=== PATIENT | female | born 1945 | race Caucasian/White ===

== ENCOUNTER → 2018-04-13 10:43 | Outpatient (CLI) | payer OTHER, SELFPAY ==
[2018-04-13 12:12] LABS: Alanine Aminotransferase 25 IU/L (9-52); Albumin Globulin Ratio 1.5 (1.0-2.8); Alkaline Phosphatase 51 U/L (38-126); Aspartate Aminotransferase 46 IU/L (14-36); BUN Creatinine Ratio 25.5 (6-22); Bilirubin Total 0.5 mg/dL (0.2-1.3); Blood Urea Nitrogen 28 mg/dL (7-17); Calcium 9.6 mg/dL (8.4-10.2); Carbon Dioxide 27 mmol/L (22-32); Chloride 100 mmol/L (98-107); Estimated Glomerular Filt Rate 49.1 mL/min (>60); Globulin 2.6 g/dL (1.7-4.1); Glucose 183 mg/dL (80-110); HEMOLYSIS < 15 (0-50); Potassium 4.7 mmol/L (3.4-5.1); Sodium 138 mmol/L (137-145); Total Protein 6.6 g/dL (6.3-8.2)
== END ==
PROVIDERS: PCP Family Medicine; Referring Provider Internal Medicine Rheumatology; Visit Provider Specialist/Technologist Athletic Trainer
DX: M06.09 Rheumatoid arthritis without rheumatoid factor, multiple sites (principal)
CPT/HCPCS: 36415; 80053

== ENCOUNTER → 2018-05-22 10:50 | Outpatient (CLI) | payer OTHER, MEDICARE, SELFPAY ==
[2018-05-22 12:32] LABS: Add Manual Diff / Slide Review NO; Basophils Percent Auto 0.4 % (0-2); Eosinophils Percent Auto 4.6 % (2-4); Hematocrit 35.6 % (36-46); Hemoglobin 11.7 g/dL (12.0-16.0); Lymphocytes Percent Auto 25.4 % (25-40); Mean Corpuscular Hemoglobin 32.3 PG (26-34); Mean Corpuscular Volume 97.7 fL (80-100); Monocytes Percent Auto 9.8 % (3-14); Neutrophils Absolute Auto 2900 /uL (3000-5900); Neutrophils Percent Auto 59.8 % (50-75); Platelet Count 190 X10^3/uL (150-400); Red Blood Cell Count 3.64 X10^6/uL (4.0-5.2); Red Cell Distribution Width 14.1 % (11.6-14.8); White Blood Cell Count 4.9 X10^3/uL (4.5-11.0)
[2018-05-22 12:44] LABS: Hemoglobin A1C% w Est Avg Glu 5.6 % (4.0-6.0)
[2018-05-22 13:01] LABS: Alanine Aminotransferase 30 IU/L (9-52); Albumin 4.1 g/dL (3.5-5.0); Albumin Globulin Ratio 1.6 (1.0-2.8); Alkaline Phosphatase 53 U/L (38-126); Aspartate Aminotransferase 52 IU/L (14-36); BUN Creatinine Ratio 24.2 (6-22); Bilirubin Total 0.4 mg/dL (0.2-1.3); Blood Urea Nitrogen 29 mg/dL (7-17); Calcium 9.5 mg/dL (8.4-10.2); Carbon Dioxide 27 mmol/L (22-32); Chloride 102 mmol/L (98-107); Cholesterol 145 mg/dL (140-199); Estimated Glomerular Filt Rate 44.4 mL/min (>60); Globulin 2.6 g/dL (1.7-4.1); Glucose 167 mg/dL (80-110); HDL Cholesterol 49 mg/dL (40-60); HEMOLYSIS < 15 (0-50); LDL Cholesterol Calculated 65 mg/dL (<100); Potassium 4.4 mmol/L (3.4-5.1); Sodium 137 mmol/L (137-145); Total Protein 6.7 g/dL (6.3-8.2); Triglycerides 154 mg/dL (35-150)
[2018-05-22 13:18] LABS: Free T3, Triiodothyronine Free 2.94 pg/mL (2.77-5.27); Free T4, Direct Thyroxine 1.84 ng/dL (0.78-2.19)
== END ==
PROVIDERS: PCP Family Medicine; Visit Provider Family Medicine
DX: I10 Essential (primary) hypertension (principal); L57.0 Actinic keratosis; E78.5 Hyperlipidemia, unspecified; R80.9 Proteinuria, unspecified; E03.9 Hypothyroidism, unspecified; E11.9 Type 2 diabetes mellitus without complications
CPT/HCPCS: 36415; 80053; 80061; 81001; 83036; 84439; 84481; 85025

== ENCOUNTER → 2018-07-26 10:21 | Outpatient (CLI) | payer OTHER, MEDICARE, SELFPAY ==
[2018-07-26 11:26] LABS: Appearance Urine UA CLEAR; Bilirubin Urine UA NEGATIVE (NEGATIVE); Color Urine UA YELLOW; Glucose Urine UA NEGATIVE (Normal); Ketones Urine UA NEGATIVE (NEGATIVE); Leukocyte Esterase Urine UA NEGATIVE (NEGATIVE); Nitrite Urine UA Negative (Negative); Occult Blood Urine UA NEGATIVE (Negative); Protein Urine UA TRACE (Negative); Specific Gravity Urine UA 1.025 (1.000-1.035); Urobilinogen Urine UA 0.2 E.U./dL (0.2)
[2018-07-26 11:29] LABS: Add Manual Diff / Slide Review NO; Basophils Percent Auto 0.2 % (0-2); Eosinophils Percent Auto 3.7 % (2-4); Hematocrit 37.3 % (36-46); Hemoglobin 12.3 g/dL (12.0-16.0); Lymphocytes Percent Auto 22.9 % (25-40); Mean Corpuscular Hemoglobin 31.7 PG (26-34); Mean Corpuscular Volume 96.1 fL (80-100); Monocytes Percent Auto 9.5 % (3-14); Neutrophils Absolute Auto 2600 /uL (3000-5900); Neutrophils Percent Auto 63.7 % (50-75); Platelet Count 197 X10^3/uL (150-400); Red Blood Cell Count 3.88 X10^6/uL (4.0-5.2); Red Cell Distribution Width 14.2 % (11.6-14.8); White Blood Cell Count 4.1 X10^3/uL (4.5-11.0)
[2018-07-26 11:41] LABS: Erythrocyte Sedimentation Rate 8 MM/HR (0-20)
[2018-07-26 11:47] LABS: Creatinine Urine Random 146.5 mg/dL
[2018-07-26 11:48] LABS: Alanine Aminotransferase 21 IU/L (9-52); Albumin 4.1 g/dL (3.5-5.0); Albumin Globulin Ratio 1.5 (1.0-2.8); Alkaline Phosphatase 42 U/L (38-126); Aspartate Aminotransferase 43 IU/L (14-36); Bilirubin Total 0.4 mg/dL (0.2-1.3); Blood Urea Nitrogen 24 mg/dL (7-17); C-Reactive Protein Quant < 0.5 mg/dL (<1.0); Calcium 9.6 mg/dL (8.4-10.2); Carbon Dioxide 26 mmol/L (22-32); Chloride 104 mmol/L (98-107); Estimated Glomerular Filt Rate 44.4 mL/min (>60); Globulin 2.8 g/dL (1.7-4.1); Glucose 162 mg/dL (80-110); HEMOLYSIS < 15 (0-50); Potassium 4.2 mmol/L (3.4-5.1); Sodium 141 mmol/L (137-145); Total Protein 6.9 g/dL (6.3-8.2)
[2018-07-26 13:49] LABS: Microalbumi Creatinin Ratio Ur 21.8 ug/mg CR (<30); Microalbumin Urine Random 3.2 mg/dL (0-1.6)
== END ==
PROVIDERS: PCP Family Medicine; Visit Provider Specialist/Technologist Athletic Trainer
DX: M06.09 Rheumatoid arthritis without rheumatoid factor, multiple sites (principal); E11.9 Type 2 diabetes mellitus without complications; E78.5 Hyperlipidemia, unspecified; I10 Essential (primary) hypertension
CPT/HCPCS: 36415; 80053; 81003; 82043; 82570; 85025; 85651; 86140

== ENCOUNTER → 2019-01-15 09:43 | Outpatient (CLI) | payer OTHER, MEDICARE, SELFPAY ==
[2019-01-15 10:33] LABS: Add Manual Diff / Slide Review NO; Basophils Absolute Auto 0 /uL (0-100); Basophils Percent Auto 0.3 % (0-2); Eosinophils Absolute Auto 300 /uL (0-450); Eosinophils Percent Auto 7.7 % (2-4); Hematocrit 36.9 % (36-46); Lymphocytes Absolute Auto 1100 /uL (1100-4500); Lymphocytes Percent Auto 27.8 % (25-40); Mean Corpuscular HGB Conc 32.5 % (30-36); Mean Corpuscular Hemoglobin 31.2 PG (26-34); Monocytes Absolute Auto 500 /uL (0-900); Monocytes Percent Auto 11.9 % (3-14); Neutrophils Absolute Auto 2000 /uL (1500-7000); Neutrophils Percent Auto 52.3 % (50-75); Platelet Count 220 X10^3/uL (150-400); Red Blood Cell Count 3.84 X10^6/uL (4.0-5.2); Red Cell Distribution Width 14.6 % (11.6-14.8); White Blood Cell Count 3.9 X10^3/uL (4.5-11.0)
[2019-01-15 10:35] LABS: Hemoglobin A1C% w Est Avg Glu 5.7 % (4.0-6.0)
[2019-01-15 10:50] LABS: Alanine Aminotransferase 28 IU/L (9-52); Albumin Globulin Ratio 1.5 (1.0-2.8); Alkaline Phosphatase 57 U/L (38-126); Aspartate Aminotransferase 41 IU/L (14-36); Bilirubin Total 0.4 mg/dL (0.2-1.3); Blood Urea Nitrogen 22 mg/dL (7-17); Calcium 9.8 mg/dL (8.4-10.2); Carbon Dioxide 25 mmol/L (22-32); Chloride 105 mmol/L (98-107); Cholesterol 140 mg/dL (140-199); Globulin 2.6 g/dL (1.7-4.1); Glucose 155 mg/dL (80-110); HDL Cholesterol 49 mg/dL (40-60); HEMOLYSIS < 15 (0-50); LDL Cholesterol Calculated 56 mg/dL (<100); Potassium 5.5 mmol/L (3.4-5.1); Sodium 140 mmol/L (137-145); Total Protein 6.6 g/dL (6.3-8.2); Triglycerides 175 mg/dL (35-150)
[2019-01-15 11:21] LABS: Thyroid Stimulating Hormone 2.17 uIU/mL (0.47-4.68)
== END ==
PROVIDERS: PCP Family Medicine; Visit Provider Family Medicine
DX: E03.9 Hypothyroidism, unspecified (principal); E11.9 Type 2 diabetes mellitus without complications; E78.5 Hyperlipidemia, unspecified; I10 Essential (primary) hypertension; Z51.81 Encounter for therapeutic drug level monitoring
CPT/HCPCS: 36415; 80053; 80061; 83036; 84443; 85025

== ENCOUNTER → 2019-04-16 09:34 | Outpatient (CLI) | payer OTHER, SELFPAY ==
[2019-04-16 11:12] LABS: Add Manual Diff / Slide Review NO; Basophils Absolute Auto 0 /uL (0-100); Basophils Percent Auto 0.2 % (0-2); Eosinophils Absolute Auto 200 /uL (0-450); Eosinophils Percent Auto 3.4 % (2-4); Hematocrit 36.1 % (36-46); Hemoglobin 11.8 g/dL (12.0-16.0); Lymphocytes Absolute Auto 1300 /uL (1100-4500); Lymphocytes Percent Auto 28.7 % (25-40); Mean Corpuscular HGB Conc 32.6 % (30-36); Mean Corpuscular Hemoglobin 31.9 PG (26-34); Mean Corpuscular Volume 97.8 fL (80-100); Monocytes Absolute Auto 600 /uL (0-900); Monocytes Percent Auto 13.4 % (3-14); Neutrophils Absolute Auto 2400 /uL (1500-7000); Neutrophils Percent Auto 54.3 % (50-75); Platelet Count 192 X10^3/uL (150-400); Red Blood Cell Count 3.69 X10^6/uL (4.0-5.2); White Blood Cell Count 4.4 X10^3/uL (4.5-11.0)
[2019-04-16 11:40] LABS: Hemoglobin A1C% w Est Avg Glu 5.1 % (4.0-6.0)
[2019-04-16 11:44] LABS: Erythrocyte Sedimentation Rate 8 MM/HR (0-20)
[2019-04-16 11:57] LABS: Alanine Aminotransferase 15 IU/L (9-52); Albumin 4.1 g/dL (3.5-5.0); Albumin Globulin Ratio 1.6 (1.0-2.8); Alkaline Phosphatase 53 U/L (38-126); Aspartate Aminotransferase 41 IU/L (14-36); Bilirubin Total 0.5 mg/dL (0.2-1.3); Blood Urea Nitrogen 26 mg/dL (7-17); Carbon Dioxide 24 mmol/L (22-32); Chloride 107 mmol/L (98-107); Estimated Glomerular Filt Rate 40.4 mL/min (>60); Globulin 2.6 g/dL (1.7-4.1); Glucose 145 mg/dL (80-110); HEMOLYSIS < 15 (0-50); Potassium 5.3 mmol/L (3.4-5.1); Sodium 141 mmol/L (137-145); Total Protein 6.7 g/dL (6.3-8.2)
[2019-04-16 11:58] LABS: C-Reactive Protein Quant < 0.5 mg/dL (<1.0)
== END ==
PROVIDERS: Family Provider Family Medicine; PCP Family Medicine; Visit Provider Internal Medicine Rheumatology
DX: M06.09 Rheumatoid arthritis without rheumatoid factor, multiple sites (principal); E11.9 Type 2 diabetes mellitus without complications; I10 Essential (primary) hypertension
CPT/HCPCS: 36415; 80053; 83036; 85025; 85651; 86140

== ENCOUNTER 2019-05-28 08:39 | Emergency (ER) | payer OTHER, SELFPAY ==
--- NOTE | 2019-05-28 08:52 | ED.BACK ---
HPI - Back Pain/Injury General Chief Complaint: Back Pain/Injury Stated Complaint: back pain Time Seen by Provider: 05/28/19 08:40 Source: patient and family Mode of arrival: ambulatory Limitations: no limitations History of Present Illness HPI Narrative: 73-year-old female nonsmoker with history of back trouble presents with about a week of gradually worsening right lower lumbar pain with radiation to her right hip. She denies any trauma but states she frequently injured herself when wrestling her special needs child. She denies any numbness, tingling or extremity weakness. She denies any fever or chills. She takes no blood thinner. She has had lumbar surgeries in the past up at [facility] Complaint: back pain Onset (ago): day(s) Duration: constant Similar Symptoms Previously: Yes Location: lumbar spine Severity: severe Quality: sharp and aching Radiation: right leg Related Data Home Medications Medication Instructions Recorded Confirmed cranberry 1 cap PO BID #0 10/04/11 05/08/19 multivitamin 1 tab PO DAILY #0 10/04/11 05/28/19 Probiotic 1 cap PO DAILY #0 01/15/13 05/08/19 aspirin 81 mg PO DAILY #0 03/19/13 05/08/19 Imodium A-D 1 dose PO PRN PRN #0 07/04/17 05/08/19 cholecalciferol (vitamin D3) 2,000 units PO DAILY #0 07/04/17 05/08/19 [Vitamin D3] leflunomide 20 mg PO QDAY #0 07/04/17 05/28/19 sulfasalazine 1,500 mg PO BID #0 07/04/17 05/28/19 acetaminophen 500 mg tablet 500 mg PO Q6H PRN 11/20/18 05/28/19 leflunomide 10 mg tablet 10 mg PO DAILY 02/05/19 05/28/19 *B-D 3ML SYRINGE 1 ea MISCELLANEOUS SEE INSTRUCTIONS 05/28/19 05/28/19 atorvastatin [Lipitor] 10 mg PO BEDTIME 05/28/19 05/28/19 ciprofloxacin HCl [Cipro] 500 mg PO BEDTIME 05/28/19 05/28/19 fenofibrate 160 mg PO DAILY 05/28/19 05/28/19 gabapentin 300 mg PO BEDTIME 05/28/19 05/28/19 levothyroxine [Synthroid] 75 mcg PO DAILY 05/28/19 05/28/19 losartan 100 mg PO DAILY 05/28/19 05/28/19 nystatin 1 raymond TOPICAL DAILY 05/28/19 05/28/19 tofacitinib [Xeljanz] 10 mg PO DAILY 05/28/19 Previous Rx's Medication Instructions Recorded glucose test strips #100 each 11/28/18 albuterol sulfate HFA 90 2 puff INHALATION QID #8.5 gram 02/19/19 mcg/actuation aerosol inhaler fluticasone propionate 44 1 inhalation INHALATION BID #10.6 02/19/19 mcg/actuation HFA aerosol inhaler gram oxybutynin chloride 5 mg tablet 5 mg PO BID #180 tab 02/19/19 trazodone 50 mg tablet 50 mg PO BEDTIME PRN #30 tab 05/08/19 glipizide 10 mg tablet 5 mg PO DAILY #30 tab 05/27/19 metformin ER 500 mg 500 mg PO BID #60 tab 05/27/19 tablet,extended release 24 hr diazepam [Valium] 5 mg PO BID-QID PRN #10 tab 05/28/19 hydrocodone-acetaminophen 1 tab PO Q4-6H PRN #20 tab 05/28/19 ondansetron 4 mg PO TID-QID PRN #10 tab 05/28/19 Allergies Allergy/AdvReac Type Severity Reaction Status Date / Time All ocean foods Allergy Severe Hives, Uncoded 05/28/19 08:56 throat swelling FISH PROTEIN Allergy Mild Uncoded 05/28/19 08:56 Shellfish Allergy Unknown HIVES,THROAT Uncoded 05/28/19 08:56 SWELLIN TRAMADOL Allergy Unknown VOMITING Uncoded 05/28/19 08:56 PENICILLIN AdvReac Mild family has Uncoded 05/28/19 08:56 had issues with penicillin Review of Systems Constitutional Denies chills, Denies fever(s), Denies lethargy and Denies weakness Eyes Denies change in vision, Denies eye discharge, Denies irritation and Denies loss of vision ENT Ears, Nose, Mouth, and Throat: Denies change in voice, Denies neck pain and Denies sore throat Cardiovascular Denies chest pain, Denies irregular heart rhythm, Denies lightheadedness, Denies palpitations, Denies dyspnea, Denies dyspnea on exertion and Denies orthopnea Respiratory Denies cough, Denies dyspnea, Denies dyspnea on exertion and Denies wheezing Gastrointestinal Gastrointestinal: Denies abdominal pain, Denies change in bowel habits, Denies diarrhea, Denies nausea and Denies vomiting Genitourinary Denies hematuria, Denies flank pain, Denies urinary incontinence and Denies urinary urgency Musculoskeletal Reports abnormal gait, Reports back pain and Denies neck pain Integumentary/Breasts Denies pruritus, Denies erythema, Denies rash and Denies wounds Neurologic Reports abnormal gait, Denies confusion, Denies loss of vision and Denies weakness Psychiatric Denies anxiety, Denies confusion, Denies depression, Denies homicidal ideation and Denies suicidal ideation Endocrine Denies palpitations Hematologic/Lymphatic Denies easy bruising Allergic/Immunologic Denies wheezing [facility] Medical History Chronic back pain (Chronic Unknown) Hyperlipemia (Chronic Unknown) Hypertension (Chronic Unknown) Hypothyroidism (Chronic Unknown) Kidney disease (Chronic Unknown) Migraines (Chronic Unknown) Neuropathy (Chronic Unknown) Rheumatoid arthritis (Chronic Unknown) Carpal tunnel syndrome (Resolved Unknown) Chickenpox (Resolved Unknown) Colon polyps (Resolved Unknown) Measles (Resolved Unknown) Mumps (Resolved Unknown) Skin cancer (Resolved Unknown) Surgical History History of arthroscopy of right shoulder (Resolved 07/2012) History of carpal tunnel surgery (Resolved 1981) History of lumbar surgery (Resolved Unknown) Hx of appendectomy (Resolved 03/2017) Hx of cholecystectomy (Resolved 1983) Hx of hernia repair (Resolved 04/2011) Hx of laparoscopy (Resolved 03/2017) Hx of lithotripsy (Resolved ~03/2017) Hx of tubal ligation (Resolved 1976) Family History (Updated 08/08/17 @ 00:00 by Conversion Provider) Father Diabetes mellitus Mother Mental health problem Sister Cancer Brother No problems noted. Social History Smoking Status: Never smoker alcohol intake: current (Occasional) Family History Father Diabetes mellitus Mother Mental health problem Sister Cancer Brother No problems noted. Social History (Reviewed 05/28/19 @ 11:06 by PATRIC Ovalle Smoking Status: Never smoker alcohol intake: current (Occasional) Exam Narrative Exam Narrative: GENERAL: 73-year-old female appears stated age, obviously uncomfortable with antalgic gait, using her cane HEAD: Atraumatic. Normocephalic. No temporal or scalp tenderness. EYES: Pupils equal round and reactive. Extraocular motions intact. No scleral icterus. No injection or drainage. ENT: Nose without bleeding, purulent drainage or septal hematoma. Throat without erythema, tonsillar hypertrophy or exudate. Uvula midline. Airway patent. NECK: Trachea midline. No JVD or lymphadenopathy. Supple, nontender, no meningeal signs. CARDIOVASCULAR: Regular rate and rhythm without murmurs, gallops, or rubs. RESPIRATORY: Clear to auscultation. Breath sounds equal bilaterally. No wheezes, rales, or rhonchi. GASTROINTESTINAL: Abdomen soft, non-tender, nondistended. No hepato-splenomegaly, or palpable masses. No guarding. EXTREMITIES: No clubbing, cyanosis, or edema. No joint tenderness, effusion, or edema noted. BACK: reproduceable tenderness to palpation, no erythema, crepitus, warmth or induration NEURO: AOx3. Normal sensation, strength 5/5, no saddle anesthesia, patellar reflex is 1+ bilaterally SKIN: No rash or erythema. Initial Vital Signs Initial Vital Signs: Vital Signs Temperature 97.3 F L 05/28/19 08:57 Pulse Rate 107 H 05/28/19 08:57 Respiratory Rate 18 05/28/19 08:57 Blood Pressure 203/83 H 05/28/19 08:57 Pulse Oximetry 95 05/28/19 08:57 Course Orders Ordered: ED Orders 05/28/19 09:17 MR lumbar spine wo con Stat Discontinued Medications Lorazepam (Ativan) 1 mg IM NOW ONE Stop: 05/28/19 09:18 Last Admin: 05/28/19 09:31 Dose: 1 mg Vital Signs - 8 hr 05/28/19 08:57 05/28/19 10:32 Temperature 97.3 F L Pulse Rate 107 H 95 H Respiratory Rate 18 18 Blood Pressure 203/83 H Blood Pressure [Right Arm] 145/50 H Pulse Oximetry 95 94 MDM - Back Pain/Injury Imaging Data MRI - lumbar: Radiologist's impression: [address] [address] Magnetic Resonance Report Signed Patient: Shirin Manzanares LMR#: [id number] : 7Acct:[id number] Age/Sex: 73 / FDate of Service: 05/28/19 Loc: ED Accession Number: [id number] Procedure: MR lumbar spine wo con Ordering Provider: Bennie Rodriguez D.O. PROCEDURE: MR LUMBAR SPINE WO CON INDICATIONS: severe pain, hx surgery, loss bowel TECHNIQUE: Noncontrast sagittal T1 spin echo and T2 fast echo, sagittal STIR, axial T1 and T2 fast spin echo through the lumbar spine. In cases with scoliosis, additional coronal T2 fast spin echo may be performed. COMPARISON: [facility], MR, L-SPINE WITHOUT CONTRAST, 02/05/2013, 14:05. [facility], CT, CT ABDOMEN PELVIS WITHOUT CONTRAST, 02/15/2018, 12:18. FINDINGS: Image quality: Excellent. Alignment and Curvature: There is straightening of normal lumbar lordosis. Bone Marrow: Patient is status post transpedicular fusion and laminectomy at L4-5 level with intervertebral spacer placement and partial bony union at this level. There is no gross marrow edema. No acute compression fracture. Spinal Cord: Conus medullaris terminates at the L1 level. Visualized cord demonstrates normal signal and size. Paraspinous Soft Tissues: No paravertebral masses. L1-L2: There is significant loss of intervertebral disc space. Central to right-sided disc herniation and extrusion is seen. Bilateral facet arthrosis is also noted. There is mild central canal stenosis and moderate to severe right-sided neuroforaminal narrowing. There is compression of the exiting right L1 nerve root. L2-L3: Near-complete loss of intervertebral disc space and degenerative end plate changes are seen. Broad-based disc bulge and bilateral facet arthrosis is seen. There is moderate central canal stenosis and moderate to severe bilateral neuroforaminal narrowing. There is compression of bilateral exiting L2 nerve roots. L3-L4: Significant loss of intervertebral disc height is seen with degenerative endplate changes. Broad-based disc bulge and bilateral facet arthrosis is seen. Superimposed left lateral disc herniation is noted causing mild central canal stenosis and severe left-sided neuroforaminal narrowing. There is compression of exiting left L3 nerve root. L4-L5: Partial bony union is noted. Bilateral facet arthrosis is seen. No significant central canal stenosis L5-S1: Mild diffuse disc bulge and bilateral facet arthrosis is seen. Left lateral disc herniation is also noted with mild to moderate left-sided neuroforaminal narrowing and likely compression of left exiting L5 nerve root. IMPRESSION: 1. Post-fusion changes at L4-5 level. No acute compression fracture or spondylolisthesis. No gross marrow edema. 2. Extensive degenerative disc bulge and bilateral facet arthrosis throughout lumbar spine causing [id number] central canal stenosis and moderate to severe bilateral neuroforaminal narrowing as described in detail above. Dictated by: Jacinto Rodriguez M.D. on 05/28/2019 at 10:19 Approved by: Jacinto Rodriguez M.D. on 05/28/2019 at 10:52 Discharge Plan Departure Patient Disposition: Home Clinical Impression: Strain of lumbar region, Central stenosis of spinal canal Instructions: DI for Low Back Pain Activity Restrictions/Additional Instructions: *You have been diagnosed with [ acute on chronic back pain. MRI shows multiple areas of discs causing trouble ] *What to do: *Take medications as directed *Follow up with your primary care provider in 2-3 days, call for an appointment. Let them know you were seen in the Emergency Department and that we ask that you be seen in follow up. Additionally, you have been given contact info for [facility] *Return to ER if you should have any new, worsening or concerning symptoms, such as [increasing pain, fever, weakness of the extremities, loss of control of bowel or bladder for, other bothersome symptoms] Prescriptions: New hydrocodone-acetaminophen 5-325 mg tablet 1 tab PO Q4-6H PRN (Reason: pain) Qty: 20 RF: 0 ondansetron 4 mg tablet,disintegrating 4 mg PO TID-QID PRN (Reason: nausea and vomiting) Qty: 10 RF: 0 diazepam [Valium] 5 mg tablet 5 mg PO BID-QID PRN (Reason: muscle spasm) Qty: 10 RF: 0 No Action acetaminophen [Tylenol Extra Strength] 500 mg tablet 500 mg PO Q6H PRN (Reason: pain) RF: 0 leflunomide 10 mg tablet 10 mg PO DAILY RF: 0 cranberry 1 cap PO BID Qty: 0 RF: 0 multivitamin Tablet 1 tab PO DAILY Qty: 0 RF: 0 Probiotic 1 cap PO DAILY Qty: 0 RF: 0 aspirin 81 MG tablet,delayed release (DR/EC) 81 mg PO DAILY Qty: 0 RF: 0 Imodium A-D 1 dose PO PRN PRN (Reason: Diarrhea) Qty: 0 RF: 0 cholecalciferol (vitamin D3) [Vitamin D3] 2,000 unit Capsule 2,000 units PO DAILY Qty: 0 RF: 0 sulfasalazine 500 MG tablet 1,500 mg PO BID Qty: 0 RF: 0 leflunomide 20 MG tablet 20 mg PO QDAY Qty: 0 RF: 0 glucose test strips Qty: 100 RF: 3 albuterol sulfate [ProAir HFA] 90 mcg/actuation HFA aerosol inhaler 2 puff INHALATION QID Qty: 8.5 RF: 3 Flovent HFA 44 mcg/actuation HFA aerosol inhaler 1 inhalation INHALATION BID Qty: 10.6 RF: 3 oxybutynin chloride 5 mg tablet 5 mg PO BID Qty: 180 RF: 1 glipizide 10 mg tablet 5 mg PO DAILY Qty: 30 RF: 5 metformin [Glucophage XR] 500 mg tablet extended release 24 hr 500 mg PO BID Qty: 60 RF: 5 trazodone 50 mg tablet 50 mg PO BEDTIME PRN (Reason: insomnia) Qty: 30 RF: 5 Xeljanz 10 mg Tablet 10 mg PO DAILY RF: 0 atorvastatin [Lipitor] 10 mg tablet 10 mg PO BEDTIME RF: 0 ciprofloxacin HCl [Cipro] 500 mg tablet 500 mg PO BEDTIME RF: 0 levothyroxine [Synthroid] 75 mcg tablet 75 mcg PO DAILY RF: 0 gabapentin 300 mg capsule 300 mg PO BEDTIME RF: 0 losartan 100 mg tablet 100 mg PO DAILY RF: 0 fenofibrate 160 mg tablet 160 mg PO DAILY RF: 0 *B-D 3ML SYRINGE 1 SYR 1 ea miscellaneous SEE INSTRUCTIONS RF: 0 nystatin 30 GM cream 1 raymond Topical DAILY RF: 0 Referrals: Aleena Robins DO [Primary Care Provider] - Iggy Mallory DO [Physician] - Osvaldo Gould MD [Physician] -
[2019-05-28 08:57] VITALS: BP 203/83; PULSE 107; RESP 18; TEMP 36.3; O2SAT 95; BMI 33.2
--- NOTE | 2019-05-28 09:17 | DI.MRI.S_ITS ---
PROCEDURE: MR LUMBAR SPINE WO CON INDICATIONS: severe pain, hx surgery, loss bowel TECHNIQUE: Noncontrast sagittal T1 spin echo and T2 fast echo, sagittal STIR, axial T1 and T2 fast spin echo through the lumbar spine. In cases with scoliosis, additional coronal T2 fast spin echo may be performed. COMPARISON: [facility], MR, L-SPINE WITHOUT CONTRAST, 02/05/2013, 14:05. [facility], CT, CT ABDOMEN PELVIS WITHOUT CONTRAST, 02/15/2018, 12:18. FINDINGS: Image quality: Excellent. Alignment and Curvature: There is straightening of normal lumbar lordosis. Bone Marrow: Patient is status post transpedicular fusion and laminectomy at L4-5 level with intervertebral spacer placement and partial bony union at this level. There is no gross marrow edema. No acute compression fracture. Spinal Cord: Conus medullaris terminates at the L1 level. Visualized cord demonstrates normal signal and size. Paraspinous Soft Tissues: No paravertebral masses. L1-L2: There is significant loss of intervertebral disc space. Central to right-sided disc herniation and extrusion is seen. Bilateral facet arthrosis is also noted. There is mild central canal stenosis and moderate to severe right-sided neuroforaminal narrowing. There is compression of the exiting right L1 nerve root. L2-L3: Near-complete loss of intervertebral disc space and degenerative end plate changes are seen. Broad-based disc bulge and bilateral facet arthrosis is seen. There is moderate central canal stenosis and moderate to severe bilateral neuroforaminal narrowing. There is compression of bilateral exiting L2 nerve roots. L3-L4: Significant loss of intervertebral disc height is seen with degenerative endplate changes. Broad-based disc bulge and bilateral facet arthrosis is seen. Superimposed left lateral disc herniation is noted causing mild central canal stenosis and severe left-sided neuroforaminal narrowing. There is compression of exiting left L3 nerve root. L4-L5: Partial bony union is noted. Bilateral facet arthrosis is seen. No significant central canal stenosis L5-S1: Mild diffuse disc bulge and bilateral facet arthrosis is seen. Left lateral disc herniation is also noted with mild to moderate left-sided neuroforaminal narrowing and likely compression of left exiting L5 nerve root. IMPRESSION: 1. Post-fusion changes at L4-5 level. No acute compression fracture or spondylolisthesis. No gross marrow edema. 2. Extensive degenerative disc bulge and bilateral facet arthrosis throughout lumbar spine causing [id number] central canal stenosis and moderate to severe bilateral neuroforaminal narrowing as described in detail above. Dictated by: Jacinto Rodriguez M.D. on 05/28/2019 at 10:19 Approved by: Jacinto Rodriguez M.D. on 05/28/2019 at 10:52
--- NOTE | 2019-05-28 09:21 | ED_ITS ---
HPI - Back Pain/Injury General Chief Complaint: Back Pain/Injury Stated Complaint: back pain Time Seen by Provider: 05/28/19 08:40 Source: patient and family Mode of arrival: ambulatory Limitations: no limitations History of Present Illness HPI Narrative: 73-year-old female nonsmoker with history of back trouble presents with about a week of gradually worsening right lower lumbar pain with radiation to her right hip. She denies any trauma but states she frequently injured herself when wrestling her special needs child. She denies any numbness, tingling or extremity weakness. She denies any fever or chills. She takes no blood thinner. She has had lumbar surgeries in the past up at [facility] Complaint: back pain Onset (ago): day(s) Duration: constant Similar Symptoms Previously: Yes Location: lumbar spine Severity: severe Quality: sharp and aching Radiation: right leg Related Data Home Medications Medication Instructions Recorded Confirmed cranberry 1 cap PO BID #0 10/04/11 05/08/19 multivitamin 1 tab PO DAILY #0 10/04/11 05/28/19 Probiotic 1 cap PO DAILY #0 01/15/13 05/08/19 aspirin 81 mg PO DAILY #0 03/19/13 05/08/19 Imodium A-D 1 dose PO PRN PRN #0 07/04/17 05/08/19 cholecalciferol (vitamin D3) 2,000 units PO DAILY #0 07/04/17 05/08/19 [Vitamin D3] leflunomide 20 mg PO QDAY #0 07/04/17 05/28/19 sulfasalazine 1,500 mg PO BID #0 07/04/17 05/28/19 acetaminophen 500 mg tablet 500 mg PO Q6H PRN 11/20/18 05/28/19 leflunomide 10 mg tablet 10 mg PO DAILY 02/05/19 05/28/19 *B-D 3ML SYRINGE 1 ea MISCELLANEOUS SEE INSTRUCTIONS 05/28/19 05/28/19 atorvastatin [Lipitor] 10 mg PO BEDTIME 05/28/19 05/28/19 ciprofloxacin HCl [Cipro] 500 mg PO BEDTIME 05/28/19 05/28/19 fenofibrate 160 mg PO DAILY 05/28/19 05/28/19 gabapentin 300 mg PO BEDTIME 05/28/19 05/28/19 levothyroxine [Synthroid] 75 mcg PO DAILY 05/28/19 05/28/19 losartan 100 mg PO DAILY 05/28/19 05/28/19 nystatin 1 raymond TOPICAL DAILY 05/28/19 05/28/19 tofacitinib [Xeljanz] 10 mg PO DAILY 05/28/19 Previous Rx's Medication Instructions Recorded glucose test strips #100 each 11/28/18 albuterol sulfate HFA 90 2 puff INHALATION QID #8.5 gram 02/19/19 mcg/actuation aerosol inhaler fluticasone propionate 44 1 inhalation INHALATION BID #10.6 02/19/19 mcg/actuation HFA aerosol inhaler gram oxybutynin chloride 5 mg tablet 5 mg PO BID #180 tab 02/19/19 trazodone 50 mg tablet 50 mg PO BEDTIME PRN #30 tab 05/08/19 glipizide 10 mg tablet 5 mg PO DAILY #30 tab 05/27/19 metformin ER 500 mg 500 mg PO BID #60 tab 05/27/19 tablet,extended release 24 hr diazepam [Valium] 5 mg PO BID-QID PRN #10 tab 05/28/19 hydrocodone-acetaminophen 1 tab PO Q4-6H PRN #20 tab 05/28/19 ondansetron 4 mg PO TID-QID PRN #10 tab 05/28/19 Allergies Allergy/AdvReac Type Severity Reaction Status Date / Time All ocean foods Allergy Severe Hives, Uncoded 05/28/19 08:56 throat swelling FISH PROTEIN Allergy Mild Uncoded 05/28/19 08:56 Shellfish Allergy Unknown HIVES,THROAT Uncoded 05/28/19 08:56 SWELLIN TRAMADOL Allergy Unknown VOMITING Uncoded 05/28/19 08:56 PENICILLIN AdvReac Mild family has Uncoded 05/28/19 08:56 had issues with penicillin Review of Systems Constitutional Denies chills, Denies fever(s), Denies lethargy and Denies weakness Eyes Denies change in vision, Denies eye discharge, Denies irritation and Denies loss of vision ENT Ears, Nose, Mouth, and Throat: Denies change in voice, Denies neck pain and De nies sore throat Cardiovascular Denies chest pain, Denies irregular heart rhythm, Denies lightheadedness, Denies palpitations, Denies dyspnea, Denies dyspnea on exertion and Denies orthopnea Respiratory Denies cough, Denies dyspnea, Denies dyspnea on exertion and Denies wheezing Gastrointestinal Gastrointestinal: Denies abdominal pain, Denies change in bowel habits, Denies diarrhea, Denies nausea and Denies vomiting Genitourinary Denies hematuria, Denies flank pain, Denies urinary incontinence and Denies urinary urgency Musculoskeletal Reports abnormal gait, Reports back pain and Denies neck pain Integumentary/Breasts Denies pruritus, Denies erythema, Denies rash and Denies wounds Neurologic Reports abnormal gait, Denies confusion, Denies loss of vision and Denies weakness Psychiatric Denies anxiety, Denies confusion, Denies depression, Denies homicidal ideation and Denies suicidal ideation Endocrine Denies palpitations Hematologic/Lymphatic Denies easy bruising Allergic/Immunologic Denies wheezing [facility] Medical History Chronic back pain (Chronic Unknown) Hyperlipemia (Chronic Unknown) Hypertension (Chronic Unknown) Hypothyroidism (Chronic Unknown) Kidney disease (Chronic Unknown) Migraines (Chronic Unknown) Neuropathy (Chronic Unknown) Rheumatoid arthritis (Chronic Unknown) Carpal tunnel syndrome (Resolved Unknown) Chickenpox (Resolved Unknown) Colon polyps (Resolved Unknown) Measles (Resolved Unknown) Mumps (Resolved Unknown) Skin cancer (Resolved Unknown) Surgical History History of arthroscopy of right shoulder (Resolved 07/2012) History of carpal tunnel surgery (Resolved 1981) History of lumbar surgery (Resolved Unknown) Hx of appendectomy (Resolved 03/2017) Hx of cholecystectomy (Resolved 1983) Hx of hernia repair (Resolved 04/2011) Hx of laparoscopy (Resolved 03/2017) Hx of lithotripsy (Resolved ~03/2017) Hx of tubal ligation (Resolved 1976) Family History (Updated 08/08/17 @ 00:00 by Conversion Provider) Father Diabetes mellitus Mother Mental health problem Sister Cancer Brother No problems noted. Social History Smoking Status: Never smoker alcohol intake: current (Occasional) Family History Father Diabetes mellitus Mother Mental health problem Sister Cancer Brother No problems noted. Social History (Reviewed 05/28/19 @ 11:06 by PATRIC Ovalle Smoking Status: Never smoker alcohol intake: current (Occasional) Exam Narrative Exam Narrative: GENERAL: 73-year-old female appears stated age, obviously uncomfortable with antalgic gait, using her cane HEAD: Atraumatic. Normocephalic. No temporal or scalp tenderness. EYES: Pupils equal round and reactive. Extraocular motions intact. No scleral icterus. No injection or drainage. ENT: Nose without bleeding, purulent drainage or septal hematoma. Throat without erythema, tonsillar hypertrophy or exudate. Uvula midline. Airway patent. NECK: Trachea midline. No JVD or lymphadenopathy. Supple, nontender, no meningeal signs. CARDIOVASCULAR: Regular rate and rhythm without murmurs, gallops, or rubs. RESPIRATORY: Clear to auscultation. Breath sounds equal bilaterally. No wheezes, rales, or rhonchi. GASTROINTESTINAL: Abdomen soft, non-tender, nondistended. No hepato- splenomegaly, or palpable masses. No guarding. EXTREMITIES: No clubbing, cyanosis, or edema. No joint tenderness, effusion, or edema noted. BACK: reproduceable tenderness to palpation, no erythema, crepitus, warmth or induration NEURO: AOx3. Normal sensation, strength 5/5, no saddle anesthesia, patellar reflex is 1+ bilaterally SKIN: No rash or erythema. Initial Vital Signs Initial Vital Signs: Vital Signs Temperature 97.3 F L 05/28/19 08:57 Pulse Rate 107 H 05/28/19 08:57 Respiratory Rate 18 05/28/19 08:57 Blood Pressure 203/83 H 05/28/19 08:57 Pulse Oximetry 95 05/28/19 08:57 Course Orders Ordered: ED Orders 05/28/19 09:17 MR lumbar spine wo con Stat Discontinued Medications Lorazepam (Ativan) 1 mg IM NOW ONE Stop: 05/28/19 09:18 Last Admin: 05/28/19 09:31 Dose: 1 mg Vital Signs - 8 hr 05/28/19 08:57 05/28/19 10:32 Temperature 97.3 F L Pulse Rate 107 H 95 H Respiratory Rate 18 18 Blood Pressure 203/83 H Blood Pressure [Right Arm] 145/50 H Pulse Oximetry 95 94 MDM - Back Pain/Injury Imaging Data MRI - lumbar: Radiologist's impression: [address] [place] [address] Magnetic Resonance Report Signed Patient: Shirin Manzanares LMR#: [id number] : 7Acct:[id number] Age/Sex: 73 / FDate of Service: 05/28/19 Loc: ED Accession Number: [id number] Procedure: MR lumbar spine wo con Ordering Provider: Bennie Rodriguez D.O. PROCEDURE: MR LUMBAR SPINE WO CON INDICATIONS: severe pain, hx surgery, loss bowel TECHNIQUE: Noncontrast sagittal T1 spin echo and T2 fast echo, sagittal STIR, axial T1 and T2 fast spin echo through the lumbar spine. In cases with scoliosis, additional coronal T2 fast spin echo may be performed. COMPARISON: [facility], MR, L-SPINE WITHOUT CONTRAST, 02/05/2013, 14:05. [facility], CT, CT ABDOMEN PELVIS WITHOUT CONTRAST, 02/15/2018, 12:18. FINDINGS: Image quality: Excellent. Alignment and Curvature: There is straightening of normal lumbar lordosis. Bone Marrow: Patient is status post transpedicular fusion and laminectomy at L4-5 level with intervertebral spacer placement and partial bony union at this level. There is no gross marrow edema. No acute compression fracture. Spinal Cord: Conus medullaris terminates at the L1 level. Visualized cord demonstrates normal signal and size. Paraspinous Soft Tissues: No paravertebral masses. L1-L2: There is significant loss of intervertebral disc space. Central to right- sided disc herniation and extrusion is seen. Bilateral facet arthrosis is also noted. There is mild central canal stenosis and moderate to severe right-sided neuroforaminal narrowing. There is compression of the exiting right L1 nerve root. L2-L3: Near-complete loss of intervertebral disc space and degenerative end plate changes are seen. Broad-based disc bulge and bilateral facet arthrosis is seen. There is moderate central canal stenosis and moderate to severe bilateral neuroforaminal narrowing. There is compression of bilateral exiting L2 nerve roots. L3-L4: Significant loss of intervertebral disc height is seen with degenerative endplate changes. Broad-based disc bulge and bilateral facet arthrosis is seen. Superimposed left lateral disc herniation is noted causing mild central canal stenosis and severe left-sided neuroforaminal narrowing. There is compression of exiting left L3 nerve root. L4-L5: Partial bony union is noted. Bilateral facet arthrosis is seen. No significant central canal stenosis L5-S1: Mild diffuse disc bulge and bilateral facet arthrosis is seen. Left lateral disc herniation is also noted with mild to moderate left-sided neuroforaminal narrowing and likely compression of left exiting L5 nerve root. IMPRESSION: 1. Post-fusion changes at L4-5 level. No acute compression fracture or spondylolisthesis. No gross marrow edema. 2. Extensive degenerative disc bulge and bilateral facet arthrosis throughout lumbar spine causing [id number] central canal stenosis and moderate to severe bilateral neuroforaminal narrowing as described in detail above. Dictated by: Jacinto Rodriguez M.D. on 05/28/2019 at 10:19 Approved by: Jacinto Rodriguez M.D. on 05/28/2019 at 10:52 Discharge Plan Departure Patient Disposition: Home Clinical Impression: Strain of lumbar region, Central stenosis of spinal canal Instructions: DI for Low Back Pain Activity Restrictions/Additional Instructions: *You have been diagnosed with [ acute on chronic back pain. MRI shows multiple areas of discs causing trouble ] *What to do: *Take medications as directed *Follow up with your primary care provider in 2-3 days, call for an appointment. Let them know you were seen in the Emergency Department and that we ask that you be seen in follow up. Additionally, you have been given contact info for [facility] *Return to ER if you should have any new, worsening or concerning symptoms, such as [increasing pain, fever, weakness of the extremities, loss of control of bowel or bladder for, other bothersome symptoms] Prescriptions: New hydrocodone-acetaminophen 5-325 mg tablet 1 tab PO Q4-6H PRN (Reason: pain) Qty: 20 RF: 0 ondansetron 4 mg tablet,disintegrating 4 mg PO TID-QID PRN (Reason: nausea and vomiting) Qty: 10 RF: 0 diazepam [Valium] 5 mg tablet 5 mg PO BID-QID PRN (Reason: muscle spasm) Qty: 10 RF: 0 No Action acetaminophen [Tylenol Extra Strength] 500 mg tablet 500 mg PO Q6H PRN (Reason: pain) RF: 0 leflunomide 10 mg tablet 10 mg PO DAILY RF: 0 cranberry 1 cap PO BID Qty: 0 RF: 0 multivitamin Tablet 1 tab PO DAILY Qty: 0 RF: 0 Probiotic 1 cap PO DAILY Qty: 0 RF: 0 aspirin 81 MG tablet,delayed release (DR/EC) 81 mg PO DAILY Qty: 0 RF: 0 Imodium A-D 1 dose PO PRN PRN (Reason: Diarrhea) Qty: 0 RF: 0 cholecalciferol (vitamin D3) [Vitamin D3] 2,000 unit Capsule 2,000 units PO DAILY Qty: 0 RF: 0 sulfasalazine 500 MG tablet 1,500 mg PO BID Qty: 0 RF: 0 leflunomide 20 MG tablet 20 mg PO QDAY Qty: 0 RF: 0 glucose test strips Qty: 100 RF: 3 albuterol sulfate [ProAir HFA] 90 mcg/actuation HFA aerosol inhaler 2 puff INHALATION QID Qty: 8.5 RF: 3 Flovent HFA 44 mcg/actuation HFA aerosol inhaler 1 inhalation INHALATION BID Qty: 10.6 RF: 3 oxybutynin chloride 5 mg tablet 5 mg PO BID Qty: 180 RF: 1 glipizide 10 mg tablet 5 mg PO DAILY Qty: 30 RF: 5 metformin [Glucophage XR] 500 mg tablet extended release 24 hr 500 mg PO BID Qty: 60 RF: 5 trazodone 50 mg tablet 50 mg PO BEDTIME PRN (Reason: insomnia) Qty: 30 RF: 5 Xeljanz 10 mg Tablet 10 mg PO DAILY RF: 0 atorvastatin [Lipitor] 10 mg tablet 10 mg PO BEDTIME RF: 0 ciprofloxacin HCl [Cipro] 500 mg tablet 500 mg PO BEDTIME RF: 0 levothyroxine [Synthroid] 75 mcg tablet 75 mcg PO DAILY RF: 0 gabapentin 300 mg capsule 300 mg PO BEDTIME RF: 0 losartan 100 mg tablet 100 mg PO DAILY RF: 0 fenofibrate 160 mg tablet 160 mg PO DAILY RF: 0 *B-D 3ML SYRINGE 1 SYR 1 ea miscellaneous SEE INSTRUCTIONS RF: 0 nystatin 30 GM cream 1 raymond Topical DAILY RF: 0 Referrals: Aleena Robins DO [Primary Care Provider] - Iggy Mallory DO [Physician] - Osvaldo Gould MD [Physician] -
[2019-05-28] MEDS: LORazepam 2 MG/ML INJ 1 MG IM (09:31)
--- NOTE | 2019-05-28 09:50 | PC.NURSE ---
Pt to MRI at 09
[2019-05-28 10:32] VITALS: BP 145/50; PULSE 95; RESP 18; O2SAT 94
[2019-05-28 11:30] VITALS: BP 151/65; PULSE 85; RESP 16; O2SAT 94
== END 2019-05-28 11:49 | disposition home or self-care (01) ==
PROVIDERS: Emergency Provider Emergency Medicine; Family Provider Family Medicine; PCP Family Medicine
DX: S39.012A Strain of muscle, fascia and tendon of lower back, initial encounter (principal); M48.00 Spinal stenosis, site unspecified
CPT/HCPCS: 72148; 96372; 99283; 99284; J2060

== ENCOUNTER → 2019-07-15 10:28 | Outpatient (CLI) | payer OTHER, SELFPAY ==
[2019-07-15 12:09] LABS: Add Manual Diff / Slide Review NO; Basophils Absolute Auto 0 /uL (0-100); Basophils Percent Auto 0.7 % (0-2); Eosinophils Absolute Auto 200 /uL (0-450); Eosinophils Percent Auto 5.3 % (2-4); Hematocrit 36.6 % (36-46); Hemoglobin 12.3 g/dL (12.0-16.0); Lymphocytes Absolute Auto 1000 /uL (1100-4500); Lymphocytes Percent Auto 21.8 % (25-40); Mean Corpuscular HGB Conc 33.7 % (30-36); Mean Corpuscular Hemoglobin 32.3 PG (26-34); Mean Corpuscular Volume 95.9 fL (80-100); Monocytes Absolute Auto 500 /uL (0-900); Neutrophils Absolute Auto 2900 /uL (1500-7000); Neutrophils Percent Auto 62.2 % (50-75); Platelet Count 215 X10^3/uL (150-400); Red Blood Cell Count 3.82 X10^6/uL (4.0-5.2); Red Cell Distribution Width 14.1 % (11.6-14.8); White Blood Cell Count 4.7 X10^3/uL (4.5-11.0)
[2019-07-15 12:14] LABS: Hemoglobin A1C% w Est Avg Glu 5.5 % (4.0-6.0)
[2019-07-15 12:24] LABS: Erythrocyte Sedimentation Rate 15 MM/HR (0-20)
[2019-07-15 12:27] LABS: Alanine Aminotransferase 11 IU/L (9-52); Albumin 4.2 g/dL (3.5-5.0); Albumin Globulin Ratio 1.4 (1.0-2.8); Alkaline Phosphatase 57 U/L (38-126); Aspartate Aminotransferase 46 IU/L (14-36); BUN Creatinine Ratio 20.8 (6-22); Bilirubin Total 0.4 mg/dL (0.2-1.3); Blood Urea Nitrogen 25 mg/dL (7-17); Calcium 9.4 mg/dL (8.4-10.2); Carbon Dioxide 22 mmol/L (22-32); Chloride 102 mmol/L (98-107); Cholesterol 154 mg/dL (140-199); Estimated Glomerular Filt Rate 44.3 mL/min (>60); Glucose 163 mg/dL (80-110); HDL Cholesterol 54 mg/dL (40-60); HEMOLYSIS < 15 (0-50); LDL Cholesterol Calculated 69 mg/dL (<100); Potassium 4.4 mmol/L (3.4-5.1); Sodium 136 mmol/L (137-145); Total Protein 7.2 g/dL (6.3-8.2); Triglycerides 155 mg/dL (35-150)
[2019-07-15 12:30] LABS: C-Reactive Protein Quant < 0.5 mg/dL (<1.0)
[2019-07-15 13:42] LABS: Free T4, Direct Thyroxine 2.06 ng/dL (0.78-2.19)
[2019-07-15 13:56] LABS: Thyroid Stimulating Hormone 2.76 uIU/mL (0.47-4.68)
== END ==
PROVIDERS: Family Provider Family Medicine; PCP Family Medicine; Visit Provider Physician Assistant Medical
DX: L40.50 Arthropathic psoriasis, unspecified (principal); E03.9 Hypothyroidism, unspecified; E11.9 Type 2 diabetes mellitus without complications; E78.5 Hyperlipidemia, unspecified; I10 Essential (primary) hypertension
CPT/HCPCS: 36415; 80053; 80061; 83036; 84439; 84443; 84481; 85025; 85651; 86140

== ENCOUNTER → 2019-08-22 12:02 | Outpatient (CLI) | payer OTHER, SELFPAY ==
[2019-08-22 12:42] LABS: Add Manual Diff / Slide Review NO; Basophils Absolute Auto 0 /uL (0-100); Basophils Percent Auto 0.3 % (0-2); Eosinophils Absolute Auto 200 /uL (0-450); Eosinophils Percent Auto 4.4 % (2-4); Hemoglobin 12.2 g/dL (12.0-16.0); Lymphocytes Absolute Auto 1200 /uL (1100-4500); Lymphocytes Percent Auto 24.3 % (25-40); Mean Corpuscular HGB Conc 32.9 % (30-36); Mean Corpuscular Hemoglobin 31.5 PG (26-34); Mean Corpuscular Volume 95.7 fL (80-100); Monocytes Absolute Auto 500 /uL (0-900); Monocytes Percent Auto 10.7 % (3-14); Neutrophils Absolute Auto 2900 /uL (1500-7000); Neutrophils Percent Auto 60.3 % (50-75); Platelet Count 209 X10^3/uL (150-400); Red Blood Cell Count 3.87 X10^6/uL (4.0-5.2); Red Cell Distribution Width 14.2 % (11.6-14.8); White Blood Cell Count 4.8 X10^3/uL (4.5-11.0)
[2019-08-22 13:07] LABS: Hemoglobin A1C% w Est Avg Glu 6.2 % (4.0-6.0)
[2019-08-22 13:43] LABS: BUN Creatinine Ratio 29.2 (6-22); Blood Urea Nitrogen 35 mg/dL (7-17); Calcium 10.3 mg/dL (8.4-10.2); Carbon Dioxide 24 mmol/L (22-32); Chloride 105 mmol/L (98-107); Estimated Glomerular Filt Rate 44.2 mL/min (>60); Glucose 179 mg/dL (80-110); HEMOLYSIS < 15 (0-50); Sodium 137 mmol/L (137-145)
[2019-08-22 13:47] LABS: Potassium 5.6 mmol/L (3.4-5.1)
== END ==
PROVIDERS: PCP Family Medicine; Visit Provider Orthopaedic Surgery Orthopaedic Surgery of the Spine
DX: Z01.812 Encounter for preprocedural laboratory examination (principal); Z01.818 Encounter for other preprocedural examination
CPT/HCPCS: 36415; 80048; 83036; 85025; 93005

== ENCOUNTER → 2019-08-28 13:21 | Outpatient (CLI) | payer OTHER, SELFPAY ==
[2019-08-28 14:06] LABS: Alanine Aminotransferase 18 IU/L (9-52); Albumin 4.3 g/dL (3.5-5.0); Albumin Globulin Ratio 1.7 (1.0-2.8); Alkaline Phosphatase 57 U/L (38-126); Aspartate Aminotransferase 40 IU/L (14-36); BUN Creatinine Ratio 25.5 (6-22); Bilirubin Total 0.3 mg/dL (0.2-1.3); Blood Urea Nitrogen 28 mg/dL (7-17); Calcium 9.2 mg/dL (8.4-10.2); Carbon Dioxide 28 mmol/L (22-32); Chloride 100 mmol/L (98-107); Estimated Glomerular Filt Rate 48.8 mL/min (>60); Globulin 2.6 g/dL (1.7-4.1); Glucose 235 mg/dL (80-110); HEMOLYSIS < 15 (0-50); Potassium 4.1 mmol/L (3.4-5.1); Sodium 138 mmol/L (137-145); Total Protein 6.9 g/dL (6.3-8.2)
== END ==
PROVIDERS: PCP Family Medicine; Visit Provider Hospitalist
DX: I10 Essential (primary) hypertension (principal)
CPT/HCPCS: 36415; 80053

== ENCOUNTER → 2019-10-08 09:56 | Outpatient (CLI) | payer OTHER, SELFPAY ==
[2019-10-08 10:58] LABS: Add Manual Diff / Slide Review NO; Basophils Absolute Auto 0 /uL (0-100); Basophils Percent Auto 0.7 % (0-2); Eosinophils Absolute Auto 200 /uL (0-450); Eosinophils Percent Auto 4.6 % (2-4); Hematocrit 37.4 % (36-46); Hemoglobin 12.4 g/dL (12.0-16.0); Lymphocytes Absolute Auto 1100 /uL (1100-4500); Lymphocytes Percent Auto 24.6 % (25-40); Mean Corpuscular HGB Conc 33.1 % (30-36); Mean Corpuscular Hemoglobin 31.5 PG (26-34); Monocytes Absolute Auto 500 /uL (0-900); Monocytes Percent Auto 11.4 % (3-14); Neutrophils Absolute Auto 2500 /uL (1500-7000); Neutrophils Percent Auto 58.7 % (50-75); Platelet Count 212 X10^3/uL (150-400); Red Blood Cell Count 3.93 X10^6/uL (4.0-5.2); Red Cell Distribution Width 14.7 % (11.6-14.8); White Blood Cell Count 4.3 X10^3/uL (4.5-11.0)
[2019-10-08 11:17] LABS: Erythrocyte Sedimentation Rate 7 MM/HR (0-20)
[2019-10-08 11:19] LABS: Hemoglobin A1C% w Est Avg Glu 5.6 % (4.0-6.0)
[2019-10-08 11:21] LABS: Alanine Aminotransferase 18 IU/L (<35); Albumin 4.4 g/dL (3.5-5.0); Albumin Globulin Ratio 1.5 (1.0-2.8); Alkaline Phosphatase 59 U/L (38-126); Aspartate Aminotransferase 44 IU/L (14-36); BUN Creatinine Ratio 17.7 (6-22); Bilirubin Total 0.5 mg/dL (0.2-1.3); Blood Urea Nitrogen 23 mg/dL (7-17); Calcium 9.6 mg/dL (8.4-10.2); Carbon Dioxide 27 mmol/L (22-32); Chloride 102 mmol/L (98-107); Estimated Glomerular Filt Rate 40.3 mL/min (>60); Globulin 2.9 g/dL (1.7-4.1); Glucose 135 mg/dL (80-110); HEMOLYSIS < 15 (0-50); Potassium 3.9 mmol/L (3.4-5.1); Sodium 139 mmol/L (137-145); Total Protein 7.3 g/dL (6.3-8.2)
[2019-10-08 11:22] LABS: C-Reactive Protein Quant < 0.5 mg/dL (<1.0)
== END ==
PROVIDERS: Hospitalist; PCP Family Medicine; Visit Provider Physician Assistant Medical
DX: E11.9 Type 2 diabetes mellitus without complications (principal); L40.50 Arthropathic psoriasis, unspecified
CPT/HCPCS: 36415; 80053; 83036; 85025; 85651; 86140

== ENCOUNTER 2019-10-18 06:07 | Inpatient (IN) | payer OTHER, MEDICARE, SELFPAY ==
[2019-10-10 14:02] VITALS: BMI 39.8
[2019-10-18] VITALS (20 sets, daily range): BP systolic 96–177; BP diastolic 52–98; PULSE 100–114; RESP 8–21; TEMP 36.1–36.7; O2SAT 90–97; BMI 39.8
--- NOTE | 2019-10-18 | DI.RAD.S_ITS ---
PROCEDURE: XR LUMBAR SPINE 2-3V INDICATIONS: TLIF L2-5 TECHNIQUE: 2 immediate postoperative views of the lumbar spine were acquired. COMPARISON: [facility], MR, MR LUMBAR SPINE WO CON, 05/28/2019, 9:39. FINDINGS: Bones: L2-L5 posterior fusion has been performed, with interbody cage disc prostheses devices at L2-3 and L3-4. Soft tissues: Overlying bowel gas pattern is normal. No suspicious soft tissue calcifications. IMPRESSION: Normal alignment established after posterior fusion procedure with interbody disc cage prosthesis device is placed as noted. Dictated by: Raymond Calderón M.D. on 10/18/2019 at 12:24 Approved by: Raymond Calderón M.D. on 10/18/2019 at 12:26
[2019-10-18] MEDS: LACTATED RINGERS 1,000 ML 42 ML IV ×3 (07:10→12:46)
--- NOTE | 2019-10-18 07:43 | PM.PREOP ---
Pre-operative Note Interval Note History & Physical reviewed/Exam performed by Physician: Yes Changes to H&P: No
[2019-10-18] MEDS: CEFAZOLIN 2 GM/100 ML FROZ.PIGGY IV ×2 (07:50→11:33)
--- NOTE | 2019-10-18 08:39 | SUR.OPER ---
Prone on spine table, head in foam head support, padded chest and pelvic supports, gel pad at knees, lower legs supported by pillows; nipples, genitalia and toes free of pressure, arms secured on foam padded arm boards at <90 degrees abduction. Tape over blanket at thigh secured to table.
[2019-10-18] MEDS: BUPIVACAINE LIPOSOME 266 MG/20 ML VIAL INJ (08:45)
[2019-10-18] MEDS: BUPIVACAINE 0.25% W/ EPI (PF) 10 ML VIAL 20 ML INJ (08:46)
--- NOTE | 2019-10-18 12:30 | PM.OP.1 ---
Operative Date/Time/Diagnoses Date of procedure: 10/18/19 Time of procedure: 08:09 Pre-op diagnosis: 1. 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 L2-3, L3-4 spinal stenosis 3. Lumbar scoliosis 4. 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 L2-3 L3-4 Postero-lateral and posterior interbody fusion 2. L2-3 L3-4 interbody cage placement. 3. L2-3 L3-4 decompressive laminectomy with bilateral facetecomies 4. L2-3 L3-4 L4-5 Posterior segmental instrumentation with pedicle screw placement 5. L4-5 posterior non-segmental hardware removal 6. L4-5 exploration of fusion with left hemilaminectomy 7. L4-5 posterolateral fusion 8. [place] of bone marrow from iliac crest 9. Utilization of microsurgical technique and operating microscope Same procedure as scheduled: Yes Indications: Patient has been having chronic back pain and worsening lumbar radiculopathy. Patient had previous lumbar fusion with worsening back pain and right-sided radiculopathy since surgery. Patient failed multiple conservative management with worsening pain weakness and numbness in her lower extremity. Patient has been having difficulty performing activity of daily living. After discussing risks benefits of treatment options, patient elected proceed with surgery. Surgeon: Ricky Hager Superintendent [employer]: Ghazal Molina Click Yes if Unassisted: No Anesthesia Type: General Operative Notes Closure Type: primary Specimen(s): none sent Prosthetic devices, grafts, tissues, transplants, or devices: Globus revolve screws, Rise cages Applied: catheter Estimated Blood Loss (mL): 100 Blood products transfused: none Procedure in detail: Patient was seen in the preoperative area. Risks and benefits of the surgery was discussed with the patient. Informed consent was obtained from the patient and placed in the chart. Surgical site was marked. Patient was taken to the operative room. General anesthesia was administered. Prophylactic antibiotic was given to the patient less than 30 min before the incision was made. Patient was placed into a prone position on the Aravind table. Patient's back was then prepped and draped in the sterile fashion. Time-out was performed at this time. Using patient's previous scar incision was made over the L2-3 L3-4 L4-5 interval on the right side. Fascia was incised in line with skin incision. Patient's previously placed hardware over the L4-5 level was identified by dissecting down to the level the hardware using a Bovie and a Victor. The locking caps which was removed using globus screwdriver. The locking diana was then removed from the tulips of the pedicle screws using a Yas. The pedicle screws were then removed using the screwdriver. The screws were found to have good purchase. The Globus and MARS retractors was then placed into the wound and docked onto the L2 and L3 lamina using C-arm guidance. Using microsurgical technique and operating microscope a laminectomy facetectomy was performed by removing the L2 and L3 lamina and the L2-3 L3-4 facet. Patient was found have severe central and neural foramen stenosis due to ligamentum flavum hypertrophy facet enlargement disc herniation at L2-3 L3-4 level. The epidural space and the neural foramen was fully decompressed after the laminectomy facetectomy was completed at both levels. The disc space at L2-3 L3-4 level was identified next. And a total diskectomy was performed at L2-3 L3-4 level. The endplates were decorticated using a rasp and shaver. The total diskectomy and decortication was performed at L2-3 L3-4 level in order to to accomplish a L2-3 L3-4 fusion. The local bone from the laminectomy and facetectomy was saved for local bone grafting. After the total diskectomy and decortication was completed, Bio4 bone graft material was combined with local bone that was harvested earlier. At this time, a separate skin is incision was made over the iliac crest. A Jamshidi needle was inserted into the iliac crest through a separate skin incision. 5 cc of bone marrow aspiration was obtained through the separate skin incision using a Jamshidi needle from the iliac crest. The bone marrow aspiration was combined with local bone and the via cell bone grafting material. The bone grafting material was placed into the L2-3 L3-4 interbody space along with a expandable cage. The cage was expanded to its maximum height using the torque limiting screwdriver. At this time a mirror image incision was made on the left side. The fascia was incised in line with the skin incision. Patient's previously placed hardware on the left side was then removed in the same fashion as it was on the right side. The hardware was also found to have good purchase. The fusion mass on the left side was exposed by performing a left-sided hemilaminectomy at L4-5 level. The hemilaminectomy was performed using the Kerrison rongeur to undercut the lamina as well removing additional epidural scar tissue for purpose of decompressing the epidural space. The fusion mass was explored and was found have visible motion indicating pseudoarthrosis. Globus MARS retractor was inserted and docked onto the L2-3 L3-4 L4-5 posterolateral gutter. Using the power drill, posterior-lateral decortication was performed at L2-3 L3-4 L4-5 level until bleeding cortical bone was identified. The remaining bone grafting material was placed into the L2-3 L3-4 L4-5 posterior lateral gutter he order to accomplish posterolateral fusion at the L2-3 L3-4 L4-5 level. Using the double C-arm technique, pedicle screws were placed into the L2, L3 L4 and L5 pedicles bilaterally. This was done by placing the Jamshidi needle into the pedicles, then placing the guidewires over the Jamshidi needle, and finally placing the cannulated screws over the guidewires bilaterally. After the pedicle screws were placed, 2 titanium rods was locked into the heads of the pedicle screws using locking caps and torque limiting screwdriver. After all the hardware was placed, and confirmed with AP and lateral C-arm imaging, the wound was then irrigated with sterile normal saline and packed with Ray-Los gauze for 3 min to accomplish hemostasis. After the gauze was removed the deep fascia was closed with #1 Vicryl suture. The subcutaneous layer was closed with 2-0 Vicryl. The skin was closed with skin alexandr. Patient tolerated the procedure well. There were no complications. Complications: none Post-operative Condition: stable Disposition: PACU Plan for aftercare: Admit to inpatient hospital
--- NOTE | 2019-10-18 12:31 | CM.DANOTE ---
Discharge Planning/Care Management DCP: assessment: Case received, EMR reviewed. Discussed in Team Rounds. Pt is a 74 year old female who admitted early this morning for a planned spinal surgery. Surgeon: Dr. Hager PCP: Jaspal Rico Payer: [employer] [place] Medicare A only Admission status: in review: per UR BLAINE Perez. At this time pt is expected to go from PACU to room 204 but she is currently still in surgery. Pre-op assessment: 10/10/19 with RN ANAID/see Template below shows that pt has identified her post hospital plan as home with family support. Of Note: her address is listed as [facility]. It is unclear at this point if she plans to return there at d/ or stay somewhere on the [facility]. P: DCP team to follow up tomorrow to meet with pt and continue the DCplanning assessment process. Anticipate PT/OT will be involved in her post surgical POC. CM Discharge Assessment Start: 10/18/19 12:28 Freq: Status: Active Protocol: Document 10/18/19 12:28 ITV (Rec: 10/18/19 12:30 ITV [id number]) Discharge Planning Assessment History Provided By Medical Record Has Patient been admitted in last 30 No days? Prior Living Arrangements House Household Members spouse,children Whiteboard Updated in Patient Room with Yes name and ext. # of Sanitor Review Status In Process Pre-Anesthesia Assessment Start: 10/10/19 14:02 Freq: Status: Active Protocol: Document 10/10/19 14:02 CAB (Rec: 10/10/19 14:57 CAB [id number]) Pre-Anesthesia Assessment Preferred Name Lou Patient Information Reviewed Via Phone Assessment Assessment Completed With Patient Diagnostic Results BMP/CMP,CBC,EKG Comment Labs/EKG @ Primary Care Provider Jaspal Rico Medical Clearance Received Yes Seen Specialist in Last 12 Months Yes Specialist Seen Sheet Metal Foreman,Orthopedist, Other Comment RA Primary Language Nicaraguan Height 148.59 cm Weight 87.997 kg Body Mass Index (BMI) 39.8 Hearing Ability Normal Visual Assist Glasses Dentition Type Teeth, Natural Present,Teeth, Missing Barriers to Learning None Other Aids No Hx Anesthesia Reactions Yes: Slow to come out of anesthesia, panic attack with nitrous oxide Hx Family Anesthesia Reaction No Hx Malignant Hyperthermia No Hx Blood Transfusions No Anesthesia Review Requested No alcohol intake current alcohol intake frequency a few times a month Smoking Status Never smoker Substance Use Type does not use Pain Present Pain Reported Musculoskeletal Symptoms Abnormal Gait,Back Pain, Difficulty Walking,Joint Pain, Neck Pain,Numbness History of Falling (Recent or History of Yes ) Patient is completely paralyzed or No completely immobile Prosthesis or Orthotic Device Cane Mental Status Oriented to own ability Is patient on oxygen? No Does patient have GLASS/SOB No Hx Sleep Apnea No Currently Taking a Beta Nitin No Can You Climb a Flight of Stairs Without Yes: Climbs stairs 5x/day at SOB home Hx Chest Pain No Hx SOB No Hx Syncope or Dizziness No Anti-Coagulant Therapy No Has a Instrument Maker And Repairer No Cardiac Testing No Hx Pacemaker/ICD No Pacemaker Rep Required? No Cardiac Clearance Received Not Applicable Diet Type At Home Regular dysphagia No Bladder Pattern Incontinent,Incontinent, Stress Urinary Catheter Present No Hx Urinary Self Catheterization No Diabetes Yes HgbA1C 5.6 Date 10/08/19 Patient No Lactating No Hx Drug Resistant Organism No Presence of External or Internal Medical Yes: Lumbar hardware Devices Have you traveled outside the [facility] in the last 30 days? Marital Status Lives With spouse,children Prior Living Arrangements House Number of Floors (Floors) Two Floors Support System Child/Children,Spouse Does the Patient Have Assistance After Yes Surgery Patient Discharge Plan Description Return Home Comment Pt advised 2-3 day length of stay per surgeon Feels Safe in Current Environment Yes Been Physically Hurt or Threatened By a No Person in Current Environment Do you have thoughts of harming yourself None or others? Are you currently considering suicide? No Do you have a plan to hurt yourself or No Plan others? Do You Have Any Spiritual Beliefs That No May Affect Your HC Choices? Do You Have Any Cultural Practices That No May Affect Your HC Choices? Comment Mu-Ism Who Can We Speak to About Patient's Care Family, friends Identifying Code for Release of Patient Declines to issue Information Health Care Proxy/Next of Kin Khari () Health Care Proxy or [phone] Emergency Contact Name Khari () Azam (son) Marce (daughter) Emergency Contact Phone Number Khari: [phone] or Azam: [phone] Marce:[phone] Advance Directives? Yes Advance Directives on File Yes Power of Volunteer Services Director Yes Power of Volunteer Services Director Name Khari () Power of Volunteer Services Director or [phone] PAC Instructions Durable medical equipment, Medications to take/avoid, Nasal antibiotic,No ETOH/ petroleum product on skin DOS, NPO,Post-op transportation,Pre -surgical wash,Sturdy shoes/ comfortable clothes,Do not bring valuables and remove jewelry
[2019-10-18] MEDS: LORazepam 2 MG/ML INJ 0.25 MG IV ×2 (12:45→13:33)
[2019-10-18] MEDS: hydrOXYzine 50 MG/ML INJ 25 MG IM (12:49)
[2019-10-18] MEDS: HYDROMORPHONE 2 MG INJ IV ×2 (12:54→13:10)
--- NOTE | 2019-10-18 13:05 | PC.NURSE ---
Day shift: Pt not on AC unit at this time.
--- NOTE | 2019-10-18 13:20 | SUR.PHASEI ---
Pt reported pain improving slightly. Able to lie relaxed in bed.
--- NOTE | 2019-10-18 13:43 | SUR.PHASEI ---
Mild tingling to feet
--- NOTE | 2019-10-18 14:05 | SUR.PHASEI ---
Report called to Aleisha.
[2019-10-18] MEDS: ONDANSETRON 4 MG/2 ML INJ IV (14:14)
[2019-10-18] MEDS: INSULIN ASPART 100 UNIT/ML 10ML VIAL SUBCUT (14:16)
--- NOTE | 2019-10-18 14:22 | SUR.PHASEI ---
Patient repositioned. Became nauseated after movement. Medicated with Zofran.
--- NOTE | 2019-10-18 14:52 | PC.NURSE ---
Day shift: Pt on unit at approx 1445. A&Ox3. BP elevated as well as nausea present. 2L NC 97%. CMS ok. SCD's in place. Bed alarm is on. Oriented to room and call light.
--- NOTE | 2019-10-18 14:57 | SUR.PHASEI ---
Patient transferred to the floor with O2 and O2 monitor. Pt became nauseated and dry heaved after arriving in room. BP and HR elevated. O2 sat 94-95% 2lnc. IV saline locked. Dressing checked with RN. Report to Aleisha. Belongings bag and cane in room.
[2019-10-18] MEDS: METOCLOPRAMIDE 10 MG/2 ML INJ IV (15:30)
[2019-10-18] MEDS: HYDROMORPHONE 0.5 MG INJ IV ×3 (15:31→19:22)
[2019-10-18] MEDS: SODIUM CHLORIDE 0.9% 1,000 ML 100 ML IV (15:31)
[2019-10-18] MEDS: CLINDAMYCIN 900 MG/50 ML PIGGYBACK 50 MG IV (17:21)
--- NOTE | 2019-10-18 17:43 | PT-IP ANOTE ---
Attempt to eval pt and pt;s Wilber and son at bedside. Pt was very groggy but able to answer simple questions with eyes closed. She stated I am not capable to do PT now since my pain is 8/10 Will reattempt PT eval tomorrow morning.
[2019-10-18] MEDS: ACETAMINOPHEN 325 MG TABLET 650 MG PO (19:21)
[2019-10-18] MEDS: diphenhydrAMINE 50 MG/ML VIAL 25 MG IV (19:22)
[2019-10-18] MEDS: glipiZIDE 5 MG TABLET PO (20:51)
[2019-10-18] MEDS: SENNOSIDES 8.6 MG TABLET 17.2 MG PO (20:51)
[2019-10-18] MEDS: TRAZODONE 50 MG TABLET PO (20:51)
[2019-10-18] MEDS: DOCUSATE 100 MG CAPSULE PO (20:51)
[2019-10-18] MEDS: GABAPENTIN 300 MG CAPSULE PO (20:51)
[2019-10-18] MEDS: ATORVASTATIN 10 MG TABLET PO (20:51)
[2019-10-18] MEDS: CIPROFLOXACIN 500 MG TABLET PO (20:53)
[2019-10-18] MEDS: OXYBUTYNIN 5 MG TABLET PO (20:53)
[2019-10-18] MEDS: sulfaSALAzine 500 MG TABLET 1500 MG PO (20:54)
[2019-10-18] MEDS: NYSTATIN CREAM 30 GM 1 APPLIC TOP (21:05)
[2019-10-18] MEDS: OXYCODONE IR 10 MG TABLET PO (21:07)
[2019-10-19] VITALS (10 sets, daily range): BP systolic 140–154; BP diastolic 69–91; PULSE 99–108; RESP 16–20; TEMP 36.2–36.9; O2SAT 94–98
[2019-10-19] MEDS: OXYCODONE IR 10 MG TABLET PO ×3 (00:13→06:31)
[2019-10-19] MEDS: SODIUM CHLORIDE 0.9% 1,000 ML 100 ML IV (01:06)
[2019-10-19] MEDS: CLINDAMYCIN 900 MG/50 ML PIGGYBACK 50 MG IV (01:06)
[2019-10-19] MEDS: HYDROMORPHONE 0.5 MG INJ IV ×4 (02:28→11:25)
--- NOTE | 2019-10-19 04:46 | PC.NURSE ---
NOC Note: Pt reporting pain to back at7-8/10, PRN oxycodone 10mg x2 and IVF dilaudid x1 so far this shift. Pt has been awake for most of the night.
[2019-10-19 05:36] LABS: Hematocrit 34.3 % (36-46); Hemoglobin 11.4 g/dL (12.0-16.0)
[2019-10-19 05:41] LABS: Estimated Glomerular Filt Rate 48.8 mL/min (>60)
[2019-10-19] MEDS: LEVOTHYROXINE 75 MCG TABLET PO (06:31)
[2019-10-19] MEDS: diphenhydrAMINE 50 MG/ML VIAL 25 MG IV ×3 (06:37→19:09)
[2019-10-19] MEDS: METOCLOPRAMIDE 10 MG/2 ML INJ IV (07:50)
--- NOTE | 2019-10-19 08:15 | PM.PN.1 ---
Subjective Subjective Date Patient Seen: 10/19/19 Time Patient Seen: 08:15 Interval history: Patient is POD# 1 s/p L2-[address] Hager. Moderate to severe pain overnight, requiring Oxycodone 10mg Q3h along with regular doses of IV Dilaudid for breakthrough. Some complaints of nausea. No chest pain or shortness of breath. Has not mobilized yet. Montes De Oca catheter in place. Exam Vital Signs (past 8 hours): - 10/19/19 06:00 10/19/19 07:48 Temperature 98.3 F Pulse Rate 104 H 105 H Respiratory Rate 16 Blood Pressure 152/78 H 154/89 H Pulse Oximetry 98 96 Oxygen Delivery Method Nasal Cannula Oxygen Flow Rate 1 Narrative Exam Narrative: 74 year old female resting in bed in moderate discomfort. Alert and oriented. Dressing in place over the lumbar spine approximately 50% saturated on the right. 5/5 motor in BLE. SILT. Calves soft, compressible. Palpable pedal pulses. Objective Labs Result Diagrams: 10/19/19 05:20 10/19/19 05:20 Labs: Laboratory Results - last 24 hr 10/19/19 10/19/19 05:20 05:20 Hgb 11.4 L Hct 34.3 L Creatinine 1.10 H Estimated GFR 48.8 L Assessment & Plan Assessment & Plan narrative: Patient will work with PT today. Dilaudid PO 2mg moderate and 4mg severe added today along with Vistaril 25mg for muscle spasm/nausea. Avoid IV Dilaudid and transition to PO control. Montes De Oca catheter to remain in place today as patient has not mobilized. Moderate sanguineous drainage, overnight, apply new dressing today. SCDs for DVT prophylaxis. Patient with history of urosepsis with subsequent kidney disease. Cr today of 1.10. Patient unsure of her baseline, however value today is consistent with previous results we have on file. Will continue maintenance fluids today. She required 3 nights inpatient after previous lumbar surgery, anticipate similar recovery for this hospitalization.
[2019-10-19] MEDS: LOSARTAN 50 MG TABLET 100 MG PO (08:18)
[2019-10-19] MEDS: ACETAMINOPHEN 325 MG TABLET 650 MG PO ×2 (08:18→19:07)
[2019-10-19] MEDS: HYDROMORPHONE 2 MG TABLET PO ×2 (08:18→09:20)
[2019-10-19] MEDS: hydrOXYzine pamoate 25 MG CAPSULE PO ×3 (08:19→21:50)
[2019-10-19] MEDS: MULTIVITAMIN 1 TABLET 1 TAB PO (08:19)
[2019-10-19] MEDS: glipiZIDE 5 MG TABLET PO ×2 (08:19→21:42)
[2019-10-19] MEDS: CHOLECALCIFEROL (VITAMIN D3) 1,000 UNIT TABLET 1000 UNIT PO (08:19)
[2019-10-19] MEDS: PANTOPRAZOLE 20 MG TABLET PO (08:19)
[2019-10-19] MEDS: DOCUSATE 100 MG CAPSULE PO ×2 (08:19→21:42)
[2019-10-19] MEDS: OXYBUTYNIN 5 MG TABLET PO ×2 (08:39→21:42)
--- NOTE | 2019-10-19 09:25 | PT.IIE ---
Current Diagnoses Other secondary scoliosis, lumbar region (10/18/19) Other spondylosis with radiculopathy, thoracic region (10/18/19) Spinal stenosis, lumbar region without neurogenic claudication (10/18/19) Arthrodesis status (10/18/19) Surgery Performed Operation Date: 10/18/19 07:45 Actual Procedures p L4-5 Hardware removal , L2-3, L3-4 Translaminar lumbar interbody fusion, L1-2 right hemilaminectomy, L2-5 PSF w/ instrumentation - Ricky Hager MD Surgical History (Last Updated 10/10/19 @ 14:30 by Che Al RN) H/O colectomy (Acute ~2016) History of arthroscopy of right shoulder (Resolved 07/2012) History of carpal tunnel surgery (Resolved 1981) History of lumbar surgery (Resolved Unknown) History of ovarian cystectomy (Acute ~1974) Hx of appendectomy (Resolved 03/2017) Hx of bilateral cataract extraction (Acute) Hx of cholecystectomy (Resolved 1983) Hx of eye surgery (Acute) Hx of hernia repair (Resolved 04/2011) Hx of laparoscopy (Resolved 03/2017) Hx of lithotripsy (Resolved ~03/2017) Hx of tubal ligation (Resolved 1976) Medical History (Last Updated 10/10/19 @ 14:40 by Che Al, RN) Anxiety (Acute) BCC (basal cell carcinoma) (Acute) Carpal tunnel syndrome (Resolved Unknown) Chickenpox (Resolved Unknown) Chronic back pain (Chronic Unknown) Chronic pain (Acute) Colon polyps (Resolved Unknown) Degenerative disc disease, lumbar (Acute) Depression (Acute) Easy bruisability (Acute) Glaucoma (Acute) Hyperlipemia (Chronic Unknown) Hypertension (Chronic Unknown) Hypothyroidism (Chronic Unknown) Kidney disease (Chronic Unknown) Measles (Resolved Unknown) Migraines (Chronic Unknown) Mumps (Resolved Unknown) Neuropathy (Chronic Unknown) Rheumatoid arthritis (Chronic Unknown) Skin cancer (Resolved Unknown) Physical Therapy Inpatient Evaluation/Re-Eval M1 PT/OT-IP Prior Functional Status Start: 10/19/19 10:18 Freq: NEEDED Status: Active Protocol: Document 10/19/19 09:25 AB (Rec: 10/19/19 10:29 AB [id number]) Medical Review Prior Functional Status Medical History Reviewed Yes Communication able to make needs known Mobility and Gait pt stated that she is modified independent with all mobilities and ambulation without AD indoors but uses a SPC for outdoor mobility Social History Household Members spouse,children Living Arrangements House Number of Floors (Floors) Two Floors Number of Stairs To Enter/Railing? has a ramp to enter the house has 8+7 steps with bilateral rails to get to bedroom level Home Environment Standard Height Toilet,Walk in Shower,Tub/Shower,Ramp Home Equipment Front Wheel Walker,Straight Cane,Manual Wheelchair,Shower Seat with Backrest,Hand Held Shower,Grab Bars Near Toilet, Grab Bars In Shower Additional Social History Comment pt takes care of her disabled son pt lives at [place] [id number] PT-IP Current Condition Start: 10/19/19 10:18 Freq: NEEDED Status: Active Protocol: Document 10/19/19 09:25 AB (Rec: 10/19/19 10:29 AB [id number]) Physical Therapy Current Condition Current Condition Evaluation Date 10/19/19 Treatment Diagnosis s/p L2-5 fusion; difficulty in walking Onset Date 10/18/19 Precautions Lumbar Precautions Log Roll,No Twisting,Limit Bending,Lifting Restriction of 10 lbs,Gait Belt above Incisional Area M3 PT-IP Subjective Start: 10/19/19 10:18 Freq: NEEDED Status: Active Protocol: Document 10/19/19 09:25 AB (Rec: 10/19/19 10:29 AB [id number]) Subjective Physical Therapy Visit Type Type Initial Evaluation Visit Start Time 09:25 Visit Stop Time 10:06 Total Visit Minutes 36 Number of COMPUTER SYSTEM TECHNICIAN Visits 0 Physical Therapy Visit Comments Patient Comments c/o nausea but agreeable to get out of the bed Therapy Pain Assessment Pain When Pain Assessed At Rest Pain Present Pain Present Pain Reported Location Back Intensity 8 Scale Used increases to 10/10 with mobility Pain Behaviors Guarding,Wincing Pain Management Techniques Apply Cold,Timing of Activity with Medications M4 PT-IP Mobility and Gait Start: 10/19/19 10:18 Freq: NEEDED Status: Active Protocol: Document 10/19/19 09:25 AB (Rec: 10/19/19 10:29 AB [id number]) PT-Bed Mobility Assessment Rolling Type of Rolling Log Rolling Level of Assist Minimal Assistance Supine to Sit Supine to Sit Minimal Assistance Sit to Supine Sit to Supine Minimal Assistance PT-Transfer Assessment Sit to and From Stand Sit to and from Stand Minimal Assistance,1 Person Assistance,Use of Upper Extremities Equipment Transfer Assistive Device Gait Belt,Front Wheeled Walker Orthotic/Prosthetic Devices or Brace: No Transfers Transfer Destination Chair Transfer Technique Stand Step Pivot Transfer Ability Level of Assist Minimal Assistance,Moderate Assistance Comments Mobility Comments completed bed mobility log roll supine to sit min A and cues. pt was able to sit on EOB SBA. c/o nausea: BP: 153 /77 pt completed sit to stand min to mod A and cues and was able to transfer to the chair using FWW min to mod A and cues. pt c/o increase pain and nausea and unable to ambulate. Left pt with OT. PT-Balance Assessment Sitting Balance and Reactions Static Sitting Balance Ability Good Dynamic Sitting Balance Ability Good Standing Balance and Reactions Static Standing Balance Ability Fair Dynamic Standing Balance Ability Fair Device Used FWW M5 PT-IP Objective Assessments Start: 10/19/19 10:18 Freq: NEEDED Status: Active Protocol: Document 10/19/19 09:25 AB (Rec: 10/19/19 10:29 [id number]) Orientation Orientation/Cognition Level of Alertness Alert Orientation Name,Age,Birthday,Month,Date, Year,Day of Week,Place, Situation Language Function Ability No Deficits Noted Safety Awareness Understands Safety Issues Memory Description No Deficits Noted Gross Range of Motion Lower Extremity ROM Assessment Within Functional Limits Strength Lower Extremity Strength Hip 4-/5 Knee 4-/5 Coordination Assessment Gross Coordination Gross Coordination WNL Sensation Assessment Sensation Gross Sensation WNL Muscle Tone Muscle Tone WNL Yes M6 PT-IP Treatment Start: 10/19/19 10:18 Freq: NEEDED Status: Active Protocol: Document 10/19/19 09:25 AB (Rec: 10/19/19 10:29 [id number]) Physical Therapy Treatment Education Education Provided Precautions,Weight Bearing Status,Post-Op Packet,Safety M7 PT-IP Assessment and Plan Start: 10/19/19 10:18 Freq: NEEDED Status: Active Protocol: Document 10/19/19 09:25 AB (Rec: 10/19/19 10:29 [id number]) PT Summary Assessment and Plan Potential Rehabilitation Potential Good Status of Condition at Evaluation Evolving Summary Impairments Pain,ROM,Strength,Balance, Coordination,Sensation,Bed Mobility,Transfers,Gait, Activity Tolerance Assessment Summary pt requires min to mod A with mobility and c/o nausea and increase pain with mobility limiting activity tolerance and unable to ambulate this morning. will continue to assess progress. pt plans to go home with spouse to assist her. pt needs to complete stair training prior to d/c. Goals Bed Mobility Goal Standby Assistance Transfer Goal Standby Assistance,Front Wheeled Walker Gait Goal Standby Assistance,Front Wheel Walker Gait Distance 150 Other Goals up/down 15 steps with bilateral rails SBA Days to Meet Goals 5 Frequency of Treatment Frequency Of Treatment Twice a Day Treatment Plan Physical Therapy Treatment Plan Bed Mobility Training,Transfer Training,Gait Training, Therapeutic Exercise,Balance Retraining,Post Op Education, Discharge Planning,Hot or Cold Pack,Neuromuscular Re-ed, Coordination Retraining,Manual Therapy Recommendations To Nursing Amount of Assist Needed 1 Person Assist Discharge Recommendations PT Discharge Recommendations Home with Assistance
--- NOTE | 2019-10-19 10:44 | OT.IP.EVAL ---
Current Diagnoses Other secondary scoliosis, lumbar region (10/18/19) Other spondylosis with radiculopathy, thoracic region (10/18/19) Spinal stenosis, lumbar region without neurogenic claudication (10/18/19) Arthrodesis status (10/18/19) Surgery Performed Operation Date: 10/18/19 07:45 Actual Procedures p L4-5 Hardware removal , L2-3, L3-4 Translaminar lumbar interbody fusion, L1-2 right hemilaminectomy, L2-5 PSF w/ instrumentation - Ricky Hager MD Past Medical History (Last Updated 10/10/19 @ 14:40 by Che Al RN) Anxiety (Acute) BCC (basal cell carcinoma) (Acute) Carpal tunnel syndrome (Resolved Unknown) Chickenpox (Resolved Unknown) Chronic back pain (Chronic Unknown) Chronic pain (Acute) Colon polyps (Resolved Unknown) Degenerative disc disease, lumbar (Acute) Depression (Acute) Easy bruisability (Acute) Glaucoma (Acute) Hyperlipemia (Chronic Unknown) Hypertension (Chronic Unknown) Hypothyroidism (Chronic Unknown) Kidney disease (Chronic Unknown) Measles (Resolved Unknown) Migraines (Chronic Unknown) Mumps (Resolved Unknown) Neuropathy (Chronic Unknown) Rheumatoid arthritis (Chronic Unknown) Skin cancer (Resolved Unknown) Surgical History (Last Updated 10/10/19 @ 14:30 by Che Al RN) H/O colectomy (Acute ~2016) History of arthroscopy of right shoulder (Resolved 07/2012) History of carpal tunnel surgery (Resolved 1981) History of lumbar surgery (Resolved Unknown) History of ovarian cystectomy (Acute ~1974) Hx of appendectomy (Resolved 03/2017) Hx of bilateral cataract extraction (Acute) Hx of cholecystectomy (Resolved 1983) Hx of eye surgery (Acute) Hx of hernia repair (Resolved 04/2011) Hx of laparoscopy (Resolved 03/2017) Hx of lithotripsy (Resolved ~03/2017) Hx of tubal ligation (Resolved 1976) Occupational Therapy Inpatient Evaluation/Re-Eval M1 PT/OT-IP Prior Functional Status Start: 10/19/19 10:18 Freq: NEEDED Status: Active Protocol: Document 10/19/19 12:35 CGR (Rec: 10/19/19 12:54 CGR [email or web address]) Medical Review Prior Functional Status Medical History Reviewed Yes Communication able to make needs known Mobility and Gait pt stated that she is modified independent with all mobilities and ambulation without AD indoors but uses a SPC for outdoor mobility Activities of Daily Living and IADL's Pt was IND in all ADLs and helps to care for her son with CP. Social History Household Members spouse,children Living Arrangements House Number of Floors (Floors) Two Floors Number of Stairs To Enter/Railing? has a ramp to enter the house has 8+7 steps with bilateral rails to get to bedroom level Home Environment Standard Height Toilet,Walk in Shower,Tub/Shower,Ramp Home Equipment Front Wheel Walker,Straight Cane,Manual Wheelchair,Shower Seat with Backrest,Hand Held Shower,Grab Bars Near Toilet, Grab Bars In Shower Additional Social History Comment pt takes care of her disabled son pt lives at [place] [id number] OT-IP Current Condition Start: 10/19/19 12:34 Freq: Status: Active Protocol: Document 10/19/19 12:35 CGR (Rec: 10/19/19 12:54 CGR [email or web address]) Occupational Therapy Current Condition Current Condition Evaluation Date 10/19/19 Treatment Diagnosis L2-5 TLIF Diagnosis Onset Date 10/18/19 Post Operative Precautions Lumbar Precautions Log Roll,No Twisting,Limit Bending,Lifting Restriction of 10 lbs,Gait Belt above Incisional Area M3 OT- IP Subjective and Pain Start: 10/19/19 12:34 Freq: Status: Active Protocol: Document 10/19/19 12:35 CGR (Rec: 10/19/19 12:54 CGR [email or web address]) OT- Subjective Occupational Therapy Visit Type Type Initial Evaluation Visit Start Time 09:50 Visit Stop Time 10:44 Total Visit Minutes 54 Notes Partial co-treat with P.T. OT Pain Assessment Pain When Pain Assessed At Rest Pain Present Pain Present Pain Reported Location Back Intensity 8 Scale Used Numeric (1 - 10) Management Techniques Modification of Treatment,Re- positioning,Timing of Activity with Medications M4 OT- IP ADL's Start: 10/19/19 12:34 Freq: Status: Active Protocol: Document 10/19/19 12:35 CGR (Rec: 10/19/19 12:54 CGR [email or web address]) OT [id number] Comments OT Self-Feeding Comments Not meal time. OT ADL-Grooming General Evaluation Grooming Ability Standby Assistance Comments OT Grooming Comments sitting in chair. OT ADL-Oral Care Comments Oral Care Comments Not performed in this session, pt declined. OT ADL-Dressing Comments OT Dressing Comments Pt declined to practice but was instructed on how to use the hip kit for LB dressing. Pt states her son has a sock aide that she can use. OT ADL-Toileting Comments OT Toileting Comments Not performed in this session. OT ADL-Bathing Comments OT Bathing Comments Not performed in this session. M5 OT- IP IADL's Start: 10/19/19 12:34 Freq: Status: Active Protocol: Document 10/19/19 12:35 CGR (Rec: 10/19/19 12:54 CGR [email or web address]) OT-Instrumental Activities of Daily Living Deficits IADL Deficits Identified No Deficits Home Safety Awareness Awareness of Need for Assistance at Home Good Awareness Ability to Problem Solve Emergency Able to Problem Solve Situations Medication Management Medication Management No Deficits Identified Money Management Money Management No Deficits Identified Meal Preparation Meal Preparation Caregiver Provides Assist Finance Vice President Finance Vice President Caregiver Provides Assist Driving Driving Caregiver Provides Assist M6 OT- IP Functional Cognition Start: 10/19/19 12:34 Freq: Status: Active Protocol: Document 10/19/19 12:35 CGR (Rec: 10/19/19 12:54 CGR [email or web address]) Cognitive Factors Limiting Selfcare Function Cognitive Ability Level of Alertness Alert Patient Orientation Name,Age,Birthday,Month,Date, Year,Day of Week,Place, Situation Attention Span Ability Capable of Focused Attention, Capable of Sustained Attention Ability to Follow Commands Able to Follow Multi-Step Commands Memory Description No Deficits Noted Safety Awareness No Deficits Noted Problem Solving Ability No deficits Noted Executive Function Ability No Deficits Noted Abstract Thinking Ability No Deficits Noted OT- Vision and Hearing OT- Hearing Assessment OT- Hearing Assessment WFL OT- Vision Assessment Visual Acuity WFL Visual Attentiveness WFL Occular Pursuits WFL Visual Convergence WFL Visual [place] WFL Vision Assessment Comments Pt has bifocals mostly for reading. M7 OT- IP Mobility and Balance Start: 10/19/19 12:34 Freq: Status: Active Protocol: Document 10/19/19 12:35 CGR (Rec: 10/19/19 12:54 CGR [email or web address]) OT- Bed Mobility Assessment Rolling Type of Rolling Log Rolling Level of Assistance Minimal Assistance Supine to Sit Supine to Sit Assist Minimal Assistance Scooting Scooting to Edge of Bed Minimal Assistance OT-Transfer Assessment Sit to and From Stand Sit to and from Stand Minimal Assistance Transfers Transfer Ability Minimal Assistance,Moderate Assistance,1 Person Assistance Technique Transfer Destination Bed,Chair Transfer Technique Stand Step Pivot Devices Transfer Assistive Devices Gait Belt,Front Wheeled Walker OT- Balance Assessment Sitting Balance and Reactions Static Sitting Balance Ability Good Dynamic Sitting Balance Ability Fair M8 OT- IP Objective Assessments Start: 10/19/19 12:34 Freq: Status: Active Protocol: Document 10/19/19 12:35 CGR (Rec: 10/19/19 12:54 CGR [email or web address]) OT Gross Range of Motion Upper Extremity Range of Motion Assessment Within Functional Limits OT Strength Upper Extremity Strength Assessment Within Functional Limits Hand Retort Furnace Operator Strength Hand Dominance Right OT- Coordination Assessment Upper Extremity Finger to Nose Test Within Functional Limits Finger Tapping Test Within Functional Limits OT-Muscle Tone Assessment Muscle Tone WNL Yes OT Sensation Assessment Edema Edema Present Edema Comments R hand swollen from IV. M9 OT- IP Assessment and Plan Start: 10/19/19 12:34 Freq: Status: Active Protocol: Document 10/19/19 12:35 CGR (Rec: 10/19/19 12:54 CGR [email or web address]) OT Summary Assessment and Plan Potential Rehabilitation Potential Excellent Analytic Complexity at Evaluation Low Summary OT Impairments Pain,Balance,Functional Mobility,Grooming,Dressing, Toileting,Bathing,Toilet Transfers,Shower Transfers Progress Towards Goals Progressing Toward Goals Assessment Summary Pt presents as a low complexity evaluation s/p L2-5 TLIF. Pt with good progress for mobility on this date. Pt will likely be ok for discharge home with help from her . Educated on LB dressing and home safety. Pt would benefit from 1-2 more sessions for addressing dressing with pt practice and shower. Goals Grooming Goal Independent Dressing Goal Independent Toileting Goal Independent Bathing Goal Independent Toilet Transfer Goal Independent Shower Transfer Goal Independent Days to Meet Goals 2 Frequency of Treatment Frequency Of Treatment Once a Day Treatment Plan OT Treatment Plan ADL Training,Functional Mobility,Patient/Family Education,Discharge Planning Other Treatment Recommendations and Next Shower and LB dressing. Treatment Focus Discharge Recommendations OT Discharge Recommendations Home with Assistance Home Equipment Needs Pt provided with hip kit minus sock aid as pt states her son has one that she can use.
--- NOTE | 2019-10-19 10:56 | PC.NURSE ---
Addendum entered by Willy Floyd R.N. 10/19/19 14:50: patient reports that the new pain med regimen has greatly improved her pain. reports 6/10 but states is tolerable. Original Note: PAIN ISSUES: LATE ENTRY. SEE EMAR FOR MED ADMINISTRATION AND PAIN ASSESSMENTS. PATIENT C/O 9/10 PAIN THIS AM. DISCUSSED SAME W/ PA LUZ. MEDS ORDERS WERE CHANGED. PATIENT GIVEN 2MG PO DILAUDID, TYLENOL AND VISTARIL W/ MINIMAL RELIEF AND DECREASE TO LEVEL 7/10. PATIENT REPORTS THIS IS STILL NOT TOLERABLE. ORDER IS FOR 2-4MG. ADDITIONAL 2MG ADMINISTERED AFTER 1HR PER ORTHO PA DISCUSSION W/ THIS HOT METAL CHARGER. PATIENT THEN UP TO RECLINER WITH PHYSICAL THERAPY, THEREFORE PAIN LEVEL REMAINED ELEVATED.
[2019-10-19] MEDS: HYDROMORPHONE 4 MG TABLET PO ×2 (12:28→16:13)
--- NOTE | 2019-10-19 14:55 | PT.IPTN ---
Current Diagnoses Other secondary scoliosis, lumbar region (10/18/19) Other spondylosis with radiculopathy, thoracic region (10/18/19) Spinal stenosis, lumbar region without neurogenic claudication (10/18/19) Arthrodesis status (10/18/19) Surgery Performed Operation Date: 10/18/19 07:45 Actual Procedures p L4-5 Hardware removal , L2-3, L3-4 Translaminar lumbar interbody fusion, L1-2 right hemilaminectomy, L2-5 PSF w/ instrumentation - Ricky Hager MD Physical Therapy Treatment Note M2 PT-IP Current Condition Start: 10/19/19 10:18 Freq: NEEDED Status: Active Protocol: Document 10/19/19 09:25 AB (Rec: 10/19/19 10:29 AB [id number]) Physical Therapy Current Condition Current Condition Evaluation Date 10/19/19 Treatment Diagnosis s/p L2-5 fusion; difficulty in walking Onset Date 10/18/19 Precautions Lumbar Precautions Log Roll,No Twisting,Limit Bending,Lifting Restriction of 10 lbs,Gait Belt above Incisional Area M3 PT-IP Subjective Start: 10/19/19 10:18 Freq: NEEDED Status: Active Protocol: Document 10/19/19 14:55 AB (Rec: 10/19/19 15:40 AB [id number]) Subjective Physical Therapy Visit Type Type Treatment Note Visit Start Time 14:55 Visit Stop Time 15:16 Total Visit Minutes 21 Number of JACKHAMMER SPLITTER OPERATOR Visits 0 Physical Therapy Visit Comments Patient Comments pt agreeable to do PT Therapy Pain Assessment Pain When Pain Assessed At Rest Pain Present Pain Present Pain Reported Location Back Intensity 7 Scale Used increases with mobility Pain Management Techniques Re-positioning,Timing of Activity with Medications M4 PT-IP Mobility and Gait Start: 10/19/19 10:18 Freq: NEEDED Status: Active Protocol: Document 10/19/19 14:55 AB (Rec: 10/19/19 15:40 AB [id number]) PT-Bed Mobility Assessment Supine to Sit Supine to Sit Standby Assistance,Bedrails Sit to Supine Sit to Supine Standby Assistance,Bedrails PT-Transfer Assessment Sit to and From Stand Sit to and from Stand Minimal Assistance,1 Person Assistance,Use of Upper Extremities Equipment Transfer Assistive Device Gait Belt,Front Wheeled Walker Orthotic/Prosthetic Devices or Brace: No Comments Mobility Comments pt found supine in bed and willing to do PT but requested to go back to bed afterwards. pt also stated that her spouse reminded her that they do have bedcanes at home that they can put on the bed to help her get up. pt completed supine to sit log roll using bed rail SBA. pt was able to sit on EOB SBA. completed sit to stand min A and cues and ambulated in room ~ 25 ft min A and cues. pt requested to go back to bed. completed sit to supine SBA with use of bed rail. positioned pt in bed. call light and table placed within reach. Gait Assessment Gait Gait Assistance Required: Minimum Assistance Distance (Feet) 25 Able to Maintain Weight Bearing Status Yes During Gait Assistive Devices Assistive Device Gait Belt,Front Wheeled Walker Orthotic/Prosthetic Devices or Brace: No Gait Deviations General Gait Pattern Antalgic,Decreased Stride Length,Decreased Feet Clearance,Step-to Gait Factors Limiting Gait Function Factors Limiting Gait Function Decreased Activity Tolerance, Decreased Strength,Limited Range of Motion,Pain,Poor Balance M5 PT-IP Objective Assessments Start: 10/19/19 10:18 Freq: NEEDED Status: Active Protocol: Document 10/19/19 09:25 AB (Rec: 10/19/19 10:29 AB [id number]) Orientation Orientation/Cognition Level of Alertness Alert Orientation Name,Age,Birthday,Month,Date, Year,Day of Week,Place, Situation Language Function Ability No Deficits Noted Safety Awareness Understands Safety Issues Memory Description No Deficits Noted Gross Range of Motion Lower Extremity ROM Assessment Within Functional Limits Strength Lower Extremity Strength Hip 4-/5 Knee 4-/5 Coordination Assessment Gross Coordination Gross Coordination WNL Sensation Assessment Sensation Gross Sensation WNL Muscle Tone Muscle Tone WNL Yes M6 PT-IP Treatment Start: 10/19/19 10:18 Freq: NEEDED Status: Active Protocol: Document 10/19/19 14:55 AB (Rec: 10/19/19 15:40 AB [id number]) Physical Therapy Treatment Education Education Provided Precautions,Safety M7 PT-IP Assessment and Plan Start: 10/19/19 10:18 Freq: NEEDED Status: Active Protocol: Document 10/19/19 14:55 AB (Rec: 10/19/19 15:40 AB [id number]) PT Summary Assessment and Plan Potential Rehabilitation Potential Good Summary Impairments Pain,ROM,Strength,Balance, Coordination,Sensation,Bed Mobility,Transfers,Gait, Activity Tolerance Progress Towards Goals Slow Progress due to Pain,Slow Progress due to Activity Tolerance Assessment Summary pt progressing slowly and was able to ambulate this afternoon using FWW min A but was not able to walk much due to c/o pain and has decrease activity tolerance. pt plans to go home and spouse to assist her. caregiver training will be conducted when appropriate and also has to complete stair training prior to d/c . Goals Bed Mobility Goal Standby Assistance Transfer Goal Standby Assistance,Front Wheeled Walker Gait Goal Standby Assistance,Front Wheel Walker Gait Distance 150 Other Goals up/down 15 steps with bilateral rails SBA Days to Meet Goals 5 Frequency of Treatment Frequency Of Treatment Twice a Day Treatment Plan Physical Therapy Treatment Plan Bed Mobility Training,Transfer Training,Gait Training, Therapeutic Exercise,Balance Retraining,Post Op Education, Discharge Planning,Hot or Cold Pack,Neuromuscular Re-ed, Coordination Retraining,Manual Therapy Recommendations To Nursing Amount of Assist Needed 1 Person Assist Discharge Recommendations PT Discharge Recommendations Home with Assistance
--- NOTE | 2019-10-19 15:40 | CM.DPC ---
DCP Cont: Met with patient in her room, was talking to pastor Jeffery. Introduced self and role. Patient alert and oriented, pleasant. She resides on [facility] with her . Stated that they also have a special needs son that lives with him, who is in a power chair. Patient is independent. Has been up ambulating. Just finished working with [employer]. 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 Stated that her and her enjoy living on [place], is more remote, and enjoy the surrounding wild life. P: Patient should be able to go home when she is medically stable, and should not have any needs. Will continue to follow. Sherita Lopez RN/Family Specialist
[2019-10-19] MEDS: SODIUM CHLORIDE 0.9% 1,000 ML 21 ML IV (16:15)
[2019-10-19] MEDS: HYDROMORPHONE 2 MG TABLET 4 MG PO ×2 (19:07→21:50)
[2019-10-19] MEDS: ATORVASTATIN 10 MG TABLET PO (21:41)
[2019-10-19] MEDS: CIPROFLOXACIN 500 MG TABLET PO (21:41)
[2019-10-19] MEDS: GABAPENTIN 300 MG CAPSULE PO (21:42)
[2019-10-19] MEDS: SENNOSIDES 8.6 MG TABLET 17.2 MG PO (21:43)
[2019-10-20] VITALS (14 sets, daily range): BP systolic 96–151; BP diastolic 58–84; PULSE 83–157; RESP 12–25; TEMP 36.8–38.3; O2SAT 91–97
[2019-10-20] MEDS: HYDROMORPHONE 2 MG TABLET 4 MG PO ×8 (01:01→23:18)
[2019-10-20] MEDS: diphenhydrAMINE 50 MG/ML VIAL 25 MG IV (01:09)
[2019-10-20] MEDS: TRAZODONE 50 MG TABLET PO (01:10)
[2019-10-20] MEDS: HYDROMORPHONE 0.5 MG INJ IV ×2 (03:19→05:51)
--- NOTE | 2019-10-20 04:11 | PC.NURSE ---
Pain has been an issue this shift. Had made a plan to medicate through the night waking for pain med when time. Patient unable to wait time allowed, before needing IV breakthrough pain management.
[2019-10-20] MEDS: hydrOXYzine pamoate 25 MG CAPSULE PO ×2 (04:24→10:58)
[2019-10-20] MEDS: LEVOTHYROXINE 75 MCG TABLET PO (05:50)
[2019-10-20] MEDS: ACETAMINOPHEN 325 MG TABLET 650 MG PO ×3 (05:51→23:18)
[2019-10-20] MEDS: DOCUSATE 100 MG CAPSULE PO ×2 (07:40→20:00)
[2019-10-20] MEDS: OXYBUTYNIN 5 MG TABLET PO ×2 (07:40→20:00)
[2019-10-20] MEDS: glipiZIDE 5 MG TABLET PO (07:41)
[2019-10-20] MEDS: MULTIVITAMIN 1 TABLET 1 TAB PO (07:41)
[2019-10-20] MEDS: CHOLECALCIFEROL (VITAMIN D3) 1,000 UNIT TABLET 1000 UNIT PO (07:41)
[2019-10-20] MEDS: PANTOPRAZOLE 20 MG TABLET PO (07:42)
[2019-10-20] MEDS: SODIUM CHLORIDE 0.9% 1,000 ML 21 ML IV (08:25)
[2019-10-20 08:32] LABS: Add Manual Diff / Slide Review NO; Basophils Absolute Auto 0 /uL (0-100); Basophils Percent Auto 0.1 % (0-2); Eosinophils Absolute Auto 100 /uL (0-450); Eosinophils Percent Auto 1.6 % (2-4); Hematocrit 32.6 % (36-46); Hemoglobin 10.7 g/dL (12.0-16.0); Lymphocytes Absolute Auto 800 /uL (1100-4500); Mean Corpuscular HGB Conc 32.8 % (30-36); Mean Corpuscular Hemoglobin 31.7 PG (26-34); Mean Corpuscular Volume 96.4 fL (80-100); Monocytes Absolute Auto 1000 /uL (0-900); Monocytes Percent Auto 11.9 % (3-14); Neutrophils Absolute Auto 6400 /uL (1500-7000); Neutrophils Percent Auto 76.4 % (50-75); Platelet Count 218 X10^3/uL (150-400); Red Blood Cell Count 3.38 X10^6/uL (4.0-5.2); Red Cell Distribution Width 14.4 % (11.6-14.8); White Blood Cell Count 8.3 X10^3/uL (4.5-11.0)
[2019-10-20 08:46] LABS: BUN Creatinine Ratio 14.5 (6-22); Blood Urea Nitrogen 16 mg/dL (7-17); Calcium 8.2 mg/dL (8.4-10.2); Carbon Dioxide 25 mmol/L (22-32); Chloride 100 mmol/L (98-107); Estimated Glomerular Filt Rate 48.8 mL/min (>60); Glucose 244 mg/dL (80-110); HEMOLYSIS < 15 (0-50); Potassium 4.1 mmol/L (3.4-5.1); Sodium 132 mmol/L (137-145)
--- NOTE | 2019-10-20 08:53 | PM.PNPO.1 ---
Subjective Subjective Date Patient Seen: 10/20/19 Time Patient Seen: 08:54 Interval history: Shirin is a 74-year-old female postop day 2 status post L2 through [address] Hager. Yesterday she had intractable back pain that has improved with changing the 10 mg of oxycodone to oral Dilaudid. Through the day yesterday blood pressures remained systolics in the 131 40s and mild tachycardia covering right around 100 beats per minute. This morning on morning vital signs she had tachycardia up to 160 beats per minute. Blood pressure was also lower a 96 systolic. Patient reported some very mild chest pulling with certain movements but otherwise no pain and no shortness of breath. She was satting in the 90s on room air and in no distress. Vital signs were called to the doctor international nurse. New labs were ordered as well as cardiac monitoring and EKG. Patient denies any dizziness headache nausea or vomiting, no current complaints Exam Vital Signs (past 8 hours): - 10/20/19 05:37 10/20/19 08:03 Temperature 98.4 F 98.4 F Pulse Rate 100 H 157 H Respiratory Rate 17 18 Blood Pressure 133/69 96/66 Pulse Oximetry 92 91 Oxygen Delivery Method Room Air Oxygen Flow Rate 0 Narrative Exam Narrative: General: Alert oriented female in no acute distress sitting in bed. Pain controlled HEENT exam: Normocephalic atraumatic Respiratory exam: Unlabored on room air. Lungs clear to auscultation bilaterally no wheezing Abdomen: Soft and nontender CV exam: Sinus tachycardia regular rate-tachycardic rhythm : [place] in place Musculoskeletal exam: Spine exam back dressing clean dry and intact. Moving bilateral lower extremities without difficulty. Sensation grossly intact to light touch bilateral. Demonstrates active dorsiflexion plantar flexion Objective Labs Result Diagrams: 10/20/19 08:25 10/20/19 08:25 Labs: Laboratory Results - last 24 hr 10/20/19 10/20/19 08:25 08:25 WBC 8.3 RBC 3.38 L Hgb 10.7 L Hct 32.6 L MCV 96.4 MCH 31.7 MCHC 32.8 RDW 14.4 Plt Count 218 Neut % (Auto) 76.4 H Lymph % (Auto) 10.0 L [place] % (Auto) 11.9 Eos % (Auto) 1.6 L Baso % (Auto) 0.1 Neut # (Auto) 6400 Lymph # (Auto) 800 L [place] # (Auto) 1000 H Eos # (Auto) 100 Baso # (Auto) 0 Sodium 132 L Potassium 4.1 Chloride 100 Carbon Dioxide 25 BUN 16 Creatinine 1.10 H Estimated GFR 48.8 L BUN/Creatinine Ratio 14.5 Glucose 244 H Calcium 8.2 L Assessment & Plan Post-op Assessment and plan (1) Supraventricular tachycardia by ECG: (2) Acute blood loss anemia: Postoperative Procedures: Procedures Operation Date: 10/18/19 07:45 Actual Procedures Side Surgeon p L4-5 Hardware removal , L2-3, L3-4 Translaminar lumbar interbody fusion, L1-2 right hemilaminectomy, L2-5 PSF w/ instrumentation Ricky Hager MD 1. posterior spinal fusion: Postop day 2 posterior spinal fusion. Dressing clean dry and intact. Standard postoperative care and precautions. 2. Supraventricular tachycardia: Minimal symptoms. Will give bolus for hypotension and tachycardia. Cardiac monitoring, will obtain troponins and hospitalist consult. Kindly appreciate hospitalist evaluation of this patient. 3. Postop blood loss anemia- Mild postop anemia a does not meet transfusion criteria this time. 4. [place] catheter: Will continue while stabilizing boluses. Once patient is able to be more ambulatory will be removed 5. DVT prophylaxis: SCDs bilaterally Quality VTE Deep Vein Thrombosis/Pulmonary Embolism Present on Admission: No
[2019-10-20] MEDS: ADENOSINE 6 MG/2 ML VIAL IV (09:13)
[2019-10-20] MEDS: ADENOSINE 6 MG/2 ML VIAL 12 MG IV (09:15)
[2019-10-20 09:26] LABS: Creatine Kinase 1596 U/L (30-135)
[2019-10-20] MEDS: DILTIAZEM 125 MG/125 ML PIGGYBACK IV (09:30)
[2019-10-20 09:39] LABS: Troponin I 0.082 ng/mL (0.01-0.034)
[2019-10-20 09:42] LABS: CKMB % Relative Index 0.3 % (1.5-5.0); Creatine Kinase MB 4.82 ng/mL (<2.37)
--- NOTE | 2019-10-20 10:03 | PT-IP ANOTE ---
Pt transferred to ICU due to increased HR, per Dr. Treviño hold pt today.
--- NOTE | 2019-10-20 10:33 | PC.NURSE ---
LATE ENTRY: TACHY 157 APICAL: ON AM ASSESSMENT PATIENT STATES HAD A GOOD NIGHT, PAIN BETTER CONTROLLED, DENIES N/V. HOWEVER HR NOTED TO BE 161 PER PULSE OX MONITOR WITH SAT 91% ON RA. APICAL HR 157. BP 96/66 WHICH IS A DROP FROM HER PREVIOUS READINGS. ASYMPTOMATIC OF ANY ABNORMAL HEART SENSATIONS AND DENIES SOB. LUNGS CLEAR BUT FEW COARSE CRACKLES LLL. PATIENT DB&C W/ SAT UP TO 94% AND DRIFT BACK DOWN TO 91% CALLED DR. BALES, OBTAINED ORDERS FOR LABS, BOLUS, EKG. ALL ORDERS ENTERED. DR. BALES ARRIVED SHORTLY THEREAFTER AND ORDERED HOSPITALIST CONSULT. DR. BOO ARRIVED SHORTLY AFTER. PATIENT RECIEVED APPROX 200CC'S OF HER NS BOLUS WHEN HER IV INFILTRATED. MULT ATTEMPTS BY 2 NURSES WITHOUT SUCCESS. ER NURSE CALLED UP AND OBTAINED 20G IN L AC. TELE PLACED. DR. BOO ORDERED ADENOSINE. HUMAN SERVICES INSTRUCTOR ANDREA AND CHARGE NURSE NEDA AT BEDSIDE. SAT 88% ON RA. 2L/NC APPLIED WITH SAT IMPROVED TO 95%. CODE CART AT BEDSIDE AND LEADS ATTACHED TO PATIENT FOR MONITORING OF HEART RHYTHM AT BEDSIDE. 0914: BP 133/64, SINUS TACH 151. 6 MG ADENOSINE PUSHED BY HUMAN SERVICES INSTRUCTOR. ONCE ADENOSINE TOOK EFFECT, HR 119. REPEAT BP CHECK 131/62. 12MG ADENIOSINE PUSHED BY HUMAN SERVICES INSTRUCTOR AT 0916 PER MD VERBAL ORDER AT BEDSIDE. ONCE TOOK EFFECT HR BRIEFLY DOWN TO 94 THEN BACK UP TO 120'S. MD ORDER TO TRANSF PATIENT TO ICU FOR DILT DRIP. PATIENT TRANSF ON MONITOR TO ICU AND REPORT GIVEN TO ROSA ELENA Desai
--- NOTE | 2019-10-20 10:46 | DI.ECHO.S_ITS ---
[facility] +---------+ : : [address] : [address] : : : : [id number] : : : : Phone: [phone]+ Echocardiogram Report + + :Name: SENG AGUILLON Study Date: 10/21/2019 Height: 59 in : :[facility] Weight: 194 lb : : Gender: Female BSA: 1.8 m2 : :: 1945 Age: 74 yrs BP: 133/61 mmHg: :Reason For Study: SVT : : Performed By: Betito Jang : :Referring: REGINE BOO : + + Interpretation Summary Left ventricular systolic function is normal without focal wall motion abnormalities with the ejection fraction visually estimated to be 60-65%. There is borderline concentric left ventricular hypertrophy but diastolic parameters suggest probable normal left ventricular diastolic function and normal filling pressures. The right ventricle is normal in size and function. Pulmonary artery pressures cannot be estimated because of the lack of a measurable TR jet velocity but the IVC suggests a CVP of around 8 mmHg. Both atria are normal in size. There is no significant valvular heart disease. Procedure: A two-dimensional transthoracic echocardiogram with color flow and Doppler was performed. The study quality was technically adequate. There is no prior echocardiogram noted for this patient. The patient was in normal sinus rhythm during the exam. Left Ventricle: The left ventricle is normal in size. There is borderline concentric left ventricular hypertrophy. Left ventricular systolic function is normal without focal wall motion abnormalities. The ejection fraction is estimated to be 60-65%. Diastolic parameters suggest probable normal left ventricular diastolic function and normal filling pressures. Right Ventricle: The right ventricle is normal in size and function. Atria: Both atria are normal in size. The interatrial septum is intact with no evidence for an atrial septal defect. Mitral Valve: There is slight calcification extending into the subvalvular apparatus. The mitral valve leaflets appear normal. There is no evidence of stenosis, fluttering, or prolapse. There is trace mitral regurgitation. Aortic Valve: The aortic valve is trileaflet. The aortic valve is slightly calcified. The aortic valve opens well. No aortic regurgitation is present. Tricuspid Valve: The tricuspid valve is normal in structure and function. There is trace tricuspid regurgitation. Pulmonary artery pressures cannot be estimated because of the lack of a measurable TR jet velocity but the IVC suggests a CVP of around 8 mmHg. Pulmonic Valve: The pulmonic valve is not well visualized. There is trace pulmonic regurgitation. There is no significant valvular heart disease. Great Vessels: The aortic root is normal size. The dimensions of the ascending aorta are normal. The pulmonary artery is normal size. The IVC is dilated (diameter is greater than 2.1 cm) yet it collapses greater than 50% with a sniff. This suggests a right atrial pressure of 8 mm Hg. Pericardium/ Pleura There is no pericardial effusion. There is no pleural effusion. MMode/2D Measurements & Calculations LVIDd: 3.2 cm LVOT diam: 2.0 cm LVIDs: 2.3 cm Ao root diam: 3.2 cm FS: 27.3 % Aortic Jxn: 2.6 cm EPSS: 0.91 cm asc Aorta Diam: 2.9 cm IVSd: 1.2 cm LVPWd: 1.1 cm LV bai. diameter/BSA (cm/m^2): 1.7 LV sys. diameter/BSA (cm/m^2): 1.3 LA A2 area: 19.1 cm2 RA long axis: 4.3 cm LA A4 area: 17.2 cm2 RA area: 11.4 cm2 LA length (vol): 5.1 cm RA vol: 25.9 ml LA vol: 54.3 ml RA : 14.2 ml/m2 LA vol index: 29.8 ml/m2 TAPSE: 2.0 cm Doppler Measurements & Calculations Ao V2 max: 122.5 cm/sec LVOT Max Daniel: 95.9 cm/sec Ao V2 mean: 84.0 cm/sec LV V1 max P.7 mmHg Ao max P.0 mmHg LV V1 VTI: 20.8 cm Ao mean P.1 mmHg IDLAN(I,D): 2.3 cm2 Ao V2 VTI: 28.0 cm DILAN(V,D): 2.4 cm2 sev ratio: 0.74 DILAN indexed to BSA (cm^2/m^2): 1.2 MV E max daniel: 99.1 cm/sec PA V2 max: 59.0 cm/sec MV A max daniel: 115.0 cm/sec PA V2 mean: 44.5 cm/sec MV E/A: 0.86 PA mean P.88 mmHg Med Peak E' Daniel: 7.9 cm/sec PA Accel Time: 0.12 sec E/E' med: 12.5 Lat Peak E' Daniel: 7.0 cm/sec E/E' lat: 14.1 E/e' average: 13.3 MV dec time: 0.27 sec SV(LVOT): 62.9 ml Reading Physician:RAINA
--- NOTE | 2019-10-20 10:56 | DI.US.S_ITS ---
PROCEDURE: US PERIPH VENOUS LOW EXTREM BI INDICATIONS: POST OP COMPLICATIONS TECHNIQUE: Real-time imaging, as well as color and pulse Doppler interrogation, were performed of the deep veins of both legs from the inguinal ligament to the popliteal fossa. COMPARISON: None. FINDINGS: Right: The common femoral, femoral and popliteal veins are normally compressible, and free of intraluminal thrombus. Color and pulse Doppler demonstrate normal phasic intravascular flow. There is normal augmentation response to distal compression maneuver. Left: The common femoral, femoral and popliteal veins are normally compressible, and free of intraluminal thrombus. Color and pulse Doppler demonstrate normal phasic intravascular flow. There is normal augmentation response to distal compression maneuver. IMPRESSION: No deep vein thrombosis of the bilateral lower extremities. Dictated by: Destiny Sanders M.D. on 10/20/2019 at 14:40 Approved by: Destiny Sanders M.D. on 10/20/2019 at 14:41
--- NOTE | 2019-10-20 10:59 | PM.CN ---
History of Present Illness Consult details Date Patient Seen: 10/20/19 Chief complaint: [id number] Reason for consult: Supraventricular tachycardia Requesting provider: Briseida Lazo Narrative: Patient is a 74-year-old female who is 2 days status post T-LIFF, with a history of chronic back pain, hypertension, hyperlipidemia, hypothyroidism, chronic kidney disease stage 2, neuropathy, rheumatoid arthritis, type 2 diabetes, morbid obesity, who was noted to have heart rate of 160. She denies any shortness of breath, however the patient was found to be hypoxic with O2 sat of 80% on room air. The patient describes some chest discomfort which she relates to lying on her chest during her procedure. She has no palpitations or chest pain per se. The patient had a 12 lead EKG obtained. This revealed supraventricular tachycardia with a heart rate of 160. She denies any history of cardiac disease, no history of palpitations, no history of atrial fibrillation. The patient was given 6 mg of adenosine and her heart rate slowed but then return to the 120s. She was given 12 mg of adenosine and again had a slowing of her heart rate but then increase to 120. The patient was transferred to the intensive care unit, she was started on Cardizem, with that she had improvement of her heart rate. Of note the patient has a severe allergy to iodine, she has known anaphylactic reaction to iodine. She has no swelling in her legs, she denies any orthopnea or PND, further review of systems is negative. Patient is noted to have a low-grade fever to 100.9. In the intensive care unit on 10 mg of Cardizem her heart rate is now 97. Patient is asymptomatic and without complaints. [facility] Medical History Anxiety (Acute) BCC (basal cell carcinoma) (Acute) Carpal tunnel syndrome (Resolved Unknown) Chickenpox (Resolved Unknown) Chronic back pain (Chronic Unknown) Chronic pain (Acute) Colon polyps (Resolved Unknown) Degenerative disc disease, lumbar (Acute) Depression (Acute) Easy bruisability (Acute) Glaucoma (Acute) Hyperlipemia (Chronic Unknown) Hypertension (Chronic Unknown) Hypothyroidism (Chronic Unknown) Kidney disease (Chronic Unknown) Measles (Resolved Unknown) Migraines (Chronic Unknown) Mumps (Resolved Unknown) Neuropathy (Chronic Unknown) Rheumatoid arthritis (Chronic Unknown) Skin cancer (Resolved Unknown) Surgical History H/O colectomy (Acute ~2016) History of arthroscopy of right shoulder (Resolved 07/2012) History of carpal tunnel surgery (Resolved 1981) History of lumbar surgery (Resolved Unknown) History of ovarian cystectomy (Acute ~1974) Hx of appendectomy (Resolved 03/2017) Hx of bilateral cataract extraction (Acute) Hx of cholecystectomy (Resolved 1983) Hx of eye surgery (Acute) Hx of hernia repair (Resolved 04/2011) Hx of laparoscopy (Resolved 03/2017) Hx of lithotripsy (Resolved ~03/2017) Hx of tubal ligation (Resolved 1976) Family History Father Diabetes mellitus Mother Mental health problem Sister Cancer Brother No problems noted. Social History household members: spouse and children Smoking Status: Never smoker alcohol intake: current Meds Home Medications and Allergies Home Medications Medication Instructions Recorded Confirmed Type cranberry 1 cap PO BID #0 10/04/11 10/18/19 History multivitamin 1 tab PO DAILY #0 10/04/11 10/18/19 History Probiotic 1 cap PO DAILY #0 01/15/13 10/18/19 History aspirin 81 mg PO DAILY #0 03/19/13 10/18/19 History Imodium A-D 2 dose PO BID PRN #0 07/04/17 10/18/19 History cholecalciferol (vitamin D3) 1,000 units PO DAILY #0 07/04/17 10/18/19 History [Vitamin D3] leflunomide 20 mg PO QDAY #0 07/04/17 10/18/19 History sulfasalazine 1,500 mg PO BID #0 07/04/17 10/18/19 History glucose test strips #100 each 11/28/18 10/18/19 Rx oxybutynin chloride 5 mg tablet 5 mg PO BID #180 tab 02/19/19 10/18/19 Rx trazodone 50 mg tablet 50 mg PO BEDTIME PRN #30 tab 05/08/19 10/18/19 Rx metformin 500 mg tablet,extended 500 mg PO BID #60 tab 05/27/19 10/18/19 Rx release 24 hr *B-D 3ML SYRINGE 1 ea MISCELLANEOUS SEE INSTRUCTIONS 05/28/19 10/18/19 History atorvastatin 10 mg tablet 10 mg PO BEDTIME #90 tab 05/28/19 10/18/19 Rx fenofibrate 160 mg tablet 160 mg PO DAILY #90 tab 05/28/19 10/18/19 Rx gabapentin 300 mg capsule 300 mg PO BEDTIME #90 cap 05/28/19 10/18/19 Rx levothyroxine 75 mcg tablet 75 mcg PO DAILY #90 tab 05/28/19 10/18/19 Rx nystatin 1 raymond TOPICAL DAILY 05/28/19 10/10/19 History losartan 100 mg tablet 100 mg PO DAILY #90 tab 07/15/19 10/18/19 Rx glipizide 10 mg tablet 5 mg PO BID #90 tab 08/06/19 10/18/19 Rx hydrocodone 5 mg-acetaminophen 325 1 tab PO Q4-6H PRN #60 tab 08/20/19 10/18/19 Rx mg tablet omeprazole 20 mg capsule,delayed 20 mg PO DAILY #30 cap 08/28/19 10/18/19 Rx release tofacitinib 11 mg tablet,extended 11 mg PO DAILY 08/28/19 10/18/19 History release 24 hr ciprofloxacin HCl 500 mg tablet 500 mg PO BEDTIME #90 tab 10/01/19 10/18/19 Rx acetaminophen [Tylenol Arthritis 1,300 mg PO Q12H PRN 10/10/19 10/18/19 History Pain] albuterol sulfate [ProAir HFA] 2 puff INHALATION QID PRN 10/10/19 10/10/19 History cyclobenzaprine 10 mg PO BID 10/10/19 10/18/19 History blood-glucose meter #1 each 10/11/19 10/18/19 Rx Allergies Allergy/AdvReac Type Severity Reaction Status Date / Time Iodine and Iodide Containing Allergy Severe Anaphylaxis Verified 10/10/19 14:10 Produc povidone-iodine Allergy Severe Anaphylaxis Verified 10/10/19 14:10 [From Betadine] shellfish derived Allergy Severe Anaphylaxis Verified 10/18/19 15:06 soap [From Betadine] Allergy Severe Anaphylaxis Verified 10/10/19 14:10 tramadol AdvReac Severe Vomiting Verified 10/18/19 15:06 Penicillins AdvReac Unknown Family has Verified 10/18/19 15:06 had issues with penicillin [employer] Allergy Severe Anaphylaxis Uncoded 10/10/19 14:10 FISH PROTEIN Allergy Severe Anaphylaxis Uncoded 10/10/19 14:10 Review of Systems Review of Systems ROS Unobtainable: All systems reviewed & are unremarkable except as noted in HPI and below Exam Vital Signs (past 8 hours): - 10/20/19 05:37 10/20/19 08:03 10/20/19 09:32 Temperature 98.4 F 98.4 F 100.9 F H Pulse Rate 100 H 157 H 115 H Respiratory Rate 17 18 19 Blood Pressure 133/69 96/66 128/70 Pulse Oximetry 92 91 95 10/20/19 09:42 10/20/19 10:08 Temperature Pulse Rate 157 H 105 H Respiratory Rate 19 Blood Pressure 96/66 112/84 Pulse Oximetry 95 Oxygen Delivery Method Nasal Cannula Oxygen Flow Rate 2 Narrative Exam Narrative: Pleasant elderly female resting comfortably in no obvious distress HEENT: Normocephalic atraumatic, extraocular muscles are intact, oropharynx is clear, neck is supple Lungs: Clear to auscultation, no crackles rhonchi or wheezes Cardiac exam: Tachycardic regular rate and rhythm normal S1-S2 Abdomen: Soft nontender nondistended, no appreciable hepatosplenomegaly Extremities: No edema Objective Labs Result Diagrams: 10/20/19 08:25 10/20/19 08:25 Labs: Laboratory Results - last 24 hr 10/20/19 10/20/19 10/20/19 08:25 08:25 08:30 WBC 8.3 RBC 3.38 L Hgb 10.7 L Hct 32.6 L MCV 96.4 MCH 31.7 MCHC 32.8 RDW 14.4 Plt Count 218 Neut % (Auto) 76.4 H Lymph % (Auto) 10.0 L Caroline % (Auto) 11.9 Eos % (Auto) 1.6 L Baso % (Auto) 0.1 Neut # (Auto) 6400 Lymph # (Auto) 800 L Caroline # (Auto) 1000 H Eos # (Auto) 100 Baso # (Auto) 0 Sodium 132 L Potassium 4.1 Chloride 100 Carbon Dioxide 25 BUN 16 Creatinine 1.10 H Estimated GFR 48.8 L BUN/Creatinine Ratio 14.5 Glucose 244 H Calcium 8.2 L Total Creatine Kinase 1596 H CK-MB (CK-2) 4.82 H CK-MB (CK-2) Rel Index 0.3 L Troponin I 0.082 H Assessment & Plan Assessment & Plan narrative: Impression 1. 74-year-old female status post T liff procedure for lumbar stenosis. Patient uneventful surgery 2 days ago. She has been asymptomatic except for minimal back pain. 2. Supraventricular tachycardia -patient developed a rapid heart rate to 160 -minimal response to adenosine 6 mg and 12 mg -on Cardizem drip at 10 mg with improved heart rate -patient noted to be initially hypoxic, concern raised for possible pulmonary embolus given recent surgery, obesity, other risk factors -patient with known anaphylactic reaction to iodine, will obtain D-dimer, bilateral lower extremity ultrasound to rule out DVT. -if the patient is found to have a DVT will anticoagulate, if no DVT present on Doppler consider V/Q scan tomorrow 3. Type 2 myocardial infarction -initial troponin at 0.082 -will continue serial troponins until they have peak suspect troponin leak related to tachycardia -will obtain 2D echo in the morning to evaluate LV function and any wall motion abnormalities -given recent surgery will defer anticoagulation at this time, will continue with aspirin 4. Hypoxia acute respiratory failure, improved -initial oxygen saturation during her episode was 88%, she currently is at 91% on room air -will will obtain chest x-ray, BNP, and review echo tomorrow -continue oxygen for saturation of less than 92% 5. Type 2 diabetes, present on admission -will discontinue oral hypoglycemic agents -continue with correctional insulin -will start low-dose basal insulin, Lantus at 10 units until the patient can resume oral medications at discharge 6. Hypertension -patient previously on an EMILY-inhibitor, now on IV Cardizem, may need beta-marisel depending on serial enzymes and echo result 7. Hyperlipidemia, chronic -continue statin 8. Frequent urinary tract infection -patient is on suppressive therapy with ciprofloxacin at 500 mg daily, will continue 9. Hypothyroidism -continue L-thyroxine 10. Diabetic polyneuropathy -continue gabapentin 11. GERD -continue PPI 12. Rheumatoid arthritis, chronic -sulfasalazine and leflunomide on hold at this time will resume when patient is able to take 13. Morbid obesity
--- NOTE | 2019-10-20 11:19 | DI.RAD.S_ITS ---
PROCEDURE: XR CHEST 1V INDICATIONS: SVT/Hypoxia TECHNIQUE: One view of the chest was acquired. COMPARISON: [facility], , CHEST 2 VIEW, 10/04/2011, 9:40. FINDINGS: Surgical changes and devices: None. Lungs and pleura: Lungs are clear. No pleural effusions or pneumothorax. Mediastinum: Mediastinal contours appear normal. Heart size is normal. Bones and chest wall: No suspicious bony lesions. Overlying soft tissues appear unremarkable. IMPRESSION: No acute cardiopulmonary findings. Dictated by: Destiny Sanders M.D. on 10/20/2019 at 10:39 Approved by: Destiny Sanders M.D. on 10/20/2019 at 10:40
[2019-10-20] MEDS: INSULIN ASPART 100 UNIT/ML INSULN PEN SUBCUT ×3 (12:26→20:15)
[2019-10-20] MEDS: SODIUM CHLORIDE 0.9% 1,000 ML 100 ML IV ×2 (13:47→23:14)
--- NOTE | 2019-10-20 14:29 | PC.NURSE ---
PT ADMITTED TO ICU FOLLOWING EPISODE OF SVT - RESPONDING TO DOSE X 2 OF ADENOSINE- SHE IS POD #2 FOR T-LIF. SHE ARRIVED TO ICU APPROX 0930 AND STARTED ON DILT GTT PER MD ORDERS WITH A GOAL OF HR <100 BPM SHE IS NOW AT 10MG/H OF DILTIAZEM WELL NS AT 1OOCC/H - REQUIRING 2L NC FOR SPO2 >92% - ROOM AIR SPO2 86-90% - PAIN TO BACK INCISION SITE RATES FROM 4-9/10 AND CURRENT PLAN OF PO DILAUDID Q 3 H WITH PRN VISTARIL HAS BEEN EFFECTIVE- JERZY PATENT
[2019-10-20 15:01] LABS: B Type Natriuretic Peptide 150 (<100); D Dimer 663 ng/mL (<230)
[2019-10-20 15:15] LABS: Troponin I 0.336 ng/mL (0.01-0.034)
--- NOTE | 2019-10-20 15:51 | PC.NURSE ---
Addendum entered by Dana Hernandez R.N. 10/20/19 23:25: Pt Vitals Stable, tolerating 2LNC while sleeping well. Urine output adequate. Using IS well, improvement on inspiration volume. Surgical dressing changed. Island dressing used, no s/s/ infection on two stapled incisions. Purple bruising noted throughout. Turned and repositioned to left lateral. Given 4mg PO Dilaudid for pain 7/10. Third troponin trending down at 0.321. HR remains in 80s SR. No ectopy Addendum entered by Dana Hernandez R.N. 10/20/19 21:39: Pt HR up to 120s for a brief moment, Tele strip in folder. Asleep, asymptomatic. Will cont to monitor. INOCENCIO Wren notified. Addendum entered by Dana Hernandez R.N. 10/20/19 19:35: Pt OOB to chair, assist x1. 96% on RA. Tolerated well. Took a few steps with walker, slow steady gait noted. Addendum entered by Dana Hernandez R.N. 10/20/19 16:41: Pt asymptomatic in bed, EKG complete, Dilt gtt off at 1620. 325mg ASA given. PO Lopressor started. Will continue Q6hrs. Next troponin to be at 2200. Original Note: Pt c HR 92 SR, no ectopy noted. Pt denies CP, SOB. Dilt gtt @10ml/hr. LAC 18 g with NS@100. SCDs in place bilaterally. Pt remains on tele. Second troponin returned at critical result, Dr Treviño notified- 0.336. Bilateral LE U/S completed- will await results. Denies nausea on regular diet being tolerated. Soft, nondistended, nontender. Passing gas per patient. Blood Sugars AC and HS with Lantus scheduled for this evening. [place] with mary colored urine. 250mL total for day shift. Will monitor with Q2HR vitals. Pain to lower back 7/10. Will continue on scheduled meds and add in prn to achieve goal of 5/10 pain. Pt would like to have a BM. Will cont on bowel regimen and increase as needed. Family at bedside. All concerns and questions addressed for patient and spouse.
[2019-10-20] MEDS: MAGNESIUM HYDROXIDE 30 ML UDC PO (16:18)
[2019-10-20] MEDS: METOPROLOL IR 50 MG TABLET PO ×2 (16:18→22:02)
[2019-10-20] MEDS: ASPIRIN 325 MG TABLET PO (16:18)
[2019-10-20] MEDS: INSULIN GLARGINE 100 UNIT/ML 3ML PEN 15 UNIT SUBCUT (16:35)
[2019-10-20] MEDS: ENOXAPARIN 100 MG/ML SYRINGE 90 MG SUBCUT (16:47)
--- NOTE | 2019-10-20 16:53 | PM.EVENT ---
Event Note Date Patient Seen: 10/20/19 Event Note: The patient is a 74-year-old female who developed SVT postoperatively. She has 2 days status post lumbar surgery. Her heart rate this morning was 160. The patient has had no chest pain. She had some minimal shortness of breath. She was initially treated with a Cardizem drip with improvement of her rate. Her initial troponin came back at 0.082 and subsequently 0.336. As the patient is without symptoms and her repeat EKG shows no ST T-wave abnormalities her Lovenox will be discontinued. The patient will be continued on an aspirin and a beta-marisel for rate control. I will obtain a cardiology consultation tomorrow for further discussion regarding management of her heart rate an SVT.
--- NOTE | 2019-10-20 18:30 | DI.NM.S_ITS ---
PROCEDURE: NM PUL VENT AND PERFUSION RADIOPHARMACEUTICAL: 36.5 mCi Tc-99m DTPA aerosol by inhalation and 8.2 mCi Tc-99m MAA intravenously. INDICATIONS: r/o PE TECHNIQUE: Ventilation images were obtained first with Tc-99m DTPA aerosol. Subsequently, perfusion images were acquired after intravenous injection of Tc-99m MAA. Anterior, posterior, MENDEZ, MALIAN, RPO, LPO, left and right lateral views were obtained. COMPARISON: None. FINDINGS: Single moderate matched defect involving the right upper lobe superior segment. No definite mismatched defects identified. IMPRESSION: Low probability examination Dictated by: Jorge Wren M.D. on 10/21/2019 at 13:52 Approved by: Jorge Wren M.D. on 10/21/2019 at 13:54
[2019-10-20] MEDS: GABAPENTIN 300 MG CAPSULE PO (19:59)
[2019-10-20] MEDS: CIPROFLOXACIN 500 MG TABLET PO (20:00)
[2019-10-20] MEDS: ATORVASTATIN 10 MG TABLET PO (20:00)
[2019-10-20] MEDS: SENNOSIDES 8.6 MG TABLET 17.2 MG PO (20:00)
[2019-10-20 22:39] LABS: Troponin I 0.321 ng/mL (0.01-0.034)
[2019-10-21] VITALS (14 sets, daily range): BP systolic 116–180; BP diastolic 49–105; PULSE 67–146; RESP 13–21; TEMP 36.2–36.9; O2SAT 94–99
--- NOTE | 2019-10-21 01:53 | PC.NURSE ---
Contract Loader Note: 0010: Awake, resting in bed on lt side. Vital signs stable. HR 83. IV in place in lt AC with NS infusing at 100cc/hr. SCDs on. Pt states she is comfortable and is not having pain at this time.
[2019-10-21] MEDS: HYDROMORPHONE 2 MG TABLET 4 MG PO ×7 (02:45→22:47)
[2019-10-21] MEDS: METOPROLOL IR 50 MG TABLET PO ×2 (04:38→11:09)
[2019-10-21 05:03] LABS: Add Manual Diff / Slide Review NO; Basophils Absolute Auto 0 /uL (0-100); Basophils Percent Auto 0.3 % (0-2); Eosinophils Absolute Auto 200 /uL (0-450); Eosinophils Percent Auto 4.8 % (2-4); Hematocrit 28.6 % (36-46); Hemoglobin 9.6 g/dL (12.0-16.0); Lymphocytes Absolute Auto 700 /uL (1100-4500); Lymphocytes Percent Auto 13.9 % (25-40); Mean Corpuscular HGB Conc 33.6 % (30-36); Mean Corpuscular Hemoglobin 32.3 PG (26-34); Monocytes Absolute Auto 600 /uL (0-900); Monocytes Percent Auto 11.3 % (3-14); Neutrophils Absolute Auto 3500 /uL (1500-7000); Neutrophils Percent Auto 69.7 % (50-75); Platelet Count 188 X10^3/uL (150-400); Red Blood Cell Count 2.98 X10^6/uL (4.0-5.2); Red Cell Distribution Width 14.2 % (11.6-14.8); White Blood Cell Count 4.9 X10^3/uL (4.5-11.0)
[2019-10-21 05:14] LABS: Troponin I 0.219 ng/mL (0.01-0.034)
[2019-10-21 08:01] LABS: BUN Creatinine Ratio 16.7 (6-22); Blood Urea Nitrogen 15 mg/dL (7-17); Carbon Dioxide 28 mmol/L (22-32); Chloride 106 mmol/L (98-107); Estimated Glomerular Filt Rate > 60.0 mL/min (>60); Glucose 149 mg/dL (80-110); HEMOLYSIS < 15 (0-50); Sodium 136 mmol/L (137-145)
[2019-10-21] MEDS: HYDROMORPHONE 0.5 MG INJ IV (08:27)
[2019-10-21] MEDS: hydrOXYzine pamoate 25 MG CAPSULE PO ×4 (08:28→22:07)
[2019-10-21] MEDS: ACETAMINOPHEN 325 MG TABLET 650 MG PO (08:29)
[2019-10-21] MEDS: ASPIRIN EC 325 MG TABLET PO (08:30)
[2019-10-21] MEDS: MULTIVITAMIN 1 TABLET 1 TAB PO (08:30)
[2019-10-21] MEDS: LEVOTHYROXINE 75 MCG TABLET PO (08:30)
[2019-10-21] MEDS: PANTOPRAZOLE 20 MG TABLET PO (08:30)
[2019-10-21] MEDS: LOSARTAN 50 MG TABLET 100 MG PO (08:31)
[2019-10-21] MEDS: OXYBUTYNIN 5 MG TABLET PO ×2 (08:32→20:06)
[2019-10-21] MEDS: CHOLECALCIFEROL (VITAMIN D3) 1,000 UNIT TABLET 1000 UNIT PO (08:32)
[2019-10-21] MEDS: DOCUSATE 100 MG CAPSULE PO ×2 (08:32→20:04)
[2019-10-21] MEDS: INSULIN ASPART 100 UNIT/ML INSULN PEN SUBCUT ×3 (08:34→21:01)
--- NOTE | 2019-10-21 10:10 | CM.DPC ---
Addendum entered by HUDSON Mac 10/21/19 11:51: ADD: Per PT/OT this morning, pt made good progress in her gait and bed mobility and able to ambulate with CGA and walker and continues to have some pain issues but recommending safe d/c home with family assist when stable. Pt had supportive spouse and son bedside and participated in some CG training. Plan: SW to follow for likely pt d/c home with supportive family assist when medically stable and pain controlled on p.o. HUDSON Mac Original Note: DCP Cont: Per RN, pt remains stable today with heart rate and previous cardiac concerns and appropriate for further PT assess today after pain medication given this morning for better pain management prior to PT. Pt plan is still hopeful for home at d/c. Plan: SW to follow after further PT this morning to determine if pt will remain safe for d/c home when stable. HUDSON Mac
--- NOTE | 2019-10-21 10:40 | OT.IP.TRT ---
Current Diagnoses Acute posthemorrhagic anemia (10/18/19) Supraventricular tachycardia (10/18/19) Other secondary scoliosis, lumbar region (10/18/19) Other spondylosis with radiculopathy, thoracic region (10/18/19) Spinal stenosis, lumbar region without neurogenic claudication (10/18/19) Arthrodesis status (10/18/19) Surgery Performed Operation Date: 10/18/19 07:45 Actual Procedures p L4-5 Hardware removal , L2-3, L3-4 Translaminar lumbar interbody fusion, L1-2 right hemilaminectomy, L2-5 PSF w/ instrumentation - Ricky Haegr MD Occupational Therapy Treatment Note M2 OT-IP Current Condition Start: 10/19/19 12:34 Freq: Status: Active Protocol: Document 10/19/19 12:35 CGR (Rec: 10/19/19 12:54 CGR [email or web address]) Occupational Therapy Current Condition Current Condition Evaluation Date 10/19/19 Treatment Diagnosis L2-5 TLIF Diagnosis Onset Date 10/18/19 Post Operative Precautions Lumbar Precautions Log Roll,No Twisting,Limit Bending,Lifting Restriction of 10 lbs,Gait Belt above Incisional Area M3 OT- IP Subjective and Pain Start: 10/19/19 12:34 Freq: Status: Active Protocol: Document 10/21/19 10:48 CCC (Rec: 10/21/19 11:02 CCC [email or web address]) OT- Subjective Occupational Therapy Visit Type Type Treatment Note Visit Start Time 10:22 Visit Stop Time 10:40 Total Visit Minutes 18 Occupational Therapy Visit Comments Patient Comments Pt's and son in the room and pt open to getting up . Nursing just completed bed bath with pt. Nursing states okay to get pt up and moving, troponin levels trending down. Pt to have cardiac consult today. Patient/Caregiver Goals To go home. OT Pain Assessment Pain When Pain Assessed At Rest Pain Present Pain Present Pain Reported Location Back Intensity 8 Scale Used Numeric (1 - 10) M4 OT- IP ADL's Start: 10/19/19 12:34 Freq: Status: Active Protocol: Document 10/21/19 10:48 CCC (Rec: 10/21/19 11:02 [facility] [email or web address]) OT VIE-Zyay-[place] Comments OT Self-Feeding Comments Not meal time. OT ADL-Grooming Comments OT Grooming Comments Pt states already completed. OT ADL-Dressing Comments OT Dressing Comments Declined to practice, suggested to attach metal cnc operator to FWW so able to use for all needs for ADl's. OT ADL-Toileting Comments OT Toileting Comments Pt not having to go, has howard in. M5 OT- IP IADL's Start: 10/19/19 12:34 Freq: Status: Active Protocol: Document 10/19/19 12:35 CGR (Rec: 10/19/19 12:54 CGR [email or web address]) OT-Instrumental Activities of Daily Living Deficits IADL Deficits Identified No Deficits Home Safety Awareness Awareness of Need for Assistance at Home Good Awareness Ability to Problem Solve Emergency Able to Problem Solve Situations Medication Management Medication Management No Deficits Identified Money Management Money Management No Deficits Identified Meal Preparation Meal Preparation Caregiver Provides Assist Agent Spa Desk Agent Spa Desk Caregiver Provides Assist Driving Driving Caregiver Provides Assist M6 OT- IP Functional Cognition Start: 10/19/19 12:34 Freq: Status: Active Protocol: Document 10/21/19 10:48 [facility] (Rec: 10/21/19 11:02 [facility] [email or web address]) Cognitive Factors Limiting Selfcare Function Cognitive Comments Cognitive Assessment Comments Pt able to state all back precautions and able to follow commands. M7 OT- IP Mobility and Balance Start: 10/19/19 12:34 Freq: Status: Active Protocol: Document 10/21/19 10:48 [facility] (Rec: 10/21/19 11:02 [facility] [email or web address]) OT- Bed Mobility Assessment Rolling Type of Rolling Roll to Left Level of Assistance Standby Assistance,Bedrails Supine to Sit Supine to Sit Assist Standby Assistance,Bedrails Sit to Supine Sit to Supine Assist Minimal Assistance Scooting Scooting to Edge of Bed Standby Assistance OT-Transfer Assessment Sit to and From Stand Sit to and from Stand Standby Assistance Transfers Transfer Ability Standby Assistance,Contact Guard Assistance,1 Person Assistance Technique Transfer Destination Bed,Chair Transfer Technique Stand Step Pivot Devices Transfer Assistive Devices Gait Belt,Front Wheeled Walker Comments Mobility Comments Pt insistent on having a bed rail, suggested able to have hold FWW next to the bed or buy a bed rail. Pt states would rather get a bed rail for the bed. Pt just needing AMRITA to help get her legs back into the bed. OT- Gait Assessment Gait Gait Assistance Required: Contact Guard Assist Assistive Devices Assistive Device Gait Belt,Front Wheeled Walker Comments Gait Ability Comments Pt a little unsteady on her feet and needing CGA for balance with FWW while walking to the recliner and back to the bed. Pt's looking into borrowing a wheelchair to help get pt from the dock as currently would be too far for pt to walk. OT- Balance Assessment Sitting Balance and Reactions Static Sitting Balance Ability Good Standing Balance and Reactions Static Standing Balance Ability Fair M8 OT- IP Objective Assessments Start: 10/19/19 12:34 Freq: Status: Active Protocol: Document 10/19/19 12:35 CGR (Rec: 10/19/19 12:54 CGR [email or web address]) OT Gross Range of Motion Upper Extremity Range of Motion Assessment Within Functional Limits OT Strength Upper Extremity Strength Assessment Within Functional Limits Hand Cotton Agent Strength Hand Dominance Right OT- Coordination Assessment Upper Extremity Finger to Nose Test Within Functional Limits Finger Tapping Test Within Functional Limits OT-Muscle Tone Assessment Muscle Tone WNL Yes OT Sensation Assessment Edema Edema Present Edema Comments R hand swollen from IV. M9 OT- IP Assessment and Plan Start: 10/19/19 12:34 Freq: Status: Active Protocol: Document 10/21/19 10:48 CCC (Rec: 10/21/19 11:02 CCC [email or web address]) OT Summary Assessment and Plan Potential Rehabilitation Potential Good Analytic Complexity at Evaluation Low Summary OT Impairments Pain,Balance,Functional Mobility,Grooming,Dressing, Toileting,Bathing,Toilet Transfers,Shower Transfers Progress Towards Goals Progressing Toward Goals Assessment Summary Pt having postoperative supraventricular tachycardia and moved to ICU and to have a cardiac consult. Per OT needs pt has good understanding of back precautions and pt's able to assist at home. Pending medical status when cleared suggest pt to go home with pt's to assist. Goals Grooming Goal Independent Dressing Goal Independent Toileting Goal Independent Bathing Goal Standby Assistance Toilet Transfer Goal Independent Shower Transfer Goal Independent Days to Meet Goals 2 Frequency of Treatment Frequency Of Treatment Once a Day Treatment Plan OT Treatment Plan ADL Training,Functional Mobility,Patient/Family Education,Discharge Planning Other Treatment Recommendations and Next Shower and LB dressing. Treatment Focus Discharge Recommendations OT Discharge Recommendations Home with Assistance Home Equipment Needs Pt provided with hip kit minus sock aid as pt states her son has one that she can use.
--- NOTE | 2019-10-21 11:23 | PC.NURSE ---
Addendum entered by Shirlene Munson R.N. 10/21/19 15:04: V-Q SCAN COMPLETED , ECHO COMPLETED. BERTRAND REMOVED AND BISACODYL SUPPOSITORY ADMINISTERED Original Note: PT ALERT/ORIENTED X 3 ABLE TO EXPRESS HER NEEDS AND RATES BACK INCISIONAL PAIN 07/09- TOO SOON TO MEDICATE WITH PO DILAUDID ( ORDERED Q 3H PRN)- MEDICATED WITH 0.5MG IV DILAUDID FOR GOOD EFFECTS ALLOWING HER TO RELAX AND EAT SOME BREAKFAST- ALSO MEDICATED WITH ACETAMINOPHEN AND VISTARIL TO ASSIST WITH PAIN CONTROL- SHE DID GET UP WITH BOTH OT/PT AND AMBULATED APPROX 60 FEET- PLACED ON PORTABLE TELE AND HAS MAINTAINED SR EXCEPT WITH ACTIVITY IN WHICH HEART RATE INCREASED TO 130- SPONTANEOUSLY RESOLVED QUICKLY WITH REST- DRESSING TO MID-LOWER BACK CDI
--- NOTE | 2019-10-21 11:36 | PT.IPTN ---
Current Diagnoses Acute posthemorrhagic anemia (10/18/19) Supraventricular tachycardia (10/18/19) Other secondary scoliosis, lumbar region (10/18/19) Other spondylosis with radiculopathy, thoracic region (10/18/19) Spinal stenosis, lumbar region without neurogenic claudication (10/18/19) Arthrodesis status (10/18/19) Surgery Performed Operation Date: 10/18/19 07:45 Actual Procedures p L4-5 Hardware removal , L2-3, L3-4 Translaminar lumbar interbody fusion, L1-2 right hemilaminectomy, L2-5 PSF w/ instrumentation - Ricky Hager MD Physical Therapy Treatment Note M2 PT-IP Current Condition Start: 10/19/19 10:18 Freq: NEEDED Status: Active Protocol: Document 10/19/19 09:25 AB (Rec: 10/19/19 10:29 AB [id number]) Physical Therapy Current Condition Current Condition Evaluation Date 10/19/19 Treatment Diagnosis s/p L2-5 fusion; difficulty in walking Onset Date 10/18/19 Precautions Lumbar Precautions Log Roll,No Twisting,Limit Bending,Lifting Restriction of 10 lbs,Gait Belt above Incisional Area M3 PT-IP Subjective Start: 10/19/19 10:18 Freq: NEEDED Status: Active Protocol: Document 10/21/19 11:18 AW (Rec: 10/21/19 11:36 AW [id number]) Subjective Physical Therapy Visit Type Type Treatment Note Visit Start Time 10:44 Visit Stop Time 11:03 Total Visit Minutes 19 Number of INHALATION THERAPIST Visits 0 Physical Therapy Visit Comments Patient Comments Pt just finished with OT and returned to bed but amenable to working with PT Therapy Pain Assessment Pain When Pain Assessed During Mobility Pain Present Pain Present Pain Reported Location Back Intensity 9 Scale Used 7/10 at rest; 9/10 with mobility Pain Behaviors Guarding,Wincing Pain Management Techniques Re-positioning,Timing of Activity with Medications M4 PT-IP Mobility and Gait Start: 10/19/19 10:18 Freq: NEEDED Status: Active Protocol: Document 10/21/19 11:18 AW (Rec: 10/21/19 11:36 AW [id number]) PT-Bed Mobility Assessment Rolling Type of Rolling Roll to Left Level of Assist Standby Assistance Supine to Sit Supine to Sit Standby Assistance,Bedrails PT-Transfer Assessment Sit to and From Stand Sit to and from Stand Contact Guard Assistance,1 Person Assistance,Use of Upper Extremities Equipment Transfer Assistive Device Gait Belt,Front Wheeled Walker Orthotic/Prosthetic Devices or Brace: No Transfers Transfer Destination Chair Transfer Technique pt ambulated with FWW Transfer Ability Level of Assist Contact Guard Assistance Comments Mobility Comments Pt was initially reclined in bed and requested return to bed after treatment. She completed supine to sit using log roll technique SBA with bed adjusted for pt comfort since she has an adjustable bed at home. Sit to stand completed with FWW CGA and pt complaining of increased pain. After gait training, pt transferred to bedside chair CGA and cues for use of BUE to avoid twisting. Gait Assessment Gait Gait Assistance Required: Contact Guard Assist Distance (Feet) 60 Able to Maintain Weight Bearing Status Yes During Gait Assistive Devices Assistive Device Gait Belt,Front Wheeled Walker Orthotic/Prosthetic Devices or Brace: No Gait Deviations General Gait Pattern Antalgic,Decreased Stride Length,Decreased Feet Clearance Factors Limiting Gait Function Factors Limiting Gait Function Decreased Activity Tolerance, Decreased Strength,Limited Range of Motion,Pain,Poor Balance Comments Gait Comments Pt ambulated using FWW CGA. She set a distance goal and achieved it, increasing her distance significantly. Upon return to her room, however, she was tearful due to increased pain. She was positioned in the chair in order to ease her next transition to wheelchair for further testing, call light within reach, spouse and son at bedside. M5 PT-IP Objective Assessments Start: 10/19/19 10:18 Freq: NEEDED Status: Active Protocol: Document 10/19/19 09:25 AB (Rec: 10/19/19 10:29 AB [id number]) Orientation Orientation/Cognition Level of Alertness Alert Orientation Name,Age,Birthday,Month,Date, Year,Day of Week,Place, Situation Language Function Ability No Deficits Noted Safety Awareness Understands Safety Issues Memory Description No Deficits Noted Gross Range of Motion Lower Extremity ROM Assessment Within Functional Limits Strength Lower Extremity Strength Hip 4-/5 Knee 4-/5 Coordination Assessment Gross Coordination Gross Coordination WNL Sensation Assessment Sensation Gross Sensation WNL Muscle Tone Muscle Tone WNL Yes M6 PT-IP Treatment Start: 10/19/19 10:18 Freq: NEEDED Status: Active Protocol: Document 10/21/19 11:18 AW (Rec: 10/21/19 11:36 AW [id number]) Physical Therapy Treatment Education Education Provided Precautions,Safety M7 PT-IP Assessment and Plan Start: 10/19/19 10:18 Freq: NEEDED Status: Active Protocol: Document 10/21/19 11:18 AW (Rec: 10/21/19 11:36 AW [id number]) PT Summary Assessment and Plan Potential Rehabilitation Potential Good Status of Condition at Evaluation Evolving Summary Impairments Pain,ROM,Strength,Balance, Coordination,Sensation,Bed Mobility,Transfers,Gait, Activity Tolerance Progress Towards Goals Slow Progress due to Pain,Slow Progress due to Activity Tolerance Assessment Summary Pt continues to progress slowly, but was able to double her gait distance at this session, demonstrating improved activity tolerance especially in the context of working with OT and PT back to back. Goals Bed Mobility Goal Standby Assistance Transfer Goal Standby Assistance,Front Wheeled Walker Gait Goal Standby Assistance,Front Wheel Walker Gait Distance 150 Other Goals up/down 15 steps with bilateral rails SBA Days to Meet Goals 5 Frequency of Treatment Frequency Of Treatment Twice a Day Treatment Plan Physical Therapy Treatment Plan Bed Mobility Training,Transfer Training,Gait Training, Therapeutic Exercise,Balance Retraining,Post Op Education, Discharge Planning,Hot or Cold Pack,Neuromuscular Re-ed, Coordination Retraining,Manual Therapy Other Recommendations and Next Treatment stairs Focus Recommendations To Nursing Amount of Assist Needed 1 Person Assist Discharge Recommendations PT Discharge Recommendations Home with Assistance
--- NOTE | 2019-10-21 13:14 | PM.PN.1 ---
Subjective Subjective Date Patient Seen: 10/21/19 Time Patient Seen: 13:15 Interval history: 74 year old [place] female with a hx of chronic back pain, 3 days status post T-LIFF, hypertension, hyperlipidemia, hypothyroidism, Type II diabetes mellitus, stage 2 chronic kidney disease, neuropathy, rheumatoid arthritis and morbid obesity. On post op day 2 during routine vital sign check, she was noted to be in SVT with a heart rate of 161 bpm in the setting of hypoxia. During the episode of SVT she denied any chest discomfort, dyspnea or palpitations. She denies any previous cardiac history of NE, rheumatic fever, heart murmur, CHF or palpitations. She reports being on EMILY inhibitors and statin therapy due to her cardiovascular risk factors. She was given a total of adenosine 12 mg IV which converted her to sinus rhythm. She was transferred to ICU and placed on a cardizem drip. Her cardizem drip was discontinued on yesterday and she was started on metoprolol tartarte 50 mg q6 hours. Exam Vital Signs (past 8 hours): - 10/21/19 06:00 10/21/19 07:41 10/21/19 08:31 Temperature Pulse Rate 67 73 77 Respiratory Rate 13 16 Blood Pressure 116/63 133/61 133/61 Pulse Oximetry 98 99 10/21/19 09:07 10/21/19 12:56 Temperature 97.8 F 97.8 F Pulse Rate 79 84 Respiratory Rate 15 19 Blood Pressure 156/77 H Pulse Oximetry 97 Oxygen Delivery Method Room Air Oxygen Flow Rate 0 Narrative Exam Narrative: 74 year old obese female Const General: cooperative and healthy appearing Nutritional Appearance: obese Orientation: alert, awake and oriented x3 [facility] Head: normocephalic and atraumatic Mouth: moist mucous membranes Eyes General: appearance normal, both eyes and all related structures Neck Neck: normal visual inspection Carotids: normal carotid upstroke Resp Effort & Inspection: normal respiratory effort Auscultation: clear to auscultation bilaterally Cardio Palpation: normal PMI Rate: regular rate Rhythm: regular rhythm Heart Sounds: S1 normal and S2 normal Pulses: normal peripheral pulses GI Palpation: no hepatosplenomegaly Auscultation: normal bowel sounds Skin General: no rashes or lesions noted Neuro General: alert, awake and oriented x3 Cognition: normal cognition Extrem General: no pedal edema Psych Attitude: cooperative Thought Process: normal Thought Content: normal Objective Labs Result Diagrams: 10/21/19 04:35 10/21/19 07:28 Labs: Laboratory Results - last 24 hr 10/20/19 10/20/19 10/20/19 14:31 14:31 14:31 WBC RBC Hgb Hct MCV MCH MCHC RDW Plt Count Neut % (Auto) Lymph % (Auto) [place] % (Auto) Eos % (Auto) Baso % (Auto) Neut # (Auto) Lymph # (Auto) [place] # (Auto) Eos # (Auto) Baso # (Auto) D-Dimer 663 H Sodium Potassium Chloride Carbon Dioxide BUN Creatinine Estimated GFR BUN/Creatinine Ratio Glucose Calcium Troponin I 0.336 H* B-Natriuretic Peptide 150 H Nasal Screen MRSA (PCR) 10/20/19 10/20/19 10/21/19 14:50 22:00 04:35 WBC 4.9 RBC 2.98 L Hgb 9.6 L Hct 28.6 L MCV 96.0 MCH 32.3 MCHC 33.6 RDW 14.2 Plt Count 188 Neut % (Auto) 69.7 Lymph % (Auto) 13.9 L [place] % (Auto) 11.3 Eos % (Auto) 4.8 H Baso % (Auto) 0.3 Neut # (Auto) 3500 Lymph # (Auto) 700 L [place] # (Auto) 600 Eos # (Auto) 200 Baso # (Auto) 0 D-Dimer Sodium Potassium Chloride Carbon Dioxide BUN Creatinine Estimated GFR BUN/Creatinine Ratio Glucose Calcium Troponin I 0.321 H* B-Natriuretic Peptide Nasal Screen MRSA (PCR) Negative for mrsa 10/21/19 10/21/19 04:35 07:28 WBC RBC Hgb Hct MCV MCH MCHC RDW Plt Count Neut % (Auto) Lymph % (Auto) [place] % (Auto) Eos % (Auto) Baso % (Auto) Neut # (Auto) Lymph # (Auto) [place] # (Auto) Eos # (Auto) Baso # (Auto) D-Dimer Sodium 136 L Potassium 4.0 Chloride 106 Carbon Dioxide 28 BUN 15 Creatinine 0.90 Estimated GFR > 60.0 BUN/Creatinine Ratio 16.7 Glucose 149 H Calcium 8.0 L Troponin I 0.219 H* B-Natriuretic Peptide Nasal Screen MRSA (PCR) Echocardiogram 10/21/2019: Left ventricular systolic function is normal without focal wall motion abnormalities with the ejection fraction visually estimated to be 60-65%. There is borderline concentric left ventricular hypertrophy but diastolic parameters suggest probable normal left ventricular diastolic function and normal filling pressures. The right ventricle is normal in size and function. Pulmonary artery pressures cannot be estimated because of the lack of a measurable TR jet velocity but the IVC suggests a CVP of around 8 mmHg. Both atria are normal in size. There is no significant valvular heart disease. Chest xray 10/20/2019: No acute cardiopulmonary findings. Vascular ultrasound 10/20/2019: No deep vein thrombosis of the bilateral lower extremities. VQ scan pending Assessment & Plan Assessment & Plan narrative: 1. Supraventricular tachycardia 2. Elevated troponin 3. Hypertension 4. Type II diabetes mellitus 5. Chronic back pain Status post T-LIFF On post op day 2 she developed a narrow complex regular tachycardia at 161 bpm in the setting of intense pain, hypoxiaand increased tempt.. The narrow complex tachycardia responded to IV adenosine and cardizem. She is now in sinus rhythm on beta blockers with no evidence of preexicatation and her QTC is not prolonged. No previous history of sig. arrhythmias or heart problems. Her D-dimer was 663. lower extremity doppler negative for DVT. VQ scan pending. BNP was 150. On admission, Hgb 12.4 and hemacrit 37.4. Her tropnoins were 0.082, 0.336, 0.321 and 0.219 likely due to demand ischemia. On echo, preserved lv function without any sig. wall motion abnormalities.Her CK was elevated but her CPK index was within normal limits which indicates a musculoskeletal cause of her elevated CK. We will check a magnesium level and TSH. We recommend changing her to metoprolol succinate 50 mg BID. Given her cardiovascular risk factors (HTN, DM, obesity, hyperlpidemia) we would recommend a Lexiscan nuclear stress test. Her stress test can be done in the outpatient setting after she has recovered from her back surgery. Cardiology will sign off. She may follow up with our office after her stress test has been completed. We would like to thank the Hospitalist service for the opportunity to particiapate in this patient's care. Pt. was seen and examined with our GLUE SIZE MACHINE OPERATOR Lizbeth Garcia. Jarod VTE Deep Vein Thrombosis/Pulmonary Embolism Present on Admission: No
[2019-10-21] MEDS: BISACODYL 10 MG SUPP PR (14:49)
[2019-10-21 15:11] LABS: Magnesium 1.9 mg/dL (1.6-2.3)
--- NOTE | 2019-10-21 16:48 | P.PN_ITS ---
Subjective Subjective Date Patient Seen: 10/21/19 Interval history: Patient has had no further episodes of SVT since evening 10/20/2019. Appreciate cardiology consult by Dr. Cortez. Exam Vital Signs (past 8 hours): - 10/21/19 09:07 10/21/19 12:56 10/21/19 14:17 Temperature 97.8 F 97.8 F 97.8 F Pulse Rate 79 84 Respiratory Rate 15 19 Blood Pressure 156/77 H Pulse Oximetry 97 10/21/19 15:57 Temperature 98.1 F Pulse Rate 81 Respiratory Rate 19 Blood Pressure 163/66 H Pulse Oximetry 94 Oxygen Delivery Method Room Air Oxygen Flow Rate 0 Narrative Exam Narrative: General: Alert, pleasant and in no acute distress Lungs: Clear to auscultation Heart: Regular rhythm Extremities: No edema Objective Labs Result Diagrams: 10/21/19 04:35 10/21/19 07:28 Labs: Laboratory Results - last 24 hr 10/20/19 10/21/19 10/21/19 22:00 04:35 04:35 WBC 4.9 RBC 2.98 L Hgb 9.6 L Hct 28.6 L MCV 96.0 MCH 32.3 MCHC 33.6 RDW 14.2 Plt Count 188 Neut % (Auto) 69.7 Lymph % (Auto) 13.9 L [place] % (Auto) 11.3 Eos % (Auto) 4.8 H Baso % (Auto) 0.3 Neut # (Auto) 3500 Lymph # (Auto) 700 L [place] # (Auto) 600 Eos # (Auto) 200 Baso # (Auto) 0 Sodium Potassium Chloride Carbon Dioxide BUN Creatinine Estimated GFR BUN/Creatinine Ratio Glucose Calcium Magnesium Troponin I 0.321 H* 0.219 H* 10/21/19 10/21/19 07:28 14:32 WBC RBC Hgb Hct MCV MCH MCHC RDW Plt Count Neut % (Auto) Lymph % (Auto) [place] % (Auto) Eos % (Auto) Baso % (Auto) Neut # (Auto) Lymph # (Auto) [place] # (Auto) Eos # (Auto) Baso # (Auto) Sodium 136 L Potassium 4.0 Chloride 106 Carbon Dioxide 28 BUN 15 Creatinine 0.90 Estimated GFR > 60.0 BUN/Creatinine Ratio 16.7 Glucose 149 H Calcium 8.0 L Magnesium 1.9 Troponin I Assessment & Plan Assessment & Plan narrative: 1. Paroxysmal SVT, occurring postop day 2 -patient without recurrence of SVT and has been asymptomatic when in SVT -echo with normal LVEF and no focal wall motion abnormality, no valvular disease -per cardiology recommendation, continue metoprolol succinate 50 mg twice daily -outpatient cardiology follow-up, consideration of outpatient pharmacological stress test once patient has recovered from her back surgery -magnesium and TSH assay levels pending 2. Type 2 myocardial infarction -demand related ischemia from SVT -outpatient stress test to rule out coronary occlusive disease 3. Type 2 diabetes -glucose controlled on oral medications 4. Chronic back pain, status post T-LIFF Patient is stable from medical standpoint to discharge home when cleared by surgery. I have entered order for metoprolol succinate 50 mg b.i.d. in discharge routine. Quality VTE Deep Vein Thrombosis/Pulmonary Embolism Present on Admission: No
--- NOTE | 2019-10-21 17:13 | PT-IP ANOTE ---
Attempted to see pt at 1600. She reported being too tired from imaging earlier and refused treatment in spite of continued PT education regarding benefits of mobility/risks of immobility. Will see pt morning of 10/22.
[2019-10-21 17:42] LABS: Magnesium 1.8 mg/dL (1.6-2.3)
[2019-10-21 19:03] LABS: TSH w/ Reflex to FT4 2.08 uIU/mL (0.47-4.68)
[2019-10-21] MEDS: METOPROLOL ER 50 MG TABLET PO (20:03)
[2019-10-21] MEDS: GABAPENTIN 300 MG CAPSULE PO (20:04)
[2019-10-21] MEDS: CIPROFLOXACIN 500 MG TABLET PO (20:05)
[2019-10-21] MEDS: ATORVASTATIN 10 MG TABLET PO (20:05)
[2019-10-21 20:08] LABS: Thyroid Stimulating Hormone 1.99 uIU/mL (0.47-4.68)
[2019-10-21] MEDS: INSULIN GLARGINE 100 UNIT/ML 3ML PEN 15 UNIT SUBCUT (21:00)
--- NOTE | 2019-10-21 21:16 | PC.NURSE ---
2100 - Following ambulation to the bathroom. Pt is resting in bed. Hr increased to the 140's, sustaining for approximately 6 minutes, BP 126/105 during tachycardia. Pt asymptomatic. HR returned to the 80's without intervention. Hospitalist notified. Reviewed vital signs and medications, including that Metoprolol XL 50mg given at 2014. See graphics.
[2019-10-22] MEDS: HYDROMORPHONE 2 MG TABLET 4 MG PO ×4 (01:55→10:57)
[2019-10-22 05:00] VITALS: BP 165/76; PULSE 82; RESP 20; TEMP 37.4; O2SAT 94
[2019-10-22] MEDS: hydrOXYzine pamoate 25 MG CAPSULE PO (05:02)
[2019-10-22] MEDS: LEVOTHYROXINE 75 MCG TABLET PO (05:47)
--- NOTE | 2019-10-22 07:49 | P.DS_ITS ---
History of Present Illness History of Present Illness Date Patient Seen: 10/22/19 Time Patient Seen: 07:49 Chief complaint: [id number] Narrative: Patient has been having chronic back pain and worsening lumbar radiculopathy. Patient had previous lumbar fusion with worsening back pain and right-sided radiculopathy since surgery. Patient failed multiple conservative management with worsening pain weakness and numbness in her lower extremity. Patient has been having difficulty performing activity of daily living. After discussing risks benefits of treatment options, patient elected proceed with surgery. Discharge Providers Provider Date of admission: 10/18/19 06:07 Discharge Date: 10/22/19 Primary care physician: Jaspal Rico DO Consults: 10/18/19 14:51 Consult to Occupational Therapy Evaluate & Treat Comment: Physician Instructions: Evaluate and treat Consult to Physical Therapy Evaluate & Treat Comment: Physician Instructions: Evaluate and Treat 10/18/19 15:20 Consult to Pastoral Services Routine Comment: per patient request 10/20/19 08:05 Consult to Respiratory Therapy Evaluate & Treat Comment: Physician Instructions: Evaluate and treat 10/20/19 08:53 Consult to Hospitalist Service Routine Comment: Consulting Provider: Dinorah Treviño Reason for consultation: tachycardia Has provider been notified: Yes 10/20/19 19:01 Consult to Cardiology Routine Comment: Consulting Provider: Martha Cortez Reason for consultation: SVT Has provider been notified: No Discharge provider: Ghazal Molina PA-C Summary Hospital Course Discharge Diagnosis: Type 2 myocardial infarction Type 2 diabetes Chronic back pain Paroxysmal SVT Rheumatoid arthritis Obesity Hypothyroidism Hypertension Colon cancer Hospital Course: Shirin was admitted for a lumbar fusion with Dr. Hager. Hospital course was remarkable for an episode of SVT with a heart rate of 161 bpm in the setting of hypoxia. On post op day 2 during routine vital sign check, she was noted to be in SVT and type 2 myocardial infarction. During the episode of SVT she denied any chest discomfort, dyspnea or palpitations. She was given a total of adenosine 12 mg IV which converted her to sinus rhythm. She was transferred to ICU and placed on a cardizem drip. Her cardizem drip was discontinued on yes terday and she was started on metoprolol tartarte 50 mg q6 hours. She has a hx of chronic back pain, hypertension, hyperlipidemia, hypothyroidism, Type II diabetes mellitus, stage 2 chronic kidney disease, neuropathy, rheumatoid arthritis and morbid obesity. She did have difficulty controlling pain requiring Dilaudid 4 mg every 3 hours, vistaril, and Tylenol. She worked with physical therapy throughout her stay. [place] catheter was removed and she is voiding without difficulty or assistance. Aspirin increased to 325 mg daily for DVT prophylaxis. Status at Discharge Functional status at discharge: uses cane/walker Exam Vital Signs (past 8 hours): - 10/21/19 23:55 10/22/19 05:00 Temperature 98.5 F 99.4 F Pulse Rate 84 82 Respiratory Rate 20 20 Blood Pressure 160/79 H 165/76 H Pulse Oximetry 94 94 Oxygen Delivery Method Room Air Oxygen Flow Rate 0 Narrative Exam Narrative: Patient lying in bed in no acute distress. She is alert orient x3. Calves are soft, compressible, nontender bilaterally. Bilateral pulses are symmetrical. She is able to actively dorsiflex and plantar flex. Pain well controlled with Dilaudid 4 mg every 3 hours. No complaints of shortness of breath or chest pain this morning. Cover site dressing applied prior to di scharge. Objective Labs Result Diagrams: 10/21/19 04:35 10/21/19 07:28 Labs: Laboratory Results - last 24 hr 10/21/19 10/21/19 10/21/19 07:28 14:32 17:18 Sodium 136 L Potassium 4.0 Chloride 106 Carbon Dioxide 28 BUN 15 Creatinine 0.90 Estimated GFR > 60.0 BUN/Creatinine Ratio 16.7 Glucose 149 H Calcium 8.0 L Magnesium 1.9 1.8 TSH 10/21/19 10/21/19 17:18 17:18 Sodium Potassium Chloride Carbon Dioxide BUN Creatinine Estimated GFR BUN/Creatinine Ratio Glucose Calcium Magnesium TSH 1.99 2.08 Discharge Plan Discharge Plan Patient Disposition: Home Discharge orders & Medications Prescriptions: New acetaminophen 325 mg Tablet 650 mg PO Q6HR PRN (Reason: Pain, Mild (1-3)) Qty: 30 RF: 0 hydromorphone 2 mg Tablet 2 mg PO Q3H PRN (Reason: Pain, Moderate (4-6)) Qty: 70 RF: 0 docusate sodium [DOK] 100 mg Capsule 100 mg PO BID Qty: 30 RF: 0 hydroxyzine pamoate 25 mg Capsule 25 mg PO Q4HR PRN (Reason: Nausea or Muscle spasms) Qty: 30 RF: 0 metoprolol succinate 50 mg tablet extended release 24 hr 50 mg PO BID Qty: 60 RF: 0 aspirin 325 mg Tablet,Delayed Release (Dr/Ec) 325 mg PO DAILY Qty: 30 RF: 0 Continued cranberry 1 cap PO BID Qty: 0 RF: 0 multivitamin Tablet 1 tab PO DAILY Qty: 0 RF: 0 Probiotic 1 cap PO DAILY Qty: 0 RF: 0 Imodium A-D 2 dose PO BID PRN (Reason: Diarrhea) Qty: 0 RF: 0 cholecalciferol (vitamin D3) [Vitamin D3] 2,000 unit Capsule 1,000 units PO DAILY Qty: 0 RF: 0 sulfasalazine 500 MG tablet 1,500 mg PO BID Qty: 0 RF: 0 leflunomide 20 MG tablet 20 mg PO QDAY Qty: 0 RF: 0 (DME) glucose test strips Qty: 100 RF: 3 oxybutynin chloride 5 mg tablet 5 mg PO BID Qty: 180 RF: 1 metformin [Glucophage XR] 500 mg tablet extended release 24 hr 500 mg PO BID Qty: 60 RF: 5 gabapentin 300 mg capsule 300 mg PO BEDTIME Qty: 90 RF: 1 levothyroxine [Synthroid] 75 mcg tablet 75 mcg PO DAILY Qty: 90 RF: 1 atorvastatin [Lipitor] 10 mg tablet 10 mg PO BEDTIME Qty: 90 RF: 1 fenofibrate 160 mg tablet 160 mg PO DAILY Qty: 90 RF: 1 losartan 100 mg tablet 100 mg PO DAILY Qty: 90 RF: 0 glipizide 10 mg tablet 5 mg PO BID Qty: 90 RF: 1 hydrocodone-acetaminophen 5-325 mg tablet 1 tab PO Q4-6H PRN (Reason: pain) Qty: 60 RF: 0 ciprofloxacin HCl [Cipro] 500 mg tablet 500 mg PO BEDTIME Qty: 90 RF: 0 (DME) blood-glucose meter Kit See Rx Instructions .ROUTE .MEDSUPPLY Qty: 1 RF: 0 trazodone 50 mg tablet 50 mg PO BEDTIME PRN (Reason: insomnia) Qty: 30 RF: 5 Xeljanz XR 11 mg tablet extended release 24 hr 11 mg PO DAILY RF: 0 omeprazole 20 mg capsule,delayed release(DR/EC) 20 mg PO DAILY Qty: 30 RF: 1 acetaminophen [Tylenol Arthritis Pain] 650 mg Tablet Extended Release 1,300 mg PO Q12H PRN (Reason: Pain) RF: 0 cyclobenzaprine 10 mg tablet 10 mg PO BID RF: 0 albuterol sulfate [ProAir HFA] 90 mcg/actuation HFA aerosol inhaler 2 puff INHALATION QID PRN (Reason: Shortness Of Breath) RF: 0 *B-D 3ML SYRINGE 1 SYR 1 ea miscellaneous SEE INSTRUCTIONS RF: 0 nystatin 30 GM cream 1 raymond Topical DAILY RF: 0 Discontinued aspirin 81 MG tablet,delayed release (DR/EC) 81 mg PO DAILY Qty: 0 RF: 0 Follow up/Referrals: Ricky Hager MD [Physician] - Martha Cortez MD [Physician] - Jaspal Rico DO [Primary Care Provider] - Skin/Wound/Dressing Care Report to your healthcare provider any signs of infection, such as:: chills, fever and increased pain Discharge Data Primary Care Provider: Jaspal Rico VTE Deep Vein Thrombosis/Pulmonary Embolism Present on Admission: No
[2019-10-22 08:00] VITALS: BP 157/72; PULSE 85; RESP 18; TEMP 36.8; O2SAT 95
[2019-10-22] MEDS: INSULIN ASPART 100 UNIT/ML INSULN PEN SUBCUT ×2 (08:14→11:43)
[2019-10-22] MEDS: ASPIRIN EC 325 MG TABLET PO (08:15)
[2019-10-22] MEDS: CHOLECALCIFEROL (VITAMIN D3) 1,000 UNIT TABLET 1000 UNIT PO (08:15)
[2019-10-22] MEDS: LOSARTAN 50 MG TABLET 100 MG PO (08:15)
--- NOTE | 2019-10-22 08:15 | PM.PN.1 ---
Subjective Subjective Date Patient Seen: 10/22/19 Interval history: Patient had another episode of SVT last night with ventricular rate around 150 beats per minute. She was asymptomatic with otherwise normal vitals. She remains stable to discharge home from cardiac standpoint. Exam Vital Signs (past 8 hours): - 10/22/19 05:00 10/22/19 08:00 Temperature 99.4 F 98.2 F Pulse Rate 82 85 Respiratory Rate 20 18 Blood Pressure 165/76 H 157/72 H Pulse Oximetry 94 95 Oxygen Delivery Method Room Air Oxygen Flow Rate 0 Objective Labs Result Diagrams: 10/21/19 04:35 10/21/19 07:28 Labs: Laboratory Results - last 24 hr 10/21/19 10/21/19 10/21/19 07:28 14:32 17:18 Sodium 136 L Potassium 4.0 Chloride 106 Carbon Dioxide 28 BUN 15 Creatinine 0.90 Estimated GFR > 60.0 BUN/Creatinine Ratio 16.7 Glucose 149 H Calcium 8.0 L Magnesium 1.9 1.8 TSH 10/21/19 10/21/19 17:18 17:18 Sodium Potassium Chloride Carbon Dioxide BUN Creatinine Estimated GFR BUN/Creatinine Ratio Glucose Calcium Magnesium TSH 1.99 2.08 Assessment & Plan Assessment & Plan narrative: 1. Paroxysmal SVT, recurrent -patient is asymptomatic when in SVT -echo with normal LVEF and no focal wall motion abnormality, no valvular disease -per cardiology recommendation, continue metoprolol succinate 50 mg twice daily -outpatient cardiology follow-up, consideration of outpatient pharmacological stress test once patient has recovered from her back surgery -magnesium and TSH assay levels were normal 2. Type 2 myocardial infarction -demand related ischemia from SVT -outpatient stress test to rule out coronary occlusive disease 3. Type 2 diabetes -glucose controlled on oral medications 4. Chronic back pain, status post T-LIFF Quality VTE Deep Vein Thrombosis/Pulmonary Embolism Present on Admission: No
[2019-10-22] MEDS: METOPROLOL ER 50 MG TABLET PO (08:16)
[2019-10-22] MEDS: MULTIVITAMIN 1 TABLET 1 TAB PO (08:16)
[2019-10-22] MEDS: NYSTATIN CREAM 30 GM 1 APPLIC TOP (08:16)
[2019-10-22] MEDS: OXYBUTYNIN 5 MG TABLET PO (08:17)
[2019-10-22] MEDS: PANTOPRAZOLE 20 MG TABLET PO (08:17)
--- NOTE | 2019-10-22 09:00 | OT.IP.TRT ---
Current Diagnoses Acute posthemorrhagic anemia (10/18/19) Supraventricular tachycardia (10/18/19) Other secondary scoliosis, lumbar region (10/18/19) Other spondylosis with radiculopathy, thoracic region (10/18/19) Spinal stenosis, lumbar region without neurogenic claudication (10/18/19) Arthrodesis status (10/18/19) Surgery Performed Operation Date: 10/18/19 07:45 Actual Procedures p L4-5 Hardware removal , L2-3, L3-4 Translaminar lumbar interbody fusion, L1-2 right hemilaminectomy, L2-5 PSF w/ instrumentation - Ricky Hager MD Occupational Therapy Treatment Note M2 OT-IP Current Condition Start: 10/19/19 12:34 Freq: Status: Active Protocol: Document 10/19/19 12:35 CGR (Rec: 10/19/19 12:54 CGR [email or web address]) Occupational Therapy Current Condition Current Condition Evaluation Date 10/19/19 Treatment Diagnosis L2-5 TLIF Diagnosis Onset Date 10/18/19 Post Operative Precautions Lumbar Precautions Log Roll,No Twisting,Limit Bending,Lifting Restriction of 10 lbs,Gait Belt above Incisional Area M3 OT- IP Subjective and Pain Start: 10/19/19 12:34 Freq: Status: Active Protocol: Document 10/22/19 09:47 CCC (Rec: 10/22/19 09:59 CCC [email or web address]) OT- Subjective Occupational Therapy Visit Type Type Treatment Note Visit Start Time 08:52 Visit Stop Time 09:38 Total Visit Minutes 46 Occupational Therapy Visit Comments Patient Comments Pt wanting to shower prior to going home today. Patient/Caregiver Goals To go home. OT Pain Assessment Pain When Pain Assessed At Rest Pain Present Pain Present Pain Reported Location Back Intensity 8 Scale Used Numeric (1 - 10) M4 OT- IP ADL's Start: 10/19/19 12:34 Freq: Status: Active Protocol: Document 10/22/19 09:47 CCC (Rec: 10/22/19 09:59 CCC [email or web address]) OT [id number] Comments OT Self-Feeding Comments Not meal time. OT ADL-Dressing General Eval Upper Body Dressing Ability Maximum Assistance Comments OT Dressing Comments Due to pt too tired from showering and feeling dizzy, pt MAX A for LB dressing needs . OT ADL-Toileting General Evaluation Toileting Ability Moderate Assistance Comments OT Toileting Comments Pt needing assist to wipe from the back and able to manage to wipe after urinating from the front and standing. Educated pt will need assist from or use of toilet aid. OT ADL-Bathing Bathing Type Bathing Type Shower General Evaluation Bathing Ability Maximal Assistance Areas Needing Assistance Wash/Dry Back,Wash/Dry Perineal Area,Wash/Dry Lower Extremities Comments OT Bathing Comments Pt getting tired and needing assist for LE, back, hair, and pericare needs. Pt's will be able to assist pt at home. Pt states feeling dizzy and use of wheelchair to get back to the room, BP 92/38, nursing present and then transferred back to the bed bp 156/85. M5 OT- IP IADL's Start: 10/19/19 12:34 Freq: Status: Active Protocol: Document 10/19/19 12:35 CGR (Rec: 10/19/19 12:54 CGR [email or web address]) OT-Instrumental Activities of Daily Living Deficits IADL Deficits Identified No Deficits Home Safety Awareness Awareness of Need for Assistance at Home Good Awareness Ability to Problem Solve Emergency Able to Problem Solve Situations Medication Management Medication Management No Deficits Identified Money Management Money Management No Deficits Identified Meal Preparation Meal Preparation Caregiver Provides Assist Machine Shop Repair Technician Machine Shop Repair Technician Caregiver Provides Assist Driving Driving Caregiver Provides Assist M6 OT- IP Functional Cognition Start: 10/19/19 12:34 Freq: Status: Active Protocol: Document 10/22/19 09:47 [facility] (Rec: 10/22/19 09:59 [facility] [email or web address]) Cognitive Factors Limiting Selfcare Function Cognitive Comments Cognitive Assessment Comments No deficits, pt able to call to make arrangements for boat ride home and able to have good insight to have their dog stay longer at boarding so able to be a home to adjust first. M7 OT- IP Mobility and Balance Start: 10/19/19 12:34 Freq: Status: Active Protocol: Document 10/22/19 09:47 [facility] (Rec: 10/22/19 09:59 [facility] [email or web address]) OT-Transfer Assessment Sit to and From Stand Sit to and from Stand Standby Assistance Transfers Transfer Ability Standby Assistance,Minimal Assistance,1 Person Assistance Technique Transfer Destination Bed,Chair,Shower Stall,Toilet Transfer Technique Stand Step Pivot Devices Transfer Assistive Devices Gait Belt,Front Wheeled Walker Comments Mobility Comments If pt has armrest to push from able to stand with SBA, however if not able to have use of arms, needs AMRITA to stand. OT- Gait Assessment Gait Gait Assistance Required: Standby Assistance Assistive Devices Assistive Device Gait Belt,Front Wheeled Walker Comments Gait Ability Comments Pt more steadier on her feet today and SBA to walk to the shower room from her room with FWW. OT- Balance Assessment Sitting Balance and Reactions Static Sitting Balance Ability Normal Dynamic Sitting Balance Ability Good Standing Balance and Reactions Static Standing Balance Ability Fair M8 OT- IP Objective Assessments Start: 10/19/19 12:34 Freq: Status: Active Protocol: Document 10/19/19 12:35 CGR (Rec: 10/19/19 12:54 CGR [email or web address]) OT Gross Range of Motion Upper Extremity Range of Motion Assessment Within Functional Limits OT Strength Upper Extremity Strength Assessment Within Functional Limits Hand Installer Inspector Final Strength Hand Dominance Right OT- Coordination Assessment Upper Extremity Finger to Nose Test Within Functional Limits Finger Tapping Test Within Functional Limits OT-Muscle Tone Assessment Muscle Tone WNL Yes OT Sensation Assessment Edema Edema Present Edema Comments R hand swollen from IV. M9 OT- IP Assessment and Plan Start: 10/19/19 12:34 Freq: Status: Active Protocol: Document 10/22/19 09:47 [facility] (Rec: 10/22/19 09:59 CCC [email or web address]) OT Summary Assessment and Plan Potential Rehabilitation Potential Excellent Analytic Complexity at Evaluation Low Summary OT Impairments Pain,Balance,Dressing, Toileting,Bathing,Shower Transfers Progress Towards Goals Progressing Toward Goals Assessment Summary Pt able to tolerate showering today but needing assist due to decreased activity tolerance. Pt's able to assist pt for all OT needs. To to do stair training with pt's prior to going home. Goals Patient/Caregiver Education Goal Caregiver Independent Assisting Patient Days to Meet Goals 1 Frequency of Treatment Frequency Of Treatment Once a Day Treatment Plan OT Treatment Plan ADL Training,Functional Mobility,Patient/Family Education,Discharge Planning Discharge Recommendations OT Discharge Recommendations Home with Assistance Home Equipment Needs Pt provided with hip kit minus sock aid as pt states her son has one that she can use.
--- NOTE | 2019-10-22 09:04 | CM.DPC ---
DCP: continued: Case received and d/c order noted: per Aurea Sepulveda early this morning. EMR documentation from CM/DCplanning team and therapy team indicates plan for d/c to the home settiing. Have placed call to the ICU setting and KEVIN Koehler states that therapist is currently working with pt and that all is set for the d/c home today. She agrees to alert this DCPlanner if anything is needed for the d/c. P: home...will follow up as need be after Team Rounds today.
--- NOTE | 2019-10-22 10:56 | PT.IPTN ---
Current Diagnoses Acute posthemorrhagic anemia (10/18/19) Supraventricular tachycardia (10/18/19) Other secondary scoliosis, lumbar region (10/18/19) Other spondylosis with radiculopathy, thoracic region (10/18/19) Spinal stenosis, lumbar region without neurogenic claudication (10/18/19) Arthrodesis status (10/18/19) Surgery Performed Operation Date: 10/18/19 07:45 Actual Procedures p L4-5 Hardware removal , L2-3, L3-4 Translaminar lumbar interbody fusion, L1-2 right hemilaminectomy, L2-5 PSF w/ instrumentation - Ricky Hager MD Physical Therapy Treatment Note M2 PT-IP Current Condition Start: 10/19/19 10:18 Freq: NEEDED Status: Active Protocol: Document 10/19/19 09:25 AB (Rec: 10/19/19 10:29 AB [id number]) Physical Therapy Current Condition Current Condition Evaluation Date 10/19/19 Treatment Diagnosis s/p L2-5 fusion; difficulty in walking Onset Date 10/18/19 Precautions Lumbar Precautions Log Roll,No Twisting,Limit Bending,Lifting Restriction of 10 lbs,Gait Belt above Incisional Area M3 PT-IP Subjective Start: 10/19/19 10:18 Freq: NEEDED Status: Active Protocol: Document 10/22/19 10:56 CLB (Rec: 10/22/19 11:51 CLB [id number]) Subjective Physical Therapy Visit Type Type Treatment Note Visit Start Time 10:56 Visit Stop Time 11:26 Total Visit Minutes 30 Number of AUTOMOTIVE TIRE TECHNICIAN Visits 1 Physical Therapy Visit Comments Patient Comments Pt eager to climb steps so she can go home. Therapy Pain Assessment Pain When Pain Assessed During Mobility Pain Present Pain Present Pain Reported Location Back Intensity 7 Scale Used Numeric (1 - 10) Pain Management Techniques Re-positioning,Timing of Activity with Medications M4 PT-IP Mobility and Gait Start: 10/19/19 10:18 Freq: NEEDED Status: Active Protocol: Document 10/22/19 10:56 CLB (Rec: 10/22/19 11:51 CLB [id number]) PT-Bed Mobility Assessment Rolling Type of Rolling Roll to Left Level of Assist Standby Assistance Supine to Sit Supine to Sit Standby Assistance,Bedrails Sit to Supine Sit to Supine Standby Assistance,Bedrails PT-Transfer Assessment Sit to and From Stand Sit to and from Stand Standby Assistance,1 Person Assistance,Use of Upper Extremities Equipment Transfer Assistive Device Gait Belt,Front Wheeled Walker Orthotic/Prosthetic Devices or Brace: No Transfers Transfer Destination Bed,Wheelchair Transfer Ability Level of Assist Standby Assistance Comments Mobility Comments Pt is SBA for log roll,sup-sit and gave pt Min A of LE's during sit-supine. Pt left in bed with all needs within reach and present in room. Gait Assessment Gait Gait Assistance Required: Contact Guard Assist Distance (Feet) 30 Able to Maintain Weight Bearing Status Yes During Gait Assistive Devices Assistive Device Gait Belt,Front Wheeled Walker Orthotic/Prosthetic Devices or Brace: No Gait Deviations General Gait Pattern Antalgic,Decreased Stride Length,Decreased Feet Clearance Factors Limiting Gait Function Factors Limiting Gait Function Decreased Activity Tolerance, Decreased Strength,Limited Range of Motion,Pain,Poor Balance Comments Gait Comments Pt ambulated ~30ft w/FWW/SBA. Stair Climbing Assessment Evaluation Level of Assist On Stairs Contact Guard Assistance,1 Person Assistance Devices Stair Climbing Assistive Devices Left Railing,Right Railing Technique/Endurance Stair Climbing Direction Ascend and Descend Stair Climbing Technique Step to Step Number of Steps Climbed 3 Stair Climbing Set # Repetitions (reps) 2 Comments Stair Climbing Comments Pt able to climb steps once with therapist providing CGA then was able to provide assistance on steps. M5 PT-IP Objective Assessments Start: 10/19/19 10:18 Freq: NEEDED Status: Active Protocol: Document 10/19/19 09:25 AB (Rec: 10/19/19 10:29 AB [id number]) Orientation Orientation/Cognition Level of Alertness Alert Orientation Name,Age,Birthday,Month,Date, Year,Day of Week,Place, Situation Language Function Ability No Deficits Noted Safety Awareness Understands Safety Issues Memory Description No Deficits Noted Gross Range of Motion Lower Extremity ROM Assessment Within Functional Limits Strength Lower Extremity Strength Hip 4-/5 Knee 4-/5 Coordination Assessment Gross Coordination Gross Coordination WNL Sensation Assessment Sensation Gross Sensation WNL Muscle Tone Muscle Tone WNL Yes M6 PT-IP Treatment Start: 10/19/19 10:18 Freq: NEEDED Status: Active Protocol: Document 10/21/19 11:18 AW (Rec: 10/21/19 11:36 AW [id number]) Physical Therapy Treatment Education Education Provided Precautions,Safety M7 PT-IP Assessment and Plan Start: 10/19/19 10:18 Freq: NEEDED Status: Active Protocol: Document 10/22/19 10:56 CLB (Rec: 10/22/19 11:51 CLB [id number]) PT Summary Assessment and Plan Potential Rehabilitation Potential Good Status of Condition at Evaluation Evolving Summary Impairments Pain,ROM,Strength,Balance, Coordination,Sensation,Bed Mobility,Transfers,Gait, Activity Tolerance Progress Towards Goals Slow Progress due to Pain,Slow Progress due to Activity Tolerance Assessment Summary Pt able to climb steps with CGA provided by . Pt is SBA-Min A for bed mobility as pt requires assist with LE's. Pt moves slowly but has good safety awareness and has steady gait but continues to have decreased activity tolerance. Goals Bed Mobility Goal Standby Assistance Transfer Goal Standby Assistance,Front Wheeled Walker Gait Goal Standby Assistance,Front Wheel Walker Gait Distance 150 Other Goals up/down 15 steps with bilateral rails SBA Days to Meet Goals 5 Frequency of Treatment Frequency Of Treatment Twice a Day Treatment Plan Physical Therapy Treatment Plan Bed Mobility Training,Transfer Training,Gait Training, Therapeutic Exercise,Balance Retraining,Post Op Education, Discharge Planning,Hot or Cold Pack,Neuromuscular Re-ed, Coordination Retraining,Manual Therapy Recommendations To Nursing Amount of Assist Needed 1 Person Assist Discharge Recommendations PT Discharge Recommendations Home with Assistance
== END 2019-10-22 12:15 | disposition home or self-care (01) | DRG 453 ==
LOC: AC 06:14 → ICU 06:36 → AC 11:43 → ICU 10-21 14:55 → AC 10-21 15:30 → ICU 10-21 15:30
PROVIDERS: Internal Medicine; Nurse Practitioner; Orthopaedic Surgery Foot and Ankle Surgery; Physician Assistant; Admitting Provider Orthopaedic Surgery Orthopaedic Surgery of the Spine; PCP Family Medicine; Visit Provider Orthopaedic Surgery Orthopaedic Surgery of the Spine
PROC: 0SG10AJ Fusion of 2 or more Lumbar Vertebral Joints with Interbody Fusion Device, Posterior Approach, Anterior Column, Open Approach (ICD-10-PCS; principal; 2019-10-18 07:45)
DX: M48.061 Spinal stenosis, lumbar region without neurogenic claudication (principal); J96.01 Acute respiratory failure with hypoxia; I21.A1 Myocardial infarction type 2; I47.1 Supraventricular tachycardia; M96.0 Pseudarthrosis after fusion or arthrodesis; E66.9 Obesity, unspecified; Z68.39 Body mass index [BMI] 39.0-39.9, adult; M41.56 Other secondary scoliosis, lumbar region; E11.42 Type 2 diabetes mellitus with diabetic polyneuropathy; E03.9 Hypothyroidism, unspecified; I10 Essential (primary) hypertension; M96.1 Postlaminectomy syndrome, not elsewhere classified; M43.16 Spondylolisthesis, lumbar region; G89.18 Other acute postprocedural pain; M06.9 Rheumatoid arthritis, unspecified; Z85.038 Personal history of other malignant neoplasm of large intestine; Z79.84 Long term (current) use of oral hypoglycemic drugs
CPT/HCPCS: 36415; 71045; 72100; 76000; 78582; 80048; 82550; 82553; 82565; 82962; 83735; 83880; 84443; 84484; 85014; 85018; 85025; 85379; 87797; 93005; 93306; 93970; 94760; 97116; 97162; 97165; 97530; 97535; A9539; A9540; C1776; C9290; J0153; J0330; J0690; J1170; J1200; J1650; J2060; J2250; J2405; J2704; J2765; J3010; J3410

== ENCOUNTER 2019-11-21 10:31 | Emergency (ER) | payer OTHER, SELFPAY ==
[2019-10-18 15:11] VITALS: BMI 39.8
[2019-11-21 11:11] VITALS: BP 172/79; PULSE 80; RESP 20; TEMP 36.3; O2SAT 100; BMI 35.5
--- NOTE | 2019-11-21 12:05 | ED.BACK ---
HPI - Back Pain/Injury <Theresa SofiaINOCENCIO - Last Filed: 11/21/19 22:03> General Chief Complaint: Back Pain/Injury Stated Complaint: SURGERY 4 WEEKS AGO,INCISIONS INFECTED Time Seen by Provider: 11/21/19 11:52 Source: patient and family Limitations: no limitations History of Present Illness HPI Narrative: 74-year-old female with a history of spinal surgery on 10/18/2019 (including a laminectomy, interbody cage placement, and hardware removal), presents emergency department for increased drainage noted to surgical scar over the past few days. She states the drainage is a yellow and has had a small amount of increased pain to the area of today, denies purulent drainage. She denies any fevers, chills, numbness, tingling, loss of bowel or bladder control, dizziness, vomiting, decreased appetite, abdominal pain, chest pain, or shortness of breath. She states she has been walking normally. She has had an increased appetite over the past few days. Patient called the Orthopedics office and was told to come here for re-evaluation. Related Data Home Medications Medication Instructions Recorded Confirmed cranberry 1 cap PO BID #0 10/04/11 10/18/19 multivitamin 1 tab PO DAILY #0 10/04/11 10/18/19 Probiotic 1 cap PO DAILY #0 01/15/13 10/18/19 Imodium A-D 2 dose PO BID PRN #0 07/04/17 10/18/19 cholecalciferol (vitamin D3) 1,000 units PO DAILY #0 07/04/17 10/18/19 [Vitamin D3] leflunomide 20 mg PO QDAY #0 07/04/17 10/18/19 sulfasalazine 1,500 mg PO BID #0 07/04/17 10/18/19 *B-D 3ML SYRINGE 1 ea MISCELLANEOUS SEE INSTRUCTIONS 05/28/19 10/18/19 nystatin 1 raymond TOPICAL DAILY 05/28/19 10/10/19 tofacitinib 11 mg tablet,extended 11 mg PO DAILY 08/28/19 10/18/19 release 24 hr acetaminophen [Tylenol Arthritis 1,300 mg PO Q12H PRN 10/10/19 10/18/19 Pain] albuterol sulfate [ProAir HFA] 2 puff INHALATION QID PRN 10/10/19 10/10/19 cyclobenzaprine 10 mg PO BID 10/10/19 10/18/19 gabapentin 300 mg PO TID 11/21/19 11/21/19 Previous Rx's Medication Instructions Recorded glucose test strips #100 each 11/28/18 oxybutynin chloride 5 mg tablet 5 mg PO BID #180 tab 02/19/19 trazodone 50 mg tablet 50 mg PO BEDTIME PRN #30 tab 05/08/19 metformin 500 mg tablet,extended 500 mg PO BID #60 tab 05/27/19 release 24 hr atorvastatin 10 mg tablet 10 mg PO BEDTIME #90 tab 05/28/19 fenofibrate 160 mg tablet 160 mg PO DAILY #90 tab 05/28/19 levothyroxine 75 mcg tablet 75 mcg PO DAILY #90 tab 05/28/19 losartan 100 mg tablet 100 mg PO DAILY #90 tab 07/15/19 glipizide 10 mg tablet 5 mg PO BID #90 tab 08/06/19 hydrocodone 5 mg-acetaminophen 325 1 tab PO Q4-6H PRN #60 tab 08/20/19 mg tablet omeprazole 20 mg capsule,delayed 20 mg PO DAILY #30 cap 08/28/19 release ciprofloxacin HCl 500 mg tablet 500 mg PO BEDTIME #90 tab 10/01/19 blood-glucose meter #1 each 10/11/19 acetaminophen 650 mg PO Q6HR PRN #30 tab 10/22/19 aspirin 325 mg PO DAILY #30 tab 10/22/19 docusate sodium [DOK] 100 mg PO BID #30 cap 10/22/19 hydromorphone 2 mg PO Q3H PRN #70 tab 10/22/19 hydroxyzine pamoate 25 mg PO Q4HR PRN #30 cap 10/22/19 metoprolol succinate 50 mg 50 mg PO BID #60 tab 11/20/19 tablet,extended release 24 hr cephalexin [Keflex] 500 mg PO QID 7 Days #28 cap 11/21/19 Allergies Allergy/AdvReac Type Severity Reaction Status Date / Time Iodine and Iodide Containing Allergy Severe Anaphylaxis Verified 10/10/19 14:10 Produc povidone-iodine Allergy Severe Anaphylaxis Verified 10/10/19 14:10 [From Betadine] shellfish derived Allergy Severe Anaphylaxis Verified 10/18/19 15:06 soap [From Betadine] Allergy Severe Anaphylaxis Verified 10/10/19 14:10 tramadol AdvReac Severe Vomiting Verified 10/18/19 15:06 Penicillins AdvReac Unknown Family has Verified 10/18/19 15:06 had issues with penicillin [employer] Allergy Severe Anaphylaxis Uncoded 10/10/19 14:10 FISH PROTEIN Allergy Severe Anaphylaxis Uncoded 10/10/19 14:10 Review of Systems <INOCENCIO Driscoll - Last Filed: 11/21/19 22:03> Review of Systems Narrative: REVIEW OF SYSTEMS: GENERAL: Denies fever or chills. HENT: No head trauma, hearing loss or sore throat. EYES: No loss of vision, double vision, eye pain, or irritation. CARDIOVASCULAR: No chest pain or syncope. RESPIRATORY: No shortness of breath or cough. GASTROINTESTINAL: No nausea, vomiting, diarrhea, or constipation. GENITOURINARY: No flank pain or dysuria. MUSCULOSKELETAL: No pain, weakness, or deformities. INTEGUMENTARY: Complains of increasing drainage to incision site on back, see HPI. NEURO: No numbness, tingling, memory loss, or confusion. PSYCH: No behavior or mood changes. Patient History <INOCENCIO Driscoll - Last Filed: 11/21/19 22:03> Medical History Anxiety (Acute) Anxiety disorder due to general medical condition (Acute) Back pain with history of spinal surgery (Acute) BCC (basal cell carcinoma) (Acute) Carpal tunnel syndrome (Resolved Unknown) Chickenpox (Resolved Unknown) Chronic back pain (Chronic Unknown) Chronic pain (Acute) Colon polyps (Resolved Unknown) Degenerative disc disease, lumbar (Acute) Depression (Acute) Easy bruisability (Acute) Glaucoma (Acute) Hyperlipemia (Chronic Unknown) Hypertension (Chronic Unknown) Hypothyroidism (Chronic Unknown) Kidney disease (Chronic Unknown) Measles (Resolved Unknown) Migraines (Chronic Unknown) Mumps (Resolved Unknown) Neuropathy (Chronic Unknown) Rheumatoid arthritis (Chronic Unknown) Segmental and somatic dysfunction of rib cage (Acute) Skin cancer (Resolved Unknown) Surgical History H/O colectomy (Acute ~2017) History of arthroscopy of right shoulder (Resolved 07/2012) History of carpal tunnel surgery (Resolved 1981) History of lumbar surgery (Resolved Unknown) History of ovarian cystectomy (Acute ~1974) Hx of appendectomy (Resolved 03/2017) Hx of bilateral cataract extraction (Acute) Hx of cholecystectomy (Resolved 1983) Hx of eye surgery (Acute) Hx of hernia repair (Resolved 04/2011) Hx of laparoscopy (Resolved 03/2017) Hx of lithotripsy (Resolved ~03/2017) Hx of tubal ligation (Resolved 1976) Family History Father Diabetes mellitus Mother Mental health problem Sister Cancer Brother No problems noted. Social History household members: spouse and children Smoking Status: Never smoker alcohol intake: current Smoking Status: Never smoker alcohol intake frequency: a few times a month Substance Use Type: does not use Exam <INOCENCIO Driscoll - Last Filed: 11/21/19 22:03> Initial Vital Signs Initial Vital Signs: Vital Signs Temperature 97.3 F L 11/21/19 11:11 Pulse Rate 80 11/21/19 11:11 Respiratory Rate 20 11/21/19 11:11 Blood Pressure 172/79 H 11/21/19 11:11 Pulse Oximetry 100 11/21/19 11:11 PHYSICAL EXAMINATION: GENERAL: Well groomed, alert, and cooperative. Answers questions promptly and appropriately. Vital signs noted. HENT: Normocephalic, atraumatic. EYES: Symmetrical, sclera white, no periorbital swelling. CARDIOVASCULAR: S1 and S2 sounds normal. Regular rate and rhythm, no murmurs, clicks, or bruits. No pedal edema. RESPIRATORY: Normal respiratory rate, trachea midline, airway patent. No stridor, nasal flaring or accessory muscle use. Lungs are clear in all jay. MUSCULOSKELETAL: To incisions noted to right and left side of spine, right incision with a 3-4 cm area of swelling, no fluctuation, no increased redness, no increased temp. There is a 1 cm area between the lower rate incision of granulated scar tissue, drainage is coming from this area. Drainage is a clear yellow, there is a moderate amount of drainage on the gauze and a small amount on the bed linen. Increased drainage with slight and gentle pressure to the swelling area. No purulent drainage, no increased tenderness with palpation. Patient uses a walker to walk, slow gait due to back pain (she reports this is improved since surgery) equal strength to lower and upper extremities bilaterally. Equal tone and mass bilaterally. No spinal tenderness. EXTREMITIES: CMS intact. No pedal edema. SKIN: Warm, dry, soft, appropriate color for ethnicity. No lesions, rashes, or wounds. NEURO: Alert and Oriented X 3. No sensory deficits. PSYCH: Appropriate affect and mood. <Richard Kent MD - Last Filed: 11/25/19 20:53> Initial Vital Signs Initial Vital Signs: Vital Signs Temperature 97.3 F L 11/21/19 11:11 Pulse Rate 80 11/21/19 11:11 Respiratory Rate 20 11/21/19 11:11 Blood Pressure 172/79 H 11/21/19 11:11 Pulse Oximetry 100 11/21/19 11:11 Course <INOCENCIO Driscoll - Last Filed: 11/21/19 22:03> Course Course Narrative: Patient was offered drainage of the area, we discussed risks and benefits such as increased risk for infection, pain, recurrence of the swelling versus relief of discomfort. After we assessing the area, drainage/ aspiration was declined by patient as most of the area was drained with gentle downward pressure. Orders Ordered: ED Orders 11/21/19 12:33 C-Reactive Protein Quant Stat Complete Blood Count AUTO DIFF Stat Erythrocyte Sedimentation Rate Stat Consultations Consultation #1: Patient staffed with Dr. Kent. Discussed elevated ESR and sed rates, Dr. Kent recommended starting antibiotic therapy at this time. Consultation #2: Dr. Hager from Orthopedic was consulted about patient, agrees that this most likely is a seroma. Recommended giving the patient an option of draining the area with an 18 gauge needle. Recommended follow-up as scheduled on the . Vital Signs Vital signs: Vital Signs - 8 hr 11/21/19 11:11 11/21/19 12:33 Temperature 97.3 F L Pulse Rate 80 77 Respiratory Rate 20 Blood Pressure 172/79 H Blood Pressure [Right Arm] 134/40 L Pulse Oximetry 100 100 <Richard Kent MD - Last Filed: 11/25/19 20:53> Orders Ordered: ED Orders 11/21/19 12:33 C-Reactive Protein Quant Stat Complete Blood Count AUTO DIFF Stat Erythrocyte Sedimentation Rate Stat Vital Signs Vital signs: Vital Signs - 8 hr 11/21/19 11:11 11/21/19 12:33 Temperature 97.3 F L Pulse Rate 80 77 Respiratory Rate 20 Blood Pressure 172/79 H Blood Pressure [Right Arm] 134/40 L Pulse Oximetry 100 100 MDM - Back Pain/Injury <Theresa SofiaINOCENCIO - Last Filed: 11/21/19 22:03> Medical Records Attestation: I reviewed the patient's medical records. Lab Data Attestation: I reviewed the patient's lab results. Result diagrams: 11/21/19 12:33 Labs: Lab Results 11/21/19 11/21/19 Range/Units 12:33 12:33 WBC 6.4 (4.5-11.0) X10^3/uL RBC 3.83 L (4.0-5.2) X10^6/uL Hgb 11.8 L (12.0-16.0) g/dL Hct 34.7 L (36-46) % MCV 90.5 (80-100) fL MCH 30.7 (26-34) PG MCHC 33.9 (30-36) % RDW 14.0 (11.6-14.8) % Plt Count 263 (150-400) X10^3/uL Neut % (Auto) 72.2 (50-75) % Lymph % (Auto) 16.0 L (25-40) % Pratt % (Auto) 8.3 (3-14) % Eos % (Auto) 3.4 (2-4) % Baso % (Auto) 0.1 (0-2) % Neut # (Auto) 4600 (5043-0277) /uL Lymph # (Auto) 1000 L (0857-5662) /uL Pratt # (Auto) 500 (0-900) /uL Eos # (Auto) 200 (0-450) /uL Baso # (Auto) 0 (0-100) /uL ESR 65 H (0-20) MM/HR C-Reactive Protein 2.4 H (<1.0) mg/dL [facility] Narrative Medical decision making narrative: 74-year-old female with a history of back surgery on 10/18/2019 and increasing drainage to wound over the past few days. I suspect this is most likely caused by a seroma due to clear/yellow drainage, small swollen area as described above, and lack of other significant finding of infection such as increased erythema, purulent drainage, and wound has since. Less likely spinal fluid due to lack of other systemic symptoms such as headaches and location of drainage. Patient has an elevated ESR and CRP, differential for this includes recent surgery versus impending infection, due increased risk for infection such as diabetes, past difficulty healing wounds from previous surgeries, and a current draining area, she was placed on antibiotic at this time and consultation with Dr. Hicks. Patient was counseled about decreased secretion of metformin with this medication, she was encouraged to check her blood pressures frequently. Patient was encouraged to follow up on the as scheduled. She was given very strict return precautions. Patient verbalized understanding and agreed with plan of care. <Richard Kent MD - Last Filed: 11/25/19 20:53> Lab Data Labs: Lab Results 11/21/19 11/21/19 Range/Units 12:33 12:33 WBC 6.4 (4.5-11.0) X10^3/uL RBC 3.83 L (4.0-5.2) X10^6/uL Hgb 11.8 L (12.0-16.0) g/dL Hct 34.7 L (36-46) % MCV 90.5 (80-100) fL MCH 30.7 (26-34) PG MCHC 33.9 (30-36) % RDW 14.0 (11.6-14.8) % Plt Count 263 (150-400) X10^3/uL Neut % (Auto) 72.2 (50-75) % Lymph % (Auto) 16.0 L (25-40) % Pratt % (Auto) 8.3 (3-14) % Eos % (Auto) 3.4 (2-4) % Baso % (Auto) 0.1 (0-2) % Neut # (Auto) 4600 (0794-0147) /uL Lymph # (Auto) 1000 L (6711-0605) /uL Pratt # (Auto) 500 (0-900) /uL Eos # (Auto) 200 (0-450) /uL Baso # (Auto) 0 (0-100) /uL ESR 65 H (0-20) MM/HR C-Reactive Protein 2.4 H (<1.0) mg/dL Discharge Plan Departure Patient Disposition: Home Clinical Impression: Seroma Discharge Date/Time: 11/21/19 13:36 Activity Restrictions/Additional Instructions: Thank you for entrusting me with your care today. As discussed, your symptoms are most likely caused by a seroma which is a collection of fluid. However, your ESR and sed rate are elevated so your placed on antibiotic. Please keep the area clean and dressed with gauze. Follow-up with your surgeon as scheduled on the . Return emergency department for any new or worsening symptoms such as increased pain, increased swelling, increased redness, fevers, chills, nausea, vomiting, diarrhea, other concerns. Prescriptions: New cephalexin [Keflex] 500 mg capsule 500 mg PO QID 7 Days Qty: 28 RF: 0 No Action cranberry 1 cap PO BID Qty: 0 RF: 0 multivitamin Tablet 1 tab PO DAILY Qty: 0 RF: 0 Probiotic 1 cap PO DAILY Qty: 0 RF: 0 Imodium A-D 2 dose PO BID PRN (Reason: Diarrhea) Qty: 0 RF: 0 cholecalciferol (vitamin D3) [Vitamin D3] 2,000 unit Capsule 1,000 units PO DAILY Qty: 0 RF: 0 sulfasalazine 500 MG tablet 1,500 mg PO BID Qty: 0 RF: 0 leflunomide 20 MG tablet 20 mg PO QDAY Qty: 0 RF: 0 (DME) glucose test strips Qty: 100 RF: 3 oxybutynin chloride 5 mg tablet 5 mg PO BID Qty: 180 RF: 1 metformin [Glucophage XR] 500 mg tablet extended release 24 hr 500 mg PO BID Qty: 60 RF: 5 levothyroxine [Synthroid] 75 mcg tablet 75 mcg PO DAILY Qty: 90 RF: 1 atorvastatin [Lipitor] 10 mg tablet 10 mg PO BEDTIME Qty: 90 RF: 1 fenofibrate 160 mg tablet 160 mg PO DAILY Qty: 90 RF: 1 losartan 100 mg tablet 100 mg PO DAILY Qty: 90 RF: 0 glipizide 10 mg tablet 5 mg PO BID Qty: 90 RF: 1 hydrocodone-acetaminophen 5-325 mg tablet 1 tab PO Q4-6H PRN (Reason: pain) Qty: 60 RF: 0 ciprofloxacin HCl [Cipro] 500 mg tablet 500 mg PO BEDTIME Qty: 90 RF: 0 (DME) blood-glucose meter Kit See Rx Instructions .ROUTE .MEDSUPPLY Qty: 1 RF: 0 metoprolol succinate 50 mg tablet extended release 24 hr 50 mg PO BID Qty: 60 RF: 0 trazodone 50 mg tablet 50 mg PO BEDTIME PRN (Reason: insomnia) Qty: 30 RF: 5 Xeljanz XR 11 mg tablet extended release 24 hr 11 mg PO DAILY RF: 0 omeprazole 20 mg capsule,delayed release(DR/EC) 20 mg PO DAILY Qty: 30 RF: 1 acetaminophen [Tylenol Arthritis Pain] 650 mg Tablet Extended Release 1,300 mg PO Q12H PRN (Reason: Pain) RF: 0 cyclobenzaprine 10 mg tablet 10 mg PO BID RF: 0 albuterol sulfate [ProAir HFA] 90 mcg/actuation HFA aerosol inhaler 2 puff INHALATION QID PRN (Reason: Shortness Of Breath) RF: 0 acetaminophen 325 mg Tablet 650 mg PO Q6HR PRN (Reason: Pain, Mild (1-3)) Qty: 30 RF: 0 hydromorphone 2 mg Tablet 2 mg PO Q3H PRN (Reason: Pain, Moderate (4-6)) Qty: 70 RF: 0 docusate sodium [DOK] 100 mg Capsule 100 mg PO BID Qty: 30 RF: 0 hydroxyzine pamoate 25 mg Capsule 25 mg PO Q4HR PRN (Reason: Nausea or Muscle spasms) Qty: 30 RF: 0 aspirin 325 mg Tablet,Delayed Release (Dr/Ec) 325 mg PO DAILY Qty: 30 RF: 0 *B-D 3ML SYRINGE 1 SYR 1 ea miscellaneous SEE INSTRUCTIONS RF: 0 nystatin 30 GM cream 1 raymond Topical DAILY RF: 0 gabapentin 300 mg capsule 300 mg PO TID RF: 0 Referrals: Jaspal Rico DO [Primary Care Provider] -
[2019-11-21 12:33] VITALS: BP 134/40; PULSE 77; O2SAT 100
[2019-11-21 12:41] LABS: Add Manual Diff / Slide Review NO; Basophils Absolute Auto 0 /uL (0-100); Basophils Percent Auto 0.1 % (0-2); Eosinophils Absolute Auto 200 /uL (0-450); Eosinophils Percent Auto 3.4 % (2-4); Hematocrit 34.7 % (36-46); Hemoglobin 11.8 g/dL (12.0-16.0); Lymphocytes Absolute Auto 1000 /uL (1100-4500); Mean Corpuscular HGB Conc 33.9 % (30-36); Mean Corpuscular Hemoglobin 30.7 PG (26-34); Mean Corpuscular Volume 90.5 fL (80-100); Monocytes Absolute Auto 500 /uL (0-900); Monocytes Percent Auto 8.3 % (3-14); Neutrophils Absolute Auto 4600 /uL (1500-7000); Neutrophils Percent Auto 72.2 % (50-75); Platelet Count 263 X10^3/uL (150-400); Red Blood Cell Count 3.83 X10^6/uL (4.0-5.2); White Blood Cell Count 6.4 X10^3/uL (4.5-11.0)
[2019-11-21 12:54] LABS: C-Reactive Protein Quant 2.4 mg/dL (<1.0)
[2019-11-21 12:55] LABS: Erythrocyte Sedimentation Rate 65 MM/HR (0-20)
[2019-11-21 13:34] VITALS: BP 156/86; PULSE 84; O2SAT 94
== END 2019-11-21 13:36 | disposition home or self-care (01) ==
PROVIDERS: Emergency Provider Nurse Practitioner; PCP Family Medicine
DX: L76.34 Postprocedural seroma of skin and subcutaneous tissue following other procedure (principal)
CPT/HCPCS: 36415; 85025; 85651; 86140; 99282; 99283

== ENCOUNTER 2019-12-05 13:41 | Day surgery (SDC) | payer OTHER, SELFPAY ==
[2019-10-18 15:11] VITALS: BMI 39.8
[2019-11-29 15:16] VITALS: BMI 39.8
[2019-12-05] VITALS (13 sets, daily range): BP systolic 122–144; BP diastolic 44–69; PULSE 79–91; RESP 12–83; TEMP 36–36.6; O2SAT 94–100; BMI 39.0
[2019-12-05] MEDS: LACTATED RINGERS 1,000 ML 42 ML IV (14:39)
[2019-12-05] MEDS: CLINDAMYCIN 900 MG/50 ML PIGGYBACK 50 MG IV (15:05)
--- NOTE | 2019-12-05 15:12 | PM.PREOP ---
Pre-operative Note Interval Note History & Physical reviewed/Exam performed by Physician: Yes Changes to H&P: No
[2019-12-05] MEDS: SODIUM CHLORIDE 0.9% 1,000 ML, GENTAMICIN 80 MG IRR (15:34)
[2019-12-05] MEDS: BUPIVACAINE 0.25% W/ EPI 30 ML VIAL INJ (15:58)
--- NOTE | 2019-12-05 16:08 | PM.OP.1 ---
Operative Date/Time/Diagnoses Date of procedure: 12/05/19 Time of procedure: 15:08 Pre-op diagnosis: 1. Lumbar wound dehiscience Post-op diagnosis: same Procedure & Clinicians Procedure: 1. Lumbar wound irrigation debridement of skin, subcuatanous tissue and muscle 2. LUmbar wound closure Same procedure as scheduled: Yes Indications: Ms. Manzanares is postop status post lumbar fusion surgery. The patient has been having serous drainage from her left-sided incision over the last 10 days. Wound care and oral antibiotics did not resolve the drainage. After discussing my findings with the patient, I recommended wound irrigation debridement and closure. Patient understands and would like to proceed as planned. Surgeon: Ricky Hager Click Yes if Unassisted: No Anesthesia Type: General Operative Notes Closure Type: primary Specimen(s): none sent Estimated Blood Loss (mL): 5 Blood products transfused: none Procedure in detail: Patient was seen in the preoperative area. Risks and benefits of the surgery was discussed with the patient. Informed consent was obtained from the patient and placed in the chart. Surgical site was marked. Patient was taken to the operative room. General anesthesia was administered. Prophylactic antibiotic was given to the patient less than 30 min before the incision was made. Patient was placed into a prone position on the Aravind table. Patient's back was then prepped and draped in the sterile fashion. Time-out was performed at this time. Patient's right-sided incision was inspected. There is a 1 in long wound on the caudal aspect of the incision. There is minimal drainage. There is exposed granulation tissue. There is no cellulitis. There is no induration or fluctuance on palpation. The wound was then extended cephalad by another inch heel order to expose the full extent of the involvement. The wound was inspected again. The dehiscence was found to be isolated to the subcutaneous layer. The deep fascial layer is intact with no exposed hardware. At this time using a 10 blade as well as a Victor, unhealthy appearing tissue was excised including skin subcutaneous tissue and muscle fascia. After excision all debridement was completed the wound was irrigated copiously with 3 L of sterile normal saline with gentamicin. After the irrigation and debridement was completed the wound was then re-examined. Healthy-appearing tissue was visible on all surfaces of the wound. #1 Nylon suture was used to close the wound in vertical mattress fashion in interrupted fashion. Abel then was placed between the nylon vertical mattress sutures. The wound was closed without any difficulty and without added stress the skin. At this time a sterile dressing was applied the patient's wound/incision. Patient was then woken up from anesthesia and transferred recovery room stable condition. There were no complications. Complications: none Post-operative Condition: stable Disposition: same day surgery Plan for aftercare: Discharge to home
[2019-12-05] MEDS: fentaNYL 100 MCG/2 ML INJ IV ×2 (16:21→16:37)
[2019-12-05] MEDS: FLUCONAZOLE 150 MG TABLET PO (16:58)
--- NOTE | 2019-12-05 17:12 | SUR.PHASEI ---
Patient noted to have yeast in her groin area that is pre-existing. Patient has been using nystatin at home.
== END 2019-12-05 19:22 | disposition home or self-care (01) ==
LOC: OR 13:43 → AC 17:35
PROVIDERS: PCP Family Medicine; Referring Provider Orthopaedic Surgery Orthopaedic Surgery of the Spine; Visit Provider Orthopaedic Surgery Orthopaedic Surgery of the Spine
PROC: (CPT 10180; principal; 2019-12-05 15:00)
DX: T81.32XA Disruption of internal operation (surgical) wound, not elsewhere classified, initial encounter (principal); Z98.1 Arthrodesis status
CPT/HCPCS: 11043; J0330; J1100; J2405; J2704; J3010

== ENCOUNTER → 2020-04-09 09:38 | Outpatient (CLI) | payer OTHER, SELFPAY ==
[2019-12-05 17:36] VITALS: BMI 39.0
[2020-04-09 10:18] LABS: Add Manual Diff / Slide Review NO; Basophils Absolute Auto 0 /uL (0-100); Basophils Percent Auto 0.2 % (0-2); Eosinophils Absolute Auto 100 /uL (0-450); Eosinophils Percent Auto 2.5 % (2-4); Hematocrit 33.9 % (36-46); Hemoglobin 11.5 g/dL (12.0-16.0); Lymphocytes Absolute Auto 800 /uL (1100-4500); Lymphocytes Percent Auto 17.4 % (25-40); Mean Corpuscular Hemoglobin 30.7 PG (26-34); Mean Corpuscular Volume 90.3 fL (80-100); Monocytes Absolute Auto 500 /uL (0-900); Monocytes Percent Auto 11.3 % (3-14); Neutrophils Absolute Auto 3200 /uL (1500-7000); Neutrophils Percent Auto 68.6 % (50-75); Platelet Count 237 X10^3/uL (150-400); Red Blood Cell Count 3.76 X10^6/uL (4.0-5.2); Red Cell Distribution Width 17.2 % (11.6-14.8); White Blood Cell Count 4.6 X10^3/uL (4.5-11.0)
[2020-04-09 10:43] LABS: Hemoglobin A1C% w Est Avg Glu 5.7 % (4.0-6.0)
[2020-04-09 10:45] LABS: Alanine Aminotransferase 20 IU/L (<35); Albumin 4.2 g/dL (3.5-5.0); Albumin Globulin Ratio 1.4 (1.0-2.8); Alkaline Phosphatase 63 U/L (38-126); Aspartate Aminotransferase 57 IU/L (14-36); BUN Creatinine Ratio 16.9 (6-22); Bilirubin Total 0.5 mg/dL (0.2-1.3); Blood Urea Nitrogen 28 mg/dL (7-17); Calcium 9.3 mg/dL (8.4-10.2); Carbon Dioxide 21 mmol/L (22-32); Chloride 104 mmol/L (98-107); Estimated Glomerular Filt Rate 30.4 mL/min (>60); Globulin 3.1 g/dL (1.7-4.1); Glucose 108 mg/dL (80-110); HEMOLYSIS < 15 (0-50); Potassium 4.4 mmol/L (3.4-5.1); Sodium 136 mmol/L (137-145); Total Protein 7.3 g/dL (6.3-8.2)
[2020-04-09 10:52] LABS: C-Reactive Protein Quant < 0.5 mg/dL (<1.0)
[2020-04-09 11:01] LABS: Erythrocyte Sedimentation Rate 5 MM/HR (0-20)
[2020-04-09 11:34] LABS: Vitamin D 25 Hydroxy (D3) 53.6 ng/mL (30.0-100.0)
[2020-04-09 11:47] LABS: Thyroid Stimulating Hormone 1.01 uIU/mL (0.47-4.68)
== END ==
PROVIDERS: PCP Family Medicine; Referring Provider Family Medicine; Visit Provider Family Medicine
DX: E03.9 Hypothyroidism, unspecified (principal); E11.9 Type 2 diabetes mellitus without complications; E78.5 Hyperlipidemia, unspecified; I10 Essential (primary) hypertension
CPT/HCPCS: 36415; 80053; 82306; 83036; 84443; 85025; 85651; 86140

== ENCOUNTER 2020-06-12 13:09 | Emergency (ER) | payer OTHER, SELFPAY ==
[2019-12-05 17:36] VITALS: BMI 39.0
[2020-06-12] VITALS (17 sets, daily range): BP systolic 151–175; BP diastolic 79–84; PULSE 84–144; RESP 13–44; TEMP 37.5; O2SAT 94–97; BMI 32.2
--- NOTE | 2020-06-12 14:04 | DI.RAD.S_ITS ---
PROCEDURE: XR ACUTE ABDOMEN SERIES INDICATIONS: chest pain, vomiting TECHNIQUE: One view chest and two views of the abdomen were acquired. COMPARISON: None. FINDINGS: Surgical changes and devices: Fusion hardware in lower lumbar spine is seen. Surgical clips are noted in gallbladder fossa. Chest: Lungs are clear. Heart size is normal. No pleural effusions. No pneumoperitoneum. Abdomen: Bowel gas pattern is normal. No suspicious calcifications. Visualized solid organ contours appear normal. Bones: No suspicious bony lesions. IMPRESSION: No evidence of bowel obstruction or gross free air. No acute cardiopulmonary pathology. Dictated by: Jacinto Rodriguez M.D. on 06/12/2020 at 13:43 Approved by: Jacinto Rodriguez M.D. on 06/12/2020 at 13:44
[2020-06-12] MEDS: ONDANSETRON 4 MG/2 ML INJ IV (14:16)
[2020-06-12] MEDS: SODIUM CHLORIDE 0.9% 1,000 ML 1000 ML IV (14:18)
[2020-06-12 14:19] LABS: Add Manual Diff / Slide Review NO; Basophils Absolute Auto 0 /uL (0-100); Basophils Percent Auto 0.3 % (0-2); Eosinophils Absolute Auto 0 /uL (0-450); Eosinophils Percent Auto 0.2 % (2-4); Hematocrit 32.5 % (36-46); Hemoglobin 10.8 g/dL (12.0-16.0); INR 1.6 (0.9-1.3); Lymphocytes Absolute Auto 500 /uL (1100-4500); Lymphocytes Percent Auto 8.5 % (25-40); Mean Corpuscular HGB Conc 33.2 % (30-36); Mean Corpuscular Hemoglobin 30.7 PG (26-34); Mean Corpuscular Volume 92.3 fL (80-100); Monocytes Absolute Auto 1000 /uL (0-900); Monocytes Percent Auto 17.5 % (3-14); Neutrophils Absolute Auto 4200 /uL (1500-7000); Neutrophils Percent Auto 73.5 % (50-75); Platelet Count 304 X10^3/uL (150-400); Prothrombin Time 18.6 SECONDS (10.1-12.7); Red Blood Cell Count 3.52 X10^6/uL (4.0-5.2); Red Cell Distribution Width 15.4 % (11.6-14.8); White Blood Cell Count 5.8 X10^3/uL (4.5-11.0)
[2020-06-12 14:21] LABS: PTT Partial Thromboplastin Tim 36 SECONDS (26.4-36.2)
--- NOTE | 2020-06-12 14:22 | PC.NURSE ---
pt medicated as per mdo for nausea. ivf infusing. pt taken for xray by tech
[2020-06-12 14:26] LABS: Lactate (Lactic Acid) 1.1 mmol/L (0.7-2.1)
[2020-06-12 14:27] LABS: Alanine Aminotransferase 20 IU/L (<35); Albumin 3.5 g/dL (3.5-5.0); Albumin Globulin Ratio 1.1 (1.0-2.8); Alkaline Phosphatase 51 U/L (38-126); Amylase 50 U/L (30-110); Aspartate Aminotransferase 56 IU/L (14-36); BUN Creatinine Ratio 18.2 (6-22); Bilirubin Total 0.6 mg/dL (0.2-1.3); Blood Urea Nitrogen 31 mg/dL (7-17); Calcium 8.7 mg/dL (8.4-10.2); Carbon Dioxide 21 mmol/L (22-32); Chloride 100 mmol/L (98-107); Creatine Kinase 230 U/L (30-135); Estimated Glomerular Filt Rate 29.5 mL/min (>60); Globulin 3.1 g/dL (1.7-4.1); Glucose 179 mg/dL (80-110); HEMOLYSIS 22 (0-50); Lipase 28 U/L (23-300); Magnesium 1.3 mg/dL (1.6-2.3); Potassium 3.9 mmol/L (3.4-5.1); Sodium 131 mmol/L (137-145); Total Protein 6.6 g/dL (6.3-8.2)
--- NOTE | 2020-06-12 14:36 | ED_ITS ---
HPI - Nausea/Vomiting/Diarrhea <Gemini Robles, ENVIRONMENTAL ENGINEERING INTERN-BC - Last Filed: 06/12/20 21:27> General Chief complaint: Nausea/Vomiting/Diarrhea Stated complaint: diarrhea, vomiting Time Seen by Provider: 06/12/20 13:33 Source: patient and family Mode of arrival: Ambulatory Limitations: no limitations History of Present Illness HPI Narrative: The patient is a 74-year-old female nonsmoker with history of chronic diarrhea, hypothyroidism, type 2 diabetes, colon resection, cholecystectomy, who presents with a chief complaint of nausea vomiting and diarrhea for the past 9 days. She states she has had approximately 7-10 episodes of watery diarrhea a day. She has also been vomiting 3 to 4 times a d ay. She has been speaking with primary care provider, Dr. Rico, who stated at that point she should come to the emergency department. She has had fevers up to 102. She does complain of vague chest pain, but states that has been going on for months. She states she has abdominal pain and cramping. She states that she uses Cipro regularly since her colon resection about 10 years ago. She is unclear as to exactly why she takes the Cipro, but states that she has been unable to take her medications for the past several days due to vomiting. She states that her stool is watery. She states that she can keep down cold water and popsicles, but is unable to keep down anything else. She has tried the BRAT diet. She denies any dysuria urgency or frequency. She took Tylenol at 0800 this morning or so. Related Data Home Medications Medication Instructions Recorded Confirmed cranberry 1 cap PO BID #0 10/04/11 06/16/20 multivitamin 1 tab PO DAILY #0 10/04/11 06/16/20 Probiotic 1 cap PO DAILY #0 01/15/13 06/16/20 cholecalciferol (vitamin D3) 5,000 units PO DAILY #0 07/04/17 06/16/20 [Vitamin D3] leflunomide 20 mg PO QDAY #0 07/04/17 06/16/20 loperamide [Imodium A-D] 2 - 16 mg PO BID #0 07/04/17 06/16/20 sulfasalazine 1,500 mg PO BID #0 07/04/17 06/16/20 *B-D 3ML SYRINGE 1 ea MISCELLANEOUS SEE INSTRUCTIONS 05/28/19 06/16/20 nystatin 1 raymond TOPICAL DAILY 05/28/19 06/16/20 tofacitinib 11 mg tablet,extended 11 mg PO DAILY 08/28/19 06/16/20 release 24 hr acetaminophen [Tylenol Arthritis 1,300 mg PO Q12H PRN 10/10/19 06/16/20 Pain] albuterol sulfate [ProAir HFA] 2 puff INHALATION QID PRN 10/10/19 06/16/20 cyclobenzaprine 10 mg PO BID 10/10/19 06/16/20 aspirin 81 mg PO DAILY 12/05/19 06/16/20 gabapentin 300 mg capsule 300 mg PO BEDTIME cap 02/05/20 06/16/20 Previous Rx's Medication Instructions Recorded losartan 100 mg tablet 100 mg PO DAILY #90 tab 07/15/19 blood-glucose meter #1 each 10/11/19 oxycodone 5 mg PO Q8H PRN #30 tab 12/05/19 metoprolol succinate 50 mg 50 mg PO BID #60 tab 12/10/19 tablet,extended release 24 hr metformin 500 mg tablet,extended 500 mg PO BID #60 tab 12/19/19 release 24 hr ciprofloxacin HCl 500 mg tablet 500 mg PO BEDTIME #90 tab 01/15/20 glipizide 10 mg tablet 5 mg PO BID #90 tab 02/05/20 trazodone 50 mg tablet 50 mg PO BEDTIME PRN #30 tab 02/05/20 levothyroxine 75 mcg tablet 75 mcg PO DAILY #90 tab 04/01/20 diazepam 5 mg tablet See Rx Instructions .ROUTE 04/13/20 .COMPLEX #60 tab glucose test strips #100 each 05/27/20 atorvastatin 10 mg tablet See Rx Instructions .ROUTE 06/02/20 .COMPLEX #90 tab fenofibrate 160 mg tablet See Rx Instructions .ROUTE 06/02/20 .COMPLEX #90 tab omeprazole 20 mg capsule,delayed See Rx Instructions .ROUTE 06/02/20 release .COMPLEX #90 cap oxybutynin chloride 5 mg tablet See Rx Instructions .ROUTE 06/02/20 .COMPLEX #180 tab ondansetron 4 mg PO Q6H PRN #20 tab 06/12/20 diphenoxylate-atropine 2.5 1 tab PO QID PRN #20 tab 06/16/20 mg-0.025 mg tablet sodium,potassium,mag sulfates 17.5 177 ml PO DAILY #354 ml 06/16/20 gram-3.13 gram-1.6 gram oral soln Allergies Allergy/AdvReac Type Severity Reaction Status Date / Time Iodine and Iodide Containing Allergy Severe Anaphylaxis Verified 06/16/20 14:26 Produc povidone-iodine Allergy Severe Anaphylaxis Verified 06/16/20 14:26 [From Betadine] shellfish derived Allergy Severe Anaphylaxis Verified 06/16/20 14:26 soap [From Betadine] Allergy Severe Anaphylaxis Verified 06/16/20 14:26 tramadol AdvReac Severe Vomiting Verified 06/16/20 14:26 Penicillins AdvReac Unknown Family has Verified 06/16/20 14:26 had issues with penicillin [employer] Allergy Severe Anaphylaxis Uncoded 06/12/20 13:30 FISH PROTEIN Allergy Severe Anaphylaxis Uncoded 06/12/20 13:30 Review of Systems <JERRI Nguyen - Last Filed: 06/12/20 21:27> Review of Systems Narrative: GENERAL: Denies chills, fatigue, malaise, fever, sweats. HEENT: Denies sinus pain, ear pain, sore throat, difficulty swallowing, dizziness. RESPIRATORY: Denies dyspnea, cough, wheezing, hemoptysis, sputum. CARDIOVASCULAR: Denies chest pain, palpitations, orthopnea, edema, GASTROINTESTINAL: See HPI : Denies dysuria, frequency, incontinence, hematuria, urinary retention. MUSCULOSKELETAL: denies weakness, joint pain, or bony pain SKIN: Denies rash, skin lesions, or other NEUROLOGIC: Denies weakness, headache, numbness, change in speech, confusion, seizures, incoordination. PSYCHIATRIC: No concerning psychosocial issues. 12 point review of systems is negative except for those stated above Patient History <JERRI Nguyen - Last Filed: 06/12/20 21:27> Medical History Anxiety (Acute) Anxiety disorder due to general medical condition (Acute) Back pain with history of spinal surgery (Acute) BCC (basal cell carcinoma) (Acute) Carpal tunnel syndrome (Resolved Unknown) Chickenpox (Resolved Unknown) Chronic back pain (Chronic Unknown) Chronic diarrhea (Acute) Chronic pain (Acute) Colon polyps (Resolved Unknown) Degenerative disc disease, lumbar (Acute) Delayed surgical wound healing (Acute 10/18/19) Depression (Acute) Easy bruisability (Acute) Excessive cerumen in right ear canal (Acute) Glaucoma (Acute) Hyperlipemia (Chronic Unknown) Hypertension (Chronic Unknown) Hypoglycemia associated with type 2 diabetes mellitus (Acute) Hypothyroidism (Chronic Unknown) Kidney disease (Chronic Unknown) Measles (Resolved Unknown) Migraines (Chronic Unknown) Mumps (Resolved Unknown) Neuropathy (Chronic Unknown) Rheumatoid arthritis (Chronic Unknown) Segmental and somatic dysfunction of rib cage (Acute) Skin cancer (Resolved Unknown) Skin lesion of left leg (Acute) Surgical History H/O colectomy (Acute ~2016) History of arthroscopy of right shoulder (Resolved 07/2012) History of carpal tunnel surgery (Resolved 1981) History of lumbar surgery (Resolved Unknown) History of ovarian cystectomy (Acute ~1974) Hx of appendectomy (Resolved 03/2017) Hx of bilateral cataract extraction (Acute) Hx of cholecystectomy (Resolved 1983) Hx of eye surgery (Acute) Hx of hernia repair (Resolved 04/2011) Hx of laparoscopy (Resolved 03/2017) Hx of lithotripsy (Resolved ~03/2017) Hx of tubal ligation (Resolved 1976) S/P lumbar fusion (Acute 10/18/19) Family History Father Diabetes mellitus Mother Mental health problem Sister Cancer Brother No problems noted. Social History household members: spouse and children Smoking Status: Never smoker alcohol intake: current Smoking Status: Never smoker alcohol intake frequency: holidays/special occasions only Substance Use Type: does not use Exam <JERRI Nguyen - Last Filed: 06/12/20 21:27> Narrative Exam Narrative: GENERAL: Elderly female no acute distress HEAD: Atraumatic. Normocephalic. No temporal or scalp tenderness. EYES: Pupils equal round and reactive. Extraocular motions intact. No scleral icterus. No injection or drainage. ENT: Nose without bleeding, purulent drainage or septal hematoma. Throat without erythema, tonsillar hypertrophy or exudate. Uvula midline. Airway patent. Slightly dry mucous membranes noted. NECK: Trachea midline. No JVD or lymphadenopathy. Supple, nontender, no meningeal signs. CARDIOVASCULAR: Regular rate and rhythm RESPIRATORY: Clear to auscultation. Breath sounds equal bilaterally. No wheezes, rales, or rhonchi. GASTROINTESTINAL: Abdomen soft, diffusely tender, active bowel sounds nondistended. No hepato-splenomegaly, or palpable masses. No guarding. EXTREMITIES: No clubbing, cyanosis, or edema. No joint tenderness, effusion, or edema noted. BACK: Nontender without deformity or crepitance. No flank tenderness. NEURO: AOx3. SKIN: No rash or erythema on visible skin Initial Vital Signs Initial Vital Signs: Vital Signs Temperature 99.5 F 06/12/20 13:23 Pulse Rate 95 H 06/12/20 13:23 Respiratory Rate 16 06/12/20 13:23 Blood Pressure 151/84 H 06/12/20 13:23 Pulse Oximetry 95 06/12/20 13:23 <Iggy Weems MD - Last Filed: 06/18/20 08:20> Initial Vital Signs Initial Vital Signs: Vital Signs Temperature 99.5 F 06/12/20 13:23 Pulse Rate 95 H 06/12/20 13:23 Respiratory Rate 16 06/12/20 13:23 Blood Pressure 151/84 H 06/12/20 13:23 Pulse Oximetry 95 06/12/20 13:23 Scores <JERRI Nguyen - Last Filed: 06/12/20 21:27> [facility] [place] coma scale eye opening: Spontaneous Ricky coma scale verbal response: Orientated Ricky coma scale motor response: Obey commands Ricky coma scale total score: 15 Course <JERRI Nguyen - Last Filed: 06/12/20 21:27> Orders Ordered: Discontinued Medications Diltiazem HCl (Cardizem Cd) 240 mg PO NOW ONE Stop: 06/12/20 20:20 Last Admin: 06/12/20 20:26 Dose: 240 mg Documented by: CARLOS Diphenhydramine HCl (Benadryl) 25 mg IV NOW ONE Stop: 06/12/20 15:39 Last Admin: 06/12/20 16:35 Dose: 25 mg Documented by: CARLOS Sodium Chloride (Normal Saline 0.9%) 1,000 mls @ 1,000 mls/hr IV BOLUS ONE Stop: 06/12/20 15:02 Last Infusion: 06/12/20 18:30 Dose: 0 mls/hr Documented by: Admin: 06/12/20 14:18 Dose: 1,000 mls/hr Documented by: CARLOS Sodium Chloride (Normal Saline 0.9%) 1,000 mls @ 250 mls/hr IV CONT SUELLEN Last Admin: 06/12/20 18:42 Dose: 250 mls/hr Documented by: CARLOS Magnesium Oxide (Mag Ox) 400 mg PO NOW ONE Stop: 06/12/20 18:56 Last Admin: 06/12/20 19:37 Dose: 400 mg Documented by: GABE Methylprednisolone (Solu-Medrol 125 Mg Vial) 125 mg IV NOW ONE Stop: 06/12/20 15:39 Last Admin: 06/12/20 16:41 Dose: 125 mg Documented by: CARLOS Ondansetron HCl (Zofran) 4 mg IV NOW ONE Stop: 06/12/20 14:04 Last Admin: 06/12/20 14:16 Dose: 4 mg Documented by: CARLOS Vital Signs Vital signs: Vital Signs - 8 hr 06/12/20 14:41 06/12/20 15:00 06/12/20 15:30 Pulse Rate 86 84 91 H Respiratory Rate 13 16 24 Blood Pressure Pulse Oximetry 97 96 95 06/12/20 16:00 06/12/20 16:30 06/12/20 17:00 Pulse Rate 85 90 87 Respiratory Rate 21 23 21 Blood Pressure Pulse Oximetry 95 97 97 06/12/20 17:39 06/12/20 18:00 06/12/20 18:30 Pulse Rate 91 H 86 92 H Respiratory Rate 22 15 20 Blood Pressure Pulse Oximetry 97 96 97 06/12/20 19:00 06/12/20 19:30 06/12/20 20:00 Pulse Rate 87 86 94 H Respiratory Rate 16 23 44 H Blood Pressure Pulse Oximetry 94 96 94 06/12/20 20:10 06/12/20 20:30 06/12/20 20:54 Pulse Rate 144 H 96 H 95 H Respiratory Rate 35 H 24 Blood Pressure 175/79 H Pulse Oximetry 96 95 08/14/20 21:00 Pulse Rate 91 H Respiratory Rate 22 Blood Pressure Pulse Oximetry 94 <Iggy Weems MD - Last Filed: 06/18/20 08:20> Orders Ordered: Discontinued Medications Diltiazem HCl (Cardizem Cd) 240 mg PO NOW ONE Stop: 06/12/20 20:20 Last Admin: 06/12/20 20:26 Dose: 240 mg Documented by: CARLOS Diphenhydramine HCl (Benadryl) 25 mg IV NOW ONE Stop: 06/12/20 15:39 Last Admin: 06/12/20 16:35 Dose: 25 mg Documented by: CARLOS Sodium Chloride (Normal Saline 0.9%) 1,000 mls @ 1,000 mls/hr IV BOLUS ONE Stop: 06/12/20 15:02 Last Infusion: 06/12/20 18:30 Dose: 0 mls/hr Documented by: Admin: 06/12/20 14:18 Dose: 1,000 mls/hr Documented by: CARLOS Sodium Chloride (Normal Saline 0.9%) 1,000 mls @ 250 mls/hr IV CONT SUELLEN Last Admin: 06/12/20 18:42 Dose: 250 mls/hr Documented by: CARLOS Magnesium Oxide (Mag Ox) 400 mg PO NOW ONE Stop: 06/12/20 18:56 Last Admin: 06/12/20 19:37 Dose: 400 mg Documented by: GABE Methylprednisolone (Solu-Medrol 125 Mg Vial) 125 mg IV NOW ONE Stop: 06/12/20 15:39 Last Admin: 06/12/20 16:41 Dose: 125 mg Documented by: CARLOS Ondansetron HCl (Zofran) 4 mg IV NOW ONE Stop: 06/12/20 14:04 Last Admin: 06/12/20 14:16 Dose: 4 mg Documented by: CARLOS Vital Signs Vital signs: Vital Signs - 8 hr 06/12/20 14:41 06/12/20 15:00 06/12/20 15:30 Pulse Rate 86 84 91 H Respiratory Rate 13 16 24 Blood Pressure Pulse Oximetry 97 96 95 06/12/20 16:00 06/12/20 16:30 06/12/20 17:00 Pulse Rate 85 90 87 Respiratory Rate 21 23 21 Blood Pressure Pulse Oximetry 95 97 97 06/12/20 17:39 06/12/20 18:00 06/12/20 18:30 Pulse Rate 91 H 86 92 H Respiratory Rate 22 15 20 Blood Pressure Pulse Oximetry 97 96 97 06/12/20 19:00 06/12/20 19:30 06/12/20 20:00 Pulse Rate 87 86 94 H Respiratory Rate 16 23 44 H Blood Pressure Pulse Oximetry 94 96 94 06/12/20 20:10 06/12/20 20:30 06/12/20 20:54 Pulse Rate 144 H 96 H 95 H Respiratory Rate 35 H 24 Blood Pressure 175/79 H Pulse Oximetry 96 95 06/12/20 21:00 Pulse Rate 91 H Respiratory Rate 22 Blood Pressure Pulse Oximetry 94 MDM - Nausea/Vomiting/Diarrhea <MARIA M Nguyen-BC - Last Filed: 06/12/20 21:27> Lab Data Result diagrams: 06/12/20 14:00 06/12/20 14:00 Labs: Lab Results 06/12/20 06/12/20 06/12/20 Range/Units 14:00 14:00 14:00 WBC 5.8 (4.5-11.0) X10^3/uL RBC 3.52 L (4.0-5.2) X10^6/uL Hgb 10.8 L (12.0-16.0) g/dL Hct 32.5 L (36-46) % MCV 92.3 (80-100) fL MCH 30.7 (26-34) PG MCHC 33.2 (30-36) % RDW 15.4 H (11.6-14.8) % Plt Count 304 (150-400) X10^3/uL Neut % (Auto) 73.5 (50-75) % Lymph % (Auto) 8.5 L (25-40) % [place] % (Auto) 17.5 H (3-14) % Eos % (Auto) 0.2 L (2-4) % Baso % (Auto) 0.3 (0-2) % Neut # (Auto) 4200 (5341-7260) /uL Lymph # (Auto) 500 L (2238-1601) /uL [place] # (Auto) 1000 H (0-900) /uL Eos # (Auto) 0 (0-450) /uL Baso # (Auto) 0 (0-100) /uL PT 18.6 H (10.1-12.7) SECONDS INR 1.6 H (0.9-1.3) APTT 36 (26.4-36.2) SECONDS Sodium 131 L (137-145) mmol/L Potassium 3.9 (3.4-5.1) mmol/L Chloride 100 (98-107) mmol/L Carbon Dioxide 21 L (22-32) mmol/L BUN 31 H (7-17) mg/dL Creatinine 1.70 H (0.52-1.04) mg/dL Estimated GFR 29.5 L (>60) mL/min BUN/Creatinine Ratio 18.2 (6-22) Glucose 179 H (80-110) mg/dL Lactate (0.7-2.1) mmol/L Calcium 8.7 (8.4-10.2) mg/dL Magnesium 1.3 L (1.6-2.3) mg/dL Total Bilirubin 0.6 (0.2-1.3) mg/dL AST 56 H (14-36) IU/L ALT 20 (<35) IU/L Alkaline Phosphatase 51 (38-126) U/L Total Creatine Kinase 230 H (30-135) U/L CK-MB (CK-2) 2.44 H (<2.37) ng/mL CK-MB (CK-2) Rel Index 1.1 L (1.5-5.0) % Troponin I < 0.012 (0.01-0.034) ng/mL Total Protein 6.6 (6.3-8.2) g/dL Albumin 3.5 (3.5-5.0) g/dL Globulin 3.1 (1.7-4.1) g/dL Albumin/Globulin Ratio 1.1 (1.0-2.8) Amylase 50 (30-110) U/L Lipase 28 (23-300) U/L Procalcitonin (<0.5) ng/mL Urine RBC (0-5/HPF) Urine WBC (0-5/HPF) Ur Squamous Epith Cells (0-5/HPF) Ur Transition Epith Cell (0-5/HPF) Ur Renal Epithelial Cell (0-1/HPF) Urine Bacteria (None) Hyaline Casts (None) Ur Culture Indicated? Stool Occult Blood (Negative) Stl C. cayetanensis PCR (Not Detect) Stool Rotavirus (PCR) (Not Detect) Stool Adenovirus (PCR) (Not Detect) Stool Astrovirus (PCR) (Not Detect) Stool Cryptosporidium PCR (Not Detect) Stl E.coli Shiga Tox PCR (Not Detect) St Sh/Enteroin Ecoli PCR (Not Detect) Stool E coli O157 PCR Stl Enterotoxigenic E PCR (Not Detect) Stool EPEC (PCR) (Not Detect) Stl E. histolytica PCR (Not Detect) Stool Giardia Lamblia PCR (Not Detect) Stool Sapovirus (PCR) (Not Detect) Stl P. shigelloides PCR (Not Detect) St Y.enterocolitica PCR (Not Detect) Stool Vibrio (PCR) (Not Detect) Stl Vibrio cholerae PCR (Not Detect) Stl Enteroaggr Ecoli PCR (Not Detect) Stl Norovirus GI/GII PCR (Not Detect) Campylobacter (PCR) (Not Detect) C. difficile Tox (PCR) (Not Detect) COVID-19 PCR (Negative) Salmonella (PCR) (Not Detect) 06/12/20 06/12/20 06/12/20 Range/Units 14:00 14:00 14:00 WBC (4.5-11.0) X10^3/uL RBC (4.0-5.2) X10^6/uL Hgb (12.0-16.0) g/dL Hct (36-46) % MCV (80-100) fL MCH (26-34) PG MCHC (30-36) % RDW (11.6-14.8) % Plt Count (150-400) X10^3/uL Neut % (Auto) (50-75) % Lymph % (Auto) (25-40) % [place] % (Auto) (3-14) % Eos % (Auto) (2-4) % Baso % (Auto) (0-2) % Neut # (Auto) (6518-8293) /uL Lymph # (Auto) (2266-9215) /uL [place] # (Auto) (0-900) /uL Eos # (Auto) (0-450) /uL Baso # (Auto) (0-100) /uL PT (10.1-12.7) SECONDS INR (0.9-1.3) APTT (26.4-36.2) SECONDS Sodium (137-145) mmol/L Potassium (3.4-5.1) mmol/L Chloride (98-107) mmol/L Carbon Dioxide (22-32) mmol/L BUN (7-17) mg/dL Creatinine (0.52-1.04) mg/dL Estimated GFR (>60) mL/min BUN/Creatinine Ratio (6-22) Glucose (80-110) mg/dL Lactate 1.1 (0.7-2.1) mmol/L Calcium (8.4-10.2) mg/dL Magnesium (1.6-2.3) mg/dL Total Bilirubin (0.2-1.3) mg/dL AST (14-36) IU/L ALT (<35) IU/L Alkaline Phosphatase (38-126) U/L Total Creatine Kinase (30-135) U/L CK-MB (CK-2) (<2.37) ng/mL CK-MB (CK-2) Rel Index (1.5-5.0) % Troponin I (0.01-0.034) ng/mL Total Protein (6.3-8.2) g/dL Albumin (3.5-5.0) g/dL Globulin (1.7-4.1) g/dL Albumin/Globulin Ratio (1.0-2.8) Amylase (30-110) U/L Lipase (23-300) U/L Procalcitonin 1.04 H (<0.5) ng/mL Urine RBC (0-5/HPF) Urine WBC (0-5/HPF) Ur Squamous Epith Cells (0-5/HPF) Ur Transition Epith Cell (0-5/HPF) Ur Renal Epithelial Cell (0-1/HPF) Urine Bacteria (None) Hyaline Casts (None) Ur Culture Indicated? Stool Occult Blood (Negative) Stl C. cayetanensis PCR (Not Detect) Stool Rotavirus (PCR) (Not Detect) Stool Adenovirus (PCR) (Not Detect) Stool Astrovirus (PCR) (Not Detect) Stool Cryptosporidium PCR (Not Detect) Stl E.coli Shiga Tox PCR (Not Detect) St Sh/Enteroin Ecoli PCR (Not Detect) Stool E coli O157 PCR Stl Enterotoxigenic E PCR (Not Detect) Stool EPEC (PCR) (Not Detect) Stl E. histolytica PCR (Not Detect) Stool Giardia Lamblia PCR (Not Detect) Stool Sapovirus (PCR) (Not Detect) Stl P. shigelloides PCR (Not Detect) St Y.enterocolitica PCR (Not Detect) Stool Vibrio (PCR) (Not Detect) Stl Vibrio cholerae PCR (Not Detect) Stl Enteroaggr Ecoli PCR (Not Detect) Stl Norovirus GI/GII PCR (Not Detect) Campylobacter (PCR) (Not Detect) C. difficile Tox (PCR) (Not Detect) COVID-19 PCR Negative (Negative) Salmonella (PCR) (Not Detect) 06/12/20 06/12/20 06/12/20 Range/Units 16:25 16:25 18:36 WBC (4.5-11.0) X10^3/uL RBC (4.0-5.2) X10^6/uL Hgb (12.0-16.0) g/dL Hct (36-46) % MCV (80-100) fL MCH (26-34) PG MCHC (30-36) % RDW (11.6-14.8) % Plt Count (150-400) X10^3/uL Neut % (Auto) (50-75) % Lymph % (Auto) (25-40) % [place] % (Auto) (3-14) % Eos % (Auto) (2-4) % Baso % (Auto) (0-2) % Neut # (Auto) (1406-9455) /uL Lymph # (Auto) (1442-8639) /uL [place] # (Auto) (0-900) /uL Eos # (Auto) (0-450) /uL Baso # (Auto) (0-100) /uL PT (10.1-12.7) SECONDS INR (0.9-1.3) APTT (26.4-36.2) SECONDS Sodium (137-145) mmol/L Potassium (3.4-5.1) mmol/L Chloride (98-107) mmol/L Carbon Dioxide (22-32) mmol/L BUN (7-17) mg/dL Creatinine (0.52-1.04) mg/dL Estimated GFR (>60) mL/min BUN/Creatinine Ratio (6-22) Glucose (80-110) mg/dL Lactate (0.7-2.1) mmol/L Calcium (8.4-10.2) mg/dL Magnesium (1.6-2.3) mg/dL Total Bilirubin (0.2-1.3) mg/dL AST (14-36) IU/L ALT (<35) IU/L Alkaline Phosphatase (38-126) U/L Total Creatine Kinase (30-135) U/L CK-MB (CK-2) (<2.37) ng/mL CK-MB (CK-2) Rel Index (1.5-5.0) % Troponin I (0.01-0.034) ng/mL Total Protein (6.3-8.2) g/dL Albumin (3.5-5.0) g/dL Globulin (1.7-4.1) g/dL Albumin/Globulin Ratio (1.0-2.8) Amylase (30-110) U/L Lipase (23-300) U/L Procalcitonin (<0.5) ng/mL Urine RBC 1-5/hpf (0-5/HPF) Urine WBC 0-1/hpf (0-5/HPF) Ur Squamous Epith Cells 1-5 /hpf (0-5/HPF) Ur Transition Epith Cell 0-1/hpf (0-5/HPF) Ur Renal Epithelial Cell 0-1/hpf (0-1/HPF) Urine Bacteria None seen (None) Hyaline Casts 1-5/lpf (None) Ur Culture Indicated? Cult not indicated Stool Occult Blood Positive H (Negative) Stl C. cayetanensis PCR Not detected (Not Detect) Stool Rotavirus (PCR) Not detected (Not Detect) Stool Adenovirus (PCR) Not detected (Not Detect) Stool Astrovirus (PCR) Not detected (Not Detect) Stool Cryptosporidium PCR Not detected (Not Detect) Stl E.coli Shiga Tox PCR Not detected (Not Detect) St Sh/Enteroin Ecoli PCR Not detected (Not Detect) Stool E coli O157 PCR Not Reportable Stl Enterotoxigenic E PCR Not detected (Not Detect) Stool EPEC (PCR) Not detected (Not Detect) Stl E. histolytica PCR Not detected (Not Detect) Stool Giardia Lamblia PCR Not detected (Not Detect) Stool Sapovirus (PCR) Not detected (Not Detect) Stl P. shigelloides PCR Not detected (Not Detect) St Y.enterocolitica PCR Not detected (Not Detect) Stool Vibrio (PCR) Not detected (Not Detect) Stl Vibrio cholerae PCR Not detected (Not Detect) Stl Enteroaggr Ecoli PCR Not detected (Not Detect) Stl Norovirus GI/GII PCR Not detected (Not Detect) Campylobacter (PCR) Not detected (Not Detect) C. difficile Tox (PCR) Not detected (Not Detect) COVID-19 PCR (Negative) Salmonella (PCR) Not detected (Not Detect) Urine Dip Bedside Urine Glucose Negative Bedside Urine Bilirubin - Negative Bedside Urine Ketone - Negative Urine Specific [place] 1.015 Bedside Urine Occult Blood + Bedside Urine pH 5.0 Bedside Urine Protein +/- 15 Bedside Urine Urobilinogen +/- 1mg Bedside Urine Nitrite - Negative Bedside Urine Leukocytes - Negative Esterase Imaging Data CT scan - abdomen/pelvis: Radiologist's Impression: [address] [place] [address] CT Scan Report Signed Patient: Shirin Manzanares LMR#: [id number] : 7Acct:[id number] Age/Sex: 74 / FDate of Service: 06/12/20 Loc: ED Accession Number: [id number] Procedure: CT abdomen pelvis w con Ordering Provider: Gemini Robles ENVIRONMENTAL ENGINEERING INTERN- PROCEDURE: CT ABDOMEN PELVIS W CON INDICATIONS: abd pain, fever TECHNIQUE: After the administration of intravenous contrast, 5 mm thick sections acquired from the diaphragm to the symphysis. 5 mm coronal and sagittal reformats were acquired. For radiation dose reduction, the following was used: automated exposure control, adjustment of mA and/or kV according to patient size. COMPARISON: [facility], CT, CT ABDOMEN PELVIS WITHOUT CONTRAST, 02/15/2018, 12:18. FINDINGS: Image quality: Excellent. ABDOMEN: Lung bases: Lung bases are clear. Heart size is normal. Solid organs: A coarse calcification is seen at the dome of the right hepatic lobe. Liver is normal in size and enhancement. Gallbladder appears normal. Biliary system is non dilated. There is diffuse fatty infiltration of the pancreas. Spleen is normal in size and enhancement. No adrenal nodules. Kidneys demonstrate normal size and enhancement, without hydronephrosis. A 3 millimeter nonobstructing calculus is seen in the interpolar region of the right kidney. An additional punctate 2 millimeter calculus is seen in the superior pole of the right kidney is also nonobstructing. Chronic perinephric stranding is seen that has not significantly changed when compared to the prior CT from 02/15/2018. Peritoneum and bowel: Postsurgical changes are seen from partial colectomy. There is marked bowel wall thickening within the distal portion of the ileum proximal to the anastomosis. There are no signs of small bowel obstruction. There is no asci matthew or pneumoperitoneum. Nodes and vessels: No retroperitoneal or mesenteric adenopathy by size c riteria. Aorta and inferior vena cava are normal in size. Nonobstructing Miscellaneous: No ventral hernias. PELVIS: Genitourinary: Bladder wall thickness is normal. A 2 centimeter hypodense ovoid lesion in the left perineal region is most likely a Bartholin's gland cyst. Nonspecific calcifications are seen in the right adnexa that do not appear significantly changed when compared to the prior CT from 2018. Miscellaneous: No inguinal hernias or adenopathy. Bones: Postsurgical changes are seen from posterior lumbar fusion extending from the level of L2 through L5, which has been extended when compared to the prior CT. Multilevel degenerative changes are seen. IMPRESSION: 1. Postsurgical changes from partial right colectomy. There is bowel wall thickening in the distal ileum proximal to the anastomosis compatible with a nonspecific ileitis. There are no signs of small bowel obstruction. 2. Non-obstructing 2-3 mm calculi in the right kidney. No hydronephrosis. Dictated by: Wilfred Tadeo M.D. on 06/12/2020 at 18:04 Approved by: Wilfred Tadeo M.D. on 06/12/2020 at 18:14 Abdominal x-ray: Radiologist's Impression: [address] [place] [id number] XRay Report Signed Patient: Shirin Manzanares LMR#: [id number] : 7Acct:[id number] Age/Sex: 74 / FDate of Service: 06/12/20 Loc: ED Accession Number: [id number] Procedure: XR acute abdomen series Ordering Provider: Gemini Robles PROCEDURE: XR ACUTE ABDOMEN SERIES INDICATIONS: chest pain, vomiting TECHNIQUE: One view chest and two views of the abdomen were acquired. COMPARISON: None. FINDINGS: Surgical changes and devices: Fusion hardware in lower lumbar spine is seen. Surgical clips are noted in gallbladder fossa. Chest: Lungs are clear. Heart size is normal. No pleural effusions. No pneumoperitoneum. Abdomen: Bowel gas pattern is normal. No suspicious calcifications. Visualized solid organ contours appear normal. Bones: No suspicious bony lesions. IMPRESSION: No evidence of bowel obstruction or gross free air. No acute cardiopulmonary pathology. Dictated by: Jacinto Rodriguez M.D. on 06/12/2020 at 13:43 Approved by: Jacinto Rodriguez M.D. on 06/12/2020 at 13:44 ECG Data Attestation: I personally reviewed and interpreted this ECG as follows: Interpretation: Sinus rhythm. Ventricular rate 79. P.r. interval 160. QRS 78. MDM Narrative Medical decision making narrative: The patient is a 74-year-old female who presents with a chief complaint of vomiting several times a day as well as watery diarrhea. She is on ciprofloxacin daily, which she later with states is prophylactic for urinary tract infections. Her x-ray has no acute findings, her EKG is within normal limits. She is noted to have slightly low magnesium and was replaced in the emergency department. I did speak with her PCP, Dr Rico he states that if she does not give a stool sample, we can prophylactically treat her for C diff and stop her ciprofloxacin. However she produces a stool sample which comes back negative for C diff and GI panel. She does have a slightly complicated surgical history of her abdomen including cholecystectomy, appendectomy, partial colectomy. Given that she was febrile with abdominal pain, I did obtain a CT which had no acute findings but was noted to have is s ome bowel wall thickening in the distal ileum. The patient was rehydrated throughout her stay in the emergency department, did feel slightly better after a dose of Zofran. Given the patient's complexity, I did speak with Dr. Weems given the patient's imaging, GI panel results, slightly elevated procalcitonin he states the patient to be hydrated in discharge as long as she can tolerate oral food and fluids. She should follow up with primary care provider for consideration of a colonoscopy. He does not recommend prophylactically treating for C diff at this point time. Thus I placed her on Zofran and encouraged a simple diet. The patient repeatedly asked about ice cream, chicken fingers, mashed potatoes with gravy and I encouraged her to avoid fatty foods, deep fried spicy foods etcetera. I discussed at length coming back to the emergency department for any acute concerns. Of no on discharge, the patient's heart rate did increase to the 140s for less than a minute. She states that she has not been taking her cardiac medications, was given diltiazem and had no recurrence despite monitoring. Thus I believe her episode of tachycardia was related to not taking her cardiac medications, which she agrees with. After monitoring after her episode of tachycardia and subsequent medications, she remained heart rate in the 80s to low 90s. The patient then requested to go home. I did discussed at length coming back to the emergency department for any acute concerns as well as the importance of follow-up with primary care provider in the next 48-72 hours. Patient has been of no questions or concerns upon discharge and state understanding return precautions as well as follow-up care. Of note the patient had no episodes of vomiting throughout her stay in the emergency department and was able to tolerate oral food and fluids prior to discharge. <Iggy Weems MD - Last Filed: 06/18/20 08:20> Lab Data Labs: Lab Results 06/12/20 06/12/20 06/12/20 Range/Units 14:00 14:00 14:00 WBC 5.8 (4.5-11.0) X10^3/uL RBC 3.52 L (4.0-5.2) X10^6/uL Hgb 10.8 L (12.0-16.0) g/dL Hct 32.5 L (36-46) % MCV 92.3 (80-100) fL MCH 30.7 (26-34) PG MCHC 33.2 (30-36) % RDW 15.4 H (11.6-14.8) % Plt Count 304 (150-400) X10^3/uL Neut % (Auto) 73.5 (50-75) % Lymph % (Auto) 8.5 L (25-40) % Briscoe % (Auto) 17.5 H (3-14) % Eos % (Auto) 0.2 L (2-4) % Baso % (Auto) 0.3 (0-2) % Neut # (Auto) 4200 (7616-3759) /uL Lymph # (Auto) 500 L (6033-3766) /uL Briscoe # (Auto) 1000 H (0-900) /uL Eos # (Auto) 0 (0-450) /uL Baso # (Auto) 0 (0-100) /uL PT 18.6 H (10.1-12.7) SECONDS INR 1.6 H (0.9-1.3) APTT 36 (26.4-36.2) SECONDS Sodium 131 L (137-145) mmol/L Potassium 3.9 (3.4-5.1) mmol/L Chloride 100 (98-107) mmol/L Carbon Dioxide 21 L (22-32) mmol/L BUN 31 H (7-17) mg/dL Creatinine 1.70 H (0.52-1.04) mg/dL Estimated GFR 29.5 L (>60) mL/min BUN/Creatinine Ratio 18.2 (6-22) Glucose 179 H (80-110) mg/dL Lactate (0.7-2.1) mmol/L Calcium 8.7 (8.4-10.2) mg/dL Magnesium 1.3 L (1.6-2.3) mg/dL Total Bilirubin 0.6 (0.2-1.3) mg/dL AST 56 H (14-36) IU/L ALT 20 (<35) IU/L Alkaline Phosphatase 51 (38-126) U/L Total Creatine Kinase 230 H (30-135) U/L CK-MB (CK-2) 2.44 H (<2.37) ng/mL CK-MB (CK-2) Rel Index 1.1 L (1.5-5.0) % Troponin I < 0.012 (0.01-0.034) ng/mL Total Protein 6.6 (6.3-8.2) g/dL Albumin 3.5 (3.5-5.0) g/dL Globulin 3.1 (1.7-4.1) g/dL Albumin/Globulin Ratio 1.1 (1.0-2.8) Amylase 50 (30-110) U/L Lipase 28 (23-300) U/L Procalcitonin (<0.5) ng/mL Urine RBC (0-5/HPF) Urine WBC (0-5/HPF) Ur Squamous Epith Cells (0-5/HPF) Ur Transition Epith Cell (0-5/HPF) Ur Renal Epithelial Cell (0-1/HPF) Urine Bacteria (None) Hyaline Casts (None) Ur Culture Indicated? Stool Occult Blood (Negative) Stl C. cayetanensis PCR (Not Detect) Stool Rotavirus (PCR) (Not Detect) Stool Adenovirus (PCR) (Not Detect) Stool Astrovirus (PCR) (Not Detect) Stool Cryptosporidium PCR (Not Detect) Stl E.coli Shiga Tox PCR (Not Detect) St Sh/Enteroin Ecoli PCR (Not Detect) Stool E coli O157 PCR Stl Enterotoxigenic E PCR (Not Detect) Stool EPEC (PCR) (Not Detect) Stl E. histolytica PCR (Not Detect) Stool Giardia Lamblia PCR (Not Detect) Stool Sapovirus (PCR) (Not Detect) Stl P. shigelloides PCR (Not Detect) St Y.enterocolitica PCR (Not Detect) Stool Vibrio (PCR) (Not Detect) Stl Vibrio cholerae PCR (Not Detect) Stl Enteroaggr Ecoli PCR (Not Detect) Stl Norovirus GI/GII PCR (Not Detect) Campylobacter (PCR) (Not Detect) C. difficile Tox (PCR) (Not Detect) COVID-19 PCR (Negative) Salmonella (PCR) (Not Detect) 06/12/20 06/12/20 06/12/20 Range/Units 14:00 14:00 14:00 WBC (4.5-11.0) X10^3/uL RBC (4.0-5.2) X10^6/uL Hgb (12.0-16.0) g/dL Hct (36-46) % MCV (80-100) fL MCH (26-34) PG MCHC (30-36) % RDW (11.6-14.8) % Plt Count (150-400) X10^3/uL Neut % (Auto) (50-75) % Lymph % (Auto) (25-40) % Briscoe % (Auto) (3-14) % Eos % (Auto) (2-4) % Baso % (Auto) (0-2) % Neut # (Auto) (4417-7597) /uL Lymph # (Auto) (5072-5233) /uL Briscoe # (Auto) (0-900) /uL Eos # (Auto) (0-450) /uL Baso # (Auto) (0-100) /uL PT (10.1-12.7) SECONDS INR (0.9-1.3) APTT (26.4-36.2) SECONDS Sodium (137-145) mmol/L Potassium (3.4-5.1) mmol/L Chloride (98-107) mmol/L Carbon Dioxide (22-32) mmol/L BUN (7-17) mg/dL Creatinine (0.52-1.04) mg/dL Estimated GFR (>60) mL/min BUN/Creatinine Ratio (6-22) Glucose (80-110) mg/dL Lactate 1.1 (0.7-2.1) mmol/L Calcium (8.4-10.2) mg/dL Magnesium (1.6-2.3) mg/dL Total Bilirubin (0.2-1.3) mg/dL AST (14-36) IU/L ALT (<35) IU/L Alkaline Phosphatase (38-126) U/L Total Creatine Kinase (30-135) U/L CK-MB (CK-2) (<2.37) ng/mL CK-MB (CK-2) Rel Index (1.5-5.0) % Troponin I (0.01-0.034) ng/mL Total Protein (6.3-8.2) g/dL Albumin (3.5-5.0) g/dL Globulin (1.7-4.1) g/dL Albumin/Globulin Ratio (1.0-2.8) Amylase (30-110) U/L Lipase (23-300) U/L Procalcitonin 1.04 H (<0.5) ng/mL Urine RBC (0-5/HPF) Urine WBC (0-5/HPF) Ur Squamous Epith Cells (0-5/HPF) Ur Transition Epith Cell (0-5/HPF) Ur Renal Epithelial Cell (0-1/HPF) Urine Bacteria (None) Hyaline Casts (None) Ur Culture Indicated? Stool Occult Blood (Negative) Stl C. cayetanensis PCR (Not Detect) Stool Rotavirus (PCR) (Not Detect) Stool Adenovirus (PCR) (Not Detect) Stool Astrovirus (PCR) (Not Detect) Stool Cryptosporidium PCR (Not Detect) Stl E.coli Shiga Tox PCR (Not Detect) St Sh/Enteroin Ecoli PCR (Not Detect) Stool E coli O157 PCR Stl Enterotoxigenic E PCR (Not Detect) Stool EPEC (PCR) (Not Detect) Stl E. histolytica PCR (Not Detect) Stool Giardia Lamblia PCR (Not Detect) Stool Sapovirus (PCR) (Not Detect) Stl P. shigelloides PCR (Not Detect) St Y.enterocolitica PCR (Not Detect) Stool Vibrio (PCR) (Not Detect) Stl Vibrio cholerae PCR (Not Detect) Stl Enteroaggr Ecoli PCR (Not Detect) Stl Norovirus GI/GII PCR (Not Detect) Campylobacter (PCR) (Not Detect) C. difficile Tox (PCR) (Not Detect) COVID-19 PCR Negative (Negative) Salmonella (PCR) (Not Detect) 06/12/20 06/12/20 06/12/20 Range/Units 16:25 16:25 18:36 WBC (4.5-11.0) X10^3/uL RBC (4.0-5.2) X10^6/uL Hgb (12.0-16.0) g/dL Hct (36-46) % MCV (80-100) fL MCH (26-34) PG MCHC (30-36) % RDW (11.6-14.8) % Plt Count (150-400) X10^3/uL Neut % (Auto) (50-75) % Lymph % (Auto) (25-40) % Briscoe % (Auto) (3-14) % Eos % (Auto) (2-4) % Baso % (Auto) (0-2) % Neut # (Auto) (1080-9963) /uL Lymph # (Auto) (0676-7360) /uL Briscoe # (Auto) (0-900) /uL Eos # (Auto) (0-450) /uL Baso # (Auto) (0-100) /uL PT (10.1-12.7) SECONDS INR (0.9-1.3) APTT (26.4-36.2) SECONDS Sodium (137-145) mmol/L Potassium (3.4-5.1) mmol/L Chloride (98-107) mmol/L Carbon Dioxide (22-32) mmol/L BUN (7-17) mg/dL Creatinine (0.52-1.04) mg/dL Estimated GFR (>60) mL/min BUN/Creatinine Ratio (6-22) Glucose (80-110) mg/dL Lactate (0.7-2.1) mmol/L Calcium (8.4-10.2) mg/dL Magnesium (1.6-2.3) mg/dL Total Bilirubin (0.2-1.3) mg/dL AST (14-36) IU/L ALT (<35) IU/L Alkaline Phosphatase (38-126) U/L Total Creatine Kinase (30-135) U/L CK-MB (CK-2) (<2.37) ng/mL CK-MB (CK-2) Rel Index (1.5-5.0) % Troponin I (0.01-0.034) ng/mL Total Protein (6.3-8.2) g/dL Albumin (3.5-5.0) g/dL Globulin (1.7-4.1) g/dL Albumin/Globulin Ratio (1.0-2.8) Amylase (30-110) U/L Lipase (23-300) U/L Procalcitonin (<0.5) ng/mL Urine RBC 1-5/hpf (0-5/HPF) Urine WBC 0-1/hpf (0-5/HPF) Ur Squamous Epith Cells 1-5 /hpf (0-5/HPF) Ur Transition Epith Cell 0-1/hpf (0-5/HPF) Ur Renal Epithelial Cell 0-1/hpf (0-1/HPF) Urine Bacteria None seen (None) Hyaline Casts 1-5/lpf (None) Ur Culture Indicated? Cult not indicated Stool Occult Blood Positive H (Negative) Stl C. cayetanensis PCR Not detected (Not Detect) Stool Rotavirus (PCR) Not detected (Not Detect) Stool Adenovirus (PCR) Not detected (Not Detect) Stool Astrovirus (PCR) Not detected (Not Detect) Stool Cryptosporidium PCR Not detected (Not Detect) Stl E.coli Shiga Tox PCR Not detected (Not Detect) St Sh/Enteroin Ecoli PCR Not detected (Not Detect) Stool E coli O157 PCR Not Reportable Stl Enterotoxigenic E PCR Not detected (Not Detect) Stool EPEC (PCR) Not detected (Not Detect) Stl E. histolytica PCR Not detected (Not Detect) Stool Giardia Lamblia PCR Not detected (Not Detect) Stool Sapovirus (PCR) Not detected (Not Detect) Stl P. shigelloides PCR Not detected (Not Detect) St Y.enterocolitica PCR Not detected (Not Detect) Stool Vibrio (PCR) Not detected (Not Detect) Stl Vibrio cholerae PCR Not detected (Not Detect) Stl Enteroaggr Ecoli PCR Not detected (Not Detect) Stl Norovirus GI/GII PCR Not detected (Not Detect) Campylobacter (PCR) Not detected (Not Detect) C. difficile Tox (PCR) Not detected (Not Detect) COVID-19 PCR (Negative) Salmonella (PCR) Not detected (Not Detect) Urine Dip Bedside Urine Glucose Negative Bedside Urine Bilirubin - Negative Bedside Urine Ketone - Negative Urine Specific [place] 1.015 Bedside Urine Occult Blood + Bedside Urine pH 5.0 Bedside Urine Protein +/- 15 Bedside Urine Urobilinogen +/- 1mg Bedside Urine Nitrite - Negative Bedside Urine Leukocytes - Negative Esterase Discharge Plan Departure Patient Disposition: Home Clinical Impression: Dehydration Diarrhea Qualifiers: Diarrhea type: unspecified type Qualified Code(s): R19.7 - Diarrhea, unspe cified Discharge Date/Time: 06/12/20 21:37 Instructions: Diarrhea (Alternative Therapy), DI for Dehydration -- Adult, DI for Diarrhea and Traveler's Diarrhea -- Adult Activity Restrictions/Additional Instructions: Thank you for trusting us with your care today As discussed, we did a plethora of testing and imaging on you today. Your coronavirus test came back negative. Please remember that we gave you your diltiazem this evening. Your GI panel came back negative, indicating no evidence of a C diff, E coli, etc Your CT scan came back with no acute findings some nonspecific bowel wall thickening. Please follow-up with Dr. Rico in the next 48-72 hours. You would likely benefit from a colonoscopy. [facility] In the meantime I suggest a very light diet. Do not eat spicy foods, deep fried fatty foods, fatty foods citrus etcetera. Please come back to the emergency department for any acute concerns. Prescriptions: New ondansetron 4 mg tablet,disintegrating 4 mg PO Q6H PRN (Reason: nausea and vomiting) Qty: 20 RF: 0 No Action cranberry 1 cap PO BID Qty: 0 RF: 0 multivitamin Tablet 1 tab PO DAILY Qty: 0 RF: 0 Probiotic 1 cap PO DAILY Qty: 0 RF: 0 loperamide [Imodium A-D] 2 mg Capsule 2 - 16 mg PO BID Qty: 0 RF: 0 cholecalciferol (vitamin D3) [Vitamin D3] 2,000 unit Capsule 5,000 units PO DAILY Qty: 0 RF: 0 sulfasalazine 500 MG tablet 1,500 mg PO BID Qty: 0 RF: 0 leflunomide 20 MG tablet 20 mg PO QDAY Qty: 0 RF: 0 losartan 100 mg tablet 100 mg PO DAILY Qty: 90 RF: 0 (DME) blood-glucose meter Kit See Rx Instructions .ROUTE .MEDSUPPLY Qty: 1 RF: 0 metoprolol succinate 50 mg tablet extended release 24 hr 50 mg PO BID Qty: 60 RF: 5 metformin [Glucophage XR] 500 mg tablet extended release 24 hr 500 mg PO BID Qty: 60 RF: 5 ciprofloxacin HCl [Cipro] 500 mg tablet 500 mg PO BEDTIME Qty: 90 RF: 1 gabapentin 300 mg capsule 300 mg PO BEDTIME RF: 0 trazodone 50 mg tablet 50 mg PO BEDTIME PRN (Reason: insomnia) Qty: 30 RF: 5 glipizide 10 mg tablet 5 mg PO BID Qty: 90 RF: 1 levothyroxine [Synthroid] 75 mcg tablet 75 mcg PO DAILY Qty: 90 RF: 0 diazepam 5 mg tablet See Rx Instructions .ROUTE .COMPLEX Qty: 60 RF: 0 (DME) glucose test strips Qty: 100 RF: 3 oxybutynin chloride 5 mg tablet See Rx Instructions .ROUTE .COMPLEX Qty: 180 RF: 1 omeprazole 20 mg capsule,delayed release(DR/EC) See Rx Instructions .ROUTE .COMPLEX Qty: 90 RF: 1 fenofibrate 160 mg tablet See Rx Instructions .ROUTE .COMPLEX Qty: 90 RF: 1 atorvastatin 10 mg tablet See Rx Instructions .ROUTE .COMPLEX Qty: 90 RF: 1 sodium,potassium,mag sulfates 17.5-3.13-1.6 gram recon soln 177 ml PO DAILY Qty: 354 RF: 0 Xeljanz XR 11 mg tablet extended release 24 hr 11 mg PO DAILY RF: 0 diphenoxylate-atropine [Lomotil] 2.5-0.025 mg tablet 1 tab PO QID PRN (Reason: diarrhea) Qty: 20 RF: 0 acetaminophen [Tylenol Arthritis Pain] 650 mg Tablet Extended Release 1,300 mg PO Q12H PRN (Reason: Pain) RF: 0 cyclobenzaprine 10 mg tablet 10 mg PO BID RF: 0 albuterol sulfate [ProAir HFA] 90 mcg/actuation HFA aerosol inhaler 2 puff INHALATION QID PRN (Reason: Shortness Of Breath) RF: 0 *B-D 3ML SYRINGE 1 SYR 1 ea miscellaneous SEE INSTRUCTIONS RF: 0 nystatin 30 GM cream 1 raymond Topical DAILY RF: 0 aspirin 325 mg tablet,delayed release (DR/EC) 81 mg PO DAILY RF: 0 oxycodone 5 mg tablet 5 mg PO Q8H PRN (Reason: pain) Qty: 30 RF: 0 Referrals: Jaspal Rico DO [Primary Care Provider] -
[2020-06-12 14:38] LABS: Troponin I < 0.012 ng/mL (0.01-0.034)
[2020-06-12 14:44] LABS: Procalcitonin 1.04 ng/mL (<0.5)
[2020-06-12 14:54] LABS: CKMB % Relative Index 1.1 % (1.5-5.0); Creatine Kinase MB 2.44 ng/mL (<2.37)
[2020-06-12 15:38] LABS: COVID19 -Nasal RAPID Negative (Negative)
[2020-06-12] MEDS: diphenhydrAMINE 50 MG/ML VIAL 25 MG IV (16:35)
[2020-06-12] MEDS: methylPREDNISolone 125 MG/2 ML VIAL IV (16:41)
--- NOTE | 2020-06-12 16:55 | DI.CT.S_ITS ---
PROCEDURE: CT ABDOMEN PELVIS W CON INDICATIONS: abd pain, fever TECHNIQUE: After the administration of intravenous contrast, 5 mm thick sections acquired from the diaphragm to the symphysis. 5 mm coronal and sagittal reformats were acquired. For radiation dose reduction, the following was used: automated exposure control, adjustment of mA and/or kV according to patient size. COMPARISON: [facility], CT, CT ABDOMEN PELVIS WITHOUT CONTRAST, 02/15/2018, 12:18. FINDINGS: Image quality: Excellent. ABDOMEN: Lung bases: Lung bases are clear. Heart size is normal. Solid organs: A coarse calcification is seen at the dome of the right hepatic lobe. Liver is normal in size and enhancement. Gallbladder appears normal. Biliary system is non dilated. There is diffuse fatty infiltration of the pancreas. Spleen is normal in size and enhancement. No adrenal nodules. Kidneys demonstrate normal size and enhancement, without hydronephrosis. A 3 millimeter nonobstructing calculus is seen in the interpolar region of the right kidney. An additional punctate 2 millimeter calculus is seen in the superior pole of the right kidney is also nonobstructing. Chronic perinephric stranding is seen that has not significantly changed when compared to the prior CT from 02/15/2018. Peritoneum and bowel: Postsurgical changes are seen from partial colectomy. There is marked bowel wall thickening within the distal portion of the ileum proximal to the anastomosis. There are no signs of small bowel obstruction. There is no ascites or pneumoperitoneum. Nodes and vessels: No retroperitoneal or mesenteric adenopathy by size criteria. Aorta and inferior vena cava are normal in size. Nonobstructing Miscellaneous: No ventral hernias. PELVIS: Genitourinary: Bladder wall thickness is normal. A 2 centimeter hypodense ovoid lesion in the left perineal region is most likely a Bartholin's gland cyst. Nonspecific calcifications are seen in the right adnexa that do not appear significantly changed when compared to the prior CT from 2018. Miscellaneous: No inguinal hernias or adenopathy. Bones: Postsurgical changes are seen from posterior lumbar fusion extending from the level of L2 through L5, which has been extended when compared to the prior CT. Multilevel degenerative changes are seen. IMPRESSION: 1. Postsurgical changes from partial right colectomy. There is bowel wall thickening in the distal ileum proximal to the anastomosis compatible with a nonspecific ileitis. There are no signs of small bowel obstruction. 2. Non-obstructing 2-3 mm calculi in the right kidney. No hydronephrosis. Dictated by: Wilfred Tadeo M.D. on 06/12/2020 at 18:04 Approved by: Wilfred Tadeo M.D. on 06/12/2020 at 18:14
[2020-06-12 18:14] LABS: Campylobacter Not Detected (Not Detect); Clostridium difficile toxin AB Not Detected (Not Detect); Enteroaggregative E.coli Not Detected (Not Detect); Enteropathogenic E.coli Not Detected (Not Detect); Enterotoxigenic E.coli It/st Not Detected (Not Detect); Plesiomonsa shigelloides Not Detected (Not Detect); Salmonella Not Detected (Not Detect); Shiga-like toxin-prod E.coli Not Detected (Not Detect); Vibrio Not Detected (Not Detect); Vibrio cholerae Not Detected (Not Detect); Yersinia enterocolitica Not Detected (Not Detect)
[2020-06-12 18:15] LABS: Adenovirus F 40/41 Not Detected (Not Detect); Astrovirus Not Detected (Not Detect); Cryptosporidium Not Detected (Not Detect); Cyclospora cayetanensis Not Detected (Not Detect); Entamoeba histolytica Not Detected (Not Detect); Giardia lamblia Not Detected (Not Detect); Norovirus GI/GII Not Detected (Not Detect); Rotavirus A Not Detected (Not Detect); Sample 1 Time 1625; Sapovirus Not Detected (Not Detect); Shigella/Enteroinvasive E.coli Not Detected (Not Detect)
[2020-06-12 18:16] LABS: Occult Blood 1 Positive (Negative)
[2020-06-12] MEDS: SODIUM CHLORIDE 0.9% 1,000 ML 250 ML IV (18:42)
[2020-06-12] MEDS: MAGNESIUM OXIDE 400 MG TABLET PO (19:37)
--- NOTE | 2020-06-12 20:14 | PC.NURSE ---
pt had hr that increased to 140s practioner at bedside for eval pt aa0x3 during even denied distress. pt states unable to tolorate po intake of cardiac meds for several days
[2020-06-12] MEDS: dilTIAZem CD 240 MG CAP PO (20:26)
--- NOTE | 2020-06-12 20:29 | PC.NURSE ---
pt medicated as per practioner order
--- NOTE | 2020-06-12 21:28 | PC.NURSE ---
iv site removed
[2020-06-12 21:36] LABS: Bacteria Urine None Seen
[2020-06-12 21:43] LABS: Culture Indicated Urine Cult Not Indicated; Hyaline Casts Urine 1-5/LPF; RBC Urine 1-5/HPF (0-5/HPF); Renal Epithelial Cells Urine 0-1/HPF (0-1/HPF); Squamous Epithelial Cell Urine 1-5 /HPF (0-5/HPF); Transitional Epi Cells Urine 0-1/HPF (0-5/HPF); WBC Urine 0-1/HPF (0-5/HPF)
== END 2020-06-12 21:37 | disposition home or self-care (01) ==
PROVIDERS: Emergency Provider Nurse Practitioner Family; PCP Family Medicine
DX: E86.0 Dehydration (principal); R19.7 Diarrhea, unspecified; R50.9 Fever, unspecified; R07.9 Chest pain, unspecified; R10.9 Unspecified abdominal pain; R00.0 Tachycardia, unspecified; R79.89 Other specified abnormal findings of blood chemistry
CPT/HCPCS: 36415; 74022; 74177; 80053; 81003; 81015; 82150; 82270; 82550; 82553; 83605; 83690; 83735; 84145; 84484; 85025; 85610; 85730; 87040; 87507; 87635; 93005; 96361; 96374; 96375; 99284; J1200; J2405; J2930; Q9967

== ENCOUNTER → 2020-06-22 15:06 | Outpatient (CLI) | payer OTHER, SELFPAY ==
[2019-12-05 17:36] VITALS: BMI 39.0
[2020-06-23 19:56] LABS: COVID19 Sendout Not Detected (Not Detect)
== END ==
PROVIDERS: PCP Family Medicine; Visit Provider Physician Assistant
DX: Z11.59 Encounter for screening for other viral diseases (principal)
CPT/HCPCS: 87635

== ENCOUNTER 2020-06-25 13:20 | Day surgery (SDC) | payer OTHER, MEDICARE, SELFPAY ==
[2019-12-05 17:36] VITALS: BMI 39.0
--- NOTE | 2020-06-25 14:44 | SUR.PREOP ---
was admitting pt and she stated that she was having chest pain, stated it felt like someone was sitting on her chest. auscultated pt and she had a regular heartbeat with ocassional skipped heartbeats. put pt on 3 lead electrodes, per Crystal VALLADARES, appears to be NSR with one PVC seen. spoke with Dr Tong, he states this is an elective procedure, pt needs to go to ER. Informed pt of trip to ER, she became tearful. Pt transferred to ER via stretcher. and son followed. Report called to jalen in ED, pt sent to room 2. Pt also stated that she has not taking most of her meds since 06/03/20. home med rec completed.
== END 2020-06-25 14:40 | disposition home or self-care (01) ==
PROVIDERS: PCP Family Medicine; Referring Provider Surgery; Visit Provider Surgery
PROC: 0DJD8ZZ Inspection of Lower Intestinal Tract, Via Natural or Artificial Opening Endoscopic (ICD-10-PCS; CPT 45378; principal; 2020-06-25 14:30)

== ENCOUNTER 2020-06-25 14:38 | Observation (INO) | payer OTHER, SELFPAY ==
[2019-12-05 17:36] VITALS: BMI 39.0
[2020-06-25] VITALS (26 sets, daily range): BP systolic 126–183; BP diastolic 59–105; PULSE 72–129; RESP 11–27; TEMP 36.8; O2SAT 97–99; BMI 34.7
--- NOTE | 2020-06-25 | DI.NM.S_ITS ---
PROCEDURE: NM BROOKE PERF SPECT R&S PHARM Rest and pharmacological stress myocardial perfusion SPECT with gated imaging and ejection fraction RADIOPHARMACEUTICAL: 11.1 mCi Tc-99m tetrafosmin IV at rest and 23.7 mCi Tc-99m tetrafosmin IV at peak effect of pharmacological stress. Zma-syc-pjnejiev was performed. INDICATIONS: Chest pain TECHNIQUE: Radiopharmaceutical was injected at peak stress test, and also at rest. SPECT images were obtained. SPECT myocardial perfusion images were displayed in short axis, horizontal long axis, and vertical long axis views. Gated images were reviewed using [employer] software. COMPARISON: None. CARDIAC STRESS: A pharmacologic stress test was performed under the supervision of an attending staff, using an infusion of Lexiscan . Hemodynamic data: There is normal blood pressure and heart rate response to pharmacologic stress. Symptoms: The patient had 2/10 chest pain before injection which increased to 4/10 after injection. Aminophylline: Not used. EKG: No diagnostic changes of ischemia; there was isolated T wave inversion I lead III; no ectopy. FINDINGS: Raw data: There is good myocardial uptake of radiotracer. No significant motion artifacts. Elat-ix-szias ratio is 0.30 (normal is less than 0.38 for tetrafosmin tracer). Left ventricle function: Gated images demonstrate normal left ventricular wall thickening. No segmental wall motion abnormalities. No transient ischemic dilation; TID is 1.05 (normal less than 1.3). Left ventricle resting end diastolic volume is 49 mL. Left ventricle stress ejection fraction is >75% ; normal range is above 45%. Myocardial perfusion: There is a small, mild anteroapical defect which is present at rest and stress, appearing more significant on post stress images. There is also a small, mild inferolateral defect which is similar on both rest and stress images. IMPRESSION: -Equivocal study with small scars versus artifact. -Both defects are fixed with no reversible ischemia. However, there is significant subdiaphragmatic attenuation and no prone images could be performed, given patient's physical imitation, to correct for this attenuation. There is no clear wall motion abnormality with these segments. -Discussed with Dr. Treviño. Dictated by: Davy Beatty M.D. on 06/26/2020 at 17:00 Approved by: Davy Beatty M.D. on 06/26/2020 at 17:09
--- NOTE | 2020-06-25 14:44 | DI.RAD.S_ITS ---
PROCEDURE: XR CHEST 1V INDICATIONS: chest pain TECHNIQUE: One view of the chest was acquired. COMPARISON: [facility], CR, XR CHEST 1V, 10/20/2019, 11:22. FINDINGS: Surgical changes and devices: None. Lungs and pleura: Lungs are clear. No pleural effusions or pneumothorax. Mediastinum: Mediastinal contours appear normal. Heart size is normal. Bones and chest wall: No suspicious bony lesions. Overlying soft tissues appear unremarkable. IMPRESSION: No acute cardiopulmonary disease process. Dictated by: Sindi Rahman MD, PhD on 06/25/2020 at 15:33 Approved by: Sindi Rahman MD, PhD on 06/25/2020 at 15:34
--- NOTE | 2020-06-25 14:51 | ED.CHESTPAIN ---
HPI - Chest Pain General Chief Complaint: Chest Pain Stated Complaint: Chest Pain Time Seen by Provider: 06/25/20 14:42 Source: patient, old records reviewed and other Limitations: no limitations History of Present Illness HPI narrative: Patient is a 74-year-old female who presents from PACU with chest pain. She was scheduled today to have a colonoscopy. She has been having 15 episodes of diarrhea daily since June 03 with no explanation. While in the PACU she started having some chest heaviness and was immediately transferred to the emergency department for further evaluation. She says her chest heaviness has resided some. Now she is quite upset and tearful that she is not getting or colonoscopy. She was expecting some answers today. She denies any shortness of breath. She does feel like her heart is skipping a beat some. MD complaint: chest pain Quality: heaviness Relieving factors: nothing Exacerbating factors: nothing Related Data Home Medications Medication Instructions Recorded Confirmed cranberry 1 cap PO BID #0 10/04/11 06/25/20 multivitamin 1 tab PO DAILY #0 10/04/11 06/25/20 Probiotic 1 cap PO DAILY #0 01/15/13 06/25/20 cholecalciferol (vitamin D3) 5,000 units PO DAILY #0 07/04/17 06/25/20 [Vitamin D3] leflunomide 20 mg PO QDAY #0 07/04/17 06/25/20 loperamide [Imodium A-D] 2 - 16 mg PO BID #0 07/04/17 06/25/20 sulfasalazine 1,500 mg PO BID #0 07/04/17 06/25/20 *B-D 3ML SYRINGE 1 ea MISCELLANEOUS SEE INSTRUCTIONS 05/28/19 06/16/20 tofacitinib 11 mg tablet,extended 11 mg PO DAILY 08/28/19 06/25/20 release 24 hr acetaminophen [Tylenol Arthritis 1,300 mg PO Q12H PRN 10/10/19 06/25/20 Pain] albuterol sulfate [ProAir HFA] 2 puff INHALATION QID PRN 10/10/19 06/25/20 cyclobenzaprine 10 mg PO BID 10/10/19 06/25/20 aspirin 81 mg PO DAILY 12/05/19 06/25/20 gabapentin 300 mg capsule 300 mg PO BEDTIME cap 02/05/20 06/25/20 diltiazem HCl [Cartia XT] 240 mg PO DAILY 06/25/20 06/25/20 Previous Rx's Medication Instructions Recorded losartan 100 mg tablet 100 mg PO DAILY #90 tab 07/15/19 blood-glucose meter #1 each 10/11/19 metformin 500 mg tablet,extended 500 mg PO BID #60 tab 12/19/19 release 24 hr ciprofloxacin HCl 500 mg tablet 500 mg PO BEDTIME #90 tab 01/15/20 glipizide 10 mg tablet 5 mg PO BID #90 tab 02/05/20 trazodone 50 mg tablet 50 mg PO BEDTIME PRN #30 tab 02/05/20 levothyroxine 75 mcg tablet 75 mcg PO DAILY #90 tab 04/01/20 diazepam 5 mg tablet See Rx Instructions .ROUTE 04/13/20 .COMPLEX #60 tab glucose test strips #100 each 05/27/20 atorvastatin 10 mg tablet See Rx Instructions .ROUTE 06/02/20 .COMPLEX #90 tab fenofibrate 160 mg tablet See Rx Instructions .ROUTE 06/02/20 .COMPLEX #90 tab omeprazole 20 mg capsule,delayed See Rx Instructions .ROUTE 06/02/20 release .COMPLEX #90 cap oxybutynin chloride 5 mg tablet See Rx Instructions .ROUTE 06/02/20 .COMPLEX #180 tab diphenoxylate-atropine 2.5 1 tab PO QID PRN #20 tab 06/22/20 mg-0.025 mg tablet ondansetron 4 mg disintegrating 4 mg PO Q6H PRN #20 tab 06/22/20 tablet nystatin 100,000 unit/gram topical 1 applictn TOP DAILY #15 gram 06/25/20 powder Allergies Allergy/AdvReac Type Severity Reaction Status Date / Time Iodine and Iodide Containing Allergy Severe Anaphylaxis Verified 06/25/20 14:44 Produc povidone-iodine Allergy Severe Anaphylaxis Verified 06/25/20 14:44 [From Betadine] shellfish derived Allergy Severe Anaphylaxis Verified 06/25/20 14:44 soap [From Betadine] Allergy Severe Anaphylaxis Verified 06/25/20 14:44 tramadol AdvReac Severe Vomiting Verified 06/25/20 14:44 Penicillins AdvReac Unknown Family has Verified 06/25/20 14:44 had issues with penicillin All [employer] Allergy Severe Anaphylaxis Uncoded 06/22/20 15:57 FISH PROTEIN Allergy Severe Anaphylaxis Uncoded 06/22/20 15:57 Review of Systems Review of Systems Narrative: GENERAL: Denies chills, fatigue, malaise, fever, sweats, travel HEENT: Denies sinus pain, ear pain, sore throat, difficulty swallowing, neck pain RESPIRATORY: Denies dyspnea, cough, wheezing, hemoptysis, sputum. CARDIOVASCULAR: See HPI GASTROINTESTINAL: D+ diarrhea see HPI : Denies dysuria, frequency, incontinence, hematuria, urinary retention, flank pain. MUSCULOSKELETAL: Denies weakness, joint pain, or bony pain SKIN: No rash, no erythema, no pruritus NEUROLOGIC: Denies weakness, dizziness, headache, numbness, change in speech, confusion PSYCHIATRIC: No concerning psychosocial issues. 12 point review of systems is negative except for those stated above and HPI Patient History Medical History (Updated 06/25/20 @ 19:33 by Evelyn Duran DO) Anxiety (Acute) Anxiety disorder due to general medical condition (Acute) Back pain with history of spinal surgery (Acute) BCC (basal cell carcinoma) (Acute) Carpal tunnel syndrome (Resolved Unknown) Chickenpox (Resolved Unknown) Chronic back pain (Chronic Unknown) Chronic diarrhea (Acute) Chronic pain (Acute) Colon polyps (Resolved Unknown) Degenerative disc disease, lumbar (Acute) Delayed surgical wound healing (Acute 10/18/19) Depression (Acute) Easy bruisability (Acute) Excessive cerumen in right ear canal (Acute) Glaucoma (Acute) Hyperlipemia (Chronic Unknown) Hypertension (Chronic Unknown) Hypoglycemia associated with type 2 diabetes mellitus (Acute) Hypothyroidism (Chronic Unknown) Kidney disease (Chronic Unknown) Measles (Resolved Unknown) Migraines (Chronic Unknown) Mumps (Resolved Unknown) Neuropathy (Chronic Unknown) Rheumatoid arthritis (Chronic Unknown) Segmental and somatic dysfunction of rib cage (Acute) Skin cancer (Resolved Unknown) Skin lesion of left leg (Acute) Surgical History H/O colectomy (Acute ~2016) History of arthroscopy of right shoulder (Resolved 07/2012) History of carpal tunnel surgery (Resolved 1981) History of lumbar surgery (Resolved Unknown) History of ovarian cystectomy (Acute ~1974) Hx of appendectomy (Resolved 03/2017) Hx of bilateral cataract extraction (Acute) Hx of cholecystectomy (Resolved 1983) Hx of eye surgery (Acute) Hx of hernia repair (Resolved 04/2011) Hx of laparoscopy (Resolved 03/2017) Hx of lithotripsy (Resolved ~03/2017) Hx of tubal ligation (Resolved 1976) S/P lumbar fusion (Acute 10/18/19) Family History Father Diabetes mellitus Mother Mental health problem Sister Cancer Brother No problems noted. Social History household members: spouse and children Smoking Status: Never smoker alcohol intake: current Smoking Status: Never smoker alcohol intake frequency: holidays/special occasions only Substance Use Type: does not use Exam Initial Vital Signs Initial Vital Signs: Vital Signs Temperature 98.2 F 06/25/20 14:40 Pulse Rate 75 06/25/20 14:40 Respiratory Rate 14 06/25/20 14:40 Blood Pressure 127/105 H 06/25/20 14:40 Pulse Oximetry 98 06/25/20 14:40 GENERAL: Tearful alert female and in no acute distress. HEENT: Head atraumatic,EOMI, pupils reactive, face symmetric, moist mucous membranes CARDIOVASCULAR: Regular rate and rhythm without murmurs, rubs or gallops. RESPIRATORY: Breath sounds equal bilaterally, no wheezes rales or rhonchi. ABDOMEN: Soft, nontender. Normoactive bowel sounds all 4 quadrants. No guarding or rebound. : No CVA tenderness EXTREMITIES: Normal range of motion, no clubbing or edema. Neurovascularly intact NEUROLOGICAL: Alert and oriented x4.Normal gait and speech. SKIN: Warm, dry, no laceration, no petechiae, no rashes or lesions. Course Orders Ordered: ED Orders 06/25/20 14:39 EKG-12 Lead Stat 06/25/20 14:44 XR chest 1V Stat 06/25/20 14:56 Complete Blood Count AUTO DIFF Stat Comprehensive Metabolic Panel Stat Lipase Stat Partial Thromboplastin Time Stat Prothrombin Time INR Stat Troponin & CK Cardiac Panel Stat 06/25/20 17:49 EKG-12 Lead Routine 06/25/20 17:57 Troponin I Stat Discontinued Medications Potassium Chloride 40 meq/ (Sodium Chloride) 520 mls @ 130 mls/hr IV NOW ONE Stop: 08/27/20 19:23 Last Admin: 06/25/20 15:30 Dose: 130 mls/hr Documented by: CHAYITO Cosigned by: ESTER Nitroglycerin (Nitrostat) 0.4 mg SL NOW ONE Stop: 06/25/20 14:59 Last Admin: 06/25/20 15:02 Dose: 0.4 mg Documented by: CHAYITO Nitroglycerin (Nitrostat) 0.4 mg SL NOW ONE Stop: 06/25/20 15:14 Last Admin: 06/25/20 15:14 Dose: 0.4 mg Documented by: CHAYITO Vital Signs Vital signs: Vital Signs - 8 hr 06/25/20 14:40 06/25/20 14:41 06/25/20 14:56 Temperature 98.2 F Pulse Rate 122 H 129 H 72 Respiratory Rate 16 24 Blood Pressure 127/105 H Pulse Oximetry 98 98 99 06/25/20 15:00 06/25/20 15:01 06/25/20 15:02 Temperature Pulse Rate 75 78 76 Respiratory Rate 12 15 Blood Pressure 180/77 H 180/77 H Pulse Oximetry 99 99 06/25/20 15:09 06/25/20 15:14 06/25/20 15:23 Temperature Pulse Rate 92 H 81 93 H Respiratory Rate 19 20 Blood Pressure 163/76 H 163/76 H 126/59 L Pulse Oximetry 97 97 06/25/20 15:30 06/25/20 15:31 06/25/20 16:00 Temperature Pulse Rate 79 79 82 Respiratory Rate 11 L 20 23 Blood Pressure 150/64 H Pulse Oximetry 97 98 98 06/25/20 16:01 06/25/20 16:30 06/25/20 17:00 Temperature Pulse Rate 81 91 H 96 H Respiratory Rate 27 H 22 23 Blood Pressure 146/66 H 167/88 H 183/90 H Pulse Oximetry 99 98 98 06/25/20 17:30 06/25/20 17:31 06/25/20 18:00 Temperature Pulse Rate 82 80 83 Respiratory Rate 16 16 18 Blood Pressure 154/67 H Pulse Oximetry 97 97 98 06/25/20 18:01 06/25/20 18:30 06/25/20 18:31 Temperature Pulse Rate 82 98 H 88 Respiratory Rate 17 19 21 Blood Pressure 152/79 H 171/80 H 182/81 H Pulse Oximetry 98 97 97 MDM - Chest Pain Lab Data Attestation: I reviewed the patient's lab results. Result diagrams: 06/25/20 14:56 06/25/20 14:56 Labs: Lab Results 06/25/20 06/25/20 06/25/20 Range/Units 14:56 14:56 14:56 WBC 6.2 (4.5-11.0) X10^3/uL RBC 3.81 L (4.0-5.2) X10^6/uL Hgb 11.8 L (12.0-16.0) g/dL Hct 35.3 L (36-46) % MCV 92.6 (80-100) fL MCH 31.0 (26-34) PG MCHC 33.5 (30-36) % RDW 16.2 H (11.6-14.8) % Plt Count 320 (150-400) X10^3/uL Neut % (Auto) 68.5 (50-75) % Lymph % (Auto) 17.1 L (25-40) % [place] % (Auto) 13.5 (3-14) % Eos % (Auto) 0.6 L (2-4) % Baso % (Auto) 0.3 (0-2) % Neut # (Auto) 4200 (3787-0257) /uL Lymph # (Auto) 1100 (6748-0001) /uL [place] # (Auto) 800 (0-900) /uL Eos # (Auto) 0 (0-450) /uL Baso # (Auto) 0 (0-100) /uL PT 19.5 H (10.1-12.7) SECONDS INR 1.7 H (0.9-1.3) APTT 36 (26.4-36.2) SECONDS Sodium 134 L (137-145) mmol/L Potassium 2.7 L* (3.4-5.1) mmol/L Chloride 99 (98-107) mmol/L Carbon Dioxide 25 (22-32) mmol/L BUN 20 H (7-17) mg/dL Creatinine 1.64 H (0.52-1.04) mg/dL Estimated GFR 30.8 L (>60) mL/min BUN/Creatinine Ratio 12.2 (6-22) Glucose 152 H (80-110) mg/dL Calcium 8.2 L (8.4-10.2) mg/dL Total Bilirubin 0.6 (0.2-1.3) mg/dL AST 108 H (14-36) IU/L ALT 55 H (<35) IU/L Alkaline Phosphatase 83 (38-126) U/L Total Creatine Kinase 161 H (30-135) U/L CK-MB (CK-2) 2.05 (<2.37) ng/mL CK-MB (CK-2) Rel Index 1.3 L (1.5-5.0) % Troponin I 0.026 (0.01-0.034) ng/mL Total Protein 6.0 L (6.3-8.2) g/dL Albumin 3.3 L (3.5-5.0) g/dL Globulin 2.7 (1.7-4.1) g/dL Albumin/Globulin Ratio 1.2 (1.0-2.8) Lipase 77 (23-300) U/L / Range/Units 17:57 WBC (4.5-11.0) X10^3/uL RBC (4.0-5.2) X10^6/uL Hgb (12.0-16.0) g/dL Hct (36-46) % MCV (80-100) fL MCH (26-34) PG MCHC (30-36) % RDW (11.6-14.8) % Plt Count (150-400) X10^3/uL Neut % (Auto) (50-75) % Lymph % (Auto) (25-40) % [place] % (Auto) (3-14) % Eos % (Auto) (2-4) % Baso % (Auto) (0-2) % Neut # (Auto) (9024-2483) /uL Lymph # (Auto) (6492-4348) /uL [place] # (Auto) (0-900) /uL Eos # (Auto) (0-450) /uL Baso # (Auto) (0-100) /uL PT (10.1-12.7) SECONDS INR (0.9-1.3) APTT (26.4-36.2) SECONDS Sodium (137-145) mmol/L Potassium (3.4-5.1) mmol/L Chloride (98-107) mmol/L Carbon Dioxide (22-32) mmol/L BUN (7-17) mg/dL Creatinine (0.52-1.04) mg/dL Estimated GFR (>60) mL/min BUN/Creatinine Ratio (6-22) Glucose (80-110) mg/dL Calcium (8.4-10.2) mg/dL Total Bilirubin (0.2-1.3) mg/dL AST (14-36) IU/L ALT (<35) IU/L Alkaline Phosphatase (38-126) U/L Total Creatine Kinase (30-135) U/L CK-MB (CK-2) (<2.37) ng/mL CK-MB (CK-2) Rel Index (1.5-5.0) % Troponin I 0.020 (0.01-0.034) ng/mL Total Protein (6.3-8.2) g/dL Albumin (3.5-5.0) g/dL Globulin (1.7-4.1) g/dL Albumin/Globulin Ratio (1.0-2.8) Lipase (23-300) U/L Imaging Data Chest x-ray: Radiologist's Impression: PROCEDURE: XR CHEST 1V INDICATIONS: chest pain TECHNIQUE: One view of the chest was acquired. COMPARISON: [facility], , XR CHEST 1V, 10/20/2019, 11:22. FINDINGS: Surgical changes and devices: None. Lungs and pleura: Lungs are clear. No pleural effusions or pneumothorax. Mediastinum: Mediastinal contours appear normal. Heart size is normal. Bones and chest wall: No suspicious bony lesions. Overlying soft tissues appear unremarkable. IMPRESSION: No acute cardiopulmonary disease process. Dictated by: Sindi Rahman MD, PhD on 06/25/2020 at 15:33 Approved by: Sindi Rahman MD, PhD on 06/25/2020 at 15:34 ECG Data Attestation: I personally reviewed and interpreted this ECG as follows: Prior ECG tracings: available for review Interpretation: Normal sinus rhythm rate 78 p.r. interval 157 QRS 90 QTC 430 for PVCs noted no ST changes T-wave inversion noted in lead 3 similar to previous EKG EKG 2. Sinus rhythm rate 82 no changes from prior no PVCs noted MDM Narrative Medical decision making narrative: Patient is found to be hypokalemic likely secondary to multiple episodes of diarrhea daily. She has lost 25 lb. She continues to have intermittent chest discomfort 2-troponins no changes on EKG. She occasionally has some artifact noted on the monitor. She is quite upset about missing her colonoscopy today. I called and spoke with Dr. Tong and he said he recommends rescheduling outpatient follow-up. Was patient continues to have intermittent chest pain and is found to be hypokalemic. At this time will admit for chest pain and hypokalemia [facility] accepts for observation Discharge Plan Departure Patient Disposition: Admitted as Observation Clinical Impression: Hypokalemia, Chest pain Referrals: Jaspal Rico DO [Primary Care Provider] -
[2020-06-25] MEDS: NITROGLYCERIN 0.4 MG SL TAB SL ×2 (15:02→15:14)
[2020-06-25 15:04] LABS: Add Manual Diff / Slide Review NO; Basophils Absolute Auto 0 /uL (0-100); Basophils Percent Auto 0.3 % (0-2); Eosinophils Absolute Auto 0 /uL (0-450); Eosinophils Percent Auto 0.6 % (2-4); Hematocrit 35.3 % (36-46); Hemoglobin 11.8 g/dL (12.0-16.0); Lymphocytes Absolute Auto 1100 /uL (1100-4500); Lymphocytes Percent Auto 17.1 % (25-40); Mean Corpuscular HGB Conc 33.5 % (30-36); Mean Corpuscular Volume 92.6 fL (80-100); Monocytes Absolute Auto 800 /uL (0-900); Monocytes Percent Auto 13.5 % (3-14); Neutrophils Absolute Auto 4200 /uL (1500-7000); Neutrophils Percent Auto 68.5 % (50-75); Platelet Count 320 X10^3/uL (150-400); Red Blood Cell Count 3.81 X10^6/uL (4.0-5.2); Red Cell Distribution Width 16.2 % (11.6-14.8); White Blood Cell Count 6.2 X10^3/uL (4.5-11.0)
--- NOTE | 2020-06-25 15:07 | PC.NURSE ---
patient was in the pacu waiting to have her colonoscopy and she began having heart palpitations and was told by the pacu nurse that she needed to go to the ER. upon triage her heart rate jumped from the 70s top the 150s. She is having chest pressure 4/10.
[2020-06-25 15:11] LABS: INR 1.7 (0.9-1.3); Prothrombin Time 19.5 SECONDS (10.1-12.7)
[2020-06-25 15:13] LABS: PTT Partial Thromboplastin Tim 36 SECONDS (26.4-36.2)
[2020-06-25 15:15] LABS: Alanine Aminotransferase 55 IU/L (<35); Albumin 3.3 g/dL (3.5-5.0); Albumin Globulin Ratio 1.2 (1.0-2.8); Alkaline Phosphatase 83 U/L (38-126); Aspartate Aminotransferase 108 IU/L (14-36); BUN Creatinine Ratio 12.2 (6-22); Bilirubin Total 0.6 mg/dL (0.2-1.3); Blood Urea Nitrogen 20 mg/dL (7-17); Calcium 8.2 mg/dL (8.4-10.2); Carbon Dioxide 25 mmol/L (22-32); Chloride 99 mmol/L (98-107); Creatine Kinase 161 U/L (30-135); Estimated Glomerular Filt Rate 30.8 mL/min (>60); Globulin 2.7 g/dL (1.7-4.1); Glucose 152 mg/dL (80-110); HEMOLYSIS < 15 (0-50); Lipase 77 U/L (23-300); Sodium 134 mmol/L (137-145)
[2020-06-25 15:22] LABS: Potassium 2.7 mmol/L (3.4-5.1)
--- NOTE | 2020-06-25 15:23 | PC.NURSE ---
potassium 2.7, dr brian and félix castelan notified.
[2020-06-25 15:26] LABS: Troponin I 0.026 ng/mL (0.01-0.034)
[2020-06-25 15:30] LABS: CKMB % Relative Index 1.3 % (1.5-5.0); Creatine Kinase MB 2.05 ng/mL (<2.37)
[2020-06-25] MEDS: POTASSIUM CHLORIDE 40 MEQ in SODIUM CHLORIDE 0.9% 500 ML 130 ML IV (15:30)
[2020-06-25 20:34] LABS: COVID19 -Nasal RAPID Negative (Negative)
--- NOTE | 2020-06-25 22:17 | PM.HP.1 ---
History of Present Illness History of Present Illness Date Patient Seen: 06/25/20 Time Patient Seen: 22:00 Chief complaint: Chest Pain Narrative: Shirin Manzanares a 74-year-old patient with a multitude of medical problems was referred to the ED by the OR PACU as she started to develop chest pains just prior to going in for a colonoscopy. She stated that she had experience what she felt was heavy pressure like an elephant was sitting on her chest for that her heart was 200 lb. She was having chest pain as we spoke. Apparently was not bad enough that she was unable to speak but she was definitely uncomfortable. She felt like she was having palpitations and stated that she had a rate of 175 and a systolic in the 200s. She has had nausea and vomiting and diarrhea for the past 4 weeks. She had a partial colectomy, removing 10 in of large and small bowel as well as the cecum in 2016 and has had chronic diarrhea nausea and vomiting since. She has lost 25 lb. On June 03 she was seen at Dr. Galvin office who put her on a brat diet. Because she is unable to keep anything down, she stopped all her medications with the exception of her heart medications. She denies fevers sweats or chills but does endorse the weight loss and poor appetite, she denies shortness of breath cough, she denies difficulty ambulating or upper extremity weakness, she denies any problems with her skin, she does endorse being anxious. States she has going out feet, meaning swelling after eating a meal at a restaurant and that the swelling in her feet make it hard to walk, she does not find it effective to elevate her feet as they just swell up again when she stands up. She underwent back surgery in September of 2019 were she developed narrow complex tachycardia that was converted with IV adenosine and IV diltiazem. They did an echocardiogram at that time which was normal. She sees Dr. Tan, student affairs dean. Patient states that she was referred to general surgery for a ?urgent/emergent colonoscopy? on June 12 and then it was canceled. She would like to have the colonoscopy done while she is here instead of having to go back home, suffer continued nausea and vomiting and diarrhea before having to return back to attempt to have a colonoscopy done again. Patient states is under a lot of stress due to all of her health problems as well as access to in from in [place] from [facility] and having to take care of an adult son with significant cerebral palsy. EKG done in the ED indicated normal sinus rhythm with occasional PVCs. She was given nitroglycerin x2 in the ED and she was also given potassium replacement as she was profoundly hypokalemic with a potassium level 2.7. Patient was afebrile, current blood pressure is 149/85, heart rate 75, respiratory rate of 20, oxygen saturation 98% on room air, she weighs 80 kg with a BMI of 34.7 WBC was 6.2, RBC 3.81, hemoglobin 11.8, hematocrit 35.3, platelet count 320, INR 1.7, sodium 134, potassium has partially corrected to 2.9., chloride 99, bicarb 25, BUN 20, creatinine 1.64 which is close to her baseline, GFR 30.8, blood glucose 152, calcium 8.2, AST 108, ALT 55, total CK 161, CK-MB 1.3, troponin is indeterminate at 0.036, her proBNP is 500, protein 6.0, albumin 3.3, lipase 77, and COVID-19 is negative. Patient History Medical History Anxiety (Acute) Anxiety disorder due to general medical condition (Acute) Back pain with history of spinal surgery (Acute) BCC (basal cell carcinoma) (Acute) Carpal tunnel syndrome (Resolved Unknown) Chickenpox (Resolved Unknown) Chronic back pain (Chronic Unknown) Chronic diarrhea (Acute) Chronic pain (Acute) Colon polyps (Resolved Unknown) Degenerative disc disease, lumbar (Acute) Delayed surgical wound healing (Acute 10/18/19) Depression (Acute) Easy bruisability (Acute) Excessive cerumen in right ear canal (Acute) Glaucoma (Acute) Hyperlipemia (Chronic Unknown) Hypertension (Chronic Unknown) Hypoglycemia associated with type 2 diabetes mellitus (Acute) Hypothyroidism (Chronic Unknown) Kidney disease (Chronic Unknown) Measles (Resolved Unknown) Migraines (Chronic Unknown) Mumps (Resolved Unknown) Neuropathy (Chronic Unknown) Rheumatoid arthritis (Chronic Unknown) Segmental and somatic dysfunction of rib cage (Acute) Skin cancer (Resolved Unknown) Skin lesion of left leg (Acute) Surgical History H/O colectomy (Acute ~2017) History of arthroscopy of right shoulder (Resolved 07/2012) History of carpal tunnel surgery (Resolved 1981) History of lumbar surgery (Resolved Unknown) History of ovarian cystectomy (Acute ~1974) Hx of appendectomy (Resolved 03/2017) Hx of bilateral cataract extraction (Acute) Hx of cholecystectomy (Resolved 1983) Hx of eye surgery (Acute) Hx of hernia repair (Resolved 04/2011) Hx of laparoscopy (Resolved 03/2017) Hx of lithotripsy (Resolved ~03/2017) Hx of tubal ligation (Resolved 1976) S/P lumbar fusion (Acute 10/18/19) Family & Social History Family History Father Diabetes mellitus Mother Mental health problem Sister Cancer Brother No problems noted. Social History: household members spouse,children Prior Living Arrangements House Safety & Behavioral: Feels Safe in Current Yes Environment Been Physically Hurt or No Threatened By a Person Tobacco & Substance use: Smoking Status Never smoker alcohol intake current alcohol intake frequency holiday/special occasion Substance Use Type does not use Meds Home Medications and Allergies Home Medications Medication Instructions Recorded Confirmed Type cranberry 1 cap PO BID #0 10/04/11 06/25/20 History multivitamin 1 tab PO DAILY #0 10/04/11 06/25/20 History Probiotic 1 cap PO DAILY #0 01/15/13 06/25/20 History cholecalciferol (vitamin D3) 5,000 units PO DAILY #0 07/04/17 06/25/20 History [Vitamin D3] leflunomide 20 mg PO QDAY #0 07/04/17 06/25/20 History loperamide [Imodium A-D] 2 - 16 mg PO BID #0 07/04/17 06/25/20 History sulfasalazine 1,500 mg PO BID #0 07/04/17 06/25/20 History losartan 100 mg tablet 100 mg PO DAILY #90 tab 07/15/19 06/25/20 Rx tofacitinib 11 mg tablet,extended 11 mg PO DAILY 08/28/19 06/25/20 History release 24 hr acetaminophen [Tylenol Arthritis 1,300 mg PO Q12H PRN 10/10/19 06/25/20 History Pain] albuterol sulfate [ProAir HFA] 2 puff INHALATION QID PRN 10/10/19 06/25/20 History cyclobenzaprine 10 mg PO BID 10/10/19 06/25/20 History blood-glucose meter #1 each 10/11/19 06/16/20 Rx metformin 500 mg tablet,extended 500 mg PO BID #60 tab 12/19/19 06/25/20 Rx release 24 hr ciprofloxacin HCl 500 mg tablet 500 mg PO BEDTIME #90 tab 01/15/20 06/25/20 Rx gabapentin 300 mg capsule 300 mg PO BEDTIME cap 02/05/20 06/25/20 History glipizide 10 mg tablet 5 mg PO BID #90 tab 02/05/20 06/25/20 Rx trazodone 50 mg tablet 50 mg PO BEDTIME PRN #30 tab 02/05/20 06/25/20 Rx levothyroxine 75 mcg tablet 75 mcg PO DAILY #90 tab 04/01/20 06/25/20 Rx diazepam 5 mg tablet See Rx Instructions .ROUTE 04/13/20 06/25/20 Rx .COMPLEX #60 tab glucose test strips #100 each 05/27/20 06/16/20 Rx atorvastatin 10 mg tablet See Rx Instructions .ROUTE 06/02/20 06/25/20 Rx .COMPLEX #90 tab fenofibrate 160 mg tablet See Rx Instructions .ROUTE 06/02/20 06/25/20 Rx .COMPLEX #90 tab omeprazole 20 mg capsule,delayed See Rx Instructions .ROUTE 06/02/20 06/25/20 Rx release .COMPLEX #90 cap oxybutynin chloride 5 mg tablet See Rx Instructions .ROUTE 06/02/20 06/25/20 Rx .COMPLEX #180 tab diphenoxylate-atropine 2.5 1 tab PO QID PRN #20 tab 06/22/20 06/25/20 Rx mg-0.025 mg tablet ondansetron 4 mg disintegrating 4 mg PO Q6H PRN #20 tab 06/22/20 06/25/20 Rx tablet aspirin [Adult Low Dose Aspirin] 81 mg PO DAILY 06/25/20 06/25/20 History diltiazem HCl [Cartia XT] 240 mg PO DAILY 06/25/20 06/25/20 History nystatin 100,000 unit/gram topical 1 applictn TOP DAILY #15 gram 06/25/20 06/25/20 Rx powder Allergies Allergy/AdvReac Type Severity Reaction Status Date / Time Iodine and Iodide Containing Allergy Severe Anaphylaxis Verified 06/25/20 14:44 Produc povidone-iodine Allergy Severe Anaphylaxis Verified 06/25/20 14:44 [From Betadine] shellfish derived Allergy Severe Anaphylaxis Verified 06/25/20 14:44 soap [From Betadine] Allergy Severe Anaphylaxis Verified 06/25/20 14:44 tramadol AdvReac Severe Vomiting Verified 06/25/20 14:44 Penicillins AdvReac Unknown Family has Verified 06/25/20 14:44 had issues with penicillin All ocean foods Allergy Severe Anaphylaxis Uncoded 06/22/20 15:57 FISH PROTEIN Allergy Severe Anaphylaxis Uncoded 06/22/20 15:57 Review of Systems Review of Systems ROS: Yes All systems reviewed with the patient and are negative except as otherwise documented Exam Vital Signs (past 8 hours): - 06/25/20 14:40 06/25/20 14:41 06/25/20 14:56 Temperature 98.2 F Pulse Rate 122 H 129 H 72 Respiratory Rate 16 24 Blood Pressure 127/105 H Pulse Oximetry 98 98 99 06/25/20 15:00 06/25/20 15:01 06/25/20 15:02 Temperature Pulse Rate 75 78 76 Respiratory Rate 12 15 Blood Pressure 180/77 H 180/77 H Pulse Oximetry 99 99 06/25/20 15:09 06/25/20 15:14 06/25/20 15:23 Temperature Pulse Rate 92 H 81 93 H Respiratory Rate 19 20 Blood Pressure 163/76 H 163/76 H 126/59 L Pulse Oximetry 97 97 06/25/20 15:30 06/25/20 15:31 06/25/20 16:00 Temperature Pulse Rate 79 79 82 Respiratory Rate 11 L 20 23 Blood Pressure 150/64 H Pulse Oximetry 97 98 98 06/25/20 16:01 06/25/20 16:30 06/25/20 17:00 Temperature Pulse Rate 81 91 H 96 H Respiratory Rate 27 H 22 23 Blood Pressure 146/66 H 167/88 H 183/90 H Pulse Oximetry 99 98 98 06/25/20 17:30 06/25/20 17:31 06/25/20 18:00 Temperature Pulse Rate 82 80 83 Respiratory Rate 16 16 18 Blood Pressure 154/67 H Pulse Oximetry 97 97 98 06/25/20 18:01 06/25/20 18:30 06/25/20 18:31 Temperature Pulse Rate 82 98 H 88 Respiratory Rate 17 19 21 Blood Pressure 152/79 H 171/80 H 182/81 H Pulse Oximetry 98 97 97 06/25/20 19:00 06/25/20 19:01 06/25/20 19:30 Temperature Pulse Rate 79 80 79 Respiratory Rate 15 22 20 Blood Pressure 162/70 H Pulse Oximetry 98 98 97 06/25/20 19:31 Temperature Pulse Rate 81 Respiratory Rate Blood Pressure 168/70 H Pulse Oximetry 98 Oxygen Delivery Method Room Air Narrative Exam Narrative: Alert, oriented, well-developed [] y.o. [] fe[]male, NAD HEENT: normocephalic, atraumatic, conjunctiva clear, sclera non-icteric, oral mucosa pink and moist Neck: supple, full ROM, no JVD, trachea is midline Resp: Lungs CTA, non-labored breathing CV: RRR, no murmur or rubs Abd: soft, non-tender, normoactive BTs Skin: no lesions or rashes, dry and intact Neuro: Alert and oriented X 4 w/no focal deficits. Speech clear and coherent. Extremities: trace edema of lower extremities and feet, moves all 4 extremities, is ambulatory, negative Belkis?s sign Psyche: normal mood and affect Objective Labs Result Diagrams: 06/25/20 14:56 06/25/20 23:05 Labs: Laboratory Results - last 24 hr 06/25/20 06/25/20 06/25/20 14:56 14:56 14:56 WBC 6.2 RBC 3.81 L Hgb 11.8 L Hct 35.3 L MCV 92.6 MCH 31.0 MCHC 33.5 RDW 16.2 H Plt Count 320 Neut % (Auto) 68.5 Lymph % (Auto) 17.1 L [place] % (Auto) 13.5 Eos % (Auto) 0.6 L Baso % (Auto) 0.3 Neut # (Auto) 4200 Lymph # (Auto) 1100 [place] # (Auto) 800 Eos # (Auto) 0 Baso # (Auto) 0 PT 19.5 H INR 1.7 H APTT 36 Sodium 134 L Potassium 2.7 L* Chloride 99 Carbon Dioxide 25 BUN 20 H Creatinine 1.64 H Estimated GFR 30.8 L BUN/Creatinine Ratio 12.2 Glucose 152 H Calcium 8.2 L Total Bilirubin 0.6 AST 108 H ALT 55 H Alkaline Phosphatase 83 Total Creatine Kinase 161 H CK-MB (CK-2) 2.05 CK-MB (CK-2) Rel Index 1.3 L Troponin I 0.026 Total Protein 6.0 L Albumin 3.3 L Globulin 2.7 Albumin/Globulin Ratio 1.2 Lipase 77 COVID-19 PCR 06/25/20 06/25/20 17:57 19:16 WBC RBC Hgb Hct MCV MCH MCHC RDW Plt Count Neut % (Auto) Lymph % (Auto) [place] % (Auto) Eos % (Auto) Baso % (Auto) Neut # (Auto) Lymph # (Auto) [place] # (Auto) Eos # (Auto) Baso # (Auto) PT INR APTT Sodium Potassium Chloride Carbon Dioxide BUN Creatinine Estimated GFR BUN/Creatinine Ratio Glucose Calcium Total Bilirubin AST ALT Alkaline Phosphatase Total Creatine Kinase CK-MB (CK-2) CK-MB (CK-2) Rel Index Troponin I 0.020 Total Protein Albumin Globulin Albumin/Globulin Ratio Lipase COVID-19 PCR Negative Assessment & Plan Assessment & Plan narrative: Shirin Manzanares will be observed overnight for a chest pain rule out. Chest pain, acute, present on admission -she received nitroglycerin and morphine for pain -she is written for a nuclear stress test and as well as a echocardiogram -patient's last echocardiogram was in September of last year -after the results, would recommend discussing her case with her student affairs dean, Dr. Tan -continue home doses of losartan 100 mg p.o. daily and diltiazem 240 mg extended release p.o. daily -continue home dose of aspirin 81 mg p.o. daily Acute hypokalemia, present on admission -she did receive a 40 mEq rider in the ED and repeat potassium was partially corrected from 2.7 to 2.9 -She is ordered for KCL 60 mEq IV and 40 mEq p.o. x1, recheck potassium as part of a BMP Elevated liver enzymes, worsening, present on admission -patient has rheumatoid arthritis and has been taking DMARDs including Leflunomide, tofacitinib, and sulfasalazine which may be contributing to both diarrhea and an elevation of her liver enzymes -she is continued on these, but needs to be reviewed again with her mission worker as they may be side effects of her current symptoms Hyperlipidemia, chronic -continue atorvastatin 80 mg p.o. daily -lipid panel is ordered Diabetes type 2 -Oral anti diabetics are being held -Insulin low dose correctional coverage with q.6 hour glucose checks since the patient is not eating History of a colectomy -patient has been taking Cipro 500 mg daily for this since the colectomy and this will be continued -once patient has been cleared cardiac lewis, she would like to have her colonoscopy done, though has been advised this is not the policy to do an outpatient colonoscopy while the patient is in the hospital -Due to ongoing nausea and vomiting, it may be worth discussing with Dr. Tong Hypothyroidism -continue home dose of levothyroxine 75 mcg daily LE swelling, present on admission -She is given a one time dose of IV lasix 20 mg Consults: none Patient is observation status as her stay is not likely to exceed 2 midnights. FEN: IV saline lock, NPO per patients request, BMP and magnesium in the am. VTE prophylaxis: Bilateral SCDs Dispo: Probable discharge to home Code Status: Full code as discussed with patient COVID-19 COVID-19 status: Negative Result date/Date tested (Pos, Neg/Pending): 06/25/20
[2020-06-25 23:18] LABS: HEMOLYSIS < 15 (0-50); Potassium 2.9 mmol/L (3.4-5.1)
[2020-06-25 23:31] LABS: NT-proBNP (BNP-Adult 18+) 500 pg/mL (<125)
[2020-06-26] VITALS (27 sets, daily range): BP systolic 74–150; BP diastolic 39–99; PULSE 68–148; RESP 17–30; TEMP 36.1–36.7; O2SAT 96–98
[2020-06-26 00:29] LABS: Troponin I 0.036 ng/mL (0.01-0.034)
[2020-06-26] MEDS: ATORVASTATIN 10 MG TABLET PO ×2 (00:47→20:56)
[2020-06-26] MEDS: TRAZODONE 50 MG TABLET PO ×2 (00:49→20:58)
[2020-06-26] MEDS: POTASSIUM CHLORIDE 20 MEQ TAB 40 MEQ PO (00:50)
[2020-06-26] MEDS: GABAPENTIN 300 MG CAPSULE PO ×2 (00:55→20:56)
[2020-06-26] MEDS: POTASSIUM CHLORIDE 30 MEQ in SODIUM CHLORIDE 0.9% 250 ML 88.333 ML IV ×2 (00:59→04:40)
[2020-06-26] MEDS: FUROSEMIDE 20 MG/2 ML VIAL IV (02:50)
[2020-06-26 05:59] LABS: Bacteria Urine None Seen
[2020-06-26 06:04] LABS: Appearance Urine UA CLEAR; Bilirubin Urine UA NEGATIVE (NEGATIVE); Color Urine UA YELLOW; Glucose Urine UA NEGATIVE (Negative); Ketones Urine UA NEGATIVE (NEGATIVE); Leukocyte Esterase Urine UA NEGATIVE (NEGATIVE); Nitrite Urine UA NEGATIVE (Negative); Occult Blood Urine UA 1+ (Negative); Protein Urine UA NEGATIVE (Negative); Urobilinogen Urine UA 0.2 E.U./dL (0.2)
[2020-06-26 06:09] LABS: Culture Indicated Urine Cult Not Indicated; RBC Urine 0-1/HPF (0-5/HPF); WBC Urine 0-1/HPF (0-5/HPF)
[2020-06-26] MEDS: LEVOTHYROXINE 75 MCG TABLET PO (06:22)
[2020-06-26 07:16] LABS: Add Manual Diff / Slide Review NO; Basophils Absolute Auto 0 /uL (0-100); Basophils Percent Auto 0.3 % (0-2); Eosinophils Absolute Auto 100 /uL (0-450); Eosinophils Percent Auto 2.3 % (2-4); Hematocrit 31.8 % (36-46); Hemoglobin 10.3 g/dL (12.0-16.0); Lymphocytes Absolute Auto 900 /uL (1100-4500); Lymphocytes Percent Auto 18.4 % (25-40); Mean Corpuscular HGB Conc 32.3 % (30-36); Mean Corpuscular Hemoglobin 30.2 PG (26-34); Mean Corpuscular Volume 93.5 fL (80-100); Monocytes Absolute Auto 800 /uL (0-900); Monocytes Percent Auto 15.8 % (3-14); Neutrophils Absolute Auto 3100 /uL (1500-7000); Neutrophils Percent Auto 63.2 % (50-75); Platelet Count 248 X10^3/uL (150-400); Red Cell Distribution Width 16.5 % (11.6-14.8); White Blood Cell Count 4.8 X10^3/uL (4.5-11.0)
[2020-06-26 07:30] LABS: BUN Creatinine Ratio 13.9 (6-22); Blood Urea Nitrogen 19 mg/dL (7-17); Calcium 7.6 mg/dL (8.4-10.2); Carbon Dioxide 22 mmol/L (22-32); Chloride 107 mmol/L (98-107); Cholesterol 131 mg/dL (140-199); Estimated Glomerular Filt Rate 37.9 mL/min (>60); Glucose 108 mg/dL (80-110); HDL Cholesterol 35 mg/dL (40-60); HEMOLYSIS < 15 (0-50); LDL Cholesterol Calculated 48 mg/dL (<100); Magnesium 1.3 mg/dL (1.6-2.3); Potassium 3.8 mmol/L (3.4-5.1); Sodium 136 mmol/L (137-145); Triglycerides 242 mg/dL (35-150)
[2020-06-26 07:35] LABS: Troponin I 0.029 ng/mL (0.01-0.034)
[2020-06-26] MEDS: NITROGLYCERIN 0.4 MG SL TAB SL ×2 (09:36→15:27)
[2020-06-26] MEDS: MORPHINE 2 MG/ML INJ IV ×2 (09:51→17:52)
--- NOTE | 2020-06-26 10:10 | PC.NURSE ---
Addendum entered by Willy Floyd R.N. 06/26/20 12:38: PATIENT OFF OF UNIT FOR 2CD PART OF STRESS TEST. Original Note: Chest pain- Patient was given injection by nuc med for stress test this morning. Upon assessment she reported continued chest pain described as a heaviness in her chest with a 2/[address] Treviño notified and ordered stat EKG, stat troponin, nitro. Dr assessed EKG result, nitro not effective. notified, given morphine. Pt states heaviness is still there and feels sensation of urge to burp but unable to. Upon further questioning pt. states she has had 2/10 heaviness since admit that has not gone away. Dr. Treviño notified of above. states okay for her to go to stress test. Pt. off unit at 10:12.
[2020-06-26 10:27] LABS: Troponin I 0.024 ng/mL (0.01-0.034)
[2020-06-26] MEDS: sulfaSALAzine 500 MG TABLET 1500 MG PO ×2 (11:36→21:46)
[2020-06-26] MEDS: LEFLUNOMIDE 20 MG TABLET PO (11:38)
[2020-06-26] MEDS: LOSARTAN 50 MG TABLET 100 MG PO (11:38)
[2020-06-26] MEDS: ASPIRIN EC 81 MG TABLET PO (11:38)
[2020-06-26] MEDS: NYSTATIN POWDER 15GM 1 APPLIC TOP (11:39)
[2020-06-26] MEDS: LOPERAMIDE 2 MG CAPSULE 4 MG PO ×2 (11:39→21:51)
[2020-06-26] MEDS: OXYBUTYNIN 5 MG TABLET PO ×2 (11:40→21:47)
[2020-06-26] MEDS: FENOFIBRATE 160 MG TABLET PO (11:48)
--- NOTE | 2020-06-26 13:22 | CM.IDA ---
Addendum entered by HUDSON Leroy 06/27/20 15:43: Patient pleased to be going home today 06.27.20, no needs identified from this HUDSON, patient will be going home w/supportive family and very close outpt f/u recommended. JOLENE Original Note: Initial DCP Assessment Note Patient is a 74 yo female, resident of [place], [place]. Patient presents to ER w/ chest pain as she was being prepped for the OR for scheduled colonoscopy. PCP: Jaspal Rico Payer: [facility] Rere Reviewed chart. Attempted visit this afternoon and patient was off the floor for stress test. According to notes, patient lives on [address] (near [place]) and cares for her adult son who has Cerebral Palsy. Patient admits to staff that she has been under a lot of stress w/trying [place] get [place] to address her multiple co-morbidities. DC is anticipated to be return home w/close outpt f/u but will need to follow closely and will assess needs once patient returns to her room. HUDSON Leroy Discharge Planning/Care Management CM Discharge Assessment Start: 06/26/20 13:18 Freq: Status: Active Protocol: Document 06/26/20 13:18 JOLENE (Rec: 06/26/20 13:22 JOLENE [id number]) Discharge Planning Assessment Assigned Waste/Materials Exchange Specialist HUDSON Rubio DPOA/Assigned Designee Name Khari Manzanares, spouse Contact Information cell [phone] home Advance Directives? Yes Advance Directives on File Yes History Provided By Patient,Family Member,Medical Record Prior Living Arrangements House Household Members spouse,children Type of transporation used prior to Drives own vehicle admit Independent with ADL's Yes Is patient alert and oriented? Yes Caregiver for Another Yes: son has Cerebral Palsy Discharge Plan Home Transportation Arrangement Spouse
[2020-06-26] MEDS: dilTIAZem CD 240 MG CAP PO (15:27)
[2020-06-26] MEDS: MAGNESIUM SULFATE 2 GM/50 ML PIGGYBACK IV (15:44)
--- NOTE | 2020-06-26 15:56 | PC.NURSE ---
Addendum entered by Therese Natarajan R.N. 06/26/20 18:19: Pt took diet without any GI event or worsening cardiac complaints. Continues to c/o chest pain 2-3/10 and was given 2 mg iv morphine to treat. Order for nitroglycerin drip per Dr. Treviño so pt transferred to ICU with supervisor frame assembly, Fior's knowledge and pt consent. Pt transferred to room 227 under the care of Paige VALLADARES. Pt awake, alert, conversant, and involved in care. Spouse and wheelchair bound son accompany pt. Addendum entered by Therese Natarajan R.N. 06/26/20 16:40: Call from MANAGER BILLING pt in rapid afib and this short story writer notes bus driver/monitor shows rate of 147. Dr. Treviño aware and currently in room with pt. Vital signs as per ORDNANCE TRUCK INSTALLATION MECHANIC in progress and stat EKG ordered and R.T. on way. Pt's rate now 99 and 85. BP 150/76. EKG in progress. Dr. Treviño remains with pt and pt's spouse directing care and addressing questions/concerns. Original Note: Pt awake and alert lying in bed with ipad in lap showing this short story writer photos of garden at home. Pt's spouse and son in wheelchair are present in pt's room as well. Pt c/o chest pain 4/10 and was given nitro as per emar. Kvng RNCari, present during this encounter and discusses with Dr. Treviño who does not order EKG. Pt does report improvement in chest pain to 2/10 following nitro SL. Mg rider infusing as ordered to right ac iv site without difficulty.
--- NOTE | 2020-06-26 17:06 | PM.PN.1 ---
Subjective Subjective Date Patient Seen: 06/26/20 Interval history: The patient is a 74-year-old female who was admitted to the hospital for recurrent chest pain. Since admission she has had dull substernal chest pain anywhere between to in 5/10 in intensity. The patient has had some minimal relief with nitroglycerin. She has had minimal relief with morphine. Repeat troponins showed a troponin I of 0.0259 followed by 0.024. Patient had EKG which showed sinus rhythm and no acute ST-T changes. She underwent her stress test. Following the stress test the patient developed rapid onset of atrial fibrillation. Prior to getting the 12 lead EKG she a converted to sinus rhythm. She is quite anxious. She is tearful. She and her would like her to have colonoscopy is there convinced that her colon issues are the cause of her chest pain. Discussed this with Dr. Thorpe and unfortunately they will not perform elective colonoscopy on the weekend. The patient will need to have this done as an outpatient after her chest pain workup has been completed. Exam Vital Signs (past 8 hours): - 06/26/20 09:36 06/26/20 09:50 06/26/20 11:25 Temperature Pulse Rate 74 79 78 Respiratory Rate Blood Pressure 141/64 H 121/68 139/99 H Pulse Oximetry 97 06/26/20 11:38 06/26/20 12:13 06/26/20 15:20 Temperature 97.4 F L 97.0 F L Pulse Rate 78 68 85 Respiratory Rate 19 18 Blood Pressure 139/99 H 131/57 L 131/76 Pulse Oximetry 98 06/26/20 15:27 06/26/20 16:45 Temperature Pulse Rate 85 148 H Respiratory Rate 20 Blood Pressure 131/76 150/76 H Pulse Oximetry 96 Oxygen Delivery Method Room Air Narrative Exam Narrative: Pleasant female in no acute distress Lungs: Clear to auscultation Cardiac exam: Regular rate and rhythm normal S1-S2 Abdomen: Soft nontender nondistended Extremities: 1+ edema Objective Labs Result Diagrams: 06/26/20 06:50 06/26/20 06:50 Labs: Laboratory Results - last 24 hr 06/25/20 06/25/20 06/25/20 17:57 19:16 23:05 WBC RBC Hgb Hct MCV MCH MCHC RDW Plt Count Neut % (Auto) Lymph % (Auto) [place] % (Auto) Eos % (Auto) Baso % (Auto) Neut # (Auto) Lymph # (Auto) [place] # (Auto) Eos # (Auto) Baso # (Auto) Sodium Potassium 2.9 L Chloride Carbon Dioxide BUN Creatinine Estimated GFR BUN/Creatinine Ratio Glucose Calcium Magnesium Troponin I 0.020 NT-Pro-B Natriuret Pep 500 H Triglycerides Cholesterol LDL Cholesterol, Calc HDL Cholesterol Urine Color Urine Appearance Urine pH Ur Specific [place] Urine Protein Urine Glucose (UA) Urine Ketones Urine Occult Blood Urine Nitrate Urine Bilirubin Urine Urobilinogen Ur Leukocyte Esterase Urine RBC Urine WBC Urine Bacteria Ur Culture Indicated? COVID-19 PCR Negative 06/25/20 06/26/20 06/26/20 23:11 05:45 06:50 WBC 4.8 RBC 3.40 L Hgb 10.3 L Hct 31.8 L MCV 93.5 MCH 30.2 MCHC 32.3 RDW 16.5 H Plt Count 248 Neut % (Auto) 63.2 Lymph % (Auto) 18.4 L [place] % (Auto) 15.8 H Eos % (Auto) 2.3 Baso % (Auto) 0.3 Neut # (Auto) 3100 Lymph # (Auto) 900 L [place] # (Auto) 800 Eos # (Auto) 100 Baso # (Auto) 0 Sodium Potassium Chloride Carbon Dioxide BUN Creatinine Estimated GFR BUN/Creatinine Ratio Glucose Calcium Magnesium Troponin I 0.036 H NT-Pro-B Natriuret Pep Triglycerides Cholesterol LDL Cholesterol, Calc HDL Cholesterol Urine Color Yellow Urine Appearance Clear Urine pH 5.0 Ur Specific Ramsay 1.010 Urine Protein Negative Urine Glucose (UA) Negative Urine Ketones Negative Urine Occult Blood 1+ H Urine Nitrate Negative Urine Bilirubin Negative Urine Urobilinogen 0.2 Ur Leukocyte Esterase Negative Urine RBC 0-1/hpf Urine WBC 0-1/hpf Urine Bacteria None seen Ur Culture Indicated? Cult not indicated COVID-19 PCR 06/26/20 06/26/20 06/26/20 06:50 06:50 09:35 WBC RBC Hgb Hct MCV MCH MCHC RDW Plt Count Neut % (Auto) Lymph % (Auto) [place] % (Auto) Eos % (Auto) Baso % (Auto) Neut # (Auto) Lymph # (Auto) [place] # (Auto) Eos # (Auto) Baso # (Auto) Sodium 136 L Potassium 3.8 Chloride 107 Carbon Dioxide 22 BUN 19 H Creatinine 1.37 H Estimated GFR 37.9 L BUN/Creatinine Ratio 13.9 Glucose 108 Calcium 7.6 L Magnesium 1.3 L Troponin I 0.029 0.024 NT-Pro-B Natriuret Pep Triglycerides 242 H Cholesterol 131 L LDL Cholesterol, Calc 48 HDL Cholesterol 35 L Urine Color Urine Appearance Urine pH Ur Specific Rams[place] Urine Protein Urine Glucose (UA) Urine Ketones Urine Occult Blood Urine Nitrate Urine Bilirubin Urine Urobilinogen Ur Leukocyte Esterase Urine RBC Urine WBC Urine Bacteria Ur Culture Indicated? COVID-19 PCR Assessment & Plan Assessment & Plan narrative: Shirin Manzanares will be observed overnight for a chest pain rule out. Chest pain, acute, present on admission -patient underwent a stress test today which showed an abnormal fixed small defect on the able wall, there was also a small area inferiorly which is likely an artifact -patient continues to have persistent chest pain despite medical management. -will start her on IV nitroglycerin, anticipate transfer to [facility] on for possible coronary angiogram -will continue intermittent morphine as needed for pain. Acute hypokalemia, present on admission -improved Elevated liver enzymes, worsening, present on admission -patient has rheumatoid arthritis and has been taking DMARDs including Leflunomide, tofacitinib, and sulfasalazine which may be contributing to both diarrhea and an elevation of her liver enzymes -she is continued on these, but needs to be reviewed again with her fermentation scientist as they may be side effects of her current symptoms Hyperlipidemia, chronic -continue atorvastatin 80 mg p.o. daily -lipid panel is ordered Diabetes type 2 -Oral anti diabetics are being held -Insulin low dose correctional coverage with q.6 hour glucose checks since the patient is not eating History of a colectomy -patient has been taking Cipro 500 mg daily for this since the colectomy and this will be discontinued -once patient has been cleared cardiac lewis, she would like to have her colonoscopy done, though has been advised this is not the policy to do an outpatient colonoscopy while the patient is in the hospital -Due to ongoing nausea and vomiting, it may be worth discussing with Dr. Tong -colonoscopy will defer be deferred until full cardia workup -dietary consultation -calorie clinic -consider PICC line for TPN if the patient is unable to eat Hypothyroidism -continue home dose of levothyroxine 75 mcg daily LE swelling, present on admission -no further Lasix given elevated creatinine Acute renal failure -likely secondary to dehydration -will follow-up labs in the more -no further diuresis
[2020-06-26 18:10] LABS: Troponin I 0.017 ng/mL (0.01-0.034)
[2020-06-26] MEDS: NITROGLYCERIN 50 MG/250 ML INFUS..BTL IV (18:20)
[2020-06-27] VITALS (12 sets, daily range): BP systolic 88–129; BP diastolic 45–63; PULSE 66–94; RESP 12–18; TEMP 35.9–36.7; O2SAT 94–99
--- NOTE | 2020-06-27 | PC.NURSE ---
Nitro was at 10mcg/min at beginning of shift, decrease to 5mcg/min due to low B/P. Pt. so far states that her CP is there rate 1/10, no c/o shortness of breath, 02 2L NC on. Pt. also is laying on her right side with B/P cuff on left arm since IV site is on RAC with Nitro gtt and NS at 21ml/hr. Tele shows SR.
[2020-06-27] MEDS: SODIUM CHLORIDE 0.9% 1,000 ML 75 ML IV (00:57)
[2020-06-27] MEDS: LEVOTHYROXINE 75 MCG TABLET PO (06:06)
[2020-06-27] MEDS: INSULIN ASPART 100 UNIT/ML INSULN PEN SUBCUT ×2 (09:09→12:21)
[2020-06-27] MEDS: LOPERAMIDE 2 MG CAPSULE 4 MG PO (09:10)
[2020-06-27] MEDS: dilTIAZem CD 240 MG CAP PO (09:10)
[2020-06-27] MEDS: ASPIRIN EC 81 MG TABLET PO (09:10)
[2020-06-27] MEDS: LEFLUNOMIDE 20 MG TABLET PO (09:10)
[2020-06-27] MEDS: OXYBUTYNIN 5 MG TABLET PO (09:10)
[2020-06-27] MEDS: sulfaSALAzine 500 MG TABLET 1500 MG PO (09:10)
[2020-06-27] MEDS: FENOFIBRATE 160 MG TABLET PO (09:10)
[2020-06-27] MEDS: NYSTATIN POWDER 15GM 1 APPLIC TOP (09:12)
[2020-06-27] MEDS: LOSARTAN 50 MG TABLET 100 MG PO (09:27)
[2020-06-27] MEDS: MAG HYDROX/ALUMINUM/SIMETH SUS 20 ML, LIDOCAINE VISCOUS 2% 15 ML PO (11:18)
--- NOTE | 2020-06-27 13:24 | P.DS_ITS ---
History of Present Illness History of Present Illness Date Patient Seen: 06/27/20 Chief complaint: Chest Pain Narrative: Shirin Manzanares a 74-year-old patient with a multitude of medical proble ms was referred to the ED by the OR PACU as she started to develop chest pains just prior to going in for a colonoscopy. She stated that she had experience what she felt was heavy pressure like an elephant was sitting on her chest for that her heart was 200 lb. She was having chest pain as we spoke. Apparently was not bad enough that she was unable to speak but she was definitely uncomfortable. She felt like she was having palpitations and stated that she had a rate of 175 and a systolic in the 200s. She has had nausea and vomiting and diarrhea for the past 4 weeks. She had a partial colectomy, removing 10 in of large and small bowel as well as the cecum in 2016 and has had chronic sandeep rrhea nausea and vomiting since. She has lost 25 lb. On June 03 she was seen at Dr. Galvin office who put her on a brat diet. Because she is unable to keep anything down, she stopped all her medications with the exception of her heart medications. She denies fevers sweats or chills but does endorse the weight loss and poor appetite, she denies shortness of breath cough, she denies difficulty ambulating or upper extremity weakness, she denies any problems with her skin, she does endorse being anxious. States she has going out feet, meaning swelling after eating a meal at a restaurant and that the swelling in her feet make it hard to walk, she does not find it effective to elevate her feet as they just swell up again when she stands up. She underwent back surgery in September of 2019 were she developed narrow complex tachycardia that was converted with IV adenosine and IV diltiazem. They did an echocardiogram at that time which was normal. She sees Dr. Tan, core blower. Patient states that she was referred to general surgery for a ?urgent/emergent colonoscopy? on June 12 and then it was canceled. She would like to have the colonoscopy done while she is here instead of having to go back home, suffer continued nausea and vomiting and diarrhea before having to return back to attempt to have a colonoscopy done again. Patient states is under a lot of stress due to all of her health problems as well as access to in from in [facility] and having to take care of an adult son with significant cerebral palsy. EKG done in the ED indicated normal sinus rhythm with occasional PVCs. She was given nitroglycerin x2 in the ED and she was also given potassium replacement as she was profoundly hypokalemic with a potassium level 2.7. Patient was af ebrile, current blood pressure is 149/85, heart rate 75, respiratory rate of 20, oxygen saturation 98% on room air, she weighs 80 kg with a BMI of 34.7 WBC was 6.2, RBC 3.81, hemoglobin 11.8, hematocrit 35.3, platelet count 320, INR 1.7, sodium 134, potassium has partially corrected to 2.9., chloride 99, bicarb 25, BUN 20, creatinine 1.64 which is close to her baseline, GFR 30.8, blood glucose 152, calcium 8.2, AST 108, ALT 55, total CK 161, CK-MB 1.3, troponin is indeterminate at 0.036, her proBNP is 500, protein 6.0, albumin 3.3, lipase 77, and COVID-19 is negative. Discharge Providers Provider Date of admission: 06/25/20 19:45 Discharge Date: 06/27/20 Primary care physician: Jaspal Rico DO Discharge provider: Dinorah Treviño MD Summary Hospital Course Discharge Diagnosis: 1. Chest pain-noncardiac 2. Chronic diarrhea 3. Severe protein calorie malnutrition 4. Rheumatoid arthritis 5. Hypothyroid 6. Type 2 diabetes 7.GERD 8. Hypertension 9. Acute renal failure secondary to dehydration improved Hospital Course: Patient was admitted to the hospital for recurrent chest pain that started as she was awaiting a colonoscopy. The pain continued throughout the hospital stay. Her pain was as low as 2 and as high as 5/10 in intensity. Twelve lead EKGs were obtained which were negative for acute ischemia. The patient had multiple serial cardiac enzymes which were negative as well. Case was discussed with cardiology. She underwent a cardiac echo which showed 2 small non reversible, fixed defects. These were felt to be low risk for cardiac disease. The patient was tried on an IV nitro drip without any resolution of her chest pain. She was given a GI cocktail which did not improve her pain as well. She continued to have multiple loose stools per stools were sent for C difficile which were negative. The patient was felt to be clear for discharge. She will follow-up with Dr. hillman office next week for rescheduling of her colonoscopy. I have asked her to follow-up with Dr. Silvestre de leon as well mimi cooling possible upper endoscopy and or re-evaluation of her diarrhea. What the patient continued to have chest pain it was felt that this was likely noncardiac. Patient did have abrupt onset of atrial fibrillation that spontaneously converted to sinus rhythm. She had no further episodes during her hospital stay She was deemed appropriate for discharge and arrangements were made for her to discharge home. Status at Discharge Cognitive/behavioral status at discharge: oriented Functional status at discharge: independent ambulation Overall status at discharge: patient is back to baseline Time Spent with Patient Time spent: Less than 30 minutes Exam Vital Signs (past 8 hours): - 06/27/20 06:00 06/27/20 07:00 06/27/20 08:00 Temperature 97.3 F L Pulse Rate 66 68 94 H Respiratory Rate 15 12 17 Blood Pressure 107/53 L 119/63 108/51 L Pulse Oximetry 95 99 95 06/27/20 08:54 06/27/20 09:29 06/27/20 12:00 Temperature 98.1 F Pulse Rate 88 73 68 Respiratory Rate 16 18 Blood Pressure 129/60 120/56 L Pulse Oximetry 96 98 Oxygen Delivery Method Nasal Cannula Oxygen Flow Rate 0 Narrative Exam Narrative: Pleasant female resting comfortably in no obvious distress Lungs: Clear to auscultate Cardiac exam regular rate and rhythm normal S1-S2 Abdomen: Soft nontender nondistended Extremities: No edema Objective Labs Result Diagrams: 06/26/20 06:50 06/26/20 06:50 Labs: Laboratory Results - last 24 hr 06/26/20 06/27/20 06/27/20 17:19 01:55 11:57 Hemoglobin A1c 6.0 Troponin I 0.017 Nasal Screen MRSA (PCR) Negative for mrsa Discharge Assessment & Plan Assessment and Plan Assessment: 1. Chest pain noncardiac 2. Chronic diarrhea Plan of Treatment: 1. Discharge home 2. Anti diarrhea 3. Follow-up with Dr. Rico, Dr. Tong, and Dr. Tan next week Discharge Plan Discharge Plan Discharge Problem: Hypokalemia, Chest pain Patient Disposition: Home Discharge orders & Medications Prescriptions: New opium tincture 10 mg/mL (morphine) tincture 1 ml PO TID PRN (Reason: diarrhea) Qty: 118 RF: 0 cholestyramine (with sugar) 4 gram powder 4 gram PO BID Qty: 378 RF: 0 Continued cranberry 1 cap PO BID Qty: 0 RF: 0 multivitamin Tablet 1 tab PO DAILY Qty: 0 RF: 0 Probiotic 1 cap PO DAILY Qty: 0 RF: 0 loperamide [Imodium A-D] 2 mg Capsule 2 - 16 mg PO BID Qty: 0 RF: 0 cholecalciferol (vitamin D3) [Vitamin D3] 2,000 unit Capsule 5,000 units PO DAILY Qty: 0 RF: 0 sulfasalazine 500 MG tablet 1,500 mg PO BID Qty: 0 RF: 0 leflunomide 20 MG tablet 20 mg PO QDAY Qty: 0 RF: 0 losartan 100 mg tablet 100 mg PO DAILY Qty: 90 RF: 0 metformin [Glucophage XR] 500 mg tablet extended release 24 hr 500 mg PO BID Qty: 60 RF: 5 gabapentin 300 mg capsule 300 mg PO BEDTIME RF: 0 trazodone 50 mg tablet 50 mg PO BEDTIME PRN (Reason: insomnia) Qty: 30 RF: 5 glipizide 10 mg tablet 5 mg PO BID Qty: 90 RF: 1 levothyroxine [Synthroid] 75 mcg tablet 75 mcg PO DAILY Qty: 90 RF: 0 diazepam 5 mg tablet See Rx Instructions .ROUTE .COMPLEX Qty: 60 RF: 0 oxybutynin chloride 5 mg tablet See Rx Instructions .ROUTE .COMPLEX Qty: 180 RF: 1 omeprazole 20 mg capsule,delayed release(DR/EC) See Rx Instructions .ROUTE .COMPLEX Qty: 90 RF: 1 fenofibrate 160 mg tablet See Rx Instructions .ROUTE .COMPLEX Qty: 90 RF: 1 atorvastatin 10 mg tablet See Rx Instructions .ROUTE .COMPLEX Qty: 90 RF: 1 diphenoxylate-atropine [Lomotil] 2.5-0.025 mg tablet 1 tab PO QID PRN (Reason: diarrhea) Qty: 20 RF: 0 ondansetron 4 mg tablet,disintegrating 4 mg PO Q6H PRN (Reason: nausea and vomiting) Qty: 20 RF: 0 nystatin 100,000 unit/gram powder 1 applictn TOP DAILY Qty: 15 RF: 0 Xeljanz XR 11 mg tablet extended release 24 hr 11 mg PO DAILY RF: 0 acetaminophen [Tylenol Arthritis Pain] 650 mg Tablet Extended Release 1,300 mg PO Q12H PRN (Reason: Pain) RF: 0 cyclobenzaprine 10 mg tablet 10 mg PO BID RF: 0 albuterol sulfate [ProAir HFA] 90 mcg/actuation HFA aerosol inhaler 2 puff INHALATION QID PRN (Reason: Shortness Of Breath) RF: 0 diltiazem HCl [Cartia XT] 240 mg capsule,extended release 24hr 240 mg PO DAILY RF: 0 aspirin [Adult Low Dose Aspirin] 81 mg Tablet,Delayed Release (Dr/Ec) 81 mg PO DAILY RF: 0 Discontinued ciprofloxacin HCl [Cipro] 500 mg tablet 500 mg PO BEDTIME Qty: 90 RF: 1 No Action (DME) blood-glucose meter Kit See Rx Instructions .ROUTE .MEDSUPPLY Qty: 1 RF: 0 (DME) glucose test strips Qty: 100 RF: 3 Follow up/Referrals: Jaspal Rico DO [Primary Care Provider] - Discharge Health Status Multidrug resistant organism: No MDRO Diet/Activity/Treatments Diet: Low-sodium and Low-cholesterol Discharge Data Primary Care Provider: Jaspal Rico Attending Provider: Patricia Wren Admit Date/Time: 06/25/20 19:45
[2020-06-27 13:41] LABS: BUN Creatinine Ratio 16.7 (6-22); Blood Urea Nitrogen 20 mg/dL (7-17); Calcium 7.9 mg/dL (8.4-10.2); Carbon Dioxide 24 mmol/L (22-32); Chloride 104 mmol/L (98-107); Estimated Glomerular Filt Rate 44.2 mL/min (>60); Glucose 222 mg/dL (80-110); HEMOLYSIS < 15 (0-50); Potassium 3.6 mmol/L (3.4-5.1); Sodium 132 mmol/L (137-145)
--- NOTE | 2020-06-27 16:38 | PC.NURSE ---
Pt discharge assisted to dress, removed IV with catheter intact, pt expressed her concerns that she was leaving the hospital before she was fixed. This nurse explained that while we replaced her potassium and magnesium the doctors felt that her case could be managed on an outpatient basis. Explained all of the discharge orders, provided education on her new medications and diagnosis. Pt belongings were bagged up and sent with . Pt assisted to wheelchair, and taken by TELEGRAPH INSPECTOR to private car. No further patient contact at this time.
== END 2020-06-27 16:30 | disposition home or self-care (01) ==
LOC: ED 19:33 → AC 19:45 → ICU 06-26 18:10
PROVIDERS: Internal Medicine; Admitting Provider Nurse Practitioner Family; Emergency Provider Emergency Medicine; PCP Family Medicine; Referring Provider Emergency Medicine; Visit Provider Nurse Practitioner Family
DX: R07.9 Chest pain, unspecified (principal); R19.7 Diarrhea, unspecified; N17.8 Other acute kidney failure; E86.0 Dehydration; E87.6 Hypokalemia; E43 Unspecified severe protein-calorie malnutrition; R74.8 Abnormal levels of other serum enzymes; K21.9 Gastro-esophageal reflux disease without esophagitis; M06.9 Rheumatoid arthritis, unspecified; E78.5 Hyperlipidemia, unspecified; E11.9 Type 2 diabetes mellitus without complications; Z79.4 Long term (current) use of insulin; Z90.49 Acquired absence of other specified parts of digestive tract; E03.9 Hypothyroidism, unspecified; R11.2 Nausea with vomiting, unspecified; R60.0 Localized edema; Z11.59 Encounter for screening for other viral diseases
CPT/HCPCS: 36415; 71045; 78452; 80048; 80053; 80061; 81001; 82550; 82553; 82962; 83036; 83690; 83735; 83880; 84132; 84484; 85025; 85610; 85730; 87635; 87797; 93005; 93017; 94762; 96365; 96366; 96368; 96372; 96375; 99284; G0378; A9502; J1940; J2270; J2785; J3480

== ENCOUNTER → 2020-06-30 14:34 | Outpatient (CLI) | payer OTHER, MEDICARE, SELFPAY ==
[2020-06-25 20:46] VITALS: BMI 34.7
[2020-06-30 15:58] LABS: HEMOLYSIS < 15 (0-50); Magnesium 1.5 mg/dL (1.6-2.3); Potassium 3.8 mmol/L (3.4-5.1)
== END ==
PROVIDERS: PCP Family Medicine; Referring Provider Family Medicine; Visit Provider Family Medicine
DX: E61.2 Magnesium deficiency (principal); E87.6 Hypokalemia
CPT/HCPCS: 36415; 83735; 84132

== ENCOUNTER → 2020-07-08 09:56 | Outpatient (CLI) | payer OTHER, SELFPAY ==
[2020-06-25 20:46] VITALS: BMI 34.7
[2020-07-08 11:18] LABS: HEMOLYSIS < 15 (0-50); Magnesium 1.1 mg/dL (1.6-2.3); Potassium 4.1 mmol/L (3.4-5.1)
== END ==
PROVIDERS: PCP Family Medicine; Referring Provider Family Medicine; Visit Provider Family Medicine
DX: E83.42 Hypomagnesemia (principal); E87.6 Hypokalemia
CPT/HCPCS: 36415; 83735; 84132

== ENCOUNTER → 2020-07-13 12:37 | Outpatient (CLI) | payer OTHER, SELFPAY ==
[2020-06-25 20:46] VITALS: BMI 34.7
[2020-07-13 14:31] LABS: Blood Urea Nitrogen 21 mg/dL (7-17); Calcium 9.1 mg/dL (8.4-10.2); Carbon Dioxide 26 mmol/L (22-32); Chloride 105 mmol/L (98-107); Glucose 261 mg/dL (80-110); HEMOLYSIS < 15 (0-50); Magnesium 1.5 mg/dL (1.6-2.3); Potassium 4.3 mmol/L (3.4-5.1); Sodium 138 mmol/L (137-145)
[2020-07-15 17:22] LABS: COVID19 Sendout Not Detected (Not Detect)
== END ==
PROVIDERS: Nurse Practitioner; PCP Family Medicine; Referring Provider Family Medicine; Visit Provider Family Medicine
DX: Z11.59 Encounter for screening for other viral diseases (principal); E83.42 Hypomagnesemia; K52.9 Noninfective gastroenteritis and colitis, unspecified
CPT/HCPCS: 36415; 80048; 83735; 87635

== ENCOUNTER 2020-07-16 13:38 | Day surgery (SDC) | payer OTHER, SELFPAY ==
[2020-06-25 20:46] VITALS: BMI 34.7
[2020-07-16] VITALS (7 sets, daily range): BP systolic 131–172; BP diastolic 70–92; PULSE 87–97; RESP 14–22; TEMP 36.4–37.1; O2SAT 94–98; BMI 33.9
--- NOTE | 2020-07-16 | PATH_ITS ---
[facility] Accession Number: [id number] . 01 Material submitted: . PART A: small bowel - SMALL BOWEL PART B: colon - RANDOM COLON . 02 Diagnosis: A. Small Bowel: Active enteritis with mucosal erosion. Negative for granulomas, regions of dysplasia, or malignancy. Please see comment. . B. Random Colon: Patchy regions of increased intraepithelial lymphocytes. Negative for dysplasia or malignancy. Please see comment. MRV 07/20/2020 1341 Local . 02 Comment: A. Sections demonstrate superficial portions of small bowel mucosa with blunted villi, increased lymphocytes, plasma cells and neutrophils within the lamina propria, and patchy regions of mucosal erosion. The differential diagnosis includes NSAID use, an acute self-limited bacterial enteritis, and idiopathic inflammatory bowel disease, in the appropriate clinical setting. There is no evidence of granulomas, regions of dysplasia or malignancy. . B. Histologic sections demonstrate superficial portions of colorectal mucosa with increased intraepithelial lymphocytes (up to approximately 12 lymphocytes per 100 enterocytes). These findings do not definitively meet the criteria for lymphocytic colitis; please correlate with clinical and imaging studies. . 02 Electronically signed: . Shiirn Malik MD, Pathologist NPI- [id number] . 01 Gross description: . A. Received in formalin, labeled small bowel biopsy, and consists of four sharp-pink fragments of soft tissue measuring 0.5 x 0.4 x 0.2 cm in aggregate. The specimen is entirely submitted in cassette A1. B. Received in formalin, labeled random colon biopsies, and consists of two sharp fragments of soft tissue measuring 0.5 x 0.4 x 0.2 cm in aggregate. The specimen is entirely submitted in cassette B1. ([id number]) /MRV 07/17/2020 1315 Local . 02 Pathologist provided ICD-10: R19.7 . 02 CPT . 150417, [id number] Performed at: 01 [facility] [address] [place] [address], [place], [place] [id number] MD Osvaldo Finn MD Phone: [phone] Performed at: 02 [facility] [id number] [place], [place] [id number] MD Mary Garcia MD Phone: [phone]
[2020-07-16] MEDS: LACTATED RINGERS 1,000 ML 200 ML IV (14:45)
--- NOTE | 2020-07-16 15:50 | PM.HP.1 ---
History of Present Illness History of Present Illness Date Patient Seen: 07/16/20 Time Patient Seen: 15:50 Chief complaint: SDC Narrative: This is a 74-year-old female who is referred for colonoscopy secondary to new onset uncontrolled diarrhea. [facility] colonoscopy was 2017 at [facility] details she can not recall . History significant for previous colectomy in 2017 benign disease she can recall no further detail. She has no personal or family history of colon cancer. She does have profuse diarrhea she has no blood per rectum hematochezia she has some associated nausea and vomiting Patient History Medical History Anxiety (Acute) Anxiety disorder due to general medical condition (Acute) Back pain with history of spinal surgery (Acute) BCC (basal cell carcinoma) (Acute) Carpal tunnel syndrome (Resolved Unknown) Chickenpox (Resolved Unknown) Chronic back pain (Chronic Unknown) Chronic diarrhea (Acute) Chronic pain (Acute) Colon polyps (Resolved Unknown) Degenerative disc disease, lumbar (Acute) Delayed surgical wound healing (Acute 10/18/19) Depression (Acute) Easy bruisability (Acute) Excessive cerumen in right ear canal (Acute) Glaucoma (Acute) Hyperlipemia (Chronic Unknown) Hypertension (Chronic Unknown) Hypoglycemia associated with type 2 diabetes mellitus (Acute) Hypomagnesemia (Acute) Hypothyroidism (Chronic Unknown) Kidney disease (Chronic Unknown) Measles (Resolved Unknown) Migraines (Chronic Unknown) Mumps (Resolved Unknown) Neuropathy (Chronic Unknown) Physical deconditioning (Acute) Rheumatoid arthritis (Chronic Unknown) Segmental and somatic dysfunction of rib cage (Acute) Skin cancer (Resolved Unknown) Skin lesion of left leg (Acute) Surgical History H/O colectomy (Acute ~2016) History of arthroscopy of right shoulder (Resolved 07/2012) History of carpal tunnel surgery (Resolved 1981) History of lumbar surgery (Resolved Unknown) History of ovarian cystectomy (Acute ~1974) Hx of appendectomy (Resolved 03/2017) Hx of bilateral cataract extraction (Acute) Hx of cholecystectomy (Resolved 1983) Hx of eye surgery (Acute) Hx of hernia repair (Resolved 04/2011) Hx of laparoscopy (Resolved 03/2017) Hx of lithotripsy (Resolved ~03/2017) Hx of tubal ligation (Resolved 1976) S/P lumbar fusion (Acute 10/18/19) Family & Social History Family History Father Diabetes mellitus Mother Mental health problem Sister Cancer Brother No problems noted. Social History: household members spouse,children Tobacco & Substance use: Smoking Status Never smoker alcohol intake never alcohol intake frequency holiday/special occasion Substance Use Type does not use Meds Home Medications and Allergies Home Medications Medication Instructions Recorded Confirmed Type multivitamin 1 tab PO DAILY #0 10/04/11 07/16/20 History Probiotic 1 cap PO DAILY #0 01/15/13 07/16/20 History cholecalciferol (vitamin D3) 5,000 units PO DAILY #0 07/04/17 07/16/20 History [Vitamin D3] leflunomide 20 mg PO QDAY #0 07/04/17 07/16/20 History losartan 100 mg tablet 100 mg PO DAILY #90 tab 07/15/19 07/16/20 Rx tofacitinib 11 mg tablet,extended 11 mg PO DAILY 08/28/19 07/16/20 History release 24 hr albuterol sulfate [ProAir HFA] 2 puff INHALATION QID PRN 10/10/19 07/16/20 History blood-glucose meter #1 each 10/11/19 07/15/20 Rx gabapentin 300 mg capsule 300 mg PO BEDTIME cap 02/05/20 07/16/20 History glipizide 10 mg tablet 5 mg PO BID #90 tab 02/05/20 07/16/20 Rx trazodone 50 mg tablet 50 mg PO BEDTIME PRN #30 tab 02/05/20 07/16/20 Rx glucose test strips #100 each 05/27/20 07/15/20 Rx atorvastatin 10 mg tablet See Rx Instructions .ROUTE 06/02/20 07/16/20 Rx .COMPLEX #90 tab omeprazole 20 mg capsule,delayed See Rx Instructions .ROUTE 06/02/20 07/16/20 Rx release .COMPLEX #90 cap oxybutynin chloride 5 mg tablet See Rx Instructions .ROUTE 06/02/20 07/16/20 Rx .COMPLEX #180 tab ondansetron 4 mg disintegrating 4 mg PO Q6H PRN #20 tab 06/22/20 07/16/20 Rx tablet aspirin [Adult Low Dose Aspirin] 81 mg PO DAILY 06/25/20 07/16/20 History diltiazem HCl [Cartia XT] 240 mg PO DAILY 06/25/20 07/16/20 History nystatin 100,000 unit/gram topical 1 applictn TOP DAILY #15 gram 06/25/20 07/16/20 Rx powder potassium chloride 20 mEq/15 mL 10 meq PO DAILY #473 ml 06/30/20 07/16/20 Rx oral liquid balsalazide 750 mg capsule 2,250 mg PO TID #180 cap 07/02/20 07/16/20 Rx levothyroxine 75 mcg tablet 75 mcg PO DAILY #90 tab 07/02/20 07/16/20 Rx opium tincture 10 mg/mL (morphine) 1 ml PO TID PRN #118 ml 07/15/20 07/16/20 Rx oral Allergies Allergy/AdvReac Type Severity Reaction Status Date / Time Iodine and Iodide Containing Allergy Severe Anaphylaxis Verified 07/15/20 11:29 Produc povidone-iodine Allergy Severe Anaphylaxis Verified 07/15/20 11:29 [From Betadine] shellfish derived Allergy Severe Anaphylaxis Verified 07/15/20 11:29 soap [From Betadine] Allergy Severe Anaphylaxis Verified 07/15/20 11:29 tramadol AdvReac Severe Vomiting Verified 07/15/20 11:29 Penicillins AdvReac Unknown Family has Verified 07/15/20 11:29 had issues with penicillin [employer] Allergy Severe Anaphylaxis Uncoded 07/15/20 11:29 FISH PROTEIN Allergy Severe Anaphylaxis Uncoded 07/15/20 11:29 Review of Systems Review of Systems Narrative: A 10 point review of systems is negative except as noted in the HPI Exam Vital Signs (past 8 hours): - 07/16/20 14:34 Temperature 97.7 F Pulse Rate 88 Respiratory Rate 15 Blood Pressure 172/92 H Pulse Oximetry 97 Oxygen Delivery Method Room Air Narrative Exam Narrative: General-no acute distress, well nourished HEENT-moist mucous membranes, no scleral icterus Neck-supple, no lymphadenopathy Chest- non labored respirations, clear to auscultation bilaterally Cardiac-regular rate no peripheral edema Abdomen-soft, nontender, non distended Extremities-warm, well perfused Neurological-alert and oriented, no focal deficits Assessment & Plan Assessment & Plan narrative: The patient requires colorectal screening and colonoscopy is recommended. Technical details were discussed. Risks, benefits, alternatives explained. Risks including but not limited to myocardial infarction, aspiration, bleeding, pain, missed lesion, incomplete examination, need for further radiographic studies, colonic perforation, and need for major abdominal surgery were discussed. All questions were answered to their satisfaction, and they are in agreement with this plan.
[2020-07-16] MEDS: fentaNYL 250 MCG/5 ML INJ IV (16:02)
[2020-07-16] MEDS: MIDAZOLAM 5 MG/5 ML VIAL IV (16:02)
--- NOTE | 2020-07-16 16:14 | PM.OP.ENDO ---
Operative Date/Time/Diagnoses Date of procedure: 07/16/20 Time of procedure: 16:14 Pre-op diagnosis: Chronic diarrhea Post-op diagnosis: same Procedure & Clinicians Study performed: Colonoscopy Same procedure as scheduled: Yes Indications: 74-year-old woman history of colectomy has chronic diarrhea and here for diagnostic colonoscopy Surgeon: Yaniv Tong Procedure Notes SCOAP/Timeout: Performed Procedure in detail: Patient placed in left lateral recumbent position. Time out was performed. Procedural sedation was administered with Versed and Fentanyl. Examination began with a thorough inspection of the perianal area there was no evidence of fissures, fistulae, external hemorrhoids or cutaneous malignancy. The colonoscopy scope was then placed into the rectum the the lumen was insufflated with air. The scope was carefully advanced forward. Ultimately the ascending colon was intubated and a colo enteric anastomosis was demonstrated. The anastomosis was normal in its appearance. I took several biopsies of the small bowel and it appeared excoriated and inflamed. The scope was then slowly withdrawn examining colon thoroughly in all directions. The colon was notable only for its flat surface appearance there were no masses or polyps. I took several random biopsies of the colonic mucosa. In the rectum the rectal columns were identified and retroflexion of the scope was performed for inspection of the distal rectum and anal canal. Scope withdrawal time: NA Sedation minutes: 20 Findings: other findings (Inflamed small bowel) Specimen(s): other (Biopsy of small bowel and colon) Complications: none Impression: Enteritis Post-procedure Recommendations: Other recommendation (Will notify with results of biopsy) Disposition: same day surgery
--- NOTE | 2020-07-16 17:19 | SUR.PHASEII ---
1314-Pt dcd in stable condition via wc with no c/o.
== END 2020-07-16 17:14 | disposition home or self-care (01) ==
PROVIDERS: PCP Family Medicine; Referring Provider Surgery; Visit Provider Surgery
PROC: 0DJD8ZZ Inspection of Lower Intestinal Tract, Via Natural or Artificial Opening Endoscopic (ICD-10-PCS; CPT 45378; principal; 2020-07-16 15:15)
DX: K52.9 Noninfective gastroenteritis and colitis, unspecified (principal); E11.9 Type 2 diabetes mellitus without complications; Z79.84 Long term (current) use of oral hypoglycemic drugs; E78.5 Hyperlipidemia, unspecified; I10 Essential (primary) hypertension; E03.9 Hypothyroidism, unspecified; F41.9 Anxiety disorder, unspecified; F32.9 Major depressive disorder, single episode, unspecified
CPT/HCPCS: 45380; 99152; J2250; J3010

== ENCOUNTER → 2021-01-14 11:48 | Outpatient (CLI) | payer OTHER, SELFPAY ==
[2020-06-25 20:46] VITALS: BMI 34.7
--- NOTE | 2021-01-14 | DI.RAD.S_ITS ---
PROCEDURE: XR CHEST 2V INDICATIONS: RIB PAIN TECHNIQUE: 2 views of the chest were acquired. COMPARISON: [facility], CR, XR CHEST 1V, 06/25/2020, 15:06. [facility], CR, XR CHEST 1V, 10/20/2019, 11:22. FINDINGS: Surgical changes and devices: None. Lungs and pleura: There is a nodular density in the left midlung zone, not seen on the comparison chest x-ray. No pleural effusions or pneumothorax. Mediastinum: Mediastinal contours are normal. Heart size is normal. Bones and chest wall: No suspicious bony abnormalities. Soft tissues appear unremarkable. IMPRESSION: A nodular density in the left midlung zone. Recommend chest CT for follow-up evaluation. Dictated by: Karin Be M.D. on 01/14/2021 at 13:00 Approved by: Karin Be M.D. on 01/14/2021 at 13:01
== END ==
PROVIDERS: PCP Internal Medicine; Referring Provider Physician Assistant; Visit Provider Physician Assistant
DX: R07.81 Pleurodynia (principal); R91.1 Solitary pulmonary nodule
CPT/HCPCS: 71046

== ENCOUNTER → 2021-03-16 13:44 | Outpatient (CLI) | payer OTHER, SELFPAY ==
[2020-06-25 20:46] VITALS: BMI 34.7
== END ==
PROVIDERS: PCP Internal Medicine; Referring Provider Internal Medicine; Visit Provider Family Medicine
DX: E11.622 Type 2 diabetes mellitus with other skin ulcer (principal); L97.822 Non-pressure chronic ulcer of other part of left lower leg with fat layer exposed; L97.821 Non-pressure chronic ulcer of other part of left lower leg limited to breakdown of skin; E11.40 Type 2 diabetes mellitus with diabetic neuropathy, unspecified; R60.0 Localized edema; Z79.4 Long term (current) use of insulin; M06.9 Rheumatoid arthritis, unspecified; K50.90 Crohn's disease, unspecified, without complications
CPT/HCPCS: 11104; 99204; 99214

== ENCOUNTER → 2021-03-30 13:09 | Outpatient (CLI) | payer OTHER, SELFPAY ==
[2020-06-25 20:46] VITALS: BMI 34.7
--- OUTSIDE RECORDS SUMMARY | 2021-05-28 10:20 | XMS_ITS ---
:1945 Author Organization [facility] [address] [place] [address] Care Team Providers Name Role Phone Jennie Braga MD Primary Care Provider Reason for Referral (Routine) Status Reason Specialty Diagnoses / Referred By Referred To Procedures Contact Contact Pending Cardiac Diagnoses Acute renal failure, unspecified acute renal failure type (CMS/HCC) Sudhakar Batista Cardiac Review Rehabilitation MD [facility] [address] [address] [facility] [address] Phone: Fax: Electronically signed by Trent Batista MD at Reason for Visit Reason Comments Altered Mental Status Shortness of Breath Auth/Cert Status Reason Specialty Diagnoses / Procedures Referred By C ontact Referred To Contact Diagnoses Hyperkalemia Occult blood in stools Acute cystitis without hematuria Acute renal failure, unspecified acute renal failure type (CMS/HCC) Sepsis due to skin infection (CMS/HCC) Acute anemia Procedures INPATIENT Encounter Details Date Type Department Care Team Description 04/15/2021 - Hospital Encounter [facility] Doe Rowe DO [address] [place] [address] Acute renal failure, unspecified acute r enal failure type (CMS/HCC) (Primary Dx); 05/27/2021 [facility] Ana Maria Narvaez MD [address] [place] [address] Hyperkalemia; [facility] Care Xavier Johnson MD [address] [place] [address] Sepsis due to skin infection ([facility]); Unit Jordan Ramsey MD [address] [place] [address] Acute anemia; [address] [place] Chris Julio MD [address] [place] [address] Occult blood in stools; [place] Ezekiel Garcia, [address] [place] [address] Acute cystitis without hematuria; [place], [place] Denise Miller, DO [address] [place] [address] Pressure injury of skin of right calf, u nspecified injury stage; [id number] [place], [address] [place] [address] Dysphagia, unspecified type [phone] Allergies Active Allergy Reactions Severity Noted Date Comments Sulfamethoxazole-Trimethoprim Swelling Medium 09/10/2020 Povidone-Iodine 07/28/2020 Fish Derived 09/06/2011 Iodine 09/06/2011 Other 07/28/2020 [place] products Shellfish Containing Products 09/06/2011 documented as of this encounter (statuses as of 05/27/2021) Medications Medication Sig Dispensed Refills Start End Status Date Date cranberry 400 mg 1 po bid 0 Act sami capsule fenofibrate 150 mg 1 capsule 0 A ctive capsule daily 160 mg gabapentin (NEURONTIN) 1 capsule 0 Active 300 mg capsule daily. glipiZIDE (GLUCOTROL) Take 5 mg by 0 Active 10 mg tablet mouth 2 (two) times a day before meals levothyroxine Take 75 mcg 0 Acti ve (SYNTHROID, LEVOTHROID) by mouth 25 mcg tablet daily metFORMIN (GLUCOPHAGE) every 12 0 Active 500 mg tablet hours. MULTIVIT WITH 1 po daily 0 Activ e MINERALS/LUTEIN (MULTIVITAMIN 50 PLUS ORAL) oxybutynin (DITROPAN) 5 every 12 0 Active mg tablet hours. Lactobacillus 1 po bid 0 Active acidophilus 10 billion cell capsule cholecalciferol, 1 po qd 0 Act sami vitamin D3, 400 unit capsule acetaminophen (TYLENOL) every 8 0 Active 500 mg tablet (eight) hours as needed. cyclobenzaprine Take 10 mg by 0 06/10/20 Active (FLEXERIL) 10 mg tablet mouth as 19 needed traZODone (DESYREL) 50 0 08/14/20 Active mg tablet 19 diazePAM (VALIUM) 5 mg Take 5 mg by 0 Active tablet mouth as needed for anxiety metroNIDAZOLE (FLAGYL) Take 0.5 90 tablet 2 07/31/20 Active 500 mg tablets (250 20 tabletIndications: mg total) by Enteritis mouth 3 (three) times a day clopidogreL (PLAVIX) 75 Take 1 tablet 30 tablet 0 05/28/20 Active mg tablet (75 mg total) 21 021 by mouth daily atorvastatin (LIPITOR) Take 1 tablet 30 tablet 11 05/27/20 Active 40 mg tablet (40 mg total) 21 022 by mouth nightly amiodarone (PACERONE) Take 1 tablet 30 tablet 0 05/28/2005/31/2 Active 200 mg tablet (200 mg 21 021 total) by mouth daily apixaban (ELIQUIS) 5 mg Take 1 tablet 60 tablet 0 05/27/20 Active tablet (5 mg total) 21 021 by mouth 2 (two) times a day hydroCHLOROthiazide Take 1 tablet 30 tablet 0 05/28/20 Active (HYDRODIURIL) 12.5 mg (12.5 mg 21 021 tablet total) by mouth daily metoprolol succinate XL Take 1 tablet 30 tablet 0 05/28/20 Active (TOPROL-XL) 25 mg 24 hr (25 mg total) 21 02 1 tablet by mouth daily ondansetron ODT Take 1 tablet 20 tablet 0 05/27/20 Active (ZOFRAN-ODT) 4 mg (4 mg total) disintegrating tablet by mouth every 8 (eight) hours as needed for nausea or vomiting for up to 7 days pantoprazole (PROTONIX) Take 1 tablet 30 tablet 0 05/28/20 Active 40 mg EC tablet (40 mg total) by mouth every morning before breakfast sertraline (ZOLOFT) 50 Take 1 tablet 30 tablet 0 05/27/2027/12 Active mg tablet (50 mg total) 021 by mouth nightly sulfaSALAzine Take 2 120 tablet 0 05/27/20 Activ e (AZULFIDINE) 500 mg tablets tablet (1,000 mg total) by mouth 2 (two) times a day predniSONE (DELTASONE) Take 1 tablet 30 tablet 0 05/28/20 Active 5 mg tablet (5 mg total) by mouth daily HYDROcodone-acetaminoph Take 1-2 30 tablet 0 05/27/20 Active en (NORCO) 5-325 tablets by mgIndications: Pressure mouth every 8 injury of skin of right (eight) hours calf, unspecified as needed injury stage (pain) for up to 7 days lactobacillus rhamnosus Take 1 30 capsule 11 05/28/2005/28 Active GG (CULTURELLE) 10 capsule by billion cell mouth daily magnesium chloride Take 1 tablet 30 tablet 0 05/28/20 Active (SLOW-MAG) 71.5 mg (71.5 mg tablet,delayed release total) by (DR/EC) tablet mouth daily with breakfast miconazole (MICOTIN) 2 Apply 70 g 0 05/27/20 Active % powder topically 2 (two) times a day for 10 days aspirin 81 mg EC tablet daily. 0 Discontinued 021 (Stop Taki ng at Discharge) atorvastatin (LIPITOR) Take 10 mg by 0 Discontinued 20 mg tablet mouth daily 021 (Stop Taking at Discharge) diltiazem CD (CARDIZEM Take 1 90 capsule 1 06/15/20 Discontinued CD) 240 mg 24 hr capsule (240 (Stop Taking at capsule mg total) by Dischcolt ge) mouth daily predniSONE (DELTASONE) Take as 200 tablet 6 09/23/20 Discontinued 10 mg directed by (Nel hutson at tabletIndications: MD Andrews mcfarland) Enteritis documented as of this encounter (statuses as of 05/27/2021) Active Problems Problem Noted Date Unstable angina 05/17/2021 Pressure injury of skin of right calf 04/15/2021 Overview: Added automatically from request for santos rosenbergy [id number] Dysphagia 04/15/2021 Overview: Added automatically from request for santos maría [id number] Abdominal pain 07/28/2020 Overview: Added automatically from request for santos rosenbergy [id number] Functional diarrhea 07/28/2020 Overview: Added automatically from request for santos maría [id number] Nausea and vomiting 07/28/2020 Overview: Added automatically from request for santos maría [id number] Excessive body weight loss 07/28/2020 Overview: Added automatically from request for santos maraí [id number] Psoriatic arthritis 05/31/2019 Grief 07/18/2018 Last Assessment & Plan: IMPRESSION: -- Patient is experiencing body grief ov er changes in her body and her expectations of herself, she can do taking care of her child with physical and mental disabilities as well as her who has Parkinson's. -- We discussed the normal aging process and how to start to create normal healthy boundaries with an ourselves as well as within her family structure in order to leave a healthy and happy lifestyle and not to burn out -- Patient has a very strong zoroastrianism f gildardo -- Most of this visit was spent counseli ng the patient. Seronegative rheumatoid arthritis of multiple sites Overview: BRIEF HISTORY OF CONDITION: seronegative rheumatoid arthritis with synovitis in her right MCP joints with symptoms there as well as her ankles / feet, diabetes mellitus type 2, chronic renal insufficien cy and issues at one time of chronic / r ecurrent bronchopneumonia. -- Prior to getting her yearly influenza vaccinations, she would have recurrent issues of bronchopneumonia. -- Significant issue of UTI that seeming ly resulted in urosepsis at one time - she is on chronic ciprofloxicin apparently because of this concern reoccurring. -- records from Dr. Garcia at [facility] eumatology: nothing past January 2015 and she was apparently started on Humira in February of 2015 although we have no record of that addition to the sulfasalazine that she has been on since 12/17/14. -- In Dr. Garcia's notes she is supposedly s eropositive rheumatoid arthritis, but lab records from her show that she is antiCCP negative and RF negative back in 2013 as only 14.7 < 20 is traditionally normal / negative LABS from Dr. Garcia: - HCV Ab negative - 11/21/14 - Quantiferon gold negative - 11/21/14 - HbsAg negative - 11/21/14 - antiCCP negative - 11/21/14 - RF of 14.7 - 10/24/14 - CRP of 0.9mg/dL and ESR of 5 - 4 LABS: - AntiCCP and RF 10.6 negative - 02/22/16 - CRP, ESR and CBC normal - 02/22/16 - vectra DA moderate - 04/12/16 - quantiFERON GOLD negative - 04/12/16 - HBV core AB and HCV Ab negative - 04/12 - CRP, ESR, and uric acid normal - - CBC normal - 04/12/16 - CMP normal aside from glucose of 172 a nd alk-phos of 38 - 04/12/16 RADIOLOGY: - Hand films - 02/22/16 - mild to moderat e OA changes in various IP joints and in her 1st CMC joint. Also with OA changes of the right 2nd MCP joint. No erosive changes or chondrocalcinosis noted B. Last Assessment & Plan: DISEASE ACTIVITY MEASURES: -- CDAI of 7 - 02/15/2018 ( on 20 mg of L EF, 3 g SSZ, and Xeljanz) IMPRESSION: -- seronegative rheumatoid arthritis wit h persistent synovitis in her bilateral 2-3rd MCP joints with some improvement on Xeljanz now. Improvement and morning stiffness and improvement in the synovitis of her left hand. Mild synovitis in the right hand without tenderness and without morning joint stiffness. -- She states that she had been doing we ll on the leflunomide and sulfasalazine. -- concern is obvious issues of recurre nt infections as stated above. During a time we had significant smoke the patient did have a course of pneumonia cleared up with one round of antibiotics. PLAN: -- Continue leflunomide and sulfasalazin e without change. --Continue Xeljanz -- Labs today -- Follow up in 3 months Osteoarthropathy 08/22/2017 Overview: BRIEF HISTORY OF CONDITION: known proble m of peripheral degenerative joint disease and degenerative spine disease. Last Assessment & Plan: IMPRESSION: -- patient is aware of the fact that she has OA with her RA. -- Overall, I don't think this causes an y significant limitations for the patient. PLAN: -- 500-1000mg of Tylenol as needed, up t o 2,000mg daily. Type II diabetes mellitus with complication 08/22/2017 Last Assessment & Plan: IMPRESSION: -- known problem of diabetic neuropathy - reason she takes the gabapentin. -- She states she has balance issues and I suspect it is due to her neuropathy and not do to her arthritis - she states if she looks up she will start to have balance issue also possible benign position al vertigo, but she doesn't complain of dizziness. Renal insufficiency 08/22/2017 Overview: LABS: -- SCr of 1.34 - 04/28/17 -- SCr 1.10 and BUN of 29 ? 06/05/17 Last Assessment & Plan: IMPRESSION: -- This has returned to her baseline SCr level. documented as of this encounter (statuses as of 05/27/2021) Immunizations Name Administration Dates Next Due FLU PF 6+Mos Quad (Fluzone, FluLaval, Fluarix) 08/17/2020 Moderna SARS-CoV-2 Vaccine 01/28/2021, 12/25/2020 Pneumococcal Conjugate PCV13 ([id number]) 11/22/2016 Pneumococcal Polysaccharide PPV23 ([id number]) 01/08/2018, 12/15/2009 Tdap (Boostrix,Adacel) 02/06/2015 VFC Pneumococcal Conjugate PCV13 ([id number]) 11/22/2016 VFC Pneumococcal Polysaccharide PPV23 ([id number]) 01/09/20 18, 12/15/2009 VFC Tdap (Boostrix,Adacel) 02/06/2015 documented as of this encounter Social History Tobacco Use Types Packs/Day Years Used Date Never Smoker 0 0 Smokeless Tobacco: Never Used Alcohol Use Standard Drinks/Week Comments No 0 (1 standard drink = 0.6 oz pure alcoho l) Sex Assigned at Date Recorded Female 11/05/2020 1:26 PM PST Job Start Date Occupation Industry Not on file Not on file Not on file COVID-19 Exposure Response Date Recorded In the last month, have you been in contact with No / Unsure 04/16/2021 5:16 AM PDT someone who was confirmed or suspected to have Coronavirus / COVID-19? documented as of this encounter Last Filed Vital Signs Vital Sign Reading Time Taken Comments Blood Pressure 159/81 05/27/2021 12:36 PM PDT Pulse 66 05/27/2021 12:36 PM PDT Temperature 36.6 ??C (97.9 ??F) 05/27/2021 12:36 PM PDT Respiratory Rate 18 05/27/2021 12:36 PM PDT Oxygen Saturation 96% 05/27/2021 12:36 PM PDT Inhaled Oxygen Concentration - - Weight 72.8 kg (160 lb 7.9 oz) 05/27/2021 3:39 AM PDT Height 152.4 cm (5') 04/16/2021 5:01 AM PDT Body Mass Index 31.34 04/16/2021 5:01 AM PDT documented in this encounter Discharge Summaries Not on filedocumented in this encounter Discharge Instructions Ana Maria William CNA - 05/26/2021 11:29 AM PDT [place] [facility] [place] [phone] Dr. Braga on May 31 Check In at 3:05pm for a 40 min. Appt No [facility] [phone] option # 5 June 01 Check In at 8:30am for 8:45am Appt. Twice a week appointments Monday/Monday Additional InstructionsRosio Pandya, DO - 05/27/2021 You were hospitalized and found to have multiple medical conditions that more treated. You received extensive wound care and medications to treat infections. You should follow-up with wound care at [facility] at least twice a week. You were started on multiple medications to treat your atrial fibrillation and had a stent placed due to coronary artery disease. You do have a follow-up appointment with cardiology scheduled. You also had your esophagus dilated/widened to help treat symptoms of difficulty swallowing. It is very important for you to consistently take all of your new medications and follow-up closely with your primary care doctor to make sure that you are still doing okay after your hospitalization. As we discussed, if you do not do well at home, you should strongly consider trying to stay with family or move to a place where you are closer to medical care. [place] it may be necessary for your overall health. AttachmentsThe following attachments cannot be sent through Care Everywhere. Amiodarone (By mouth) (Venezuelan)Apixaban (By mouth) (Venezuelan)Clopidogrel (By mouth) ([place]enezuelan)Hydrochlorothiazide (By mouth) ([place]enezuelan)Metoprolol (By mouth) ([place]enezuelan)Ondansetron (By mouth, Into the mouth) ([place]an)Pantoprazole (By mouth) ([place]an)Sertraline (By mouth) ([place]enezuelan)Sulfasalazine (By mouth) ([place]enezuelan) documented in this encounter Medications at Time of Discharge Medication Sig Dispensed Refills Start Date End Date acetaminophen (TYLENOL) 500 every 8 (eight) 0 mg tablet hours as needed. amiodarone (PACERONE) 200 Take 1 tablet 30 tablet 0 05/28/2 021 06/27/2021 mg tablet (200 mg total) by mouth daily apixaban (ELIQUIS) 5 mg Take 1 tablet (5 60 tablet 0 202006/26/2021 tablet mg total) by mouth 2 (two) times a day atorvastatin (LIPITOR) 40 Take 1 tablet (40 30 tablet 11 05/27/2022 mg tablet mg total) by mouth nightly cholecalciferol, vitamin 1 po qd 0 D3, 400 unit capsule clopidogreL (PLAVIX) 75 mg Take 1 tablet (75 30 tablet 0 06/27/2021 tablet mg total) by mouth daily cranberry 400 mg capsule 1 po bid 0 cyclobenzaprine (FLEXERIL) Take 10 mg by 0 2018 10 mg tablet mouth as needed diazePAM (VALIUM) 5 mg Take 5 mg by 0 tablet mouth as needed for anxiety fenofibrate 150 mg capsule 1 capsule daily 0 160 mg gabapentin (NEURONTIN) 300 1 capsule daily. 0 mg capsule glipiZIDE (GLUCOTROL) 10 mg Take 5 mg by 0 tablet mouth 2 (two) times a day before meals hydroCHLOROthiazide Take 1 tablet 30 tablet 0 05/28/2021 (HYDRODIURIL) 12.5 mg (12.5 mg total) tablet by mouth daily HYDROcodone-acetaminophen Take 1-2 tablets 30 tablet 0 04/3006/03/2021 (NORCO) 5-325 by mouth every 8 mgIndications: Pressure (eight) hours as injury of skin of right needed (pain) for calf, unspecified injury up to 7 days stage Lactobacillus acidophilus 1 po bid 0 10 billion cell capsule lactobacillus rhamnosus GG Take 1 capsule by 30 capsule 11 05/28/2022 (CULTURELLE) 10 billion mouth daily cell levothyroxine (SYNTHROID, Take 75 mcg by 0 LEVOTHROID) 25 mcg tablet mouth daily magnesium chloride Take 1 tablet 30 tablet 0 05/28/2021 (SLOW-MAG) 71.5 mg (71.5 mg total) tablet,delayed release by mouth daily (DR/EC) tablet with breakfast metFORMIN (GLUCOPHAGE) 500 every 12 hours. 0 mg tablet metoprolol succinate XL Take 1 tablet (25 30 tablet 0 05/2806/27/2021 (TOPROL-XL) 25 mg 24 hr mg total) by tablet mouth daily metroNIDAZOLE (FLAGYL) 500 Take 0.5 tablets 90 tablet 2 11/2019 mg tabletIndications: (250 mg total) by Enteritis mouth 3 (three) times a day miconazole (MICOTIN) 2 % Apply topically 2 70 g 0 04/3006/06/2021 powder (two) times a day for 10 days MULTIVIT WITH 1 po daily 0 MINERALS/LUTEIN (MULTIVITAMIN 50 PLUS ORAL) ondansetron ODT Take 1 tablet (4 20 tablet 0 05/27/202102/2021 (ZOFRAN-ODT) 4 mg mg total) by disintegrating tablet mouth every 8 (eight) hours as needed for nausea or vomiting for up to 7 days oxybutynin (DITROPAN) 5 mg every 12 hours. 0 tablet pantoprazole (PROTONIX) 40 Take 1 tablet (40 30 tablet 0 06/27/2021 mg EC tablet mg total) by mouth every morning before breakfast predniSONE (DELTASONE) 5 mg Take 1 tablet (5 30 tablet 0 06/27/2021 tablet mg total) by mouth daily sertraline (ZOLOFT) 50 mg Take 1 tablet (50 30 tablet 0 06/26/2021 tablet mg total) by mouth nightly sulfaSALAzine (AZULFIDINE) Take 2 tablets 120 tablet 0 05/2706/26/2021 500 mg tablet (1,000 mg total) by mouth 2 (two) times a day traZODone (DESYREL) 50 mg 0 08/14/2019 tablet documented as of this encounter Progress Notes Russell Cantu, CASSANDRA DEVELOPER - 05/27/2021 2:02 PM PDT SOCIAL WORK: DISCHARGE Data: EMR reviewed. Pt is on day 41 for Problem List Items Addressed This Visit Digestive Dysphagia Relevant Orders Case Request (Completed) Surgical Pathology (Completed) Musculoskeletal * (Principal) Pressure injury of skin of right calf Relevant Medications HYDROcodone-acetaminophen (NORCO) 5-325 mg miconazole (MICOTIN) 2 % powder Other Relevant Orders MISC. TEST - (Completed) Culture, Deep Abscess Aerobic&Anaerobic w/gram stain (Completed) Other Visit Diagnoses Acute renal failure, unspecified acute renal failure type (CMS/HCC) - Primary Relevant Medications hydroCHLOROthiazide (HYDRODIURIL) 12.5 mg tablet (Start on 05/28/2021) Other Relevant Orders Ambulatory Referral to Cardiac Rehabilitation Hyperkalemia Sepsis due to skin infection ([facility]) Relevant Medications predniSONE (DELTASONE) 5 mg tablet (Start on 05/28/2021) Acute anemia Occult blood in stools Acute cystitis without hematuria Pt is medically ready for discharge. Pt will be discharging home. Transportation will be provided byson. PRECIPITATOR OPERATOR met with patient at bedside to confirm discharge plan and assess for unidentified needs. They are agreeable to this discharge plan. They do not identify barriers or concerns to this plan. Assessment: alert and oriented x4. Per PRECIPITATOR OPERATOR interactions, Physician Documentation and Nursing Documentation, patient has capacity for self care and has decisional capacity at this time. Plan: Pt to discharge home. PRECIPITATOR OPERATOR discussed d/c with pt & attending. All updated and agreeable toplan. Russell Cantu LCSW KATETKaren orantes RN - 05/27/2021 1:59 PM PDT Images from the original note were not included. [facility] Inpatient Wound Care Pt Name/Age/: Shirin Aguillon 75 y.o. 1945 Med. Record #: [id number] Date of Admission: 04/15/2021 Reason for Admission: Pressure injury of skin of right calf Follow up visit for inpatient wound consult r/t dressing change to bilateral LE Shirin Aguillon is a 75 y.o. female patient resting in bed. Patient has a past medical history ofAbdominal pain, Arthritis, Arthritis, rheumatoid ([facility]), Chronic diarrhea, Delayed emergence fromgeneral anesthesia, Diabetes ([facility]), Disorder, Gallbladder disease, H/O recurrent pneumonia, Hyper lipidemia, Hypertension, Kidney disease, Low back pain (ongoing), Migraine headache, Neuropathy, PONV (postoperative nausea and vomiting), Skin cancer, Thyroid disease, Tubular adenoma, UTI (urinary tract infection), and Weight loss, non-intentional. Wound 1-- Location: Right calf Description: Chronic pressure wound Dimensions: 11.1cm x 2.8cm x 0.4cm Base: red, moist, granulation tissue, minor adherent slough Edges: pale, epithelialization Drainage: serosanguinous Odor: none Periwound Skin: pale, fragile Pain: 6/10 during dressing removal Capillary refill-- brisk Photo: Please note photo is from care on 05/24 Wound 2-- Location: Left calf Description: Chronic pressure wound Dimensions: 7.0cm x 6.8cm x 0.3cm Base: red, moist, granulation tissue, epithelial edging Edges: pale, epithelialization Drainage: serosanguinous Odor: none Periwound Skin: pale, fragile Pain: 6/10 during dressing removal Capillary refill-- brisk Photo: Please note photo is from care on 05/24 Wound Care: Cleansed with NS as tolerated by patient. Reapplied zinc cream to david wound, applied Hydrofera BlueReady dressing to wound bed, covered with ABD for comfort, secured with kerlix and tape. Education: Educated patient on changes and plan for home care, as discussed yesterday with present. Patient has no further questions at this time. Additional Note: This nurse spoke to Marcela at the [place] wound center where patient will be following up for ongoing wound care, likely only 1-2 times [place] [facility] [place]. Reviewed wound treatment plan and wound center will order wound supplies to be delivered to the homedirectly. Sent patient with wound supplies to get them through changes until they have follow up appointment at the clinic. Patient has made significant progress in wound healing and has a reduction in wound pain in the lasttwo weeks. Thank you for the opportunity to be a part of caring for this patient. Electronically signed by: Karen Pryor RN 05/27/2021 1:59 PM ari Darby LICSW - 05/26/2021 3:57 PM PDT SOCIAL WORK: PROGRESS NOTE Data: EMR reviewed. Pt is on day 40 for Problem List Items Addressed This Visit Digestive Dysphagia Relevant Orders Case Request (Completed) Surgical Pathology (Completed) Musculoskeletal * (Principal) Pressure injury of skin of right calf Relevant Orders MISC. TEST - (Completed) Culture, Deep Abscess Aerobic&Anaerobic w/gram stain (Completed) Other Visit Diagnoses Acute renal failure, unspecified acute renal failure type (CMS/HCC) - Primary Relevant Orders Ambulatory Referral to Cardiac Rehabilitation Hyperkalemia Sepsis due to skin infection ([facility]) Acute anemia Occult blood in stools Acute cystitis without hematuria Patient is not medically stable for discharge at this time. Per discussion with provider, discharge needs have not been identified. Social Work consults to coordinate these services have not been ordered by physician at this time. Pt wanting to go home and pt in agreement with that plan with outpt wound care through [facility] which they were doing prior to this admission. steam turbine assembler spoke with [facility] in regard to pt care plan and follow up appointments. Barriers to Discharge Include: Medical progression. Assessment: alert and oriented x4 Per PRECIPITATOR OPERATOR interactions, Physician Documentation and Nursing Documentation, patient has capacity for self care and has decisional capacity at this time. Plan: Anticipate patient to discharge to home via POV with outpt wound care follow up. PRECIPITATOR OPERATOR will continue to follow pt's clinical course. ERIN Winslow Rosio Pandya DO - 05/26/2021 3:44 PM PDT [facility] Progress Note Inpatient Primary [facility] Patient Name: Shirin Aguillon Date of : 1945 Age: 75 y.o. Code Status: Full Code Primary Care Physician: Rogelio Braga MD Admitting Provider: Ana Maria Narvaez MD Attending Provider: Denise Miller DO Admit Date: 04/15/2021 Date of Service: 05/26/2021 Hospital Day: 40 Assessment and Plan Shirin Aguillon is a 75 y.o. female anticoagulated with Eliquis??with a hx notable for type II diabetes mellitus, hypertension, hyperlipidemia, CKD, and rheumatoid arthritis??who presents to the ED??for evaluation of altered mental status and found to be in CAMILLE with hyperkalemia. Patient was treatedwith temporary hemodialysis and course of antibiotics for sepsis. Currently being treated for failure to thrive and deconditioning, autoimmune disease, bilateral lower extremity wounds, NSTEMI, esophageal stricture and Afib RVR. Nausea, not present on admission. Active. -Waxing and waning during this admission; previously responded to zofran and associated with GERD sx - Patient reported it typically occurs with breakfast then resolves, but it persistent the whole dayto the point that she was unable to take any pills. It was also refractory to zofran and promethazine - Try reglan, benadryl -Continue PPI Paroxysmal Atrial Fibrillation,??present on admission. Improving. -On diltiazem CD 240 mg daily at home, which was reduced to 120mg when amiodarone was started - Now on metoprolol XL 25 mg daily -Recurrence of RVR on 05/20 with brief CCU stay then resolved -RVR recurred on 05/22/21 with associated hypotension, transferred back to CCU, stabilized with [place] started on Amiodarone infusion - Amiodarone gtt to PO after ~24hrs/amio load - If pt becomes hypotensive again through amiodarone, plan to use Phenylephrine GTT & Cardiovertper Cardiology recommendations - Repeat limited Echo on 05/23 exhibited normal/stable EF, no acute changes - daily magnesium & replete prn Coronary Artery Disease s/p ANDREA to LAD, present on admission. Active. - EKG 05/15 showed diffuse T-wave inversions which were new, Trial of SL nitroglycerin significantly lowered patient's blood pressure. - Received Heparin infusion for about 36hrs until cardiac cath - Cardiology consulted; Cardiac Cath 05/17 resulted in ANDREA to LAD - Continue daily ASA, Plavix -Patient developed an episode of chest pain at 1am on 05/24; cardiology saw patient and offered to recath, which she declined, and recommended continuing current management Esophageal tear s/p balloon dilatation, present on admission. Active. Noted on EGD 05/20/2021, balloon dilatation performed, see GI note for full details -continue daily PPI, GI cocktail as needed -follow up surgical pathology -outpatient follow up with GI Hypotension, note present on admission. Improved and being monitored closely. - Associated with atrial fibrillation with RVR as above -stat 1 liter NS bolus with improvement -plan for phenylephrine gtt and cardioversion if recurs or becomes refractory Acute on chronic anemia,??present on admission. Stable. -iron profile is compatible with anemia of chronic disease. -acute drop in hemoglobin due to post-heart cath right groin hematoma -received 1 unit prbcs on 05/19 -recommend outpatient colonoscopy Right groin hematoma, not present on admission. resolved. -secondary to cardiac catheterization -pressure sandbag applied with stabilization of hematoma -eliquis has since been resumed Soft tissue ulcerated wounds of bilateral lower extremities, present on admission. Improved. 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 Patient reports she developed these wounds following an allergic reaction to TMP-SMX. She was followed by Rheumatology for this; previously on Xeljanz, Leflunomide and Sulfasalazine for Crohn's and seronegative RA. Followed by Dr Shepherd. Pt reports another [employer] sales consultant switched her to Prednisone daily however I am not able to view all of these records - s/p bilateral calf wound debridement per GS, Micro positive for light growth pseudomonas and zenaida albicans - continue wound care - continue daily prednisone - treatment of presumed autoimmune etiology and diabetes - [facility] Wound Biopsy pathology report exhibits nonspecific inflammation, can not rule out autoinflammatory disease. Will reach out to Dr Shepherd the pt's Sweet Potato Disintegrator to see if this changes plan of care at all for her Dysphagia, not present on admission. Improving. Reportedly has had dysphagia to solids for years, however it worsened acutely recently with significant nausea and indigestion -continue PPI and tums prn -s/p EGD as above with balloon dilatation. Found to have erosive gastritis. Inflammatory bowel disease and rheumatoid arthritis on prednisone therapy, present on admission. Active. -continue oral prednisone daily -previously on Xeljanz, Leflunomide and Sulfasalazine. Reportedly discontinued this recently for prednisone and also discontinued outpatient Cipro for recurrent UTis -discussed with Dr Shepherd Rheumatology 05/07, pt safe to resume & continue Sulfasalazine for Crohn's. Presumably the ulcers are from IBD however not safe to resume xeljanz and leflunomide due to infection -outpatient follow up with rheumatology Depression, not present on admission. Active. Unclear if this is acute on chronic, may be related to adjustment disorder due to prolonged hospitalization and difficulty with placement, separation from family, decreased functional status and need for increased care. - increased sertraline to 50mg 05/23 - continue PO levocarnitine supplement Weakness, Fatigue and Deconditioning, present on admission. Improving. -functional status prior to admission:??Ambulates with a walker, stair chair at home, few stairs on her own. -continue Physical therapy; recommending rehabilitation -up in chair for meals, ambulate TID when able Chronic kidney disease stage III, present on admission. Stable. Baseline Cr around 1.2-1.3 during this admission, previous baseline around 1.1 prior. Likely she is at a stable baseline -UA / urine protein creatinine ratio exhibited significant nephropathy-likely diabetic -Discontinued EMILY due to renal intolerance -Advised pt to drink >2.5L fluids daily Constipation, not present on admission. Resolved. Likely due to low mobility and depressed PO intake, opiates likely contributory pt has diarrhea from Crohns disease at baseline -continue daily bowel regimen (conservative), no fiber or laxatives due to crohn's disease Type 2 diabetes mellitus, present on admission. Chronic. - Hemoglobin A1c: 9.0 - Continue lantus 6 units nightly - Low dose insulin correction scale Decreased oral intake, not present on admission. Improved. Likely related to chronic disease (inflammatory), GERD and decreased appetite from acute illness -encourage food and fluid, no advance feeding interventions Hypothyroidism, present on admission. Chronic. -continue levothyroxine Respiratory distress, present on admission. Resolved. Metabolic acidosis with respiratory partial compensation, not present on admission. Resolved. CAMILLE, acute, present on admission. Resolved. Diarrhea, not present on admission, Resolved. Partly due to Crohn's Sepsis, acute, present on admission. Resolved. Body jerking,??present on admission. Resolved. Hyponatremia, present on admission. Resolved. Fluctuated as fluid status and renal function changed throughout hospital course. Hypokalemia with Hypomagnesemia, not present on admission. Resolved. Replete both electrolytes as needed. Likely secondary to diarrheal losses. Cystitis, present on admission. Resolved -completed antibiotics VTE Prophylaxis: Apixaban Code Status: Full code Disposition: Pending resolution of discharge planning issues as outlined below. Discharge planning issues: -patient lives with family on [facility] -there have been no accepting short term care facilities (SNF) -home health services are not available on [facility] -referral sent [place] [facility] [place] -patient and family are looking to relocate to [facility]; however, patient states this likely won't happen for a long time due to financial reasons -patient would like to go home with her , who says he can manage her wound care. He met with them today for training and plan to follow up at [facility] twice a week. Current Hospital Medications Allergies Allergies Allergen Reactions ??? Bactrim [Sulfamethoxazole-Trimethoprim] Swelling ??? Betadine [Povidone-Iodine] ??? Fish Derived ??? Iodine ??? Other [place] products ??? Shellfish Containing Products Medications Scheduled amiodarone, 400 mg, oral, BID apixaban, 5 mg, oral, BID atorvastatin, 40 mg, oral, Nightly clopidogreL, 75 mg, oral, Daily hydroCHLOROthiazide, 12.5 mg, oral, Daily insulin glargine, 6 Units, subcutaneous, Nightly insulin lispro, 0-5 Units, subcutaneous, Nightly insulin lispro, 0-6 Units, subcutaneous, TID with meals lactobacillus rhamnosus GG, 1 capsule, oral, Daily levOCARNitine, 500 mg, oral, Daily with dinner levothyroxine, 75 mcg, oral, q AM AC magnesium chloride, 1 tablet, oral, Daily with breakfast metoprolol succinate XL, 25 mg, oral, Daily miconazole, , Topical, BID pantoprazole, 40 mg, oral, q AM AC predniSONE, 5 mg, oral, Daily senna, 1 tablet, oral, BID sertraline, 50 mg, oral, Nightly sulfaSALAzine, 1,000 mg, oral, BID As needed ??? acetaminophen ??? calcium carbonate ??? dextrose 50% (D50W) ??? diazePAM ??? diphenhydrAMINE ??? diphenhydrAMINE ??? HYDROcodone-acetaminophen ??? HYDROmorphone ??? lidocaine ??? Insert peripheral IV AND lidocaine AND Maintain IV access AND Saline lock IV AND sodium chloride ??? Insert peripheral IV AND lidocaine AND Maintain IV access AND Saline lock IV AND sodium chloride ??? Insert peripheral IV AND lidocaine AND Maintain IV access AND Saline lock IV AND sodium chloride ??? metoclopramide ??? metoprolol ??? naloxone ??? nitroglycerin ??? ondansetron ??? ondansetron ??? ondansetron ODT ??? promethazine ??? [COMPLETED] Prepare/Crossmatch RBC: 1 Units AND [COMPLETED] Transfuse RBC: 1 Units AND [COMPLETED] Nursing communication: Ensure provider has obtained Informed Consent for Blood Transfusion AND Vital Signs AND sodium chloride AND [COMPLETED] Nursing Communication: Transfusion Reaction Management ??? [COMPLETED] Prepare/Crossmatch RBC: 1 Units AND [COMPLETED] Transfuse RBC: 1 Units AND [COMPLETED] Nursing communication: Ensure provider has obtained Informed Consent for Blood Transfusion AND Vital Signs AND sodium chloride AND [COMPLETED] Nursing Communication: Transfusion Reaction Management ??? sodium chloride Infusions Subjective Patient's Update Patient was complaining of nausea this morning, which has been intermittently present during this admission. She reports that usually is in the morning and responds to Zofran pretty quickly. However,it did not resolve and she was unable to keep down any of her medications today. We plan to discharge her today but this was unfortunately postponed given the severity of her nausea and inability to take medications. Interval Update No overnight events. Objective BP (!) 154/83 (BP Location: Right arm, Patient Position: Semi-Mims's) Pulse (!) 115 Temp 36.8 ??C (98.2 ??F) (Oral) Resp 20 Ht 1.524 m Wt 73 kg SpO2 98% BMI 31.43 kg/m?? Intake/Output Summary (Last 24 hours) at 05/26/2021 1544 Last data filed at 05/26/2021 1304 Gross per 24 hour Intake 220 ml Output 750 ml Net -530 ml Physical Exam Vitals and nursing note reviewed. Constitutional: General: She is not in acute distress. Appearance: She is obese. She is ill-appearing (chronically). HENT: Head: Normocephalic. Comments: Temporal wasting and alopecia Eyes: Extraocular Movements: Extraocular movements intact. Cardiovascular: Rate and Rhythm: Normal rate and regular rhythm. Pulses: Normal pulses. Heart sounds: No murmur heard. Pulmonary: Effort: Pulmonary effort is normal. No respiratory distress. Breath sounds: Normal breath sounds. No wheezing, rhonchi or rales. Abdominal: General: Abdomen is flat. There is no distension. Tenderness: There is no guarding. Musculoskeletal: General: Tenderness (to bilateral lower extremities) present. Normal range of motion. Skin: General: Skin is warm and dry. Coloration: Skin is pale. Skin is not jaundiced. Findings: Bruising present. Comments: Thin and fragile skin Neurological: Mental Status: She is alert. Mental status is at baseline. Motor: Weakness present. Psychiatric: Attention and Perception: Attention normal. Speech: Speech normal. Comments: Flat affect Labs and ECG Hematology Results from last 7 days Lab Units 05/26/21 0523 05/25/21 0420 05/24/21 0701 WBC AUTO x10e3/uL 7.3 7.8 7.0 HEMOGLOBIN g/dL 9.1* 9.3* 9.9* HEMATOCRIT % 29.7* 30.7* 32.3* MCV fL 84 85 85 PLATELETS AUTO x10e3/uL 247 255 260 Chemistries Results from last 7 days Lab Units 05/26/21 0523 05/25/21 0420 05/24/21 0701 05/23/21 0454 05/23/21 0454 05/22/21 0659 05/22/21 0659 SODIUM mmol/L 135 133* 133* < > 132* < > 134 POTASSIUM mmol/L 4.4 4.7 4.1 < > 4.2 < > 4.6 CHLORIDE mmol/L 104 102 100 < > 100 < > 101 CO2 mmol/L 22 24 25 < > 25 < > 25 BUN mg/dL 15.0 15.0 12.0 < > 13.0 < > 15.0 CREATININE mg/dL 1.33* 1.41* 1.43* < > 1.43* < > 1.49* GLUCOSE mg/dL 95 186* 175* < > 182* < > 110* CALCIUM, SERUM mg/dL 8.3* 8.3* 8.4* < > 8.3* < > 8.4* MAGNESIUM mg/dL 1.5* -- 2.0 -- 1.9 < > 1.9 AST U/L 14 -- -- -- 11 -- 17 ALT U/L 7 -- -- -- 6 -- 9 BILIRUBIN, DIRECT mg/dL -- -- -- -- -- -- <0.2 BILIRUBIN TOTAL mg/dL 0.2 -- -- -- 0.2 -- <0.2 ALBUMIN g/dL 2.6* -- -- -- 2.5* -- 2.8* TOTAL PROTEIN g/dL 4.6* -- -- -- 4.9* -- 5.1* < > = values in this interval not displayed. Estimated Creatinine Clearance: 33.6 mL/min (A) (by C-G formula based on SCr of 1.33 mg/dL (H)). Urinalysis Microbiology Urine culture Briesara Orozco 05/05 and 05/07 Diagnostic Imaging ECHOCARDIOGRAM LIMITED Interpretation Summary Limited Echo: 1) Normal left ventricular size and systolic f unction (EF 55-60%). 2) Subtle mid anterior and mid anterolateral wall hypokinesis present. Septal bounce present. 3) Compared to the Echo done 04/23/2021, no significant change when compared visually. Reading Physician:10:39 AM Results for orders placed during the hospital encounter of 04/15/21 SI STENT ANDREA - CORONARY Narrative PROCEDURE PERFORMED: 1. Percutaneous intervention on the left anterior descending. 2. Supervision for moderate sedation. Electronically signed by: Rosio Pandya DO 05/26/2021 at 3:44 PM Portions of today's documentation have been created with the assistance of voice recognition software. Therefore, it may contain anomalous punctuation, anomalous independent misrecognitions, word substitutions, insertions or omissions. Occasional wrong-word or phonetically similar substitutions may also occur, all due to the inherent limitations of voice recognition software. Attempts to correct the above have been made by Rosio Pandya DO but it is recommended that the chart be read carefullyto recognize, using context, where the substitutions may have occurred. Associated attestation - Denise Miller DO - 05/26/2021 4:13 PM PDT I saw and evaluated the patient, participating in the villarreal portions of the service. I reviewed the resident???s note. I agree with the resident???s findings and plan. Plan for discharge home with back to [facility] via water taxi; however, patient developed intractable nausea and was unable to orally take her medications. Continue antiemetics and monitorQT interval. Possible discharge tomorrow.Karen Pryor RN - 05/26/2021 3:32 PM PDT [facility] Inpatient Wound Care Pt Name/Age/: Shirin Aguillon 75 y.o. 1945 Med. Record #: [id number] Date of Admission: 04/15/2021 Reason for Admission: Pressure injury of skin of right calf Follow up visit for inpatient wound consult r/t family education Shirin Aguillon is a 75 y.o. female patient resting in bed. Patient has a past medical history ofAbdominal pain, Arthritis, Arthritis, rheumatoid (CMS/HCC), Chronic diarrhea, Delayed emergence fromgeneral anesthesia, Diabetes (CMS/HCC), Disorder, Gallbladder disease, H/O recurrent pneumonia, Hyper lipidemia, Hypertension, Kidney disease, Low back pain (ongoing), Migraine headache, Neuropathy, PONV (postoperative nausea and vomiting), Skin cancer, Thyroid disease, Tubular adenoma, UTI (urinary tract infection), and Weight loss, non-intentional. Education: Met with to discuss wound care. Provided hand out on wound care directions and discussed plan to follow up with outpatient wound center in [place]. states he is confident in his ability to provide good care, as he has done in the past. He is glad to follow with outpatient wound therapy. Additional Note: Will meet possibly tomorrow if patient discharges for additional questions and concerns. Electronically signed by: Karen Pryor RN 05/26/2021 3:32 PM Lucinda Zamarripa MD - 05/25/2021 7:01 PM PDT Subjective Patient ID: Shirin Aguillon is a 75 y.o. female that presents today for Chief Complaint Patient presents with ??? Altered Mental Status ??? Shortness of Breath HPI: Pt is a 75 yo woman with multiple CAD risk factors including DM (long standing insulin dependent)whohas been here since 04/15/2021. So this is hospital day 43 hospitalization. She was admitted for sepsis and associated AMS and CAMILLE (cr peaked at 4.8) ; in the course of hospitalization she was found to have multiple heart conditions including paroxysmal afib/rvr and NSTEMI with troponin elevation peaking at 0.1. Cath 05/17 showed 90% pLAD, otherwise no obstructive CAD; she underwent Xience ANDREA to pLAd. Anginal equivalent is chest pressure associated with palpitations. She has not had any more episodes of chest pain since most recent event 05/25/2021 at 1 am. ?? Her echo showed preserved EF with subtle anterior focal WMA's. Troponin T nadired at and was most recently 0.078 after chest pain episode. EKG remains abnormal with deep symmetric TWI In precordial leads. Past Medical History: Diagnosis Date ??? Abdominal pain ??? Arthritis ??? Arthritis, rheumatoid (CMS/HCC) ??? Chronic diarrhea ??? Delayed emergence from general anesthesia ??? Diabetes (CMS/HCC) ??? Disorder Nearly severed pinky finger ??? Gallbladder disease ??? H/O recurrent pneumonia ??? Hyperlipidemia ??? Hypertension ??? Kidney disease Kidney dysfunction ??? Low back pain ongoing ??? Migraine headache ??? Neuropathy ??? PONV (postoperative nausea and vomiting) ??? Skin cancer ??? Thyroid disease ??? Tubular adenoma Ileocecal valve tubular adenoma ??? UTI (urinary tract infection) ??? Weight loss, non-intentional Past Surgical History: Procedure Laterality Date ??? ABDOMINAL SURGERY ??? APPENDECTOMY 2016 along with colectomy ??? BACK SURGERY Major back surgery ??? CARPAL TUNNEL RELEASE ??? CHOLECYSTECTOMY ??? COLONOSCOPY 2 x ??? LAPAROSCOPIC ASSISSTED TOTAL COLECTOMY W/ J-POUCH Right 04/12/2017 ??? DC COLONOSCOPY W/BIOPSY SINGLE/MULTIPLE N/A 07/31/2020 Procedure: COLONOSCOPY; Surgeon: Mike Laguna MD; Location: [facility]; Service: Gastroenterology ??? DC DEBRIDEMENT, SKIN, SUB-Q TISSUE,=<20 SQ CM Bilateral 04/18/2021 Procedure: debridement of bilateral calf wound; Surgeon: Patria Cruz MD; Location: [facility] OR; Service: ENT ??? DC EDG BALLOON DILATION ESOPHAGUS <30 MM DIAM N/A 05/20/2021 Procedure: UPPER GASTROINTESTINAL ENDOSCOPY WITH BALLOON DILATION OF ESOPHAGUS; Surgeon: Mohsen Fair MD; Location: [facility] GI; Service: Gastroenterology ??? DC EDG TRANSORAL BIOPSY SINGLE/MULTIPLE N/A 07/31/2020 Procedure: EGD; Surgeon: Mike Laguna MD; Location: [facility] GI; Service: Gastroenterology ??? DC EDG TRANSORAL BIOPSY SINGLE/MULTIPLE N/A 05/20/2021 Procedure: EGD; Surgeon: Mohsen Fair MD; Location: [facility] GI; Service: Gastroenterology ??? SHOULDER SURGERY 2007 Shoulder repair ??? SPINAL FUSION Fusion, et al 4 procedures in one 2011 ??? TUBAL LIGATION 1976 Allergies Allergen Reactions ??? Bactrim [Sulfamethoxazole-Trimethoprim] Swelling ??? Betadine [Povidone-Iodine] ??? Fish Derived ??? Iodine ??? Other [place] products ??? Shellfish Containing Products Current Medication List Sig acetaminophen (TYLENOL) 500 mg tablet every 8 (eight) hours as needed. aspirin 81 mg EC tablet daily. atorvastatin (LIPITOR) 20 mg tablet Take 10 mg by mouth daily cholecalciferol, vitamin D3, 400 unit capsule 1 po qd cranberry 400 mg capsule 1 po bid cyclobenzaprine (FLEXERIL) 10 mg tablet Take 10 mg by mouth as needed diazePAM (VALIUM) 5 mg tablet Take 5 mg by mouth as needed for anxiety diltiazem CD (CARDIZEM CD) 240 mg 24 hr capsule Take 1 capsule (240 mg total) by mouth daily fenofibrate 150 mg capsule 1 capsule daily 160 mg gabapentin (NEURONTIN) 300 mg capsule 1 capsule daily. glipiZIDE (GLUCOTROL) 10 mg tablet Take 5 mg by mouth 2 (two) times a day before meals Lactobacillus acidophilus 10 billion cell capsule 1 po bid levothyroxine (SYNTHROID, LEVOTHROID) 25 mcg tablet Take 75 mcg by mouth daily metFORMIN (GLUCOPHAGE) 500 mg tablet every 12 hours. metroNIDAZOLE (FLAGYL) 500 mg tablet Take 0.5 tablets (250 mg total) by mouth 3 (three) times a day MULTIVIT WITH MINERALS/LUTEIN (MULTIVITAMIN 50 PLUS ORAL) 1 po daily oxybutynin (DITROPAN) 5 mg tablet every 12 hours. predniSONE (DELTASONE) 10 mg tablet Take as directed by traZODone (DESYREL) 50 mg tablet Facility-Administered Medications Sig acetaminophen (TYLENOL) suppository 120 mg 120 mg, rectal, Every 4 hours PRN, Administer if patientUNABLE to take oral product. Remove from package prior to use. amiodarone (PACERONE) tablet 400 mg 400 mg, oral, 2 times daily apixaban (ELIQUIS) tablet 5 mg 5 mg, oral, 2 times daily atorvastatin (LIPITOR) tablet 40 mg 40 mg, oral, Nightly calcium carbonate (TUMS) chewable tablet 500 mg 500 mg, oral, 3 times daily PRN, 500 mg tablet contains 200mg of elemental calcium clopidogreL (PLAVIX) tablet 75 mg 75 mg, oral, Daily dextrose 50 % in water (D50W) g injection 12.5-50 g 12.5-50 g, intravenous, As needed, For blood glucose less than 50 if the patient is NPO and/or non- responsive and an IV is in place.

Check BG every 15 minutes and repeat rescue therapy until BG greater than 100 ml/dL.
If BG less than 50 mg/dL OR hypoglycemia persists at 40 min, notify provider STAT to evaluate.

Once BG greater than 100 ml/dL, re-check BG in 1 hr to detect recurrent hypoglycemia.
Notify Provider of hypoglycemic incident and document hypoglycemia management. diazePAM (VALIUM) tablet 2 mg 2 mg, oral, Every 12 hours PRN diphenhydrAMINE (BENADRYL) capsule 50 mg 50 mg, oral, Every 6 hours PRN HYDROcodone-acetaminophen (NORCO) 5-325 mg 1-2 tablet 1-2 tablets, oral, Every 4 hours PRN HYDROmorphone (DILAUDID) injection 0.2-0.5 mg 0.2-0.5 mg, intravenous, Every 1 hour PRN, May give with wound dressing changes insulin glargine (LANTUS) injection 6 Units 6 Units, subcutaneous, Nightly, If patient is NPO, contact provider for adjustment. If type 2 diabetic and continuing home insulin regimen, consider decreasing basal insulin dosage on admission
Observe Hazardous Substance Precautions; Dispose of Product and Packaging in Black Waste Container insulin lispro injection 0-5 Units 0-5 Units, subcutaneous, Nightly, Observe Hazardous Substance Precautions; Dispose of Product and Packaging in Black Waste Container insulin lispro injection 0-6 Units 0-6 Units, subcutaneous, 3 times daily with meals, Low Dose Correctional Insulin
Observe Hazardous Substance Precautions; Dispose of Product and Packaging in Black Waste Container lactobacillus rhamnosus GG (CULTURELLE) 10 billion cell 1 capsule 1 capsule, oral, Daily levOCARNitine (L-CARNITINE) tablet 500 mg 500 mg, oral, Daily with dinner, To be taken with food. Don't give by itself (without food) levothyroxine (SYNTHROID) tablet 75 mcg 75 mcg, oral, Every morning before breakfast lidocaine (for HOWARD) jelly 1 application 1 application, Topical, As needed lidocaine (XYLOCAINE) 10 mg/mL (1 %) injection 1 mL 1 mL, infiltration, Once as needed Linked Group 1: And Linked Group Details lidocaine (XYLOCAINE) 10 mg/mL (1 %) injection 1 mL 1 mL, infiltration, Once as needed Linked Group 2: And Linked Group Details lidocaine (XYLOCAINE) 10 mg/mL (1 %) injection 1 mL 1 mL, infiltration, Once as needed Linked Group 3: And Linked Group Details magnesium chloride (SLOW-MAG) tablet 71.5 mg 71.5 mg, oral, Daily with breakfast magnesium sulfate 4 gram/100 mL (4 %) IVPB 4 g 4 g, intravenous, Once metoprolol (LOPRESSOR) injection 5 mg 5 mg, intravenous, Every 5 min PRN, For HR >120. Hold if SBP <100mmHg metoprolol succinate XL (TOPROL-XL) 24 hr tablet 25 mg 25 mg, oral, Daily miconazole (MICOTIN) 2 % powder Topical, 2 times daily, Apply to groin naloxone (NARCAN) injection 0.04 mg 0.04 mg, intravenous, As needed, Every 1 Minute PRN For Opiate Reversal
1. Draw up 0.4 mg (1 mL) in 10 mL syringe, and dilute with 9 mL of saline for an naloxone concentration of 0.04 mg/mL.
2. Give 0.04 mg (1 mL) IV push flushing solution into vein and repeat every min until resp rate greater than 10 per min and level of sedation improved.
3. Notify Provider STAT. nitroglycerin (NITROSTAT) SL tablet 0.4 mg 0.4 mg, sublingual, Every 5 min PRN, May administer up to 3 doses per episode.
Fall Risk Category 4 ondansetron (ZOFRAN) 4 mg/5 mL solution 4 mg 4 mg, oral, Every 8 hours PRN ondansetron (ZOFRAN) injection 4 mg 4 mg, intravenous, Every 8 hours PRN ondansetron ODT (ZOFRAN-ODT) disintegrating tablet 4 mg 4 mg, oral, Every 8 hours PRN pantoprazole (PROTONIX) EC tablet 40 mg 40 mg, oral, Every morning before breakfast, Do not crush or chew. predniSONE (DELTASONE) tablet 5 mg 5 mg, oral, Daily promethazine (PHENERGAN) 6.25 mg in sodium chloride (NS) 0.9 % 50 mL (0.125 mg/mL) IVPB 6.25 mg, intravenous, Every 6 hours PRN @ 100 mL/hr senna (SENOKOT) tablet 8.6 mg 8.6 mg, oral, 2 times daily, Hold if >1 bm daily sertraline (ZOLOFT) tablet 50 mg 50 mg, oral, Nightly sodium chloride (NS) 0.9 % infusion 250 mL 250 mL, intravenous, As needed Linked Group 4: And Linked Group Details sodium chloride (NS) 0.9 % infusion 250 mL 250 mL, intravenous, As needed Linked Group 5: And Linked Group Details sodium chloride 0.9 % flush 10 mL 10 mL, intravenous, As needed Linked Group 1: And Linked Group Details sodium chloride 0.9 % flush 10 mL 10 mL, intravenous, As needed Linked Group 2: And Linked Group Details sodium chloride 0.9 % flush 10 mL 10 mL, intravenous, As needed Linked Group 3: And Linked Group Details sodium chloride 0.9 % flush 20 mL 20 mL, intravenous, As needed sulfaSALAzine (AZULFIDINE) tablet 1,000 mg 1,000 mg, oral, 2 times daily bp 144/84 hr 68 bpm Physical Exam Constitutional WN WD in NAD Mouth/Throat No thrush Eyes No scleral icterus Neck Supple no lymphadenopathy and no carotid bruit Cardiovascular Normal s1 and s2, no m/r/g Pulmonary/Chest cta anteriorly Abdominal Soft + bs no HSM Musculoskeletal No obvious musculoskeletal abnormalities Vascular Intact radial pulses, carotid pulses Neurological No apparent focal neurologic findings Skin No rashes or lesions Patient Active Problem List Diagnosis ??? Seronegative rheumatoid arthritis of multiple sites (CMS/HCC) ??? Osteoarthropathy ??? Type II diabetes mellitus with complication (CMS/HCC) ??? Renal insufficiency ??? Grief ??? Psoriatic arthritis (CMS/HCC) ??? Abdominal pain ??? Functional diarrhea ??? Nausea and vomiting ??? Excessive body weight loss ??? Pressure injury of skin of right calf ??? Unstable angina (CMS/HCC) ??? Dysphagia LABORATORY AND RADIOLOGY REVIEW Results from last 7 days Lab Units 05/26/21 0523 05/25/21 0420 05/24/21 0701 WBC AUTO x10e3/uL 7.3 7.8 7.0 HEMOGLOBIN g/dL 9.1* 9.3* 9.9* HEMATOCRIT % 29.7* 30.7* 32.3* PLATELETS AUTO x10e3/uL 247 255 260 Results from last 7 days Lab Units 05/26/21 0523 05/25/21 0420 05/24/21 0701 05/23/21 0454 05/23/21 0454 SODIUM mmol/L 135 133* 133* < > 132* POTASSIUM mmol/L 4.4 4.7 4.1 < > 4.2 CHLORIDE mmol/L 104 102 100 < > 100 CO2 mmol/L 22 24 25 < > 25 BUN mg/dL 15.0 15.0 12.0 < > 13.0 CREATININE mg/dL 1.33* 1.41* 1.43* < > 1.43* GLUCOSE mg/dL 95 186* 175* < > 182* MAGNESIUM mg/dL 1.5* -- 2.0 -- 1.9 < > = values in this interval not displayed. Results from last 7 days Lab Units 05/26/21 0523 05/23/21 0454 05/22/21 0659 BILIRUBIN TOTAL mg/dL 0.2 0.2 <0.2 BILIRUBIN, DIRECT mg/dL -- -- <0.2 Results from last 7 days Lab Units 05/20/21 0544 INR 1.1 Results from last 7 days Lab Units 05/24/21 1445 05/24/21 0701 05/21/21 0116 TROPONINT ug/L 0.071* 0.078* 0.069* Assessment/Plan Assessment/Plan Comments: Pt reported brief episodes of chest pain >24 hours ago associated with palpitations without st changes. EKG is stable with deep symmetric TWI. There has not been any troponin bump or exertional component yesterday while walking around the page. She has multiple comorbid conditions including Crohn's, DM, leg wounds and anxiety. I recommend continuing current meds . It is unlikely that chest pain episode (brief, resolved with dilaudid) is due to another plaque rupture or acute instent thrombosis. ?? Stent management - continue plavix; off asa due to needing eliquis for paf ?? paf - no recurrence yesterday. I carefully reviewed tele. Continue amiodarone and Eliquis. recurrence of RVR on 05/20 with brief CCU stay then resolved, which is why she was started on amiodarone. Currently on day 3 ofPO amiodarone load 400 mg po bid. Last day of load is 05/26 at which point amiodarone can be switched to 200 mg daily discontinue dilt due to polypharmacy. Continue amiodarone. ?? HL - continue lipitor 40 mg daily HTN - uncontrolled; add low dose thiazide diuretic hydrochlorothiazide 12.5 mg daily Electronically signed by Lucinda Bahena MD 05/26/2021 9:01 AM [address] - 05/25/2021 10:30 AM PDT NUTRITION FOLLOW UP: ASSESS: 75 yo F admitted for sepsis and CAMILLE with hyperkalemia. Urine output improved, dialysis beingheld per notes. Pt s/p debridement of bilateral calf wound 04/18. Pt had a prolonged NPO status so Dobhoff was placed 04/22, TF was tolerated at goal. Pt pulled out NGT 04/25, tube feeds off. Diet advanced per ST 04/26. PO 25-75% x 2-3 days, noted improvement with family at bedside; MD notes indicate no advance feeding interventions with decreased oral intake (04/30). RD Spoke with pt 05/07 afternoon, states that she cannot have Ensure because she is allergic to it. She also reported that she does not like the Sami. Pt was transferred to CCU 05/21 due to hypotension. s/p EGD with esophageal dilation 05/20. She is now on a Cardiac diet, PO intake has improved to 75-100% PMHX: Arthritis, T2DM, PNA, HLD, HTN, kidney disease, UTI LABS: reviewed. Na 131, Bone Char Operator 1.41, Glu 186, Ca 8.3. MEDS: Insulin, colace, magnesium chloride, senna, lactobacillus, prednisone GI: BM 05/25 SKIN: ulcer on R& L calf, stg 2 PI on coccyx CURRENT WT: 73 kg ( 05/24); BMI 31.43 kg/m2, IBW: 45.5 kg, admit wt: 72.4kg DIET: Cardiac, PO 75-100% (SHELLFISH ALLERGY) ESTIMATED NEEDS: CAMILLE, BMI, wounds Calories: 2007-3543 kcal/day (20-25 kcal/kg BW) Protein: 55-70 g/day (1.0-1.2 g/kg IBW) Fluids: 2125-2550ml/day (25-30 ml/kg) NUTRITION DIAGNOSIS: 1) Inadequate oral intake related to decreased ability to consume sufficient energy as evidenced by current NPO status.--IMPROVING 2) Increased kcal/pro needs related to increased nutrient demand as evidence by pt with multiple pressure injuries. --PERSISTS 3) Chew/swallow difficulty due to AMS as evidenced by modified diet texture per AU PAIR.--IMPROVING NUTRITION INTERVENTION: 1) PO intake improving. Continue to encourage PO intake. 2) Pt reported that she does not like Sami at all and had two full cups of it on her bedside table.Will cancel Sami order. 3) Diabetes ed completed 05/10. MONITOR/EVALUATE: PO intake, diet tolerance, GI, wounds, labs, POC, nutrition status. Follow per moderate nutrition risk guidelines. Rosio Red DO - 05/25/2021 6:54 AM PDT [facility] Progress Note Inpatient Primary Care [facility] Patient Name: Shirin Aguillon Date of : 1945 Age: 75 y.o. Code Status: Full Code Primary Care Physician: Rogelio Braga MD Admitting Provider: Ana Maria Narvaez MD Attending Provider: Denise Miller DO Admit Date: 04/15/2021 Date of Service: 05/25/2021 Hospital Day: 39 Assessment and Plan Shirin Aguillon is a 75 y.o. female anticoagulated with Eliquis??with a hx notable for type II diabetes mellitus, hypertension, hyperlipidemia, CKD, and rheumatoid arthritis??who presents to the ED??for evaluation of altered mental status and found to be in CAMILLE with hyperkalemia. Patient was treatedwith temporary hemodialysis and course of antibiotics for sepsis. Currently being treated for failure to thrive and deconditioning, autoimmune disease, bilateral lower extremity wounds, NSTEMI, esophageal stricture and Afib RVR. Today's Plan: -Continue oral loading dose of amiodarone -Social work will reach out to regarding feasibility of him picking her up tomorrow. Assuming this is possible, we will plan for wound care to meet with him just prior to discharge to educate regarding wound care needs. -Continue to work with physical therapy Paroxysmal Atrial Fibrillation,??present on admission. Improving. -On diltiazem CD 240 mg daily at home, which was reduced to 120mg when amiodarone was started - Now on metoprolol XL 25 mg daily -Recurrence of RVR on 05/20 with brief CCU stay then resolved -RVR recurred on 05/22/21 with associated hypotension, transferred back to CCU, stabilized with [place] started on Amiodarone infusion - Amiodarone gtt to PO after ~24hrs/amio load - If pt becomes hypotensive again through amiodarone, plan to use Phenylephrine GTT & Cardiovertper Cardiology recommendations - Repeat limited Echo on 05/23 exhibited normal/stable EF, no acute changes - daily magnesium & replete prn Coronary Artery Disease s/p ANDREA to LAD, present on admission. Active. - EKG 05/15 showed diffuse T-wave inversions which were new, Trial of SL nitroglycerin significantly lowered patient's blood pressure. - Received Heparin infusion for about 36hrs until cardiac cath - Cardiology consulted; Cardiac Cath 05/17 resulted in ANDREA to LAD - Continue daily ASA, Plavix -Patient developed an episode of chest pain at 1am on 05/24; cardiology saw patient and offered to recath, which she declined, and recommended continuing current management Esophageal tear s/p balloon dilatation, present on admission. Active. Noted on EGD 05/20/2021, balloon dilatation performed, see GI note for full details -continue daily PPI, GI cocktail as needed -follow up surgical pathology -outpatient follow up with GI Hypotension, note present on admission. Improved and being monitored closely. - Associated with atrial fibrillation with RVR as above -stat 1 liter NS bolus with improvement -plan for phenylephrine gtt and cardioversion if recurs or becomes refractory Acute on chronic anemia,??present on admission. Stable. -iron profile is compatible with anemia of chronic disease. -acute drop in hemoglobin due to post-heart cath right groin hematoma -received 1 unit prbcs on 05/19 -recommend outpatient colonoscopy Right groin hematoma, not present on admission. resolved. -secondary to cardiac catheterization -pressure sandbag applied with stabilization of hematoma -eliquis has since been resumed Soft tissue ulcerated wounds of bilateral lower extremities, present on admission. Improved. 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 Patient reports she developed these wounds following an allergic reaction to TMP-SMX. She was followed by Rheumatology for this; previously on Xeljanz, Leflunomide and Sulfasalazine for Crohn's and seronegative RA. Followed by Dr Shepherd. Pt reports another [employer] sales consultant switched her to Prednisone daily however I am not able to view all of these records - s/p bilateral calf wound debridement per GS, Micro positive for light growth pseudomonas and zenaida albicans - continue wound care - continue daily prednisone - treatment of presumed autoimmune etiology and diabetes - [facility] Wound Biopsy pathology report exhibits nonspecific inflammation, can not rule out autoinflammatory disease. Will reach out to Dr Shepherd the pt's Sweet Potato Disintegrator to see if this changes plan of care at all for her Dysphagia, not present on admission. Improving. Reportedly has had dysphagia to solids for years, however it worsened acutely recently with significant nausea and indigestion -continue PPI and tums prn -s/p EGD as above with balloon dilatation. Found to have erosive gastritis. Nausea, not present on admission. Improved. Waxing and waning, amenable to zofran, associated with GERD sx -continue antiemetics, PPI Inflammatory bowel disease and rheumatoid arthritis on prednisone therapy, present on admission. Active. -continue oral prednisone daily -previously on Xeljanz, Leflunomide and Sulfasalazine. Reportedly discontinued this recently for prednisone and also discontinued outpatient Cipro for recurrent UTis -discussed with Dr Shepherd Rheumatology 05/07, pt safe to resume & continue Sulfasalazine for Crohn's. Presumably the ulcers are from IBD however not safe to resume xeljanz and leflunomide due to infection -outpatient follow up with rheumatology Depression, not present on admission. Active. Unclear if this is acute on chronic, may be related to adjustment disorder due to prolonged hospitalization and difficulty with placement, separation from family, decreased functional status and need for increased care. - increased sertraline to 50mg 05/23 - continue PO levocarnitine supplement Weakness, Fatigue and Deconditioning, present on admission. Improving. -functional status prior to admission:??Ambulates with a walker, stair chair at home, few stairs on her own. -continue Physical therapy; recommending rehabilitation -up in chair for meals, ambulate TID when able Chronic kidney disease stage III, present on admission. Stable. Baseline Cr around 1.2-1.3 during this admission, previous baseline around 1.1 prior. Likely she is at a stable baseline -UA / urine protein creatinine ratio exhibited significant nephropathy-likely diabetic -Discontinued EMILY due to renal intolerance -Advised pt to drink >2.5L fluids daily Constipation, not present on admission. Resolved. Likely due to low mobility and depressed PO intake, opiates likely contributory pt has diarrhea from Crohns disease at baseline -continue daily bowel regimen (conservative), no fiber or laxatives due to crohn's disease Type 2 diabetes mellitus, present on admission. Chronic. - Hemoglobin A1c: 9.0 - Continue lantus 6 units nightly - Low dose insulin correction scale Decreased oral intake, not present on admission. Improved. Likely related to chronic disease (inflammatory), GERD and decreased appetite from acute illness -encourage food and fluid, no advance feeding interventions Hypothyroidism, present on admission. Chronic. -continue levothyroxine Respiratory distress, present on admission. Resolved. Metabolic acidosis with respiratory partial compensation, not present on admission. Resolved. CAMILLE, acute, present on admission. Resolved. Diarrhea, not present on admission, Resolved. Partly due to Crohn's Sepsis, acute, present on admission. Resolved. Body jerking,??present on admission. Resolved. Hyponatremia, present on admission. Resolved. Fluctuated as fluid status and renal function changed throughout hospital course. Hypokalemia with Hypomagnesemia, not present on admission. Resolved. Replete both electrolytes as needed. Likely secondary to diarrheal losses. Cystitis, present on admission. Resolved -completed antibiotics VTE Prophylaxis: Apixaban Code Status: Full code Disposition: Pending resolution of discharge planning issues as outlined below. Discharge planning issues: -patient lives with family on [facility] -there have been no accepting short term care facilities (SNF) -home health services are not available on [facility] -ref[place] sent [place] [facility] -patient and family are looking to relocate to [facility]; however, patient states this likely won't happen for a long time due to financial reasons -patient would like to go home with her , who says he can manage her wound care Current Hospital Medications Allergies Allergies Allergen Reactions ??? Bactrim [Sulfamethoxazole-Trimethoprim] Swelling ??? Betadine [Povidone-Iodine] ??? Fish Derived ??? Iodine ??? Other [place] products ??? Shellfish Containing Products Medications Scheduled amiodarone, 400 mg, oral, BID apixaban, 5 mg, oral, BID atorvastatin, 40 mg, oral, Nightly clopidogreL, 75 mg, oral, Daily insulin glargine, 6 Units, subcutaneous, Nightly insulin lispro, 0-5 Units, subcutaneous, Nightly insulin lispro, 0-6 Units, subcutaneous, TID with meals lactobacillus rhamnosus GG, 1 capsule, oral, Daily levOCARNitine, 500 mg, oral, Daily with dinner levothyroxine, 75 mcg, oral, q AM AC magnesium chloride, 1 tablet, oral, Daily with breakfast metoprolol succinate XL, 25 mg, oral, Daily miconazole, , Topical, BID pantoprazole, 40 mg, oral, q AM AC predniSONE, 5 mg, oral, Daily senna, 1 tablet, oral, BID sertraline, 50 mg, oral, Nightly sulfaSALAzine, 1,000 mg, oral, BID As needed ??? acetaminophen ??? calcium carbonate ??? dextrose 50% (D50W) ??? diazePAM ??? diphenhydrAMINE ??? HYDROcodone-acetaminophen ??? HYDROmorphone ??? lidocaine ??? Insert peripheral IV AND lidocaine AND Maintain IV access AND Saline lock IV AND sodium chloride ??? Insert peripheral IV AND lidocaine AND Maintain IV access AND Saline lock IV AND sodium chloride ??? Insert peripheral IV AND lidocaine AND Maintain IV access AND Saline lock IV AND sodium chloride ??? metoprolol ??? naloxone ??? nitroglycerin ??? ondansetron ??? ondansetron ??? ondansetron ODT ??? promethazine ??? [COMPLETED] Prepare/Crossmatch RBC: 1 Units AND [COMPLETED] Transfuse RBC: 1 Units AND [COMPLETED] Nursing communication: Ensure provider has obtained Informed Consent for Blood Transfusion AND Vital Signs AND sodium chloride AND [COMPLETED] Nursing Communication: Transfusion Reaction Management ??? [COMPLETED] Prepare/Crossmatch RBC: 1 Units AND [COMPLETED] Transfuse RBC: 1 Units AND [COMPLETED] Nursing communication: Ensure provider has obtained Informed Consent for Blood Transfusion AND Vital Signs AND sodium chloride AND [COMPLETED] Nursing Communication: Transfusion Reaction Management ??? sodium chloride Infusions Subjective Patient's Update Patient says that she is doing okay today and denies any recurrence of chest pain or shortness of breathe. We discussed the plan to try and get her home tomorrow, which she wants to do but is apprehensive about. We ensured we will set up good follow up and encouraged [place]. Interval Update No overnight events. Objective BP 127/82 (BP Location: Right arm, Patient Position: Lying) Pulse 66 Temp 36.7 ??C (98.1 ??F) (Oral) Resp 18 Ht 1.524 m Wt 73 kg SpO2 94% BMI 31.43 kg/m?? Intake/Output Summary (Last 24 hours) at 05/25/2021 0654 Last data filed at 05/24/2021 1803 Gross per 24 hour Intake 920 ml Output 600 ml Net 320 ml Physical Exam Vitals and nursing note reviewed. Constitutional: General: She is not in acute distress. Appearance: She is obese. She is ill-appearing (chronically). HENT: Head: Normocephalic. Comments: Temporal wasting and alopecia Eyes: Extraocular Movements: Extraocular movements intact. Cardiovascular: Rate and Rhythm: Normal rate and regular rhythm. Pulses: Normal pulses. Heart sounds: No murmur heard. Pulmonary: Effort: Pulmonary effort is normal. No respiratory distress. Breath sounds: Normal breath sounds. No wheezing, rhonchi or rales. Abdominal: General: Abdomen is flat. There is no distension. Tenderness: There is no guarding. Musculoskeletal: General: Tenderness (to bilateral lower extremities) present. Normal range of motion. Skin: General: Skin is warm and dry. Coloration: Skin is pale. Skin is not jaundiced. Findings: Bruising present. Comments: Thin and fragile skin Neurological: Mental Status: She is alert. Mental status is at baseline. Motor: Weakness present. Psychiatric: Attention and Perception: Attention normal. Speech: Speech normal. Comments: Flat affect Labs and ECG Hematology Results from last 7 days Lab Units 05/25/21 0420 05/24/21 0701 05/23/21 0454 WBC AUTO x10e3/uL 7.8 7.0 7.1 HEMOGLOBIN g/dL 9.3* 9.9* 9.7* HEMATOCRIT % 30.7* 32.3* 31.9* MCV fL 85 85 84 PLATELETS AUTO x10e3/uL 255 260 276 Chemistries Results from last 7 days Lab Units 05/25/21 0420 05/24/21 0701 05/23/21 0454 05/22/21 0659 05/22/21 0659 SODIUM mmol/L 133* 133* 132* < > 134 POTASSIUM mmol/L 4.7 4.1 4.2 < > 4.6 CHLORIDE mmol/L 102 100 100 < > 101 CO2 mmol/L 24 25 25 < > 25 BUN mg/dL 15.0 12.0 13.0 < > 15.0 CREATININE mg/dL 1.41* 1.43* 1.43* < > 1.49* GLUCOSE mg/dL 186* 175* 182* < > 110* CALCIUM, SERUM mg/dL 8.3* 8.4* 8.3* < > 8.4* MAGNESIUM mg/dL -- 2.0 1.9 -- 1.9 AST U/L -- -- 11 -- 17 ALT U/L -- -- 6 -- 9 BILIRUBIN, DIRECT mg/dL -- -- -- -- <0.2 BILIRUBIN TOTAL mg/dL -- -- 0.2 -- <0.2 ALBUMIN g/dL -- -- 2.5* -- 2.8* TOTAL PROTEIN g/dL -- -- 4.9* -- 5.1* < > = values in this interval not displayed. Estimated Creatinine Clearance: 31.7 mL/min (A) (by C-G formula based on SCr of 1.41 mg/dL (H)). Urinalysis Microbiology Urine culture Hafnia Alvei 05/05 and 05/07 Diagnostic Imaging ECHOCARDIOGRAM LIMITED Interpretation Summary Limited Echo: 1) Normal left ventricular size and systolic f unction (EF 55-60%). 2) Subtle mid anterior and mid anterolateral wall hypokinesis present. Septal bounce present. 3) Compared to the Echo done 04/23/2021, no significant change when compared visually. Reading Physician:10:39 AM Results for orders placed during the hospital encounter of 04/15/21 SI STENT ANDREA - CORONARY Narrative PROCEDURE PERFORMED: 1. Percutaneous intervention on the left anterior descending. 2. Supervision for moderate sedation. Electronically signed by: Rosio Pandya DO 05/25/2021 at 6:54 AM Portions of today's documentation have been created with the assistance of voice recognition software. Therefore, it may contain anomalous punctuation, anomalous independent misrecognitions, word substitutions, insertions or omissions. Occasional wrong-word or phonetically similar substitutions may also occur, all due to the inherent limitations of voice recognition software. Attempts to correct the above have been made by Rosio Pandya DO but it is recommended that the chart be read carefullyto recognize, using context, where the substitutions may have occurred. Associated attestation - Denise Miller DO - 05/25/2021 1:45 PM PDT I saw and evaluated the patient, participating in the villarreal portions of the service. I reviewed the resident???s note. I agree with the resident???s findings and plan.Lucinda Bahena MD - 05/24/2021 4:33 PM PDT Subjective Patient ID: Shirin Aguillon is a 75 y.o. female that presents today for Chief Complaint Patient presents with ??? Altered Mental Status ??? Shortness of Breath HPI: Pt is a 75 yo woman with multiple CAD risk factors including DM (long standing insulin dependent)whohas been here since 04/15/2021. So this is hospital day 42 hospitalization. She was admitted for sepsis and associated AMS and CAMILLE (cr peaked at 4.8) ; in the course of hospitalization she was found to have multiple heart conditions including paroxysmal afib/rvr nd troponin elevation peaking at 0.1. Cath 05/17 showed 90% pLAD, otherwise no obstructive CAD; she underwent Xience ANDREA to pLAd. Anginal equivalent is chest pressure associated with palpitations. She had a similar episode last night. Her echo showed preserved EF with subtle anterior focal WMA's. Troponin T nadired at and was most recently 0.078 after chest pain episode. Past Medical History: Diagnosis Date ??? Abdominal pain ??? Arthritis ??? Arthritis, rheumatoid (CMS/HCC) ??? Chronic diarrhea ??? Delayed emergence from general anesthesia ??? Diabetes (CMS/HCC) ??? Disorder Nearly severed pinky finger ??? Gallbladder disease ??? H/O recurrent pneumonia ??? Hyperlipidemia ??? Hypertension ??? Kidney disease Kidney dysfunction ??? Low back pain ongoing ??? Migraine headache ??? Neuropathy ??? PONV (postoperative nausea and vomiting) ??? Skin cancer ??? Thyroid disease ??? Tubular adenoma Ileocecal valve tubular adenoma ??? UTI (urinary tract infection) ??? Weight loss, non-intentional Past Surgical History: Procedure Laterality Date ??? ABDOMINAL SURGERY ??? APPENDECTOMY 2016 along with colectomy ??? BACK SURGERY Major back surgery ??? CARPAL TUNNEL RELEASE ??? CHOLECYSTECTOMY ??? COLONOSCOPY 2 x ??? LAPAROSCOPIC ASSISSTED TOTAL COLECTOMY W/ J-POUCH Right 04/12/2017 ??? DC COLONOSCOPY W/BIOPSY SINGLE/MULTIPLE N/A 07/31/2020 Procedure: COLONOSCOPY; Surgeon: Mike Laguna MD; Location: [facility] GI; Service: Gastroenterology ??? DC DEBRIDEMENT, SKIN, SUB-Q TISSUE,=<20 SQ CM Bilateral 04/18/2021 Procedure: debridement of bilateral calf wound; Surgeon: Patria Cruz MD; Location: [facility] OR; Service: ENT ??? DC EDG BALLOON DILATION ESOPHAGUS <30 MM DIAM N/A 05/20/2021 Procedure: UPPER GASTROINTESTINAL ENDOSCOPY WITH BALLOON DILATION OF ESOPHAGUS; Surgeon: Mohsen Fair MD; Location: [facility] GI; Service: Gastroenterology ??? DC EDG TRANSORAL BIOPSY SINGLE/MULTIPLE N/A 07/31/2020 Procedure: EGD; Surgeon: Mike Laguna MD; Location: [facility] GI; Service: Gastroenterology ??? DC EDG TRANSORAL BIOPSY SINGLE/MULTIPLE N/A 05/20/2021 Procedure: EGD; Surgeon: Mohsen Fair MD; Location: [facility] GI; Service: Gastroenterology ??? SHOULDER SURGERY 2008 Shoulder repair ??? SPINAL FUSION Fusion, et al 4 procedures in one 2011 ??? TUBAL LIGATION 1977 Allergies Allergen Reactions ??? Bactrim [Sulfamethoxazole-Trimethoprim] Swelling ??? Betadine [Povidone-Iodine] ??? Fish Derived ??? Iodine ??? Other [place] products ??? Shellfish Containing Products Current Medication List Sig acetaminophen (TYLENOL) 500 mg tablet every 8 (eight) hours as needed. aspirin 81 mg EC tablet daily. atorvastatin (LIPITOR) 20 mg tablet Take 10 mg by mouth daily cholecalciferol, vitamin D3, 400 unit capsule 1 po qd cranberry 400 mg capsule 1 po bid cyclobenzaprine (FLEXERIL) 10 mg tablet Take 10 mg by mouth as needed diazePAM (VALIUM) 5 mg tablet Take 5 mg by mouth as needed for anxiety diltiazem CD (CARDIZEM CD) 240 mg 24 hr capsule Take 1 capsule (240 mg total) by mouth daily fenofibrate 150 mg capsule 1 capsule daily 160 mg gabapentin (NEURONTIN) 300 mg capsule 1 capsule daily. glipiZIDE (GLUCOTROL) 10 mg tablet Take 5 mg by mouth 2 (two) times a day before meals Lactobacillus acidophilus 10 billion cell capsule 1 po bid levothyroxine (SYNTHROID, LEVOTHROID) 25 mcg tablet Take 75 mcg by mouth daily metFORMIN (GLUCOPHAGE) 500 mg tablet every 12 hours. metroNIDAZOLE (FLAGYL) 500 mg tablet Take 0.5 tablets (250 mg total) by mouth 3 (three) times a day MULTIVIT WITH MINERALS/LUTEIN (MULTIVITAMIN 50 PLUS ORAL) 1 po daily oxybutynin (DITROPAN) 5 mg tablet every 12 hours. predniSONE (DELTASONE) 10 mg tablet Take as directed by traZODone (DESYREL) 50 mg tablet Facility-Administered Medications Sig acetaminophen (TYLENOL) suppository 120 mg 120 mg, rectal, Every 4 hours PRN, Administer if patientUNABLE to take oral product. Remove from package prior to use. amiodarone (PACERONE) tablet 400 mg 400 mg, oral, 2 times daily amiodarone 450 mg in dextrose (O7H-UZSHC) 250 mL (1.8 mg/mL) IV infusion 0.5-1 mg/min (0.5-1 mg/min), intravenous, Titrated @ 16.67-33.33 mL/hr, Loading Dose: 150-450 mg (see AHA guidelines)
Initial infusion rate: 1 mg/min (33.3mL/hr) x6 hr
Maintenance infusion rate: 0.5 mg/min (16.7 mL/hr)
Use non-DEHP tubing and a 0.2 mcg filter for infusion. Bolus by IV push with undiluted drug in unstable arrhythmias.
apixaban (ELIQUIS) tablet 5 mg 5 mg, oral, 2 times daily atorvastatin (LIPITOR) tablet 40 mg 40 mg, oral, Nightly calcium carbonate (TUMS) chewable tablet 500 mg 500 mg, oral, 3 times daily PRN, 500 mg tablet contains 200mg of elemental calcium clopidogreL (PLAVIX) tablet 75 mg 75 mg, oral, Daily dextrose 50 % in water (D50W) g injection 12.5-50 g 12.5-50 g, intravenous, As needed, For blood glucose less than 50 if the patient is NPO and/or non- responsive and an IV is in place.

Check BG every 15 minutes and repeat rescue therapy until BG greater than 100 ml/dL.
If BG less than 50 mg/dL OR hypoglycemia persists at 40 min, notify provider STAT to evaluate.

Once BG greater than 100 ml/dL, re-check BG in 1 hr to detect recurrent hypoglycemia.
Notify Provider of hypoglycemic incident and document hypoglycemia management. diazePAM (VALIUM) tablet 2 mg 2 mg, oral, Every 12 hours PRN diltiazem CD (CARDIZEM CD) 24 hr capsule 120 mg 120 mg, oral, Daily diphenhydrAMINE (BENADRYL) capsule 50 mg 50 mg, oral, Every 6 hours PRN HYDROcodone-acetaminophen (NORCO) 5-325 mg 1-2 tablet 1-2 tablets, oral, Every 4 hours PRN HYDROmorphone (DILAUDID) injection 0.2-0.5 mg 0.2-0.5 mg, intravenous, Every 1 hour PRN, May give with wound dressing changes insulin glargine (LANTUS) injection 6 Units 6 Units, subcutaneous, Nightly, If patient is NPO, contact provider for adjustment. If type 2 diabetic and continuing home insulin regimen, consider decreasing basal insulin dosage on admission
Observe Hazardous Substance Precautions; Dispose of Product and Packaging in Black Waste Container insulin lispro injection 0-5 Units 0-5 Units, subcutaneous, Nightly, Observe Hazardous Substance Precautions; Dispose of Product and Packaging in Black Waste Container insulin lispro injection 0-6 Units 0-6 Units, subcutaneous, 3 times daily with meals, Low Dose Correctional Insulin
Observe Hazardous Substance Precautions; Dispose of Product and Packaging in Black Waste Container lactobacillus rhamnosus GG (CULTURELLE) 10 billion cell 1 capsule 1 capsule, oral, Daily levOCARNitine (L-CARNITINE) tablet 500 mg 500 mg, oral, Daily with dinner, To be taken with food. Don't give by itself (without food) levothyroxine (SYNTHROID) tablet 75 mcg 75 mcg, oral, Every morning before breakfast lidocaine (for HOWARD) jelly 1 application 1 application, Topical, As needed lidocaine (XYLOCAINE) 10 mg/mL (1 %) injection 1 mL 1 mL, infiltration, Once as needed Linked Group 1: And Linked Group Details lidocaine (XYLOCAINE) 10 mg/mL (1 %) injection 1 mL 1 mL, infiltration, Once as needed Linked Group 2: And Linked Group Details lidocaine (XYLOCAINE) 10 mg/mL (1 %) injection 1 mL 1 mL, infiltration, Once as needed Linked Group 3: And Linked Group Details magnesium chloride (SLOW-MAG) tablet 71.5 mg 71.5 mg, oral, Daily with breakfast metoprolol (LOPRESSOR) injection 5 mg 5 mg, intravenous, Every 5 min PRN, For HR >120. Hold if SBP <100mmHg metoprolol succinate XL (TOPROL-XL) 24 hr tablet 25 mg 25 mg, oral, Daily miconazole (MICOTIN) 2 % powder Topical, 2 times daily, Apply to groin naloxone (NARCAN) injection 0.04 mg 0.04 mg, intravenous, As needed, Every 1 Minute PRN For Opiate Reversal
1. Draw up 0.4 mg (1 mL) in 10 mL syringe, and dilute with 9 mL of saline for an naloxone concentration of 0.04 mg/mL.
2. Give 0.04 mg (1 mL) IV push flushing solution into vein and repeat every min until resp rate greater than 10 per min and level of sedation improved.
3. Notify Provider STAT. nitroglycerin (NITROSTAT) SL tablet 0.4 mg 0.4 mg, sublingual, Every 5 min PRN, May administer up to 3 doses per episode.
Fall Risk Category 4 ondansetron (ZOFRAN) 4 mg/5 mL solution 4 mg 4 mg, oral, Every 8 hours PRN ondansetron (ZOFRAN) injection 4 mg 4 mg, intravenous, Every 8 hours PRN ondansetron ODT (ZOFRAN-ODT) disintegrating tablet 4 mg 4 mg, oral, Every 8 hours PRN pantoprazole (PROTONIX) EC tablet 40 mg 40 mg, oral, Every morning before breakfast, Do not crush or chew. phenylephrine in NS (SUZANNE-SYNEPHRINE) 20 mg/250 mL (80 mcg/mL) infusion 40-400 mcg/min (40-400 mcg/min), intravenous, Titrated @ 30-300 mL/hr, Initiate phenylephrine infusion at 0.5 mcg/kg/min IBW if MAP greater than or equal to 65 mmHg.
Titrate to keep MAP greater than or equal to 65 mmHg.&lt ;BR>Titrate by 0.5- 4 mcg/kg/min IBW every 2-10 minutes. predniSONE (DELTASONE) tablet 5 mg 5 mg, oral, Daily promethazine (PHENERGAN) 6.25 mg in sodium chloride (NS) 0.9 % 50 mL (0.125 mg/mL) IVPB 6.25 mg, intravenous, Every 6 hours PRN @ 100 mL/hr senna (SENOKOT) tablet 8.6 mg 8.6 mg, oral, 2 times daily, Hold if >1 bm daily sertraline (ZOLOFT) tablet 50 mg 50 mg, oral, Nightly sodium chloride (NS) 0.9 % infusion 250 mL 250 mL, intravenous, As needed Linked Group 4: And Linked Group Details sodium chloride (NS) 0.9 % infusion 250 mL 250 mL, intravenous, As needed Linked Group 5: And Linked Group Details sodium chloride 0.9 % flush 10 mL 10 mL, intravenous, As needed Linked Group 1: And Linked Group Details sodium chloride 0.9 % flush 10 mL 10 mL, intravenous, As needed Linked Group 2: And Linked Group Details sodium chloride 0.9 % flush 10 mL 10 mL, intravenous, As needed Linked Group 3: And Linked Group Details sodium chloride 0.9 % flush 20 mL 20 mL, intravenous, As needed sulfaSALAzine (AZULFIDINE) tablet 1,000 mg 1,000 mg, oral, 2 times daily amiodarone in dextrose,iso-osm (BOLUS PREMIX) 150 mg/100 mL (1.5 mg/mL) Bolus Premix 150 mg (Discontinued) 150 mg, intravenous, Once @ 600 mL/hr, Use non-DEHP tubing and 0.2 mcg filter for infusion. BP 127/81 (BP Location: Right arm, Patient Position: Semi-Mims's) Pulse 62 Temp 36.5 ??C (97.7 ??F) (Oral) Resp 20 Ht 1.524 m Wt 73 kg SpO2 96% BMI 31.43 kg/m?? Intake/Output Summary (Last 24 hours) at 05/24/2021 1633 Last data filed at 05/24/2021 1300 Gross per 24 hour Intake 530 ml Output 450 ml Net 80 ml Physical Exam Constitutional Chronically ill appearing, NAD Mouth/Throat No thrush Eyes No scleral icterus Neck Supple no lymphadenopathy and no carotid bruit Cardiovascular Normal s1 and s2, no m/r/g Pulmonary/Chest cta anteriorly Abdominal Soft + bs no HSM Musculoskeletal No obvious musculoskeletal abnormalities Vascular Intact radial pulses, carotid pulses Neurological No apparent focal neurologic findings Skin Posterior excoriated calf lesions b/l Patient Active Problem List Diagnosis ??? Seronegative rheumatoid arthritis of multiple sites (CMS/HCC) ??? Osteoarthropathy ??? Type II diabetes mellitus with complication (CMS/HCC) ??? Renal insufficiency ??? Grief ??? Psoriatic arthritis (CMS/HCC) ??? Abdominal pain ??? Functional diarrhea ??? Nausea and vomiting ??? Excessive body weight loss ??? Pressure injury of skin of right calf ??? Unstable angina (CMS/HCC) ??? Dysphagia LABORATORY AND RADIOLOGY REVIEW Results from last 7 days Lab Units 05/24/21 0701 05/23/21 0454 05/22/21 0659 WBC AUTO x10e3/uL 7.0 7.1 8.5 HEMOGLOBIN g/dL 9.9* 9.7* 10.4* HEMATOCRIT % 32.3* 31.9* 34.2* PLATELETS AUTO x10e3/uL 260 276 297 Results from last 7 days Lab Units 05/24/21 0701 05/23/21 0454 05/22/21 0659 SODIUM mmol/L 133* 132* 134 POTASSIUM mmol/L 4.1 4.2 4.6 CHLORIDE mmol/L 100 100 101 CO2 mmol/L 25 25 25 BUN mg/dL 12.0 13.0 15.0 CREATININE mg/dL 1.43* 1.43* 1.49* GLUCOSE mg/dL 175* 182* 110* MAGNESIUM mg/dL 2.0 1.9 1.9 Results from last 7 days Lab Units 05/23/21 0454 05/22/21 0659 BILIRUBIN TOTAL mg/dL 0.2 <0.2 BILIRUBIN, DIRECT mg/dL -- <0.2 Results from last 7 days Lab Units 05/20/21 0544 05/19/21 0420 INR 1.1 1.1 Results from last 7 days Lab Units 05/24/21 1445 05/24/21 0701 05/21/21 0116 TROPONINT ug/L 0.071* 0.078* 0.069* Assessment/Plan Assessment/Plan Comments: Pt reported brief episodes of chest pain at 1 am today associated with palpitations without st changes; ekg changes from baseline, troponin bump or exertional component later today while walking aroundthe page. She has multiple comorbid conditions including Crohn's, DM, leg wounds and anxiety. I recommend continuing current meds . It is unlikely that chest pain episode (brief, resolved with dilaudid) is due to another plaque rupture or acute instent thrombosis. Stent management - continue plavix; off asa due to needing eliquis for paf paf - no recurrence yesterday. I carefully reviewed tele. Continue amiodarone and Eliquis. recurrence of RVR on 05/20 with brief CCU stay then resolved, which is why she was started on amiodarone. Currently on day 2 ofPO amiodarone load 400 mg po bid. Last day of load is 05/26 at which point amiodarone can be switched to 200 mg daily discontinue dilt due to polypharmacy. Continue amiodarone. HL - continue lipitor 40 mg daily Electronically signed by Lucinda Bahena MD 05/24/2021 4:33 PM YvanAustin reynolds, HEAD CHAR FILTER TANK TENDER - 05/24/2021 9:32 AM PDT Inpatient Physical Therapy Treatment Note Patient Name: Shirin Aguillon MR#: [id number] Today's Date: 05/24/2021 PT Last Visit PT Received On: 05/24/21 HEAD CHAR FILTER TANK TENDER Visit Count: 5 Precautions General Precautions: fall risk, BLE wounds, AFIB, Anxious Subjective: Cognition Overall Cognitive Status: Within Functional Limits Arousal/Alertness: Appropriate responses to stimuli Memory: Appears intact Orientation Level: Oriented X4 Safety Judgment: Good awareness of safety precautions Objective/Interventions: Mobility Sit to Supine: Modified independent with railing Sit to Stand: Stand by assistance Sit-Stand Devices Used: Front wheeled walker Stand to Sit: Stand by assistance Stand-Sit Devices Used: Front wheeled walker Stand Pivot Transfers: Stand by assistance Stand Pivot: Devices Used: Front wheeled walker Ambulation: Contact guard assistance Ambulation: Devices Used: Front wheeled walker Ambulation Distance (Feet): 80 Feet (40'x2 w/1 seated rest break ) Sitting Balance: Supports self independently Standing Balance: Modified independent with device Goals and Progress: Plan Assessment: Lou was pleasant and motivated to participate in skilled PT today. Pt reports decreased pn today, however cont to not get much sleep at night. Instruction for cont trans training req no physical assist required. AMB pt to nurse station 40' CGA/FWW 1 seated rest d/t fatigue before AMB additional 40 ' back to room/bed. Pt has made sig progress w/strength and endurance and progressing towards goals. Pt cont to be anxious, but motivated to work w/PT and NSG on oob activity. PT rec DC to home w/assist and HHPT 2-3x/wk when med DC. Treatment/Interventions: ADL retraining, Functional transfer training, LE strengthening/ROM, Endurance training, Patient/family training, Equipment eval/education, Bed mobility, Gait training, Compensatory technique education, Continued evaluation Progress: Progressing toward goals Multidisciplinary Problems IP Therapy Problems (Active) Problem: Physical Therapy - Adult Goal Priority Disciplines By Discharge: Performs mobility at highest level of function for planned discharge setting. See evaluation for individualized goals. PT Description: 05/21/2021 *goals reviewed, updated to * pt to perform bed mobility with HOB flat, no rails and SBA *pt to transfer with FWW and SBA *pt to ambulate 50 feet with FWW and SBA *pt to ascend and descend 1 step with OVER HAULER HELPER and CGA for safe arrival at home with 's assist 04/24/21 *pt to perform bed mobility with HOB flat, no rails and with stand-by assistance *pt to transfer with front wheeled walker with stand-by assistance *pt to ambulate 150 feet with front wheeled walker and with stand-by assistance *pt to ascend and descend 7 stairs with hand rail and with stand-by assistance in order to safely negotiate home environment Plan: Recommendation IP PT Status: 2 PT Frequency (in-house): 3-5/wk Post-discharge recommendation: Home with assist, Home PT Discharge Transportation: [facility] PT Frequency upon discharge: 2-3x/wk Electronically signed by Austin Santoro PTA Shantal Rodriguez LCSW - 05/24/2021 8:22 AM PDT SOCIAL WORK: PROGRESS NOTE Data: EMR reviewed. Pt is on day 38 for Problem List Items Addressed This Visit Digestive Dysphagia Relevant Orders Case Request (Completed) Surgical Pathology (Completed) Musculoskeletal * (Principal) Pressure injury of skin of right calf Relevant Orders [facility] [place] TEST - (Completed) Culture, Deep Abscess Aerobic&Anaerobic w/gram stain (Completed) Other Visit Diagnoses Acute renal failure, unspecified acute renal failure type (CMS/HCC) - Primary Relevant Orders Ambulatory Referral to Cardiac Rehabilitation Hyperkalemia Sepsis due to skin infection (CMS/HCC) Acute anemia Occult blood in stools Acute cystitis without hematuria Patient is not medically stable for discharge at this time. Per discussion with provider, discharge needs include home health. Social Work consults to coordinate these services have been ordered by physician at this time. Pt declined at multiple SNFs to include [facility]. Pt declined by home healths [facility] because they do not go out to [facility]. Received message from Raymond at [facility]- pt has been declined too high functioning physically to qualify for IPR. PRECIPITATOR OPERATOR spoke with PT, reports pt is up in chair and making progress. PRECIPITATOR OPERATOR spoke with physician. Pt will need wound care post discharge. PRECIPITATOR OPERATOR called pt's spouse Khari #[phone] who reported he is not surprised that home healths and facilities have declined to accept pt. Pt's spouse reported this has been an issue in the past when referrals made, and in the past spouse tended to pt's wound care and would go to 2 in-person wound care clinic visits at [facility] a month and send photos back and forth in between visits; spouse reports he is comfortable doing something similar again. Spouse reports pt can return home in his careas soon as tomorrow albeit he needs 1 day notice of discharge to set up [employer] transportation. Spouse reported he will need access to initial wound care teaching, and supplies in advance. Spouse rep orted he does not have supports and finances in place [place]. Barriers to Discharge Include: medical progression, confirm with physician/wound care if spouse can receive teaching and tend to pt's wound care in home Assessment: alert and oriented x4 Per PRECIPITATOR OPERATOR interactions, Physician Documentation and Nursing Documentation, patient has capacity for self care and has decisional capacity at this time. Plan: Anticipate patient to discharge home with family support if it is agreed spouse can safely provide pt's wound care. PRECIPITATOR OPERATOR will continue to follow pt's clinical course. LYLE PerezW Rosio Red DO - 05/24/2021 6:49 AM PDT [facility] Progress Note Inpatient Primary Care [facility] Patient Name: Shirin Aguillon Date of : 1945 Age: 75 y.o. Code Status: Full Code Primary Care Physician: Rogelio Braga MD Admitting Provider: Ana Maria Narvaez MD Attending Provider: Denise Miller DO Admit Date: 04/15/2021 Date of Service: 05/24/2021 Hospital Day: 38 Assessment and Plan Shirin Aguillon is a 75 y.o. female anticoagulated with Eliquis??with a hx notable for type II diabetes mellitus, hypertension, hyperlipidemia, CKD, and rheumatoid arthritis??who presents to the ED??for evaluation of altered mental status and found to be in [place] with hyperkalemia. Patient was treatedwith temporary hemodialysis and course of antibiotics for sepsis. Currently being treated for failure to thrive and deconditioning, autoimmune disease, bilateral lower extremity wounds, NSTEMI, esophageal stricture and Afib RVR. Today's Plan: -Contact cardiology regarding recurrence of chest pain and elevation in troponin and CK-MB -Transition from IV amiodarone to oral loading dose -Continue to coordinate with social work regarding discharge planning[place]. In particular, we need to clarify wound care needs and degree of helpanticipated to perform ADL's. Paroxysmal Atrial Fibrillation,??present on admission. Improving. -On diltiazem CD 240 mg daily at home, which was reduced to 120mg when amiodarone was started - Now on metoprolol XL 25 mg daily -Recurrence of RVR on 05/20 with brief CCU stay then resolved -RVR recurred on 05/22/21 with associated hypotension, transferred back to CCU, stabilized with Bolusand started on Amiodarone infusion - Amiodarone gtt to PO after ~24hrs/amio load - If pt becomes hypotensive again through amiodarone, plan to use Phenylephrine GTT & Cardiovertper Cardiology recommendations - Repeat limited Echo on 05/23 exhibited normal/stable EF, no acute changes - daily magnesium & replete prn Coronary Artery Disease s/p ANDREA to LAD, present on admission. Active. - EKG 05/15 showed diffuse T-wave inversions which were new, Trial of SL nitroglycerin significantly lowered patient's blood pressure. - Received Heparin infusion for about 36hrs until cardiac cath - Cardiology consulted; Cardiac Cath 05/17 resulted in ANDREA to LAD - Continue daily ASA, Plavix -Patient developed an episode of chest pain last night; asking cardiology to review repeat ECG as well as mild increase in troponin and CK-MB compared to several days ago. Esophageal tear s/p balloon dilatation, present on admission. Active. Noted on EGD 05/20/2021, balloon dilatation performed, see GI note for full details -continue daily PPI, GI cocktail as needed -follow up surgical pathology -outpatient follow up with GI Hypotension, note present on admission. Improved and being monitored closely. - Associated with atrial fibrillation with RVR as above -stat 1 liter NS bolus with improvement -plan for phenylephrine gtt and cardioversion if recurs or becomes refractory Acute on chronic anemia,??present on admission. Stable. -iron profile is compatible with anemia of chronic disease. -acute drop in hemoglobin due to post-heart cath right groin hematoma -received 1 unit prbcs on 05/19 -recommend outpatient colonoscopy Right groin hematoma, not present on admission. resolved. -secondary to cardiac catheterization -pressure sandbag applied with stabilization of hematoma -eliquis has since been resumed Soft tissue ulcerated wounds of bilateral lower extremities, present on admission. Improved. 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 Patient reports she developed these wounds following an allergic reaction to TMP-SMX. She was followed by Rheumatology for this; previously on Xeljanz, Leflunomide and Sulfasalazine for Crohn's and seronegative RA. Followed by Dr Shepherd. Pt reports another bmw sales consultant switched her to Prednisone daily however I am not able to view all of these records - s/p bilateral calf wound debridement per GS, Micro positive for light growth pseudomonas and zenaida albicans - continue wound care - continue daily prednisone - treatment of presumed autoimmune etiology and diabetes - [facility] Wound Biopsy pathology report exhibits nonspecific inflammation, can not rule out autoinflammatory disease. Will reach out to Dr Shepherd the pt's Sweet Potato Disintegrator to see if this changes plan of care at all for her Dysphagia, not present on admission. Improving. Reportedly has had dysphagia to solids for years, however it worsened acutely recently with significant nausea and indigestion -continue PPI and tums prn -s/p EGD as above with balloon dilatation. Found to have erosive gastritis. Nausea, not present on admission. Improved. Waxing and waning, amenable to zofran, associated with GERD sx -continue antiemetics, PPI Inflammatory bowel disease and rheumatoid arthritis on prednisone therapy, present on admission. Active. -continue oral prednisone daily -previously on Xeljanz, Leflunomide and Sulfasalazine. Reportedly discontinued this recently for prednisone and also discontinued outpatient Cipro for recurrent UTis -discussed with Dr Shepherd Rheumatology 05/07, pt safe to resume & continue Sulfasalazine for Crohn's. Presumably the ulcers are from IBD however not safe to resume xeljanz and leflunomide due to infection -outpatient follow up with rheumatology Depression, not present on admission. Active. Unclear if this is acute on chronic, may be related to adjustment disorder due to prolonged hospitalization and difficulty with placement, separation from family, decreased functional status and need for increased care. - increased sertraline to 50mg 05/23 - continue PO levocarnitine supplement Weakness, Fatigue and Deconditioning, present on admission. Improving. -functional status prior to admission:??Ambulates with a walker, stair chair at home, few stairs on her own. -continue Physical therapy; recommending rehabilitation -up in chair for meals, ambulate TID when able Chronic kidney disease stage III, present on admission. Stable. Baseline Cr around 1.2-1.3 during this admission, previous baseline around 1.1 prior. Likely she is at a stable baseline -UA / urine protein creatinine ratio exhibited significant nephropathy-likely diabetic -Discontinued EMILY due to renal intolerance -Advised pt to drink >2.5L fluids daily Constipation, not present on admission. Resolved. Likely due to low mobility and depressed PO intake, opiates likely contributory pt has diarrhea from Crohns disease at baseline -continue daily bowel regimen (conservative), no fiber or laxatives due to crohn's disease Type 2 diabetes mellitus, present on admission. Chronic. - Hemoglobin A1c: 9.0 - Continue lantus 6 units nightly - Low dose insulin correction scale Decreased oral intake, not present on admission. Improved. Likely related to chronic disease (inflammatory), GERD and decreased appetite from acute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 she was tachycardic, anxious and in pn. Today her pn was 7/10 to begin tx. Sympathized w/pt and encouraged her to work w/PT to increase time oob for strength and endurance. Pt verbalized understanding and willingness to mobilize and trans to chair. Pt has made good progress req no physical assist for bed mobility and CGA/FWW for STS trans at EOB. Instructed AMB in room 45' CGA/FWW emerging step thru gait, before pt became anxious and req to sit in chair. PT cont to rec DC tohome w/ assist and HHPT 2-3x/wk when med DC. Treatment/Interventions: ADL retraining, Functional transfer training, LE strengthening/ROM, Endurance training, Patient/family training, Equipment eval/education, Bed mobility, Gait training, Continued evaluation, Compensatory technique education Progress: Progressing toward goals Multidisciplinary Problems IP Therapy Problems (Active) Problem: Physical Therapy - Adult Goal Priority Disciplines By Discharge: Performs mobility at highest level of function for planned discharge setting. See evaluation for individualized goals. PT Description: 05/21/2021 *goals reviewed, updated to * pt to perform bed mobility with HOB flat, no rails and SBA *pt to transfer with FWW and SBA *pt to ambulate 50 feet with FWW and SBA *pt to ascend and descend 1 step with OVER HAULER HELPER and CGA for safe arrival at home with 's assist 04/24/21 *pt to perform bed mobility with HOB flat, no rails and with stand-by assistance *pt to transfer with front wheeled walker with stand-by assistance *pt to ambulate 150 feet with front wheeled walker and with stand-by assistance *pt to ascend and descend 7 stairs with hand rail and with stand-by assistance in order to safely negotiate home environment Plan: Recommendation IP PT Status: (!) 1 PT Frequency (in-house): 5-7/wk Post-discharge recommendation: Home with assist, Home PT Discharge Transportation: Cabulance, Private vehicle PT Frequency upon discharge: 2-3x/wk Electronically signed by Austin Santoro PTA Sim Caicedo PTA - 05/22/2021 2:15 PM PDT Pt declined to work with skilled PT today despite encouragement. She reports being scared about her future and while she knows it is good to get out of bed and move around she just doesn't feel up to it today. PT will f/u as able Denise Miller DO - 05/22/2021 2:14 PM PDT [employer] Progress Note Inpatient Primary Care [facility] Patient Name: Shirin Aguillon Date of : 1945 Age: 75 y.o. Code Status: Full Code Primary Care Physician: Rogelio Braga MD Admitting Provider: Ana Maria Narvaez MD Attending Provider: Denise Miller DO Admit Date: 04/15/2021 Date of Service: 05/22/2021 Hospital Day: 36 Assessment and Plan Shirin Aguillon is a 75 y.o. female anticoagulated with Eliquis??with a hx notable for type II diabetes mellitus, hypertension, hyperlipidemia, CKD, and rheumatoid arthritis??who presents to the ED??for evaluation of altered mental status and found to be in CAMILLE with hyperkalemia. Patient was treatedwith temporary hemodialysis and course of antibiotics for sepsis. Currently being treated for failure to thrive and deconditioning, autoimmune disease, bilateral lower extremity wounds, and atrial fibrillation. Atrial fibrillation with rapid ventrilcular response,??present on admission. Active. -on both diltiazem CD 240 mg daily and metoprolol XL 25 mg daily -recurrence of RVR on 05/20 with brief CCU stay then resolved -RVR recurred on 05/22/21 with associated hypotension -stat 1 liter bolus, 2 gram magnesium infusion and transfer back to CCU -if blood pressure improved with bolus, will start amiodarone infusion (then decrease diltiazem doseafter 24 hours given interaction with amiodarone) -if remains hypotensive, will start phenylephrine gtt and cardiology notified with plans for cardioversion -repeat limited echo Hypotension, note present on admission. Active. -associated with atrial fibrillation with RVR as above -stat 1 liter NS bolus with improvement -plan for phenylephrine gtt and cardioversion if continues Esophageal tear s/p balloon dilatation, present on admission. Active. Noted on EGD 05/20/2021, balloon dilatation performed, see GI note for full details -continue daily PPI, GI cocktail as needed -follow up surgical pathology -outpatient follow up with GI Acute on chronic anemia,??present on admission. Stable. -iron profile is compatible with anemia of chronic disease. -acute drop in hemoglobin due to post-heart cath right groin hematoma -received 1 unit prbcs on 05/19 -recommend outpatient colonoscopy Right groin hematoma, not present on admission. Improved. -secondary to cardiac catheterization -pressure sandbag applied with stabilization of hematoma -eliquis has since been resumed Dysphagia, not present on admission. Active. Reportedly has had dysphagia to solids for years, however it worsened acutely recently with significant nausea and indigestion -continue PPI and tums prn -s/p EGD as above with balloon dilatation. Found to have erosive gastritis. Nausea, not present on admission. Improved. Waxing and waning, amenable to zofran, associated with burning epigastric pain -continue antiemetics, PPI Hyponatremia, present on admission. Resolved. Fluctuated as fluid status and renal function changed throughout hospital course. Currently likely secondary to decreased PO intake, fluid shifts, iv contrast -resolved Coronary Artery Disease s/p ANDREA to LAD, present on admission. Active. EKG 05/15 showed diffuse T-wave inversions which were new, Trial of SL nitroglycerin significantly lowered patient's blood pressure. -received Heparin infusion for about 36hrs until cardiac cath -cardiology consulted; Cardiac Cath 05/17 resulted in ANDREA to LAD -continue daily ASA, Plavix Soft tissue ulcerated wounds of bilateral lower extremities, present on admission. Improved. 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 Patient reports she developed these wounds following an allergic reaction to TMP-SMX. She was followed by Rheumatology for this; previously on Xeljanz, Leflunomide and Sulfasalazine for Crohn's and seronegative RA. Followed by Dr Shepherd. Pt reports another [employer] sales consultant switched her to Prednisone daily however I am not able to view these records -s/p bilateral calf wound debridement per GS, Micro positive for light growth pseudomonas and zenaida albicans -continue wound care, wound consult team following; appreciate their excellent care and recommendations. Examined 05/07, no evidence of subcutaneous infection. See media tab -treatment of presumed autoimmune etiology and diabetes -conservative pain control. OK for 10mg [place] ~30m prior to wound dressing changes -needs Outpatient Referral to Gen Surg for wound Biopsy -patient had biopsy in the past at [facility] per report and records. Will reach out to try to obtain the report or pathology findings Inflammatory bowel disease and rheumatoid arthritis on prednisone therapy, present on admission. Active. -continue oral prednisone daily -previously on Xeljanz, Leflunomide and Sulfasalazine. Reportedly discontinued this recently for prednisone and also discontinued outpatient Cipro for recurrent UTis -discussed with Dr Shepherd Rheumatology 05/07, pt safe to resume & continue Sulfasalazine for Crohn's. Presumably the ulcers are from IBD however not safe to resume xeljanz and leflunomide due to infection -outpatient follow up with rheumatology Depression, not present on admission. Active. Unclear if this is acute on chronic, may be related to adjustment disorder due to prolonged hospitalization and difficulty with placement, separation from family, decreased functional status and need for increased care. -continue sertraline Weakness, Fatigue and Deconditioning, present on admission. Improved. -functional status prior to admission:??Ambulates with a walker, stair chair at home, few stairs on her own. -continue Physical therapy; recommending rehabilitation -up in chair for meals, ambulate TID Chronic kidney disease stage III, present on admission. Stable. Baseline Cr around 1.2-1.3 during this admission, previous baseline around 1.1 prior. Likely she is at a stable baseline -UA / urine protein creatinine ratio exhibited significant nephropathy-likely diabetic -Discontinue EMILY due to renal intolerance, d/w Nephro curbside -BUN/Cr did not improve much with supplemental IVF -Advised pt to drink >2.5L fluids daily Constipation, not present on admission. Resolved. Likely due to low mobility and depressed PO intake, opiates likely contributory pt has diarrhea from Crohns disease at baseline -continue daily bowel regimen (conservative), no fiber or laxatives due to crohn's disease Cystitis, present on admission. Resolved -completed antibiotics Uncontrolled Type 2 diabetes mellitus, present on admission. Chronic. -hemoglobin A1c: 9.0 -continue lantus 6 units nightly -low dose insulin correction scale Decreased oral intake, not present on admission. Improved. Likely related to chronic disease (inflammatory), GERD and decreased appetite from acute illness -encourage food and fluid, no advance feeding interventions Hypokalemia with Hypomagnesemia, not present on admission. Resolved. -replete both electrolytes as needed. Likely secondary to diarrheal losses. Hypothyroidism, present on admission. Chronic. -continue levothyroxine Respiratory distress, present on admission. Resolved. Metabolic acidosis with respiratory partial compensation, not present on admission. Resolved. CAMILLE, acute, present on admission. Resolved. Diarrhea, not present on admission, Resolved. Partly due to Crohn's Sepsis, acute, present on admission. Resolved. Body jerking,??present on admission. Resolved. VTE Prophylaxis: Apixaban Code Status: Full code Disposition: Pending improvement in atrial fibrillation and resolution of discharge planning issues as outlined below. Discharge planning issues: -patient lives alone on [facility] without much support -there have been no accepting short term care facilities (SNF) -home health services are not available on [facility] -referral sent to [facility] [place] -patient is agreeable to looking at assisted living facilities on the [facility] if family is agreeable -patient and family are looking to relocate to [facility]; however, patient states this likely won't happen for a long time due to financial reasons Current Hospital Medications Allergies Allergies Allergen Reactions ??? Bactrim [Sulfamethoxazole-Trimethoprim] Swelling ??? Betadine [Povidone-Iodine] ??? Fish Derived ??? Iodine ??? Other [place] products ??? Shellfish Containing Products Medications Scheduled apixaban, 5 mg, oral, BID atorvastatin, 40 mg, oral, Nightly clopidogreL, 75 mg, oral, Daily diltiazem CD, 240 mg, oral, Daily insulin glargine, 6 Units, subcutaneous, Nightly insulin lispro, 0-5 Units, subcutaneous, Nightly insulin lispro, 0-6 Units, subcutaneous, TID with meals lactobacillus rhamnosus GG, 1 capsule, oral, Daily levOCARNitine, 500 mg, oral, Daily with dinner levothyroxine, 75 mcg, oral, q AM AC magnesium chloride, 1 tablet, oral, Daily with breakfast magnesium sulfate, 2 g, intravenous, Once metoprolol succinate XL, 25 mg, oral, Daily miconazole, , Topical, BID pantoprazole, 40 mg, oral, q AM AC predniSONE, 5 mg, oral, Daily senna, 1 tablet, oral, BID sertraline, 25 mg, oral, Nightly sulfaSALAzine, 1,000 mg, oral, BID As needed ??? acetaminophen ??? calcium carbonate ??? dextrose 50% (D50W) ??? diazePAM ??? diphenhydrAMINE ??? HYDROcodone-acetaminophen ??? HYDROmorphone ??? lidocaine ??? Insert peripheral IV AND lidocaine AND Maintain IV access AND Saline lock IV AND sodium chloride ??? Insert peripheral IV AND lidocaine AND Maintain IV access AND Saline lock IV AND sodium chloride ??? Insert peripheral IV AND lidocaine AND Maintain IV access AND Saline lock IV AND sodium chloride ??? metoprolol ??? naloxone ??? nitroglycerin ??? ondansetron ??? ondansetron ??? ondansetron ODT ??? promethazine ??? [COMPLETED] Prepare/Crossmatch RBC: 1 Units AND [COMPLETED] Transfuse RBC: 1 Units AND [COMPLETED] Nursing communication: Ensure provider has obtained Informed Consent for Blood Transfusion AND Vital Signs AND sodium chloride AND [COMPLETED] Nursing Communication: Transfusion Reaction Management ??? [COMPLETED] Prepare/Crossmatch RBC: 1 Units AND [COMPLETED] Transfuse RBC: 1 Units AND [COMPLETED] Nursing communication: Ensure provider has obtained Informed Consent for Blood Transfusion AND Vital Signs AND sodium chloride AND [COMPLETED] Nursing Communication: Transfusion Reaction Management ??? sodium chloride Infusions phenylephrine, 40-400 mcg/min, Last Rate: Stopped (05/21/21 0445) sodium chloride, 1,000 mL, Last Rate: Stopped (05/21/21 0813) Subjective Patient's Update Reports feeling well this morning but later in the afternoon she developed atrial fibrillation with RVR and hypotension. She felt fatigued and dizzy. Resolved with IV NS bolus and she converted back tosinus rhythm in the 60s. Blood pressure improved to 124/75. Transferred to CCU for amiodarone infusion. Interval Update Transferred to CCU for amiodarone infusion given atrial fibrillation with RVR. Objective BP 123/77 (BP Location: Right arm, Patient Position: Sitting) Pulse 77 Temp 36.6 ??C (97.9 ??F) (Oral) Resp 16 Ht 1.524 m Wt 74.6 kg SpO2 97% BMI 32.12 kg/m?? Intake/Output Summary (Last 24 hours) at 05/22/2021 1414 Last data filed at 05/22/2021 1140 Gross per 24 hour Intake 200 ml Output 150 ml Net 50 ml Physical Exam Vitals and nursing note reviewed. Constitutional: General: She is not in acute distress. Appearance: She is obese. She is ill-appearing (chronically). HENT: Head: Normocephalic. Comments: Temporal wasting and alopecia Eyes: Extraocular Movements: Extraocular movements intact. Cardiovascular: Rate and Rhythm: Normal rate and regular rhythm. Pulses: Normal pulses. Heart sounds: No murmur heard. Pulmonary: Effort: Pulmonary effort is normal. No respiratory distress. Breath sounds: Normal breath sounds. No wheezing, rhonchi or rales. Abdominal: General: Abdomen is flat. There is no distension. Tenderness: There is no guarding. Musculoskeletal: General: Tenderness (to bilateral lower exremities) present. Normal range of motion. Skin: General: Skin is warm and dry. Coloration: Skin is pale. Skin is not jaundiced. Findings: Bruising present. Comments: Thin and fragile skin Neurological: Mental Status: She is alert. Mental status is at baseline. Motor: Weakness present. Psychiatric: Attention and Perception: Attention normal. Speech: Speech normal. Comments: Flat affect Labs and ECG Hematology Results from last 7 days Lab Units 05/22/21 0659 05/21/21 0116 05/20/21 0544 WBC AUTO x10e3/uL 8.5 9.4 7.4 HEMOGLOBIN g/dL 10.4* 10.6* 9.2* HEMATOCRIT % 34.2* 34.0* 29.8* MCV fL 84 83 82 PLATELETS AUTO x10e3/uL 297 297 225 Chemistries Results from last 7 days Lab Units 05/22/21 0659 05/21/21 0116 05/20/21 0544 SODIUM mmol/L 134 131* 135 POTASSIUM mmol/L 4.6 4.7 4.6 CHLORIDE mmol/L 101 101 102 CO2 mmol/L 25 24 26 BUN mg/dL 15.0 16.0 18.0 CREATININE mg/dL 1.49* 1.41* 1.40* GLUCOSE mg/dL 110* 159* 118* CALCIUM, SERUM mg/dL 8.4* 8.2* 8.4* MAGNESIUM mg/dL 1.9 2.1 1.6 Estimated Creatinine Clearance: 30.3 mL/min (A) (by C-G formula based on SCr of 1.49 mg/dL (H)). Urinalysis Microbiology Urine culture Apollo Alvei 05/05 and 05/07 Diagnostic Imaging ECHOCARDIOGRAM LIMITED Interpretation Summary Limited Echo: 1) Normal left ventricular size and systolic f unction (EF 55-60%). 2) Subtle mid anterior and mid anterolateral wall hypokinesis present. Septal bounce present. 3) Compared to the Echo done 04/23/2021, no significant change when compared visually. Reading Physician:10:39 AM Results for orders placed during the hospital encounter of 04/15/21 SI STENT ANDREA - CORONARY Narrative PROCEDURE PERFORMED: 1. Percutaneous intervention on the left anterior descending. 2. Supervision for moderate sedation. Electronically signed by: Denise Miller DO 05/22/2021 at 2:14 PM Portions of today's documentation have been created with the assistance of voice recognition software. Therefore, it may contain anomalous punctuation, anomalous independent misrecognitions, word substitutions, insertions or omissions. Occasional wrong-word or phonetically similar substitutions may also occur, all due to the inherent limitations of voice recognition software. Attempts to correct the above have been made by Denise Miller DO but it is recommended that the chart be read carefully to recognize, using context, where the substitutions may have occurred. Ezekiel Tucker - 05/22/2021 10:09 AM PDT Social Work Discharge Planning Per call to [facility] [phone], spoke with Raymond who will look into if they have received the referral and call me back. Updated PRECIPITATOR OPERATOR that this task was completed Sim Caicedo PTA - 05/21/2021 2:58 PM PDT Inpatient Physical Therapy Treatment Note Patient Name: Shirin Aguillon MR#: [id number] Today's Date: 05/21/2021 PT Last Visit PT Received On: 05/21/21 HEAD CHAR FILTER TANK TENDER Visit Count: 3 Precautions General Precautions: falls risk, BL calf wounds Subjective: Cognition Overall Cognitive Status: Within Functional Limits Arousal/Alertness: Appropriate responses to stimuli Orientation Level: Oriented X4 Safety Judgment: Good awareness of safety precautions Vital Signs Heart Rate: 92 Heart Rate Source: Monitor Objective/Interventions: Mobility Supine to Sit: Independent (HOB 30d) Sit to Supine: Independent (HOB 30d) Sit to Stand: Stand by assistance (2x; VC hand placement) Sit-Stand Devices Used: Front wheeled walker Stand to Sit: Stand by assistance (good alignment & control) Stand-Sit Devices Used: Front wheeled walker Ambulation: Contact guard assistance (emerging step thru, good FWW proximity) Ambulation: Devices Used: Front wheeled walker Ambulation Distance (Feet): 20 Feet Sitting Balance: Supports self independently Standing Balance: Stand by assistance (w/FWW) Goals and Progress: Plan Assessment: Lou was agreeable to participate in skilled PT with some encouragement. She stated that she had a horrible day yesterday but is feeling a little better today, she remains pleasantly withdrawn. She was premedicated for pain d/t upcoming dressing changes. She demonstrated independent bed mobility and stood 2x SBA with instruction to push off the EOB vs pulling on the FWW. She ambulated to the hallway with instruction to maintain closer proximity to the FWW and offload with her UEs. She c/o steadily increasing calf pain and LE weakness during ambulationand was groaning in pain throughout. After ~20ft she stated she was unable to go much further and required WC to be brought in behind so she could be wheeled back to the room. She returned to martín, RN in room for dressing changes. Spoke with pt's spouse who reports that pt would have to step out of the boat but they have a ramp to get into the house and a stair chair to get upstairs to the BR. They have FWW, 4WW, and a BSC but the BR is ~8 ft from the bed so BSC may not be neccessary. Spouse reports that he has been providing 24/7 assist and performing david care and hygiene for pt for the past year and he feels comfortable resuming this role. Recommend d/c home with 24/7 assist and HHPT 2- 3x per week. Progress: Progressing toward goals Multidisciplinary Problems IP Therapy Problems (Active) Problem: Physical Therapy - Adult Goal Priority Disciplines By Discharge: Performs mobility at highest level of function for planned discharge setting. See evaluation for individualized goals. PT Description: 04/24/21 *pt to perform bed mobility with HOB flat, no rails and with stand-by assistance *pt to transfer with front wheeled walker with stand-by assistance *pt to ambulate 150 feet with front wheeled walker and with stand-by assistance *pt to ascend and descend 7 stairs with hand rail and with stand-by assistance in order to safely negotiate home environment Plan: Recommendation IP PT Status: (!) 1 PT Frequency (in-house): 5-7/wk Post-discharge recommendation: Home with assist, 24 hour supervision/assist, Home PT Discharge Transportation: Private vehicle, Cabulance PT Frequency upon discharge: 2-3x/wk Mohsen Patel MD - 05/21/2021 1:56 PM PDT GI Daily Progress Note Subjective No acute events overnight. Patient status post upper endoscopy with dilatation performed yesterday. Patient tolerating p.o. intake and ate fruit and oatmeal without difficulty Patient Active Problem List Diagnosis ??? Seronegative rheumatoid arthritis of multiple sites (CMS/HCC) ??? Osteoarthropathy ??? Type II diabetes mellitus with complication (CMS/HCC) ??? Renal insufficiency ??? Grief ??? Psoriatic arthritis (CMS/HCC) ??? Abdominal pain ??? Functional diarrhea ??? Nausea and vomiting ??? Excessive body weight loss ??? Pressure injury of skin of right calf ??? Unstable angina (CMS/HCC) ??? Dysphagia Past Medical History: Diagnosis Date ??? Abdominal pain ??? Arthritis ??? Arthritis, rheumatoid (CMS/HCC) ??? Chronic diarrhea ??? Delayed emergence from general anesthesia ??? Diabetes (CMS/HCC) ??? Disorder Nearly severed pinky finger ??? Gallbladder disease ??? H/O recurrent pneumonia ??? Hyperlipidemia ??? Hypertension ??? Kidney disease Kidney dysfunction ??? Low back pain ongoing ??? Migraine headache ??? Neuropathy ??? PONV (postoperative nausea and vomiting) ??? Skin cancer ??? Thyroid disease ??? Tubular adenoma Ileocecal valve tubular adenoma ??? UTI (urinary tract infection) ??? Weight loss, non-intentional Past Surgical History: Procedure Laterality Date ??? ABDOMINAL SURGERY ??? APPENDECTOMY 2017 along with colectomy ??? BACK SURGERY Major back surgery ??? CARPAL TUNNEL RELEASE ??? CHOLECYSTECTOMY ??? COLONOSCOPY 2 x ??? LAPAROSCOPIC ASSISSTED TOTAL COLECTOMY W/ J-POUCH Right 04/12/2017 ??? DC COLONOSCOPY W/BIOPSY SINGLE/MULTIPLE N/A 07/31/2020 Procedure: COLONOSCOPY; Surgeon: Mike Laguna MD; Location: [facility] GI; Service: Gastroenterology ??? DC DEBRIDEMENT, SKIN, SUB-Q TISSUE,=<20 SQ CM Bilateral 04/18/2021 Procedure: debridement of bilateral calf wound; Surgeon: Patria Cruz MD; Location: [facility] OR; Service: ENT ??? DC EDG TRANSORAL BIOPSY SINGLE/MULTIPLE N/A 07/31/2020 Procedure: EGD; Surgeon: Mike Laguna MD; Location: [facility] GI; Service: Gastroenterology ??? SHOULDER SURGERY 2008 Shoulder repair ??? SPINAL FUSION Fusion, et al 4 procedures in one 2011 ??? TUBAL LIGATION 1977 Family History Problem Relation Age of Onset ??? Dementia Mother ??? Other Father Respiratory problems ??? Heart disease Sister ??? Breast cancer Sister ??? Cancer Son Social History Socioeconomic History ??? Marital status: Spouse name: Not on file ??? Number of children: Not on file ??? Years of education: Not on file ??? Highest education level: Not on file Occupational History ??? Not on file Tobacco Use ??? Smoking status: Never Smoker ??? Smokeless tobacco: Never Used Substance and Sexual Activity ??? Alcohol use: No Alcohol/week: 0.0 standard drinks ??? Drug use: No ??? Sexual activity: Not Currently Partners: Male control/protection: Surgical Comment: many surgeries over the years....not listed Other Topics Concern ??? Not on file Social History Narrative ??? Not on file Social Determinants of Health Financial Resource Strain: ??? Difficulty of Paying Living Expenses: Food Insecurity: ??? Worried About Running Out of Food in the Last Year: ??? Ran Out of Food in the Last Year: Transportation Needs: ??? Lack of Transportation (Medical): ??? Lack of Transportation (Non-Medical): Physical Activity: ??? Days of Exercise per Week: ??? Minutes of Exercise per Session: Stress: ??? Feeling of Stress : Social Connections: ??? Frequency of Communication with Friends and Family: ??? Frequency of Social Gatherings with Friends and Family: ??? Attends [employer] Services: ??? Active Member of Clubs or Organizations: ??? Attends Club or Organization Meetings: ??? Marital Status: Intimate Partner Violence: ??? Fear of Current or Ex-Partner: ??? Emotionally Abused: ??? Physically Abused: ??? Sexually Abused: Current Facility-Administered Medications: ??? acetaminophen (TYLENOL) suppository 120 mg, 120 mg, rectal, q4h PRN, Mohsen Fair MD, 120 mgat 04/21/21 2300 ??? apixaban (ELIQUIS) tablet 5 mg, 5 mg, oral, BID, Ricardo Griffin DO, 5 mg at 05/21/21 0959 ??? atorvastatin (LIPITOR) tablet 40 mg, 40 mg, oral, Nightly, Mohsen Fair MD, 40 mg at 05/20/215 ??? calcium carbonate (TUMS) chewable tablet 500 mg, 500 mg, oral, TID PRN, Mohsen Fair MD, 500mg at 05/18/21 0007 ??? clopidogreL (PLAVIX) tablet 75 mg, 75 mg, oral, Daily, Ricardo Griffin DO, 75 mg at 05/21/21 1312 ??? dextrose 50 % in water (D50W) g injection 12.5-50 g, 12.5-50 g, intravenous, PRN, Mohsen Fair MD ??? diazePAM (VALIUM) tablet 2 mg, 2 mg, oral, q12h PRN, Mohsen Fair MD, 2 mg at 05/20/21 1019 ??? diltiazem CD (CARDIZEM CD) 24 hr capsule 240 mg, 240 mg, oral, Daily, Mohsen Fair MD, 240 mg at 05/21/21 0959 ??? diphenhydrAMINE (BENADRYL) capsule 50 mg, 50 mg, oral, q6h PRN, Mohsen Fair MD, 50 mg at 05/16/212024 ??? flumazeniL (ROMAZICON) injection 0.2 mg, 0.2 mg, intravenous, Once PRN, Mohsen Fair MD ??? HYDROcodone-acetaminophen (NORCO) 5-325 mg 1-2 tablet, 1-2 tablet, oral, q4h PRN, Mohsen Fair MD, 2 tablet at 05/21/21 1306 ??? HYDROmorphone (DILAUDID) injection 0.2 mg, 0.2 mg, intravenous, q1h PRN, Mohsen Fair MD, 0.2 mg at 05/20/21 1250 ??? insulin glargine (LANTUS) injection 6 Units, 6 Units, subcutaneous, Nightly, Mohsen Fair MD, 6 Units at 05/20/212115 ??? insulin lispro injection 0-5 Units, 0-5 Units, subcutaneous, Nightly, Mohsen Fair MD, 2 Units at 05/17/212104 ??? insulin lispro injection 0-6 Units, 0-6 Units, subcutaneous, TID with meals, Mohsen Fair MD, 2 Units at 05/19/21 1700 ??? lactobacillus rhamnosus GG (CULTURELLE) 10 billion cell 1 capsule, 1 capsule, oral, Daily, Mohsen Fair MD, 1 capsule at 05/21/21 0959 ??? levOCARNitine (L-CARNITINE) tablet 500 mg, 500 mg, oral, Daily with dinner, Mohsen Fair MD,500 mg at 05/19/21 1700 ??? levothyroxine (SYNTHROID) tablet 75 mcg, 75 mcg, oral, q AM AC, Mohsen Fair MD, 75 mcg at 05/21/21 0512 ??? lidocaine (for HOWARD) jelly 1 application, 1 application, Topical, PRN, Mohsen Fair MD ??? Insert peripheral IV, , , Once AND lidocaine (XYLOCAINE) 10 mg/mL (1 %) injection 1 mL, 1 mL, infiltration, Once PRN AND Maintain IV access, , , Until discontinued AND Saline lock IV, , , Once AND sodium chloride 0.9 % flush 10 mL, 10 mL, intravenous, PRN, Mohsen Fair MD ??? Insert peripheral IV, , , Once AND lidocaine (XYLOCAINE) 10 mg/mL (1 %) injection 1 mL, 1 mL, infiltration, Once PRN AND Maintain IV access, , , Until discontinued AND Saline lock IV, , , Once AND sodium chloride 0.9 % flush 10 mL, 10 mL, intravenous, PRN, Mohsen Fair MD ??? Insert peripheral IV, , , Once AND lidocaine (XYLOCAINE) 10 mg/mL (1 %) injection 1 mL, 1 mL, infiltration, Once PRN AND Maintain IV access, , , Until discontinued AND Saline lock IV, , , Once AND sodium chloride 0.9 % flush 10 mL, 10 mL, intravenous, PRN, Mohsen Fair MD ??? magnesium chloride (SLOW-MAG) tablet 71.5 mg, 1 tablet, oral, Daily with breakfast, Mohsen Fair MD, 71.5 mg at 05/21/21958 ??? metoprolol (LOPRESSOR) injection 5 mg, 5 mg, intravenous, q5 min PRN, Mohsen Fair MD, 5 mg at 05/21/21 0554 ??? metoprolol succinate XL (TOPROL-XL) 24 hr tablet 25 mg, 25 mg, oral, Daily, Ricardo Griffin DO, 25mg at 05/21/21958 ??? miconazole (MICOTIN) 2 % powder, , Topical, BID, Mohsen Fair MD, 1 application at 05/19/21 09 ??? naloxone (NARCAN) injection 0.04 mg, 0.04 mg, intravenous, PRN, Mohsen Fair MD ??? naloxone (NARCAN) injection 0.4 mg, 0.4 mg, intravenous, PRN, Mohsen Fair MD ??? nitroglycerin (NITROSTAT) SL tablet 0.4 mg, 0.4 mg, sublingual, q5 min PRN, Mohsen Fair MD,0.4 mg at 05/15/21 1340 ??? ondansetron (ZOFRAN) 4 mg/5 mL solution 4 mg, 4 mg, oral, q8h PRN, Mohsen Fair MD ??? ondansetron (ZOFRAN) injection 4 mg, 4 mg, intravenous, q8h PRN, Mohsen Fair MD, 4 mg at 05/21/21 1307 ??? ondansetron ODT (ZOFRAN-ODT) disintegrating tablet 4 mg, 4 mg, oral, q8h PRN, Mohsen Fair MD, 4 mg at 05/18/21 1230 ??? pantoprazole (PROTONIX) EC tablet 40 mg, 40 mg, oral, q AM AC, Mohsen Fair MD, 40 mg at 05/21/21 0512 ??? phenylephrine in NS (SUZANNE-SYNEPHRINE) 20 mg/250 mL (80 mcg/mL) infusion, 40- 400 mcg/min, intravenous, Titrated, Celestine Jameson DO, Held at 05/21/215 ??? predniSONE (DELTASONE) tablet 5 mg, 5 mg, oral, Daily, Mohsen Fair MD, 5 mg at 05/21/21958 ??? promethazine (PHENERGAN) 6.25 mg in sodium chloride (NS) 0.9 % 50 mL (0.125 mg/mL) IVPB, 6.25 mg, intravenous, q6h PRN, Mohsen Fair MD, Stopped at 05/14/212009 ??? senna (SENOKOT) tablet 8.6 mg, 1 tablet, oral, BID, Mohsen Fair MD, 8.6 mg at 05/21/21958 ??? sertraline (ZOLOFT) tablet 25 mg, 25 mg, oral, Nightly, Mohsen Fair MD, 25 mg at 05/20/212114 ??? sodium chloride (NS) 0.9 % infusion 1,000 mL, 1,000 mL, intravenous, Continuous, Mohsen Fair MD, Stopped at 05/21/21 0813 ??? [COMPLETED] Prepare/Crossmatch RBC: 1 Units, , , Once AND [COMPLETED] Transfuse RBC: 1 Units, , intravenous, Transfusion AND [COMPLETED] Nursing communication: Ensure provider has obtainedInformed Consent for Blood Transfusion, , , Once AND Vital Signs, , , PRN AND sodium chloride (NS) 0.9 % infusion 250 mL, 250 mL, intravenous, PRN, Stopped at 05/20/21 1820 AND [COMPLETED] Nursing Communication: Transfusion Reaction Management, , , Once, Ana Maria Narvaez MD ??? [COMPLETED] Prepare/Crossmatch RBC: 1 Units, , , Once AND [COMPLETED] Transfuse RBC: 1 Units, , intravenous, Transfusion AND [COMPLETED] Nursing communication: Ensure provider has obtainedInformed Consent for Blood Transfusion, , , Once AND Vital Signs, , , PRN AND sodium chloride (NS) 0.9 % infusion 250 mL, 250 mL, intravenous, PRN AND [COMPLETED] Nursing Communication: Transfusion Reaction Management, , , Once, Ricardo Griffin, DO ??? sodium chloride 0.9 % flush 20 mL, 20 mL, intravenous, PRN, Mohsen Fair MD ??? sulfaSALAzine (AZULFIDINE) tablet 1,000 mg, 1,000 mg, oral, BID, Mohsen Fair MD, 1,000 mg at 05/21/21 0959 Allergies Allergen Reactions ??? Bactrim [Sulfamethoxazole-Trimethoprim] Swelling ??? Betadine [Povidone-Iodine] ??? Fish Derived ??? Iodine ??? Other [place] products ??? Shellfish Containing Products Review of Systems The following portions of the patient's history were reviewed and updated as appropriate: allergies,current medications, past family history, past medical history, past social history, past surgical history and problem list. Review of Systems A comprehensive review of systems was negative.. Objective BP (!) 150/65 (BP Location: Left arm, Patient Position: Semi-Mims's) Pulse 66 Temp 36.8 ??C (98.2 ??F) (Oral) Resp 15 Ht 1.524 m Wt 73.9 kg SpO2 95% BMI 31.82 kg/m?? @[email or web address]@ Body mass index is 31.82 kg/m??. Physical Exam BP (!) 150/65 (BP Location: Left arm, Patient Position: Semi-Mims's) Pulse 66 Temp 36.8 ??C (98.2 ??F) (Oral) Resp 15 Ht 1.524 m Wt 73.9 kg SpO2 95% BMI 31.82 kg/m?? General Appearance: Alert, cooperative, no distress, appears stated age Head: Normocephalic, without obvious abnormality, atraumatic Eyes: PERRL, conjunctiva/corneas clear, EOM's intact, fundi benign, both eyes Ears: Normal TM's and external ear canals, both ears Nose: Nares normal, septum midline,mucosa normal, no drainage or sinus tenderness Throat: Lips, mucosa, and tongue normal; teeth and gums normal Neck: Supple, symmetrical, trachea midline, no adenopathy; thyroid: not enlarged, symmetric, no tenderness/mass/nodules; no carotid bruit or JVD Back: Symmetric, no curvature, ROM normal, no CVA tenderness Lungs: Clear to auscultation bilaterally, respirations unlabored Breasts: No masses or tenderness Heart: Regular rate and rhythm, S1 and S2 normal, no murmur, rub, or gallop Abdomen: Soft, non-tender, bowel sounds active all four quadrants, no masses, no organomegaly Pelvic: Deferred Extremities: Extremities normal, atraumatic, no cyanosis or edema Pulses: 2+ and symmetric Skin: Skin color, texture, turgor normal, no rashes or lesions Lymph nodes: Cervical, supraclavicular, and axillary nodes normal Neurologic: Normal Lab Review @RESULTRCNT@ No components found for: CBC] No components found for: CMP] No results displayed because visit has over 200 results. Lab on 09/10/2020 Component Date Value Ref Range Status ??? Sodium 09/10/2020 138 134 - 144 mmol/L Final ??? Potassium 09/10/2020 4.0 3.5 - 5.2 mmol/L Final ??? Chloride 09/10/2020 99 97 - 108 mmol/L Final ??? CO2 09/10/2020 29 18 - 29 mmol/L Final ??? Anion Gap 09/10/2020 10 3 - 11 mmol/L Final ??? BUN 09/10/2020 32.0* 8.0 - 27.0 mg/dL Final ??? Creatinine 09/10/2020 0.95 0.57 - 1.00 mg/dL Final ??? Glucose, Serum 09/10/2020 182* 65 - 99 mg/dL Final ??? Calcium 09/10/2020 8.7 8.5 - 10.1 mg/dL Final ??? AST 09/10/2020 18 0 - 50 U/L Final ??? ALT 09/10/2020 32 0 - 32 U/L Final ??? Alkaline Phosphatase 09/10/2020 117 25 - 165 U/L Final ??? Total Protein 09/10/2020 5.5* 6.4 - 8.4 g/dL Final ??? eGFR (CKD-EPI) 09/10/2020 60* >60 (CKD-EPI) mL/min/1.73 m2 Final ??? Albumin 09/10/2020 3.2* 3.4 - 5.0 g/dL Final ??? Bilirubin, Total 09/10/2020 0.4 <=1.2 mg/dL Final ??? BUN/Creatinine Ratio 09/10/2020 33.7* 7.0 - 24.0 Final ??? CRP (mg/dL) 09/10/2020 3.8* <=0.5 mg/dL Final ??? Sed Rate 09/10/2020 10 <=40 mm/hr Final ??? Brock 09/10/2020 35 0 - 50 units Final Negative <45 Equivocal 45 - 50 Positive >50 ??? ACCA 09/10/2020 7 0 - 90 units Final Negative <80 Equivocal 80 - 90 Positive >90 ??? ALCA 09/10/2020 7 0 - 60 units Final Negative <55 Equivocal 55 - 60 Positive >60 ??? Mannobioside Ab.IgG 09/10/2020 4 0 - 100 units Final Negative < 90 Equivocal 90 - 100 Positive >100 This test was developed and its performance characteristics determined by [facility]. It has not been cleared or approved by the Food and Drug Administration. The FDA has determined that such clearance or approval is not necessary. ??? Atypical P-ANCA 09/10/2020 Negative Negative Final ??? Comments 09/10/2020 Comment Final Pattern is not suggestive of Inflammatory Bowel Disease ??? Deaminated Gliadin Ab, IgA 09/10/2020 2 0 - 19 units Final Negative 0 - 19 Weak Positive 20 - 30 Moderate to Strong Positive >30 ??? Deaminated Gliadin Ab, IgG 09/10/2020 <1 0 - 19 units Final Negative 0 - 19 Weak Positive 20 - 30 Moderate to Strong Positive >30 ??? Tissue Transglutaminase Ab, IgA 09/10/2020 <2 0 - 3 U/mL Final Negative 0 - 3 Weak Positive 4 - 10 Positive >10 Tissue Transglutaminase (tTG) has been identified as the endomysial antigen. Studies have demonstr- ated that endomysial IgA antibodies have over 99% specificity for gluten sensitive enteropathy. ??? Endomysial Antibody, IgA 09/10/2020 Negative Negative Final ??? WBC Auto 09/10/2020 11.0* 3.8 - 10.1 x10e3/uL Final ??? RBC 09/10/2020 4.57 3.90 - 5.20 x10e6/uL Final ??? Hemoglobin 09/10/2020 13.6 12.0 - 15.6 g/dL Final ??? Hematocrit 09/10/2020 43.4 35.0 - 46.0 % Final ??? MCV 09/10/2020 95 81 - 100 fL Final ??? MCH 09/10/2020 29.8 27.0 - 35.0 pg Final ??? MCHC 09/10/2020 31.3* 32.0 - 37.0 g/dL Final ??? RDW 09/10/2020 17.7* 12.3 - 15.4 % Final ??? Platelets 09/10/2020 114* 150 - 400 x10e3/uL Final ??? MPV 09/10/2020 12.6* 7.4 - 10.4 fL Final ??? NRBC % 09/10/2020 0 0 /100 WBCs Final ??? Abs. NRBC 09/10/2020 0.0 x10e3/uL Final ??? % Neutrophils 09/10/2020 90 % Final ??? % Lymphocytes 09/10/2020 4 % Final ??? % Monocytes 09/10/2020 5 % Final ??? % Eosinophils 09/10/2020 0 % Final ??? % Basophils 09/10/2020 0 % Final ??? Abs. Neutrophils 09/10/2020 9.9* 1.6 - 6.9 x10e3/uL Final ??? Abs. Lymphocytes 09/10/2020 0.4* 1.1 - 4.8 x10e3/uL Final ??? Abs. Monocytes 09/10/2020 0.5 0.0 - 1.0 x10e3/uL Final ??? Abs. Eosinophils 09/10/2020 0.0 0.0 - 0.5 x10e3/uL Final ??? Abs. Basophils 09/10/2020 0.0 0.0 - 0.4 x10e3/uL Final ??? Abs. Neutrophils (Auto) 09/10/2020 9,900.0* 1,600.0-6,900.0 /uL Final Appointment on 08/03/2020 Component Date Value Ref Range Status ??? Sodium 08/03/2020 134 134 - 144 mmol/L Final ??? Potassium 08/03/2020 4.2 3.5 - 5.2 mmol/L Final ??? Chloride 08/03/2020 97 97 - 108 mmol/L Final ??? CO2 08/03/2020 22 18 - 29 mmol/L Final ??? Anion Gap 08/03/2020 15* 3 - 11 mmol/L Final ??? BUN 08/03/2020 33.0* 8.0 - 27.0 mg/dL Final ??? Creatinine 08/03/2020 1.23* 0.57 - 1.00 mg/dL Final ??? Glucose, Serum 08/03/2020 245* 65 - 99 mg/dL Final ??? Calcium 08/03/2020 9.5 8.5 - 10.1 mg/dL Final ??? AST 08/03/2020 20 0 - 50 U/L Final ??? ALT 08/03/2020 19 0 - 32 U/L Final ??? Alkaline Phosphatase 08/03/2020 98 25 - 165 U/L Final ??? Total Protein 08/03/2020 6.0* 6.4 - 8.4 g/dL Final ??? eGFR (CKD-EPI) 08/03/2020 44* >60 (CKD-EPI) mL/min/1.73 m2 Final ??? Albumin 08/03/2020 3.5 3.4 - 5.0 g/dL Final ??? Bilirubin, Total 08/03/2020 0.3 <=1.2 mg/dL Final ??? BUN/Creatinine Ratio 08/03/2020 26.8* 7.0 - 24.0 Final ??? WBC Auto 08/03/2020 12.7* 3.8 - 10.1 x10e3/uL Final ??? RBC 08/03/2020 4.50 3.90 - 5.20 x10e6/uL Final ??? Hemoglobin 08/03/2020 13.6 12.0 - 15.6 g/dL Final ??? Hematocrit 08/03/2020 41.5 35.0 - 46.0 % Final ??? MCV 08/03/2020 92 81 - 100 fL Final ??? MCH 08/03/2020 30.2 27.0 - 35.0 pg Final ??? MCHC 08/03/2020 32.8 32.0 - 37.0 g/dL Final ??? RDW 08/03/2020 14.7 12.3 - 15.4 % Final ??? Platelets 08/03/2020 468* 150 - 400 x10e3/uL Final ??? MPV 08/03/2020 11.5* 7.4 - 10.4 fL Final ??? NRBC % 08/03/2020 0 0 /100 WBCs Final ??? Abs. NRBC 08/03/2020 0.0 x10e3/uL Final ??? % Neutrophils 08/03/2020 88 % Final ??? % Lymphocytes 08/03/2020 5 % Final ??? % Monocytes 08/03/2020 7 % Final ??? % Eosinophils 08/03/2020 0 % Final ??? % Basophils 08/03/2020 0 % Final ??? Abs. Neutrophils 08/03/2020 11.2* 1.6 - 6.9 x10e3/uL Final ??? Abs. Lymphocytes 08/03/2020 0.6* 1.1 - 4.8 x10e3/uL Final ??? Abs. Monocytes 08/03/2020 0.8 0.0 - 1.0 x10e3/uL Final ??? Abs. Eosinophils 08/03/2020 0.0 0.0 - 0.5 x10e3/uL Final ??? Abs. Basophils 08/03/2020 0.0 0.0 - 0.4 x10e3/uL Final ??? Abs. Neutrophils (Auto) 08/03/2020 11,200.0* 1,600.0-6,900.0 /uL Final Admission on 07/31/2020, Discharged on 07/31/2020 Component Date Value Ref Range Status ??? POCT Glucose, Blood 07/31/2020 197* 65 - 99 mg/dL Final ??? POCT Glucose Test Comment 07/31/2020 Note: Reference Ranges revised September 24, 2019. Final ??? Pathology Final Diagnosis 07/31/2020 SEE DETAILS Final Comment: Patient: SHIRIN AGUILLON Case: [id number] Result ID: [id number] Ordering Provider: MIKE LAGUNA M.D. Collected Date: 07/31/20 Clinical History: Abdominal pain, functional diarrhea, nausea and vomiting, excessive body weight loss. FINAL DIAGNOSIS 1. DUODENUM, BIOPSY: A. Duodenal mucosa with no diagnostic alterations. B. Negative for celiac sprue. C. Negative for dysplasia or carcinoma. 2. ILEUM, SMALL BOWEL ENTERITIS, BIOPSIES: A. Acute inflammation with hemorrhage and reactive changes consistent with acute enteritis. B. Negative for granuloma formation, dysplasia or carcinoma. 3. PROXIMAL TRANSVERSE COLON ULCER, BIOPSY: A. Fragments of colonic mucosa showing acute inflammation, crypt abscess formation and reactive glandular changes. B. Negative for significant chronic inflammation, basal plasmacytosis or glandular branching. COMMENT: Part 2 and 3 showed acute inflammation with reactive changes without significant chronic inflammation. These finding can be see in acute self limiting colitis or drug induced colitis however early inflammatory bowel disease cannot be definitively ruled out. Recommend clinical and endoscopic correlation. Dane Herrera MD Pathologist 08/03/20 16:31 GROSS DESCRIPTION: 1. Three received in formalin labeled Shirin Aguillon. Designated duodenum are three apparent tissue fragments measuring 0.2-0.4 cm. Filtered into cassette 1. 2. Designated ileum are multiple tissue fragments ranging in size from 0.2-0.3 cm. Filtered into cassette 2. 3. Designated transverse colon are three apparent tissue fragments measuring 0.2-0.3 cm. Filtered into cassette 3. (BJR/kk) MICROSCOPIC DESCRIPTION 1. In compliance with [facility] regulations, the pathologist s signature on this report indicates thatthe case has been personally reviewed by the pathologist. Microscopic examination was used to arrive at the diagnosis unless indicated otherwise. 2. Small bowel/ileum biopsies show acute inflammation with cryptitis, edema, hemorrhage, and reactive changes. No significant chronic inflammation, basal plasmacytosis and crypt abscesses are identified. 3. Sections show fragments of colonic mucosa with acute inflammation of the lamina propria, crypt abscess formation and reactive glandular changes. No significant chronic inflammation with basal cellplasmacytosis is noted. (DG/chayito) [facility] - [facility] [address] [place] [address] D, [place] [address] - CLIA: [id number] End of Report ??? Campylobacter Sp, stool PCR 07/31/2020 Not Detected Not Detected Final ??? C. diff PCR Toxins A+B, stool 07/31/2020 Not Detected Not Detected Final Negative results for C. difficile PCR indicates no presence of C. difficile.?? Patient does NOT need to be in Enteric Precautions and NO treatment is necessary. Two distinct groups have been identified that can harbor C. difficile asymptomatically at very high rates. Colonization at rates up to 50% and higher have been reported in infants and rates up to 25% in cystic fibrosis patients. The association of C difficile with disease in infants under the age of 3 years is not well understood therefore results are not reported. PCR testing alone cannot distinquish C. difficile disease from a carrier state, and therefore correlation with clinical findings is required. ??? C. diff PCR Reflex to EIA 07/31/2020 No Final ??? Plesiomonas shigelloides, stool PCR 07/31/2020 Not Detected Not Detected Final ??? Salmonella species, stool PCR 07/31/2020 Not Detected Not Detected Final ??? Vibrio (parahaemolyticus,vulnificu* 07/31/2020 Not Detected Not Detected Final ??? Vibrio cholerae, stool PCR 07/31/2020 Not Detected Not Detected Final ??? Yersinia enterocolitica, stool PCR 07/31/2020 Not Detected Not Detected Final ??? E. coli (EAEC) Enteroaggregative p* 07/31/2020 Not Detected Not Detected Final ??? E. coli (EPEC) Enteropathogenic ea* 07/31/2020 Not Detected Not Detected Final ??? E. coli (ETEC)Enterotoxigenic ltA+* 07/31/2020 Not Detected Not Detected Final ??? E.coli (STEC) Shiga-like toxin stx* 07/31/2020 Not Detected Not Detected Final ??? Shigella/Ecoli (EIEC)Enteroinvasiv* 07/31/2020 Not Detected Not Detected Final ??? Cryptosporidium, stool PCR 07/31/2020 Not Detected Not Detected Final ??? Cyclospora cayetanensis, stool PCR 07/31/2020 Not Detected Not Detected Final ??? Entamoeba histolytica, stool PCR 07/31/2020 Not Detected Not Detected Final ??? Giardia lamblia, stool PCR 07/31/2020 Not Detected Not Detected Final ??? Adenovirus F 40/41, stool PCR 07/31/2020 Not Detected Not Detected Final ??? Astrovirus subtypes 1-8, stool PCR 07/31/2020 Not Detected Not Detected Final ??? Norovirus I + II, stool PCR 07/31/2020 Not Detected Not Detected Final ??? Rotavirus A, stool PCR 07/31/2020 Not Detected Not Detected Final ??? Sapovirus (I, II, IV, V), stool PCR 07/31/2020 Not Detected Not Detected Final Clinical Support on 07/28/2020 Component Date Value Ref Range Status ??? SARS-CoV-2 (COVID-19) Qual PCR 07/28/2020 Not Detected Not Detected Final Comment: Performed using high-throughput nucleic acid amplification platforms at [facility] using either TaqPath COVID-19 Combo Kit assay or Quidel Emily SARS-CoV-2 assay, both FDA-cleared Emergency Use Authorization (EUA) assays (details available upon request). TaqPath COVID-19 Combo Kit assay was validated by [employer] using nasopharyngeal swab, nasopharyngeal aspirate, and bronchoalveolar lavage samples, and Quidel Emily SARS-CoV-2 assay was validated by [employer] using nasopharyngeal and oropharyngeal swab samples. Other sample types have not been independently validated by [facility] but information on preferred and acceptable collection sites and collection procedures may be obtained at the CDC website (https://www.cdc.gov/co ronavirus/2019-ncov/lab/uyssjkoobn-obcvsfza-owguivwyf.html), which is updated frequently. Negative results do not preclude infection with SARS-CoV-2 virus and should not be the sole basis of a patient management decision. In some patients repeat testing at various time points or from various collection sites may be necessary for virus detection. False-negative results may arise from improper sample collection, degradation of viral RNA during shipping or storage, the presence of RT-PCR inhibitors, and/or mutation in the SARS-CoV-2 virus. Pooled testing may be used for some specimens. Pooled testing been has been validated at [facility] with oversight by [facility] Department of Health, using no greater than four specimens per pool. Negative results from pools are reported directly while positive results are reflexed to neat (unpooled) testing of individual specimens. [facility] validation studies demonstrated minimal effect on sensitivity with this level of pooling. The impact of vaccines, antiviral therapeutics, antibiotics, and chemotherapeutic or immunosuppressant drugs on assay performance has not been evaluated. Please see [facility] website for updated testing algorithms and other information. Performed at [facility] - CLIA #:[id number], [address] Abstract on 07/27/2020 Component Date Value Ref Range Status ??? External LDL Cholesterol 06/26/2020 48 mg/dL Final ] Assessment/Plan 75 year old female with??history of cholecystectomy in 1985, ventral hernia repair surgery, hypothyroidism, diabetes, rheumatoid arthritis on??Xeljanz, hypertension,??anticoagulated with Eliquis??and plavix??Who presents for consultation for dysphagia for the past 1 year. ??Patient was mated to the hospital on Apr 15, 2021 for weakness and altered mental status With acute kidney injury and hyperkalemia and sepsis in which she was treated with antibiotics. ?Patient complains of dysphagiato solids only. Patient can drink water okay. Patient also has odynophagia but no history of asthma.Patient's bowel movements currently is one time per day and well formed. Patient currently taking Xeljanz for her rheumatoid arthritis. Patient denies family history colon cancer, IBD or celiac disease. Patient denies rectal bleeding, nausea vomit, hematemesis, change in bowel habits. ?? 07/31/2020- egd/colon-??Normal upper endoscopy, status post right hemicolectomy, 2.5 cm solitary ulcer seen in the transverse colon status post biopsy which showed crypt abscesses concerning for possible Crohn's disease.Biopsies of the duodenum was normal. Biopsy of the small bowel showed acute inflammation with hemorrhage consistent with acute enteritis. Negative for granulomas dysplasia or carcinomawas during the small bowel of the ileum. ? At this time, I do recommend upper endoscopy with anesthesia for the patient's dysphagia and odynophagia. Differential diagnosis includes infection versus candidiasis which is very high due to the patient is on immunosuppression with Xeljanz versus stricture versus malignancy versus Schatzki's ring versus eosinophilic esophagitis. Given the fact that the patient is on both Plavix and Eliquis, I recommend holding both at this point in time. The patient's upper endoscopy will be tentatively scheduled for this coming due to the anticoagulation. N.p.o. at midnight??prior to day of egd. ?? 05/20/2021- egd- Impression: - Successful TTS Cre balloon dilation performed up to 20 mm with good mucosal tear of distal esophagus, Mild nonerosive gastritis status post biopsy ?? Recommendations: -Await pathology., -ok discharge home from gi standpoint Recs: 1) await bx results 2) ok discharge home today from gi standpoint Will sign off Mohsen Fair MD 05/21/2021 1:56 [address] - 05/21/2021 10:30 AM PDT NUTRITION FOLLOW UP: ASSESS: 75 yo F admitted for sepsis and CAMILLE with hyperkalemia. Urine output improved, dialysis beingheld per notes. Pt s/p debridement of bilateral calf wound 04/18. Pt had a prolonged NPO status so Dobhoff was placed 04/22, TF was tolerated at goal. Pt pulled out NGT 04/25, tube feeds off. Diet advanced per ST 04/26. PO 25-75% x 2-3 days, noted improvement with family at bedside; notes indicate no advance feeding interventions with decreased oral intake (04/30). RD Spoke with pt 05/07 afternoon, states that she cannot have Ensure because she is allergic to it. She also reported that she does not like the Sami. Pt was transferred to CCU 05/21 due to hypotension. She is currently on a FL diet, s/p EGD with esophageal dilation 05/20. PMHX: Arthritis, T2DM, PNA, HLD, HTN, kidney disease, UTI LABS: reviewed. Na 131, Bone Char Operator 1.41, Glu 159, Ca 8.2. MEDS: Insulin, colace, magnesium chloride, senna, lactobacillus, prednisone GI: BM 05/21 SKIN: ulcer on R& L calf, stg 2 PI on coccyx CURRENT WT: 73.1 kg ( 05/21); BMI 31.8 kg/m2, IBW: 45.5 kg, admit wt: 72.4kg DIET: Full Liquid diet, PO 25-50% (SHELLFISH ALLERGY) ESTIMATED NEEDS: CAMILLE, BMI, wounds Calories: 4964-5249 kcal/day (20-25 kcal/kg BW) Protein: 55-70 g/day (1.0-1.2 g/kg IBW) Fluids: 2125-2550ml/day (25-30 ml/kg) NUTRITION DIAGNOSIS: 1) Inadequate oral intake related to decreased ability to consume sufficient energy as evidenced by current NPO status.--IMPROVING 2) Increased kcal/pro needs related to increased nutrient demand as evidence by pt with multiple pressure injuries. --PERSISTS 3) Chew/swallow difficulty due to AMS as evidenced by modified diet texture per AU PAIR.--IMPROVING NUTRITION INTERVENTION: 1) Continue current diet per speech therapy. Pt is currently on a FL diet s/p esophageal dilation. Consider tube feeding if in line with pt goals of care d/t increased healing needs and variable to poor po intake. 2) Pt reported that she does not like Sami at all and had two full cups of it on her bedside table.Will cancel Sami order. 3) Diabetes ed completed 05/10. MONITOR/EVALUATE: PO intake, diet tolerance, GI, wounds, labs, POC, nutrition status. Follow per moderate nutrition risk guidelines. Ricardo Rosa DO - 05/21/2021 8:44 AM PDT [facility] Progress Note Inpatient Primary Care [facility] Patient Name: Shirin Aguillon Date of : 1945 Age: 75 y.o. Code Status: Full Code Primary Care Physician: Rogelio Braga MD Admitting Provider: Ana Maria Narvaez MD Attending Provider: Denise Miller DO Admit Date: 04/15/2021 Date of Service: 05/21/2021 Hospital Day: 35 Assessment and Plan Shirin Aguillon is a 75 y.o. female anticoagulated with Eliquis??with a hx notable for type II diabetes mellitus, hypertension, hyperlipidemia, CKD, and rheumatoid arthritis??who presents to the ED??for evaluation of altered mental status and found to be in CAMILLE with hyperkalemia. Patient was treatedwith temporary hemodialysis and course of antibiotics for sepsis. Currently being treated for failure to thrive and deconditioning, autoimmune disease, bilateral lower extremity wounds and unstable angina. Today's plan: - Adjust rate control: Diltiazem, Metoprolol XR, stop carvedilol, continue Apixaban & Plavix, noaspirin - pain, nausea, GERD control Discharge planning: - Working with SW for LTC placement options - multiple LTC/SNF denials thus far - Pt lives on [facility] with family support. Working with HH for possible HH services [facility]. This option is unideal however pt and family are agreeable - Pending below acute medical issues workup & treatment Atrial fibrillation with rapid ventrilcular response ,??present on admission, chronic. RVR resolved and Recurred overnight 05/20, resolved 05/21. [id number] score of at least 4. No Afib notable on most recent Peggy patch outpatient. HR 100-130, etiology likely secondary to pain and esophageal discomfort following EGD & dilatation - Continue her ambulatory diltiazem XR 240 mg and Apixaban - Transitioned rate control from Carvedilol to Metoprolol XR due to hypotension Esophageal tear s/p balloon dilatation and erosive gastritis, present on admission, active Noted on EGD 05/20/2021, balloon dilatation performed, see GI note for full details -Continue daily PPI, GI cocktail as needed, pain control ???Anemia stable, no blood loss notable. Resume anticoagulation antiplatelet for cardiac disease -Await surgical pathology. Follow-up with GI outpatient Hypotension, not poa, resolved Secondary to A. fib RVR overnight ???Resolved with IV fluid bolus and control of A. fib rate control Acute on Chronic anemia,??present on admission, stable.?? Iron profile is compatible with anemia ofchronic disease. - Acutely due to post-cath hematoma - was previously recommend Outpatient colonoscopy - Hgb goal >8.0, 1 unit PRBCs 05/19 R groin hematoma, not present on admission, active & improving Post op complication from cardiac catheterization, likely precipitated by the medical need for dual antiplatelet and anticoagulation therapies. Hematoma stable - Pressure sandbag applied with stabilization of hematoma, apply ice PRN for pain, defer decision toultrasound if needed to cardiology team - Stable, improving, continue holding anticoagulation for now Dysphagia, not present on admission, active Reportedly pt has had dysphagia to solids for 'years,' however it worsened acutely recently with significant nausea and indigestion. Per records pt has had EGD last year 08/18 - Continue PPI & tums - AU PAIR eval; recommended GI evaluation - Gastroenterology Dr Fair consulted; plan for EGD today 05/20 after ~48hrs off apixaban anticoagulation, d/w cardiology. Continuing dual antiplatelet Nausea on chronic GERD, not present on admission, improving Waxing and waning, amenable to zofran, associated with burning epigastric pain - nausea control prn, treatment of GERD - continue PPI, Tums with meals, upright for meals Hyponatremia, present on admission, waxing and waning Fluctuated as fluid status and renal function changed throughout hospital course. Currently likely secondary to decreased PO intake, fluid shifts, iv contrast - monitor for now, encourage po fluids, treat nausea & dysphagia as above Coronary Artery Disease s/p ANDREA to LAD, present on admission, active EKG 05/15 showed diffuse T-wave inversions which were new, Trial of SL nitroglycerin significantly lowered patient's blood pressure. - Pt received Heparin infusion for about 36hrs until cardiac cath - Cardiology consulted; Cardiac Cath 05/17 resulted in ANDREA to LAD - Continue daily ASA, Plavix Soft tissue ulcerated wounds of bilateral lower extremities, POA. Improving. 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 Patient reports she developed these wounds following an allergic reaction to TMP-SMX. She was followed by Rheumatology for this; previously on Xeljanz, Leflunomide and Sulfasalazine for Crohn's and seronegative RA. Followed by Dr Shepherd. Pt reports another [employer] sales consultant switched her to Prednisone daily however I am not able to view these records - S/p bilateral calf wound debridement per GS, Micro positive for light growth pseudomonas and zenaida albicans - Continue wound care, wound consult team following; appreciate their excellent care and recommendations. Examined 05/07, no evidence of subcutaneous infection. See media tab - treatment of presumed autoimmune etiology and diabetes - conservative pain control. OK for 10mg [place] ~30m prior to wound dressing changes - Needs Outpatient Referral to Gen Surg for wound Biopsy - Pt had biopsy in the past at [facility] per report and records. Will reach out to try to obtain the report or pathology findings Inflammatory bowel disease and rheumatoid arthritis on prednisone therapy, present on admission, active - continue oral Prednisone every day - Previously on Xeljanz, Leflunomide and Sulfasalazine. Reportedly discontinued this recently for prednisone and also discontinued outpatient Cipro for recurrent UTis - Discussed with Dr Shepherd Rheumatology 05/07, pt safe to resume & continue Sulfasalazine for Crohn's. Presumably the ulcers are from IBD however not safe to resume xeljanz and leflunomide due to infection - Recommend F/u with outpt rheumatology outpt for mgmt Depression, not present on admission, active Unclear if this is acute on chronic, may be related to adjustment disorder due to prolonged hospitalization and difficulty with placement, separation from family, decreased functional status and need for increased care. Differential includes bipolar depression, major depression - Continue sertraline, levocarnitine (give with food) - Recommend trial outpt N-acetylcysteine 500mg bid adjunct supplement for depression Weakness, Fatigue & Deconditioning, POA, improving - Functional status prior to admission:??Ambulates with a walker, stair chair at home, few stairs onher own. - Continue Physical therapy; recommending rehabilitation - SNF vs HH, disposition planning. Encourage pt to strengthen. Up in chair for meals, ambulate TID Chronic kidney disease III, present on admission, stable Baseline Cr around 1.2-1.3 during this admission, previous baseline around 1.1 prior. Likely she is at a stable baseline - UA / urine protein creatinine ratio exhibited significant nephropathy likely diabetic - Discontinue EMILY due to renal intolerance, d/w Nephro curbside - BUN/Cr did not improve much with supplemental IVF - Advised pt to drink >2.5L fluids daily Constipation, not present on admission, acute on chronic Likely due to low mobility and depressed PO intake, opiates likely contributory pt has diarrhea from Crohns disease at baseline - Begin daily bowel regimen (conservative), no fiber or laxatives due to crohn's disease Cystitis, acute on chronic, present on admission, resolved and now recurred & resolved Previously patient had evidence of Urogenital sepsis on admission, treated with broad spectrum antibiotics and a urine culture did not grow a pathogen. Pt has history of outpt Ciprofloxacin regimen, not currently taking per history and records. - 05/07 symptoms of encephalopathy, abdominal pain and polyuria, slowly improving - Urine culture grew Apollo levy susceptible to Cipro which she has tolerated well in the past - Completed 3 day course of Abx, cefepime & ciprofloxacin Type 2 diabetes mellitus uncontrolled, POA, chronic. - Glargine reduced on 04/27, discontinued on 04/28 - Sliding scale as needed plus lantus, currently well controlled -F/u outpt for monitoring and/or oral medicines with pcp Decreased oral intake, not POA. Likely related to chronic disease (inflammatory), GERD and decreased appetite from acute illness - Encourage food and fluid, no advance feeding interventions ?? Cardiac Focal wall motion abnormality, present on admission, resolved Echo 04/21 exhibited area of wall motion abnormality, EF 50% (WNL). Seen by cardiology, recommended optimal medical management with outpt f/u - Continue Betablocker, statin, EMILY, apixaban - Repeat Echo 05/15 exhibited subtle WMA & improvement in EF Hypokalemia with Hypomagnesemia, not present on admission. Resolved. - Replete both electrolytes as needed. Likely secondary to diarrheal losses. Hypothyroidism, poa, chronic. Resumed Levothyroxine po 05/13 Respiratory distress, present on admission. Resolved. Metabolic acidosis with respiratory partial compensation, not present on admission. Resolved. CAMILLE, acute, present on admission. Resolved. Diarrhea, not present on admission, Resolved. Partly due to Crohn's Sepsis, acute, present on admission. Resolved. Body jerking,??present on admission. Resolved. VTE Prophylaxis: Apixaban and clopidogrel Code Status: Full code Disposition: May be ready to discharge in 2 to 3 days pending resolution of medical issues Current Hospital Medications Allergies Allergies Allergen Reactions ??? Bactrim [Sulfamethoxazole-Trimethoprim] Swelling ??? Betadine [Povidone-Iodine] ??? Fish Derived ??? Iodine ??? Other [place] products ??? Shellfish Containing Products Medications Scheduled apixaban, 5 mg, oral, BID atorvastatin, 40 mg, oral, Nightly clopidogreL, 75 mg, oral, Daily diltiazem CD, 240 mg, oral, Daily insulin glargine, 6 Units, subcutaneous, Nightly insulin lispro, 0-5 Units, subcutaneous, Nightly insulin lispro, 0-6 Units, subcutaneous, TID with meals lactobacillus rhamnosus GG, 1 capsule, oral, Daily levOCARNitine, 500 mg, oral, Daily with dinner levothyroxine, 75 mcg, oral, q AM AC magnesium chloride, 1 tablet, oral, Daily with breakfast metoprolol succinate XL, 25 mg, oral, Daily miconazole, , Topical, BID pantoprazole, 40 mg, oral, q AM AC predniSONE, 5 mg, oral, Daily senna, 1 tablet, oral, BID sertraline, 25 mg, oral, Nightly sulfaSALAzine, 1,000 mg, oral, BID As needed ??? acetaminophen ??? calcium carbonate ??? dextrose 50% (D50W) ??? diazePAM ??? diphenhydrAMINE ??? flumazeniL ??? HYDROcodone-acetaminophen ??? HYDROmorphone ??? lidocaine ??? Insert peripheral IV AND lidocaine AND Maintain IV access AND Saline lock IV AND sodium chloride ??? Insert peripheral IV AND lidocaine AND Maintain IV access AND Saline lock IV AND sodium chloride ??? Insert peripheral IV AND lidocaine AND Maintain IV access AND Saline lock IV AND sodium chloride ??? metoprolol ??? naloxone ??? naloxone ??? nitroglycerin ??? ondansetron ??? ondansetron ??? ondansetron ODT ??? promethazine ??? [COMPLETED] Prepare/Crossmatch RBC: 1 Units AND [COMPLETED] Transfuse RBC: 1 Units AND [COMPLETED] Nursing communication: Ensure provider has obtained Informed Consent for Blood Transfusion AND Vital Signs AND sodium chloride AND [COMPLETED] Nursing Communication: Transfusion Reaction Management ??? [COMPLETED] Prepare/Crossmatch RBC: 1 Units AND [COMPLETED] Transfuse RBC: 1 Units AND [COMPLETED] Nursing communication: Ensure provider has obtained Informed Consent for Blood Transfusion AND Vital Signs AND sodium chloride AND [COMPLETED] Nursing Communication: Transfusion Reaction Management ??? sodium chloride Infusions phenylephrine, 40-400 mcg/min, Last Rate: Stopped (05/21/21444) sodium chloride, 1,000 mL, Last Rate: Stopped (05/21/21812) Subjective Patient's Update Patient feels weak and nauseous, no chest pain, no epigastric burning. Has no acute concerns at this time. Chest palpitations and lightheadedness resolved from previous Interval Update Overnight patient had A. fib RVR and hypotension, converted to sinus rhythm at 0830 per telemetry Objective BP 119/68 (BP Location: Left arm, Patient Position: Semi-Mims's) Pulse 74 Temp 36.7 ??C (98.1 ??F) (Oral) Resp 16 Ht 1.524 m Wt 73.9 kg SpO2 96% BMI 31.82 kg/m?? Intake/Output Summary (Last 24 hours) at 05/21/2021 1828 Last data filed at 05/21/2021 1400 Gross per 24 hour Intake 1900 ml Output 800 ml Net 1100 ml Physical Exam Vitals and nursing note reviewed. Constitutional: General: She is not in acute distress. Appearance: She is obese. She is ill-appearing (chronically). HENT: Head: Normocephalic. Comments: Temporal wasting notable Hair loss alopecia notable Eyes: Extraocular Movements: Extraocular movements intact. Cardiovascular: Rate and Rhythm: Normal rate and regular rhythm. Pulses: Normal pulses. Heart sounds: No murmur heard. Pulmonary: Effort: Pulmonary effort is normal. No respiratory distress. Breath sounds: Normal breath sounds. No wheezing, rhonchi or rales. Abdominal: General: Abdomen is flat. There is no distension. Tenderness: There is no guarding. Genitourinary: Comments: R groin cath site with tender ecchymotic area with clean dry intact dressing in place, mild TTP Musculoskeletal: General: Tenderness (to bilateral lower exremities) present. Normal range of motion. Skin: General: Skin is warm and dry. Coloration: Skin is pale. Skin is not jaundiced. Findings: Bruising present. Comments: Thin and fragile skin Neurological: Mental Status: She is alert. Mental status is at baseline. Motor: Weakness present. Psychiatric: Attention and Perception: Attention normal. Mood and Affect: Mood is anxious and depressed. Speech: Speech normal. Comments: Flat affect Labs and ECG Hematology Results from last 7 days Lab Units 05/21/21 0116 05/20/21 0544 05/19/21 2019 05/19/21 0420 05/19/21 0420 WBC AUTO x10e3/uL 9.4 7.4 -- -- 6.7 HEMOGLOBIN g/dL 10.6* 9.2* 9.3* < > 7.7* HEMATOCRIT % 34.0* 29.8* 29.6* < > 25.6* MCV fL 83 82 -- -- 83 PLATELETS AUTO x10e3/uL 297 225 -- -- 252 < > = values in this interval not displayed. Chemistries Results from last 7 days Lab Units 05/21/21 0116 05/20/21 0544 05/19/21 0420 SODIUM mmol/L 131* 135 133* POTASSIUM mmol/L 4.7 4.6 4.5 CHLORIDE mmol/L 101 102 101 CO2 mmol/L 24 26 25 BUN mg/dL 16.0 18.0 19.0 CREATININE mg/dL 1.41* 1.40* 1.57* GLUCOSE mg/dL 159* 118* 147* CALCIUM, SERUM mg/dL 8.2* 8.4* 8.5 MAGNESIUM mg/dL 2.1 1.6 2.0 Estimated Creatinine Clearance: 31.9 mL/min (A) (by C-G formula based on SCr of 1.41 mg/dL (H)). Urinalysis Microbiology Urine culture Apollo Alvesandy 05/05 and 05/07 Diagnostic Imaging Imaging results: XR CHEST 1 VIEW IMPRESSION: Dobbhoff tube tip is in the region of distal stomach lumen below the right hemidiaphragm. No free air under the diaphragm. Mild pulmonary vascular congestion. No gross pneumothorax. Reviewed by: Jacinto Rodriguez M.D. on 04/23/2021 at 16:54 ECHOCARDIOGRAM COMPLETE Version: 1 Study ID: [id number] ?? [facility] [address] [place]. [address] Phone: ADULT ECHOCARDIOGRAM ?? Name: SHIRIN AGUILLON Study Date: 04/23/2021, 7: 55 AM : 1945 BP: 147 / 80 mmHg Gender: Female Height: 60 in Age: 75 Years Weight: 187.393 lb Pt. Location: [facility]^2008^2008-10 BSA: 1.82 m? Ordering: JORDAN RAMSEY Referring: Leon Hospitalist Clinician: Carli Vasquez Reason For Study: Dyspnea History: Summary Statements This is a technically difficult study characterized by limited endocardial visualization. Next time recommend Definity echocontrast if possible. Normal sinus rhythm with occasional PAC's. Normal LV size and wall thickness. There is subtle mid-anterior hypokinesis, but normal wall motion otherwise. EF is 50-55%. Stage II diastolic dysfunction. Normal chamber sizes. Aortic sclerosis without stenosis. Otherwise no valvular abnormalities. Compared to prior study 09/2019, focal wall motion abnormality involving mid-anterior segment is newly described Electronically signed by: Lucinda Bahena M.D. 04/23/2021, 3: 19 PM Results for orders placed during the hospital encounter of 04/15/21 ECHOCARDIOGRAM LIMITED Narrative [facility] +---------+ : : [address] : : : : [place], : : : : [place] [id number] : : : : Phone: [phone] Echocardiogram Report + + :Name: SHIRIN AGUILLON Study Date: 05/16/2021 Height: 60 in : :[facility] #: [id number] ReadingLocation: Weight: 168 lb : : Gender: Female BSA: 1.7 m2 : :: 1945 Age: 75 yrs BP: 135/83 mmHg: :Reason For Study: Assess LV wall motion and EF : :Ordering Physician: MARY, : :NIKKO Performed By: Veronica Raphael : :Referring: RED TEAM : + + Interpretation Summary Limited Echo: 1) Normal left ventricular size and systolic f unction (EF 55-60%). 2) Subtle mid anterior and mid anterolateral wall hypokinesis present. Septal bounce present. 3) Compared to the Echo done 04/23/2021, no significant change when compared visually. Procedure: A two-dimensional transthoracic echocardiogram with color flow and Doppler was performed in limited views only to assess Assess LV wall motion, EF. The study quality was technically adequate. Comparison is made with the echocardiogram of 04/23/2021. The patient was in normal sinus rhythm during the exam. Left Ventricle: The left ventricle is normal in size and wall thickness. A false chord is noted (normal variant). The ejection fraction is estimated to be 55-60%. Subtle mid anterior and mid anterolateral wall hypokinesis present. Septal bounce present. Tricuspid Valve: The tricuspid valve is normal in structure and function. There is a trace or physiologic amount of tricuspid regurgitation. Pulmonary artery pressures cannot be estimated because of the lack of a measurable TR jet velocity but the IVC suggests a CVP of around 3 mmHg. Great Vessels: The IVC is of normal diameter and collapses greater than 50% with a sniff. This suggests a low right atrial pressure of 3 mm Hg. Pericardium/ Pleura There is no pericardial effusion. There is an anterior echo-free space consistent with a fat pad. MMode/2D Measurements & Calculations LVIDd: 4.1 cm IVC diam: 1.6 cm LVIDs: 2.6 cm IVSd: 0.77 cm LVPWd: 0.51 cm LV bai. diameter/BSA (cm/m^2): 2.4 LV sys. diameter/BSA (cm/m^2): 1.5 FS: 35.7 % Reading Physician:10:39 AM Results for orders placed during the hospital encounter of 04/15/21 SI STENT ANDREA - CORONARY Narrative PROCEDURE PERFORMED: 1. Percutaneous intervention on the left anterior descending. 2. Supervision for moderate sedation. PROCEDURAL DETAILS: Please refer to the procedure log for complete details. Briefly, Dr. Tan did the diagnostic angiogram. I was asked to do an intervention. The patient was given moderate sedation with IV versed and fentanyl by a dedicated nurse under my [id number] supervision using physiological monitoring for the duration of the procedure. INTERVENTIONAL DETAILS: Using a Voda 3.0 guide and a Runthrough wire, we were able to balloon dilate this proximal LAD lesion which was around 80-90%. It was then stented with a 3.5 x 15 mm Xience drug coated stent delivered at 14 atmospheres with excellent angiographic results. Dual antiplatelet therapy per guidelines. Total contrast used 15 cc. Electronically signed by: Ricardo Griffin DO 05/21/2021 at 6:28 PM Portions of today's documentation have been created with the assistance of voice recognition software. Therefore, it may contain anomalous punctuation, anomalous independent misrecognitions, word substitutions, insertions or omissions. Occasional wrong-word or phonetically similar substitutions may also occur, all due to the inherent limitations of voice recognition software. Attempts to correct the above have been made by Ricardo Grififn DO but it is recommended that the chart be read carefully to recognize, using context, where the substitutions may have occurred. Associated attestation - Denise Miller DO - 05/22/2021 8:29 AM PDT I saw and evaluated the patient 05/21/21, participating in the villarreal portions of the service. I reviewed the resident???s note. I agree with the resident???s findings and plan.Russell Cantu LCSW - 05/20/2021 11:10 AM PDT Social Work Note: PRECIPITATOR OPERATOR made a referral to [facility] to see if they would be able to accept pt. Russell Cantu LCSW icardo Griffin DO - 05/20/2021 8:10 AM PDT [facility] Progress Note Inpatient Primary Care [facility] Patient Name: Shirin Aguillon Date of : 1945 Age: 75 y.o. Code Status: Full Code Primary Care Physician: Rogelio Braga MD Admitting Provider: Ana Maria Narvaez MD Attending Provider: Denise Miller DO Admit Date: 04/15/2021 Date of Service: 05/20/2021 Hospital Day: 34 Assessment and Plan Shirin Aguillon is a 75 y.o. female anticoagulated with Eliquis??with a hx notable for type II diabetes mellitus, hypertension, hyperlipidemia, CKD, and rheumatoid arthritis??who presents to the ED??for evaluation of altered mental status and found to be in CAMILLE with hyperkalemia. Patient was treatedwith temporary hemodialysis and course of antibiotics for sepsis. Currently being treated for failure to thrive and deconditioning, autoimmune disease, bilateral lower extremity wounds and unstable angina. Today's plan: -NPO for EGD per GI -ivf gentle maintenance hydration prior to procedure -increase pain regimen parameters Discharge planning: - Working with SW for LTC placement options - multiple LTC/SNF denials thus far - Pt lives on [facility] with family support. Working with HH for possible HH services coordinated on [facility] periodically. This option is unideal however pt and family are agreeable - Pending below acute medical issues workup & treatment Acute on Chronic anemia,??present on admission, stable.?? Iron profile is compatible with anemia ofchronic disease. - Acutely due to post-cath hematoma - was previously recommend Outpatient colonoscopy - Hgb goal >8.0, 1 unit PRBCs 05/19 R groin hematoma, not present on admission, active & improving Post op complication from cardiac catheterization, likely precipitated by the medical need for dual antiplatelet and anticoagulation therapies. Hematoma stable - Pressure sandbag applied with stabilization of hematoma, apply ice PRN for pain, defer decision toultrasound if needed to cardiology team - Stable, improving, continue holding anticoagulation for now Dysphagia, not present on admission, active Reportedly pt has had dysphagia to solids for 'years,' however it worsened acutely recently with significant nausea and indigestion. Per records pt has had EGD last year 08/18 - Continue PPI & tums - AU PAIR eval; recommended GI evaluation - Gastroenterology Dr Fair consulted; plan for EGD today 05/20 after ~48hrs off apixaban anticoagulation, d/w cardiology. Continuing dual antiplatelet Nausea on chronic GERD, not present on admission, improving Waxing and waning, amenable to zofran, associated with burning epigastric pain - nausea control prn, treatment of GERD - continue PPI, Tums with meals, upright for meals Hyponatremia, present on admission, waxing and waning Fluctuated as fluid status and renal function changed throughout hospital course. Currently likely secondary to decreased PO intake, fluid shifts, iv contrast - monitor for now, encourage po fluids, treat nausea & dysphagia as above Coronary Artery Disease s/p ANDREA to LAD, present on admission, active EKG 05/15 showed diffuse T-wave inversions which were new, Trial of SL nitroglycerin significantly lowered patient's blood pressure. - Pt received Heparin infusion for about 36hrs until cardiac cath - Cardiology consulted; Cardiac Cath 05/17 resulted in ANDREA to LAD - Continue daily ASA, Plavix Soft tissue ulcerated wounds of bilateral lower extremities, POA. Improving. 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 Patient reports she developed these wounds following an allergic reaction to TMP-SMX. She was followed by Rheumatology for this; previously on Xeljanz, Leflunomide and Sulfasalazine for Crohn's and seronegative RA. Followed by Dr Shepherd. Pt reports another [employer] sales consultant switched her to Prednisone daily however I am not able to view these records - S/p bilateral calf wound debridement per GS, Micro positive for light growth pseudomonas and zenaida albicans - Continue wound care, wound consult team following; appreciate their excellent care and recommendations. Examined 05/07, no evidence of subcutaneous infection. See media tab - treatment of presumed autoimmune etiology and diabetes - conservative pain control. OK for 10mg [place] ~30m prior to wound dressing changes - Needs Outpatient Referral to Gen Surg for wound Biopsy - Pt had biopsy in the past at [facility] per report and records. Will reach out to try to obtain the report or pathology findings Inflammatory bowel disease and rheumatoid arthritis on prednisone therapy, present on admission, active - continue oral Prednisone every day - Previously on Xeljanz, Leflunomide and Sulfasalazine. Reportedly discontinued this recently for prednisone and also discontinued outpatient Cipro for recurrent UTis - Discussed with Dr Shepherd Rheumatology 05/07, pt safe to resume & continue Sulfasalazine for Crohn's. Presumably the ulcers are from IBD however not safe to resume xeljanz and leflunomide due to infection - Recommend F/u with outpt rheumatology outpt for mgmt Depression, not present on admission, active Unclear if this is acute on chronic, may be related to adjustment disorder due to prolonged hospitalization and difficulty with placement, separation from family, decreased functional status and need for increased care. Differential includes bipolar depression, major depression - Continue sertraline, levocarnitine (give with food) - Recommend trial outpt N-acetylcysteine 500mg bid adjunct supplement for depression Weakness, Fatigue & Deconditioning, POA, improving - Functional status prior to admission:??Ambulates with a walker, stair chair at home, few stairs onher own. - Continue Physical therapy; recommending rehabilitation - SNF vs , disposition planning. Encourage pt to strengthen. Up in chair for meals, ambulate TID Chronic kidney disease III, present on admission, stable Baseline Cr around 1.2-1.3 during this admission, previous baseline around 1.1 prior. Likely she is at a stable baseline - UA / urine protein creatinine ratio exhibited significant nephropathy likely diabetic - Discontinue EMILY due to renal intolerance, d/w Nephro curbside - BUN/Cr did not improve much with supplemental IVF - Advised pt to drink >2.5L fluids daily Constipation, not present on admission, acute on chronic Likely due to low mobility and depressed PO intake, opiates likely contributory pt has diarrhea from Crohns disease at baseline - Begin daily bowel regimen (conservative), no fiber or laxatives due to crohn's disease Cystitis, acute on chronic, present on admission, resolved and now recurred & resolved Previously patient had evidence of Urogenital sepsis on admission, treated with broad spectrum antibiotics and a urine culture did not grow a pathogen. Pt has history of outpt Ciprofloxacin regimen, not currently taking per history and records. 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 - Glargine reduced on 04/27, discontinued on 04/28 - Sliding scale as needed plus lantus, currently well controlled -F/u outpt for monitoring and/or oral medicines with pcp Decreased oral intake, not POA. Likely related to chronic disease (inflammatory), GERD and decreased appetite from acute illness - Encourage food and fluid, no advance feeding interventions ?? Cardiac Focal wall motion abnormality, present on admission, resolved Echo 04/21 exhibited area of wall motion abnormality, EF 50% (WNL). Seen by cardiology, recommended optimal medical management with outpt f/u - Continue Betablocker, statin, EMILY, apixaban - Repeat Echo 05/15 exhibited subtle WMA & improvement in EF ?? Atrial fibrillation with rapid ventrilcular response ,??present on admission, chronic. RVR has Resolved. [id number] score of at least 4. No Afib notable on most recent Peggy patch outpatient -Continue her ambulatory diltiazem XR 240 mg and Apixaban Hypokalemia with Hypomagnesemia, not present on admission. Resolved. - Replete both electrolytes as needed. Likely secondary to diarrheal losses. Hypothyroidism, poa, chronic. Resumed Levothyroxine po 05/13 Respiratory distress, present on admission. Resolved. Metabolic acidosis with respiratory partial compensation, not present on admission. Resolved. CAMILLE, acute, present on admission. Resolved. Diarrhea, not present on admission, Resolved. Partly due to Crohn's Sepsis, acute, present on admission. Resolved. Body jerking,??present on admission. Resolved. VTE Prophylaxis: Dual antiplatelet, holding anticoagulation for now Code Status: Full code Disposition: Pending workup of cardiac, GI and bleeding issues: Waiting for SNF vs approval for discharge disposition. Current Hospital Medications Allergies Allergies Allergen Reactions ??? Bactrim [Sulfamethoxazole-Trimethoprim] Swelling ??? Betadine [Povidone-Iodine] ??? Fish Derived ??? Iodine ??? Other [place] products ??? Shellfish Containing Products Medications Scheduled aspirin, 81 mg, oral, Daily atorvastatin, 40 mg, oral, Nightly carvediloL, 6.25 mg, oral, BID with meals clopidogreL, 600 mg, oral, Once And clopidogreL, 75 mg, oral, Daily diltiazem CD, 240 mg, oral, Daily insulin glargine, 6 Units, subcutaneous, Nightly insulin lispro, 0-5 Units, subcutaneous, Nightly insulin lispro, 0-6 Units, subcutaneous, TID with meals lactobacillus rhamnosus GG, 1 capsule, oral, Daily levOCARNitine, 500 mg, oral, Daily with dinner levothyroxine, 75 mcg, oral, q AM AC magnesium chloride, 1 tablet, oral, Daily with breakfast magnesium sulfate, 2 g, intravenous, Once miconazole, , Topical, BID pantoprazole, 40 mg, oral, q AM AC predniSONE, 5 mg, oral, Daily senna, 1 tablet, oral, BID sertraline, 25 mg, oral, Nightly sulfaSALAzine, 1,000 mg, oral, BID As needed ??? acetaminophen ??? atropine ??? calcium carbonate ??? dextrose 50% (D50W) ??? diazePAM ??? diphenhydrAMINE ??? flumazeniL ??? HYDROcodone-acetaminophen ??? HYDROmorphone ??? lidocaine ??? Insert peripheral IV AND lidocaine AND Maintain IV access AND Saline lock IV AND sodium chloride ??? Insert peripheral IV AND lidocaine AND Maintain IV access AND Saline lock IV AND sodium chloride ??? Insert peripheral IV AND lidocaine AND Maintain IV access AND Saline lock IV AND sodium chloride ??? Insert peripheral IV AND lidocaine AND Maintain IV access AND Saline lock IV AND sodium chloride ??? metoprolol ??? naloxone ??? naloxone ??? nitroglycerin ??? ondansetron ??? ondansetron ??? ondansetron ODT ??? promethazine ??? [COMPLETED] Prepare/Crossmatch RBC: 1 Units AND [COMPLETED] Transfuse RBC: 1 Units AND [COMPLETED] Nursing communication: Ensure provider has obtained Informed Consent for Blood Transfusion AND Vital Signs AND sodium chloride AND [COMPLETED] Nursing Communication: Transfusion Reaction Management ??? [COMPLETED] Prepare/Crossmatch RBC: 1 Units AND [COMPLETED] Transfuse RBC: 1 Units AND [COMPLETED] Nursing communication: Ensure provider has obtained Informed Consent for Blood Transfusion AND Vital Signs AND sodium chloride AND [COMPLETED] Nursing Communication: Transfusion Reaction Management ??? sodium chloride Infusions Subjective Patient's Update Patient 'feeling ok,' no acute nausea or chest pain. Groin feels better, denied overnight issues. Pt states her leg pain is very bothersome and she has averaged pain 7-8 out of 10. Pt family visited, updates given and questions answered. Pt anxious about EGD Interval Update No overnight events Objective BP (!) 150/80 (BP Location: Right arm, Patient Position: Lying) Pulse 71 Temp 36.6 ??C (97.8 ??F) (Oral) Resp 16 Ht 1.524 m Wt 74 kg SpO2 96% BMI 31.86 kg/m?? Intake/Output Summary (Last 24 hours) at 05/20/2021 0810 Last data filed at 05/20/2021 0500 Gross per 24 hour Intake 400 ml Output 250 ml Net 150 ml Physical Exam Vitals and nursing note reviewed. Constitutional: General: She is not in acute distress. Appearance: She is obese. She is ill-appearing (chronically). HENT: Head: Normocephalic. Comments: Temporal wasting notable Hair loss alopecia notable Eyes: Extraocular Movements: Extraocular movements intact. Cardiovascular: Rate and Rhythm: Normal rate and regular rhythm. Pulses: Normal pulses. Heart sounds: No murmur heard. Pulmonary: Effort: Pulmonary effort is normal. No respiratory distress. Breath sounds: Normal breath sounds. No wheezing, rhonchi or rales. Abdominal: General: Abdomen is flat. There is no distension. Tenderness: There is no guarding. Genitourinary: Comments: R groin cath site with tender ecchymotic area with clean dry intact dressing in place, mild TTP Musculoskeletal: General: Tenderness (to bilateral lower exremities) present. Normal range of motion. Skin: General: Skin is warm and dry. Coloration: Skin is pale. Skin is not jaundiced. Findings: Bruising present. Comments: Thin and fragile skin Neurological: Mental Status: She is alert. Mental status is at baseline. Motor: Weakness present. Psychiatric: Attention and Perception: Attention normal. Mood and Affect: Mood is anxious and depressed. Speech: Speech normal. Comments: Flat affect Labs and ECG Hematology Results from last 7 days Lab Units 05/20/21 0544 05/19/21 2019 05/19/21 0420 05/18/21 0620 05/18/21 0620 WBC AUTO x10e3/uL 7.4 -- 6.7 -- 7.9 HEMOGLOBIN g/dL 9.2* 9.3* 7.7* < > 8.4* HEMATOCRIT % 29.8* 29.6* 25.6* < > 28.4* MCV fL 82 -- 83 -- 85 PLATELETS AUTO x10e3/uL 225 -- 252 -- 287 < > = values in this interval not displayed. Chemistries Results from last 7 days Lab Units 05/20/21 0544 05/19/21 0420 05/18/21 0620 SODIUM mmol/L 135 133* 131* POTASSIUM mmol/L 4.6 4.5 4.7 CHLORIDE mmol/L 102 101 100 CO2 mmol/L 26 25 24 BUN mg/dL 18.0 19.0 17.0 CREATININE mg/dL 1.40* 1.57* 1.57* GLUCOSE mg/dL 118* 147* 308* CALCIUM, SERUM mg/dL 8.4* 8.5 8.6 MAGNESIUM mg/dL 1.6 2.0 1.6 Estimated Creatinine Clearance: 32.1 mL/min (A) (by C-G formula based on SCr of 1.4 mg/dL (H)). Urinalysis Microbiology Urine culture Hafnia Alvei 05/05 and 05/07 Diagnostic Imaging Imaging results: XR CHEST 1 VIEW IMPRESSION: Dobbhoff tube tip is in the region of distal stomach lumen below the right hemidiaphragm. No free air under the diaphragm. Mild pulmonary vascular congestion. No gross pneumothorax. Reviewed by: Jacinto Rodriguez M.D. on 04/23/2021 at 16:54 ECHOCARDIOGRAM COMPLETE Version: 1 Study ID: [id number] ?? [address] [address] Phone: ADULT ECHOCARDIOGRAM ?? Name: SHIRIN AGUILLON Study Date: 04/23/2021, 7: 55 AM : 1945 BP: 147 / 80 mmHg Gender: Female Height: 60 in Age: 75 Years Weight: 187.393 lb Pt. Location: [facility]^2008^2008-10 BSA: 1.82 m? Ordering: JORDAN RAMSEY Referring: Leon Hospitalist Clinician: Carli Vasquez Reason For Study: Dyspnea History: Summary Statements This is a technically difficult study characterized by limited endocardial visualization. Next time recommend Definity echocontrast if possible. Normal sinus rhythm with occasional PAC's. Normal LV size and wall thickness. There is subtle mid-anterior hypokinesis, but normal wall motion otherwise. EF is 50-55%. Stage II diastolic dysfunction. Normal chamber sizes. Aortic sclerosis without stenosis. Otherwise no valvular abnormalities. Compared to prior study 09/2019, focal wall motion abnormality involving mid-anterior segment is newly described Electronically signed by: Lucinda Bahena M.D. 04/23/2021, 3: 19 PM Results for orders placed during the hospital encounter of 04/15/21 ECHOCARDIOGRAM LIMITED Narrative [facility] + + Hospital +---------+ : : [address] : : : : [address]. : : : : [place], : : : : [place] [address] : : : : Phone: [phone] Echocardiogram Report + + :Name: SHIRIN AGUILLON Study Date: 05/16/2021 Height: 60 in : :[facility] ReadingLocation: Weight: 168 lb : : Gender: Female BSA: 1.7 m2 : :: 1945 Age: 75 yrs BP: 135/83 mmHg: :Reason For Study: Assess LV wall motion and EF : :Ordering Physician: MARY, : :NIKKO Performed By: Veronica Raphael : :Referring: RED TEAM : + + Interpretation Summary Limited Echo: 1) Normal left ventricular size and systolic f unction (EF 55-60%). 2) Subtle mid anterior and mid anterolateral wall hypokinesis present. Septal bounce present. 3) Compared to the Echo done 04/23/2021, no significant change when compared visually. Procedure: A two-dimensional transthoracic echocardiogram with color flow and Doppler was performed in limited views only to assess Assess LV wall motion, EF. The study quality was technically adequate. Comparison is made with the echocardiogram of 04/23/2021. The patient was in normal sinus rhythm during the exam. Left Ventricle: The left ventricle is normal in size and wall thickness. A false chord is noted (normal variant). The ejection fraction is estimated to be 55-60%. Subtle mid anterior and mid anterolateral wall hypokinesis present. Septal bounce present. Tricuspid Valve: The tricuspid valve is normal in structure and function. There is a trace or physiologic amount of tricuspid regurgitation. Pulmonary artery pressures cannot be estimated because of the lack of a measurable TR jet velocity but the IVC suggests a CVP of around 3 mmHg. Great Vessels: The IVC is of normal diameter and collapses greater than 50% with a sniff. This suggests a low right atrial pressure of 3 mm Hg. Pericardium/ Pleura There is no pericardial effusion. There is an anterior echo-free space consistent with a fat pad. MMode/2D Measurements & Calculations LVIDd: 4.1 cm IVC diam: 1.6 cm LVIDs: 2.6 cm IVSd: 0.77 cm LVPWd: 0.51 cm LV bai. diameter/BSA (cm/m^2): 2.4 LV sys. diameter/BSA (cm/m^2): 1.5 FS: 35.7 % Reading Physician:10:39 AM Results for orders placed during the hospital encounter of 04/15/21 SI STENT ANDREA - CORONARY Narrative PROCEDURE PERFORMED: 1. Percutaneous intervention on the left anterior descending. 2. Supervision for moderate sedation. PROCEDURAL DETAILS: Please refer to the procedure log for complete details. Briefly, Dr. Tan did the diagnostic angiogram. I was asked to do an intervention. The patient was given moderate sedation with IV versed and fentanyl by a dedicated nurse under my [id number] supervision using physiological monitoring for the duration of the procedure. INTERVENTIONAL DETAILS: Using a Voda 3.0 guide and a Runthrough wire, we were able to balloon dilate this proximal LAD lesion which was around 80-90%. It was then stented with a 3.5 x 15 mm Xience drug coated stent delivered at 14 atmospheres with excellent angiographic results. Dual antiplatelet therapy per guidelines. Total contrast used 15 cc. Electronically signed by: Ricardo Griffin DO 05/20/2021 at 8:10 AM Portions of today's documentation have been created with the assistance of voice recognition software. Therefore, it may contain anomalous punctuation, anomalous independent misrecognitions, word substitutions, insertions or omissions. Occasional wrong-word or phonetically similar substitutions may also occur, all due to the inherent limitations of voice recognition software. Attempts to correct the above have been made by Ricardo Griffin DO but it is recommended that the chart be read carefully to recognize, using context, where the substitutions may have occurred. Associated attestation - Denise Miller DO - 05/20/2021 8:08 PM PDT I saw and evaluated the patient, participating in the villarreal portions of the service. I reviewed the resident???s note. I agree with the resident???s findings and plan.Nikko Tan MD - 05/19/2021 5:00 PM PDT CARDIOLOGY follow Up Note Patient Name: Shirin Aguillon Date of : 1945 Date of Admission: 04/15/2021 Date of Service: 05/19/2021 INTERVAL HISTORY: Patient got up from bed yesterday and had bleeding in her groin. Pulse intact. She does have right groin tenderness Denies any chest pain at this time. She continues to feel tired. Patient Active Problem List Diagnosis ??? Seronegative rheumatoid arthritis of multiple sites (CMS/HCC) ??? Osteoarthropathy ??? Type II diabetes mellitus with complication (CMS/HCC) ??? Renal insufficiency ??? Grief ??? Psoriatic arthritis (CMS/HCC) ??? Abdominal pain ??? Functional diarrhea ??? Nausea and vomiting ??? Excessive body weight loss ??? Pressure injury of skin of right calf ??? Unstable angina (CMS/HCC) ??? Dysphagia Current Medications: Scheduled Meds:aspirin, 81 mg, oral, Daily atorvastatin, 40 mg, oral, Nightly carvediloL, 6.25 mg, oral, BID with meals clopidogreL, 600 mg, oral, Once And clopidogreL, 75 mg, oral, Daily diltiazem CD, 240 mg, oral, Daily insulin glargine, 6 Units, subcutaneous, Nightly insulin lispro, 0-5 Units, subcutaneous, Nightly insulin lispro, 0-6 Units, subcutaneous, TID with meals lactobacillus rhamnosus GG, 1 capsule, oral, Daily levOCARNitine, 500 mg, oral, Daily with dinner levothyroxine, 75 mcg, oral, q AM AC magnesium chloride, 1 tablet, oral, Daily with breakfast miconazole, , Topical, BID pantoprazole, 40 mg, oral, q AM AC predniSONE, 5 mg, oral, Daily senna, 1 tablet, oral, BID sertraline, 25 mg, oral, Nightly sulfaSALAzine, 1,000 mg, oral, BID Continuous Infusions: PRN Meds:??? acetaminophen ??? atropine ??? calcium carbonate ??? dextrose 50% (D50W) ??? diazePAM ??? diphenhydrAMINE ??? flumazeniL ??? HYDROcodone-acetaminophen ??? HYDROmorphone ??? lidocaine ??? Insert peripheral IV AND lidocaine AND Maintain IV access AND Saline lock IV AND sodium chloride ??? Insert peripheral IV AND lidocaine AND Maintain IV access AND Saline lock IV AND sodium chloride ??? Insert peripheral IV AND lidocaine AND Maintain IV access AND Saline lock IV AND sodium chloride ??? Insert peripheral IV AND lidocaine AND Maintain IV access AND Saline lock IV AND sodium chloride ??? metoprolol ??? naloxone ??? naloxone ??? nitroglycerin ??? ondansetron ??? ondansetron ??? ondansetron ODT ??? promethazine ??? [COMPLETED] Prepare/Crossmatch RBC: 1 Units AND [COMPLETED] Transfuse RBC: 1 Units AND [COMPLETED] Nursing communication: Ensure provider has obtained Informed Consent for Blood Transfusion AND Vital Signs AND sodium chloride AND [COMPLETED] Nursing Communication: Transfusion Reaction Management ??? [COMPLETED] Prepare/Crossmatch RBC: 1 Units AND [COMPLETED] Transfuse RBC: 1 Units AND [COMPLETED] Nursing communication: Ensure provider has obtained Informed Consent for Blood Transfusion AND Vital Signs AND sodium chloride AND [COMPLETED] Nursing Communication: Transfusion Reaction Management ??? sodium chloride Review of Systems: All other systems are reviewed and negative to the best of the patient's ability. PHYSICAL EXAMINATION: Vital Signs (as of 0600): Temp: [36.5 ??C (97.7 ??F)-37 ??C (98.6 ??F)] 36.9 ??C (98.4 ??F) Heart Rate: [74-131] 74 Resp: [16-19] 16 BP: (101-137)/(67-91) 120/76 Oxygen: SpO2: 94 % on liters via I/O this shift: In: 400 [Blood:400] Out: - I/O???s (24 hours): Intake/Output Summary (Last 24 hours) at 05/19/2021 1700 Last data filed at 05/19/2021 1215 Gross per 24 hour Intake 400 ml Output 200 ml Net 200 ml Admission Weight: Weight: 72.6 kg Current weight: Weight: 74 kg Physical Exam: General appearance: No apparent distress, well-nourished, pleasant, cooperative HEET: Normocephalic atraumatic, no scleral icterus, tongue midline, mucous membranes moist Neck: supple Cardiovascular: RRR, normal S1 and normal S2, no murmurs/ rubs/gallops, PMI nondisplaced, no JVD, noperipheral edema Respiratory: Good aeration, CTAB Abdomen: Soft, nontender, nondistended, + bowel sounds Neuro: Alert, no facial droop, tongue midline, no gross motor deficits Psych: appropriate affect Skin: no rashes on face, neck, and lower extremities STUDIES: Echo 2020 1) Normal left ventricular size and systolic f unction (EF 55-60%). Subtle mid anterior and mid anterolateral wall hypokinesis present. Septal bounce present. 3) Compared to the Echo done 04/23/2021, no significant change when compared visually. ?? Results from last 7 days Lab Units 05/19/21 0420 05/18/21 0620 05/17/21 0539 05/17/21 0538 05/16/21 1119 05/16/21 1119 05/16/21 0222 05/15/21 1723 05/15/21 1632 05/15/21 1229 05/15/21 0856 0000 WBC AUTO x10e3/uL 6.7 7.9 6.4 -- -- -- < > < > -- -- 6.5 -- HEMOGLOBIN g/dL 7.7* 8.4* 9.8* -- -- -- < > < > -- -- 9.9* -- HEMATOCRIT % 25.6* 28.4* 33.9* -- -- -- < > < > -- -- 32.9* -- PLATELETS AUTO x10e3/uL 252 287 252 -- -- -- < > < > -- -- 246 -- SODIUM mmol/L 133* 131* -- 135 < > 130* -- -- -- -- 135 < > POTASSIUM mmol/L 4.5 4.7 -- 4.5 < > 4.6 -- -- -- -- 4.1 < > CHLORIDE mmol/L 101 100 -- 101 < > 97 -- -- -- -- 100 < > CO2 mmol/L 25 24 -- 27 < > 22 -- -- -- -- 26 < > BUN mg/dL 19.0 17.0 -- 12.0 < > 13.0 -- -- -- -- 13.0 < > CREATININE mg/dL 1.57* 1.57* -- 1.58* < > 1.46* -- -- -- -- 1.46* < > GLUCOSE mg/dL 147* 308* -- 168* < > 147* -- -- -- -- 121* < > MAGNESIUM mg/dL 2.0 1.6 -- -- -- -- -- -- -- -- 2.0 -- INR 1.1 -- -- -- -- -- -- -- -- -- -- -- TROPONINT ug/L -- -- -- -- -- 0.077* -- -- 0.077* 0.077* -- -- CKTOTAL U/L -- -- -- -- -- 21 -- -- -- 18* -- -- CKMB ng/mL -- -- -- -- -- 1.7 -- -- -- 1.8 -- -- < > = values in this interval not displayed. Cath 05/17/2021: ANDREA to proximal LAD Limited Echo 05/16/2021: 1) Normal left ventricular size and systolic f unction (EF 55-60%). 2) Subtle mid anterior and mid anterolateral wall hypokinesis present. Septal bounce present. 3) Compared to the Echo done 04/23/2021, no significant change when compared visually. Tele: no events IMPRESSION AND RECOMMENDATIONS: 75 y.o. year old female who is now on Hospital Day: 35 after being admitted for altered mental status, sepsis and renal Failure. She has a history of HLD, HTN, PAF. # NSTEMI s/p ANDREA to proximal LAD 05/17/2021. No recurrent angina. Right groin site bled 05/18/2021 butit looks good today with intact pulses. Plan: - Continue aspirin 81 mg daily - Continue clopidogrel 75mg daily - Continue atorvastatin 40 mg nightly - Continue diltiazem CD 240 Daily - Ok to give PRBC transfusion # NSVT: noted on telemetry 05/16/2021. No symptoms. No recurence. - Diltiazem as above - Continue to monitor Thank you for the interesting consultation. Cardiology will sign off at this time. Patient should see cardiology in 2-4 weeks of getting discharged. Code Status:Full Code 05/19/2021 5:00 PM Mohsen Patel MD - 05/19/2021 3:38 PM PDT GI Daily Progress Note Subjective No acute events overnight. Patient at bedside eating fruit without difficulty. Patient Active Problem List Diagnosis ??? Seronegative rheumatoid arthritis of multiple sites (CMS/HCC) ??? Osteoarthropathy ??? Type II diabetes mellitus with complication (CMS/HCC) ??? Renal insufficiency ??? Grief ??? Psoriatic arthritis (CMS/HCC) ??? Abdominal pain ??? Functional diarrhea ??? Nausea and vomiting ??? Excessive body weight loss ??? Pressure injury of skin of right calf ??? Unstable angina (CMS/HCC) ??? Dysphagia Past Medical History: Diagnosis Date ??? Abdominal pain ??? Arthritis ??? Arthritis, rheumatoid (CMS/HCC) ??? Chronic diarrhea ??? Delayed emergence from general anesthesia ??? Diabetes (CMS/HCC) ??? Disorder Nearly severed pinky finger ??? Gallbladder disease ??? H/O recurrent pneumonia ??? Hyperlipidemia ??? Hypertension ??? Kidney disease Kidney dysfunction ??? Low back pain ongoing ??? Migraine headache ??? Neuropathy ??? PONV (postoperative nausea and vomiting) ??? Skin cancer ??? Thyroid disease ??? Tubular adenoma Ileocecal valve tubular adenoma ??? UTI (urinary tract infection) ??? Weight loss, non-intentional Past Surgical History: Procedure Laterality Date ??? ABDOMINAL SURGERY ??? APPENDECTOMY 2016 along with colectomy ??? BACK SURGERY Major back surgery ??? CARPAL TUNNEL RELEASE ??? CHOLECYSTECTOMY ??? COLONOSCOPY 2 x ??? LAPAROSCOPIC ASSISSTED TOTAL COLECTOMY W/ J-POUCH Right 04/12/2017 ??? DC COLONOSCOPY W/BIOPSY SINGLE/MULTIPLE N/A 07/31/2020 Procedure: COLONOSCOPY; Surgeon: Mike Laguna MD; Location: [facility] GI; Service: Gastroenterology ??? DC DEBRIDEMENT, SKIN, SUB-Q TISSUE,=<20 SQ CM Bilateral 04/18/2021 Procedure: debridement of bilateral calf wound; Surgeon: Patria Cruz MD; Location: [facility] OR; Service: ENT ??? DC EDG TRANSORAL BIOPSY SINGLE/MULTIPLE N/A 07/31/2020 Procedure: EGD; Surgeon: Mike Laguna MD; Location: [facility] GI; Service: Gastroenterology ??? SHOULDER SURGERY 2008 Shoulder repair ??? SPINAL FUSION Fusion, et al 4 procedures in one 2011 ??? TUBAL LIGATION 1976 Family History Problem Relation Age of Onset ??? Dementia Mother ??? Other Father Respiratory problems ??? Heart disease Sister ??? Breast cancer Sister ??? Cancer Son Social History Socioeconomic History ??? Marital status: Spouse name: Not on file ??? Number of children: Not on file ??? Years of education: Not on file ??? Highest education level: Not on file Occupational History ??? Not on file Tobacco Use ??? Smoking status: Never Smoker ??? Smokeless tobacco: Never Used Substance and Sexual Activity ??? Alcohol use: No Alcohol/week: 0.0 standard drinks ??? Drug use: No ??? Sexual activity: Not Currently Partners: Male control/protection: Surgical Comment: many surgeries over the years....not listed Other Topics Concern ??? Not on file Social History Narrative ??? Not on file Social Determinants of Health Financial Resource Strain: ??? Difficulty of Paying Living Expenses: Food Insecurity: ??? Worried About Running Out of Food in the Last Year: ??? Ran Out of Food in the Last Year: Transportation Needs: ??? Lack of Transportation (Medical): ??? Lack of Transportation (Non-Medical): Physical Activity: ??? Days of Exercise per Week: ??? Minutes of Exercise per Session: Stress: ??? Feeling of Stress : Social Connections: ??? Frequency of Communication with Friends and Family: ??? Frequency of Social Gatherings with Friends and Family: ??? Attends [employer] Services: ??? Active Member of Clubs or Organizations: ??? Attends Club or Organization Meetings: ??? Marital Status: Intimate Partner Violence: ??? Fear of Current or Ex-Partner: ??? Emotionally Abused: ??? Physically Abused: ??? Sexually Abused: Current Facility-Administered Medications: ??? acetaminophen (TYLENOL) suppository 120 mg, 120 mg, rectal, q4h PRN, Redd Trejo MD, 120 mg at 04/21/21 2300 ??? aspirin chewable tablet 81 mg, 81 mg, oral, Daily, Trent Batista MD, 81 mg at 05/19/21 0911 ??? atorvastatin (LIPITOR) tablet 40 mg, 40 mg, oral, Nightly, Ricardo Griffin DO, 40 mg at 05/18/210 ??? atropine injection (abboject) 0.5-1 mg, 0.5-1 mg, intravenous, q5 min PRN, Trent Batista MD ??? calcium carbonate (TUMS) chewable tablet 500 mg, 500 mg, oral, TID PRN, Iron Lowry DO, 500 mg at 05/18/21 0007 ??? carvediloL (COREG) tablet 6.25 mg, 6.25 mg, oral, BID with meals, Ricardo Griffin DO, 6.25 mg at 05/19/21 0915 ??? clopidogreL (PLAVIX) tablet 600 mg, 600 mg, oral, Once AND clopidogreL (PLAVIX) tablet 75 mg, 75 mg, oral, Daily, Trent Batista MD, 75 mg at 05/19/21 0911 ??? dextrose 50 % in water (D50W) g injection 12.5-50 g, 12.5-50 g, intravenous, PRN, Xavier Chen MD ??? diazePAM (VALIUM) tablet 2 mg, 2 mg, oral, q12h PRN, Ricardo Griffin DO, 2 mg at 05/19/21 1450 ??? diltiazem CD (CARDIZEM CD) 24 hr capsule 240 mg, 240 mg, oral, Daily, Xavier Johnson MD,240 mg at 05/19/21 0916 ??? diphenhydrAMINE (BENADRYL) capsule 50 mg, 50 mg, oral, q6h PRN, Ricardo Griffin DO, 50 mg at 05/16/212024 ??? flumazeniL (ROMAZICON) injection 0.2 mg, 0.2 mg, intravenous, PRN, Trent Batista MD ??? HYDROcodone-acetaminophen (NORCO) 5-325 mg 1 tablet, 1 tablet, oral, q4h PRN, Ricardo Griffin DO, 1 tablet at 05/19/21 1458 ??? HYDROmorphone (DILAUDID) injection 0.2 mg, 0.2 mg, intravenous, q2h PRN, Iron Lowry DO, 0.2mg at 05/18/21 1720 ??? insulin glargine (LANTUS) injection 6 Units, 6 Units, subcutaneous, Nightly, Ricardo Griffin DO, 6Units at 05/18/21 2139 ??? insulin lispro injection 0-5 Units, 0-5 Units, subcutaneous, Nightly, Xavier Johnson MD,2 Units at 05/17/21 2105 ??? insulin lispro injection 0-6 Units, 0-6 Units, subcutaneous, TID with meals, Xavier Johnson MD, 3 Units at 05/19/21 1147 ??? lactobacillus rhamnosus GG (CULTURELLE) 10 billion cell 1 capsule, 1 capsule, oral, Daily, Ricardo Griffin DO, 1 capsule at 05/19/21 0915 ??? levOCARNitine (L-CARNITINE) tablet 500 mg, 500 mg, oral, Daily with dinner, Ricardo Griffin DO, 500 mg at 05/18/21 1722 ??? levothyroxine (SYNTHROID) tablet 75 mcg, 75 mcg, oral, q AM AC, Ricardo Griffin DO, 75 mcg at 05/19/21 0556 ??? lidocaine (for HOWARD) jelly 1 application, 1 application, Topical, PRN, Ricardo Griffin DO ??? Insert peripheral IV, , , Once AND lidocaine (XYLOCAINE) 10 mg/mL (1 %) injection 1 mL, 1 mL, infiltration, Once PRN AND Maintain IV access, , , Until discontinued AND Saline lock IV, , , Once AND sodium chloride 0.9 % flush 10 mL, 10 mL, intravenous, PRN, Patria Cruz MD ??? Insert peripheral IV, , , Once AND lidocaine (XYLOCAINE) 10 mg/mL (1 %) injection 1 mL, 1 mL, infiltration, Once PRN AND Maintain IV access, , , Until discontinued AND Saline lock IV, , , Once AND sodium chloride 0.9 % flush 10 mL, 10 mL, intravenous, PRN, Patria Cruz MD ??? Insert peripheral IV, , , Once AND lidocaine (XYLOCAINE) 10 mg/mL (1 %) injection 1 mL, 1 mL, infiltration, Once PRN AND Maintain IV access, , , Until discontinued AND Saline lock IV, , , Once AND sodium chloride 0.9 % flush 10 mL, 10 mL, intravenous, PRN, Patria Cruz MD ??? Insert peripheral IV, , , Once AND lidocaine (XYLOCAINE) 10 mg/mL (1 %) injection 1 mL, 1 mL, infiltration, Once PRN AND Maintain IV access, , , Until discontinued AND Saline lock IV, , , Once AND sodium chloride 0.9 % flush 10 mL, 10 mL, intravenous, PRN, Nikko Tan MD ??? magnesium chloride (SLOW-MAG) tablet 71.5 mg, 1 tablet, oral, Daily with breakfast, Ricardo Griffin, DO, 71.5 mg at 05/19/21 0916 ??? metoprolol (LOPRESSOR) injection 5 mg, 5 mg, intravenous, q5 min PRN, Celestine Jameson DO ??? miconazole (MICOTIN) 2 % powder, , Topical, BID, Patria Cruz MD, 1 application at 05/19/21 0918 ??? naloxone (NARCAN) injection 0.04 mg, 0.04 mg, intravenous, PRN, Patria Cruz MD ??? naloxone (NARCAN) injection 0.4 mg, 0.4 mg, intravenous, PRN, Trent Batista MD ??? nitroglycerin (NITROSTAT) SL tablet 0.4 mg, 0.4 mg, sublingual, q5 min PRN, Iron Lowry, DO, 0.4 mg at 05/15/21 1340 ??? ondansetron (ZOFRAN) 4 mg/5 mL solution 4 mg, 4 mg, oral, q8h PRN, Ricardo Griffin DO ??? ondansetron (ZOFRAN) injection 4 mg, 4 mg, intravenous, q8h PRN, Ricardo Griffin DO, 4 mg at 05/19/21 0547 ??? ondansetron ODT (ZOFRAN-ODT) disintegrating tablet 4 mg, 4 mg, oral, q8h PRN, Ricardo Griffin DO, 4 mg at 05/18/21 1230 ??? pantoprazole (PROTONIX) EC tablet 40 mg, 40 mg, oral, q AM AC, Xavier Johnson MD, 40 mg at 05/19/21 0556 ??? predniSONE (DELTASONE) tablet 5 mg, 5 mg, oral, Daily, Xavier Johnson MD, 5 mg at 05/19/21 0911 ??? promethazine (PHENERGAN) 6.25 mg in sodium chloride (NS) 0.9 % 50 mL (0.125 mg/mL) IVPB, 6.25 mg, intravenous, q6h PRN, Ricardo Griffin DO, Stopped at 05/14/212009 ??? senna (SENOKOT) tablet 8.6 mg, 1 tablet, oral, BID, Ricardo Griffin DO, 8.6 mg at 05/19/21 0915 ??? sertraline (ZOLOFT) tablet 25 mg, 25 mg, oral, Nightly, Ricardo Griffin DO, 25 mg at 05/18/21 2139 ??? [COMPLETED] Prepare/Crossmatch RBC: 1 Units, , , Once AND [COMPLETED] Transfuse RBC: 1 Units, , intravenous, Transfusion AND [COMPLETED] Nursing communication: Ensure provider has obtainedInformed Consent for Blood Transfusion, , , Once AND Vital Signs, , , PRN AND sodium chloride (NS) 0.9 % infusion 250 mL, 250 mL, intravenous, PRN AND [COMPLETED] Nursing Communication: Transfusion Reaction Management, , , Once, Ana Maria Narvaez MD ??? [COMPLETED] Prepare/Crossmatch RBC: 1 Units, , , Once AND [COMPLETED] Transfuse RBC: 1 Units, , intravenous, Transfusion AND [COMPLETED] Nursing communication: Ensure provider has obtainedInformed Consent for Blood Transfusion, , , Once AND Vital Signs, , , PRN AND sodium chloride (NS) 0.9 % infusion 250 mL, 250 mL, intravenous, PRN AND [COMPLETED] Nursing Communication: Transfusion Reaction Management, , , Once, Ricardo Griffin DO ??? sodium chloride 0.9 % flush 20 mL, 20 mL, intravenous, PRN, Patria rCuz MD ??? sulfaSALAzine (AZULFIDINE) tablet 1,000 mg, 1,000 mg, oral, BID, Ricardo Griffin, DO, 1,000 mg at 05/19/21 0913 Allergies Allergen Reactions ??? Bactrim [Sulfamethoxazole-Trimethoprim] Swelling ??? Betadine [Povidone-Iodine] ??? Fish Derived ??? Iodine ??? Other [place] products ??? Shellfish Containing Products Review of Systems The following portions of the patient's history were reviewed and updated as appropriate: allergies,current medications, past family history, past medical history, past social history, past surgical history and problem list. Review of Systems A comprehensive review of systems was negative.. Objective BP 136/73 Pulse 74 Temp 36.6 ??C (97.9 ??F) Resp 16 Ht 1.524 m Wt 74 kg SpO2 96% BMI 31.86 kg/m?? @[email or web address]@ Body mass index is 31.86 kg/m??. Physical Exam BP 136/73 Pulse 74 Temp 36.6 ??C (97.9 ??F) Resp 16 Ht 1.524 m Wt 74 kg SpO2 96% BMI 31.86 kg/m?? General Appearance: Alert, cooperative, no distress, appears stated age Head: Normocephalic, without obvious abnormality, atraumatic Eyes: PERRL, conjunctiva/corneas clear, EOM's intact, fundi benign, both eyes Ears: Normal TM's and external ear canals, both ears Nose: Nares normal, septum midline,mucosa normal, no drainage or sinus tenderness Throat: Lips, mucosa, and tongue normal; teeth and gums normal Neck: Supple, symmetrical, trachea midline, no adenopathy; thyroid: not enlarged, symmetric, no tenderness/mass/nodules; no carotid bruit or JVD Back: Symmetric, no curvature, ROM normal, no CVA tenderness Lungs: Clear to auscultation bilaterally, respirations unlabored Breasts: No masses or tenderness Heart: Regular rate and rhythm, S1 and S2 normal, no murmur, rub, or gallop Abdomen: Soft, non-tender, bowel sounds active all four quadrants, no masses, no organomegaly Pelvic: Deferred Extremities: Extremities normal, atraumatic, no cyanosis or edema Pulses: 2+ and symmetric Skin: Skin color, texture, turgor normal, no rashes or lesions Lymph nodes: Cervical, supraclavicular, and axillary nodes normal Neurologic: Normal Lab Review @RESULTRCNT@ No components found for: CBC] No components found for: CMP] No results displayed because visit has over 200 results. Lab on 09/10/2020 Component Date Value Ref Range Status ??? Sodium 09/10/2020 138 134 - 144 mmol/L Final ??? Potassium 09/10/2020 4.0 3.5 - 5.2 mmol/L Final ??? Chloride 09/10/2020 99 97 - 108 mmol/L Final ??? CO2 09/10/2020 29 18 - 29 mmol/L Final ??? Anion Gap 09/10/2020 10 3 - 11 mmol/L Final ??? BUN 09/10/2020 32.0* 8.0 - 27.0 mg/dL Final ??? Creatinine 09/10/2020 0.95 0.57 - 1.00 mg/dL Final ??? Glucose, Serum 09/10/2020 182* 65 - 99 mg/dL Final ??? Calcium 09/10/2020 8.7 8.5 - 10.1 mg/dL Final ??? AST 09/10/2020 18 0 - 50 U/L Final ??? ALT 09/10/2020 32 0 - 32 U/L Final ??? Alkaline Phosphatase 09/10/2020 117 25 - 165 U/L Final ??? Total Protein 09/10/2020 5.5* 6.4 - 8.4 g/dL Final ??? eGFR (CKD-EPI) 09/10/2020 60* >60 (CKD-EPI) mL/min/1.73 m2 Final ??? Albumin 09/10/2020 3.2* 3.4 - 5.0 g/dL Final ??? Bilirubin, Total 09/10/2020 0.4 <=1.2 mg/dL Final ??? BUN/Creatinine Ratio 09/10/2020 33.7* 7.0 - 24.0 Final ??? CRP (mg/dL) 09/10/2020 3.8* <=0.5 mg/dL Final ??? Sed Rate 09/10/2020 10 <=40 mm/hr Final ??? Brock 09/10/2020 35 0 - 50 units Final Negative <45 Equivocal 45 - 50 Positive >50 ??? ACCA 09/10/2020 7 0 - 90 units Final Negative <80 Equivocal 80 - 90 Positive >90 ??? ALCA 09/10/2020 7 0 - 60 units Final Negative <55 Equivocal 55 - 60 Positive >60 ??? Mannobioside Ab.IgG 09/10/2020 4 0 - 100 units Final Negative < 90 Equivocal 90 - 100 Positive >100 This test was developed and its performance characteristics determined by [facility]. It has not been cleared or approved by the Food and Drug Administration. The FDA has determined that such clearance or approval is not necessary. ??? Atypical P-ANCA 09/10/2020 Negative Negative Final ??? Comments 09/10/2020 Comment Final Pattern is not suggestive of Inflammatory Bowel Disease ??? Deaminated Gliadin Ab, IgA 09/10/2020 2 0 - 19 units Final Negative 0 - 19 Weak Positive 20 - 30 Moderate to Strong Positive >30 ??? Deaminated Gliadin Ab, IgG 09/10/2020 <1 0 - 19 units Final Negative 0 - 19 Weak Positive 20 - 30 Moderate to Strong Positive >30 ??? Tissue Transglutaminase Ab, IgA 09/10/2020 <2 0 - 3 U/mL Final Negative 0 - 3 Weak Positive 4 - 10 Positive >10 Tissue Transglutaminase (tTG) has been identified as the endomysial antigen. Studies have demonstr- ated that endomysial IgA antibodies have over 99% specificity for gluten sensitive enteropathy. ??? Endomysial Antibody, IgA 09/10/2020 Negative Negative Final ??? WBC Auto 09/10/2020 11.0* 3.8 - 10.1 x10e3/uL Final ??? RBC 09/10/2020 4.57 3.90 - 5.20 x10e6/uL Final ??? Hemoglobin 09/10/2020 13.6 12.0 - 15.6 g/dL Final ??? Hematocrit 09/10/2020 43.4 35.0 - 46.0 % Final ??? MCV 09/10/2020 95 81 - 100 fL Final ??? MCH 09/10/2020 29.8 27.0 - 35.0 pg Final ??? MCHC 09/10/2020 31.3* 32.0 - 37.0 g/dL Final ??? RDW 09/10/2020 17.7* 12.3 - 15.4 % Final ??? Platelets 09/10/2020 114* 150 - 400 x10e3/uL Final ??? MPV 09/10/2020 12.6* 7.4 - 10.4 fL Final ??? NRBC % 09/10/2020 0 0 /100 WBCs Final ??? Abs. NRBC 09/10/2020 0.0 x10e3/uL Final ??? % Neutrophils 09/10/2020 90 % Final ??? % Lymphocytes 09/10/2020 4 % Final ??? % Monocytes 09/10/2020 5 % Final ??? % Eosinophils 09/10/2020 0 % Final ??? % Basophils 09/10/2020 0 % Final ??? Abs. Neutrophils 09/10/2020 9.9* 1.6 - 6.9 x10e3/uL Final ??? Abs. Lymphocytes 09/10/2020 0.4* 1.1 - 4.8 x10e3/uL Final ??? Abs. Monocytes 09/10/2020 0.5 0.0 - 1.0 x10e3/uL Final ??? Abs. Eosinophils 09/10/2020 0.0 0.0 - 0.5 x10e3/uL Final ??? Abs. Basophils 09/10/2020 0.0 0.0 - 0.4 x10e3/uL Final ??? Abs. Neutrophils (Auto) 09/10/2020 9,900.0* 1,600.0-6,900.0 /uL Final Appointment on 08/03/2020 Component Date Value Ref Range Status ??? Sodium 08/03/2020 134 134 - 144 mmol/L Final ??? Potassium 08/03/2020 4.2 3.5 - 5.2 mmol/L Final ??? Chloride 08/03/2020 97 97 - 108 mmol/L Final ??? CO2 08/03/2020 22 18 - 29 mmol/L Final ??? Anion Gap 08/03/2020 15* 3 - 11 mmol/L Final ??? BUN 08/03/2020 33.0* 8.0 - 27.0 mg/dL Final ??? Creatinine 08/03/2020 1.23* 0.57 - 1.00 mg/dL Final ??? Glucose, Serum 08/03/2020 245* 65 - 99 mg/dL Final ??? Calcium 08/03/2020 9.5 8.5 - 10.1 mg/dL Final ??? AST 08/03/2020 20 0 - 50 U/L Final ??? ALT 08/03/2020 19 0 - 32 U/L Final ??? Alkaline Phosphatase 08/03/2020 98 25 - 165 U/L Final ??? Total Protein 08/03/2020 6.0* 6.4 - 8.4 g/dL Final ??? eGFR (CKD-EPI) 08/03/2020 44* >60 (CKD-EPI) mL/min/1.73 m2 Final ??? Albumin 08/03/2020 3.5 3.4 - 5.0 g/dL Final ??? Bilirubin, Total 08/03/2020 0.3 <=1.2 mg/dL Final ??? BUN/Creatinine Ratio 08/03/2020 26.8* 7.0 - 24.0 Final ??? WBC Auto 08/03/2020 12.7* 3.8 - 10.1 x10e3/uL Final ??? RBC 08/03/2020 4.50 3.90 - 5.20 x10e6/uL Final ??? Hemoglobin 08/03/2020 13.6 12.0 - 15.6 g/dL Final ??? Hematocrit 08/03/2020 41.5 35.0 - 46.0 % Final ??? MCV 08/03/2020 92 81 - 100 fL Final ??? MCH 08/03/2020 30.2 27.0 - 35.0 pg Final ??? MCHC 08/03/2020 32.8 32.0 - 37.0 g/dL Final ??? RDW 08/03/2020 14.7 12.3 - 15.4 % Final ??? Platelets 08/03/2020 468* 150 - 400 x10e3/uL Final ??? MPV 08/03/2020 11.5* 7.4 - 10.4 fL Final ??? NRBC % 08/03/2020 0 0 /100 WBCs Final ??? Abs. NRBC 08/03/2020 0.0 x10e3/uL Final ??? % Neutrophils 08/03/2020 88 % Final ??? % Lymphocytes 08/03/2020 5 % Final ??? % Monocytes 08/03/2020 7 % Final ??? % Eosinophils 08/03/2020 0 % Final ??? % Basophils 08/03/2020 0 % Final ??? Abs. Neutrophils 08/03/2020 11.2* 1.6 - 6.9 x10e3/uL Final ??? Abs. Lymphocytes 08/03/2020 0.6* 1.1 - 4.8 x10e3/uL Final ??? Abs. Monocytes 08/03/2020 0.8 0.0 - 1.0 x10e3/uL Final ??? Abs. Eosinophils 08/03/2020 0.0 0.0 - 0.5 x10e3/uL Final ??? Abs. Basophils 08/03/2020 0.0 0.0 - 0.4 x10e3/uL Final ??? Abs. Neutrophils (Auto) 08/03/2020 11,200.0* 1,600.0-6,900.0 /uL Final Admission on 07/31/2020, Discharged on 07/31/2020 Component Date Value Ref Range Status ??? POCT Glucose, Blood 07/31/2020 197* 65 - 99 mg/dL Final ??? POCT Glucose Test Comment 07/31/2020 Note: Reference Ranges revised September 24, 2019. Final ??? Pathology Final Diagnosis 07/31/2020 SEE DETAILS Final Comment: Patient: SHIRIN AGUILLON Case: [id number] Result ID: [id number] Ordering Provider: MIKE LAGUNA M.D. Collected Date: 07/31/20 Clinical History: Abdominal pain, functional diarrhea, nausea and vomiting, excessive body weight loss. FINAL DIAGNOSIS 1. DUODENUM, BIOPSY: A. Duodenal mucosa with no diagnostic alterations. B. Negative for celiac sprue. C. Negative for dysplasia or carcinoma. 2. ILEUM, SMALL BOWEL ENTERITIS, BIOPSIES: A. Acute inflammation with hemorrhage and reactive changes consistent with acute enteritis. B. Negative for granuloma formation, dysplasia or carcinoma. 3. PROXIMAL TRANSVERSE COLON ULCER, BIOPSY: A. Fragments of colonic mucosa showing acute inflammation, crypt abscess formation and reactive glandular changes. B. Negative for significant chronic inflammation, basal plasmacytosis or glandular branching. COMMENT: Part 2 and 3 showed acute inflammation with reactive changes without significant chronic inflammation. These finding can be see in acute self limiting colitis or drug induced colitis however early inflammatory bowel disease cannot be definitively ruled out. Recommend clinical and endoscopic correlation. Dane Herrera MD Pathologist 08/03/20 16:31 GROSS DESCRIPTION: 1. Three received in formalin labeled Caroline Aguillonra. Designated duodenum are three apparent tissue fragments measuring 0.2-0.4 cm. Filtered into cassette 1. 2. Designated ileum are multiple tissue fragments ranging in size from 0.2-0.3 cm. Filtered into cassette 2. 3. Designated transverse colon are three apparent tissue fragments measuring 0.2-0.3 cm. Filtered into cassette 3. (BJR/kk) MICROSCOPIC DESCRIPTION 1. In compliance with [facility] regulations, the pathologist s signature on this report indicates thatthe case has been personally reviewed by the pathologist. Microscopic examination was used to arrive at the diagnosis unless indicated otherwise. 2. Small bowel/ileum biopsies show acute inflammation with cryptitis, edema, hemorrhage, and reactive changes. No significant chronic inflammation, basal plasmacytosis and crypt abscesses are identified. 3. Sections show fragments of colonic mucosa with acute inflammation of the lamina propria, crypt abscess formation and reactive glandular changes. No significant chronic inflammation with basal cellplasmacytosis is noted. (DG/chayito) [facility] - [address], [place] [address] - CLIA: [id number] End of Report ??? Campylobacter Sp, stool PCR 07/31/2020 Not Detected Not Detected Final ??? C. diff PCR Toxins A+B, stool 07/31/2020 Not Detected Not Detected Final Negative results for C. difficile PCR indicates no presence of C. difficile.?? Patient does NOT need to be in Enteric Precautions and NO treatment is necessary. Two distinct groups have been identified that can harbor C. difficile asymptomatically at very high rates. Colonization at rates up to 50% and higher have been reported in infants and rates up to 25% in cystic fibrosis patients. The association of C difficile with disease in infants under the age of 3 years is not well understood therefore results are not reported. PCR testing alone cannot distinquish C. difficile disease from a carrier state, and therefore correlation with clinical findings is required. ??? C. diff PCR Reflex to EIA 07/31/2020 No Final ??? Plesiomonas shigelloides, stool PCR 07/31/2020 Not Detected Not Detected Final ??? Salmonella species, stool PCR 07/31/2020 Not Detected Not Detected Final ??? Vibrio (parahaemolyticus,vulnificu* 07/31/2020 Not Detected Not Detected Final ??? Vibrio cholerae, stool PCR 07/31/2020 Not Detected Not Detected Final ??? Yersinia enterocolitica, stool PCR 07/31/2020 Not Detected Not Detected Final ??? E. coli (EAEC) Enteroaggregative p* 07/31/2020 Not Detected Not Detected Final ??? E. coli (EPEC) Enteropathogenic ea* 07/31/2020 Not Detected Not Detected Final ??? E. coli (ETEC)Enterotoxigenic ltA+* 07/31/2020 Not Detected Not Detected Final ??? E.coli (STEC) Shiga-like toxin stx* 07/31/2020 Not Detected Not Detected Final ??? Shigella/Ecoli (EIEC)Enteroinvasiv* 07/31/2020 Not Detected Not Detected Final ??? Cryptosporidium, stool PCR 07/31/2020 Not Detected Not Detected Final ??? Cyclospora cayetanensis, stool PCR 07/31/2020 Not Detected Not Detected Final ??? Entamoeba histolytica, stool PCR 07/31/2020 Not Detected Not Detected Final ??? Giardia lamblia, stool PCR 07/31/2020 Not Detected Not Detected Final ??? Adenovirus F 40/41, stool PCR 07/31/2020 Not Detected Not Detected Final ??? Astrovirus subtypes 1-8, stool PCR 07/31/2020 Not Detected Not Detected Final ??? Norovirus I + II, stool PCR 07/31/2020 Not Detected Not Detected Final ??? Rotavirus A, stool PCR 07/31/2020 Not Detected Not Detected Final ??? Sapovirus (I, II, IV, V), stool PCR 07/31/2020 Not Detected Not Detected Final Clinical Support on 07/28/2020 Component Date Value Ref Range Status ??? SARS-CoV-2 (COVID-19) Qual PCR 07/28/2020 Not Detected Not Detected Final Comment: Performed using high-throughput nucleic acid amplification platforms at [facility] using either TaqPath COVID-19 Combo Kit assay or Quidel Emily SARS-CoV-2 assay, both FDA-cleared Emergency Use Authorization (EUA) assays (details available upon request). TaqPath COVID-19 Combo Kit assay was validated by [employer] using nasopharyngeal swab, nasopharyngeal aspirate, and bronchoalveolar lavage samples, and Quidel Emily SARS-CoV-2 assay was validated by [employer] using nasopharyngeal and oropharyngeal swab samples. Other sample types have not been independently validated by [facility] but information on preferred and acceptable collection sites and collection procedures may be obtained at the CDC website (https://www.cdc.gov/co ronavirus/2019-ncov/lab/kexgplhyln-ikoyicmf-stleqgdxf.html), which is updated frequently. Negative results do not preclude infection with SARS-CoV-2 virus and should not be the sole basis of a patient management decision. In some patients repeat testing at various time points or from various collection sites may be necessary for virus detection. False-negative results may arise from improper sample collection, degradation of viral RNA during shipping or storage, the presence of RT-PCR inhibitors, and/or mutation in the SARS-CoV-2 virus. Pooled testing may be used for some specimens. Pooled testing been has been validated at [facility] with oversight by [facility] Department of Health, using no greater than four specimens per pool. Negative results from pools are reported directly while positive results are reflexed to neat (unpooled) testing of individual specimens. [facility] validation studies demonstrated minimal effect on sensitivity with this level of pooling. The impact of vaccines, antiviral therapeutics, antibiotics, and chemotherapeutic or immunosuppressant drugs on assay performance has not been evaluated. Please see [facility] website for updated testing algorithms and other information. Performed at [facility] - CLIA #:[id number], [id number] Abstract on 07/27/2020 Component Date Value Ref Range Status ??? External LDL Cholesterol 06/26/2020 48 mg/dL Final ] Assessment/Plan 75 year old female with history of cholecystectomy in 1985, ventral hernia repair surgery,hypothyroidism, diabetes, rheumatoid arthritis on Xeljanz, hypertension, anticoagulated with Eliquisand plavix Who presents for consultation for dysphagia for the past 1 year. Patient was mated to the hospital on Apr 15, 2021 for weakness and altered mental status With acute kidney injury and hyperkalemia and sepsis in which she was treated with antibiotics. Patient complains of dysphagia to solids only. Patient can drink water okay. Patient also has odynophagia but no history of asthma. Patient's bowel movements currently is one time per day and well formed. Patient currently taking Xeljanz for her rheumatoid arthritis. Patient denies family history colon cancer, IBD or celiac disease. Patient denies rectal bleeding, nausea vomit, hematemesis, change in bowel habits. ?? 07/31/2020- egd/colon- Normal upper endoscopy, status post right hemicolectomy, 2.5 cm solitary ulcerseen in the transverse colon status post biopsy which showed crypt abscesses concerning for possibleCrohn's disease.Biopsies of the duodenum was normal. Biopsy of the small bowel showed acute inflammation with hemorrhage consistent with acute enteritis. Negative for granulomas dysplasia or carcinoma was during the small bowel of the ileum. ? At this time, I do recommend upper endoscopy with anesthesia for the patient's dysphagia and odynophagia. Differential diagnosis includes infection versus candidiasis which is very high due to the patient is on immunosuppression with Xeljanz versus stricture versus malignancy versus Schatzki's ring versus eosinophilic esophagitis. Given the fact that the patient is on both Plavix and Eliquis, I recommend holding both at this point in time. The patient's upper endoscopy will be tentatively scheduled for this coming due to the anticoagulation. N.p.o. at midnight prior to day of egd. ?? Recs: 1) egd mac 2) hold all anticoagulation if possible 3) goal inr <1.5 prior to egd ?? Will follow Mohsen Fair MD 05/19/2021 3:38 PM KATERussell Cantu, CASSANDRA DEVELOPER - 05/19/2021 1:47 PM PDT SOCIAL WORK: PROGRESS NOTE Data: EMR reviewed. Pt is on day 33 for Problem List Items Addressed This Visit Digestive Dysphagia Relevant Orders Case Request (Completed) Musculoskeletal * (Principal) Pressure injury of skin of right calf Relevant Orders MISC. TEST - (Completed) Culture, Deep Abscess Aerobic&Anaerobic w/gram stain (Completed) Other Visit Diagnoses Acute renal failure, unspecified acute renal failure type (CMS/HCC) - Primary Relevant Orders Ambulatory Referral to Cardiac Rehabilitation Hyperkalemia Sepsis due to skin infection ([facility]) Acute anemia Occult blood in stools Acute cystitis without hematuria Per discussion with provider, discharge needs include HH. Social Work consults to coordinate these services have been ordered by physician at this time. PRECIPITATOR OPERATOR spoke to Sisi at [facility] who reports that because pt lives in [facility] they do not have certificate of need to tower observer that [facility] even if they were to meet the pt on the main land. [facility] dose not serve [facility] as well. The [place] agency that [place] is [facility] but they can not go to [facility] they can only serve pt if pt is willing to meet them in a hotel, PRECIPITATOR OPERATOR met with pt & spouse at bedside they reports they pay $250 round trip to get [place] that they would have to pay for a hotel. Spouse reports it would be cheaper & convenient if they paid for [facility] to get to [facility], PRECIPITATOR OPERATOR spoke to Sheyla at [facility] who reports she needs to ask her log sorting supervisor about that & will get back to PRECIPITATOR OPERATOR. ADDENDUM: PRECIPITATOR OPERATOR received TC from Sheyla who reports she staffed it with her log sorting supervisor who reports they are not able to accept pt/family to pay for boat transportation to [facility]. PRECIPITATOR OPERATOR made referral to [facility] Transitions Coordinator who reports she is not taking any new referrals at this time but will pass it along to the new Care Transitions Coordinator Crystal. Barriers to Discharge Include: Medical stability & HH agency that can serve pt. Assessment: alert and oriented x4 Per PRECIPITATOR OPERATOR interactions, Physician Documentation and Nursing Documentation, patient has capacity for self care and has decisional capacity at this time. Plan: Anticipate patient to discharge to home with [facility]. PRECIPITATOR OPERATOR will continue to follow pt's clinical course. LYLE GoldsteinW KATEEricAustin longoria, HEAD CHAR FILTER TANK TENDER - 05/19/2021 10:32 AM PDT Inpatient Physical Therapy Treatment Note Patient Name: Shirin Aguillon MR#: [id number] Today's Date: 05/19/2021 PT Last Visit PT Received On: 05/19/21 HEAD CHAR FILTER TANK TENDER Visit Count: 2 Precautions General Precautions: High Fall Risk, multi wounds BLE, anxious Subjective: Cognition Overall Cognitive Status: Within Functional Limits Arousal/Alertness: Appropriate responses to stimuli Memory: Appears intact Orientation Level: Oriented X4 Safety Judgment: Good awareness of safety precautions Pain Assessment Pain Assessment: 0-10 Pain Score: 5 - Moderate pain Pain Type: Acute pain Pain Location: Leg Pain Orientation: Distal Objective/Interventions: Mobility Rolling: Modified independent with railing Supine to Sit: Modified independent with railing Sit to Supine: Modified independent with railing Sit to Stand: Contact guard assistance Sit-Stand Devices Used: Front wheeled walker Stand to Sit: Stand by assistance Stand-Sit Devices Used: Front wheeled walker Stand Pivot Transfers: Contact guard assistance Stand Pivot: Devices Used: Front wheeled walker Ambulation: Contact guard assistance Ambulation: Devices Used: Front wheeled walker Ambulation Distance (Feet): 60 Feet (15'x2 w/seated rest 2mins, 30' ) Sitting Balance: Supports self independently Standing Balance: Contact guard assistance Goals and Progress: Plan Assessment: Lou was hesitant but agreeable to skilled PT today. Pt present anxious and concerned about transfusion and procedure tomorrow. Copious amounts of time spent encouraging pt to cont to workw/PT as well as getting up to chair at least 3x/daily to increase amount of time spent oob. Pt eventually agrees to work on trans training and AMB. Pt performed bed mobility and transfers w/Mod Ind using FWW. Instructed AMB slow antalgic gait CGA/FWW 60' total(see above). Pt returned to bed post AMB To discuss DC planning. Pt reports she has 14 stairs inside to living space, however she stated that she has a chair lift system to accommodate this. PT will cont to progress pt as appropriate. Treatment/Interventions: ADL retraining, Functional transfer training, LE strengthening/ROM, Endurance training, Patient/family training, Equipment eval/education, Bed mobility, Gait training, Compensatory technique education, Continued evaluation Progress: Slow progress, decreased activity tolerance Multidisciplinary Problems IP Therapy Problems (Active) Problem: Physical Therapy - Adult Goal Priority Disciplines By Discharge: Performs mobility at highest level of function for planned discharge setting. See evaluation for individualized goals. PT Description: 04/24/21 *pt to perform bed mobility with HOB flat, no rails and with stand-by assistance *pt to transfer with front wheeled walker with stand-by assistance *pt to ambulate 150 feet with front wheeled walker and with stand-by assistance *pt to ascend and descend 7 stairs with hand rail and with stand-by assistance in order to safely negotiate home environment Plan: Recommendation IP PT Status: 2 PT Frequency (in-house): 5-7/wk Post-discharge recommendation: Home with assist, Home PT Discharge Transportation: Cabulance, Private vehicle PT Frequency upon discharge: 2-3x/wk Electronically signed by Austin Santoro PTA Ricardo Rosa DO - 05/19/2021 8:39 AM PDT [facility] Progress Note Inpatient Primary Care [facility] Patient Name: Shirin Aguillon Date of : 1945 Age: 75 y.o. Code Status: Full Code Primary Care Physician: Rogelio Braga MD Admitting Provider: Ana Maria Narvaez MD Attending Provider: Iron Lowry DO Admit Date: 04/15/2021 Date of Service: 05/19/2021 Hospital Day: 33 Assessment and Plan Shirin Aguillon is a 75 y.o. female anticoagulated with Eliquis??with a hx notable for type II diabetes mellitus, hypertension, hyperlipidemia, CKD, and rheumatoid arthritis??who presents to the ED??for evaluation of altered mental status and found to be in CAMILLE with hyperkalemia. Patient was treatedwith temporary hemodialysis and course of antibiotics for sepsis. Currently being treated for failure to thrive and deconditioning, autoimmune disease, bilateral lower extremity wounds and unstable angina. Discharge planning: - Working with SW for LTC placement options - multiple LTC/SNF denials thus far - Pt lives on [facility] with family support. Working with HH for possible HH services coordinated on [facility] periodically. This option is unideal however pt and family are agreeable - Pending below acute medical issues workup & treatment Acute on Chronic anemia,??present on admission, stable.?? Iron profile is compatible with anemia ofchronic disease. - Acutely due to post-cath hematoma - was previously recommend Outpatient colonoscopy - Hgb goal >8.0 - Transfuse 1 unit PRBCs 05/19 for Hgb <8 R groin hematoma, not present on admission, active & improving Post op complication from cardiac catheterization, likely precipitated by the medical need for dual antiplatelet and anticoagulation therapies. Hematoma stable - Pressure sandbag applied with stabilization of hematoma, apply ice PRN for pain, defer decision toultrasound if needed to cardiology team Dysphagia, not present on admission, active Reportedly pt has had dysphagia to solids for 'years,' however it worsened acutely recently with significant nausea and indigestion. Per records pt has had EGD last year 08/18 - Continue PPI & tums - AU PAIR eval; recommended GI evaluation - Gastroenterology Dr Fair consulted; plan for EGD on 05/20 after ~48hrs off apixaban anticoagulation, d/w cardiology. Continuing dual antiplatelet Nausea on chronic GERD, not present on admission, improving Waxing and waning, amenable to zofran, associated with burning epigastric pain - nausea control prn, treatment of GERD - continue PPI, Tums with meals, upright for meals Hyponatremia, present on admission, waxing and waning Fluctuated as fluid status and renal function changed throughout hospital course. Currently likely secondary to decreased PO intake, fluid shifts, iv contrast - monitor for now, encourage po fluids, treat nausea & dysphagia as above Coronary Artery Disease s/p ANDREA to LAD, present on admission, active EKG 05/15 showed diffuse T-wave inversions which were new, Trial of SL nitroglycerin significantly lowered patient's blood pressure. - Pt received Heparin infusion for about 36hrs until cardiac cath - Cardiology consulted; Cardiac Cath 05/17 resulted in ANDREA to LAD - Continue daily ASA, Plavix Soft tissue ulcerated wounds of bilateral lower extremities, POA. Improving. 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 Patient reports she developed these wounds following an allergic reaction to TMP-SMX. She was followed by Rheumatology for this; previously on Xeljanz, Leflunomide and Sulfasalazine for Crohn's and seronegative RA. Followed by Dr Shepherd. Pt reports another [employer] sales consultant switched her to Prednisone daily however I am not able to view these records - S/p bilateral calf wound debridement per GS, Micro positive for light growth pseudomonas and zenaida albicans - Continue wound care, wound consult team following; appreciate their excellent care and recommendations. Examined 05/07, no evidence of subcutaneous infection. See media tab - treatment of presumed autoimmune etiology and diabetes - conservative pain control. OK for 10mg [place] ~30m prior to wound dressing changes - Needs Outpatient Referral to Gen Surg for wound Biopsy - Pt had biopsy in the past at [facility] per report and records. Will reach out to try to obtain the report or pathology findings Inflammatory bowel disease and rheumatoid arthritis on prednisone therapy, present on admission, active - continue oral Prednisone every day - Previously on Xeljanz, Leflunomide and Sulfasalazine. Reportedly discontinued this recently for prednisone and also discontinued outpatient Cipro for recurrent UTis - Discussed with Dr Shepherd Rheumatology 05/07, pt safe to resume & continue Sulfasalazine for Crohn's. Presumably the ulcers are from IBD however not safe to resume xeljanz and leflunomide due to infection - Recommend F/u with outpt rheumatology outpt for mgmt Depression, not present on admission, active Unclear if this is acute on chronic, may be related to adjustment disorder due to prolonged hospitalization and difficulty with placement, separation from family, decreased functional status and need for increased care. Differential includes bipolar depression, major depression - Continue sertraline, levocarnitine (give with food) - Recommend trial outpt N-acetylcysteine 500mg bid adjunct supplement for depression Weakness, Fatigue & Deconditioning, POA, improving - Functional status prior to admission:??Ambulates with a walker, stair chair at home, few stairs onher own. - Continue Physical therapy; recommending rehabilitation - SNF vs , disposition planning. Encourage pt to strengthen. Up in chair for meals, ambulate TID Chronic kidney disease III, present on admission, stable Baseline Cr around 1.2-1.3 during this admission, previous baseline around 1.1 prior. Likely she is at a stable baseline - UA / urine protein creatinine ratio exhibited significant nephropathy likely diabetic - Discontinue EMILY due to renal intolerance, d/w Nephro curbside - BUN/Cr did not improve much with supplemental IVF - Advised pt to drink >2.5L fluids daily Constipation, not present on admission, acute on chronic Likely due to low mobility and depressed PO intake, opiates likely contributory pt has diarrhea from Crohns disease at baseline - Begin daily bowel regimen (conservative), no fiber or laxatives due to crohn's disease Cystitis, acute on chronic, present on admission, resolved and now recurred & resolved Previously patient had evidence of Urogenital sepsis on admission, treated with broad spectrum antibiotics and a urine culture did not grow a pathogen. Pt has history of outpt Ciprofloxacin regimen, not currently taking per history and records. 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 - Glargine reduced on 04/27, discontinued on 04/28 - Sliding scale as needed plus lantus, currently well controlled -F/u outpt for monitoring and/or oral medicines with pcp Decreased oral intake, not POA. Likely related to chronic disease (inflammatory), GERD and decreased appetite from acute illness - Encourage food and fluid, no advance feeding interventions ?? Cardiac Focal wall motion abnormality, present on admission, resolved Echo 04/21 exhibited area of wall motion abnormality, EF 50% (WNL). Seen by cardiology, recommended optimal medical management with outpt f/u - Continue Betablocker, statin, EMILY, apixaban - Repeat Echo 05/15 exhibited subtle WMA & improvement in EF ?? Atrial fibrillation with rapid ventrilcular response ,??present on admission, chronic. RVR has Resolved. [id number] score of at least 4. No Afib notable on most recent Peggy patch outpatient -Continue her ambulatory diltiazem XR 240 mg and Apixaban Hypokalemia with Hypomagnesemia, not present on admission. Resolved. - Replete both electrolytes as needed. Likely secondary to diarrheal losses. Hypothyroidism, poa, chronic. Resumed Levothyroxine po 05/13 Respiratory distress, present on admission. Resolved. Metabolic acidosis with respiratory partial compensation, not present on admission. Resolved. CAMILLE, acute, present on admission. Resolved. Diarrhea, not present on admission, Resolved. Partly due to Crohn's Sepsis, acute, present on admission. Resolved. Body jerking,??present on admission. Resolved. VTE Prophylaxis: Dual antiplatelet, holding anticoagulation for now Code Status: Full code Disposition: Pending workup of cardiac, GI and bleeding issues: Waiting for [facility] vs approval for discharge disposition. Current Hospital Medications Allergies Allergies Allergen Reactions ??? Bactrim [Sulfamethoxazole-Trimethoprim] Swelling ??? Betadine [Povidone-Iodine] ??? Fish Derived ??? Iodine ??? Other [place] products ??? Shellfish Containing Products Medications Scheduled aspirin, 81 mg, oral, Daily atorvastatin, 40 mg, oral, Nightly carvediloL, 6.25 mg, oral, BID with meals clopidogreL, 600 mg, oral, Once And clopidogreL, 75 mg, oral, Daily diltiazem CD, 240 mg, oral, Daily insulin glargine, 6 Units, subcutaneous, Nightly insulin lispro, 0-5 Units, subcutaneous, Nightly insulin lispro, 0-6 Units, subcutaneous, TID with meals lactobacillus rhamnosus GG, 1 capsule, oral, Daily levOCARNitine, 500 mg, oral, Daily with dinner levothyroxine, 75 mcg, oral, q AM AC magnesium chloride, 1 tablet, oral, Daily with breakfast miconazole, , Topical, BID ondansetron ODT, 4 mg, oral, Once pantoprazole, 40 mg, oral, q AM AC predniSONE, 5 mg, oral, Daily senna, 1 tablet, oral, BID sertraline, 25 mg, oral, Nightly sulfaSALAzine, 1,000 mg, oral, BID As needed ??? acetaminophen ??? atropine ??? calcium carbonate ??? dextrose 50% (D50W) ??? diazePAM ??? diphenhydrAMINE ??? flumazeniL ??? HYDROcodone-acetaminophen ??? HYDROmorphone ??? lidocaine ??? Insert peripheral IV AND lidocaine AND Maintain IV access AND Saline lock IV AND sodium chloride ??? Insert peripheral IV AND lidocaine AND Maintain IV access AND Saline lock IV AND sodium chloride ??? Insert peripheral IV AND lidocaine AND Maintain IV access AND Saline lock IV AND sodium chloride ??? Insert peripheral IV AND lidocaine AND Maintain IV access AND Saline lock IV AND sodium chloride ??? metoprolol ??? naloxone ??? naloxone ??? nitroglycerin ??? ondansetron ??? ondansetron ??? ondansetron ODT ??? promethazine ??? [COMPLETED] Prepare/Crossmatch RBC: 1 Units AND [COMPLETED] Transfuse RBC: 1 Units AND [COMPLETED] Nursing communication: Ensure provider has obtained Informed Consent for Blood Transfusion AND Vital Signs AND sodium chloride AND [COMPLETED] Nursing Communication: Transfusion Reaction Management ??? sodium chloride Infusions Subjective Patient's Update Patient 'feeling ok,' no acute nausea or chest pain. Groin feels better, denied overnight nightly symptoms from cardiac arrhythmia. Pt family visited, updates given and questions answered. Pt agreeable to blood transfusion Interval Update 15 minutes of atrial tachycardia per telemetry, pt asymptomatic Objective BP 101/69 (BP Location: Left arm, Patient Position: Lying) Pulse 89 Temp 36.7 ??C (98.1 ??F) (Oral) Resp 18 Ht 1.524 m Wt 74 kg SpO2 96% BMI 31.86 kg/m?? Intake/Output Summary (Last 24 hours) at 05/19/2021 0839 Last data filed at 05/18/2021 1825 Gross per 24 hour Intake 200 ml Output 450 ml Net -250 ml Physical Exam Vitals and nursing note reviewed. Constitutional: General: She is not in acute distress. Appearance: She is obese. She is ill-appearing (chronically). HENT: Head: Normocephalic. Comments: Temporal wasting notable Hair loss alopecia notable Eyes: Extraocular Movements: Extraocular movements intact. Cardiovascular: Rate and Rhythm: Normal rate and regular rhythm. Pulses: Normal pulses. Heart sounds: No murmur heard. Pulmonary: Effort: Pulmonary effort is normal. No respiratory distress. Breath sounds: Normal breath sounds. No wheezing, rhonchi or rales. Abdominal: General: Abdomen is flat. There is no distension. Tenderness: There is no guarding. Genitourinary: Comments: R groin cath site with tender edematous area with clean dry intact dressing in place, TTP Musculoskeletal: General: Tenderness (to bilateral lower exremities) present. Normal range of motion. Skin: General: Skin is warm and dry. Coloration: Skin is pale. Skin is not jaundiced. Findings: Bruising present. Comments: Thin and fragile skin Neurological: Mental Status: She is alert. Mental status is at baseline. Motor: Weakness present. Psychiatric: Attention and Perception: Attention normal. Mood and Affect: Mood is anxious and depressed. Speech: Speech normal. Comments: Flat affect Labs and ECG Hematology Results from last 7 days Lab Units 05/19/21 0420 05/18/21 0620 05/17/21 0539 WBC AUTO x10e3/uL 6.7 7.9 6.4 HEMOGLOBIN g/dL 7.7* 8.4* 9.8* HEMATOCRIT % 25.6* 28.4* 33.9* MCV fL 83 85 84 PLATELETS AUTO x10e3/uL 252 287 252 Chemistries Results from last 7 days Lab Units 05/19/21 0420 05/18/21 0620 05/17/21 0538 05/16/21 1119 05/15/21 0856 SODIUM mmol/L 133* 131* 135 < > 135 POTASSIUM mmol/L 4.5 4.7 4.5 < > 4.1 CHLORIDE mmol/L 101 100 101 < > 100 CO2 mmol/L 25 24 27 < > 26 BUN mg/dL 19.0 17.0 12.0 < > 13.0 CREATININE mg/dL 1.57* 1.57* 1.58* < > 1.46* GLUCOSE mg/dL 147* 308* 168* < > 121* CALCIUM, SERUM mg/dL 8.5 8.6 8.8 < > 8.9 MAGNESIUM mg/dL 2.0 1.6 -- -- 2.0 < > = values in this interval not displayed. Estimated Creatinine Clearance: 28.7 mL/min (A) (by C-G formula based on SCr of 1.57 mg/dL (H)). Urinalysis Microbiology Urine culture Hafnia Alvei 05/05 and 05/07 Diagnostic Imaging Imaging results: XR CHEST 1 VIEW IMPRESSION: Dobbhoff tube tip is in the region of distal stomach lumen below the right hemidiaphragm. No free air under the diaphragm. Mild pulmonary vascular congestion. No gross pneumothorax. Reviewed by: Jacinto Rodriguez M.D. on 04/23/2021 at 16:54 ECHOCARDIOGRAM COMPLETE Version: 1 Study ID: [id number] ?? [address] [address] Phone: ADULT ECHOCARDIOGRAM ?? Name: SHIRIN AGUILLON Study Date: 04/23/2021, 7: 55 AM : 1945 BP: 147 / 80 mmHg Gender: Female Height: 60 in Age: 75 Years Weight: 187.393 lb Pt. Location: [facility]^2008^2008-10 BSA: 1.82 m? Ordering: JORDAN RAMSEY Referring: Leon Hospitalist Clinician: Carli Vasquez Reason For Study: Dyspnea History: Summary Statements This is a technically difficult study characterized by limited endocardial visualization. Next time recommend Definity echocontrast if possible. Normal sinus rhythm with occasional PAC's. Normal LV size and wall thickness. There is subtle mid-anterior hypokinesis, but normal wall motion otherwise. EF is 50-55%. Stage II diastolic dysfunction. Normal chamber sizes. Aortic sclerosis without stenosis. Otherwise no valvular abnormalities. Compared to prior study 09/2019, focal wall motion abnormality involving mid-anterior segment is newly described Electronically signed by: Lucinda Bahena M.D. 04/23/2021, 3: 19 PM Results for orders placed during the hospital encounter of 04/15/21 ECHOCARDIOGRAM LIMITED Narrative [facility] + [facility] +---------+ : : [address] : : : : [address]. : : : : [place], : : : : [place] [address] : : : : Phone: [phone] Echocardiogram Report + + :Name: SHIRIN AGUILLON Study Date: 05/16/2021 Height: 60 in : :[facility] ReadingLocation: Weight: 168 lb : : Gender: Female BSA: 1.7 m2 : :: 1945 Age: 75 yrs BP: 135/83 mmHg: :Reason For Study: Assess LV wall motion and EF : :Ordering Physician: MARY, : :NIKKO Performed By: Veronica Raphael : :Referring: RED TEAM : + + Interpretation Summary Limited Echo: 1) Normal left ventricular size and systolic f unction (EF 55-60%). 2) Subtle mid anterior and mid anterolateral wall hypokinesis present. Septal bounce present. 3) Compared to the Echo done 04/23/2021, no significant change when compared visually. Procedure: A two-dimensional transthoracic echocardiogram with color flow and Doppler was performed in limited views only to assess Assess LV wall motion, EF. The study quality was technically adequate. Comparison is made with the echocardiogram of 04/23/2021. The patient was in normal sinus rhythm during the exam. Left Ventricle: The left ventricle is normal in size and wall thickness. A false chord is noted (normal variant). The ejection fraction is estimated to be 55-60%. Subtle mid anterior and mid anterolateral wall hypokinesis present. Septal bounce present. Tricuspid Valve: The tricuspid valve is normal in structure and function. There is a trace or physiologic amount of tricuspid regurgitation. Pulmonary artery pressures cannot be estimated because of the lack of a measurable TR jet velocity but the IVC suggests a CVP of around 3 mmHg. Great Vessels: The IVC is of normal diameter and collapses greater than 50% with a sniff. This suggests a low right atrial pressure of 3 mm Hg. Pericardium/ Pleura There is no pericardial effusion. There is an anterior echo-free space consistent with a fat pad. MMode/2D Measurements & Calculations LVIDd: 4.1 cm IVC diam: 1.6 cm LVIDs: 2.6 cm IVSd: 0.77 cm LVPWd: 0.51 cm LV bai. diameter/BSA (cm/m^2): 2.4 LV sys. diameter/BSA (cm/m^2): 1.5 FS: 35.7 % Reading Physician:10:39 AM Results for orders placed during the hospital encounter of 04/15/21 SI STENT ANDREA - CORONARY Narrative PROCEDURE PERFORMED: 1. Percutaneous intervention on the left anterior descending. 2. Supervision for moderate sedation. PROCEDURAL DETAILS: Please refer to the procedure log for complete details. Briefly, Dr. Tan did the diagnostic angiogram. I was asked to do an intervention. The patient was given moderate sedation with IV versed and fentanyl by a dedicated nurse under my [id number] supervision using physiological monitoring for the duration of the procedure. INTERVENTIONAL DETAILS: Using a Voda 3.0 guide and a Runthrough wire, we were able to balloon dilate this proximal LAD lesion which was around 80-90%. It was then stented with a 3.5 x 15 mm Xience drug coated stent delivered at 14 atmospheres with excellent angiographic results. Dual antiplatelet therapy per guidelines. Total contrast used 15 cc. Electronically signed by: Ricardo Griffin DO 05/19/2021 at 8:39 AM Portions of today's documentation have been created with the assistance of voice recognition software. Therefore, it may contain anomalous punctuation, anomalous independent misrecognitions, word substitutions, insertions or omissions. Occasional wrong-word or phonetically similar substitutions may also occur, all due to the inherent limitations of voice recognition software. Attempts to correct the above have been made by Ricardo Griffin DO but it is recommended that the chart be read carefully to recognize, using context, where the substitutions may have occurred. Associated attestation - Iron Lowry DO - 05/19/2021 7:23 PM PDT I saw and evaluated the patient, participating in the villarreal portions of the service. I reviewed the resident???s note. I agree with the resident???s findings and plan. Patient with ANDREA to LAD on 05/17 develop groin hematoma. On 05/19 required 1uPRBCs. Ongoing issues with difficulty swallowing, nausea, and stomach pain. Plan for GI with EGD on 05/20. Off apixaban in anticipation of scopes. Continue antiplatelet agents due to recent stent. Ongoing difficulty with safe discharge plan and access to needed services due to patient living on [facility] with only private boat access.Austin Santoro, HEAD CHAR FILTER TANK TENDER - 05/18/2021 3:31 PM PDT Inpatient Physical Therapy Treatment Note Patient Name: Shirin Aguillon MR#: [id number] Today's Date: 05/18/2021 PT Last Visit PT Received On: 05/18/21 HEAD CHAR FILTER TANK TENDER Visit Count: 7 Precautions General Precautions: fall risk, multiple bilat LE wounds Subjective: Cognition Overall Cognitive Status: Within Functional Limits Arousal/Alertness: Appropriate responses to stimuli Orientation Level: Oriented X4 Safety Judgment: Good awareness of safety precautions Vital Signs Heart Rate: 100 Heart Rate Source: Monitor BP: 122/77 MAP: 92 mmHg BP Location: Right arm BP Method: Automatic Patient Position: Sitting Objective/Interventions: Mobility Rolling: Modified independent with railing Supine to Sit: Modified independent with railing Sit to Supine: Minimal assistance (d/t dizziness and nausea) Sit to Stand: Contact guard assistance Sit-Stand Devices Used: Front wheeled walker Stand to Sit: Stand by assistance Stand-Sit Devices Used: Front wheeled walker Stand Pivot Transfers: Contact guard assistance Stand Pivot: Devices Used: Front wheeled walker Ambulation: (pt became dizzy/nauseous after trans to BS, AMB held today ) Stairs: (pt has 7 steps in [facility]) Sitting Balance: Supports self independently Standing Balance: Contact guard assistance Goals and Progress: Plan Assessment: Lou was agreeable to skilled PT today. Pt cont to report and c/o bilat LE wounds/pn atbeginning of tx and presents anxious with mobilization. PT educated the importance of cont and frequent attempts w/upright mobility while admitted. Pt instructed bed mobility and trans training to [facility] requiring little to no physical assist. Pt bcame sig. Dizzy while on BSC, vitals taken(see flowsheet)unremarkable results. Pt then reports high level of anxiety and wishes to return to bed. PT will f/uagain tomorrow 05/19 to progress AMB and trial steps for DC home w/assist and HHPT. Treatment/Interventions: ADL retraining, Functional transfer training, LE strengthening/ROM, Endurance training, Patient/family training, Equipment eval/education, Bed mobility, Gait training, Compensatory technique education, Continued evaluation Progress: Slow progress, decreased activity tolerance Multidisciplinary Problems IP Therapy Problems (Active) Problem: Physical Therapy - Adult Goal Priority Disciplines By Discharge: Performs mobility at highest level of function for planned discharge setting. See evaluation for individualized goals. PT Description: 04/24/21 *pt to perform bed mobility with HOB flat, no rails and with stand-by assistance *pt to transfer with front wheeled walker with stand-by assistance *pt to ambulate 150 feet with front wheeled walker and with stand-by assistance *pt to ascend and descend 7 stairs with hand rail and with stand-by assistance in order to safely negotiate home environment Plan: Recommendation IP PT Status: 2 PT Frequency (in-house): 5-7/wk Post-discharge recommendation: Home with assist, Home PT Discharge Transportation: Private vehicle, Cabulance PT Frequency upon discharge: 2-3x/wk Electronically signed by Austin Santoro PTA ouise Jaramillo, [facility] - 05/18/2021 2:51 PM PDT Images from the original note were not included. Inpatient Speech Language Pathology Clinical Swallow Evaluation Name: Shirin Aguillon Date of : 1945 Date of Assessment: 05/18/2021 Impressions Chronic difficulty tolerating solid food intake in setting of multiple comorbidities (Crohns, enteritis, esophageal spasm). No difficulty with liquids, however. Symptoms are consistent with esophageal/gastric disease and for further evaluation should be worked up by gastroenterology team if deemed appr opriate by MD Recommendations Continue diet as tolerated, per patient she typically avoids chunky meats and rice. AU PAIR Plan of Care Defer to MD and GI, no indication for AU PAIR intervention at this time. Thank you for this consult and the opportunity to participate in this patient's care. History & reason for referral Shirin Aguillon, a 75 y.o. female, seen today due to MD order. Pt presented to hospital for sepsis and CAMILLE, this is day 32 of admission. Seen by AU PAIR earlier in stay, with recommendations for 1:1 assist and no report/observation of difficulty with diet. Pt accompanied by and son. She reports chronic difficulty with getting chunky meats and ricestuck. No difficulty with liquids. This has been going on for years. Weight loss related to ongoing struggle with Crohns, enteritis. Knows that she should avoid things like delgado, turkey, in hospital but is tired of eating cream of chicken soup. attests to the veracity of her history. History dysphagia: yes History head/neck cancer or surgery: No History GERD or esophageal disease: yes, takes medications for reflux Recent unintentional weight loss or dehydration: ongoing weight loss History recurrent PNA: No Imaging/Labs Head CT results: No acute findings. CXR results: No acute findings. MR Brain: Not performed this admission. Other relevant imaging: None. Clinical signs of infection or compromised immune system: None. Cognition/Language AOx4. Language normal in conversation. Dentition/Hearing/Respiration Full dentition. Hearing WFL. On room air breathing comfortably. Cranial nerve examination CN V (Trigeminal) Hyolaryngeal elevation and mylohyoid tension palpated during cued swallow: Intact Masseter bulge palpated during cued jaw clench: Intact Jaw opening: Symmetrical CN VII (Facial) Facial symmetry upper quadrant: Intact Facial symmetry lower quadrant: Intact Lip pucker: Intact Cheek puff: Intact Sensation to face, lips, cheeks: Intact CN IX (Glossopharyngeal, no direct clinical assessment available.) Pt report of sensation changes in soft palate, posterior 1/3 tongue: No CN X (Vagus) Palatal elevation: Intact and symmetrical Vocal quality: WNL CN XII (Hypoglossal) Tongue protrusion: Symmetrical Bilateral tongue push against cheek: Symmetrical Fasciculations: None Cued cough: Perceptual observation of strong and effective cough with glottic closure PO trials Hustle Swallow Protocol: Not attempted, said it would make her throw up. Position: upright Assist needed: non Test of Mastication and Swallowing of Solids: Zoey ML, Miranda T, Juan Luis L, Hal M, Mike P, Fabiana M, Trista E, Sabi I, Campos D, Rad U, van franck Charles L, Arben O. The Test of Masticating and Swallowing Solids (TOMASS): reliability, validity and international normative data. Int J Lang Commun Disord. 2018 Oct;53(1):144-156. doi: 10.1111/4959-7340.97678. Epub 2016May 03. PMID: [id number]. Sex: F Age: 75 Discrete bites of Saltine: 3 Total time to consume: 41s Comparison with age/sex normed data: within mean bites than mean for age/sex (2-3 discrete bites per cracker). Faster time to consume relative to mean for age/sex (31-43 seconds). Consistency Signs of Aspiration Additional Observations Thins via straw none No s/sx difficulty or distress. Electronically Signed: Louise Jaramillo CCC-[facility]IR 05/18/2021 Russell Cross LCSW - 05/18/2021 12:16 PM PDT SOCIAL WORK: PROGRESS NOTE Data: EMR reviewed. Pt is on day 32 for Problem List Items Addressed This Visit Musculoskeletal * (Principal) Pressure injury of skin of right calf Relevant Orders MISC. TEST - (Completed) Culture, Deep Abscess Aerobic&Anaerobic w/gram stain (Completed) Other Visit Diagnoses Acute renal failure, unspecified acute renal failure type (CMS/HCC) - Primary Relevant Orders Ambulatory Referral to Cardiac Rehabilitation Hyperkalemia Sepsis due to skin infection (CMS/HCC) Acute anemia Occult blood in stools Acute cystitis without hematuria Per discussion with provider, discharge needs include HH. Social Work consults to coordinate these services have been ordered by physician at this time. Pt has been declined from all SNFs, plan is now to go home with . PRECIPITATOR OPERATOR placed a call to Sheyla at [facility] to see if they are able to service pt in [facility], PRECIPITATOR OPERATOR left a v/m requesting a call back. ADDENDUM: PRECIPITATOR OPERATOR was informed [facility] is not able to go to [facility] for service. Barriers to Discharge Include: agency that services [facility] Assessment: Not able to assess at this time. Plan: Anticipate patient to discharge to home with . PRECIPITATOR OPERATOR will continue to follow pt's clinical course. LYLE GoldsteinW Nikko Hankins MD - 05/18/2021 11:04 AM PDT CARDIOLOGY follow Up Note Patient Name: Shirin Aguillon Date of : 1945 Date of Admission: 04/15/2021 Date of Service: 05/18/2021 INTERVAL HISTORY: Patient underwent catheter yesterday and had ANDREA placed to her proximal LAD. Denies any chest pain at this time. She continues to feel tired. Patient Active Problem List Diagnosis ??? Seronegative rheumatoid arthritis of multiple sites (CMS/HCC) ??? Osteoarthropathy ??? Type II diabetes mellitus with complication (CMS/HCC) ??? Renal insufficiency ??? Grief ??? Psoriatic arthritis (CMS/HCC) ??? Abdominal pain ??? Functional diarrhea ??? Nausea and vomiting ??? Excessive body weight loss ??? Pressure injury of skin of right calf ??? Unstable angina (CMS/HCC) Current Medications: Scheduled Meds:[Held by provider] apixaban, 5 mg, oral, BID (RT) aspirin, 81 mg, oral, Daily atorvastatin, 40 mg, oral, Nightly carvediloL, 6.25 mg, oral, BID with meals clopidogreL, 600 mg, oral, Once And clopidogreL, 75 mg, oral, Daily diltiazem CD, 240 mg, oral, Daily insulin glargine, 6 Units, subcutaneous, Nightly insulin lispro, 0-5 Units, subcutaneous, Nightly insulin lispro, 0-6 Units, subcutaneous, TID with meals lactobacillus rhamnosus GG, 1 capsule, oral, Daily levOCARNitine, 500 mg, oral, Daily with dinner levothyroxine, 75 mcg, oral, q AM AC magnesium chloride, 1 tablet, oral, Daily with breakfast miconazole, , Topical, BID pantoprazole, 40 mg, oral, q AM AC predniSONE, 5 mg, oral, Daily senna, 1 tablet, oral, BID sertraline, 25 mg, oral, Nightly sulfaSALAzine, 1,000 mg, oral, BID Continuous Infusions: PRN Meds:??? acetaminophen ??? atropine ??? calcium carbonate ??? dextrose 50% (D50W) ??? diazePAM ??? diphenhydrAMINE ??? flumazeniL ??? HYDROcodone-acetaminophen ??? HYDROmorphone ??? lidocaine ??? Insert peripheral IV AND lidocaine AND Maintain IV access AND Saline lock IV AND sodium chloride ??? Insert peripheral IV AND lidocaine AND Maintain IV access AND Saline lock IV AND sodium chloride ??? Insert peripheral IV AND lidocaine AND Maintain IV access AND Saline lock IV AND sodium chloride ??? Insert peripheral IV AND lidocaine AND Maintain IV access AND Saline lock IV AND sodium chloride ??? naloxone ??? naloxone ??? nitroglycerin ??? ondansetron ??? ondansetron ??? ondansetron ODT ??? promethazine ??? [COMPLETED] Prepare/Crossmatch RBC: 1 Units AND [COMPLETED] Transfuse RBC: 1 Units AND [COMPLETED] Nursing communication: Ensure provider has obtained Informed Consent for Blood Transfusion AND Vital Signs AND sodium chloride AND [COMPLETED] Nursing Communication: Transfusion Reaction Management ??? sodium chloride Review of Systems: All other systems are reviewed and negative to the best of the patient's ability. PHYSICAL EXAMINATION: Vital Signs (as of 0600): Temp: [36.4 ??C (97.5 ??F)-36.8 ??C (98.2 ??F)] 36.5 ??C (97.7 ??F) Heart Rate: [82-100] 91 Resp: [9-20] 18 BP: (125-179)/(63-97) 144/83 Oxygen: SpO2: 97 % on liters via No intake/output data recorded. I/O???s (24 hours): No intake or output data in the 24 hours ending 05/18/21 1105 Admission Weight: Weight: 72.6 kg Current weight: Weight: 73.3 kg Physical Exam: General appearance: No apparent distress, well-nourished, pleasant, cooperative HEET: Normocephalic atraumatic, no scleral icterus, tongue midline, mucous membranes moist Neck: supple Cardiovascular: RRR, normal S1 and normal S2, no murmurs/ rubs/gallops, PMI nondisplaced, no JVD, noperipheral edema Respiratory: Good aeration, CTAB Abdomen: Soft, nontender, nondistended, + bowel sounds Neuro: Alert, no facial droop, tongue midline, no gross motor deficits Psych: appropriate affect Skin: no rashes on face, neck, and lower extremities STUDIES: Echo 2020 1) Normal left ventricular size and systolic f unction (EF 55-60%). Subtle mid anterior and mid anterolateral wall hypokinesis present. Septal bounce present. 3) Compared to the Echo done 04/23/2021, no significant change when compared visually. ?? Results from last 7 days Lab Units 05/18/21 0620 05/17/21 0539 05/17/21 0538 05/16/21 1119 05/16/21 0222 05/15/21 1723 05/15/21 1632 05/15/21 1229 05/15/21 0856 05/15/21 0856 05/13/21 0809 05/13/21 0809 WBC AUTO x10e3/uL 7.9 6.4 -- -- 6.9 < > -- -- -- 6.5 < > 6.4 HEMOGLOBIN g/dL 8.4* 9.8* -- -- 9.2* < > -- -- -- 9.9* < > 9.3* HEMATOCRIT % 28.4* 33.9* -- -- 30.5* < > -- -- -- 32.9* < > 30.9* PLATELETS AUTO x10e3/uL 287 252 -- -- 236 < > -- -- -- 246 < > 222 SODIUM mmol/L 131* -- 135 130* -- -- -- -- < > 135 < > 134 POTASSIUM mmol/L 4.7 -- 4.5 4.6 -- -- -- -- < > 4.1 < > 4.3 CHLORIDE mmol/L 100 -- 101 97 -- -- -- -- < > 100 < > 99 CO2 mmol/L 24 -- 27 22 -- -- -- -- < > 26 < > 26 BUN mg/dL 17.0 -- 12.0 13.0 -- -- -- -- < > 13.0 < > 12.0 CREATININE mg/dL 1.57* -- 1.58* 1.46* -- -- -- -- < > 1.46* < > 1.34* GLUCOSE mg/dL 308* -- 168* 147* -- -- -- -- < > 121* < > 117* MAGNESIUM mg/dL 1.6 -- -- -- -- -- -- -- -- 2.0 -- 1.8 TROPONINT ug/L -- -- -- 0.077* -- -- 0.077* 0.077* -- -- -- -- CKTOTAL U/L -- -- -- 21 -- -- -- 18* -- -- -- -- CKMB ng/mL -- -- -- 1.7 -- -- -- 1.8 -- -- -- -- < > = values in this interval not displayed. Cath 05/17/2021: ANDREA to proximal LAD Limited Echo 05/16/2021: 1) Normal left ventricular size and systolic f unction (EF 55-60%). 2) Subtle mid anterior and mid anterolateral wall hypokinesis present. Septal bounce present. 3) Compared to the Echo done 04/23/2021, no significant change when compared visually. Tele: no events IMPRESSION AND RECOMMENDATIONS: 75 y.o. year old female who is now on Hospital Day: 34 after being admitted for altered mental status, sepsis and renal Failure. She has a history of HLD, HTN, PAF. # NSTEMI s/p ANDREA to proximal LAD 05/17/2021. No recurrent angina. Plan: - Continue aspirin 81 mg daily - Continue clopidogrel 75mg daily - Continue atorvastatin 40 mg nightly - Continue diltiazem CD 240 daily # NSVT: noted on telemetry 05/16/2021. No symptoms. No recurence. - Diltiazem as above - Continue to monitor Thank you for the interesting consultation. Cardiology will sign off at this time. Patient should see cardiology in 2-4 weeks of getting discharged. Code Status:Full Code 05/18/2021 11:05 AM Ricardo Rosa DO - 05/18/2021 8:30 AM PDT [facility] Progress Note Inpatient Primary Care [facility] Patient Name: Shirin Aguillon Date of : 1945 Age: 75 y.o. Code Status: Full Code Primary Care Physician: Rogelio Braga MD Admitting Provider: Ana Maria Narvaez MD Attending Provider: Iron Lowry DO Admit Date: 04/15/2021 Date of Service: 05/18/2021 Hospital Day: 32 Assessment and Plan Shirin Aguillon is a 75 y.o. female anticoagulated with Eliquis??with a hx notable for type II diabetes mellitus, hypertension, hyperlipidemia, CKD, and rheumatoid arthritis??who presents to the ED??for evaluation of altered mental status and found to be in CAMILLE with hyperkalemia. Patient was treatedwith temporary hemodialysis and course of antibiotics for sepsis. Currently being treated for failure to thrive and deconditioning, autoimmune disease, bilateral lower extremity wounds and unstable angina. Discharge planning: - Working with for LTC placement options - multiple SNF denials thus far - Pt lives on [facility] with family support. Working with for possible home with HH option that can service the pt's home. This option is unideal however pt and family are agreeable - Pending below acute medical issues workup & treatment Dysphagia, not present on admission, active Reportedly pt has had dysphagia to solids for 'years,' however it worsened acutely recently with significant nausea and indigestion. Per records pt has had EGD last year 08/18 - Continue PPI & tums - AU PAIR eval - Gastroenterology Dr Fair consulted; plan for EGD on after ~48hrs off apixaban anticoagulation, d/w cardiology Nausea on chronic GERD, not present on admission, active Waxing and waning, amenable to zofran, associated with burning epigastric pain - nausea control prn, treatment of GERD - continue PPI, Tums with meals, upright for meals Hyponatremia, present on admission, waxing and waning Fluctuated as fluid status and renal function changed throughout hospital course. Currently likely secondary to decreased PO intake, fluid shifts, iv contrast - monitor for now, encourage po fluids, treat nausea & dysphagia as above Coronary Artery Disease s/p ANDREA to LAD, present on admission, active EKG 05/15 showed diffuse T-wave inversions which were new, Trial of SL nitroglycerin significantly lowered patient's blood pressure. - Pt received Heparin infusion for about 36hrs until cardiac cath - Cardiology consulted; Cardiac Cath 05/17 resulted in ANDREA to LAD - Continue daily ASA, Plavix Soft tissue ulcerated wounds of bilateral lower extremities, POA. Improving. 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 Patient reports she developed these wounds following an allergic reaction to TMP-SMX. She was followed by Rheumatology for this; previously on Xeljanz, Leflunomide and Sulfasalazine for Crohn's and seronegative RA. Followed by Dr Shepherd. Pt reports another [employer] sales consultant switched her to Prednisone daily however I am not able to view these records - S/p bilateral calf wound debridement per GS, Micro positive for light growth pseudomonas and zenaida albicans - Continue wound care, wound consult team following; appreciate their excellent care and recommendations. Examined 05/07, no evidence of subcutaneous infection. See media tab - treatment of presumed autoimmune etiology and diabetes - conservative pain control. OK for 10mg [place] ~30m prior to wound dressing changes - Needs Outpatient Referral to Gen Surg for wound Biopsy - Pt had biopsy in the past at [facility] per report and records. Will reach out to try to obtain the report or pathology findings Inflammatory bowel disease and rheumatoid arthritis on prednisone therapy, present on admission, active - continue oral Prednisone every day - Previously on Xeljanz, Leflunomide and Sulfasalazine. Reportedly discontinued this recently for prednisone and also discontinued outpatient Cipro for recurrent UTis - Discussed with Dr Shepherd Rheumatology 05/07, pt safe to resume & continue Sulfasalazine for Crohn's. Presumably the ulcers are from IBD however not safe to resume xeljanz and leflunomide due to infection - Recommend F/u with outpt rheumatology outpt for mgmt Depression, not present on admission, active Unclear if this is acute on chronic, may be related to adjustment disorder due to prolonged hospitalization and difficulty with placement, separation from family, decreased functional status and need for increased care. Differential includes bipolar depression, major depression - Continue sertraline, levocarnitine (give with food) - Recommend trial outpt N-acetylcysteine 500mg bid adjunct supplement for depression Weakness, Fatigue & Deconditioning, POA, improving - Functional status prior to admission:??Ambulates with a walker, stair chair at home, few stairs onher own. - Continue Physical therapy; recommending rehabilitation - SNF vs , disposition planning. Encourage pt to strengthen. Up in chair for meals, ambulate TID Chronic kidney disease III, present on admission, stable Baseline Cr around 1.2-1.3 during this admission, previous baseline around 1.1 prior. Likely she is at a stable baseline - UA / urine protein creatinine ratio exhibited significant nephropathy likely diabetic - Discontinue EMILY due to renal intolerance, d/w Nephro curbside - BUN/Cr did not improve much with supplemental IVF - Advised pt to drink >2.5L fluids daily Constipation, not present on admission, acute on chronic Likely due to low mobility and depressed PO intake, opiates likely contributory pt has diarrhea from Crohns disease at baseline - Begin daily bowel regimen (conservative), no fiber or laxatives due to crohn's disease Cystitis, acute on chronic, present on admission, resolved and now recurred & resolved Previously patient had evidence of Urogenital sepsis on admission, treated with broad spectrum antibiotics and a urine culture did not grow a pathogen. Pt has history of outpt Ciprofloxacin regimen, not currently taking per history and records. 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 - Glargine reduced on 04/27, discontinued on 04/28 - Sliding scale as needed plus lantus, currently well controlled -F/u outpt for monitoring and/or oral medicines with pcp Decreased oral intake, not POA. Likely related to chronic disease (inflammatory), GERD and decreased appetite from acute illness - Encourage food and fluid, no advance feeding interventions ?? Cardiac Focal wall motion abnormality, present on admission, resolved Echo 04/21 exhibited area of wall motion abnormality, EF 50% (WNL). Seen by cardiology, recommended optimal medical management with outpt f/u - Continue Betablocker, statin, EMILY, apixaban - Repeat Echo 05/15 exhibited subtle WMA & improvement in EF ?? Atrial fibrillation with rapid ventrilcular response ,??present on admission, chronic. RVR has Resolved. [id number] score of at least 4. No Afib notable on most recent Peggy patch outpatient -Continue her ambulatory diltiazem XR 240 mg and Apixaban Hypokalemia with Hypomagnesemia, not present on admission. Resolved. - Replete both electrolytes as needed. Likely secondary to diarrheal losses. Chronic anemia,??present on admission, stable.?? Iron profile is compatible with anemia of chronic disease. Recommend Outpatient colonoscopy Hypothyroidism, poa, chronic. Resumed Levothyroxine po 05/13 Respiratory distress, present on admission. Resolved. Metabolic acidosis with respiratory partial compensation, not present on admission. Resolved. CAMILLE, acute, present on admission. Resolved. Diarrhea, not present on admission, Resolved. Partly due to Crohn's Sepsis, acute, present on admission. Resolved. Body jerking,??present on admission. Resolved. VTE Prophylaxis: Apixaban Code Status: Full code Disposition: Waiting for SNF vs approval. Current Hospital Medications Allergies Allergies Allergen Reactions ??? Bactrim [Sulfamethoxazole-Trimethoprim] Swelling ??? Betadine [Povidone-Iodine] ??? Fish Derived ??? Iodine ??? Other [place] products ??? Shellfish Containing Products Medications Scheduled [START ON 05/19/2021] apixaban, 5 mg, oral, BID aspirin, 81 mg, oral, Daily atorvastatin, 40 mg, oral, Nightly carvediloL, 6.25 mg, oral, BID with meals clopidogreL, 600 mg, oral, Once And clopidogreL, 75 mg, oral, Daily diltiazem CD, 240 mg, oral, Daily insulin glargine, 6 Units, subcutaneous, Nightly insulin lispro, 0-5 Units, subcutaneous, Nightly insulin lispro, 0-6 Units, subcutaneous, TID with meals lactobacillus rhamnosus GG, 1 capsule, oral, Daily levOCARNitine, 500 mg, oral, Daily with dinner levothyroxine, 75 mcg, oral, q AM AC magnesium chloride, 1 tablet, oral, Daily with breakfast miconazole, , Topical, BID pantoprazole, 40 mg, oral, q AM AC predniSONE, 5 mg, oral, Daily senna, 1 tablet, oral, BID sertraline, 25 mg, oral, Nightly sulfaSALAzine, 1,000 mg, oral, BID As needed ??? acetaminophen ??? atropine ??? calcium carbonate ??? dextrose 50% (D50W) ??? diazePAM ??? diphenhydrAMINE ??? flumazeniL ??? HYDROcodone-acetaminophen ??? HYDROmorphone ??? lidocaine ??? Insert peripheral IV AND lidocaine AND Maintain IV access AND Saline lock IV AND sodium chloride ??? Insert peripheral IV AND lidocaine AND Maintain IV access AND Saline lock IV AND sodium chloride ??? Insert peripheral IV AND lidocaine AND Maintain IV access AND Saline lock IV AND sodium chloride ??? Insert peripheral IV AND lidocaine AND Maintain IV access AND Saline lock IV AND sodium chloride ??? naloxone ??? naloxone ??? nitroglycerin ??? ondansetron ??? ondansetron ??? ondansetron ODT ??? promethazine ??? [COMPLETED] Prepare/Crossmatch RBC: 1 Units AND [COMPLETED] Transfuse RBC: 1 Units AND [COMPLETED] Nursing communication: Ensure provider has obtained Informed Consent for Blood Transfusion AND Vital Signs AND sodium chloride AND [COMPLETED] Nursing Communication: Transfusion Reaction Management ??? sodium chloride Infusions Subjective Patient's Update Patient feeling unwell, nauseous. Describes dysphagia to solids which was chronic but acutely worsened No chest pain. Pt recounted she had biopsies done at [facility] for her leg wounds Family and son present today, updated them on recent medical issues and care plan Interval Update No overnight events Objective BP 130/63 (BP Location: Right arm, Patient Position: Semi-Mims's) Pulse 95 Temp 36.8 ??C (98.2 ??F) (Oral) Resp 20 Ht 1.524 m Wt 73.3 kg SpO2 98% BMI 31.56 kg/m?? No intake or output data in the 24 hours ending 05/18/21 0830 Physical Exam Vitals and nursing note reviewed. Constitutional: General: She is not in acute distress. Appearance: She is obese. She is ill-appearing (chronically). HENT: Head: Normocephalic. Comments: Temporal wasting notable Hair loss alopecia notable Eyes: Extraocular Movements: Extraocular movements intact. Cardiovascular: Rate and Rhythm: Normal rate and regular rhythm. Pulses: Normal pulses. Heart sounds: No murmur heard. Pulmonary: Effort: Pulmonary effort is normal. No respiratory distress. Breath sounds: Normal breath sounds. No wheezing, rhonchi or rales. Abdominal: General: Abdomen is flat. There is no distension. Tenderness: There is no guarding. Musculoskeletal: General: Tenderness (to bilateral lower exremities) present. Normal range of motion. Skin: General: Skin is warm and dry. Coloration: Skin is pale. Skin is not jaundiced. Findings: Bruising present. Comments: Thin and fragile skin Neurological: Mental Status: She is alert. Mental status is at baseline. Motor: Weakness present. Psychiatric: Attention and Perception: Attention normal. Mood and Affect: Mood is anxious and depressed. Speech: Speech normal. Comments: Flat affect Labs and ECG Hematology Results from last 7 days Lab Units 05/18/21 0620 05/17/21 0539 05/16/21 0222 WBC AUTO x10e3/uL 7.9 6.4 6.9 HEMOGLOBIN g/dL 8.4* 9.8* 9.2* HEMATOCRIT % 28.4* 33.9* 30.5* MCV fL 85 84 84 PLATELETS AUTO x10e3/uL 287 252 236 Chemistries Results from last 7 days Lab Units 05/18/21 0620 05/17/21 0538 05/16/21 1119 05/15/21 0856 05/15/21 0856 05/13/21 0809 05/13/21 0809 SODIUM mmol/L 131* 135 130* < > 135 < > 134 POTASSIUM mmol/L 4.7 4.5 4.6 < > 4.1 < > 4.3 CHLORIDE mmol/L 100 101 97 < > 100 < > 99 CO2 mmol/L 24 27 22 < > 26 < > 26 BUN mg/dL 17.0 12.0 13.0 < > 13.0 < > 12.0 CREATININE mg/dL 1.57* 1.58* 1.46* < > 1.46* < > 1.34* GLUCOSE mg/dL 308* 168* 147* < > 121* < > 117* CALCIUM, SERUM mg/dL 8.6 8.8 8.4* < > 8.9 < > 8.5 MAGNESIUM mg/dL 1.6 -- -- -- 2.0 -- 1.8 < > = values in this interval not displayed. Estimated Creatinine Clearance: 28.5 mL/min (A) (by C-G formula based on SCr of 1.57 mg/dL (H)). Urinalysis Microbiology Urine culture Apollo Alvei 05/05 and 05/07 Diagnostic Imaging Imaging results: XR CHEST 1 VIEW IMPRESSION: Dobbhoff tube tip is in the region of distal stomach lumen below the right hemidiaphragm. No free air under the diaphragm. Mild pulmonary vascular congestion. No gross pneumothorax. Reviewed by: Jacinto Rodriguez M.D. on 04/23/2021 at 16:54 ECHOCARDIOGRAM COMPLETE Version: 1 Study ID: [id number] ?? [address] [address] Phone: ADULT ECHOCARDIOGRAM ?? Name: SHIRIN AGUILLON Study Date: 04/23/2021, 7: 55 AM : 1945 BP: 147 / 80 mmHg Gender: Female Height: 60 in Age: 75 Years Weight: 187.393 lb Pt. Location: [facility]^2008^2008-10 BSA: 1.82 m? Ordering: JORDAN RAMSEY Referring: Leon Hospitalist Clinician: Carli Vasquez Reason For Study: Dyspnea History: Summary Statements This is a technically difficult study characterized by limited endocardial visualization. Next time recommend Definity echocontrast if possible. Normal sinus rhythm with occasional PAC's. Normal LV size and wall thickness. There is subtle mid-anterior hypokinesis, but normal wall motion otherwise. EF is 50-55%. Stage II diastolic dysfunction. Normal chamber sizes. Aortic sclerosis without stenosis. Otherwise no valvular abnormalities. Compared to prior study 09/2019, focal wall motion abnormality involving mid-anterior segment is newly described Electronically signed by: Lucinda Bahena M.D. 04/23/2021, 3: 19 PM Results for orders placed during the hospital encounter of 04/15/21 ECHOCARDIOGRAM LIMITED Narrative [facility] +---------+ : : [address] : : : : [place], : : : : [place] [address] : : : : Phone: [phone] Echocardiogram Report + + :Name: SHIRIN AGUILLON Study Date: 05/16/2021 Height: 60 in : :[facility] ReadingLocation: Weight: 168 lb : : Gender: Female BSA: 1.7 m2 : :: 1945 Age: 75 yrs BP: 135/83 mmHg: :Reason For Study: Assess LV wall motion and EF : :Ordering Physician: MARY, : :NIKKO Performed By: Veronica Raphael : :Referring: ETIENNE TEAM : + + Interpretation Summary Limited Echo: 1) Normal left ventricular size and systolic f unction (EF 55-60%). 2) Subtle mid anterior and mid anterolateral wall hypokinesis present. Septal bounce present. 3) Compared to the Echo done 04/23/2021, no significant change when compared visually. Procedure: A two-dimensional transthoracic echocardiogram with color flow and Doppler was performed in limited views only to assess Assess LV wall motion, EF. The study quality was technically adequate. Comparison is made with the echocardiogram of 04/23/2021. The patient was in normal sinus rhythm during the exam. Left Ventricle: The left ventricle is normal in size and wall thickness. A false chord is noted (normal variant). The ejection fraction is estimated to be 55-60%. Subtle mid anterior and mid anterolateral wall hypokinesis present. Septal bounce present. Tricuspid Valve: The tricuspid valve is normal in structure and function. There is a trace or physiologic amount of tricuspid regurgitation. Pulmonary artery pressures cannot be estimated because of the lack of a measurable TR jet velocity but the IVC suggests a CVP of around 3 mmHg. Great Vessels: The IVC is of normal diameter and collapses greater than 50% with a sniff. This suggests a low right atrial pressure of 3 mm Hg. Pericardium/ Pleura There is no pericardial effusion. There is an anterior echo-free space consistent with a fat pad. MMode/2D Measurements & Calculations LVIDd: 4.1 cm IVC diam: 1.6 cm LVIDs: 2.6 cm IVSd: 0.77 cm LVPWd: 0.51 cm LV bai. diameter/BSA (cm/m^2): 2.4 LV sys. diameter/BSA (cm/m^2): 1.5 FS: 35.7 % Reading Physician:10:39 AM Results for orders placed during the hospital encounter of 04/15/21 SI STENT ANDREA - CORONARY Narrative PROCEDURE PERFORMED: 1. Percutaneous intervention on the left anterior descending. 2. Supervision for moderate sedation. PROCEDURAL DETAILS: Please refer to the procedure log for complete details. Briefly, Dr. Tan did the diagnostic angiogram. I was asked to do an intervention. The patient was given moderate sedation with IV versed and fentanyl by a dedicated nurse under my [id number] supervision using physiological monitoring for the duration of the procedure. INTERVENTIONAL DETAILS: Using a Voda 3.0 guide and a Runthrough wire, we were able to balloon dilate this proximal LAD lesion which was around 80-90%. It was then stented with a 3.5 x 15 mm Xience drug coated stent delivered at 14 atmospheres with excellent angiographic results. Dual antiplatelet therapy per guidelines. Total contrast used 15 cc. Electronically signed by: Ricardo Griffin DO 05/18/2021 at 8:30 AM Portions of today's documentation have been created with the assistance of voice recognition software. Therefore, it may contain anomalous punctuation, anomalous independent misrecognitions, word substitutions, insertions or omissions. Occasional wrong-word or phonetically similar substitutions may also occur, all due to the inherent limitations of voice recognition software. Attempts to correct the above have been made by Ricardo Griffin DO but it is recommended that the chart be read carefully to recognize, using context, where the substitutions may have occurred. Associated attestation - Iron Lowry DO - 05/18/2021 7:19 PM PDT I saw and evaluated the patient, participating in the villarreal portions of the service. I reviewed the resident???s note. I agree with the resident???s findings and plan. S/p ANDREA to LAD 05/17/2021. Hold apixaban due to hematoma and in preparation for EGD on 05/19/2021.Summer Sanchez DPT - 05/17/2021 4:07 PM PDT On PT attempt this pm, pt off floor for procedure and on bedrest post procedure. Will follow up as appropriate. RAMILA FarleyT Nishi Santos RD - 05/17/2021 2:08 PM PDT NUTRITION FOLLOW UP: ASSESS: 75 yo F admitted for sepsis and CAMILLE with hyperkalemia. Urine output improved, dialysis beingheld per notes. Pt s/p debridement of bilateral calf wound 04/18. Pt had a prolonged NPO status so Dobhoff was placed 04/22, TF was tolerated at goal. Pt pulled out NGT 04/25, tube feeds off. Diet advanced per ST 04/26. PO 25-75% x 2-3 days, noted improvement with family at bedside; diet remains mechanical soft thin liquids. Per RN pt remains A&Ox1-2 with delayed responses, mild improvement in po intake. MD notes indicate no advance feeding interventions with decreased oral intake (04/30). Per SW notes pt likely to discharge to SNF soon, wound care consulted and has been seen before by wound (see previous notes). New onset chest pain, plan for cardiac cath. RD Spoke with pt 05/07 afternoon, states that she cannot have Ensure because she is allergic to it. She also reported that she does not like the Sami-D/C'D. Awaiting SNF acceptance. Per care staff notes, pt eats well when family present, ~25-66%. PMHX: Arthritis, T2DM, PNA, HLD, HTN, kidney disease, UTI LABS: reviewed. Cr 1.58, Glu 168. MEDS: Insulin, colace, magnesium chloride, senna, lactobacillus, others reviewed. GI: BM 05/17 SKIN: ulcer on R& L calf, stg 2 PI on coccyx CURRENT WT: 76.1 kg ( bed scale); BMI 33.37 kg/m2, IBW: 45.5 kg, admit wt: 72.4kg DIET: NPO. Prev: General thin liq 1:1 assist; PO 25-75% SHELLFISH ALLERGY ESTIMATED NEEDS: CAMILLE, BMI, wounds Calories: 5117-5517 kcal/day (20-25 kcal/kg BW) Protein: 55-70 g/day (1.0-1.2 g/kg IBW) Fluids: 2125-2550ml/day (25-30 ml/kg) NUTRITION DIAGNOSIS: 1) Inadequate oral intake related to decreased ability to consume sufficient energy as evidenced by current NPO status.--IMPROVING 2) Increased kcal/pro needs related to increased nutrient demand as evidence by pt with multiple pressure injuries. --PERSISTS 3) Chew/swallow difficulty due to AMS as evidenced by modified diet texture per AU PAIR.--IMPROVING NUTRITION INTERVENTION: 1) Continue current diet per speech therapy. Consider tube feeding if in line with pt goals of care d/t increased healing needs and variable to poor po intake. 2) Pt reported that she does not like Sami at all and had two full cups of it on her bedside table.Will cancel Sami order. 3) Diabetes ed completed 05/10. MONITOR/EVALUATE: PO intake, diet tolerance, GI, wounds, labs, POC, nutrition status. Follow per moderate nutrition risk guidelines. Lily Lua PharmD - 05/17/2021 12:56 PM PDT Heparin Infusion per Pharmacy Management: Indication: ACS Dosing Wt: 75 kg Patient is on therapeutic hypothermia: No Date 05/15 05/15 05/16 05/16 05/16 05/17 05/17 05/17 Lab Time 1700 0008 0222 1036 1807 0111 0840 1231 aPTT ---- >150 91.9 112.5 117.6 83.6 62.8 Bolus (units) ---- 2000 Infusion Rate (units/kg/hr) 12 Hold 1 hour 9 8 6.5 6.5 8.5 Checked into mobile lab technician CBC review 9.9/32.9/246 9.2/30.5 Plt 236 9.8/ 33.9 252 Other anticoagulation: Apixaban last given @ 1014 today (05/15/21) Date Note 05/15 No heparin bolus consider last dose of apixaban given < 12 hours ago 05/16 Held for approx 1 hour restarting heparin at 9u/kg/hr while waiting for aptt result 05/16 Reducing rate to 8 units/kg/hr check aPTT in 6 hrs, called RN at 1150 with rate change, check next aPTT 6 hours. 05/17 Patient finishing IV contrast prophylaxis (last dose of prednisone due at 1230 today) prior to going to mobile lab technician (timing currently not scheduled). 7/19 Now checked into mobile lab technician. Will ask RN to notify pharmacy if heparin drip is restarted after procedure. Lily Lua PharmD - 05/17/2021 10:01 AM PDT Heparin Infusion per Pharmacy Management: Indication: ACS Dosing Wt: 75 kg Patient is on therapeutic hypothermia: No Date 05/15 05/15 05/16 05/16 05/16 05/17 05/17 05/17 Lab Time 1700 0008 0222 1036 1807 0111 0840 1600 aPTT ---- >150 91.9 112.5 117.6 83.6 62.8 Bolus (units) ---- 2000 Infusion Rate (units/kg/hr) 12 Hold 1 hour 9 8 6.5 6.5 8.5 CBC review 9.9/32.9/246 9.2/30.5 Plt 236 Other anticoagulation: Apixaban last given @ 1014 today (05/15/21) Date Note 05/15 No heparin bolus consider last dose of apixaban given < 12 hours ago 05/16 Held for approx 1 hour restarting heparin at 9u/kg/hr while waiting for aptt result 05/16 Reducing rate to 8 units/kg/hr check aPTT in 6 hrs, called RN at 1150 with rate change, check next aPTT 6 hours. Ricardo Rosa DO - 05/17/2021 8:28 AM PDT [facility] Progress Note Inpatient Primary Care [facility] Patient Name: Shirin Agiullon Date of : 1945 Age: 75 y.o. Code Status: Full Code Primary Care Physician: Rogelio Braga MD Admitting Provider: Ana Maria Narvaez MD Attending Provider: Iron Lowry DO Admit Date: 04/15/2021 Date of Service: 05/17/2021 Hospital Day: 31 Assessment and Plan Shirin Aguillon is a 75 y.o. female anticoagulated with Eliquis??with a hx notable for type II diabetes mellitus, hypertension, hyperlipidemia, CKD, and rheumatoid arthritis??who presents to the ED??for evaluation of altered mental status and found to be in CAMILLE with hyperkalemia. Patient was treatedwith temporary hemodialysis and course of antibiotics for sepsis. Currently being treated for failure to thrive and deconditioning, autoimmune disease, bilateral lower extremity wounds and unstable angina. Unstable angina, not present on admission, active - EKG showed diffuse T-wave inversions which are new - Trial of SL nitroglycerin significantly lowered patient's blood pressure. - Troponin 0.077 x2, CK/CKMB reassuring - Heparin infusion 48 hrs - Cardiology consulted; Cardiac Cath 05/17. ANDREA to LAD, continue daily plavix, resume apixaban post cath Discharge planning: - Working with SW for LTC placement options - multiple SNF denials thus far - Pt lives on [facility] with family support. Working with HH for possible home with HH option that can service the pt's home. This option is unideal however pt is agreeable Soft tissue ulcerated wounds of bilateral lower extremities, POA. Improving. 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 Patient reports she developed these wounds following an allergic reaction to TMP-SMX. She was followed by Rheumatology for this; previously on Xeljanz, Leflunomide and Sulfasalazine for Crohn's and seronegative RA. Followed by Dr Shepherd. Pt reports another [employer] sales consultant switched her to Prednisone daily however I am not able to view these records - S/p bilateral calf wound debridement per GS, Micro positive for light growth pseudomonas and zenaida albicans - Continue wound care, wound consult team following; appreciate their excellent care and recommendations. Examined 05/07, no evidence of subcutaneous infection. See media tab - treatment of presumed autoimmune etiology and diabetes - conservative pain control. OK for 10mg [place] ~30m prior to wound dressing changes - Needs Outpatient Referral to Gen Surg for wound Biopsy Inflammatory bowel disease and rheumatoid arthritis on prednisone therapy, present on admission, active - continue oral Prednisone every day - Previously on Xeljanz, Leflunomide and Sulfasalazine. Reportedly discontinued this recently for prednisone and also discontinued outpatient Cipro for recurrent UTis - Discussed with Dr Shepherd Rheumatology 05/07, pt safe to resume & continue Sulfasalazine for Crohn's. Presumably the ulcers are from IBD however not safe to resume xeljanz and leflunomide due to infection - Recommend F/u with outpt rheumatology outpt for mgmt Depression, not present on admission, active Unclear if this is acute on chronic, may be related to adjustment disorder due to prolonged hospitalization and difficulty with placement, separation from family, decreased functional status and need for increased care. Differential includes bipolar depression, major depression - Continue sertraline, levocarnitine (give with food) - Recommend trial outpt N-acetylcysteine 500mg bid adjunct supplement for depression Weakness, Fatigue & Deconditioning, POA, improving - Functional status prior to admission:??Ambulates with a walker, stair chair at home, few stairs onher own. - Continue Physical therapy; recommending rehabilitation - SNF vs , disposition planning. Encourage pt to strengthen. Up in chair for meals, ambulate TID Chronic kidney disease III, present on admission, stable Baseline Cr around 1.2-1.3 during this admission, previous baseline around 1.1 prior. Likely she is at a stable baseline - UA / urine protein creatinine ratio exhibited significant nephropathy likely diabetic - Discontinue EMILY due to renal intolerance, d/w Nephro curbside - BUN/Cr did not improve much with supplemental IVF - Advised pt to drink >2.5L fluids daily Constipation, not present on admission, acute on chronic Likely due to low mobility and depressed PO intake, opiates likely contributory pt has diarrhea from Crohns disease at baseline - Begin daily bowel regimen (conservative), no fiber or laxatives due to crohn's disease Cystitis, acute on chronic, present on admission, resolved and now recurred & resolved Previously patient had evidence of Urogenital sepsis on admission, treated with broad spectrum antibiotics and a urine culture did not grow a pathogen. Pt has history of outpt Ciprofloxacin regimen, not currently taking per history and records. 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 -Glargine reduced on 04/27, discontinued on 04/28 -Sliding scale as needed plus lantus -F/u outpt for monitoring and/or oral medicines with pcp Decreased oral intake, not POA. Likely related to chronic disease (inflammatory) and decreased appetite from acute illness - Encourage food and fluid - No advance feeding interventions ?? Cardiac Focal wall motion abnormality, present on admission, resolved Echo 04/21 exhibited area of wall motion abnormality, EF 50% (WNL). Seen by cardiology, recommended optimal medical management with outpt f/u - Continue Betablocker, statin, EMILY, apixaban - Repeat Echo 05/15 exhibited subtle WMA & improvement in EF ?? Atrial fibrillation with rapid ventrilcular response ,??present on admission, chronic. RVR has Resolved. [id number] score of at least 4. No Afib notable on most recent Peggy patch outpatient -Continue her ambulatory diltiazem XR 240 mg and Apixaban Hypokalemia with Hypomagnesemia, not present on admission. Resolved. - Replete both electrolytes as needed. Likely secondary to diarrheal losses. Chronic anemia,??present on admission, stable.?? Iron profile is compatible with anemia of chronic disease. Recommend Outpatient colonoscopy Hypothyroidism, poa, chronic. Resumed Levothyroxine po 05/13 Respiratory distress, present on admission. Resolved. Metabolic acidosis with respiratory partial compensation, not present on admission. Resolved. CAMILLE, acute, present on admission. Resolved. Diarrhea, not present on admission, Resolved. Partly due to Crohn's Sepsis, acute, present on admission. Resolved. Body jerking,??present on admission. Resolved. VTE Prophylaxis: Apixaban Code Status: Full code Disposition: Waiting for SNF vs approval. Current Hospital Medications Allergies Allergies Allergen Reactions ??? Bactrim [Sulfamethoxazole-Trimethoprim] Swelling ??? Betadine [Povidone-Iodine] ??? Fish Derived ??? Iodine ??? Other [place] products ??? Shellfish Containing Products Medications Scheduled aspirin, 81 mg, oral, Daily atorvastatin, 40 mg, oral, Nightly carvediloL, 6.25 mg, oral, BID with meals diltiazem CD, 240 mg, oral, Daily predniSONE, 50 mg, oral, Once Followed by diphenhydrAMINE, 50 mg, oral, Once insulin glargine, 6 Units, subcutaneous, Nightly insulin lispro, 0-5 Units, subcutaneous, Nightly insulin lispro, 0-6 Units, subcutaneous, TID with meals lactobacillus rhamnosus GG, 1 capsule, oral, Daily levOCARNitine, 500 mg, oral, Daily with dinner levothyroxine, 75 mcg, oral, q AM AC magnesium chloride, 1 tablet, oral, Daily with breakfast miconazole, , Topical, BID pantoprazole, 40 mg, oral, q AM AC predniSONE, 5 mg, oral, Daily senna, 1 tablet, oral, BID sertraline, 25 mg, oral, Nightly sulfaSALAzine, 1,000 mg, oral, BID As needed ??? acetaminophen ??? calcium carbonate ??? dextrose 50% (D50W) ??? diazePAM ??? diphenhydrAMINE ??? heparin ??? HYDROcodone-acetaminophen ??? HYDROmorphone ??? lidocaine ??? Insert peripheral IV AND lidocaine AND Maintain IV access AND Saline lock IV AND sodium chloride ??? Insert peripheral IV AND lidocaine AND Maintain IV access AND Saline lock IV AND sodium chloride ??? Insert peripheral IV AND lidocaine AND Maintain IV access AND Saline lock IV AND sodium chloride ??? naloxone ??? nitroglycerin ??? ondansetron ??? ondansetron ??? ondansetron ODT ??? promethazine ??? [COMPLETED] Prepare/Crossmatch RBC: 1 Units AND [COMPLETED] Transfuse RBC: 1 Units AND [COMPLETED] Nursing communication: Ensure provider has obtained Informed Consent for Blood Transfusion AND Vital Signs AND sodium chloride AND [COMPLETED] Nursing Communication: Transfusion Reaction Management ??? sodium chloride Infusions heparin, 6.5 Units/kg/hr (Order-Specific), Last Rate: 6.5 Units/kg/hr (05/16/21 5015) sodium chloride, 75 mL/hr Subjective Patient's Update Patient feels ok today, no chest pain overnight. Feels fatigued, no abd pain Ready for heart cath Interval Update No overnight events Objective BP (!) 147/81 (BP Location: Left arm, Patient Position: Semi-Mims's) Pulse 84 Temp 36.6 ??C (97.9 ??F) (Oral) Resp 16 Ht 1.524 m Wt 76.1 kg SpO2 96% BMI 32.77 kg/m?? No intake or output data in the 24 hours ending 05/17/21 0828 Physical Exam Vitals and nursing note reviewed. Constitutional: General: She is not in acute distress. Appearance: She is obese. She is ill-appearing (chronically). HENT: Head: Normocephalic. Comments: Temporal wasting notable Hair loss alopecia notable Eyes: Extraocular Movements: Extraocular movements intact. Cardiovascular: Rate and Rhythm: Normal rate and regular rhythm. Pulses: Normal pulses. Heart sounds: No murmur heard. Pulmonary: Effort: Pulmonary effort is normal. No respiratory distress. Breath sounds: Normal breath sounds. No wheezing, rhonchi or rales. Abdominal: General: Abdomen is flat. There is no distension. Tenderness: There is no guarding. Musculoskeletal: General: Tenderness (to bilateral lower exremities) present. Normal range of motion. Skin: General: Skin is warm and dry. Coloration: Skin is pale. Skin is not jaundiced. Findings: Bruising present. Comments: Thin and fragile skin Neurological: Mental Status: She is alert. Mental status is at baseline. Motor: Weakness present. Psychiatric: Attention and Perception: Attention normal. Mood and Affect: Mood is anxious and depressed. Speech: Speech normal. Comments: Flat affect Labs and ECG Hematology Results from last 7 days Lab Units 05/17/21 0539 05/16/21 0222 05/15/21 1723 WBC AUTO x10e3/uL 6.4 6.9 8.3 HEMOGLOBIN g/dL 9.8* 9.2* 9.2* HEMATOCRIT % 33.9* 30.5* 30.2* MCV fL 84 84 83 PLATELETS AUTO x10e3/uL 252 236 240 Chemistries Results from last 7 days Lab Units 05/17/21 0538 05/16/21 1119 05/15/21 0856 05/13/21 0809 05/13/21 0809 05/12/21 0522 05/12/21 0522 05/11/21 0550 05/11/21 0550 SODIUM mmol/L 135 130* 135 < > 134 < > 136 < > 138 POTASSIUM mmol/L 4.5 4.6 4.1 < > 4.3 < > 4.3 < > 4.0 CHLORIDE mmol/L 101 97 100 < > 99 < > 103 < > 103 CO2 mmol/L 27 22 26 < > 26 < > 26 < > 28 BUN mg/dL 12.0 13.0 13.0 < > 12.0 < > 11.0 < > 11.0 CREATININE mg/dL 1.58* 1.46* 1.46* < > 1.34* < > 1.40* < > 1.56* GLUCOSE mg/dL 168* 147* 121* < > 117* < > 129* < > 203* CALCIUM, SERUM mg/dL 8.8 8.4* 8.9 < > 8.5 < > 8.4* < > 8.2* MAGNESIUM mg/dL -- -- 2.0 -- 1.8 -- 1.5* < > 1.7 ALBUMIN g/dL -- -- -- -- -- -- -- -- 2.6* < > = values in this interval not displayed. Estimated Creatinine Clearance: 28.9 mL/min (A) (by C-G formula based on SCr of 1.58 mg/dL (H)). Urinalysis Microbiology Urine culture Hafnia Alvei 05/05 and 05/07 Diagnostic Imaging Imaging results: XR CHEST 1 VIEW [place], [place]. [id number] PATIENT NAME: SHIRIN AGUILLON : 1945 GENDER: F EXAM DATE: 04/23/2021 16:33 ORDERED FROM: [facility] ORDERING PHYSICIAN: JORDAN RAMSEY CC: -- - - - CONTRAST: READING STATION ID: [id number] mGy: PROCEDURE: XR CHEST 1 VIEW INDICATIONS: Dobhoff placement - in place TECHNIQUE: One view of the chest was acquired. COMPARISON: [facility], CR, XR CHEST 1 VIEW, 04/22/2021, 15:54. FINDINGS: Surgical changes and devices: Dobbhoff tube tip is in distal stomach lumen below the right hemidiaphragm. Fusion hardware in lumbar spine is seen. Lungs and pleura: Pulmonary vascular congestion is seen. No significant pleural effusion or gross pneumothorax. Mild pulmonary edema is seen. Mediastinum: Mediastinal contours appear normal. Heart size is enlarged. Bones and chest wall: No suspicious bony lesions. Overlying soft tissues appear unremarkable. IMPRESSION: Dobbhoff tube tip is in the region of distal stomach lumen below the right hemidiaphragm. No free air under the diaphragm. Mild pulmonary vascular congestion. No gross pneumothorax. Reviewed by: Jacinto Rodriguez M.D. on 04/23/2021 at 16:54 Approved by: Jacinto Rodriguez M.D. on 04/23/2021 at 16:57 ECHOCARDIOGRAM COMPLETE Version: 1 Study ID: [id number] ?? [address] [address] Phone: ADULT ECHOCARDIOGRAM ?? Name: SHIRIN AGUILLON Study Date: 04/23/2021, 7: 55 AM : 1945 BP: 147 / 80 mmHg Gender: Female Height: 60 in Age: 75 Years Weight: 187.393 lb Pt. Location: [facility]^2008^2008-10 BSA: 1.82 m? Ordering: JORDAN RAMSEY Referring: Leon Hospitalist Clinician: Carli Vasquez Reason For Study: Dyspnea History: Summary Statements This is a technically difficult study characterized by limited endocardial visualization. Next time recommend Definity echocontrast if possible. Normal sinus rhythm with occasional PAC's. Normal LV size and wall thickness. There is subtle mid-anterior hypokinesis, but normal wall motion otherwise. EF is 50-55%. Stage II diastolic dysfunction. Normal chamber sizes. Aortic sclerosis without stenosis. Otherwise no valvular abnormalities. Compared to prior study 09/2019, focal wall motion abnormality involving mid-anterior segment is newly described Electronically signed by: Lucinda Shruti Bahena M.D. 04/23/2021, 3: 19 PM Results for orders placed during the hospital encounter of 04/15/21 ECHOCARDIOGRAM LIMITED Narrative [facility] + + [facility] +---------+ : : [address] : : : : [place], : : : : [place] [address] : : : : Phone: [phone] Echocardiogram Report + + :Name: SHRIIN AGUILLON Study Date: 05/16/2021 Height: 60 in : :[facility] ReadingLocation: Weight: 168 lb : : Gender: Female BSA: 1.7 m2 : :: 1945 Age: 75 yrs BP: 135/83 mmHg: :Reason For Study: Assess LV wall motion and EF : :Ordering Physician: MARY, : :NIKKO Performed By: Veronica Raphael : :Referring: ETIENNE TEAM : + + Interpretation Summary Limited Echo: 1) Normal left ventricular size and systolic f unction (EF 55-60%). 2) Subtle mid anterior and mid anterolateral wall hypokinesis present. Septal bounce present. 3) Compared to the Echo done 04/23/2021, no significant change when compared visually. Procedure: A two-dimensional transthoracic echocardiogram with color flow and Doppler was performed in limited views only to assess Assess LV wall motion, EF. The study quality was technically adequate. Comparison is made with the echocardiogram of 04/23/2021. The patient was in normal sinus rhythm during the exam. Left Ventricle: The left ventricle is normal in size and wall thickness. A false chord is noted (normal variant). The ejection fraction is estimated to be 55-60%. Subtle mid anterior and mid anterolateral wall hypokinesis present. Septal bounce present. Tricuspid Valve: The tricuspid valve is normal in structure and function. There is a trace or physiologic amount of tricuspid regurgitation. Pulmonary artery pressures cannot be estimated because of the lack of a measurable TR jet velocity but the IVC suggests a CVP of around 3 mmHg. Great Vessels: The IVC is of normal diameter and collapses greater than 50% with a sniff. This suggests a low right atrial pressure of 3 mm Hg. Pericardium/ Pleura There is no pericardial effusion. There is an anterior echo-free space consistent with a fat pad. MMode/2D Measurements & Calculations LVIDd: 4.1 cm IVC diam: 1.6 cm LVIDs: 2.6 cm IVSd: 0.77 cm LVPWd: 0.51 cm LV bai. diameter/BSA (cm/m^2): 2.4 LV sys. diameter/BSA (cm/m^2): 1.5 FS: 35.7 % Reading Physician:10:39 AM Electronically signed by: Ricardo Griffin DO 05/17/2021 at 8:28 AM Portions of today's documentation have been created with the assistance of voice recognition software. Therefore, it may contain anomalous punctuation, anomalous independent misrecognitions, word substitutions, insertions or omissions. Occasional wrong-word or phonetically similar substitutions may also occur, all due to the inherent limitations of voice recognition software. Attempts to correct the above have been made by Ricardo Griffin DO but it is recommended that the chart be read carefully to recognize, using context, where the substitutions may have occurred. Associated attestation - Iron Lowry DO - 05/17/2021 6:31 PM PDT I saw and evaluated the patient, participating in the villarreal portions of the service. I reviewed the resident???s note. I agree with the resident???s findings and plan. Patient with unstable angina, negative troponin, continued on Heparin gtt this AM, taken to cath labtoday and had ANDREA to LAD on 05/17/2021. Off heparin gtt, resume apixaban, start daily plavix.Inés Thakur PharmD - 05/16/2021 6:53 PM PDT Heparin Infusion per Pharmacy Management: Indication: ACS Dosing Wt: 75 kg Patient is on therapeutic hypothermia: No Date 05/15 05/15 05/16 05/16 05/16 05/17 05/17 Lab Time 1700 0008 0222 1036 1807 0100 1659 aPTT ---- >150 91.9 112.5 117.6 Bolus (units) ---- Infusion Rate (units/kg/hr) 12 Hold 1 hour 9 8 6.5 stop CBC review 9.9/32.9/246 9.2/30.5 Plt 236 Other anticoagulation: Apixaban last given @ 1014 today (05/15/21) Date Note 05/15 No heparin bolus consider last dose of apixaban given < 12 hours ago 05/16 Held for approx 1 hour restarting heparin at 9u/kg/hr while waiting for aptt result 05/16 Reducing rate to 8 units/kg/hr check aPTT in 6 hrs, called RN at 1150 with rate change, check next aPTT 6 hours. Beth Kaminski PharmD - 05/16/2021 11:53 AM PDT Heparin Infusion per Pharmacy Management: Indication: ACS Dosing Wt: 75 kg Patient is on therapeutic hypothermia: No Date 05/15 05/15 05/16 05/16 05/16 Lab Time 1700 0008 0222 1036 1800 aPTT ---- >150 91.9 112.5 Bolus (units) ---- Infusion Rate (units/kg/hr) 12 Hold 1 hour 9 8 CBC review 9.9/32.9/246 9.2/30.5 Plt 236 Other anticoagulation: Apixaban last given @ 1014 today (05/15/21) Date Note 05/15 No heparin bolus consider last dose of apixaban given < 12 hours ago 05/16 Held for approx 1 hour restarting heparin at 9u/kg/hr while waiting for aptt result 05/16 Reducing rate to 8 units/kg/hr check aPTT in 6 hrs, called RN at 1150 with rate change, check next aPTT 6 hours. Shantal Maldonado LCSW - 05/16/2021 11:38 AM PDT SOCIAL WORK: PROGRESS NOTE Data: EMR reviewed. Pt is on day 30 for Problem List Items Addressed This Visit Musculoskeletal * (Principal) Pressure injury of skin of right calf Relevant Orders [facility]. TEST - (Completed) Culture, Deep Abscess Aerobic&Anaerobic w/gram stain (Completed) Other Visit Diagnoses Acute renal failure, unspecified acute renal failure type ([facility]/HCC) - Primary Hyperkalemia Sepsis due to skin infection ([facility]) Acute anemia Occult blood in stools Acute cystitis without hematuria Patient is not medically stable for discharge at this time. Per discussion with provider, discharge needs have not been identified. Social Work consults to coordinate these services have not been ordered by physician at this time. Physician anticipates 1-2 days LOS. Receives wound care. Pt still on O2. Cardiology continues to follow. Barriers to Discharge Include: medical clearance Assessment: alert and oriented x4 Per PRECIPITATOR OPERATOR interactions, Physician Documentation and Nursing Documentation, patient has capacity for self care and has decisional capacity at this time. Plan: Anticipate patient to discharge home with [facility] ([facility])- pending confirmation that [facility] follows on [facility]. PRECIPITATOR OPERATOR will continue to follow pt's clinical course. LYLE PerezW Nikko Hankins MD - 05/16/2021 10:38 AM PDT CARDIOLOGY follow Up Note Patient Name: Shirin Aguillon Date of : 1945 Date of Admission: 04/15/2021 Date of Service: 05/16/2021 INTERVAL HISTORY: Shirin is a pleasant 75 yo female admitted for Sepsis syndrome, PMHX Paroxysmal atrial fibrillation with rapid ventricular response. Echocardiogram showed subtle mid-anterior hypokinesis, but normal wall motion otherwise EF is 50-55% stage II diastolic dysfunction. Troponin elevated on admission and remains elevated at 0.077. She has not experienced chest pain today. Patient Active Problem List Diagnosis ??? Seronegative rheumatoid arthritis of multiple sites (CMS/HCC) ??? Osteoarthropathy ??? Type II diabetes mellitus with complication (CMS/HCC) ??? Renal insufficiency ??? Grief ??? Psoriatic arthritis (CMS/HCC) ??? Abdominal pain ??? Functional diarrhea ??? Nausea and vomiting ??? Excessive body weight loss ??? Pressure injury of skin of right calf Current Medications: Scheduled Meds:aspirin, 81 mg, oral, Daily atorvastatin, 40 mg, oral, Nightly carvediloL, 6.25 mg, oral, BID with meals diltiazem CD, 240 mg, oral, Daily GI Cocktail, 10 mL, oral, Once insulin glargine, 6 Units, subcutaneous, Nightly insulin lispro, 0-5 Units, subcutaneous, Nightly insulin lispro, 0-6 Units, subcutaneous, TID with meals lactobacillus rhamnosus GG, 1 capsule, oral, Daily levOCARNitine, 500 mg, oral, Daily with dinner levothyroxine, 75 mcg, oral, q AM AC magnesium chloride, 1 tablet, oral, Daily with breakfast miconazole, , Topical, BID pantoprazole, 40 mg, oral, q AM AC predniSONE, 5 mg, oral, Daily senna, 1 tablet, oral, BID sertraline, 25 mg, oral, Nightly sulfaSALAzine, 1,000 mg, oral, BID Continuous Infusions:heparin, 8 Units/kg/hr (Order-Specific), Last Rate: 8 Units/kg/hr (05/16/21 1152) PRN Meds:??? acetaminophen ??? calcium carbonate ??? dextrose 50% (D50W) ??? diazePAM ??? diphenhydrAMINE ??? heparin ??? HYDROcodone-acetaminophen ??? lidocaine ??? Insert peripheral IV AND lidocaine AND Maintain IV access AND Saline lock IV AND sodium chloride ??? Insert peripheral IV AND lidocaine AND Maintain IV access AND Saline lock IV AND sodium chloride ??? Insert peripheral IV AND lidocaine AND Maintain IV access AND Saline lock IV AND sodium chloride ??? naloxone ??? nitroglycerin ??? ondansetron ??? ondansetron ??? ondansetron ODT ??? promethazine ??? [COMPLETED] Prepare/Crossmatch RBC: 1 Units AND [COMPLETED] Transfuse RBC: 1 Units AND [COMPLETED] Nursing communication: Ensure provider has obtained Informed Consent for Blood Transfusion AND Vital Signs AND sodium chloride AND [COMPLETED] Nursing Communication: Transfusion Reaction Management ??? sodium chloride Review of Systems: All other systems are reviewed and negative to the best of the patient's ability. PHYSICAL EXAMINATION: Vital Signs (as of 0600): Temp: [36.4 ??C (97.5 ??F)-36.7 ??C (98.1 ??F)] 36.4 ??C (97.5 ??F) Heart Rate: [72-90] 77 Resp: [18] 18 BP: (114-142)/(70-83) 142/79 Oxygen: SpO2: 96 % on liters via No intake/output data recorded. I/O???s (24 hours): Intake/Output Summary (Last 24 hours) at 05/16/2021 1300 Last data filed at 05/15/2021 1530 Gross per 24 hour Intake 115 ml Output ??? Net 115 ml Admission Weight: Weight: 72.6 kg Current weight: Weight: 76.1 kg Physical Exam: General appearance: No apparent distress, well-nourished, pleasant, cooperative HEET: Normocephalic atraumatic, no scleral icterus, tongue midline, mucous membranes moist Neck: supple Cardiovascular: RRR, normal S1 and normal S2, no murmurs/ rubs/gallops, PMI nondisplaced, no JVD, noperipheral edema Respiratory: Good aeration, CTAB Abdomen: Soft, nontender, nondistended, + bowel sounds Neuro: Alert, no facial droop, tongue midline, no gross motor deficits Psych: appropriate affect Skin: no rashes on face, neck, and lower extremities STUDIES: Echo 2020 1) Normal left ventricular size and systolic f unction (EF 55-60%). Subtle mid anterior and mid anterolateral wall hypokinesis present. Septal bounce present. 3) Compared to the Echo done 04/23/2021, no significant change when compared visually. ?? Results from last 7 days Lab Units 05/16/21 1119 05/16/21 0222 05/15/21 1723 05/15/21 1632 05/15/21 1229 05/15/21 0856 05/13/21 0809 05/13/21 0809 05/12/21 0522 05/11/21 0550 WBC AUTO x10e3/uL -- 6.9 8.3 -- -- 6.5 < > 6.4 -- < > HEMOGLOBIN g/dL -- 9.2* 9.2* -- -- 9.9* < > 9.3* -- < > HEMATOCRIT % -- 30.5* 30.2* -- -- 32.9* < > 30.9* -- < > PLATELETS AUTO x10e3/uL -- 236 240 -- -- 246 < > 222 -- < > SODIUM mmol/L 130* -- -- -- -- 135 -- 134 136 < > POTASSIUM mmol/L 4.6 -- -- -- -- 4.1 -- 4.3 4.3 < > CHLORIDE mmol/L 97 -- -- -- -- 100 -- 99 103 < > CO2 mmol/L 22 -- -- -- -- 26 -- 26 26 < > BUN mg/dL 13.0 -- -- -- -- 13.0 -- 12.0 11.0 < > CREATININE mg/dL 1.46* -- -- -- -- 1.46* -- 1.34* 1.40* < > GLUCOSE mg/dL 147* -- -- -- -- 121* -- 117* 129* < > MAGNESIUM mg/dL -- -- -- -- -- 2.0 -- 1.8 1.5* -- TROPONINT ug/L 0.077* -- -- 0.077* 0.077* -- -- -- -- -- CKTOTAL U/L -- -- -- -- 18* -- -- -- -- -- CKMB ng/mL -- -- -- -- 1.8 -- -- -- -- -- < > = values in this interval not displayed. Telemetry: Normal Sinus rhythm with occasional PVCs, 7 beats of Non sustained Ventricular Tachycardia. ECG 05/15/2021 Sinus Rhythm with T inversion in the anterior leads IMPRESSION AND RECOMMENDATIONS: 75 y.o. year old female who is now on Hospital Day: 32 after being admitted for altered mental status, sepsis and renal Failure. She has a history of HLD, HTN, PAF. # Chest Pain (24 hours ago), with elevated troponins, and ECG changes are concerning. Echo shows subtle hypokinesis of the mid anterior and mid anterolateral wall. Plan: - Continue Aspirin 81 mg daily - Continue Heparin drip for NSTEMI protocol - Continue Atorvastatin 40 mg nightly - Continue Diltiazem CD 240 Daily - Continue trend troponins/ CK-MB - [facility] with possible PCI tomorrow. Informed consent obtained after discussing benefits vs risks vs alternatives. Depending on contrast use, we may stage for PCI. # NSVT: noted on telemetry 05/16/2021. No symptoms. - Diltiazem as above - Continue to monitor Thank you for the interesting consultation. Cardiology will continue to follow. ?? JANNIE, Tayler Wood, was present during parts of the visit with the patient and myself, to obtainpreliminary history and to familiarize with the Plan of Care (POC) and Medical Decision Making (MDM)for any possible future visits and care. I performed a full history, physical exam, and MDM and then developed POC with the note as above along with my edits. Code Status:Full Code 05/16/2021 1:00 PM Ricardo Rosa DO - 05/16/2021 7:57 AM PDT [employer] Progress Note Inpatient Primary Care [facility] Patient Name: Shirin Aguillon Date of : 1945 Age: 75 y.o. Code Status: Full Code Primary Care Physician: Rogelio Braga MD Admitting Provider: Ana Maria Narvaez MD Attending Provider: Iron Lowry DO Admit Date: 04/15/2021 Date of Service: 05/16/2021 Hospital Day: 30 Assessment and Plan Shirin Aguillon is a 75 y.o. female anticoagulated with Eliquis??with a hx notable for type II diabetes mellitus, hypertension, hyperlipidemia, CKD, and rheumatoid arthritis??who presents to the ED??for evaluation of altered mental status and found to be in CAMILLE with hyperkalemia. Patient was treatedwith temporary hemodialysis and course of antibiotics for sepsis. Currently being treated for failure to thrive and deconditioning, autoimmune disease with bilateral lower extremity wounds. New onset chest pain with EKG changes, not present on admission, active - EKG showed diffuse T-wave inversions which are new - Trial of SL nitroglycerin significantly lowred patient's blood pressure. - Troponin 0.077 x2, CK/CKMB reassuring - Heparin infusion 48 hrs - Cardiology consulted, plan for Cardiac Cath Discharge planning: - Working with SW for LTC placement options - multiple SNF denials thus far - Pt lives on [facility] with family support. Working with HH for possible home with HH option that can service the pt's home. This option is unideal however pt is agreeable Soft tissue ulcerated wounds of bilateral lower extremities, POA. Improving. 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 Patient reports she developed these wounds following an allergic reaction to TMP-SMX. She was followed by Rheumatology for this; previously on Xeljanz, Leflunomide and Sulfasalazine for Crohn's and seronegative RA. Followed by Dr Shepherd. Pt reports another [employer] sales consultant switched her to Prednisone daily however I am not able to view these records - S/p bilateral calf wound debridement per GS, Micro positive for light growth pseudomonas and zenaida albicans - Continue wound care, wound consult team following; appreciate their excellent care and recommendations. Examined 05/07, no evidence of subcutaneous infection. See media tab - treatment of presumed autoimmune etiology and diabetes - conservative pain control. OK for 10mg [place] ~30m prior to wound dressing changes - Needs Outpatient Referral to Gen Surg for wound Biopsy Inflammatory bowel disease and rheumatoid arthritis on prednisone therapy, present on admission, active - continue oral Prednisone every day - Previously on Xeljanz, Leflunomide and Sulfasalazine. Reportedly discontinued this recently for prednisone and also discontinued outpatient Cipro for recurrent UTis - Discussed with Dr Shepherd Rheumatology 05/07, pt safe to resume & continue Sulfasalazine for Crohn's. Presumably the ulcers are from IBD however not safe to resume xeljanz and leflunomide due to infection - Recommend F/u with outpt rheumatology outpt for mgmt Depression, not present on admission, active Unclear if this is acute on chronic, may be related to adjustment disorder due to prolonged hospitalization and difficulty with placement, separation from family, decreased functional status and need for increased care. Differential includes bipolar depression, major depression - Continue sertraline, levocarnitine (give with food) - Recommend trial outpt N-acetylcysteine 500mg bid adjunct supplement for depression Weakness, Fatigue & Deconditioning, POA, improving - Functional status prior to admission:??Ambulates with a walker, stair chair at home, few stairs onher own. - Continue Physical therapy; recommending rehabilitation - SNF vs HH, disposition planning. Encourage pt to strengthen. Up in chair for meals, ambulate TID Chronic kidney disease III, present on admission, stable Baseline Cr around 1.2-1.3 during this admission, previous baseline around 1.1 prior. Likely she is at a stable baseline - UA / urine protein creatinine ratio exhibited significant nephropathy likely diabetic - Discontinue EMILY due to renal intolerance, d/w Nephro curbside - BUN/Cr did not improve much with supplemental IVF - Advised pt to drink >2.5L fluids daily Constipation, not present on admission, acute on chronic Likely due to low mobility and depressed PO intake, opiates likely contributory pt has diarrhea from Crohns disease at baseline - Begin daily bowel regimen (conservative), no fiber or laxatives due to crohn's disease Cystitis, acute on chronic, present on admission, resolved and now recurred & resolved Previously patient had evidence of Urogenital sepsis on admission, treated with broad spectrum antibiotics and a urine culture did not grow a pathogen. Pt has history of outpt Ciprofloxacin regimen, not currently taking per history and records. 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 -Glargine reduced on 04/27, discontinued on 04/28 -Sliding scale as needed plus lantus -F/u outpt for monitoring and/or oral medicines with pcp Decreased oral intake, not POA. Likely related to chronic disease (inflammatory) and decreased appetite from acute illness - Encourage food and fluid - No advance feeding interventions ?? Cardiac Focal wall motion abnormality, present on admission, resolved Echo 04/21 exhibited area of wall motion abnormality, EF 50% (WNL). Seen by cardiology, recommended optimal medical management with outpt f/u - Continue Betablocker, statin, EMILY, apixaban - Repeat Echo 05/15 exhibited subtle WMA & improvement in EF ?? Atrial fibrillation with rapid ventrilcular response ,??present on admission, chronic. RVR has Resolved. [id number] score of at least 4. No Afib notable on most recent Peggy patch outpatient -Continue her ambulatory diltiazem XR 240 mg and Apixaban Hypokalemia with Hypomagnesemia, not present on admission. Resolved. - Replete both electrolytes as needed. Likely secondary to diarrheal losses. Chronic anemia,??present on admission, stable.?? Iron profile is compatible with anemia of chronic disease. Recommend Outpatient colonoscopy Hypothyroidism, poa, chronic. Resumed Levothyroxine po 05/13 Respiratory distress, present on admission. Resolved. Metabolic acidosis with respiratory partial compensation, not present on admission. Resolved. CAMILLE, acute, present on admission. Resolved. Diarrhea, not present on admission, Resolved. Partly due to Crohn's Sepsis, acute, present on admission. Resolved. Body jerking,??present on admission. Resolved. VTE Prophylaxis: Apixaban Code Status: Full code Disposition: Waiting for SNF vs approval. Current Hospital Medications Allergies Allergies Allergen Reactions ??? Bactrim [Sulfamethoxazole-Trimethoprim] Swelling ??? Betadine [Povidone-Iodine] ??? Fish Derived ??? Iodine ??? Other [place] products ??? Shellfish Containing Products Medications Scheduled aspirin, 81 mg, oral, Daily atorvastatin, 40 mg, oral, Nightly carvediloL, 6.25 mg, oral, BID with meals diltiazem CD, 240 mg, oral, Daily GI Cocktail, 10 mL, oral, Once insulin glargine, 6 Units, subcutaneous, Nightly insulin lispro, 0-5 Units, subcutaneous, Nightly insulin lispro, 0-6 Units, subcutaneous, TID with meals lactobacillus rhamnosus GG, 1 capsule, oral, Daily levOCARNitine, 500 mg, oral, Daily with dinner levothyroxine, 75 mcg, oral, q AM AC magnesium chloride, 1 tablet, oral, Daily with breakfast miconazole, , Topical, BID pantoprazole, 40 mg, oral, q AM AC predniSONE, 5 mg, oral, Daily senna, 1 tablet, oral, BID sertraline, 25 mg, oral, Nightly sulfaSALAzine, 1,000 mg, oral, BID As needed ??? acetaminophen ??? calcium carbonate ??? dextrose 50% (D50W) ??? diazePAM ??? diphenhydrAMINE ??? heparin ??? HYDROcodone-acetaminophen ??? lidocaine ??? Insert peripheral IV AND lidocaine AND Maintain IV access AND Saline lock IV AND sodium chloride ??? Insert peripheral IV AND lidocaine AND Maintain IV access AND Saline lock IV AND sodium chloride ??? Insert peripheral IV AND lidocaine AND Maintain IV access AND Saline lock IV AND sodium chloride ??? naloxone ??? nitroglycerin ??? ondansetron ??? ondansetron ??? ondansetron ODT ??? promethazine ??? [COMPLETED] Prepare/Crossmatch RBC: 1 Units AND [COMPLETED] Transfuse RBC: 1 Units AND [COMPLETED] Nursing communication: Ensure provider has obtained Informed Consent for Blood Transfusion AND Vital Signs AND sodium chloride AND [COMPLETED] Nursing Communication: Transfusion Reaction Management ??? sodium chloride Infusions heparin, 9 Units/kg/hr (Order-Specific), Last Rate: 9 Units/kg/hr (05/16/21 0233) Subjective Patient's Update Patient feels tired and fatigued today. She states that her nausea has improved this morning. She states that her legs continue to be sore. She desires to go home and is tearful and anxious today. She is wondering if any medication would help her sense of anxiety. Interval Update No overnight events Objective BP 135/83 (BP Location: Left arm, Patient Position: Lying) Pulse 72 Temp 36.5 ??C (97.7 ??F) (Oral) Resp 18 Ht 1.524 m Wt 76.1 kg SpO2 94% BMI 32.77 kg/m?? Intake/Output Summary (Last 24 hours) at 05/16/2021 0757 Last data filed at 05/15/2021 1530 Gross per 24 hour Intake 215 ml Output ??? Net 215 ml Physical Exam Vitals and nursing note reviewed. Constitutional: General: She is not in acute distress. Appearance: She is obese. She is ill-appearing (chronically). HENT: Head: Normocephalic. Comments: Temporal wasting notable Hair loss alopecia notable Eyes: Extraocular Movements: Extraocular movements intact. Cardiovascular: Rate and Rhythm: Normal rate and regular rhythm. Pulses: Normal pulses. Heart sounds: Normal heart sounds. No murmur heard. No friction rub. No gallop. Pulmonary: Effort: Pulmonary effort is normal. No respiratory distress. Breath sounds: Normal breath sounds. No wheezing, rhonchi or rales. Abdominal: General: Abdomen is flat. There is no distension. Tenderness: There is no guarding. Musculoskeletal: General: Tenderness (to bilateral lower exremities) present. Normal range of motion. Skin: General: Skin is warm and dry. Coloration: Skin is pale. Skin is not jaundiced. Findings: Bruising present. Comments: Thin and fragile skin Neurological: Mental Status: She is alert. Mental status is at baseline. Motor: Weakness present. Psychiatric: Attention and Perception: Attention normal. Mood and Affect: Mood is anxious and depressed. Speech: Speech normal. Comments: Flat affect Labs and ECG Hematology Results from last 7 days Lab Units 05/16/21 0222 05/15/21 1723 05/15/21 0856 WBC AUTO x10e3/uL 6.9 8.3 6.5 HEMOGLOBIN g/dL 9.2* 9.2* 9.9* HEMATOCRIT % 30.5* 30.2* 32.9* MCV fL 84 83 83 PLATELETS AUTO x10e3/uL 236 240 246 Chemistries Results from last 7 days Lab Units 05/15/21 0856 05/13/21 0809 05/12/21 0522 05/11/21 0550 05/11/21 0550 05/10/21 0640 05/10/21 0640 SODIUM mmol/L 135 134 136 < > 138 < > 141 POTASSIUM mmol/L 4.1 4.3 4.3 < > 4.0 < > 3.9 CHLORIDE mmol/L 100 99 103 < > 103 < > 103 CO2 mmol/L 26 26 26 < > 28 < > 26 BUN mg/dL 13.0 12.0 11.0 < > 11.0 < > 11.0 CREATININE mg/dL 1.46* 1.34* 1.40* < > 1.56* < > 1.45* GLUCOSE mg/dL 121* 117* 129* < > 203* < > 96 CALCIUM, SERUM mg/dL 8.9 8.5 8.4* < > 8.2* < > 8.3* MAGNESIUM mg/dL 2.0 1.8 1.5* < > 1.7 < > 1.9 ALBUMIN g/dL -- -- -- -- 2.6* -- 3.0* < > = values in this interval not displayed. Estimated Creatinine Clearance: 31.3 mL/min (A) (by C-G formula based on SCr of 1.46 mg/dL (H)). Urinalysis Microbiology Urine culture Apollo Alvei 05/05 and 05/07 Diagnostic Imaging Imaging results: XR CHEST [address] [place] [address] PATIENT NAME: SHIRIN AGUILLON : 1945 GENDER: F EXAM DATE: 04/23/2021 16:33 ORDERED FROM: [facility] ORDERING PHYSICIAN: JORDAN RAMSEY CC: -- - - - CONTRAST: READING STATION ID: [id number] mGy: PROCEDURE: XR CHEST 1 VIEW INDICATIONS: Dobhoff placement - in place TECHNIQUE: One view of the chest was acquired. COMPARISON: [facility], , XR CHEST 1 VIEW, 04/22/2021, 15:54. FINDINGS: Surgical changes and devices: Dobbhoff tube tip is in distal stomach lumen below the right hemidiaphragm. Fusion hardware in lumbar spine is seen. Lungs and pleura: Pulmonary vascular congestion is seen. No significant pleural effusion or gross pneumothorax. Mild pulmonary edema is seen. Mediastinum: Mediastinal contours appear normal. Heart size is enlarged. Bones and chest wall: No suspicious bony lesions. Overlying soft tissues appear unremarkable. IMPRESSION: Dobbhoff tube tip is in the region of distal stomach lumen below the right hemidiaphragm. No free air under the diaphragm. Mild pulmonary vascular congestion. No gross pneumothorax. Reviewed by: Jacinto Rodriguez M.D. on 04/23/2021 at 16:54 Approved by: Jacinto Rodriguez M.D. on 04/23/2021 at 16:57 ECHOCARDIOGRAM COMPLETE Version: 1 Study ID: [id number] ?? [address] [address] Phone: ADULT ECHOCARDIOGRAM ?? Name: SHIRIN AGUILLON Study Date: 04/23/2021, 7: 55 AM : 1945 BP: 147 / 80 mmHg Gender: Female Height: 60 in Age: 75 Years Weight: 187.393 lb Pt. Location: [facility]^2008^2008-10 BSA: 1.82 m? Ordering: JORDAN RAMSEY Referring: Leon Hospitalist Clinician: Carli Vasquez Reason For Study: Dyspnea History: Summary Statements This is a technically difficult study characterized by limited endocardial visualization. Next time recommend DefinXenapto echocontrast if possible. Normal sinus rhythm with occasional PAC's. Normal LV size and wall thickness. There is subtle mid-anterior hypokinesis, but normal wall motion otherwise. EF is 50-55%. Stage II diastolic dysfunction. Normal chamber sizes. Aortic sclerosis without stenosis. Otherwise no valvular abnormalities. Compared to prior study 09/2019, focal wall motion abnormality involving mid-anterior segment is newly described Electronically signed by: Lucinda Bahena M.D. 04/23/2021, 3: 19 PM Results for orders placed during the hospital encounter of 04/15/21 ECHOCARDIOGRAM LIMITED Narrative [facility] +---------+ : : [address] : : : : [place], : : : : [place] [id number] : : : : Phone: [phone] Echocardiogram Report + + :Name: SHIRIN AGUILLON Study Date: 05/16/2021 Height: 60 in : :[facility] ReadingLocation: Weight: 168 lb : : Gender: Female BSA: 1.7 m2 : :: 1945 Age: 75 yrs BP: 135/83 mmHg: :Reason For Study: Assess LV wall motion and EF : :Ordering Physician: MARY, : :NIKKO Performed By: Veronica Raphael : :Referring: RED TEAM : + + Interpretation Summary Limited Echo: 1) Normal left ventricular size and systolic f unction (EF 55-60%). 2) Subtle mid anterior and mid anterolateral wall hypokinesis present. Septal bounce present. 3) Compared to the Echo done 04/23/2021, no significant change when compared visually. Procedure: A two-dimensional transthoracic echocardiogram with color flow and Doppler was performed in limited views only to assess Assess LV wall motion, EF. The study quality was technically adequate. Comparison is made with the echocardiogram of 04/23/2021. The patient was in normal sinus rhythm during the exam. Left Ventricle: The left ventricle is normal in size and wall thickness. A false chord is noted (normal variant). The ejection fraction is estimated to be 55-60%. Subtle mid anterior and mid anterolateral wall hypokinesis present. Septal bounce present. Tricuspid Valve: The tricuspid valve is normal in structure and function. There is a trace or physiologic amount of tricuspid regurgitation. Pulmonary artery pressures cannot be estimated because of the lack of a measurable TR jet velocity but the IVC suggests a CVP of around 3 mmHg. Great Vessels: The IVC is of normal diameter and collapses greater than 50% with a sniff. This suggests a low right atrial pressure of 3 mm Hg. Pericardium/ Pleura There is no pericardial effusion. There is an anterior echo-free space consistent with a fat pad. MMode/2D Measurements & Calculations LVIDd: 4.1 cm IVC diam: 1.6 cm LVIDs: 2.6 cm IVSd: 0.77 cm LVPWd: 0.51 cm LV bai. diameter/BSA (cm/m^2): 2.4 LV sys. diameter/BSA (cm/m^2): 1.5 FS: 35.7 % Reading Physician:10:39 AM Electronically signed by: Ricardo Griffin DO 05/16/2021 at 7:57 AM Portions of today's documentation have been created with the assistance of voice recognition software. Therefore, it may contain anomalous punctuation, anomalous independent misrecognitions, word substitutions, insertions or omissions. Occasional wrong-word or phonetically similar substitutions may also occur, all due to the inherent limitations of voice recognition software. Attempts to correct the above have been made by Ricardo Griffin DO but it is recommended that the chart be read carefully to recognize, using context, where the substitutions may have occurred. Associated attestation - Iron Lowry DO - 05/16/2021 5:10 PM PDT I saw and evaluated the patient, participating in the villarreal portions of the service. I reviewed the resident???s note. I agree with the resident???s findings and plan. Patient with recurrent chest pain, trop mildly elevated, was placed on heparin gtt yesterday by cardiology, plan for cardiac cath tomorrow. NPO at midnight. Continue heparin gtt.Inés Thakur, PharmAndrews - 05/15/2021 5:11 PM PDT Heparin Infusion per Pharmacy Management: Indication: ACS Dosing Wt: 75 kg Patient is on therapeutic hypothermia: No Date 05/15 05/15 Lab Time 1700 2300 aPTT ---- Bolus (units) ---- Infusion Rate (units/kg/hr) 12 CBC review 9.9/32.9/246 Other anticoagulation: Apixaban last given @ 1014 today (05/15/21) Date Note Iron Lowry DO - 05/15/2021 4:00 PM PDT [facility] Progress Note Inpatient Primary Care [facility] Patient Name: Shirin Aguillon Date of : 1945 Age: 75 y.o. Code Status: Full Code Primary Care Physician: Rogelio Braga MD Admitting Provider: Ana Maria Narvaez MD Attending Provider: Iron Lowry DO Admit Date: 04/15/2021 Date of Service: 05/15/2021 Hospital Day: 29 Assessment and Plan Shirin Aguillon is a 75 y.o. female anticoagulated with Eliquis??with a hx notable for type II diabetes mellitus, hypertension, hyperlipidemia, CKD, and rheumatoid arthritis??who presents to the ED??for evaluation of altered mental status and found to be in CAMILLE with hyperkalemia. Patient was treatedwith temporary hemodialysis and course of antibiotics for sepsis. Currently being treated for failure to thrive and deconditioning, autoimmune disease with bilateral lower extremity wounds. Discharge planning: - Working with for LTC placement options - multiple SNF denials thus far - Pt lives on [facility] with family support. Working with for possible home with HH option that can service the pt's home. This option is unideal however pt is agreeable New onset chest pain with EKG changes, not present on admission, active - Patient with rapid response today due to chest pain - EKG done with diffuse T-wave inversions which are new - Trial of SL nitroglycerin which significantly lowred patient's blood pressure. - Initial troponin 0.077; trend trops - CK and CK-MB ordered - Cardiology re-consulted - Heparin not started due to patient being on apixaban at this time Soft tissue ulcerated wounds of bilateral lower extremities, POA. Improving. 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 Patient reports she developed these wounds following an allergic reaction to TMP-SMX. She was followed by Rheumatology for this; previously on Xeljanz, Leflunomide and Sulfasalazine for Crohn's and seronegative RA. Followed by Dr Shepherd. Pt reports another [employer] sales consultant switched her to Prednisone daily however I am not able to view these records - S/p bilateral calf wound debridement per GS, Micro positive for light growth pseudomonas and zenaida albicans - Continue wound care, wound consult team following; appreciate their excellent care and recommendations. Examined 05/07, no evidence of subcutaneous infection. See media tab - treatment of presumed autoimmune etiology and diabetes - conservative pain control. OK for 10mg [place] ~30m prior to wound dressing changes - Recommend Referral to Gen Surg for outpatient Biopsy Prednisone therapy for inflammatory bowel disease and rheumatoid arthritis, present on admission, active - continue outpt Steroids oral Prednisone - Previously on Xeljanz, Leflunomide And Sulfasalazine. Reportedly discontinued this recently for prednisone and also discontinued outpatient Cipro for recurrent UTis - Discussed with Dr Shepherd Rheumatology 05/07, pt safe to resume Sulfasalazine for Crohn's. Presumably the ulcers are from IBD however not safe to resume xeljanz and leflunomide due to infection - Recommend F/u with outpt rheumatology outpt for mgmt Depression, not present on admission, active Unclear if this is acute on chronic, may be related to adjustment disorder due to prolonged hospitalization and difficulty with placement, separation from family, decreased functional status and need for increased care. Differential includes bipolar depression, major depression - Pt often tearful for multiple days, with elated mood when family visit - Continue sertraline low dose. Reviewed & Does not interact with pt's other medicines - Resume Levocarnitine, administer with food - Recommend trial outpt N-acetylcysteine 500mg bid for depression Weakness, Fatigue & Deconditioning, POA, improving - Functional status prior to admission:??Ambulates with a walker, stair chair at home, few stairs onher own. - Continue Physical therapy; recommending rehabilitation - Up in chair for meals, ambulate TID - SNF vs , disposition planning. Encourage pt to strengthen Relative CAMILLE on Chronic kidney disease III, present on admission, stable Baseline Cr around 1.2-1.3 during this admission, previous baseline around 1.1 prior. Likely she is at a stable baseline - UA / urine protein creatinine ratio exhibited significant nephropathy likely diabetic - Discontinue EMILY due to renal intolerance, d/w Nephro curbside - BUN/Cr did not improve much with supplemental IVF - Advised pt to drink >2.5L fluids daily Constipation, not present on admission, acute on chronic Likely due to low mobility and depressed PO intake, Crohns disease at baseline, opiates also contributory - Begin daily bowel regimen (conservative), no fiber or laxatives due to crohn's disease Cystitis, acute on chronic, present on admission, resolved and now recurred & resolved Previously patient had evidence of Urogenital sepsis on admission, treated with broad spectrum antibiotics and a urine culture did not grow a pathogen. Pt has history of outpt Ciprofloxacin regimen, not currently taking per history and records. - 05/07 symptoms of encephalopathy, abdominal pain and polyuria, slowly improving - Urine culture grew Apollo levy susceptible to Cipro which she has tolerated well in the past - Completed 3 day course of Abx, cefepime & ciprofloxacin, monitor for symptoms including encephalopathy Type 2 diabetes mellitus uncontrolled, POA, chronic. -Glargine reduced on 04/27, discontinued on 04/28 -Sliding scale as needed plus lantus -F/u outpt for monitoring and/or oral medicines with pcp Decreased oral intake, not POA. Likely related to chronic disease (inflammatory) and decreased appetite from acute illness - Encourage food and fluid - No advance feeding interventions ?? Cardiac Focal wall motion abnormality, present on admission, active Echo 04/21 exhibited area of wall motion abnormality, EF 50% (WNL). Seen by cardiology, recommended optimal medical management with outpt f/u - Continue Betablocker, statin, EMILY, apixaban - Recommend F/u outpt with cardiology in 2-3 weeks after discharge for f/u echo and evaluation ?? Atrial fibrillation with rapid ventrilcular response ,??present on admission, chronic. RVR has Resolved. [id number] score of at least 4. No Afib notable on most recent Peggy patch outpatient -Continue her ambulatory diltiazem XR 240 mg and Apixaban Hypokalemia with Hypomagnesemia, not present on admission. Resolved. - Replete both electrolytes as needed. Likely secondary to diarrheal losses. Chronic anemia,??present on admission, stable.?? Iron profile is compatible with anemia of chronic disease. Recommend Outpatient colonoscopy Hypothyroidism, poa, chronic. Resumed Levothyroxine po 05/13 Respiratory distress, present on admission. Resolved. Metabolic acidosis with respiratory partial compensation, not present on admission. Resolved. CAMILLE, acute, present on admission. Resolved. Diarrhea, not present on admission, Resolved. Partly due to Crohn's Sepsis, acute, present on admission. Resolved. Body jerking,??present on admission. Resolved. VTE Prophylaxis: Apixaban Code Status: Full code Disposition: Waiting for SNF vs approval. Current Hospital Medications Allergies Allergies Allergen Reactions ??? Bactrim [Sulfamethoxazole-Trimethoprim] Swelling ??? Betadine [Povidone-Iodine] ??? Fish Derived ??? Iodine ??? Other [place] products ??? Shellfish Containing Products Medications Scheduled apixaban, 5 mg, oral, BID atorvastatin, 40 mg, oral, Nightly carvediloL, 6.25 mg, oral, BID with meals diltiazem CD, 240 mg, oral, Daily GI Cocktail, 10 mL, oral, Once insulin glargine, 6 Units, subcutaneous, Nightly insulin lispro, 0-5 Units, subcutaneous, Nightly insulin lispro, 0-6 Units, subcutaneous, TID with meals lactobacillus rhamnosus GG, 1 capsule, oral, Daily levOCARNitine, 500 mg, oral, Daily with dinner levothyroxine, 75 mcg, oral, q AM AC magnesium chloride, 1 tablet, oral, Daily with breakfast miconazole, , Topical, BID pantoprazole, 40 mg, oral, q AM AC predniSONE, 5 mg, oral, Daily senna, 1 tablet, oral, BID sertraline, 25 mg, oral, Nightly sulfaSALAzine, 1,000 mg, oral, BID As needed ??? acetaminophen ??? calcium carbonate ??? dextrose 50% (D50W) ??? diazePAM ??? diphenhydrAMINE ??? HYDROcodone-acetaminophen ??? lidocaine ??? Insert peripheral IV AND lidocaine AND Maintain IV access AND Saline lock IV AND sodium chloride ??? Insert peripheral IV AND lidocaine AND Maintain IV access AND Saline lock IV AND sodium chloride ??? Insert peripheral IV AND lidocaine AND Maintain IV access AND Saline lock IV AND sodium chloride ??? naloxone ??? nitroglycerin ??? ondansetron ??? ondansetron ??? ondansetron ODT ??? promethazine ??? [COMPLETED] Prepare/Crossmatch RBC: 1 Units AND [COMPLETED] Transfuse RBC: 1 Units AND [COMPLETED] Nursing communication: Ensure provider has obtained Informed Consent for Blood Transfusion AND Vital Signs AND sodium chloride AND [COMPLETED] Nursing Communication: Transfusion Reaction Management ??? sodium chloride Infusions Subjective Patient's Update Patient feels tired and fatigued today. She states that her nausea has improved this morning. She states that her legs continue to be sore. She desires to go home and is tearful and anxious today. She is wondering if any medication would help her sense of anxiety. Interval Update No overnight events Objective BP (!) 147/81 (BP Location: Right arm, Patient Position: Semi-Mmis's) Comment: Rn aware Pulse 82 Temp 36.8 ??C (98.2 ??F) (Oral) Resp 18 Ht 1.524 m Wt 76.1 kg SpO2 96% BMI 32.77 kg/m?? Intake/Output Summary (Last 24 hours) at 05/15/2021 1601 Last data filed at 05/15/2021 1530 Gross per 24 hour Intake 215 ml Output ??? Net 215 ml Physical Exam Vitals and nursing note reviewed. Constitutional: General: She is not in acute distress. Appearance: She is obese. She is not ill-appearing. HENT: Head: Normocephalic and atraumatic. Nose: Nose normal. Mouth/Throat: Mouth: Mucous membranes are moist. Eyes: General: No scleral icterus. Conjunctiva/sclera: Conjunctivae normal. Cardiovascular: Rate and Rhythm: Normal rate and regular rhythm. Pulses: Normal pulses. Heart sounds: Normal heart sounds. No murmur heard. No friction rub. No gallop. Pulmonary: Effort: Pulmonary effort is normal. No respiratory distress. Breath sounds: Normal breath sounds. No wheezing, rhonchi or rales. Abdominal: General: Bowel sounds are normal. There is no distension. Palpations: Abdomen is soft. Tenderness: There is no abdominal tenderness. Musculoskeletal: General: Tenderness (to bilateral lower exremities) present. Normal range of motion. Cervical back: Normal range of motion. Skin: General: Skin is warm and dry. Coloration: Skin is not pale. Comments: Thin and fragile skin Neurological: General: No focal deficit present. Mental Status: She is alert and oriented to person, place, and time. Psychiatric: Attention and Perception: Attention normal. Mood and Affect: Mood is anxious and depressed. Speech: Speech normal. Behavior: Behavior normal. Labs and ECG Hematology Results from last 7 days Lab Units 05/15/21 0856 05/13/21 0809 05/11/21 0550 WBC AUTO x10e3/uL 6.5 6.4 6.3 HEMOGLOBIN g/dL 9.9* 9.3* 8.5* HEMATOCRIT % 32.9* 30.9* 29.5* MCV fL 83 84 88 PLATELETS AUTO x10e3/uL 246 222 217 Chemistries Results from last 7 days Lab Units 05/15/21 0856 05/13/21 0809 05/12/21 0522 05/11/21 0550 05/11/21 0550 05/10/21 0640 05/10/21 0640 SODIUM mmol/L 135 134 136 < > 138 < > 141 POTASSIUM mmol/L 4.1 4.3 4.3 < > 4.0 < > 3.9 CHLORIDE mmol/L 100 99 103 < > 103 < > 103 CO2 mmol/L 26 26 26 < > 28 < > 26 BUN mg/dL 13.0 12.0 11.0 < > 11.0 < > 11.0 CREATININE mg/dL 1.46* 1.34* 1.40* < > 1.56* < > 1.45* GLUCOSE mg/dL 121* 117* 129* < > 203* < > 96 CALCIUM, SERUM mg/dL 8.9 8.5 8.4* < > 8.2* < > 8.3* MAGNESIUM mg/dL 2.0 1.8 1.5* < > 1.7 < > 1.9 ALBUMIN g/dL -- -- -- -- 2.6* -- 3.0* < > = values in this interval not displayed. Estimated Creatinine Clearance: 31.3 mL/min (A) (by C-G formula based on SCr of 1.46 mg/dL (H)). Urinalysis Microbiology Urine culture Hafnia Alvei 05/05 and 05/07 Diagnostic Imaging Imaging results: XR CHEST [address] [place] [address] PATIENT NAME: SHIRIN AGUILLON : 1945 GENDER: F EXAM DATE: 04/23/2021 16:33 ORDERED FROM: [facility] ORDERING PHYSICIAN: JORDAN RAMSEY CC: -- - - - CONTRAST: READING STATION ID: [id number] mGy: PROCEDURE: XR CHEST 1 VIEW INDICATIONS: Dobhoff placement - in place TECHNIQUE: One view of the chest was acquired. COMPARISON: [facility], , XR CHEST 1 VIEW, 04/22/2021, 15:54. FINDINGS: Surgical changes and devices: Dobbhoff tube tip is in distal stomach lumen below the right hemidiaphragm. Fusion hardware in lumbar spine is seen. Lungs and pleura: Pulmonary vascular congestion is seen. No significant pleural effusion or gross pneumothorax. Mild pulmonary edema is seen. Mediastinum: Mediastinal contours appear normal. Heart size is enlarged. Bones and chest wall: No suspicious bony lesions. Overlying soft tissues appear unremarkable. IMPRESSION: Dobbhoff tube tip is in the region of distal stomach lumen below the right hemidiaphragm. No free air under the diaphragm. Mild pulmonary vascular congestion. No gross pneumothorax. Reviewed by: Jacinto Rodriguez M.D. on 04/23/2021 at 16:54 Approved by: Jacinto Rodriguez M.D. on 04/23/2021 at 16:57 ECHOCARDIOGRAM COMPLETE Version: 1 Study ID: [id number] ?? [address] [address] Phone: ADULT ECHOCARDIOGRAM ?? Name: SHIRIN AGUILLON Study Date: 04/23/2021, 7: 55 AM : 1945 BP: 147 / 80 mmHg Gender: Female Height: 60 in Age: 75 Years Weight: 187.393 lb Pt. Location: [facility]^2008^2008-10 BSA: 1.82 m? Ordering: JORDAN RAMSEY Referring: [facility] Hospitalist Clinician: Carli Vasquez Reason For Study: Dyspnea History: Summary Statements This is a technically difficult study characterized by limited endocardial visualization. Next time recommend Definity echocontrast if possible. Normal sinus rhythm with occasional PAC's. Normal LV size and wall thickness. There is subtle mid-anterior hypokinesis, but normal wall motion otherwise. EF is 50-55%. Stage II diastolic dysfunction. Normal chamber sizes. Aortic sclerosis without stenosis. Otherwise no valvular abnormalities. Compared to prior study 09/2019, focal wall motion abnormality involving mid-anterior segment is newly described Electronically signed by: Lucinda Bahena M.D. 04/23/2021, 3: 19 PM Electronically signed by: Iron Lowry DO 05/15/2021 at 4:01 PM Portions of today's documentation have been created with the assistance of voice recognition software. Therefore, it may contain anomalous punctuation, anomalous independent misrecognitions, word substitutions, insertions or omissions. Occasional wrong-word or phonetically similar substitutions may also occur, all due to the inherent limitations of voice recognition software. Attempts to correct the above have been made by Iron Lowry DO but it is recommended that the chart be read carefully to recognize, using context, where the substitutions may have occurred. ikko Tan MD - 05/15/2021 3:17 PM PDT CARDIOLOGY follow Up Note Patient Name: Shirin Aguillon Date of : 1945 Date of Admission: 04/15/2021 Date of Service: 05/15/2021 INTERVAL HISTORY: Shirin is a pleasant 75 Female, admitted for sepsis syndrome, h/o paroxysmal atrial fibrillation with rapid ventricular response. Echocardiogram showed here subtle mid-anterior hypokinesis, but normal wall motion otherwise. EF is 50-55%. Stage II diastolic dysfunction.Troponins elev ated on admission and still elevated today 0.077. She experienced chest pain today, she described at a chest tightness 8-07/09 that lasted about 15 minutes, it did not radiate, she was given one sublingual nitroglycerine with no relief. Her systolic blood pressure dropped from 130 to 90's to 70's, deep breaths and repositioning helped with the discomfort. Patient Active Problem List Diagnosis ??? Seronegative rheumatoid arthritis of multiple sites (CMS/HCC) ??? Osteoarthropathy ??? Type II diabetes mellitus with complication (CMS/HCC) ??? Renal insufficiency ??? Grief ??? Psoriatic arthritis (CMS/HCC) ??? Abdominal pain ??? Functional diarrhea ??? Nausea and vomiting ??? Excessive body weight loss ??? Pressure injury of skin of right calf Current Medications: Scheduled Meds:atorvastatin, 40 mg, oral, Nightly carvediloL, 6.25 mg, oral, BID with meals diltiazem CD, 240 mg, oral, Daily GI Cocktail, 10 mL, oral, Once heparin, 50 Units/kg, intravenous, Once insulin glargine, 6 Units, subcutaneous, Nightly insulin lispro, 0-5 Units, subcutaneous, Nightly insulin lispro, 0-6 Units, subcutaneous, TID with meals lactobacillus rhamnosus GG, 1 capsule, oral, Daily levOCARNitine, 500 mg, oral, Daily with dinner levothyroxine, 75 mcg, oral, q AM AC magnesium chloride, 1 tablet, oral, Daily with breakfast miconazole, , Topical, BID pantoprazole, 40 mg, oral, q AM AC predniSONE, 5 mg, oral, Daily senna, 1 tablet, oral, BID sertraline, 25 mg, oral, Nightly sulfaSALAzine, 1,000 mg, oral, BID Continuous Infusions:heparin, 12 Units/kg/hr (Order-Specific) PRN Meds:??? acetaminophen ??? calcium carbonate ??? dextrose 50% (D50W) ??? diazePAM ??? diphenhydrAMINE ??? heparin ??? HYDROcodone-acetaminophen ??? lidocaine ??? Insert peripheral IV AND lidocaine AND Maintain IV access AND Saline lock IV AND sodium chloride ??? Insert peripheral IV AND lidocaine AND Maintain IV access AND Saline lock IV AND sodium chloride ??? Insert peripheral IV AND lidocaine AND Maintain IV access AND Saline lock IV AND sodium chloride ??? naloxone ??? nitroglycerin ??? ondansetron ??? ondansetron ??? ondansetron ODT ??? promethazine ??? [COMPLETED] Prepare/Crossmatch RBC: 1 Units AND [COMPLETED] Transfuse RBC: 1 Units AND [COMPLETED] Nursing communication: Ensure provider has obtained Informed Consent for Blood Transfusion AND Vital Signs AND sodium chloride AND [COMPLETED] Nursing Communication: Transfusion Reaction Management ??? sodium chloride Review of Systems: All other systems are reviewed and negative to the best of the patient's ability. PHYSICAL EXAMINATION: Vital Signs (as of 0600): Temp: [36.4 ??C (97.5 ??F)-36.8 ??C (98.2 ??F)] 36.8 ??C (98.2 ??F) Heart Rate: [82-87] 82 Resp: [16-18] 18 BP: (139-147)/(77-84) 147/81 Oxygen: SpO2: 96 % on liters via I/O this shift: In: 215 [P.O.:215] Out: - I/O???s (24 hours): Intake/Output Summary (Last 24 hours) at 05/15/2021 1655 Last data filed at 05/15/2021 1530 Gross per 24 hour Intake 215 ml Output ??? Net 215 ml Admission Weight: Weight: 72.6 kg Current weight: Weight: 76.1 kg Physical Exam: General appearance: No apparent distress, well-nourished, pleasant, cooperative HEET: Normocephalic atraumatic, no scleral icterus, tongue midline, mucous membranes moist Neck: supple Cardiovascular: RRR, normal S1 and normal S2, no murmurs/ rubs/gallops, PMI nondisplaced, no JVD, noperipheral edema Respiratory: Good aeration, CTAB Abdomen: Soft, nontender, nondistended, + bowel sounds Neuro: Alert, no facial droop, tongue midline, no gross motor deficits Psych: appropriate affect Skin: no rashes on face, neck. Right inner arm with bandage, bilateral lower legs wrapped with Kurlex to protect skin. STUDIES: Results from last 7 days Lab Units 05/15/21 1229 05/15/21 0856 05/13/21 0809 05/12/21 0522 05/11/21 0550 05/11/21 0550 WBC AUTO x10e3/uL -- 6.5 6.4 -- -- 6.3 HEMOGLOBIN g/dL -- 9.9* 9.3* -- -- 8.5* HEMATOCRIT % -- 32.9* 30.9* -- -- 29.5* PLATELETS AUTO x10e3/uL -- 246 222 -- -- 217 SODIUM mmol/L -- 135 134 136 < > 138 POTASSIUM mmol/L -- 4.1 4.3 4.3 < > 4.0 CHLORIDE mmol/L -- 100 99 103 < > 103 CO2 mmol/L -- 26 26 26 < > 28 BUN mg/dL -- 13.0 12.0 11.0 < > 11.0 CREATININE mg/dL -- 1.46* 1.34* 1.40* < > 1.56* GLUCOSE mg/dL -- 121* 117* 129* < > 203* MAGNESIUM mg/dL -- 2.0 1.8 1.5* < > 1.7 TROPONINT ug/L 0.077* -- -- -- -- -- CKTOTAL U/L 18* -- -- -- -- -- CKMB ng/mL 1.8 -- -- -- -- -- < > = values in this interval not displayed. Telemetry: Normal Sinus Rhythm ECG: Sinus Rhythm with T inversions in the anterior leads (new finding) IMPRESSION AND RECOMMENDATIONS: 75 y.o. year old female who is now on Hospital Day: 31 after being admitted for altered mental status, sepsis and renal failure. She has a history of HLD, HTN, PAF . # Chest pain: Chest pain today with elevated troponins, and ECG changes are concerning. Patient educated about her condition. Plan: - Start aspirin 81mg daily (after 162mg PO load) - start Heparin drip for NSTEMI protocol. - Continue Atorvastatin 40 mg nightly - Continue Carvedilol 6.25 mg BID - Continue Diltiazem CD 240 diltiazem daily - Continue to trend serial trops/CK-MB - Limited Echo to assess LV flannery and function - Ischemia evaluation in the next few days Thank you for the interesting consultation. Cardiology will continue to follow. JANNIE, Tayler Wood, was present during parts of the visit with the patient and myself, to obtainpreliminary history and to familiarize with the Plan of Care (POC) and Medical Decision Making (MDM)for any possible future visits and care. I performed a full history, physical exam, and MDM and then developed POC with the note as above along with my edits. Code Status:Full Code 05/15/2021 4:55 PM Sim Caicedo PTA - 05/15/2021 11:51 AM PDT Pt politely declined skilled PT this morning despite encouragement. She was encouraged to get up to the chair for lunch. PT will cont to follow. Meri Skinner RD - 05/14/2021 1:41 PM PDT NUTRITION FOLLOW UP: ASSESS: 75 yo F admitted for sepsis and CAMILLE with hyperkalemia. Urine output improved, dialysis beingheld per notes. Pt s/p debridement of bilateral calf wound 04/18. Pt had a prolonged NPO status so Dobhoff was placed 04/22, TF was tolerated at goal. Pt pulled out NGT 04/25, tube feeds off. Diet advanced per ST 04/26. PO 0-75%; diet remains mechanical soft thin liquids. Per RN pt remains A&Ox1-2 with delayed responses, mild improvement in po intake. MD notes indicate no advance feeding interventions with decreased oral intake (04/30). Per SW notes pt likely to discharge to SNF soon, wound care consulted and has been seen before by wound (see previous notes). Spoke with pt 05/07 afternoon, states that she cannot have Ensure because she is allergic to it. She also reported that she does not like the Sami-D/C'D. Awaiting SNF acceptance. Per care staff notes, pt eats well when family present, ~25-66%. PMHX: Arthritis, T2DM, PNA, HLD, HTN, kidney disease, UTI LABS: reviewed. POC gluc 94-201. MEDS: Insulin, colace, magnesium chloride, senna, lactobacillus, others reviewed. GI: BM 05/04 SKIN: ulcer on R& L calf, stg 2 PI on coccyx CURRENT WT: 76.1 kg ( bed scale); BMI 33.37 kg/m2, IBW: 45.5 kg, admit wt: 72.4kg DIET: Mech soft, thin liq; 1:1 assist. PO 25-66% SHELLFISH ALLERGY ESTIMATED NEEDS: CAMILLE, BMI, wounds Calories: 3101-5529 kcal/day (20-25 kcal/kg BW) Protein: 55-70 g/day (1.0-1.2 g/kg IBW) Fluids: 2125-2550ml/day (25-30 ml/kg) NUTRITION DIAGNOSIS: 1) Inadequate oral intake related to decreased ability to consume sufficient energy as evidenced by current NPO status.--IMPROVING 2) Increased kcal/pro needs related to increased nutrient demand as evidence by pt with multiple pressure injuries. --PERSISTS 3) Chew/swallow difficulty due to AMS as evidenced by modified diet texture per AU PAIR.--IMPROVING NUTRITION INTERVENTION: 1) Continue current diet per speech therapy. Consider tube feeding if in line with pt goals of care d/t increased healing needs and variable to poor po intake. 2) Pt reported that she does not like Sami at all and had two full cups of it on her bedside table.Will cancel Sami order. 3) Diabetes ed completed 05/10. MONITOR/EVALUATE: PO intake, diet tolerance, GI, wounds, labs, POC, nutrition status. Follow per high nutrition risk guidelines. Shelley Ricardo, - 05/14/2021 8:18 AM PDT [facility] Progress Note Inpatient Primary Care [facility] Patient Name: Shirin Aguillon Date of : 1945 Age: 75 y.o. Code Status: Full Code Primary Care Physician: Rogelio Braga MD Admitting Provider: Ana Maria Narvaez MD Attending Provider: Iron Lowry DO Admit Date: 04/15/2021 Date of Service: 05/14/2021 Hospital Day: 28 Assessment and Plan Shirin Aguillon is a 75 y.o. female anticoagulated with Eliquis??with a hx notable for type II diabetes mellitus, hypertension, hyperlipidemia, CKD, and rheumatoid arthritis??who presents to the ED??for evaluation of altered mental status and found to be in CAMILLE with hyperkalemia. Patient was treatedwith temporary hemodialysis and course of antibiotics for sepsis. Currently being treated for failure to thrive and deconditioning, autoimmune disease with bilateral lower extremity wounds. Discharge planning: - Working with SW for LTC placement options - multiple SNF denials thus far - Pt lives on [facility] with family support. Working with HH for possible home with HH option that can service the pt's home. This option is unideal however pt is agreeable Soft tissue ulcerated wounds of bilateral lower extremities, POA. Improving. 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 Patient reports she developed these wounds following an allergic reaction to TMP-SMX. She was followed by Rheumatology for this; previously on Xeljanz, Leflunomide and Sulfasalazine for Crohn's and seronegative RA. Followed by Dr Shepherd. Pt reports another [employer] sales consultant switched her to Prednisone daily however I am not able to view these records - S/p bilateral calf wound debridement per GS, Micro positive for light growth pseudomonas and zenaida albicans - Continue wound care, wound consult team following; appreciate their excellent care and recommendations. Examined 05/07, no evidence of subcutaneous infection. See media tab - treatment of presumed autoimmune etiology and diabetes - conservative pain control. OK for 10mg [place] ~30m prior to wound dressing changes - Recommend Referral to Gen Surg for outpatient Biopsy Prednisone therapy for inflammatory bowel disease and rheumatoid arthritis, present on admission, active - continue outpt Steroids oral Prednisone - Previously on Xeljanz, Leflunomide And Sulfasalazine. Reportedly discontinued this recently for prednisone and also discontinued outpatient Cipro for recurrent UTis - Discussed with Dr Shepherd Rheumatology 05/07, pt safe to resume Sulfasalazine for Crohn's. Presumably the ulcers are from IBD however not safe to resume xeljanz and leflunomide due to infection - Recommend F/u with outpt rheumatology outpt for mgmt Depression, not present on admission, active Unclear if this is acute on chronic, may be related to adjustment disorder due to prolonged hospitalization and difficulty with placement, separation from family, decreased functional status and need for increased care. Differential includes bipolar depression, major depression - Pt often tearful for multiple days, with elated mood when family visit - Continue sertraline low dose. Reviewed & Does not interact with pt's other medicines - Resume Levocarnitine, administer with food - Recommend trial outpt N-acetylcysteine 500mg bid for depression Weakness, Fatigue & Deconditioning, POA, improving - Functional status prior to admission:??Ambulates with a walker, stair chair at home, few stairs onher own. - Continue Physical therapy; recommending rehabilitation - Up in chair for meals, ambulate TID - SNF vs , disposition planning. Encourage pt to strengthen Relative CAMILLE on Chronic kidney disease III, present on admission, stable Baseline Cr around 1.2-1.3 during this admission, previous baseline around 1.1 prior. Likely she is at a stable baseline - UA / urine protein creatinine ratio exhibited significant nephropathy likely diabetic - Discontinue EMILY due to renal intolerance, d/w Nephro curbside - BUN/Cr did not improve much with supplemental IVF - Advised pt to drink >2.5L fluids daily Constipation, not present on admission, acute on chronic Likely due to low mobility and depressed PO intake, Crohns disease at baseline, opiates also contributory - Begin daily bowel regimen (conservative), no fiber or laxatives due to crohn's disease Cystitis, acute on chronic, present on admission, resolved and now recurred & resolved Previously patient had evidence of Urogenital sepsis on admission, treated with broad spectrum antibiotics and a urine culture did not grow a pathogen. Pt has history of outpt Ciprofloxacin regimen, not currently taking per history and records. - 05/07 symptoms of encephalopathy, abdominal pain and polyuria, slowly improving - Urine culture grew Apollo levy susceptible to Cipro which she has tolerated well in the past - Completed 3 day course of Abx, cefepime & ciprofloxacin, monitor for symptoms including encephalopathy Type 2 diabetes mellitus uncontrolled, POA, chronic. -Glargine reduced on 04/27, discontinued on 04/28 -Sliding scale as needed plus lantus -F/u outpt for monitoring and/or oral medicines with pcp Decreased oral intake, not POA. Likely related to chronic disease (inflammatory) and decreased appetite from acute illness - Encourage food and fluid - No advance feeding interventions ?? Cardiac Focal wall motion abnormality, present on admission, active Echo 04/21 exhibited area of wall motion abnormality, EF 50% (WNL). Seen by cardiology, recommended optimal medical management with outpt f/u - Continue Betablocker, statin, EMILY, apixaban - Recommend F/u outpt with cardiology in 2-3 weeks after discharge for f/u echo and evaluation ?? Atrial fibrillation with rapid ventrilcular response ,??present on admission, chronic. RVR has Resolved. [id number] score of at least 4. No Afib notable on most recent Peggy patch outpatient -Continue her ambulatory diltiazem XR 240 mg and Apixaban Hypokalemia with Hypomagnesemia, not present on admission. Resolved. - Replete both electrolytes as needed. Likely secondary to diarrheal losses. Chronic anemia,??present on admission, stable.?? Iron profile is compatible with anemia of chronic disease. Recommend Outpatient colonoscopy Hypothyroidism, poa, chronic. Resumed Levothyroxine po 05/13 Respiratory distress, present on admission. Resolved. Metabolic acidosis with respiratory partial compensation, not present on admission. Resolved. CAMILLE, acute, present on admission. Resolved. Diarrhea, not present on admission, Resolved. Partly due to Crohn's Sepsis, acute, present on admission. Resolved. Body jerking,??present on admission. Resolved. VTE Prophylaxis: Apixaban Code Status: Full code Disposition: Waiting for SNF vs approval. Current Hospital Medications Allergies Allergies Allergen Reactions ??? Bactrim [Sulfamethoxazole-Trimethoprim] Swelling ??? Betadine [Povidone-Iodine] ??? Fish Derived ??? Iodine ??? Other [place] products ??? Shellfish Containing Products Medications Scheduled apixaban, 5 mg, oral, BID atorvastatin, 40 mg, oral, Nightly carvediloL, 6.25 mg, oral, BID with meals diltiazem CD, 240 mg, oral, Daily insulin glargine, 6 Units, subcutaneous, Nightly insulin lispro, 0-5 Units, subcutaneous, Nightly insulin lispro, 0-6 Units, subcutaneous, TID with meals lactobacillus rhamnosus GG, 1 capsule, oral, Daily levothyroxine, 75 mcg, oral, q AM AC magnesium chloride, 1 tablet, oral, Daily with breakfast magnesium sulfate, 2 g, intravenous, Once miconazole, , Topical, BID pantoprazole, 40 mg, oral, q AM AC predniSONE, 5 mg, oral, Daily senna, 1 tablet, oral, BID sertraline, 25 mg, oral, Nightly sulfaSALAzine, 1,000 mg, oral, BID As needed ??? acetaminophen ??? dextrose 50% (D50W) ??? diazePAM ??? diphenhydrAMINE ??? HYDROcodone-acetaminophen ??? lidocaine ??? Insert peripheral IV AND lidocaine AND Maintain IV access AND Saline lock IV AND sodium chloride ??? Insert peripheral IV AND lidocaine AND Maintain IV access AND Saline lock IV AND sodium chloride ??? Insert peripheral IV AND lidocaine AND Maintain IV access AND Saline lock IV AND sodium chloride ??? naloxone ??? ondansetron ??? ondansetron ??? ondansetron ODT ??? promethazine ??? [COMPLETED] Prepare/Crossmatch RBC: 1 Units AND [COMPLETED] Transfuse RBC: 1 Units AND [COMPLETED] Nursing communication: Ensure provider has obtained Informed Consent for Blood Transfusion AND Vital Signs AND sodium chloride AND [COMPLETED] Nursing Communication: Transfusion Reaction Management ??? sodium chloride Infusions Subjective Patient's Update Patient feels so-so. She describes her nausea seemed random and not triggered by food or medicines. She woke up with it but did not vomit. She is agreeable to a home health option on [facility], understands it may not be the safest option or provide the most help Interval Update No overnight events Objective BP 129/81 (BP Location: Right arm, Patient Position: Semi-Mims's) Pulse 77 Temp 36.4 ??C (97.6 ??F) (Oral) Resp 18 Ht 1.524 m Wt 76.1 kg SpO2 98% BMI 32.77 kg/m?? Intake/Output Summary (Last 24 hours) at 05/14/2021 0818 Last data filed at 05/13/2021 2342 Gross per 24 hour Intake ??? Output 50 ml Net -50 ml Physical Exam Vitals and nursing note reviewed. Constitutional: General: She is not in acute distress. Appearance: She is obese. She is ill-appearing (chronically). She is not diaphoretic. Eyes: Extraocular Movements: Extraocular movements intact. Cardiovascular: Rate and Rhythm: Normal rate. Pulses: Normal pulses. Pulmonary: Effort: Pulmonary effort is normal. No respiratory distress. Breath sounds: No stridor. Abdominal: General: Abdomen is flat. Tenderness: There is no guarding. Musculoskeletal: General: Tenderness and signs of injury (bilateral wounds, wrapped clean dry and intact) present.Normal range of motion. Cervical back: Neck supple. Right lower leg: No edema. Left lower leg: No edema. Skin: General: Skin is warm and dry. Capillary Refill: Capillary refill takes less than 2 seconds. Coloration: Skin is pale. Neurological: General: No focal deficit present. Mental Status: She is alert and oriented to person, place, and time. Motor: Weakness present. Psychiatric: Behavior: Behavior normal. Comments: Labile mood Flat affect Labs and ECG Hematology Results from last 7 days Lab Units 05/13/21 0809 05/11/21 0550 05/10/21 0640 WBC AUTO x10e3/uL 6.4 6.3 7.7 HEMOGLOBIN g/dL 9.3* 8.5* 8.9* HEMATOCRIT % 30.9* 29.5* 30.8* MCV fL 84 88 87 PLATELETS AUTO x10e3/uL 222 217 221 Chemistries Results from last 7 days Lab Units 05/13/21 0809 05/12/21 0522 05/11/21 0550 05/10/21 0640 05/10/21 0640 SODIUM mmol/L 134 136 138 < > 141 POTASSIUM mmol/L 4.3 4.3 4.0 < > 3.9 CHLORIDE mmol/L 99 103 103 < > 103 CO2 mmol/L 26 26 28 < > 26 BUN mg/dL 12.0 11.0 11.0 < > 11.0 CREATININE mg/dL 1.34* 1.40* 1.56* < > 1.45* GLUCOSE mg/dL 117* 129* 203* < > 96 CALCIUM, SERUM mg/dL 8.5 8.4* 8.2* < > 8.3* MAGNESIUM mg/dL 1.8 1.5* 1.7 < > 1.9 ALBUMIN g/dL -- -- 2.6* -- 3.0* < > = values in this interval not displayed. Estimated Creatinine Clearance: 34.1 mL/min (A) (by C-G formula based on SCr of 1.34 mg/dL (H)). Urinalysis Microbiology Urine culture Apollo Orozco 05/05 and 05/07 Diagnostic Imaging Imaging results: XR CHEST [address] [place]. [address] PATIENT NAME: SHIRIN AGUILLON : 1945 GENDER: F EXAM DATE: 04/23/2021 16:33 ORDERED FROM: [facility] ORDERING PHYSICIAN: JORDAN RAMSEY CC: -- - - - CONTRAST: READING STATION ID: [id number] mGy: PROCEDURE: XR CHEST 1 VIEW INDICATIONS: Dobhoff placement - in place TECHNIQUE: One view of the chest was acquired. COMPARISON: [facility], , XR CHEST 1 VIEW, 04/22/2021, 15:54. FINDINGS: Surgical changes and devices: Dobbhoff tube tip is in distal stomach lumen below the right hemidiaphragm. Fusion hardware in lumbar spine is seen. Lungs and pleura: Pulmonary vascular congestion is seen. No significant pleural effusion or gross pneumothorax. Mild pulmonary edema is seen. Mediastinum: Mediastinal contours appear normal. Heart size is enlarged. Bones and chest wall: No suspicious bony lesions. Overlying soft tissues appear unremarkable. IMPRESSION: Dobbhoff tube tip is in the region of distal stomach lumen below the right hemidiaphragm. No free air under the diaphragm. Mild pulmonary vascular congestion. No gross pneumothorax. Reviewed by: Jacinto Rodriguez M.D. on 04/23/2021 at 16:54 Approved by: Jacinto Rodriguez M.D. on 04/23/2021 at 16:57 ECHOCARDIOGRAM COMPLETE Version: 1 Study ID: [id number] ?? [address] [address] Phone: ADULT ECHOCARDIOGRAM ?? Name: SHIRIN AGUILLON Study Date: 04/23/2021, 7: 55 AM : 1945 BP: 147 / 80 mmHg Gender: Female Height: 60 in Age: 75 Years Weight: 187.393 lb Pt. Location: [facility]^2008^2008-10 BSA: 1.82 m? Ordering: JORDAN RAMSEY [facility]: Carli Vasquez Reason For Study: Dyspnea History: Summary Statements This is a technically difficult study characterized by limited endocardial visualization. Next time recommend Definity echocontrast if possible. Normal sinus rhythm with occasional PAC's. Normal LV size and wall thickness. There is subtle mid-anterior hypokinesis, but normal wall motion otherwise. EF is 50-55%. Stage II diastolic dysfunction. Normal chamber sizes. Aortic sclerosis without stenosis. Otherwise no valvular abnormalities. Compared to prior study 09/2019, focal wall motion abnormality involving mid-anterior segment is newly described Electronically signed by: Lucinda Bahena M.D. 04/23/2021, 3: 19 PM Electronically signed by: Ricardo Griffin DO 05/14/2021 at 8:18 AM Portions of today's documentation have been created with the assistance of voice recognition software. Therefore, it may contain anomalous punctuation, anomalous independent misrecognitions, word substitutions, insertions or omissions. Occasional wrong-word or phonetically similar substitutions may also occur, all due to the inherent limitations of voice recognition software. Attempts to correct the above have been made by Ricardo Griffin DO but it is recommended that the chart be read carefully to recognize, using context, where the substitutions may have occurred. Associated attestation - Iron Lowry DO - 05/14/2021 7:02 PM PDT I saw and evaluated the patient, participating in the villarreal portions of the service. I reviewed the resident???s note. I agree with the resident???s findings and plan. Dispo planning with plans to pursue services. Care continues.Ricardo Griffin DO - 05/13/2021 8:17 PM PDT [facility] Progress Note Inpatient Primary Care [facility] Patient Name: Shirin Aguillon Date of : 1945 Age: 75 y.o. Code Status: Full Code Primary Care Physician: Rogelio Braga MD Admitting Provider: Ana Maria Narvaez MD Attending Provider: Iron Lowry DO Admit Date: 04/15/2021 Date of Service: 05/13/2021 Hospital Day: 27 Assessment and Plan Shirin Aguillon is a 75 y.o. female anticoagulated with Eliquis??with a hx notable for type II diabetes mellitus, hypertension, hyperlipidemia, CKD, and rheumatoid arthritis??who presents to the ED??for evaluation of altered mental status and found to be in CAMILLE with hyperkalemia. Patient was treatedwith temporary hemodialysis and course of antibiotics for sepsis. Currently being treated for failure to thrive and deconditioning, autoimmune disease with bilateral lower extremity wounds. Discharge planning: - Working with SW for LTC placement options - Pt has active family support however some live on [facility] (water taxi but no ferry service). Family was planning to move, collectively, to [facility] within next few months - discontinued levocarnitine, concern for causing nausea - resumed levothyroxine Soft tissue ulcerated wounds of bilateral lower extremities, POA. Improving. 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 Patient reports she developed these wounds following an allergic reaction to TMP-SMX. She was followed by Rheumatology for this; previously on Xeljanz, Leflunomide and Sulfasalazine for Crohn's and seronegative RA. Followed by Dr Shepherd. Pt reports another [employer] sales consultant switched her to Prednisone daily however I am not able to view these records - S/p bilateral calf wound debridement per GS, Micro positive for light growth pseudomonas and zenaida albicans - Continue wound care, wound consult team following; appreciate their excellent care and recommendations. Examined 05/07, no evidence of subcutaneous infection. See media tab - treatment of presumed autoimmune etiology and diabetes - conservative pain control. OK for 2 [place] ~30m prior to wound dressing changes - Recommend Referral to Gen Surg for outpatient Biopsy Prednisone therapy for inflammatory bowel disease and rheumatoid arthritis, present on admission, active - continue outpt Steroids oral Prednisone - Previously on Xeljanz, Leflunomide And Sulfasalazine. Reportedly discontinued this recently for prednisone and also discontinued outpatient Cipro for recurrent UTis - Discussed with Dr Shepherd Rheumatology 05/07, pt safe to resume Sulfasalazine for Crohn's. Presumably the ulcers are from IBD however not safe to resume xeljanz and leflunomide due to infection - Recommend F/u with outpt rheumatology outpt for mgmt Depression, not present on admission, active Unclear if this is acute on chronic, may be related to adjustment disorder due to prolonged hospitalization and difficulty with placement, separation from family, decreased functional status and need for increased care. Differential includes bipolar depression, major depression - Pt often tearful for multiple days, with elated mood when family visit - Continue sertraline low dose. Reviewed & Does not interact with pt's other medicines - discontinue levocarnitine, may have been causing nausea Weakness, Fatigue & Deconditioning, POA, improving - Functional status prior to admission:??Ambulates with a walker, stair chair at home, few stairs onher own. - Continue Physical therapy; recommending rehabilitation - SNF planning - Previously at [facility], awaiting review by Patricia at [facility], appreciate her help Relative CAMILLE on Chronic kidney disease III, present on admission, stable Baseline Cr around 1.2-1.3 during this admission, previous baseline around 1.1 prior. Likely she is at a stable baseline - UA / urine protein creatinine ratio exhibited significant nephropathy likely diabetic - Discontinue EMILY due to renal intolerance, d/w Nephro curbside - BUN/Cr did not improve much with supplemental IVF - Advised pt to drink >2.5L fluids daily Constipation, not present on admission, acute on chronic Likely due to low mobility and depressed PO intake, Crohns disease at baseline, opiates also contributory - Begin daily bowel regimen (conservative), no fiber or laxatives due to crohn's disease Cystitis, acute on chronic, present on admission, resolved and now recurred & resolved Previously patient had evidence of Urogenital sepsis on admission, treated with broad spectrum antibiotics and a urine culture did not grow a pathogen. Pt has history of outpt Ciprofloxacin regimen, not currently taking per history and records. - 05/07 symptoms of encephalopathy, abdominal pain and polyuria, slowly improving - Urine culture grew Apollo levy susceptible to Cipro which she has tolerated well in the past - Completed 3 day course of Abx, cefepime & ciprofloxacin, monitor for symptoms including encephalopathy Type 2 diabetes mellitus uncontrolled, POA, chronic. -Glargine reduced on 04/27, discontinued on 04/28 -Sliding scale as needed plus lantus -F/u outpt for monitoring and/or oral medicines with pcp Decreased oral intake, not POA. Likely related to chronic disease (inflammatory) and decreased appetite from acute illness - Encourage food and fluid - No advance feeding interventions ?? Cardiac Focal wall motion abnormality, present on admission, active Echo 04/21 exhibited area of wall motion abnormality, EF 50% (WNL). Seen by cardiology, recommended optimal medical management with outpt f/u - Continue Betablocker, statin, EMILY, apixaban - Recommend F/u outpt with cardiology in 2-3 weeks after discharge for f/u echo and evaluation ?? Atrial fibrillation with rapid ventrilcular response ,??present on admission, chronic. RVR has Resolved. [id number] score of at least 4. No Afib notable on most recent Peggy patch outpatient -Continue her ambulatory diltiazem XR 240 mg and Apixaban Hypokalemia with Hypomagnesemia, not present on admission. Resolved. - Replete both electrolytes as needed. Likely secondary to diarrheal losses. Chronic anemia,??present on admission, stable.?? Iron profile is compatible with anemia of chronic disease. Recommend Outpatient colonoscopy Hypothyroidism, poa, chronic. Resumed Levothyroxine po 05/13 Respiratory distress, present on admission. Resolved. Metabolic acidosis with respiratory partial compensation, not present on admission. Resolved. CAMILLE, acute, present on admission. Resolved. Diarrhea, not present on admission, Resolved. Partly due to Crohn's Sepsis, acute, present on admission. Resolved. Body jerking,??present on admission. Resolved. VTE Prophylaxis: Apixaban Code Status: Full code Disposition: Waiting for [facility] bed approval. Current Hospital Medications Allergies Allergies Allergen Reactions ??? Bactrim [Sulfamethoxazole-Trimethoprim] Swelling ??? Betadine [Povidone-Iodine] ??? Fish Derived ??? Iodine ??? Other [place] products ??? Shellfish Containing Products Medications Scheduled apixaban, 5 mg, oral, BID atorvastatin, 40 mg, oral, Nightly carvediloL, 6.25 mg, oral, BID with meals diltiazem CD, 240 mg, oral, Daily insulin glargine, 6 Units, subcutaneous, Nightly insulin lispro, 0-5 Units, subcutaneous, Nightly insulin lispro, 0-6 Units, subcutaneous, TID with meals lactobacillus rhamnosus GG, 1 capsule, oral, Daily [START ON 05/14/2021] levothyroxine, 75 mcg, oral, q AM AC magnesium chloride, 1 tablet, oral, Daily with breakfast magnesium sulfate, 2 g, intravenous, Once miconazole, , Topical, BID pantoprazole, 40 mg, oral, q AM AC predniSONE, 5 mg, oral, Daily senna, 1 tablet, oral, BID sertraline, 25 mg, oral, Nightly sulfaSALAzine, 1,000 mg, oral, BID As needed ??? acetaminophen ??? dextrose 50% (D50W) ??? diazePAM ??? diphenhydrAMINE ??? HYDROcodone-acetaminophen ??? lidocaine ??? Insert peripheral IV AND lidocaine AND Maintain IV access AND Saline lock IV AND sodium chloride ??? Insert peripheral IV AND lidocaine AND Maintain IV access AND Saline lock IV AND sodium chloride ??? Insert peripheral IV AND lidocaine AND Maintain IV access AND Saline lock IV AND sodium chloride ??? naloxone ??? ondansetron ??? ondansetron ??? ondansetron ODT ??? promethazine ??? [COMPLETED] Prepare/Crossmatch RBC: 1 Units AND [COMPLETED] Transfuse RBC: 1 Units AND [COMPLETED] Nursing communication: Ensure provider has obtained Informed Consent for Blood Transfusion AND Vital Signs AND sodium chloride AND [COMPLETED] Nursing Communication: Transfusion Reaction Management ??? sodium chloride Infusions Subjective Patient's Update Patient feels better mood lewis today. She states her family is coming to visit. Denies any issues with eating, drinking, peeing or stool. Pt remarks she feels we are progressing. Interval Update No overnight events Objective BP 110/73 (BP Location: Right arm, Patient Position: Semi-Mims's) Pulse 88 Temp 36.4 ??C (97.6 ??F) (Oral) Resp 18 Ht 1.524 m Wt 75.4 kg SpO2 94% BMI 32.46 kg/m?? No intake or output data in the 24 hours ending 05/13/212017 Physical Exam Vitals and nursing note reviewed. Constitutional: General: She is not in acute distress. Appearance: She is obese. She is ill-appearing (chronically). She is not diaphoretic. Eyes: Extraocular Movements: Extraocular movements intact. Cardiovascular: Rate and Rhythm: Normal rate. Pulses: Normal pulses. Pulmonary: Effort: Pulmonary effort is normal. No respiratory distress. Breath sounds: No wheezing, rhonchi or rales. Abdominal: General: Abdomen is flat. Tenderness: There is abdominal tenderness. Musculoskeletal: General: Tenderness and signs of injury (bilateral wounds, wrapped clean dry and intact) present.Normal range of motion. Cervical back: Neck supple. Right lower leg: No edema. Left lower leg: No edema. Skin: General: Skin is warm and dry. Capillary Refill: Capillary refill takes less than 2 seconds. Coloration: Skin is pale. Neurological: General: No focal deficit present. Mental Status: She is alert and oriented to person, place, and time. Motor: Weakness present. Psychiatric: Behavior: Behavior normal. Comments: Labile mood Flat affect Labs and ECG Hematology Results from last 7 days Lab Units 05/13/21 0809 05/11/21 0550 05/10/21 0640 WBC AUTO x10e3/uL 6.4 6.3 7.7 HEMOGLOBIN g/dL 9.3* 8.5* 8.9* HEMATOCRIT % 30.9* 29.5* 30.8* MCV fL 84 88 87 PLATELETS AUTO x10e3/uL 222 217 221 Chemistries Results from last 7 days Lab Units 05/13/21 0809 05/12/21 0522 05/11/21 0550 05/10/21 0640 05/10/21 0640 SODIUM mmol/L 134 136 138 < > 141 POTASSIUM mmol/L 4.3 4.3 4.0 < > 3.9 CHLORIDE mmol/L 99 103 103 < > 103 CO2 mmol/L 26 26 28 < > 26 BUN mg/dL 12.0 11.0 11.0 < > 11.0 CREATININE mg/dL 1.34* 1.40* 1.56* < > 1.45* GLUCOSE mg/dL 117* 129* 203* < > 96 CALCIUM, SERUM mg/dL 8.5 8.4* 8.2* < > 8.3* MAGNESIUM mg/dL 1.8 1.5* 1.7 < > 1.9 ALBUMIN g/dL -- -- 2.6* -- 3.0* < > = values in this interval not displayed. Estimated Creatinine Clearance: 33.9 mL/min (A) (by C-G formula based on SCr of 1.34 mg/dL (H)). Urinalysis Results from last 7 days Lab Units 05/07/21 0352 COLOR, URINALYSIS Yellow CLARITY UA Turbid* SPECIFIC GRAVITY, URINALYSIS 1.025 PH, URINALYSIS pH 6.0 LEUKOCYTE ESTERASE, URINALYSIS Large* NITRITE, URINALYSIS Negative PROTEIN, URINALYSIS mg/dL 100 * GLUCOSE, URINALYSIS mg/dL Negative KETONES, URINALYSIS mg/dL Negative UROBILINOGEN, URINALYSIS EU/dL 0.2 (Normal) BILIRUBIN, URINALYSIS Negative BLOOD, URINALYSIS Moderate* RBC, URINALYSIS /HPF 3-10* WBC, URINALYSIS /HPF 11-50* BACTERIA, URINALYSIS /HPF Moderate* SQUAMOUS EPITHELIAL CELLS, URINE /HPF Occasional Microbiology Urine culture Hafnia Alvei 05/05 and 05/07 Diagnostic Imaging Imaging results: XR CHEST [address] [place]. [address] PATIENT NAME: SHIRIN AGUILLON : 1945 GENDER: F EXAM DATE: 04/23/2021 16:33 ORDERED FROM: [facility] ORDERING PHYSICIAN: JORDAN RAMSEY CC: -- - - - CONTRAST: READING STATION ID: [id number] mGy: PROCEDURE: XR CHEST 1 VIEW INDICATIONS: Dobhoff placement - in place TECHNIQUE: One view of the chest was acquired. COMPARISON: [facility], , XR CHEST 1 VIEW, 04/22/2021, 15:54. FINDINGS: Surgical changes and devices: Dobbhoff tube tip is in distal stomach lumen below the right hemidiaphragm. Fusion hardware in lumbar spine is seen. Lungs and pleura: Pulmonary vascular congestion is seen. No significant pleural effusion or gross pneumothorax. Mild pulmonary edema is seen. Mediastinum: Mediastinal contours appear normal. Heart size is enlarged. Bones and chest wall: No suspicious bony lesions. Overlying soft tissues appear unremarkable. IMPRESSION: Dobbhoff tube tip is in the region of distal stomach lumen below the right hemidiaphragm. No free air under the diaphragm. Mild pulmonary vascular congestion. No gross pneumothorax. Reviewed by: Jacinto Rodriguez M.D. on 04/23/2021 at 16:54 Approved by: Jacinto Rodriguez M.D. on 04/23/2021 at 16:57 ECHOCARDIOGRAM COMPLETE Version: 1 Study ID: [id number] ?? [address] [address] Phone: ADULT ECHOCARDIOGRAM ?? Name: SHIRIN AGUILLON Study Date: 04/23/2021, 7: 55 AM : 1945 BP: 147 / 80 mmHg Gender: Female Height: 60 in Age: 75 Years Weight: 187.393 lb Pt. Location: [facility]^2008^2008-10 BSA: 1.82 m? Ordering: JORDAN RAMSEY Referring: [facility] Clinician: Carli Vasquez Reason For Study: Dyspnea History: Summary Statements This is a technically difficult study characterized by limited endocardial visualization. Next time recommend Definity echocontrast if possible. Normal sinus rhythm with occasional PAC's. Normal LV size and wall thickness. There is subtle mid-anterior hypokinesis, but normal wall motion otherwise. EF is 50-55%. Stage II diastolic dysfunction. Normal chamber sizes. Aortic sclerosis without stenosis. Otherwise no valvular abnormalities. Compared to prior study 09/2019, focal wall motion abnormality involving mid-anterior segment is newly described Electronically signed by: Lucinda Bahena M.D. 04/23/2021, 3: 19 PM Electronically signed by: Ricardo Griffin DO 05/13/2021 at 8:18 PM Portions of today's documentation have been created with the assistance of voice recognition software. Therefore, it may contain anomalous punctuation, anomalous independent misrecognitions, word substitutions, insertions or omissions. Occasional wrong-word or phonetically similar substitutions may also occur, all due to the inherent limitations of voice recognition software. Attempts to correct the above have been made by Ricardo Griffin DO but it is recommended that the chart be read carefully to recognize, using context, where the substitutions may have occurred. Associated attestation - Iron Lowry DO - 05/13/2021 9:05 PM PDT I saw and evaluated the patient, participating in the villarreal portions of the service. I reviewed the resident???s note. I agree with the resident???s findings and plan.Karen Pryor RN - 05/13/2021 4:26 PM PDT [facility] Inpatient Wound Care Pt Name/Age/: Shirin Aguillon 75 y.o. 1945 Med. Record #: [id number] Date of Admission: 04/15/2021 Reason for Admission: Pressure injury of skin of right calf Follow up visit for inpatient wound consult r/t bilateral leg wounds Shirin Aguillon is a 75 y.o. female patient resting in bed. Patient has a past medical history ofAbdominal pain, Arthritis, Arthritis, rheumatoid (CMS/HCC), Chronic diarrhea, Delayed emergence fromgeneral anesthesia, Diabetes (CMS/HCC), Disorder, Gallbladder disease, H/O recurrent pneumonia, Hyper lipidemia, Hypertension, Kidney disease, Low back pain (ongoing), Migraine headache, Neuropathy, PONV (postoperative nausea and vomiting), Skin cancer, Thyroid disease, Tubular adenoma, UTI (urinary tract infection), and Weight loss, non-intentional. Per discussion with several Primary nurses, patient was not allowing wound care and asking for longer period of time between dressing changes due to her pain. Patient has very high anxiety about dressing changes and appears to do very well once moving through the wound care process. However, to help with the patient concerns, wound care orders have been changed to utilize a long-wearing foam that hopefully reduces dressing change frequency, and therefore patient anxiety/pain. Wound Care: Removed old dressings, cleansed wounds with NS, patted dry, applied skin prep to david wound tissue, applied Hydrofera Blue Ready foam, ABD pad, and kerlix gauze. Education: Educated patient on the new dressing, which she states she has used before. Reviewed the importance of regular wound care to prevent recurring infection. Updated wound orders: Pre-medicate patient. Pull back Hydrofera Blue Ready dressing and evaluate thecolor of the foam against patient's skin. If it is still blue, replace dressing and wait another 24 hrs before rechecking. If foam is white where it touches the wound, remove entire dressing. Cleanse with NS, wiping wound base gently with NS-moist gauze to remove fine layer of wound film. Apply skin prep to david wound, apply Hydrofera Blue Ready pad to cover wound and david skin. Cover with ABD and secure with kerlix gauzefrom base of toes to just below the knee. Secure with tape. Check dressing every three days for foamcolor changes. Replace at least every 5 days. Call Wound RN with questions on dressing use. Electronically signed by: Kaern Pryor RN 05/13/2021 4:26 PM Russell Brown LCSW - 05/13/2021 8:30 AM PDT SOCIAL WORK: PROGRESS NOTE Data: EMR reviewed. Pt is on day 27 for Problem List Items Addressed This Visit Musculoskeletal * (Principal) Pressure injury of skin of right calf Relevant Orders [facility] [place]. TEST - (Completed) Culture, Deep Abscess Aerobic&Anaerobic w/gram stain (Completed) Other Visit Diagnoses Acute renal failure, unspecified acute renal failure type (CMS/HCC) - Primary Hyperkalemia Sepsis due to skin infection ([facility]) Acute anemia Occult blood in stools Acute cystitis without hematuria Patient is medically stable for discharge at this time. Per discussion with provider, discharge needs include SNF. Social Work consults to coordinate theseservices have been ordered by physician at this time. -Per Isa at [facility] they have declined because pt used up their medicare days at [facility] and that their [employer] insurance thru her work is going away on MAY 30 2021 it's a little bit convoluted financially. -Per Marek at [facility] they have also declined because pt is needing termination clerk care. -[facility] has also declined. Barriers to Discharge Include: SNF acceptance Assessment: Not able to assess at this time. Plan: Anticipate patient to discharge home with in home support. PRECIPITATOR OPERATOR will continue to follow pt's clinical course. LYLE GoldsteinW Kristina Lewis PA - 05/12/2021 10:23 AM PDT General surgery came and examined wounds yesterday, please see note. No changes to wound care at this time, appropriate healing occurring. Due to patient's pain she will not tolerate minor bedside debridement and small amount of fibrinous exudate does not warrant operative debridement. Continue with Lauren with dressing changes to help with pain and local wound debridement/sloughing of fibrinous buildup. Please feel free to reach out to general surgery with any further wound concerns, we will sign off. Theresa Shrestha RD - 05/12/2021 9:40 AM PDT NUTRITION FOLLOW UP: ASSESS: 75 yo F admitted for sepsis and CAMILLE with hyperkalemia. Urine output improved, dialysis beingheld per notes. Pt s/p debridement of bilateral calf wound 04/18. Pt had a prolonged NPO status so Dobhoff was placed 04/22, TF was tolerated at goal. Pt pulled out NGT 04/25, tube feeds off. Diet advanced per ST 04/26. PO 0-75%; diet remains mechanical soft thin liquids. Per RN pt remains A&Ox1-2 with delayed responses, mild improvement in po intake. MD notes indicate no advance feeding interventions with decreased oral intake (04/30). Per SW notes pt likely to discharge to SNF soon, wound care consulted and has been seen before by wound (see previous notes). Spoke with pt 05/07 afternoon, states that she cannot have Ensure because she is allergic to it. She also reported that she does not like the Sami. Awaiting SNF acceptance. PMHX: Arthritis, T2DM, PNA, HLD, HTN, kidney disease, UTI LABS: reviewed. Bone Char Operator 1.40, Glu 129, ca 8.4, Mg 1.5 MEDS: Insulin, colace, magnesium chloride, senna GI: BM 05/09 SKIN: ulcer on R& L calf, stg 2 PI on coccyx CURRENT WT: 77.5 kg ( bed scale); BMI 33.37 kg/m2, IBW: 45.5 kg, admit wt: 72.4kg DIET: Mech soft, thin liq; 1:1 assist. PO 25-75% ESTIMATED NEEDS: CAMILLE, BMI, wounds Calories: 7049-1514 kcal/day (20-25 kcal/kg BW) Protein: 55-70 g/day (1.0-1.2 g/kg IBW) Fluids: 2125-2550ml/day (25-30 ml/kg) NUTRITION DIAGNOSIS: 1) Inadequate oral intake related to decreased ability to consume sufficient energy as evidenced by current NPO status.--IMPROVING 2) Increased kcal/pro needs related to increased nutrient demand as evidence by pt with multiple pressure injuries. --PERSISTS 3) Chew/swallow difficulty due to AMS as evidenced by modified diet texture per AU PAIR.--IMPROVING NUTRITION INTERVENTION: 1) Continue current diet per speech therapy. Consider tube feeding if in line with pt goals of care. 2) Pt reported that she does not like Sami at all and had two full cups of it on her bedside table.Will cancel Sami order. 3) Diabetes ed completed 05/10. MONITOR/EVALUATE: PO intake, diet tolerance, GI, wounds, labs, POC, nutrition status. Follow per high nutrition risk guidelines. Ricardo Rosa DO - 05/12/2021 7:52 AM PDT [facility] Progress Note Inpatient Primary Care [facility] Patient Name: Shirin Aguillon Date of : 1945 Age: 75 y.o. Code Status: Full Code Primary Care Physician: Rogelio Braga MD Admitting Provider: Ana Maria Narvaez MD Attending Provider: Denise Miller DO Admit Date: 04/15/2021 Date of Service: 05/12/2021 Hospital Day: 26 Assessment and Plan Shirin Aguillon is a 75 y.o. female anticoagulated with Eliquis??with a hx notable for type II diabetes mellitus, hypertension, hyperlipidemia, CKD, and rheumatoid arthritis??who presents to the ED??for evaluation of altered mental status and found to be in CAMILLE with hyperkalemia. Patient was treatedwith temporary hemodialysis and course of antibiotics for sepsis. Currently being treated for failure to thrive and deconditioning, autoimmune disease with bilateral lower extremity wounds. Discharge planning: - Working with SW for LTC placement options - Pt has good family support however they live on [facility] (water taxi but no ferry service). Family was planning to move, collectively, to [facility] within next few months Soft tissue ulcerated wounds of bilateral lower extremities, POA. Improving. 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 Patient reports she developed these wounds following an allergic reaction to TMP-SMX. She was followed by Rheumatology for this; previously on Xeljanz, Leflunomide and Sulfasalazine for Crohn's and seronegative RA. Followed by Dr Shepherd. Pt reports another [employer]mw sales consultant switched her to Prednisone daily however I am not able to view these records - S/p bilateral calf wound debridement per GS, Micro positive for light growth pseudomonas and zenaida albicans - Continue wound care, wound consult team following; appreciate their excellent care and recommendations. Examined 05/07, no evidence of subcutaneous infection. See media tab - treatment of presumed autoimmune etiology and diabetes - conservative pain control. OK for 2 [place] ~30m prior to wound dressing changes - Recommend Referral to Gen Surg for outpatient Biopsy Prednisone therapy for inflammatory bowel disease and rheumatoid arthritis, present on admission, active - continue outpt Steroids oral Prednisone - Previously on Xeljanz, Leflunomide And Sulfasalazine. Reportedly discontinued this recently for prednisone and also discontinued outpatient Cipro for recurrent UTis - Discussed with Dr Shepherd Rheumatology 05/07, pt safe to resume Sulfasalazine for Crohn's. Presumably the ulcers are from IBD however not safe to resume xeljanz and leflunomide due to infection - Recommend F/u with outpt rheumatology outpt for mgmt Depression, not present on admission, active Unclear if this is acute on chronic, may be related to adjustment disorder due to prolonged hospitalization and difficulty with placement, separation from family, decreased functional status and need for increased care. Differential includes bipolar depression, major depression - Pt often tearful for multiple days, with elated mood when family visit - Continue sertraline low dose. Reviewed & Does not interact with pt's other medicines - Continue levocarnitine supplements low dose. Monitor for side effects due to CKD Weakness, Fatigue & Deconditioning, POA, improving - Functional status prior to admission:??Ambulates with a walker, stair chair at home, few stairs onher own. - Continue Physical therapy; recommending rehabilitation - SNF planning - Previously at [facility], awaiting review by Patricia at [facility], appreciate her help Relative CAMILLE on Chronic kidney disease III, present on admission, stable Baseline Cr around 1.2-1.3 during this admission, previous baseline around 1.1 prior. Likely she is at a stable baseline - UA / urine protein creatinine ratio exhibited significant nephropathy likely diabetic - Discontinue EMILY due to renal intolerance, d/w Nephro curbside - BUN/Cr did not improve much with supplemental IVF - Advised pt to drink >2.5L fluids daily Constipation, not present on admission, acute on chronic Likely due to low mobility and depressed PO intake, Crohns disease at baseline, opiates also contributory - Begin daily bowel regimen (conservative), no fiber or laxatives due to crohn's disease Cystitis, acute on chronic, present on admission, resolved and now recurred & resolved Previously patient had evidence of Urogenital sepsis on admission, treated with broad spectrum antibiotics and a urine culture did not grow a pathogen. Pt has history of outpt Ciprofloxacin regimen, not currently taking per history and records. - 05/07 symptoms of encephalopathy, abdominal pain and polyuria, slowly improving - Urine culture grew Apollo levy susceptible to Cipro which she has tolerated well in the past - Completed 3 day course of Abx, cefepime & ciprofloxacin, monitor for symptoms including encephalopathy Type 2 diabetes mellitus uncontrolled, POA, chronic. -Glargine reduced on 04/27, discontinued on 04/28 -Sliding scale as needed plus lantus -F/u outpt for monitoring and/or oral medicines with pcp Decreased oral intake, not POA. Likely related to chronic disease (inflammatory) and decreased appetite from acute illness - Encourage food and fluid - No advance feeding interventions ?? Cardiac Focal wall motion abnormality, present on admission, active Echo 04/21 exhibited area of wall motion abnormality, EF 50% (WNL). Seen by cardiology, recommended optimal medical management with outpt f/u - Continue Betablocker, statin, EMILY, apixaban - Recommend F/u outpt with cardiology in 2-3 weeks after discharge for f/u echo and evaluation ?? Atrial fibrillation with rapid ventrilcular response ,??present on admission, chronic. RVR has Resolved. [id number] score of at least 4. No Afib notable on most recent Peggy patch outpatient -Continue her ambulatory diltiazem XR 240 mg and Apixaban Hypokalemia with Hypomagnesemia, not present on admission. Resolved. - Replete both electrolytes as needed. Secondary to diarrheal losses. Chronic anemia,??present on admission, stable.?? Iron profile is compatible with anemia of chronic disease. Recommend Outpatient colonoscopy Respiratory distress, present on admission. Resolved. Metabolic acidosis with respiratory partial compensation, not present on admission. Resolved. CAMILLE, acute, present on admission. Resolved. Diarrhea, not present on admission, Resolved. Partly due to Crohn's Sepsis, acute, present on admission. Resolved. Body jerking,??present on admission. Resolved. VTE Prophylaxis: Apixaban Code Status: Full code Disposition: Waiting for SNF bed approval. Current Hospital Medications Allergies Allergies Allergen Reactions ??? Bactrim [Sulfamethoxazole-Trimethoprim] Swelling ??? Betadine [Povidone-Iodine] ??? Fish Derived ??? Iodine ??? Other [place] products ??? Shellfish Containing Products Medications Scheduled apixaban, 5 mg, oral, BID atorvastatin, 40 mg, oral, Nightly carvediloL, 6.25 mg, oral, BID with meals diltiazem CD, 240 mg, oral, Daily insulin glargine, 6 Units, subcutaneous, Nightly insulin lispro, 0-5 Units, subcutaneous, Nightly insulin lispro, 0-6 Units, subcutaneous, TID with meals lactobacillus rhamnosus GG, 1 capsule, oral, Daily levOCARNitine, 500 mg, oral, Daily magnesium chloride, 1 tablet, oral, Daily with breakfast magnesium sulfate, 2 g, intravenous, Once miconazole, , Topical, BID pantoprazole, 40 mg, oral, q AM AC [Held by provider] polyethylene glycol, 17 g, oral, Daily predniSONE, 5 mg, oral, Daily [Held by provider] psyllium, 1 packet, oral, Daily senna, 1 tablet, oral, BID sertraline, 25 mg, oral, Nightly sulfaSALAzine, 1,000 mg, oral, BID As needed ??? acetaminophen ??? dextrose 50% (D50W) ??? diazePAM ??? diphenhydrAMINE ??? HYDROcodone-acetaminophen ??? lidocaine ??? Insert peripheral IV AND lidocaine AND Maintain IV access AND Saline lock IV AND sodium chloride ??? Insert peripheral IV AND lidocaine AND Maintain IV access AND Saline lock IV AND sodium chloride ??? Insert peripheral IV AND lidocaine AND Maintain IV access AND Saline lock IV AND sodium chloride ??? naloxone ??? ondansetron ??? ondansetron ??? ondansetron ODT ??? [COMPLETED] Prepare/Crossmatch RBC: 1 Units AND [COMPLETED] Transfuse RBC: 1 Units AND [COMPLETED] Nursing communication: Ensure provider has obtained Informed Consent for Blood Transfusion AND Vital Signs AND sodium chloride AND [COMPLETED] Nursing Communication: Transfusion Reaction Management ??? sodium chloride Infusions Subjective Patient's Update Patient feels better mood lewis today. She states her family is coming to visit. Denies any issues with eating, drinking, peeing or stool. Pt remarks she feels we are progressing. Interval Update No overnight events Objective BP 123/64 (BP Location: Right arm, Patient Position: Lying) Pulse 71 Temp 36.7 ??C (98 ??F) (Oral) Resp 18 Ht 1.524 m Wt 77.5 kg SpO2 94% BMI 33.37 kg/m?? Intake/Output Summary (Last 24 hours) at 05/12/2021 0752 Last data filed at 05/11/2021 1900 Gross per 24 hour Intake ??? Output 275 ml Net -275 ml Physical Exam Vitals and nursing note reviewed. Constitutional: General: She is not in acute distress. Appearance: She is obese. She is ill-appearing (chronically). She is not diaphoretic. Eyes: Extraocular Movements: Extraocular movements intact. Cardiovascular: Rate and Rhythm: Normal rate. Pulses: Normal pulses. Pulmonary: Effort: Pulmonary effort is normal. No respiratory distress. Breath sounds: No wheezing, rhonchi or rales. Abdominal: General: Abdomen is flat. Tenderness: There is abdominal tenderness. Musculoskeletal: General: Tenderness and signs of injury (bilateral wounds, wrapped clean dry and intact) present.Normal range of motion. Cervical back: Neck supple. Right lower leg: No edema. Left lower leg: No edema. Skin: General: Skin is warm and dry. Capillary Refill: Capillary refill takes less than 2 seconds. Coloration: Skin is pale. Neurological: General: No focal deficit present. Mental Status: She is alert and oriented to person, place, and time. Motor: Weakness present. Psychiatric: Behavior: Behavior normal. Comments: Labile mood Flat affect Labs and ECG Hematology Results from last 7 days Lab Units 05/11/21 0550 05/10/21 0640 05/09/21 0657 WBC AUTO x10e3/uL 6.3 7.7 6.1 HEMOGLOBIN g/dL 8.5* 8.9* 8.3* HEMATOCRIT % 29.5* 30.8* 28.6* MCV fL 88 87 85 PLATELETS AUTO x10e3/uL 217 221 214 Chemistries Results from last 7 days Lab Units 05/12/21 0522 05/11/21 0550 05/10/21 0640 05/09/21 0657 05/09/21 0657 SODIUM mmol/L -- 138 141 -- 143 POTASSIUM mmol/L -- 4.0 3.9 -- 4.1 CHLORIDE mmol/L -- 103 103 -- 105 CO2 mmol/L -- 28 26 -- 30* BUN mg/dL -- 11.0 11.0 -- 12.0 CREATININE mg/dL -- 1.56* 1.45* -- 1.51* GLUCOSE mg/dL -- 203* 96 -- 96 CALCIUM, SERUM mg/dL -- 8.2* 8.3* -- 8.4* MAGNESIUM mg/dL 1.5* 1.7 1.9 < > 1.7 ALBUMIN g/dL -- 2.6* 3.0* -- -- < > = values in this interval not displayed. Estimated Creatinine Clearance: 29.6 mL/min (A) (by C-G formula based on SCr of 1.56 mg/dL (H)). Urinalysis Results from last 7 days Lab Units 05/07/21 0352 COLOR, URINALYSIS Yellow CLARITY UA Turbid* SPECIFIC GRAVITY, URINALYSIS 1.025 PH, URINALYSIS pH 6.0 LEUKOCYTE ESTERASE, URINALYSIS Large* NITRITE, URINALYSIS Negative PROTEIN, URINALYSIS mg/dL 100 * GLUCOSE, URINALYSIS mg/dL Negative KETONES, URINALYSIS mg/dL Negative UROBILINOGEN, URINALYSIS EU/dL 0.2 (Normal) BILIRUBIN, URINALYSIS Negative BLOOD, URINALYSIS Moderate* RBC, URINALYSIS /HPF 3-10* WBC, URINALYSIS /HPF 11-50* BACTERIA, URINALYSIS /HPF Moderate* SQUAMOUS EPITHELIAL CELLS, URINE /HPF Occasional Microbiology Urine culture Hafnia Alvei 05/05 and 05/07 Diagnostic Imaging Imaging results: XR CHEST 1 VIEW [place], [place]. [id number] PATIENT NAME: SHIRIN AGUILLON : 1945 GENDER: F EXAM DATE: 04/23/2021 16:33 ORDERED FROM: [facility] ORDERING PHYSICIAN: JORDAN RAMSEY CC: -- - - - CONTRAST: READING STATION ID: [id number] mGy: PROCEDURE: XR CHEST 1 VIEW INDICATIONS: Dobhoff placement - in place TECHNIQUE: One view of the chest was acquired. COMPARISON: [facility], CR, XR CHEST 1 VIEW, 04/22/2021, 15:54. FINDINGS: Surgical changes and devices: Dobbhoff tube tip is in distal stomach lumen below the right hemidiaphragm. Fusion hardware in lumbar spine is seen. Lungs and pleura: Pulmonary vascular congestion is seen. No significant pleural effusion or gross pneumothorax. Mild pulmonary edema is seen. Mediastinum: Mediastinal contours appear normal. Heart size is enlarged. Bones and chest wall: No suspicious bony lesions. Overlying soft tissues appear unremarkable. IMPRESSION: Dobbhoff tube tip is in the region of distal stomach lumen below the right hemidiaphragm. No free air under the diaphragm. Mild pulmonary vascular congestion. No gross pneumothorax. Reviewed by: Jacinto Rodriguez M.D. on 04/23/2021 at 16:54 Approved by: Jacinto Rodriguez M.D. on 04/23/2021 at 16:57 ECHOCARDIOGRAM COMPLETE Version: 1 Study ID: [id number] ?? [address] [address] Phone: ADULT ECHOCARDIOGRAM ?? Name: SHIRIN AGUILLON Study Date: 04/23/2021, 7: 55 AM : 1945 BP: 147 / 80 mmHg Gender: Female Height: 60 in Age: 75 Years Weight: 187.393 lb Pt. Location: [facility]^2008^2008-10 BSA: 1.82 m? Ordering: JORDAN RAMSEY Referring: Leon Hospitalist Clinician: Carli Vasquez Reason For Study: Dyspnea History: Summary Statements This is a technically difficult study characterized by limited endocardial visualization. Next time recommend Definity echocontrast if possible. Normal sinus rhythm with occasional PAC's. Normal LV size and wall thickness. There is subtle mid-anterior hypokinesis, but normal wall motion otherwise. EF is 50-55%. Stage II diastolic dysfunction. Normal chamber sizes. Aortic sclerosis without stenosis. Otherwise no valvular abnormalities. Compared to prior study 09/2019, focal wall motion abnormality involving mid-anterior segment is newly described Electronically signed by: Lucinda Bahena M.D. 04/23/2021, 3: 19 PM Electronically signed by: Ricardo Griffin DO 05/12/2021 at 7:52 AM Portions of today's documentation have been created with the assistance of voice recognition software. Therefore, it may contain anomalous punctuation, anomalous independent misrecognitions, word substitutions, insertions or omissions. Occasional wrong-word or phonetically similar substitutions may also occur, all due to the inherent limitations of voice recognition software. Attempts to correct the above have been made by Ricardo Griffin DO but it is recommended that the chart be read carefully to recognize, using context, where the substitutions may have occurred. Associated attestation - Denise Miller DO - 05/12/2021 11:05 PM PDT I saw and evaluated the patient, participating in the villarreal portions of the service. I reviewed the resident???s note. I agree with the resident???s findings and plan.Ángela Talley, HEAD CHAR FILTER TANK TENDER - 05/11/2021 6:54 PM PDT Inpatient Physical Therapy Treatment Note Patient Name: Shirin Aguillon MR#: [id number] Today's Date: 05/11/2021 PT Last Visit PT Received On: 05/11/21 HEAD CHAR FILTER TANK TENDER Visit Count: 6 Precautions General Precautions: (B) calf wounds; sacral wound; low motivation Subjective: Cognition Orientation Level: Oriented X4 Safety Judgment: Good awareness of safety precautions Cognition Comments: tearful, concerned about changes to living arrangements Pain Assessment Pain Assessment: 0-10 Pain Score: (did not rate, requested meds) Objective/Interventions: Mobility Rolling: Modified independent with railing Supine to Sit: Minimal assistance (OVER HAULER HELPER to trunk) Sit to Supine: Stand by assistance, Modified independent with railing Sit to Stand: Stand by assistance Sit-Stand Devices Used: Front wheeled walker Stand to Sit: Stand by assistance Stand-Sit Devices Used: Front wheeled walker Stand Pivot Transfers: Stand by assistance Stand Pivot: Devices Used: Front wheeled walker Ambulation: Stand by assistance (despite confines of tight space, obstacles) Ambulation: Devices Used: Front wheeled walker Ambulation Distance (Feet): 10 Feet Sitting Balance: Stand by assistance Standing Balance: Stand by assistance (w/FWW) Goals and Progress: Plan Assessment: Pt agreeable to activity, although she c/o (B) LE and 'rear end' pain. Pt also reportedmissing her , and became tearful at several points, reporting fear of changes to living arrangements, wanting only to be home with . Pt demonstrated Jorge OOB, OVER HAULER HELPER to complete upright to trunk and aid rolling scoot to EOB. STS and SPT SBA w/FWW; gait w/FWW SBA 10 ft around room. Pt demo'd bridge to enable scooting over and up in bed, w/partial success. Tearful episodes and situational distress as well as pain to (B) calves and sacrum limiting activity tolerance, however pt demonstrated improved mobility and participation. Continue to recommend 24/7 care w/assist for all mobility and daily PT/OT to progress to previous modified (I) LOF. Treatment/Interventions: Bed mobility, Equipment eval/education, Functional transfer training, Gait training, Endurance training Progress: Progressing toward goals Multidisciplinary Problems IP Therapy Problems (Active) Problem: Physical Therapy - Adult Goal Priority Disciplines By Discharge: Performs mobility at highest level of function for planned discharge setting. See evaluation for individualized goals. PT Description: 04/24/21 *pt to perform bed mobility with HOB flat, no rails and with stand-by assistance *pt to transfer with front wheeled walker with stand-by assistance *pt to ambulate 150 feet with front wheeled walker and with stand-by assistance *pt to ascend and descend 7 stairs with hand rail and with stand-by assistance in order to safely negotiate home environment Plan: Recommendation IP PT Status: 2 PT Frequency (in-house): 5-7/wk Post-discharge recommendation: 24 hour supervision/assist (daily PT) Discharge Transportation: [facility] PT Frequency upon discharge: Daily Kristina Lewis PA - 05/11/2021 5:33 PM PDT Daily Progress Note Name: Shirin Aguillon CSN/ Problem List: Principal Problem: Pressure injury of skin of right calf Admission Date: 04/15/2021 Length Of Stay: 25 Surgery Date/Procedure: 04/18/2021 23 Days Post-Op Procedure(s): debridement of bilateral calf wound Subjective Patient was seen at the request of the wound care nurse and nursing staff due to slow progression ofposterior calf wounds. Patient reports less pain than usual in wounds and that she is tolerating dressing changes better than she was before. No active oozing through dressings. Discussed case with Karen Pryor, wound care nurse who reports that dressings were changed yesterday, some fibrin was noted and a small scar in the right upper lateral wound. No acute changes and she is awaiting placement in a SNF once that becomes available. Review of Systems Constitutional: Negative for fever. Skin: Positive for wound. Negative for color change and rash. Psychiatric/Behavioral: Negative for agitation. Very anxious Objective Vital signs in last 24 hours: Temp: [36.8 ??C (98.2 ??F)-37 ??C (98.6 ??F)] 36.9 ??C (98.4 ??F) Heart Rate: [78-85] 85 Resp: [18] 18 BP: (99-126)/(63-79) 126/74 Intake/Output this shift: I/O this shift: In: - Out: 150 [Urine:150] Physical Exam: Physical Exam Vitals reviewed. Constitutional: Appearance: Normal appearance. She is obese. Cardiovascular: Rate and Rhythm: Normal rate. Pulmonary: Effort: Pulmonary effort is normal. Skin: General: Skin is warm. Coloration: Skin is not jaundiced. Findings: No bruising or erythema. Comments: Bilateral posterior calf wounds are examined, please refer to wound care nurse and photos taken yesterday, right calf wound with thin layer of fibrin noted over base of the wound with goodgranulation tissue just under this. Light gauze debridement was not well tolerated, there is a small approximately 1 cm by half centimeter eschar in the right upper lateral edge that patient did not tolerate light manipulation of. There is good wound contraction in reviewing of photos with epithelialization of the edges around the wound. Left anterior calf wound examined, similar fibrinous layer with slightly more drainage, no surrounding erythema, good control wound contracture and epithelialization, no eschars noted, intact periwound. Please refer to photos as mentioned above. Neurological: General: No focal deficit present. Mental Status: She is alert. Psychiatric: Mood and Affect: Mood normal. Behavior: Behavior normal. Thought Content: Thought content normal. Judgment: Judgment normal. Comments: Anxious, slightly weepy with removing dressing but tolerated dressing removal well Labs: Results from last 7 days Lab Units 05/11/21 0550 WBC AUTO x10e3/uL 6.3 HEMATOCRIT % 29.5* PLATELETS AUTO x10e3/uL 217 Results from last 7 days Lab Units 05/11/21 0550 SODIUM mmol/L 138 POTASSIUM mmol/L 4.0 CHLORIDE mmol/L 103 CO2 mmol/L 28 BUN mg/dL 11.0 GLUCOSE mg/dL 203* MAGNESIUM mg/dL 1.7 ANION GAP mmol/L 7 Diagnostics: Assessment/Plan Bilateral posterior calf wounds, approximately 3 weeks status post extensive OR debridement and withevaluation today in no acute debridement required. Would continue with local wound care and Medihoney to help debride fibrinous layer. Small eschar in the right calf should slough off. -Continue wound care with daily dressing changes and application of Medihoney and nonstick dressing,occlusive Vaseline gauze, wrapped with Kerlix -Agree with trying Silvadene if patch test for allergy is assessed, this could help with patient's level of discomfort and wound debridement if tolerated. Electronically signed by NEGRITA Chakraborty 05/11/2021 5:33 PM Time Spent: Russell Cantu LCSW - 05/11/2021 10:42 AM PDT SOCIAL WORK: PROGRESS NOTE Data: EMR reviewed. Pt is on day 25 for Problem List Items Addressed This Visit Musculoskeletal * (Principal) Pressure injury of skin of right calf Relevant Orders [facility] [place]. TEST - (Completed) Culture, Deep Abscess Aerobic&Anaerobic w/gram stain (Completed) Other Visit Diagnoses Acute renal failure, unspecified acute renal failure type (CMS/HCC) - Primary Hyperkalemia Sepsis due to skin infection (CMS/[facility]) Acute anemia Occult blood in stools Acute cystitis without hematuria Patient is medically stable for discharge at this time. Per discussion with provider, discharge needs include SNF. Social Work consults to coordinate theseservices have been ordered by physician at this time. PRECIPITATOR OPERATOR received message form March at [facility] that at this point they have to decline based on pt potential to be termination clerk care with her level of care needs. ADDENDUM: PRECIPITATOR OPERATOR spoke to spouse and would like PRECIPITATOR OPERATOR to make additional referral to [facility]. Barriers to Discharge Include: SNF acceptance Assessment: Not able to assess at this time. Plan: Anticipate patient to discharge to SNF if accepted. PRECIPITATOR OPERATOR will continue to follow pt's clinicalcourse. LYLE GoldsteinW Ricardo Rosa DO - 05/11/2021 8:27 AM PDT [facility] Progress Note Inpatient Primary Care [facility] Patient Name: Shirin Aguillon Date of : 1945 Age: 75 y.o. Code Status: Full Code Primary Care Physician: Rogelio Braga MD Admitting Provider: Ana Maria Narvaez MD Attending Provider: Denise Miller DO Admit Date: 04/15/2021 Date of Service: 05/11/2021 Hospital Day: 25 Assessment and Plan Shirin Aguillon is a 75 y.o. female anticoagulated with Eliquis??with a hx notable for type II diabetes mellitus, hypertension, hyperlipidemia, CKD, and rheumatoid arthritis??who presents to the ED??for evaluation of altered mental status and found to be in CAMILLE with hyperkalemia. Patient was treatedwith temporary hemodialysis and course of antibiotics for sepsis. Currently being treated for failure to thrive and deconditioning, autoimmune disease with bilateral lower extremity wounds. Discharge planning: - Pt preference is [facility] [place]. Declined due to extent of patient's needs - Working with SW for other LT care placement options - Pt has good family support however they live on [facility] (water taxi but no ferry service). Family was planning to move, collectively, to [facility] within next few months Soft tissue ulcerated wounds of bilateral lower extremities, POA. Improving. 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 Patient reports she developed these wounds following an allergic reaction to TMP-SMX. She was followed by Rheumatology for this; previously on Xeljanz, Leflunomide and Sulfasalazine for Crohn's and seronegative RA. Followed by Dr Shepherd. Pt reports another [employer] sales consultant switched her to Prednisone daily however I am not able to view these records - S/p bilateral calf wound debridement per GS, Micro positive for light growth pseudomonas and zenaida albicans - Continue wound care, wound consult team following; appreciate their excellent care and recommendations. Examined 05/07, no evidence of subcutaneous infection. See media tab - treatment of presumed autoimmune etiology and diabetes - conservative pain control - Recommend Referral to Gen Surg for outpatient Biopsy Prednisone therapy for inflammatory bowel disease and rheumatoid arthritis, present on admission, active - continue outpt Steroids oral Prednisone - Previously on Xeljanz, Leflunomide And Sulfasalazine. Reportedly discontinued this recently for prednisone and also discontinued outpatient Cipro for recurrent UTis - Discussed with Dr Shepherd Rheumatology 05/07, pt safe to resume Sulfasalazine for Crohn's. Presumably the ulcers are from IBD however not safe to resume xeljanz and leflunomide due to infection - Recommend F/u with outpt rheumatology outpt for mgmt Depression, not present on admission, active Unclear if this is acute on chronic, may be related to adjustment disorder due to prolonged hospitalization and difficulty with placement, separation from family, decreased functional status and need for increased care. Differential includes bipolar depression, major depression - Pt often tearful for multiple days, with elated mood when family visit - Begin sertraline low dose. Reviewed & Does not interact with pt's other medicines - Begin levocarnitine supplements low dose. Caution for side effects due to CKD Weakness, Fatigue & Deconditioning, POA, improving - Functional status prior to admission:??Ambulates with a walker, stair chair at home, few stairs onher own. - Continue Physical therapy; recommending rehabilitation - SNF planning - Previously at [facility], awaiting review by Patricia at [facility], appreciate her help Relative CAMILLE on Chronic kidney disease III, present on admission, stable Baseline Cr around 1.2-1.3 during this admission, previous baseline around 1.1 prior. Likely she is at a stable baseline - UA / urine protein creatinine ratio exhibited significant nephropathy likely diabetic - Discontinue EMILY due to renal intolerance, d/w Nephro curbside - BUN/Cr did not improve much with supplemental IVF - Advised pt to drink >2.5L fluids daily Constipation, not present on admission, acute on chronic Likely due to low mobility and depressed PO intake - Begin daily bowel regimen + laxatives until >1bm per day?? Cystitis, acute on chronic, present on admission, resolved and now recurred & resolved Previously patient had evidence of Urogenital sepsis on admission, treated with broad spectrum antibiotics and a urine culture did not grow a pathogen. Pt has history of outpt Ciprofloxacin regimen, not currently taking per history and records. 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 -Glargine reduced on 04/27, discontinued on 04/28 -Sliding scale as needed plus lantus -F/u outpt for monitoring and/or oral medicines with pcp Decreased oral intake, not POA. Likely related to chronic disease (inflammatory) and decreased appetite from acute illness - Encourage food and fluid - No advance feeding interventions ?? Cardiac Focal wall motion abnormality, present on admission, active Echo 04/21 exhibited area of wall motion abnormality, EF 50% (WNL). Seen by cardiology, recommended optimal medical management with outpt f/u - Continue Betablocker, statin, EMILY, apixaban - Recommend F/u outpt with cardiology in 2-3 weeks after discharge for f/u echo and evaluation ?? Atrial fibrillation with rapid ventrilcular response ,??present on admission, chronic. RVR has Resolved. [id number] score of at least 4. No Afib notable on most recent Peggy patch outpatient -Continue her ambulatory diltiazem XR 240 mg and Apixaban Hypokalemia with Hypomagnesemia, not present on admission. Resolved. - Replete both electrolytes as needed. Secondary to diarrheal losses. Chronic anemia,??present on admission, stable.?? Iron profile is compatible with anemia of chronic disease. Recommend Outpatient colonoscopy Respiratory distress, present on admission. Resolved. Metabolic acidosis with respiratory partial compensation, not present on admission. Resolved. CAMILLE, acute, present on admission. Resolved. Diarrhea, not present on admission, Resolved. Partly due to Crohn's Sepsis, acute, present on admission. Resolved. Body jerking,??present on admission. Resolved. VTE Prophylaxis: Apixaban Code Status: Full code Disposition: Waiting for SNF bed approval. Current Hospital Medications Allergies Allergies Allergen Reactions ??? Bactrim [Sulfamethoxazole-Trimethoprim] Swelling ??? Betadine [Povidone-Iodine] ??? Fish Derived ??? Iodine ??? Other [place] products ??? Shellfish Containing Products Medications Scheduled apixaban, 5 mg, oral, BID atorvastatin, 40 mg, oral, Nightly carvediloL, 6.25 mg, oral, BID with meals diltiazem CD, 240 mg, oral, Daily docusate sodium, 100 mg, oral, Daily insulin glargine, 6 Units, subcutaneous, Nightly insulin lispro, 0-5 Units, subcutaneous, Nightly insulin lispro, 0-6 Units, subcutaneous, TID with meals lactobacillus rhamnosus GG, 1 capsule, oral, Daily magnesium chloride, 1 tablet, oral, Daily with breakfast miconazole, , Topical, BID pantoprazole, 40 mg, oral, q AM AC [Held by provider] polyethylene glycol, 17 g, oral, Daily predniSONE, 5 mg, oral, Daily [Held by provider] psyllium, 1 packet, oral, Daily senna, 1 tablet, oral, BID sulfaSALAzine, 1,000 mg, oral, BID As needed ??? acetaminophen ??? dextrose 50% (D50W) ??? diazePAM ??? diphenhydrAMINE ??? HYDROcodone-acetaminophen ??? lidocaine ??? Insert peripheral IV AND lidocaine AND Maintain IV access AND Saline lock IV AND sodium chloride ??? Insert peripheral IV AND lidocaine AND Maintain IV access AND Saline lock IV AND sodium chloride ??? Insert peripheral IV AND lidocaine AND Maintain IV access AND Saline lock IV AND sodium chloride ??? naloxone ??? ondansetron ??? ondansetron ??? ondansetron ODT ??? [COMPLETED] Prepare/Crossmatch RBC: 1 Units AND [COMPLETED] Transfuse RBC: 1 Units AND [COMPLETED] Nursing communication: Ensure provider has obtained Informed Consent for Blood Transfusion AND Vital Signs AND sodium chloride AND [COMPLETED] Nursing Communication: Transfusion Reaction Management ??? sodium chloride Infusions dextrose 5 %-0.45 % sodium chloride, 75 mL/hr, Last Rate: 75 mL/hr (05/10/212049) Subjective Patient's Update Patient feels ok today, diarrhea improved/resolved. No pains at rest identified. Pt appetite remainslousy, adjusted to general diet Interval Update No overnight events Objective BP 125/79 (BP Location: Right arm, Patient Position: Semi-Mims's) Pulse 78 Temp 36.9 ??C (98.4 ??F) (Oral) Resp 18 Ht 1.524 m Wt 82.8 kg SpO2 95% BMI 35.65 kg/m?? Intake/Output Summary (Last 24 hours) at 05/11/2021 0827 Last data filed at 05/10/20212027 Gross per 24 hour Intake 1200 ml Output 450 ml Net 750 ml Physical Exam Vitals and nursing note reviewed. Constitutional: General: She is not in acute distress. Appearance: She is obese. She is ill-appearing (chronically). She is not diaphoretic. Eyes: Extraocular Movements: Extraocular movements intact. Cardiovascular: Rate and Rhythm: Normal rate. Pulses: Normal pulses. Pulmonary: Effort: Pulmonary effort is normal. No respiratory distress. Breath sounds: No wheezing, rhonchi or rales. Abdominal: General: Abdomen is flat. Tenderness: There is abdominal tenderness. Musculoskeletal: General: Tenderness and signs of injury (bilateral wounds, wrapped clean dry and intact) present.Normal range of motion. Cervical back: Neck supple. Right lower leg: No edema. Left lower leg: No edema. Skin: General: Skin is warm and dry. Capillary Refill: Capillary refill takes less than 2 seconds. Coloration: Skin is pale. Neurological: General: No focal deficit present. Mental Status: She is alert and oriented to person, place, and time. Motor: Weakness present. Psychiatric: Behavior: Behavior normal. Comments: Labile mood Flat affect Labs and ECG Hematology Results from last 7 days Lab Units 05/11/21 0550 05/10/21 0640 05/09/21 0657 WBC AUTO x10e3/uL 6.3 7.7 6.1 HEMOGLOBIN g/dL 8.5* 8.9* 8.3* HEMATOCRIT % 29.5* 30.8* 28.6* MCV fL 88 87 85 PLATELETS AUTO x10e3/uL 217 221 214 Chemistries Results from last 7 days Lab Units 05/11/21 0550 05/10/21 0640 05/09/21 0657 SODIUM mmol/L 138 141 143 POTASSIUM mmol/L 4.0 3.9 4.1 CHLORIDE mmol/L 103 103 105 CO2 mmol/L 28 26 30* BUN mg/dL 11.0 11.0 12.0 CREATININE mg/dL 1.56* 1.45* 1.51* GLUCOSE mg/dL 203* 96 96 CALCIUM, SERUM mg/dL 8.2* 8.3* 8.4* MAGNESIUM mg/dL 1.7 1.9 1.7 ALBUMIN g/dL 2.6* 3.0* -- Estimated Creatinine Clearance: 30.6 mL/min (A) (by C-G formula based on SCr of 1.56 mg/dL (H)). Urinalysis Results from last 7 days Lab Units 05/07/21 0352 COLOR, URINALYSIS Yellow CLARITY UA Turbid* SPECIFIC GRAVITY, URINALYSIS 1.025 PH, URINALYSIS pH 6.0 LEUKOCYTE ESTERASE, URINALYSIS Large* NITRITE, URINALYSIS Negative PROTEIN, URINALYSIS mg/dL 100 * GLUCOSE, URINALYSIS mg/dL Negative KETONES, URINALYSIS mg/dL Negative UROBILINOGEN, URINALYSIS EU/dL 0.2 (Normal) BILIRUBIN, URINALYSIS Negative BLOOD, URINALYSIS Moderate* RBC, URINALYSIS /HPF 3-10* WBC, URINALYSIS /HPF 11-50* BACTERIA, URINALYSIS /HPF Moderate* SQUAMOUS EPITHELIAL CELLS, URINE /HPF Occasional Microbiology Urine culture Hafnia Alvei 05/05 and 05/07 Diagnostic Imaging Imaging results: XR [address]ST [address] [place] [address] PATIENT NAME: SHIRIN AGUILLON : 1945 GENDER: F EXAM DATE: 04/23/2021 16:33 ORDERED FROM: [facility] ORDERING PHYSICIAN: JORDAN RAMSEY CC: -- - - - CONTRAST: READING STATION ID: [id number] mGy: PROCEDURE: XR CHEST 1 VIEW INDICATIONS: Dobhoff placement - in place TECHNIQUE: One view of the chest was acquired. COMPARISON: [facility], , XR CHEST 1 VIEW, 04/22/2021, 15:54. FINDINGS: Surgical changes and devices: Dobbhoff tube tip is in distal stomach lumen below the right hemidiaphragm. Fusion hardware in lumbar spine is seen. Lungs and pleura: Pulmonary vascular congestion is seen. No significant pleural effusion or gross pneumothorax. Mild pulmonary edema is seen. Mediastinum: Mediastinal contours appear normal. Heart size is enlarged. Bones and chest wall: No suspicious bony lesions. Overlying soft tissues appear unremarkable. IMPRESSION: Dobbhoff tube tip is in the region of distal stomach lumen below the right hemidiaphragm. No free air under the diaphragm. Mild pulmonary vascular congestion. No gross pneumothorax. Reviewed by: Jacinto Rodriguez M.D. on 04/23/2021 at 16:54 Approved by: Jacinto Rodriguez M.D. on 04/23/2021 at 16:57 ECHOCARDIOGRAM COMPLETE Version: 1 Study ID: [id number] ?? [address] [address] Phone: ADULT ECHOCARDIOGRAM ?? Name: SHIRIN AGUILLON Study Date: 04/23/2021, 7: 55 AM : 1945 BP: 147 / 80 mmHg Gender: Female Height: 60 in Age: 75 Years Weight: 187.393 lb Pt. Location: [facility]^2008^2008-10 BSA: 1.82 m? Ordering: JORDAN RAMSEY Referring: [facility] Hospitalist Clinician: Carli Vasquez Reason For Study: Dyspnea History: Summary Statements This is a technically difficult study characterized by limited endocardial visualization. Next time recommend Definity echocontrast if possible. Normal sinus rhythm with occasional PAC's. Normal LV size and wall thickness. There is subtle mid-anterior hypokinesis, but normal wall motion otherwise. EF is 50-55%. Stage II diastolic dysfunction. Normal chamber sizes. Aortic sclerosis without stenosis. Otherwise no valvular abnormalities. Compared to prior study 09/2019, focal wall motion abnormality involving mid-anterior segment is newly described Electronically signed by: Lucinda Bahena M.D. 04/23/2021, 3: 19 PM Electronically signed by: Ricardo Griffin DO 05/11/2021 at 8:27 AM Portions of today's documentation have been created with the assistance of voice recognition software. Therefore, it may contain anomalous punctuation, anomalous independent misrecognitions, word substitutions, insertions or omissions. Occasional wrong-word or phonetically similar substitutions may also occur, all due to the inherent limitations of voice recognition software. Attempts to correct the above have been made by Ricardo Griffin DO but it is recommended that the chart be read carefully to recognize, using context, where the substitutions may have occurred. Associated attestation - Denise Miller DO - 05/12/2021 7:35 AM PDT I saw and evaluated the patient 05/11/21, participating in the villarreal portions of the service. I reviewed the resident???s note. I agree with the resident???s findings and plan.Tatyana Hernandez RD - 05/10/2021 4:19 PM PDT NUTRITION FOLLOW UP: ASSESS: 75 yo F admitted for sepsis and CAMILLE with hyperkalemia. Urine output improved, dialysis beingheld per notes. Pt s/p debridement of bilateral calf wound 04/18. Pt had a prolonged NPO status so Dobhoff was placed 04/22, TF was tolerated at goal. Pt pulled out NGT 04/25, tube feeds off. Diet advanced per ST 04/26. PO 0-75%; diet remains mechanical soft thin liquids. Per RN pt remains A&Ox1-2 with delayed responses, mild improvement in po intake. MD notes indicate no advance feeding interventions with decreased oral intake (04/30). Per SW notes pt likely to discharge to SNF soon, wound care consulted and has been seen before by wound (see previous notes). Spoke with pt 05/07 afternoon, states that she cannot have Ensure because she is allergic to it, willing to try SAMI BID for wound healing now that renal labs appear to be stable (creat still elevated but <2.0). Today, pt reported that she does not like the Sami at all. PMHX: Arthritis, T2DM, PNA, HLD, HTN, kidney disease, UTI LABS: K+4.4, Bone Char Operator 1.51, Glu 134, Ca 8.2 MEDS: Insulin, colace, magnesium chloride, senna GI: BM 05/09 SKIN: ulcer on R& L calf, stg 2 PI on coccyx CURRENT WT: 76.1 kg (05/10, bed scale); BMI 32.8 kg/m2, IBW: 45.5 kg, admit wt: 72.4kg DIET: Mech soft, thin liq; PO 25-50% x7 meals ESTIMATED NEEDS: CAMILLE, BMI, wounds Calories: 0688-7100 kcal/day (20-25 kcal/kg BW) Protein: 55-70 g/day (1.0-1.2 g/kg IBW) Fluids: 2125-2550ml/day (25-30 ml/kg) NUTRITION DIAGNOSIS: 1) Inadequate oral intake related to decreased ability to consume sufficient energy as evidenced by current NPO status.--IMPROVING 2) Increased kcal/pro needs related to increased nutrient demand as evidence by pt with multiple pressure injuries. --PERSISTS 3) Chew/swallow difficulty due to AMS as evidenced by modified diet texture per AU PAIR.--IMPROVING NUTRITION INTERVENTION: 1) Continue current diet per speech therapy. Consider tube feeding if in line with pt goals of care. 2) Today, pt reported that she does not like Sami at all and had two full cups of it on her bedsidetable. Will cancel Sami order. 3) Visited pt today to provide and review DM nutrition ed handouts. She skimmed them while we discussed and had no additional questions or concerns at time of visit. MONITOR/EVALUATE: PO intake, diet tolerance vs TF? GI, wounds, labs, POC, nutrition status. Follow per high nutrition risk guidelines. rystal Cordoba MSW - 05/10/2021 3:19 PM PDT SOCIAL WORK: PROGRESS NOTE Data: EMR reviewed. Pt is on day 24 for Problem List Items Addressed This Visit Musculoskeletal * (Principal) Pressure injury of skin of right calf Relevant Orders [facility]. TEST - (Completed) Culture, Deep Abscess Aerobic&Anaerobic w/gram stain (Completed) Other Visit Diagnoses Acute renal failure, unspecified acute renal failure type (CMS/HCC) - Primary Hyperkalemia Sepsis due to skin infection ([facility]) Acute anemia Occult blood in stools Acute cystitis without hematuria Patient is medically stable for discharge at this time. Per discussion with provider, discharge needs include snf for rehab. Social Work consults to coordinate these services have been ordered by physician at this time. PRECIPITATOR OPERATOR spoke to Patricia at [facility]. They have reviewed patient's chart and are concerned about dc plan once patient is ready to leave [facility]. PRECIPITATOR OPERATOR spoke to patient (and left a message for spouse). Patient reports to PRECIPITATOR OPERATOR that the plan would be go to back to [place] once dc'd from [facility]. PRECIPITATOR OPERATOR phoned Patricia back and advised same. Patricia remains concerned about patient returning to [facility] with no medical support. Patricia will review patient's situation with her team tomorrow and adviseMSW of their decision. Barriers to Discharge Include: Assessment: alert and oriented x4 Per PRECIPITATOR OPERATOR interactions, Physician Documentation and Nursing Documentation, patient has capacity for self care and has decisional capacity at this time. Plan: Anticipate patient to discharge to snf . PRECIPITATOR OPERATOR will continue to follow pt's clinical course. AJIT Ruedalectronically signed by HUDSON Rueda at 05/10/2021 3:22 PM PDTJaneth Bedoya - 05/10/2021 1:49 PM PDT Social Work Discharge Planning Faxed most recent clinicals to [facility] F: [phone]. Also, called [facility] at P: [phone] left vm asking if they have had a chance to review referral in [facility] and if so, please get back todc inventory planner. Updated PRECIPITATOR OPERATOR that this task was completed Louise Dunn CCC-AU PAIR - 05/10/2021 11:24 AM PDT Per RN pt requesting to be able to order for herself, mentation has greatly improved. Per chart review no indication of difficulty with PO intake and concern for limited PO intake thus agree with recommendation to allow pt to order preferred foods as able. Updated diet order to general select, per RN request. Please reconsult [facility] if any concerns re:PO intake are noted. Ricardo Rosa DO - 05/10/2021 8:18 AM PDT [facility] Progress Note Inpatient Primary Care [facility] Patient Name: Shirin Aguillon Date of : 1945 Age: 75 y.o. Code Status: Full Code Primary Care Physician: Rogelio Braga MD Admitting Provider: Ana Maria Narvaez MD Attending Provider: Ezekiel Garcia DO Admit Date: 04/15/2021 Date of Service: 05/10/2021 Hospital Day: 24 Assessment and Plan Soft tissue ulcerated wounds of bilateral lower extremities, POA. Improving. 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 Patient reports she developed these wounds following an allergic reaction to TMP-SMX. She was followed by Rheumatology for this; previously on Xeljanz, Leflunomide and Sulfasalazine for Crohn's and seronegative RA. Followed by Dr Shepherd. Pt reports another [employer] sales consultant switched her to Prednisone daily however I am not able to view these records - S/p bilateral calf wound debridement per GS, Micro positive for light growth pseudomonas and zenaida albicans - Continue wound care, wound consult team following; appreciate their excellent care and recommendations. Examined 05/07, no evidence of subcutaneous infection - treatment of presumed autoimmune etiology and diabetes - conservative pain control. Rotate to a different low dose opioid today slightly safer in CKD - Recommend Referral to Gen Surg for outpatient Biopsy Prednisone therapy for inflammatory bowel disease and rheumatoid arthritis, present on admission, active - continue outpt Steroids oral Prednisone - Previously on Xeljanz, Leflunomide And Sulfasalazine. Reportedly discontinued this recently for prednisone and also discontinued outpatient Cipro for recurrent UTis - Discussed with Dr Shepherd Rheumatology 05/07, pt safe to resume Sulfasalazine for Crohn's. Presumably the ulcers are from IBD however not safe to resume xeljanz and leflunomide due to infection - Recommend F/u with outpt rheumatology outpt for mgmt Weakness, Fatigue & Deconditioning, POA, improving - Functional status prior to admission:??Ambulates with a walker, stair chair at home, few stairs onher own. - Continue Physical therapy; recommending rehabilitation - SNF planning - Previously at [facility], awaiting review by Patricia at [facility], appreciate her help Relative CAMILLE on Chronic kidney disease III, present on admission, stable Baseline Cr around 1.2-1.3 during this admission, previous baseline around 1.1 prior. Likely she is at a stable baseline - UA / urine protein creatinine ratio exhibited significant nephropathy likely diabetic - Discontinue EMILY due to renal intolerance, d/w Nephro curbside - BUN/Cr did not improve much with supplemental IVF - Advised pt to drink >2.5L fluids daily Constipation, not present on admission, acute on chronic Likely due to low mobility and depressed PO intake - Begin daily bowel regimen + laxatives until >1bm per day?? Cystitis, acute on chronic, present on admission, resolved and now recurred & resolved Previously patient had evidence of Urogenital sepsis on admission, treated with broad spectrum antibiotics and a urine culture did not grow a pathogen. Pt has history of outpt Ciprofloxacin regimen, not currently taking per history and records. 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 -Glargine reduced on 04/27, discontinued on 04/28 -Sliding scale as needed plus lantus -F/u outpt for monitoring and/or oral medicines with pcp Decreased oral intake, not POA. Likely related to chronic disease (inflammatory) and decreased appetite from acute illness - Encourage food and fluid - No advance feeding interventions ?? Cardiac Focal wall motion abnormality, present on admission, active Echo 04/21 exhibited area of wall motion abnormality, EF 50% (WNL). Seen by cardiology, recommended optimal medical management with outpt f/u - Continue Betablocker, statin, EMILY, apixaban - Recommend F/u outpt with cardiology in 2-3 weeks after discharge for f/u echo and evaluation ?? Atrial fibrillation with rapid ventrilcular response ,??present on admission, chronic. RVR has Resolved. [id number] score of at least 4. No Afib notable on most recent Peggy patch outpatient -Continue her ambulatory diltiazem XR 240 mg and Apixaban Hypokalemia with Hypomagnesemia, not present on admission. Resolved. - Replete both electrolytes as needed. Secondary to diarrheal losses. Chronic anemia,??present on admission, stable.?? Iron profile is compatible with anemia of chronic disease. Recommend Outpatient colonoscopy Respiratory distress, present on admission. Resolved. Metabolic acidosis with respiratory partial compensation, not present on admission. Resolved. CAMILLE, acute, present on admission. Resolved. Diarrhea, not present on admission, Resolved. Partly due to Crohn's Sepsis, acute, present on admission. Resolved. Body jerking,??present on admission. Resolved. VTE Prophylaxis: Apixaban Code Status: Full code Disposition: Waiting for SNF bed approval. Current Hospital Medications Allergies Allergies Allergen Reactions ??? Bactrim [Sulfamethoxazole-Trimethoprim] Swelling ??? Betadine [Povidone-Iodine] ??? Fish Derived ??? Iodine ??? Other [place] products ??? Shellfish Containing Products Medications Scheduled apixaban, 5 mg, oral, BID atorvastatin, 40 mg, oral, Nightly carvediloL, 6.25 mg, oral, BID with meals diltiazem CD, 240 mg, oral, Daily docusate sodium, 100 mg, oral, Daily insulin glargine, 6 Units, subcutaneous, Nightly insulin lispro, 0-5 Units, subcutaneous, Nightly insulin lispro, 0-6 Units, subcutaneous, TID with meals lactobacillus rhamnosus GG, 1 capsule, oral, Daily magnesium chloride, 1 tablet, oral, Daily with breakfast miconazole, , Topical, BID pantoprazole, 40 mg, oral, q AM AC polyethylene glycol, 17 g, oral, Daily predniSONE, 5 mg, oral, Daily psyllium, 1 packet, oral, Daily senna, 1 tablet, oral, BID sulfaSALAzine, 1,000 mg, oral, BID As needed ??? acetaminophen ??? dextrose 50% (D50W) ??? diphenhydrAMINE ??? labetalol ??? Insert peripheral IV AND lidocaine AND Maintain IV access AND Saline lock IV AND sodium chloride ??? Insert peripheral IV AND lidocaine AND Maintain IV access AND Saline lock IV AND sodium chloride ??? Insert peripheral IV AND lidocaine AND Maintain IV access AND Saline lock IV AND sodium chloride ??? metoprolol ??? naloxone ??? oxyCODONE ??? [COMPLETED] Prepare/Crossmatch RBC: 1 Units AND [COMPLETED] Transfuse RBC: 1 Units AND [COMPLETED] Nursing communication: Ensure provider has obtained Informed Consent for Blood Transfusion AND Vital Signs AND sodium chloride AND [COMPLETED] Nursing Communication: Transfusion Reaction Management ??? sodium chloride Infusions sodium chloride, 75 mL/hr, Last Rate: Stopped (05/10/21 0704) Subjective Patient's Update Patient wounds are painful today. Appetite is ok. No acute concerns. Misses her family. Had a bowel movement and felt lightheaded with transfers. Agreeable to try to drink more fluid Interval Update No overnight events Objective BP (!) 155/80 (BP Location: Left arm, Patient Position: Lying) Comment: RN notified Pulse 71 Temp 36.6 ??C (97.8 ??F) (Oral) Resp 18 Ht 1.524 m Wt 76.1 kg SpO2 99% BMI 32.77 kg/m?? Intake/Output Summary (Last 24 hours) at 05/10/2021 0818 Last data filed at 05/10/2021 0744 Gross per 24 hour Intake 1640 ml Output 1500 ml Net 140 ml Physical Exam Vitals and nursing note reviewed. Constitutional: General: She is not in acute distress. Appearance: She is obese. She is ill-appearing (chronically). She is not diaphoretic. Eyes: Extraocular Movements: Extraocular movements intact. Cardiovascular: Rate and Rhythm: Normal rate. Pulses: Normal pulses. Pulmonary: Effort: Pulmonary effort is normal. No respiratory distress. Breath sounds: No wheezing, rhonchi or rales. Abdominal: General: Abdomen is flat. Tenderness: There is abdominal tenderness. Musculoskeletal: General: Tenderness and signs of injury (bilateral wounds, wrapped clean dry and intact) present.Normal range of motion. Cervical back: Neck supple. Right lower leg: No edema. Left lower leg: No edema. Skin: General: Skin is warm and dry. Capillary Refill: Capillary refill takes less than 2 seconds. Coloration: Skin is pale. Neurological: General: No focal deficit present. Mental Status: She is alert and oriented to person, place, and time. Psychiatric: Behavior: Behavior normal. Comments: Labile mood Flat affect Labs and ECG Hematology Results from last 7 days Lab Units 05/10/21 0640 05/09/21 0657 05/08/21 0656 WBC AUTO x10e3/uL 7.7 6.1 7.9 HEMOGLOBIN g/dL 8.9* 8.3* 8.0* HEMATOCRIT % 30.8* 28.6* 27.3* MCV fL 87 85 86 PLATELETS AUTO x10e3/uL 221 214 224 Chemistries Results from last 7 days Lab Units 05/10/21 0640 05/09/21 0657 05/08/21 0656 SODIUM mmol/L 141 143 142 POTASSIUM mmol/L 3.9 4.1 4.0 CHLORIDE mmol/L 103 105 106 CO2 mmol/L 26 30* 28 BUN mg/dL 11.0 12.0 12.0 CREATININE mg/dL 1.45* 1.51* 1.45* GLUCOSE mg/dL 96 96 141* CALCIUM, SERUM mg/dL 8.3* 8.4* 8.3* MAGNESIUM mg/dL 1.9 1.7 1.7 Estimated Creatinine Clearance: 31.5 mL/min (A) (by C-G formula based on SCr of 1.45 mg/dL (H)). Urinalysis Results from last 7 days Lab Units 05/07/21 0352 COLOR, URINALYSIS Yellow CLARITY UA Turbid* SPECIFIC GRAVITY, URINALYSIS 1.025 PH, URINALYSIS pH 6.0 LEUKOCYTE ESTERASE, URINALYSIS Large* NITRITE, URINALYSIS Negative PROTEIN, URINALYSIS mg/dL 100 * GLUCOSE, URINALYSIS mg/dL Negative KETONES, URINALYSIS mg/dL Negative UROBILINOGEN, URINALYSIS EU/dL 0.2 (Normal) BILIRUBIN, URINALYSIS Negative BLOOD, URINALYSIS Moderate* RBC, URINALYSIS /HPF 3-10* WBC, URINALYSIS /HPF 11-50* BACTERIA, URINALYSIS /HPF Moderate* SQUAMOUS EPITHELIAL CELLS, URINE /HPF Occasional Microbiology Urine culture Hafnia Alvei 05/05 and 05/07 Diagnostic Imaging Imaging results: XR CHEST [address] [place]. [address] PATIENT NAME: SHIRIN AGUILLON : 1945 GENDER: F EXAM DATE: 04/23/2021 16:33 ORDERED FROM: [facility] ORDERING PHYSICIAN: JORDAN RAMSEY CC: -- - - - CONTRAST: READING STATION ID: [id number] mGy: PROCEDURE: XR CHEST 1 VIEW INDICATIONS: Dobhoff placement - in place TECHNIQUE: One view of the chest was acquired. COMPARISON: [facility], , XR CHEST 1 VIEW, 04/22/2021, 15:54. FINDINGS: Surgical changes and devices: Dobbhoff tube tip is in distal stomach lumen below the right hemidiaphragm. Fusion hardware in lumbar spine is seen. Lungs and pleura: Pulmonary vascular congestion is seen. No significant pleural effusion or gross pneumothorax. Mild pulmonary edema is seen. Mediastinum: Mediastinal contours appear normal. Heart size is enlarged. Bones and chest wall: No suspicious bony lesions. Overlying soft tissues appear unremarkable. IMPRESSION: Dobbhoff tube tip is in the region of distal stomach lumen below the right hemidiaphragm. No free air under the diaphragm. Mild pulmonary vascular congestion. No gross pneumothorax. Reviewed by: Jacinto Rodriguez M.D. on 04/23/2021 at 16:54 Approved by: Jacinto Rodriguez M.D. on 04/23/2021 at 16:57 ECHOCARDIOGRAM COMPLETE Version: 1 Study ID: [id number] ?? [facility] [address] [place]. [address] Phone: ADULT ECHOCARDIOGRAM ?? Name: SHIRIN AGUILLON Study Date: 04/23/2021, 7: 55 AM : 1945 BP: 147 / 80 mmHg Gender: Female Height: 60 in Age: 75 Years Weight: 187.393 lb Pt. Location: [facility]^2008^2008-10 BSA: 1.82 m? Ordering: JORDAN RAMSEY Referring: [facility] Hospitalist Clinician: Carli Vasquez Reason For Study: Dyspnea History: Summary Statements This is a technically difficult study characterized by limited endocardial visualization. Next time recommend Definity echocontrast if possible. Normal sinus rhythm with occasional PAC's. Normal LV size and wall thickness. There is subtle mid-anterior hypokinesis, but normal wall motion otherwise. EF is 50-55%. Stage II diastolic dysfunction. Normal chamber sizes. Aortic sclerosis without stenosis. Otherwise no valvular abnormalities. Compared to prior study 09/2019, focal wall motion abnormality involving mid-anterior segment is newly described Electronically signed by: Lucinda Bahena M.D. 04/23/2021, 3: 19 PM Electronically signed by: Ricardo Griffin DO 05/10/2021 at 8:18 AM Portions of today's documentation have been created with the assistance of voice recognition software. Therefore, it may contain anomalous punctuation, anomalous independent misrecognitions, word substitutions, insertions or omissions. Occasional wrong-word or phonetically similar substitutions may also occur, all due to the inherent limitations of voice recognition software. Attempts to correct the above have been made by Ricardo Griffin DO but it is recommended that the chart be read carefully to recognize, using context, where the substitutions may have occurred. Associated attestation - Denise Miller DO - 05/11/2021 7:43 AM PDT I saw and evaluated the patient 05/10/21, participating in the villarreal portions of the service. I reviewed the resident???s note. I agree with the resident???s findings and plan. Patient is awaiting SNF.Valorie Troy MSW - 05/09/2021 8:44 AM PDT SOCIAL WORK: PROGRESS NOTE Data: EMR reviewed. Pt is on day 23 for Problem List Items Addressed This Visit Musculoskeletal * (Principal) Pressure injury of skin of right calf Relevant Orders MISC. TEST - (Completed) Culture, Deep Abscess Aerobic&Anaerobic w/gram stain (Completed) Other Visit Diagnoses Acute renal failure, unspecified acute renal failure type (CMS/HCC) - Primary Hyperkalemia Sepsis due to skin infection (CMS/HCC) Acute anemia Occult blood in stools Acute cystitis without hematuria Patient is not medically stable for discharge at this time. Per discussion with provider, discharge needs include SNF. Social Work consults to coordinate theseservices have been ordered by physician at this time. PRECIPITATOR OPERATOR spoke with [facility] and they are not able to take pt today( 05/09) if DC ready they are requesting it be pushed to tomorrow ( 05/10) so they can reasses and determine if they are able to take patient. They have also requested to know what the plan will be from family if pt is not unable to DCback home after stay at SNF. Barriers to Discharge Include: Medical Stability and SNF acceptance Assessment: Not able to assess at this time. Plan: Anticipate patient to discharge to SNF PRECIPITATOR OPERATOR will continue to follow pt's clinical course. HUDSON Qiu LICASW Ricardo Rosa DO - 05/09/2021 7:55 AM PDT [facility] Progress Note Inpatient Primary Care [facility] Patient Name: Shirin Aguillon Date of : 1945 Age: 75 y.o. Code Status: Full Code Primary Care Physician: Rogelio Braga MD Admitting Provider: Ana Maria Narvaez MD Attending Provider: Ezekiel Garcia DO Admit Date: 04/15/2021 Date of Service: 05/09/2021 Hospital Day: 23 Assessment and Plan Cystitis, acute on chronic, present on admission, resolved and now recurred & active Previously patient had evidence of Urogenital sepsis on admission, treated with broad spectrum antibiotics and a urine culture did not grow a pathogen. Pt has history of outpt Ciprofloxacin regimen, not currently taking per history and records. - 05/07 symptoms of encephalopathy, abdominal pain and polyuria, slowly improving - Urine culture grew Apollo levy susceptible to Cipro which she has tolerated well in the past - Continue oral Cipro for likely 7 day course. Added probiotics today ?? Relative CAMILLE on Chronic kidney disease III, present on admission, stable Baseline Cr around 1.2-1.3 during this admission, previous baseline around 1.1 prior. Likely she is at a stable baseline - UA / urine protein creatinine ratio exhibited significant nephropathy likely diabetic - Hold EMILY due to renal intolerance, d/w Nephro curbside - supplemental IVF hydration as pt not taking much PO - Consideration to consult nephrology if pt does not improve although I fear this maybe her new baseline Constipation, not present on admission, active Likely due to low mobility and depressed PO intake - Begin daily bowel regimen + laxatives until >1bm per day Weakness, Fatigue & Deconditioning, POA, improving - Functional status prior to admission:??Ambulates with a walker, stair chair at home, few stairs onher own. - Continue Physical therapy; recommending rehabilitation - SNF planning - Previously at [facility] exhibited ?? Type 2 diabetes mellitus uncontrolled, POA, chronic. -Glargine reduced on 04/27, discontinued on 04/28 -Sliding scale as needed plus lantus -F/u outpt for monitoring and/or oral medicines with pcp Decreased oral intake, not POA. Likely related to chronic disease (inflammatory) and decreased appetite from acute illness - Encourage food and fluid - No advance feeding interventions ?? Cardiac Focal wall motion abnormality, present on admission, active Echo 04/21 exhibited area of wall motion abnormality, EF 50% (WNL). Seen by cardiology, recommended optimal medical management with outpt f/u - Continue Betablocker, statin, EMILY, apixaban - Recommend F/u outpt with cardiology in 2-3 weeks after discharge for f/u echo and evaluation Prednisone therapy for inflammatory bowel disease and rheumatoid arthritis, present on admission - continue outpt Steroids oral Prednisone - Previously on Xeljanz, Leflunomide And Sulfasalazine. Reportedly discontinued this recently for prednisone and also discontinued outpatient Cipro for recurrent UTis - Discussed with Dr Shepherd Rheumatology 05/07, pt safe to resume Sulfasalazine for Crohn's. Presumably the ulcers are from IBD however not safe to resume xeljanz and leflunomide due to infection - Recommend F/u with outpt rheumatology outpt for mgmt Soft tissue ulcerated wounds of bilateral lower extremities, POA. Improving. 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 Patient reports she developed these wounds following an allergic reaction to TMP-SMX. She was followed by Rheumatology for this; previously on Xeljanz, Leflunomide and Sulfasalazine for Crohn's and seronegative RA. Followed by Dr Shepherd. Pt reports another [employer] sales consultant switched her to Prednisone daily however I am not able to view these records - S/p bilateral calf wound debridement per GS, Micro positive for light growth pseudomonas and zenaida albicans - Continue wound care. Examined 05/07, no evidence of subcutaneous infection - treatment of presumed autoimmune etiology and diabetes - Recommend Referral to Gen Surg for outpatient Biopsy ?? Atrial fibrillation with rapid ventrilcular response ,??present on admission, chronic. RVR has Resolved. [id number] score of at least 4. No Afib notable on most recent Peggy patch outpatient -Continue her ambulatory diltiazem XR 240 mg and Apixaban ?? Chronic anemia,??present on admission, stable.?? Iron profile is compatible with anemia of chronic disease. -Continue to monitor hemoglobin transfusion threshold of 7 -Outpatient colonoscopy recommended ?? Hypokalemia with Hypomagnesemia, not present on admission. Resolved. - Replete both electrolytes as needed. Secondary to diarrheal losses. ?? Respiratory distress, present on admission. Resolved. -Underlying JACLYN, with metabolic stress from uremia, skin infection and diarrhea - Oxygen as needed ?? UTI, acute, present on admission. Resolved. - Broad-spectrum coverage with IV cefepime completed ?? Metabolic acidosis with respiratory partial compensation, not present on admission. Resolved. - ABG: pH 7.224, pCO2 19, HCO3 9, Lactic acid normal , CT abdomen negative - Bicarb drip initially and then discontinued once bicarb stabilized ?? CAMILLE, acute, present on admission. Resolved. - Likely due to ATN from sepsis on CKD Stage 3 - Completed temporary dialysis, catheter removed Diarrhea, not present on admission, Resolved. Previously Bloody and gelatinous stool. C. Difficile toxin PCR negative 04/22. Pt received antibiotics previously - stool bulking, electrolyte replacement as needed ?? Sepsis, acute, present on admission. Resolved. Body jerking,??present on admission. Resolved. VTE Prophylaxis Apixaban Code Status: Full code Disposition Waiting for SNF bed approval. Current Hospital Medications Allergies Allergies Allergen Reactions ??? Bactrim [Sulfamethoxazole-Trimethoprim] Swelling ??? Betadine [Povidone-Iodine] ??? Fish Derived ??? Iodine ??? Other [place] products ??? Shellfish Containing Products Medications Scheduled apixaban, 5 mg, oral, BID atorvastatin, 40 mg, oral, Nightly carvediloL, 6.25 mg, oral, BID with meals ciprofloxacin, 500 mg, oral, BID diltiazem CD, 240 mg, oral, Daily insulin glargine, 6 Units, subcutaneous, Nightly insulin lispro, 0-5 Units, subcutaneous, Nightly insulin lispro, 0-6 Units, subcutaneous, TID with meals miconazole, , Topical, BID pantoprazole, 40 mg, oral, q AM AC predniSONE, 5 mg, oral, Daily psyllium, 1 packet, oral, Daily sulfaSALAzine, 1,000 mg, oral, BID As needed ??? acetaminophen ??? dextrose 50% (D50W) ??? diphenhydrAMINE ??? labetalol ??? Insert peripheral IV AND lidocaine AND Maintain IV access AND Saline lock IV AND sodium chloride ??? Insert peripheral IV AND lidocaine AND Maintain IV access AND Saline lock IV AND sodium chloride ??? Insert peripheral IV AND lidocaine AND Maintain IV access AND Saline lock IV AND sodium chloride ??? metoprolol ??? naloxone ??? oxyCODONE ??? [COMPLETED] Prepare/Crossmatch RBC: 1 Units AND [COMPLETED] Transfuse RBC: 1 Units AND [COMPLETED] Nursing communication: Ensure provider has obtained Informed Consent for Blood Transfusion AND Vital Signs AND sodium chloride AND [COMPLETED] Nursing Communication: Transfusion Reaction Management ??? sodium chloride Infusions Subjective Patient's Update Patient feeling sad as she would like to go home. Medical concern of constipation, >3 days without a bowel movement. Pt became tearful when describing her family and how she misses them Interval Update Creatine down trending but GFR still in mid 30s. Hafnia alvei UTI switched from Cefipime IV to PO Cipro Objective BP (!) 148/83 (BP Location: Left arm, Patient Position: Lying) Pulse 68 Temp 36.7 ??C (98.1 ??F) (Oral) Resp 16 Ht 1.524 m Wt 72.9 kg SpO2 96% BMI 31.39 kg/m?? Intake/Output Summary (Last 24 hours) at 05/09/2021 0755 Last data filed at 05/09/2021 0530 Gross per 24 hour Intake 340 ml Output 670 ml Net -330 ml Physical Exam Vitals and nursing note reviewed. Constitutional: General: She is not in acute distress. Appearance: She is obese. She is ill-appearing. She is not toxic-appearing or diaphoretic. HENT: Mouth/Throat: Mouth: Mucous membranes are moist. Pharynx: Oropharynx is clear. Eyes: General: No scleral icterus. Extraocular Movements: Extraocular movements intact. Conjunctiva/sclera: Conjunctivae normal. Pupils: Pupils are equal, round, and reactive to light. Cardiovascular: Rate and Rhythm: Normal rate. Pulses: Normal pulses. Pulmonary: Effort: Pulmonary effort is normal. No respiratory distress. Abdominal: General: Abdomen is flat. Tenderness: There is abdominal tenderness. Musculoskeletal: General: Normal range of motion. Cervical back: Normal range of motion and neck supple. Skin: General: Skin is warm and dry. Capillary Refill: Capillary refill takes less than 2 seconds. Coloration: Skin is pale. Neurological: General: No focal deficit present. Mental Status: She is alert and oriented to person, place, and time. Psychiatric: Mood and Affect: Mood normal. Behavior: Behavior normal. Thought Content: Thought content normal. Judgment: Judgment normal. Labs and ECG Hematology Results from last 7 days Lab Units 05/09/21 0657 05/08/21 0656 05/07/21 0952 WBC AUTO x10e3/uL 6.1 7.9 7.4 HEMOGLOBIN g/dL 8.3* 8.0* 8.5* HEMATOCRIT % 28.6* 27.3* 29.2* MCV fL 85 86 88 PLATELETS AUTO x10e3/uL 214 224 252 Chemistries Results from last 7 days Lab Units 05/09/21 0657 05/08/21 0656 05/07/21 0607 SODIUM mmol/L 143 142 142 POTASSIUM mmol/L 4.1 4.0 4.4 CHLORIDE mmol/L 105 106 105 CO2 mmol/L 30* 28 29 BUN mg/dL 12.0 12.0 13.0 CREATININE mg/dL 1.51* 1.45* 1.51* GLUCOSE mg/dL 96 141* 134* CALCIUM, SERUM mg/dL 8.4* 8.3* 8.4* MAGNESIUM mg/dL 1.7 1.7 2.2 Estimated Creatinine Clearance: 29.6 mL/min (A) (by C-G formula based on SCr of 1.51 mg/dL (H)). Urinalysis Results from last 7 days Lab Units 05/07/21 0352 COLOR, URINALYSIS Yellow CLARITY UA Turbid* SPECIFIC GRAVITY, URINALYSIS 1.025 PH, URINALYSIS pH 6.0 LEUKOCYTE ESTERASE, URINALYSIS Large* NITRITE, URINALYSIS Negative PROTEIN, URINALYSIS mg/dL 100 * GLUCOSE, URINALYSIS mg/dL Negative KETONES, URINALYSIS mg/dL Negative UROBILINOGEN, URINALYSIS EU/dL 0.2 (Normal) BILIRUBIN, URINALYSIS Negative BLOOD, URINALYSIS Moderate* RBC, URINALYSIS /HPF 3-10* WBC, URINALYSIS /HPF 11-50* BACTERIA, URINALYSIS /HPF Moderate* SQUAMOUS EPITHELIAL CELLS, URINE /HPF Occasional Microbiology Urine culture Ulisesfnia Alvei 05/05 and 05/07 Diagnostic Imaging Imaging results: XR CHEST 1 [place]. [address] PATIENT NAME: SHIRIN AGUILLON : 1945 GENDER: F EXAM DATE: 04/23/2021 16:33 ORDERED FROM: [facility] ORDERING PHYSICIAN: JORDAN RAMSEY CC: -- - - - CONTRAST: READING STATION ID: [id number] mGy: PROCEDURE: XR CHEST 1 VIEW INDICATIONS: Dobhoff placement - in place TECHNIQUE: One view of the chest was acquired. COMPARISON: [facility], , XR CHEST 1 VIEW, 04/22/2021, 15:54. FINDINGS: Surgical changes and devices: Dobbhoff tube tip is in distal stomach lumen below the right hemidiaphragm. Fusion hardware in lumbar spine is seen. Lungs and pleura: Pulmonary vascular congestion is seen. No significant pleural effusion or gross pneumothorax. Mild pulmonary edema is seen. Mediastinum: Mediastinal contours appear normal. Heart size is enlarged. Bones and chest wall: No suspicious bony lesions. Overlying soft tissues appear unremarkable. IMPRESSION: Dobbhoff tube tip is in the region of distal stomach lumen below the right hemidiaphragm. No free air under the diaphragm. Mild pulmonary vascular congestion. No gross pneumothorax. Reviewed by: Jacinto Rodriguez M.D. on 04/23/2021 at 16:54 Approved by: Jacinto Rodriguez M.D. on 04/23/2021 at 16:57 ECHOCARDIOGRAM COMPLETE Version: 1 Study ID: [id number] ?? [address] [address] Phone: ADULT ECHOCARDIOGRAM ?? Name: SHIRIN AGUILLON Study Date: 04/23/2021, 7: 55 AM : 1945 BP: 147 / 80 mmHg Gender: Female Height: 60 in Age: 75 Years Weight: 187.393 lb Pt. Location: [facility]^2008^2008-10 BSA: 1.82 m? Ordering: JORDAN RAMSEY Referring: Leon Hospitalist Clinician: Carli Vasquez Reason For Study: Dyspnea History: Summary Statements This is a technically difficult study characterized by limited endocardial visualization. Next time recommend Definity echocontrast if possible. Normal sinus rhythm with occasional PAC's. Normal LV size and wall thickness. There is subtle mid-anterior hypokinesis, but normal wall motion otherwise. EF is 50-55%. Stage II diastolic dysfunction. Normal chamber sizes. Aortic sclerosis without stenosis. Otherwise no valvular abnormalities. Compared to prior study 09/2019, focal wall motion abnormality involving mid-anterior segment is newly described Electronically signed by: Lucinda Bahena M.D. 04/23/2021, 3: 19 PM Electronically signed by: Ricardo Griffin DO 05/09/2021 at 7:55 AM Portions of today's documentation have been created with the assistance of voice recognition software. Therefore, it may contain anomalous punctuation, anomalous independent misrecognitions, word substitutions, insertions or omissions. Occasional wrong-word or phonetically similar substitutions may also occur, all due to the inherent limitations of voice recognition software. Attempts to correct the above have been made by Ricardo Griffin DO but it is recommended that the chart be read carefully to recognize, using context, where the substitutions may have occurred. Associated attestation - Denise Miller DO - 05/10/2021 7:47 AM PDT I saw and evaluated the patient 05/09/21, participating in the villarreal portions of the service. I reviewed the resident???s note. I agree with the resident???s findings and plan.Russell Cantu LCSW - 05/08/2021 1:55 PM PDT SOCIAL WORK: PROGRESS NOTE Data: EMR reviewed. Pt is on day 22 for Problem List Items Addressed This Visit Musculoskeletal * (Principal) Pressure injury of skin of right calf Relevant Orders MISC. TEST - (Completed) Culture, Deep Abscess Aerobic&Anaerobic w/gram stain (Completed) Other Visit Diagnoses Acute renal failure, unspecified acute renal failure type (CMS/HCC) - Primary Hyperkalemia Sepsis due to skin infection (CMS/HCC) Acute anemia Occult blood in stools Acute cystitis without hematuria Patient is medically stable for discharge at this time. Per discussion with provider, discharge needs include SNF. Social Work consults to coordinate theseservices have been ordered by physician at this time. PRECIPITATOR OPERATOR spoke to Marianne at [facility] who reports she never received faxed clinicals from [facility] yesterday. [facility] today has faxed clinicals, PRECIPITATOR OPERATOR waiting of [facility] to see if they are able to admit pt. Barriers to Discharge Include: SNF acceptance Assessment: Not able to assess at this time. Plan: Anticipate patient to discharge to SNF. PRECIPITATOR OPERATOR will continue to follow pt's clinical course. LYLE GoldsteinW Ezekiel Tucker - 05/08/2021 12:53 PM PDT Social Work Discharge Planning Faxed updated patient clinical records to Elysia at [facility] at fax [phone]. Updated PRECIPITATOR OPERATOR that this task was completed Ezekiel Garcia DO - 05/08/2021 7:45 AM PDT [facility] Progress Note Inpatient Primary Care [facility] Patient Name: Shirin Aguillon Date of : 1945 Age: 75 y.o. Code Status: Full Code Primary Care Physician: Rogelio Braga MD Admitting Provider: Ana Maria Narvaez MD Attending Provider: Ezekiel Garcia DO Admit Date: 04/15/2021 Date of Service: 05/08/2021 Hospital Day: 22 Assessment and Plan Cystitis, acute on chronic, present on admission, resolved and now recurred & active Previously patient had evidence of Urogenital sepsis on admission, treated with broad spectrum antibiotics and a urine culture did not grow a pathogen. Pt has history of outpt Ciprofloxacin regimen, not currently taking per history and records. - 05/07 symptoms of encephalopathy, abdominal pain and polyuria - Urine culture grew Ulisesfnia alvea susceptible to Cipro which she has tolerated well in the past - Switch IV Cephipime to oral cipro ? Relative CAMILLE on Chronic kidney disease III, present on admission, stable Baseline Cr around 1.2-1.3 during this admission, previous baseline around 1.1 prior. Likely she is at a stable baseline - UA / urine protein creatinine ratio exhibited significant diabetic nephropathy - Hold EMILY due to renal intolerance, d/w Nephro curbside - continue IVF. -Consideration to consult nephrology if pt does not improve although I fear this maybe her new baseline ?? Weakness, Fatigue & Deconditioning, POA, improving - Functional status prior to admission:??Ambulates with a walker, stair chair at home, few stairs onher own. - Continue Physical therapy; recommending rehabilitation - SNF planning - Previously at [facility] exhibited ?? Type 2 diabetes mellitus uncontrolled, POA, chronic. -Glargine reduced on 04/27, discontinued on 04/28 -Sliding scale as needed plus lantus -F/u outpt for monitoring and/or oral medicines with pcp ?? Decreased oral intake, not POA. Likely related to chronic disease (inflammatory) and decreased appetite from acute illness - Encourage food and fluid - No advance feeding interventions ?? Cardiac Focal wall motion abnormality, present on admission, active Echo 04/21 exhibited area of wall motion abnormality, EF 50% (WNL). Seen by cardiology, recommended optimal medical management with outpt f/u - Continue Betablocker, statin, EMILY, apixaban - Recommend F/u outpt with cardiology in 2-3 weeks after discharge for f/u echo and evaluation Prednisone therapy for inflammatory bowel disease and rheumatoid arthritis, present on admission - continue outpt Steroids oral Prednisone - Previously on Xeljanz, Leflunomide And Sulfasalazine. Reportedly discontinued this recently for prednisone and also discontinued outpatient Cipro for recurrent UTis - Discussed with Dr Shepherd Rheumatology 05/07, pt safe to resume Sulfasalazine for Crohn's. Presumably the ulcers are from IBD however not safe to resume xeljanz and leflunomide due to infection - Recommend F/u with outpt rheumatology outpt for mgmt Soft tissue ulcerated wounds of bilateral lower extremities, POA. Improving. 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 Patient reports she developed these wounds following an allergic reaction to TMP-SMX. She was followed by Rheumatology for this; previously on Xeljanz, Leflunomide and Sulfasalazine for Crohn's and seronegative RA. Followed by Dr Shepherd. Pt reports another [employer] sales consultant switched her to Prednisone daily however I am not able to view these records - S/p bilateral calf wound debridement per GS, Micro positive for light growth pseudomonas and zenaida albicans - Continue wound care. Examined 05/07, no evidence of subcutaneous infection - treatment of presumed autoimmune etiology and diabetes - Recommend Referral to Gen Surg for outpatient Biopsy ?? Atrial fibrillation with rapid ventrilcular response ,??present on admission, chronic. RVR has Resolved. [id number] score of at least 4. No Afib notable on most recent Peggy patch outpatient -Continue her ambulatory diltiazem XR 240 mg and Apixaban ?? Chronic anemia,??present on admission, stable.?? Iron profile is compatible with anemia of chronic disease. -Continue to monitor hemoglobin transfusion threshold of 7 -Outpatient colonoscopy recommended ?? Hypokalemia, not present on admission. Resolved. - Replete as needed. Secondary to diarrheal losses. Check & replete Magnesium as needed too ?? Respiratory distress, present on admission. Resolved. -Underlying JACLYN, with metabolic stress from uremia, skin infection and diarrhea - Oxygen as needed ?? UTI, acute, present on admission. Resolved. - Broad-spectrum coverage with IV cefepime completed ?? Metabolic acidosis with respiratory partial compensation, not present on admission. Resolved. - ABG: pH 7.224, pCO2 19, HCO3 9, Lactic acid normal , CT abdomen negative - Bicarb drip initially and then discontinued once bicarb stabilized ?? CAMILLE, acute, present on admission. Resolved. - Likely due to ATN from sepsis on CKD Stage 3 - Completed temporary dialysis, catheter removed Diarrhea, not present on admission, Resolved. Previously Bloody and gelatinous stool. C. Difficile toxin PCR negative 04/22. Pt received antibiotics previously - stool bulking, electrolyte replacement as needed ?? Sepsis, acute, present on admission. Resolved. Body jerking,??present on admission. Resolved. VTE Prophylaxis Apixaban Code Status: Full code Disposition Waiting for SNF bed approval. Current Hospital Medications Allergies Allergies Allergen Reactions ??? Bactrim [Sulfamethoxazole-Trimethoprim] Swelling ??? Betadine [Povidone-Iodine] ??? Fish Derived ??? Iodine ??? Other [place] products ??? Shellfish Containing Products Medications Scheduled apixaban, 5 mg, oral, BID atorvastatin, 40 mg, oral, Nightly carvediloL, 6.25 mg, oral, BID with meals cefepime, 2 g, intravenous, q12h SUELLEN diltiazem CD, 240 mg, oral, Daily insulin glargine, 6 Units, subcutaneous, Nightly insulin lispro, 0-5 Units, subcutaneous, Nightly insulin lispro, 0-6 Units, subcutaneous, TID with meals magnesium chloride, 1 tablet, oral, Daily with breakfast miconazole, , Topical, BID pantoprazole, 40 mg, oral, q AM AC predniSONE, 5 mg, oral, Daily psyllium, 1 packet, oral, Daily sulfaSALAzine, 1,000 mg, oral, BID As needed ??? acetaminophen ??? dextrose 50% (D50W) ??? diphenhydrAMINE ??? labetalol ??? Insert peripheral IV AND lidocaine AND Maintain IV access AND Saline lock IV AND sodium chloride ??? Insert peripheral IV AND lidocaine AND Maintain IV access AND Saline lock IV AND sodium chloride ??? Insert peripheral IV AND lidocaine AND Maintain IV access AND Saline lock IV AND sodium chloride ??? metoprolol ??? naloxone ??? oxyCODONE ??? [COMPLETED] Prepare/Crossmatch RBC: 1 Units AND [COMPLETED] Transfuse RBC: 1 Units AND [COMPLETED] Nursing communication: Ensure provider has obtained Informed Consent for Blood Transfusion AND Vital Signs AND sodium chloride AND [COMPLETED] Nursing Communication: Transfusion Reaction Management ??? sodium chloride Infusions sodium chloride, 60 mL/hr, Last Rate: 60 mL/hr (05/07/21 1356) Subjective Patient's Update Patient not as interactive as yesterday but was complaining of feeling chills today. Patient denied increased confusion on Cefipime but Nurse who had her both days in a row disagreed. Interval Update Creatine down trending but GFR still in mid 30s. Hafnia alvei UTI switched from Cefipime IV to PO Cipro Objective BP 138/83 (BP Location: Right arm, Patient Position: Semi-Mims's) Pulse 71 Temp 36.4 ??C (97.5 ??F) (Oral) Resp 16 Ht 1.524 m Wt 75.3 kg SpO2 97% BMI 32.42 kg/m?? Intake/Output Summary (Last 24 hours) at 05/08/2021 0745 Last data filed at 05/08/2021 0421 Gross per 24 hour Intake 1130 ml Output 1125 ml Net 5 ml Physical Exam Vitals and nursing note reviewed. Constitutional: General: She is not in acute distress. Appearance: She is obese. She is ill-appearing. She is not toxic-appearing or diaphoretic. HENT: Mouth/Throat: Mouth: Mucous membranes are moist. Pharynx: Oropharynx is clear. Eyes: General: No scleral icterus. Extraocular Movements: Extraocular movements intact. Conjunctiva/sclera: Conjunctivae normal. Pupils: Pupils are equal, round, and reactive to light. Cardiovascular: Rate and Rhythm: Normal rate. Pulses: Normal pulses. Pulmonary: Effort: Pulmonary effort is normal. No respiratory distress. Abdominal: General: Abdomen is flat. Tenderness: There is abdominal tenderness. Musculoskeletal: General: Normal range of motion. Cervical back: Normal range of motion and neck supple. Skin: General: Skin is warm and dry. Capillary Refill: Capillary refill takes less than 2 seconds. Coloration: Skin is pale. Neurological: General: No focal deficit present. Mental Status: She is alert and oriented to person, place, and time. Psychiatric: Mood and Affect: Mood normal. Behavior: Behavior normal. Thought Content: Thought content normal. Judgment: Judgment normal. Labs and ECG Hematology Results from last 7 days Lab Units 05/08/21 0656 05/07/21 0952 05/07/21 0607 05/04/21 0643 05/03/21 0711 WBC AUTO x10e3/uL 7.9 7.4 -- -- 7.4 HEMOGLOBIN g/dL 8.0* 8.5* 7.9* < > 7.9* HEMATOCRIT % 27.3* 29.2* 26.8* < > 27.2* MCV fL 86 88 -- -- 86 PLATELETS AUTO x10e3/uL 224 252 -- -- 308 < > = values in this interval not displayed. Chemistries Results from last 7 days Lab Units 05/08/21 0656 05/07/21 0607 05/06/21 0615 SODIUM mmol/L 142 142 143 POTASSIUM mmol/L 4.0 4.4 3.1* CHLORIDE mmol/L 106 105 104 CO2 mmol/L 28 29 30* BUN mg/dL 12.0 13.0 12.0 CREATININE mg/dL 1.45* 1.51* 1.43* GLUCOSE mg/dL 141* 134* 70 CALCIUM, SERUM mg/dL 8.3* 8.4* 8.7 MAGNESIUM mg/dL 1.7 2.2 1.8 Estimated Creatinine Clearance: 31.3 mL/min (A) (by C-G formula based on SCr of 1.45 mg/dL (H)). Coagulation Studies No lab exists for component: PROTIME, PTT Urinalysis Results from last 7 days Lab Units 05/07/21 0352 COLOR, URINALYSIS Yellow CLARITY UA Turbid* SPECIFIC GRAVITY, URINALYSIS 1.025 PH, URINALYSIS pH 6.0 LEUKOCYTE ESTERASE, URINALYSIS Large* NITRITE, URINALYSIS Negative PROTEIN, URINALYSIS mg/dL 100 * GLUCOSE, URINALYSIS mg/dL Negative KETONES, URINALYSIS mg/dL Negative UROBILINOGEN, URINALYSIS EU/dL 0.2 (Normal) BILIRUBIN, URINALYSIS Negative BLOOD, URINALYSIS Moderate* RBC, URINALYSIS /HPF 3-10* WBC, URINALYSIS /HPF 11-50* BACTERIA, URINALYSIS /HPF Moderate* SQUAMOUS EPITHELIAL CELLS, URINE /HPF Occasional Microbiology Urine culture Hafnia Alvei Diagnostic Imaging Imaging results: XR CHEST [address] [place]. [address] PATIENT NAME: SHIRIN AGUILLON : 1945 GENDER: F EXAM DATE: 04/23/2021 16:33 ORDERED FROM: [facility] ORDERING PHYSICIAN: JORDAN RAMSEY CC: -- - - - CONTRAST: READING STATION ID: [id number] mGy: PROCEDURE: XR CHEST 1 VIEW INDICATIONS: Dobhoff placement - in place TECHNIQUE: One view of the chest was acquired. COMPARISON: [facility], XR CHEST 1 VIEW, 04/22/2021, 15:54. FINDINGS: Surgical changes and devices: Dobbhoff tube tip is in distal stomach lumen below the right hemidiaphragm. Fusion hardware in lumbar spine is seen. Lungs and pleura: Pulmonary vascular congestion is seen. No significant pleural effusion or gross pneumothorax. Mild pulmonary edema is seen. Mediastinum: Mediastinal contours appear normal. Heart size is enlarged. Bones and chest wall: No suspicious bony lesions. Overlying soft tissues appear unremarkable. IMPRESSION: Dobbhoff tube tip is in the region of distal stomach lumen below the right hemidiaphragm. No free air under the diaphragm. Mild pulmonary vascular congestion. No gross pneumothorax. Reviewed by: Jacinto Rodriguez M.D. on 04/23/2021 at 16:54 Approved by: Jacinto Rodriguez M.D. on 04/23/2021 at 16:57 ECHOCARDIOGRAM COMPLETE Version: 1 Study ID: [id number] ?? [address] [address] Phone: ADULT ECHOCARDIOGRAM ?? Name: SHIRIN AGUILLON Study Date: 04/23/2021, 7: 55 AM : 1945 BP: 147 / 80 mmHg Gender: Female Height: 60 in Age: 75 Years Weight: 187.393 lb Pt. Location: [facility]^2008^2008-10 BSA: 1.82 m? Ordering: JORDAN RAMSEY [facility] Carli Vasquez Reason For Study: Dyspnea History: Summary Statements This is a technically difficult study characterized by limited endocardial visualization. Next time recommend Definity echocontrast if possible. Normal sinus rhythm with occasional PAC's. Normal LV size and wall thickness. There is subtle mid-anterior hypokinesis, but normal wall motion otherwise. EF is 50-55%. Stage II diastolic dysfunction. Normal chamber sizes. Aortic sclerosis without stenosis. Otherwise no valvular abnormalities. Compared to prior study 09/2019, focal wall motion abnormality involving mid-anterior segment is newly described Electronically signed by: Lucinda Bahena M.D. 04/23/2021, 3: 19 PM Electronically signed by: Ezekiel Garcia DO 05/08/2021 at 7:45 AM Portions of today's documentation have been created with the assistance of voice recognition software. Therefore, it may contain anomalous punctuation, anomalous independent misrecognitions, word substitutions, insertions or omissions. Occasional wrong-word or phonetically similar substitutions may also occur, all due to the inherent limitations of voice recognition software. Attempts to correct the above have been made by Ezekiel Garcia DO but it is recommended that the chart be read carefully to recognize, using context, where the substitutions may have occurred. Janeth Malone - 05/07/2021 2:21 PM PDT Social Work Discharge Planning Faxed notes to [facility] F: starting with date 05/01/21 as well as facesheet. Updated PRECIPITATOR OPERATOR that this task was completed Russell Brown LCSW - 05/07/2021 1:22 PM PDT SOCIAL WORK: PROGRESS NOTE Data: EMR reviewed. Pt is on day 21 for Problem List Items Addressed This Visit Musculoskeletal * (Principal) Pressure injury of skin of right calf Relevant Orders [place]. TEST - (Completed) Culture, Deep Abscess Aerobic&Anaerobic w/gram stain (Completed) Other Visit Diagnoses Acute renal failure, unspecified acute renal failure type (CMS/HCC) - Primary Hyperkalemia Sepsis due to skin infection ([facility]/HCC) Acute anemia Occult blood in stools Acute cystitis without hematuria Patient is medically stable for discharge at this time. Per discussion with provider, discharge needs include SNF. Social Work consults to coordinate theseservices have been ordered by physician at this time. PRECIPITATOR OPERATOR placed a call to [facility] and spoke to Lupis who reports she is not familiar with pt and will have someone call PRECIPITATOR OPERATOR back marielos. Barriers to Discharge Include: [facility] acceptance Assessment: Not able to assess at this time. Plan: Anticipate patient to discharge to SNF. PRECIPITATOR OPERATOR will continue to follow pt's clinical course. LYLE GoldsteinW Sim Caicedo, HEAD CHAR FILTER TANK TENDER - 05/07/2021 12:10 PM PDT Inpatient Physical Therapy Treatment Note Patient Name: Shirin Aguillon MR#: [id number] Today's Date: 05/07/2021 PT Last Visit PT Received On: 05/07/21 HEAD CHAR FILTER TANK TENDER Visit Count: 5 Precautions General Precautions: BL calf wounds, lacks motivation Subjective: Cognition Arousal/Alertness: Appropriate responses to stimuli Pain Assessment Pain Assessment: 0-10 Pain Score: (unrated) Pain Type: Chronic pain Pain Location: Leg Pain Orientation: Right, Left, Posterior Pain Descriptors: Burning Pain Frequency: With activity Objective/Interventions: Mobility Supine to Sit: Moderate assistance (HOB 30d, BUE OVER HAULER HELPER for trunk) Sit to Supine: Minimal assistance (HOB flat, Jorge LEs) Sit to Stand: Minimal assistance (VC hand placement, bed elevated, Jorge sec to unsteady UE transition from EOB to FWW) Sit-Stand Devices Used: Front wheeled walker (BUEs EOB) Stand to Sit: Contact guard assistance Stand-Sit Devices Used: Front wheeled walker Ambulation: Contact guard assistance Ambulation: Devices Used: Front wheeled walker Ambulation Distance (Feet): 2 Feet Sitting Balance: Supports self independently Goals and Progress: Plan Assessment: Lou was found resting in bed with her son at bedside, agreeable to participate in skilled PT. Lou continues to show low motivation/tolerance for mobility despite education. She did not respond well to encouragement to push herself a bit more than she has been, you don't understand! She required instruction for proper hand placement during sit to stands and had an unsteady UE transition from the EOB to the FWW handles requiring Jorge for balance. She ambulated a few feet at bedsidebefore reporting her legs were burning and requesting return to bed, MAX encouragement to have hersit up in the chair for lunch but she adamantly refused. She remains in bed with her son at bedside,nsg notified. Recommend trial of 24/7 assist and daily PT to maximize functional mobility with the hopes of returning to PLOF but pt may be more appropriate for LTC given her low motivation and limited activity tolerance. Progress: Slow progress, decreased activity tolerance Multidisciplinary Problems IP Therapy Problems (Active) Problem: Physical Therapy - Adult Goal Priority Disciplines By Discharge: Performs mobility at highest level of function for planned discharge setting. See evaluation for individualized goals. PT Description: 04/24/21 *pt to perform bed mobility with HOB flat, no rails and with stand-by assistance *pt to transfer with front wheeled walker with stand-by assistance *pt to ambulate 150 feet with front wheeled walker and with stand-by assistance *pt to ascend and descend 7 stairs with hand rail and with stand-by assistance in order to safely negotiate home environment Plan: Recommendation IP PT Status: 2 PT Frequency (in-house): 2-3x/wk Post-discharge recommendation: 24 hour supervision/assist Discharge Transportation: [facility] PT Frequency upon discharge: Daily Ricardo Rosa DO - 05/07/2021 7:[address] [facility]: INPATIENT PROGRESS NOTE Patient Name: Shirin Aguillon Date of : 1945 Age: 75 y.o. Code Status: Full Code Primary Care Physician: Rogelio Braga MD Admitting Provider: Ana Maria Narvaez MD Attending Provider: Ezekiel Garcia DO Admit Date: 04/15/2021 Date of Service: 05/07/2021 Hospital Day: 21 ASSESSMENT & PLAN Shirin Aguillon is a 75 y.o. female anticoagulated with Eliquis??with a hx notable for type II diabetes mellitus, hypertension, hyperlipidemia, CKD, and rheumatoid arthritis??who presents to the ED??for evaluation of altered mental status and found to be in CAMILLE with hyperkalemia. Patient was treatedwith temporary hemodialysis and course of antibiotics for sepsis. Currently being treated for failure to thrive and deconditioning, autoimmune disease and urinary tract infection. TODAY'S PLAN: - Antibiotics for recurrent UTI, probiotic - Restart part of home regimen for autoimmune disease - Hold EMILY, IVF - Appreciate repeat evaluation by wound care for interval evaluation and any further recs ACTIVELY MANAGED PROBLEMS (problems are generally active day to day and carried forward): Cystitis, acute on chronic, present on admission, resolved and now recurred & active Previously patient had evidence of Urogenital sepsis on admission, treated with broad spectrum antibiotics and a urine culture did not grow a pathogen. Pt has history of outpt Ciprofloxacin regimen, not currently taking per history and records. - 05/07 symptoms of encephalopathy, abdominal pain and polyuria - IV Abx coverage & probiotic, await culture & sensitivity - Consideration for ID recommendation on UTI prophylaxis? ie Fosfomycin etc Soft tissue ulcerated wounds of bilateral lower extremities, POA. Improving. 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 Patient reports she developed these wounds following an allergic reaction to TMP-SMX. She was followed by Rheumatology for this; previously on Xeljanz, Leflunomide and Sulfasalazine for Crohn's and seronegative RA. Followed by Dr Shepherd. Pt reports another [employer] sales consultant switched her to Prednisone daily however I am not able to view these records - S/p bilateral calf wound debridement per GS, Micro positive for light growth pseudomonas and zenaida albicans - Continue wound care. Examined 05/07, no evidence of subcutaneous infection - treatment of presumed autoimmune etiology and diabetes - Recommend Referral to Gen Surg for outpatient Biopsy Relative CAMILLE on Chronic kidney disease III, present on admission Baseline Cr around 1.2-1.3 during this admission, previous baseline around 1.1 prior. Likely she is at a stable baseline - UA / urine protein creatinine ratio exhibited significant diabetic nephropathy - Hold EMILY due to renal intolerance, d/w Nephro curbside - IVF. Consideration to consult nephrology if pt does not improve Cardiac Focal wall motion abnormality, present on admission, active Echo 04/21 exhibited area of wall motion abnormality, EF 50% (WNL). Seen by cardiology, recommended optimal medical management with outpt f/u - Continue Betablocker, statin, EMILY, apixaban - Recommend F/u outpt with cardiology in 2-3 weeks after discharge for f/u echo and evaluation Weakness, Fatigue & Deconditioning, POA, improving - Functional status prior to admission: Ambulates with a walker, stair chair at home, few stairs on her own. - Continue Physical therapy; recommending rehabilitation - SNF planning - Previously at [facility] - UA for renal disease exhibited squamous cells and bacteria, likely less reliable. May however explain pts vague symptoms - Repeat UA exhibited Type 2 diabetes mellitus uncontrolled, POA, chronic. Pt has had diabetes for many years but it was always well controlled until recent infections. Likely prednisone worsened her sugars and led to the infection. Hemoglobin A1c of 9 on admission -Glargine reduced on 04/27, discontinued on 04/28 -Sliding scale as needed plus lantus -F/u outpt for monitoring and/or oral medicines with pcp Diarrhea, not present on admission, improving. Previously Bloody and gelatinous stool. C. Difficile toxin PCR negative 04/22. Pt received antibiotics previously - stool bulking, electrolyte replacement as needed Decreased oral intake, not POA. Likely related to chronic disease (inflammatory) and decreased appetite from acute illness - Encourage food and fluid - No advance feeding interventions CHRONIC STABLE or RESOLVING PROBLEMS Prednisone therapy for inflammatory bowel disease and rheumatoid arthritis, present on admission - continue outpt Steroids oral Prednisone - Previously on Xeljanz, Leflunomide And Sulfasalazine. Reportedly discontinued this recently for prednisone and also discontinued outpatient Cipro for recurrent UTis - Discussed with Dr Shepherd Rheumatology 05/07, pt safe to resume Sulfasalazine for Crohn's. Presumably the ulcers are from IBD however not safe to resume xeljanz and leflunomide due to infection - Recommend F/u with outpt rheumatology outpt for mgmt Atrial fibrillation with rapid ventrilcular response , present on admission, chronic. RVR has Resolved. [id number] score of at least 4. No Afib notable on most recent Peggy patch outpatient -Continue her ambulatory diltiazem XR 240 mg and Apixaban Chronic anemia,??present on admission, stable and improving. Iron profile is compatible with anemia of chronic disease. -Continue to monitor hemoglobin transfusion threshold of 7 -Outpatient colonoscopy recommended Hypokalemia, not present on admission. Resolved. - Replete as needed. Secondary to diarrheal losses. Check & replete Magnesium as needed too Respiratory distress, present on admission. Resolved. -Underlying JACLYN, with metabolic stress from uremia, skin infection and diarrhea - Oxygen as needed UTI, acute, present on admission. Resolved. - Broad-spectrum coverage with IV cefepime completed Metabolic acidosis with respiratory partial compensation, not present on admission. Resolved. - ABG: pH 7.224, pCO2 19, HCO3 9, Lactic acid normal , CT abdomen negative - Bicarb drip initially and then discontinued once bicarb stabilized CAMILLE, acute, present on admission. Resolved. - Likely due to ATN from sepsis on CKD Stage 3 - Completed temporary dialysis, catheter removed Sepsis, acute, present on admission. Resolved. Body jerking, present on admission. Resolved. VTE Prophylaxis: apixaban Code Status: Full code Disposition: Anticipate discharge to: SNF in 1-2 days pending acceptance. SUBJECTIVE Chief Complaint Patient presents with ??? Altered Mental Status ??? Shortness of Breath Patient's Update Pt is smiling and in a great mood. Pt's son is present in the room. Pt is not fully engaged in the conversation but does not endorse any discomfort or pain until examination of the Left lower extremitywound Pt remarks she had discontinued her rheumatology regimen and also her cipro. Pt is a challenging historian Interval Update No new overnight events. OBJECTIVE First recorded vitals: Temp: 36.3 ??C (97.3 ??F) - BP: 90/49 - Heart Rate: (!) 106 - Resp: 20 - SpO2: 100 % O2 Flow Rate (L/min): 4 L/min Most recent vital signs: Most recent vitals: Temp: 36.4 ??C (97.5 ??F) - BP: 134/61 - Heart Rate: 71 - Resp: 18 - SpO2: 94 % O2 Flow Rate (L/min): 1 L/min Physical Exam Vitals reviewed. Constitutional: General: She is not in acute distress. Appearance: She is well-developed. She is obese. She is not ill-appearing. HENT: Head: Normocephalic. Eyes: General: No scleral icterus. Extraocular Movements: Extraocular movements intact. Neck: Trachea: No tracheal deviation. Cardiovascular: Rate and Rhythm: Normal rate and regular rhythm. Pulses: Normal pulses. Pulmonary: Effort: Pulmonary effort is normal. No respiratory distress. Breath sounds: No wheezing, rhonchi or rales. Abdominal: General: Abdomen is flat. Bowel sounds are normal. There is no distension. Palpations: Abdomen is soft. Tenderness: There is no abdominal tenderness. There is no guarding. Musculoskeletal: Right lower leg: No edema. Left lower leg: No edema. Comments: Moves all 4 limbs volitionally Left wound with yellow purulent drainage, no erythema surrounding, TTP in the medial aspect with mild induration Skin: Coloration: Skin is pale. Findings: Bruising present. No erythema. Neurological: Mental Status: She is alert. She is confused. Comments: Word finding difficulty, slowed speech Psychiatric: Speech: Speech is delayed. Behavior: Behavior is cooperative. Thought Content: Thought content normal. Cognition and Memory: Cognition is impaired. Comments: Elated mood, smiling, Large interval improvement Scheduled Hospital Meds apixaban, 5 mg, oral, BID atorvastatin, 40 mg, oral, Nightly carvediloL, 6.25 mg, oral, BID with meals diltiazem CD, 240 mg, oral, Daily insulin glargine, 6 Units, subcutaneous, Nightly insulin lispro, 0-5 Units, subcutaneous, Nightly insulin lispro, 0-6 Units, subcutaneous, TID with meals lisinopriL, 2.5 mg, oral, Daily magnesium chloride, 1 tablet, oral, Daily with breakfast miconazole, , Topical, BID pantoprazole, 40 mg, oral, q AM AC predniSONE, 5 mg, oral, Daily psyllium, 1 packet, oral, Daily sodium chloride, 1,000 mL, intravenous, Once LABS & DIAGNOSTICS Hematology Results from last 7 days Lab Units 05/07/21 0607 05/06/21 0615 05/05/21 0636 05/04/21 0643 05/03/21 0711 05/02/21 0709 05/02/21 0709 05/01/21 0921 05/01/21 0921 WBC AUTO x10e3/uL -- -- -- -- 7.4 -- 6.9 -- 7.9 HEMOGLOBIN g/dL 7.9* 9.4* 8.2* < > 7.9* < > 8.2* < > 8.8* HEMATOCRIT % 26.8* 31.3* 27.1* < > 27.2* < > 27.7* < > 29.8* MCV fL -- -- -- -- 86 -- 85 -- 84 PLATELETS AUTO x10e3/uL -- -- -- -- 308 -- 309 -- 363 < > = values in this interval not displayed. Chemistries Results from last 7 days Lab Units 05/06/21 0605/05/21 0636 05/04/21 0643 05/03/21 0711 05/02/21 0709 SODIUM mmol/L 143 140 142 < > 139 POTASSIUM mmol/L 3.1* 3.5 3.2* < > 3.2* CHLORIDE mmol/L 104 102 106 < > 102 CO2 mmol/L 30* 27 29 < > 27 BUN mg/dL 12.0 14.0 14.0 < > 14.0 CREATININE mg/dL 1.43* 1.46* 1.40* < > 1.28* GLUCOSE mg/dL 70 173* 126* < > 221* CALCIUM, SERUM mg/dL 8.7 8.0* 8.2* < > 8.2* MAGNESIUM mg/dL 1.8 1.5* -- -- 1.6 < > = values in this interval not displayed. Estimated Creatinine Clearance: 32 mL/min (A) (by C-G formula based on SCr of 1.43 mg/dL (H)). IMAGING Imaging results: XR CHEST [address] [place] [address] PATIENT NAME: SHIRIN AGUILLON : 1945 GENDER: F EXAM DATE: 04/23/2021 16:33 ORDERED FROM: [facility] ORDERING PHYSICIAN: JORDAN RAMSEY CC: -- - - - CONTRAST: READING STATION ID: [id number] mGy: PROCEDURE: XR CHEST 1 VIEW INDICATIONS: Dobhoff placement - in place TECHNIQUE: One view of the chest was acquired. COMPARISON: [facility], , XR CHEST 1 VIEW, 04/22/2021, 15:54. FINDINGS: Surgical changes and devices: Dobbhoff tube tip is in distal stomach lumen below the right hemidiaphragm. Fusion hardware in lumbar spine is seen. Lungs and pleura: Pulmonary vascular congestion is seen. No significant pleural effusion or gross pneumothorax. Mild pulmonary edema is seen. Mediastinum: Mediastinal contours appear normal. Heart size is enlarged. Bones and chest wall: No suspicious bony lesions. Overlying soft tissues appear unremarkable. IMPRESSION: Dobbhoff tube tip is in the region of distal stomach lumen below the right hemidiaphragm. No free air under the diaphragm. Mild pulmonary vascular congestion. No gross pneumothorax. Reviewed by: Jacinto Rodriguez M.D. on 04/23/2021 at 16:54 Approved by: Jacinto Rodriguez M.D. on 04/23/2021 at 16:57 ECHOCARDIOGRAM COMPLETE Version: 1 Study ID: [id number] [address] [address] Phone: ADULT ECHOCARDIOGRAM Name: SHIRIN AGUILLON Study Date: 04/23/2021, 7: 55 AM : 1945 BP: 147 / 80 mmHg Gender: Female Height: 60 in Age: 75 Years Weight: 187.393 lb Pt. Location: [facility]^2008^2008-10 BSA: 1.82 m? Ordering: JORDAN RAMSEY Referring: [facility] Clinician: Carli Vasquez Reason For Study: Dyspnea History: Summary Statements This is a technically difficult study characterized by limited endocardial visualization. Next time recommend Definity echocontrast if possible. Normal sinus rhythm with occasional PAC's. Normal LV size and wall thickness. There is subtle mid-anterior hypokinesis, but normal wall motion otherwise. EF is 50-55%. Stage II diastolic dysfunction. Normal chamber sizes. Aortic sclerosis without stenosis. Otherwise no valvular abnormalities. Compared to prior study 09/2019, focal wall motion abnormality involving mid-anterior segment is newly described Procedure: A two-dimensional transthoracic echocardiogram with color flow and Doppler was performed. The patient was supine and unable to follow breathing commands. Comparison is made with the echocardiogram of 10/21/2019. The patient was in normal sinus rhythm during the exam. Left Ventricle: The left ventricle is normal in size. Left ventricular wall thickness is at the upper limits of normal. There is no ventricular septal defect visualized. The ejection fraction is estimated to be 50-55%. There is subtle mid-anterior hypokinesis. Data is somewhat conflicting, in that patient has E/A reversal and PV systolic flow predominance. Yet e/e' ratio is >15. Right Ventricle: The right ventricle is normal in size and function. Atria: Both atria are normal in size. There is no Doppler evidence for an interatrial shunt. Mitral Valve: The mitral valve leaflets are slightly calcified. The mitral valve chordae are thickened and/or calcified. There is mild mitral regurgitation. Aortic Valve: The aortic valve is not well visualized. The aortic valve is slightly calcified. The aortic valve opens well. No aortic regurgitation is present. Tricuspid Valve: The tricuspid valve is not well visualized, but is grossly normal. There is a trace or physiologic amount of tricuspid regurgitation. The right ventricular systolic pressure is estimated to be at least 37 mmHg based on an estimated right atrial pressure of 8 mm Hg. Pulmonic Valve: The pulmonic valve is not well visualized. Great Vessels: The aortic root is normal size. The ascending aorta is normal in size. The IVC is of normal diameter and collapses less than 50% with a sniff. This suggests a right atrial pressure of 8 mm Hg. Pericardium/ Pleura: There is no pericardial effusion. There is an anterior echo-free space consistent with a fat pad. There is a small right-sided pleural effusion. 2D and M-Mode Measurements and Calculations LVIDd: 4.1 cm AoV Openin.78 cm LVIDs: 2.5 cm LVOT diam: 1.73 cm IVSd: 1.00 cm Ao root diam: 3.4 cm LVPWd: 1.03 cm asc Aorta Diam: 3.2 cm LV bai. diameter/BSA (cm/m^2): 2.27 LV sys. diameter/BSA (cm/m^2): 1.38 FS: 39.3 % EPSS: 0.92 cm RVD1 (basal): 2.9 cm IVC diam: 2.02 cm TAPSE: 2.21 cm LA A4 area: 18.1 cm? RA area: 12.3 cm? LA A2 area: 17.3 cm? RA long axis: 4.6 cm LA length (vol): 5.6 cm RA vol: 28.4 ml LA vol: 47.2 ml RA : 15.6 ml/m? LA vol index: 26.0 ml/m? Doppler Measurements and Calculations Ao V2 max: 142.6 cm/sec LVOT Max Ron: 93.9 cm/sec Ao V2 mean: 93.7 cm/sec LV V1 max P.5 mmHg Ao V2 VTI: 26.7 cm LV V1 VTI: 18.5 cm Ao max P.1 mmHg Ao mean P.9 mmHg DILAN(I,D): 1.64 cm? DILAN(V,D): 1.55 cm? DILAN indexed to BSA (cm^2/m^2): 0.90 sev ratio: 0.69 MV E max ron: 98.1 cm/sec MV dec time: 0.28 sec MV A max ron: 121.0 cm/sec MV E/A: 0.81 Med Peak E' Ron: 5.3 cm/sec E/E' med: 18.4 Lat Peak E' Ron: 7.2 cm/sec E/E' lat: 13.6 E/e' average: 16.0 TR max ron: 267.7 cm/sec PA V2 max: 81.1 cm/sec TR max P.7 mmHg PA mean P.59 mmHg MR PISA: 0.62 cm? Electronically signed by: Lucinda Bahena M.D. 04/23/2021, 3: 19 PM Electronically signed by: Ricardo Griffin DO 05/07/2021 7:08 AM Portions of today's documentation have been created with the assistance of voice recognition software. Therefore, it may contain anomalous punctuation, anomalous independent misrecognitions, word substitutions, insertions or omissions. Occasional wrong-word or phonetically similar substitutions may also occur, all due to the inherent limitations of voice recognition software. Attempts to correct the above have been made by Ricardo Griffin DO but it is recommended that the chart be read carefully to recognize, using context, where the substitutions may have occurred. Associated attestation - Ezekiel Garcia DO - 05/07/2021 6:48 PM PDT The patient was seen and examined together with Dr Griffin on 05/07/2021 and I agree with the history, exam and plan as outlined in the note above. Urine culture grew gram negative rods, cefepime started will monitor for encephalopathy. Stopped ACEi and provided IVF, if creatine continues to worsen will consult Nephrology.Russell Cantu LCSW - 05/06/2021 3:46 PM PDT SOCIAL WORK: PROGRESS NOTE Data: EMR reviewed. Pt is on day 20 for Problem List Items Addressed This Visit Musculoskeletal * (Principal) Pressure injury of skin of right calf Relevant Orders [facility]. TEST - (Completed) Culture, Deep Abscess Aerobic&Anaerobic w/gram stain (Completed) Other Visit Diagnoses Acute renal failure, unspecified acute renal failure type (CMS/HCC) - Primary Hyperkalemia Sepsis due to skin infection (CMS/HCC) Acute anemia Occult blood in stools Acute cystitis without hematuria Patient is medically stable for discharge at this time. Per discussion with provider, discharge needs include SNF. Social Work consults to coordinate theseservices have been ordered by physician at this time. PRECIPITATOR OPERATOR placed a call to [facility] to ask about review status and bed availability, PRECIPITATOR OPERATOR left a v/m requesting a call back. Barriers to Discharge Include: SNF bed Assessment: Not able to assess at this time. Plan: Anticipate patient to discharge to SNF. PRECIPITATOR OPERATOR will continue to follow pt's clinical course. LYLE GoldsteinW Miriam Howard - 05/06/2021 12:32 PM PDT Social Work Discharge Planning Faxed clinicals to [facility] [phone]. Updated PRECIPITATOR OPERATOR that this task was completed. Sim Caicedo PTA - 05/06/2021 10:38 AM PDT Inpatient Physical Therapy Treatment Note Patient Name: Shirin Augillon MR#: [id number] Today's Date: 05/06/2021 PT Last Visit PT Received On: 05/06/21 HEAD CHAR FILTER TANK TENDER Visit Count: 4 Precautions General Precautions: falls risk, lacks motivation Subjective: Cognition Safety Judgment: Good awareness of safety precautions Vital Signs Heart Rate: 95 Heart Rate Source: Monitor BP: (!) 159/84 MAP: 109 mmHg BP Location: Right arm BP Method: Automatic Patient Position: Sitting Objective/Interventions: Mobility Supine to Sit: Moderate assistance (HOB 30d, OVER HAULER HELPER pull to sit) Sit to Supine: Minimal assistance (HOB flat, Jorge LEs) Sit to Stand: Minimal assistance (Jorge w/HEAD CHAR FILTER TANK TENDER stabilizing FWW) Sit-Stand Devices Used: Front wheeled walker (BUEs FWW) Stand to Sit: Stand by assistance (VC reach back with UEs) Stand-Sit Devices Used: Front wheeled walker (UEs reaching back) Ambulation: Contact guard assistance, Stand by assistance (decreased step height/length, slow pace) Ambulation: Devices Used: Front wheeled walker Ambulation Distance (Feet): 15 Feet Sitting Balance: Supports self independently Standing Balance: Stand by assistance (w/FWW) Goals and Progress: Plan Assessment: Lou was pleasantly withdrawn and agreeable to participate in skilled PT with some encouragement and the agreement she could return to bed afterward. She doesn't always answer questions but when she does her answers are appropriate. She reports being very cold today. She required OVER HAULER HELPER for bed mobility but didn't seem to be putting forth much effort. She pulled herself into standing via the FWW, Jorge only to stabilize the FWW. Once she was in standing she did not have any bouts of instability and slowly ambulated around the bed w/o issue which is an improvement fromprevious PT sessions. She reported feeling dizzy upon reaching sitting, BP 159/84, Spo2 98% on RA, HR 77. Her symptoms increased as the session progressed and her BP was found to be 133/84, Spo2 98%, HR 95 bpm after ambulation, RN notified. She returned to bed, quickly bringing blankets over her face, educated on the importance of continued mobility and pushing herself more to regain strength. Recommend 24/7 assist and daily PT to progress functional mobility and activity tolerance. Progress: Slow progress, decreased activity tolerance Multidisciplinary Problems IP Therapy Problems (Active) Problem: Physical Therapy - Adult Goal Priority Disciplines By Discharge: Performs mobility at highest level of function for planned discharge setting. See evaluation for individualized goals. PT Description: 04/24/21 *pt to perform bed mobility with HOB flat, no rails and with stand-by assistance *pt to transfer with front wheeled walker with stand-by assistance *pt to ambulate 150 feet with front wheeled walker and with stand-by assistance *pt to ascend and descend 7 stairs with hand rail and with stand-by assistance in order to safely negotiate home environment Plan: Recommendation IP PT Status: (!) 1 PT Frequency (in-house): 5-7/wk Post-discharge recommendation: 24 hour supervision/assist Discharge Transportation: Cabulance, Private vehicle PT Frequency upon discharge: Daily icardo Griffin DO - 05/06/2021 8:[address] [facility]: INPATIENT PROGRESS NOTE Patient Name: Shirin Aguillon Date of : 1945 Age: 75 y.o. Code Status: Full Code Primary Care Physician: Rogelio Braga MD Admitting Provider: Ana Maria Narvaez MD Attending Provider: Ezekiel Garcia DO Admit Date: 04/15/2021 Date of Service: 05/06/2021 Hospital Day: 20 ASSESSMENT & PLAN Shirin Aguillon is a 75 y.o. female anticoagulated with Eliquis??with a hx notable for type II diabetes mellitus, hypertension, hyperlipidemia, CKD, and rheumatoid arthritis??who presents to the ED??for evaluation of altered mental status and found to be in CAMILLE with hyperkalemia. Patient was treatedwith temporary hemodialysis and course of antibiotics for sepsis. Currently being treated for failure to thrive and deconditioning. TODAY'S PLAN: - Replete K+ & Mg2+ - Started low dose EMILY - repeat UA - Continue active PT, up in chair for meals - SNF referral, may be placed soon ACTIVELY MANAGED PROBLEMS (problems are generally active day to day and carried forward): Soft tissue ulcerated wounds of bilateral lower extremities, POA. Improving. 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 She was followed by Rheumatology for this and Rx prednisone. The effect of prednisone likely led to the infection and has worsened diabetes as well as delaying wound healing from prednisone itself. Pseudomonas colonization. Diabetes diagnosis is new on this hospital admission - S/p bilateral calf wound debridement - Micro positive for light growth pseudomonas and zenaida albicans - Continue wound care. Completed a course of antibiotics Cardiac Focal wall motion abnormality, present on admission, active Echo 04/21 exhibited area of wall motion abnormality, EF 50% (WNL). Seen by cardiology, recommended optimal medical management with outpt f/u - Continue Betablocker, statin, EMILY, apixaban - Recommend F/u outpt with cardiology in 2-3 weeks after discharge for f/u echo and evaluation Weakness, Fatigue & Deconditioning, not POA, improving - Functional status prior to admission: Ambulates with a walker, stair chair at home, few stairs on her own. - Continue Physical therapy; recommending rehabilitation - SNF planning - Previously at [facility] - UA for renal disease exhibited squamous cells and bacteria, likely less reliable. May however explain pts vague symptoms - Repeat UA today Type 2 diabetes mellitus uncontrolled, POA, chronic. Pt has had diabetes for many years but it was always well controlled until recent infections. Likely prednisone worsened her sugars and led to the infection. Hemoglobin A1c of 9 on admission -Glargine reduced on 04/27, discontinued on 04/28 -Sliding scale as needed - Added low dose Lantus for better glycemic control -F/u outpt for monitoring and/or oral medicines with pcp Diarrhea, not present on admission, improving. Previously Bloody and gelatinous stool. C. Difficile toxin PCR negative 04/22. Pt received antibiotics previously - stool bulking, electrolyte replacement as needed Decreased oral intake, not POA. Likely related to chronic disease (inflammatory) and decreased appetite from acute illness - Encourage food and fluid - No advance feeding interventions CHRONIC STABLE or RESOLVING PROBLEMS Chronic kidney disease III, present on admission Baseline Cr around 1.2-1.3 during this admission, previous baseline around 1.1 prior. Likely she is at a stable baseline - UA / urine protein creatinine ratio exhibited significant diabetic nephropathy - Begin EMILY and recommend up titration to maximum tolerated dose per guidelines Atrial fibrillation with rapid ventrilcular response , present on admission, chronic. RVR has Resolved. [id number] score of at least 4. No Afib notable on most recent Peggy patch outpatient -Continue her ambulatory diltiazem XR 240 mg and Apixaban Chronic anemia,??present on admission, stable and improving. Iron profile is compatible with anemia of chronic disease. -Continue to monitor hemoglobin transfusion threshold of 7 -Outpatient colonoscopy recommended Hypokalemia, not present on admission. Resolved. - Replete as needed. Secondary to diarrheal losses. Check & replete Magnesium as needed too Respiratory distress, present on admission. Resolved. -Underlying JACLYN, with metabolic stress from uremia, skin infection and diarrhea - Oxygen as needed Prednisone therapy for inflammatory bowel disease and rheumatoid arthritis, present on admission - Steroids oral Prednisone - Recommend F/u with outpt rheumatology outpt for mgmt UTI, acute, present on admission. Resolved. - Broad-spectrum coverage with IV cefepime completed Metabolic acidosis with respiratory partial compensation, not present on admission. Resolved. - ABG: pH 7.224, pCO2 19, HCO3 9, Lactic acid normal , CT abdomen negative - Bicarb drip initially and then discontinued once bicarb stabilized CAMILLE, acute, present on admission. Resolved. - Likely due to ATN from sepsis on CKD Stage 3 - Completed temporary dialysis, catheter removed Sepsis, acute, present on admission. Resolved. Body jerking, present on admission. Resolved. VTE Prophylaxis: apixaban Code Status: Full code Disposition: Anticipate discharge to: SNF in 1-2 days pending acceptance. SUBJECTIVE Chief Complaint Patient presents with ??? Altered Mental Status ??? Shortness of Breath Patient's Update Pt feels a little better after seeing family visitors yesterday. She is very excited to hear she mayleave to SNF as early as tomorrow. She demonstrates significant word finding difficulty and anxiety when trying to describe her medical history and associated medical details. Interval Update No new overnight events. OBJECTIVE First recorded vitals: Temp: 36.3 ??C (97.3 ??F) - BP: 90/49 - Heart Rate: (!) 106 - Resp: 20 - SpO2: 100 % O2 Flow Rate (L/min): 4 L/min Most recent vital signs: Most recent vitals: Temp: 36.9 ??C (98.4 ??F) - BP: 123/83 - Heart Rate: 64 - Resp: 18 - SpO2: 95 % O2 Flow Rate (L/min): 1 L/min Physical Exam Vitals reviewed. Constitutional: General: She is not in acute distress. Appearance: She is well-developed. She is obese. She is not ill-appearing. HENT: Head: Normocephalic. Eyes: General: No scleral icterus. Extraocular Movements: Extraocular movements intact. Neck: Trachea: No tracheal deviation. Cardiovascular: Rate and Rhythm: Normal rate and regular rhythm. Pulses: Normal pulses. Pulmonary: Effort: Pulmonary effort is normal. No respiratory distress. Breath sounds: No wheezing, rhonchi or rales. Abdominal: General: Abdomen is flat. Bowel sounds are normal. There is no distension. Palpations: Abdomen is soft. Tenderness: There is no abdominal tenderness. There is no guarding. Musculoskeletal: Right lower leg: No edema. Left lower leg: No edema. Comments: Moves all 4 limbs volitionally Wounds wrapped, mild TTP Skin: Coloration: Skin is pale. Findings: Bruising present. No erythema. Neurological: Mental Status: She is alert. She is confused. Comments: Word finding difficulty Psychiatric: Speech: Speech is delayed. Behavior: Behavior is cooperative. Thought Content: Thought content normal. Cognition and Memory: Cognition is impaired. Comments: Mildly withdrawn Labile mood Scheduled Hospital Meds apixaban, 5 mg, oral, BID atorvastatin, 40 mg, oral, Nightly carvediloL, 6.25 mg, oral, BID with meals diltiazem CD, 240 mg, oral, Daily insulin glargine, 6 Units, subcutaneous, Nightly insulin lispro, 0-5 Units, subcutaneous, Nightly insulin lispro, 0-6 Units, subcutaneous, TID with meals lisinopriL, 2.5 mg, oral, Daily magnesium chloride, 1 tablet, oral, Daily with breakfast miconazole, , Topical, BID pantoprazole, 40 mg, oral, q AM AC potassium chloride, 40 mEq, oral, BID predniSONE, 5 mg, oral, Daily psyllium, 1 packet, oral, Daily sodium chloride, 1,000 mL, intravenous, Once LABS & DIAGNOSTICS Hematology Results from last 7 days Lab Units 05/06/21 0615 05/05/21 0636 05/04/21 0643 05/03/21 0711 05/03/21 0711 05/02/21 0709 05/02/21 0709 05/01/21 0921 05/01/2121 WBC AUTO x10e3/uL -- -- -- -- 7.4 -- 6.9 -- 7.9 HEMOGLOBIN g/dL 9.4* 8.2* 8.2* < > 7.9* < > 8.2* < > 8.8* HEMATOCRIT % 31.3* 27.1* 28.1* < > 27.2* < > 27.7* < > 29.8* MCV fL -- -- -- -- 86 -- 85 -- 84 PLATELETS AUTO x10e3/uL -- -- -- -- 308 -- 309 -- 363 < > = values in this interval not displayed. Chemistries Results from last 7 days Lab Units 05/06/21 0615 05/05/21 0636 05/04/21 0643 05/03/21 0711 05/02/21 0709 SODIUM mmol/L 143 140 142 < > 139 POTASSIUM mmol/L 3.1* 3.5 3.2* < > 3.2* CHLORIDE mmol/L 104 102 106 < > 102 CO2 mmol/L 30* 27 29 < > 27 BUN mg/dL 12.0 14.0 14.0 < > 14.0 CREATININE mg/dL 1.43* 1.46* 1.40* < > 1.28* GLUCOSE mg/dL 70 173* 126* < > 221* CALCIUM, SERUM mg/dL 8.7 8.0* 8.2* < > 8.2* MAGNESIUM mg/dL 1.8 1.5* -- -- 1.6 < > = values in this interval not displayed. Estimated Creatinine Clearance: 32 mL/min (A) (by C-G formula based on SCr of 1.43 mg/dL (H)). IMAGING Imaging results: XR CHEST [address] [place]. [address] PATIENT NAME: SHIRIN AGUILLON : 1945 GENDER: F EXAM DATE: 04/23/2021 16:33 ORDERED FROM: [facility] ORDERING PHYSICIAN: JORDAN RAMSEY CC: -- - - - CONTRAST: READING STATION ID: [id number] mGy: PROCEDURE: XR CHEST 1 VIEW INDICATIONS: Dobhoff placement - in place TECHNIQUE: One view of the chest was acquired. COMPARISON: [facility], CR, XR CHEST 1 VIEW, 04/22/2021, 15:54. FINDINGS: Surgical changes and devices: Dobbhoff tube tip is in distal stomach lumen below the right hemidiaphragm. Fusion hardware in lumbar spine is seen. Lungs and pleura: Pulmonary vascular congestion is seen. No significant pleural effusion or gross pneumothorax. Mild pulmonary edema is seen. Mediastinum: Mediastinal contours appear normal. Heart size is enlarged. Bones and chest wall: No suspicious bony lesions. Overlying soft tissues appear unremarkable. IMPRESSION: Dobbhoff tube tip is in the region of distal stomach lumen below the right hemidiaphragm. No free air under the diaphragm. Mild pulmonary vascular congestion. No gross pneumothorax. Reviewed by: Jacinto Rodriguez M.D. on 04/23/2021 at 16:54 Approved by: Jacinto Rodriguez M.D. on 04/23/2021 at 16:57 ECHOCARDIOGRAM COMPLETE Version: 1 Study ID: [id number] [address] [id number] Phone: ADULT ECHOCARDIOGRAM Name: SHIRIN AGUILLON Study Date: 04/23/2021, 7: 55 AM : 1945 BP: 147 / 80 mmHg Gender: Female Height: 60 in Age: 75 Years Weight: 187.393 lb Pt. Location: [facility]^2008^2008-10 BSA: 1.82 m? Ordering: JORDAN RAMSEY Referring: [facility] Hospitalist Clinician: Carli Vasquez Reason For Study: Dyspnea History: Summary Statements This is a technically difficult study characterized by limited endocardial visualization. Next time recommend Definity echocontrast if possible. Normal sinus rhythm with occasional PAC's. Normal LV size and wall thickness. There is subtle mid-anterior hypokinesis, but normal wall motion otherwise. EF is 50-55%. Stage II diastolic dysfunction. Normal chamber sizes. Aortic sclerosis without stenosis. Otherwise no valvular abnormalities. Compared to prior study 09/2019, focal wall motion abnormality involving mid-anterior segment is newly described Procedure: A two-dimensional transthoracic echocardiogram with color flow and Doppler was performed. The patient was supine and unable to follow breathing commands. Comparison is made with the echocardiogram of 10/21/2019. The patient was in normal sinus rhythm during the exam. Left Ventricle: The left ventricle is normal in size. Left ventricular wall thickness is at the upper limits of normal. There is no ventricular septal defect visualized. The ejection fraction is estimated to be 50-55%. There is subtle mid-anterior hypokinesis. Data is somewhat conflicting, in that patient has E/A reversal and PV systolic flow predominance. Yet e/e' ratio is >15. Right Ventricle: The right ventricle is normal in size and function. Atria: Both atria are normal in size. There is no Doppler evidence for an interatrial shunt. Mitral Valve: The mitral valve leaflets are slightly calcified. The mitral valve chordae are thickened and/or calcified. There is mild mitral regurgitation. Aortic Valve: The aortic valve is not well visualized. The aortic valve is slightly calcified. The aortic valve opens well. No aortic regurgitation is present. Tricuspid Valve: The tricuspid valve is not well visualized, but is grossly normal. There is a trace or physiologic amount of tricuspid regurgitation. The right ventricular systolic pressure is estimated to be at least 37 mmHg based on an estimated right atrial pressure of 8 mm Hg. Pulmonic Valve: The pulmonic valve is not well visualized. Great Vessels: The aortic root is normal size. The ascending aorta is normal in size. The IVC is of normal diameter and collapses less than 50% with a sniff. This suggests a right atrial pressure of 8 mm Hg. Pericardium/ Pleura: There is no pericardial effusion. There is an anterior echo-free space consistent with a fat pad. There is a small right-sided pleural effusion. 2D and M-Mode Measurements and Calculations LVIDd: 4.1 cm AoV Openin.78 cm LVIDs: 2.5 cm LVOT diam: 1.73 cm IVSd: 1.00 cm Ao root diam: 3.4 cm LVPWd: 1.03 cm asc Aorta Diam: 3.2 cm LV bai. diameter/BSA (cm/m^2): 2.27 LV sys. diameter/BSA (cm/m^2): 1.38 FS: 39.3 % EPSS: 0.92 cm RVD1 (basal): 2.9 cm IVC diam: 2.02 cm TAPSE: 2.21 cm LA A4 area: 18.1 cm? RA area: 12.3 cm? LA A2 area: 17.3 cm? RA long axis: 4.6 cm LA length (vol): 5.6 cm RA vol: 28.4 ml LA vol: 47.2 ml RA : 15.6 ml/m? LA vol index: 26.0 ml/m? Doppler Measurements and Calculations Ao V2 max: 142.6 cm/sec LVOT Max Ron: 93.9 cm/sec Ao V2 mean: 93.7 cm/sec LV V1 max P.5 mmHg Ao V2 VTI: 26.7 cm LV V1 VTI: 18.5 cm Ao max P.1 mmHg Ao mean P.9 mmHg DILAN(I,D): 1.64 cm? IDLAN(V,D): 1.55 cm? DILAN indexed to BSA (cm^2/m^2): 0.90 sev ratio: 0.69 MV E max ron: 98.1 cm/sec MV dec time: 0.28 sec MV A max ron: 121.0 cm/sec MV E/A: 0.81 Med Peak E' Ron: 5.3 cm/sec E/E' med: 18.4 Lat Peak E' Ron: 7.2 cm/sec E/E' lat: 13.6 E/e' average: 16.0 TR max ron: 267.7 cm/sec PA V2 max: 81.1 cm/sec TR max P.7 mmHg PA mean P.59 mmHg MR PISA: 0.62 cm? Electronically signed by: Lucinda Bahena M.D. 04/23/2021, 3: 19 PM Electronically signed by: Ricardo Griffin DO 05/06/2021 7:20 PM Portions of today's documentation have been created with the assistance of voice recognition software. Therefore, it may contain anomalous punctuation, anomalous independent misrecognitions, word substitutions, insertions or omissions. Occasional wrong-word or phonetically similar substitutions may also occur, all due to the inherent limitations of voice recognition software. Attempts to correct the above have been made by Ricardo Griffin DO but it is recommended that the chart be read carefully to recognize, using context, where the substitutions may have occurred. Associated attestation - Ezekiel Garcia DO - 05/07/2021 4:40 PM PDT The patient was seen and examined together with Dr Griffin on 05/07/2021 and I agree with the history, exam and plan as outlined in the note above.Theresa Puga, CHIQUIS - 05/06/2021 7:56 AM PDT NUTRITION FOLLOW UP: ASSESS: 75 yo F admitted for sepsis and CAMILLE with hyperkalemia. Urine output improved, dialysis beingheld per notes. Pt s/p debridement of bilateral calf wound 04/18. Pt had a prolonged NPO status so Dobhoff was placed 04/22, TF was tolerated at goal. Pt pulled out NGT 04/25, tube feeds off. Diet advanced per ST 04/26. PO 0-100%. ST re-eval pt on 04/28, diet remains mechanical soft thin liquids. Per RN ptremains A&Ox1-2 with delayed responses, mild improvement in po intake. MD notes indicate no advance feeding interventions with decreased oral intake (04/30). PMHX: Arthritis, T2DM, PNA, HLD, HTN, kidney disease, UTI LABS: K+3.1, Bone Char Operator 1.43 MEDS: Reviewed. Insulin, prednisone GI: BM 05/03 SKIN: ulcer on R& L calf, stg 2 PI on coccyx CURRENT WT: 76.2 kg, BMI 32.81 kg/m2, IBW: 45.5 kg, admit wt: 72.4kg DIET: Mech soft, thin liq. 1:1 assist PO 0-75%; mild improvement NUTRITION SUPPORT: (OFF) Glucerna 1.5 @ goal 50 ml/hr, flush 135 ml q 2 hr. ESTIMATED NEEDS: BMI, wounds Calories: 9231-7382 kcal/day (20-25 kcal/kg BW) Protein: 55-70 g/day (1.2-1.5 g/kg IBW) Fluids: 2125-2550ml/day (25-30 ml/kg) NUTRITION DIAGNOSIS: 1.) Inadequate oral intake related to decreased ability to consume sufficient energy as evidenced bycurrent NPO status.---IMPROVING 2.) Increased kcal/pro needs related to increased nutrient demand as evidence by pt with multiple pressure injuries. --PERSISTS 3.) Chew/swallow difficulty due to AMS as evidenced by modified diet texture per AU PAIR -- PERSISTS. NUTRITION INTERVENTION: 1.) Continue current diet per speech therapy. Consider tube feeding if inline with pt goals of care. 2.) Banatrol ordered per RN to help w/ diarrhea. MONITOR/EVALUATE: PO intake, diet tolerance vs TF? GI, wounds, labs, POC, nutrition status. Follow per high nutrition risk guidelines Sim Caicedo PTA - 05/05/2021 4:55 PM PDT Attempted 3x today but pt was not appropriate/unwilling to participate; during 1st attempt pt had just returned to bed and did not want to get back up, during 2nd attempt she had just gotten to the chair for a bed bath, on 3rd attempt she was eating lunch in bed and declined to get up to the chair. PTwill cont to follow. Ricardo Lynn DO - 05/05/2021 9:[address] [facility]: INPATIENT PROGRESS NOTE Patient Name: Shirin Aguillon Date of : 1945 Age: 75 y.o. Code Status: Full Code Primary Care Physician: Rogelio Braga MD Admitting Provider: Ana Maria Narvaez MD Attending Provider: Ezekiel Garcia DO Admit Date: 04/15/2021 Date of Service: 05/05/2021 Hospital Day: 19 ASSESSMENT & PLAN Shirin Aguillon is a 75 y.o. female anticoagulated with Eliquis??with a hx notable for type II diabetes mellitus, hypertension, hyperlipidemia, CKD, and rheumatoid arthritis??who presents to the ED??for evaluation of altered mental status and found to be in CAMILLE with hyperkalemia. TODAY'S PLAN: - Replete K+ & Mg2+, assess urine renal disease markers for medical optimization, IV hydration for malaise and possible dehydration - Continue active PT, up in chair for meals - SNF referral, awaiting placement ACTIVELY MANAGED PROBLEMS (problems are generally active day to day and carried forward): Diabetic soft tissue infection, POA. Stable. Pseudomonas colonization. Diabetes diagnosis is new on this hospital admission - S/p bilateral calf wound debridement - Micro positive for light growth pseudomonas and zenaida albicans - Continue wound care. Completed antibiotics Cardiac Focal wall motion abnormality, present on admission, active Echo 04/21 exhibited area of wall motion abnormality, EF 50% (WNL). Seen by cardiology, recommended optimal medical management with outpt f/u - Continue Betablocker, statin. Will hold off on EMILY for now due to recent renal failure, recommend consider EMILY as outpt. Blood pressures acceptable - Recommend F/u outpt with cardiology in 2-3 weeks Deconditioning, not POA, improving - Functional status prior to admission: Ambulates with a walker, stair chair at home, few stairs on her own. - Continue Physical therapy; recommending rehabilitation - SNF planning - Previously at [facility] Type 2 diabetes mellitus uncontrolled, POA, new diagnosis for the pt. Hemoglobin A1c of 9 on admission -Glargine reduced on 04/27, discontinued on 04/28 -Sliding scale as needed - Added low dose Lantus for better glycemic control -F/u outpt for monitoring and/or oral medicines with pcp Diarrhea, not present on admission, improved. Previously Bloody and gelatinous stool. C. Difficile toxin PCR negative 04/22. - Patient has received antibiotics since admission - Metamucil, Banana flakes if needed Decreased oral intake, not POA. -Encourage food and fluid -No advance feeding interventions CHRONIC STABLE or RESOLVING PROBLEMS Chronic kidney disease III, present on admission Baseline Cr around 1.2-1.3 during this admission, previous baseline around 1.1 prior. Likely she is at a stable baseline - Avoid nephrotoxins & optimize renoprotection - Will reassess urine with UA & Protein creatinine/ratio for whether EMILY/ARB will be needed Atrial fibrillation with rapid ventrilcular response , present on admission, chronic. RVR has Resolved. [id number] score of at least 4. No Afib notable on most recent Peggy patch outpatient -Continue her ambulatory diltiazem XR 240 mg, and Apixaban Chronic anemia, possible GI bleed,??present on admission, stable and improving. Iron profile is compatible with anemia of chronic disease. -Continue to monitor hemoglobin transfusion threshold of 7 -Outpatient colonoscopy recommended Hypokalemia, not present on admission. Resolved. - Replete as needed. Secondary to diarrheal losses. Check & replete Magnesium as needed too Respiratory distress, present on admission. Resolved. -Underlying JACLYN, with metabolic stress from uremia, skin infection and diarrhea - Oxygen as needed Prednisone therapy for inflammatory bowel disease and rheumatoid arthritis, present on admission - Steroids oral Prednisone - Recommend F/u with outpt rheumatology outpt for mgmt UTI, acute, present on admission. Resolved. - Broad-spectrum coverage with IV cefepime complete Metabolic acidosis with respiratory partial compensation, not present on admission. Resolved. - ABG: pH 7.224, pCO2 19, HCO3 9, Lactic acid normal , CT abdomen negative - Bicarb drip initially and then discontinued once bicarb stabilized CAMILLE, acute, present on admission. Resolved. - Likely due to ATN from sepsis on CKD Stage 3 - Completed temporary dialysis, catheter removed Sepsis, acute, present on admission. Resolved. Body jerking, present on admission. Resolved. VTE Prophylaxis: apixaban Code Status: Full code Disposition: Anticipate discharge to: SNF in 1-2 days pending acceptance. SUBJECTIVE Chief Complaint Patient presents with ??? Altered Mental Status ??? Shortness of Breath Patient's Update Pt states she wishes to see her family. She is withdrawn and does not participate fully in the morning interview. She endorses back pain, endorses she feels depressed. She has lived on [facility] for 17 years Interval Update No new overnight events. OBJECTIVE First recorded vitals: Temp: 36.3 ??C (97.3 ??F) - BP: 90/49 - Heart Rate: (!) 106 - Resp: 20 - SpO2: 100 % O2 Flow Rate (L/min): 4 L/min Most recent vital signs: Most recent vitals: Temp: 36.7 ??C (98.1 ??F) - BP: (!) 146/62 - Heart Rate: 76 - Resp: 18 - SpO2: 94 % O2 Flow Rate (L/min): 1 L/min Physical Exam Vitals reviewed. Constitutional: General: She is not in acute distress. Appearance: She is well-developed. She is obese. She is not ill-appearing. HENT: Head: Normocephalic. Eyes: General: No scleral icterus. Neck: Trachea: No tracheal deviation. Cardiovascular: Rate and Rhythm: Normal rate and regular rhythm. Pulses: Normal pulses. Pulmonary: Effort: Pulmonary effort is normal. No respiratory distress. Breath sounds: No wheezing, rhonchi or rales. Abdominal: General: There is no distension. Tenderness: There is no abdominal tenderness. There is no guarding. Musculoskeletal: Right lower leg: No edema. Left lower leg: No edema. Comments: Moves all 4 limbs volitionally Wounds wrapped, mild TTP Skin: Coloration: Skin is pale. Findings: Bruising present. No erythema. Neurological: Mental Status: She is alert. She is confused. Psychiatric: Speech: Speech is delayed. Behavior: Behavior is cooperative. Thought Content: Thought content normal. Cognition and Memory: Cognition is impaired. Comments: Patient with exasperated withdrawn affect Labile mood Scheduled Hospital Meds apixaban, 5 mg, oral, BID atorvastatin, 40 mg, oral, Nightly carvediloL, 6.25 mg, oral, BID with meals diltiazem CD, 240 mg, oral, Daily insulin glargine, 6 Units, subcutaneous, Nightly insulin lispro, 0-5 Units, subcutaneous, Nightly insulin lispro, 0-6 Units, subcutaneous, TID with meals magnesium chloride, 1 tablet, oral, Daily with breakfast magnesium sulfate, 2 g, intravenous, Once miconazole, , Topical, BID pantoprazole, 40 mg, oral, q AM AC predniSONE, 5 mg, oral, Daily psyllium, 1 packet, oral, Daily LABS & DIAGNOSTICS Hematology Results from last 7 days Lab Units 05/05/21 0636 05/04/21 0643 05/03/21 0711 05/02/21 0709 05/02/21 0705/01/21 0905/01/21 0921 WBC AUTO x10e3/uL -- -- 7.4 -- 6.9 -- 7.9 HEMOGLOBIN g/dL 8.2* 8.2* 7.9* < > 8.2* < > 8.8* HEMATOCRIT % 27.1* 28.1* 27.2* < > 27.7* < > 29.8* MCV fL -- -- 86 -- 85 -- 84 PLATELETS AUTO x10e3/uL -- -- 308 -- 309 -- 363 < > = values in this interval not displayed. Chemistries Results from last 7 days Lab Units 05/05/21 0636 05/04/21 0643 05/03/21 0711 05/02/21 0709 05/02/21 0705/01/2192005/01/21 0921 SODIUM mmol/L 140 142 143 < > 139 < > 143 POTASSIUM mmol/L 3.5 3.2* 3.6 < > 3.2* < > 3.4* CHLORIDE mmol/L 102 106 107 < > 102 < > 103 CO2 mmol/L 27 29 29 < > 27 < > 26 BUN mg/dL 14.0 14.0 14.0 < > 14.0 < > 14.0 CREATININE mg/dL 1.46* 1.40* 1.37* < > 1.28* < > 1.23* GLUCOSE mg/dL 173* 126* 102* < > 221* < > 194* CALCIUM, SERUM mg/dL 8.0* 8.2* 8.3* < > 8.2* < > 8.5 MAGNESIUM mg/dL 1.5* -- -- -- 1.6 -- 1.3* < > = values in this interval not displayed. Estimated Creatinine Clearance: 31 mL/min (A) (by C-G formula based on SCr of 1.46 mg/dL (H)). IMAGING Imaging results: XR CHEST [address] [place]. [address] PATIENT NAME: SHIRIN AGUILLON : 1945 GENDER: F EXAM DATE: 04/23/2021 16:33 ORDERED FROM: [facility] ORDERING PHYSICIAN: JORDAN RAMSEY CC: -- - - - CONTRAST: READING STATION ID: [id number] mGy: PROCEDURE: XR CHEST 1 VIEW INDICATIONS: Dobhoff placement - in place TECHNIQUE: One view of the chest was acquired. COMPARISON: [facility], , XR CHEST 1 VIEW, 04/22/2021, 15:54. FINDINGS: Surgical changes and devices: Dobbhoff tube tip is in distal stomach lumen below the right hemidiaphragm. Fusion hardware in lumbar spine is seen. Lungs and pleura: Pulmonary vascular congestion is seen. No significant pleural effusion or gross pneumothorax. Mild pulmonary edema is seen. Mediastinum: Mediastinal contours appear normal. Heart size is enlarged. Bones and chest wall: No suspicious bony lesions. Overlying soft tissues appear unremarkable. IMPRESSION: Dobbhoff tube tip is in the region of distal stomach lumen below the right hemidiaphragm. No free air under the diaphragm. Mild pulmonary vascular congestion. No gross pneumothorax. Reviewed by: Jacinto Rodriguez M.D. on 04/23/2021 at 16:54 Approved by: Jacinto Rodriguez M.D. on 04/23/2021 at 16:57 ECHOCARDIOGRAM COMPLETE Version: 1 Study ID: [id number] [address] [address] Phone: ADULT ECHOCARDIOGRAM Name: SHIRIN AGUILLON Study Date: 04/23/2021, 7: 55 AM : 1945 BP: 147 / 80 mmHg Gender: Female Height: 60 in Age: 75 Years Weight: 187.393 lb Pt. Location: [facility]^2008^2008-10 BSA: 1.82 m? Ordering: JORDAN RAMSEY Referring: [facility] Hospitalist Clinician: Carli Vasquez Reason For Study: Dyspnea History: Summary Statements This is a technically difficult study characterized by limited endocardial visualization. Next time recommend Definity echocontrast if possible. Normal sinus rhythm with occasional PAC's. Normal LV size and wall thickness. There is subtle mid-anterior hypokinesis, but normal wall motion otherwise. EF is 50-55%. Stage II diastolic dysfunction. Normal chamber sizes. Aortic sclerosis without stenosis. Otherwise no valvular abnormalities. Compared to prior study 09/2019, focal wall motion abnormality involving mid-anterior segment is newly described Procedure: A two-dimensional transthoracic echocardiogram with color flow and Doppler was performed. The patient was supine and unable to follow breathing commands. Comparison is made with the echocardiogram of 10/21/2019. The patient was in normal sinus rhythm during the exam. Left Ventricle: The left ventricle is normal in size. Left ventricular wall thickness is at the upper limits of normal. There is no ventricular septal defect visualized. The ejection fraction is estimated to be 50-55%. There is subtle mid-anterior hypokinesis. Data is somewhat conflicting, in that patient has E/A reversal and PV systolic flow predominance. Yet e/e' ratio is >15. Right Ventricle: The right ventricle is normal in size and function. Atria: Both atria are normal in size. There is no Doppler evidence for an interatrial shunt. Mitral Valve: The mitral valve leaflets are slightly calcified. The mitral valve chordae are thickened and/or calcified. There is mild mitral regurgitation. Aortic Valve: The aortic valve is not well visualized. The aortic valve is slightly calcified. The aortic valve opens well. No aortic regurgitation is present. Tricuspid Valve: The tricuspid valve is not well visualized, but is grossly normal. There is a trace or physiologic amount of tricuspid regurgitation. The right ventricular systolic pressure is estimated to be at least 37 mmHg based on an estimated right atrial pressure of 8 mm Hg. Pulmonic Valve: The pulmonic valve is not well visualized. Great Vessels: The aortic root is normal size. The ascending aorta is normal in size. The IVC is of normal diameter and collapses less than 50% with a sniff. This suggests a right atrial pressure of 8 mm Hg. Pericardium/ Pleura: There is no pericardial effusion. There is an anterior echo-free space consistent with a fat pad. There is a small right-sided pleural effusion. 2D and M-Mode Measurements and Calculations LVIDd: 4.1 cm AoV Openin.78 cm LVIDs: 2.5 cm LVOT diam: 1.73 cm IVSd: 1.00 cm Ao root diam: 3.4 cm LVPWd: 1.03 cm asc Aorta Diam: 3.2 cm LV bai. diameter/BSA (cm/m^2): 2.27 LV sys. diameter/BSA (cm/m^2): 1.38 FS: 39.3 % EPSS: 0.92 cm RVD1 (basal): 2.9 cm IVC diam: 2.02 cm TAPSE: 2.21 cm LA A4 area: 18.1 cm? RA area: 12.3 cm? LA A2 area: 17.3 cm? RA long axis: 4.6 cm LA length (vol): 5.6 cm RA vol: 28.4 ml LA vol: 47.2 ml RA : 15.6 ml/m? LA vol index: 26.0 ml/m? Doppler Measurements and Calculations Ao V2 max: 142.6 cm/sec LVOT Max Ron: 93.9 cm/sec Ao V2 mean: 93.7 cm/sec LV V1 max P.5 mmHg Ao V2 VTI: 26.7 cm LV V1 VTI: 18.5 cm Ao max P.1 mmHg Ao mean P.9 mmHg DILAN(I,D): 1.64 cm? DILAN(V,D): 1.55 cm? DILAN indexed to BSA (cm^2/m^2): 0.90 sev ratio: 0.69 MV E max ron: 98.1 cm/sec MV dec time: 0.28 sec MV A max ron: 121.0 cm/sec MV E/A: 0.81 Med Peak E' Ron: 5.3 cm/sec E/E' med: 18.4 Lat Peak E' Ron: 7.2 cm/sec E/E' lat: 13.6 E/e' average: 16.0 TR max ron: 267.7 cm/sec PA V2 max: 81.1 cm/sec TR max P.7 mmHg PA mean P.59 mmHg MR RIVERAA: 0.62 cm? Electronically signed by: Lucinda Bahena M.D. 04/23/2021, 3: 19 PM Electronically signed by: Ricardo Griffin DO 05/05/2021 9:34 AM Portions of today's documentation have been created with the assistance of voice recognition software. Therefore, it may contain anomalous punctuation, anomalous independent misrecognitions, word substitutions, insertions or omissions. Occasional wrong-word or phonetically similar substitutions may also occur, all due to the inherent limitations of voice recognition software. Attempts to correct the above have been made by Ricardo Griffin DO but it is recommended that the chart be read carefully to recognize, using context, where the substitutions may have occurred. Associated attestation - Ezekiel Garcia DO - 05/05/2021 2:55 PM PDT The patient was seen and examined together with Dr Griffin on 05/05/2021 and I agree with the history, exam and plan as outlined in the note above. Creatinine rising, unclear why at this point but will trend labs after increase PO fluids and possible OVF. Patient is severely depressed. Awaiting SNF placement.Ricardo Griffin DO - 05/04/2021 8:[address] [facility]: INPATIENT PROGRESS NOTE Patient Name: Shirin BROWNINGN: [id number] Date of : 1945 Age: 75 y.o. Code Status: Full Code Primary Care Physician: Rogelio Braga MD Admitting Provider: Ana Maria Narvaez MD Attending Provider: Chris Julio MD Admit Date: 04/15/2021 Date of Service: 05/04/2021 Hospital Day: 18 ASSESSMENT & PLAN Shirin Aguillon is a 75 y.o. female anticoagulated with Eliquis??with a hx notable for type II diabetes mellitus, hypertension, hyperlipidemia, CKD, and rheumatoid arthritis??who presents to the ED??for evaluation of altered mental status and found to be in [place] with hyperkalemia. TODAY'S PLAN: - Replete K+ - Continue active PT, up in chair for meals - SNF referral, awaiting placement ACTIVELY MANAGED PROBLEMS (problems are generally active day to day and carried forward): Diabetic soft tissue infection, POA. Stable. Pseudomonas colonization. - S/p bilateral calf wound debridement - Micro positive for light growth pseudomonas and zenaida albicans - Continue wound care. Completed antibiotics Cardiac Focal wall motion abnormality, present on admission, active Echo 04/21 exhibited area of wall motion abnormality, EF 50% (WNL). Seen by cardiology, recommended optimal medical management with outpt f/u - Continue Betablocker, statin. Will hold off on EMILY for now due to recent renal failure, recommend consider EMILY as outpt. Blood pressures acceptable - Recommend F/u outpt with cardiology in 2-3 weeks Deconditioning, not POA. - Functional status prior to admission: Ambulates with a walker, stair chair at home, few stairs on her own. - Continue Physical therapy; recommending rehabilitation - SNF planning - Previously at [facility] Type 2 diabetes mellitus uncontrolled, POA. Hemoglobin A1c of 9. Now developing hypoglycemia due topoor oral intake -Glargine reduced on 04/27, discontinued on 04/28 -Sliding scale as needed - Added low dose Lantus for better glycemic control -F/u outpt for monitoring and/or oral medicines with pcp Diarrhea, not present on admission, improved. Previously Bloody and gelatinous stool. C. Difficile toxin PCR negative 04/22. - Patient has received antibiotics since admission - Metamucil, Banana flakes if needed Decreased oral intake, not POA. -Encourage food and fluid -No advance feeding interventions ACTIVE STABLE or RESOLVING PROBLEMS Atrial fibrillation with rapid ventrilcular response , present on admission. Resolved. [id number] score of at least 4. No Afib notable on most recent Peggy patch outpatient -Continue her ambulatory diltiazem XR 240 mg, and Apixaban Chronic anemia, possible GI bleed,??present on admission, stable and improving. Iron profile is compatible with anemia of chronic disease. -Continue to monitor hemoglobin transfusion threshold of 7 -Outpatient colonoscopy recommended Hypokalemia, not present on admission. Resolved. - Replete as needed. Secondary to diarrheal losses Respiratory distress, present on admission. Resolved. -Underlying JACLYN, with metabolic stress from uremia, skin infection and diarrhea - Oxygen as needed Prednisone therapy for inflammatory bowel disease and rheumatoid arthritis, present on admission - Steroids oral Prednisone - Recommend F/u with outpt rheumatology outpt for mgmt UTI, acute, present on admission. Resolved. - Broad-spectrum coverage with IV cefepime complete Metabolic acidosis with respiratory partial compensation, not present on admission. Resolved. - ABG: pH 7.224, pCO2 19, HCO3 9 - Lactic acid normal - CT abdomen negative - Bicarb drip initially and then discontinued once bicarb stabilized CAM[place]LE, acute, present on admission. Resolved. - Likely due to ATN from sepsis on CKD Stage 3 - Completed temporary dialysis, removed dialysis catheter Sepsis, acute, present on admission. Resolved. Body jerking, present on admission. Resolved. VTE Prophylaxis: apixaban Code Status: Full code Disposition: Anticipate discharge to: SNF in 1-2 days. SUBJECTIVE Chief Complaint Patient presents with ??? Altered Mental Status ??? Shortness of Breath Patient's Update Pt states she feels ok, appetite is improving daily. She states she feels polyuric & it is bothersome. Weight & urine output reviewed, appears stable in chart Interval Update Vital signs remained stable. No new overnight events. OBJECTIVE First recorded vitals: Temp: 36.3 ??C (97.3 ??F) - BP: 90/49 - Heart Rate: (!) 106 - Resp: 20 - SpO2: 100 % O2 Flow Rate (L/min): 4 L/min Most recent vital signs: Most recent vitals: Temp: 36.6 ??C (97.8 ??F) - BP: 138/83 - Heart Rate: 65 - Resp: 18 - SpO2: 97 % O2 Flow Rate (L/min): 1 L/min Physical Exam Vitals reviewed. Constitutional: General: She is not in acute distress. Appearance: She is well-developed. She is obese. She is not ill-appearing. HENT: Head: Normocephalic. Eyes: General: No scleral icterus. Neck: Trachea: No tracheal deviation. Cardiovascular: Rate and Rhythm: Normal rate and regular rhythm. Pulses: Normal pulses. Pulmonary: Effort: Pulmonary effort is normal. No respiratory distress. Breath sounds: No wheezing, rhonchi or rales. Abdominal: General: There is no distension. Tenderness: There is no abdominal tenderness. There is no guarding. Musculoskeletal: Right lower leg: No edema. Left lower leg: No edema. Comments: Moves all 4 limbs volitionally Wounds wrapped, mild TTP Skin: Coloration: Skin is pale. Findings: Bruising present. No erythema. Neurological: Mental Status: She is alert. She is confused. Psychiatric: Speech: Speech is delayed. Behavior: Behavior normal. Behavior is cooperative. Cognition and Memory: Cognition is impaired. Comments: Alert and appropriate today Flat affect Scheduled Hospital Meds apixaban, 5 mg, oral, BID atorvastatin, 40 mg, oral, Nightly carvediloL, 6.25 mg, oral, BID with meals diltiazem CD, 240 mg, oral, Daily insulin glargine, 5 Units, subcutaneous, Nightly insulin lispro, 0-5 Units, subcutaneous, Nightly insulin lispro, 0-6 Units, subcutaneous, TID with meals magnesium chloride, 1 tablet, oral, Daily with breakfast miconazole, , Topical, BID pantoprazole, 40 mg, oral, q AM AC predniSONE, 5 mg, oral, Daily psyllium, 1 packet, oral, Daily LABS & DIAGNOSTICS Hematology Results from last 7 days Lab Units 05/04/21 0643 05/03/21 0711 05/02/21 0709 05/01/21 0921 05/01/21 0921 WBC AUTO x10e3/uL -- 7.4 6.9 -- 7.9 HEMOGLOBIN g/dL 8.2* 7.9* 8.2* < > 8.8* HEMATOCRIT % 28.1* 27.2* 27.7* < > 29.8* MCV fL -- 86 85 -- 84 PLATELETS AUTO x10e3/uL -- 308 309 -- 363 < > = values in this interval not displayed. Chemistries Results from last 7 days Lab Units 05/04/21 0643 05/03/21 0711 05/02/21 0709 05/01/21 0921 05/01/21 0921 04/30/21 0624 04/28/21 0735 SODIUM mmol/L 142 143 139 < > 143 < > 141 POTASSIUM mmol/L 3.2* 3.6 3.2* < > 3.4* < > 3.5 CHLORIDE mmol/L 106 107 102 < > 103 < > 104 CO2 mmol/L 29 29 27 < > 26 < > 29 BUN mg/dL 14.0 14.0 14.0 < > 14.0 < > 24.0 CREATININE mg/dL 1.40* 1.37* 1.28* < > 1.23* < > 1.36* GLUCOSE mg/dL 126* 102* 221* < > 194* < > 110* CALCIUM, SERUM mg/dL 8.2* 8.3* 8.2* < > 8.5 < > 8.4* MAGNESIUM mg/dL -- -- 1.6 -- 1.3* -- -- AST U/L -- -- -- -- -- -- 24 ALT U/L -- -- -- -- -- -- 13 BILIRUBIN TOTAL mg/dL -- -- -- -- -- -- 0.4 ALBUMIN g/dL -- -- -- -- -- -- 2.4* TOTAL PROTEIN g/dL -- -- -- -- -- -- 4.8* < > = values in this interval not displayed. Estimated Creatinine Clearance: 33.5 mL/min (A) (by C-G formula based on SCr of 1.4 mg/dL (H)). IMAGING Imaging results: XR CHEST [address] [place]. [address] PATIENT NAME: SHIRIN AGUILLON : 1945 GENDER: F EXAM DATE: 04/23/2021 16:33 ORDERED FROM: [facility] ORDERING PHYSICIAN: JORDAN RAMSEY CC: -- - - - CONTRAST: READING STATION ID: [id number] mGy: PROCEDURE: XR CHEST 1 VIEW INDICATIONS: Dobhoff placement - in place TECHNIQUE: One view of the chest was acquired. COMPARISON: [facility], , XR CHEST 1 VIEW, 04/22/2021, 15:54. FINDINGS: Surgical changes and devices: Dobbhoff tube tip is in distal stomach lumen below the right hemidiaphragm. Fusion hardware in lumbar spine is seen. Lungs and pleura: Pulmonary vascular congestion is seen. No significant pleural effusion or gross pneumothorax. Mild pulmonary edema is seen. Mediastinum: Mediastinal contours appear normal. Heart size is enlarged. Bones and chest wall: No suspicious bony lesions. Overlying soft tissues appear unremarkable. IMPRESSION: Dobbhoff tube tip is in the region of distal stomach lumen below the right hemidiaphragm. No free air under the diaphragm. Mild pulmonary vascular congestion. No gross pneumothorax. Reviewed by: Jacinto Rodriguez M.D. on 04/23/2021 at 16:54 Approved by: Jacinto Rodriguez M.D. on 04/23/2021 at 16:57 ECHOCARDIOGRAM COMPLETE Version: 1 Study ID: [id number] [address] [address] Phone: ADULT ECHOCARDIOGRAM Name: SHIRIN AGUILLON Study Date: 04/23/2021, 7: 55 AM : 1945 BP: 147 / 80 mmHg Gender: Female Height: 60 in Age: 75 Years Weight: 187.393 lb Pt. Location: [facility]^2008^2008-10 BSA: 1.82 m? Ordering: JORDAN RAMSEY Referring: Leon Hospitalist Clinician: Carli Vasquez Reason For Study: Dyspnea History: Summary Statements This is a technically difficult study characterized by limited endocardial visualization. Next time recommend Definity echocontrast if possible. Normal sinus rhythm with occasional PAC's. Normal LV size and wall thickness. There is subtle mid-anterior hypokinesis, but normal wall motion otherwise. EF is 50-55%. Stage II diastolic dysfunction. Normal chamber sizes. Aortic sclerosis without stenosis. Otherwise no valvular abnormalities. Compared to prior study 09/2019, focal wall motion abnormality involving mid-anterior segment is newly described Procedure: A two-dimensional transthoracic echocardiogram with color flow and Doppler was performed. The patient was supine and unable to follow breathing commands. Comparison is made with the echocardiogram of 10/21/2019. The patient was in normal sinus rhythm during the exam. Left Ventricle: The left ventricle is normal in size. Left ventricular wall thickness is at the upper limits of normal. There is no ventricular septal defect visualized. The ejection fraction is estimated to be 50-55%. There is subtle mid-anterior hypokinesis. Data is somewhat conflicting, in that patient has E/A reversal and PV systolic flow predominance. Yet e/e' ratio is >15. Right Ventricle: The right ventricle is normal in size and function. Atria: Both atria are normal in size. There is no Doppler evidence for an interatrial shunt. Mitral Valve: The mitral valve leaflets are slightly calcified. The mitral valve chordae are thickened and/or calcified. There is mild mitral regurgitation. Aortic Valve: The aortic valve is not well visualized. The aortic valve is slightly calcified. The aortic valve opens well. No aortic regurgitation is present. Tricuspid Valve: The tricuspid valve is not well visualized, but is grossly normal. There is a trace or physiologic amount of tricuspid regurgitation. The right ventricular systolic pressure is estimated to be at least 37 mmHg based on an estimated right atrial pressure of 8 mm Hg. Pulmonic Valve: The pulmonic valve is not well visualized. Great Vessels: The aortic root is normal size. The ascending aorta is normal in size. The IVC is of normal diameter and collapses less than 50% with a sniff. This suggests a right atrial pressure of 8 mm Hg. Pericardium/ Pleura: There is no pericardial effusion. There is an anterior echo-free space consistent with a fat pad. There is a small right-sided pleural effusion. 2D and M-Mode Measurements and Calculations LVIDd: 4.1 cm AoV Openin.78 cm LVIDs: 2.5 cm LVOT diam: 1.73 cm IVSd: 1.00 cm Ao root diam: 3.4 cm LVPWd: 1.03 cm asc Aorta Diam: 3.2 cm LV bai. diameter/BSA (cm/m^2): 2.27 LV sys. diameter/BSA (cm/m^2): 1.38 FS: 39.3 % EPSS: 0.92 cm RVD1 (basal): 2.9 cm IVC diam: 2.02 cm TAPSE: 2.21 cm LA A4 area: 18.1 cm? RA area: 12.3 cm? LA A2 area: 17.3 cm? RA long axis: 4.6 cm LA length (vol): 5.6 cm RA vol: 28.4 ml LA vol: 47.2 ml RA : 15.6 ml/m? LA vol index: 26.0 ml/m? Doppler Measurements and Calculations Ao V2 max: 142.6 cm/sec LVOT Max Ron: 93.9 cm/sec Ao V2 mean: 93.7 cm/sec LV V1 max P.5 mmHg Ao V2 VTI: 26.7 cm LV V1 VTI: 18.5 cm Ao max P.1 mmHg Ao mean P.9 mmHg DILAN(I,D): 1.64 cm? DILAN(V,D): 1.55 cm? DILAN indexed to BSA (cm^2/m^2): 0.90 sev ratio: 0.69 MV E max ron: 98.1 cm/sec MV dec time: 0.28 sec MV A max ron: 121.0 cm/sec MV E/A: 0.81 Med Peak E' Ron: 5.3 cm/sec E/E' med: 18.4 Lat Peak E' Ron: 7.2 cm/sec E/E' lat: 13.6 E/e' average: 16.0 TR max ron: 267.7 cm/sec PA V2 max: 81.1 cm/sec TR max P.7 mmHg PA mean P.59 mmHg MR PISA: 0.62 cm? Electronically signed by: Lucinda Bahena M.D. 04/23/2021, 3: 19 PM Electronically signed by: Ricardo Griffin DO 05/04/2021 8:16 AM Portions of today's documentation have been created with the assistance of voice recognition software. Therefore, it may contain anomalous punctuation, anomalous independent misrecognitions, word substitutions, insertions or omissions. Occasional wrong-word or phonetically similar substitutions may also occur, all due to the inherent limitations of voice recognition software. Attempts to correct the above have been made by Ricardo Griffin DO but it is recommended that the chart be read carefully to recognize, using context, where the substitutions may have occurred. Associated attestation - Chris Julio MD - 05/11/2021 7:34 AM PDT I saw and evaluated the patient, participating in the villarreal portions of the service. I reviewed the resident???s note. I agree with the resident???s findings and plan.Tal Henriquez, HEAD CHAR FILTER TANK TENDER - 05/03/2021 2:50 PM PDT Inpatient Physical Therapy Treatment Note Patient Name: Shirin Aguillon MR#: [id number] Today's Date: 05/03/2021 PT Last Visit PT Received On: 05/03/21 HEAD CHAR FILTER TANK TENDER Visit Count: 3 Precautions General Precautions: AMS, Falls Risk, BL posterior calf wounds Subjective: Cognition Overall Cognitive Status: Impaired Safety Judgment: Good awareness of safety precautions Cognition Comments: Inconsistent interactivity, withdrawn at times Objective/Interventions: Mobility Rolling: Stand by assistance Supine to Sit: Minimal assistance (OVER HAULER HELPER to upright trunk) Sit to Supine: (up to chair) Sit to Stand: Minimal assistance (x4) Sit-Stand Devices Used: Front wheeled walker Stand to Sit: Minimal assistance (To both bed and chair) Stand-Sit Devices Used: Front wheeled walker Ambulation: Contact guard assistance Ambulation: Devices Used: Front wheeled walker Ambulation Distance (Feet): 10 Feet Sitting Balance: Stand by assistance Standing Balance: Contact guard assistance (w/fww) Goals and Progress: Plan Assessment: Pt found resting in bed, a bit agitated and emotional but agreeable to skilled PT. Pt required light OVER HAULER HELPER to upright trunk. In seated pt became tearful requiring a break and expressed frustration at her ongoing health problems. Attempts at progressing ambulation distance were limited x2 by i ncontinent of stool which required cleanup both times. In standing she had no LOBs demonstrated steady gait within her limited range. Was left resting comfortably in bedside chair with heated blankets swathed and call light in reach. Recommending 24/7 assistance and daily PT at this time to safely progress functional nobility. Progress: Progressing toward goals Multidisciplinary Problems IP Therapy Problems (Active) Problem: Physical Therapy - Adult Goal Priority Disciplines By Discharge: Performs mobility at highest level of function for planned discharge setting. See evaluation for individualized goals. PT Description: 04/24/21 *pt to perform bed mobility with HOB flat, no rails and with stand-by assistance *pt to transfer with front wheeled walker with stand-by assistance *pt to ambulate 150 feet with front wheeled walker and with stand-by assistance *pt to ascend and descend 7 stairs with hand rail and with stand-by assistance in order to safely negotiate home environment Plan: Recommendation IP PT Status: (!) 1 PT Frequency (in-house): 5-7/wk Post-discharge recommendation: 24 hour supervision/assist Discharge Transportation: [facility] PT Frequency upon discharge: Daily Janeth Malone - 05/03/2021 9:53 AM PDT Social Work Discharge Planning Boat Wrapper faxed clinicals to [facility] P: [phone] F: [phone]). Sent H&P, last 3 days doc notes, therapy notes (PT/OT/AU PAIR, dietary), last few days of RN notes and med list. Updated PRECIPITATOR OPERATOR that this task was completed Krystal Noriega MSW - 05/03/2021 9:25 AM PDT SOCIAL WORK: PROGRESS NOTE Data: EMR reviewed. Pt is on day 17 for Problem List Items Addressed This Visit Musculoskeletal * (Principal) Pressure injury of skin of right calf Relevant Orders MISC. TEST - (Completed) Culture, Deep Abscess Aerobic&Anaerobic w/gram stain (Completed) Other Visit Diagnoses Acute renal failure, unspecified acute renal failure type (CMS/HCC) - Primary Hyperkalemia Sepsis due to skin infection (CMS/HCC) Acute anemia Occult blood in stools Acute cystitis without hematuria Patient is not medically stable for discharge at this time. Per discussion with provider, discharge needs include snf. Social Work consults to coordinate theseservices have been ordered by physician at this time. PRECIPITATOR OPERATOR faxed 5 days nursing notes to Razia at [facility] per request. They might have a bed available toward the end of the week. Barriers to Discharge Include: snf placement Assessment: alert and oriented x4 Per PRECIPITATOR OPERATOR interactions, Physician Documentation and Nursing Documentation, patient does not have capacity for self care and has decisional capacity at this time. Plan: Anticipate patient to discharge to snf for rehab . PRECIPITATOR OPERATOR will continue to follow pt's clinicalcourse. Krystal Cordoba MSW Ricardo Rosa DO - 05/03/2021 8:[address] [facility]: INPATIENT PROGRESS NOTE Patient Name: Shirin Aguillon Date of : 1945 Age: 75 y.o. Code Status: Full Code Primary Care Physician: Rogelio Braga MD Admitting Provider: Ana Maria Narvaez MD Attending Provider: Chris Julio MD Admit Date: 04/15/2021 Date of Service: 05/03/2021 Hospital Day: 17 ASSESSMENT & PLAN Shirin Aguillon is a 75 y.o. female anticoagulated with Eliquis??with a hx notable for type II diabetes mellitus, hypertension, hyperlipidemia, CKD, and rheumatoid arthritis??who presents to the ED??for evaluation of altered mental status and found to be in CAM[place] with hyperkalemia. TODAY'S PLAN: - Continue active PT, up in chair for meals - SNF referral, awaiting placement ACTIVELY MANAGED PROBLEMS (problems are generally active day to day and carried forward): Diabetic soft tissue infection, POA. Stable. Pseudomonas colonization. - S/p bilateral calf wound debridement - Micro positive for light growth pseudomonas and zenaida albicans - Continue wound care. Completed antibiotics Cardiac Focal wall motion abnormality, present on admission, active Echo 04/21 exhibited area of wall motion abnormality, EF 50% (WNL). Seen by cardiology, recommended optimal medical management with outpt f/u - Continue Betablocker, statin. Will hold off on EMILY for now due to recent renal failure, recommend consider EMILY as outpt. Blood pressures acceptable - Recommend F/u outpt with cardiology Deconditioning, not POA. - Functional status prior to admission: Ambulates with a walker, stair chair at home, few stairs on her own. - Continue Physical therapy; recommending rehabilitation - SNF planning - Previously at [facility] Type 2 diabetes mellitus uncontrolled, POA. Hemoglobin A1c of 9. Now developing hypoglycemia due topoor oral intake -Glargine reduced on 04/27, discontinued on 04/28 -Sliding scale as needed - Added low dose Lantus for better glycemic control -F/u outpt for monitoring and/or oral medicines with pcp Diarrhea, not present on admission, improved. Previously Bloody and gelatinous stool. C. Difficile toxin PCR negative 04/22. - Patient has received antibiotics since admission - Metamucil, Banana flakes if needed Decreased oral intake, not POA. -Encourage food and fluid -No advance feeding interventions ACTIVE STABLE or RESOLVING PROBLEMS Atrial fibrillation with rapid ventrilcular response , present on admission. Resolved. [id number] score of at least 4. No Afib notable on most recent Peggy patch outpatient -Continue her ambulatory diltiazem XR 240 mg, and Apixaban Chronic anemia, possible GI bleed,??present on admission, stable and improving. Iron profile is compatible with anemia of chronic disease. -Continue to monitor hemoglobin transfusion threshold of 7 -Outpatient colonoscopy recommended Hypokalemia, not present on admission. Resolved. - Replete as needed. Secondary to diarrheal losses Respiratory distress, present on admission. Resolved. -Underlying JACLYN, with metabolic stress from uremia, skin infection and diarrhea - Oxygen as needed Prednisone therapy for inflammatory bowel disease and rheumatoid arthritis, present on admission - Steroids oral Prednisone - Recommend F/u with outpt rheumatology outpt for mgmt UTI, acute, present on admission. Resolved. - Negative UC - Broad-spectrum coverage with IV cefepime complete Metabolic acidosis with respiratory partial compensation, not present on admission. Resolved. - ABG: pH 7.224, pCO2 19, HCO3 9 - Lactic acid normal - CT abdomen negative - Bicarb drip initially and then discontinued once bicarb stabilized CAMILLE, acute, present on admission. Resolved. - Nephrology consulted, appreciate their recommendations - Likely due to infection and a ATN on CKD Stage 3 - Completed temporary dialysis, removed dialysis catheter Sepsis, acute, present on admission. Resolved. Body jerking, present on admission. Resolved. VTE Prophylaxis: apixaban Code Status: Full code Disposition: Anticipate discharge to: SNF in 1-2 days. SUBJECTIVE Chief Complaint Patient presents with ??? Altered Mental Status ??? Shortness of Breath Patient's Update Pt states she feels ok, appetite is improving daily. Strength is coming back. No concerns Interval Update Vital signs remained stable. No new overnight events. OBJECTIVE First recorded vitals: Temp: 36.3 ??C (97.3 ??F) - BP: 90/49 - Heart Rate: (!) 106 - Resp: 20 - SpO2: 100 % O2 Flow Rate (L/min): 4 L/min Most recent vital signs: Most recent vitals: Temp: 36.6 ??C (97.9 ??F) - BP: 133/75 - Heart Rate: 63 - Resp: 20 - SpO2: 96 % O2 Flow Rate (L/min): 1 L/min Physical Exam Vitals reviewed. Constitutional: General: She is not in acute distress. Appearance: She is well-developed. She is obese. She is not ill-appearing. HENT: Head: Normocephalic. Eyes: General: No scleral icterus. Neck: Trachea: No tracheal deviation. Cardiovascular: Rate and Rhythm: Normal rate and regular rhythm. Pulses: Normal pulses. Pulmonary: Effort: Pulmonary effort is normal. No respiratory distress. Breath sounds: No wheezing, rhonchi or rales. Abdominal: General: There is no distension. Tenderness: There is no abdominal tenderness. There is no guarding. Musculoskeletal: Right lower leg: No edema. Left lower leg: No edema. Comments: Moves all 4 limbs volitionally Wounds wrapped, mild TTP Skin: Coloration: Skin is pale. Findings: Bruising present. No erythema. Neurological: Mental Status: She is alert. She is confused. Psychiatric: Speech: Speech is delayed. Behavior: Behavior normal. Behavior is cooperative. Cognition and Memory: Cognition is impaired. Comments: Alert and appropriate today Flat affect Scheduled Hospital Meds apixaban, 5 mg, oral, BID atorvastatin, 40 mg, oral, Nightly carvediloL, 6.25 mg, oral, BID with meals diltiazem CD, 240 mg, oral, Daily insulin glargine, 5 Units, subcutaneous, Nightly insulin lispro, 0-5 Units, subcutaneous, Nightly insulin lispro, 0-6 Units, subcutaneous, TID with meals magnesium chloride, 1 tablet, oral, Daily with breakfast miconazole, , Topical, BID pantoprazole, 40 mg, oral, q AM AC predniSONE, 5 mg, oral, Daily psyllium, 1 packet, oral, Daily LABS & DIAGNOSTICS Hematology Results from last 7 days Lab Units 05/03/21 0711 05/02/21 0709 05/01/21 0921 WBC AUTO x10e3/uL 7.4 6.9 7.9 HEMOGLOBIN g/dL 7.9* 8.2* 8.8* HEMATOCRIT % 27.2* 27.7* 29.8* MCV fL 86 85 84 PLATELETS AUTO x10e3/uL 308 309 363 Chemistries Results from last 7 days Lab Units 05/02/21 0709 05/01/21 0921 04/30/21 0624 04/28/21 0735 04/28/21 0735 04/27/21 0548 04/27/21 0548 SODIUM mmol/L 139 143 140 < > 141 < > 141 POTASSIUM mmol/L 3.2* 3.4* 3.4* < > 3.5 < > 4.1 CHLORIDE mmol/L 102 103 102 < > 104 < > 103 CO2 mmol/L 27 26 26 < > 29 < > 32* BUN mg/dL 14.0 14.0 18.0 < > 24.0 < > 28.0* CREATININE mg/dL 1.28* 1.23* 1.16* < > 1.36* < > 1.30* GLUCOSE mg/dL 221* 194* 222* < > 110* < > 113* CALCIUM, SERUM mg/dL 8.2* 8.5 8.5 < > 8.4* < > 8.4* MAGNESIUM mg/dL 1.6 1.3* -- -- -- -- -- AST U/L -- -- -- -- 24 -- 23 ALT U/L -- -- -- -- 13 -- 14 BILIRUBIN TOTAL mg/dL -- -- -- -- 0.4 -- 0.4 ALBUMIN g/dL -- -- -- -- 2.4* -- 2.5* TOTAL PROTEIN g/dL -- -- -- -- 4.8* -- 4.8* < > = values in this interval not displayed. Estimated Creatinine Clearance: 36.6 mL/min (A) (by C-G formula based on SCr of 1.28 mg/dL (H)). IMAGING Imaging results: XR CHEST [address] [place]. [address] PATIENT NAME: SHIRIN AGUILLON : 1945 GENDER: F EXAM DATE: 04/23/2021 16:33 ORDERED FROM: [facility] ORDERING PHYSICIAN: JORDAN RAMSEY CC: -- - - - CONTRAST: READING STATION ID: [id number] mGy: PROCEDURE: XR CHEST 1 VIEW INDICATIONS: Dobhoff placement - in place TECHNIQUE: One view of the chest was acquired. COMPARISON: [facility], , XR CHEST 1 VIEW, 04/22/2021, 15:54. FINDINGS: Surgical changes and devices: Dobbhoff tube tip is in distal stomach lumen below the right hemidiaphragm. Fusion hardware in lumbar spine is seen. Lungs and pleura: Pulmonary vascular congestion is seen. No significant pleural effusion or gross pneumothorax. Mild pulmonary edema is seen. Mediastinum: Mediastinal contours appear normal. Heart size is enlarged. Bones and chest wall: No suspicious bony lesions. Overlying soft tissues appear unremarkable. IMPRESSION: Dobbhoff tube tip is in the region of distal stomach lumen below the right hemidiaphragm. No free air under the diaphragm. Mild pulmonary vascular congestion. No gross pneumothorax. Reviewed by: Jacinto Rodriguez M.D. on 04/23/2021 at 16:54 Approved by: Jacinto Rodriguez M.D. on 04/23/2021 at 16:57 ECHOCARDIOGRAM COMPLETE Version: 1 Study ID: [id number] [address] [address] Phone: ADULT ECHOCARDIOGRAM Name: SHIRIN AGUILLON Study Date: 04/23/2021, 7: 55 AM : 1945 BP: 147 / 80 mmHg Gender: Female Height: 60 in Age: 75 Years Weight: 187.393 lb Pt. Location: [facility]^2008^2008-10 BSA: 1.82 m? Ordering: JORDAN RAMSEY [facility] Carli Vasquez Reason For Study: Dyspnea History: Summary Statements This is a technically difficult study characterized by limited endocardial visualization. Next time recommend Definity echocontrast if possible. Normal sinus rhythm with occasional PAC's. Normal LV size and wall thickness. There is subtle mid-anterior hypokinesis, but normal wall motion otherwise. EF is 50-55%. Stage II diastolic dysfunction. Normal chamber sizes. Aortic sclerosis without stenosis. Otherwise no valvular abnormalities. Compared to prior study 09/2019, focal wall motion abnormality involving mid-anterior segment is newly described Procedure: A two-dimensional transthoracic echocardiogram with color flow and Doppler was performed. The patient was supine and unable to follow breathing commands. Comparison is made with the echocardiogram of 10/21/2019. The patient was in normal sinus rhythm during the exam. Left Ventricle: The left ventricle is normal in size. Left ventricular wall thickness is at the upper limits of normal. There is no ventricular septal defect visualized. The ejection fraction is estimated to be 50-55%. There is subtle mid-anterior hypokinesis. Data is somewhat conflicting, in that patient has E/A reversal and PV systolic flow predominance. Yet e/e' ratio is >15. Right Ventricle: The right ventricle is normal in size and function. Atria: Both atria are normal in size. There is no Doppler evidence for an interatrial shunt. Mitral Valve: The mitral valve leaflets are slightly calcified. The mitral valve chordae are thickened and/or calcified. There is mild mitral regurgitation. Aortic Valve: The aortic valve is not well visualized. The aortic valve is slightly calcified. The aortic valve opens well. No aortic regurgitation is present. Tricuspid Valve: The tricuspid valve is not well visualized, but is grossly normal. There is a trace or physiologic amount of tricuspid regurgitation. The right ventricular systolic pressure is estimated to be at least 37 mmHg based on an estimated right atrial pressure of 8 mm Hg. Pulmonic Valve: The pulmonic valve is not well visualized. Great Vessels: The aortic root is normal size. The ascending aorta is normal in size. The IVC is of normal diameter and collapses less than 50% with a sniff. This suggests a right atrial pressure of 8 mm Hg. Pericardium/ Pleura: There is no pericardial effusion. There is an anterior echo-free space consistent with a fat pad. There is a small right-sided pleural effusion. 2D and M-Mode Measurements and Calculations LVIDd: 4.1 cm AoV Openin.78 cm LVIDs: 2.5 cm LVOT diam: 1.73 cm IVSd: 1.00 cm Ao root diam: 3.4 cm LVPWd: 1.03 cm asc Aorta Diam: 3.2 cm LV bai. diameter/BSA (cm/m^2): 2.27 LV sys. diameter/BSA (cm/m^2): 1.38 FS: 39.3 % EPSS: 0.92 cm RVD1 (basal): 2.9 cm IVC diam: 2.02 cm TAPSE: 2.21 cm LA A4 area: 18.1 cm? RA area: 12.3 cm? LA A2 area: 17.3 cm? RA long axis: 4.6 cm LA length (vol): 5.6 cm RA vol: 28.4 ml LA vol: 47.2 ml RA : 15.6 ml/m? LA vol index: 26.0 ml/m? Doppler Measurements and Calculations Ao V2 max: 142.6 cm/sec LVOT Max Ron: 93.9 cm/sec Ao V2 mean: 93.7 cm/sec LV V1 max P.5 mmHg Ao V2 VTI: 26.7 cm LV V1 VTI: 18.5 cm Ao max P.1 mmHg Ao mean P.9 mmHg DILAN(I,D): 1.64 cm? DILAN(V,D): 1.55 cm? DILAN indexed to BSA (cm^2/m^2): 0.90 sev ratio: 0.69 MV E max ron: 98.1 cm/sec MV dec time: 0.28 sec MV A max ron: 121.0 cm/sec MV E/A: 0.81 Med Peak E' Ron: 5.3 cm/sec E/E' med: 18.4 Lat Peak E' Ron: 7.2 cm/sec E/E' lat: 13.6 E/e' average: 16.0 TR max ron: 267.7 cm/sec PA V2 max: 81.1 cm/sec TR max P.7 mmHg PA mean P.59 mmHg MR PISA: 0.62 cm? Electronically signed by: Lucinda Bahena M.D. 04/23/2021, 3: 19 PM Electronically signed by: Ricardo Griffin DO 05/03/2021 8:24 AM Portions of today's documentation have been created with the assistance of voice recognition software. Therefore, it may contain anomalous punctuation, anomalous independent misrecognitions, word substitutions, insertions or omissions. Occasional wrong-word or phonetically similar substitutions may also occur, all due to the inherent limitations of voice recognition software. Attempts to correct the above have been made by Ricardo Griffin DO but it is recommended that the chart be read carefully to recognize, using context, where the substitutions may have occurred. Associated attestation - Chris Julio MD - 05/04/2021 7:33 AM PDT I saw and evaluated the patient, participating in the villarreal portions of the service. I reviewed the resident???s note. I agree with the resident???s findings and plan.Theresa Puga, CHIQUIS - 05/03/2021 7:06 AM PDT NUTRITION FOLLOW UP: ASSESS: 75 yo F admitted for sepsis and CAMILLE with hyperkalemia. Urine output improved, dialysis beingheld per notes. Pt s/p debridement of bilateral calf wound 04/18. Pt had a prolonged NPO status so Dobhoff was placed 04/22, TF was tolerated at goal. Pt pulled out NGT 04/25, tube feeds off. Diet advanced per ST 04/26. PO 0-100%. ST re-eval pt on 04/28, diet remains mechanical soft thin liquids. Per RN ptremains A&Ox1-2 with delayed responses, mild improvement in po intake. notes indicate no advance feeding interventions with decreased oral intake (04/30). PMHX: Arthritis, T2DM, PNA, HLD, HTN, kidney disease, UTI LABS: K+3.2, Bone Char Operator 1.28, Glu 221, Ca 8.2 MEDS: Reviewed. Insulin, prednisone GI: BM 05/02 SKIN: ulcer on R& L calf, stg 2 PI on coccyx CURRENT WT: 79.9 kg (bed scale), BMI 34.40 kg/m2, IBW: 45.5 kg, admit wt: 72.4kg DIET: Mech soft, thin liq. PO 0-100%; mild improvement NUTRITION SUPPORT: (OFF) Glucerna 1.5 @ goal 50 ml/hr, flush 135 ml q 2 hr. ESTIMATED NEEDS: CAMILLE, BMI, wounds Calories: 5568-6756 kcal/day (20-25 kcal/kg BW) Protein: 55-70 g/day (1.0-1.2 g/kg IBW) Fluids: 2125-2550ml/day (25-30 ml/kg) NUTRITION DIAGNOSIS: 1.) Inadequate oral intake related to decreased ability to consume sufficient energy as evidenced bycurrent NPO status.---IMPROVING 2.) Increased kcal/pro needs related to increased nutrient demand as evidence by pt with multiple pressure injuries. --PERSISTS 3.) Chew/swallow difficulty due to AMS as evidenced by modified diet texture per AU PAIR -- PERSISTS. NUTRITION INTERVENTION: 1.) Continue current diet per speech therapy. Consider tube feeding if inline with pt goals of care. MONITOR/EVALUATE: PO intake, diet tolerance vs TF? GI, wounds, labs, POC, nutrition status. Follow per high nutrition risk guidelines orp, Celestine Headley, HEAD CHAR FILTER TANK TENDER - 05/02/2021 2:57 PM PDT Inpatient Physical Therapy Treatment Note Patient Name: Shirin Aguillon MR#: [id number] Today's Date: 05/02/2021 PT Last Visit PT Received On: 05/02/21 HEAD [employer]TER TANK TENDER Visit Count: 2 Precautions General Precautions: AMS, falls risk, BL posterior calf wounds Subjective: Cognition Overall Cognitive Status: Impaired Orientation Level: Oriented X4 Cognition Comments: Not impulsive, but appears impaired with nonsense conversation and statements Pain Assessment Pain Assessment: 0-10 Pain Score: (unrated back pain) Objective/Interventions: Mobility Rolling: Minimal assistance Supine to Sit: Moderate assistance Sit to Supine: Moderate assistance (performed by son) Sit to Stand: Moderate assistance Sit-Stand Devices Used: Front wheeled walker Stand to Sit: Minimal assistance Stand-Sit Devices Used: Front wheeled walker Ambulation: Minimal assistance Ambulation: Devices Used: Front wheeled walker Ambulation Distance (Feet): 9 Feet (3x3 feet (side steps, x2 step pivot EOB<>chair)) Sitting Balance: Stand by assistance Standing Balance: Contact guard assistance (Requires FWW) Goals and Progress: Plan Assessment: Patient was asleep, but agreeable to mobilize. Hot pack K-pad was on thoracic spine. BUEto pull up to sitting EOB. Requires vc and increased assistance with STS w/ FWW as initial kyphotic with cues to stand upright. x4 STS w/ FWW throught mobility of side steps and FWD steps and pivot to chair. Unable to tolerate chair due to back. Once EOB son assisted supine BTB. K-pad donned on mid-upper spine. REC 24/ assist/sup and daily PT at this time. Treatment/Interventions: Functional transfer training, Bed mobility, Gait training Progress: Progressing toward goals Multidisciplinary Problems IP Therapy Problems (Active) Problem: Physical Therapy - Adult Goal Priority Disciplines By Discharge: Performs mobility at highest level of function for planned discharge setting. See evaluation for individualized goals. PT Description: 04/24/21 *pt to perform bed mobility with HOB flat, no rails and with stand-by assistance *pt to transfer with front wheeled walker with stand-by assistance *pt to ambulate 150 feet with front wheeled walker and with stand-by assistance *pt to ascend and descend 7 stairs with hand rail and with stand-by assistance in order to safely negotiate home environment Plan: Recommendation IP PT Status: (!) 1 PT Frequency (in-house): 5-7/wk Post-discharge recommendation: 24 hour supervision/assist Discharge Transportation: [facility] PT Frequency upon discharge: Daily Electronically signed by [employer] PTA Ricardo Rosa DO - 05/02/2021 7:[address] [facility]: INPATIENT PROGRESS NOTE Patient Name: Shirin Aguillon Date of : 1945 Age: 75 y.o. Code Status: Full Code Primary Care Physician: Rogelio Braga MD Admitting Provider: Ana Maria Narvaez MD Attending Provider: Chris Julio MD Admit Date: 04/15/2021 Date of Service: 05/02/2021 Hospital Day: 16 ASSESSMENT & PLAN Shirin Aguillon is a 75 y.o. female anticoagulated with Eliquis??with a hx notable for type II diabetes mellitus, hypertension, hyperlipidemia, CKD, and rheumatoid arthritis??who presents to the ED??for evaluation of altered mental status and found to be in CAMILLE with hyperkalemia. TODAY'S PLAN: - Continue active PT, up in chair for meals - SNF referral, awaiting placement - Supplement electrolytes - Low dose Lantus for glycemic control ACTIVELY MANAGED PROBLEMS (problems are generally active day to day and carried forward): Diabetic soft tissue infection, POA. Stable. Pseudomonas colonization. - S/p bilateral calf wound debridement - Micro positive for light growth pseudomonas and zenaida albicans - Continue wound care. Completed antibiotics Diarrhea, not present on admission, improving. Previously Bloody and gelatinous stool. C. Difficile toxin PCR negative 04/22. - Patient has received antibiotics since admission - Metamucil, Banana flakes if needed Focal wall motion abnormality, present on admission, active Echo 04/21 exhibited area of wall motion abnormality, EF 50% (WNL). Seen by cardiology, recommended optimal medical management with outpt f/u - Continue Betablocker, statin. Will hold off on EMILY for now due to recent renal failure, recommend consider EMILY as outpt. Blood pressures acceptable - Recommend F/u outpt with cardiology Deconditioning, not POA. - Functional status prior to admission: Ambulates with a walker, stair chair at home, few stairs on her own. - Continue Physical therapy; recommending rehabilitation - SNF planning - Previously at [facility] Type 2 diabetes mellitus uncontrolled, POA. Hemoglobin A1c of 9. Now developing hypoglycemia due topoor oral intake -Glargine reduced on 04/27, discontinued on 04/28 -Sliding scale as needed - Added low dose Lantus for better glycemic control -F/u outpt for monitoring and/or oral medicines with pcp Decreased oral intake, not POA. -Encourage food and fluid -No advance feeding interventions ACTIVE STABLE or RESOLVING PROBLEMS Atrial fibrillation with rapid ventrilcular response , present on admission. Resolved. [id number] score of at least 4. No Afib notable on most recent Peggy patch outpatient -Continue her ambulatory diltiazem XR 240 mg, and Apixaban Chronic anemia, possible GI bleed,??present on admission, stable and improving. Iron profile is compatible with anemia of chronic disease. -Continue to monitor hemoglobin transfusion threshold of 7 -Outpatient colonoscopy recommended Hypokalemia, not present on admission. Resolved. - Replete as needed. Secondary to diarrheal losses Respiratory distress, present on admission. Resolved. -Underlying JACLYN, with metabolic stress from uremia, skin infection and diarrhea - Oxygen as needed Prednisone therapy for inflammatory bowel disease and rheumatoid arthritis, present on admission - Steroids oral Prednisone - Recommend F/u with outpt rheumatology outpt for mgmt UTI, acute, present on admission. Resolved. - Negative UC - Broad-spectrum coverage with IV cefepime complete Metabolic acidosis with respiratory partial compensation, not present on admission. Resolved. - ABG: pH 7.224, pCO2 19, HCO3 9 - Lactic acid normal - CT abdomen negative - Bicarb drip initially and then discontinued once bicarb stabilized CAMILLE, acute, present on admission. Resolved. - Nephrology consulted, appreciate their recommendations - Likely due to infection and a ATN on CKD Stage 3 - Completed temporary dialysis, removed dialysis catheter Sepsis, acute, present on admission. Resolved. Body jerking, present on admission. Resolved. VTE Prophylaxis: apixaban Code Status: Full code Disposition: Anticipate discharge to: SNF in 1-2 days. SUBJECTIVE Chief Complaint Patient presents with ??? Altered Mental Status ??? Shortness of Breath Patient's Update Patient states she feels a little better, appetite improving. No concerns this morning Interval Update Vital signs remained stable. No new overnight events. OBJECTIVE First recorded vitals: Temp: 36.3 ??C (97.3 ??F) - BP: 90/49 - Heart Rate: (!) 106 - Resp: 20 - SpO2: 100 % O2 Flow Rate (L/min): 4 L/min Most recent vital signs: Most recent vitals: Temp: 36.8 ??C (98.2 ??F) - BP: (!) 152/88 - Heart Rate: 76 - Resp: 18 - SpO2: 93 % O2 Flow Rate (L/min): 1 L/min Physical Exam Vitals reviewed. Constitutional: General: She is not in acute distress. Appearance: She is well-developed. She is obese. She is not ill-appearing. HENT: Head: Normocephalic. Eyes: General: No scleral icterus. Neck: Trachea: No tracheal deviation. Cardiovascular: Rate and Rhythm: Normal rate and regular rhythm. Pulses: Normal pulses. Pulmonary: Effort: Pulmonary effort is normal. No respiratory distress. Breath sounds: No wheezing, rhonchi or rales. Abdominal: General: There is no distension. Tenderness: There is no abdominal tenderness. There is no guarding. Musculoskeletal: Right lower leg: No edema. Left lower leg: No edema. Comments: Moves all 4 limbs volitionally Wounds wrapped, mild TTP Skin: Coloration: Skin is pale. Findings: Bruising present. No erythema. Neurological: Mental Status: She is alert. She is confused. Psychiatric: Speech: Speech is delayed. Behavior: Behavior normal. Behavior is cooperative. Cognition and Memory: Cognition is impaired. Comments: Alert and appropriate today Flat affect Scheduled Hospital Meds apixaban, 5 mg, oral, BID atorvastatin, 40 mg, oral, Nightly carvediloL, 6.25 mg, oral, BID with meals diltiazem CD, 240 mg, oral, Daily insulin glargine, 5 Units, subcutaneous, Nightly insulin lispro, 0-5 Units, subcutaneous, Nightly insulin lispro, 0-6 Units, subcutaneous, TID with meals miconazole, , Topical, BID pantoprazole, 40 mg, oral, q AM AC potassium chloride, 20 mEq, oral, Once predniSONE, 5 mg, oral, Daily psyllium, 1 packet, oral, Daily LABS & DIAGNOSTICS Hematology Results from last 7 days Lab Units 05/01/21 0921 04/30/21 0624 04/29/21 0527 WBC AUTO x10e3/uL 7.9 9.7 13.6* HEMOGLOBIN g/dL 8.8* 8.2* 8.2* HEMATOCRIT % 29.8* 27.6* 28.0* MCV fL 84 85 86 PLATELETS AUTO x10e3/uL 363 298 255 Chemistries Results from last 7 days Lab Units 05/01/21 0921 04/30/21 0624 04/28/21 0735 04/27/21 0548 04/27/21 0548 04/26/21 0329 04/26/21 0329 SODIUM mmol/L 143 140 141 < > 141 < > 141 POTASSIUM mmol/L 3.4* 3.4* 3.5 < > 4.1 < > 3.8 CHLORIDE mmol/L 103 102 104 < > 103 < > 101 CO2 mmol/L 26 26 29 < > 32* < > 36* BUN mg/dL 14.0 18.0 24.0 < > 28.0* < > 37.0* CREATININE mg/dL 1.23* 1.16* 1.36* < > 1.30* < > 1.33* GLUCOSE mg/dL 194* 222* 110* < > 113* < > 184* CALCIUM, SERUM mg/dL 8.5 8.5 8.4* < > 8.4* < > 8.2* MAGNESIUM mg/dL 1.3* -- -- -- -- -- 1.9 AST U/L -- -- 24 -- 23 -- 20 ALT U/L -- -- 13 -- 14 -- 13 BILIRUBIN TOTAL mg/dL -- -- 0.4 -- 0.4 -- 0.4 ALBUMIN g/dL -- -- 2.4* -- 2.5* -- 2.4* TOTAL PROTEIN g/dL -- -- 4.8* -- 4.8* -- 4.7* < > = values in this interval not displayed. Estimated Creatinine Clearance: 38.1 mL/min (A) (by C-G formula based on SCr of 1.23 mg/dL (H)). IMAGING Imaging results: XR CHEST [address] [place]. [address] PATIENT NAME: SHIRIN AGUILLON : 1945 GENDER: F EXAM DATE: 04/23/2021 16:33 ORDERED FROM: [facility] ORDERING PHYSICIAN: JORDAN RAMSEY CC: -- - - - CONTRAST: READING STATION ID: [id number] mGy: PROCEDURE: XR CHEST 1 VIEW INDICATIONS: Dobhoff placement - in place TECHNIQUE: One view of the chest was acquired. [facility] [facility], , XR CHEST 1 VIEW, 04/22/2021, 15:54. FINDINGS: Surgical changes and devices: Dobbhoff tube tip is in distal stomach lumen below the right hemidiaphragm. Fusion hardware in lumbar spine is seen. Lungs and pleura: Pulmonary vascular congestion is seen. No significant pleural effusion or gross pneumothorax. Mild pulmonary edema is seen. Mediastinum: Mediastinal contours appear normal. Heart size is enlarged. Bones and chest wall: No suspicious bony lesions. Overlying soft tissues appear unremarkable. IMPRESSION: Dobbhoff tube tip is in the region of distal stomach lumen below the right hemidiaphragm. No free air under the diaphragm. Mild pulmonary vascular congestion. No gross pneumothorax. Reviewed by: Jacinto Rodriguez M.D. on 04/23/2021 at 16:54 Approved by: Jacinto Rodriguez M.D. on 04/23/2021 at 16:57 ECHOCARDIOGRAM COMPLETE Version: 1 Study ID: [id number] [address] [address] Phone: ADULT ECHOCARDIOGRAM Name: SHIRIN AGUILLON Study Date: 04/23/2021, 7: 55 AM : 1945 BP: 147 / 80 mmHg Gender: Female Height: 60 in Age: 75 Years Weight: 187.393 lb Pt. Location: [facility]^2008^2008-10 BSA: 1.82 m? Ordering: JORDAN RAMSEY Referring: [facility] Clinician: Carli Vasquez Reason For Study: Dyspnea History: Summary Statements This is a technically difficult study characterized by limited endocardial visualization. Next time recommend Definity echocontrast if possible. Normal sinus rhythm with occasional PAC's. Normal LV size and wall thickness. There is subtle mid-anterior hypokinesis, but normal wall motion otherwise. EF is 50-55%. Stage II diastolic dysfunction. Normal chamber sizes. Aortic sclerosis without stenosis. Otherwise no valvular abnormalities. Compared to prior study 09/2019, focal wall motion abnormality involving mid-anterior segment is newly described Procedure: A two-dimensional transthoracic echocardiogram with color flow and Doppler was performed. The patient was supine and unable to follow breathing commands. Comparison is made with the echocardiogram of 10/21/2019. The patient was in normal sinus rhythm during the exam. Left Ventricle: The left ventricle is normal in size. Left ventricular wall thickness is at the upper limits of normal. There is no ventricular septal defect visualized. The ejection fraction is estimated to be 50-55%. There is subtle mid-anterior hypokinesis. Data is somewhat conflicting, in that patient has E/A reversal and PV systolic flow predominance. Yet e/e' ratio is >15. Right Ventricle: The right ventricle is normal in size and function. Atria: Both atria are normal in size. There is no Doppler evidence for an interatrial shunt. Mitral Valve: The mitral valve leaflets are slightly calcified. The mitral valve chordae are thickened and/or calcified. There is mild mitral regurgitation. Aortic Valve: The aortic valve is not well visualized. The aortic valve is slightly calcified. The aortic valve opens well. No aortic regurgitation is present. Tricuspid Valve: The tricuspid valve is not well visualized, but is grossly normal. There is a trace or physiologic amount of tricuspid regurgitation. The right ventricular systolic pressure is estimated to be at least 37 mmHg based on an estimated right atrial pressure of 8 mm Hg. Pulmonic Valve: The pulmonic valve is not well visualized. Great Vessels: The aortic root is normal size. The ascending aorta is normal in size. The IVC is of normal diameter and collapses less than 50% with a sniff. This suggests a right atrial pressure of 8 mm Hg. Pericardium/ Pleura: There is no pericardial effusion. There is an anterior echo-free space consistent with a fat pad. There is a small right-sided pleural effusion. 2D and M-Mode Measurements and Calculations LVIDd: 4.1 cm AoV Openin.78 cm LVIDs: 2.5 cm LVOT diam: 1.73 cm IVSd: 1.00 cm Ao root diam: 3.4 cm LVPWd: 1.03 cm asc Aorta Diam: 3.2 cm LV bai. diameter/BSA (cm/m^2): 2.27 LV sys. diameter/BSA (cm/m^2): 1.38 FS: 39.3 % EPSS: 0.92 cm RVD1 (basal): 2.9 cm IVC diam: 2.02 cm TAPSE: 2.21 cm LA A4 area: 18.1 cm? RA area: 12.3 cm? LA A2 area: 17.3 cm? RA long axis: 4.6 cm LA length (vol): 5.6 cm RA vol: 28.4 ml LA vol: 47.2 ml RA : 15.6 ml/m? LA vol index: 26.0 ml/m? Doppler Measurements and Calculations Ao V2 max: 142.6 cm/sec LVOT Max Ron: 93.9 cm/sec Ao V2 mean: 93.7 cm/sec LV V1 max P.5 mmHg Ao V2 VTI: 26.7 cm LV V1 VTI: 18.5 cm Ao max P.1 mmHg Ao mean P.9 mmHg DILAN(I,D): 1.64 cm? DILAN(V,D): 1.55 cm? DILAN indexed to BSA (cm^2/m^2): 0.90 sev ratio: 0.69 MV E max ron: 98.1 cm/sec MV dec time: 0.28 sec MV A max ron: 121.0 cm/sec MV E/A: 0.81 Med Peak E' Ron: 5.3 cm/sec E/E' med: 18.4 Lat Peak E' Ron: 7.2 cm/sec E/E' lat: 13.6 E/e' average: 16.0 TR max ron: 267.7 cm/sec PA V2 max: 81.1 cm/sec TR max P.7 mmHg PA mean P.59 mmHg MR PISA: 0.62 cm? Electronically signed by: Lucinda Bahena M.D. 04/23/2021, 3: 19 PM Electronically signed by: Ricardo Griffin DO 05/02/2021 7:28 AM Portions of today's documentation have been created with the assistance of voice recognition software. Therefore, it may contain anomalous punctuation, anomalous independent misrecognitions, word substitutions, insertions or omissions. Occasional wrong-word or phonetically similar substitutions may also occur, all due to the inherent limitations of voice recognition software. Attempts to correct the above have been made by Ricardo Griffin DO but it is recommended that the chart be read carefully to recognize, using context, where the substitutions may have occurred. Associated attestation - Chris Julio MD - 05/02/2021 3:39 PM PDT I saw and evaluated the patient, participating in the villarreal portions of the service. I reviewed the resident???s note. I agree with the resident???s findings and plan.Chris Julio MD - 05/01/2021 4:[address] [facility]: INPATIENT PROGRESS NOTE Patient Name: Shirin Aguillon Date of : 1945 Age: 75 y.o. Code Status: Full Code Primary Care Physician: Rogelio Braga MD Admitting Provider: Ana Maria Narvaez MD Attending Provider: Chris Julio MD Admit Date: 04/15/2021 Date of Service: 05/01/2021 Hospital Day: 15 ASSESSMENT & PLAN Shirin Aguillon is a 75 y.o. female anticoagulated with Eliquis??with a hx notable for type II diabetes mellitus, hypertension, hyperlipidemia, CKD, and rheumatoid arthritis??who presents to the ED??for evaluation of altered mental status and found to be in CAMILLE with hyperkalemia. TODAY'S PLAN: -Continue active PT, up in chair for meals - SNF referral, awaiting placement - Continue to Optimize cardiac medicines - Supplement electrolytes ACTIVELY MANAGED PROBLEMS (problems are generally active day to day and carried forward): Diabetic soft tissue infection, POA. Stable. Pseudomonas colonization. - S/p bilateral calf wound debridement - Micro positive for light growth pseudomonas and zenaida albicans - Continue wound care. Completed antibiotics Hospital delirium, not present at admission. Improving. - Avoid any sedative medications - Ensure day/night cycle settings (blinds drawn during the day, lights off at night) - Avoid restraints Diarrhea, not present on admission, improving. Bloody and gelatinous stool. C. Difficile toxin PCR negative 04/22. - Patient has received antibiotics since admission -Metamucil, Banana flakes if needed Focal wall motion abnormality, present on admission, active Echo 04/21 exhibited area of wall motion abnormality, EF 50% (WNL). Seen by cardiology, recommended optimal medical management with outpt f/u - Betablocker, statin. Will hold off on EMILY for now due to recent renal failure - Recommend F/u outpt with cardiology Deconditioning, not POA. - Functional status prior to admission: Ambulates with a walker, stair chair at home, few stairs on her own. - Continue Physical therapy; recommending rehabilitation - SNF planning - Previously at [facility] Type 2 diabetes mellitus uncontrolled, POA. Hemoglobin A1c of 9. Now developing hypoglycemia due topoor oral intake -Glargine reduced on 04/27, discontinued on 04/28 -Sliding scale as needed -F/u outpt for monitoring and/or oral medicines with pcp Decreased oral intake, not POA. -Encourage food and fluid -No advance feeding interventions ACTIVE STABLE or RESOLVING PROBLEMS Atrial fibrillation with rapid ventrilcular response , present on admission. Resolved. [id number] score of at least 4. No Afib notable on most recent Peggy patch outpatient -Continue her ambulatory diltiazem XR 240 mg, and Apixaban Chronic anemia, possible GI bleed,??present on admission, stable and improving. Iron profile is compatible with anemia of chronic disease. -Continue to monitor hemoglobin transfusion threshold of 7 -Outpatient colonoscopy recommended Hypokalemia, not present on admission. Resolved. - Replete as needed. Secondary to diarrheal losses Respiratory distress, present on admission. Resolved. -Underlying JACLYN, with metabolic stress from uremia, skin infection and diarrhea - Oxygen as needed Prednisone therapy for inflammatory bowel disease and rheumatoid arthritis, present on admission - Steroids oral Prednisone - Recommend F/u with outpt rheumatology outpt for mgmt UTI, acute, present on admission. Resolved. - Negative UC - Broad-spectrum coverage with IV cefepime complete Metabolic acidosis with respiratory partial compensation, not present on admission. Resolved. - ABG: pH 7.224, pCO2 19, HCO3 9 - Lactic acid normal - CT abdomen negative - Bicarb drip initially and then discontinued once bicarb stabilized CAMILLE, acute, present on admission. Resolved. - Nephrology consulted, appreciate their recommendations - Likely due to infection and a ATN on CKD Stage 3 - Completed temporary dialysis, removed dialysis catheter Sepsis, acute, present on admission. Resolved. Body jerking, present on admission. Resolved. VTE Prophylaxis: apixaban Code Status: Full code Disposition: Anticipate discharge to: SNF in 1-2 days. SUBJECTIVE Chief Complaint Patient presents with ??? Altered Mental Status ??? Shortness of Breath Patient's Update Patient states she feels fine, no pain or sob. Interval Update Vital signs remained stable. No new overnight events. OBJECTIVE First recorded vitals: Temp: 36.3 ??C (97.3 ??F) - BP: 90/49 - Heart Rate: (!) 106 - Resp: 20 - SpO2: 100 % O2 Flow Rate (L/min): 4 L/min Most recent vital signs: Most recent vitals: Temp: 36.8 ??C (98.2 ??F) - BP: (!) 156/81 (Rn aware) - Heart Rate: 80 - Resp: 18 - SpO2: 93 % O2 Flow Rate (L/min): 1 L/min Physical Exam Vitals reviewed. Constitutional: General: She is not in acute distress. Appearance: She is well-developed. She is obese. She is not ill-appearing. HENT: Head: Normocephalic. Eyes: General: No scleral icterus. Neck: Trachea: No tracheal deviation. Cardiovascular: Rate and Rhythm: Normal rate and regular rhythm. Pulses: Normal pulses. Pulmonary: Effort: Pulmonary effort is normal. No respiratory distress. Breath sounds: No wheezing, rhonchi or rales. Abdominal: General: There is no distension. Tenderness: There is no abdominal tenderness. There is no guarding. Musculoskeletal: Right lower leg: No edema. Left lower leg: No edema. Comments: Moves all 4 limbs volitionally Wounds wrapped, mild TTP Skin: Coloration: Skin is pale. Findings: Bruising present. No erythema. Neurological: Mental Status: She is alert. She is confused. Comments: Moves 4 extremities. Facies symmetric. Psychiatric: Speech: Speech is delayed. Behavior: Behavior normal. Behavior is cooperative. Cognition and Memory: Cognition is impaired. Comments: Alert and appropriate today Flat affect Scheduled Hospital Meds apixaban, 5 mg, oral, BID atorvastatin, 40 mg, oral, Nightly carvediloL, 6.25 mg, oral, BID with meals diltiazem CD, 240 mg, oral, Daily insulin lispro, 0-5 Units, subcutaneous, Nightly insulin lispro, 0-6 Units, subcutaneous, TID with meals magnesium sulfate, 2 g, intravenous, Once miconazole, , Topical, BID pantoprazole, 40 mg, oral, q AM AC potassium chloride, 20 mEq, oral, Once predniSONE, 5 mg, oral, Daily psyllium, 1 packet, oral, Daily LABS & DIAGNOSTICS Hematology Results from last 7 days Lab Units 05/01/21 0904/30/21 0624 04/29/21 0527 WBC AUTO x10e3/uL 7.9 9.7 13.6* HEMOGLOBIN g/dL 8.8* 8.2* 8.2* HEMATOCRIT % 29.8* 27.6* 28.0* MCV fL 84 85 86 PLATELETS AUTO x10e3/uL 363 298 255 Chemistries Results from last 7 days Lab Units 05/01/21 0921 04/30/21 0624 04/28/21 0735 04/27/21 0548 04/27/21 0548 04/26/21 0329 04/26/21 0329 SODIUM mmol/L 143 140 141 < > 141 < > 141 POTASSIUM mmol/L 3.4* 3.4* 3.5 < > 4.1 < > 3.8 CHLORIDE mmol/L 103 102 104 < > 103 < > 101 CO2 mmol/L 26 26 29 < > 32* < > 36* BUN mg/dL 14.0 18.0 24.0 < > 28.0* < > 37.0* CREATININE mg/dL 1.23* 1.16* 1.36* < > 1.30* < > 1.33* GLUCOSE mg/dL 194* 222* 110* < > 113* < > 184* CALCIUM, SERUM mg/dL 8.5 8.5 8.4* < > 8.4* < > 8.2* MAGNESIUM mg/dL 1.3* -- -- -- -- -- 1.9 AST U/L -- -- 24 -- 23 -- 20 ALT U/L -- -- 13 -- 14 -- 13 BILIRUBIN TOTAL mg/dL -- -- 0.4 -- 0.4 -- 0.4 ALBUMIN g/dL -- -- 2.4* -- 2.5* -- 2.4* TOTAL PROTEIN g/dL -- -- 4.8* -- 4.8* -- 4.7* < > = values in this interval not displayed. Estimated Creatinine Clearance: 38.7 mL/min (A) (by C-G formula based on SCr of 1.23 mg/dL (H)). IMAGING Imaging results: XR [address] [place]. [address] PATIENT NAME: SHIRIN AGUILLON : 1945 GENDER: F EXAM DATE: 04/23/2021 16:33 ORDERED FROM: [facility] ORDERING PHYSICIAN: JORDAN RAMSEY CC: -- - - - CONTRAST: READING STATION ID: [id number] mGy: PROCEDURE: XR CHEST 1 VIEW INDICATIONS: Dobhoff placement - in place TECHNIQUE: One view of the chest was acquired. COMPARISON: [facility], , XR CHEST 1 VIEW, 04/22/2021, 15:54. FINDINGS: Surgical changes and devices: Dobbhoff tube tip is in distal stomach lumen below the right hemidiaphragm. Fusion hardware in lumbar spine is seen. Lungs and pleura: Pulmonary vascular congestion is seen. No significant pleural effusion or gross pneumothorax. Mild pulmonary edema is seen. Mediastinum: Mediastinal contours appear normal. Heart size is enlarged. Bones and chest wall: No suspicious bony lesions. Overlying soft tissues appear unremarkable. IMPRESSION: Dobbhoff tube tip is in the region of distal stomach lumen below the right hemidiaphragm. No free air under the diaphragm. Mild pulmonary vascular congestion. No gross pneumothorax. Reviewed by: Jacinto Rodriguez M.D. on 04/23/2021 at 16:54 Approved by: Jacinto Rodriguez M.D. on 04/23/2021 at 16:57 ECHOCARDIOGRAM COMPLETE Version: 1 Study ID: [id number] [address] [address] Phone: ADULT ECHOCARDIOGRAM Name: SHIRIN AGUILLON Study Date: 04/23/2021, 7: 55 AM : 1945 BP: 147 / 80 mmHg Gender: Female Height: 60 in Age: 75 Years Weight: 187.393 lb Pt. Location: [facility]^2008^2008-10 BSA: 1.82 m? Ordering: JORDAN RAMSEY Referring: [facility] Clinician: Carli Vasquez Reason For Study: Dyspnea History: Summary Statements This is a technically difficult study characterized by limited endocardial visualization. Next time recommend Definity echocontrast if possible. Normal sinus rhythm with occasional PAC's. Normal LV size and wall thickness. There is subtle mid-anterior hypokinesis, but normal wall motion otherwise. EF is 50-55%. Stage II diastolic dysfunction. Normal chamber sizes. Aortic sclerosis without stenosis. Otherwise no valvular abnormalities. Compared to prior study 09/2019, focal wall motion abnormality involving mid-anterior segment is newly described Procedure: A two-dimensional transthoracic echocardiogram with color flow and Doppler was performed. The patient was supine and unable to follow breathing commands. Comparison is made with the echocardiogram of 10/21/2019. The patient was in normal sinus rhythm during the exam. Left Ventricle: The left ventricle is normal in size. Left ventricular wall thickness is at the upper limits of normal. There is no ventricular septal defect visualized. The ejection fraction is estimated to be 50-55%. There is subtle mid-anterior hypokinesis. Data is somewhat conflicting, in that patient has E/A reversal and PV systolic flow predominance. Yet e/e' ratio is >15. Right Ventricle: The right ventricle is normal in size and function. Atria: Both atria are normal in size. There is no Doppler evidence for an interatrial shunt. Mitral Valve: The mitral valve leaflets are slightly calcified. The mitral valve chordae are thickened and/or calcified. There is mild mitral regurgitation. Aortic Valve: The aortic valve is not well visualized. The aortic valve is slightly calcified. The aortic valve opens well. No aortic regurgitation is present. Tricuspid Valve: The tricuspid valve is not well visualized, but is grossly normal. There is a trace or physiologic amount of tricuspid regurgitation. The right ventricular systolic pressure is estimated to be at least 37 mmHg based on an estimated right atrial pressure of 8 mm Hg. Pulmonic Valve: The pulmonic valve is not well visualized. Great Vessels: The aortic root is normal size. The ascending aorta is normal in size. The IVC is of normal diameter and collapses less than 50% with a sniff. This suggests a right atrial pressure of 8 mm Hg. Pericardium/ Pleura: There is no pericardial effusion. There is an anterior echo-free space consistent with a fat pad. There is a small right-sided pleural effusion. 2D and M-Mode Measurements and Calculations LVIDd: 4.1 cm AoV Openin.78 cm LVIDs: 2.5 cm LVOT diam: 1.73 cm IVSd: 1.00 cm Ao root diam: 3.4 cm LVPWd: 1.03 cm asc Aorta Diam: 3.2 cm LV bai. diameter/BSA (cm/m^2): 2.27 LV sys. diameter/BSA (cm/m^2): 1.38 FS: 39.3 % EPSS: 0.92 cm RVD1 (basal): 2.9 cm IVC diam: 2.02 cm TAPSE: 2.21 cm LA A4 area: 18.1 cm? RA area: 12.3 cm? LA A2 area: 17.3 cm? RA long axis: 4.6 cm LA length (vol): 5.6 cm RA vol: 28.4 ml LA vol: 47.2 ml RA : 15.6 ml/m? LA vol index: 26.0 ml/m? Doppler Measurements and Calculations Ao V2 max: 142.6 cm/sec LVOT Max Ron: 93.9 cm/sec Ao V2 mean: 93.7 cm/sec LV V1 max P.5 mmHg Ao V2 VTI: 26.7 cm LV V1 VTI: 18.5 cm Ao max P.1 mmHg Ao mean P.9 mmHg DILAN(I,D): 1.64 cm? DILAN(V,D): 1.55 cm? DILAN indexed to BSA (cm^2/m^2): 0.90 sev ratio: 0.69 MV E max ron: 98.1 cm/sec MV dec time: 0.28 sec MV A max ron: 121.0 cm/sec MV E/A: 0.81 Med Peak E' Ron: 5.3 cm/sec E/E' med: 18.4 Lat Peak E' Ron: 7.2 cm/sec E/E' lat: 13.6 E/e' average: 16.0 TR max ron: 267.7 cm/sec PA V2 max: 81.1 cm/sec TR max P.7 mmHg PA mean P.59 mmHg MR NAVARRO: 0.62 cm? Electronically signed by: Lucinda Bahena M.D. 04/23/2021, 3: 19 PM Electronically signed by: Chris Julio MD 05/01/2021 4:20 PM Portions of today's documentation have been created with the assistance of voice recognition software. Therefore, it may contain anomalous punctuation, anomalous independent misrecognitions, word substitutions, insertions or omissions. Occasional wrong-word or phonetically similar substitutions may also occur, all due to the inherent limitations of voice recognition software. Attempts to correct the above have been made by Crhis Julio MD but it is recommended that the chart be read carefully to recognize, using context, where the substitutions may have occurred. Sim Caicedo, HEAD [employer]TER T[employer] TENDER - 05/01/2021 9:15 AM PDT Inpatient Physical Therapy Treatment Note Patient Name: Shirin Aguillon MR#: [id number] Today's Date: 05/01/2021 PT Last Visit PT Received On: 05/01/21 [employer] Visit Count: 1 Precautions General Precautions: AMS, falls risk, BL posterior calf wounds Subjective: Cognition Overall Cognitive Status: Impaired Cognition Comments: no impulsivity or unsafe behaviour Vital Signs Heart Rate: 80 Heart Rate Source: Monitor Pain Assessment Pain Assessment: 0-10 Pain Score: (Unrated) Pain Location: Leg Pain Orientation: Right, Left, Posterior Pain Descriptors: Aching Objective/Interventions: Mobility Supine to Sit: Stand by assistance (HOB 35d, rail, slightly labored) Sit to Supine: Minimal assistance (HOB flat, Jorge LEs) Sit to Stand: Minimal assistance (2x; very light Jorge) Sit-Stand Devices Used: Front wheeled walker (BUEs FWW vs BUEs EOB) Stand to Sit: Contact guard assistance Stand-Sit Devices Used: Front wheeled walker Ambulation: Contact guard assistance Ambulation: Devices Used: Front wheeled walker Ambulation Distance (Feet): 3 Feet Sitting Balance: Supports self independently Standing Balance: Contact guard assistance (w/FWW) Goals and Progress: Plan Assessment: Lou was agreeable to participate in skilled PT. She reports being very cold, hungry, and tired of all this. She required encouragement to avoid returning to supine almost immediately after reaching sitting. 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 She reported feeling dizzy with positional changes and SOB with exertion (Spo2 95% on RA). She required instruction for proper hand placement during sit to stands and stood with very light Jorge, unsteady transition of UEs from EOB to FWW handles, stood >1 min while linens were changed. She requireddecreased assist for all mobility compared to previous PT sessions but her activity tolerance is limited and she was unable to ambulate around the bed sec to fatigue. She declined to sit up in a chair after PT session and returned to bed, bed alarm on, nsg notified. Recommend 24/7 assist and daily PT to progress functional mobility back to PLOF. Progress: Progressing toward goals Multidisciplinary Problems IP Therapy Problems (Active) Problem: Physical Therapy - Adult Goal Priority Disciplines By Discharge: Performs mobility at highest level of function for planned discharge setting. See evaluation for individualized goals. PT Description: 04/24/21 *pt to perform bed mobility with HOB flat, no rails and with stand-by assistance *pt to transfer with front wheeled walker with stand-by assistance *pt to ambulate 150 feet with front wheeled walker and with stand-by assistance *pt to ascend and descend 7 stairs with hand rail and with stand-by assistance in order to safely negotiate home environment Plan: Recommendation IP PT Status: (!) 1 PT Frequency (in-house): 5-7/wk Post-discharge recommendation: 24 hour supervision/assist Discharge Transportation: [place] PT Frequency upon discharge: Daily Zakia Byrnes CCC-SLP - 04/30/2021 2:46 PM PDT Inpatient Speech Language Pathology Note Patient Name: Shirin Aguillon : 1945 MR#: [id number] Today's Date: 04/30/2021 AU PAIR spoke with both RN and DIRECTOR REGULATORY AFFAIRS in regards to this patient's swallowing and diet toleration. DIRECTOR REGULATORY AFFAIRS reported that patient continues to require verbal encouragement and 1:1 feeding during meal times to promote adequate oral intake. DIRECTOR REGULATORY AFFAIRS reported that if not given 1:1 feeding, patient does not seek out eating / drinking independently. DIRECTOR REGULATORY AFFAIRS reported no overt s/sx of aspiration / penetration with meals. DIRECTOR REGULATORY AFFAIRS reported occasional facial grimacing with PO which may be due to taste aversions / disliking of foods, and difficulty self-feeding / tolerating sandwiches. AU PAIR to update diet to exclude breads per DIRECTOR REGULATORY AFFAIRS report. Continue to recommend mechanical soft solids, thin liquids, and medications as tolerated with 1:1 feeding and oral care after meals. Speech therapy plans to sign off at this time. Please re-refer to speech language pathologist with any new or worsening condition(s). Nishi Santos RD - 04/30/2021 2:25 PM PDT NUTRITION FOLLOW UP: ASSESS: 75 yo F admitted for sepsis and CAMILLE with hyperkalemia. Urine output improved, dialysis beingheld per notes. Pt s/p debridement of bilateral calf wound 04/18. Pt had a prolonged NPO status so Dobhoff was placed 04/22, TF was tolerated at goal. Pt pulled out NGT 04/25, tube feeds off. Diet advanced per ST 04/26. No PO intake recorded since diet advanced. ST re-eval pt on 04/28, diet remains mechanical soft thin liquids. Per RN pt remains A&Ox1-2 with delayed responses, mild improvement in po intake. MD notes indicate no advance feeding interventions with decreased oral intake (04/30). PMHX: Arthritis, T2DM, PNA, HLD, HTN, kidney disease, UTI LABS: K+3.4, Glu 222, Cr 1.16 MEDS: Reviewed. Insulin, prednisone, D5NS @ 100ml/hr GI: BM 04/30 SKIN: ulcer on R& L calf, stg 2 PI on coccyx CURRENT WT: 84.9 kg, BMI 36.55 kg/m2, IBW: 45.5 kg, admit wt: 72.4kg DIET: Mech soft, thin liq. PO 0-100%; mild improvement x 24 hrs NUTRITION SUPPORT: (OFF) Glucerna 1.5 @ goal 50 ml/hr, flush 135 ml q 2 hr. ESTIMATED NEEDS: CAMILLE, BMI, wounds Calories: 9312-3127 kcal/day (20-25 kcal/kg BW) Protein: 55-70 g/day (1.0-1.2 g/kg IBW) Fluids: 2125-2550ml/day (25-30 ml/kg) NUTRITION DIAGNOSIS: 1.) Inadequate oral intake related to decreased ability to consume sufficient energy as evidenced bycurrent NPO status.---IMPROVING 2.) Increased kcal/pro needs related to increased nutrient demand as evidence by pt with multiple pressure injuries. --PERSISTS 3.) Chew/swallow difficulty due to AMS as evidenced by modified diet texture per AU PAIR -- PERSISTS. NUTRITION INTERVENTION: 1.) Continue current diet per speech therapy. Consider tube feeding if inline with pt goals of care. MONITOR/EVALUATE: PO intake, diet tolerance vs TF? GI, wounds, labs, POC, nutrition status. Follow per high nutrition risk guidelines Ricardo Rosa DO - 04/30/2021 8:[address] [facility]: INPATIENT PROGRESS NOTE Patient Name: Shirin Aguillon Date of : 1945 Age: 75 y.o. Code Status: Full Code Primary Care Physician: Rogelio Braga MD Admitting Provider: Ana Maria Narvaez MD Attending Provider: Chris Julio MD Admit Date: 04/15/2021 Date of Service: 04/30/2021 Hospital Day: 14 ASSESSMENT & PLAN Shiirn Aguillon is a 75 y.o. female anticoagulated with Eliquis??with a hx notable for type II diabetes mellitus, hypertension, hyperlipidemia, CKD, and rheumatoid arthritis??who presents to the ED??for evaluation of altered mental status and found to be in CAMILLE with hyperkalemia. TODAY'S PLAN: -Continue active PT, up in chair for meals - SNF referral, awaiting placement - Optimize cardiac medicines, begin statin & bb today ACTIVELY MANAGED PROBLEMS (problems are generally active day to day and carried forward): Diabetic soft tissue infection, POA. Stable. Pseudomonas colonization. - S/p bilateral calf wound debridement - Micro positive for light growth pseudomonas and zenaida albicans - Continue wound care. Completed antibiotics Hospital delirium, not present at admission. Improving. - Avoid any sedative medications - Ensure day/night cycle settings (blinds drawn during the day, lights off at night) - Avoid restraints Diarrhea, not present on admission, improving. Bloody and gelatinous stool. C. Difficile toxin PCR negative 04/22. - Patient has received antibiotics since admission -Metamucil, Banana flakes if needed Focal wall motion abnormality, present on admission, active Echo 04/21 exhibited area of wall motion abnormality, EF 50% (WNL). Seen by cardiology, recommended optimal medical management with outpt f/u - Betablocker, statin. Will hold off on EMILY for now due to recent renal failure - Recommend F/u outpt with cardiology Deconditioning, not POA. - Functional status prior to admission: Ambulates with a walker, stair chair at home, few stairs on her own. - Continue Physical therapy; recommending rehabilitation - SNF planning - Previously at [facility] Type 2 diabetes mellitus uncontrolled, POA. Hemoglobin A1c of 9. Now developing hypoglycemia due topoor oral intake -Glargine reduced on 04/27, discontinued on 04/28 -Sliding scale as needed -F/u outpt for monitoring and/or oral medicines with pcp Decreased oral intake, not POA. -Encourage food and fluid -No advance feeding interventions ACTIVE STABLE or RESOLVING PROBLEMS Atrial fibrillation with rapid ventrilcular response , present on admission. Resolved. [id number] score of at least 4. No Afib notable on most recent Peggy patch outpatient -Continue her ambulatory diltiazem XR 240 mg, and Apixaban Chronic anemia, possible GI bleed,??present on admission, stable and improving. Iron profile is compatible with anemia of chronic disease. -Continue to monitor hemoglobin transfusion threshold of 7 -Outpatient colonoscopy recommended Hypokalemia, not present on admission. Resolved. - Replete as needed. Secondary to diarrheal losses Respiratory distress, present on admission. Resolved. -Underlying JACLYN, with metabolic stress from uremia, skin infection and diarrhea - Oxygen as needed Prednisone therapy for inflammatory bowel disease and rheumatoid arthritis, present on admission - Steroids oral Prednisone - Recommend F/u with outpt rheumatology outpt for mgmt UTI, acute, present on admission. Resolved. - Negative UC - Broad-spectrum coverage with IV cefepime complete Metabolic acidosis with respiratory partial compensation, not present on admission. Resolved. - ABG: pH 7.224, pCO2 19, HCO3 9 - Lactic acid normal - CT abdomen negative - Bicarb drip initially and then discontinued once bicarb stabilized CAMILLE, acute, present on admission. Resolved. - Nephrology consulted, appreciate their recommendations - Likely due to infection and a ATN on CKD Stage 3 - Completed temporary dialysis, removed dialysis catheter Sepsis, acute, present on admission. Resolved. Body jerking, present on admission. Resolved. VTE Prophylaxis: apixaban Code Status: Full code Disposition: Anticipate discharge to: SNF in 1-2 days. SUBJECTIVE Chief Complaint Patient presents with ??? Altered Mental Status ??? Shortness of Breath Patient's Update Pt awake, states she feels like she is progressing. Low appetite, did not touch breakfast. Denies chest pain, sob, legs feel ok. Interval Update Vital signs remained stable. Persistent abnormal stool. OBJECTIVE First recorded vitals: Temp: 36.3 ??C (97.3 ??F) - BP: 90/49 - Heart Rate: (!) 106 - Resp: 20 - SpO2: 100 % O2 Flow Rate (L/min): 4 L/min Most recent vital signs: Most recent vitals: Temp: 36.4 ??C (97.5 ??F) - BP: (!) 158/81 - Heart Rate: 90 - Resp: 20 - SpO2: 98 % O2 Flow Rate (L/min): 1 L/min Physical Exam Vitals reviewed. Constitutional: General: She is not in acute distress. Appearance: She is well-developed. She is obese. She is not ill-appearing. HENT: Head: Normocephalic. Eyes: General: No scleral icterus. Neck: Trachea: No tracheal deviation. Cardiovascular: Rate and Rhythm: Normal rate and regular rhythm. Pulses: Normal pulses. Pulmonary: Effort: Pulmonary effort is normal. No respiratory distress. Breath sounds: No wheezing, rhonchi or rales. Abdominal: General: There is no distension. Tenderness: There is no abdominal tenderness. There is no guarding. Musculoskeletal: Right lower leg: No edema. Left lower leg: No edema. Comments: Moves all 4 limbs volitionally Wounds wrapped, mild TTP Skin: Coloration: Skin is pale. Findings: Bruising present. No erythema. Neurological: Mental Status: She is alert. She is confused. Comments: Moves 4 extremities. Facies symmetric. Psychiatric: Speech: Speech is delayed. Behavior: Behavior normal. Behavior is cooperative. Cognition and Memory: Cognition is impaired. Comments: Alert and appropriate today Flat affect Scheduled Hospital Meds apixaban, 5 mg, oral, BID diltiazem CD, 240 mg, oral, Daily insulin lispro, 0-5 Units, subcutaneous, Nightly insulin lispro, 0-6 Units, subcutaneous, TID with meals miconazole, , Topical, BID pantoprazole, 40 mg, oral, q AM AC predniSONE, 5 mg, oral, Daily psyllium, 1 packet, oral, Daily LABS & DIAGNOSTICS Hematology Results from last 7 days Lab Units 04/30/21 0624 04/29/21 0527 04/28/21 0736 WBC AUTO x10e3/uL 9.7 13.6* 15.6* HEMOGLOBIN g/dL 8.2* 8.2* 8.4* HEMATOCRIT % 27.6* 28.0* 28.7* MCV fL 85 86 84 PLATELETS AUTO x10e3/uL 298 255 234 Chemistries Results from last 7 days Lab Units 04/30/21 0624 04/28/21 0735 04/27/21 0548 04/26/21 0329 04/26/21 0329 04/25/21 0508 04/24/21 1157 SODIUM mmol/L 140 141 141 < > 141 < > 143 POTASSIUM mmol/L 3.4* 3.5 4.1 < > 3.8 < > 3.3* CHLORIDE mmol/L 102 104 103 < > 101 < > 100 CO2 mmol/L 26 29 32* < > 36* < > 32* BUN mg/dL 18.0 24.0 28.0* < > 37.0* < > 42.0* CREATININE mg/dL 1.16* 1.36* 1.30* < > 1.33* < > 1.58* GLUCOSE mg/dL 222* 110* 113* < > 184* < > 353* CALCIUM, SERUM mg/dL 8.5 8.4* 8.4* < > 8.2* < > 8.1* MAGNESIUM mg/dL -- -- -- -- 1.9 -- 1.4* AST U/L -- 24 23 -- 20 < > -- ALT U/L -- 13 14 -- 13 < > -- BILIRUBIN TOTAL mg/dL -- 0.4 0.4 -- 0.4 < > -- ALBUMIN g/dL -- 2.4* 2.5* -- 2.4* < > -- TOTAL PROTEIN g/dL -- 4.8* 4.8* -- 4.7* < > -- < > = values in this interval not displayed. Estimated Creatinine Clearance: 41 mL/min (A) (by C-G formula based on SCr of 1.16 mg/dL (H)). IMAGING Imaging results: XR CHEST [address] [place]. [address] PATIENT NAME: SHIRIN AGUILLON : 1945 GENDER: F EXAM DATE: 04/23/2021 16:33 ORDERED FROM: [facility] ORDERING PHYSICIAN: JORDAN RAMSEY CC: -- - - - CONTRAST: READING STATION ID: [id number] mGy: PROCEDURE: XR CHEST 1 VIEW INDICATIONS: Dobhoff placement - in place TECHNIQUE: One view of the chest was acquired. COMPARISON: [facility], CR, XR CHEST 1 VIEW, 04/22/2021, 15:54. FINDINGS: Surgical changes and devices: Dobbhoff tube tip is in distal stomach lumen below the right hemidiaphragm. Fusion hardware in lumbar spine is seen. Lungs and pleura: Pulmonary vascular congestion is seen. No significant pleural effusion or gross pneumothorax. Mild pulmonary edema is seen. Mediastinum: Mediastinal contours appear normal. Heart size is enlarged. Bones and chest wall: No suspicious bony lesions. Overlying soft tissues appear unremarkable. IMPRESSION: Dobbhoff tube tip is in the region of distal stomach lumen below the right hemidiaphragm. No free air under the diaphragm. Mild pulmonary vascular congestion. No gross pneumothorax. Reviewed by: Jacinto Rodriguez M.D. on 04/23/2021 at 16:54 Approved by: Jacinto Rodriguez M.D. on 04/23/2021 at 16:57 ECHOCARDIOGRAM COMPLETE Version: 1 Study ID: [id number] [address] [address] Phone: ADULT ECHOCARDIOGRAM Name: SHIRIN AGUILLON Study Date: 04/23/2021, 7: 55 AM : 1945 BP: 147 / 80 mmHg Gender: Female Height: 60 in Age: 75 Years Weight: 187.393 lb Pt. Location: [facility]^2008^2008-10 BSA: 1.82 m? Ordering: JORDAN RAMSEY Referring: Leon Anderson Clinician: Carli Vasquez Reason For Study: Dyspnea History: Summary Statements This is a technically difficult study characterized by limited endocardial visualization. Next time recommend Definity echocontrast if possible. Normal sinus rhythm with occasional PAC's. Normal LV size and wall thickness. There is subtle mid-anterior hypokinesis, but normal wall motion otherwise. EF is 50-55%. Stage II diastolic dysfunction. Normal chamber sizes. Aortic sclerosis without stenosis. Otherwise no valvular abnormalities. Compared to prior study 09/2019, focal wall motion abnormality involving mid-anterior segment is newly described Procedure: A two-dimensional transthoracic echocardiogram with color flow and Doppler was performed. The patient was supine and unable to follow breathing commands. Comparison is made with the echocardiogram of 10/21/2019. The patient was in normal sinus rhythm during the exam. Left Ventricle: The left ventricle is normal in size. Left ventricular wall thickness is at the upper limits of normal. There is no ventricular septal defect visualized. The ejection fraction is estimated to be 50-55%. There is subtle mid-anterior hypokinesis. Data is somewhat conflicting, in that patient has E/A reversal and PV systolic flow predominance. Yet e/e' ratio is >15. Right Ventricle: The right ventricle is normal in size and function. Atria: Both atria are normal in size. There is no Doppler evidence for an interatrial shunt. Mitral Valve: The mitral valve leaflets are slightly calcified. The mitral valve chordae are thickened and/or calcified. There is mild mitral regurgitation. Aortic Valve: The aortic valve is not well visualized. The aortic valve is slightly calcified. The aortic valve opens well. No aortic regurgitation is present. Tricuspid Valve: The tricuspid valve is not well visualized, but is grossly normal. There is a trace or physiologic amount of tricuspid regurgitation. The right ventricular systolic pressure is estimated to be at least 37 mmHg based on an estimated right atrial pressure of 8 mm Hg. Pulmonic Valve: The pulmonic valve is not well visualized. Great Vessels: The aortic root is normal size. The ascending aorta is normal in size. The IVC is of normal diameter and collapses less than 50% with a sniff. This suggests a right atrial pressure of 8 mm Hg. Pericardium/ Pleura: There is no pericardial effusion. There is an anterior echo-free space consistent with a fat pad. There is a small right-sided pleural effusion. 2D and M-Mode Measurements and Calculations LVIDd: 4.1 cm AoV Openin.78 cm LVIDs: 2.5 cm LVOT diam: 1.73 cm IVSd: 1.00 cm Ao root diam: 3.4 cm LVPWd: 1.03 cm asc Aorta Diam: 3.2 cm LV bai. diameter/BSA (cm/m^2): 2.27 LV sys. diameter/BSA (cm/m^2): 1.38 FS: 39.3 % EPSS: 0.92 cm RVD1 (basal): 2.9 cm IVC diam: 2.02 cm TAPSE: 2.21 cm LA A4 area: 18.1 cm? RA area: 12.3 cm? LA A2 area: 17.3 cm? RA long axis: 4.6 cm LA length (vol): 5.6 cm RA vol: 28.4 ml LA vol: 47.2 ml RA : 15.6 ml/m? LA vol index: 26.0 ml/m? Doppler Measurements and Calculations Ao V2 max: 142.6 cm/sec LVOT Max Ron: 93.9 cm/sec Ao V2 mean: 93.7 cm/sec LV V1 max P.5 mmHg Ao V2 VTI: 26.7 cm LV V1 VTI: 18.5 cm Ao max P.1 mmHg Ao mean P.9 mmHg DILAN(I,D): 1.64 cm? DILAN(V,D): 1.55 cm? DILAN indexed to BSA (cm^2/m^2): 0.90 sev ratio: 0.69 MV E max ron: 98.1 cm/sec MV dec time: 0.28 sec MV A max ron: 121.0 cm/sec MV E/A: 0.81 Med Peak E' Ron: 5.3 cm/sec E/E' med: 18.4 Lat Peak E' Ron: 7.2 cm/sec E/E' lat: 13.6 E/e' average: 16.0 TR max ron: 267.7 cm/sec PA V2 max: 81.1 cm/sec TR max P.7 mmHg PA mean P.59 mmHg MR PISA: 0.62 cm? Electronically signed by: Lucinda Bahena M.D. 04/23/2021, 3: 19 PM Electronically signed by: Ricardo Griffin DO 04/30/2021 8:10 AM Portions of today's documentation have been created with the assistance of voice recognition software. Therefore, it may contain anomalous punctuation, anomalous independent misrecognitions, word substitutions, insertions or omissions. Occasional wrong-word or phonetically similar substitutions may also occur, all due to the inherent limitations of voice recognition software. Attempts to correct the above have been made by Ricardo Griffin DO but it is recommended that the chart be read carefully to recognize, using context, where the substitutions may have occurred. Associated attestation - Chris Julio MD - 04/30/2021 1:45 PM PDT I saw and evaluated the patient, participating in the villarreal portions of the service. I reviewed the resident???s note. I agree with the resident???s findings and plan.Xavier Johnson MD - 04/29/2021 3:[address] [facility]: INPATIENT PROGRESS NOTE Patient Name: Shirin Aguillon Date of : 1945 Age: 75 y.o. Code Status: Full Code Primary Care Physician: Rogelio Braga MD Admitting Provider: Ana Maria Narvaez MD Attending Provider: Xavier Johnson MD Admit Date: 04/15/2021 Date of Service: 04/29/2021 Hospital Day: 13 ASSESSMENT & PLAN Shirin Aguillon is a 75 y.o. female anticoagulated with Eliquis??with a hx notable for type II diabetes mellitus, hypertension, hyperlipidemia, kidney dysfunction, and rheumatoid arthritis??who presents to the ED??for evaluation of altered mental status and found to be in CAMILLE with hyperkalemia. TODAY'S PLAN: -Advance diet as per speech and swallow -Continue active PT -discontinue restraints; we will not replace Dobbhoff tube and restrain her for this purpose - mobilize patient to the extent possible - SNF referral, medically ready in 1 day, discussed with director social 04/29 ACTIVELY MANAGED PROBLEMS (problems are generally active day to day and carried forward): Hospital delirium, not present at admission. Improving. - Avoid any sedative medications - Ensure day/night cycle settings (blinds drawn during the day, lights off at night) - Avoid restraints - Discontinue Howard catheter. External catheter versus diaper pads as needed. Diabetic soft tissue infection, POA. Stable. Pseudomonas colonization. - S/p bilateral calf wound debridement - Micro positive for light growth pseudomonas and zenaida albicans -Continue wound care Diarrhea, not present on admission, improving. Bloody and gelatinous stool. C. Difficile toxin PCR negative 04/22. - Patient has received antibiotics since admission -Metamucil -Banana flakes if needed Deconditioning, not POA. - Functional status prior to admission: Ambulates with a walker, stair chair at home, few stairs on her own. -Physical therapy - SNF planning - Previously at [facility] Type 2 diabetes mellitus uncontrolled, POA. Hemoglobin A1c of 9. Now developing hypoglycemia due topoor oral intake -Glargine reduced on 04/27, discontinued on 04/28 -Sliding scale Decreased oral intake, not POA. -Encourage food and fluid -No advance feeding interventions ACTIVE STABLE or RESOLVING PROBLEMS Atrial fibrillation with rapid ventrilcular response , present on admission. Resolved. -Continue her ambulatory diltiazem XR 240 mg Hypokalemia, not present on admission. Resolved. - Replete as needed Respiratory distress, present on admission. Resolved. -Underlying JALCYN, with metabolic stress from uremia, skin infection and diarrhea - Oxygen as needed Prednisone therapy for inflammatory bowel disease and rheumatoid arthritis, present on admission - Steroids oral Prednisone ?? Chronic anemia, possible GI bleed,??present on admission and improving. Iron profile is compatiblewith anemia of chronic disease. -Continue to monitor hemoglobin transfusion threshold of 7 -Outpatient colonoscopy recommended UTI, acute, present on admission. Resolved. - Negative UC - Broad-spectrum coverage with IV cefepime complete Metabolic acidosis with respiratory partial compensation, not present on admission. Resolved. - ABG: pH 7.224, pCO2 19, HCO3 9 - Lactic acid normal - CT abdomen negative - Bicarb drip initially and then discontinued once bicarb stabilized CAMILLE, acute, present on admission. Resolved. - Nephrology consulted, appreciate their recommendations - Likely due to infection and a ATN on CKD Stage 3 - Completed temporary dialysis, removed dialysis catheter Sepsis, acute, present on admission. Resolved. Body jerking, present on admission. Resolved. VTE Prophylaxis: apixaban Code Status: Full code Disposition: Anticipate discharge to: SNF by 04/30-. I spoke with her on 04/29 SUBJECTIVE Chief Complaint Patient presents with ??? Altered Mental Status ??? Shortness of Breath Patient's Update She is awake and much more alert today engaged in conversation. Interval Update Vital signs remained stable. Persistent abnormal stool. OBJECTIVE First recorded vitals: Temp: 36.3 ??C (97.3 ??F) - BP: 90/49 - Heart Rate: (!) 106 - Resp: 20 - SpO2: 100 % O2 Flow Rate (L/min): 4 L/min Most recent vital signs: Most recent vitals: Temp: 36.7 ??C (98.1 ??F) - BP: (!) 143/65 - Heart Rate: 76 - Resp: 18 - SpO2: 96 % O2 Flow Rate (L/min): 1 L/min Physical Exam Constitutional: Appearance: She is well-developed. HENT: Head: Normocephalic. Eyes: General: No scleral icterus. Neck: Trachea: No tracheal deviation. Pulmonary: Effort: No respiratory distress. Abdominal: Tenderness: There is no guarding. Musculoskeletal: Comments: Moves all 4 limbs volitionally Skin: Findings: Bruising present. No erythema. Neurological: Mental Status: She is lethargic and confused. Comments: Moves 4 extremities. Facies symmetric. Psychiatric: Speech: Speech is delayed. Behavior: Behavior is cooperative. Cognition and Memory: Cognition is impaired. Comments: Alert and appropriate today Scheduled Hospital Meds apixaban, 5 mg, oral, BID diltiazem, 60 mg, oral, q6h [facility] [START ON 04/30/2021] diltiazem CD, 240 mg, oral, Daily insulin lispro, 0-5 Units, subcutaneous, Nightly insulin lispro, 0-6 Units, subcutaneous, TID with meals miconazole, , Topical, BID pantoprazole, 40 mg, oral, q AM AC predniSONE, 5 mg, oral, Daily LABS & DIAGNOSTICS Hematology Results from last 7 days Lab Units 04/29/21 0527 04/28/21 0736 04/27/21 0548 WBC AUTO x10e3/uL 13.6* 15.6* 17.2* HEMOGLOBIN g/dL 8.2* 8.4* 8.8* HEMATOCRIT % 28.0* 28.7* 30.0* MCV fL 86 84 85 PLATELETS AUTO x10e3/uL 255 234 227 Chemistries Results from last 7 days Lab Units 04/28/21 0735 04/27/21 0548 04/26/21 0329 04/25/21 0508 04/24/21 1157 SODIUM mmol/L 141 141 141 < > 143 POTASSIUM mmol/L 3.5 4.1 3.8 < > 3.3* CHLORIDE mmol/L 104 103 101 < > 100 CO2 mmol/L 29 32* 36* < > 32* BUN mg/dL 24.0 28.0* 37.0* < > 42.0* CREATININE mg/dL 1.36* 1.30* 1.33* < > 1.58* GLUCOSE mg/dL 110* 113* 184* < > 353* CALCIUM, SERUM mg/dL 8.4* 8.4* 8.2* < > 8.1* MAGNESIUM mg/dL -- -- 1.9 -- 1.4* AST U/L 24 23 20 < > -- ALT U/L 13 14 13 < > -- BILIRUBIN TOTAL mg/dL 0.4 0.4 0.4 < > -- ALBUMIN g/dL 2.4* 2.5* 2.4* < > -- TOTAL PROTEIN g/dL 4.8* 4.8* 4.7* < > -- < > = values in this interval not displayed. Estimated Creatinine Clearance: 35 mL/min (A) (by C-G formula based on SCr of 1.36 mg/dL (H)). IMAGING Imaging results: XR CHEST [address] [place]. [address] PATIENT NAME: SHIRIN AGUILLON : 1945 GENDER: F EXAM DATE: 04/23/2021 16:33 ORDERED FROM: [facility] ORDERING PHYSICIAN: JORDAN RAMSEY CC: -- - - - CONTRAST: READING STATION ID: [id number] mGy: PROCEDURE: XR CHEST 1 VIEW INDICATIONS: Dobhoff placement - in place TECHNIQUE: One view of the chest was acquired. COMPARISON: [facility], CR, XR CHEST 1 VIEW, 04/22/2021, 15:54. FINDINGS: Surgical changes and devices: Dobbhoff tube tip is in distal stomach lumen below the right hemidiaphragm. Fusion hardware in lumbar spine is seen. Lungs and pleura: Pulmonary vascular congestion is seen. No significant pleural effusion or gross pneumothorax. Mild pulmonary edema is seen. Mediastinum: Mediastinal contours appear normal. Heart size is enlarged. Bones and chest wall: No suspicious bony lesions. Overlying soft tissues appear unremarkable. IMPRESSION: Dobbhoff tube tip is in the region of distal stomach lumen below the right hemidiaphragm. No free air under the diaphragm. Mild pulmonary vascular congestion. No gross pneumothorax. Reviewed by: Jacinto Rodriguez M.D. on 04/23/2021 at 16:54 Approved by: Jacinto Rodriguez M.D. on 04/23/2021 at 16:57 ECHOCARDIOGRAM COMPLETE Version: 1 Study ID: [id number] [address] [address] Phone: ADULT ECHOCARDIOGRAM Name: SHIRIN AGUILLON Study Date: 04/23/2021, 7: 55 AM : 1945 BP: 147 / 80 mmHg Gender: Female Height: 60 in Age: 75 Years Weight: 187.393 lb Pt. Location: [facility]^2008^2008-10 BSA: 1.82 m? Ordering: JORDAN RAMSEY Referring: Leon Hospitalist Clinician: Carli Vasquez Reason For Study: Dyspnea History: Summary Statements This is a technically difficult study characterized by limited endocardial visualization. Next time recommend Definity echocontrast if possible. Normal sinus rhythm with occasional PAC's. Normal LV size and wall thickness. There is subtle mid-anterior hypokinesis, but normal wall motion otherwise. EF is 50-55%. Stage II diastolic dysfunction. Normal chamber sizes. Aortic sclerosis without stenosis. Otherwise no valvular abnormalities. Compared to prior study 09/2019, focal wall motion abnormality involving mid-anterior segment is newly described Procedure: A two-dimensional transthoracic echocardiogram with color flow and Doppler was performed. The patient was supine and unable to follow breathing commands. Comparison is made with the echocardiogram of 10/21/2019. The patient was in normal sinus rhythm during the exam. Left Ventricle: The left ventricle is normal in size. Left ventricular wall thickness is at the upper limits of normal. There is no ventricular septal defect visualized. The ejection fraction is estimated to be 50-55%. There is subtle mid-anterior hypokinesis. Data is somewhat conflicting, in that patient has E/A reversal and PV systolic flow predominance. Yet e/e' ratio is >15. Right Ventricle: The right ventricle is normal in size and function. Atria: Both atria are normal in size. There is no Doppler evidence for an interatrial shunt. Mitral Valve: The mitral valve leaflets are slightly calcified. The mitral valve chordae are thickened and/or calcified. There is mild mitral regurgitation. Aortic Valve: The aortic valve is not well visualized. The aortic valve is slightly calcified. The aortic valve opens well. No aortic regurgitation is present. Tricuspid Valve: The tricuspid valve is not well visualized, but is grossly normal. There is a trace or physiologic amount of tricuspid regurgitation. The right ventricular systolic pressure is estimated to be at least 37 mmHg based on an estimated right atrial pressure of 8 mm Hg. Pulmonic Valve: The pulmonic valve is not well visualized. Great Vessels: The aortic root is normal size. The ascending aorta is normal in size. The IVC is of normal diameter and collapses less than 50% with a sniff. This suggests a right atrial pressure of 8 mm Hg. Pericardium/ Pleura: There is no pericardial effusion. There is an anterior echo-free space consistent with a fat pad. There is a small right-sided pleural effusion. 2D and M-Mode Measurements and Calculations LVIDd: 4.1 cm AoV Openin.78 cm LVIDs: 2.5 cm LVOT diam: 1.73 cm IVSd: 1.00 cm Ao root diam: 3.4 cm LVPWd: 1.03 cm asc Aorta Diam: 3.2 cm LV bai. diameter/BSA (cm/m^2): 2.27 LV sys. diameter/BSA (cm/m^2): 1.38 FS: 39.3 % EPSS: 0.92 cm RVD1 (basal): 2.9 cm IVC diam: 2.02 cm TAPSE: 2.21 cm LA A4 area: 18.1 cm? RA area: 12.3 cm? LA A2 area: 17.3 cm? RA long axis: 4.6 cm LA length (vol): 5.6 cm RA vol: 28.4 ml LA vol: 47.2 ml RA : 15.6 ml/m? LA vol index: 26.0 ml/m? Doppler Measurements and Calculations Ao V2 max: 142.6 cm/sec LVOT Max Ron: 93.9 cm/sec Ao V2 mean: 93.7 cm/sec LV V1 max P.5 mmHg Ao V2 VTI: 26.7 cm LV V1 VTI: 18.5 cm Ao max P.1 mmHg Ao mean P.9 mmHg DILAN(I,D): 1.64 cm? DILAN(V,D): 1.55 cm? DILAN indexed to BSA (cm^2/m^2): 0.90 sev ratio: 0.69 MV E max ron: 98.1 cm/sec MV dec time: 0.28 sec MV A max ron: 121.0 cm/sec MV E/A: 0.81 Med Peak E' Ron: 5.3 cm/sec E/E' med: 18.4 Lat Peak E' Ron: 7.2 cm/sec E/E' lat: 13.6 E/e' average: 16.0 TR max ron: 267.7 cm/sec PA V2 max: 81.1 cm/sec TR max P.7 mmHg PA mean P.59 mmHg MR PISA: 0.62 cm? Electronically signed by: Lucinda Bahena M.D. 04/23/2021, 3: 19 PM Electronically signed by: Xavier Johnson MD 04/29/2021 3:40 PM Portions of today's documentation have been created with the assistance of voice recognition software. Therefore, it may contain anomalous punctuation, anomalous independent misrecognitions, word substitutions, insertions or omissions. Occasional wrong-word or phonetically similar substitutions may also occur, all due to the inherent limitations of voice recognition software. Attempts to correct the above have been made by Xavier Johnson MD but it is recommended that the chart be read carefully to recognize, using context, where the substitutions may have occurred. 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 However, she was easily re-directed and calmed quickly. Sit to Supine: Maximum assistance Sit to Stand: Unable at this time Ambulation: Unable at this time Sitting Balance: Minimal assistance Standing Balance: Unable at this time Exercises Other Exercise: Attempted sitting ther ex, pt was unable to actively complete there ex with manual assistance and max verbal cues Goals and Progress: Plan Assessment: Pt was alert and able to follow 30% of 1 step simple commands. During supine>sit patient called out, but was easily calmed down and able to complete movement pattern. Patient requires min to max A for all mobility with majority of assistance for trunk and B LE's. During sitting patient demonstrated impulsive behavior throwing her trunk side to side and demonstrating significant risk for falls. She was able to tolerate 5-6 min of sitting while attempting to perform there ex. Again, she was redirectable but required both tactile and verbal cues. Pt was not appropriate to attempt sit<>stand due to inability to coordinate extremities for task. Will continue to assess. In addition, pt had bout of bowel incontinence and [facility]. Treatment/Interventions: Functional transfer training, LE strengthening/ROM, Patient/family training, Bed mobility Progress: Slow progress, cognitive deficits Multidisciplinary Problems IP Therapy Problems (Active) Problem: Physical Therapy - Adult Goal Priority Disciplines By Discharge: Performs mobility at highest level of function for planned discharge setting. See evaluation for individualized goals. PT Description: 04/24/21 *pt to perform bed mobility with HOB flat, no rails and with stand-by assistance *pt to transfer with front wheeled walker with stand-by assistance *pt to ambulate 150 feet with front wheeled walker and with stand-by assistance *pt to ascend and descend 7 stairs with hand rail and with stand-by assistance in order to safely negotiate home environment Plan: Recommendation IP PT Status: 2 PT Frequency (in-house): 3-5/wk Post-discharge recommendation: 24 hour supervision/assist Discharge Transportation: S PT Frequency upon discharge: Daily na Maria Luz RD - 04/28/2021 10:10 AM PDT NUTRITION FOLLOW UP: ASSESS: 75 yo F admitted for sepsis and CAMILLE with hyperkalemia. Urine output improved, dialysis beingheld per notes. Pt s/p debridement of bilateral calf wound 04/18. Pt had a prolonged NPO status so Dobhoff was placed 04/22, TF was tolerated at goal. Pt pulled out NGT 04/25, tube feeds off. Diet advanced per ST 04/26. No PO intake recorded since diet advanced. ST to re-evaluate pt today as RN noted pt to be pocketing food and coughing. PMHX: Arthritis, T2DM, PNA, HLD, HTN, kidney disease, UTI LABS: car cleaner 1.36, glu 110, Ca 8.4, alb 2.4 MEDS: Reviewed. Insulin, prednisone, D5NS @ 100ml/hr GI: BM 04/26, diarrhea. SKIN: ulcer on R& L calf, stg 2 PI on coccyx CURRENT WT: 84.9 kg, BMI 36.55 kg/m2, IBW: 45.5 kg, admit wt: 72.4kg DIET: Mech soft, thing liq. Poor PO x 2 days. NUTRITION SUPPORT: (OFF) Glucerna 1.5 @ goal 50 ml/hr, flush 135 ml q 2 hr. ESTIMATED NEEDS: CAMILLE, BMI, wounds Calories: 3139-6589 kcal/day (20-25 kcal/kg BW) Protein: 55-70 g/day (1.0-1.2 g/kg IBW) Fluids: 2125-2550ml/day (25-30 ml/kg) NUTRITION DIAGNOSIS: 1.) Inadequate oral intake related to decreased ability to consume sufficient energy as evidenced bycurrent NPO status.---PERSISTS. 2.) Increased kcal/pro needs related to increased nutrient demand as evidence by pt with multiple pressure injuries. --PERSISTS 3.) Chew/swallow difficulty due to AMS as evidence by minimal PO intake during hospital stay/ need for TF. NUTRITION INTERVENTION: 1.) Continue current diet per speech therapy. If pt continues to not tolerate oral intake, strongly recommend replacing dobhoff and re-starting TF. MONITOR/EVALUATE: PO intake, diet tolerance vs TF? GI, wounds, labs, POC, nutrition status. Follow per high nutrition risk guidelines Xavier Shelley MD - 04/28/2021 6:[address] [facility]: INPATIENT PROGRESS NOTE Patient Name: Shirin Aguillon Date of : 1945 Age: 75 y.o. Code Status: Full Code Primary Care Physician: Rogelio Braga MD Admitting Provider: Ana Maria Narvaez MD Attending Provider: Xavier Johnson MD Admit Date: 04/15/2021 Date of Service: 04/28/2021 Hospital Day: 12 ASSESSMENT & PLAN Shirin Aguillon is a 75 y.o. female anticoagulated with Eliquis??with a hx notable for type II diabetes mellitus, hypertension, hyperlipidemia, kidney dysfunction, and rheumatoid arthritis??who presents to the ED??for evaluation of altered mental status and found to be in CAMILLE with hyperkalemia. TODAY'S PLAN: - DC glargine - Continue nonpharmacologic measures for encephalopathy -Advance diet as per speech and swallow -PT -discontinue restraints - mobilize patient to the extent possible - SNF referral ACTIVELY MANAGED PROBLEMS (problems are generally active day to day and carried forward): Hospital delirium, not present at admission. Improving. - Avoid any sedative medications - Ensure day/night cycle settings (blinds drawn during the day, lights off at night) - Avoid restraints Diarrhea, not present on admission, improving. Bloody and gelatinous stool. - Patient has received antibiotics since admission - C. Difficile toxin PCR negative 04/22 Deconditioning, not POA. -Physical therapy Diabetic soft tissue infection, POA. Stable. Pseudomonas colonization. - S/p bilateral calf wound debridement - Micro positive for light growth pseudomonas and zenaida albicans Type 2 diabetes mellitus uncontrolled, POA. Hemoglobin A1c of 9. Now developing hypoglycemia due topoor oral intake -Glargine reduced on 04/27, discontinued on 04/28 -Sliding scale STABLE or RESOLVING PROBLEMS Hypokalemia, not present on admission. Resolved. - Replete as needed Respiratory distress, present on admission. Resolved. -Underlying JACLYN, with metabolic stress from uremia, skin infection and diarrhea - Oxygen as needed Prednisone therapy for inflammatory bowel disease and rheumatoid arthritis, present on admission - Steroids oral Prednisone ?? Chronic anemia, possible GI bleed,??present on admission and improving. Iron profile is compatiblewith anemia of chronic disease. -Continue to monitor hemoglobin transfusion threshold of 7 -Outpatient colonoscopy recommended UTI, acute, present on admission. Resolved. - Negative UC - Broad-spectrum coverage with IV cefepime complete Metabolic acidosis with respiratory partial compensation, not present on admission. Resolved. - ABG: pH 7.224, pCO2 19, HCO3 9 - Lactic acid normal - CT abdomen negative - Bicarb drip initially and then discontinued once bicarb stabilized CAMILLE, acute, present on admission. Resolved. - Nephrology consulted, appreciate their recommendations - Likely due to infection and a ATN on CKD Stage 3 - Completed temporary dialysis, removed dialysis catheter Sepsis, acute, present on admission. Resolved. Atrial fibrillation with rapid ventrilcular response , present on admission. Resolved. Body jerking, present on admission. Resolved. VTE Prophylaxis: apixaban Code Status: Full code Disposition: Anticipate discharge to: SNF by 04/29 SUBJECTIVE Chief Complaint Patient presents with ??? Altered Mental Status ??? Shortness of Breath Patient's Update She is awake but minimally verbal this morning. Interval Update Vital signs remained stable. Persistent abnormal stool. OBJECTIVE First recorded vitals: Temp: 36.3 ??C (97.3 ??F) - BP: 90/49 - Heart Rate: (!) 106 - Resp: 20 - SpO2: 100 % O2 Flow Rate (L/min): 4 L/min Most recent vital signs: Most recent vitals: Temp: 36.6 ??C (97.9 ??F) - BP: (!) 155/72 - Heart Rate: 90 - Resp: 18 - SpO2: 93 % O2 Flow Rate (L/min): 1 L/min Physical Exam Constitutional: Appearance: She is well-developed. HENT: Head: Normocephalic. Eyes: General: No scleral icterus. Neck: Trachea: No tracheal deviation. Pulmonary: Effort: No respiratory distress. Abdominal: Tenderness: There is no guarding. Musculoskeletal: Comments: Moves all 4 limbs volitionally Skin: Findings: Bruising present. No erythema. Neurological: Mental Status: She is lethargic and confused. Comments: Moves 4 extremities. Facies symmetric. Psychiatric: Speech: Speech is delayed. Behavior: Behavior is cooperative. Cognition and Memory: Cognition is impaired. Comments: Minimal verbal responses. Seems calm. Scheduled Hospital Meds apixaban, 5 mg, oral, BID diltiazem, 60 mg, oral, q6h SUELLEN miconazole, , Topical, BID pantoprazole, 40 mg, oral, q AM AC predniSONE, 5 mg, oral, Daily REGULAR INSULIN, 0-6 Units, subcutaneous, q6h LABS & DIAGNOSTICS Hematology Results from last 7 days Lab Units 04/27/21 0548 04/26/21 0329 04/25/21 0508 04/23/21 0527 04/22/21 0850 WBC AUTO x10e3/uL 17.2* 12.9* 13.6* < > 25.7* BANDS %, BLOOD MANUAL % -- -- -- -- 2 HEMOGLOBIN g/dL 8.8* 7.9* 7.6* < > 9.1* HEMATOCRIT % 30.0* 26.7* 24.8* < > 31.0* MCV fL 85 83 82 < > 85 PLATELETS AUTO x10e3/uL 227 180 198 < > 311 < > = values in this interval not displayed. Chemistries Results from last 7 days Lab Units 04/27/21 0548 04/26/21 0329 04/25/21 0508 04/24/21 1157 04/24/21 0717 SODIUM mmol/L 141 141 138 143 < > POTASSIUM mmol/L 4.1 3.8 3.4* 3.3* < > CHLORIDE mmol/L 103 101 97 100 < > CO2 mmol/L 32* 36* 33* 32* < > BUN mg/dL 28.0* 37.0* 39.0* 42.0* < > CREATININE mg/dL 1.30* 1.33* 1.46* 1.58* < > GLUCOSE mg/dL 113* 184* 373* 353* < > CALCIUM, SERUM mg/dL 8.4* 8.2* 7.9* 8.1* < > MAGNESIUM mg/dL -- 1.9 -- 1.4* -- AST U/L 23 20 18 -- < > ALT U/L 14 13 14 -- < > BILIRUBIN TOTAL mg/dL 0.4 0.4 0.3 -- < > ALBUMIN g/dL 2.5* 2.4* 2.6* -- < > TOTAL PROTEIN g/dL 4.8* 4.7* 4.5* -- < > < > = values in this interval not displayed. Estimated Creatinine Clearance: 37.3 mL/min (A) (by C-G formula based on SCr of 1.3 mg/dL (H)). IMAGING Imaging results: XR CHEST [address] [place]. [address] PATIENT NAME: SHIRIN AGUILLON : 1945 GENDER: F EXAM DATE: 04/23/2021 16:33 ORDERED FROM: [facility] ORDERING PHYSICIAN: JORDAN RAMSEY CC: -- - - - CONTRAST: READING STATION ID: [id number] mGy: PROCEDURE: XR CHEST 1 VIEW INDICATIONS: Dobhoff placement - in place TECHNIQUE: One view of the chest was acquired. COMPARISON: [facility], CR, XR CHEST 1 VIEW, 04/22/2021, 15:54. FINDINGS: Surgical changes and devices: Dobbhoff tube tip is in distal stomach lumen below the right hemidiaphragm. Fusion hardware in lumbar spine is seen. Lungs and pleura: Pulmonary vascular congestion is seen. No significant pleural effusion or gross pneumothorax. Mild pulmonary edema is seen. Mediastinum: Mediastinal contours appear normal. Heart size is enlarged. Bones and chest wall: No suspicious bony lesions. Overlying soft tissues appear unremarkable. IMPRESSION: Dobbhoff tube tip is in the region of distal stomach lumen below the right hemidiaphragm. No free air under the diaphragm. Mild pulmonary vascular congestion. No gross pneumothorax. Reviewed by: Jacinto Rodriguez M.D. on 04/23/2021 at 16:54 Approved by: Jacinto Rodriguez M.D. on 04/23/2021 at 16:57 ECHOCARDIOGRAM COMPLETE Version: 1 Study ID: [id number] [address] [address] Phone: ADULT ECHOCARDIOGRAM Name: SHIRIN AGUILLON Study Date: 04/23/2021, 7: 55 AM : 1945 BP: 147 / 80 mmHg Gender: Female Height: 60 in Age: 75 Years Weight: 187.393 lb Pt. Location: [facility]^2008^2008-10 BSA: 1.82 m? Ordering: JORDAN RAMSEY Referring: [facility] Hospitalist Clinician: Carli Vasquez Reason For Study: Dyspnea History: Summary Statements This is a technically difficult study characterized by limited endocardial visualization. Next time recommend Definity echocontrast if possible. Normal sinus rhythm with occasional PAC's. Normal LV size and wall thickness. There is subtle mid-anterior hypokinesis, but normal wall motion otherwise. EF is 50-55%. Stage II diastolic dysfunction. Normal chamber sizes. Aortic sclerosis without stenosis. Otherwise no valvular abnormalities. Compared to prior study 09/2019, focal wall motion abnormality involving mid-anterior segment is newly described Procedure: A two-dimensional transthoracic echocardiogram with color flow and Doppler was performed. The patient was supine and unable to follow breathing commands. Comparison is made with the echocardiogram of 10/21/2019. The patient was in normal sinus rhythm during the exam. Left Ventricle: The left ventricle is normal in size. Left ventricular wall thickness is at the upper limits of normal. There is no ventricular septal defect visualized. The ejection fraction is estimated to be 50-55%. There is subtle mid-anterior hypokinesis. Data is somewhat conflicting, in that patient has E/A reversal and PV systolic flow predominance. Yet e/e' ratio is >15. Right Ventricle: The right ventricle is normal in size and function. Atria: Both atria are normal in size. There is no Doppler evidence for an interatrial shunt. Mitral Valve: The mitral valve leaflets are slightly calcified. The mitral valve chordae are thickened and/or calcified. There is mild mitral regurgitation. Aortic Valve: The aortic valve is not well visualized. The aortic valve is slightly calcified. The aortic valve opens well. No aortic regurgitation is present. Tricuspid Valve: The tricuspid valve is not well visualized, but is grossly normal. There is a trace or physiologic amount of tricuspid regurgitation. The right ventricular systolic pressure is estimated to be at least 37 mmHg based on an estimated right atrial pressure of 8 mm Hg. Pulmonic Valve: The pulmonic valve is not well visualized. Great Vessels: The aortic root is normal size. The ascending aorta is normal in size. The IVC is of normal diameter and collapses less than 50% with a sniff. This suggests a right atrial pressure of 8 mm Hg. Pericardium/ Pleura: There is no pericardial effusion. There is an anterior echo-free space consistent with a fat pad. There is a small right-sided pleural effusion. 2D and M-Mode Measurements and Calculations LVIDd: 4.1 cm AoV Openin.78 cm LVIDs: 2.5 cm LVOT diam: 1.73 cm IVSd: 1.00 cm Ao root diam: 3.4 cm LVPWd: 1.03 cm asc Aorta Diam: 3.2 cm LV bai. diameter/BSA (cm/m^2): 2.27 LV sys. diameter/BSA (cm/m^2): 1.38 FS: 39.3 % EPSS: 0.92 cm RVD1 (basal): 2.9 cm IVC diam: 2.02 cm TAPSE: 2.21 cm LA A4 area: 18.1 cm? RA area: 12.3 cm? LA A2 area: 17.3 cm? RA long axis: 4.6 cm LA length (vol): 5.6 cm RA vol: 28.4 ml LA vol: 47.2 ml RA : 15.6 ml/m? LA vol index: 26.0 ml/m? Doppler Measurements and Calculations Ao V2 max: 142.6 cm/sec LVOT Max Ron: 93.9 cm/sec Ao V2 mean: 93.7 cm/sec LV V1 max P.5 mmHg Ao V2 VTI: 26.7 cm LV V1 VTI: 18.5 cm Ao max P.1 mmHg Ao mean P.9 mmHg DILAN(I,D): 1.64 cm? DILAN(V,D): 1.55 cm? DILAN indexed to BSA (cm^2/m^2): 0.90 sev ratio: 0.69 MV E max ron: 98.1 cm/sec MV dec time: 0.28 sec MV A max ron: 121.0 cm/sec MV E/A: 0.81 Med Peak E' Ron: 5.3 cm/sec E/E' med: 18.4 Lat Peak E' Ron: 7.2 cm/sec E/E' lat: 13.6 E/e' average: 16.0 TR max ron: 267.7 cm/sec PA V2 max: 81.1 cm/sec TR max P.7 mmHg PA mean P.59 mmHg MR PISA: 0.62 cm? Electronically signed by: Lucinda Bahena M.D. 04/23/2021, 3: 19 PM Electronically signed by: Xavier Johnson MD 04/28/2021 6:57 AM Portions of today's documentation have been created with the assistance of voice recognition software. Therefore, it may contain anomalous punctuation, anomalous independent misrecognitions, word substitutions, insertions or omissions. Occasional wrong-word or phonetically similar substitutions may also occur, all due to the inherent limitations of voice recognition software. Attempts to correct the above have been made by Xavier Johnson MD but it is recommended that the chart be read carefully to recognize, using context, where the substitutions may have occurred. Theresa Sharma PTA - 04/27/2021 2:52 PM PDT Attempted to see pt for PT assessment, pt minimally responsive, needing frequent cues to open eyes and acknowledge presence of HEAD CHAR FILTER TANK TENDER in room. Although never agreeing, Lou did not resist when I removed the covers and began moving BLE to EOB. Within a few seconds, Lou began to scream help me, help me, help me, Max help me. I was able to calm pt down with soft voice and touch, reassured her I was there to help her. Positioned pt back to supine. Recommend attempting to contact her spouse Max to coordinate next PT session with him present. Xavier Shelley MD - 04/27/2021 7:[address] [facility]: INPATIENT PROGRESS NOTE Patient Name: Shirin Aguillon Date of : 1945 Age: 75 y.o. Code Status: Full Code Primary Care Physician: Rogelio Braga MD Admitting Provider: Ana Mraia Narvaez MD Attending Provider: Xavier Johnson MD Admit Date: 04/15/2021 Date of Service: 04/27/2021 Hospital Day: 11 ASSESSMENT & PLAN Shirin Aguillon is a 75 y.o. female anticoagulated with Eliquis??with a hx notable for type II diabetes mellitus, hypertension, hyperlipidemia, kidney dysfunction, and rheumatoid arthritis??who presents to the ED??for evaluation of altered mental status and found to be in CAMILLE with hyperkalemia. TODAY'S PLAN: -Continue nonpharmacologic measures for encephalopathy -Advance diet as per speech and swallow -PT -discontinue restraints - mobilize patient to the extent possible - SNF referral ACTIVELY MANAGED PROBLEMS (problems are generally active day to day and carried forward): Hospital delirium, not present at admission. Improving. - Avoid any sedative medications - Ensure day/night cycle settings (blinds drawn during the day, lights off at night) - Avoid restraints Diarrhea, not present on admission, improving. Bloody and gelatinous stool. - Patient has received antibiotics since admission - C. Difficile toxin PCR negative 04/22 Deconditioning, not POA. -Physical therapy Diabetic soft tissue infection, POA. Stable. Pseudomonas colonization. - S/p bilateral calf wound debridement - Micro positive for light growth pseudomonas and zenaida albicans Type 2 diabetes mellitus uncontrolled, POA. Hemoglobin A1c of 9 -Glargine reduced on 04/27 -Sliding scale STABLE or RESOLVING PROBLEMS Hypokalemia, not present on admission. Resolved. - Replete as needed Respiratory distress, present on admission. Resolved. -Underlying JACLYN, with metabolic stress from uremia, skin infection and diarrhea - Oxygen as needed Prednisone therapy for inflammatory bowel disease and rheumatoid arthritis, present on admission - Steroids oral Prednisone ?? Chronic anemia, possible GI bleed,??present on admission and improving. Iron profile is compatiblewith anemia of chronic disease. -Continue to monitor hemoglobin transfusion threshold of 7 -Outpatient colonoscopy recommended UTI, acute, present on admission. Resolved. - Negative UC - Broad-spectrum coverage with IV cefepime complete Metabolic acidosis with respiratory partial compensation, not present on admission. Resolved. - ABG: pH 7.224, pCO2 19, HCO3 9 - Lactic acid normal - CT abdomen negative - Bicarb drip initially and then discontinued once bicarb stabilized CAMILLE, acute, present on admission. Resolved. - Nephrology consulted, appreciate their recommendations - Likely due to infection and a ATN on CKD Stage 3 - Completed temporary dialysis, removed dialysis catheter Sepsis, acute, present on admission. Resolved. Atrial fibrillation with rapid ventrilcular response , present on admission. Resolved. Body jerking, present on admission. Resolved. VTE Prophylaxis: apixaban Code Status: Full code Disposition: Anticipate discharge to: SNF by 04/29 SUBJECTIVE Chief Complaint Patient presents with ??? Altered Mental Status ??? Shortness of Breath Patient's Update She is awake but minimally verbal this morning. Occasionally crying for help but will not explain why. Interval Update Vital signs remained stable. Persistent abnormal stool.. OBJECTIVE First recorded vitals: Temp: 36.3 ??C (97.3 ??F) - BP: 90/49 - Heart Rate: (!) 106 - Resp: 20 - SpO2: 100 % O2 Flow Rate (L/min): 4 L/min Most recent vital signs: Most recent vitals: Temp: 37.3 ??C (99.1 ??F) - BP: 129/74 - Heart Rate: 84 - Resp: 20 - SpO2: 93 % O2 Flow Rate (L/min): 1.5 L/min Physical Exam Constitutional: Appearance: She is well-developed. HENT: Head: Normocephalic. Eyes: General: No scleral icterus. Neck: Trachea: No tracheal deviation. Pulmonary: Effort: No respiratory distress. Abdominal: Tenderness: There is no guarding. Musculoskeletal: Comments: Moves all 4 limbs volitionally Skin: Findings: Bruising present. No erythema. Neurological: Mental Status: She is lethargic and confused. Comments: Moves 4 extremities. Facies symmetric. Psychiatric: Speech: Speech is delayed. Behavior: Behavior is cooperative. Cognition and Memory: Cognition is impaired. Comments: Minimal verbal responses. Seems calm. Scheduled Hospital Meds apixaban, 5 mg, oral, BID diltiazem, 60 mg, oral, q6h SUELLEN insulin glargine, 17 Units, subcutaneous, q AM miconazole, , Topical, BID pantoprazole, 40 mg, oral, q AM AC predniSONE, 5 mg, oral, Daily REGULAR INSULIN, 0-6 Units, subcutaneous, q6h LABS & DIAGNOSTICS Hematology Results from last 7 days Lab Units 04/27/21 0548 04/26/21 0329 04/25/21 0508 04/23/21 0527 04/22/21 0850 WBC AUTO x10e3/uL 17.2* 12.9* 13.6* < > 25.7* BANDS %, BLOOD MANUAL % -- -- -- -- 2 HEMOGLOBIN g/dL 8.8* 7.9* 7.6* < > 9.1* HEMATOCRIT % 30.0* 26.7* 24.8* < > 31.0* MCV fL 85 83 82 < > 85 PLATELETS AUTO x10e3/uL 227 180 198 < > 311 < > = values in this interval not displayed. Chemistries Results from last 7 days Lab Units 04/27/21 0548 04/26/21 0329 04/25/21 0508 04/24/21 1157 04/24/21 0717 SODIUM mmol/L 141 141 138 143 < > POTASSIUM mmol/L 4.1 3.8 3.4* 3.3* < > CHLORIDE mmol/L 103 101 97 100 < > CO2 mmol/L 32* 36* 33* 32* < > BUN mg/dL 28.0* 37.0* 39.0* 42.0* < > CREATININE mg/dL 1.30* 1.33* 1.46* 1.58* < > GLUCOSE mg/dL 113* 184* 373* 353* < > CALCIUM, SERUM mg/dL 8.4* 8.2* 7.9* 8.1* < > MAGNESIUM mg/dL -- 1.9 -- 1.4* -- AST U/L 23 20 18 -- < > ALT U/L 14 13 14 -- < > BILIRUBIN TOTAL mg/dL 0.4 0.4 0.3 -- < > ALBUMIN g/dL 2.5* 2.4* 2.6* -- < > TOTAL PROTEIN g/dL 4.8* 4.7* 4.5* -- < > < > = values in this interval not displayed. Estimated Creatinine Clearance: 37 mL/min (A) (by C-G formula based on SCr of 1.3 mg/dL (H)). IMAGING Imaging results: XR CHEST 1 VIEW [facility] [place] [address] PATIENT NAME: SHIRIN AGUILLON : 1945 GENDER: F EXAM DATE: 04/23/2021 16:33 ORDERED FROM: [facility] ORDERING PHYSICIAN: JRODAN RAMSEY CC: -- - - - CONTRAST: READING STATION ID: [id number] mGy: PROCEDURE: XR CHEST 1 VIEW INDICATIONS: Dobhoff placement - in place TECHNIQUE: One view of the chest was acquired. COMPARISON: [facility], , XR CHEST 1 VIEW, 04/22/2021, 15:54. FINDINGS: Surgical changes and devices: Dobbhoff tube tip is in distal stomach lumen below the right hemidiaphragm. Fusion hardware in lumbar spine is seen. Lungs and pleura: Pulmonary vascular congestion is seen. No significant pleural effusion or gross pneumothorax. Mild pulmonary edema is seen. Mediastinum: Mediastinal contours appear normal. Heart size is enlarged. Bones and chest wall: No suspicious bony lesions. Overlying soft tissues appear unremarkable. IMPRESSION: Dobbhoff tube tip is in the region of distal stomach lumen below the right hemidiaphragm. No free air under the diaphragm. Mild pulmonary vascular congestion. No gross pneumothorax. Reviewed by: Jacinto Rodriguez M.D. on 04/23/2021 at 16:54 Approved by: Jacinto Rodriguez M.D. on 04/23/2021 at 16:57 ECHOCARDIOGRAM COMPLETE Version: 1 Study ID: [id number] [address] [address] Phone: ADULT ECHOCARDIOGRAM Name: SHIRIN AGUILLON Study Date: 04/23/2021, 7: 55 AM : 1945 BP: 147 / 80 mmHg Gender: Female Height: 60 in Age: 75 Years Weight: 187.393 lb Pt. Location: [facility]^2008^2008-10 BSA: 1.82 m? Ordering: JORDAN RAMSEY Referring: Leon Hospitalist Clinician: Carli Vasquez Reason For Study: Dyspnea History: Summary Statements This is a technically difficult study characterized by limited endocardial visualization. Next time recommend [place] echocontrast if possible. Normal sinus rhythm with occasional PAC's. Normal LV size and wall thickness. There is subtle mid-anterior hypokinesis, but normal wall motion otherwise. EF is 50-55%. Stage II diastolic dysfunction. Normal chamber sizes. Aortic sclerosis without stenosis. Otherwise no valvular abnormalities. Compared to prior study 09/2019, focal wall motion abnormality involving mid-anterior segment is newly described Procedure: A two-dimensional transthoracic echocardiogram with color flow and Doppler was performed. The patient was supine and unable to follow breathing commands. Comparison is made with the echocardiogram of 10/21/2019. The patient was in normal sinus rhythm during the exam. Left Ventricle: The left ventricle is normal in size. Left ventricular wall thickness is at the upper limits of normal. There is no ventricular septal defect visualized. The ejection fraction is estimated to be 50-55%. There is subtle mid-anterior hypokinesis. Data is somewhat conflicting, in that patient has E/A reversal and PV systolic flow predominance. Yet e/e' ratio is >15. Right Ventricle: The right ventricle is normal in size and function. Atria: Both atria are normal in size. There is no Doppler evidence for an interatrial shunt. Mitral Valve: The mitral valve leaflets are slightly calcified. The mitral valve chordae are thickened and/or calcified. There is mild mitral regurgitation. Aortic Valve: The aortic valve is not well visualized. The aortic valve is slightly calcified. The aortic valve opens well. No aortic regurgitation is present. Tricuspid Valve: The tricuspid valve is not well visualized, but is grossly normal. There is a trace or physiologic amount of tricuspid regurgitation. The right ventricular systolic pressure is estimated to be at least 37 mmHg based on an estimated right atrial pressure of 8 mm Hg. Pulmonic Valve: The pulmonic valve is not well visualized. Great Vessels: The aortic root is normal size. The ascending aorta is normal in size. The IVC is of normal diameter and collapses less than 50% with a sniff. This suggests a right atrial pressure of 8 mm Hg. Pericardium/ Pleura: There is no pericardial effusion. There is an anterior echo-free space consistent with a fat pad. There is a small right-sided pleural effusion. 2D and M-Mode Measurements and Calculations LVIDd: 4.1 cm AoV Openin.78 cm LVIDs: 2.5 cm LVOT diam: 1.73 cm IVSd: 1.00 cm Ao root diam: 3.4 cm LVPWd: 1.03 cm asc Aorta Diam: 3.2 cm LV bai. diameter/BSA (cm/m^2): 2.27 LV sys. diameter/BSA (cm/m^2): 1.38 FS: 39.3 % EPSS: 0.92 cm RVD1 (basal): 2.9 cm IVC diam: 2.02 cm TAPSE: 2.21 cm LA A4 area: 18.1 cm? RA area: 12.3 cm? LA A2 area: 17.3 cm? RA long axis: 4.6 cm LA length (vol): 5.6 cm RA vol: 28.4 ml LA vol: 47.2 ml RA : 15.6 ml/m? LA vol index: 26.0 ml/m? Doppler Measurements and Calculations Ao V2 max: 142.6 cm/sec LVOT Max Ron: 93.9 cm/sec Ao V2 mean: 93.7 cm/sec LV V1 max P.5 mmHg Ao V2 VTI: 26.7 cm LV V1 VTI: 18.5 cm Ao max P.1 mmHg Ao mean P.9 mmHg DILAN(I,D): 1.64 cm? DILAN(V,D): 1.55 cm? DILAN indexed to BSA (cm^2/m^2): 0.90 sev ratio: 0.69 MV E max ron: 98.1 cm/sec MV dec time: 0.28 sec MV A max ron: 121.0 cm/sec MV E/A: 0.81 Med Peak E' Ron: 5.3 cm/sec E/E' med: 18.4 Lat Peak E' Ron: 7.2 cm/sec E/E' lat: 13.6 E/e' average: 16.0 TR max ron: 267.7 cm/sec PA V2 max: 81.1 cm/sec TR max P.7 mmHg PA mean P.59 mmHg MR PISA: 0.62 cm? Electronically signed by: Lucinda Bahena M.D. 04/23/2021, 3: 19 PM Electronically signed by: Xavier Johnson MD 04/27/2021 7:50 AM Portions of today's documentation have been created with the assistance of voice recognition software. Therefore, it may contain anomalous punctuation, anomalous independent misrecognitions, word substitutions, insertions or omissions. Occasional wrong-word or phonetically similar substitutions may also occur, all due to the inherent limitations of voice recognition software. Attempts to correct the above have been made by Xavier Johnson MD but it is recommended that the chart be read carefully to recognize, using context, where the substitutions may have occurred. Ezekiel Chi - 04/26/2021 3:57 PM PDT Social Work Discharge Planning Faxed clinical records to [facility]PS at fax [phone]. Updated PRECIPITATOR OPERATOR that this task was completed Renee Zimmerman RD - 04/26/2021 1:04 PM PDT NUTRITION FOLLOW UP: ASSESS: 75 yo F admitted for sepsis and CAMILLE with hyperkalemia. Urine output improved, dialysis beingheld per notes. Pt s/p debridement of bilateral calf wound 04/18. Pt had a prolonged NPO status so Dobhoff was placed 04/22, TF was tolerated at goal. Pt pulled on NGT last night per notes, tube feeds off. Diet advanced per ST. PMHX: Arthritis, T2DM, PNA, HLD, HTN, kidney disease, UTI LABS: BUN 37.0, Cr 1.33, Glu 184, Ca 8.2, Alb 2.4 MEDS: Reviewed. Insulin, KCl. GI: BM 04/26, diarrhea. SKIN: ulcer on R& L calf, stg 2 PI on coccyx CURRENT WT: 86 kg, BMI 37.03 kg/m2, IBW: 45.5 kg DIET: Mech soft, thing liq. No PO yet. NUTRITION SUPPORT: (OFF) Glucerna 1.5 @ goal 50 ml/hr, flush 135 ml q 2 hr. ESTIMATED NEEDS: CAMILLE, BMI, wounds Calories: 8128-1323 kcal/day (20-25 kcal/kg BW) Protein: 55-70 g/day (1.0-1.2 g/kg IBW) Fluids: 2125-2550ml/day (25-30 ml/kg) NUTRITION DIAGNOSIS: 1.) Inadequate oral intake related to decreased ability to consume sufficient energy as evidenced bycurrent NPO status.---PERSISTS. 2.) Increased kcal/pro needs related to increased nutrient demand as evidence by pt with multiple pressure injuries. --PERSISTS NUTRITION INTERVENTION: 1.) Continue current diet per speech therapy. Will monitor need for nutrition supplements. MONITOR/EVALUATE: PO intake, diet tolerance, GI, wounds, labs, POC, nutrition status. Follow per high nutrition risk guidelines Louise Dunn CCC-AU PAIR - 04/26/2021 9:06 AM PDT Inpatient Speech Language Pathology Clinical Swallow Evaluation Name: Shirin Aguillon Date of : 1945 Date of Assessment: 04/26/2021 Impressions No indication of difficulty with PO intake; most significant barrier to intake is her weakness and poor UE strength and fine motor control for self-feeding. Due to the length of her hospitalization anddegree of deconditioning, Recommendations Restart soft/thins diet with supervision and assistance for all PO intake, medications as tolerated.Staff aware to not provide PO if pt not maintaining adequate alertness and participation in feeding. AU PAIR Plan of Care F/u with staff next care date; if concerns regarding PO intake are noted, consider completing MBSS to assess swallow function. Thank you for this consult and the opportunity to participate in this patient's care. History & reason for referral Shirin Aguillon, a 75 y.o. female, seen today due to MD order. Pt presented to hospital for altered mental status and found to be in CAMILLE with hyperkalemia. She is being treated for CAMILLE, anemia, DM2, deconditioning. Pt is very lethargic, says she feels confused about recent events. Bilateral wrist restraints taken off with RN approval. No history able from patient, however no reported or documented history dysphagia, head/neck cancer or surgery, GERD, unintentional weight loss, recurrent PNA. Imaging/Labs Head CT results: No acute findings. CXR results: No acute findings. MR Brain: Not performed this admission. Other relevant imaging: None. Clinical signs of infection or compromised immune system: None. Cognition/Language Alert to self, location, and year. Was able to reorient self when cued to look to whiteboard for day/date. She is minimally conversational/verbal but her language is appropriate in converstaion, no slurring detected. Dentition/Hearing/Respiration Full dentition. Hearing WFL. On 2L O2 via NC. Review of oral cavity shows healthy, moist, clean mucosa however there are trace of blood on lips, RN reports this is from dehydration and lips cracking. Oral-Motor Function Cranial nerve examination CN V (Trigeminal) Hyolaryngeal elevation and mylohyoid tension palpated during cued swallow: Intact Masseter bulge palpated during cued jaw clench: Intact Jaw opening: Symmetrical CN VII (Facial) Facial symmetry upper quadrant: Intact Facial symmetry lower quadrant: Intact Lip pucker: Intact Cheek puff: Intact CN IX (Glossopharyngeal) No clinical assessment available. Pt report of sensation changes in soft palate, posterior 1/3 tongue: No CN X (Vagus) Palatal elevation: Intact Vocal quality: WNL CN XII (Hypoglossal) Tongue protrusion: Symmetrical Bilateral tongue push against cheek: Symmetrical Fasciculations: None Vocal quality: WFL Cued cough: Perceptual observation of strong and effective cough with glottic closure Bedside PO trials Position: Upright Assist needed: Total assist, then hand over hand, then supervision long Rocha not administered as unable to follow complex commands. Consistency Signs of Aspiration Additional Observations Thins via straw Single cough noted on first, sip, then no further difficulty noted Pt drinking in slow, single sip/swallow groups. puree None Good oral clearance without residue noted. She did appear to be masticating the puree. saltine none Chewing motions appear lateralized. No oral residue appreciated after completion of cracker. Slow rate of intake overall. Electronically Signed: Louise Jaramillo CCC-AU PAIR 04/26/2021 Redd Trejo MD - 04/26/2021 6:[address] [facility]: INPATIENT PROGRESS NOTE Patient Name: Shirin Aguillon Date of : 1945 Age: 75 y.o. Code Status: Full Code Primary Care Physician: Rogelio Braga MD Admitting Provider: Ana Maria Narvaez MD Attending Provider: Xavier Johnson MD Admit Date: 04/15/2021 Date of Service: 04/26/2021 Hospital Day: 10 ASSESSMENT & PLAN Shirin Aguillon is a 75 y.o. female anticoagulated with Eliquis??with a hx notable for type II diabetes mellitus, hypertension, hyperlipidemia, kidney dysfunction, and rheumatoid arthritis??who presents to the ED??for evaluation of altered mental status and found to be in CAMILLE with hyperkalemia. TODAY'S PLAN: -Continue nonpharmacologic measures for encephalopathy -Advance diet as per speech and swallow -PT -Midline placement instead ACTIVELY MANAGED PROBLEMS (problems are generally active day to day and carried forward): Agitation and hospital delirium, not present at admission. Improving. - Avoid any sedative medications - Ensure day/night cycle settings (blinds drawn during the day, lights off at night) - Avoid restraints Type 2 diabetes mellitus uncontrolled, POA. -Glargine increased on 04/25 -Sliding scale Diarrhea, not present on admission, improving. - Patient has received antibiotics since admission - C. Difficile toxin PCR negative Deconditioning, not POA. -Physical therapy Ulceration/skin breakdown, POA. Active. - S/p bilateral calf wound debridement - Micro positive for light growth pseudomonas and zenaida albicans Hypokalemia, not present on admission. Active. - Replete as needed ?? STABLE or RESOLVING PROBLEMS Respiratory distress, present on admission. Active. -Underlying JACLYN, with metabolic stress from uremia, skin infection and diarrhea - Oxygen as needed Prednisone therapy for inflammatory bowel disease and rheumatoid arthritis, present on admission - Steroids oral ?? Type 2 diabetes, chronic, present on admission and active - Placed on subcu insulin protocol - Hemoglobin A1c of 9, will need to start medication on discharge - Good control Chronic anemia, possible GI bleed,??present on admission and improving. Iron profile is compatiblewith anemia of chronic disease. -Continue to monitor hemoglobin transfusion threshold of 7 -Outpatient colonoscopy recommended UTI, acute, present on admission. Resolving. - Negative UC - Broad-spectrum coverage with IV cefepime complete Metabolic acidosis with respiratory partial compensation, not present on admission. Resolved. - ABG: pH 7.224, pCO2 19, HCO3 9 - Lactic acid normal - CT abdomen negative - Bicarb drip initially and then discontinued once bicarb stabilized CAMILLE, acute, present on admission. Largely resolved. - Nephrology consulted, appreciate their recommendations - Likely due to infection and a ATN on CKD Stage 3 - Completed temporary dialysis, removed dialysis catheter Sepsis, acute, present on admission. Resolved. Atrial fibrillation with rapid ventrilcular response , present on admission. Resolved. Body jerking, present on admission. Resolved. VTE Prophylaxis: apixaban Code Status: Full code Disposition: Anticipate discharge to: To be determined (patient is too ill to forcast) within remains unknown (to ill to say) SUBJECTIVE Chief Complaint Patient presents with ??? Altered Mental Status ??? Shortness of Breath Patient's Update She is awake and answers questions about self and date appropriately. Interval Update Oxymask on and off, desats at night Agitated and pulled out NG tube. OBJECTIVE First recorded vitals: Temp: 36.3 ??C (97.3 ??F) - BP: 90/49 - Heart Rate: (!) 106 - Resp: 20 - SpO2: 100 % O2 Flow Rate (L/min): 4 L/min Most recent vital signs: Most recent vitals: Temp: (couldn't get a reading) - BP: (!) 158/76 - Heart Rate: 86 - Resp: 18 - SpO2: 96 % O2 Flow Rate (L/min): 2 L/min Physical Exam Constitutional: Appearance: She is well-developed. HENT: Head: Normocephalic. Eyes: General: No scleral icterus. Neck: Trachea: No tracheal deviation. Pulmonary: Effort: No respiratory distress. Abdominal: Tenderness: There is no guarding. Musculoskeletal: Comments: Moves all 4 limbs volitionally Skin: Findings: Bruising present. No erythema. Neurological: Mental Status: She is lethargic and confused. Comments: Moves 4 extremities. Facies symmetric. Psychiatric: Speech: Speech is delayed. Behavior: Behavior is cooperative. Cognition and Memory: Cognition is impaired. Comments: Minimal verbal responses. Seems calm. Scheduled Hospital Meds apixaban, 5 mg, oral, BID dextrose 50% (D50W), 25 g, intravenous, Once diltiazem, 60 mg, oral, q6h SUELLEN hydrocortisone, 25 mg, oral, Daily insulin glargine, 20 Units, subcutaneous, q AM miconazole, , Topical, BID pantoprazole, 40 mg, oral, q AM AC potassium chloride, 20 mEq, oral, BID REGULAR INSULIN, 0-6 Units, subcutaneous, q6h LABS & DIAGNOSTICS Hematology Results from last 7 days Lab Units 04/26/21 0329 04/25/21 0508 04/24/21 0430 04/23/21 0527 04/22/21 0850 WBC AUTO x10e3/uL 12.9* 13.6* 18.1* < > 25.7* BANDS %, BLOOD MANUAL % -- -- -- -- 2 HEMOGLOBIN g/dL 7.9* 7.6* 7.9* < > 9.1* HEMATOCRIT % 26.7* 24.8* 25.4* < > 31.0* MCV fL 83 82 80* < > 85 PLATELETS AUTO x10e3/uL 180 198 218 < > 311 < > = values in this interval not displayed. Chemistries Results from last 7 days Lab Units 04/26/21 0329 04/25/21 0508 04/24/21 1157 04/24/21 0717 04/24/21 0717 SODIUM mmol/L 141 138 143 < > 142 POTASSIUM mmol/L 3.8 3.4* 3.3* < > 2.7* CHLORIDE mmol/L 101 97 100 < > 100 CO2 mmol/L 36* 33* 32* < > 33* BUN mg/dL 37.0* 39.0* 42.0* < > 41.0* CREATININE mg/dL 1.33* 1.46* 1.58* < > 1.77* GLUCOSE mg/dL 184* 373* 353* < > 281* CALCIUM, SERUM mg/dL 8.2* 7.9* 8.1* < > 8.2* MAGNESIUM mg/dL 1.9 -- 1.4* -- -- AST U/L 20 18 -- -- 22 ALT U/L 13 14 -- -- 16 BILIRUBIN TOTAL mg/dL 0.4 0.3 -- -- 0.4 ALBUMIN g/dL 2.4* 2.6* -- -- 2.7* TOTAL PROTEIN g/dL 4.7* 4.5* -- -- 4.9* < > = values in this interval not displayed. Estimated Creatinine Clearance: 36.7 mL/min (A) (by C-G formula based on SCr of 1.33 mg/dL (H)). IMAGING Imaging results: XR CHEST [address] [place]. [address] PATIENT NAME: SHIRIN AGUILLON : 1945 GENDER: F EXAM DATE: 04/23/2021 16:33 ORDERED FROM: [facility] ORDERING PHYSICIAN: JORDAN RAMSEY CC: -- - - - CONTRAST: READING STATION ID: [id number] mGy: PROCEDURE: XR CHEST 1 VIEW INDICATIONS: Dobhoff placement - in place TECHNIQUE: One view of the chest was acquired. COMPARISON: [facility], , XR CHEST 1 VIEW, 04/22/2021, 15:54. FINDINGS: Surgical changes and devices: Dobbhoff tube tip is in distal stomach lumen below the right hemidiaphragm. Fusion hardware in lumbar spine is seen. Lungs and pleura: Pulmonary vascular congestion is seen. No significant pleural effusion or gross pneumothorax. Mild pulmonary edema is seen. Mediastinum: Mediastinal contours appear normal. Heart size is enlarged. Bones and chest wall: No suspicious bony lesions. Overlying soft tissues appear unremarkable. IMPRESSION: Dobbhoff tube tip is in the region of distal stomach lumen below the right hemidiaphragm. No free air under the diaphragm. Mild pulmonary vascular congestion. No gross pneumothorax. Reviewed by: Jacinto Rodriguez M.D. on 04/23/2021 at 16:54 Approved by: Jacinto Rodriguez M.D. on 04/23/2021 at 16:57 ECHOCARDIOGRAM COMPLETE Version: 1 Study ID: [id number] [address] [address] Phone: ADULT ECHOCARDIOGRAM Name: SHIRIN AGUILLON Study Date: 04/23/2021, 7: 55 AM : 1945 BP: 147 / 80 mmHg Gender: Female Height: 60 in Age: 75 Years Weight: 187.393 lb Pt. Location: [facility]^2008^2008-10 BSA: 1.82 m? Ordering: JORDAN RAMSEY [facility] Clin[facility]: Carli Vasquez Reason For Study: Dyspnea History: Summary Statements This is a technically difficult study characterized by limited endocardial visualization. Next time recommend [place] echocontrast if possible. Normal sinus rhythm with occasional PAC's. Normal LV size and wall thickness. There is subtle mid-anterior hypokinesis, but normal wall motion otherwise. EF is 50-55%. Stage II diastolic dysfunction. Normal chamber sizes. Aortic sclerosis without stenosis. Otherwise no valvular abnormalities. Compared to prior study 09/2019, focal wall motion abnormality involving mid-anterior segment is newly described Procedure: A two-dimensional transthoracic echocardiogram with color flow and Doppler was performed. The patient was supine and unable to follow breathing commands. Comparison is made with the echocardiogram of 10/21/2019. The patient was in normal sinus rhythm during the exam. Left Ventricle: The left ventricle is normal in size. Left ventricular wall thickness is at the upper limits of normal. There is no ventricular septal defect visualized. The ejection fraction is estimated to be 50-55%. There is subtle mid-anterior hypokinesis. Data is somewhat conflicting, in that patient has E/A reversal and PV systolic flow predominance. Yet e/e' ratio is >15. Right Ventricle: The right ventricle is normal in size and function. Atria: Both atria are normal in size. There is no Doppler evidence for an interatrial shunt. Mitral Valve: The mitral valve leaflets are slightly calcified. The mitral valve chordae are thickened and/or calcified. There is mild mitral regurgitation. Aortic Valve: The aortic valve is not well visualized. The aortic valve is slightly calcified. The aortic valve opens well. No aortic regurgitation is present. Tricuspid Valve: The tricuspid valve is not well visualized, but is grossly normal. There is a trace or physiologic amount of tricuspid regurgitation. The right ventricular systolic pressure is estimated to be at least 37 mmHg based on an estimated right atrial pressure of 8 mm Hg. Pulmonic Valve: The pulmonic valve is not well visualized. Great Vessels: The aortic root is normal size. The ascending aorta is normal in size. The IVC is of normal diameter and collapses less than 50% with a sniff. This suggests a right atrial pressure of 8 mm Hg. Pericardium/ Pleura: There is no pericardial effusion. There is an anterior echo-free space consistent with a fat pad. There is a small right-sided pleural effusion. 2D and M-Mode Measurements and Calculations LVIDd: 4.1 cm AoV Openin.78 cm LVIDs: 2.5 cm LVOT diam: 1.73 cm IVSd: 1.00 cm Ao root diam: 3.4 cm LVPWd: 1.03 cm asc Aorta Diam: 3.2 cm LV bai. diameter/BSA (cm/m^2): 2.27 LV sys. diameter/BSA (cm/m^2): 1.38 FS: 39.3 % EPSS: 0.92 cm RVD1 (basal): 2.9 cm IVC diam: 2.02 cm TAPSE: 2.21 cm LA A4 area: 18.1 cm? RA area: 12.3 cm? LA A2 area: 17.3 cm? RA long axis: 4.6 cm LA length (vol): 5.6 cm RA vol: 28.4 ml LA vol: 47.2 ml RA : 15.6 ml/m? LA vol index: 26.0 ml/m? Doppler Measurements and Calculations Ao V2 max: 142.6 cm/sec LVOT Max Ron: 93.9 cm/sec Ao V2 mean: 93.7 cm/sec LV V1 max P.5 mmHg Ao V2 VTI: 26.7 cm LV V1 VTI: 18.5 cm Ao max P.1 mmHg Ao mean P.9 mmHg DILAN(I,D): 1.64 cm? DILAN(V,D): 1.55 cm? DILAN indexed to BSA (cm^2/m^2): 0.90 sev ratio: 0.69 MV E max ron: 98.1 cm/sec MV dec time: 0.28 sec MV A max ron: 121.0 cm/sec MV E/A: 0.81 Med Peak E' Ron: 5.3 cm/sec E/E' med: 18.4 Lat Peak E' Ron: 7.2 cm/sec E/E' lat: 13.6 E/e' average: 16.0 TR max ron: 267.7 cm/sec PA V2 max: 81.1 cm/sec TR max P.7 mmHg PA mean P.59 mmHg MR PISA: 0.62 cm? Electronically signed by: Lucinda Bahena M.D. 04/23/2021, 3: 19 PM Electronically signed by: Redd Trejo MD 04/26/2021 11:08 AM Portions of today's documentation have been created with the assistance of voice recognition software. Therefore, it may contain anomalous punctuation, anomalous independent misrecognitions, word substitutions, insertions or omissions. Occasional wrong-word or phonetically similar substitutions may also occur, all due to the inherent limitations of voice recognition software. Attempts to correct the above have been made by Redd Trejo MD but it is recommended that the chart be read carefully to recognize, using context, where the substitutions may have occurred. Associated attestation - Xavier Johnson MD - 04/29/2021 7:01 PM PDT I examined the patient and reviewed relevant laboratory and radiologic data on the day of service. Marce reviewed the findings as detailed by the resident physician. I agree with the assessment and plan as stated below.Valorie Troy MSW - 04/25/2021 12:47 PM PDT SOCIAL WORK: PROGRESS NOTE Data: EMR reviewed. Pt is on day 9 for Problem List Items Addressed This Visit Musculoskeletal * (Principal) Pressure injury of skin of right calf Relevant Orders [facility] [place]. TEST - (Completed) Culture, Deep Abscess Aerobic&Anaerobic w/gram stain (Completed) Other Visit Diagnoses Acute renal failure, unspecified acute renal failure type (CMS/HCC) - Primary Hyperkalemia Sepsis due to skin infection (CMS/[facility]) Acute anemia Occult blood in stools Acute cystitis without hematuria Patient is not medically stable for discharge at this time. Per discussion with provider, discharge needs have not been identified. Social Work consults to coordinate these services have not been ordered by physician at this time. Pt not medically stable for DC. APS report made for possibile self neglect due to condition of wounds Barriers to Discharge Include: medical stability Assessment: alert and oriented x4 Per PRECIPITATOR OPERATOR interactions, Physician Documentation and Nursing Documentation, patient has capacity for self care and has decisional capacity at this time. Plan: Anticipate patient to discharge to Home PRECIPITATOR OPERATOR will continue to follow pt's clinical course. HUDSON Qiu LICASW de Sandro Mayfield MD - 04/25/2021 12:02 PM PDT NEPRHOLOGY PROGRESS NOTE [facility] PATIENT NAME: Shirin Aguillon DATE OF : 1945 PRIMARY CARE PROVIDER: Rogelio Braga MD DATE OF SERVICE: 04/25/2021 SUBJECTIVE No acute issues. Urine output was up to 2 L. Creatinine is down to 1.46 from 1.77 yesterday morning. She continues to be on tube feeds. Khari, her spouse was at bedside. MEDICATIONS Scheduled Medications: apixaban, 5 mg, oral, BID dextrose 50% (D50W), 25 g, intravenous, Once diltiazem, 60 mg, oral, q6h SUELLEN [START ON 04/26/2021] hydrocortisone, 25 mg, oral, Daily insulin glargine, 20 Units, subcutaneous, q AM miconazole, , Topical, BID [START ON 04/26/2021] pantoprazole, 40 mg, oral, q AM AC potassium chloride, 20 mEq, oral, BID REGULAR INSULIN, 0-6 Units, subcutaneous, q6h Continuous Infusions: PRN Medications: ??? acetaminophen ??? labetalol ??? Insert peripheral IV AND lidocaine AND Maintain IV access AND Saline lock IV AND sodium chloride ??? Insert peripheral IV AND lidocaine AND Maintain IV access AND Saline lock IV AND sodium chloride ??? Insert peripheral IV AND lidocaine AND Maintain IV access AND Saline lock IV AND sodium chloride ??? metoprolol ??? naloxone ??? [COMPLETED] Prepare/Crossmatch RBC: 1 Units AND [COMPLETED] Transfuse RBC: 1 Units AND [COMPLETED] Nursing communication: Ensure provider has obtained Informed Consent for Blood Transfusion AND Vital Signs AND sodium chloride AND [COMPLETED] Nursing Communication: Transfusion Reaction Management ??? sodium chloride EXAMINATION Vital Signs: Temp: [36.2 ??C (97.1 ??F)-36.9 ??C (98.4 ??F)] 36.5 ??C (97.7 ??F) Heart Rate: [81-105] 84 Resp: [20-68] 26 BP: (144-177)/(73-89) 168/84 Admission: Weight: 72.6 kg Patient Weight 04/24/21 86 kg 07/31/20 72.1 kg Intake and Output: Intake/Output Summary (Last 24 hours) at 04/25/2021 1202 Last data filed at 04/25/2021 0640 Gross per 24 hour Intake 2704 ml Output 1350 ml Net 1354 ml General Appearance: No acute distress, awake Head: Normocephalic, no obvious abnormality, atraumatic. Eyes: Normal conjunctiva, EOM's intact. ENT: NG tube in place Neck: No JVD Lungs: Clear to auscultation on anterior lung jay Heart: Regular rhythm, normal rate Abdomen: Soft & non-tender, active bowel sounds Genitourinary: Howard in place Extremities: Trace to 1+ edema on both arms Skin: Normal skin color, no rashes or lesions. LABORATORY AND IMAGING Pertinent Labs: reviewed Hematology Results from last 7 days Lab Units 04/25/21 0508 04/24/21 0430 04/23/21 0527 04/22/21 0850 04/22/21 0850 WBC AUTO x10e3/uL 13.6* 18.1* 20.8* < > 25.7* BANDS %, BLOOD MANUAL % -- -- -- -- 2 HEMOGLOBIN g/dL 7.6* 7.9* 8.0* < > 9.1* HEMATOCRIT % 24.8* 25.4* 25.7* < > 31.0* MCV fL 82 80* 81 < > 85 PLATELETS AUTO x10e3/uL 198 218 241 < > 311 < > = values in this interval not displayed. Coagulation Studies No lab exists for component: PROTIME, PTT Chemistries Results from last 7 days Lab Units 04/25/21 0508 04/24/21 1157 04/24/21 0717 04/22/21 1616 04/22/21 0722 04/20/21 0522 04/19/21 0511 SODIUM mmol/L 138 143 142 < > 148* < > 140 POTASSIUM mmol/L 3.4* 3.3* 2.7* < > 4.2 < > 4.1 CHLORIDE mmol/L 97 100 100 < > 107 < > 103 CO2 mmol/L 33* 32* 33* < > 9* < > 23 BUN mg/dL 39.0* 42.0* 41.0* < > 42.0* < > 28.0* CREATININE mg/dL 1.46* 1.58* 1.77* < > 1.85* < > 1.62* CALCIUM, SERUM mg/dL 7.9* 8.1* 8.2* < > 9.1 < > 8.1* MAGNESIUM mg/dL -- 1.4* -- -- -- -- -- PHOSPHORUS mg/dL -- -- -- -- -- -- 3.9 AST U/L 18 -- 22 -- 29 < > -- ALT U/L 14 -- 16 -- 22 < > -- BILIRUBIN TOTAL mg/dL 0.3 -- 0.4 -- 0.3 < > -- ALBUMIN g/dL 2.6* -- 2.7* -- 3.2* < > 2.6* TOTAL PROTEIN g/dL 4.5* -- 4.9* -- 5.8* < > -- < > = values in this interval not displayed. Estimated Creatinine Clearance: 33.4 mL/min (A) (by C-G formula based on SCr of 1.46 mg/dL (H)). Urinalysis No lab exists for component: CLARITYU, COLORU, SPECGRAV, KETONESU, PROTEINU, BILIRUBINUR, PHUR, BLOODU, NITRITE, LEUKOCYTESUR, BACTERIA, SQEPITHELUA;3 Cardiac Enzymes Results from last 7 days Lab Units 04/22/21 0850 PROBNP pg/mL 43,003* Lipid Profile Imaging: With mild pulmonary vascular congestion on x-ray from April 23 ASSESSMENT AND PLAN Patient Active Problem List Diagnosis ??? Seronegative rheumatoid arthritis of multiple sites (CMS/HCC) ??? Osteoarthropathy ??? Type II diabetes mellitus with complication (CMS/HCC) ??? Renal insufficiency ??? Grief ??? Psoriatic arthritis (CMS/HCC) ??? Abdominal pain ??? Functional diarrhea ??? Nausea and vomiting ??? Excessive body weight loss ??? Pressure injury of skin of right calf Assessment: 1. CAMILLE secondary to septic ATN Creatinine down to 1.46 from 1.77 yesterday. She remains nonoliguric. 2. CKD stage G2-3A/A2; baseline creatinine 0.95 from August 2020 3. History of nephrolithiasis 4. Coronary artery disease 5. Hypertension; elevated BP; restarted on PO Cardizem 6. DM2 7. Hypokalemia Likely from correction of metabolic acidosis; improving but remains low at 3.4--continue replacement 8. Metabolic acidosis; now overcorrected Patient has been on bicarbonate infusion since April 22--discontinued April 24 9. UTI; s/p empiric cefepime Plan: Ms. Aguillon's renal function continues to improve. Urine output is excellent. Potassium remains low but improving. Continue replacement. Repeat potassium level and magnesium tomorrow. Blood pressures are elevated. Cardizem is back to PO. Consider adding Coreg if blood pressures remain elevated. Nephrology will sign off at this point. Please call again if with questions. Thank you for allowing us to participate in the care of your patient. We will follow along with you. Signed, Sandro Emerson MD 04/25/2021 12:02 PM Pager:[phone] Total time spent 25 minutes in reviewing chart, evaluating patient and coordinating care Xavier Johnson MD - 04/25/2021 7:[address] [facility]: INPATIENT PROGRESS NOTE Patient Name: Shirin Aguillon Date of : 1945 Age: 75 y.o. Code Status: Full Code Primary Care Physician: Rogelio Braga MD Admitting Provider: Ana Maria Narvaez MD Attending Provider: Xavier Johnson MD Admit Date: 04/15/2021 Date of Service: 04/25/2021 Hospital Day: 9 ASSESSMENT & PLAN Shirin Aguillon is a 75 y.o. female anticoagulated with Eliquis??with a hx notable for type II diabetes mellitus, hypertension, hyperlipidemia, kidney dysfunction, and rheumatoid arthritis??who presents to the ED??for evaluation of altered mental status and found to be in CAMILLE with hyperkalemia. TODAY'S PLAN: -Continue nonpharmacologic measures for encephalopathy -Increase physical therapy and mobilization efforts ACTIVELY MANAGED PROBLEMS (problems are generally active day to day and carried forward): Agitation and hospital delirium, not present at admission. Improving. - Avoid any sedative medications - Ensure day/night cycle settings (blinds drawn during the day, lights off at night) - Restraints as needed CAMILLE, acute, present on admission. Improving. - Nephrology consulted, appreciate their recommendations - Likely due to infection and a ATN on CKD Stage 3 -Completed temporary dialysis, removed dialysis catheter Acute and chronic anemia, possible GI bleed,??present on admission and improving. Iron profile is compatible with anemia of chronic disease. - HgB stable for now therefore hold off on consulting GI?? -Continue to monitor hemoglobin transfusion threshold of 7 -Outpatient colonoscopy recommended Type 2 diabetes mellitus uncontrolled, POA. -Glargine increased on 04/25 -Continue with every 6 hours correctional insulin regular for tube feeds Diarrhea, not present on admission, improving. - Patient has received antibiotics since admission - C. Difficile toxin PCR negative Deconditioning, not POA. -Physical therapy Ulceration/skin breakdown, POA. Active. - S/p bilateral calf wound debridement - Micro positive for light growth pseudomonas and zenaida albicans Hypokalemia, not present on admission. Active. - Replete as needed ?? STABLE or RESOLVING PROBLEMS Respiratory distress, present on admission. Active. -Underlying JACLYN, with metabolic stress from uremia, skin infection and diarrhea - Oxygen as needed Prednisone therapy for inflammatory bowel disease and rheumatoid arthritis, present on admission - Steroids oral ?? Type 2 diabetes, chronic, present on admission and active - Placed on subcu insulin protocol - Hemoglobin A1c of 9, will need to start medication on discharge - Good control UTI, acute, present on admission. Resolving. - Negative UC - Broad-spectrum coverage with IV cefepime. Metabolic acidosis with respiratory partial compensation, not present on admission. Resolved. - ABG: pH 7.224, pCO2 19, HCO3 9 - Lactic acid normal - CT abdomen negative - Bicarb drip initially and then discontinued once bicarb stabilized Sepsis, acute, present on admission. Resolved. Atrial fibrillation with rapid ventrilcular response , present on admission. Resolved. Body jerking, present on admission. Resolved. VTE Prophylaxis: Anticoagulation contraindicated at this time due to DVTCONTRAINDICATIONS: Current GI bleed Code Status: Full code Disposition: Anticipate discharge to: To be determined (patient is too ill to forcast) within remains unknown (to ill to say) SUBJECTIVE Chief Complaint Patient presents with ??? Altered Mental Status ??? Shortness of Breath Patient's Update She is awake and minimally verbally interactive today seems appropriate. Interval Update Oxymask no BPAP. Resp rate remains increased. WBC declining. No fever. OBJECTIVE First recorded vitals: Temp: 36.3 ??C (97.3 ??F) - BP: 90/49 - Heart Rate: (!) 106 - Resp: 20 - SpO2: 100 % O2 Flow Rate (L/min): 4 L/min Most recent vital signs: Most recent vitals: Temp: 36.4 ??C (97.6 ??F) - BP: (!) 162/89 - Heart Rate: 100 - Resp: (!) 27 - SpO2: 95 % O2 Flow Rate (L/min): 1 L/min Physical Exam Constitutional: Appearance: She is well-developed. HENT: Head: Normocephalic. Eyes: General: No scleral icterus. Neck: Trachea: No tracheal deviation. Pulmonary: Effort: No respiratory distress. Abdominal: Tenderness: There is no guarding. Musculoskeletal: Comments: Moves all 4 limbs volitionally Skin: Findings: Bruising present. No erythema. Neurological: Mental Status: She is lethargic and confused. Comments: Moves 4 extremities. Facies symmetric. Psychiatric: Speech: She is noncommunicative. Comments: Minimal verbal responses. Seems calm. Scheduled Hospital Meds apixaban, 5 mg, oral, BID dextrose 50% (D50W), 25 g, intravenous, Once hydrocortisone, 25 mg, oral, q8h insulin glargine, 5 Units, subcutaneous, BID miconazole, , Topical, BID pantoprazole, 40 mg, intravenous, q12h QUEtiapine, 25 mg, oral, Nightly REGULAR INSULIN, 0-6 Units, subcutaneous, q6h LABS & DIAGNOSTICS Hematology Results from last 7 days Lab Units 04/25/21 0508 04/24/21 0430 04/23/21 0527 04/22/21 0850 04/22/21 0850 WBC AUTO x10e3/uL 13.6* 18.1* 20.8* < > 25.7* BANDS %, BLOOD MANUAL % -- -- -- -- 2 HEMOGLOBIN g/dL 7.6* 7.9* 8.0* < > 9.1* HEMATOCRIT % 24.8* 25.4* 25.7* < > 31.0* MCV fL 82 80* 81 < > 85 PLATELETS AUTO x10e3/uL 198 218 241 < > 311 < > = values in this interval not displayed. Chemistries Results from last 7 days Lab Units 04/25/21 0508 04/24/21 1157 04/24/21 0717 04/22/21 1616 04/22/21 0722 04/20/21 0522 04/19/21 0511 SODIUM mmol/L 138 143 142 < > 148* < > 140 POTASSIUM mmol/L 3.4* 3.3* 2.7* < > 4.2 < > 4.1 CHLORIDE mmol/L 97 100 100 < > 107 < > 103 CO2 mmol/L 33* 32* 33* < > 9* < > 23 BUN mg/dL 39.0* 42.0* 41.0* < > 42.0* < > 28.0* CREATININE mg/dL 1.46* 1.58* 1.77* < > 1.85* < > 1.62* GLUCOSE mg/dL 373* 353* 281* < > 211* < > 204* CALCIUM, SERUM mg/dL 7.9* 8.1* 8.2* < > 9.1 < > 8.1* MAGNESIUM mg/dL -- 1.4* -- -- -- -- -- PHOSPHORUS mg/dL -- -- -- -- -- -- 3.9 AST U/L 18 -- 22 -- 29 < > -- ALT U/L 14 -- 16 -- 22 < > -- BILIRUBIN TOTAL mg/dL 0.3 -- 0.4 -- 0.3 < > -- ALBUMIN g/dL 2.6* -- 2.7* -- 3.2* < > 2.6* TOTAL PROTEIN g/dL 4.5* -- 4.9* -- 5.8* < > -- < > = values in this interval not displayed. Estimated Creatinine Clearance: 33.4 mL/min (A) (by C-G formula based on SCr of 1.46 mg/dL (H)). IMAGING Imaging results: XR CHEST [address] [place] [address] PATIENT NAME: SHIRIN AGUILLON : 1945 GENDER: F EXAM DATE: 04/23/2021 16:33 ORDERED FROM: [facility] ORDERING PHYSICIAN: JORDAN RAMSEY CC: -- - - - CONTRAST: READING STATION ID: [id number] mGy: PROCEDURE: XR CHEST 1 VIEW INDICATIONS: Dobhoff placement - in place TECHNIQUE: One view of the chest was acquired. COMPARISON: [facility], , XR CHEST 1 VIEW, 04/22/2021, 15:54. FINDINGS: Surgical changes and devices: Dobbhoff tube tip is in distal stomach lumen below the right hemidiaphragm. Fusion hardware in lumbar spine is seen. Lungs and pleura: Pulmonary vascular congestion is seen. No significant pleural effusion or gross pneumothorax. Mild pulmonary edema is seen. Mediastinum: Mediastinal contours appear normal. Heart size is enlarged. Bones and chest wall: No suspicious bony lesions. Overlying soft tissues appear unremarkable. IMPRESSION: Dobbhoff tube tip is in the region of distal stomach lumen below the right hemidiaphragm. No free air under the diaphragm. Mild pulmonary vascular congestion. No gross pneumothorax. Reviewed by: Jacinto Rodriguez M.D. on 04/23/2021 at 16:54 Approved by: Jacinto Rodriguez M.D. on 04/23/2021 at 16:57 ECHOCARDIOGRAM COMPLETE Version: 1 Study ID: [id number] [address] [address] Phone: ADULT ECHOCARDIOGRAM Name: SHIRIN AGUILLON Study Date: 04/23/2021, 7: 55 AM : 1945 BP: 147 / 80 mmHg Gender: Female Height: 60 in Age: 75 Years Weight: 187.393 lb Pt. Location: [facility]^2008^2008-10 BSA: 1.82 m? Ordering: JORDAN RAMSEY Referring: Leon Hospitalist Clinician: Carli Vasquez Reason For Study: Dyspnea History: Summary Statements This is a technically difficult study characterized by limited endocardial visualization. Next time recommend Definity echocontrast if possible. Normal sinus rhythm with occasional PAC's. Normal LV size and wall thickness. There is subtle mid-anterior hypokinesis, but normal wall motion otherwise. EF is 50-55%. Stage II diastolic dysfunction. Normal chamber sizes. Aortic sclerosis without stenosis. Otherwise no valvular abnormalities. Compared to prior study 09/2019, focal wall motion abnormality involving mid-anterior segment is newly described Procedure: A two-dimensional transthoracic echocardiogram with color flow and Doppler was performed. The patient was supine and unable to follow breathing commands. Comparison is made with the echocardiogram of 10/21/2019. The patient was in normal sinus rhythm during the exam. Left Ventricle: The left ventricle is normal in size. Left ventricular wall thickness is at the upper limits of normal. There is no ventricular septal defect visualized. The ejection fraction is estimated to be 50-55%. There is subtle mid-anterior hypokinesis. Data is somewhat conflicting, in that patient has E/A reversal and PV systolic flow predominance. Yet e/e' ratio is >15. Right Ventricle: The right ventricle is normal in size and function. Atria: Both atria are normal in size. There is no Doppler evidence for an interatrial shunt. Mitral Valve: The mitral valve leaflets are slightly calcified. The mitral valve chordae are thickened and/or calcified. There is mild mitral regurgitation. Aortic Valve: The aortic valve is not well visualized. The aortic valve is slightly calcified. The aortic valve opens well. No aortic regurgitation is present. Tricuspid Valve: The tricuspid valve is not well visualized, but is grossly normal. There is a trace or physiologic amount of tricuspid regurgitation. The right ventricular systolic pressure is estimated to be at least 37 mmHg based on an estimated right atrial pressure of 8 mm Hg. Pulmonic Valve: The pulmonic valve is not well visualized. Great Vessels: The aortic root is normal size. The ascending aorta is normal in size. The IVC is of normal diameter and collapses less than 50% with a sniff. This suggests a right atrial pressure of 8 mm Hg. Pericardium/ Pleura: There is no pericardial effusion. There is an anterior echo-free space consistent with a fat pad. There is a small right-sided pleural effusion. 2D and M-Mode Measurements and Calculations LVIDd: 4.1 cm AoV Openin.78 cm LVIDs: 2.5 cm LVOT diam: 1.73 cm IVSd: 1.00 cm Ao root diam: 3.4 cm LVPWd: 1.03 cm asc Aorta Diam: 3.2 cm LV bai. diameter/BSA (cm/m^2): 2.27 LV sys. diameter/BSA (cm/m^2): 1.38 FS: 39.3 % EPSS: 0.92 cm RVD1 (basal): 2.9 cm IVC diam: 2.02 cm TAPSE: 2.21 cm LA A4 area: 18.1 cm? RA area: 12.3 cm? LA A2 area: 17.3 cm? RA long axis: 4.6 cm LA length (vol): 5.6 cm RA vol: 28.4 ml LA vol: 47.2 ml RA : 15.6 ml/m? LA vol index: 26.0 ml/m? Doppler Measurements and Calculations Ao V2 max: 142.6 cm/sec LVOT Max Ron: 93.9 cm/sec Ao V2 mean: 93.7 cm/sec LV V1 max P.5 mmHg Ao V2 VTI: 26.7 cm LV V1 VTI: 18.5 cm Ao max P.1 mmHg Ao mean P.9 mmHg DILAN(I,D): 1.64 cm? DILAN(V,D): 1.55 cm? DILAN indexed to BSA (cm^2/m^2): 0.90 sev ratio: 0.69 MV E max ron: 98.1 cm/sec MV dec time: 0.28 sec MV A max ron: 121.0 cm/sec MV E/A: 0.81 Med Peak E' Ron: 5.3 cm/sec E/E' med: 18.4 Lat Peak E' Ron: 7.2 cm/sec E/E' lat: 13.6 E/e' average: 16.0 TR max ron: 267.7 cm/sec PA V2 max: 81.1 cm/sec TR max P.7 mmHg PA mean P.59 mmHg MR PISA: 0.62 cm? Electronically signed by: Lucinda Bahena M.D. 04/23/2021, 3: 19 PM Electronically signed by: Xavier Johnson MD 04/25/2021 7:13 AM Portions of today's documentation have been created with the assistance of voice recognition software. Therefore, it may contain anomalous punctuation, anomalous independent misrecognitions, word substitutions, insertions or omissions. Occasional wrong-word or phonetically similar substitutions may also occur, all due to the inherent limitations of voice recognition software. Attempts to correct the above have been made by Xavier Johnson MD but it is recommended that the chart be read carefully to recognize, using context, where the substitutions may have occurred. Wilfred Cardoza MD - 04/24/2021 2:40 PM PDT Cardiology: Echocardiogram performed yesterday demonstrated very mild mid anterior wall hypokinesis. Would consider standard cardioprotective medications including beta-marisel, statin and aspirin. I would suggest that the patient follow-up with cardiology as an outpatient. Further work-up is likely indicated with stress myocardial perfusion scan. This is not urgent and does not need to be performed during this hospitalization. Wilfred Peters MD Summer Navarro DPT - 04/24/2021 10:10 AM PDT Inpatient Physical Therapy Initial Evaluation Patient Name: Shirin Aguillon MR#: [id number] Today's Date: 04/24/2021 Patient Active Problem List Diagnosis ??? Seronegative rheumatoid arthritis of multiple sites (CMS/HCC) ??? Osteoarthropathy ??? Type II diabetes mellitus with complication (CMS/HCC) ??? Renal insufficiency ??? Grief ??? Psoriatic arthritis (CMS/HCC) ??? Abdominal pain ??? Functional diarrhea ??? Nausea and vomiting ??? Excessive body weight loss ??? Pressure injury of skin of right calf Past Medical History: Diagnosis Date ??? Abdominal pain ??? Arthritis ??? Arthritis, rheumatoid (CMS/HCC) ??? Chronic diarrhea ??? Delayed emergence from general anesthesia ??? Diabetes (CMS/HCC) ??? Disorder Nearly severed pinky finger ??? Gallbladder disease ??? H/O recurrent pneumonia ??? Hyperlipidemia ??? Hypertension ??? Kidney disease Kidney dysfunction ??? Low back pain ongoing ??? Migraine headache ??? Neuropathy ??? PONV (postoperative nausea and vomiting) ??? Skin cancer ??? Thyroid disease ??? Tubular adenoma Ileocecal valve tubular adenoma ??? UTI (urinary tract infection) ??? Weight loss, non-intentional Past Surgical History: Procedure Laterality Date ??? ABDOMINAL SURGERY ??? APPENDECTOMY 2017 along with colectomy ??? BACK SURGERY Major back surgery ??? CARPAL TUNNEL RELEASE ??? CHOLECYSTECTOMY ??? COLONOSCOPY 2 x ??? LAPAROSCOPIC ASSISSTED TOTAL COLECTOMY W/ J-POUCH Right 04/12/2017 ??? DC COLONOSCOPY W/BIOPSY SINGLE/MULTIPLE N/A 07/31/2020 Procedure: COLONOSCOPY; Surgeon: Mike Laguna MD; Location: [facility] GI; Service: Gastroenterology ??? DC DEBRIDEMENT, SKIN, SUB-Q TISSUE,=<20 SQ CM Bilateral 04/18/2021 Procedure: debridement of bilateral calf wound; Surgeon: Patria Cruz MD; Location: [facility] OR; Service: ENT ??? DC EDG TRANSORAL BIOPSY SINGLE/MULTIPLE N/A 07/31/2020 Procedure: EGD; Surgeon: Mike Laguna MD; Location: [facility] GI; Service: Gastroenterology ??? SHOULDER SURGERY 2008 Shoulder repair ??? SPINAL FUSION Fusion, et al 4 procedures in one 2011 ??? TUBAL LIGATION 1976 Precautions: Precautions General Precautions: AMS, fall risk, impulsive Home Environment: Home Living Type of Home: House Home Layout: Two level Home Access: (14 stairs to second level, unclear if pt needs to access thi) Mobility Equipment: Front wheeled walker, Manual wheelchair Prior Function Level of [place]: Independent with ADLs and functional transfers (unclear baseline mobility level) Lives With: Spouse Receives Help From: Family Cognitive/Neuro: Cognition Overall Cognitive Status: Impaired Arousal/Alertness: (responds to voice by looking at speaker) Memory: Unable to assess Orientation Level: Disoriented X4 Safety Judgment: Decreased awareness of need for safety (impulsive, pulling on restraints in bed) Mobility: Mobility Supine to Sit: Moderate assistance (assist for LE's and trunk to EOB, pt assisting with scooting) Sit to Supine: Maximum assistance Sit to Stand: Unable at this time Ambulation: Unable at this time Sitting Balance: Minimal assistance Standing Balance: Unable at this time Assessment: Assessment/Prognosis Assessment: Pt is a 75 y.o female presenting with sepsis, hyperkalemia, UTI, GI bleed and is s/p debridement of bilateral LE pressure wounds. Pt has a PMH of DVT, diabetes, HTN, HLD< RA and irritable bowel disease. Pt was recently discharged from SNF back to [place] with . [place] Per notes, pt has a FWW and w/c, unclear of level of function prior to admit. Pt is awake, responds to verbal stimuli by looking at the speaker but does not respond to any questions or follow directions. Pt moaning/crying out at times. She was noted to be restless in bed, pulling at her restraints. Pt removed from restraints, RN present to assist as needed.Pt did follow one command to move her LE's toward the edge of the bed and started the process, but needed assist to complete. Pt needed moderate assist to upright trunk. When partially sitting at EOB, pt was able to scoot herself spontaneously to improve sitting position. Pt sat at EOB with up to min A. Discussed orientation information, but pt continues to not respond to questions or follow directions. After a few minutes edge of bed, pt began to fall posteriorly bringing her trunk toward the HOB, unable to answer questions about symptoms. She was assisted back to supine with dillon Hagan RN and DIRECTOR REGULATORY AFFAIRS in providing care, to re-apply restraints, floating heel boots and reposition pt. At this time, recommend 24/7 assist and current BLS transport due to pt's inability to safely support herself in an uprightsitting position. PT to continue to progress fucntional mobility as pt tolerates while admitted. Prognosis: Fair Recommendation and Plan: Treatment/Interventions: Functional transfer training, LE strengthening/ROM, Endurance training, Cognitive reorientation, Patient/family training, Equipment eval/education, Bedmobility, Gait training Recommendation IP PT Status: (!) 1 PT Frequency (in-house): 5-7/wk Post-discharge recommendation: 24 hour supervision/assist Discharge Transportation: BLS (due to inability to maintain an upright position) PT Frequency upon discharge: Daily Goals: Multidisciplinary Problems IP Therapy Problems (Active) Problem: Physical Therapy - Adult Goal Priority Disciplines By Discharge: Performs mobility at highest level of function for planned discharge setting. See evaluation for individualized goals. PT Description: 04/24/21 *pt to perform bed mobility with HOB flat, no rails and with stand-by assistance *pt to transfer with front wheeled walker with stand-by assistance *pt to ambulate 150 feet with front wheeled walker and with stand-by assistance *pt to ascend and descend 7 stairs with hand rail and with stand-by assistance in order to safely negotiate home environment Electronically signed by Summer Sanchez DPT Sandor Slaughter MD - 04/24/2021 9:47 AM PDT NEPRHOLOGY PROGRESS NOTE [facility] PATIENT NAME: Shirin Aguillon DATE OF : 1945 PRIMARY CARE PROVIDER: Rogelio Braga MD DATE OF SERVICE: 04/24/2021 SUBJECTIVE Ms. Aguillon's Howard catheter was apparently leaking and replaced overnight. Urine output was at least1 liter over last 24 hours, 650 mL since this morning. She received furosemide 40 mg IV yesterday evening. She was sleeping and briefly arousable. She was calm but nonverbal. Potassium level was down to 2.7 this morning, bicarbonate up to 33--bicarb infusion has been discontinued Creatinine down to 1.77 from 1.98 She remains on Cardizem drip at 5 mg/h MEDICATIONS Scheduled Medications: apixaban, 5 mg, oral, BID cefepime, 1 g, intravenous, q24h dextrose 50% (D50W), 25 g, intravenous, Once hydrocortisone, 25 mg, oral, q8h insulin glargine, 5 Units, subcutaneous, BID miconazole, , Topical, BID pantoprazole, 40 mg, intravenous, q12h potassium chloride, 40 mEq, oral, q6h QUEtiapine, 25 mg, oral, Nightly REGULAR INSULIN, 0-6 Units, subcutaneous, q6h Continuous Infusions: dilTIAZem, 5 mg/hr, Last Rate: 5 mg/hr (04/24/21 0518) [Held by provider] sodium chloride, 100 mL/hr, Last Rate: Stopped (04/21/21 2300) PRN Medications: ??? acetaminophen ??? haloperidol lactate ??? labetalol ??? Insert peripheral IV AND lidocaine AND Maintain IV access AND Saline lock IV AND sodium chloride ??? Insert peripheral IV AND lidocaine AND Maintain IV access AND Saline lock IV AND sodium chloride ??? Insert peripheral IV AND lidocaine AND Maintain IV access AND Saline lock IV AND sodium chloride ??? metoprolol ??? naloxone ??? [COMPLETED] Prepare/Crossmatch RBC: 1 Units AND [COMPLETED] Transfuse RBC: 1 Units AND [COMPLETED] Nursing communication: Ensure provider has obtained Informed Consent for Blood Transfusion AND Vital Signs AND sodium chloride AND [COMPLETED] Nursing Communication: Transfusion Reaction Management ??? sodium chloride EXAMINATION Vital Signs: Temp: [36.5 ??C (97.7 ??F)-36.8 ??C (98.3 ??F)] 36.5 ??C (97.7 ??F) Heart Rate: [84-108] 88 Resp: [19-52] 24 BP: (133-171)/(58-95) 160/75 Admission: Weight: 72.6 kg Patient Weight 04/24/21 86 kg 07/31/20 72.1 kg Intake and Output: Intake/Output Summary (Last 24 hours) at 04/24/2021 0947 Last data filed at 04/24/2021 0732 Gross per 24 hour Intake 2410.6 ml Output 1650 ml Net 760.6 ml General Appearance: No acute distress, sleeping Head: Normocephalic, no obvious abnormality, atraumatic. Eyes: Normal conjunctiva, EOM's intact. ENT: NG tube in place Neck: No JVD Lungs: Clear to auscultation on anterior lung jay Heart: Regular rhythm, normal rate Abdomen: Soft & non-tender, active bowel sounds Genitourinary: Howard in place Extremities: Trace to 1+ edema on both arms Skin: Normal skin color, no rashes or lesions. LABORATORY AND IMAGING Pertinent Labs: reviewed Hematology Results from last 7 days Lab Units 04/24/21 0430 04/23/21 0527 04/22/21 0850 WBC AUTO x10e3/uL 18.1* 20.8* 25.7* BANDS %, BLOOD MANUAL % -- -- 2 HEMOGLOBIN g/dL 7.9* 8.0* 9.1* HEMATOCRIT % 25.4* 25.7* 31.0* MCV fL 80* 81 85 PLATELETS AUTO x10e3/uL 218 241 311 Coagulation Studies No lab exists for component: PROTIME, PTT Chemistries Results from last 7 days Lab Units 04/24/21 0717 04/23/21 0527 04/22/21 1616 04/22/21 0722 04/22/21 0722 04/21/21 1043 04/21/21 1043 04/20/21 0522 04/19/21 0511 SODIUM mmol/L 142 144 146* < > 148* < > 147* < > 140 POTASSIUM mmol/L 2.7* 3.5 4.0 < > 4.2 < > 3.7 < > 4.1 CHLORIDE mmol/L 100 101 104 < > 107 < > 111* < > 103 CO2 mmol/L 33* 18 11* < > 9* < > 17* < > 23 BUN mg/dL 41.0* 44.0* 45.0* < > 42.0* < > 33.0* < > 28.0* CREATININE mg/dL 1.77* 1.98* 2.09* < > 1.85* < > 1.54* < > 1.62* CALCIUM, SERUM mg/dL 8.2* 8.1* 8.6 < > 9.1 < > 8.3* < > 8.1* PHOSPHORUS mg/dL -- -- -- -- -- -- -- -- 3.9 AST U/L 22 -- -- -- 29 -- 21 < > -- ALT U/L 16 -- -- -- 22 -- 17 < > -- BILIRUBIN TOTAL mg/dL 0.4 -- -- -- 0.3 -- 0.3 < > -- ALBUMIN g/dL 2.7* -- -- -- 3.2* -- 2.6* < > 2.6* TOTAL PROTEIN g/dL 4.9* -- -- -- 5.8* -- 5.0* < > -- < > = values in this interval not displayed. Estimated Creatinine Clearance: 27.6 mL/min (A) (by C-G formula based on SCr of 1.77 mg/dL (H)). Urinalysis Results from last 7 days Lab Units 04/17/21 1251 UROBILINOGEN, URINALYSIS EU/dL 0.2 (Normal) RBC, URINALYSIS /HPF 0-2 WBC, URINALYSIS /HPF >50 Packed (TNTC)* Cardiac Enzymes Results from last 7 days Lab Units 04/22/21 0850 PROBNP pg/mL 43,003* Lipid Profile Imaging: With mild pulmonary vascular congestion on x-ray from April 23 ASSESSMENT AND PLAN Patient Active Problem List Diagnosis ??? Seronegative rheumatoid arthritis of multiple sites (CMS/HCC) ??? Osteoarthropathy ??? Type II diabetes mellitus with complication (CMS/HCC) ??? Renal insufficiency ??? Grief ??? Psoriatic arthritis (CMS/HCC) ??? Abdominal pain ??? Functional diarrhea ??? Nausea and vomiting ??? Excessive body weight loss ??? Pressure injury of skin of right calf Assessment: 1. CAMILLE secondary to septic ATN Creatinine down to 1.77 from 1.98; she is currently nonoliguric 2. CKD stage G2-3A/A2; baseline creatinine 0.95 from August 2020 3. History of nephrolithiasis 4. Coronary artery disease 5. Hypertension; elevated BP; on Cardizem drip at 5 mg/h 6. DM2 7. Hypokalemia Likely from correction of metabolic acidosis 8. Metabolic acidosis; now overcorrected Patient has been on bicarbonate infusion since April 22--discontinued April 24 9. UTI; on empiric cefepime Plan: Ms. Aguillon's renal function is improving. She is nonoliguric. Urine collection yesterday was likelyinaccurate because her Howard catheter was leaking. This has been changed overnight. Continue supportive therapy. If with increased work of breathing, may give another 40 mg IV Lasix. Will order potassium chloride 40 mEq elixir Q6 x 2. Repeat BMP at noon. Check Mg. Avoid NSAIDs and IV contrast. Renally dose medications. Thank you for allowing us to participate in the care of your patient. We will follow along with you. Signed, Sandro Emerson MD 04/24/2021 9:47 AM Pager:[phone] Total time spent 35 minutes in reviewing chart, evaluating patient and coordinating care Redd Trejo MD - 04/24/2021 6:[address] [facility]: INPATIENT PROGRESS NOTE Patient Name: Shirin Aguillon Date of : 1945 Age: 75 y.o. Code Status: Full Code Primary Care Physician: Rogelio Braga MD Admitting Provider: Ana Maria Narvaez MD Attending Provider: Xavier Johnson MD Admit Date: 04/15/2021 Date of Service: 04/24/2021 Hospital Day: 8 ASSESSMENT & PLAN Shirin Aguillon is a 75 y.o. female anticoagulated with Eliquis??with a hx notable for type II diabetes mellitus, hypertension, hyperlipidemia, kidney dysfunction, and rheumatoid arthritis??who presents to the ED??for evaluation of altered mental status and found to be in CAMILLE with hyperkalemia. TODAY'S PLAN: - BiPAP if needed - Discontinue abx - Cardiology to see patient ACTIVELY MANAGED PROBLEMS (problems are generally active day to day and carried forward): Respiratory distress, present on admission. Active. - Possibly due to prev metabolic acidosis (possibly starvation ketoacidosis) - Possibly worsened by subtle mid-anterior hypokinesis seen on echo, cardiology consulted, appreciate their recs - Oxygen as needed Agitation and hospital delirium, not present at admission. Improving. - Avoid any sedative medications - Redirect as much as possible - Ensure day/night cycle settings (blinds drawn during the day, lights off at night) - Restraints as needed - Seroquel nightly ?? Ulceration/skin breakdown, POA. Active. - S/p bilateral calf wound debridement - Continue to monitor WBCs, fevers - Micro positive for light growth pseudomonas and zenaida albicans Hypokalemia, not present on admission. Active. - Replete as needed GI bleed,??present on admission and improving. - HgB stable for now therefore hold off on consulting GI Diarrhea, not present on admission, improving. - Patient has received antibiotics since admission - C. Difficile toxin PCR negative ?? CHRONIC or RESOLVING PROBELMS ?? Prednisone therapy for inflammatory bowel disease and rheumatoid arthritis, present on admission - Steroids oral ?? Type 2 diabetes, chronic, present on admission and active - Placed on subcu insulin protocol - Hemoglobin A1c of 9, will need to start medication on discharge - Good control CAMILLE, acute, present on admission. Improving. - Nephrology consulted, appreciate their recommendations - Likely due to infection and a ATN on CKD Stage 3 - Remove dialysis catheter UTI, acute, present on admission. Resolving. - Negative UC - Broad-spectrum coverage with IV cefepime. Metabolic acidosis with respiratory partial compensation, not present on admission. Resolved. - ABG: pH 7.224, pCO2 19, HCO3 9 - Lactic acid normal - CT abdomen negative - Bicarb drip initially and then discontinued once bicarb stabilized Sepsis, acute, present on admission. Resolved. Atrial fibrillation with rapid ventrilcular response , present on admission. Resolved. Body jerking, present on admission. Resolved. VTE Prophylaxis: Anticoagulation contraindicated at this time due to DVTCONTRAINDICATIONS: Current GI bleed Code Status: Full code Disposition: Anticipate discharge to: To be determined (patient is too ill to forcast) within remains unknown (to ill to say) SUBJECTIVE Chief Complaint Patient presents with ??? Altered Mental Status ??? Shortness of Breath Patient's Update Patient is more calm today. She still not able to engage in meaningful conversation is not agitated. Interval Update No overnight events PT - 24 hr/assist OBJECTIVE First recorded vitals: Temp: 36.3 ??C (97.3 ??F) - BP: 90/49 - Heart Rate: (!) 106 - Resp: 20 - SpO2: 100 % O2 Flow Rate (L/min): 4 L/min Most recent vital signs: Most recent vitals: Temp: 37.1 ??C (98.7 ??F) - BP: (!) 161/69 - Heart Rate: 94 - Resp: (!) 24 - SpO2: 92 % O2 Flow Rate(L/min): 1 L/min Physical Exam Constitutional: Appearance: She is well-developed. HENT: Head: Normocephalic. Eyes: General: No scleral icterus. Neck: Trachea: No tracheal deviation. Pulmonary: Effort: No respiratory distress. Abdominal: Tenderness: There is no guarding. Musculoskeletal: Comments: Moves all 4 limbs volitionally Skin: Findings: No erythema. Neurological: Mental Status: She is lethargic, disoriented and confused. Psychiatric: Speech: She is noncommunicative. Scheduled Hospital Meds apixaban, 5 mg, oral, BID dextrose 50% (D50W), 25 g, intravenous, Once hydrocortisone, 25 mg, oral, q8h insulin glargine, 5 Units, subcutaneous, BID magnesium sulfate, 2 g, intravenous, q4h miconazole, , Topical, BID pantoprazole, 40 mg, intravenous, q12h potassium chloride, 40 mEq, oral, q6h potassium chloride, 40 mEq, intravenous, Once QUEtiapine, 25 mg, oral, Nightly REGULAR INSULIN, 0-6 Units, subcutaneous, q6h LABS & DIAGNOSTICS Hematology Results from last 7 days Lab Units 04/24/21 0430 04/23/21 0527 04/22/21 0850 WBC AUTO x10e3/uL 18.1* 20.8* 25.7* BANDS %, BLOOD MANUAL % -- -- 2 HEMOGLOBIN g/dL 7.9* 8.0* 9.1* HEMATOCRIT % 25.4* 25.7* 31.0* MCV fL 80* 81 85 PLATELETS AUTO x10e3/uL 218 241 311 Chemistries Results from last 7 days Lab Units 04/24/21 1157 04/24/21 0717 04/23/21 0527 04/22/21 1616 04/22/21 0722 04/21/21 1043 04/21/21 1043 04/20/21 0522 04/19/21 0511 SODIUM mmol/L 143 142 144 < > 148* < > 147* < > 140 POTASSIUM mmol/L 3.3* 2.7* 3.5 < > 4.2 < > 3.7 < > 4.1 CHLORIDE mmol/L 100 100 101 < > 107 < > 111* < > 103 CO2 mmol/L 32* 33* 18 < > 9* < > 17* < > 23 BUN mg/dL 42.0* 41.0* 44.0* < > 42.0* < > 33.0* < > 28.0* CREATININE mg/dL 1.58* 1.77* 1.98* < > 1.85* < > 1.54* < > 1.62* GLUCOSE mg/dL 353* 281* 414* < > 211* < > 172* < > 204* CALCIUM, SERUM mg/dL 8.1* 8.2* 8.1* < > 9.1 < > 8.3* < > 8.1* MAGNESIUM mg/dL 1.4* -- -- -- -- -- -- -- -- PHOSPHORUS mg/dL -- -- -- -- -- -- -- -- 3.9 AST U/L -- 22 -- -- 29 -- 21 < > -- ALT U/L -- 16 -- -- 22 -- 17 < > -- BILIRUBIN TOTAL mg/dL -- 0.4 -- -- 0.3 -- 0.3 < > -- ALBUMIN g/dL -- 2.7* -- -- 3.2* -- 2.6* < > 2.6* TOTAL PROTEIN g/dL -- 4.9* -- -- 5.8* -- 5.0* < > -- < > = values in this interval not displayed. Estimated Creatinine Clearance: 30.9 mL/min (A) (by C-G formula based on SCr of 1.58 mg/dL (H)). IMAGING Imaging results: XR CHEST [address] [place] [address] PATIENT NAME: SHIRIN AGUILLON : 1945 GENDER: F EXAM DATE: 04/23/2021 16:33 ORDERED FROM: [facility] ORDERING PHYSICIAN: JORDAN RAMSEY CC: -- - - - CONTRAST: READING STATION ID: [id number] mGy: PROCEDURE: XR CHEST 1 VIEW INDICATIONS: Dobhoff placement - in place TECHNIQUE: One view of the chest was acquired. COMPARISON: [facility], , XR CHEST 1 VIEW, 04/22/2021, 15:54. FINDINGS: Surgical changes and devices: Dobbhoff tube tip is in distal stomach lumen below the right hemidiaphragm. Fusion hardware in lumbar spine is seen. Lungs and pleura: Pulmonary vascular congestion is seen. No significant pleural effusion or gross pneumothorax. Mild pulmonary edema is seen. Mediastinum: Mediastinal contours appear normal. Heart size is enlarged. Bones and chest wall: No suspicious bony lesions. Overlying soft tissues appear unremarkable. IMPRESSION: Dobbhoff tube tip is in the region of distal stomach lumen below the right hemidiaphragm. No free air under the diaphragm. Mild pulmonary vascular congestion. No gross pneumothorax. Reviewed by: Jacinto Rodriguez M.D. on 04/23/2021 at 16:54 Approved by: Jacinto Rodriguez M.D. on 04/23/2021 at 16:57 ECHOCARDIOGRAM COMPLETE Version: 1 Study ID: [id number] [address] [address] Phone: ADULT ECHOCARDIOGRAM Name: SHIRIN AGUILLON Study Date: 04/23/2021, 7: 55 AM : 1945 BP: 147 / 80 mmHg Gender: Female Height: 60 in Age: 75 Years Weight: 187.393 lb Pt. Location: [facility]^2008^2008-10 BSA: 1.82 m? Ordering: JORDAN RAMSEY [facility] Clinician: Carli Vasquez Reason For Study: Dyspnea History: Summary Statements This is a technically difficult study characterized by limited endocardial visualization. Next time recommend DefinXenapto echocontrast if possible. Normal sinus rhythm with occasional PAC's. Normal LV size and wall thickness. There is subtle mid-anterior hypokinesis, but normal wall motion otherwise. EF is 50-55%. Stage II diastolic dysfunction. Normal chamber sizes. Aortic sclerosis without stenosis. Otherwise no valvular abnormalities. Compared to prior study 09/2019, focal wall motion abnormality involving mid-anterior segment is newly described Procedure: A two-dimensional transthoracic echocardiogram with color flow and Doppler was performed. The patient was supine and unable to follow breathing commands. Comparison is made with the echocardiogram of 10/21/2019. The patient was in normal sinus rhythm during the exam. Left Ventricle: The left ventricle is normal in size. Left ventricular wall thickness is at the upper limits of normal. There is no ventricular septal defect visualized. The ejection fraction is estimated to be 50-55%. There is subtle mid-anterior hypokinesis. Data is somewhat conflicting, in that patient has E/A reversal and PV systolic flow predominance. Yet e/e' ratio is >15. Right Ventricle: The right ventricle is normal in size and function. Atria: Both atria are normal in size. There is no Doppler evidence for an interatrial shunt. Mitral Valve: The mitral valve leaflets are slightly calcified. The mitral valve chordae are thickened and/or calcified. There is mild mitral regurgitation. Aortic Valve: The aortic valve is not well visualized. The aortic valve is slightly calcified. The aortic valve opens well. No aortic regurgitation is present. Tricuspid Valve: The tricuspid valve is not well visualized, but is grossly normal. There is a trace or physiologic amount of tricuspid regurgitation. The right ventricular systolic pressure is estimated to be at least 37 mmHg based on an estimated right atrial pressure of 8 mm Hg. Pulmonic Valve: The pulmonic valve is not well visualized. Great Vessels: The aortic root is normal size. The ascending aorta is normal in size. The IVC is of normal diameter and collapses less than 50% with a sniff. This suggests a right atrial pressure of 8 mm Hg. Pericardium/ Pleura: There is no pericardial effusion. There is an anterior echo-free space consistent with a fat pad. There is a small right-sided pleural effusion. 2D and M-Mode Measurements and Calculations LVIDd: 4.1 cm AoV Openin.78 cm LVIDs: 2.5 cm LVOT diam: 1.73 cm IVSd: 1.00 cm Ao root diam: 3.4 cm LVPWd: 1.03 cm asc Aorta Diam: 3.2 cm LV bai. diameter/BSA (cm/m^2): 2.27 LV sys. diameter/BSA (cm/m^2): 1.38 FS: 39.3 % EPSS: 0.92 cm RVD1 (basal): 2.9 cm IVC diam: 2.02 cm TAPSE: 2.21 cm LA A4 area: 18.1 cm? RA area: 12.3 cm? LA A2 area: 17.3 cm? RA long axis: 4.6 cm LA length (vol): 5.6 cm RA vol: 28.4 ml LA vol: 47.2 ml RA : 15.6 ml/m? LA vol index: 26.0 ml/m? Doppler Measurements and Calculations Ao V2 max: 142.6 cm/sec LVOT Max Ron: 93.9 cm/sec Ao V2 mean: 93.7 cm/sec LV V1 max P.5 mmHg Ao V2 VTI: 26.7 cm LV V1 VTI: 18.5 cm Ao max P.1 mmHg Ao mean P.9 mmHg DILAN(I,D): 1.64 cm? DILAN(V,D): 1.55 cm? DILAN indexed to BSA (cm^2/m^2): 0.90 sev ratio: 0.69 MV E max ron: 98.1 cm/sec MV dec time: 0.28 sec MV A max ron: 121.0 cm/sec MV E/A: 0.81 Med Peak E' Ron: 5.3 cm/sec E/E' med: 18.4 Lat Peak E' Ron: 7.2 cm/sec E/E' lat: 13.6 E/e' average: 16.0 TR max ron: 267.7 cm/sec PA V2 max: 81.1 cm/sec TR max P.7 mmHg PA mean P.59 mmHg MR PISA: 0.62 cm? Electronically signed by: Lucinda Bahena M.D. 04/23/2021, 3: 19 PM Electronically signed by: Redd Trejo MD 04/24/2021 1:05 PM Portions of today's documentation have been created with the assistance of voice recognition software. Therefore, it may contain anomalous punctuation, anomalous independent misrecognitions, word substitutions, insertions or omissions. Occasional wrong-word or phonetically similar substitutions may also occur, all due to the inherent limitations of voice recognition software. Attempts to correct the above have been made by Redd Trejo MD but it is recommended that the chart be read carefully to recognize, using context, where the substitutions may have occurred. Associated attestation - Xavier Johnson MD - 04/24/2021 5:55 PM PDT I examined the patient and reviewed relevant laboratory and radiologic data on the day of service. Marce reviewed the findings as detailed by the resident physician. I agree with the assessment and plan as stated below.Cari Darby LICSW - 04/23/2021 3:09 PM PDT SOCIAL WORK: PROGRESS NOTE Data: EMR reviewed. Pt is on day 7 for Problem List Items Addressed This Visit Musculoskeletal * (Principal) Pressure injury of skin of right calf Relevant Orders MISC. TEST - (Completed) Culture, Deep Abscess Aerobic&Anaerobic w/gram stain (Completed) Other Visit Diagnoses Acute renal failure, unspecified acute renal failure type (CMS/HCC) - Primary Hyperkalemia Sepsis due to skin infection (CMS/HCC) Acute anemia Occult blood in stools Acute cystitis without hematuria Patient is not medically stable for discharge at this time. Per discussion with provider, discharge needs have not been identified. Social Work consults to coordinate these services have not been ordered by physician at this time. Pt likely to be here through next week. PRECIPITATOR OPERATOR to follow for wound care recommendations, PT recommendations and physician orders. No immediate needs identified at this time. Barriers to Discharge Include: Medical progression. Assessment: Not able to assess at this time. Plan: Prognosis and disposition are uncertain at this time. PRECIPITATOR OPERATOR will continue to follow pt's clinical course. ERIN Winslow [place] DPT - 04/23/2021 1:35 PM PDT Spoke with RN this pm regarding PT. Pt still not responding, opening eyes or following commands. PT to follow 1 more time for appropriateness in PT evaluation and treatment. RAMILA FarleyT Ricardo Tucker MD - 04/23/2021 12:17 PM PDT NEPHROLOGY PROGRESS NOTE [facility] PATIENT NAME: Shirin Aguillon DATE OF : 1945 PRIMARY CARE PROVIDER: Rogelio Braga MD DATE OF ADMISSION: 04/15/2021 DATE OF SERVICE: 04/23/2021 SUBJECTIVE I saw and evaluated Lou on rounds. She remains with altered mentation and is lethargic now after needing haldol overnight. Urine output has been low overnight. BP seems better with diltiazem drip. Labs show improved creatinine and acidemia. MEDICATIONS Scheduled Medications: apixaban, 5 mg, oral, BID cefepime, 1 g, intravenous, q24h dextrose 50% (D50W), 25 g, intravenous, Once hydrocortisone, 25 mg, oral, q8h insulin glargine, 5 Units, subcutaneous, BID miconazole, , Topical, BID pantoprazole, 40 mg, intravenous, q12h QUEtiapine, 25 mg, oral, Nightly REGULAR INSULIN, 0-6 Units, subcutaneous, q6h Continuous Infusions: dilTIAZem, 5 mg/hr, Last Rate: 5 mg/hr (04/23/21 0646) [Held by provider] sodium bicarbonate infusion, 100 mL/hr, Last Rate: Stopped (04/23/21 0920) [Held by provider] sodium chloride, 100 mL/hr, Last Rate: Stopped (04/21/21 2300) PRN Medications: ??? acetaminophen ??? haloperidol lactate ??? labetalol ??? Insert peripheral IV AND lidocaine AND Maintain IV access AND Saline lock IV AND sodium chloride ??? Insert peripheral IV AND lidocaine AND Maintain IV access AND Saline lock IV AND sodium chloride ??? Insert peripheral IV AND lidocaine AND Maintain IV access AND Saline lock IV AND sodium chloride ??? metoprolol ??? naloxone ??? [COMPLETED] Prepare/Crossmatch RBC: 1 Units AND [COMPLETED] Transfuse RBC: 1 Units AND [COMPLETED] Nursing communication: Ensure provider has obtained Informed Consent for Blood Transfusion AND Vital Signs AND sodium chloride AND [COMPLETED] Nursing Communication: Transfusion Reaction Management ??? sodium chloride EXAMINATION Vital Signs: Temp: [36.4 ??C (97.6 ??F)-36.8 ??C (98.2 ??F)] 36.8 ??C (98.2 ??F) Heart Rate: [64-108] 103 Resp: [22-66] 34 BP: (98-165)/(42-88) 165/80 Admission: Weight: 72.6 kg Intake and Output: Intake/Output Summary (Last 24 hours) at 04/23/2021 1217 Last data filed at 04/23/2021 1100 Gross per 24 hour Intake 4286.77 ml Output 520 ml Net 3766.77 ml General Appearance: Lethargic, minimally responsive to voice Head: Normocephalic, no obvious abnormality Lungs: Diminished breath sounds with rhonchi Heart: Regular rate and rhythm, S1, S2 normal, no murmur, no rub or gallop. Extremities: No edema. LABORATORY AND IMAGING Hematology Results from last 7 days Lab Units 04/23/21 0527 04/22/21 0850 04/21/21 0502 WBC AUTO x10e3/uL 20.8* 25.7* 15.9* BANDS %, BLOOD MANUAL % -- 2 -- HEMOGLOBIN g/dL 8.0* 9.1* 8.2* HEMATOCRIT % 25.7* 31.0* 27.0* MCV fL 81 85 83 PLATELETS AUTO x10e3/uL 241 311 240 Coagulation Studies No lab exists for component: PROTIME, PTT Chemistries Results from last 7 days Lab Units 04/23/21 0527 04/22/21 1616 04/22/21 0722 04/21/21 1043 04/21/21 1043 04/20/21 0522 04/20/21 0522 04/19/21 0511 04/19/21 0511 SODIUM mmol/L 144 146* 148* < > 147* < > 141 < > 140 POTASSIUM mmol/L 3.5 4.0 4.2 < > 3.7 < > 4.0 < > 4.1 CHLORIDE mmol/L 101 104 107 < > 111* < > 104 < > 103 CO2 mmol/L 18 11* 9* < > 17* < > 23 < > 23 BUN mg/dL 44.0* 45.0* 42.0* < > 33.0* < > 30.0* < > 28.0* CREATININE mg/dL 1.98* 2.09* 1.85* < > 1.54* < > 1.73* < > 1.62* CALCIUM, SERUM mg/dL 8.1* 8.6 9.1 < > 8.3* < > 8.7 < > 8.1* PHOSPHORUS mg/dL -- -- -- -- -- -- -- -- 3.9 AST U/L -- -- 29 -- 21 -- 22 -- -- ALT U/L -- -- 22 -- 17 -- 18 -- -- BILIRUBIN TOTAL mg/dL -- -- 0.3 -- 0.3 -- 0.3 -- -- ALBUMIN g/dL -- -- 3.2* -- 2.6* -- 2.7* < > 2.6* TOTAL PROTEIN g/dL -- -- 5.8* -- 5.0* -- 5.1* -- -- < > = values in this interval not displayed. Estimated Creatinine Clearance: 24.5 mL/min (A) (by C-G formula based on SCr of 1.98 mg/dL (H)). Urinalysis Results from last 7 days Lab Units 04/17/21 1251 UROBILINOGEN, URINALYSIS EU/dL 0.2 (Normal) RBC, URINALYSIS /HPF 0-2 WBC, URINALYSIS /HPF >50 Packed (TNTC)* Cardiac Enzymes Results from last 7 days Lab Units 04/22/21 0850 PROBNP pg/mL 43,003* Lipid Profile ASSESSMENT AND PLAN Patient Active Problem List Diagnosis ??? Seronegative rheumatoid arthritis of multiple sites ([facility]) ??? Osteoarthropathy ??? Type II diabetes mellitus with complication (CMS/HCC) ??? Renal insufficiency ??? Grief ??? Psoriatic arthritis (CMS/HCC) ??? Abdominal pain ??? Functional diarrhea ??? Nausea and vomiting ??? Excessive body weight loss ??? Pressure injury of skin of right calf 1. CAMILLE due to infection and ATN on CKD stage 3:??Creatinine relatively stable today at 1.98. Urine output is down a bit. Although she does not look overly overloaded on exam, her CT does have bilateraleffusions. May need some gentle IV diuresis if remains oliguric. No need for dialysis. Check labs daily. 2. Anion gap metabolic acidosis: ABG now actually with respiratory alkalosis as primary process. Ketones qualitative is positive. B-hydroxybutyrate is pending. I suspect this could be a starvation ketoacidosis. It is improved today with IV HCO3 overnight and tube feedings. Will add some oral NaHCO3 down NGT till CO2 normal. 3. HTN: Much improved on diltiazem drip. 4. Volume:??As above, may need gentle diuresis. 5. Anemia: Hgb??back down at 8.0.??Ferritin low at 99 and iron sat low at 11%.??no IV iron though while infected. 6. Electrolytes: Hyperkalemia resolved.??Hypernatremia improved with the IVF. ?? Signed, Ricardo Austin MD 04/23/2021 12:17 PM Pager: [phone] Summer Woods DPT - 04/23/2021 10:17 AM PDT PT evaluation received. Spoke with RN this am, pt not currently appropriate for PT. Will follow up later today to determine appropriateness of PT. RAMILA FarleyT Ana Maria Nunes RD - 04/23/2021 9:45 AM PDT NUTRITION FOLLOW UP: ASSESS: 75 yo F admitted to CCU for sepsis and CAMILLE with hyperkalemia. Urine output improved, dialysis being held per notes. Pt s/p debridement of bilateral calf wound 04/18. Pt remains NPO due to AMS. Pt has now been NPO x7 days. Per notes, pt agitated/confused. Dobhoff was placed 04/22 and TF started.So far tolerating well, Currently running @ 30ml/hr. PMHX: Arthritis, T2DM, PNA, HLD, HTN, kidney disease, UTI LABS: Bun 44, car cleaner 1.98, Glu 414, Ca 8.1 MEDS: Reviewed. Insulin GI: BM 04/22 SKIN: ulcer on R& L calf, stg 2 PI on coccyx CURRENT WT: 85 kg, BMI 36.6 kg/m2, IBW: 45.5 kg DIET: NPO x 7 days NUTRITION SUPPORT: Glucerna 1.5 @ 30ml/hr ESTIMATED NEEDS: CAMILLE, BMI, wounds Calories: 7565-5776 kcal/day (20-25 kcal/kg BW) Protein: 55-70 g/day (1.0-1.2 g/kg IBW) Fluids: 2125-2550ml/day (25-30ml/kg) NUTRITION DIAGNOSIS: 1.) Inadequate oral intake related to decreased ability to consume sufficient energy as evidenced bycurrent NPO status.---PERSISTS. 2.) Increased kcal/pro needs related to increased nutrient demand as evidence by pt with multiple pressure injuries. --PERSISTS NUTRITION INTERVENTION: 1.) Continue to advance TF of Glucerna 1.5 by 10ml q 6 hrs to goal rate of 50ml/hr to provide 1725kcal and 95g pro (100% kcal and pro needs). IVF has been stopped. Will increase free water flush to 135ml q 2 hrs. TF at goal rate + flush would provide 2492ml H20/day. 2.) TF at goal rate will be able pt's protein needs. Will monitor renal labs and adjust TF if needed. MONITOR/EVALUATE: NPO status, TF na, flush, GI, wounds, labs, POC, nutrition status. Follow per high nutrition risk guidelines Redd Campbell MD - 04/23/2021 6:[address] [facility]: INPATIENT PROGRESS NOTE Patient Name: Shirin Aguillon Date of : 1945 Age: 75 y.o. Code Status: Full Code Primary Care Physician: Rogelio Braga MD Admitting Provider: Ana Maria Narvaez MD Attending Provider: Jordan Ramsey MD Admit Date: 04/15/2021 Date of Service: 04/23/2021 Hospital Day: 7 ASSESSMENT & PLAN Shirin Aguillon is a 75 y.o. female anticoagulated with Eliquis??with a hx notable for type II diabetes mellitus, hypertension, hyperlipidemia, kidney dysfunction, and rheumatoid arthritis??who presents to the ED??for evaluation of altered mental status and found to be in CAMILLE with hyperkalemia. TODAY'S PLAN: - Swtiched to dilt drip, stop clonidine patch - Oral steriods - ABG - BiPAP if needed - Echo ACTIVELY MANAGED PROBLEMS (problems are generally active day to day and carried forward): Respiratory distress, present on admission. Active. - Possibly due to prev metabolic acidosis - Possibly worsened by subtle mid-anterior hypokinesis seen on echo, cardiology consulted, appreciate their recs - Oxygen as needed Diarrhea, not present on admission. Active. - Patient has received antibiotics since admission - C. Difficile toxin PCR negative Agitation and hospital delirium, not present at admission. Active. - Avoid any sedative medications - Redirect as much as possible - Ensure day/night cycle settings (blinds drawn during the day, lights off at night) - Restraints as needed - Haldol and Seroquel ?? Ulceration/skin breakdown, POA. Active. - S/p bilateral calf wound debridement - Skin culture pending therefore continue abx for now - Continue to monitor WBCs, fevers GI bleed,??present on admission and improving. - HgB stable for now therefore hold off on consulting GI ?? CHRONIC or RESOLVING PROBELMS ?? Prednisone therapy for inflammatory bowel disease and rheumatoid arthritis, present on admission - IV hydrocortisone stress dose of 25 mg every 8 hours ?? Type 2 diabetes, chronic, present on admission and active - Placed on subcu insulin protocol - Hemoglobin A1c of 9, will need to start medication on discharge - Good control CAMILLE with hyperkalemia, acute, present on admission. Resolving. -Nephrology consulted, appreciate their recommendations - Likely due to infection and a ATN on CKD Stage 3 - Remove dialysis catheter UTI, acute, present on admission. Resolving. - Negative UC - Broad-spectrum coverage with IV cefepime. Metabolic acidosis with respiratory partial compensation, not present on admission. Resolved. - ABG: pH 7.224, pCO2 19, HCO3 9 - Lactic acid normal - CT abdomen negative - Bicarb drip initially and then discontinued once bicarb stabilized Sepsis, acute, present on admission. Resolved. Atrial fibrillation with rapid ventrilcular response , present on admission. Resolved. Body jerking, present on admission. Resolved. VTE Prophylaxis: Anticoagulation contraindicated at this time due to DVTCONTRAINDICATIONS: Current GI bleed Code Status: Full code Disposition: Anticipate discharge to: To be determined (patient is too ill to forcast) within remains unknown (to ill to say) SUBJECTIVE Chief Complaint Patient presents with ??? Altered Mental Status ??? Shortness of Breath Patient's Update Patient is delirious and again is unable to engage in a meaningful way, however she appears more calmer and more well rested. Interval Update SVT in 120s occassionally Bicarb normalized, drip stopped Started feeds OBJECTIVE First recorded vitals: Temp: 36.3 ??C (97.3 ??F) - BP: 90/49 - Heart Rate: (!) 106 - Resp: 20 - SpO2: 100 % O2 Flow Rate (L/min): 4 L/min Most recent vital signs: Most recent vitals: Temp: 36.8 ??C (98.2 ??F) - BP: (!) 141/95 - Heart Rate: (!) 105 - Resp: (!) 22 - SpO2: 91 % O2 FlowRate (L/min): 2 L/min Physical Exam Constitutional: Appearance: She is well-developed. HENT: Head: Normocephalic and atraumatic. Eyes: General: No scleral icterus. Cardiovascular: Rate and Rhythm: Normal rate and regular rhythm. Heart sounds: No murmur heard. Pulmonary: Effort: Pulmonary effort is normal. No respiratory distress. Breath sounds: Normal breath sounds. No wheezing or rales. Abdominal: General: Bowel sounds are normal. Palpations: Abdomen is soft. Tenderness: There is no abdominal tenderness. There is no guarding. Musculoskeletal: Right lower le+ Pitting Edema present. Left lower le+ Pitting Edema present. Comments: Bilateral calf wound dressings present Skin: General: Skin is warm and dry. Findings: No rash. Neurological: Mental Status: She is alert. She is disoriented and confused. Psychiatric: Attention and Perception: She is inattentive. Speech: She is noncommunicative. Speech is slurred. Behavior: Behavior is uncooperative and slowed. Thought Content: Thought content normal. Judgment: Judgment is impulsive. Scheduled Hospital Meds apixaban, 5 mg, oral, BID cefepime, 1 g, intravenous, q24h dextrose 50% (D50W), 25 g, intravenous, Once hydrocortisone, 25 mg, oral, q8h insulin glargine, 5 Units, subcutaneous, BID miconazole, , Topical, BID pantoprazole, 40 mg, intravenous, q12h QUEtiapine, 25 mg, oral, Nightly REGULAR INSULIN, 0-6 Units, subcutaneous, q6h LABS & DIAGNOSTICS Hematology Results from last 7 days Lab Units 04/23/21 0527 04/22/21 0850 04/21/21 0502 WBC AUTO x10e3/uL 20.8* 25.7* 15.9* BANDS %, BLOOD MANUAL % -- 2 -- HEMOGLOBIN g/dL 8.0* 9.1* 8.2* HEMATOCRIT % 25.7* 31.0* 27.0* MCV fL 81 85 83 PLATELETS AUTO x10e3/uL 241 311 240 Chemistries Results from last 7 days Lab Units 04/23/21 0527 04/22/21 1616 04/22/21 0722 04/21/21 1043 04/21/21 1043 04/20/21 0522 04/20/21 0522 04/19/21 0511 04/19/21 0511 SODIUM mmol/L 144 146* 148* < > 147* < > 141 < > 140 POTASSIUM mmol/L 3.5 4.0 4.2 < > 3.7 < > 4.0 < > 4.1 CHLORIDE mmol/L 101 104 107 < > 111* < > 104 < > 103 CO2 mmol/L 18 11* 9* < > 17* < > 23 < > 23 BUN mg/dL 44.0* 45.0* 42.0* < > 33.0* < > 30.0* < > 28.0* CREATININE mg/dL 1.98* 2.09* 1.85* < > 1.54* < > 1.73* < > 1.62* GLUCOSE mg/dL 414* 303* 211* < > 172* < > 171* < > 204* CALCIUM, SERUM mg/dL 8.1* 8.6 9.1 < > 8.3* < > 8.7 < > 8.1* PHOSPHORUS mg/dL -- -- -- -- -- -- -- -- 3.9 AST U/L -- -- 29 -- 21 -- 22 -- -- ALT U/L -- -- 22 -- 17 -- 18 -- -- BILIRUBIN TOTAL mg/dL -- -- 0.3 -- 0.3 -- 0.3 -- -- ALBUMIN g/dL -- -- 3.2* -- 2.6* -- 2.7* < > 2.6* TOTAL PROTEIN g/dL -- -- 5.8* -- 5.0* -- 5.1* -- -- < > = values in this interval not displayed. Estimated Creatinine Clearance: 25 mL/min (A) (by C-G formula based on SCr of 1.98 mg/dL (H)). IMAGING Imaging results: ECHOCARDIOGRAM COMPLETE Version: 1 Study ID: [id number] [address] [address] Phone: ADULT ECHOCARDIOGRAM Name: SHIRIN AGUILLON Study Date: 04/23/2021, 7: 55 AM : 1945 BP: 147 / 80 mmHg Gender: Female Height: 60 in Age: 75 Years Weight: 187.393 lb Pt. Location: [facility]^2008^2008-10 BSA: 1.82 m? Ordering: JORDAN RAMSEY Referring: Leon Hospitalist Clinician: Carli Vasquez Reason For Study: Dyspnea History: Summary Statements This is a technically difficult study characterized by limited endocardial visualization. Next time recommend Definity echocontrast if possible. Normal sinus rhythm with occasional PAC's. Normal LV size and wall thickness. There is subtle mid-anterior hypokinesis, but normal wall motion otherwise. EF is 50-55%. Stage II diastolic dysfunction. Normal chamber sizes. Aortic sclerosis without stenosis. Otherwise no valvular abnormalities. Compared to prior study 09/2019, focal wall motion abnormality involving mid-anterior segment is newly described Procedure: A two-dimensional transthoracic echocardiogram with color flow and Doppler was performed. The patient was supine and unable to follow breathing commands. Comparison is made with the echocardiogram of 10/21/2019. The patient was in normal sinus rhythm during the exam. Left Ventricle: The left ventricle is normal in size. Left ventricular wall thickness is at the upper limits of normal. There is no ventricular septal defect visualized. The ejection fraction is estimated to be 50-55%. There is subtle mid-anterior hypokinesis. Data is somewhat conflicting, in that patient has E/A reversal and PV systolic flow predominance. Yet e/e' ratio is >15. Right Ventricle: The right ventricle is normal in size and function. Atria: Both atria are normal in size. There is no Doppler evidence for an interatrial shunt. Mitral Valve: The mitral valve leaflets are slightly calcified. The mitral valve chordae are thickened and/or calcified. There is mild mitral regurgitation. Aortic Valve: The aortic valve is not well visualized. The aortic valve is slightly calcified. The aortic valve opens well. No aortic regurgitation is present. Tricuspid Valve: The tricuspid valve is not well visualized, but is grossly normal. There is a trace or physiologic amount of tricuspid regurgitation. The right ventricular systolic pressure is estimated to be at least 37 mmHg based on an estimated right atrial pressure of 8 mm Hg. Pulmonic Valve: The pulmonic valve is not well visualized. Great Vessels: The aortic root is normal size. The ascending aorta is normal in size. The IVC is of normal diameter and collapses less than 50% with a sniff. This suggests a right atrial pressure of 8 mm Hg. Pericardium/ Pleura: There is no pericardial effusion. There is an anterior echo-free space consistent with a fat pad. There is a small right-sided pleural effusion. 2D and M-Mode Measurements and Calculations LVIDd: 4.1 cm AoV Openin.78 cm LVIDs: 2.5 cm LVOT diam: 1.73 cm IVSd: 1.00 cm Ao root diam: 3.4 cm LVPWd: 1.03 cm asc Aorta Diam: 3.2 cm LV bai. diameter/BSA (cm/m^2): 2.27 LV sys. diameter/BSA (cm/m^2): 1.38 FS: 39.3 % EPSS: 0.92 cm RVD1 (basal): 2.9 cm IVC diam: 2.02 cm TAPSE: 2.21 cm LA A4 area: 18.1 cm? RA area: 12.3 cm? LA A2 area: 17.3 cm? RA long axis: 4.6 cm LA length (vol): 5.6 cm RA vol: 28.4 ml LA vol: 47.2 ml RA : 15.6 ml/m? LA vol index: 26.0 ml/m? Doppler Measurements and Calculations Ao V2 max: 142.6 cm/sec LVOT Max Ron: 93.9 cm/sec Ao V2 mean: 93.7 cm/sec LV V1 max P.5 mmHg Ao V2 VTI: 26.7 cm LV V1 VTI: 18.5 cm Ao max P.1 mmHg Ao mean P.9 mmHg DILAN(I,D): 1.64 cm? DILAN(V,D): 1.55 cm? DILAN indexed to BSA (cm^2/m^2): 0.90 sev ratio: 0.69 MV E max ron: 98.1 cm/sec MV dec time: 0.28 sec MV A max ron: 121.0 cm/sec MV E/A: 0.81 Med Peak E' Ron: 5.3 cm/sec E/E' med: 18.4 Lat Peak E' Ron: 7.2 cm/sec E/E' lat: 13.6 E/e' average: 16.0 TR max ron: 267.7 cm/sec PA V2 max: 81.1 cm/sec TR max P.7 mmHg PA mean P.59 mmHg MR NVAARRO: 0.62 cm? Electronically signed by: Lucinda Bahena M.D. 04/23/2021, 3: 19 PM Electronically signed by: Redd Trejo MD 04/23/2021 3:38 PM Portions of today's documentation have been created with the assistance of voice recognition software. Therefore, it may contain anomalous punctuation, anomalous independent misrecognitions, word substitutions, insertions or omissions. Occasional wrong-word or phonetically similar substitutions may also occur, all due to the inherent limitations of voice recognition software. Attempts to correct the above have been made by Redd Trejo MD but it is recommended that the chart be read carefully to recognize, using context, where the substitutions may have occurred. Associated attestation - Jordan Ramsey MD - 04/23/2021 5:07 PM PDT Patient was seen and examined with Dr. Trejo on 04/23/21 . I participated in all aspects of clinical care including physical exam, and review of laboratory and imaging data. I agree with all documentation provided by the resident physician. Recap of plan: Continue current medical management, Discharge planning, Discuss with consultants, Follow clinically, and Follow labs Ricardo Johnson MD, MD - 04/22/2021 12:41 PM PDT NEPHROLOGY PROGRESS NOTE [facility] PATIENT NAME: Shirin Aguillon DATE OF : 1945 PRIMARY CARE PROVIDER: Rogelio Braga MD DATE OF ADMISSION: 04/15/2021 DATE OF SERVICE: 04/22/2021 SUBJECTIVE I saw and evaluated Lou on rounds. She has deteriorated overnight with worsened respiratory status. CXR suggested volume overload so she was diuresed with IV Lasix 60 mg. She made 1320 ml of urine overnight. She remain with altered mentation and is unable to provide history. This AM, she was noted to have severe acidosis with CO2 of 9. Subsequent ABG showed pH 7.224, pCO2 19 and pO2 126. She was started on HCO3 drip after her lactate returned as normal. Her heart rate has varied from around 100 torapid SVT around 170. MEDICATIONS Scheduled Medications: apixaban, 5 mg, oral, BID cefepime, 1 g, intravenous, q12h cloNIDine, 1 patch, transdermal, Weekly dextrose 50% (D50W), 25 g, intravenous, Once diltiazem CD, 240 mg, oral, Daily hydrocortisone sodium succinate, 25 mg, intravenous, q8h SUELLEN miconazole, , Topical, BID pantoprazole, 40 mg, intravenous, q12h QUEtiapine, 25 mg, oral, Nightly REGULAR INSULIN, 0-6 Units, subcutaneous, q6h Continuous Infusions: sodium bicarbonate infusion, 150 mL/hr, Last Rate: 150 mL/hr (04/22/21 1132) [Held by provider] sodium chloride, 100 mL/hr, Last Rate: Stopped (04/21/21 2300) PRN Medications: ??? acetaminophen ??? haloperidol lactate ??? labetalol ??? Insert peripheral IV AND lidocaine AND Maintain IV access AND Saline lock IV AND sodium chloride ??? Insert peripheral IV AND lidocaine AND Maintain IV access AND Saline lock IV AND sodium chloride ??? Insert peripheral IV AND lidocaine AND Maintain IV access AND Saline lock IV AND sodium chloride ??? metoprolol ??? naloxone ??? [COMPLETED] Prepare/Crossmatch RBC: 1 Units AND [COMPLETED] Transfuse RBC: 1 Units AND [COMPLETED] Nursing communication: Ensure provider has obtained Informed Consent for Blood Transfusion AND Vital Signs AND sodium chloride AND [COMPLETED] Nursing Communication: Transfusion Reaction Management ??? sodium chloride EXAMINATION Vital Signs: Temp: [36.1 ??C (97 ??F)-36.8 ??C (98.3 ??F)] 36.5 ??C (97.7 ??F) Heart Rate: [66-182] 99 Respirations: [18-36] 26 BP: (128-190)/(63-116) 128/63 Admission: Weight: 72.6 kg Intake and Output: Intake/Output Summary (Last 24 hours) at 04/22/2021 1241 Last data filed at 04/22/2021 0615 Gross per 24 hour Intake 2519 ml Output 1920 ml Net 599 ml General Appearance: Altered mentation Head: Normocephalic, appears visibly ill with labored breathing Lungs: Bilateral rhonchi noted anteriorly Heart: Regular rate and rhythm, S1, S2 normal, no murmur, no rub or gallop. Abdomen: Soft & non-tender, diminished BS Extremities: No edema LABORATORY AND IMAGING Hematology Results from last 7 days Lab Units 04/22/21 0850 04/21/21 0502 04/20/21 0522 WBC AUTO x10e3/uL 25.7* 15.9* 18.4* BANDS %, BLOOD MANUAL % 2 -- -- HEMOGLOBIN g/dL 9.1* 8.2* 7.9* HEMATOCRIT % 31.0* 27.0* 26.5* MCV fL 85 83 82 PLATELETS AUTO x10e3/uL 311 240 248 Coagulation Studies Results from last 7 days Lab Units 04/16/21 0330 INR 1.4* Chemistries Results from last 7 days Lab Units 04/22/21 0722 04/21/21 1043 04/20/21 0522 04/19/21 0511 04/19/21 0511 04/16/21 0842 04/16/21 0635 04/16/21 0330 04/15/21 2324 SODIUM mmol/L 148* 147* 141 < > 140 < > -- -- 130* POTASSIUM mmol/L 4.2 3.7 4.0 < > 4.1 < > 6.0* < > 6.8* CHLORIDE mmol/L 107 111* 104 < > 103 < > -- -- 98 CO2 mmol/L 9* 17* 23 < > 23 < > -- -- 14* BUN mg/dL 42.0* 33.0* 30.0* < > 28.0* < > -- -- 131.0* CREATININE mg/dL 1.85* 1.54* 1.73* < > 1.62* < > -- -- 4.84* CALCIUM, SERUM mg/dL 9.1 8.3* 8.7 < > 8.1* < > -- -- 8.2* MAGNESIUM mg/dL -- -- -- -- -- -- -- -- 2.2 PHOSPHORUS mg/dL -- -- -- -- 3.9 -- 9.9* -- -- AST U/L 29 21 22 -- -- < > -- -- 22 ALT U/L 22 17 18 -- -- < > -- -- 26 BILIRUBIN TOTAL mg/dL 0.3 0.3 0.3 -- -- < > -- -- 0.3 ALBUMIN g/dL 3.2* 2.6* 2.7* < > 2.6* < > -- -- 3.2* TOTAL PROTEIN g/dL 5.8* 5.0* 5.1* -- -- < > -- -- 5.6* < > = values in this interval not displayed. Estimated Creatinine Clearance: 26.2 mL/min (A) (by C-G formula based on SCr of 1.85 mg/dL (H)). Urinalysis Results from last 7 days Lab Units 04/17/21 1251 04/16/21 0038 UROBILINOGEN, URINALYSIS EU/dL 0.2 (Normal) 0.2 (Normal) RBC, URINALYSIS /HPF 0-2 0-2 WBC, URINALYSIS /HPF >50 Packed (TNTC)* >50 Packed (TNTC)* Cardiac Enzymes Results from last 7 days Lab Units 04/22/21 0850 PROBNP pg/mL 43,003* Lipid Profile ASSESSMENT AND PLAN Patient Active Problem List Diagnosis ??? Seronegative rheumatoid arthritis of multiple sites (CMS/HCC) ??? Osteoarthropathy ??? Type II diabetes mellitus with complication (CMS/HCC) ??? Renal insufficiency ??? Grief ??? Psoriatic arthritis (CMS/HCC) ??? Abdominal pain ??? Functional diarrhea ??? Nausea and vomiting ??? Excessive body weight loss ??? Pressure injury of skin of right calf 1. CAMILLE due to infection and ATN on CKD stage 3:??Azotemia worse today likely related to her worsening illness and diuresis. No need for dialysis at this time unless her acidemia becomes resistant. Check labs later today. Monitor urine output via [place]. 2. Anion gap metabolic acidosis: Interestingly lactate is normal which would be most likely cause. [place] not think this is from her CAMILLE as the level if acidosis is disproportionate. No obvious drugs arepresent to cause this. Check serum osmolality and qualitative ketones. Start IVF with HCO3 and monitor labs later today. 3. HTN: Maintain IV hydralazine until clonidine patch kicks in. Could use diltiazem drip once IV access improved. 4. Volume:??Continue IVF. 5. Anemia: Hgb??up at 9.1.??Ferritin low at 99 and iron sat low at 11%.?? 6. Electrolytes: Hyperkalemia resolved. Has mild hypernatremia. Will give hypotonic IV HCO3. 7. Access: Left??internal jugular??temp line removed yesterday. OK for PICC for IV access. ?? Signed, iRcardo Austin MD 04/22/2021 12:41 PM Pager: [phone] Redd Campbell MD - 04/22/2021 6:[address] [facility]: INPATIENT PROGRESS NOTE Patient Name: Shirin Aguillon Date of : 1945 Age: 75 y.o. Code Status: Full Code Primary Care Physician: Rogelio Braga MD Admitting Provider: Ana Maria Narvaez MD Attending Provider: Jordan Ramsey MD Admit Date: 04/15/2021 Date of Service: 04/22/2021 Hospital Day: 6 ASSESSMENT & PLAN Shirin Aguillon is a 75 y.o. female anticoagulated with Eliquis??with a hx notable for type II diabetes mellitus, hypertension, hyperlipidemia, kidney dysfunction, and rheumatoid arthritis??who presents to the ED??for evaluation of altered mental status and found to be in CAMILLE with hyperkalemia. TODAY'S PLAN: - NG tube placement -> oral steroids, cardiac meds - CT abdomen - Possible LP - ABG - BiPAP if needed ACTIVELY MANAGED PROBLEMS (problems are generally active day to day and carried forward): Metabolic acidosis with respiratory partial compensation, not present on admission. Active. - ABG: pH 7.224, pCO2 19, HCO3 9 - Bicarb drip started - Lactic acid normal - CT abdomen pending Diarrhea, not present on admission. Active. -Patient has received antibiotics since admission -C. Difficile toxin PCR ordered Agitation and hospital delirium, not present at admission. Active. - Avoid any sedative medications other than Haldol - Redirect as much as possible - Ensure day/night cycle settings (blinds drawn during the day, lights off at night) - Restraints as needed ?? Ulceration/skin breakdown, POA. Active. - S/p bilateral calf wound debridement - Skin culture pending therefore continue abx for now - Continue to monitor WBCs, fevers GI bleed,??present on admission and improving. - HgB stable for now therefore hold off on consulting GI ?? CHRONIC or RESOLVING PROBELMS ?? Prednisone therapy for inflammatory bowel disease and rheumatoid arthritis, present on admission - IV hydrocortisone stress dose of 25 mg every 8 hours ?? Type 2 diabetes, chronic, present on admission and active - Placed on subcu insulin protocol - Hemoglobin A1c of 9, will need to start medication on discharge - Good control CAMILLE with hyperkalemia, acute, present on admission. Resolving. -Nephrology consulted, appreciate their recommendations - Likely due to infection and a ATN on CKD Stage 3 - Remove dialysis catheter UTI, acute, present on admission. Resolving. - Negative UC - Broad-spectrum coverage with IV cefepime. Sepsis, acute, present on admission. Resolved. Atrial fibrillation with rapid ventrilcular response , present on admission. Resolved. Body jerking, present on admission. Resolved. VTE Prophylaxis: Anticoagulation contraindicated at this time due to DVTCONTRAINDICATIONS: Current GI bleed Code Status: Full code Disposition: Anticipate discharge to: To be determined (patient is too ill to forcast) within remains unknown (to ill to say) SUBJECTIVE Chief Complaint Patient presents with ??? Altered Mental Status ??? Shortness of Breath Patient's Update Patient is delirious and again is unable to engage in a meaningful way. Interval Update SVT HR 170s-180s, responsive to metoprolol pushes Lasix 60mg overnight for resp distress OBJECTIVE First recorded vitals: Temp: 36.3 ??C (97.3 ??F) - BP: 90/49 - Heart Rate: (!) 106 - Respirations: 20 - SpO2: 100 % O2 FlowRate (L/min): 4 L/min Most recent vital signs: Most recent vitals: Temp: 36.4 ??C (97.6 ??F) - BP: 110/54 - Heart Rate: 100 - Respirations: 24 - SpO2: 95 % O2 Flow Rate (L/min): 6 L/min Physical Exam Constitutional: Appearance: She is well-developed. HENT: Head: Normocephalic and atraumatic. Eyes: General: No scleral icterus. Cardiovascular: Rate and Rhythm: Normal rate and regular rhythm. Heart sounds: No murmur heard. Pulmonary: Effort: Pulmonary effort is normal. No respiratory distress. Breath sounds: Normal breath sounds. No wheezing or rales. Abdominal: General: Bowel sounds are normal. Palpations: Abdomen is soft. Tenderness: There is no abdominal tenderness. There is no guarding. Musculoskeletal: Right lower le+ Pitting Edema present. Left lower le+ Pitting Edema present. Comments: Bilateral calf wound dressings present Skin: General: Skin is warm and dry. Findings: No rash. Neurological: Mental Status: She is alert. She is disoriented and confused. Psychiatric: Attention and Perception: She is inattentive. Speech: She is noncommunicative. Speech is slurred. Behavior: Behavior is uncooperative and slowed. Thought Content: Thought content normal. Judgment: Judgment is impulsive. Scheduled Hospital Meds apixaban, 5 mg, oral, BID [START ON 04/23/2021] cefepime, 1 g, intravenous, q24h cloNIDine, 1 patch, transdermal, Weekly dextrose 50% (D50W), 25 g, intravenous, Once diltiazem CD, 240 mg, oral, Daily hydrocortisone sodium succinate, 25 mg, intravenous, q8h SUELLEN miconazole, , Topical, BID pantoprazole, 40 mg, intravenous, q12h QUEtiapine, 25 mg, oral, Nightly REGULAR INSULIN, 0-6 Units, subcutaneous, q6h LABS & DIAGNOSTICS Hematology Results from last 7 days Lab Units 04/22/21 0850 04/21/21 0502 04/20/21 0522 WBC AUTO x10e3/uL 25.7* 15.9* 18.4* BANDS %, BLOOD MANUAL % 2 -- -- HEMOGLOBIN g/dL 9.1* 8.2* 7.9* HEMATOCRIT % 31.0* 27.0* 26.5* MCV fL 85 83 82 PLATELETS AUTO x10e3/uL 311 240 248 Chemistries Results from last 7 days Lab Units 04/22/21 0722 04/21/21 1043 04/20/21 0522 04/19/21 0511 04/19/21 0511 04/16/21 0842 04/16/21 0635 04/16/21 0330 04/15/21 2324 SODIUM mmol/L 148* 147* 141 < > 140 < > -- -- 130* POTASSIUM mmol/L 4.2 3.7 4.0 < > 4.1 < > 6.0* < > 6.8* CHLORIDE mmol/L 107 111* 104 < > 103 < > -- -- 98 CO2 mmol/L 9* 17* 23 < > 23 < > -- -- 14* BUN mg/dL 42.0* 33.0* 30.0* < > 28.0* < > -- -- 131.0* CREATININE mg/dL 1.85* 1.54* 1.73* < > 1.62* < > -- -- 4.84* GLUCOSE mg/dL 211* 172* 171* < > 204* < > -- -- 107* CALCIUM, SERUM mg/dL 9.1 8.3* 8.7 < > 8.1* < > -- -- 8.2* MAGNESIUM mg/dL -- -- -- -- -- -- -- -- 2.2 PHOSPHORUS mg/dL -- -- -- -- 3.9 -- 9.9* -- -- AST U/L 29 21 22 -- -- < > -- -- 22 ALT U/L 22 17 18 -- -- < > -- -- 26 BILIRUBIN TOTAL mg/dL 0.3 0.3 0.3 -- -- < > -- -- 0.3 ALBUMIN g/dL 3.2* 2.6* 2.7* < > 2.6* < > -- -- 3.2* TOTAL PROTEIN g/dL 5.8* 5.0* 5.1* -- -- < > -- -- 5.6* < > = values in this interval not displayed. Estimated Creatinine Clearance: 26.2 mL/min (A) (by C-G formula based on SCr of 1.85 mg/dL (H)). IMAGING Imaging results: XR CHEST [address] [place]. [address] PATIENT NAME: SHIRIN AGUILLON : 1945 GENDER: F EXAM DATE: 04/22/2021 15:54 ORDERED FROM: [facility] ORDERING PHYSICIAN: JORDAN RAMSEY CC: -- - - - CONTRAST: READING STATION ID: [id number] mGy: PROCEDURE: XR CHEST 1 VIEW INDICATIONS: central line placement TECHNIQUE: One view of the chest was acquired. COMPARISON: [facility], , XR CHEST 1 VIEW, 04/22/2021, 10:34. FINDINGS: Surgical changes and devices: Central venous catheter projects over the distal SVC via a left IJ approach. Feeding tube projects across the GE junction with nonvisualization of the distal tip. Cholecystectomy clips. Lungs and pleura: Bilateral perihilar opacities are stable compared to April 22, 2021 at 10:34 a.m.No pleural effusions or pneumothorax. Mediastinum: Mediastinal contours appear normal. Heart size is normal. Bones and chest wall: No suspicious bony lesions. Overlying soft tissues appear unremarkable. IMPRESSION: Tip of central venous catheter projects over the SVC. Reviewed by: Sindi Rahman MD, PhD on 04/22/2021 at 16:30 Approved by: Sindi Rahman MD, PhD on 04/22/2021 at 16:32 CT ABDOMEN [place]. [address] PATIENT NAME: SHIRIN AGUILLON : 1945 GENDER: F EXAM DATE: 04/22/2021 13:19 ORDERED FROM: [facility] ORDERING PHYSICIAN: JORDAN RAMSEY CC: REDD TREJO -- - - - CONTRAST: READING STATION ID: [id number] mGy: PROCEDURE: CT ABDOMEN PELVIS WITHOUT CONTRAST INDICATIONS: Abdominal abscess/infection suspected TECHNIQUE: After the administration of oral contrast, 5 mm thick sections acquired from the diaphragms to the symphysis. 5 mm coronal and sagittal reformats were performed. For radiation dose reduction, the following was used: automated exposure control, adjustment of mA and/or kV according to patient size. COMPARISON: [facility], CT, CT ABDOMEN PELVIS WITHOUT CONTRAST, 02/15/2018, 12:18. FINDINGS: Image quality: Reduced by persistent patient motion during image acquisition.. ABDOMEN: Lung bases: Lung bases are abnormal with basilar atelectasis and moderate bilateral pleural effusions.. Heart size is normal. An esophagogastric tube crosses into the gastric lumen. Oral contrast was administered. Solid organs: Liver is normal in size. Gallbladder appears to have been resected. Pancreas is normal in size. Spleen is normal in size. No adrenal nodules. Both kidneys are normal in size, without hydronephrosis or nephrolithiasis. Peritoneum and bowel: Bowel loops demonstrate normal wall thickness and caliber. There is a small amount of perihepatic free fluid and no free air. Nodes and vessels: No retroperitoneal or mesenteric adenopathy by size criteria. Aorta and inferior vena cava are normal in size. Miscellaneous: No ventral hernias. Mild body wall anasarca. PELVIS: Genitourinary: Bladder wall thickness is normal but quality of visualization is quite limited by Howard catheter draining the bladder lumen. Miscellaneous: No inguinal hernias or adenopathy. Mild body wall anasarca. Bones: No suspicious bony lesions. No vertebral body compression fractures. Prior lumbosacral spine fusion surgery. This produces metal artifact reducing quality of visualization in that region of the lumbosacral spine. IMPRESSION: Bilateral moderate pleural effusions with associated atelectasis at each lung base posteriorly. No definite pneumonia found. Within the abdomen and pelvis quality of visualization is somewhat limited by patient motion during image acquisition but no definite infection or evidence of neoplasm is found. Oral contrast was utilized and transits at a normal pace through the small bowel andinto the colon lumen. Postsurgical changes of spine fusion produces metal artifact mildly degradingquality of visualization in that localized area, but no inflammation is suspected. Mild body wall anasarca. Reviewed by: Raymond Calderón M.D. on 04/22/2021 at 15:15 Approved by: Raymond Calderón M.D. on 04/22/2021 at 15:18 [place]. [address] PATIENT NAME: SHIRIN AGUILLON : 1945 GENDER: F EXAM DATE: 04/22/2021 13:19 ORDERED FROM: [facility] ORDERING PHYSICIAN: JORDAN RAMSEY CC: -- - - - CONTRAST: READING STATION ID: [id number] mGy: PROCEDURE: CT HEAD WITHOUT CONTRAST INDICATIONS: Mental status change, unknown cause TECHNIQUE: Noncontrast 4.5 mm thick angled axial sections acquired from the foramen magnum to the vertex, with coronal and sagittal reformats. For radiation dose reduction, the following was used: automated exposure control, adjustment of mA and/or kV according to patient size. COMPARISON: None. FINDINGS: Image quality: Fair, motion artifact. CSF spaces: Basal cisterns are patent. No extra-axial fluid collections. Ventricles are normal insize and shape. Brain: No midline shift. No intracranial masses or hemorrhage. No area of hypodensity in a large vascular distribution to suggest acute infarction. Periventricular hypodensity consistent with chronic microvascular ischemic change. Age-related parenchymal loss. Skull and face: Calvarium and visualized facial bones are intact, without suspicious lesions. Sinuses: Visualized sinuses and mastoids are clear. IMPRESSION: No acute intracranial abnormality. Reviewed by: Daniel Rubio M.D. on 04/22/2021 at 14:26 Approved by: Daniel Rubio M.D. on 04/22/2021 at 14:28 XR [address]ST [address] [place]. [address] PATIENT NAME: SHIRIN AGUILLON : 1945 GENDER: F EXAM DATE: 04/22/2021 10:34 ORDERED FROM: [facility] ORDERING PHYSICIAN: JORDAN RAMSEY CC: -- - - - CONTRAST: READING STATION ID: [id number] mGy: PROCEDURE: XR CHEST 1 VIEW INDICATIONS: dubhoff placement TECHNIQUE: One view of the chest was acquired. COMPARISON: [facility], , XR CHEST 1 VIEW, 04/21/2021, 23:26. FINDINGS: Surgical changes and devices: Dobbhoff feeding tube is seen with the tip projecting in the body of the stomach. Partially visualized spinal fixation hardware. Lungs and pleura: Low lung volumes. Cannot exclude small bilateral pleural effusions with adjacentatelectasis. There are bilateral perihilar opacities which are unchanged. Mediastinum: Cardiac silhouette and mediastinal contours are stable. Bones and chest wall: No suspicious bony lesions. Overlying soft tissues appear unremarkable. IMPRESSION: Dobbhoff tube with the tip projecting in the body of the stomach. Reviewed by: Jorge Wren M.D. on 04/22/2021 at 11:06 Approved by: Jorge Wren M.D. on 04/22/2021 at 11:21 XR [address]ST [address] [place]. [address] PATIENT NAME: SHIRIN AGUILLON : 1945 GENDER: F EXAM DATE: 04/21/2021 23:26 ORDERED FROM: [facility] ORDERING PHYSICIAN: ANA MARIA NARVAEZ CC: JORDAN RAMSEY -- - - - CONTRAST: READING STATION ID: [id number] mGy: PROCEDURE: XR CHEST 1 VIEW INDICATIONS: chest pain TECHNIQUE: One view of the chest was acquired. COMPARISON: [facility], , XR CHEST 1 VIEW, 04/20/2021, 18:31. FINDINGS: Surgical changes and devices: None. Lungs and pleura: There is cephalization of pulmonary vasculature and bilateral perihilar opacification concerning for pulmonary edema/CHF. Mediastinum: Mediastinal contours appear normal. Heart size is normal. Bones and chest wall: No suspicious bony lesions. Overlying soft tissues appear unremarkable. IMPRESSION: Radiographic findings concerning for pulmonary edema/CHF. Reviewed by: Sindi Rahman MD, PhD on 04/22/2021 at 9:13 Approved by: Sindi Rahman MD, PhD on 04/22/2021 at 9:14 Electronically signed by: Redd Trejo MD 04/22/2021 5:04 PM Portions of today's documentation have been created with the assistance of voice recognition software. Therefore, it may contain anomalous punctuation, anomalous independent misrecognitions, word substitutions, insertions or omissions. Occasional wrong-word or phonetically similar substitutions may also occur, all due to the inherent limitations of voice recognition software. Attempts to correct the above have been made by Redd Trejo MD but it is recommended that the chart be read carefully to recognize, using context, where the substitutions may have occurred. Associated attestation - Jordan Ramsey MD - 04/23/2021 7:21 AM PDT Patient was seen and examined with Dr. Trejo on 04/22/2021 . I participated in all aspects of clinical care including physical exam, and review of laboratory and imaging data. I agree with all documentation provided by the resident physician. Recap of plan: Continue current medical management, Discharge planning, Discuss with consultants, Follow clinically, and Follow labs Gap metabolic acidosis with ketones. Discuss with nephrology and will treat with bibarb drip as wellas place NGT and begin enteral feeds. Diarrhea. Rule out CDT. 3. Metabolic encephalopathy Jordan Pryor, Karen Chapman RN - 04/21/2021 3:47 PM PDT Images from the original note were not included. [facility] Inpatient Wound Care Pt Name/Age/: Shirin Aguillon 75 y.o. 1945 Med. Record #: [id number] Date of Admission: 04/15/2021 Reason for Admission: Pressure injury of skin of right calf Follow up visit for inpatient wound consult r/t bilateral calf wounds dressing change Shirin Aguillon is a 75 y.o. female patient resting in bed. Patient has a past medical history ofAbdominal pain, Arthritis, Arthritis, rheumatoid (CMS/HCC), Chronic diarrhea, Delayed emergence fromgeneral anesthesia, Diabetes (CMS/HCC), Disorder, Gallbladder disease, H/O recurrent pneumonia, Hyper lipidemia, Hypertension, Kidney disease, Low back pain (ongoing), Migraine headache, Neuropathy, PONV (postoperative nausea and vomiting), Skin cancer, Thyroid disease, Tubular adenoma, UTI (urinary tract infection), and Weight loss, non-intentional. Wound 1-- Location: Right calf, dorsal Description: Pressure ulceration Dimensions: 11.0cm x 5.5cm x 0.5cm Base: increasing adherent yellow slough, red tissue Edges: irregular Drainage: scant serosanguinous Odor: none Periwound Skin: pale, fragile, blanchable erythema Pain: unknown Capillary refill-- slow Photo: Wound 2-- Location: Left calf, dorsal Description: Pressure ulceration Dimensions: 7.8cm x 5.8cm x 0.6cm Base: increased adherent yellow slough, red tissue, moist Edges: irregular Drainage: scant serosanguinous Odor: none Periwound Skin: pale, fragile, blanchable erythema Pain: unknown Capillary refill-- slow Photo: None able to be taken this visit Wound 4-- Location: Left chest Description: Ulceration of unknown etiology Dimensions: 1.8cm x 1.0cm x unknown Base: reduced adherent yellow/brown eschar, soft slough to base Edges: irregular Drainage: none Odor: none Periwound Skin: pale, fragile, reduced bruising Pain: unknown Capillary refill-- slow Photo: Wound Care: R and L calf: Cleansed with NS, patted dry, applied zinc paste to david edges of wounds. Applied medihoney to wound bases, covered with double layer of Vaseline gauze, covered with gauze bolsters, kerlix, tape. All other wounds: Cleansed with NS, patted dry, applied skin prep to david edges of wounds. Apply double layer of xeroform gauze to wound base, cover with adhesive foam or island dressing. Arm xeroform secured with kerlix and light coban. Additional Note: Reduced crusted, dried brown eschar and increase in adherent white slough. The wounds are moist now,which will help significantly to move towards healthy wound healing. Electronically signed by: Karen Pryor RN 04/21/2021 3:47 PM Ricardo Tucker MD - 04/21/2021 12:34 PM PDT NEPHROLOGY PROGRESS NOTE [facility] PATIENT NAME: Shirin Aguillon DATE OF : 1945 PRIMARY CARE PROVIDER: Rogelio Braga MD DATE OF ADMISSION: 04/15/2021 DATE OF SERVICE: 04/21/2021 SUBJECTIVE I saw and evaluated Lou on rounds. She remained confused and was somnolent when I saw her. Urine output is stable on NS at 100 ml/hr. Creatinine is down to 1.54 but Na up to 147. Lytes ok with mild acidosis. MEDICATIONS Scheduled Medications: apixaban, 5 mg, oral, BID cefepime, 1 g, intravenous, q12h cloNIDine, 1 patch, transdermal, Weekly dextrose 50% (D50W), 25 g, intravenous, Once diltiazem CD, 240 mg, oral, Daily hydrocortisone sodium succinate, 25 mg, intravenous, q8h SUELLEN miconazole, , Topical, BID pantoprazole, 40 mg, intravenous, q12h QUEtiapine, 25 mg, oral, Nightly REGULAR INSULIN, 0-6 Units, subcutaneous, q6h Continuous Infusions: sodium chloride, 100 mL/hr, Last Rate: 100 mL/hr (04/21/21 0957) PRN Medications: ??? acetaminophen ??? haloperidol lactate ??? hydrALAZINE ??? HYDROcodone-acetaminophen ??? Insert peripheral IV AND lidocaine AND Maintain IV access AND Saline lock IV AND sodium chloride ??? Insert peripheral IV AND lidocaine AND Maintain IV access AND Saline lock IV AND sodium chloride ??? Insert peripheral IV AND lidocaine AND Maintain IV access AND Saline lock IV AND sodium chloride ??? naloxone ??? [COMPLETED] Prepare/Crossmatch RBC: 1 Units AND [COMPLETED] Transfuse RBC: 1 Units AND [COMPLETED] Nursing communication: Ensure provider has obtained Informed Consent for Blood Transfusion AND Vital Signs AND sodium chloride AND [COMPLETED] Nursing Communication: Transfusion Reaction Management ??? sodium chloride EXAMINATION Vital Signs: Temp: [36.1 ??C (97 ??F)-36.9 ??C (98.4 ??F)] 36.4 ??C (97.5 ??F) Heart Rate: [60-106] 106 Resp: [17-35] 17 BP: (174-201)/(78-99) 174/85 Admission: Weight: 72.6 kg Intake and Output: Intake/Output Summary (Last 24 hours) at 04/21/2021 1234 Last data filed at 04/21/2021 0415 Gross per 24 hour Intake ??? Output 850 ml Net -850 ml General Appearance: Somnolent but comfortable Head: Normocephalic, no obvious abnormality, atraumatic. LABORATORY AND IMAGING Hematology Results from last 7 days Lab Units 04/21/21 0502 04/20/21 0522 04/19/21 0511 WBC AUTO x10e3/uL 15.9* 18.4* 15.2* HEMOGLOBIN g/dL 8.2* 7.9* 7.1* HEMATOCRIT % 27.0* 26.5* 23.2* MCV fL 83 82 80* PLATELETS AUTO x10e3/uL 240 248 227 Coagulation Studies Results from last 7 days Lab Units 04/16/21 0330 INR 1.4* Chemistries Results from last 7 days Lab Units 04/21/21 1043 04/20/21 0522 04/19/21 0511 04/17/21 0443 04/17/21 0443 04/16/21 0842 04/16/21 0635 04/16/21 0330 04/15/21 2324 SODIUM mmol/L 147* 141 140 < > 139 -- -- < > 130* POTASSIUM mmol/L 3.7 4.0 4.1 < > 4.6 < > 6.0* < > 6.8* CHLORIDE mmol/L 111* 104 103 < > 103 -- -- < > 98 CO2 mmol/L 17* 23 23 < > 26 -- -- < > 14* BUN mg/dL 33.0* 30.0* 28.0* < > 62.0* -- -- < > 131.0* CREATININE mg/dL 1.54* 1.73* 1.62* < > 2.58* -- -- < > 4.84* CALCIUM, SERUM mg/dL 8.3* 8.7 8.1* < > 7.2* -- -- < > 8.2* MAGNESIUM mg/dL -- -- -- -- -- -- -- -- 2.2 PHOSPHORUS mg/dL -- -- 3.9 -- -- -- 9.9* -- -- AST U/L -- -- 24 -- -- < > 22 ALT U/L -- -- 19 -- -- < > 26 BILIRUBIN TOTAL mg/dL 0.3 0.3 -- -- 0.2 -- -- < > 0.3 ALBUMIN g/dL 2.6* 2.7* 2.6* < > 2.8* -- -- < > 3.2* TOTAL PROTEIN g/dL 5.0* 5.1* -- -- 4.2* -- -- < > 5.6* < > = values in this interval not displayed. Estimated Creatinine Clearance: 31.3 mL/min (A) (by C-G formula based on SCr of 1.54 mg/dL (H)). Urinalysis Results from last 7 days Lab Units 04/17/21 1251 04/16/21 0038 UROBILINOGEN, URINALYSIS EU/dL 0.2 (Normal) 0.2 (Normal) RBC, URINALYSIS /HPF 0-2 0-2 WBC, URINALYSIS /HPF >50 Packed (TNTC)* >50 Packed (TNTC)* Cardiac Enzymes No lab exists for component: TROPONINI Lipid Profile ASSESSMENT AND PLAN Patient Active Problem List Diagnosis ??? Seronegative rheumatoid arthritis of multiple sites (CMS/HCC) ??? Osteoarthropathy ??? Type II diabetes mellitus with complication (CMS/HCC) ??? Renal insufficiency ??? Grief ??? Psoriatic arthritis (CMS/HCC) ??? Abdominal pain ??? Functional diarrhea ??? Nausea and vomiting ??? Excessive body weight loss ??? Pressure injury of skin of right calf 1. CAMILLE due to infection and ATN on CKD stage 3:??Azotemia is better today. Given lack of oral intake, would continue IVF. May consider switching to LR. May remove dialysis line. 2. HTN:??Remains high. Clonidine patch placed but this will take time for efficacy. 3. Volume:??Continue IVF. 4. Anemia: Hgb??up at 8.2.??Ferritin low at 99 and iron sat low at 11%.?? 5. Electrolytes: Hyperkalemia resolved. Has mild hypernatremia. Could consider giving LR or 1/2 NS. 6. Access: Left??internal jugular??temp line.?May remove now. ?? Signed, Ricardo Austin MD 04/21/2021 12:34 PM Pager: [phone] Redd Su M - 04/21/2021 10:13 AM PDT Patient A and O x 0, occasionally opens eyes but not responding to verbal or tactile cueing. Unable to assess for PT at this time. Will try again when patient is more alert and able to participate. Louise Dunn CCC-AU PAIR - 04/21/2021 8:26 AM PDT Pt status unchanged, not following commands or participative per DIRECTOR REGULATORY AFFAIRS. Will sign off at this time. Thank you for the opportunity to participate in this patient's care. Please reconsult when pt able to maintain alertness, follow commands, and participate in skilled evaluation. Redd Trejo MD - 04/21/2021 6:[address] [facility]: INPATIENT PROGRESS NOTE Patient Name: Shirin Aguillon Date of : 1945 Age: 75 y.o. Code Status: Full Code Primary Care Physician: Rogelio Braga MD Admitting Provider: Ana Maria Narvaez MD Attending Provider: Jordan Ramsey MD Admit Date: 04/15/2021 Date of Service: 04/21/2021 Hospital Day: 5 ASSESSMENT & PLAN Shirin Aguillon is a 75 y.o. female anticoagulated with Eliquis??with a hx notable for type II diabetes mellitus, hypertension, hyperlipidemia, kidney dysfunction, and rheumatoid arthritis??who presents to the ED??for evaluation of altered mental status and found to be in CAMILLE with hyperkalemia. TODAY'S PLAN: - Remove dialysis line - Start clonidine patch for HTN - Haldol at nighttime - PT ACTIVELY MANAGED PROBLEMS (problems are generally active day to day and carried forward): Agitation and hospital delirium, not present at admission. Active. - Avoid any sedative medications other than Haldol - Redirect as much as possible - Ensure day/night cycle settings (blinds drawn during the day, lights off at night) - Restraints as needed ?? Ulceration/skin breakdown, POA. Active. - S/p bilateral calf wound debridement - Skin culture pending therefore continue abx for now - Continue to monitor WBCs, fevers GI bleed,??present on admission and improving. - HgB stable for now therefore hold off on consulting GI ?? CHRONIC or RESOLVING PROBELMS ?? Prednisone therapy for inflammatory bowel disease and rheumatoid arthritis, present on admission - IV hydrocortisone stress dose of 25 mg every 8 hours ?? Type 2 diabetes, chronic, present on admission and active - Placed on subcu insulin protocol - Hemoglobin A1c of 9, will need to start medication on discharge - Good control CAMILLE with hyperkalemia, acute, present on admission. Resolving. -Nephrology consulted, appreciate their recommendations - Likely due to infection and a ATN on CKD Stage 3 - Remove dialysis catheter UTI, acute, present on admission. Resolving. - Negative UC - Broad-spectrum coverage with IV cefepime. Sepsis, acute, present on admission. Resolved. Atrial fibrillation with rapid ventrilcular response , present on admission. Resolved. Body jerking, present on admission. Resolved. VTE Prophylaxis: Anticoagulation contraindicated at this time due to DVTCONTRAINDICATIONS: Current GI bleed Code Status: Full code Disposition: Anticipate discharge to: To be determined (patient is too ill to forcast) within remains unknown (to ill to say) SUBJECTIVE Chief Complaint Patient presents with ??? Altered Mental Status ??? Shortness of Breath Patient's Update Patient is delirious and again is unable to engage in a meaningful way. Interval Update HTN continues No NG tube placed due to agitation OBJECTIVE First recorded vitals: Temp: 36.3 ??C (97.3 ??F) - BP: 90/49 - Heart Rate: (!) 106 - Resp: 20 - SpO2: 100 % O2 Flow Rate (L/min): 4 L/min Most recent vital signs: Most recent vitals: Temp: 36.4 ??C (97.5 ??F) - BP: (!) 174/85 - Heart Rate: (!) 106 - Resp: 17 - SpO2: 100 % O2 Flow Rate (L/min): 6 L/min Physical Exam Constitutional: Appearance: She is well-developed. HENT: Head: Normocephalic and atraumatic. Eyes: General: No scleral icterus. Cardiovascular: Rate and Rhythm: Normal rate and regular rhythm. Heart sounds: No murmur heard. Pulmonary: Effort: Pulmonary effort is normal. No respiratory distress. Breath sounds: Normal breath sounds. No wheezing or rales. Abdominal: General: Bowel sounds are normal. Palpations: Abdomen is soft. Tenderness: There is no abdominal tenderness. There is no guarding. Musculoskeletal: Right lower le+ Pitting Edema present. Left lower le+ Pitting Edema present. Comments: Bilateral calf wound dressings present Skin: General: Skin is warm and dry. Findings: No rash. Neurological: Mental Status: She is alert. She is disoriented and confused. Psychiatric: Attention and Perception: She is inattentive. Speech: She is noncommunicative. Speech is slurred. Behavior: Behavior is uncooperative and slowed. Thought Content: Thought content normal. Judgment: Judgment is impulsive. Scheduled Hospital Meds apixaban, 5 mg, oral, BID cefepime, 1 g, intravenous, q12h cloNIDine, 1 patch, transdermal, Weekly dextrose 50% (D50W), 25 g, intravenous, Once diltiazem CD, 240 mg, oral, Daily hydrocortisone sodium succinate, 25 mg, intravenous, q8h SUELLEN miconazole, , Topical, BID pantoprazole, 40 mg, intravenous, q12h QUEtiapine, 25 mg, oral, Nightly REGULAR INSULIN, 0-6 Units, subcutaneous, q6h LABS & DIAGNOSTICS Hematology Results from last 7 days Lab Units 04/21/21 0502 04/20/21 0522 04/19/21 0511 WBC AUTO x10e3/uL 15.9* 18.4* 15.2* HEMOGLOBIN g/dL 8.2* 7.9* 7.1* HEMATOCRIT % 27.0* 26.5* 23.2* MCV fL 83 82 80* PLATELETS AUTO x10e3/uL 240 248 227 Chemistries Results from last 7 days Lab Units 04/21/21 1043 04/20/21 0522 04/19/21 0511 04/17/21 0443 04/17/21 0443 04/16/21 0842 04/16/21 0635 04/16/21 0330 04/15/21 2324 SODIUM mmol/L 147* 141 140 < > 139 -- -- < > 130* POTASSIUM mmol/L 3.7 4.0 4.1 < > 4.6 < > 6.0* < > 6.8* CHLORIDE mmol/L 111* 104 103 < > 103 -- -- < > 98 CO2 mmol/L 17* 23 23 < > 26 -- -- < > 14* BUN mg/dL 33.0* 30.0* 28.0* < > 62.0* -- -- < > 131.0* CREATININE mg/dL 1.54* 1.73* 1.62* < > 2.58* -- -- < > 4.84* GLUCOSE mg/dL 172* 171* 204* < > 63* -- -- < > 107* CALCIUM, SERUM mg/dL 8.3* 8.7 8.1* < > 7.2* -- -- < > 8.2* MAGNESIUM mg/dL -- -- -- -- -- -- -- -- 2.2 PHOSPHORUS mg/dL -- -- 3.9 -- -- -- 9.9* -- -- AST U/L 21 22 -- -- 24 -- -- < > 22 ALT U/L 17 18 -- -- 19 -- -- < > 26 BILIRUBIN TOTAL mg/dL 0.3 0.3 -- -- 0.2 -- -- < > 0.3 ALBUMIN g/dL 2.6* 2.7* 2.6* < > 2.8* -- -- < > 3.2* TOTAL PROTEIN g/dL 5.0* 5.1* -- -- 4.2* -- -- < > 5.6* < > = values in this interval not displayed. Estimated Creatinine Clearance: 31.3 mL/min (A) (by C-G formula based on SCr of 1.54 mg/dL (H)). IMAGING Imaging results: XR CHEST [address] [place] [address] PATIENT NAME: SHIRIN AGUILLON : 1945 GENDER: F EXAM DATE: 04/20/2021 18:31 ORDERED FROM: [facility] ORDERING PHYSICIAN: JORDAN RAMSEY CC: -- - - - CONTRAST: READING STATION ID: [id number] mGy: PROCEDURE: XR CHEST 1 VIEW INDICATIONS: doboff placement TECHNIQUE: One view of the chest was acquired. COMPARISON: [facility], CT, CT KUB, 04/17/2021, 8:09. [facility], CR, XR CHEST 1 VIEW, 04/16/2021, 12:17. FINDINGS: Surgical changes and devices: Feeding tube is coiled overlying the mid esophagus with the distal tip projecting cephalad, overlying the proximal-most esophagus. Unchanged left sided Lungs and pleura: Patchy appearance of bilateral basilar opacities are noted. Mediastinum: Mediastinal contours appear normal. Heart size is normal. Bones and chest wall: No suspicious bony lesions. Overlying soft tissues appear unremarkable. IMPRESSION: 1. Dobbhoff catheter is noted to be coiled overlying the mid esophagus with distal tip extending cephalad overlying the proximal most portion of the esophagus. It is noted that after this image was taken, tube had been removed. 2. Bibasilar opacities which could represent edema, atelectasis or developing pneumonia. Reviewed by: Mily Chavez M.D. on 04/20/2021 at 18:58 Approved by: Mily Chavez M.D. on 04/20/2021 at 19:02 Electronically signed by: Redd Trejo MD 04/21/2021 2:00 PM Portions of today's documentation have been created with the assistance of voice recognition software. Therefore, it may contain anomalous punctuation, anomalous independent misrecognitions, word substitutions, insertions or omissions. Occasional wrong-word or phonetically similar substitutions may also occur, all due to the inherent limitations of voice recognition software. Attempts to correct the above have been made by Redd Trejo MD but it is recommended that the chart be read carefully to recognize, using context, where the substitutions may have occurred. Associated attestation - Jordan Ramsey MD - 04/22/2021 7:13 AM PDT Patient was seen and examined with Dr. Trejo on 04/21/2021 . I participated in all aspects of clinical care including physical exam, and review of laboratory and imaging data. I agree with all documentation provided by the resident physician. Recap of plan: Continue current medical management, Discharge planning, Follow clinically, and Follow labs Louise Frances MD, CCC-AU PAIR - 04/20/2021 3:[address] received order for bedside swallow evaluation, appreciated, pt chart reviewed. Pt admitted for AMS. Report from chart indicates she has been NPO x5 days. Attempted to see for eval, RN and DIRECTOR REGULATORY AFFAIRS present. She is restless, in bilateral restraints, not opening eyes but straining and attempting to get outof bed. Not following commands or responding to cues by AU PAIR. Not appropriate for evaluation at this time. Will reattempt as able. Cari Darby LICSW - 04/20/2021 2:19 PM PDT SOCIAL WORK: PROGRESS NOTE Data: EMR reviewed. Pt is on day 4 for Problem List Items Addressed This Visit Musculoskeletal * (Principal) Pressure injury of skin of right calf Relevant Orders MISC. TEST - Culture, Deep Abscess Aerobic&Anaerobic w/gram stain (Completed) Other Visit Diagnoses Acute renal failure, unspecified acute renal failure type (CMS/HCC) - Primary Hyperkalemia Sepsis due to skin infection (CMS/HCC) Acute anemia Occult blood in stools Acute cystitis without hematuria Patient is not medically stable for discharge at this time. Per discussion with provider, discharge needs have not been identified. Social Work consults to coordinate these services have not been ordered by physician at this time. Bedside RN brought up concerns about pt wounds and pt wound care treatment on an outpt basis before and after this hospitalization. Limitations with Home Health due to home being on [facility], so she has been getting all of herwound care at [facility] with wound wrappings every three days per . They take a water taxi to get to and from the [place] as there is not ferry access. Discussed with steam turbine assembler and attending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 of Systems Constitutional: Negative for fever. Skin: Positive for wound. Objective Vital signs in last 24 hours: Temp: [36.3 ??C (97.3 ??F)-37.1 ??C (98.8 ??F)] 36.9 ??C (98.5 ??F) Heart Rate: [76-115] 94 Resp: [10-22] 12 BP: (159-218)/(70-120) 218/112 Intake/Output this shift: No intake/output data recorded. Physical Exam: Physical Exam Vitals reviewed. Constitutional: General: She is not in acute distress. Appearance: She is not ill-appearing or toxic-appearing. Skin: Neurological: Mental Status: She is alert. Labs: Results from last 7 days Lab Units 04/19/21 0511 WBC AUTO x10e3/uL 15.2* HEMATOCRIT % 23.2* PLATELETS AUTO x10e3/uL 227 Results from last 7 days Lab Units 04/19/21 0511 04/17/21 0443 04/17/21 0443 04/16/21 0330 04/15/21 2324 SODIUM mmol/L 140 < > 139 < > 130* POTASSIUM mmol/L 4.1 < > 4.6 < > 6.8* CHLORIDE mmol/L 103 < > 103 < > 98 CO2 mmol/L 23 < > 26 < > 14* BUN mg/dL 28.0* < > 62.0* < > 131.0* GLUCOSE mg/dL 204* < > 63* < > 107* MAGNESIUM mg/dL -- -- -- -- 2.2 ANION GAP mmol/L -- -- 10 < > 18* < > = values in this interval not displayed. Results from last 7 days Lab Units 04/16/21 0330 INR 1.4* Diagnostics: Assessment/Plan Primary diagnoses: 1. 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 POD #1 with drop in H&H although up 12 kg since last weighed 3 days ago. 2. GI bleeding at admission, no longer bleeding. 3. Sepsis presumed to be secondary to UTI 4. CAMILLE 5. UTI 6. Atrial fibrillation with RVR 7. Type 2 diabetes mellitus Other chronic conditions: 1. Chronic prednisone therapy for inflammatory bowel disease and rheumatoid arthritis ??? Abdominal pain ? Arthritis ? Arthritis, rheumatoid (CMS/HCC) ? Chronic diarrhea ? Delayed emergence from general anesthesia ? Diabetes (CMS/HCC) ? Disorder ? Nearly severed pinky finger ??? Gallbladder disease ? H/O recurrent pneumonia ? Hyperlipidemia ? Hypertension ? Kidney disease ? Kidney dysfunction ??? Low back pain ongoing ??? Migraine headache ? Neuropathy ? PONV (postoperative nausea and vomiting) ? Skin cancer ? Thyroid disease ? Tubular adenoma ? Ileocecal valve tubular adenoma ??? UTI (urinary tract infection) ? Weight loss, non-intentional Plan: 1. Okay to restart Eliquis. 2. General surgery will sign off. Wound care as per the wound care team. Electronically signed by NEGRITA Ovalles 04/19/2021 8:48 AM Time Spent: 30 minutes Valorie Marr MSW - 04/19/2021 8:27 AM PDT SOCIAL WORK: PROGRESS NOTE Data: EMR reviewed. Pt is on day 3 for Problem List Items Addressed This Visit Musculoskeletal * (Principal) Pressure injury of skin of right calf Relevant Orders MISC. TEST - Culture, Deep Abscess Aerobic&Anaerobic w/gram stain Other Visit Diagnoses Acute renal failure, unspecified acute renal failure type (CMS/HCC) - Primary Hyperkalemia Sepsis due to skin infection (CMS/[facility]) Acute anemia Occult blood in stools Acute cystitis without hematuria Patient is not medically stable for discharge at this time. Per discussion with provider, discharge needs have not been identified. Social Work consults to coordinate these services have not been ordered by physician at this time. MD anticipates 1-2 more days inpatient. No needs have been identified or are anticipated at this time Pt is not medically stable for DC. 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 HUDSON Qiu LICASW Redd Campbell MD - 04/19/2021 6:[address] [facility]: INPATIENT PROGRESS NOTE Patient Name: Shirin Aguillon Date of : 1945 Age: 75 y.o. Code Status: Full Code Primary Care Physician: Rogelio Braga MD Admitting Provider: Ana Maria Narvaez MD Attending Provider: Jordan Ramsey MD Admit Date: 04/15/2021 Date of Service: 04/19/2021 Hospital Day: 3 ASSESSMENT & PLAN Shirin Aguillon is a 75 y.o. female anticoagulated with Eliquis??with a hx notable for type II diabetes mellitus, hypertension, hyperlipidemia, kidney dysfunction, and rheumatoid arthritis??who presents to the ED??for evaluation of altered mental status and found to be in CAMILLE with hyperkalemia. TODAY'S PLAN: - Restart eliquis as per surgery - Follow renal function - no dialysis today - Trend H&H, transfuse if <7, GI consult - Continue stress dose steroids at half the dose (25mg q8h) - Restart home diltiazpam for HTN ACTIVELY MANAGED PROBLEMS (problems are generally active day to day and carried forward): CAMILLE with hyperkalemia, acute, present on admission. Resolving. -Nephrology consulted, appreciate their recommendations -S/P hyperkalemia protocol + chriskelma. -Improved BUN and Cr, no dialysis today. If CAMILLE improves again tomorrow, pull trialysis catheter. ?? Ulceration/skin breakdown, POA. Active. - S/p bilateral calf wound debridement - Continue to monitor WBCs, fevers ?? UTI, acute, present on admission and improving -Await urine culture and sensitivities.??Broad-spectrum coverage with IV cefepime. GI bleed,??present on admission and improving. -Consider GI consult??once stable. S/P 1 unit transfusion. Anticoagulation for hx DVT held. ?? Body jerking, present on admission and improving. - Occurs consistently. Likely secondary to renal failure induced electrolyte derangements. Monitor. CHRONIC or RESOLVING PROBELMS ?? Prednisone therapy for inflammatory bowel disease and rheumatoid arthritis, present on admission - IV hydrocortisone stress dose of 25 mg every 8 hours ?? Type 2 diabetes, chronic, present on admission and active -Placed on subcu insulin protocol -Hemoglobin A1c of 9, will need to start medication on discharge -Good control Sepsis, acute, present on admission. Resolved. -Source likely UTI. Procal of 1.35.?? BC negative at 48 hours still, no growth on UC, and afebrile.??Chest x-ray shows no infiltrates -Continue with IV cefepime. Consider adding vanc if she spikes a fever/white count worsens to cover skin Atrial fibrillation with rapid ventrilcular response , present on admission. Resolved. VTE Prophylaxis: Anticoagulation contraindicated at this time due to DVTCONTRAINDICATIONS: Current GI bleed Code Status: Full code Disposition: Anticipate discharge to: To be determined (patient is too ill to forcast) within remains unknown (to ill to say) SUBJECTIVE Chief Complaint Patient presents with ??? Altered Mental Status ??? Shortness of Breath Patient's Update Patient is delirious and is unable to engage in a meaningful way. Interval Update CAMILLE: Improved BUN (28 from 62) and Cr 1.62 (2.58), GFR increased to 31 from 18, output: 140ml, [id number] ID: [id number] day 4; BC negative at 48 hours still, no growth on UC, no fevers overnight therefore hold off on vanc Heme: Hgb 7.1 (down from 8), WBC elevated at 15.2 from 13.1, trop down trending to 0.071 from 0.094 OBJECTIVE First recorded vitals: Temp: 36.3 ??C (97.3 ??F) - BP: 90/49 - Heart Rate: (!) 106 - Resp: 20 - SpO2: 100 % O2 Flow Rate (L/min): 4 L/min Most recent vital signs: Most recent vitals: Temp: 36.9 ??C (98.5 ??F) - BP: (!) 218/112 (RN aware) - Heart Rate: 94 - Resp: (!) 12 (RN aware) - SpO2: 98 % O2 Flow Rate (L/min): 6 L/min Physical Exam Constitutional: Appearance: She is well-developed. HENT: Head: Normocephalic and atraumatic. Eyes: General: No scleral icterus. Cardiovascular: Rate and Rhythm: Normal rate and regular rhythm. Heart sounds: No murmur heard. Pulmonary: Effort: Pulmonary effort is normal. No respiratory distress. Breath sounds: Normal breath sounds. No wheezing or rales. Abdominal: General: Bowel sounds are normal. Palpations: Abdomen is soft. Tenderness: There is no abdominal tenderness. There is no guarding. Musculoskeletal: Right lower le+ Pitting Edema present. Left lower le+ Pitting Edema present. Comments: Bilateral calf wound dressings present Skin: General: Skin is warm and dry. Findings: No rash. Neurological: Mental Status: She is alert. She is disoriented and confused. Psychiatric: Attention and Perception: She is inattentive. Behavior: Behavior is uncooperative. Thought Content: Thought content normal. Judgment: Judgment is impulsive. Scheduled Hospital Meds apixaban, 5 mg, oral, BID cefepime, 1 g, intravenous, q12h dextrose 50% (D50W), 25 g, intravenous, Once diltiazem CD, 240 mg, oral, Daily hydrocortisone sodium succinate, 25 mg, intravenous, q8h SUELLEN miconazole, , Topical, BID pantoprazole, 40 mg, intravenous, q12h REGULAR INSULIN, 0-6 Units, subcutaneous, q6h LABS & DIAGNOSTICS Hematology Results from last 7 days Lab Units 04/19/21 0511 04/17/21 0443 04/16/21 1429 04/16/21 0850 04/16/21 0850 WBC AUTO x10e3/uL 15.2* 13.1* -- -- 14.7* HEMOGLOBIN g/dL 7.1* 8.0* 8.8* < > 8.8* HEMATOCRIT % 23.2* 25.3* 27.3* < > 28.7* MCV fL 80* 77* -- -- 81 PLATELETS AUTO x10e3/uL 227 277 -- -- 316 < > = values in this interval not displayed. Chemistries Results from last 7 days Lab Units 04/19/21 0511 04/17/21 0443 04/16/21 1429 04/16/21 0842 04/16/21 0635 04/16/21 0330 04/15/21 2324 SODIUM mmol/L 140 139 -- -- -- -- 130* POTASSIUM mmol/L 4.1 4.6 3.8 < > 6.0* < > 6.8* CHLORIDE mmol/L 103 103 -- -- -- -- 98 CO2 mmol/L 23 26 -- -- -- -- 14* BUN mg/dL 28.0* 62.0* -- -- -- -- 131.0* CREATININE mg/dL 1.62* 2.58* -- -- -- -- 4.84* GLUCOSE mg/dL 204* 63* -- -- -- -- 107* CALCIUM, SERUM mg/dL 8.1* 7.2* -- -- -- -- 8.2* MAGNESIUM mg/dL -- -- -- -- -- -- 2.2 PHOSPHORUS mg/dL 3.9 -- -- -- 9.9* -- -- AST U/L -- 24 -- -- -- -- 22 ALT U/L -- 19 -- -- -- -- 26 BILIRUBIN TOTAL mg/dL -- 0.2 -- -- -- -- 0.3 ALBUMIN g/dL 2.6* 2.8* -- -- -- -- 3.2* TOTAL PROTEIN g/dL -- 4.2* -- -- -- -- 5.6* < > = values in this interval not displayed. Estimated Creatinine Clearance: 29.8 mL/min (A) (by C-G formula based on SCr of 1.62 mg/dL (H)). IMAGING Imaging results: [place] [address] PATIENT NAME: SHIRIN AGUILLON : 1945 GENDER: F EXAM DATE: 04/17/2021 8:09 ORDERED FROM: [facility] ORDERING PHYSICIAN: ANA MARIA NARVAEZ CC: JORDAN RAMSEY -- - - - CONTRAST: READING STATION ID: [id number] mGy: PROCEDURE: CT KUB INDICATIONS: camille TECHNIQUE: Axial sections were acquired from the lung bases to the pubic symphysis. Coronal and sagittal reformats were performed. For radiation dose reduction, the following was used: automated exposure control, adjustment of mA and/or kV according to patient size. COMPARISON:[facility], CR, XR CHEST 1 VIEW, 04/16/2021, 12:17. [facility], CT, CT ABDOMEN PELVIS W CON, 06/12/2020, 17:23. FINDINGS: Image quality: Excellent. Lung bases: Patchy opacities are noted scattered in posterior aspect of bilateral lung bases and anterolateral aspect of right lung base. No pleural effusion or pneumothorax. Heart: Heart size is mildly enlarged, no pericardial effusion. Moderate atherosclerotic disease isseen. URINARY: Right Kidney: Subcentimeter nonobstructing right renal calculi versus vascular calcifications are seen measures 3-4 mm in size. No hydronephrosis or perinephric fat stranding. Right Ureter: No hydroureter. Left Kidney: Left kidney is smaller in size compared to the right side. Tiny 1-2 mm nonobstructingleft renal calculi are seen. No hydronephrosis or perinephric fat stranding. Left Ureter: No hydroureter. Bladder: Howard catheter is seen in a decompressed urinary bladder. No obvious bladder wall abnormality is seen. ABDOMEN: Liver: Liver is normal in size. Calcified granuloma in right hepatic dome is seen. Gallbladder: Gallbladder is surgically absent. Biliary ducts: Unremarkable. Pancreas: Pancreas is atrophic. No peripancreatic inflammatory changes or discrete pancreatic mass. Spleen: Unremarkable. Adrenal Glands: Unremarkable. Stomach and Bowel: Again noted is prior partial colectomy. No abnormal bowel wall thickening or mesenteric fat stranding. No abscess collection. Peritoneum: No abnormal intraperitoneal fluid. No free air. Ventral Wall: No hernia. Abdominal Nodes: No enlarged retroperitoneal or mesenteric lymph nodes. Vessels: Aorta and inferior vena cava are normal in size. Extensive atherosclerotic calcificationsthroughout abdominal aorta and bilateral iliac vessels are seen. PELVIS: Pelvic Organs: Uterus and bilateral ovaries show no gross abnormality. 2 cm hypodense oval lesion in left peroneal region is again seen likely represent Bartholin gland cyst unchanged from prior study. Pelvic Nodes: Unremarkable. Miscellaneous: No inguinal hernias are seen. Mild generalized anasarca is seen. Bones: Postfusion changes at L2 through L5 levels are again seen. No gross hardware loosening or failure. No acute compression fracture or spondylolisthesis. No suspicious bony lesion is seen. Osteoarthritic changes are noted throughout bony pelvis. IMPRESSION: 1. Tiny nonobstructing bilateral renal calculi versus vascular calcifications. No hydronephrosis orhydroureter. Howard catheter in a decompressed urinary bladder. 2. Scattered small infiltrate/atelectasis in bilateral lung bases more prominent on the right side as above. 3. No bowel obstruction or abnormal bowel wall thickening. No free fluid or free air. 4. Other findings as above, not significantly changed from prior study. Reviewed by: Jacinto Rodriguez M.D. on 04/17/2021 at 8:33 Approved by: Jacinto Rodriguez M.D. on 04/17/2021 at 8:41 Electronically signed by: Redd Trejo MD 04/19/2021 11:33 AM Portions of today's documentation have been created with the assistance of voice recognition software. Therefore, it may contain anomalous punctuation, anomalous independent misrecognitions, word substitutions, insertions or omissions. Occasional wrong-word or phonetically similar substitutions may also occur, all due to the inherent limitations of voice recognition software. Attempts to correct the above have been made by Redd Trejo MD but it is recommended that the chart be read carefully to recognize, using context, where the substitutions may have occurred. Associated attestation - Jordan Ramsey MD - 04/20/2021 7:34 AM PDT Patient was seen and examined with Dr. Trejo on 04/19/2021 . I participated in all aspects of clinical care including physical exam, and review of laboratory and imaging data. I agree with all documentation provided by the resident physician. Recap of plan: Continue current medical management, Discharge planning, Follow clinically, and Follow labs Renal function improving. She is having agitation issues and some encephalopathy. Jordan Moncada MD, MD - 04/18/2021 11:[address] [facility]: INPATIENT PROGRESS NOTE Patient Name: Shirin Aguillon Date of : 1945 Age: 75 y.o. Code Status: Full Code Primary Care Physician: Rogelio Braga MD Admitting Provider: Ana Maria Narvaez MD Attending Provider: Jordan Ramsey MD Admit Date: 04/15/2021 Date of Service: 04/18/2021 Hospital Day: 2 ASSESSMENT & PLAN Shirin Aguillon is a 75 y.o. female anticoagulated with Eliquis??with a hx notable for type II diabetes mellitus, hypertension, hyperlipidemia, kidney dysfunction, and rheumatoid arthritis??who presents to the ED??for evaluation of altered mental status and found to be in CAMILLE with hyperkalemia. Fromprevious notes TODAY'S PLAN: -status post bilateral calf wound debridements today -follow potassium and renal function -no dialysis -stress dose steroids ACTIVELY MANAGED PROBLEMS (problems are generally active day to day and carried forward): Sepsis, acute, present on admission and improved -Source likely UTI. Procal of 1.35.??Blood cultures x2.??Chest x-ray shows no infiltrates -Continue with IV cefepime. Consider adding vanc if she spikes a fever/white count worsens to cover skin. ?? CAMILLE with hyperkalemia, acute, present on admission and improved -S/P hyperkalemia protocol + lokelma. Nephrology was dialyzing. No following renal function and urine output ?? Ulceration/skin breakdown, POA:Active. - GS consulted. NPO midnight, hold eliquis. - GS will evaluate tomorrow. Appreciate recs and mgmt. ?? UTI, acute, present on admission and improving -Await urine culture and sensitivities.??Broad-spectrum coverage with IV cefepime. ?? Atrial fibrillation with rapid ventrilcular response , present on admission and improving. - Cardizem infusion when hemodynamically stable. Fluctuating rate. ?? GI bleed,??present on admission and improving. -Consider GI consult??once stable. S/P 1 unit transfusion. Anticoagulation for hx dvt held. ?? Body jerking, present on admission and improving. - Occurs consistently. Likely secondary to renal failure induced electrolyte derangements. Monitor ?? Prednisone therapy for inflammatory bowel disease and rheumatoid arthritis, present on admission - will cover with IV hydrocortisone stress dose of 50 mg every 8 hours ?? Type 2 diabetes, chronic, present on admission and active -Placed on subcu insulin protocol -Check hemoglobin A1c -good control ?? VTE Prophylaxis: Anticoagulation contraindicated at this time due to DVTCONTRAINDICATIONS: Current GI bleed Code Status: Full code Disposition: Anticipate discharge to : To be determined (patient is too ill to forcast) within remains unknown (to ill to say) SUBJECTIVE Chief Complaint Patient presents with ??? Altered Mental Status ??? Shortness of Breath Patient's Update Patient was seen and evaluated bedside. Patientupdate: Legs hurt from debridement Denies: chest pain dyspnea . Interval Update There were no critical overnight events. All nursing notes, labs and pertinent imaging reviewed. No other issues upon chart review. OBJECTIVE First recorded vitals: Temp: 36.3 ??C (97.3 ??F) - BP: 90/49 - Heart Rate: (!) 106 - Resp: 20 - SpO2: 100 % O2 Flow Rate (L/min): 4 L/min Most recent vital signs: Most recent vitals: Temp: 36.9 ??C (98.4 ??F) - BP: (!) 170/72 - Heart Rate: 84 - Resp: 15 - SpO2: 96 % O2 Flow Rate (L/min): 4 L/min Physical Exam Patient is alert and oriented. Symmetric pupils Lungs are clear, with normal rate and effort Heart is regular without murmur gallop or rub Abdomen is soft, nondistended or tender. Extremities are with 1+ edema Good pedal and radial pulses Skin appears normal. Both lower legs wrapped Scheduled Hospital Meds [Held by provider] atorvastatin, 10 mg, oral, Nightly [DEC Hold] cefepime, 1 g, intravenous, q24h [DEC Hold] dextrose 50% (D50W), 25 g, intravenous, Once [DEC Hold] hydrocortisone sodium succinate, 50 mg, intravenous, q8h SUELLEN [Held by provider] levothyroxine, 75 mcg, oral, Daily [DEC Hold] miconazole, , Topical, BID [DEC Hold] pantoprazole, 40 mg, intravenous, q12h [DEC Hold] REGULAR INSULIN, 0-6 Units, subcutaneous, q6h LABS & DIAGNOSTICS Hematology Results from last 7 days Lab Units 04/17/21 0443 04/16/21 1429 04/16/21 0850 04/16/21 0330 04/15/21 2324 WBC AUTO x10e3/uL 13.1* -- 14.7* -- 14.4* HEMOGLOBIN g/dL 8.0* 8.8* 8.8* < > 8.0* HEMATOCRIT % 25.3* 27.3* 28.7* < > 26.6* MCV fL 77* -- 81 -- 78* PLATELETS AUTO x10e3/uL 277 -- 316 -- 383 < > = values in this interval not displayed. Chemistries Results from last 7 days Lab Units 04/17/21 0443 04/16/21 1429 04/16/21 0842 04/16/21 0635 04/16/21 0635 04/16/21 0330 04/15/21 2324 SODIUM mmol/L 139 -- -- -- -- -- 130* POTASSIUM mmol/L 4.6 3.8 5.5* < > 6.0* < > 6.8* CHLORIDE mmol/L 103 -- -- -- -- -- 98 CO2 mmol/L 26 -- -- -- -- -- 14* BUN mg/dL 62.0* -- -- -- -- -- 131.0* CREATININE mg/dL 2.58* -- -- -- -- -- 4.84* GLUCOSE mg/dL 63* -- -- -- -- -- 107* CALCIUM, SERUM mg/dL 7.2* -- -- -- -- -- 8.2* MAGNESIUM mg/dL -- -- -- -- -- -- 2.2 PHOSPHORUS mg/dL -- -- -- -- 9.9* -- -- AST U/L 24 -- -- -- -- -- 22 ALT U/L 19 -- -- -- -- -- 26 BILIRUBIN TOTAL mg/dL 0.2 -- -- -- -- -- 0.3 ALBUMIN g/dL 2.8* -- -- -- -- -- 3.2* TOTAL PROTEIN g/dL 4.2* -- -- -- -- -- 5.6* < > = values in this interval not displayed. Estimated Creatinine Clearance: 17.3 mL/min (A) (by C-G formula based on SCr of 2.58 mg/dL (H)). IMAGING Imaging results: [place], [place]. [id number] PATIENT NAME: SHIRIN AGUILLON : 1945 GENDER: F EXAM DATE: 04/17/2021 8:09 ORDERED FROM: [facility] ORDERING PHYSICIAN: ANA MARIA NARVAEZ CC: JORDAN RAMSEY -- - - - CONTRAST: READING STATION ID: [id number] mGy: PROCEDURE: CT KUB INDICATIONS: camille TECHNIQUE: Axial sections were acquired from the lung bases to the pubic symphysis. Coronal and sagittal reformats were performed. For radiation dose reduction, the following was used: automated exposure control, adjustment of mA and/or kV according to patient size. COMPARISON:[facility], CR, XR CHEST 1 VIEW, 04/16/2021, 12:17. [facility], CT, CT ABDOMEN PELVIS W CON, 06/12/2020, 17:23. FINDINGS: Image quality: Excellent. Lung bases: Patchy opacities are noted scattered in posterior aspect of bilateral lung bases and anterolateral aspect of right lung base. No pleural effusion or pneumothorax. Heart: Heart size is mildly enlarged, no pericardial effusion. Moderate atherosclerotic disease isseen. URINARY: Right Kidney: Subcentimeter nonobstructing right renal calculi versus vascular calcifications are seen measures 3-4 mm in size. No hydronephrosis or perinephric fat stranding. Right Ureter: No hydroureter. Left Kidney: Left kidney is smaller in size compared to the right side. Tiny 1-2 mm nonobstructingleft renal calculi are seen. No hydronephrosis or perinephric fat stranding. Left Ureter: No hydroureter. Bladder: Howard catheter is seen in a decompressed urinary bladder. No obvious bladder wall abnormality is seen. ABDOMEN: Liver: Liver is normal in size. Calcified granuloma in right hepatic dome is seen. Gallbladder: Gallbladder is surgically absent. Biliary ducts: Unremarkable. Pancreas: Pancreas is atrophic. No peripancreatic inflammatory changes or discrete pancreatic mass. Spleen: Unremarkable. Adrenal Glands: Unremarkable. Stomach and Bowel: Again noted is prior partial colectomy. No abnormal bowel wall thickening or mesenteric fat stranding. No abscess collection. Peritoneum: No abnormal intraperitoneal fluid. No free air. Ventral Wall: No hernia. Abdominal Nodes: No enlarged retroperitoneal or mesenteric lymph nodes. Vessels: Aorta and inferior vena cava are normal in size. Extensive atherosclerotic calcificationsthroughout abdominal aorta and bilateral iliac vessels are seen. PELVIS: Pelvic Organs: Uterus and bilateral ovaries show no gross abnormality. 2 cm hypodense oval lesion in left peroneal region is again seen likely represent Bartholin gland cyst unchanged from prior study. Pelvic Nodes: Unremarkable. Miscellaneous: No inguinal hernias are seen. Mild generalized anasarca is seen. Bones: Postfusion changes at L2 through L5 levels are again seen. No gross hardware loosening or failure. No acute compression fracture or spondylolisthesis. No suspicious bony lesion is seen. Osteoarthritic changes are noted throughout bony pelvis. IMPRESSION: 1. Tiny nonobstructing bilateral renal calculi versus vascular calcifications. No hydronephrosis orhydroureter. Howard catheter in a decompressed urinary bladder. 2. Scattered small infiltrate/atelectasis in bilateral lung bases more prominent on the right side as above. 3. No bowel obstruction or abnormal bowel wall thickening. No free fluid or free air. 4. Other findings as above, not significantly changed from prior study. Reviewed by: Jacinto Rodriguez M.D. on 04/17/2021 at 8:33 Approved by: Jacinto Rodriguez M.D. on 04/17/2021 at 8:41 Electronically signed by: Jordan Ramsey MD 04/18/2021 11:43 AM Portions of today's documentation have been created with the assistance of voice recognition software. Therefore, it may contain anomalous punctuation, anomalous independent misrecognitions, word substitutions, insertions or omissions. Occasional wrong-word or phonetically similar substitutions may also occur, all due to the inherent limitations of voice recognition software. Attempts to correct the above have been made by Jordan Ramsey MD but it is recommended that the chart be read carefully to recognize, using context, where the substitutions may have occurred. Ricardo Tucker MD - 04/18/2021 11:41 AM PDT NEPHROLOGY PROGRESS NOTE [facility] PATIENT NAME: Shirin Aguillon DATE OF : 1945 PRIMARY CARE PROVIDER: Rogelio Braga MD DATE OF ADMISSION: 04/15/2021 DATE OF SERVICE: 04/18/2021 SUBJECTIVE Lou is stable overnight. Urine output was 850 ml yesterday. Urinalysis remains with WBC but urine culture so far with no growth. BP stable and is now running higher. Plan for OR today for debridement of wounds. MEDICATIONS Scheduled Medications: [Held by provider] atorvastatin, 10 mg, oral, Nightly [DEC Hold] cefepime, 1 g, intravenous, q24h [DEC Hold] dextrose 50% (D50W), 25 g, intravenous, Once [DEC Hold] hydrocortisone sodium succinate, 50 mg, intravenous, q8h SUELLEN [Held by provider] levothyroxine, 75 mcg, oral, Daily [DEC Hold] miconazole, , Topical, BID [DEC Hold] pantoprazole, 40 mg, intravenous, q12h [DEC Hold] REGULAR INSULIN, 0-6 Units, subcutaneous, q6h Continuous Infusions: [Dec] D5 % and 0.9 % sodium chloride, 75 mL/hr, Last Rate: Stopped (04/18/21 1004) [DEC Hold] norepinephrine, 0.5-20 mcg/min, Last Rate: Stopped (04/16/21 9777) PRN Medications: Insert peripheral IV AND [Dec] lidocaine AND Maintain IV access AND Saline lock IV AND [Dec] sodium chloride ??? Insert peripheral IV AND [Dec] lidocaine AND Maintain IV access AND Saline lock IV AND [Dec] sodium chloride ??? Insert peripheral IV AND [Dec] lidocaine AND Maintain IV access AND Saline lock IV AND [Dec] sodium chloride ??? [Dec] LORazepam ??? [Dec] morphine ??? [Dec] naloxone ??? [COMPLETED] Prepare/Crossmatch RBC: 1 Units AND [COMPLETED] Transfuse RBC: 1 Units AND [COMPLETED] Nursing communication: Ensure provider has obtained Informed Consent for Blood Transfusion AND Vital Signs AND [Dec] sodium chloride AND [COMPLETED] Nursing Communication: Transfusion Reaction Management ??? [Dec] sodium chloride ??? [DEC Hold] sodium chloride EXAMINATION Vital Signs: Temp: [36.8 ??C (98.3 ??F)-37.3 ??C (99.1 ??F)] 36.9 ??C (98.4 ??F) Heart Rate: [79-154] 84 Resp: [12-45] 15 BP: (121-188)/(52-112) 170/72 Admission: Weight: 72.6 kg Intake and Output: Intake/Output Summary (Last 24 hours) at 04/18/2021 1142 Last data filed at 04/18/2021 1118 Gross per 24 hour Intake 1459 ml Output 1902 ml Net -443 ml General Appearance: Alert, awake, not in acute distress Head: Normocephalic, no obvious abnormality, atraumatic. LABORATORY AND IMAGING Hematology Results from last 7 days Lab Units 04/17/21 0443 04/16/21 1429 04/16/21 0850 04/16/21 0330 04/15/21 2324 WBC AUTO x10e3/uL 13.1* -- 14.7* -- 14.4* HEMOGLOBIN g/dL 8.0* 8.8* 8.8* < > 8.0* HEMATOCRIT % 25.3* 27.3* 28.7* < > 26.6* MCV fL 77* -- 81 -- 78* PLATELETS AUTO x10e3/uL 277 -- 316 -- 383 < > = values in this interval not displayed. Coagulation Studies Results from last 7 days Lab Units 04/16/21 0330 INR 1.4* Chemistries Results from last 7 days Lab Units 04/17/213 04/16/21 1429 04/16/21 0842 04/16/21 0635 04/16/21 0635 04/16/21 0330 04/15/21 2324 SODIUM mmol/L 139 -- -- -- -- -- 130* POTASSIUM mmol/L 4.6 3.8 5.5* < > 6.0* < > 6.8* CHLORIDE mmol/L 103 -- -- -- -- -- 98 CO2 mmol/L 26 -- -- -- -- -- 14* BUN mg/dL 62.0* -- -- -- -- -- 131.0* CREATININE mg/dL 2.58* -- -- -- -- -- 4.84* CALCIUM, SERUM mg/dL 7.2* -- -- -- -- -- 8.2* MAGNESIUM mg/dL -- -- -- -- -- -- 2.2 PHOSPHORUS mg/dL -- -- -- -- 9.9* -- -- AST U/L 24 -- -- -- -- -- 22 ALT U/L 19 -- -- -- -- -- 26 BILIRUBIN TOTAL mg/dL 0.2 -- -- -- -- -- 0.3 ALBUMIN g/dL 2.8* -- -- -- -- -- 3.2* TOTAL PROTEIN g/dL 4.2* -- -- -- -- -- 5.6* < > = values in this interval not displayed. Estimated Creatinine Clearance: 17.3 mL/min (A) (by C-G formula based on SCr of 2.58 mg/dL (H)). Urinalysis Results from last 7 days Lab Units 04/17/21 1251 04/16/21 0038 UROBILINOGEN, URINALYSIS EU/dL 0.2 (Normal) 0.2 (Normal) RBC, URINALYSIS /HPF 0-2 0-2 WBC, URINALYSIS /HPF >50 Packed (TNTC)* >50 Packed (TNTC)* Cardiac Enzymes No lab exists for component: TROPONINI Lipid Profile ASSESSMENT AND PLAN Patient Active Problem List Diagnosis ??? Seronegative rheumatoid arthritis of multiple sites (CMS/HCC) ??? Osteoarthropathy ??? Type II diabetes mellitus with complication (CMS/HCC) ??? Renal insufficiency ??? Grief ??? Psoriatic arthritis (CMS/HCC) ??? Abdominal pain ??? Functional diarrhea ??? Nausea and vomiting ??? Excessive body weight loss ??? Pressure injury of skin of right calf 1. CAMILLE due to infection and ATN on CKD stage 3: Urine output stable. No need for HD today. Reassesstomorrow and will get labs to check for any potential recovery. Urinalysis with pyuria but cultures negative so AIN is possible. Will review urine sediment in AM. 2. HTN: A bit high. Watch post op levels. 3. Volume: No UF. 4. Anemia: Hgb stable at 8.0. Check ferritin. Iron sat low at 11%. 5. Electrolytes: Hyperkalemia resolved. 6. Access: Left internal jugular temp line. Signed, Ricardo Austin MD 04/18/2021 11:42 AM Pager: [phone] Caitlin, Ricardo Lowery MD - 04/17/2021 12:06 PM PDT NEPHROLOGY PROGRESS NOTE [facility] PATIENT NAME: Shirin Aguillon DATE OF : 1945 PRIMARY CARE PROVIDER: Rogelio Braga MD DATE OF ADMISSION: 04/15/2021 DATE OF SERVICE: 04/17/2021 SUBJECTIVE I saw and evaluated Lou on dialysis. She is tolerating it well. She remains confused. BP labile attimes but off pressors. Urine output improving with 960 ml yesterday. MEDICATIONS Scheduled Medications: [Held by provider] atorvastatin, 10 mg, oral, Nightly cefepime, 1 g, intravenous, q24h dextrose 50% (D50W), 25 g, intravenous, Once hydrocortisone sodium succinate, 50 mg, intravenous, q8h SUELLEN [Held by provider] levothyroxine, 75 mcg, oral, Daily pantoprazole, 40 mg, intravenous, q12h REGULAR INSULIN, 0-6 Units, subcutaneous, q6h Continuous Infusions: D5 % and 0.9 % sodium chloride, 75 mL/hr, Last Rate: 75 mL/hr (04/17/21 0823) norepinephrine, 0.5-20 mcg/min, Last Rate: Stopped (04/16/21 1757) PRN Medications: Insert peripheral IV AND lidocaine AND Maintain IV access AND Saline lock IV AND sodium chloride ??? Insert peripheral IV AND lidocaine AND Maintain IV access AND Saline lock IV AND sodium chloride ??? Insert peripheral IV AND lidocaine AND Maintain IV access AND Saline lock IV AND sodium chloride ??? LORazepam ??? morphine ??? naloxone ??? [COMPLETED] Prepare/Crossmatch RBC: 1 Units AND [COMPLETED] Transfuse RBC: 1 Units AND [COMPLETED] Nursing communication: Ensure provider has obtained Informed Consent for Blood Transfusion AND Vital Signs AND sodium chloride AND [COMPLETED] Nursing Communication: Transfusion Reaction Management ??? sodium chloride ??? sodium chloride EXAMINATION Vital Signs: Temp: [36.8 ??C (98.2 ??F)-37 ??C (98.6 ??F)] 37 ??C (98.6 ??F) Heart Rate: [89-159] 89 Respirations: [15-48] 22 BP: (61-214)/(14-110) 161/60 Admission: Weight: 72.6 kg Intake and Output: Intake/Output Summary (Last 24 hours) at 04/17/2021 1206 Last data filed at 04/16/2021 2300 Gross per 24 hour Intake 518.5 ml Output 1262 ml Net -743.5 ml General Appearance: Alert, awake, not in acute distress Head: Normocephalic, no obvious abnormality, atraumatic. Lungs: Normal respiratory effort, clear to auscultation bilaterally, no crackles, wheezing or rhonchi noted. Heart: Regular rate and rhythm, S1, S2 normal, no murmur, no rub or gallop. Extremities: Trace edema, no cyanosis, no clubbing. Skin: Normal skin color, no rashes or lesions. LABORATORY AND IMAGING Hematology Results from last 7 days Lab Units 04/17/21 0443 04/16/21 1429 04/16/21 0850 04/16/21 0330 04/15/21 2324 WBC AUTO x10e3/uL 13.1* -- 14.7* -- 14.4* HEMOGLOBIN g/dL 8.0* 8.8* 8.8* < > 8.0* HEMATOCRIT % 25.3* 27.3* 28.7* < > 26.6* MCV fL 77* -- 81 -- 78* PLATELETS AUTO x10e3/uL 277 -- 316 -- 383 < > = values in this interval not displayed. Coagulation Studies Results from last 7 days Lab Units 04/16/21 0330 INR 1.4* Chemistries Results from last 7 days Lab Units 04/17/21 0443 04/16/21 1429 04/16/21 0842 04/16/21 0635 04/16/21 0635 04/16/21 0330 04/15/21 2324 SODIUM mmol/L 139 -- -- -- -- -- 130* POTASSIUM mmol/L 4.6 3.8 5.5* < > 6.0* < > 6.8* CHLORIDE mmol/L 103 -- -- -- -- -- 98 CO2 mmol/L 26 -- -- -- -- -- 14* BUN mg/dL 62.0* -- -- -- -- -- 131.0* CREATININE mg/dL 2.58* -- -- -- -- -- 4.84* CALCIUM, SERUM mg/dL 7.2* -- -- -- -- -- 8.2* MAGNESIUM mg/dL -- -- -- -- -- -- 2.2 PHOSPHORUS mg/dL -- -- -- -- 9.9* -- -- AST U/L 24 -- -- -- -- -- 22 ALT U/L 19 -- -- -- -- -- 26 BILIRUBIN TOTAL mg/dL 0.2 -- -- -- -- -- 0.3 ALBUMIN g/dL 2.8* -- -- -- -- -- 3.2* TOTAL PROTEIN g/dL 4.2* -- -- -- -- -- 5.6* < > = values in this interval not displayed. Estimated Creatinine Clearance: 17.3 mL/min (A) (by C-G formula based on SCr of 2.58 mg/dL (H)). Urinalysis Results from last 7 days Lab Units 04/16/21 0038 UROBILINOGEN, URINALYSIS EU/dL 0.2 (Normal) RBC, URINALYSIS /HPF 0-2 WBC, URINALYSIS /HPF >50 Packed (TNTC)* Cardiac Enzymes No lab exists for component: TROPONINI Lipid Profile ASSESSMENT AND PLAN Patient Active Problem List Diagnosis ??? Seronegative rheumatoid arthritis of multiple sites ([facility]) ??? Osteoarthropathy ??? Type II diabetes mellitus with complication ([facility]) ??? Renal insufficiency ??? Grief ??? Psoriatic arthritis (CMS/HCC) ??? Abdominal pain ??? Functional diarrhea ??? Nausea and vomiting ??? Excessive body weight loss ??? Pressure injury of skin of right calf 1. CAMILLE due to infection and ATN on CKD stage 3: HD today. Plan again Monday most likely unless she shows some recovery. CT KUB shows no obstruction. Monitor urine output. Urine culture negative interestingly. Will recheck urinalysis to assess if pyuria persists. Duration of treatment: 3 Hours (UF)Goal, fluid removal(L), or Dry weight(kg): 0 Dialyzer: Revaclear Dialysate: Flow Rate (QD) 500 mL/min BFR-As tolerated to a maximum of: 300 mL/min Dialysate Temperature (C) 35 K+ 2 meq Ca++ 2.5 meq Bicarb 33 meq Citrate Dialysate YES Na+ 137 meq Na+ Modeling No 2. HTN: Stable now so observe. 3. Volume: No UF today. 4. Anemia: Hgb stable at 8.0. Check ferritin. Iron sat low at 11%. 5. Electrolytes: Hyperkalemia resolved. 6. Access: Left internal jugular temp line. Signed, Ricardo Austin MD 04/17/2021 12:06 PM Pager: [phone] KATEJoJordan ng MD - 04/17/2021 10:[address] [facility]: INPATIENT PROGRESS NOTE Patient Name: Shirin Aguillon Date of : 1945 Age: 75 y.o. Code Status: Full Code Primary Care Physician: Rogelio Braga MD Admitting Provider: Ana Maria Narvaez MD Attending Provider: Jordan Ramsey MD Admit Date: 04/15/2021 Date of Service: 04/17/2021 Hospital Day: 1 ASSESSMENT & PLAN Shirin Aguillon is a 75 y.o. female anticoagulated with Eliquis??with a hx notable for type II diabetes mellitus, hypertension, hyperlipidemia, kidney dysfunction, and rheumatoid arthritis??who presents to the ED??for evaluation of altered mental status and found to be in CAMILLE with hyperkalemia. TODAY'S PLAN: -NPO midnight for surgery (ulcer debridement) -follow potassium and renal function -hold Eliquis -no dialysis -continue stress dose steroids ACTIVELY MANAGED PROBLEMS (problems are generally active day to day and carried forward): Sepsis, acute, present on admission and improved -Source likely UTI. Procal of 1.35. Blood cultures x2. Chest x-ray shows no infiltrates -Continue with IV cefepime. Consider adding vanc if she spikes a fever/white count worsens to cover skin. ?? CAMILLE with hyperkalemia, acute, present on admission and improved -S/P hyperkalemia protocol + lokelma. Nephrology was dialyzing. ?? Ulceration/skin breakdown, POA:Active. - GS consulted. NPO midnight, hold eliquis. - GS will evaluate tomorrow. Appreciate recs and mgmt. ?? UTI, acute, present on admission and active -Await urine culture and sensitivities. Broad-spectrum coverage with IV cefepime. ?? Afib, present on admission and improving. - Cardizem infusion when hemodynamically stable. Fluctuating rate. ?? GI bleed, present on admission and improving. -Consider GI consult once stable. S/P 1 unit transfusion. Anticoagulation for hx dvt held. ?? Body jerking, present on admission and active. - Occurs consistently. Likely secondary to renal failure induced electrolyte derangements. Monitor ?? Prednisone therapy for inflammatory bowel disease and rheumatoid arthritis, present on admission - will cover with IV hydrocortisone stress dose of 50 mg every 8 hours ?? Type 2 diabetes, chronic, present on admission -Placed on subcu insulin protocol -Check hemoglobin A1c -good control ?? VTE Prophylaxis: Anticoagulation contraindicated at this time due to DVTCONTRAINDICATIONS: Current GI bleed Code Status: Full code Disposition: Anticipate discharge to : To be determined (patient is too ill to forcast) within remains unknown (to ill to say) SUBJECTIVE Chief Complaint Patient presents with ??? Altered Mental Status ??? Shortness of Breath Patient's Update Patient was seen and evaluated bedside. Patientupdate: talking very little, denies oain. Update statements: Plan of care was discussed with patient and questions were solicited and answeredin a satisfactory manner. Interval Update There were no critical overnight events. All nursing notes, labs and pertinent imaging reviewed. No other issues upon chart review. OBJECTIVE First recorded vitals: Temp: 36.3 ??C (97.3 ??F) - BP: 90/49 - Heart Rate: (!) 106 - Respirations: 20 - SpO2: 100 % O2 FlowRate (L/min): 4 L/min Most recent vital signs: Most recent vitals: Temp: 37 ??C (98.6 ??F) - BP: 98/58 - Heart Rate: (!) 101 - Respirations: (!) 27 - SpO2: 100 % O2 Flow Rate (L/min): 4 L/min Physical Exam Patient is alert and oriented. Symmetric pupils Lungs are clear, with normal rate and effort Heart is regular without murmur gallop or rub Abdomen is soft, nondistended or tender. Extremities are with no edema, right calf wrapped Good pedal and radial pulses Skin appears normal. Scheduled Hospital Meds [Held by provider] atorvastatin, 10 mg, oral, Nightly cefepime, 1 g, intravenous, q24h dextrose 50% (D50W), 25 g, intravenous, Once hydrocortisone sodium succinate, 50 mg, intravenous, q8h SUELLEN [Held by provider] levothyroxine, 75 mcg, oral, Daily pantoprazole, 40 mg, intravenous, q12h REGULAR INSULIN, 0-6 Units, subcutaneous, q6h LABS & DIAGNOSTICS Hematology Results from last 7 days Lab Units 04/17/21 0443 04/16/21 1429 04/16/21 0850 04/16/21 0330 04/15/21 2324 WBC AUTO x10e3/uL 13.1* -- 14.7* -- 14.4* HEMOGLOBIN g/dL 8.0* 8.8* 8.8* < > 8.0* HEMATOCRIT % 25.3* 27.3* 28.7* < > 26.6* MCV fL 77* -- 81 -- 78* PLATELETS AUTO x10e3/uL 277 -- 316 -- 383 < > = values in this interval not displayed. Chemistries Results from last 7 days Lab Units 04/17/21 0443 04/16/21 1429 04/16/21 0842 04/16/21 0635 04/16/21 0635 04/16/21 0330 04/15/21 2324 SODIUM mmol/L 139 -- -- -- -- -- 130* POTASSIUM mmol/L 4.6 3.8 5.5* < > 6.0* < > 6.8* CHLORIDE mmol/L 103 -- -- -- -- -- 98 CO2 mmol/L 26 -- -- -- -- -- 14* BUN mg/dL 62.0* -- -- -- -- -- 131.0* CREATININE mg/dL 2.58* -- -- -- -- -- 4.84* GLUCOSE mg/dL 63* -- -- -- -- -- 107* CALCIUM, SERUM mg/dL 7.2* -- -- -- -- -- 8.2* MAGNESIUM mg/dL -- -- -- -- -- -- 2.2 PHOSPHORUS mg/dL -- -- -- -- 9.9* -- -- AST U/L 24 -- -- -- -- -- 22 ALT U/L 19 -- -- -- -- -- 26 BILIRUBIN TOTAL mg/dL 0.2 -- -- -- -- -- 0.3 ALBUMIN g/dL 2.8* -- -- -- -- -- 3.2* TOTAL PROTEIN g/dL 4.2* -- -- -- -- -- 5.6* < > = values in this interval not displayed. Estimated Creatinine Clearance: 17.3 mL/min (A) (by C-G formula based on SCr of 2.58 mg/dL (H)). No new labs Microbiology results: No new data since previous note Covid test: Negative IMAGING Imaging results: CT B [place], [place]. [id number] PATIENT NAME: SHIRIN AGUILLON : 1945 GENDER: F EXAM DATE: 04/17/2021 8:09 ORDERED FROM: [facility] ORDERING PHYSICIAN: ANA MARIA NARVAEZ CC: JORDAN RAMSEY -- - - - CONTRAST: READING STATION ID: [id number] mGy: PROCEDURE: CT KUB INDICATIONS: camille TECHNIQUE: Axial sections were acquired from the lung bases to the pubic symphysis. Coronal and sagittal reformats were performed. For radiation dose reduction, the following was used: automated exposure control, adjustment of mA and/or kV according to patient size. COMPARISON:[facility], CR, XR CHEST 1 VIEW, 04/16/2021, 12:17. [facility], CT, CT ABDOMEN PELVIS W CON, 06/12/2020, 17:23. FINDINGS: Image quality: Excellent. Lung bases: Patchy opacities are noted scattered in posterior aspect of bilateral lung bases and anterolateral aspect of right lung base. No pleural effusion or pneumothorax. Heart: Heart size is mildly enlarged, no pericardial effusion. Moderate atherosclerotic disease isseen. URINARY: Right Kidney: Subcentimeter nonobstructing right renal calculi versus vascular calcifications are seen measures 3-4 mm in size. No hydronephrosis or perinephric fat stranding. Right Ureter: No hydroureter. Left Kidney: Left kidney is smaller in size compared to the right side. Tiny 1-2 mm nonobstructingleft renal calculi are seen. No hydronephrosis or perinephric fat stranding. Left Ureter: No hydroureter. Bladder: Howard catheter is seen in a decompressed urinary bladder. No obvious bladder wall abnormality is seen. ABDOMEN: Liver: Liver is normal in size. Calcified granuloma in right hepatic dome is seen. Gallbladder: Gallbladder is surgically absent. Biliary ducts: Unremarkable. Pancreas: Pancreas is atrophic. No peripancreatic inflammatory changes or discrete pancreatic mass. Spleen: Unremarkable. Adrenal Glands: Unremarkable. Stomach and Bowel: Again noted is prior partial colectomy. No abnormal bowel wall thickening or mesenteric fat stranding. No abscess collection. Peritoneum: No abnormal intraperitoneal fluid. No free air. Ventral Wall: No hernia. Abdominal Nodes: No enlarged retroperitoneal or mesenteric lymph nodes. Vessels: Aorta and inferior vena cava are normal in size. Extensive atherosclerotic calcificationsthroughout abdominal aorta and bilateral iliac vessels are seen. PELVIS: Pelvic Organs: Uterus and bilateral ovaries show no gross abnormality. 2 cm hypodense oval lesion in left peroneal region is again seen likely represent Bartholin gland cyst unchanged from prior study. Pelvic Nodes: Unremarkable. Miscellaneous: No inguinal hernias are seen. Mild generalized anasarca is seen. Bones: Postfusion changes at L2 through L5 levels are again seen. No gross hardware loosening or failure. No acute compression fracture or spondylolisthesis. No suspicious bony lesion is seen. Osteoarthritic changes are noted throughout bony pelvis. IMPRESSION: 1. Tiny nonobstructing bilateral renal calculi versus vascular calcifications. No hydronephrosis orhydroureter. Howard catheter in a decompressed urinary bladder. 2. Scattered small infiltrate/atelectasis in bilateral lung bases more prominent on the right side as above. 3. No bowel obstruction or abnormal bowel wall thickening. No free fluid or free air. 4. Other findings as above, not significantly changed from prior study. Reviewed by: Jacinto Rodriguez M.D. on 04/17/2021 at 8:33 Approved by: Jacinto Rodriguez M.D. on 04/17/2021 at 8:41 Electronically signed by: Jordan Ramsey MD 04/17/2021 10:39 AM Portions of today's documentation have been created with the assistance of voice recognition software. Therefore, it may contain anomalous punctuation, anomalous independent misrecognitions, word substitutions, insertions or omissions. Occasional wrong-word or phonetically similar substitutions may also occur, all due to the inherent limitations of voice recognition software. Attempts to correct the above have been made by Jordan Ramsey MD but it is recommended that the chart be read carefully to recognize, using context, where the substitutions may have occurred. Jordan Eller MD - 04/16/2021 8:[address] [facility]: INPATIENT PROGRESS NOTE Patient Name: Shirin Aguillon Date of : 1945 Age: 75 y.o. Code Status: Full Code Primary Care Physician: Rogelio Braga MD Admitting Provider: Ana Maria Narvaez MD Attending Provider: Xavier Johnson MD Admit Date: 04/15/2021 Date of Service: 04/16/2021 Hospital Day: 0 ASSESSMENT & PLAN Shirin Aguillon is a 75 y.o. female 75 y.o. female anticoagulated with Eliquis with a hx notable for type II diabetes mellitus, hypertension, hyperlipidemia, kidney dysfunction, and rheumatoid arthritis who presents to the ED for evaluation of altered mental status and found to be in CAMILLE with hyperkalemia. ACTIVELY MANAGED PROBLEMS : Sepsis, acute, present on admission -Source likely UTI. Procal of 1.35. Blood cultures x2. Chest x-ray shows no infiltrates -Continue with IV cefepime. Consider adding vanc if she spikes a fever/white count worsens to cover skin. ?? CAMILLE with hyperkalemia, acute, present on admission -S/P hyperkalemia protocol + lokelma. Nephrology dialyzing. CT KUB when able. Bilateral calf wounds with ulceration/skin breakdown, present on admission and active. . - GS consulted. NPO midnight, hold eliquis. - GS will evaluate tomorrow. Appreciate recs and mgmt. ?? UTI, acute, present on admission -Await urine culture and sensitivities. Broad-spectrum coverage with IV cefepime. Afib, POA. Active. - Cardizem infusion when hemodynamically stable. Fluctuating rate. GI bleed, POA. Active. -Consider GI consult once stable. S/P 1 unit transfusion. Anticoagulation for hx dvt held. Body jerking, POA. Active - Occurs consistently. Likely secondary to renal failure induced electrolyte derangements. Monitor ?? Prednisone therapy for inflammatory bowel disease and rheumatoid arthritis, present on admission - will cover with IV hydrocortisone stress dose of 50 mg every 8 hours ?? Type 2 diabetes, chronic, present on admission -Placed on subcu insulin protocol -Check hemoglobin A1c ?? VTE Prophylaxis Anticoagulation contraindicated due to Possible GI bleed. VTE Prophylaxis: Held due to GIB Disposition: Anticipate discharge to : SUBJECTIVE Patient's Update Follows commands in terms of eyes opening. Was not able to provide much information. To the extent possible, plan of care was discussed with patient and questions were solicited. Interval Update Continue dialysis. Hold off on There were no critical overnight events. All nursing notes, labs and pertinent imaging reviewed. No other issues upon chart review. OBJECTIVE First recorded vitals: Temp: 36.3 ??C (97.3 ??F) - BP: 90/49 - Heart Rate: (!) 106 - Respirations: 20 - SpO2: 100 % O2 FlowRate (L/min): 4 L/min Most recent vital signs: Most recent vitals: Temp: 36.8 ??C (98.2 ??F) - BP: 150/50 - Heart Rate: 88 - Respirations: (!) 36 - SpO2: 95 % O2 Flow Rate (L/min): 4 L/min Physical Exam Vitals reviewed. Constitutional: General: She is in acute distress. Appearance: She is well-developed. She is obese. She is ill-appearing. She is not toxic-appearingor diaphoretic. HENT: Head: Normocephalic and atraumatic. Nose: Nose normal. Mouth/Throat: Mouth: Mucous membranes are moist. Pharynx: Oropharynx is clear. Eyes: General: No scleral icterus. Right eye: No discharge. Left eye: No discharge. Cardiovascular: Rate and Rhythm: Normal rate. Rhythm irregular. Heart sounds: No murmur heard. No friction rub. No gallop. Pulmonary: Effort: No respiratory distress. Breath sounds: No stridor. No wheezing. Comments: Coarse breath sounds bilaterally. Chest: Chest wall: No tenderness. Musculoskeletal: Cervical back: Normal range of motion and neck supple. Comments: Recurrent regular body jerk/tremor that lasts brief moments. Likely secondary to electrolyte derangements. Skin: General: Skin is warm and dry. Coloration: Skin is pale. Skin is not jaundiced. Neurological: Mental Status: She is alert. Scheduled Hospital Meds [START ON 04/17/2021] cefepime, 1 g, intravenous, q24h hydrocortisone sodium succinate, 50 mg, intravenous, q8h SUELLEN pantoprazole, 40 mg, intravenous, q12h REGULAR INSULIN, 0-6 Units, subcutaneous, q6h sodium zirconium cyclosilicate, 1 packet, oral, TID (LOKELOR) norepinephrine, 0.5-20 mcg/min, Last Rate: 10 mcg/min (04/16/21 1349) LABS & DIAGNOSTICS Hematology Results from last 7 days Lab Units 04/16/21 0635 04/16/21 0330 04/15/21 2324 WBC AUTO x10e3/uL -- -- 14.4* HEMOGLOBIN g/dL 8.7* 6.6* 8.0* HEMATOCRIT % -- -- 26.6* MCV fL -- -- 78* PLATELETS AUTO x10e3/uL -- -- 383 Chemistries Results from last 7 days Lab Units 04/16/21 0635 04/16/21 0330 04/15/21 2324 SODIUM mmol/L -- -- 130* POTASSIUM mmol/L 6.0* 5.7* 6.8* CHLORIDE mmol/L -- -- 98 CO2 mmol/L -- -- 14* BUN mg/dL -- -- 131.0* CREATININE mg/dL -- -- 4.84* GLUCOSE mg/dL -- -- 107* CALCIUM, SERUM mg/dL -- -- 8.2* MAGNESIUM mg/dL -- -- 2.2 AST U/L -- -- 22 ALT U/L -- -- 26 BILIRUBIN TOTAL mg/dL -- -- 0.3 ALBUMIN g/dL -- -- 3.2* TOTAL PROTEIN g/dL -- -- 5.6* Estimated Creatinine Clearance: 9.2 mL/min (A) (by C-G formula based on SCr of 4.84 mg/dL (H)). Continuous Infusions: norepinephrine, 0.5-20 mcg/min, Last Rate: 10 mcg/min (04/16/21 1349) Coagulation Studies: Results from last 7 days Lab Units 04/16/21 0330 INR 1.4* APTT sec 31.6 Urinalysis: Results from last 7 days Lab Units 04/16/21 0038 COLOR, URINALYSIS Yellow CLARITY UA Clear SPECIFIC GRAVITY, URINALYSIS 1.025 PH, URINALYSIS pH 5.0 LEUKOCYTE ESTERASE, URINALYSIS Moderate* NITRITE, URINALYSIS Negative PROTEIN, URINALYSIS mg/dL 100 * GLUCOSE, URINALYSIS mg/dL Negative KETONES, URINALYSIS mg/dL Negative UROBILINOGEN, URINALYSIS EU/dL 0.2 (Normal) BILIRUBIN, URINALYSIS Negative BLOOD, URINALYSIS Trace-Intact* RBC, URINALYSIS /HPF 0-2 WBC, URINALYSIS /HPF >50 Packed (TNTC)* BACTERIA, URINALYSIS /HPF Moderate* SQUAMOUS EPITHELIAL CELLS, URINE /HPF Occasional Cardiac Enzymes: Results from last 7 days Lab Units 04/16/21 1429 04/16/21 0635 TROPONINT ug/L 0.094* 0.100* Lipid Panel: ABG: Results from last 7 days Lab Units 04/16/21 0700 FIO2 % 32 PH, VENOUS 7.212* PO2, VENOUS mmHg 34 PCO2, VENOUS mmHg 39* O2 SAT, VENOUS % 61 BASE EXCESS, VENOUS mmol/L -11.3* Miscellaneous: Results from last 7 days Lab Units 04/16/21 0635 04/16/21 0330 04/15/21 2324 LACTATE mmol/L 1.0 1.7 2.9* PROCALCITONIN ng/mL 1.18* 1.17* 1.35* TSH uIU/mL -- -- 3.650 HEMOGLOBIN A1C % -- -- 9.0* Microbiology results: No new data since previous note Covid test: Negative EKG:Afib IMAGING Imaging results: XR CHEST [address] [place]. [address] PATIENT NAME: SHIRIN AGUILLON : 1945 GENDER: F EXAM DATE: 04/16/2021 12:17 ORDERED FROM: [facility] ORDERING PHYSICIAN: RADHA WILSON CC: XAVIER JOHNSON -- - - - CONTRAST: READING STATION ID: [id number] mGy: PROCEDURE: XR CHEST 1 VIEW INDICATIONS: Dialysis cath placement TECHNIQUE: One view of the chest was acquired. COMPARISON: [facility], , XR CHEST 1 VIEW, 04/15/2021, 22:39. FINDINGS: Surgical changes and devices: A dialysis catheter extends from left internal jugular approach crossing the midline and then extending vertically into the right atrium area.. Lungs and pleura: Lungs are clear. No pleural effusions or pneumothorax. Mediastinum: Mediastinal contours appear normal. Heart size is normal. Bones and chest wall: No suspicious bony lesions. Overlying soft tissues appear unremarkable. IMPRESSION: Reduced inspiratory volume and when this is taken into account there is no definite acute airspace disease. There is crowding of the bronchovascular markings bilaterally slightly greater at the right lung base than at the left lung base. Dialysis catheter as discussed with tip in the right atrium area. Reviewed by: Raymond Calderón M.D. on 04/16/2021 at 12:48 Approved by: Raymond Calderón M.D. on 04/16/2021 at 12:50 XR [address]ST [address] [place]. [address] PATIENT NAME: SHIRIN AGUILLON : 1945 GENDER: F EXAM DATE: 04/15/2021 22:39 ORDERED FROM: [facility] ORDERING PHYSICIAN: DOE ROWE CC: -- - - - CONTRAST: READING STATION ID: [id number] mGy: PROCEDURE: XR CHEST 1 VIEW INDICATIONS: SHORTNESS OF BREATH TECHNIQUE: One view of the chest was acquired. COMPARISON: [facility], , XR CHEST 2V, 01/14/2021, 11:54. FINDINGS: Surgical changes and devices: None. Lungs and pleura: There is slight low lung volumes with a few linear opacities in the lung bases likely representing atelectasis. No definite consolidation. No pleural effusions or pneumothorax. Mediastinum: Mediastinal contours appear unchanged. Heart size is normal. Bones and chest wall: No suspicious bony lesions. Overlying soft tissues appear unremarkable. IMPRESSION: 1. No acute consolidation. Reviewed by: Osvaldo Bradshaw M.D. on 04/16/2021 at 9:29 Approved by: Osvaldo Bradshaw M.D. on 04/16/2021 at 9:30 Electronically signed by: Vitaly Wild DO 04/16/2021 8:07 AM Portions of today's documentation have been created with the assistance of voice recognition software. Therefore, it may contain anomalous punctuation, anomalous independent misrecognitions, word substitutions, insertions or omissions. Occasional wrong-word or phonetically similar substitutions may also occur, all due to the inherent limitations of voice recognition software. Attempts to correct the above have been made by Vitaly Wild DO but it is recommended that the chart be read carefully to recognize, using context, where the substitutions may have occurred. documented in this encounter H&P Notes Mohsen Fair MD - 05/20/2021 8:35 AM PDT H&P reviewed. The patient was examined and there are no changes to the H&P. ASA:: ASA 3 - Patient with moderate systemic disease with functional limitations Plan: Anesthesia Mallampati: I (soft palate, uvula, fauces, and tonsillar pillars visible) Plan and risks discussed with : patient, Mohsen Patel MD - 05/18/2021 4:22 PM PDT Gastroenterology Consultation Reason for consult: dysphagia Subjective HPI: 75 year old female with history of cholecystectomy in 1985, ventral hernia repair surgery,hypothyroidism, diabetes, rheumatoid arthritis on Xeljanz, hypertension, anticoagulated with Eliquisand plavix Who presents for consultation for dysphagia for the past 1 year. Patient was mated to the hospital on Apr 15, 2021 for weakness and altered mental status With acute kidney injury and hyperkalemia and sepsis in which she was treated with antibiotics. Patient complains of dysphagia to solids only. Patient can drink water okay. Patient also has odynophagia but no history of asthma. Patient's bowel movements currently is one time per day and well formed. Patient currently taking Xeljanz for her rheumatoid arthritis. Patient denies family history colon cancer, IBD or celiac disease. Patient denies rectal bleeding, nausea vomit, hematemesis, change in bowel habits. 07/31/2020- egd/colon- Normal upper endoscopy, status post right hemicolectomy, 2.5 cm solitary ulcerseen in the transverse colon status post biopsy which showed crypt abscesses concerning for possibleCrohn's disease.Biopsies of the duodenum was normal. Biopsy of the small bowel showed acute inflammation with hemorrhage consistent with acute enteritis. Negative for granulomas dysplasia or carcinoma was during the small bowel of the ileum. Patient Active Problem List Diagnosis ??? Seronegative rheumatoid arthritis of multiple sites (CMS/HCC) ??? Osteoarthropathy ??? Type II diabetes mellitus with complication (CMS/HCC) ??? Renal insufficiency ??? Grief ??? Psoriatic arthritis (CMS/HCC) ??? Abdominal pain ??? Functional diarrhea ??? Nausea and vomiting ??? Excessive body weight loss ??? Pressure injury of skin of right calf ??? Unstable angina (CMS/HCC) ??? Dysphagia Past Medical History: Diagnosis Date ??? Abdominal pain ??? Arthritis ??? Arthritis, rheumatoid (CMS/HCC) ??? Chronic diarrhea ??? Delayed emergence from general anesthesia ??? Diabetes (CMS/HCC) ??? Disorder Nearly severed pinky finger ??? Gallbladder disease ??? H/O recurrent pneumonia ??? Hyperlipidemia ??? Hypertension ??? Kidney disease Kidney dysfunction ??? Low back pain ongoing ??? Migraine headache ??? Neuropathy ??? PONV (postoperative nausea and vomiting) ??? Skin cancer ??? Thyroid disease ??? Tubular adenoma Ileocecal valve tubular adenoma ??? UTI (urinary tract infection) ??? Weight loss, non-intentional Past Surgical History: Procedure Laterality Date ??? ABDOMINAL SURGERY ??? APPENDECTOMY 2016 along with colectomy ??? BACK SURGERY Major back surgery ??? CARPAL TUNNEL RELEASE ??? CHOLECYSTECTOMY ??? COLONOSCOPY 2 x ??? LAPAROSCOPIC ASSISSTED TOTAL COLECTOMY W/ J-POUCH Right 04/12/2017 ??? DC COLONOSCOPY W/BIOPSY SINGLE/MULTIPLE N/A 07/31/2020 Procedure: COLONOSCOPY; Surgeon: Mike Laguna MD; Location: [facility] GI; Service: Gastroenterology ??? DC DEBRIDEMENT, SKIN, SUB-Q TISSUE,=<20 SQ CM Bilateral 04/18/2021 Procedure: debridement of bilateral calf wound; Surgeon: Patria Cruz MD; Location: [facility] OR; Service: ENT ??? DC EDG TRANSORAL BIOPSY SINGLE/MULTIPLE N/A 07/31/2020 Procedure: EGD; Surgeon: Mike Laguna MD; Location: [facility] GI; Service: Gastroenterology ??? SHOULDER SURGERY 2008 Shoulder repair ??? SPINAL FUSION Fusion, et al 4 procedures in one 2011 ??? TUBAL LIGATION 1976 Family History Problem Relation Age of Onset ??? Dementia Mother ??? Other Father Respiratory problems ??? Heart disease Sister ??? Breast cancer Sister ??? Cancer Son Social History Socioeconomic History ??? Marital status: Spouse name: Not on file ??? Number of children: Not on file ??? Years of education: Not on file ??? Highest education level: Not on file Occupational History ??? Not on file Tobacco Use ??? Smoking status: Never Smoker ??? Smokeless tobacco: Never Used Substance and Sexual Activity ??? Alcohol use: No Alcohol/week: 0.0 standard drinks ??? Drug use: No ??? Sexual activity: Not Currently Partners: Male control/protection: Surgical Comment: many surgeries over the years....not listed Other Topics Concern ??? Not on file Social History Narrative ??? Not on file Social Determinants of Health Financial Resource Strain: ??? Difficulty of Paying Living Expenses: Food Insecurity: ??? Worried About Running Out of Food in the Last Year: ??? Ran Out of Food in the Last Year: Transportation Needs: ??? Lack of Transportation (Medical): ??? Lack of Transportation (Non-Medical): Physical Activity: ??? Days of Exercise per Week: ??? Minutes of Exercise per Session: Stress: ??? Feeling of Stress : Social Connections: ??? Frequency of Communication with Friends and Family: ??? Frequency of Social Gatherings with Friends and Family: ??? Attends [employer] Services: ??? Active Member of Clubs or Organizations: ??? Attends Club or Organization Meetings: ??? Marital Status: Intimate Partner Violence: ??? Fear of Current or Ex-Partner: ??? Emotionally Abused: ??? Physically Abused: ??? Sexually Abused: Current Facility-Administered Medications: ??? acetaminophen (TYLENOL) suppository 120 mg, 120 mg, rectal, q4h PRN, Redd Trejo MD, 120 mg at 04/21/21 2300 ??? [START ON 05/19/2021] apixaban (ELIQUIS) tablet 5 mg, 5 mg, oral, BID (RT), Iron Lowry DO ??? aspirin chewable tablet 81 mg, 81 mg, oral, Daily, Trent Batista MD, 81 mg at 05/18/21 0853 ??? atorvastatin (LIPITOR) tablet 40 mg, 40 mg, oral, Nightly, Ricardo Griffin DO, 40 mg at 05/17/212058 ??? atropine injection (abboject) 0.5-1 mg, 0.5-1 mg, intravenous, q5 min PRN, Trent Batista MD ??? calcium carbonate (TUMS) chewable tablet 500 mg, 500 mg, oral, TID PRN, Iron Lowry DO, 500 mg at 05/18/21 0007 ??? carvediloL (COREG) tablet 6.25 mg, 6.25 mg, oral, BID with meals, Ricardo Griffin DO, 6.25 mg at 05/18/21 0852 ??? clopidogreL (PLAVIX) tablet 600 mg, 600 mg, oral, Once AND clopidogreL (PLAVIX) tablet 75 mg, 75 mg, oral, Daily, Trent Batista MD, 75 mg at 05/18/21 0853 ??? dextrose 50 % in water (D50W) g injection 12.5-50 g, 12.5-50 g, intravenous, PRN, Xavier Chen MD ??? diazePAM (VALIUM) tablet 2 mg, 2 mg, oral, q12h PRN, Ricardo Griffin DO, 2 mg at 05/18/21 0006 ??? diltiazem CD (CARDIZEM CD) 24 hr capsule 240 mg, 240 mg, oral, Daily, Xavier Johnson MD,240 mg at 05/18/21 0853 ??? diphenhydrAMINE (BENADRYL) capsule 50 mg, 50 mg, oral, q6h PRN, Ricardo Griffin DO, 50 mg at 05/16/212024 ??? flumazeniL (ROMAZICON) injection 0.2 mg, 0.2 mg, intravenous, PRN, Trent Batista MD ??? HYDROcodone-acetaminophen (NORCO) 5-325 mg 1 tablet, 1 tablet, oral, q4h PRN, Ricardo Griffin DO, 1 tablet at 05/18/21 0859 ??? HYDROmorphone (DILAUDID) injection 0.2 mg, 0.2 mg, intravenous, q2h PRN, Iron Lowry DO, 0.2mg at 05/18/21 0031 ??? insulin glargine (LANTUS) injection 6 Units, 6 Units, subcutaneous, Nightly, Ricardo Griffin DO, 6Units at 05/17/212104 ??? insulin lispro injection 0-5 Units, 0-5 Units, subcutaneous, Nightly, Xavier Johnson MD,2 Units at 05/17/212104 ??? insulin lispro injection 0-6 Units, 0-6 Units, subcutaneous, TID with meals, Xavier Johnson MD, 5 Units at 05/18/21 1321 ??? lactobacillus rhamnosus GG (CULTURELLE) 10 billion cell 1 capsule, 1 capsule, oral, Daily, Ricardo Griffin DO, 1 capsule at 05/18/21 0852 ??? levOCARNitine (L-CARNITINE) tablet 500 mg, 500 mg, oral, Daily with dinner, Ricardo Griffin DO, 500 mg at 05/17/212058 ??? levothyroxine (SYNTHROID) tablet 75 mcg, 75 mcg, oral, q AM AC, Ricardo Griffin DO, 75 mcg at 05/18/21 0613 ??? lidocaine (for HOWARD) jelly 1 application, 1 application, Topical, PRN, Ricardo Griffin DO ??? Insert peripheral IV, , , Once AND lidocaine (XYLOCAINE) 10 mg/mL (1 %) injection 1 mL, 1 mL, infiltration, Once PRN AND Maintain IV access, , , Until discontinued AND Saline lock IV, , , Once AND sodium chloride 0.9 % flush 10 mL, 10 mL, intravenous, PRN, Patria Cruz MD ??? Insert peripheral IV, , , Once AND lidocaine (XYLOCAINE) 10 mg/mL (1 %) injection 1 mL, 1 mL, infiltration, Once PRN AND Maintain IV access, , , Until discontinued AND Saline lock IV, , , Once AND sodium chloride 0.9 % flush 10 mL, 10 mL, intravenous, PRN, Patria Cruz MD ??? Insert peripheral IV, , , Once AND lidocaine (XYLOCAINE) 10 mg/mL (1 %) injection 1 mL, 1 mL, infiltration, Once PRN AND Maintain IV access, , , Until discontinued AND Saline lock IV, , , Once AND sodium chloride 0.9 % flush 10 mL, 10 mL, intravenous, PRN, Patria Cruz MD ??? Insert peripheral IV, , , Once AND lidocaine (XYLOCAINE) 10 mg/mL (1 %) injection 1 mL, 1 mL, infiltration, Once PRN AND Maintain IV access, , , Until discontinued AND Saline lock IV, , , Once AND sodium chloride 0.9 % flush 10 mL, 10 mL, intravenous, PRN, Nikko Tan MD ??? magnesium chloride (SLOW-MAG) tablet 71.5 mg, 1 tablet, oral, Daily with breakfast, Ricardo Griffin DO, 71.5 mg at 05/18/21 0852 ??? miconazole (MICOTIN) 2 % powder, , Topical, BID, Patria Cruz MD, 1 application at 05/18/21 0859 ??? naloxone (NARCAN) injection 0.04 mg, 0.04 mg, intravenous, PRN, Patria Cruz MD ??? naloxone (NARCAN) injection 0.4 mg, 0.4 mg, intravenous, PRN, Trent Batista MD ??? nitroglycerin (NITROSTAT) SL tablet 0.4 mg, 0.4 mg, sublingual, q5 min PRN, Iron Lowry DO, 0.4 mg at 05/15/21 1340 ??? ondansetron (ZOFRAN) 4 mg/5 mL solution 4 mg, 4 mg, oral, q8h PRN, Ricardo Griffin DO ??? ondansetron (ZOFRAN) injection 4 mg, 4 mg, intravenous, q8h PRN, Ricardo Griffin DO, 4 mg at 05/18/21 1336 ??? ondansetron ODT (ZOFRAN-ODT) disintegrating tablet 4 mg, 4 mg, oral, q8h PRN, Ricardo Griffin DO, 4 mg at 05/18/21 1230 ??? ondansetron ODT (ZOFRAN-ODT) disintegrating tablet 4 mg, 4 mg, oral, Once, Iron Lowry DO ??? pantoprazole (PROTONIX) EC tablet 40 mg, 40 mg, oral, q AM AC, Xavier Johnson MD, 40 mg at 05/18/21 0612 ??? predniSONE (DELTASONE) tablet 5 mg, 5 mg, oral, Daily, Xavier Johnson MD, 5 mg at 05/18/21 0852 ??? promethazine (PHENERGAN) 6.25 mg in sodium chloride (NS) 0.9 % 50 mL (0.125 mg/mL) IVPB, 6.25 mg, intravenous, q6h PRN, Ricardo Griffin DO, Stopped at 05/14/212009 ??? senna (SENOKOT) tablet 8.6 mg, 1 tablet, oral, BID, Ricardo Griffin DO, 8.6 mg at 05/17/212099 ??? sertraline (ZOLOFT) tablet 25 mg, 25 mg, oral, Nightly, Ricardo Griffin DO, 25 mg at 05/17/212099 ??? [COMPLETED] Prepare/Crossmatch RBC: 1 Units, , , Once AND [COMPLETED] Transfuse RBC: 1 Units, , intravenous, Transfusion AND [COMPLETED] Nursing communication: Ensure provider has obtainedInformed Consent for Blood Transfusion, , , Once AND Vital Signs, , , PRN AND sodium chloride (NS) 0.9 % infusion 250 mL, 250 mL, intravenous, PRN AND [COMPLETED] Nursing Communication: Transfusion Reaction Management, , , Once, Ana Maria Narvaez MD ??? sodium chloride 0.9 % flush 20 mL, 20 mL, intravenous, PRN, Patria Cruz MD ??? sulfaSALAzine (AZULFIDINE) tablet 1,000 mg, 1,000 mg, oral, BID, Ricardo Griffin DO, 1,000 mg at 05/18/21 0852 Allergies Allergen Reactions ??? Bactrim [Sulfamethoxazole-Trimethoprim] Swelling ??? Betadine [Povidone-Iodine] ??? Fish Derived ??? Iodine ??? Other [place] products ??? Shellfish Containing Products Review of Systems The following portions of the patient's history were reviewed and updated as appropriate: allergies,current medications, past family history, past medical history, past social history, past surgical history and problem list. Review of Systems A comprehensive review of systems was negative except for: Gastrointestinal: positive for dysphagia. Objective BP 122/77 (BP Location: Right arm, Patient Position: Sitting) Pulse 100 Temp 36.5 ??C (97.7 ??F) (Oral) Resp 18 Ht 1.524 m Wt 73.3 kg SpO2 97% BMI 31.56 kg/m?? @FSRXLABELPATIENTWEIGHT@ Body mass index is 31.56 kg/m??. Physical Exam BP 122/77 (BP Location: Right arm, Patient Position: Sitting) Pulse 100 Temp 36.5 ??C (97.7 ??F) (Oral) Resp 18 Ht 1.524 m Wt 73.3 kg SpO2 97% BMI 31.56 kg/m?? General Appearance: Alert, cooperative, no distress, appears stated age Head: Normocephalic, without obvious abnormality, atraumatic Eyes: PERRL, conjunctiva/corneas clear, EOM's intact, fundi benign, both eyes Ears: Normal TM's and external ear canals, both ears Nose: Nares normal, septum midline,mucosa normal, no drainage or sinus tenderness Throat: Lips, mucosa, and tongue normal; teeth and gums normal Neck: Supple, symmetrical, trachea midline, no adenopathy; thyroid: not enlarged, symmetric, no tenderness/mass/nodules; no carotid bruit or JVD Back: Symmetric, no curvature, ROM normal, no CVA tenderness Lungs: Clear to auscultation bilaterally, respirations unlabored Breasts: No masses or tenderness Heart: Regular rate and rhythm, S1 and S2 normal, no murmur, rub, or gallop Abdomen: Soft, non-tender, bowel sounds active all four quadrants, no masses, no organomegaly Pelvic: Deferred Extremities: Extremities normal, atraumatic, no cyanosis or edema Pulses: 2+ and symmetric Skin: Skin color, texture, turgor normal, no rashes or lesions Lymph nodes: Cervical, supraclavicular, and axillary nodes normal Neurologic: Normal No components found for: CBC] No components found for: CMP] No results displayed because visit has over 200 results. Lab on 09/10/2020 Component Date Value Ref Range Status ??? Sodium 09/10/2020 138 134 - 144 mmol/L Final ??? Potassium 09/10/2020 4.0 3.5 - 5.2 mmol/L Final ??? Chloride 09/10/2020 99 97 - 108 mmol/L Final ??? CO2 09/10/2020 29 18 - 29 mmol/L Final ??? Anion Gap 09/10/2020 10 3 - 11 mmol/L Final ??? BUN 09/10/2020 32.0* 8.0 - 27.0 mg/dL Final ??? Creatinine 09/10/2020 0.95 0.57 - 1.00 mg/dL Final ??? Glucose, Serum 09/10/2020 182* 65 - 99 mg/dL Final ??? Calcium 09/10/2020 8.7 8.5 - 10.1 mg/dL Final ??? AST 09/10/2020 18 0 - 50 U/L Final ??? ALT 09/10/2020 32 0 - 32 U/L Final ??? Alkaline Phosphatase 09/10/2020 117 25 - 165 U/L Final ??? Total Protein 09/10/2020 5.5* 6.4 - 8.4 g/dL Final ??? eGFR (CKD-EPI) 09/10/2020 60* >60 (CKD-EPI) mL/min/1.73 m2 Final ??? Albumin 09/10/2020 3.2* 3.4 - 5.0 g/dL Final ??? Bilirubin, Total 09/10/2020 0.4 <=1.2 mg/dL Final ??? BUN/Creatinine Ratio 09/10/2020 33.7* 7.0 - 24.0 Final ??? CRP (mg/dL) 09/10/2020 3.8* <=0.5 mg/dL Final ??? Sed Rate 09/10/2020 10 <=40 mm/hr Final ??? Brock 09/10/2020 35 0 - 50 units Final Negative <45 Equivocal 45 - 50 Positive >50 ??? ACCA 09/10/2020 7 0 - 90 units Final Negative <80 Equivocal 80 - 90 Positive >90 ??? ALCA 09/10/2020 7 0 - 60 units Final Negative <55 Equivocal 55 - 60 Positive >60 ??? Mannobioside Ab.IgG 09/10/2020 4 0 - 100 units Final Negative < 90 Equivocal 90 - 100 Positive >100 This test was developed and its performance characteristics determined by [facility]. It has not been cleared or approved by the Food and Drug Administration. The FDA has determined that such clearance or approval is not necessary. ??? Atypical P-ANCA 09/10/2020 Negative Negative Final ??? Comments 09/10/2020 Comment Final Pattern is not suggestive of Inflammatory Bowel Disease ??? Deaminated Gliadin Ab, IgA 09/10/2020 2 0 - 19 units Final Negative 0 - 19 Weak Positive 20 - 30 Moderate to Strong Positive >30 ??? Deaminated Gliadin Ab, IgG 09/10/2020 <1 0 - 19 units Final Negative 0 - 19 Weak Positive 20 - 30 Moderate to Strong Positive >30 ??? Tissue Transglutaminase Ab, IgA 09/10/2020 <2 0 - 3 U/mL Final Negative 0 - 3 Weak Positive 4 - 10 Positive >10 Tissue Transglutaminase (tTG) has been identified as the endomysial antigen. Studies have demonstr- ated that endomysial IgA antibodies have over 99% specificity for gluten sensitive enteropathy. ??? Endomysial Antibody, IgA 09/10/2020 Negative Negative Final ??? WBC Auto 09/10/2020 11.0* 3.8 - 10.1 x10e3/uL Final ??? RBC 09/10/2020 4.57 3.90 - 5.20 x10e6/uL Final ??? Hemoglobin 09/10/2020 13.6 12.0 - 15.6 g/dL Final ??? Hematocrit 09/10/2020 43.4 35.0 - 46.0 % Final ??? MCV 09/10/2020 95 81 - 100 fL Final ??? MCH 09/10/2020 29.8 27.0 - 35.0 pg Final ??? MCHC 09/10/2020 31.3* 32.0 - 37.0 g/dL Final ??? RDW 09/10/2020 17.7* 12.3 - 15.4 % Final ??? Platelets 09/10/2020 114* 150 - 400 x10e3/uL Final ??? MPV 09/10/2020 12.6* 7.4 - 10.4 fL Final ??? NRBC % 09/10/2020 0 0 /100 WBCs Final ??? Abs. NRBC 09/10/2020 0.0 x10e3/uL Final ??? % Neutrophils 09/10/2020 90 % Final ??? % Lymphocytes 09/10/2020 4 % Final ??? % Monocytes 09/10/2020 5 % Final ??? % Eosinophils 09/10/2020 0 % Final ??? % Basophils 09/10/2020 0 % Final ??? Abs. Neutrophils 09/10/2020 9.9* 1.6 - 6.9 x10e3/uL Final ??? Abs. Lymphocytes 09/10/2020 0.4* 1.1 - 4.8 x10e3/uL Final ??? Abs. Monocytes 09/10/2020 0.5 0.0 - 1.0 x10e3/uL Final ??? Abs. Eosinophils 09/10/2020 0.0 0.0 - 0.5 x10e3/uL Final ??? Abs. Basophils 09/10/2020 0.0 0.0 - 0.4 x10e3/uL Final ??? Abs. Neutrophils (Auto) 09/10/2020 9,900.0* 1,600.0-6,900.0 /uL Final Appointment on 08/03/2020 Component Date Value Ref Range Status ??? Sodium 08/03/2020 134 134 - 144 mmol/L Final ??? Potassium 08/03/2020 4.2 3.5 - 5.2 mmol/L Final ??? Chloride 08/03/2020 97 97 - 108 mmol/L Final ??? CO2 08/03/2020 22 18 - 29 mmol/L Final ??? Anion Gap 08/03/2020 15* 3 - 11 mmol/L Final ??? BUN 08/03/2020 33.0* 8.0 - 27.0 mg/dL Final ??? Creatinine 08/03/2020 1.23* 0.57 - 1.00 mg/dL Final ??? Glucose, Serum 08/03/2020 245* 65 - 99 mg/dL Final ??? Calcium 08/03/2020 9.5 8.5 - 10.1 mg/dL Final ??? AST 08/03/2020 20 0 - 50 U/L Final ??? ALT 08/03/2020 19 0 - 32 U/L Final ??? Alkaline Phosphatase 08/03/2020 98 25 - 165 U/L Final ??? Total Protein 08/03/2020 6.0* 6.4 - 8.4 g/dL Final ??? eGFR (CKD-EPI) 08/03/2020 44* >60 (CKD-EPI) mL/min/1.73 m2 Final ??? Albumin 08/03/2020 3.5 3.4 - 5.0 g/dL Final ??? Bilirubin, Total 08/03/2020 0.3 <=1.2 mg/dL Final ??? BUN/Creatinine Ratio 08/03/2020 26.8* 7.0 - 24.0 Final ??? WBC Auto 08/03/2020 12.7* 3.8 - 10.1 x10e3/uL Final ??? RBC 08/03/2020 4.50 3.90 - 5.20 x10e6/uL Final ??? Hemoglobin 08/03/2020 13.6 12.0 - 15.6 g/dL Final ??? Hematocrit 08/03/2020 41.5 35.0 - 46.0 % Final ??? MCV 08/03/2020 92 81 - 100 fL Final ??? MCH 08/03/2020 30.2 27.0 - 35.0 pg Final ??? MCHC 08/03/2020 32.8 32.0 - 37.0 g/dL Final ??? RDW 08/03/2020 14.7 12.3 - 15.4 % Final ??? Platelets 08/03/2020 468* 150 - 400 x10e3/uL Final ??? MPV 08/03/2020 11.5* 7.4 - 10.4 fL Final ??? NRBC % 08/03/2020 0 0 /100 WBCs Final ??? Abs. NRBC 08/03/2020 0.0 x10e3/uL Final ??? % Neutrophils 08/03/2020 88 % Final ??? % Lymphocytes 08/03/2020 5 % Final ??? % Monocytes 08/03/2020 7 % Final ??? % Eosinophils 08/03/2020 0 % Final ??? % Basophils 08/03/2020 0 % Final ??? Abs. Neutrophils 08/03/2020 11.2* 1.6 - 6.9 x10e3/uL Final ??? Abs. Lymphocytes 08/03/2020 0.6* 1.1 - 4.8 x10e3/uL Final ??? Abs. Monocytes 08/03/2020 0.8 0.0 - 1.0 x10e3/uL Final ??? Abs. Eosinophils 08/03/2020 0.0 0.0 - 0.5 x10e3/uL Final ??? Abs. Basophils 08/03/2020 0.0 0.0 - 0.4 x10e3/uL Final ??? Abs. Neutrophils (Auto) 08/03/2020 11,200.0* 1,600.0-6,900.0 /uL Final Admission on 07/31/2020, Discharged on 07/31/2020 Component Date Value Ref Range Status ??? POCT Glucose, Blood 07/31/2020 197* 65 - 99 mg/dL Final ??? POCT Glucose Test Comment 07/31/2020 Note: Reference Ranges revised September 24, 2019. Final ??? Pathology Final Diagnosis 07/31/2020 SEE DETAILS Final Comment: Patient: SHIRIN AGUILLON Case: [id number] Result ID: [id number] Ordering Provider: MIKE LAGUNA M.D. Collected Date: 07/31/20 Clinical History: Abdominal pain, functional diarrhea, nausea and vomiting, excessive body weight loss. FINAL DIAGNOSIS 1. DUODENUM, BIOPSY: A. Duodenal mucosa with no diagnostic alterations. B. Negative for celiac sprue. C. Negative for dysplasia or carcinoma. 2. ILEUM, SMALL BOWEL ENTERITIS, BIOPSIES: A. Acute inflammation with hemorrhage and reactive changes consistent with acute enteritis. B. Negative for granuloma formation, dysplasia or carcinoma. 3. PROXIMAL TRANSVERSE COLON ULCER, BIOPSY: A. Fragments of colonic mucosa showing acute inflammation, crypt abscess formation and reactive glandular changes. B. Negative for significant chronic inflammation, basal plasmacytosis or glandular branching. COMMENT: Part 2 and 3 showed acute inflammation with reactive changes without significant chronic inflammation. These finding can be see in acute self limiting colitis or drug induced colitis however early inflammatory bowel disease cannot be definitively ruled out. Recommend clinical and endoscopic correlation. Dane Herrera MD Pathologist 08/03/20 16:31 GROSS DESCRIPTION: 1. Three received in formalin labeled Shirin Aguillon. Designated duodenum are three apparent tissue fragments measuring 0.2-0.4 cm. Filtered into cassette 1. 2. Designated ileum are multiple tissue fragments ranging in size from 0.2-0.3 cm. Filtered into cassette 2. 3. Designated transverse colon are three apparent tissue fragments measuring 0.2-0.3 cm. Filtered into cassette 3. (BJR/kk) MICROSCOPIC DESCRIPTION 1. In compliance with [facility] regulations, the pathologist s signature on this report indicates thatthe case has been personally reviewed by the pathologist. Microscopic examination was used to arrive at the diagnosis unless indicated otherwise. 2. Small bowel/ileum biopsies show acute inflammation with cryptitis, edema, hemorrhage, and reactive changes. No significant chronic inflammation, basal plasmacytosis and crypt abscesses are identified. 3. Sections show fragments of colonic mucosa with acute inflammation of the lamina propria, crypt abscess formation and reactive glandular changes. No significant chronic inflammation with basal cellplasmacytosis is noted. (DG/chayito) [facility] [address], [place] [address] - [phone] CLIA: [id number] End of Report ??? Campylobacter Sp, stool PCR 07/31/2020 Not Detected Not Detected Final ??? C. diff PCR Toxins A+B, stool 07/31/2020 Not Detected Not Detected Final Negative results for C. difficile PCR indicates no presence of C. difficile.?? Patient does NOT need to be in Enteric Precautions and NO treatment is necessary. Two distinct groups have been identified that can harbor C. difficile asymptomatically at very high rates. Colonization at rates up to 50% and higher have been reported in infants and rates up to 25% in cystic fibrosis patients. The association of C difficile with disease in infants under the age of 3 years is not well understood therefore results are not reported. PCR testing alone cannot distinquish C. difficile disease from a carrier state, and therefore correlation with clinical findings is required. ??? C. diff PCR Reflex to EIA 07/31/2020 No Final ??? Plesiomonas shigelloides, stool PCR 07/31/2020 Not Detected Not Detected Final ??? Salmonella species, stool PCR 07/31/2020 Not Detected Not Detected Final ??? Vibrio (parahaemolyticus,vulnificu* 07/31/2020 Not Detected Not Detected Final ??? Vibrio cholerae, stool PCR 07/31/2020 Not Detected Not Detected Final ??? Yersinia enterocolitica, stool PCR 07/31/2020 Not Detected Not Detected Final ??? E. coli (EAEC) Enteroaggregative p* 07/31/2020 Not Detected Not Detected Final ??? E. coli (EPEC) Enteropathogenic ea* 07/31/2020 Not Detected Not Detected Final ??? E. coli (ETEC)Enterotoxigenic ltA+* 07/31/2020 Not Detected Not Detected Final ??? E.coli (STEC) Shiga-like toxin stx* 07/31/2020 Not Detected Not Detected Final ??? Shigella/Ecoli (EIEC)Enteroinvasiv* 07/31/2020 Not Detected Not Detected Final ??? Cryptosporidium, stool PCR 07/31/2020 Not Detected Not Detected Final ??? Cyclospora cayetanensis, stool PCR 07/31/2020 Not Detected Not Detected Final ??? Entamoeba histolytica, stool PCR 07/31/2020 Not Detected Not Detected Final ??? Giardia lamblia, stool PCR 07/31/2020 Not Detected Not Detected Final ??? Adenovirus F 40/41, stool PCR 07/31/2020 Not Detected Not Detected Final ??? Astrovirus subtypes 1-8, stool PCR 07/31/2020 Not Detected Not Detected Final ??? Norovirus I + II, stool PCR 07/31/2020 Not Detected Not Detected Final ??? Rotavirus A, stool PCR 07/31/2020 Not Detected Not Detected Final ??? Sapovirus (I, II, IV, V), stool PCR 07/31/2020 Not Detected Not Detected Final Clinical Support on 07/28/2020 Component Date Value Ref Range Status ??? SARS-CoV-2 (COVID-19) Qual PCR 07/28/2020 Not Detected Not Detected Final Comment: Performed using high-throughput nucleic acid amplification platforms at [facility] using either TaqPath COVID-19 Combo Kit assay or Quidel Emily SARS-CoV-2 assay, both FDA-cleared Emergency Use Authorization (EUA) assays (details available upon request). TaqPath COVID-19 Combo Kit assay was validated by [employer] using nasopharyngeal swab, nasopharyngeal aspirate, and bronchoalveolar lavage samples, and Quidel Emily SARS-CoV-2 assay was validated by [employer] using nasopharyngeal and oropharyngeal swab samples. Other sample types have not been independently validated by [facility] but information on preferred and acceptable collection sites and collection procedures may be obtained at the CDC website (https://www.cdc.gov/co ronavirus/2019-ncov/lab/cnwatgyhjn-cbqshvxm-cftwfwmai.html), which is updated frequently. Negative results do not preclude infection with SARS-CoV-2 virus and should not be the sole basis of a patient management decision. In some patients repeat testing at various time points or from various collection sites may be necessary for virus detection. False-negative results may arise from improper sample collection, degradation of viral RNA during shipping or storage, the presence of RT-PCR inhibitors, and/or mutation in the SARS-CoV-2 virus. Pooled testing may be used for some specimens. Pooled testing been has been validated at [facility] with oversight by [facility] Department of Health, using no greater than four specimens per pool. Negative results from pools are reported directly while positive results are reflexed to neat (unpooled) testing of individual specimens. [facility] validation studies demonstrated minimal effect on sensitivity with this level of pooling. The impact of vaccines, antiviral therapeutics, antibiotics, and chemotherapeutic or immunosuppressant drugs on assay performance has not been evaluated. Please see [facility] website for updated testing algorithms and other information. Performed at [facility] - CLIA #:[id number], [address] Abstract on 07/27/2020 Component Date Value Ref Range Status ??? External LDL Cholesterol 06/26/2020 48 mg/dL Final ] Assessment/Plan 75 year old female with history of cholecystectomy in 1985, ventral hernia repair surgery,hypothyroidism, diabetes, rheumatoid arthritis on Xeljanz, hypertension, anticoagulated with Eliquisand plavix Who presents for consultation for dysphagia for the past 1 year. Patient was mated to the hospital on Apr 15, 2021 for weakness and altered mental status With acute kidney injury and hyperkalemia and sepsis in which she was treated with antibiotics. Patient complains of dysphagia to solids only. Patient can drink water okay. Patient also has odynophagia but no history of asthma. Patient's bowel movements currently is one time per day and well formed. Patient currently taking Xeljanz for her rheumatoid arthritis. Patient denies family history colon cancer, IBD or celiac disease. Patient denies rectal bleeding, nausea vomit, hematemesis, change in bowel habits. 07/31/2020- egd/colon- Normal upper endoscopy, status post right hemicolectomy, 2.5 cm solitary ulcerseen in the transverse colon status post biopsy which showed crypt abscesses concerning for possibleCrohn's disease.Biopsies of the duodenum was normal. Biopsy of the small bowel showed acute inflammation with hemorrhage consistent with acute enteritis. Negative for granulomas dysplasia or carcinoma was during the small bowel of the ileum. At this time, I do recommend upper endoscopy with anesthesia for the patient's dysphagia and odynophagia. Differential diagnosis includes infection versus candidiasis which is very high due to the patient is on immunosuppression with Xeljanz versus stricture versus malignancy versus Schatzki's ring versus eosinophilic esophagitis. Given the fact that the patient is on both Plavix and Eliquis, I recommend holding both at this point in time. The patient's upper endoscopy will be tentatively scheduled for this coming due to the anticoagulation. N.p.o. at midnight prior to day of egd. Recs: 1) egd mac 2) hold all anticoagulation if possible 3) goal inr <1.5 prior to egd Will follow Mohsen Fair MD 05/18/2021 4:22 PM Patria Yan MD - 04/17/2021 1:55 PM PDT Images from the original note were not included. Surgery History and Physical Agree with evaluation. Discussed with . Plan debridement tomorrow after Eliquis dosing given Monday PRIMARY CARE PROVIDER: Rogelio Braga MD CHIEF COMPLAINT: Chief Complaint Patient presents with ??? Altered Mental Status ??? Shortness of Breath HISTORY OF PRESENT ILLNESS: Patient is a 75-year-old female who was admitted to [facility] on 04/15/2021 after she presented with altered mental status and was found to be in acute kidney injury with hyperkalemia. Shewas admitted for sepsis, and is currently receiving hemodialysis for acute kidney injury and acute tubular necrosis. General surgery was consulted for evaluation of chronic nonhealing wounds to bilateral lower extremities. The patient's is present today and provides most of history. He states that he believes wounds have been present for about a year. She has been followed by [facility] wound care clinic as an outpatient, and he states they have attempted to perform several bedside debridements, however wounds have not seemed to improve over the past few months. He denies she has ever had wounds to her bilateral lower extremities in the past. He does note that she has a follow-up appointment on the with dermatology, as they have been suspicious she may have pyoderma gangrenosum Past medical history significant for type 2 diabetes, inflammatory bowel disease on sulfasalazine, rheumatoid arthritis for which the patient is on prednisone therapy, atrial fibrillation, anticoagulated on Eliquis, hyperlipidemia, hypertension neuropathy, history of tubular adenoma Past surgical history significant for appendectomy, cholecystectomy, total colectomy with J-pouch, spinal fusion, tubal ligation PAST MEDICAL HISTORY: Past Medical History: Diagnosis Date ??? Abdominal pain ??? Arthritis ??? Arthritis, rheumatoid (CMS/HCC) ??? Chronic diarrhea ??? Delayed emergence from general anesthesia ??? Diabetes (CMS/HCC) ??? Disorder Nearly severed pinky finger ??? Gallbladder disease ??? H/O recurrent pneumonia ??? Hyperlipidemia ??? Hypertension ??? Kidney disease Kidney dysfunction ??? Low back pain ongoing ??? Migraine headache ??? Neuropathy ??? PONV (postoperative nausea and vomiting) ??? Skin cancer ??? Thyroid disease ??? Tubular adenoma Ileocecal valve tubular adenoma ??? UTI (urinary tract infection) ??? Weight loss, non-intentional PAST SURGICAL HISTORY: Past Surgical History: Procedure Laterality Date ??? ABDOMINAL SURGERY ??? APPENDECTOMY 2016 along with colectomy ??? BACK SURGERY Major back surgery ??? CARPAL TUNNEL RELEASE ??? CHOLECYSTECTOMY ??? COLONOSCOPY 2 x ??? LAPAROSCOPIC ASSISSTED TOTAL COLECTOMY W/ J-POUCH Right 04/12/2017 ??? DC COLONOSCOPY W/BIOPSY SINGLE/MULTIPLE N/A 07/31/2020 Procedure: COLONOSCOPY; Surgeon: Mike Laguna MD; Location: [facility]; Service: Gastroenterology ??? DC EDG TRANSORAL BIOPSY SINGLE/MULTIPLE N/A 07/31/2020 Procedure: EGD; Surgeon: Mike Laguna MD; Location: [facility]; Service: Gastroenterology ??? SHOULDER SURGERY 2008 Shoulder repair ??? SPINAL FUSION Fusion, et al 4 procedures in one 2011 ??? TUBAL LIGATION 1976 ALLERGIES: Bactrim [sulfamethoxazole-trimethoprim], Betadine [povidone-iodine], Fish derived, Iodine, Other, and Shellfish containing products MEDICATIONS: Scheduled Meds:[Held by provider] atorvastatin, 10 mg, oral, Nightly cefepime, 1 g, intravenous, q24h dextrose 50% (D50W), 25 g, intravenous, Once heparin (porcine), 1-4 mL, intra-catheter, Once heparin (porcine), 1-4 mL, intra-catheter, Once hydrocortisone sodium succinate, 50 mg, intravenous, q8h SUELLEN [Held by provider] levothyroxine, 75 mcg, oral, Daily pantoprazole, 40 mg, intravenous, q12h REGULAR INSULIN, 0-6 Units, subcutaneous, q6h Continuous Infusions:D5 % and 0.9 % sodium chloride, 75 mL/hr, Last Rate: 75 mL/hr (04/17/21 0823) norepinephrine, 0.5-20 mcg/min, Last Rate: Stopped (04/16/21 175) PRN Meds:.Insert peripheral IV AND lidocaine AND Maintain IV access AND Saline lock IV AND sodium chloride ??? Insert peripheral IV AND lidocaine AND Maintain IV access AND Saline lock IV AND sodium chloride ??? Insert peripheral IV AND lidocaine AND Maintain IV access AND Saline lock IV AND sodium chloride ??? LORazepam ??? morphine ??? naloxone ??? [COMPLETED] Prepare/Crossmatch RBC: 1 Units AND [COMPLETED] Transfuse RBC: 1 Units AND [COMPLETED] Nursing communication: Ensure provider has obtained Informed Consent for Blood Transfusion AND Vital Signs AND sodium chloride AND [COMPLETED] Nursing Communication: Transfusion Reaction Management ??? sodium chloride ??? sodium chloride SOCIAL HISTORY: reports that she has never smoked. She has never used smokeless tobacco. She reports that she doesnot drink alcohol and does not use drugs.. [facility] RE[facility] OF SYSTEMS: A comprehensive 14-point review of systems was negative except for: Review of Systems PHYSICAL EXAM: BP 159/62 (BP Location: Right arm, Patient Position: Lying) Pulse 92 Temp 37 ??C (98.6 ??F) (Axillary) Resp 21 Ht 1.524 m Wt 72.4 kg SpO2 100% BMI 31.17 kg/m?? @FLOWAMB(14)@ Physical Exam Constitutional: General: She is not in acute distress. HENT: Head: Normocephalic and atraumatic. Cardiovascular: Rate and Rhythm: Normal rate. Pulmonary: Effort: Pulmonary effort is normal. No respiratory distress. Abdominal: Palpations: Abdomen is soft. Skin: General: Skin is warm. Neurological: Mental Status: She is alert. Mental status is at baseline. Psychiatric: Attention and Perception: She is attentive. Mood and Affect: Affect is labile. Affect is not angry or inappropriate. LABORATORY DATA: Results from last 7 days Lab Units 04/17/21 0443 04/16/21 1429 04/16/21 0850 04/16/21 0635 04/16/21 0330 04/15/21 2324 WBC AUTO x10e3/uL 13.1* -- 14.7* -- -- 14.4* HEMOGLOBIN g/dL 8.0* 8.8* 8.8* 8.7* 6.6* 8.0* HEMATOCRIT % 25.3* 27.3* 28.7* -- -- 26.6* PLATELETS AUTO x10e3/uL 277 -- 316 -- -- 383 Results from last 7 days Lab Units 04/17/21 0443 04/16/21 0635 04/15/21 2324 CO2 mmol/L 26 -- 14* BUN mg/dL 62.0* -- 131.0* CREATININE mg/dL 2.58* -- 4.84* GLUCOSE mg/dL 63* -- 107* CALCIUM, SERUM mg/dL 7.2* -- 8.2* MAGNESIUM mg/dL -- -- 2.2 PHOSPHORUS mg/dL -- 9.9* -- ALBUMIN g/dL 2.8* -- 3.2* AST U/L 24 -- 22 IMAGIN02/12/2021 ultrasound arterial lower extremity Doppler bilateral: Focal interval elevation in velocity in the left distal SFA consistent with a greater than 50 percent stenosis at this location. 02/12/2021 ultrasound venous reflux Doppler bilateral:No evidence of reflux in the lower extremities bilaterally. ASSESSMENT: 1.The patient is a 75 y.o. female with chronic, nonhealing wounds to bilateral lower extremities,to Right posterior calf and Left Posterolateral calf 2. CAMILLE with hyperkalemia, patient is currently on dialysis today. nephrology is following 3. GI bleed, gastroenterology was consulted, patient has received a total of 1 units PRBCs during this hospitalization 4. Atrial fibrillation, anticoagulated on Eliquis, last dose of Eliquis 04/16/2021. Other chronic conditions: 1. Type 2 diabetes 2. On prednisone for inflammatory bowel disease and rheumatoid arthritis 3. Hypertension 4. Status post total colectomy with J-pouch 5. Status post spinal fusion 6. Status post appendectomy 7. Status post cholecystectomy PLAN/RECOMMENDATIONS: Eliquis was held starting today, last dose of Eliquis was 04/16/2021 N.p.o. midnight OR tomorrow for debridement of nonhealing wounds to bilateral lower extremities Remainder of care per primary team Electronically signed by NEGRITA Reynolds 04/17/2021 1:55 PM Ana Maria Narvaez MD - 04/16/2021 1:42 AM PDT [facility] History and Physical Inpatient Primary Care [facility] Patient Name: Shirin Aguillon Date of : 1945 Age: 75 y.o. Code Status: Prior Primary Care Physician: Rogelio Braga MD Admitting Provider: Ana Maria Narvaez MD Attending Provider: Ana Maria Narvaez MD Admit Date: 04/16/2021 Date of Service: 04/16/2021 Hospital Day: 0 Assessment and Plan Shirin Aguillon is a 75 y.o. female's past medical history is significant for history of DVT on Eliquis anticoagulation, type 2 diabetes, obesity, rheumatoid arthritis, inflammatory bowel disease whopresents with increased weakness and fatigue found to have CAMILLE and hyperkalemia. Sepsis, acute, present on admission -Meets criteria with leukocytosis and tachycardia of 106 -Urine analysis shows UTI so suspect as source -Patient has elevated procalcitonin of 1.35 and lactic acid of 2.9 -Blood cultures x2 -Chest x-ray shows no infiltrates -Continue with IV cefepime and IV vancomycin as initiated in ER CAMILLE with hyperkalemia, acute, present on admission -Hyperkalemia protocol ordered -Lokelma 3 times daily -Appreciate nephrology consult who recommended CT KUB routine -Check potassium levels every 2 hours x4 order -IV sodium bicarbonate drip -Check stat VBG UTI, acute, present on admission -Await urine culture and sensitivities -Broad-spectrum coverage with IV cefepime and IV vancomycin Lactic acidosis, acute, present on admission -Lactic acid every 2 hours until normal -IV fluid hydration Possible GI bleed, acute, present on admission -Consider GI consult in a.m. -N.p.o., IV fluids -Type and screen -Iron profile ordered -Hemoglobin hematocrit every 4 hours x3 -IV Protonix 40 mg every 12 hours -Hold anticoagulation Prednisone therapy for inflammatory bowel disease and rheumatoid arthritis, present on admission - will cover with IV hydrocortisone stress dose of 50 mg every 8 hours Type 2 diabetes, chronic, present on admission -Placed on subcu insulin protocol -Check hemoglobin A1c VTE Prophylaxis Anticoagulation contraindicated due toPossible GI bleed. Tobacco Dependence Never smoked. Code Status: Full code. -Acetaminophen as needed for mild pain/fever/headache -Antiemetic as needed -Bowel regimen as needed -Opioid analgesia as needed for moderate to severe pain uncontrolled by other means Patient Status Patient's expected length of stay: Greater than two midnights Patient is under Inpatient status due to severity of presenting symptoms, complexity of treatment plan, and risk of adverse event. Functional status prior to admission: Ambulates with a device. Functional expectation at discharge (including NSOC): Ambulates with a device. How will the patient get home from the hospital?: To be determined Are there any known barriers to discharge on admission?: None known Subjective/Other History Chief Complaint Patient presents with ??? Altered Mental Status ??? Shortness of Breath Source of History: spouse, chart review and the patient. History of Present Illness Shirin Aguillon is a 75 y.o. female whose past medical history is significant for history of DVT with Eliquis anticoagulation, type 2 diabetes, hypertension hyperlipidemia history of rheumatoid arthritis, inflammatory bowel disease who currently is on prednisone therapy who presents with increasing weakness confusion and found to have CAMILLE with BUN of 131 with creatinine of 4.84. Calculated GFR is 8. Previous in her chart from care everywhere showed GFR of 51 and BUN 33 creatinine 1.08 in November 2020. Patient also found to have lactic acid of 2.9 procalcitonin of 135 WBC of 14.4. Hemoglobin noted to be 8.0 with an MCV of 78 and heme positive brown stool from rectal vault per ER MD. Urine analysis is consistent with UTI. Patient was found to have a potassium of 6.8 with a bicarb of 14. Sodium was 130. Review of Systems A comprehensive review of systems was conducted and found to be negative, except as above in the History of Present Illness. Allergies Allergies Allergen Reactions ??? Bactrim [Sulfamethoxazole-Trimethoprim] Swelling ??? Betadine [Povidone-Iodine] ??? Fish Derived ??? Iodine ??? Other [place] products ??? Shellfish Containing Products Current Medications No current facility-administered medications on file prior to encounter. Current Outpatient Medications on File Prior to Encounter Medication Sig Dispense Refill ??? acetaminophen (TYLENOL) 500 mg tablet every 8 (eight) hours as needed. ??? aspirin 81 mg EC tablet daily. ??? atorvastatin (LIPITOR) 20 mg tablet Take 10 mg by mouth daily ??? cholecalciferol, vitamin D3, 400 unit capsule 1 po qd ??? cranberry 400 mg capsule 1 po bid ??? cyclobenzaprine (FLEXERIL) 10 mg tablet Take 10 mg by mouth as needed ??? diazePAM (VALIUM) 5 mg tablet Take 5 mg by mouth as needed for anxiety ??? diltiazem CD (CARDIZEM CD) 240 mg 24 hr capsule Take 1 capsule (240 mg total) by mouth daily 90 capsule 1 ??? fenofibrate 150 mg capsule 1 capsule daily 160 mg ??? gabapentin (NEURONTIN) 300 mg capsule 1 capsule daily. ??? glipiZIDE (GLUCOTROL) 10 mg tablet Take 5 mg by mouth 2 (two) times a day before meals ??? Lactobacillus acidophilus 10 billion cell capsule 1 po bid ??? levothyroxine (SYNTHROID, LEVOTHROID) 25 mcg tablet Take 75 mcg by mouth daily ??? metFORMIN (GLUCOPHAGE) 500 mg tablet every 12 hours. ??? metroNIDAZOLE (FLAGYL) 500 mg tablet Take 0.5 tablets (250 mg total) by mouth 3 (three) times a day 90 tablet 2 ??? MULTIVIT WITH MINERALS/LUTEIN (MULTIVITAMIN 50 PLUS ORAL) 1 po daily ??? oxybutynin (DITROPAN) 5 mg tablet every 12 hours. ??? predniSONE (DELTASONE) 10 mg tablet Take as directed by 200 tablet 6 ??? traZODone (DESYREL) 50 mg tablet Past Medical History Past Medical History: Diagnosis Date ??? Abdominal pain ??? Arthritis ??? Arthritis, rheumatoid (CMS/HCC) ??? Chronic diarrhea ??? Delayed emergence from general anesthesia ??? Diabetes (CMS/HCC) ??? Disorder Nearly severed pinky finger ??? Gallbladder disease ??? H/O recurrent pneumonia ??? Hyperlipidemia ??? Hypertension ??? Kidney disease Kidney dysfunction ??? Low back pain ongoing ??? Migraine headache ??? Neuropathy ??? PONV (postoperative nausea and vomiting) ??? Skin cancer ??? Thyroid disease ??? Tubular adenoma Ileocecal valve tubular adenoma ??? UTI (urinary tract infection) ??? Weight loss, non-intentional Past Surgical History Past Surgical History: Procedure Laterality Date ??? ABDOMINAL SURGERY ??? APPENDECTOMY 2016 along with colectomy ??? BACK SURGERY Major back surgery ??? CARPAL TUNNEL RELEASE ??? CHOLECYSTECTOMY ??? COLONOSCOPY 2 x ??? LAPAROSCOPIC ASSISSTED TOTAL COLECTOMY W/ J-POUCH Right 04/12/2017 ??? DC COLONOSCOPY W/BIOPSY SINGLE/MULTIPLE N/A 07/31/2020 Procedure: COLONOSCOPY; Surgeon: Mike Laguna MD; Location: [facility]; Service: Gastroenterology ??? DC EDG TRANSORAL BIOPSY SINGLE/MULTIPLE N/A 07/31/2020 Procedure: EGD; Surgeon: Mike Laguna MD; Location: [facility]; Service: Gastroenterology ??? SHOULDER SURGERY 2008 Shoulder repair ??? SPINAL FUSION Fusion, et al 4 procedures in one 2011 ??? TUBAL LIGATION 1976 Family History family history includes Breast cancer in her sister; Cancer in her son; Dementia in her mother; Heart disease in her sister; Other in her father. Social History The patient reports that she has never smoked. She has never used smokeless tobacco. She reports that she does not drink alcohol and does not use drugs. Social History Social History Narrative ??? Not on file Objective First recorded vital signs: Temp: 36.3 ??C (97.3 ??F) - BP: 90/49 - Heart Rate: (!) 106 - Resp: 20 - SpO2: 100 % Most recent vital signs: Temp: 36.3 ??C (97.3 ??F) - BP: 138/75 - Heart Rate: 78 - Resp: 18 - SpO2: 94 % Physical Exam Vitals and nursing note reviewed. Constitutional: Appearance: She is ill-appearing. Comments: Occasional tremors HENT: Head: Normocephalic and atraumatic. Mouth/Throat: Mouth: Mucous membranes are dry. Eyes: Extraocular Movements: Extraocular movements intact. Pupils: Pupils are equal, round, and reactive to light. Cardiovascular: Rate and Rhythm: Normal rate and regular rhythm. Heart sounds: Normal heart sounds. Pulmonary: Effort: Pulmonary effort is normal. Breath sounds: Normal breath sounds. Abdominal: General: Bowel sounds are normal. There is no distension. Palpations: Abdomen is soft. Tenderness: There is no abdominal tenderness. Musculoskeletal: General: Swelling present. Cervical back: Normal range of motion and neck supple. Skin: General: Skin is warm. Neurological: General: No focal deficit present. Mental Status: She is alert and oriented to person, place, and time. Psychiatric: Behavior: Behavior normal. Labs & ECG Hematology Results from last 7 days Lab Units 04/15/21 2324 WBC AUTO x10e3/uL 14.4* HEMOGLOBIN g/dL 8.0* HEMATOCRIT % 26.6* MCV fL 78* PLATELETS AUTO x10e3/uL 383 Chemistries Results from last 7 days Lab Units 04/15/21 2324 SODIUM mmol/L 130* POTASSIUM mmol/L 6.8* CHLORIDE mmol/L 98 CO2 mmol/L 14* BUN mg/dL 131.0* CREATININE mg/dL 4.84* GLUCOSE mg/dL 107* CALCIUM, SERUM mg/dL 8.2* MAGNESIUM mg/dL 2.2 AST U/L 22 ALT U/L 26 BILIRUBIN TOTAL mg/dL 0.3 ALBUMIN g/dL 3.2* TOTAL PROTEIN g/dL 5.6* Estimated Creatinine Clearance: 9.2 mL/min (A) (by C-G formula based on SCr of 4.84 mg/dL (H)). Coagulation Studies No lab exists for component: PROTIME, PTT Microbiology Blood cultures: Blood cultures pending. Urine cultures: Urine cultures pending. Recent Results (from the past 24 hour(s)) ECG 12 lead Collection Time: 04/15/21 10:24 PM Result Value Ref Range HR 88 bpm RR 680 ms DC QRSD 95 ms QT 354 ms QTc 429 ms QRS -32 deg T 42 deg Impression - ABNORMAL ECG - Impression Atrial fibrillation Impression Left axis deviation Impression Nonspecific T abnormalities, lateral leads Impression No previous ECG available for comparison CMP Collection Time: 04/15/21 11:24 PM Result Value Ref Range Sodium 130 (L) 134 - 144 mmol/L Potassium 6.8 (HC) 3.5 - 5.2 mmol/L Chloride 98 97 - 108 mmol/L CO2 14 (L) 18 - 29 mmol/L Anion Gap 18 (H) 3 - 11 mmol/L BUN 131.0 (HC) 8.0 - 27.0 mg/dL Creatinine 4.84 (H) 0.57 - 1.00 mg/dL Glucose, Serum 107 (H) 65 - 99 mg/dL Calcium 8.2 (L) 8.5 - 10.1 mg/dL AST 22 0 - 50 U/L ALT 26 0 - 32 U/L Alkaline Phosphatase 116 25 - 165 U/L Total Protein 5.6 (L) 6.4 - 8.4 g/dL eGFR (CKD-EPI) 8 (L) >60 (CKD-EPI) mL/min/1.73 m2 Albumin 3.2 (L) 3.4 - 5.0 g/dL Bilirubin, Total 0.3 <=1.2 mg/dL BUN/Creatinine Ratio 27.1 (H) 7.0 - 24.0 Lactic acid Collection Time: 04/15/21 11:24 PM Result Value Ref Range Lactic Acid 2.9 (H) 0.4 - 2.0 mmol/L Procalcitonin Collection Time: 04/15/21 11:24 PM Result Value Ref Range Procalcitonin 1.35 (H) 0.00 - 0.08 ng/mL Magnesium Collection Time: 04/15/21 11:24 PM Result Value Ref Range Magnesium 2.2 1.6 - 2.6 mg/dL TSH with reflex T4 Collection Time: 04/15/21 11:24 PM Result Value Ref Range TSH 3.650 0.450 - 4.500 uIU/mL Complete blood count with diff Collection Time: 04/15/21 11:24 PM Result Value Ref Range WBC Auto 14.4 (H) 3.8 - 10.1 x10e3/uL RBC 3.40 (L) 3.90 - 5.20 x10e6/uL Hemoglobin 8.0 (L) 12.0 - 15.6 g/dL Hematocrit 26.6 (L) 35.0 - 46.0 % MCV 78 (L) 81 - 100 fL MCH 23.5 (L) 27.0 - 35.0 pg MCHC 30.1 (L) 32.0 - 37.0 g/dL RDW 18.9 (H) 12.3 - 15.4 % Platelets 383 150 - 400 x10e3/uL MPV 10.8 (H) 7.4 - 10.4 fL NRBC % 1 0 /100 WBCs Abs. NRBC 0.2 x10e3/uL % Neutrophils 74 % % Lymphocytes 11 % % Monocytes 7 % % Eosinophils 5 % % Basophils 0 % Abs. Neutrophils 10.6 (H) 1.6 - 6.9 x10e3/uL Abs. Lymphocytes 1.6 1.1 - 4.8 x10e3/uL Abs. Monocytes 1.0 0.0 - 1.0 x10e3/uL Abs. Eosinophils 0.7 (H) 0.0 - 0.5 x10e3/uL Abs. Basophils 0.0 0.0 - 0.4 x10e3/uL Abs. Neutrophils (Auto) 10,600.0 (H) 1,600.0-6,900.0 /uL Respiratory PCR panel (includes SARS-COV-2 (COVID-19)) Collection Time: 04/15/21 11:36 PM Specimen: Nasopharynx; Aspirate Result Value Ref Range Adenovirus Detection by PCR Not Detected Not Detected Coronavirus 229E Detection by PCR Not Detected Not Detected Coronavirus HKU1 Detection by PCR Not Detected Not Detected Coronavirus NL63 Detection by PCR Not Detected Not Detected Coronavirus OC43 Detection by PCR Not Detected Not Detected SARS-CoV-2 (COVID-19) Qual PCR Not Detected Not Detected Metapneumovirus PCR Not Detected Not Detected Rhinovirus/Enterovirus PCR Not Detected Not Detected Influenza A PCR Not Detected Not Detected Influenza B PCR Not Detected Not Detected Parainfluenza 1 PCR Not Detected Not Detected Parainfluenza 2 PCR Not Detected Not Detected Parainfluenza 3 PCR Not Detected Not Detected Parainfluenza 4 PCR Not Detected Not Detected Respiratory Syncytial Virus PCR Not Detected Not Detected Bordetella parapertussis ([id number]) PCR Not Detected Not Detected Bordetella pertussis PCR Not Detected Not Detected Chlamydia pneumoniae PCR Not Detected Not Detected Mycoplasma pneumoniae PCR Not Detected Not Detected Urinalysis (dip only) Collection Time: 04/16/21 12:38 AM Result Value Ref Range Color, UA Yellow Yellow Clarity, UA Clear Clear Specific [place], UA 1.025 1.010 - 1.030 pH, UA 5.0 5.0 - 8.0 pH Leukocytes, UA Moderate (A) Negative Nitrite, UA Negative Negative Protein, UA 100 (A) Negative mg/dL Glucose, UA Negative Negative mg/dL Ketones, UA Negative Negative mg/dL Urobilinogen, UA 0.2 (Normal) 0.2 ??? 1.0 EU/dL Bilirubin, UA Negative Negative Blood/Hemoglobin, UA Trace-Intact (A) Negative Reflex to Urine Microscopic Yes Reflex to Urine Culture Yes Reflex to Ictotest, Urine No Urine microscopic Collection Time: 04/16/21 12:38 AM Result Value Ref Range WBC, UA >50 Packed (TNTC) (A) 0 - 5 /HPF RBC, UA 0-2 0 - 2 /HPF Bacteria, UA Moderate (A) None Seen /HPF Squamous Epithelial Cells, Urine Occasional None seen - Few /HPF Reflex to Urine Culture Yes POCT glucose Collection Time: 04/16/21 1:22 AM Result Value Ref Range POCT Glucose, Blood 163 (A) 65 - 99 mg/dL Diagnostic Imaging XR CHEST 1 VIEW Impression: No consolidation. ?? Electronically signed on Apr 15, 2021 11:32 PM PDT by Skip Fermin MD This note has been dictated using [employer] voice recognition software. It may be reviewed for major content but may contain mistakes due to the difficulties with the voice recognition software. Electronically signed by: Ana Maria Narvaez MD 04/16/2021 1:42 AM documented in this encounter Procedure Notes Redd Trejo MD - 04/22/2021 4:02 PM PDT Procedures Central Venous Catheter (CVC, Central Line) Placement Date: 04/22/2021 Time: 4:02 PM Indication: Venous access Resident: Redd Trejo MD Attending: Dr. Ramsey Consent: family. The risks, benefits and alternatives were explained. All questions were answered. A time-out was completed verifying correct patient, procedure, site, positioning, and special equipment if applicable. The patient was placed in a dependent position appropriate for central line placement based on the vein to be cannulated. The patient???s left neck was prepped and draped in sterile fa shion. 1% Lidocaine was used to anesthetize the surrounding skin area. A triple lumen 7-Occitan catheter was introduced into the the internal jugular using the Seldinger technique under ultrasound guidance. The catheter was threaded smoothly over the guide wire and appropriate blood return was obtained. Each lumen of the catheter was evacuated of air and flushed with sterile saline. The catheter was then secured in place to the skin and sutures placed. Dr. Ramsey was available for the entire procedure. Estimated Blood Loss: 2cc The patient tolerated the procedure well and there were no complications. Electronically signed by: Redd Trejo MD 04/22/2021 4:02 PM Associated attestation - Jordan Ramsey MD - 04/23/2021 5:07 PM PDT Patient was seen and examined with Dr. Trejo on 04/22/2021 . I participated in all aspects of clinical care including physical exam, and review of laboratory and imaging data. I agree with all documentation provided by the resident physician. Recap of plan: procedure supervised. No complications. Redd Davis MD, MD - 04/16/2021 11:33 AM PDT Procedures Procedure Note: Left IJ Dialysis (Trialyasis) Line placed under Ultrasound Guidance Performed by: Redd Trejo MD Indication: Dialysis Attending: Dr. Kan, who was present and immediately available for the procedure. Description: left IJ vein was identified under ultrasound. The left Neck was draped and prepped. Lidocaine was injected into the skin and subcutaneous tissue. A needle was used to enter the vein under US guidance with good flash of blood. The guidewire was placed easily. Ultrasound guidance was used to locate the guidewire within the IJ vein. Skin incision was made using a scalpel and dilator passed.Triple lumen catheter was placed and secured at 24 cm. CXR is pending at the time of this note. Complications: None Electronically signed by: Redd Trejo MD 04/16/2021 at 11:40 AM Associated attestation - Radha Wilson MD - 04/16/2021 2:12 PM PDT I was present for this procedure. No complications Bhavik Kanocumented in this encounter Consult Notes Russell Cantu LCSW - 05/27/2021 7:43 AM PDTAssociated Order(s): IP CONSULT TO SOCIAL WORK CONSULT: PRECIPITATOR OPERATOR acknowledges consult for SNF, social work has already explored SNFs and pt has been declined from [facility], [facility], [facility], [facility] because pt was recently at [facility] and has already used up her Medicare days and pt's secondary insurance [employer] will be going away on 05/2021. PRECIPITATOR OPERATOR made referrals to [facility] , [facility]. Russell Cantu LCSW Mohsen Patel MD - 05/18/2021 4:22 PM PDT Gastroenterology Consultation Reason for consult: dysphagia Subjective HPI: 75 year old female with history of cholecystectomy in 1985, ventral hernia repair surgery,hypothyroidism, diabetes, rheumatoid arthritis on Xeljanz, hypertension, anticoagulated with Eliquisand plavix Who presents for consultation for dysphagia for the past 1 year. Patient was mated to the hospital on Apr 15, 2021 for weakness and altered mental status With acute kidney injury and hyperkalemia and sepsis in which she was treated with antibiotics. Patient complains of dysphagia to solids only. Patient can drink water okay. Patient also has odynophagia but no history of asthma. Patient's bowel movements currently is one time per day and well formed. Patient currently taking Xeljanz for her rheumatoid arthritis. Patient denies family history colon cancer, IBD or celiac disease. Patient denies rectal bleeding, nausea vomit, hematemesis, change in bowel habits. 07/31/2020- egd/colon- Normal upper endoscopy, status post right hemicolectomy, 2.5 cm solitary ulcerseen in the transverse colon status post biopsy which showed crypt abscesses concerning for possibleCrohn's disease.Biopsies of the duodenum was normal. Biopsy of the small bowel showed acute inflammation with hemorrhage consistent with acute enteritis. Negative for granulomas dysplasia or carcinoma was during the small bowel of the ileum. Patient Active Problem List Diagnosis ??? Seronegative rheumatoid arthritis of multiple sites (CMS/HCC) ??? Osteoarthropathy ??? Type II diabetes mellitus with complication (CMS/HCC) ??? Renal insufficiency ??? Grief ??? Psoriatic arthritis (CMS/HCC) ??? Abdominal pain ??? Functional diarrhea ??? Nausea and vomiting ??? Excessive body weight loss ??? Pressure injury of skin of right calf ??? Unstable angina (CMS/HCC) ??? Dysphagia Past Medical History: Diagnosis Date ??? Abdominal pain ??? Arthritis ??? Arthritis, rheumatoid (CMS/HCC) ??? Chronic diarrhea ??? Delayed emergence from general anesthesia ??? Diabetes (CMS/HCC) ??? Disorder Nearly severed pinky finger ??? Gallbladder disease ??? H/O recurrent pneumonia ??? Hyperlipidemia ??? Hypertension ??? Kidney disease Kidney dysfunction ??? Low back pain ongoing ??? Migraine headache ??? Neuropathy ??? PONV (postoperative nausea and vomiting) ??? Skin cancer ??? Thyroid disease ??? Tubular adenoma Ileocecal valve tubular adenoma ??? UTI (urinary tract infection) ??? Weight loss, non-intentional Past Surgical History: Procedure Laterality Date ??? ABDOMINAL SURGERY ??? APPENDECTOMY 2016 along with colectomy ??? BACK SURGERY Major back surgery ??? CARPAL TUNNEL RELEASE ??? CHOLECYSTECTOMY ??? COLONOSCOPY 2 x ??? LAPAROSCOPIC ASSISSTED TOTAL COLECTOMY W/ J-POUCH Right 04/12/2017 ??? DC COLONOSCOPY W/BIOPSY SINGLE/MULTIPLE N/A 07/31/2020 Procedure: COLONOSCOPY; Surgeon: Mike Laguna MD; Location: [facility]; Service: Gastroenterology ??? DC DEBRIDEMENT, SKIN, SUB-Q TISSUE,=<20 SQ CM Bilateral 04/18/2021 Procedure: debridement of bilateral calf wound; Surgeon: Patria Cruz MD; Location: [facility]; Service: ENT ??? DC EDG TRANSORAL BIOPSY SINGLE/MULTIPLE N/A 07/31/2020 Procedure: EGD; Surgeon: Mike Laguna MD; Location: [facility]; Service: Gastroenterology ??? SHOULDER SURGERY 2008 Shoulder repair ??? SPINAL FUSION Fusion, et al 4 procedures in one 2011 ??? TUBAL LIGATION 1977 Family History Problem Relation Age of Onset ??? Dementia Mother ??? Other Father Respiratory problems ??? Heart disease Sister ??? Breast cancer Sister ??? Cancer Son Social History Socioeconomic History ??? Marital status: Spouse name: Not on file ??? Number of children: Not on file ??? Years of education: Not on file ??? Highest education level: Not on file Occupational History ??? Not on file Tobacco Use ??? Smoking status: Never Smoker ??? Smokeless tobacco: Never Used Substance and Sexual Activity ??? Alcohol use: No Alcohol/week: 0.0 standard drinks ??? Drug use: No ??? Sexual activity: Not Currently Partners: Male control/protection: Surgical Comment: many surgeries over the years....not listed Other Topics Concern ??? Not on file Social History Narrative ??? Not on file Social Determinants of Health Financial Resource Strain: ??? Difficulty of Paying Living Expenses: Food Insecurity: ??? Worried About Running Out of Food in the Last Year: ??? Ran Out of Food in the Last Year: Transportation Needs: ??? Lack of Transportation (Medical): ??? Lack of Transportation (Non-Medical): Physical Activity: ??? Days of Exercise per Week: ??? Minutes of Exercise per Session: Stress: ??? Feeling of Stress : Social Connections: ??? Frequency of Communication with Friends and Family: ??? Frequency of Social Gatherings with Friends and Family: ??? Attends [employer] Services: ??? Active Member of Clubs or Organizations: ??? Attends Club or Organization Meetings: ??? Marital Status: Intimate Partner Violence: ??? Fear of Current or Ex-Partner: ??? Emotionally Abused: ??? Physically Abused: ??? Sexually Abused: Current Facility-Administered Medications: ??? acetaminophen (TYLENOL) suppository 120 mg, 120 mg, rectal, q4h PRN, Redd Trejo MD, 120 mg at 04/21/21 2300 ??? [START ON 05/19/2021] apixaban (ELIQUIS) tablet 5 mg, 5 mg, oral, BID (RT), Iron Lowry DO ??? aspirin chewable tablet 81 mg, 81 mg, oral, Daily, Trent Batista MD, 81 mg at 05/18/21 0853 ??? atorvastatin (LIPITOR) tablet 40 mg, 40 mg, oral, Nightly, Ricardo Griffin DO, 40 mg at 05/17/212058 ??? atropine injection (abboject) 0.5-1 mg, 0.5-1 mg, intravenous, q5 min PRN, Trent Batista MD ??? calcium carbonate (TUMS) chewable tablet 500 mg, 500 mg, oral, TID PRN, Iron Lowry DO, 500 mg at 05/18/21 0007 ??? carvediloL (COREG) tablet 6.25 mg, 6.25 mg, oral, BID with meals, Ricardo Griffin DO, 6.25 mg at 05/18/21 0852 ??? clopidogreL (PLAVIX) tablet 600 mg, 600 mg, oral, Once AND clopidogreL (PLAVIX) tablet 75 mg, 75 mg, oral, Daily, Trent Batista MD, 75 mg at 05/18/21 0853 ??? dextrose 50 % in water (D50W) g injection 12.5-50 g, 12.5-50 g, intravenous, PRN, Xavier Chen MD ??? diazePAM (VALIUM) tablet 2 mg, 2 mg, oral, q12h PRN, Ricardo Griffin DO, 2 mg at 05/18/21 0006 ??? diltiazem CD (CARDIZEM CD) 24 hr capsule 240 mg, 240 mg, oral, Daily, Xavier Johnson MD,240 mg at 05/18/21 0853 ??? diphenhydrAMINE (BENADRYL) capsule 50 mg, 50 mg, oral, q6h PRN, Ricardo Griffin DO, 50 mg at 05/16/212024 ??? flumazeniL (ROMAZICON) injection 0.2 mg, 0.2 mg, intravenous, PRN, Trent Batista MD ??? HYDROcodone-acetaminophen (NORCO) 5-325 mg 1 tablet, 1 tablet, oral, q4h PRN, Ricardo Griffin DO, 1 tablet at 05/18/21 0859 ??? HYDROmorphone (DILAUDID) injection 0.2 mg, 0.2 mg, intravenous, q2h PRN, Iron Lowry DO, 0.2mg at 05/18/21 0031 ??? insulin glargine (LANTUS) injection 6 Units, 6 Units, subcutaneous, Nightly, Ricardo Griffin DO, 6Units at 05/17/212104 ??? insulin lispro injection 0-5 Units, 0-5 Units, subcutaneous, Nightly, Xavier Johnosn MD,2 Units at 05/17/212104 ??? insulin lispro injection 0-6 Units, 0-6 Units, subcutaneous, TID with meals, Xavier Johnson MD, 5 Units at 05/18/21 1321 ??? lactobacillus rhamnosus GG (CULTURELLE) 10 billion cell 1 capsule, 1 capsule, oral, Daily, Ricardo Griffin DO, 1 capsule at 05/18/21 0852 ??? levOCARNitine (L-CARNITINE) tablet 500 mg, 500 mg, oral, Daily with dinner, Ricardo Griffin DO, 500 mg at 05/17/212058 ??? levothyroxine (SYNTHROID) tablet 75 mcg, 75 mcg, oral, q AM AC, Ricardo Griffin DO, 75 mcg at 05/18/21 0613 ??? lidocaine (for HOWARD) jelly 1 application, 1 application, Topical, PRN, Ricardo Griffin DO ??? Insert peripheral IV, , , Once AND lidocaine (XYLOCAINE) 10 mg/mL (1 %) injection 1 mL, 1 mL, infiltration, Once PRN AND Maintain IV access, , , Until discontinued AND Saline lock IV, , , Once AND sodium chloride 0.9 % flush 10 mL, 10 mL, intravenous, PRN, Patria Cruz MD ??? Insert peripheral IV, , , Once AND lidocaine (XYLOCAINE) 10 mg/mL (1 %) injection 1 mL, 1 mL, infiltration, Once PRN AND Maintain IV access, , , Until discontinued AND Saline lock IV, , , Once AND sodium chloride 0.9 % flush 10 mL, 10 mL, intravenous, PRN, Patria Cruz MD ??? Insert peripheral IV, , , Once AND lidocaine (XYLOCAINE) 10 mg/mL (1 %) injection 1 mL, 1 mL, infiltration, Once PRN AND Maintain IV access, , , Until discontinued AND Saline lock IV, , , Once AND sodium chloride 0.9 % flush 10 mL, 10 mL, intravenous, PRN, Patria Cruz MD ??? Insert peripheral IV, , , Once AND lidocaine (XYLOCAINE) 10 mg/mL (1 %) injection 1 mL, 1 mL, infiltration, Once PRN AND Maintain IV access, , , Until discontinued AND Saline lock IV, , , Once AND sodium chloride 0.9 % flush 10 mL, 10 mL, intravenous, PRN, Nikko Tan MD ??? magnesium chloride (SLOW-MAG) tablet 71.5 mg, 1 tablet, oral, Daily with breakfast, Ricardo Griffin, DO, 71.5 mg at 05/18/21 0852 ??? miconazole (MICOTIN) 2 % powder, , Topical, BID, Patria Cruz MD, 1 application at 05/18/21 0859 ??? naloxone (NARCAN) injection 0.04 mg, 0.04 mg, intravenous, PRN, Patria Cruz MD ??? naloxone (NARCAN) injection 0.4 mg, 0.4 mg, intravenous, PRN, Trent Batista MD ??? nitroglycerin (NITROSTAT) SL tablet 0.4 mg, 0.4 mg, sublingual, q5 min PRN, Iron Lowry DO, 0.4 mg at 05/15/21 1340 ??? ondansetron (ZOFRAN) 4 mg/5 mL solution 4 mg, 4 mg, oral, q8h PRN, Ricardo Griffin DO ??? ondansetron (ZOFRAN) injection 4 mg, 4 mg, intravenous, q8h PRN, Ricardo Griffin DO, 4 mg at 05/18/21 1336 ??? ondansetron ODT (ZOFRAN-ODT) disintegrating tablet 4 mg, 4 mg, oral, q8h PRN, Ricardo Griffin DO, 4 mg at 05/18/21 1230 ??? ondansetron ODT (ZOFRAN-ODT) disintegrating tablet 4 mg, 4 mg, oral, Once, Iron Lowry DO ??? pantoprazole (PROTONIX) EC tablet 40 mg, 40 mg, oral, q AM AC, Xavier Johnson MD, 40 mg at 05/18/21 0612 ??? predniSONE (DELTASONE) tablet 5 mg, 5 mg, oral, Daily, Xavier Johnson MD, 5 mg at 05/18/21 0852 ??? promethazine (PHENERGAN) 6.25 mg in sodium chloride (NS) 0.9 % 50 mL (0.125 mg/mL) IVPB, 6.25 mg, intravenous, q6h PRN, Ricardo Griffin DO, Stopped at 05/14/212009 ??? senna (SENOKOT) tablet 8.6 mg, 1 tablet, oral, BID, Ricardo Griffin DO, 8.6 mg at 05/17/212099 ??? sertraline (ZOLOFT) tablet 25 mg, 25 mg, oral, Nightly, Ricardo Griffin DO, 25 mg at 05/17/212099 ??? [COMPLETED] Prepare/Crossmatch RBC: 1 Units, , , Once AND [COMPLETED] Transfuse RBC: 1 Units, , intravenous, Transfusion AND [COMPLETED] Nursing communication: Ensure provider has obtainedInformed Consent for Blood Transfusion, , , Once AND Vital Signs, , , PRN AND sodium chloride (NS) 0.9 % infusion 250 mL, 250 mL, intravenous, PRN AND [COMPLETED] Nursing Communication: Transfusion Reaction Management, , , Once, Ana Maria Narvaez MD ??? sodium chloride 0.9 % flush 20 mL, 20 mL, intravenous, PRN, Patria Cruz MD ??? sulfaSALAzine (AZULFIDINE) tablet 1,000 mg, 1,000 mg, oral, BID, Ricardo Griffin DO, 1,000 mg at 05/18/21 0852 Allergies Allergen Reactions ??? Bactrim [Sulfamethoxazole-Trimethoprim] Swelling ??? Betadine [Povidone-Iodine] ??? Fish Derived ??? Iodine ??? Other [place] products ??? Shellfish Containing Products Review of Systems The following portions of the patient's history were reviewed and updated as appropriate: allergies,current medications, past family history, past medical history, past social history, past surgical history and problem list. Review of Systems A comprehensive review of systems was negative except for: Gastrointestinal: positive for dysphagia. Objective BP 122/77 (BP Location: Right arm, Patient Position: Sitting) Pulse 100 Temp 36.5 ??C (97.7 ??F) (Oral) Resp 18 Ht 1.524 m Wt 73.3 kg SpO2 97% BMI 31.56 kg/m?? @FSRXLABELPATIENTWEIGHT@ Body mass index is 31.56 kg/m??. Physical Exam BP 122/77 (BP Location: Right arm, Patient Position: Sitting) Pulse 100 Temp 36.5 ??C (97.7 ??F) (Oral) Resp 18 Ht 1.524 m Wt 73.3 kg SpO2 97% BMI 31.56 kg/m?? General Appearance: Alert, cooperative, no distress, appears stated age Head: Normocephalic, without obvious abnormality, atraumatic Eyes: PERRL, conjunctiva/corneas clear, EOM's intact, fundi benign, both eyes Ears: Normal TM's and external ear canals, both ears Nose: Nares normal, septum midline,mucosa normal, no drainage or sinus tenderness Throat: Lips, mucosa, and tongue normal; teeth and gums normal Neck: Supple, symmetrical, trachea midline, no adenopathy; thyroid: not enlarged, symmetric, no tenderness/mass/nodules; no carotid bruit or JVD Back: Symmetric, no curvature, ROM normal, no CVA tenderness Lungs: Clear to auscultation bilaterally, respirations unlabored Breasts: No masses or tenderness Heart: Regular rate and rhythm, S1 and S2 normal, no murmur, rub, or gallop Abdomen: Soft, non-tender, bowel sounds active all four quadrants, no masses, no organomegaly Pelvic: Deferred Extremities: Extremities normal, atraumatic, no cyanosis or edema Pulses: 2+ and symmetric Skin: Skin color, texture, turgor normal, no rashes or lesions Lymph nodes: Cervical, supraclavicular, and axillary nodes normal Neurologic: Normal No components found for: CBC] No components found for: CMP] No results displayed because visit has over 200 results. Lab on 09/10/2020 Component Date Value Ref Range Status ??? Sodium 09/10/2020 138 134 - 144 mmol/L Final ??? Potassium 09/10/2020 4.0 3.5 - 5.2 mmol/L Final ??? Chloride 09/10/2020 99 97 - 108 mmol/L Final ??? CO2 09/10/2020 29 18 - 29 mmol/L Final ??? Anion Gap 09/10/2020 10 3 - 11 mmol/L Final ??? BUN 09/10/2020 32.0* 8.0 - 27.0 mg/dL Final ??? Creatinine 09/10/2020 0.95 0.57 - 1.00 mg/dL Final ??? Glucose, Serum 09/10/2020 182* 65 - 99 mg/dL Final ??? Calcium 09/10/2020 8.7 8.5 - 10.1 mg/dL Final ??? AST 09/10/2020 18 0 - 50 U/L Final ??? ALT 09/10/2020 32 0 - 32 U/L Final ??? Alkaline Phosphatase 09/10/2020 117 25 - 165 U/L Final ??? Total Protein 09/10/2020 5.5* 6.4 - 8.4 g/dL Final ??? eGFR (CKD-EPI) 09/10/2020 60* >60 (CKD-EPI) mL/min/1.73 m2 Final ??? Albumin 09/10/2020 3.2* 3.4 - 5.0 g/dL Final ??? Bilirubin, Total 09/10/2020 0.4 <=1.2 mg/dL Final ??? BUN/Creatinine Ratio 09/10/2020 33.7* 7.0 - 24.0 Final ??? CRP (mg/dL) 09/10/2020 3.8* <=0.5 mg/dL Final ??? Sed Rate 09/10/2020 10 <=40 mm/hr Final ??? Brock 09/10/2020 35 0 - 50 units Final Negative <45 Equivocal 45 - 50 Positive >50 ??? ACCA 09/10/2020 7 0 - 90 units Final Negative <80 Equivocal 80 - 90 Positive >90 ??? ALCA 09/10/2020 7 0 - 60 units Final Negative <55 Equivocal 55 - 60 Positive >60 ??? Mannobioside Ab.IgG 09/10/2020 4 0 - 100 units Final Negative < 90 Equivocal 90 - 100 Positive >100 This test was developed and its performance characteristics determined by [facility]. It has not been cleared or approved by the Food and Drug Administration. The FDA has determined that such clearance or approval is not necessary. ??? Atypical P-ANCA 09/10/2020 Negative Negative Final ??? Comments 09/10/2020 Comment Final Pattern is not suggestive of Inflammatory Bowel Disease ??? Deaminated Gliadin Ab, IgA 09/10/2020 2 0 - 19 units Final Negative 0 - 19 Weak Positive 20 - 30 Moderate to Strong Positive >30 ??? Deaminated Gliadin Ab, IgG 09/10/2020 <1 0 - 19 units Final Negative 0 - 19 Weak Positive 20 - 30 Moderate to Strong Positive >30 ??? Tissue Transglutaminase Ab, IgA 09/10/2020 <2 0 - 3 U/mL Final Negative 0 - 3 Weak Positive 4 - 10 Positive >10 Tissue Transglutaminase (tTG) has been identified as the endomysial antigen. Studies have demonstr- ated that endomysial IgA antibodies have over 99% specificity for gluten sensitive enteropathy. ??? Endomysial Antibody, IgA 09/10/2020 Negative Negative Final ??? WBC Auto 09/10/2020 11.0* 3.8 - 10.1 x10e3/uL Final ??? RBC 09/10/2020 4.57 3.90 - 5.20 x10e6/uL Final ??? Hemoglobin 09/10/2020 13.6 12.0 - 15.6 g/dL Final ??? Hematocrit 09/10/2020 43.4 35.0 - 46.0 % Final ??? MCV 09/10/2020 95 81 - 100 fL Final ??? MCH 09/10/2020 29.8 27.0 - 35.0 pg Final ??? MCHC 09/10/2020 31.3* 32.0 - 37.0 g/dL Final ??? RDW 09/10/2020 17.7* 12.3 - 15.4 % Final ??? Platelets 09/10/2020 114* 150 - 400 x10e3/uL Final ??? MPV 09/10/2020 12.6* 7.4 - 10.4 fL Final ??? NRBC % 09/10/2020 0 0 /100 WBCs Final ??? Abs. NRBC 09/10/2020 0.0 x10e3/uL Final ??? % Neutrophils 09/10/2020 90 % Final ??? % Lymphocytes 09/10/2020 4 % Final ??? % Monocytes 09/10/2020 5 % Final ??? % Eosinophils 09/10/2020 0 % Final ??? % Basophils 09/10/2020 0 % Final ??? Abs. Neutrophils 09/10/2020 9.9* 1.6 - 6.9 x10e3/uL Final ??? Abs. Lymphocytes 09/10/2020 0.4* 1.1 - 4.8 x10e3/uL Final ??? Abs. Monocytes 09/10/2020 0.5 0.0 - 1.0 x10e3/uL Final ??? Abs. Eosinophils 09/10/2020 0.0 0.0 - 0.5 x10e3/uL Final ??? Abs. Basophils 09/10/2020 0.0 0.0 - 0.4 x10e3/uL Final ??? Abs. Neutrophils (Auto) 09/10/2020 9,900.0* 1,600.0-6,900.0 /uL Final Appointment on 08/03/2020 Component Date Value Ref Range Status ??? Sodium 08/03/2020 134 134 - 144 mmol/L Final ??? Potassium 08/03/2020 4.2 3.5 - 5.2 mmol/L Final ??? Chloride 08/03/2020 97 97 - 108 mmol/L Final ??? CO2 08/03/2020 22 18 - 29 mmol/L Final ??? Anion Gap 08/03/2020 15* 3 - 11 mmol/L Final ??? BUN 08/03/2020 33.0* 8.0 - 27.0 mg/dL Final ??? Creatinine 08/03/2020 1.23* 0.57 - 1.00 mg/dL Final ??? Glucose, Serum 08/03/2020 245* 65 - 99 mg/dL Final ??? Calcium 08/03/2020 9.5 8.5 - 10.1 mg/dL Final ??? AST 08/03/2020 20 0 - 50 U/L Final ??? ALT 08/03/2020 19 0 - 32 U/L Final ??? Alkaline Phosphatase 08/03/2020 98 25 - 165 U/L Final ??? Total Protein 08/03/2020 6.0* 6.4 - 8.4 g/dL Final ??? eGFR (CKD-EPI) 08/03/2020 44* >60 (CKD-EPI) mL/min/1.73 m2 Final ??? Albumin 08/03/2020 3.5 3.4 - 5.0 g/dL Final ??? Bilirubin, Total 08/03/2020 0.3 <=1.2 mg/dL Final ??? BUN/Creatinine Ratio 08/03/2020 26.8* 7.0 - 24.0 Final ??? WBC Auto 08/03/2020 12.7* 3.8 - 10.1 x10e3/uL Final ??? RBC 08/03/2020 4.50 3.90 - 5.20 x10e6/uL Final ??? Hemoglobin 08/03/2020 13.6 12.0 - 15.6 g/dL Final ??? Hematocrit 08/03/2020 41.5 35.0 - 46.0 % Final ??? MCV 08/03/2020 92 81 - 100 fL Final ??? MCH 08/03/2020 30.2 27.0 - 35.0 pg Final ??? MCHC 08/03/2020 32.8 32.0 - 37.0 g/dL Final ??? RDW 08/03/2020 14.7 12.3 - 15.4 % Final ??? Platelets 08/03/2020 468* 150 - 400 x10e3/uL Final ??? MPV 08/03/2020 11.5* 7.4 - 10.4 fL Final ??? NRBC % 08/03/2020 0 0 /100 WBCs Final ??? Abs. NRBC 08/03/2020 0.0 x10e3/uL Final ??? % Neutrophils 08/03/2020 88 % Final ??? % Lymphocytes 08/03/2020 5 % Final ??? % Monocytes 08/03/2020 7 % Final ??? % Eosinophils 08/03/2020 0 % Final ??? % Basophils 08/03/2020 0 % Final ??? Abs. Neutrophils 08/03/2020 11.2* 1.6 - 6.9 x10e3/uL Final ??? Abs. Lymphocytes 08/03/2020 0.6* 1.1 - 4.8 x10e3/uL Final ??? Abs. Monocytes 08/03/2020 0.8 0.0 - 1.0 x10e3/uL Final ??? Abs. Eosinophils 08/03/2020 0.0 0.0 - 0.5 x10e3/uL Final ??? Abs. Basophils 08/03/2020 0.0 0.0 - 0.4 x10e3/uL Final ??? Abs. Neutrophils (Auto) 08/03/2020 11,200.0* 1,600.0-6,900.0 /uL Final Admission on 07/31/2020, Discharged on 07/31/2020 Component Date Value Ref Range Status ??? POCT Glucose, Blood 07/31/2020 197* 65 - 99 mg/dL Final ??? POCT Glucose Test Comment 07/31/2020 Note: Reference Ranges revised September 24, 2019. Final ??? Pathology Final Diagnosis 07/31/2020 SEE DETAILS Final Comment: Patient: SHIRIN AGUILLON Case: [id number] Result ID: [id number] Ordering Provider: MIKE LAGUNA M.D. Collected Date: 07/31/20 Clinical History: Abdominal pain, functional diarrhea, nausea and vomiting, excessive body weight loss. FINAL DIAGNOSIS 1. DUODENUM, BIOPSY: A. Duodenal mucosa with no diagnostic alterations. B. Negative for celiac sprue. C. Negative for dysplasia or carcinoma. 2. ILEUM, SMALL BOWEL ENTERITIS, BIOPSIES: A. Acute inflammation with hemorrhage and reactive changes consistent with acute enteritis. B. Negative for granuloma formation, dysplasia or carcinoma. 3. PROXIMAL TRANSVERSE COLON ULCER, BIOPSY: A. Fragments of colonic mucosa showing acute inflammation, crypt abscess formation and reactive glandular changes. B. Negative for significant chronic inflammation, basal plasmacytosis or glandular branching. COMMENT: Part 2 and 3 showed acute inflammation with reactive changes without significant chronic inflammation. These finding can be see in acute self limiting colitis or drug induced colitis however early inflammatory bowel disease cannot be definitively ruled out. Recommend clinical and endoscopic correlation. Dane Herrera MD Pathologist 08/03/20 16:31 GROSS DESCRIPTION: 1. Three received in formalin labeled Leighton Shirin. Designated duodenum are three apparent tissue fragments measuring 0.2-0.4 cm. Filtered into cassette 1. 2. Designated ileum are multiple tissue fragments ranging in size from 0.2-0.3 cm. Filtered into cassette 2. 3. Designated transverse colon are three apparent tissue fragments measuring 0.2-0.3 cm. Filtered into cassette 3. (BJR/kk) MICROSCOPIC DESCRIPTION 1. In compliance with [facility] regulations, the pathologist s signature on this report indicates thatthe case has been personally reviewed by the pathologist. Microscopic examination was used to arrive at the diagnosis unless indicated otherwise. 2. Small bowel/ileum biopsies show acute inflammation with cryptitis, edema, hemorrhage, and reactive changes. No significant chronic inflammation, basal plasmacytosis and crypt abscesses are identified. 3. Sections show fragments of colonic mucosa with acute inflammation of the lamina propria, crypt abscess formation and reactive glandular changes. No significant chronic inflammation with basal cellplasmacytosis is noted. (DG/chayito) [address] [place] [address] [address], [place] [address] - CLIA: [id number] End of Report ??? Campylobacter Sp, stool PCR 07/31/2020 Not Detected Not Detected Final ??? C. diff PCR Toxins A+B, stool 07/31/2020 Not Detected Not Detected Final Negative results for C. difficile PCR indicates no presence of C. difficile.?? Patient does NOT need to be in Enteric Precautions and NO treatment is necessary. Two distinct groups have been identified that can harbor C. difficile asymptomatically at very high rates. Colonization at rates up to 50% and higher have been reported in infants and rates up to 25% in cystic fibrosis patients. The association of C difficile with disease in infants under the age of 3 years is not well understood therefore results are not reported. PCR testing alone cannot distinquish C. difficile disease from a carrier state, and therefore correlation with clinical findings is required. ??? C. diff PCR Reflex to EIA 07/31/2020 No Final ??? Plesiomonas shigelloides, stool PCR 07/31/2020 Not Detected Not Detected Final ??? Salmonella species, stool PCR 07/31/2020 Not Detected Not Detected Final ??? Vibrio (parahaemolyticus,vulnificu* 07/31/2020 Not Detected Not Detected Final ??? Vibrio cholerae, stool PCR 07/31/2020 Not Detected Not Detected Final ??? Yersinia enterocolitica, stool PCR 07/31/2020 Not Detected Not Detected Final ??? E. coli (EAEC) Enteroaggregative p* 07/31/2020 Not Detected Not Detected Final ??? E. coli (EPEC) Enteropathogenic ea* 07/31/2020 Not Detected Not Detected Final ??? E. coli (ETEC)Enterotoxigenic ltA+* 07/31/2020 Not Detected Not Detected Final ??? E.coli (STEC) Shiga-like toxin stx* 07/31/2020 Not Detected Not Detected Final ??? Shigella/Ecoli (EIEC)Enteroinvasiv* 07/31/2020 Not Detected Not Detected Final ??? Cryptosporidium, stool PCR 07/31/2020 Not Detected Not Detected Final ??? Cyclospora cayetanensis, stool PCR 07/31/2020 Not Detected Not Detected Final ??? Entamoeba histolytica, stool PCR 07/31/2020 Not Detected Not Detected Final ??? Giardia lamblia, stool PCR 07/31/2020 Not Detected Not Detected Final ??? Adenovirus F 40/41, stool PCR 07/31/2020 Not Detected Not Detected Final ??? Astrovirus subtypes 1-8, stool PCR 07/31/2020 Not Detected Not Detected Final ??? Norovirus I + II, stool PCR 07/31/2020 Not Detected Not Detected Final ??? Rotavirus A, stool PCR 07/31/2020 Not Detected Not Detected Final ??? Sapovirus (I, II, IV, V), stool PCR 07/31/2020 Not Detected Not Detected Final Clinical Support on 07/28/2020 Component Date Value Ref Range Status ??? SARS-CoV-2 (COVID-19) Qual PCR 07/28/2020 Not Detected Not Detected Final Comment: Performed using high-throughput nucleic acid amplification platforms at [facility] using either TaqPath COVID-19 Combo Kit assay or Quidel Emily SARS-CoV-2 assay, both FDA-cleared Emergency Use Authorization (EUA) assays (details available upon request). TaqPath COVID-19 Combo Kit assay was validated by [employer] using nasopharyngeal swab, nasopharyngeal aspirate, and bronchoalveolar lavage samples, and Quidel Emily SARS-CoV-2 assay was validated by [employer] using nasopharyngeal and oropharyngeal swab samples. Other sample types have not been independently validated by [facility] but information on preferred and acceptable collection sites and collection procedures may be obtained at the CDC website (https://www.cdc.gov/co ronavirus/2019-ncov/lab/fsmhdggcbt-yktspzcl-vbfgoqeoa.html), which is updated frequently. Negative results do not preclude infection with SARS-CoV-2 virus and should not be the sole basis of a patient management decision. In some patients repeat testing at various time points or from various collection sites may be necessary for virus detection. False-negative results may arise from improper sample collection, degradation of viral RNA during shipping or storage, the presence of RT-PCR inhibitors, and/or mutation in the SARS-CoV-2 virus. Pooled testing may be used for some specimens. Pooled testing been has been validated at [facility] with oversight by [facility] Department of Health, using no greater than four specimens per pool. Negative results from pools are reported directly while positive results are reflexed to neat (unpooled) testing of individual specimens. [facility] validation studies demonstrated minimal effect on sensitivity with this level of pooling. The impact of vaccines, antiviral therapeutics, antibiotics, and chemotherapeutic or immunosuppressant drugs on assay performance has not been evaluated. Please see [facility] website for updated testing algorithms and other information. Performed at [facility] - CLIA #:[id number], [address] Abstract on 07/27/2020 Component Date Value Ref Range Status ??? External LDL Cholesterol 06/26/2020 48 mg/dL Final ] Assessment/Plan 75 year old female with history of cholecystectomy in 1985, ventral hernia repair surgery,hypothyroidism, diabetes, rheumatoid arthritis on Xeljanz, hypertension, anticoagulated with Eliquisand plavix Who presents for consultation for dysphagia for the past 1 year. Patient was mated to the hospital on Apr 15, 2021 for weakness and altered mental status With acute kidney injury and hyperkalemia and sepsis in which she was treated with antibiotics. Patient complains of dysphagia to solids only. Patient can drink water okay. Patient also has odynophagia but no history of asthma. Patient's bowel movements currently is one time per day and well formed. Patient currently taking Xeljanz for her rheumatoid arthritis. Patient denies family history colon cancer, IBD or celiac disease. Patient denies rectal bleeding, nausea vomit, hematemesis, change in bowel habits. 07/31/2020- egd/colon- Normal upper endoscopy, status post right hemicolectomy, 2.5 cm solitary ulcerseen in the transverse colon status post biopsy which showed crypt abscesses concerning for possibleCrohn's disease.Biopsies of the duodenum was normal. Biopsy of the small bowel showed acute inflammation with hemorrhage consistent with acute enteritis. Negative for granulomas dysplasia or carcinoma was during the small bowel of the ileum. At this time, I do recommend upper endoscopy with anesthesia for the patient's dysphagia and odynophagia. Differential diagnosis includes infection versus candidiasis which is very high due to the patient is on immunosuppression with Xeljanz versus stricture versus malignancy versus Schatzki's ring versus eosinophilic esophagitis. Given the fact that the patient is on both Plavix and Eliquis, I recommend holding both at this point in time. The patient's upper endoscopy will be tentatively scheduled for this coming due to the anticoagulation. N.p.o. at midnight prior to day of egd. Recs: 1) egd mac 2) hold all anticoagulation if possible 3) goal inr <1.5 prior to egd Will follow Mohsen Fair MD 05/18/2021 4:22 PM Russell Brown LCSW - 05/15/2021 10:34 AM PDTAssociated Order(s): IP CONSULT TO SOCIAL WORK CONSULT: PRECIPITATOR OPERATOR acknowledge consult for , referral was made to [facility] as they maybe the only HH agency that goes out to [facility]. Russell Cantu LCSW Karen Mott RN - 05/10/2021 5:07 PM PDTAssociated Order(s): IP CONSULT TO WOUND/OSTOMY CARE Images from the original note were not included. [facility] Inpatient Wound Care Pt Name/Age/: Shirin Aguillon 75 y.o. 1945 Med. Record #: [id number] Date of Admission: 04/15/2021 Reason for Admission: Pressure injury of skin of right calf Initial visit for new inpatient wound consult request r/t revisit calf wounds Shirin Aguillon is a 75 y.o. female patient resting in bed. Patient has a past medical history ofAbdominal pain, Arthritis, Arthritis, rheumatoid ([facility]), Chronic diarrhea, Delayed emergence fromgeneral anesthesia, Diabetes ([facility]), Disorder, Gallbladder disease, H/O recurrent pneumonia, Hyper lipidemia, Hypertension, Kidney disease, Low back pain (ongoing), Migraine headache, Neuropathy, PONV (postoperative nausea and vomiting), Skin cancer, Thyroid disease, Tubular adenoma, UTI (urinary tract infection), and Weight loss, non-intentional. Wound 1-- Location:??Right calf, dorsal Description:??Pressure ulceration Dimensions:??10.0cm x 5.5cm x 0.4cm Base: adherent yellow slough, red tissue Edges:??irregular Drainage:??sero purulent Odor:??none Periwound Skin:??pale, fragile, blanchable erythema Pain:??7/10 Capillary refill-- slow Photo: Wound Care: Pre-medicate patient. Cleanse wounds with NS or Prophase cleanser. Pat dry. Apply zinc cream to all david wound areas to protect skin. Apply Silvadene cream (Rx) to wound beds. Cover with double layer of Vaseline gauze or [employer] to prevent sticking and hold moisture. Cover with ABD pad, secure with kerlix and tape. Change daily or PRN for soiling or dislodgement. Education: Educated patient on status of wounds and discussed slow progress wounds are making. Discussed switchto Silvadene cream, which she has used in the past. Additional Note: Encourage patient to breathe and encouraged distraction during wound care to help with pain. Kristina Hernandez reviewed wounds this visit as well. Please see her notes if applicable. No sharp debridement at this time. Recommendations: -See Dressing change orders, Primary tax staff accountant to perform daily dressing changes: Pre-medicate patient. Cleanse wounds with NS or Prophase cleanser. Pat dry. Apply zinc cream to all david wound areas to protect skin. Apply Silvadene cream (Rx) to wound beds. Cover with double layer of Vaseline gauze or [employer] to prevent sticking and hold moisture. Cover with ABD pad, secure with kerlix and tape. Change daily or PRN for soiling or dislodgement. -Inpatient wound care to follow up Monday 05/14 -Contact inpatient wound care if wound worsens Thank you for the consult and opportunity to participate in the care of this patient. Note Addendum: Patient may have reaction to Silvadene due to sulfa allergy. Orders altered on 05/12 to return to the use of Therahoney on all wounds. Electronically signed by: Karen Pryor RN, 05/10/2021 5:[address] - 05/07/2021 2:33 PM PDTAssociated Order(s): IP CONSULT TO NUTRITION SERVICES NUTRITION FOLLOW UP: ASSESS: 75 yo F admitted for sepsis and CAMILLE with hyperkalemia. Urine output improved, dialysis beingheld per notes. Pt s/p debridement of bilateral calf wound 04/18. Pt had a prolonged NPO status so Dobhoff was placed 04/22, TF was tolerated at goal. Pt pulled out NGT 04/25, tube feeds off. Diet advanced per ST 04/26. PO 0-75%; diet remains mechanical soft thin liquids. Per RN pt remains A&Ox1-2 with delayed responses, mild improvement in po intake. MD notes indicate no advance feeding interventions with decreased oral intake (04/30). Per SW notes pt likely to discharge to SNF soon, wound care consulted and has been seen before by wound (see previous notes). Spoke with pt this afternoon, states that she cannot have ensure because she is allergic to it, willing to try SAMI bid for wound healing now that renal labs appear to be stable (creat still elevated but <2.0). Read ingredients off of SAMI label and pt ok to try it with diet lemon [place]. PMHX: Arthritis, T2DM, PNA, HLD, HTN, kidney disease, UTI LABS: K+4.4, Bone Char Operator 1.51, Glu 134, Ca 8.2 MEDS: Reviewed. Insulin, prednisone GI: BM 05/06 x 2 Type 3 and 6. SKIN: ulcer on R& L calf, stg 2 PI on coccyx CURRENT WT: 76.2 kg BMI 32.81 kg/m2, IBW: 45.5 kg, admit wt: 72.4kg DIET: Mech soft, thin liq. PO 0-75%; mild improvement. Banatrol BID ESTIMATED NEEDS: CAMILLE, BMI, wounds Calories: 9504-6202 kcal/day (20-25 kcal/kg BW) Protein: 55-70 g/day (1.0-1.2 g/kg IBW) Fluids: 2125-2550ml/day (25-30 ml/kg) NUTRITION DIAGNOSIS: 1.) Inadequate oral intake related to decreased ability to consume sufficient energy as evidenced bycurrent NPO status.---IMPROVING 2.) Increased kcal/pro needs related to increased nutrient demand as evidence by pt with multiple pressure injuries. --PERSISTS 3.) Chew/swallow difficulty due to AMS as evidenced by modified diet texture per AU PAIR -- PERSISTS. NUTRITION INTERVENTION: 1.) Continue current diet per speech therapy. Consider tube feeding if inline with pt goals of care. 2.) Add SAMI BID to meal trays to help promote wound healing and monitor renal labs. 3.) Pt does not appear to be having diarrhea, recommend discontinue banatrol. MONITOR/EVALUATE: PO intake, diet tolerance vs TF? GI, wounds, labs, POC, nutrition status. Follow per high nutrition risk guidelines Russell Brown LCSW - 04/30/2021 3:55 PM PDTAssociated Order(s): IP CONSULT TO SOCIAL WORK SOCIAL WORK: CONSULT Data: EMR reviewed. Pt is on day 14 for Problem List Items Addressed This Visit Musculoskeletal * (Principal) Pressure injury of skin of right calf Relevant Orders MISC. TEST - (Completed) Culture, Deep Abscess Aerobic&Anaerobic w/gram stain (Completed) Other Visit Diagnoses Acute renal failure, unspecified acute renal failure type (CMS/HCC) - Primary Hyperkalemia Sepsis due to skin infection (CMS/HCC) Acute anemia Occult blood in stools Acute cystitis without hematuria . Patient is not medically stable for discharge at this time. In communication with provider, discharge needs include SNF. Social Work consults to coordinate these services have been ordered by physician at this time. PRECIPITATOR OPERATOR acknowledges order and met with patient at bedside to review discharge plan and recommendations.They do agree with this recommendation and are agreeable to services. [employer] referral platform in [employer] reviewed with patient - PRECIPITATOR OPERATOR provided choicing to patient. [employer] for [employer]. Referral made to [email or web address] portal by PRECIPITATOR OPERATOR. Pt will require an authorization from theirinsurance prior to discharge. Barriers to Discharge Include: Medical clearance Assessment: alert and oriented x4. Per PRECIPITATOR OPERATOR interactions, Physician Documentation and Nursing Documentation, patient does not have capacity for self care and has decisional capacity at this time. Plan: SNF; PRECIPITATOR OPERATOR will continue to follow pt's clinical course. LYLE GoldsteinW Wilfred Sanders MD - 04/23/2021 4:48 PM PDTAssociated Order(s): IP CONSULT TO CARDIOLOGY General cardiology: Chart reviewed. Patient admitted with sepsis syndrome, acute kidney injury and paroxysmal atrial fibrillation with rapid ventricular response. Echocardiogram performed this afternoon suggestive of mild hypokinesis inthe mid anterior wall. Patient also had elevated troponins on admission. At this point time given the patient's acute kidney injury would not perform coronary angiography and less she develops refractory angina pectoris or an ST elevation myocardial infarction. I would recommend the followin. Cardioprotective strategy with aspirin, clopidogrel, beta-marisel and high intensity statin therapy 2. Patient should remain on telemetry 3. Full consultation in the morning. Please call me if any issues arise this evening. Wilfred Peters MD Natty Ana Maria A, RD - 04/22/2021 12:17 PM PDTAssociated Order(s): IP CONSULT TO NUTRITION SERVICES NUTRITION FOLLOW UP: ASSESS: 75 yo F admitted to CCU for sepsis and CAMILLE with hyperkalemia. Urine output improved, dialysis being held per notes. Pt s/p debridement of bilateral calf wound 04/18. Pt remains NPO due to AMS. Pt has now been NPO x7 days. Per notes, pt agitated/confused. Plan was to place NGT and start TF but pt has so far pulled 4 NGT, even when in restraints. Pt continues to be unable to follow commands for ST eval. Dobhoff attempted again 04/22 and was placed so TF to start today. PMHX: Arthritis, T2DM, PNA, HLD, HTN, kidney disease, UTI LABS: Na 148, Bun 42, car cleaner 1.85, Glu 211 MEDS: Reviewed. Insulin, D5W GI: BM 04/22 SKIN: ulcer on R& L calf, stg 2 PI on coccyx CURRENT WT: 85 kg, BMI 36.6 kg/m2, IBW: 45.5 kg DIET: NPO x 7 days ESTIMATED NEEDS: CAMILLE, BMI, wounds Calories: 9305-3385 kcal/day (20-25 kcal/kg BW) Protein: 55-70 g/day (1.0-1.2 g/kg IBW) Fluids: 2125-2550ml/day (25-30ml/kg) NUTRITION DIAGNOSIS: 1.) Inadequate oral intake related to decreased ability to consume sufficient energy as evidenced bycurrent NPO status.---PERSISTS. 2.) Increased kcal/pro needs related to increased nutrient demand as evidence by pt with multiple pressure injuries. --PERSISTS NUTRITION INTERVENTION: 1.) Dobhoff has been placed. Recommend start TF of Glucerna 1.5 @ 10ml/hr. Keep at 10ml x 6hrs. If tolerated, advance TF by 10ml q 6 hrs to goal rate of 50ml/hr to provide 1725kcal and 95g pro (100% kcal and pro needs). Flush 85ml q 2 hrs while on IVF. Once IVF stopped, increase free water flush to 135ml q 2 hrs. TF at goal rate + flush would provide 2492ml H20/day. 2.) TF at goal rate will be able pt's protein needs. Will monitor renal labs and adjust TF if needed. MONITOR/EVALUATE: NPO status, TF start/na, GI, wounds, labs, POC, nutrition status. Follow per highnutrition risk guidelines Ana Maria Nunes RD - 04/21/2021 8:59 AM PDTAssociated Order(s): IP CONSULT TO NUTRITION SERVICES NUTRITION FOLLOW UP: ASSESS: 75 yo F admitted to CCU for sepsis and CAMILLE with hyperkalemia. Urine output improved, dialysis being held per notes. Pt s/p debridement of bilateral calf wound 04/18. Pt remains NPO due to AMS. Pt has now been NPO x6 days. Per notes, pt agitated/confused. Plan was to place NGT and start TF but pt has so far pulled 4 NGT, even when in restraints. Pt continues to be unable to follow commands for ST eval. PMHX: Arthritis, T2DM, PNA, HLD, HTN, kidney disease, UTI LABS: BUN 30.0, Cr 1.73, Glu 171 MEDS: Reviewed. Insulin, NS GI: BM 04/19 SKIN: ulcer on R& L calf, stg 2 PI on coccyx CURRENT WT: 84.1 kg, BMI 36.21 kg/m2, IBW: 45.5 kg DIET: NPO x 6 days ESTIMATED NEEDS: CAMILLE, BMI Calories: 4773-6738 kcal/day (20-25 kcal/kg BW) Protein: 45-55 g/day (1.0-1.2 g/kg IBW) NUTRITION DIAGNOSIS: 1.) Inadequate oral intake related to decreased ability to consume sufficient energy as evidenced bycurrent NPO status.---PERSISTS. 2.) Increased kcal/pro needs related to increased nutrient demand as evidence by pt with multiple pressure injuries. --PERSISTS NUTRITION INTERVENTION: 1.) Will monitor NPO status. MD is aware of prolonged NPO status. NGT placement has been unsuccessful so far. Due to multiple wounds, prolonged NPO status and unsafe for PO intake at this time, STRONGLY recommend dobhoff placement and TF start. 2.) Will monitor dialysis status. If pt is going to require chronic dialysis, will adjust estimated needs. Once diet advances, consider addition of Suplena vs Nepro. 3.) Pt is not a good Sami candidate at this time due to CAMILLE 4.) Once appropriate, will offer diabetes education, pt with A1c 9.0. MONITOR/EVALUATE: NPO status, diet advance vs nutrition support, GI, wounds, labs, POC, nutrition status. Follow per high nutrition risk guidelines Karen Mott RN - 04/19/2021 4:42 PM PDTAssociated Order(s): IP CONSULT TO WOUND/OSTOMY CARE Images from the original note were not included. [facility] Inpatient Wound Care Pt Name/Age/: Shirin Aguillon 75 y.o. 1945 Med. Record #: [id number] Date of Admission: 04/15/2021 Reason for Admission: Pressure injury of skin of right calf Initial visit for new inpatient wound consult request r/t multiple wounds Shirin Aguillon is a 75 y.o. female patient resting in bed. Patient has a past medical history ofAbdominal pain, Arthritis, Arthritis, rheumatoid (CMS/HCC), Chronic diarrhea, Delayed emergence fromgeneral anesthesia, Diabetes (CMS/HCC), Disorder, Gallbladder disease, H/O recurrent pneumonia, Hyper lipidemia, Hypertension, Kidney disease, Low back pain (ongoing), Migraine headache, Neuropathy, PONV (postoperative nausea and vomiting), Skin cancer, Thyroid disease, Tubular adenoma, UTI (urinary tract infection), and Weight loss, non-intentional. Wound 1-- Location: Right calf, dorsal Description: Pressure ulceration Dimensions: 11.0cm x 5.5cm x 0.5cm Base: adherent yellow slough, red tissue Edges: irregular Drainage: scant serosanguinous Odor: none Periwound Skin: pale, fragile, blanchable erythema Pain: unknown Capillary refill-- slow Photo: Wound 2-- Location: Left calf, dorsal Description: Pressure ulceration Dimensions: 7.8cm x 5.8cm x 0.6cm Base: adherent yellow slough, red tissue Edges: irregular Drainage: scant serosanguinous Odor: none Periwound Skin: pale, fragile, blanchable erythema Pain: unknown Capillary refill-- slow Photo: Wound 3-- Location: Coccyx Description: Stage 2 pressure injuries Dimensions: multiple small openings Base: pink tissue Edges: irregular Drainage: scant serosanguinous Odor: none Periwound Skin: pale, fragile, blanchable erythema Pain: unknown Capillary refill-- slow Photo: Wound 4-- Location: Left chest Description: Ulceration of unknown etiology Dimensions: 1.8cm x 1.0cm x unknown Base: adherent yellow/brown eschar Edges: irregular Drainage: none Odor: none Periwound Skin: pale, fragile, bruising Pain: unknown Capillary refill-- slow Photo: Wound 5-- Location: Right chest Description: Ulceration of unknown etiology Dimensions: 0.3cm x 2.3cm x unknown Base: red/brown eschar Edges: irregular Drainage: none Odor: none Periwound Skin: Bruising, blanchable erythema Pain: unknown Capillary refill-- slow Photo: Wound Care: R and L calf: Cleansed with NS, patted dry, applied skin prep to david edges of wounds. Applied medihoney to wound bases, covered with double layer of Vaseline gauze, covered with gauze bolsters, kerlix, tape. Coccyx: Cleansed with NS, patted dry, applied skin prep to david edges of wounds. Applied Hydrogel towound, covered with adherent foam dressing. All other wounds: Cleansed with NS, patted dry, applied skin prep to david edges of wounds. Apply double layer of xeroform gauze to wound base, cover with adhesive foam or island dressing. Recommendations: -See Dressing change orders, Primary tax staff accountant to perform dressing changes to all wounds: R and L calf: Cleanse with NS, pat dry, apply skin prep to david edges of wounds. Apply medihoney to wound bases, cover with double layer of Vaseline gauze, cover with gauze bolsters, kerlix, tape. Coccyx: Cleanse with NS, pat dry, apply skin prep to david edges of wounds. Apply Hydrogel to wound, cover with adherent foam dressing. All other wounds: Cleanse with NS, pat dry, apply skin prep to david edges of wounds. Apply double layer of xeroform gauze to wound base, cover with adhesive foam or island dressing. -Inpatient wound care to follow up Wed 04/21 -Contact inpatient wound care if wound worsens Thank you for the consult and opportunity to participate in the care of this patient. Electronically signed by: Karen Pryor RN, 04/19/2021 4:42 [address] - 04/16/2021 10:11 AM PDTAssociated Order(s): IP CONSULT TO NUTRITION SERVICES NUTRITION ASSESSMENT: ASSESS: Pt is a 75yo F admitted to CCU for sepsis and CAMILLE with hyperkalemia. Requiring dialysis thisam. NPO x 1, concern for possible GI bleed. PMHX: Arthritis, T2DM, PNA, HLD, HTN, kidney disease, UTI LABS: Reviewed. Na 130, K 5.5, Bun 131, Bone Char Operator 4.84, glu 107, alb 3.2 MEDS: Reviewed. Lokelma, levophed GI: BM 04/15, GI bleed? SKIN: unblanchable redness on coccyx, WC eval pending CURRENT WTS: 72.4kg, BMI 31.17kg/m2, IBW: 45.5kg DIET: NPO x1 EST. NEEDS: CAMILLE, BMI Kcals: 1450-1810kcal/day (20-25kcal/kg) Pro: 45-55g/day (1.0-1.2g/kg IBW) NUTRITION DIAGNOSIS: 1.) Inadequate oral intake related to decreased ability to consume sufficient energy as evidenced bycurrent NPO status. NUTRITION INTERVENTION: 1.) Will monitor NPO status. Advance diet when medically appropriate. 2.) If pt is going to require chronic dialysis, will adjust estimated needs. 3.) Will monitor for WC eval. Pt is not a good Sami candidate at this time due to CAMILLE MONITOR / EVAL: NPO, GI, wounds, labs, POC, nutrition status. Will continue to monitor per high nutrition risk guidelines Ricardo Rosa DO - 04/16/2021 7:58 AM PDT Associated Order(s): IP CONSULT TO NEPHROLOGY NEPHROLOGY CONSULTATION NOTE [facility] PATIENT NAME: Shirin Aguillon DATE OF : 1945 PRIMARY CARE PROVIDER: Rogelio Braga MD DATE OF SERVICE: 04/16/2021 HISTORY Reason for Consult: CAMILLE, Hyperkalemia, Metabolic acidosis History of Present Illness: Ms. Aguillon is a 75 y.o. female with a past medical history significant for T2DM, inflammatory bowel disease on sulfasalazine, seropositive rheumatoid arthritis on leflunomide& xeljanz, reportedly also on prednisone, CKD IIIa, Baseline Cr/GFR of 1.18/50-60, who was admitted for sepsis presumably due to pyelonephritis. Pt is lethargic, altered and weak but able to provide some history. She describes that she lives on [facility], lives with and son, and was not feeling well for the past 1-2 weeks. She had dysuria, weakness, chills and fatigue, but denied abdominal pain, chest pain, shortness of breath, headache, nausea, vomiting or peripheral edema. Per chart, she was seen in clinic at baseline 03/30/21. Presumably she became ill after this. She reports some intermittent use of NSAIDs due to her arthritis. She describes being on Lisinopril in the past for diabetic nephropathy, however mental status prevents full detailed history from patient interview. Per our records, pt recently discharged from [facility] on 03/08. Per chart 12/23 pt was started on Apixaban for provoked LLE DVT for 3 month course anticoagulation. On exam pt has howard in place, producing urine but decreased amount. Clear yellow in color. Appears volume up on exam. Bilateral lower extremities exhibit significant posterior ulcerated lesions with eschar and areas of necrosis and exquisite tenderness to palpation. Reportedly & per chart this has been a chronic progressing issue. Review of Systems: A comprehensive review of systems was conducted, and all were negative except for the pertinent positives listed in the HPI. Past Medical History: Past Medical History: Diagnosis Date ??? Abdominal pain ??? Arthritis ??? Arthritis, rheumatoid (CMS/HCC) ??? Chronic diarrhea ??? Delayed emergence from general anesthesia ??? Diabetes (CMS/HCC) ??? Disorder Nearly severed pinky finger ??? Gallbladder disease ??? H/O recurrent pneumonia ??? Hyperlipidemia ??? Hypertension ??? Kidney disease Kidney dysfunction ??? Low back pain ongoing ??? Migraine headache ??? Neuropathy ??? PONV (postoperative nausea and vomiting) ??? Skin cancer ??? Thyroid disease ??? Tubular adenoma Ileocecal valve tubular adenoma ??? UTI (urinary tract infection) ??? Weight loss, non-intentional Past Surgical History: Past Surgical History: Procedure Laterality Date ??? ABDOMINAL SURGERY ??? APPENDECTOMY 2016 along with colectomy ??? BACK SURGERY Major back surgery ??? CARPAL TUNNEL RELEASE ??? CHOLECYSTECTOMY ??? COLONOSCOPY 2 x ??? LAPAROSCOPIC ASSISSTED TOTAL COLECTOMY W/ J-POUCH Right 04/12/2017 ??? DC COLONOSCOPY W/BIOPSY SINGLE/MULTIPLE N/A 07/31/2020 Procedure: COLONOSCOPY; Surgeon: Mike Laguna MD; Location: [facility] GI; Service: Gastroenterology ??? DC EDG TRANSORAL BIOPSY SINGLE/MULTIPLE N/A 07/31/2020 Procedure: EGD; Surgeon: Mike Laguna MD; Location: [facility] GI; Service: Gastroenterology ??? SHOULDER SURGERY 2008 Shoulder repair ??? SPINAL FUSION Fusion, et al 4 procedures in one 2011 ??? TUBAL LIGATION 1976 Allergies: Allergies Allergen Reactions ??? Bactrim [Sulfamethoxazole-Trimethoprim] Swelling ??? Betadine [Povidone-Iodine] ??? Fish Derived ??? Iodine ??? Other [place] products ??? Shellfish Containing Products Social History: Social History Socioeconomic History ??? Marital status: Spouse name: Not on file ??? Number of children: Not on file ??? Years of education: Not on file ??? Highest education level: Not on file Occupational History ??? Not on file Tobacco Use ??? Smoking status: Never Smoker ??? Smokeless tobacco: Never Used Substance and Sexual Activity ??? Alcohol use: No Alcohol/week: 0.0 standard drinks ??? Drug use: No ??? Sexual activity: Not Currently Partners: Male control/protection: Surgical Comment: many surgeries over the years....not listed Other Topics Concern ??? Not on file Social History Narrative ??? Not on file Social Determinants of Health Financial Resource Strain: ??? Difficulty of Paying Living Expenses: Food Insecurity: ??? Worried About Running Out of Food in the Last Year: ??? Ran Out of Food in the Last Year: Transportation Needs: ??? Lack of Transportation (Medical): ??? Lack of Transportation (Non-Medical): Physical Activity: ??? Days of Exercise per Week: ??? Minutes of Exercise per Session: Stress: ??? Feeling of Stress : Social Connections: ??? Frequency of Communication with Friends and Family: ??? Frequency of Social Gatherings with Friends and Family: ??? Attends [employer] Services: ??? Active Member of Clubs or Organizations: ??? Attends Club or Organization Meetings: ??? Marital Status: Intimate Partner Violence: ??? Fear of Current or Ex-Partner: ??? Emotionally Abused: ??? Physically Abused: ??? Sexually Abused: Family History: Family History Problem Relation Age of Onset ??? Dementia Mother ??? Other Father Respiratory problems ??? Heart disease Sister ??? Breast cancer Sister ??? Cancer Son Scheduled Medications: [Held by provider] atorvastatin, 10 mg, oral, Nightly [START ON 04/17/2021] cefepime, 1 g, intravenous, q24h dextrose 50% (D50W), 25 g, intravenous, Once hydrocortisone sodium succinate, 50 mg, intravenous, q8h SUELLEN [Held by provider] levothyroxine, 75 mcg, oral, Daily magnesium sulfate, 2 g, intravenous, Once pantoprazole, 40 mg, intravenous, q12h REGULAR INSULIN, 0-6 Units, subcutaneous, q6h sodium zirconium cyclosilicate, 1 packet, oral, TID (LOKELMA) Continuous Infusions: norepinephrine, 0.5-20 mcg/min, Last Rate: 9 mcg/min (04/16/21 1326) PRN Medications: Insert peripheral IV AND lidocaine AND Maintain IV access AND Saline lock IV AND sodium chloride ??? Insert peripheral IV AND lidocaine AND Maintain IV access AND Saline lock IV AND sodium chloride ??? Insert peripheral IV AND lidocaine AND Maintain IV access AND Saline lock IV AND sodium chloride ??? LORazepam ??? morphine ??? naloxone ??? [COMPLETED] Prepare/Crossmatch RBC: 1 Units AND [COMPLETED] Transfuse RBC: 1 Units AND [COMPLETED] Nursing communication: Ensure provider has obtained Informed Consent for Blood Transfusion AND Vital Signs AND sodium chloride AND [COMPLETED] Nursing Communication: Transfusion Reaction Management ??? sodium chloride ??? sodium chloride EXAMINATION Vital Signs: Temp: [36.3 ??C (97.3 ??F)-37 ??C (98.6 ??F)] 37 ??C (98.6 ??F) Heart Rate: [59-111] 106 Respirations: [16-42] 35 BP: (40-158)/(14-110) 74/46 Admission: Weight: 72.6 kg Intake and Output: Intake/Output Summary (Last 24 hours) at 04/16/2021 1341 Last data filed at 04/16/2021 1033 Gross per 24 hour Intake 1336.25 ml Output 250 ml Net 1086.25 ml Physical Exam Vitals reviewed. Constitutional: General: She is in acute distress. Appearance: She is obese. She is ill-appearing. HENT: Head: Normocephalic. Mouth/Throat: Mouth: Mucous membranes are dry. Eyes: Extraocular Movements: Extraocular movements intact. Cardiovascular: Rate and Rhythm: Normal rate and regular rhythm. Pulses: Normal pulses. Heart sounds: No murmur heard. Pulmonary: Effort: Pulmonary effort is normal. No respiratory distress. Breath sounds: Rales present. No wheezing or rhonchi. Abdominal: General: There is distension (mild). Palpations: Abdomen is soft. Tenderness: There is abdominal tenderness (moderate to significant). There is guarding. Musculoskeletal: General: Tenderness and signs of injury present. Cervical back: Neck supple. Right lower leg: No edema. Left lower leg: No edema. Skin: General: Skin is warm. Coloration: Skin is pale. Skin is not jaundiced. Findings: Bruising (diffuse multiple), lesion and rash present. Neurological: Mental Status: She is alert. Cranial Nerves: No cranial nerve deficit. Motor: Weakness present. Comments: Exhibiting rigors and myoclonic jerks intermittently Responds to voice and touch but somnolent Labs: Hematology Results from last 7 days Lab Units 04/16/21 0635 04/16/21 0330 04/15/21 2324 WBC AUTO x10e3/uL -- -- 14.4* HEMOGLOBIN g/dL 8.7* 6.6* 8.0* HEMATOCRIT % -- -- 26.6* MCV fL -- -- 78* PLATELETS AUTO x10e3/uL -- -- 383 Coagulation Studies Results from last 7 days Lab Units 04/16/21 0330 INR 1.4* Chemistries Results from last 7 days Lab Units 04/16/21 0842 04/16/21 0635 04/16/21 0330 04/15/21 2324 04/15/21 2324 SODIUM mmol/L -- -- -- -- 130* POTASSIUM mmol/L 5.5* 6.0* 5.7* < > 6.8* CHLORIDE mmol/L -- -- -- -- 98 CO2 mmol/L -- -- -- -- 14* BUN mg/dL -- -- -- -- 131.0* CREATININE mg/dL -- -- -- -- 4.84* CALCIUM, SERUM mg/dL -- -- -- -- 8.2* MAGNESIUM mg/dL -- -- -- -- 2.2 PHOSPHORUS mg/dL -- 9.9* -- -- -- AST U/L -- -- -- -- 22 ALT U/L -- -- -- -- 26 BILIRUBIN TOTAL mg/dL -- -- -- -- 0.3 ALBUMIN g/dL -- -- -- -- 3.2* TOTAL PROTEIN g/dL -- -- -- -- 5.6* < > = values in this interval not displayed. Estimated Creatinine Clearance: 9.2 mL/min (A) (by C-G formula based on SCr of 4.84 mg/dL (H)). Urinalysis Results from last 7 days Lab Units 04/16/21 0038 UROBILINOGEN, URINALYSIS EU/dL 0.2 (Normal) RBC, URINALYSIS /HPF 0-2 WBC, URINALYSIS /HPF >50 Packed (TNTC)* Cardiac Enzymes No lab exists for component: TROPONINI Lipid Profile Imaging: XR CHEST 1 VIEW Result Date: 04/16/2021 IMPRESSION: Reduced inspiratory volume and when this is taken into account there is no definite acute airspace disease. There is crowding of the bronchovascular markings bilaterally slightly greater at the right lung base than at the left lung base. Dialysis catheter as discussed with tip in the rig ht atrium area. Reviewed by: Raymond Calderón M.D. on 04/16/2021 at 12:48 XR CHEST 1 VIEW Result Date: 04/16/2021 IMPRESSION: 1. No acute consolidation. Reviewed by: Osvaldo Bradshaw M.D. on 04/16/2021 at 9:29 ASSESSMENT AND PLAN Patient Active Problem List Diagnosis ??? Seronegative rheumatoid arthritis of multiple sites (CMS/HCC) ??? Osteoarthropathy ??? Type II diabetes mellitus with complication (CMS/HCC) ??? Renal insufficiency ??? Grief ??? Psoriatic arthritis (CMS/HCC) ??? Abdominal pain ??? Functional diarrhea ??? Nausea and vomiting ??? Excessive body weight loss Assessment: Ill appearing Plan: Acute Renal Failure on CKD IIIa Etiology likely due to ischemia secondary to hypotension, which may have been prolonged. Unclear with given history. 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; treat with Wound care Hyperkalemia Etiology; due to CAMILLE, possibly pt was on EMILY at home as well - Received calcium gluconate, Bicarbonate, regular insulin infusions - Potassium check q6 hr - Plan for dialysis as above Metabolic acidosis Likely due to CAMILLE & inability to reabsorb bicarbonate, hypoperfusion & lactic acidosis - Received bicarbonate infusion - Plan for dialysis Hyponatremia Mild, Likely due to acute illness (sepsis) and/or depressed PO intake - Will correct with dialysis as above Anemia Baseline Hgb 13, etiology possibly related to GI bleed as there is positive FOBT Iron profile suggests iron deficiency with some element of chronic disease - Received 1 unit PRBCs - Transfuse <7, no history cardiac dz - H&H q8 hrs Thank you for allowing us to participate in the care of your patient. We will follow along with you. Electronically signed by Ricardo Griffin DO 04/16/21 1:41 PM Service: Nephrology Portions of today's documentation have been created with the assistance of voice recognition software. Therefore, it may contain anomalous punctuation, anomalous independent misrecognitions, word substitutions, insertions or omissions. Occasional wrong-word or phonetically similar substitutions may also occur, all due to the inherent limitations of voice recognition software. Attempts to correct the above have been made by Ricardo Griffin DO, but it is recommended that the chart be read carefully to recognize, using context, where the substitutions may have occurred. Attending: Dr. Feliciano Pager: [phone] signed by Hernando Whatley MD at 04/16/2021 3:30 PM PDT Associated attestation - Hernando Whatley MD - 04/16/2021 3:30 PM PDT Patient was seen and examined. Case discussed with resident. I reviewed the resident???s note. I agree with the resident???s findings and plan. # Septic shock # Complicated UTI # CAMILLE due to sepsis, ATN and acute pyelonephritis UA: TNTC WBCs and many RTEs. # H/o nephrolithiasis Plan: Given oliguria and uremic symptoms (confusion and myoclonus), the patient requires renal replacementtherapy today. Obtain CT KUB to rule out obstruction. Thank you for the consultation. MD Blaze Pineda Catherine, PharmD - 04/16/2021 3:16 AM PDTAssociated Order(s): PHARMACY TO DOSE VANCO Vancomycin Management Per Pharmacy Indication: Cellulitis/Sepsis TDM Goal: AUC ? 400 Age: 75 y.o. Weight: 72.6 kg Height: 1.524 m Relevant Micro: - 04/15 blood culture in process - 04/15 urine culture in process - 04/15 respiratory panel negative Assessment: Pt is a 75 y.o. female anticoagulated with apixaban with a PMH notable for T2DM, HTN, hyperlipidemia, CKD, and rheumatoid arthritis who presents to the ED for evaluation of altered mental status. She is currently being treated with levofloxacin and amoxicillin for bilateral wounds on both l egs by the Wound Care center, and endorses leg pain. - Concurrently receiving cefepime inpatient - Afebrile. Hypotensive and tachycardic upon presentation - Leukocytosis present. Lactic acid elevated - CAMILLE. Baseline Scr ~ 0.9-1.2 Plan: - Loading dose: 1500 mg x1 in the ED (20.7 mg/kg actual body weight) Vancomycin Level(s) Due: Please re-consult pharmacy if vancomycin is to be continued inpatient. Dosing Table: Date 04/16 WBC 14.4 SCr 4.84 Vanc Dose 1500 mg x1 @ 0228 Vanc Level(s) Nephrotoxic Risk Factors: CAMILLE, Dehydration (BUN:SCr > 20:1) at Vancomycin initiation, Goal trough> 15, Chronic baseline HTN , Diabetes, Acute hypotensive event, and Sepsis. documented in this encounter Nursing Notes Richa Carroll I, RN - 05/25/2021 6:15 PM PDT Assumed care of Lou from Romy RN. Bedside safety check and hand-off done. Allergies reviewed. Found patient awake in bed. Whiteboard updated with plan of care for today. Bed low and locked, call light in reach. Neuro: A+Ox4 Pain: 8/10 Chronic pain to BLE. Relieved with norco prn. HEENT: Wears glasses Cardiac: SR. Denies cardiac symptoms. Resp: WDL GI: WDL. Bowel sounds present x4. B : WDL Skin: Wounds to BLE, followed by flat grinder operator, skin tears to BUE, blanchable redness to coccyx. Musculoskeletal: Weakness to BLE. SBA with FWW. Access/gtts: PIV x2 SL Psychosocial: WDL Blood Sugars: 156, 246, 229 Report given to NOC RN. Bedside safety check and hand-off done. Richa HO, RN Razia Rand RN - 05/23/2021 6:23 AM PDT Patient has remained in SR with stable BP throughout NOC shift. Patient did c/o generalized pain butfelt that it was a panic attack and was given Valium that is ordered for her anxiety. After receiving the Valium patient was able to rest. Shira Hughes RN - 05/22/2021 6:53 PM PDT BP 112/72 (BP Location: Right arm, Patient Position: Semi-Mims's) Pulse 69 Temp 36.6 ??C (97.9 ??F) (Oral) Resp 16 Ht 1.524 m Wt 74.6 kg SpO2 97% BMI 32.12 kg/m?? The patient was transferred to PCC room 2002 at 1840. Amiodarone gtt to be started upon arrival to unit. Report given to Kristina Larsen RN. GEORGIA Hernadez, BLAINE 05/22/2021 6:53 PM Shira Hughes RN - 05/22/2021 2:59 PM PDT Report received from Smiley ROYAL. Bedside safety check completed. Care assumed at 1458. GEORGIA Hernadez, RN 05/22/2021 2:59 PM Smiley Reddy RN - 05/21/2021 6:23 PM PDT Patient transferred from [facility] ~1800. Oriented to room [facility] on [facility] [place]. Call light within reach. Bed locked and in lowest position. PRN [place] administered for 8/10 pain to BLE and back. Dressing to BLE clean, dry, intact. Alert and oriented x4. 1PA with FWW. Telemetry reads NSR. Lung sounds clear bilaterally. PIV saline-locked. Hourly rounding and care measures continue. Mojgan Castano RN - 05/21/2021 5:11 PM PDT Neuro: A&Ox4. 1PA to bedside commode and chair. Cardiac: Tele afib in 120's, which coverted around 0800 this AM; tele SR 70/80's with stable BP for rest of day. Respiratory: Tolerating RA. Clear lung sounds. GI: LBM 05/21. Tolerating small amounts of PO intake with periods of indigestion/nausea relieved withzofran. : Up to commode to urinate. Skin: BLE wounds redressed today, which Lou stated hurt a little less as compared to the last dressing change. Sites look much improved - new pictures entered into chart. Mepilex on coccyx remains clean/dry/intact. Pain: [place] administered for generalized and lower extremity pain. Dilaudid admin for LE wound care. Gtt: x1 PIV, SL. Report given to BLAINE Tate on [facility] [place] and patient transferred with all belongings to [facility] [place]. Dinorah Dsouza RN - 05/21/2021 7:35 AM PDT Pt transferred from [facility] to CCU #[id number] approx 0520 for hypotension. Tele Afib, 120s. A/O. SBP 90-130, DBP 50-60s. IVP lopressor brought HR down to 110, BP 91/45. Pt wanting bed schroeder after and HR back to120. RA sats mid to high 90s. RR low teens at rest, 20s w/ activity. C/o LLE sharp pain. Denies dyspnea, N/V. [place] given. Phenylephrine up and ready to start if needed. Cari Juarez RN - 05/20/2021 6:23 PM PDT 1623: Report given to Kai Curtis RN. Pt now being transferred back to room [facility]. Cari Juarez RN - 05/20/2021 6:05 PM PDT 1804: To recovery, asleep. VSS. IV fluids infusing, line patent. Tarah Alcazar RN - 05/20/2021 5:54 PM PDT Anesthesia in room for procedure. All fluids, vitals, medications, and airway by MAC. GEJ AT 39cm per MD Louise Tello RN - 05/20/2021 4:21 PM PDT Pt brought from [place] [id number] to [facility] by wheelchair, weepy in halls I've been through so much, I'm just so scared. Comforted pt as much as able. Currently waiting on provider for consent. Dani Conklin RN - 05/19/2021 7:26 PM PDT DAYS 7-7 Patient received one units RBC's for Hgb of 7.7 that has been trending down, NPO for EDG tomorrow. Patient had a heart cath yesterday with stent to LAD, right groin bruising and induration. Telemetry SR, RA, ADA diet with BG 131-222. BLE had w/c wraps,pedial pulses marked with doppler. [place] for painand Valium for anxiety given today. Samantha Garcia RN - 05/18/2021 6:08 PM PDT Pain Wound care was done this evening and pt complaining of a lot of pain. Ice applied by flat grinder operator while I pulled the Dilaudid. Dilaudid didn't help much so we tried oral pain medications along with being re positioned. PT requesting pain medications prior to wound care next time. Samantha Arriaza RN Lyly, Marianne Jernigan RN - 05/18/2021 3:41 AM PDT Rapid Response Rounding Note Assessed patient due to formation of right groin hematoma. Borders outlined. Manual pressure held and sandbag placed. Chart review performed. CBC already ordered for AM labs. No other assistance/Intervention needed at this time, no significant abnormal values during chart review. Susanna Agrawal RN - 05/17/2021 8:13 PM PDT Arrived to [facility] post procedure. [facility] Pt denies pain or discomfort. Site R TR band C/D/I and R groin dressing C/D/I. POC, use and safety precautions reviewed. See flowsheet notes for recovery flow and site management. Pt reports generalized pain, declines offer of pain med, just want to sleep. B/P elevated, IV fluids held. Pt resting quietly, no apparent signs of pain. Call light in reach. Family at bedside, pt requesting to eat. Food at bedside, pt reports is choking. RN at bedside. O2 sats and Air sounds clear. RT call for assistance, suctioned at bedside. Pt reports this is normal when I eat meat or rice. Pt able to breathe without any additional reports of choking. Food removed from bedside. Call light in reach. TR band release initiated. No signs of bleeding noted. Call light in reach. Groin bleed noted. Dressing removed, pressure held firmly by hand x 10 minutes by this RN. Hemostasis reached and groin redressed with Gauze and Tegaderm. Call light in reach. Rey Kirby RN - 05/17/2021 1:51 PM PDT See Liliana documentation for sedation vital signs. Denise Lee RN - 05/15/2021 2:43 PM PDT Called to patient room for evaluation of chest pain at 1340. On arrival Lou is without observed distress and is eating a meal. VS 134/81, 98% on RA, RR 16 easy and unlabored, saturations 98% on RA. C/O mid sternal chest pain 7/10 without radiation or respiratory variation. No n/v or diaphoresis. EKGprior to arrival with t wave inversions in multiple leads. Medicated with NTG SL x1 without relief or chane in CP but significant drop in blood pressure down to 91/60 and then 72/45 with c/o feeling faint. BP improved to 104/68 without intervention. No further NGT offered or attempted. Dr Lowry has assessed patient and is at bedside. Mild CP remains. Lou is tearful and anxious, encouraged to rest,room adjusted for comfort. Tele monitor applied, serial cardiac labs ordered. Primary RN will continue observation. len, Richa Burleson RN - 05/13/2021 6:24 PM PDT Assumed care of Lou from Javier ROYAL around 1000. Bedside safety check and hand- off done. Allergies reviewed. Found patient awake in bed. Whiteboard updated with plan of care for today. Bed low and locked, call light in reach. Neuro: A+Ox4 Pain: 5/10 chronic pain HEENT: Wears glasses Cardiac: Denies cardiac symptoms Resp: Lung sounds clear but diminished. GI: Nauseous throughout shift. Bowel sounds present x4. : WDL Skin: Scattered redness, bruises, wounds to BLE Musculoskeletal: SBA Access/gtts: PIV x1 SL Psychosocial: Anxious at times, easily flustered with cares Blood Sugars: 116, 98, 94 Shift Events: 1530 - plant controls specialist at bedside for dressing change. New dressing change orders in. Report given to NOC RN. Bedside safety check and hand-off done. Richa HO, RN Gemini Dwyer RN - 05/11/2021 11:26 AM PDT Multidisciplinary Care About [id number] - Received a [id number] report from BLAINE Rojas (NOC Shift). Performed a bedside safety check. 0852 - Dr. Griffin discussed her care with this nurse and then rounded on her. 939 - BLAINE Jones (Wound Therapy) and the Surgical PA rounded on her. 1800 - She was working with Sugar (Physical Therapy) who reported she broke down crying a couple of times during Therapy and appeared to be scared she wouldn't return to her life as it was before. Dr. Griffin had ordered some antidepressants for her. About [id number] - Gave a [id number] report to BLAINE Rojas ([facility] Shift). Performed a bedside safety check. Care continues. upis Alvarenga RN - 05/10/2021 6:36 PM PDT Activity/wound care Assumed care of patient at 1420 after receiving report from day rn. Seen by wound care nurse and bilateral dressing to lower extremities changed. New mepilex placed to coccyx per day RN. Patient turned and repositioned q 2 hours. Will give report to oncoming rn at 1900. Romy Leach RN - 05/10/2021 5:50 AM PDT Patient has developing eschar in R calf wound. Will need to have another wound consult and advise better treatment than medihoney gel. Will notify day team to contact wound care. Halle Flowers RN - 05/06/2021 7:29 PM PDT Assumed care of patient at 0700, patient up to BSC during bedside rounds. Patient given PRN oxycodone for back pain with AM medications. Encouraging fluids for patient. IV infiltrated/accidentally removed x2 during shift, IV therapy able to establish one PIV. Patient given IV Magnesium 2G. Unable to ad diamond sizer and grader 1L bolus d/t loss of IV access after magnesium. Call light in reach, bed low and locked, hourly rounding done. icha Carroll RN - 05/04/2021 10:57 AM PDT Lou Jernigan+Ox2-3 this AM. VSS. 1PA from bed to chair or commode. Complaints of 9/10 back and thigh pain, relieved with PO oxycodone. Report given to Brigette Blake updated on plan of care. Richa HO, RN Zakia Espinoza - 05/02/2021 5:38 AM PDT Pt A&Ox3. Delayed responses. Intermittent confusion. Scattered skin tears, bruising. Buttocks/coccyx foam dressing changed after incontinent episode as well as BLE dressings d/t stool covering dressings. Dressing changes performed per orders. Wound bed red/yellow with large amount of purulent drainage. Pt c/o pain at that time and oxycodone given per orders. Pt turned q 2 hours. Up to bedside commode earlier in night with small BM. Uses call light. Hourly rounding completed. Will continue to monitor. Brigette Hartley RN - 05/01/2021 6:09 PM PDT Report received and bedside safety checks made. A+Ox3. RA. Intermittent confusion and word retrievalissues. Denies pain. Moans with pain with position changes. Multiple skin tears to BUE. Bruising to L neck. M Drgs to BLE CDI. Drg to be changed tomorrow. Mepilex to coccyx changed. CGA to stand. Sat in chair for meals. Independent with feeding self. Awaiting placement at SNF. Hourly rounding completed with all needs being met. Ashley Dyson RN - 04/28/2021 2:37 PM PDT Pt arrived to [facility] [place] [place] at 1300. A/ox1, Q2T- drowsy, delayed responses. Dressings to calf wounds CDI, multiple skin tears on BUE dressings CDI, bruising to neck. 1612- D5NS stopped per Dr. Johnson BS 250, insulin given. Pt 1:1 feed for dinner. Denise Robert RN - 04/25/2021 8:02 PM PDT NEWS REVIEW NOTE Primary Care Nurse: Romy Walters MACHINE MAINTENANCE MECHANIC Nurse: Debbi Teague Background: Shirin Aguillon is a 75 y.o. female anticoagulated with Eliquis??with a hx notable fortype II diabetes mellitus, hypertension, hyperlipidemia, kidney dysfunction, and rheumatoid arthritis??who presents to the ED??for evaluation of altered mental status and found to be in CAMILLE with hyperkalemia. Relevant Vital signs: 04/25/211927 Vitals Temp 36.8 ??C (98.2 ??F) Temp Source Axillary Heart Rate Source Monitor BP (!) 179/85 MAP 116.33 mmHg BP Location Right arm BP Method Automatic Patient Position Semi-Mims's Oxygen Therapy Pulse Oximetry Type Continuous Patient Activity At rest Oxygen Therapy None (Room air) NEWS Score: 6 Plan: chart reviewed, message to RN, WCFUAD Samantha Garcia RN - 04/24/2021 4:53 PM PDT Wean O2/ Left IJ Pt able to come off O2 earlier this morning but requiring 1L while napping this afternoon. Left I J was bruised this am but this afternoon seemed more bruised and swollen. IV therapy assessed and its ok, possible hematoma. MD aware and will keep a close eye on it. Samantha Arriaza RN Analisa Tello RN - 04/24/2021 7:43 AM PDT Rapid Resopnse Rounding NEWS score of 8. Chart reviewed for labs, vitals, and notes. Pt has Sepsis, CAMILLE, A-fib, positive troponins. Unable to perform heart cath at this time due to CAMILLE. Cardiology and Nephrology consults are following pt. Secure chat sent to Samantha Arriaza offering support and assistance. Plan to continue to follow. Trinity Burns RN - 04/23/2021 4:10 AM PDT Pt does not open eyes or following commands. Grabs at lines, restraints in place for safety. Bicarbgoing at 150ml/hr. Small amount of urine output from howard. x2 Large loose yellow incontinent stool, FMS placed. Glucerna 1.5 started at trickle at 2000. Hypertensive, PRN Labetalol given at 2300, BP's stable. HR SR 80', runs of SVT 120's. 6L oxymask with Spo2 is 98% Pt Yelling out and moaning, gave PRN Haldol at 0300. Complete bed change and bed bath completed. IV ABX running. Angie Carreno RN - 04/22/2021 5:54 PM PDT 0700 report and safety checks, pt lung sounds course when entering room, tachypnic, hypertensive. Spoke to ressident about concerns with fluid status, breathing, and anticoaguation. Orders received, pttransferred to ccu. 1700 pt busy during the day with procedures, ct scan and line placement. Bicarb drip infsuing, confirmed with MD that this will run tonight and repeat labs tino be taken. Added heel lift boots for feet as they are turning a bit pink. Wound care done on bilateral leg wounds. Pt has periods of svt but pops back out without intervention, Cdiff sent for loose stool. Behzad Ching RN - 04/20/2021 7:32 PM PDT Alert to self, 2 point NV restraints , ordered and charted Limited IV access , Feeding tube was ordered , [address] , X-Ray showed not successful Provider aware , adjustments to medications and nutrition are being made . Family visited in the afternoon. [facility] breakdown [facility] and providers are aware . Social work has been notified that appropriate placement upon discharge will be difficult and complicated Tele: SR-S-Tach Behzad Jaquez RN - 04/19/2021 4:38 PM PDT Alert to self. 2 point NV restraints Wounds on chest on both arms Both legs Coccyx being followed by wound care . Dressings changed this shift. This patient will need consultation by social work. She seems at risk for severe complications . 4 L O2 per NC Blood pressure was elevated in morning, as was heart rate. Gave IV Morphine and IV ativan , PRN Labetalol . BP ad HR returned to acceptable levels. Tele, SR. Paola Roberts RN - 04/19/2021 12:07 AM PDT Pt. Agitated/restless, actively and frequently attempting to remove trialysis catheter. Frequently attempting jump out of bed, pt. Is weak and unsteady, on strict bedrest per report. Dr. Wild notifiedof pt. condition, orders received for non-violent bilateral wrist restraints. Attempted to re-directand calm pt. multiple times unsuccessfully, bilateral wrist restraints placed. Report given to Bobby Wells RN, care transferred. Chip Hook RN - 04/18/2021 12:52 AM PDT Transferred care to FRANCE Fagan RN. Pt VSS on 4L NC, A+Ox4 with transient confusion and forgetfulness.NPO for sx in AM arhad Cruz RN - 04/16/2021 5:32 AM PDT Patient handed off to Chip Ash after BP failing to respond to NS bolus documented in this encounter ED Notes Doe Rowe, - 04/15/2021 10:04 PM PDTAssociated Order(s): Critical Care Images from the original note were not included. EMERGENCY DEPARTMENT ENCOUNTER Patient Name: Shirin Aguillon : 1945 Room #: Visit Date: 04/15/2021 Mode of Arrival:Car Accompanied by: Self Primary Care Provider: Rogelio Braga MD CHIEF COMPLAINT Chief Complaint Patient presents with ??? Altered Mental Status ??? Shortness of Breath History of Present Illness: Shirin Aguillon is a 75 y.o. female anticoagulated with Eliquis with a hx notable for type II diabetes mellitus, hypertension, hyperlipidemia, kidney dysfunction, and rheumatoid arthritis who presents to the ED for evaluation of altered mental status. The patient arrives with family at bedside, because for the last four to five days, she has been experiencing increasing confusion, weakness, and fatigue. Additionally, her hands are tremulous at bedside, but family at bedside states that she has been more tremulous over the last several days. Three days ago, she states that she was swallowing one of her antibiotics currently taking for wound care, when she aspirated the pill momentarily. She reports that she has had an intermittent cough and mild shortness of breath since the event, though this improves with her Flovent nebulizer treatment. She is currently being treated with levofloxacin and amoxicillin for bilateral wounds on both legs by the [facility], and endorses leg pain. She denies fever or diaphoresis, and states that she is fully immunized against COVID-19. HPI Chief complaint: Altered mental status Duration: Four to five days Timing: Constant Location: Neurological Quality: Confusion Severity: Moderate Modifying Factors: None reported; Flovent nebulizer with improvement of SOB Associated Symptoms: Weakness, fatigue, tremors, cough, shortness of breath, leg pain Context: Anticoagulated with Eliquis with a hx notable for type II diabetes mellitus, hypertension, hyperlipidemia, kidney dysfunction, and rheumatoid arthritis Primary Care Provider: Rogelio Braga MD Past Medical History: Past Medical History: Diagnosis Date ??? Abdominal pain ??? Arthritis ??? Arthritis, rheumatoid (CMS/HCC) ??? Chronic diarrhea ??? Delayed emergence from general anesthesia ??? Diabetes (CMS/HCC) ??? Disorder Nearly severed pinky finger ??? Gallbladder disease ??? H/O recurrent pneumonia ??? Hyperlipidemia ??? Hypertension ??? Kidney disease Kidney dysfunction ??? Low back pain ongoing ??? Migraine headache ??? Neuropathy ??? PONV (postoperative nausea and vomiting) ??? Skin cancer ??? Thyroid disease ??? Tubular adenoma Ileocecal valve tubular adenoma ??? UTI (urinary tract infection) ??? Weight loss, non-intentional Past Surgical History: Procedure Laterality Date ??? ABDOMINAL SURGERY ??? APPENDECTOMY 2016 along with colectomy ??? BACK SURGERY Major back surgery ??? CARPAL TUNNEL RELEASE ??? CHOLECYSTECTOMY ??? COLONOSCOPY 2 x ??? LAPAROSCOPIC ASSISSTED TOTAL COLECTOMY W/ J-POUCH Right 04/12/2017 ??? DC COLONOSCOPY W/BIOPSY SINGLE/MULTIPLE N/A 07/31/2020 Procedure: COLONOSCOPY; Surgeon: Mike Laguna MD; Location: [facility]; Service: Gastroenterology ??? DC EDG TRANSORAL BIOPSY SINGLE/MULTIPLE N/A 07/31/2020 Procedure: EGD; Surgeon: Mike Laguna MD; Location: [facility]; Service: Gastroenterology ??? SHOULDER SURGERY 2008 Shoulder repair ??? SPINAL FUSION Fusion, et al 4 procedures in one 2011 ??? TUBAL LIGATION 1976 Family History Problem Relation Age of Onset ??? Dementia Mother ??? Other Father Respiratory problems ??? Heart disease Sister ??? Breast cancer Sister ??? Cancer Son Social History Tobacco Use ??? Smoking status: Never Smoker ??? Smokeless tobacco: Never Used Substance and Sexual Activity ??? Alcohol use: No Alcohol/week: 0.0 standard drinks ??? Drug use: No ??? Sexual activity: Not Currently Partners: Male control/protection: Surgical Comment: many surgeries over the years....not listed Allergies Allergen Reactions ??? Bactrim [Sulfamethoxazole-Trimethoprim] Swelling ??? Betadine [Povidone-Iodine] ??? Fish Derived ??? Iodine ??? Other [place] products ??? Shellfish Containing Products Current Medication List Sig acetaminophen (TYLENOL) 500 mg tablet every 8 (eight) hours as needed. Number of times this order has been changed since signin Order [place] [place] aspirin 81 mg EC tablet daily. atorvastatin (LIPITOR) 20 mg tablet Take 10 mg by mouth daily Number of times this order has been changed since signin Order [facility] [place] cholecalciferol, vitamin D3, 400 unit capsule 1 po qd cranberry 400 mg capsule 1 po bid cyclobenzaprine (FLEXERIL) 10 mg tablet Take 10 mg by mouth as needed Number of times this order has been changed since signin Order [facility] [place] diazePAM (VALIUM) 5 mg tablet Take 5 mg by mouth as needed for anxiety diltiazem CD (CARDIZEM CD) 240 mg 24 hr capsule Take 1 capsule (240 mg total) by mouth daily Number of times this order has been changed since signin Order [facility] [place] fenofibrate 150 mg capsule 1 capsule daily 160 mg Number of times this order has been changed since signin Order [facility] [place] gabapentin (NEURONTIN) 300 mg capsule 1 capsule daily. glipiZIDE (GLUCOTROL) 10 mg tablet Take 5 mg by mouth 2 (two) times a day before meals Number of times this order has been changed since signin Order [facility] [place] Lactobacillus acidophilus 10 billion cell capsule 1 po bid levothyroxine (SYNTHROID, LEVOTHROID) 25 mcg tablet Take 75 mcg by mouth daily Number of times this order has been changed since signin Order [facility] [place] metFORMIN (GLUCOPHAGE) 500 mg tablet every 12 hours. metroNIDAZOLE (FLAGYL) 500 mg tablet Take 0.5 tablets (250 mg total) by mouth 3 (three) times a day Number of times this order has been changed since signin Order [facility] [place] MULTIVIT WITH MINERALS/LUTEIN (MULTIVITAMIN 50 PLUS ORAL) 1 po daily oxybutynin (DITROPAN) 5 mg tablet every 12 hours. predniSONE (DELTASONE) 10 mg tablet Take as directed by MD Number of times this order has been changed since signin Order [facility] [place] traZODone (DESYREL) 50 mg tablet Review of Systems: Review of Systems Constitutional: Positive for fatigue. Negative for diaphoresis and fever. Respiratory: Positive for cough and shortness of breath. Musculoskeletal: Positive for leg pain Neurological: Positive for tremors and weakness. Psychiatric/Behavioral: Positive for confusion. All other systems reviewed and are negative. Physical Exam: ED Triage Vitals Temp Heart Rate Resp BP SpO2 04/15/21212604/15/21212604/15/21212604/15/21212604/15/212126 36.3 ??C (97.3 ??F) (!) 106 20 90/49 100 % Temp src Heart Rate Source Patient Position BP Location FiO2 (%) -- 04/15/21 2300 04/15/21 2300 04/15/21 230 -- Monitor Semi-Mims's Left arm Physical Exam Vitals and nursing note reviewed. Exam conducted with a dough braker present. Constitutional: Appearance: Normal appearance. HENT: Head: Normocephalic and atraumatic. Nose: Nose normal. Mouth/Throat: Mouth: Mucous membranes are moist. Pharynx: Oropharynx is clear. Eyes: Conjunctiva/sclera: Conjunctivae normal. Cardiovascular: Rate and Rhythm: Regular rhythm. Tachycardia present. Pulses: Normal pulses. Heart sounds: Normal heart sounds. Pulmonary: Effort: Pulmonary effort is normal. Breath sounds: Normal breath sounds. Comments: The patient's lungs are clear to auscultation. They are respiring unlabored. Abdominal: General: There is no distension. Palpations: Abdomen is soft. Tenderness: There is no abdominal tenderness. Comments: Abdomen is soft and rotund. Genitourinary: Rectum: Guaiac result positive. Comments: Upon digital rectal exam, stool is brown in color however is guaiac positive. Musculoskeletal: General: Normal range of motion. Cervical back: Normal range of motion and neck supple. Right lower leg: Edema present. Left lower leg: Edema present. Comments: There is 1+ edema bilaterally to the lower extremities. Skin: General: Skin is warm and dry. Comments: On her lateral calves, there are bilateral purulent-appearing skin ulcerations, withoutsurrounding cellulitic extension or palpable abscess. There is necrotic tissue within the wound itself but no extension beyond the wound. There is a skin tear of her right forearm. Her skin is without crepitus. Neurological: General: No focal deficit present. Mental Status: She is alert and oriented to person, place, and time. Comments: She has a resting tremor. She is alert, oriented, and conversing well. Tibial posterior (right) Lower arm posterior (right) Posterior elbow (Right) Leg lateral posterior (Left) Labs: Labs Reviewed COMPREHENSIVE METABOLIC PANEL - Abnormal Result Value Sodium 130 (*) Potassium 6.8 (*) Chloride 98 CO2 14 (*) Anion Gap 18 (*) BUN 131.0 (*) Creatinine 4.84 (*) Glucose, Serum 107 (*) Calcium 8.2 (*) AST 22 ALT 26 Alkaline Phosphatase 116 Total Protein 5.6 (*) eGFR (CKD-EPI) 8 (*) Albumin 3.2 (*) Bilirubin, Total 0.3 BUN/Creatinine Ratio 27.1 (*) LACTIC ACID - Abnormal Lactic Acid 2.9 (*) PROCALCITONIN - Abnormal Procalcitonin 1.35 (*) URINALYSIS (DIP ONLY) - Abnormal Color, UA Yellow Clarity, UA Clear Specific [place], UA 1.025 pH, UA 5.0 Leukocytes, UA Moderate (*) Nitrite, UA Negative Protein, UA 100 (*) Glucose, UA Negative Ketones, UA Negative Urobilinogen, UA 0.2 (Normal) Bilirubin, UA Negative Blood/Hemoglobin, UA Trace-Intact (*) Reflex to Urine Microscopic Yes Reflex to Urine Culture Yes Reflex to Ictotest, Urine No URINE MICROSCOPIC - Abnormal WBC, UA >50 Packed (TNTC) (*) RBC, UA 0-2 Bacteria, UA Moderate (*) Squamous Epithelial Cells, Urine Occasional Reflex to Urine Culture Yes IRON PROFILE - Abnormal Iron Binding Unsaturated 209 % Iron Saturation 11 (*) Total Iron Binding Capacity 234 (*) Iron 25 (*) IRON PROFILE - Abnormal Iron Binding Unsaturated 278 % Iron Saturation 10 (*) Total Iron Binding Capacity 309 Iron 31 (*) HEMOGLOBIN A1C - Abnormal Hemoglobin A1c 9.0 (*) Estimated Average Glucose (eAG) 212 Hemoglobin A1C Comment See Below PROCALCITONIN - Abnormal Procalcitonin 1.17 (*) POTASSIUM - Abnormal Potassium 5.7 (*) HEMOGLOBIN - Abnormal Hemoglobin 6.6 (*) PROTHROMBIN TIME INR - Abnormal Prothrombin Time 17.2 (*) INR 1.4 (*) POCT GLUCOSE - Abnormal POCT Glucose, Blood 163 (*) POCT GLUCOSE - Abnormal POCT Glucose, Blood 146 (*) COMPLETE BLOOD COUNT WITH DIFF RESULT - Abnormal WBC Auto 14.4 (*) RBC 3.40 (*) Hemoglobin 8.0 (*) Hematocrit 26.6 (*) MCV 78 (*) MCH 23.5 (*) MCHC 30.1 (*) RDW 18.9 (*) Platelets 383 MPV 10.8 (*) NRBC % 1 Abs. NRBC 0.2 % Neutrophils 74 % Lymphocytes 11 % Monocytes 7 % Eosinophils 5 % Basophils 0 Abs. Neutrophils 10.6 (*) Abs. Lymphocytes 1.6 Abs. Monocytes 1.0 Abs. Eosinophils 0.7 (*) Abs. Basophils 0.0 Abs. Neutrophils (Auto) 10,600.0 (*) RESPIRATORY PCR PANEL (INCLUDES SARS-COV-2 (COVID-19)) - Normal Adenovirus Detection by PCR Not Detected Coronavirus 229E Detection by PCR Not Detected Coronavirus HKU1 Detection by PCR Not Detected Coronavirus NL63 Detection by PCR Not Detected Coronavirus OC43 Detection by PCR Not Detected SARS-CoV-2 (COVID-19) Qual PCR Not Detected Metapneumovirus PCR Not Detected Rhinovirus/Enterovirus PCR Not Detected Influenza A PCR Not Detected Influenza B PCR Not Detected Parainfluenza 1 PCR Not Detected Parainfluenza 2 PCR Not Detected Parainfluenza 3 PCR Not Detected Parainfluenza 4 PCR Not Detected Respiratory Syncytial Virus PCR Not Detected Bordetella parapertussis (OL8627) PCR Not Detected Bordetella pertussis PCR Not Detected Chlamydia pneumoniae PCR Not Detected Mycoplasma pneumoniae PCR Not Detected Narrative: PSYCHIATRIC REGISTERED NURSE swab is the only specimen type cleared by the FDA. Nasal wash, tracheal aspirate, and bronchial lavage specimen types have not been cleared by the FDA. Therefore results on any specimen type other than nasopharyngeal are considered investigational testing only. MAGNESIUM - Normal Magnesium 2.2 THYROID STIMULATING HORMONE, REFLEX TO FREE T4 - Normal TSH 3.650 LACTIC ACID - Normal Lactic Acid 1.7 PARTIAL THROMBOPLASTIN TIME, ACTIVATED - Normal aPTT 31.6 CULTURE, BLOOD CULTURE, BLOOD CULTURE, URINE COMPLETE BLOOD COUNT WITH DIFF Narrative: The following orders were created for panel order CBC with diff. Procedure Abnormality Status --------- ------ Complete blood count with...[[id number]] Abnormal Final result Please view results for these tests on the individual orders. TYPE AND SCREEN ABORh O NEGATIVE Antibody Screen NEGATIVE Patient History Check NO RECORDS ON FILE Reflex to ABO/Rh Type Confirmation YES URINALYSIS WITH MICROSCOPIC, REFLEX CULTURE IF INDICATED Narrative: The following orders were created for panel order Urinalysis w/ microscopic, culture if indicated. Procedure Abnormality Status --------- ------ Urinalysis (dip only)[[id number]] Abnormal Final result Urine microscopic[[id number]] Abnormal Final result Please view results for these tests on the individual orders. ABO/RH TYPE CONFIRMATION ABORh O Negative OCCULT BLOOD, FECAL BLOOD GAS VENOUS LACTIC ACID PROCALCITONIN TROPONIN BLOOD GAS ARTERIAL HEMOGLOBIN POCT GLUCOSE POCT GLUCOSE POCT GLUCOSE POCT GLUCOSE POCT GLUCOSE POCT GLUCOSE POCT GLUCOSE PREPARE/CROSSMATCH RBC Diagnostic Imaging: XR CHEST 1 VIEW Impression: No consolidation. Electronically signed on Apr 15, 2021 11:32 PM PDT by Skip Fermin MD EKG Time: 10:24 PM Interpretation: Atrial fibrillation rate 88, left axis deviation, nonspecific T abnormalities (lateral leads) Interpreted by Doe Rowe DO Meds Given this Visit: ED Medication Administration from 04/15/2021 2124 to 04/16/2021 0242 Date/Time Order Dose Route Action Action by 04/15/2021 2352 morphine injection 4 mg 4 mg intravenous Given Marcelo, Rere 04/16/2021 0017 sodium chloride 0.9 % bolus 1,000 mL intravenous Canceled Entry Sebastián Rowe 04/16/2021134 calcium gluconate 100 mg/mL (10%) injection 1 g 1 g intravenous Given Marcelo, Rere 04/16/2021130 REGULAR INSULIN (HumuLIN R) injection 5 Units 5 Units intravenous Given Marcelo, A 04/16/2021129 dextrose 50 % in water (D50W) g injection 25 g 25 g intravenous Given Marcelo, A 04/16/2021129 sodium bicarbonate 8.4 % (1 mEq/mL) injection 50 mEq 50 mEq intravenous Given Marcelo, A 04/16/2021137 cefepime (MAXIPIME) 2 g in sodium chloride 0.9 % mini-bag plus (NS) 50 mL IVPB 2 gintravenous New Bag Marcelo, A 04/16/2021 020 cefepime (MAXIPIME) 2 g in sodium chloride 0.9 % mini-bag plus (NS) 50 mL IVPB 0 gintravenous Stopped Marcelo, Rere 04/16/2021130 pantoprazole (PROTONIX) injection 80 mg 80 mg intravenous Given Marcelo, A 04/16/2021227 vancomycin 1500mg IVPB in NS 500 mL premix 1,500 mg intravenous New Bag Marcelo, A 04/16/2021129 sodium chloride 0.9 % bolus 2,178 mL 2,178 mL intravenous New Bag Rere Robertson Procedure(s): Critical Care Performed by: Doe Rowe DO Authorized by: Doe Rowe DO Critical care provider statement: Critical Care Time (min): 30 Critical care time was exclusive of: Separately billable procedures and treating other patients Critical care was necessary to treat or prevent imminent or life-threatening deterioration of the following conditions: Sepsis and renal failure Critical care was time spent personally by me on the following activities: Blood draw for specimens, development of treatment plan with patient or surrogate, discussions with consultants, evaluationof patient's response to treatment, examination of patient, obtaining history from patient or surrogate, ordering and performing treatments and interventions, ordering and review of radiographic studies, ordering and review of laboratory studies, pulse oximetry, re-evaluation of patient's condition and review of old charts I assumed direction of critical care for this patient from another provider in my specialty: no Review of records obtained in care everywhere, chart review and where available Medical Decision Making: Patient seen and evaluated. She is ill-appearing, lower extremity skin wounds are foul-smelling, she is on oral antibiotics, namely amoxicillin and Levaquin. She presents tachycardic with somewhat soft pressures, afebrile. IV access established, laboratory evaluation as above notable for a leukocytosis of 14.4, lactic acidosis, procalcitonin elevation of 1.35 all consistent with sepsis, of which [place] is soft tissue related given her wounds. No crepitus or signs to suggest necrotizing fasciitis. We do obtain a urinalysis which is also concerning for infection. Stool is brown in color, nonmelanotic however patient does have a microcytic anemia with a hemoglobin of eight today, down from pr evious. Stool is occult positive, will need GI follow-up in hospital. I do order 80 mg of Protonix. As well as broad-spectrum antibiotics, namely cefepime and vancomycin. CMP significant for acute renal failure with a GFR of eight, BUN of one thirty-one as well as a creatinine of 4.84, with her most recent creatinine less than one. She does have some urine with Howard placement however less than 75 cc. Potassium markedly elevated at 6.8, EKG without peaked T waves or arrhythmia. Patient is given 1 g of calcium gluconate, as well as insulin, glucose, Lokelma, bicarb for her hyperkalemia. I docall and speak to Dr. Feliciano of nephrology who will follow patient closely. I do order repeat lactic acid as well as a 30 cc/kg fluid bolus for severe sepsis. Blood pressure is normalized without persistent hypotension or signs of septic shock. Hospitalist service accepts patient to the [facility] for ongoing care and management. This patient was seen in the setting of the COVID-19 pandemic. Numerous factors including resource limitations, psychosocial dilemmas, and complications such as nosocomial infection were taken into account and may have impacted traditional standards of care. Progress Notes and Consults: 12:27 AM: Patient rechecked. Discussed results and the plan for admission. The patient expressed understandingof this plan and was agreeable to it. All questions are addressed at this time. 12:30 AM: Consult with Dr. Feliciano, Nephrology, who recommends a urinalysis and abstaining from a CT KUB at this time. She agrees to consult on the patient's case. 12:54 AM: Spoke with Dr. Narvaez, hospitalist, regarding patient's case. She agrees with the evaluation and accepts the patient's admission. Last Vitals: BP: 120/86 Temp: 36.3 ??C (97.3 ??F) Heart Rate: 86 Resp: 20 SpO2: 94 % Impression: 1. Acute renal failure, unspecified acute renal failure type (CMS/HCC) 2. Hyperkalemia 3. Sepsis due to skin infection (CMS/HCC) 4. Acute anemia 5. Occult blood in stools 6. Acute cystitis without hematuria Disposition: Admit This note was dictated in part using [employer] voice dictation software. Please note this may be the source of any grammatical or spelling errors. Scribe attestation: IDinorah, am serving as scribe to document services personally performed by Doe Rowe DO based on my observation and the provider's statements to me. Scribe: Dinorah Almonte scribing for and in the presence of Doe Rowe DO Provider: Doe Burleson DO personally performed the services described in the documentation, reviewed and edited the documentation which was dictated to the scribe in my presence, and it accurately records my words and actions. Electronically signed by: Doe Rowe ED Provider 04/16/2021, 4:27 AM. Doe Rowe DO 04/16/21 0428 Estefani Chapin RN - 04/15/2021 9:25 PM PDT Loses her train of thought and feels sob, but says that's been happening for several years. Multiple skin issues also, skin tears on her left forearm and bilat leg swelling documented in this encounter Miscellaneous Notes Plan of Care - Razia Turner RN - 05/27/2021 4:05 AM PDT Identify possible barriers to meeting goals/advancing plan of care: placement, nausea End of Shift/ Care Plan Summary: Pt expressed concern about not receiving enough health care services once she returns home. Advertising Inserter consult ordered for possible placement options. Uneventful shift. Patient resting throughout. VSS. No overt complications noted. Blood pressure (!) 142/68, pulse 74, temperature 36.4 ??C (97.5 ??F), temperature source Oral, resp. rate 16, height 1.524 m, weight 72.8 kg, SpO2 97 %. [place] x2 tabs admin for c/o BLE pain-helpful. Denies nausea and took all medications without issues noted. NS @ 100 infusing. Denies shortness of breath, chest pain and vomiting. Bed locked in the lowest position with call light within reach. 1PA to [facility] for safety. Care ongoing. Problem: Pain - Adult Goal: Verbalizes/displays adequate comfort level or baseline comfort level Description: Goal Description: INTERVENTIONS: 1. Encourage pt to monitor pain and request assistance 2. Assess pain using appropriate pain scale 3. Administer analgesics based on type and severity of pain and evaluate response 4. Implement non-pharmacological measures as appropriate and evaluate response 5. Consider cultural and social influences on pain and pain management 6. Notify LIP if interventions unsuccessful or patient reports new pain Outcome: Progressing Problem: Safety Adult - Fall Goal: Free from fall injury Description: Goal Description: INTERVENTIONS: 1. Assess patient frequently for physical needs. 2. Identify cognitive and physical deficits and behaviors that affect risk of falls. 3. [place] fall precautions as indicated by assessment. 4. Educate patient/family on patient safety, including physical limitations. 5. Instruct patient to call for assistance with activity based on assessment. 6. Modify environment to reduce risk of injury. 7. Consider OT/PT consult to assist with strengthening/mobility. Outcome: Progressing Problem: Discharge Planning Goal: Discharge to home or other facility with appropriate resources Description: Goal Description: INTERVENTIONS: 1. Identify barriers to discharge with patient and caregiver. 2. Arrange for needed discharge resources and transportation as appropriate. 3. Identify discharge learning needs (meds, wound care, etc). 4. Arrange for interpreters to assist at discharge as needed. 5. Refer to Case Management Department for coordinating discharge planning if the patient needs post-hospital services based on physician order or complex needs related to functional status, cognitive ability or social support system. Outcome: Progressing lan of Care - Heather Albarran RN - 05/26/2021 6:08 PM PDT Problem: Pain - Adult Goal: Verbalizes/displays adequate comfort level or baseline comfort level Outcome: Progressing Problem: Safety Adult - Fall Goal: Free from fall injury Outcome: Progressing Problem: Altered Nutrient Intake - Adult Goal: Nutrient intake appropriate for improving, restoring or maintaining nutritional needs Outcome: Progressing Problem: Neurosensory - Adult Goal: Achieves maximal functionality and self care Outcome: Progressing Problem: Cardiovascular - Adult Goal: Maintains optimal cardiac output and hemodynamic stability Outcome: Progressing Goal: Absence of cardiac dysrhythmias or at baseline Outcome: Progressing Problem: Respiratory - Adult Goal: Achieves optimal ventilation and oxygenation Outcome: Progressing Problem: Metabolic/Fluid and Electrolytes - Adult Goal: Electrolytes maintained within normal limits Outcome: Progressing Problem: Skin/Tissue Integrity - Adult Goal: Skin integrity remains intact Outcome: Progressing Goal: Incisions, wounds, or drain sites healing without S/S of infection Outcome: Progressing Identify possible barriers to meeting goals/advancing plan of care: Nausea, unable to take PO meds due to nausea End of Shift/ Care Plan Summary: Patient A & O x4. Patient has had nausea today unrelieved by antiemetics (see MAR). Patient has not been able to take any of her PO meds due to nausea - [place] is aware. Patient denies vomiting, pain, or diarrhea. Plan of Care - Alvaro Delgadillo RN - 05/26/2021 6:08 AM PDT Identify possible barriers to meeting goals/advancing plan of care: None End of Shift/ Care Plan Summary: Aox4, complaints of pain in legs improved with PRN [place]. Q2 turnscompleted throughout shift. Call light appropriate. Patient anxious, restless, and ready to leave. Problem: Pain - Adult Goal: Verbalizes/displays adequate comfort level or baseline comfort level Outcome: Progressing Problem: Safety Adult - Fall Goal: Free from fall injury Outcome: Progressing Problem: Skin/Tissue Integrity - Adult Goal: Incisions, wounds, or drain sites healing without S/S of infection Outcome: Progressing lan of [place] - Richa Carroll RN - 05/25/2021 6:14 PM PDT Identify possible barriers to meeting goals/advancing plan of care: Wound care, discharge planning End of Shift/ Care Plan Summary: See nursing note Problem: Discharge Planning Goal: Discharge to home or other facility with appropriate resources Description: Goal Description: INTERVENTIONS: 1. Identify barriers to discharge with patient and caregiver. 2. Arrange for needed discharge resources and transportation as appropriate. 3. Identify discharge learning needs (meds, wound care, etc). 4. Arrange for interpreters to assist at discharge as needed. 5. Refer to Case Management Department for coordinating discharge planning if the patient needs post-hospital services based on physician order or complex needs related to functional status, cognitive ability or social support system. Outcome: Progressing Problem: Skin/Tissue Integrity - Adult Goal: Skin integrity remains intact Description: Goal description: INTERVENTIONS 1. ADMISSION & DAILY: Assess and document risk factors for pressure ulcer development 2. TWICE DAILY: Assess and document skin integrity 3. EVERY SHIFT: Monitor for areas of redness and/or skin breakdown 4. Initiate Pressure Ulcer prevention bundle as indicated, Skin Care: Pressure Ulcer Management Outcome: Progressing Richa HO, RN lan of [place] - Romy Walters RN - 05/25/2021 3:55 AM PDT Identify possible barriers to meeting goals/advancing plan of care: home vs snf End of Shift/ Care Plan Summary: Patient has been sleeping off and on throughout the night. C/o BLE pain; relieved by [place]. Denies any chest pain tonight. Remains on tele; SR in the 70's. Dressings to BLE remain clean dry and intact. 1PA/SBA with FWW to BSC, voiding well. Eating and drinking adequately. No other concerns at this time. Problem: Pain - Adult Goal: Verbalizes/displays adequate comfort level or baseline comfort level Outcome: Progressing Problem: Infection - Adult Goal: Isolation precautions followed Outcome: Progressing Goal: Absence of infection during hospitalization Outcome: Progressing Goal: Absence of fever/infection during anticipated neutropenic period Outcome: Progressing Problem: Safety Adult - Fall Goal: Free from fall injury Outcome: Progressing Problem: Discharge Planning Goal: Discharge to home or other facility with appropriate resources Outcome: Progressing Problem: Discharge Planning Goal: Discharge to home or other facility with appropriate resources Outcome: Progressing Problem: Cardiovascular - Adult Goal: Maintains optimal cardiac output and hemodynamic stability Outcome: Progressing Goal: Absence of cardiac dysrhythmias or at baseline Outcome: Progressing Problem: Metabolic/Fluid and Electrolytes - Adult Goal: Electrolytes maintained within normal limits Outcome: Progressing Goal: Hemodynamic stability and optimal renal function maintained Outcome: Progressing Problem: Skin/Tissue Integrity - Adult Goal: Skin integrity remains intact Outcome: Progressing Goal: Incisions, wounds, or drain sites healing without S/S of infection Outcome: Progressing lan of Margaret Hackett - 05/24/2021 5:16 PM PDT Identify possible barriers to meeting goals/advancing plan of care: wound care, ADLs, chest pain/elevated troponin End of Shift/ Care Plan Summary: A&Ox4. C/o chronic back and LE pain, prn [place] given x2. Denies N/V. Tele SR. VSS. Bgs 160s-220s, insulin given as ordered. Ambulated with PT in room and leavitt. Wound care in room for wound care today, premedicated with prn dilaudid x1. IV amiodarone discontinued, and PO amiodarone given. x1. Elevated troponin/CK-MB today after episode of chest pain on last shift, no c/o chest pain today. Son and daughter in law visited today. updated by phone lan of Leelee Flowers - 05/24/2021 7:44 AM PDT End of Shift/ Care Plan Summary: Assumed care of Lou from BLAINE Robles. Bedside safety check complete, whiteboard updated. Care continues. Neuro: alert and oriented x4 CVS: VSS Pulm: room air GI/: WDL; no bowel movement this shift Pain: report of chronic lower back and leg pain; PRN dilaudid given per orders Access/Gtt: x2 PIV, infusing amio @ 0.5 Psychosocial: WDL SHIFT EVENTS: 0000 - Lou complaining of chest pain; STAT EKG ordered, MD notified. 0030 - MD at patient bedside for assessment; no new orders, monitoring patient. Problem: Pain - Adult Goal: Verbalizes/displays adequate comfort level or baseline comfort level Outcome: Progressing Problem: Cardiovascular - Adult Goal: Maintains optimal cardiac output and hemodynamic stability Outcome: Progressing Significant Event - Liya Batres MD - 05/24/2021 1:49 AM PDT RN paged about patient c/o chest pain at around 00:25 , describing as pressure like 9/10 intensity. VSS. Examined the patient myself , chest pain was reproducible. EKG obtained had no significant changes compared to EKG from 3 days ago. Troponin ordered. Patient reported improvement in pain after dose of dilaudid. lan of Care - Margaret Sanches - 05/23/2021 8:05 PM PDT Identify possible barriers to meeting goals/advancing plan of care: Amiodarone drip End of Shift/ Care Plan Summary: A&Ox4. C/o chronic back and BLE pain prn dilaudid given x2, prn [place] given x2, Denies N/V. TeleSR. O2 LNC, sats. VSS. Bgs 150s-210s, insulin given as ordered. PA to commode. Mag rider given for Mg 1.9. Amiodarone running at 0.5 mg/min. Wound dressings clean, dry, and intact. lan of Care - Smiley Philip, RN - 05/22/2021 2:59 PM PDT Identify possible barriers to meeting goals/advancing plan of care: Placement;paroxysmal afib End of Shift/ Care Plan Summary: Alert and oriented x4. 1PA with FWW to BSC and chair. PIV saline locked. BLE dressings clean, dry, intact. Last BM 05/21. [place] administered PRN for BLE pain. Telemetry reads SR in 70's. Patient reports feeling very fatigued, dizzy, and off ~1400. Converted to afib ~1300. Hypotensive.Provider notified. 1L fluid bolus administered. IV Magnesium ordered. STAT EKG obtained and read sinus tachycardia. BP improved with fluids and reverse trendelenburg position. Rapid response team present and monitored and treated patient throughout. Converted back to SR in 70's ~1440. Provider notified. Transferred care to [facility] RN ~1500 due to [facility] status until able to transfer to [facility]. Problem: Pain - Adult Goal: Verbalizes/displays adequate comfort level or baseline comfort level Outcome: Progressing Flowsheets (Taken 05/18/2021351 by Nidia Wells) Addressed this shift: Verbalizes/displays adequate comfort level or baseline comfort level: ??? Encourage patient to monitor pain and request assistance ??? Assess pain using appropriate pain scale ??? Administer analgesics based on type and severity of pain and evaluate response ??? Implement non-pharmacological measures as appropriate and evaluate response ??? Consider cultural and social influences on pain and pain management ??? Notify Licensed Independent Practitioner if interventions unsuccessful or patient reports new pain Problem: Cardiovascular - Adult Goal: Maintains optimal cardiac output and hemodynamic stability Outcome: Progressing Flowsheets (Taken 05/18/2021351 by Nidia Wells) Addressed this shift: Maintain optimal cardiac output and hemodynamic stability: ??? Monitor vital signs, rhythm, and trends ??? Monitor for bleeding, hypotension and signs of decreased cardiac output ??? Administer and titrate ordered vasoactive medications to optimize hemodynamic stability ??? Monitor arterial and/or venous puncture sites for bleeding and/or hematoma ??? Assess quality of pulses, skin color and temperature ??? Assess for signs of decreased coronary artery perfusion - ex. angina Problem: Cardiovascular - Adult Goal: Absence of cardiac dysrhythmias or at baseline Outcome: Progressing Flowsheets (Taken 05/22/2021 5699) Addressed this shift: Absence of cardiac dysrhythmias or at baseline: ??? Continuous cardiac monitoring, monitor vital signs, obtain 12 lead EKG if indicated ??? Administer antiarrhythmic and heart rate control medications as ordered ??? Monitor electrolytes and administer replacement therapy as ordered Significant Event - Redd Cordoba RN - 05/22/2021 2:00 PM PDT Rapid Response RR called to pt's room. At arrival, pt A&O x4, placed in trendelenberg, fluid bolus infusing. Pt's BP orginally 80s/50s but improved to 90s/60s and eventually 124/70s after some fluid. Stat ECG done, afib with a rate of 112. MD aware, going to transfer pt to [facility] for amiodarone gtt. lan of Care - Penny Ferguson RN - 05/22/2021 12:49 AM PDT Problem: Discharge Planning Goal: Discharge to home or other facility with appropriate resources Outcome: Progressing Problem: Infection - Adult Goal: Isolation precautions followed Outcome: Progressing Problem: Safety Adult - Fall Goal: Free from fall injury Outcome: Progressing Identify possible barriers to meeting goals/advancing plan of care: Unstable cardiac rhythm Bilateral lower extremity wounds Placement End of Shift/ Care Plan Summary: Assumed care of pt at 1900, handoff report received and safety checks in place. Bed is low and locked and call light is within reach. BLE dressings remain clean, dry, and intact. Tele shows normal sinus rhythm at this time. Hourly rounding completed. esult QuickNote - Mohsen Fair MD - 05/21/2021 12:22 PM PDT Egd with biopsy stomach shows mild chronic gastritis. No H.pylori. Distal esophagus suggestive of reflux. Mid esophagus normal. Gerd diet. lan of Care - Alvaro Delgadillo RN - 05/21/2021 5:44 AM PDT Identify possible barriers to meeting goals/advancing plan of care: Blood pressure, placement End of Shift/ Care Plan Summary: Aox4, complaints of pain in leg. At start of shift, patient's BP low, contacted MD who ordered 500ml bolus x 2, which brought BP up. At 0000, patient complained of new onset chest pain that felt like her previous NSTEMI. Stat EKG obtained, MD contacted. Patient's HR found to be 140s, A-fib RVR, given 5mg IV metoprolol, which was effective. Patient's BP then low again, and was given another 500ml bolus. After bolus BP still low, so MD ordered patient transferredto CCU for pressor therapy. Report given to Carla Dsouza, patient transferred in bed to 2019 at 0515. Problem: Cardiovascular - Adult Goal: Maintains optimal cardiac output and hemodynamic stability Outcome: Not Progressing Goal: Absence of cardiac dysrhythmias or at baseline Outcome: Not Progressing Problem: Pain - Adult Goal: Verbalizes/displays adequate comfort level or baseline comfort level Outcome: Progressing lan of Care - Veronica Curtis RN - 05/20/2021 5:22 PM PDT Problem: Pain - Adult Goal: Verbalizes/displays adequate comfort level or baseline comfort level Outcome: Progressing Problem: Safety Adult - Fall Goal: Free from fall injury Outcome: Progressing Problem: Cardiovascular - Adult Goal: Maintains optimal cardiac output and hemodynamic stability Outcome: Progressing Goal: Absence of cardiac dysrhythmias or at baseline Outcome: Progressing Problem: Respiratory - Adult Goal: Achieves optimal ventilation and oxygenation Outcome: Progressing Identify possible barriers to meeting goals/advancing plan of care: pain/dysphagia End of Shift/ Care Plan Summary: Vitals stable today, leg pain 8-9/10, [place] increased by provider, dilaudid given for breakthrough pain, patient appeared to be resting comfortably with eyes closed with reassessments. BLE dressings C/D/I, sacrum mepilex C/D/I. Tele SR. Patient is A&O and call light appropriate with needs. Patient NPO this shift d/t endoscopy plan this afternoon. Verified meds okto give with endo nurse. p Note - Mohsen Fair MD - 05/20/2021 5:15 PM PDT Endoscopic Gastroduodenoscopy Procedure Note Procedure: Endoscopic Gastroduodenoscopy with biopsy, esophageal dilation Pre-operative Diagnosis: dysphagia Post-operative Diagnosis: Successful TTS Cre balloon dilation performed up to 20 mm with good mucosal tear of distal esophagus, Mild nonerosive gastritis status post biopsy Staff: GI Nurse: Tarah Martinez RN Anesthesia: Monitor Anesthesia Care Medication Name Total Dose acetaminophen (TYLENOL) suppository 120 mg 120 mg aspirin chewable tablet 81 mg 243 mg atorvastatin (LIPITOR) tablet 40 mg 800 mg atropine injection (abboject) 0.5-1 mg Cannot be calculated calcium carbonate (TUMS) chewable tablet 500 mg 1,500 mg carvediloL (COREG) tablet 6.25 mg 243.75 mg dextrose 5 %-0.45 % sodium chloride infusion 336.67 mL dextrose 50 % in water (D50W) g injection 12.5-50 g Cannot be calculated diazePAM (VALIUM) tablet 2 mg 26 mg diltiazem CD (CARDIZEM CD) 24 hr capsule 240 mg 4,800 mg diphenhydrAMINE (BENADRYL) capsule 50 mg 150 mg flumazeniL (ROMAZICON) injection 0.2 mg Cannot be calculated HYDROcodone-acetaminophen (NORCO) 5-325 mg 1-2 tablet Cannot be calculated HYDROmorphone (DILAUDID) injection 0.2 mg 0.2 mg insulin glargine (LANTUS) injection 6 Units 90 Units insulin lispro injection 0-5 Units 6 Units insulin lispro injection 0-6 Units 89 Units lactobacillus rhamnosus GG (CULTURELLE) 10 billion cell 1 capsule 10 capsule levOCARNitine (L-CARNITINE) tablet 500 mg 3,000 mg levothyroxine (SYNTHROID) tablet 75 mcg 525 mcg lidocaine (for HOWARD) jelly 1 application Cannot be calculated magnesium chloride (SLOW-MAG) tablet 71.5 mg 715 mg metoprolol (LOPRESSOR) injection 5 mg Cannot be calculated miconazole (MICOTIN) 2 % powder 17 application naloxone (NARCAN) injection 0.04 mg Cannot be calculated naloxone (NARCAN) injection 0.4 mg Cannot be calculated nitroglycerin (NITROSTAT) SL tablet 0.4 mg 0.4 mg ondansetron (ZOFRAN) 4 mg/5 mL solution 4 mg Cannot be calculated ondansetron (ZOFRAN) injection 4 mg 20 mg ondansetron ODT (ZOFRAN-ODT) disintegrating tablet 4 mg 20 mg pantoprazole (PROTONIX) EC tablet 40 mg 1,000 mg predniSONE (DELTASONE) tablet 5 mg 115 mg promethazine (PHENERGAN) 6.25 mg in sodium chloride (NS) 0.9 % 50 mL (0.125 mg/mL) IVPB 250 mL senna (SENOKOT) tablet 8.6 mg 172 mg sertraline (ZOLOFT) tablet 25 mg 225 mg sodium chloride 0.9 % flush 20 mL Cannot be calculated sulfaSALAzine (AZULFIDINE) tablet 1,000 mg 24,000 mg minutes Pre-Procedure Physical: The following portions of the patient's history were reviewed and updated as appropriate: allergies,current medications, past family history, past medical history, past social history, past surgical history and problem list. BP 113/64 Pulse 76 Temp 36 ??C (96.8 ??F) (Temporal) Resp 17 Ht 1.524 m Wt 74 kg SpO2 98% BMI 31.86 kg/m?? Airway: normal Heart: normal S1 and S2 Lungs: clear Abdomen: soft, nontender, normal bowel sounds Mental Status: awake and alert; oriented to person, place, and time ASA Class: 3 Procedure Details Informed consent was obtained for the procedure, including sedation. Risks of perforation, hemorrhage, adverse drug reaction and aspiration were discussed. The patient was placed in the left lateral decubitus position. Based on the pre-procedure assessment, including review of the patient's medical history, medications, allergies, and review of systems, she had been deemed to be an appropriate candidate for conscious sedation; she was therefore sedated with the medications listed below. The patient was monitored continuously with ECG tracing, pulse oximetry, blood pressure monitoring, and direct observations. The gastroscope was inserted into the mouth and advanced under direct vision to second portion of the duodenum. A careful inspection was made as the gastroscope was withdrawn, including a retroflexed view of the proximal stomach and advanced into duodenum 2nd portion. Mohsen Fair MD Medications: Preop and Intraop Administered Meds from 05/19/2021 1805 to 05/20/2021 1805 None Blood Product Administration: No Findings: Esophagus: normal. Zline 40cm from incisors. bx mid and distal. Successful TTS Cre balloon dilation performed up to 20 mm with good mucosal tear of distal esophagus, Stomach: mild nonerosive gastritis. Retroflexion normal. Biopsies taken antrum and body Duodenum: normal Specimens: ID Type Source Tests Collected by Time Destination 1 : Tissue Antrum SURGICAL PATHOLOGY Mohsen Fair MD 05/20/20211753 2 : Tissue Gastric Biopsy SURGICAL PATHOLOGY Mohsen Fiar MD 05/20/20211753 3 : Tissue Esophagus, distal SURGICAL PATHOLOGY Mohsen Fair MD 05/20/20211753 4 : Tissue Esophagus, Mid SURGICAL PATHOLOGY Mohsen Fair MD 05/20/20211753 Grafts/Implants: * No implants in log * Complications: None; patient tolerated the procedure well. Disposition: PACU - hemodynamically stable. Condition: stable Attending Attestation: I performed the procedure. Impression: - Successful TTS Cre balloon dilation performed up to 20 mm with good mucosal tear of distal esophagus, Mild nonerosive gastritis status post biopsy Recommendations: -Await pathology., -ok discharge home from gi standpoint Mohsen Fair MD, MD 05/20/2021 lan of Care - Alvaro Delgadillo RN - 05/20/2021 6:18 AM PDT Identify possible barriers to meeting goals/advancing plan of care: Placement End of Shift/ Care Plan Summary: Aox4, complaints of pain in legs, improved with analgesics. Dressings on BLE clean, dry and intact. Dressing on coccyx changed. Call light appropriate. Problem: Pain - Adult Goal: Verbalizes/displays adequate comfort level or baseline comfort level Outcome: Progressing Problem: Safety Adult - Fall Goal: Free from fall injury Outcome: Progressing Problem: Skin/Tissue Integrity - Adult Goal: Incisions, wounds, or drain sites healing without S/S of infection Outcome: Progressing lan of Care - Razia Turner RN - 05/19/2021 6:08 AM PDT Identify possible barriers to meeting goals/advancing plan of care: tachycardia hr 130s, upper GI scope on per MD note, BLE wounds End of Shift/ Care Plan Summary: HR increased from 80s to 130s for about 10 minutes, then converted back into NSR hr 80s. MD aware. PRN Metoprolol IVP available if needed. Pt denies shortness of breath, chest pain/pressure. Zofran IVP admin this early AM.with good effect. [place] admin x 2 for c/o BLE pain- effective. 1P SBA to BSC. Bed alarm on for safety, bed locked in the lowest position and call light within reach. Patient resting throughout. VSS. No overt complications noted. Blood pressure 101/69, pulse 89, temperature 36.7 ??C (98.1 ??F), temperature source Oral, resp. rate 18, height 1.524 m, weight 74 kg, SpO2 96 %. Care ongoing. Problem: Pain - Adult Goal: Verbalizes/displays adequate comfort level or baseline comfort level Description: Goal Description: INTERVENTIONS: 1. Encourage pt to monitor pain and request assistance 2. Assess pain using appropriate pain scale 3. Administer analgesics based on type and severity of pain and evaluate response 4. Implement non-pharmacological measures as appropriate and evaluate response 5. Consider cultural and social influences on pain and pain management 6. Notify LIP if interventions unsuccessful or patient reports new pain Outcome: Progressing Problem: Cardiovascular - Adult Goal: Maintains optimal cardiac output and hemodynamic stability Description: Goal description: Lou will maintain optimal cardiac output and hemodynamic stability. INTERVENTIONS: 1. Monitor vital signs, rhythm, and trends 2. Monitor for bleeding, hypotension and signs of decreased cardiac output 3. Administer and titrate ordered vasoactive medications to optimize hemodynamic stability 4. Monitor arterial and/or venous puncture sites for bleeding and/or hematoma 5. Assess quality of pulses, skin color and temperature 6. Assess for signs of decreased coronary artery perfusion - ex. angina Outcome: Progressing Problem: Hematologic - Adult Goal: Maintains hematologic stability Description: Goal description: INTERVENTIONS 1. Assess for signs and symptoms of bleeding or hemorrhage 2. Monitor labs 3. Administer supportive blood products/factors as ordered and appropriate Outcome: Progressing lan of Care - Nidia Wells - 05/18/2021 3:53 AM PDT Identify possible barriers to meeting goals/advancing plan of care: pain End of Shift/ Care Plan Summary: Pt a&o x 4, pleasant and cooperative with care. On tele, SR. [id number] 96-98% on RA. Pt has some c/o pain to legs, back, and head, PRN medications administered for pain relief. Right groin site soft, nontender with no bruising or hematoma at the start of shift.Bed in the low, locked position. Call light within reach. 0000 - Pt up to bedside commode, after returning to bed pt c/o pain to right groin site. Groin site tender with large hematoma and bruising. Rapid response nurse BLAINE Lopes called to assess pt. Pressureand sandbag applied to groin site. Hematoma outlined to monitor. Pedal pulse present. MD notified and pt started on bedrest. Problem: Pain - Adult Goal: Verbalizes/displays adequate comfort level or baseline comfort level Outcome: Progressing Flowsheets (Taken 05/18/2021 035) Addressed this shift: Verbalizes/displays adequate comfort level or baseline comfort level: ??? Encourage patient to monitor pain and request assistance ??? Assess pain using appropriate pain scale ??? Administer analgesics based on type and severity of pain and evaluate response ??? Implement non-pharmacological measures as appropriate and evaluate response ??? Consider cultural and social influences on pain and pain management ??? Notify Licensed Independent Practitioner if interventions unsuccessful or patient reports new pain Problem: Cardiovascular - Adult Goal: Maintains optimal cardiac output and hemodynamic stability Outcome: Progressing Flowsheets (Taken 05/18/2021351) Addressed this shift: Maintain optimal cardiac output and hemodynamic stability: ??? Monitor vital signs, rhythm, and trends ??? Monitor for bleeding, hypotension and signs of decreased cardiac output ??? Administer and titrate ordered vasoactive medications to optimize hemodynamic stability ??? Monitor arterial and/or venous puncture sites for bleeding and/or hematoma ??? Assess quality of pulses, skin color and temperature ??? Assess for signs of decreased coronary artery perfusion - ex. angina lan of Care - Vicky Perkins RN - 05/17/2021 6:10 PM PDT Identify possible barriers to meeting goals/advancing plan of care: Weakness End of Shift/ Care Plan Summary: Patient a/o x 4, up to bsc with SBA na fairly well. Npo since midnight for procedure. VSS, tele SR. Lungs clear, abd soft active bowel tones. BLE drsg c/d/I. 1300 Patient premedicated with third dose of Benadryl and Prednisone for Iodine allergy, mobile lab technician staff here and patient taken to mobile lab technician. 181 Patient in [facility]. ost- Procedure Note - Nikko Tan MD - 05/17/2021 4:07 PM PDT Special Imaging Postprocedure Note Shirin Aguillon Physician: Nikko Tan MD Base Cloth Inspector: None Diagnosis: The primary encounter diagnosis was Acute renal failure, unspecified acute renal failure type (CMS/HCC). Diagnoses of Hyperkalemia, Sepsis due to skin infection (CMS/HCC), Acute anemia, Occult blood in stools, Acute cystitis without hematuria, and Pressure injury of skin of right calf, unspecified injury stage were also pertinent to this visit. Procedure: Complications: None Stents/Grafts/Implant: yes; ANDREA to LAD Blood Product Administration: no If yes, see Blood Administration Record Estimated Blood Loss: minimal Anesthesia: no Specimens Removed: no 05/17/2021 4:07 PM ost- Procedure Note - Trent Batista MD - 05/17/2021 3:08 PM PDT Special Imaging Postprocedure Note Shirin Aguillon Physician: Trent Batista MD Base Cloth Inspector: None Diagnosis: The primary encounter diagnosis was Acute renal failure, unspecified acute renal failure type (CMS/HCC). Diagnoses of Hyperkalemia, Sepsis due to skin infection (CMS/HCC), Acute anemia, Occult blood in stools, Acute cystitis without hematuria, and Pressure injury of skin of right calf, unspecified injury stage were also pertinent to this visit. Procedure: Complications: None Stents/Grafts/Implant: yes; ANDREA to LAD Blood Product Administration: no If yes, see Blood Administration Record Estimated Blood Loss: minimal Anesthesia: no Specimens Removed: no 05/17/2021 3:08 PM lan of [facility] [place] - Yesica Monzon RN - 05/16/2021 11:18 PM PDT End of Shift/ Care Plan Summary: Patient alert with anxiety during late evening, RN supportive. Hypertensive 132/82 HR 79 R 18 T 98.4f. Chronic leg pain r/t wounds, positioning help to increase comfort. Completed pre medication prednisone, anticipating patient will go into the mobile lab technician today 05/17/2021. Hourly rounding and safety checks throughout shift, all needs met. Problem: Cardiovascular - Adult Goal: Maintains optimal cardiac output and hemodynamic stability Flowsheets (Taken 05/16/2021 3494) Addressed this shift: Maintain optimal cardiac output and hemodynamic stability: ??? Monitor vital signs, rhythm, and trends ??? Administer and titrate ordered vasoactive medications to optimize hemodynamic stability ??? Monitor arterial and/or venous puncture sites for bleeding and/or hematoma ??? Assess quality of pulses, skin color and temperature ??? Monitor for bleeding, hypotension and signs of decreased cardiac output Problem: Musculoskeletal - Adult Goal: Return mobility to safest level of function Flowsheets (Taken 05/16/2021 2315) Addressed this shift: Return mobility to safest level of function: ??? Assess patient stability and activity tolerance for standing, transferring and ambulating with or without assistive devices ??? Assist with transfers and ambulation using safe patient handling equipment as needed ??? Ensure adequate protection for wounds/incisions during mobilization ??? Apply Continuous Passive Motion per provider or PT orders to increase flexion toward goal ??? Instruct patient/family in ordered activity level ??? Obtain PT/OT consults as needed lan of Care - Randy Cuellar RN - 05/16/2021 5:52 PM PDT Identify possible barriers to meeting goals/advancing plan of care: Pending heart cath procedure tomorrow and results. End of Shift/ Care Plan Summary: Assumed care of patient at 7:00. Patient alert and oriented x 4, 1PA w/ fww. Heparin pump running @ 9 units/kg/hr at start of shift, then later turned down to 8 units/kg/hr per pharmacy. Patient complained of nausea this morning which was helped by Zofran, with no further complaints of chest pain. Patient given [place] this AM for chronic back pain and leg pain, and [place] again near dinner for 9-10/10 headache pain. Md notified, and prn pain medication for severe pain was ordered. Heart cath planned for 1330 tomorrow. Prednisone doses and benadryl dose have been ordered corresponding to the 1330 cath procedure to prepare patient to receive contrast dye, which she hasan allergy to. NPO at midnight. No other changes. Problem: Pain - Adult Goal: Verbalizes/displays adequate comfort level or baseline comfort level Outcome: Progressing Problem: Infection - Adult Goal: Absence of infection during hospitalization Outcome: Progressing Problem: Safety Adult - Fall Goal: Free from fall injury Outcome: Progressing Problem: Discharge Planning Goal: Discharge to home or other facility with appropriate resources Outcome: Progressing Problem: Altered Nutrient Intake - Adult Goal: Nutrient intake appropriate for improving, restoring or maintaining nutritional needs Outcome: Progressing Problem: Cardiovascular - Adult Goal: Absence of cardiac dysrhythmias or at baseline Outcome: Progressing Problem: Respiratory - Adult Goal: Achieves optimal ventilation and oxygenation Outcome: Progressing Problem: Skin/Tissue Integrity - Adult Goal: Skin integrity remains intact Outcome: Progressing Problem: Hematologic - Adult Goal: Maintains hematologic stability Outcome: Progressing Problem: Gastrointestinal - Adult Goal: Minimal or absence of nausea and vomiting Outcome: Progressing lan of Care - Ronald Seda A - 05/16/2021 6:13 AM PDT Identify possible barriers to meeting goals/advancing plan of care: End of Shift/ Care Plan Summary: Assumed care of pt at 1900, handoff report received and safety checks in place. Bed is low and locked and call light is within reach. Neuro: Alert & oriented x4 Pain: Denies chest pain, pain present in legs Pulmonary: Lung sounds clear GI/: Bowel sounds active Skin: Redness coccyx, mepilex applied Cardiovascular: 16 beats of vtach in evening, no chest pain Musculoskeletal: Weakness, 1PA to BSC IV: Heparin gtt 9 units/kg/hr Plan: Echo, cardio consult, SNF placement Care continues for pt. Problem: Safety Adult - Fall Goal: Free from fall injury Outcome: Progressing Problem: Neurosensory - Adult Goal: Achieves maximal functionality and self care Outcome: Progressing Problem: Cardiovascular - Adult Goal: Maintains optimal cardiac output and hemodynamic stability Outcome: Progressing lan of Care - Randy Cuellar RN - 05/15/2021 7:28 PM PDT Identify possible barriers to meeting goals/advancing plan of care: New cardiac End of Shift/ Care Plan Summary: Assumed care of patient at 7:00. Patient alert and oriented x 4, 1PA w/ fww to BSC. Patient continues to c/o 8/10 back and BLE pain. Patient c/o new onset throbbing chest pain w/ dizziness and nausea around noon. MD notified, troponin and ECG ordered. Both troponin andECG had abnormalities. MD and rapid response RN were both paged, and both came shortly after to bedside. Nitroglycerin was given, and patient's blood pressure dropped in 5 minutes to SBP in 130's to SBP in 70's., and patient reported no improvement in symptoms. Cardiac consult ordered, and decorator mannequin ordered heparin drip. New IV started by IV therapy. Family notified. Plan of care involves continued work up for new cardiac changes. Problem: Pain - Adult Goal: Verbalizes/displays adequate comfort level or baseline comfort level Outcome: Progressing Problem: Cardiovascular - Adult Goal: Absence of cardiac dysrhythmias or at baseline Outcome: Progressing Problem: Metabolic/Fluid and Electrolytes - Adult Goal: Hemodynamic stability and optimal renal function maintained Outcome: Progressing Problem: Hematologic - Adult Goal: Maintains hematologic stability Outcome: Progressing Problem: Musculoskeletal - Adult Goal: Return ADL status to a safe level of function Outcome: Progressing Problem: Gastrointestinal - Adult Goal: Minimal or absence of nausea and vomiting Outcome: Progressing Problem: Discharge Planning Goal: Discharge to home or other facility with appropriate resources Outcome: Progressing lan of [facility] - Yeny Schilling RN - 05/15/2021 5:29 AM PDT End of Shift/ Care Plan Summary: Patient is A&Ox4. [place] given for leg pain. Valium given for anxiety. 1PA with FWW. Bed in lowest position, call light within reach and bed alarm on. Problem: Pain - Adult Goal: Verbalizes/displays adequate comfort level or baseline comfort level Outcome: Progressing Problem: Safety Adult - Fall Goal: Free from fall injury Outcome: Progressing lan of [facility] - Latisha Barnes - 05/14/2021 12:48 PM PDT Identify possible barriers to meeting goals/advancing plan of care: End of Shift/ Care Plan Summary: A&Ox3. C/o back and BLE pain, some relief w/prn [place]. 1PA w/fww to bsc. Incontinent of b&b at times. Pt c/o nausea, some relief w/prn zofran and phenergan. No episodes of emesis. Mepilex changed. CDI. BLE wound drsgs CDI. Pt appears depressed, MD aware. Bed in lowest position, call light within reach. Hourly rounding and safety checks complete with allneeds met. Problem: Pain - Adult Goal: Verbalizes/displays adequate comfort level or baseline comfort level Description: Goal Description: Shirin Aguillon's pain will be managed and at a tolerable level throughout their admission. Outcome: Progressing Problem: Altered Nutrient Intake - Adult Goal: Nutrient intake appropriate for improving, restoring or maintaining nutritional needs Description: Goal description: Shirin Aguillon will maintain adequate nutritional intake while admitted. Outcome: Progressing Problem: Gastrointestinal - Adult Goal: Minimal or absence of nausea and vomiting Description: Goal description: Shirin Aguillon will not have persistent nausea while admitted. Outcome: Progressing lan of Care - Marco Rodriguez RN - 05/13/2021 11:39 PM PDT Identify possible barriers to meeting goals/advancing plan of care: placement End of Shift/ Care Plan Summary: Continues pain management with prn norco, nauseated, relieved by IVphenergan and zofran, no emesis, wound dressing remains cdi, resting comfortably most of the night, call light in reach. All needs attended. Problem: Pain - Adult Goal: Verbalizes/displays adequate comfort level or baseline comfort level Outcome: Progressing Problem: Gastrointestinal - Adult Goal: Minimal or absence of nausea and vomiting Outcome: Progressing lan of Care - Richa Carroll RN - 05/13/2021 4:39 PM PDT Identify possible barriers to meeting goals/advancing plan of care: Discharge planning and placement End of Shift/ Care Plan Summary: See nursing note Problem: Pain - Adult Goal: Verbalizes/displays adequate comfort level or baseline comfort level Description: Goal Description: INTERVENTIONS: 1. Encourage pt to monitor pain and request assistance 2. Assess pain using appropriate pain scale 3. Administer analgesics based on type and severity of pain and evaluate response 4. Implement non-pharmacological measures as appropriate and evaluate response 5. Consider cultural and social influences on pain and pain management 6. Notify LIP if interventions unsuccessful or patient reports new pain Outcome: Not Progressing Problem: Neurosensory - Adult Goal: Achieves maximal functionality and self care Description: Goal description: INTERVENTIONS 1. Monitor swallowing and airway patency with patient fatigue and changes in neurological status 2. Encourage and assist patient to increase activity and self care with guidance from PT/OT 3. Encourage visually impaired, hearing impaired and aphasic patients to use assistive/communicationdevices Outcome: Not Progressing Richa HO, RN lan of Marco Garner RN - 05/13/2021 4:13 AM PDT Identify possible barriers to meeting goals/advancing plan of care: awaits placement End of Shift/ Care Plan Summary: Back and legs pain managed with norco, attempted to do wound care per order but pt. refusing at this time, explained risk and benefit, wound drsg remains cdi, call light in reach. Problem: Pain - Adult Goal: Verbalizes/displays adequate comfort level or baseline comfort level Outcome: Progressing Problem: Safety Adult - Fall Goal: Free from fall injury Outcome: Progressing lan of Latisha Mathis - 05/12/2021 1:49 PM PDT Identify possible barriers to meeting goals/advancing plan of care: End of Shift/ Care Plan Summary: A&Ox3, forgetful at times. C/o pain back and legs, prn [place] administered. 1PA w/fww to bsc. Incontinent. Mepilex and barrier cream applied to coccyx. Pt refused drsg changes this morning and afternoon. MD aware and wound nurse aware. Pt requesting tohave drsgs changed q 3 days or q 2 days and requesting something stronger for pain. MD and wound nurse aware. Bed in lowest position, call light within reach. Hourly rounding and safety checks complete with allneeds met. Problem: Pain - Adult Goal: Verbalizes/displays adequate comfort level or baseline comfort level Description: Goal Description: Shirin Aguillon's pain will be managed and at a tolerable level throughout their admission. Outcome: Progressing Problem: Skin/Tissue Integrity - Adult Goal: Incisions, wounds, or drain sites healing without S/S of infection Description: Goal description: Lou's wounds will heal without signs of infection during hospitalization. Outcome: Progressing lan of Crystal Olmedo - 05/12/2021 3:26 AM PDT Identify possible barriers to meeting goals/advancing plan of care: Placement End of Shift/ Care Plan Summary: A/O x : 3-4, forgetful Mobility: 1PA, FWW, Turn q2. Bed alarm on. Pulm: RA GI: Appetite poor, no nausea : BSC, incontinent of urine once. Skin: New mepilix on coccyx. BLE calf dressing C/D/I. Pain: Relieved with PRN [place]. IV: PIV SL Right forearm Hourly rounding and cares done. Problem: Pain - Adult Goal: Verbalizes/displays adequate comfort level or baseline comfort level Outcome: Progressing Problem: Safety Adult - Fall Goal: Free from fall injury Outcome: Progressing lan of Gemini Schumacher RN - 05/11/2021 11:57 AM PDT Identify possible barriers to meeting goals/advancing plan of care: complaining of chronic pain. End of Shift/ Care Plan Summary: Giving pain medication as ordered. Assessing pain throughout the shift. Care continues. lan of Crystal Olmedo - 05/11/2021 4:40 AM PDT Identify possible barriers to meeting goals/advancing plan of care: SNF End of Shift/ Care Plan Summary: A/O x : 3, forgetful Mobility: 1PA, FWW, Turn q2. Bed alarm on. Pulm: RA Skin: BLE dressings C/D/I Pain: Pain in BLE and coccyx. PRN norco and repositioning IV: PIV SL Procedures: Hourly rounding and cares done. Problem: Pain - Adult Goal: Verbalizes/displays adequate comfort level or baseline comfort level Outcome: Progressing Problem: Safety Adult - Fall Goal: Free from fall injury Outcome: Progressing lan of Randy Osborne RN - 05/10/2021 2:10 PM PDT Identify possible barriers to meeting goals/advancing plan of care: Discharge planning. End of Shift/ Care Plan Summary: Assumed care of patient at 7:00. Patient alert and oriented x 3, 1PA w/ fww. Patient c/o nausea and dizziness after using BSC this morning. Mds were notified, and zofran was ordered and given. Patient c/o 8/10 BLE pain, and patient expressed high anxiety about the pending wound therapy consult. Mds were notified, and prn diazepam was added to medication list. Wound therapy was called, and consult was scheduled to be 1-1.5 hours after patient received prn oxycodone and prn diazepam in order to be at peak concentration of both drugs. WT assessed patient. Anticipate discharge as soon as tomorrow. No other changes in plan of care or patient condition. Patient handed off to new nurse this afternoon in mid shift reassignment. Problem: Pain - Adult Goal: Verbalizes/displays adequate comfort level or baseline comfort level Outcome: Progressing Problem: Infection - Adult Goal: Absence of infection during hospitalization Outcome: Progressing Problem: Safety Adult - Fall Goal: Free from fall injury Outcome: Progressing Problem: Altered Nutrient Intake - Adult Goal: Nutrient intake appropriate for improving, restoring or maintaining nutritional needs Outcome: Progressing Problem: Cardiovascular - Adult Goal: Maintains optimal cardiac output and hemodynamic stability Outcome: Progressing Problem: Cardiovascular - Adult Goal: Absence of cardiac dysrhythmias or at baseline Outcome: Progressing Problem: Respiratory - Adult Goal: Achieves optimal ventilation and oxygenation Outcome: Progressing Problem: Metabolic/Fluid and Electrolytes - Adult Goal: Electrolytes maintained within normal limits Outcome: Progressing Problem: Metabolic/Fluid and Electrolytes - Adult Goal: Hemodynamic stability and optimal renal function maintained Outcome: Progressing Problem: Skin/Tissue Integrity - Adult Goal: Skin integrity remains intact Outcome: Progressing Problem: Skin/Tissue Integrity - Adult Goal: Incisions, wounds, or drain sites healing without S/S of infection Outcome: Progressing Problem: Musculoskeletal - Adult Goal: Return ADL status to a safe level of function Outcome: Progressing Problem: Discharge Planning Goal: Discharge to home or other facility with appropriate resources Outcome: Progressing lan of [facility] [place] - Romy Walters RN - 05/10/2021 3:53 AM PDT Identify possible barriers to meeting goals/advancing plan of care: placement End of Shift/ Care Plan Summary: Patient has been sleeping off and on throughout the night. Calling frequently for random things like her glasses and call light. She is oriented x3, able to make needs known even with delayed responses. Up to BS for voids; patient does well with 1PA and FWW. Encouraged repositioning; does need assistance sometimes with turns. C/o BLE pain; oxycodone given, helpful. Dressing change due later this AM; will try to complete prior to shift change. Patient asked where herwedding ring; did not find in room; will have day shift follow up with son and . Patient is h opeful for discharge soon. No other concerns at this time. Problem: Pain - Adult Goal: Verbalizes/displays adequate comfort level or baseline comfort level Outcome: Progressing Problem: Infection - Adult Goal: Isolation precautions followed Outcome: Progressing Goal: Absence of infection during hospitalization Outcome: Progressing Goal: Absence of fever/infection during anticipated neutropenic period Outcome: Progressing Problem: Safety Adult - Fall Goal: Free from fall injury Outcome: Progressing Problem: Discharge Planning Goal: Discharge to home or other facility with appropriate resources Outcome: Progressing Problem: Altered Nutrient Intake - Adult Goal: Nutrient intake appropriate for improving, restoring or maintaining nutritional needs Outcome: Progressing Problem: Neurosensory - Adult Goal: Achieves maximal functionality and self care Outcome: Progressing Problem: Cardiovascular - Adult Goal: Maintains optimal cardiac output and hemodynamic stability Outcome: Progressing Goal: Absence of cardiac dysrhythmias or at baseline Outcome: Progressing Problem: Metabolic/Fluid and Electrolytes - Adult Goal: Electrolytes maintained within normal limits Outcome: Progressing Goal: Hemodynamic stability and optimal renal function maintained Outcome: Progressing Problem: Skin/Tissue Integrity - Adult Goal: Skin integrity remains intact Outcome: Progressing Goal: Incisions, wounds, or drain sites healing without S/S of infection Outcome: Progressing Problem: Musculoskeletal - Adult Goal: Return mobility to safest level of function Outcome: Progressing Goal: Return ADL status to a safe level of function Outcome: Progressing lan of Care - Jermaine Garcia RN - 05/09/2021 2:48 AM PDT Identify possible barriers to meeting goals/advancing plan of care: End of Shift/ Care Plan Summary: Assumed care of pt at 1900. A/Ox2-3, confused at times, using call light frequently without remembering why. BLE dressings c/d/i. Pt had anxiety prior to bedtime, Valium 5mg ordered by MD. Tylenol administered for pain. Plan of care involves placement. Call light within reach, bed low/alarm on, care continues. Problem: Pain - Adult Goal: Verbalizes/displays adequate comfort level or baseline comfort level Outcome: Progressing Problem: Safety Adult - Fall Goal: Free from fall injury Outcome: Progressing lan of Bree Ayala - 05/08/2021 6:59 PM PDT Identify possible barriers to meeting goals/advancing plan of care: IV abx, safe discharge plan. End of Shift/ Care Plan Summary: Lou alert and oriented x 2-3, slow to respond and forgetful, compliant with all cares. VSS. Oxycodone given for back pain effective. Second PIV placed for IV abx and IVF. Turned and repositioned every two hours, out of bed to use BSC with one staff assist, incontinent of urine at times. No bowel movement this shift. No fall or injury. Continue high risk fall precautions and hourly rounds. Problem: Safety Adult - Fall Goal: Free from fall injury Description: Goal Description: Lou will be free from fall injury during hospital stay. INTERVENTIONS: 1. Assess patient frequently for physical needs. 2. Identify cognitive and physical deficits and behaviors that affect risk of falls. 3. [place] fall precautions as indicated by assessment. 4. Educate patient/family on patient safety, including physical limitations. 5. Instruct patient to call for assistance with activity based on assessment. 6. Modify environment to reduce risk of injury. 7. Consider OT/PT consult to assist with strengthening/mobility. 05/08/2021 0746 by Bree Hong Outcome: Progressing 05/07/2021 1840 by Bree Hong Outcome: Progressing lan of Care - Yesica Monzon RN - 05/07/2021 11:03 PM PDT End of Shift/ Care Plan Summary: Patient alert to self, experiencing forgetfulness and confusion, Daytime nurse stated, confusion new for patient. BG 193, possible hospital delirium. VSS. Afebrile. Denies pain, RN noted pain in BLE with movement. Problem: Infection - Adult Goal: Absence of infection during hospitalization Outcome: Progressing Problem: Skin/Tissue Integrity - Adult Goal: Skin integrity remains intact Outcome: Progressing lan of Care - Bree Hong - 05/07/2021 6:40 PM PDTSummary: End of shift report Identify possible barriers to meeting goals/advancing plan of care: Safe discharge End of Shift/ Care Plan Summary: Lou alert and oriented x 3, slow to respond and forgetful, compliant with all cares. New PIV placed for IV abx and IVF, patent. Turned and repositioned every two hours, out of bed to use BSC with one staff assist. No bowel movement this shift. No fall or injury. Continue high risk fall precautions and hourly rounds. Problem: Safety Adult - Fall Goal: Free from fall injury Description: Goal Description: Leti will be free from fall injury during hospital stay. INTERVENTIONS: 1. Assess patient frequently for physical needs. 2. Identify cognitive and physical deficits and behaviors that affect risk of falls. 3. [place] fall precautions as indicated by assessment. 4. Educate patient/family on patient safety, including physical limitations. 5. Instruct patient to call for assistance with activity based on assessment. 6. Modify environment to reduce risk of injury. 7. Consider OT/PT consult to assist with strengthening/mobility. Outcome: Progressing lan of [facility] - Jermaine Garcia RN - 05/07/2021 5:53 AM PDT Identify possible barriers to meeting goals/advancing plan of care: End of Shift/ Care Plan Summary: Assumed care of pt at 1900. A/Ox2-3, confused at times. PRN oxycodone administered with adequate pain relief, pt asleep afterwards. BLE dressings c/d/i. UA sent in at approximately 0400. Urine very cloudy. Mepilex changed to buttocks. Call light within reach, bed low, care continues. Problem: Pain - Adult Goal: Verbalizes/displays adequate comfort level or baseline comfort level Outcome: Progressing Problem: Safety Adult - Fall Goal: Free from fall injury Outcome: Progressing lan of Jermaine Schreiber RN - 05/06/2021 5:35 AM PDT Identify possible barriers to meeting goals/advancing plan of care: End of Shift/ Care Plan Summary: Assumed care of pt at 1900. A/Ox2-3. PRN oxycodone administered forpain relief. BLE wound cleansed. Dressings changed, cdi. Pt is now SL. Getting up frequently overnight to void on BSC. Call light within reach, bed low, care continues. Problem: Pain - Adult Goal: Verbalizes/displays adequate comfort level or baseline comfort level Outcome: Progressing Problem: Safety Adult - Fall Goal: Free from fall injury Outcome: Progressing lan of Ashley Matthews RN - 05/05/2021 12:46 PM PDT Neuro: A/OX 2, confused to place and situation. Pt is irritable, refuses cares at times, appears sad, tearful, irritable. Stated multiple times just leave me alone. Attempted to call von Nascimento today for emotional support for pt, no answer, got a hold of for pt to talk with. Von Nascimento in to seept today. Multiple attempts to take am medications made, pt very reluctant to take them and when shedid she spit them back out after letting them dissolve in her mouth. Refused BS check this afternoon. Resp: RA, diminished GI: No n/v, last bm 05/03/21 : No issues noted today Skin: Fragile skin, bruising on neck and many bruises on extremities. Calve wound dressings intact -attempted to change them this am pt refused, will try in afternoon. Refused x3 to allow me to change dressings requested they be changed at night when sleeping. Ambulation: 1PA to BSC IV: R PIV Gtt: 1/2 NS at 75ml/hr Pain: Reported back pain this am, Oxycodone given however, pt spit out meds this am after multiple attempts to get her to take. Pills were dissolved and unidentifiable. Intake: [facility] soft Coordinated facetime with using iPad this afternoon which cheered her up momentarily. Plan: Placement Hourly rounding done. Problem: Altered Nutrient Intake - Adult Goal: Nutrient intake appropriate for improving, restoring or maintaining nutritional needs Outcome: Progressing Problem: Skin/Tissue Integrity - Adult Goal: Skin integrity remains intact Outcome: Progressing lan of Care - Penny Ferguson RN - 05/05/2021 1:31 AM PDT Problem: Safety Adult - Fall Goal: Free from fall injury Outcome: Progressing Problem: Skin/Tissue Integrity - Adult Goal: Incisions, wounds, or drain sites healing without S/S of infection Outcome: Progressing Problem: Pain - Adult Goal: Verbalizes/displays adequate comfort level or baseline comfort level Outcome: Progressing Identify possible barriers to meeting goals/advancing plan of care: Placement Mobility/PT Wound care End of Shift/ Care Plan Summary: Assumed care of pt at 1900, handoff report received and safety checks in place. Bed is low and locked and call light is within reach. Resident is A/Ox3 with delayed responses. Dressing to BLE is clean, dry, and intact and scheduled to be changed / by noc shift. Wounds appear to be healing well withno visible s/sx of infection present. Resident is 1PA to bed side commode. Hourly rounding completed. lan of Guerda - Brigette Martinez RN - 05/04/2021 6:41 PM PDT Identify possible barriers to meeting goals/advancing plan of care: End of Shift/ Care Plan Summary: Report received from Richa Carroll RN and bedside safety checks made.A+Ox3. RA. Drowsy. Sleeping on/off throughout day shift. Drgs to BLE CDI. Drg to be changed noc shift 05/05. plant controls specialist would like report re: how wounds are healing. Hourly rounding completed with allneeds being met. Problem: Pain - Adult Goal: Verbalizes/displays adequate comfort level or baseline comfort level Description: Goal Description: INTERVENTIONS: 1. Encourage pt to monitor pain and request assistance 2. Assess pain using appropriate pain scale 3. Administer analgesics based on type and severity of pain and evaluate response 4. Implement non-pharmacological measures as appropriate and evaluate response 5. Consider cultural and social influences on pain and pain management 6. Notify LIP if interventions unsuccessful or patient reports new pain Outcome: Progressing Problem: Infection - Adult Goal: Absence of infection during hospitalization Description: Goal Description: INTERVENTIONS: 1. Assess and monitor for signs and symptoms of infection 2. Monitor lab/diagnostic results 3. Monitor all insertion sites i.e., indwelling lines, tubes and drains 4. Monitor endotracheal (as able) and nasal secretions for changes in amount and color 5. [place] appropriate cooling/warming therapies per order 6. Administer medications as ordered 7. Instruct and encourage patient and family to use good hand hygiene technique 8. Identify and instruct in appropriate isolation precautions for identified infection/condition Outcome: Progressing Problem: Safety Adult - Fall Goal: Free from fall injury Description: Goal Description: INTERVENTIONS: 1. Assess patient frequently for physical needs. 2. Identify cognitive and physical deficits and behaviors that affect risk of falls. 3. [place] fall precautions as indicated by assessment. 4. Educate patient/family on patient safety, including physical limitations. 5. Instruct patient to call for assistance with activity based on assessment. 6. Modify environment to reduce risk of injury. 7. Consider OT/PT consult to assist with strengthening/mobility. Outcome: Progressing Problem: Discharge Planning Goal: Discharge to home or other facility with appropriate resources Description: Goal Description: INTERVENTIONS: 1. Identify barriers to discharge with patient and caregiver. 2. Arrange for needed discharge resources and transportation as appropriate. 3. Identify discharge learning needs (meds, wound care, etc). 4. Arrange for interpreters to assist at discharge as needed. 5. Refer to Case Management Department for coordinating discharge planning if the patient needs post-hospital services based on physician order or complex needs related to functional status, cognitive ability or social support system. Outcome: Progressing Problem: Neurosensory - Adult Goal: Achieves maximal functionality and self care Description: Goal description: INTERVENTIONS 1. Monitor swallowing and airway patency with patient fatigue and changes in neurological status 2. Encourage and assist patient to increase activity and self care with guidance from PT/OT 3. Encourage visually impaired, hearing impaired and aphasic patients to use assistive/communicationdevices Outcome: Progressing Problem: Cardiovascular - Adult Goal: Maintains optimal cardiac output and hemodynamic stability Description: Goal description: INTERVENTIONS: 1. Monitor vital signs, rhythm, and trends 2. Monitor for bleeding, hypotension and signs of decreased cardiac output 3. Administer and titrate ordered vasoactive medications to optimize hemodynamic stability 4. Monitor arterial and/or venous puncture sites for bleeding and/or hematoma 5. Assess quality of pulses, skin color and temperature 6. Assess for signs of decreased coronary artery perfusion - ex. angina Outcome: Progressing lan of Filemon Mccarthy PT - 05/04/2021 9:17 AM PDT PT attempts in AM with patient refusing secondary to reported exhaustion. PT will continue to follow as appropriate. lan of Ricardo Estes RN - 05/04/2021 6:18 AM PDT Identify possible barriers to meeting goals/advancing plan of care: End of Shift/ Care Plan Summary: report received and safety checks made. Pt A+Ox2 and reports pain in lower back. Pt given oxycodone. Pt has multiple skins tears on the arms. Hourly rounding with all needs being met. Problem: Infection - Adult Goal: Isolation precautions followed Outcome: Progressing Problem: Discharge Planning Goal: Discharge to home or other facility with appropriate resources Outcome: Progressing lan of Summer Christianson - 05/03/2021 4:40 PM PDT Problem: Pain - Adult Goal: Verbalizes/displays adequate comfort level or baseline comfort level Outcome: Progressing Problem: Safety Adult - Fall Goal: Free from fall injury Outcome: Progressing Problem: Skin/Tissue Integrity - Adult Goal: Incisions, wounds, or drain sites healing without S/S of infection Outcome: Progressing Pt a+ox3-4, delayed responses. Large BM today. Up to chair with PT. 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 Sacral changed during the day. Medicated for pain with prn oxycodone . Q2 hour turns. Willcontinue to monitor. lan of Anya Trevino - 05/03/2021 4:45 AM PDT End of Shift/ Care Plan Summary: Pt had a slight decrease in mentation and became forgetful throughout the night Pt had dressings changed around 0500. Pt had pain in legs and back that was relieved with oxycodone VS stable Problem: Skin/Tissue Integrity - Adult Goal: Skin integrity remains intact Outcome: Progressing Goal: Incisions, wounds, or drain sites healing without S/S of infection Outcome: Progressing Problem: Pain - Adult Goal: Verbalizes/displays adequate comfort level or baseline comfort level Outcome: Not Progressing Problem: Neurosensory - Adult Goal: Achieves maximal functionality and self care Outcome: Not Progressing Problem: Genitourinary - Adult Goal: Urinary catheter remains patent Outcome: Completed lan of Brigette Goodwin RN - 05/02/2021 7:27 AM PDT Identify possible barriers to meeting goals/advancing plan of care: End of Shift/ Care Plan Summary: Report received and bedside safety checks made. A+Ox3. RA. BLE drg CDI. C/o pain to BLE this am. PRN tylenol administered. PRN oxy administered x2 for BLE pain. PT today. Mg administered per orders. Replaced mepilex to coccyx. CGA with FWW. Incont of B+B. Hourly rounding completed with all needs being met. Problem: Pain - Adult Goal: Verbalizes/displays adequate comfort level or baseline comfort level Description: Goal Description: INTERVENTIONS: 1. Encourage pt to monitor pain and request assistance 2. Assess pain using appropriate pain scale 3. Administer analgesics based on type and severity of pain and evaluate response 4. Implement non-pharmacological measures as appropriate and evaluate response 5. Consider cultural and social influences on pain and pain management 6. Notify LIP if interventions unsuccessful or patient reports new pain Outcome: Progressing Problem: Infection - Adult Goal: Absence of infection during hospitalization Description: Goal Description: INTERVENTIONS: 1. Assess and monitor for signs and symptoms of infection 2. Monitor lab/diagnostic results 3. Monitor all insertion sites i.e., indwelling lines, tubes and drains 4. Monitor endotracheal (as able) and nasal secretions for changes in amount and color 5. [place] appropriate cooling/warming therapies per order 6. Administer medications as ordered 7. Instruct and encourage patient and family to use good hand hygiene technique 8. Identify and instruct in appropriate isolation precautions for identified infection/condition Outcome: Progressing Problem: Safety Adult - Fall Goal: Free from fall injury Description: Goal Description: INTERVENTIONS: 1. Assess patient frequently for physical needs. 2. Identify cognitive and physical deficits and behaviors that affect risk of falls. 3. [place] fall precautions as indicated by assessment. 4. Educate patient/family on patient safety, including physical limitations. 5. Instruct patient to call for assistance with activity based on assessment. 6. Modify environment to reduce risk of injury. 7. Consider OT/PT consult to assist with strengthening/mobility. Outcome: Progressing Problem: Discharge Planning Goal: Discharge to home or other facility with appropriate resources Description: Goal Description: INTERVENTIONS: 1. Identify barriers to discharge with patient and caregiver. 2. Arrange for needed discharge resources and transportation as appropriate. 3. Identify discharge learning needs (meds, wound care, etc). 4. Arrange for interpreters to assist at discharge as needed. 5. Refer to Case Management Department for coordinating discharge planning if the patient needs post-hospital services based on physician order or complex needs related to functional status, cognitive ability or social support system. Outcome: Progressing lan of Guerda - Jermaine Garcia RN - 05/01/2021 7:13 AM PDT Identify possible barriers to meeting goals/advancing plan of care: End of Shift/ Care Plan Summary: Assumed care of pt at 1900. A/Ox1-2, delayed responses and confusedat times. Q2 turns performed, Mepilex changed when soiled. Pt denies pain/discomfort overnight. Planfor PT today. Call light within reach, bed low, care continues. Problem: Pain - Adult Goal: Verbalizes/displays adequate comfort level or baseline comfort level Outcome: Progressing Problem: Safety Adult - Fall Goal: Free from fall injury Outcome: Progressing Problem: Neurosensory - Adult Goal: Achieves maximal functionality and self care Outcome: Progressing lan of Guerda - Yamil Tanner RN - 04/30/2021 5:50 PM PDT Identify possible barriers to meeting goals/advancing plan of care: Placement. Pt too weak to stand at bedside with 2PA for more than about two seconds. Pt also having diarrhea/inconct. And is frequently painful with any movement or positioning. Pt also confused and off and on demanding, but not able to make clear what her needs are. End of Shift/ Care Plan Summary: Hourly rounding, Rx management, encourage pt to take nourishment, offer PT/OT. Problem: Pain - Adult Goal: Verbalizes/displays adequate comfort level or baseline comfort level Outcome: Progressing Problem: Infection - Adult Goal: Absence of infection during hospitalization Outcome: Progressing Problem: Safety Adult - Fall Goal: Free from fall injury Outcome: Progressing Problem: Discharge Planning Goal: Discharge to home or other facility with appropriate resources Outcome: Progressing lan of Jermaine Schreiber RN - 04/30/2021 5:40 AM PDT Identify possible barriers to meeting goals/advancing plan of care: End of Shift/ Care Plan Summary: Assumed care of pt at 1900. A/Ox1-2, delayed responses. Pt will at times start sentence and then mid sentence, stop and stare at wall. Denies pain/discomfort. BUE dressings changed, c/d/I. BLE dressings intact, to be changed today. Mepilex changed between pt's BMs. Call light within reach, bed low, care continues. Problem: Pain - Adult Goal: Verbalizes/displays adequate comfort level or baseline comfort level Outcome: Progressing Problem: Safety Adult - Fall Goal: Free from fall injury Outcome: Progressing Problem: Discharge Planning Goal: Discharge to home or other facility with appropriate resources Outcome: Progressing lan of Care - Yamil Tanner RN - 04/29/2021 5:14 PM PDT End of Shift/ Care Plan Summary: Pt having frequent diarrhea (Hx of IBS), PCR negative 04/22, Pt mostly bedrest, but move to increase mobility is under way. Pt transitioned to Lo dose Insulin sliding scale, Howard dc'd, IV fluids stopped, and other recent changes to orders. Pt A&Ox2, delayed responses, confused and sometimes speaking incoherently. Skin tears all over the place, wither JOSHUA or covered with mepelex. Red/pink area on coccys covered with Mepelex - small area of possible breakdown visible to right of gluteat cleft - barrier cream applied. BLE covered with gauze over sizable pressure sores on BLE/calfs. Problem: Pain - Adult Goal: Verbalizes/displays adequate comfort level or baseline comfort level Outcome: Progressing Problem: Infection - Adult Goal: Absence of infection during hospitalization Outcome: Progressing Problem: Safety Adult - Fall Goal: Free from fall injury Outcome: Progressing Problem: Discharge Planning Goal: Discharge to home or other facility with appropriate resources Outcome: Progressing lan of Care - Ricardo Pereira RN - 04/29/2021 6:39 AM PDT Identify possible barriers to meeting goals/advancing plan of care: End of Shift/ Care Plan Summary: report received and safety checks made. Pt A+Ox0 and denies pain. Pt had a BM in her bed that was watery and was unaware that she has a BM. The BM was all over her sheets and howard had to be removed because it was soiled. MD is aware that howard was removed and agreed it was unnecessary to insert another one. Mepelex on sacrum was changed and david care performed. MD wants a recent stool PCR that has not yet been collected. Problem: Infection - Adult Goal: Isolation precautions followed Outcome: Progressing Problem: Discharge Planning Goal: Discharge to home or other facility with appropriate resources Outcome: Progressing lan of Care - Destinee Rahman RN - 04/28/2021 1:20 PM PDT SHIFT NOTE NEURO: Alert to self, calm and cooperative. Delayed verbal responses. CARDIAC: Non tele. VSS. PULMONARY: low to mid 90's on RA GI/: Poor oral intake, Hypoglycemia, D5 NS maintenance fluids. SAFETY: Frequent rounding. Bed in low and locked position, bed alarm on, call light within reach. Skin/Wounds: Dressing changes completed by NOC RN early this morning. Wound RN Karen was updated. [id number]. Worked with PT today. Family: Max was updated on patient condition and plan of care. All questions answered. 1300 Report given to Filemon Mcleod RN for transfer of care. Patient transferred to [place] [id number] via patient bed. Problem: Pain - Adult Goal: Verbalizes/displays adequate comfort level or baseline comfort level Outcome: Progressing Flowsheets (Taken 04/28/2021 1314) Addressed this shift: Verbalizes/displays adequate comfort level or baseline comfort level: Assess pain using appropriate pain scale Problem: Safety Adult - Fall Goal: Free from fall injury Outcome: Progressing Flowsheets (Taken 04/28/2021 1314) Addressed this shift: Free from fall injury: Assess patient frequently for physical needs Identify cognitive and physical deficits and behaviors that affect risk of falls [place] fall precautions as indicated by assessment Instruct patient to call for assistance with activity based on assessment Modify environment to reduce risk of injury Consider OT/PT consult to assist with strengthening/mobility Note: Worked with PT today and sat up on bed and completed bed exercises. Problem: Discharge Planning Goal: Discharge to home or other facility with appropriate resources Outcome: Progressing Flowsheets (Taken 04/28/2021 1314) Addressed this shift: Discharge to home or other facility with appropriate resources: Identify barriers to discharge with patient and caregiver Problem: Neurosensory - Adult Goal: Achieves maximal functionality and self care Outcome: Progressing Flowsheets (Taken 04/28/2021 1314) Addressed this shift: Achieves maximal functionality and self care: Monitor swallowing and airway patency with patient fatigue and changes in neurological status Encourage and assist patient to increase activity and self care with guidance from PT/OT Problem: Respiratory - Adult Goal: Achieves optimal ventilation and oxygenation Outcome: Progressing Problem: Musculoskeletal - Adult Goal: Return mobility to safest level of function Outcome: Progressing Flowsheets (Taken 04/28/2021 1314) Addressed this shift: Return mobility to safest level of function: Assess patient stability and activity tolerance for standing, transferring and ambulating with or without assistive devices Assist with transfers and ambulation using safe patient handling equipment as needed Ensure adequate protection for wounds/incisions during mobilization Obtain PT/OT consults as needed Identify possible barriers to meeting goals/advancing plan of care: Poor oral intake, inability to complete ADL, wound care. End of Shift/ Care Plan Summary: (see notes above) lan of Guerda - Nidia Wells - 04/28/2021 6:15 AM PDT Identify possible barriers to meeting goals/advancing plan of care: wounds, altered mental status. End of Shift/ Care Plan Summary: Pt a&o to self, very sleepy for most of shift. O2 saturation 91-93% on RA. Pt had poor PO intake yesterday, BG levels very low. POCT glucose 59 at 2135, 25 mLs D50 administered per hypoglycemia protocol and MD notified. Pt had no visible signs of pain while sleeping. PRN oxycodone administered for pain with pt wound care. Repositioned Q 2hrs. Bed in the low, locked position with bed alarm on for pt safety. Problem: Pain - Adult Goal: Verbalizes/displays adequate comfort level or baseline comfort level Outcome: Progressing Flowsheets (Taken 04/28/2021 0614) Addressed this shift: Verbalizes/displays adequate comfort level or baseline comfort level: ??? Encourage patient to monitor pain and request assistance ??? Assess pain using appropriate pain scale ??? Administer analgesics based on type and severity of pain and evaluate response ??? Implement non-pharmacological measures as appropriate and evaluate response ??? Consider cultural and social influences on pain and pain management ??? Notify Licensed Independent Practitioner if interventions unsuccessful or patient reports new pain lan of Nidia Brantley - 04/27/2021 6:43 AM PDT Identify possible barriers to meeting goals/advancing plan of care: wound care, altered mental status End of Shift/ Care Plan Summary: Pt a&o to self, unable to console or communicate with pt, calling out for Max or saying help me. Pt was pulling on lines and dressing, trying to remove telemetry leads and taking off O2 with sats dropping below 87%. notified with new order for soft restraints given. During wound care on pts right leg, pt vocalizing pain with an increase in HR sustaining inthe 150's, PRN metoprolol given to decrease HR and oxycodne given for pain. PO medications administered crushed in pudding. 2 hour safety checks and repositioning. Howard intact/patent, draining yellow urine. Bed in the low, locked position. Problem: Pain - Adult Goal: Verbalizes/displays adequate comfort level or baseline comfort level Outcome: Progressing Flowsheets (Taken 04/27/2021 0642) Addressed this shift: Verbalizes/displays adequate comfort level or baseline comfort level: ??? Encourage patient to monitor pain and request assistance ??? Assess pain using appropriate pain scale ??? Administer analgesics based on type and severity of pain and evaluate response ??? Implement non-pharmacological measures as appropriate and evaluate response Problem: Respiratory - Adult Goal: Achieves optimal ventilation and oxygenation Outcome: Progressing Flowsheets (Taken 04/27/2021 0642) Addressed this shift: Achieves optimal ventilation and oxygenation: ??? Assess for changes in respiratory status ??? Assess for changes in mentation and behavior ??? Position to facilitate oxygenation and minimize respiratory effort ??? Oxygen supplementation based on oxygen saturation or arterial blood gases ??? Encourage broncho-pulmonary hygiene including cough, deep breathe, Incentive Spirometry ??? Assess the need for suctioning and aspirate as needed ??? Assess and instruct to report shortness of breath or any respiratory difficulty ??? Respiratory Therapy support as indicated lan of Heather Brannon RN - 04/26/2021 7:27 PM PDT Problem: Pain - Adult Goal: Verbalizes/displays adequate comfort level or baseline comfort level Outcome: Progressing Problem: Safety Adult - Fall Goal: Free from fall injury Outcome: Progressing Problem: Altered Nutrient Intake - Adult Goal: Nutrient intake appropriate for improving, restoring or maintaining nutritional needs Outcome: Progressing Problem: Cardiovascular - Adult Goal: Maintains optimal cardiac output and hemodynamic stability Outcome: Progressing Goal: Absence of cardiac dysrhythmias or at baseline Outcome: Progressing Problem: Respiratory - Adult Goal: Achieves optimal ventilation and oxygenation Outcome: Progressing Identify possible barriers to meeting goals/advancing plan of care: Altered mentation status End of Shift/ Care Plan Summary: Patient's mentation status fluctuated throughout shift. Pain was treated (see MAR). Patient denied nausea and vomiting. Had 4 episodes of diarrhea. MD Johnson notified, no new orders. Patient's BG of 65 was treated with dextrose (see MAR). Reassed post dextrose and BG was at 89. Total urine output of 650 mL during shift. Urine was yellow, clear, unable to assess. odor.Howard care performed. Plan of Care - Romy Walters RN - 04/26/2021 2:47 AM PDT Identify possible barriers to meeting goals/advancing plan of care: Restraints, deconditioning End of Shift/ Care Plan Summary: Patient has been restless for the first half the shift. Somehow managed to pull NG tube out at beginning of shift. Patient is more alert, becoming a little more verbal than help me or Max, able to express some needs and follow direction. Trial of water sips, applesauce and pudding; patient swallowed safely with cuing. Secure chat to Taher regarding NG removal andswallowing trial; stated okay to leave NG tube out tonight, will order speech evaluation. All meds given crush in pudding; no difficulties with swallowing. However, patient attempted to pull TIJ out while out of restraints for drinking water and eating pudding; reminder to patient that she cannot touch it; for safety concerns remained in soft wrist restraints when staff is out of the room for safety.C/o back and leg pain; tylenol given, somewhat helpful. Repositioned every 2 hours for comfort. Obtained order for x1 dose of seroquel to help calm patient down; effective as patient got some sleep/rest tonight. Howard in place, draining yellow urine. Had 1 round of loose stool at beginning of shift. No other concerns at this time. lan of Care - Minor, Dana Talbot RN - 04/25/2021 6:46 PM PDT Problem: Skin/Tissue Integrity - Adult Goal: Incisions, wounds, or drain sites healing without S/S of infection Flowsheets (Taken 04/25/2021 4146) Addressed this shift: Incision(s), wound(s) or drain site(s) healing without S/S of infection: ADMISSION & DAILY: Assess and document risk factors for pressure ulcer development TWICE DAILY: Assess and document skin integrity TWICE DAILY: Assess and document dressing/incision, wound bed, drain sites and surrounding tissue Implement wound care per orders Identify possible barriers to meeting goals/advancing plan of care: Bilateral, posterior LE wounds requiring surgical debridement on 04/18. End of Shift/ Care Plan Summary: All wounds changed per WOCN orders. Q2 turns. Frequent david care. Foam dressing on coccyx removed r/t contraindicated with frequent pure liquid stools. Offloading and zinc cream applied. Shift Summary Lou wakens to soft touch/voice and responds to her name. Her verbalization consisted of help me and max. When asked what she needs help with, she does not verbalize further. Intermittently can follow commands to squeeze hands/wiggle toes. Localizes pain. Per her Max at the bedside, her mentation has improved from yesterday. Bilateral wrist restraints in place to keep from pulling at lines. Using FELDT scale, 3/10 pain during Q2 turns/david care. Will cease vocalizations once repositioned. She was afebrile during shift. Tele remained NSR, intermittently tachycardia with turns/wound care up to 130s but did not sustain. Required no PRN HR or BP medication. Able to intermittently come off of 1L oxymask. When asleep, she will briefly drop to 86% but will recover. SPO2 WNL on RA while awake. Glucerna tube feed infusing per orders -- 50mls/hour with 135ml H20 flush Q2. Multiple pure liquid stools. Per Dr. Johnson, do not need to send for stool PCR or guaiac at this time. Howard is patent draining yellow hazy urine to gravity -- 650mls out for shift. Triple lumen internal jugular. Dressing with old brown drainage. Area is edematous and extensive bruising at side and around to back of neck is noted. IV therapy aware. PIV x1 SL. Diltiazem gtt Dc'd today, receiving PO crushed through NG tube. hydroponics worker following, continue wound care, PT. lan of Care - Louise Nava RN - 04/25/2021 12:49 AM PDT Identify possible barriers to meeting goals/advancing plan of care: End of Shift/ Care Plan Summary: PT resting in bed. Soft wrist restraints in place d/t pulling at lines. Bed alarm on for safety, safety checks complete. Neuro: Alert, disoriented x4, unable to make needs known, incomprehensible speech. Cardiovascular: Sinus Rhythm Respiratory: Diminished lung sounds bilaterally, oxymask 1L 93-96%. Musculoskeletal: BR, Q2T Skin: Scattered bruising, skin tears, pressure injuries scattered Pain: Feldt score 2, repositioning effective GI: NG patent, Glucerna 1.5 continuous at 50ml/hr. Bowel tones present, Last BM 04/24. : Howard catheter patent Gtts: Diltiazem 5mg/hr Problem: Cardiovascular - Adult Goal: Maintains optimal cardiac output and hemodynamic stability Description: Goal description: INTERVENTIONS: 1. Monitor vital signs, rhythm, and trends 2. Monitor for bleeding, hypotension and signs of decreased cardiac output 3. Administer and titrate ordered vasoactive medications to optimize hemodynamic stability 4. Monitor arterial and/or venous puncture sites for bleeding and/or hematoma 5. Assess quality of pulses, skin color and temperature 6. Assess for signs of decreased coronary artery perfusion - ex. angina Outcome: Progressing Flowsheets (Taken 04/25/2021 0048) Addressed this shift: Maintain optimal cardiac output and hemodynamic stability: Monitor vital signs, rhythm, and trends Monitor for bleeding, hypotension and signs of decreased cardiac output Administer and titrate ordered vasoactive medications to optimize hemodynamic stability Monitor arterial and/or venous puncture sites for bleeding and/or hematoma Assess quality of pulses, skin color and temperature Assess for signs of decreased coronary artery perfusion - ex. angina Problem: Respiratory - Adult Goal: Achieves optimal ventilation and oxygenation Description: Goal description: INTERVENTIONS: 1. Assess for changes in respiratory status 2. Assess for changes in mentation and behavior 3. Position to facilitate oxygenation and minimize respiratory effort 4. Oxygen supplementation based on oxygen saturation or ABGs 5. Initiate Smoking cessation Protocol as indicated 6. Encourage broncho-pulmonary hygiene including cough, deep breathe, Incentive Spirometry 7. Assess the need for suctioning and aspirate as needed 8. Assess and instruct to report SOB or any respiratory difficulty 9. Respiratory Therapy support as indicated Outcome: Progressing Flowsheets (Taken 04/25/202147) Addressed this shift: Achieves optimal ventilation and oxygenation: Assess for changes in respiratory status Assess for changes in mentation and behavior Position to facilitate oxygenation and minimize respiratory effort Oxygen supplementation based on oxygen saturation or arterial blood gases Assess the need for suctioning and aspirate as needed Encourage broncho-pulmonary hygiene including cough, deep breathe, Incentive Spirometry Respiratory Therapy support as indicated Assess and instruct to report shortness of breath or any respiratory difficulty Problem: Genitourinary - Adult Goal: Urinary catheter remains patent Description: Goal description: INTERVENTIONS: 1. Assess patency of urinary catheter. 2. Irrigate catheter per LIP order if indicated and notify LIP if unable to irrigate. 3. Assess need for a larger catheter size or a 3-way catheter for continuous bladder irrigation. Outcome: Progressing Flowsheets (Taken 04/25/202147) Addressed this shift: Urinary catheter remains patent: Assess patency of urinary catheter Problem: Skin/Tissue Integrity - Adult Goal: Incisions, wounds, or drain sites healing without S/S of infection Description: Goal description: INTERVENTIONS 1. ADMISSION & DAILY: Assess and document risk factors for pressure ulcer development 2. TWICE DAILY: Assess and document skin integrity 3. TWICE DAILY: Assess and document dressing/incision, wound bed, drain sites and surrounding tissue 4. Implement wound care per orders 5. Initiate isolation precautions as appropriate 6. Initiate Pressure Ulcer prevention bundle as indicated Outcome: Progressing Flowsheets (Taken 04/25/202147) Addressed this shift: Incision(s), wound(s) or drain site(s) healing without S/S of infection: ADMISSION & DAILY: Assess and document risk factors for pressure ulcer development TWICE DAILY: Assess and document skin integrity TWICE DAILY: Assess and document dressing/incision, wound bed, drain sites and surrounding tissue Implement wound care per orders Problem: Safety - Medical Restraint Goal: Remains free of injury from restraints (Restraint for Interference with Sanitarian Inspector) Description: Goal description: INTERVENTIONS: 1. Determine that other, less restrictive measures have been tried or would not be effective before applying the restraint 2. Evaluate the patient's condition at the time of restraint application 3. Inform patient/family regarding the reason for restraint 4. Q2H: Monitor safety, psychosocial status, comfort, nutrition and hydration Outcome: Progressing Flowsheets (Taken 04/25/2021 0048) Addressed this shift: Remains free of injury from restraints (restraint for interference with biomedical analytical scientist): Determine that other, less restrictive measures have been tried or would not be effective before applying the restraint Evaluate the patient's condition at the time of restraint application Inform patient/family regarding the reason for restraint Every 2 hours: Monitor safety, psychosocial status, comfort, nutrition and hydration lan of Care - Cari Richardson - 04/24/2021 4:10 AM PDT End of Shift/ Care Plan Summary: Unable to assess orientation. Pt responsive to voice, but unable tofollow commands. Q2 turns performed. Boots on to protect heels. Pt SR 80-100's, with intermittent SVT. SpO2 WDL on 1L oxymask. Tube feeding at goal (50ml/hr) @ 2200. Dilt gtt @ 5, see mar. Pt had leakage around her howard catheter, switched out for 18 Fr howard. Pt had 950 u/o over 1.5 hours following new howard placement. Problem: Neurosensory - Adult Goal: Achieves maximal functionality and self care Outcome: Progressing Flowsheets (Taken 04/24/2021 0410) Addressed this shift: Achieves maximal functionality and self care: ??? Monitor swallowing and airway patency with patient fatigue and changes in neurological status ??? Encourage and assist patient to increase activity and self care with guidance from PT/OT ??? Encourage visually impaired, hearing impaired and aphasic patients to use assistive/communication devices lan of Care - Marnie Michel RN - 04/23/2021 11:22 AM PDT Problem: Pain - Adult Goal: Verbalizes/displays adequate comfort level or baseline comfort level Outcome: Progressing Problem: Infection - Adult Goal: Isolation precautions followed Outcome: Progressing Goal: Absence of infection during hospitalization Outcome: Progressing Goal: Absence of fever/infection during anticipated neutropenic period Outcome: Progressing Problem: Safety Adult - Fall Goal: Free from fall injury Outcome: Progressing Problem: Discharge Planning Goal: Discharge to home or other facility with appropriate resources Outcome: Progressing Problem: Altered Nutrient Intake - Adult Goal: Nutrient intake appropriate for improving, restoring or maintaining nutritional needs Outcome: Progressing Problem: Neurosensory - Adult Goal: Achieves maximal functionality and self care Outcome: Progressing Problem: Cardiovascular - Adult Goal: Maintains optimal cardiac output and hemodynamic stability Outcome: Progressing Goal: Absence of cardiac dysrhythmias or at baseline Outcome: Progressing Problem: Respiratory - Adult Goal: Achieves optimal ventilation and oxygenation Outcome: Progressing Problem: Genitourinary - Adult Goal: Urinary catheter remains patent Outcome: Progressing Problem: Metabolic/Fluid and Electrolytes - Adult Goal: Electrolytes maintained within normal limits Outcome: Progressing Goal: Hemodynamic stability and optimal renal function maintained Outcome: Progressing Problem: Skin/Tissue Integrity - Adult Goal: Skin integrity remains intact Outcome: Progressing Goal: Incisions, wounds, or drain sites healing without S/S of infection Outcome: Progressing Problem: Hematologic - Adult Goal: Maintains hematologic stability Outcome: Progressing Problem: Musculoskeletal - Adult Goal: Return mobility to safest level of function Outcome: Progressing Goal: Return ADL status to a safe level of function Outcome: Progressing Problem: Safety - Medical Restraint Goal: Remains free of injury from restraints (Restraint for Interference with Sanitarian Inspector) Outcome: Progressing Goal: Free from restraint(s) (Restraint for Interference with Sanitarian Inspector) Outcome: Progressing Identify possible barriers to meeting goals/advancing plan of care: Sepsis management continued End of Shift/ Care Plan Summary: Pt responsive to voice and stimuli without any purposeful movement or following of commands. There is slight eye opening but no tracking. Pt continues to moan, but is not communicating properly. Pt is on 6 L OM with a saturation in the upper 90's. Pt's HR intermittently 160's-170's SVT, nonsustained. Diltiazem started for chronic PO diltiazem at home for Afib control. BP stable. Wound care completed per order. Restraints continued to prevent puling of Dobbhoff and oxygen. lan of Care - Filemon Pérez PT - 04/22/2021 9:48 AM PDT Discussed POC with MD with instructions to hold PT services today and follow up 04/23/2021. Plan of Care - Denise Teague RN - 04/22/2021 2:53 AM PDT Identify possible barriers to meeting goals/advancing plan of care: current condition (see below) End of Shift/ Care Plan Summary: Assumed care of pt at 1900. Safety checks done. Team: yellow Iso: none LOC: drowsy Orientation: to self Tele: SR, ST with a few longer runs of SVT O2: oxymask 6L. LS rhonchi, wet congested cough, gurgly breathing. GI: NPO due to mentation. Several loose Bms this shift : howard, 60mg lasix given IV: PIV x2 GTT: abx Skin: friable skin, generalized bruising, wounds BLE and BUE Mobility: Q2H turns Pain: agitated, restless 2044: pt showing signs of fluid overload, rhonchi, wet breathing, moist cough, weeping edema. Dr Wild notified. I inquired about stopping IVF NS at 100. declined my request to turn fluids off, stated pt was -2500mL since admit. 2049: notified Dr of other concerns like patient unable to take PO meds since admission because of altered mentation. Pt has not taken PO cardizem or eliquis. said eliquis is on hold because of contraindication of low H&H. Requested that dr actually put an order in to hold medication as it is still scheduled and active. 2099: a review of I&Os shows that no intake has been charted in 4 days. I&O not accurate, Dr. Wild notified. 2144: pt clearly in respiratory distress. RR mid 30s, HR 120s, pt restless and clearly in distress. MACHINE MAINTENANCE MECHANIC RN agrees that pt in respiratory distress. Dr. Wild notified, said he would come to the patient's room to evaluate. 2249: secure chat to Dr Wild to see if he is coming to assess patient, pt still in respiratory distress. CXR ordered. 2299: Dr wild and resident to bedside. Dr Wild ordered lasix. 2330: pt in and out of SVT with HR 170-180, Dr Wild notified. Metoprolol pushes ordered. Effective HR <100 0320: pt tachy HR 150s, 5mg metoprolol given and effective. 0330: BP 190/75, prn 10mg hydralazine given. Dr boogie Plan: echo, AU PAIR eval, family goals of care. Problem: Respiratory - Adult Goal: Achieves optimal ventilation and oxygenation Outcome: Not Progressing Flowsheets (Taken 04/22/2021 0253) Addressed this shift: Achieves optimal ventilation and oxygenation: ??? Assess for changes in respiratory status ??? Assess for changes in mentation and behavior ??? Position to facilitate oxygenation and minimize respiratory effort ??? Oxygen supplementation based on oxygen saturation or arterial blood gases ??? Assess and instruct to report shortness of breath or any respiratory difficulty Problem: Cardiovascular - Adult Goal: Maintains optimal cardiac output and hemodynamic stability Flowsheets (Taken 04/22/2021 0253) Addressed this shift: Maintain optimal cardiac output and hemodynamic stability: ??? Monitor vital signs, rhythm, and trends ??? Monitor for bleeding, hypotension and signs of decreased cardiac output ??? Assess quality of pulses, skin color and temperature ??? Monitor arterial and/or venous puncture sites for bleeding and/or hematoma lan of Care - Ana Maria Cesar RN - 04/21/2021 6:16 PM PDT Identify possible barriers to meeting goals/advancing plan of care: POC continues End of Shift/ Care Plan Summary: pt drowsy throughout shift. Responding to touch. Continued confusion. Pt restless intermittently. Speech unable to assess due to LOC. Telemetry and vss. Bp monitoring continues. Wound care in to eval wound and dressing. Care continues. Problem: Pain - Adult Goal: Verbalizes/displays adequate comfort level or baseline comfort level Outcome: Progressing Problem: Safety Adult - Fall Goal: Free from fall injury Outcome: Progressing Problem: Altered Nutrient Intake - Adult Goal: Nutrient intake appropriate for improving, restoring or maintaining nutritional needs Outcome: Progressing Problem: Neurosensory - Adult Goal: Achieves maximal functionality and self care Outcome: Progressing Problem: Cardiovascular - Adult Goal: Maintains optimal cardiac output and hemodynamic stability Outcome: Progressing Goal: Absence of cardiac dysrhythmias or at baseline Outcome: Progressing Problem: Respiratory - Adult Goal: Achieves optimal ventilation and oxygenation Outcome: Progressing Problem: Genitourinary - Adult Goal: Urinary catheter remains patent Outcome: Progressing Problem: Metabolic/Fluid and Electrolytes - Adult Goal: Electrolytes maintained within normal limits Outcome: Progressing Goal: Hemodynamic stability and optimal renal function maintained Outcome: Progressing Problem: Skin/Tissue Integrity - Adult Goal: Incisions, wounds, or drain sites healing without S/S of infection Outcome: Progressing Problem: Hematologic - Adult Goal: Maintains hematologic stability Outcome: Progressing Problem: Safety - Medical Restraint Goal: Remains free of injury from restraints (Restraint for Interference with Sanitarian Inspector) Outcome: Progressing Goal: Free from restraint(s) (Restraint for Interference with Sanitarian Inspector) Outcome: Progressing lan of Care - RubiermelindaKaminiaaron - 04/21/2021 5:50 AM PDT Talked with provider throughout the night. Pt was moaning and restless, FLACC score of 5-7. BP and HR elevated. See MAR for interventions. Pt had periods of rest and agitation. Problem: Pain - Adult Goal: Verbalizes/displays adequate comfort level or baseline comfort level Outcome: Not Progressing Flowsheets (Taken 04/20/2021 0643 by Nidia Wells) Addressed this shift: Verbalizes/displays adequate comfort level or baseline comfort level: Encourage patient to monitor pain and request assistance Assess pain using appropriate pain scale Administer analgesics based on type and severity of pain and evaluate response Implement non-pharmacological measures as appropriate and evaluate response Consider cultural and social influences on pain and pain management Note: Lou reported pain and had a FLACC score Identify possible barriers to meeting goals/advancing plan of care: communication End of Shift/ Care Plan Summary: lan of Guerda - Nidia Wells - 04/20/2021 6:43 AM PDT Identify possible barriers to meeting goals/advancing plan of care: multiple wounds to body. End of Shift/ Care Plan Summary: Pt confused, agitated/restless, pulling on howard/lines, and trying to climb out of bed unassisted. Non-violent bilat wrist restraints in place with 2 hour monitoring. On tele, SR. O2 saturation 95% on 2L supplemental oxygen via NC. Howard intact/patent, draining mary/clear urine. Bed in the low, locked position with bed alarm on for pt safety. Call light within reach Problem: Pain - Adult Goal: Verbalizes/displays adequate comfort level or baseline comfort level Outcome: Progressing Flowsheets (Taken 04/20/2021 0643) Addressed this shift: Verbalizes/displays adequate comfort level or baseline comfort level: ??? Encourage patient to monitor pain and request assistance ??? Assess pain using appropriate pain scale ??? Administer analgesics based on type and severity of pain and evaluate response ??? Implement non-pharmacological measures as appropriate and evaluate response ??? Consider cultural and social influences on pain and pain management Problem: Safety - Medical Restraint Goal: Remains free of injury from restraints (Restraint for Interference with Sanitarian Inspector) Outcome: Progressing Flowsheets (Taken 04/20/2021 0643) Addressed this shift: Remains free of injury from restraints (restraint for interference with biomedical analytical scientist): ??? Determine that other, less restrictive measures have been tried or would not be effective beforeapplying the restraint ??? Evaluate the patient's condition at the time of restraint application ??? Inform patient/family regarding the reason for restraint ??? Every 2 hours: Monitor safety, psychosocial status, comfort, nutrition and hydration lan of Guerda - Behzad Jaquez RN - 04/19/2021 6:19 PM PDT Problem: Pain - Adult Goal: Verbalizes/displays adequate comfort level or baseline comfort level Outcome: Progressing Problem: Infection - Adult Goal: Isolation precautions followed Outcome: Progressing Goal: Absence of infection during hospitalization Outcome: Progressing Goal: Absence of fever/infection during anticipated neutropenic period Outcome: Progressing Problem: Safety Adult - Fall Goal: Free from fall injury Outcome: Progressing Problem: Discharge Planning Goal: Discharge to home or other facility with appropriate resources Outcome: Progressing Problem: Altered Nutrient Intake - Adult Goal: Nutrient intake appropriate for improving, restoring or maintaining nutritional needs Outcome: Progressing Problem: Neurosensory - Adult Goal: Achieves maximal functionality and self care Outcome: Progressing Problem: Cardiovascular - Adult Goal: Maintains optimal cardiac output and hemodynamic stability Outcome: Progressing Goal: Absence of cardiac dysrhythmias or at baseline Outcome: Progressing Problem: Respiratory - Adult Goal: Achieves optimal ventilation and oxygenation Outcome: Progressing Problem: Genitourinary - Adult Goal: Urinary catheter remains patent Outcome: Progressing Problem: Metabolic/Fluid and Electrolytes - Adult Goal: Electrolytes maintained within normal limits Outcome: Progressing Goal: Hemodynamic stability and optimal renal function maintained Outcome: Progressing Problem: Skin/Tissue Integrity - Adult Goal: Skin integrity remains intact Outcome: Progressing Goal: Incisions, wounds, or drain sites healing without S/S of infection Outcome: Progressing Problem: Hematologic - Adult Goal: Maintains hematologic stability Outcome: Progressing Problem: Musculoskeletal - Adult Goal: Return mobility to safest level of function Outcome: Progressing Goal: Return ADL status to a safe level of function Outcome: Progressing Problem: Safety - Medical Restraint Goal: Remains free of injury from restraints (Restraint for Interference with Sanitarian Inspector) Outcome: Progressing Goal: Free from restraint(s) (Restraint for Interference with Sanitarian Inspector) Outcome: Progressing Identify possible barriers to meeting goals/advancing plan of care: neglectr , End of Shift/ Care Plan Summary: see note lan of Care - Nidia Wells - 04/19/2021 6:39 AM PDT Identify possible barriers to meeting goals/advancing plan of care: multiple wounds to body. End of Shift/ Care Plan Summary: Pt confused, agitated/restless, pulling on howard/lines, and trying to climb out of bed unassisted. Non-violent bilat wrist restraints in place with 2 hour monitoring. On tele, SR. O2 saturation 95% on 2L supplemental oxygen via NC. Howard intact/patent, draining mary/clear urine. Bed in the low, locked position with bed alarm on for pt safety. Call light within reach. Problem: Pain - Adult Goal: Verbalizes/displays adequate comfort level or baseline comfort level Outcome: Progressing Flowsheets (Taken 04/19/2021 0639) Addressed this shift: Verbalizes/displays adequate comfort level or baseline comfort level: ??? Encourage patient to monitor pain and request assistance ??? Assess pain using appropriate pain scale ??? Administer analgesics based on type and severity of pain and evaluate response ??? Implement non-pharmacological measures as appropriate and evaluate response ??? Consider cultural and social influences on pain and pain management Problem: Safety - Medical Restraint Goal: Remains free of injury from restraints (Restraint for Interference with Sanitarian Inspector) Outcome: Progressing Flowsheets (Taken 04/19/2021 0639) Addressed this shift: Remains free of injury from restraints (restraint for interference with biomedical analytical scientist): ??? Determine that other, less restrictive measures have been tried or would not be effective beforeapplying the restraint ??? Evaluate the patient's condition at the time of restraint application ??? Every 2 hours: Monitor safety, psychosocial status, comfort, nutrition and hydration lan of Guerda - Smiley Willis - 04/18/2021 6:20 PM PDT Identify possible barriers to meeting goals/advancing plan of care: pt has extensive wounds to body End of Shift/ Care Plan Summary: Assumed care of pt at 0700 from Rylan Casper RN. Handoff report and safety check completed. Neuro: oriented to self, follows commands, delayed responses and occasional aphasia Pain: complaints of pain to lower legs post surgery, prn morphine given once, HEENT: impaired vision, glasses at bedside Cardio: SR on tele; BP elevated but stable, pulses palpable, BLE +1 edema Resp: SpO2 >92% on RA Infection: afebrile GI: smear BM on shift, remains NPO; BG high : howard patent ~600 UO for shift Skin: pale, skin extremely friable, multiple skin tears to BUE and torso, surgical debridement in ORtoday of wounds to lower legs; RUE tears redressed with tefla and gauze MSK: generalized weakness; q2 turns Access/Gtt: LIJ trialysis capped and locked; PIV SL Psychosocial: intermittently anxious and crying but consolable, otherwise calm and cooperative 1030-pt to OR 1400- pt return from OR Problem: Pain - Adult Goal: Verbalizes/displays adequate comfort level or baseline comfort level Outcome: Progressing Problem: Infection - Adult Goal: Isolation precautions followed Outcome: Progressing Goal: Absence of infection during hospitalization Outcome: Progressing Goal: Absence of fever/infection during anticipated neutropenic period Outcome: Progressing Problem: Safety Adult - Fall Goal: Free from fall injury Outcome: Progressing Problem: Discharge Planning Goal: Discharge to home or other facility with appropriate resources Outcome: Progressing Problem: Altered Nutrient Intake - Adult Goal: Nutrient intake appropriate for improving, restoring or maintaining nutritional needs Outcome: Progressing Problem: Neurosensory - Adult Goal: Achieves maximal functionality and self care Outcome: Progressing Problem: Cardiovascular - Adult Goal: Maintains optimal cardiac output and hemodynamic stability Outcome: Progressing Goal: Absence of cardiac dysrhythmias or at baseline Outcome: Progressing Problem: Respiratory - Adult Goal: Achieves optimal ventilation and oxygenation Outcome: Progressing Problem: Genitourinary - Adult Goal: Urinary catheter remains patent Outcome: Progressing Problem: Metabolic/Fluid and Electrolytes - Adult Goal: Electrolytes maintained within normal limits Outcome: Progressing Goal: Hemodynamic stability and optimal renal function maintained Outcome: Progressing Problem: Skin/Tissue Integrity - Adult Goal: Skin integrity remains intact Outcome: Progressing Goal: Incisions, wounds, or drain sites healing without S/S of infection Outcome: Progressing Problem: Hematologic - Adult Goal: Maintains hematologic stability Outcome: Progressing Problem: Musculoskeletal - Adult Goal: Return mobility to safest level of function Outcome: Progressing Goal: Return ADL status to a safe level of function Outcome: Progressing Perioperative Nursing Note - Michael Gómez - 04/18/2021 12:51 PM PDT Pt rcvd from OR, dressing c/d/i bilateral calves. Dsg on right arm. Sacral dsg reported changed in OR after bm. Howard draining clear yellow urine, attached at leg. Pt awakens, aware of surroundings, moans when in pain. High BP to acceptable level with meds. Report given, moved to floor. p Note - Patria Cruz MD - 04/18/2021 11:29 AM PDT DATE OF PROCEDURE: 04/18/2021 PREOPERATIVE DIAGNOSIS: Bilateral calf pressure ulcers with necrosis. POSTOPERATIVE DIAGNOSIS: Bilateral calf pressure ulcers with necrosis. OPERATION: Sharp debridement right calf 10 x 7, left calf 7 x 6, and a small biopsy of normal adjacent skin. SURGEON: Patria Cruz MD TRUCK PACKER: Inés Andersen PA-C ANESTHESIA: General anesthetic. COMPLICATIONS: None. INDICATIONS: The patient is a 75-year-old female, presented with ischemic ulcerations of the posterior calves. The patient has many comorbidities and wound care has been working for the past month with progression of disease and necrosis. Plans were made for sharp debridement. FINDINGS: 1. Pressure necrosis, bilateral calves. 2. Specimen sent for pyoderma gangrenosum. DESCRIPTION OF PROCEDURE: The patient was brought to the operating room, given general anesthetic, placed in the prone position. The calves were carefully prepped and draped keeping tape off the fragile skin. Surgical pause undertaken. Broad-spectrum antibiotics given prior to incision. Using a knife, sharp debridement of the right calf ulcer measuring 10 x 7 cm was undertaken, excising black necrotic eschar down to viable fat. There was no rad pus, so some of the tissue was sent for culture and the remainder for specimen. An adjacent piece of normal appearing skin was submitted to rule out pyoderma gangrenosum. The left calf ulcer was 7 x 6 cm and sharp debridement carried out in identical fashion. Once completed, the wounds were scrubbed with saline and prep solution, covered by nonadherent dressing, 4 x 4's, fluffs and Kerlix. A small sacral breakdown was cleansed and covered with foam dressing. The patient was then extubated, transported to PACU in stable condition. Final counts were correct. Immediate Post Op Note - Patria Cruz MD - 04/18/2021 11:29 AM PDT debridement of bilateral calf wound (Bilateral) Procedure Note Procedure: debridement of bilateral calf wound CPT(R) Code: 11109 - DC DEBRIDEMENT, SKIN, SUB-Q TISSUE,=<20 SQ CM Indications: nonhealing ulcers bilat calves Pre-op Diagnosis * Pressure injury of skin of right and left calf, unspecified injury stage [L89.899] Post-op Diagnosis * Pressure injury of skin of right and left calf, unspecified injury stage [L89.899] Surgeon(s): Patria Cruz MD Anesthesia: General Staff: Clinical Review Specialist: Adele Mackey; Redd Zamora RN Physician Base Cloth Inspector: NEGRITA Reynolds Circulation Man: Kym Kocresson Assistants: Inés REES Procedure Details Sharp excision and debridement bilat calf ulcers bx normal skin for pyoderma gangrenosum Estimated Blood Loss: No blood loss documented. Blood Product Administration: No Specimens: ID Type Source Tests Collected by Time Destination A : tissue culture bilateral calves Tissue Leg, Right CULTURE, DEEP ABSCESS AEROBIC & ANAEROBICW/GRAM STAIN Patria Cruz MD 04/18/2021 1131 B : bilateral calf tissue , please test for pioderma gangrenoso Tissue Leg, Right MISCELLANEOUS LABTEST Patria Cruz MD 04/18/2021 1132 Drains: Urethral Catheter Double-lumen 16 Fr. (Active) Site Assessment Clean;Skin intact 04/18/21 0700 Collection Container Standard drainage bag 04/18/21 0700 Securement Method Securement device 04/18/21 0700 Reason for Continuing Urinary Catheterization past POD 1 Need accurate urine output in critically ill patients 04/18/21 0700 Output (mL) 750 mL 04/18/21 0700 Grafts/Implants: * No implants in log * Complications: None; patient tolerated the procedure well. Disposition: PACU - hemodynamically stable. Condition: stable Attending Attestation: I performed the procedure. Patria Cruz MD Medications: Preop and Intraop Administered Meds from 04/17/2021 1202 to 04/18/2021 1202 None The assistant executive housekeeper listed in the operative report is medically necessary for the successful completion ofthe case. lan of Rylan Bowen 04/18/2021 1:02 AM PDT Identify possible barriers to meeting goals/advancing plan of care: Debridement of legs in AM End of Shift/ Care Plan Summary: Assumed pt's care at ~0100 from KELSEY Price RN. Bedside handoff and safety check completed, found patient sleeping in bed. Whiteboard updated, allergies reviewed. Bed low and locked, call light in reach. Care and hourly monitoring ongoing. Admit Date: 04/15/2021 Code: Full Code Isolation: No active isolations Neuro: A+O x 4 forget and has delayed responses Infection: Afebrile Pain: Denies HEENT: Impaired vision Resp: Tachypnic Cardio: NSR Skin: Pale, abrasion, redness and tear generalized MSK: Weakness all extremities. 2p Q2T Bedrest GI: WDL : Howard Access/Gtt: Interjugular 75mL D5NS; L. FA TKO Psychosocial: Delayed responses and need assistance expressing concerns. Hematologic: Labs monitored; no critical values reported Events: Titrated O2 to RA from 4L's Problem: Pain - Adult Goal: Verbalizes/displays adequate comfort level or baseline comfort level Outcome: Progressing Problem: Infection - Adult Goal: Absence of infection during hospitalization Outcome: Progressing Problem: Safety Adult - Fall Goal: Free from fall injury Outcome: Progressing Problem: Discharge Planning Goal: Discharge to home or other facility with appropriate resources Outcome: Progressing Problem: Altered Nutrient Intake - Adult Goal: Nutrient intake appropriate for improving, restoring or maintaining nutritional needs Outcome: Progressing Problem: Neurosensory - Adult Goal: Achieves maximal functionality and self care Outcome: Progressing Problem: Cardiovascular - Adult Goal: Maintains optimal cardiac output and hemodynamic stability Outcome: Progressing Goal: Absence of cardiac dysrhythmias or at baseline Outcome: Progressing Problem: Respiratory - Adult Goal: Achieves optimal ventilation and oxygenation Outcome: Progressing Problem: Genitourinary - Adult Goal: Urinary catheter remains patent Outcome: Progressing Problem: Metabolic/Fluid and Electrolytes - Adult Goal: Electrolytes maintained within normal limits Outcome: Progressing Goal: Hemodynamic stability and optimal renal function maintained Outcome: Progressing Problem: Skin/Tissue Integrity - Adult Goal: Skin integrity remains intact Outcome: Progressing Goal: Incisions, wounds, or drain sites healing without S/S of infection Outcome: Progressing Flowsheets (Taken 04/18/2021 0101) Addressed this shift: Incision(s), wound(s) or drain site(s) healing without S/S of infection: ??? TWICE DAILY: Assess and document skin integrity ??? TWICE DAILY: Assess and document dressing/incision, wound bed, drain sites and surrounding tissue ??? Implement wound care per orders ??? Initiate Pressure Ulcer prevention bundle as indicated Problem: Hematologic - Adult Goal: Maintains hematologic stability Outcome: Progressing Problem: Musculoskeletal - Adult Goal: Return mobility to safest level of function Outcome: Progressing Goal: Return ADL status to a safe level of function Outcome: Progressing nitial Assessments - Cari Darby LICSW - 04/17/2021 4:22 PM PDT CASE MANAGEMENT : INITIAL ASSESSMENT Data: Per EMR review, patient is a 75 y.o. female with Payor: MEDICARE / Plan: MEDICARE PART A / Product Type: *No Product type* / . PCP is Rogelio Braga MD. Advance directives are completed- Requested Copy for Chart. Pt admitted on 04/15/2021 for Hyperkalemia [E87.5] Occult blood in stools [R19.5] Acute cystitis without hematuria [N30.00] Acute renal failure, unspecified acute renal failure type (CMS/HCC) [N17.9] Sepsis due to skin infection (CMS/HCC) [L03.90, A41.9] Acute anemia [D64.9]. Extended Emergency Contact Information Primary Emergency Contact: Khari Aguillon [address]: [address] [place] [phone] [facility] [place] Relation: Spouse In communication with provider, discharge needs have not been identified. Social Work consults to coordinate discharge services have not been ordered by provider at this time. PRECIPITATOR OPERATOR met with significant other at bedside. Social work role explained, contact information and discharge planning checklist provided. Pt resides in [facility] with her spouse in a private home. Pt does have a history with home health and/or fdc services. Pt has a hx at [facility] and [facility] rehab in [place]. Preference is for [facility] if ptrequires SNF again. Pt explained they have been doing oupt wound care at [facility] anddoing wound wrapping changes themselves at home every three days as home health does not go out to [facility] (They have to take a water Taxi [place] get [place] ferry option). Pt was doing well after getting out of [facility] earlier this year but has recently lost a lot of her strength per pt . They do have a wheelchair if needed but have 14 stepps to the second floor. Assessment: Not able to assess at this time. Per PRECIPITATOR OPERATOR interactions, Physician Documentation, and Nursing Documentation, patient has capacity for self care and has decisional capacity at this time. Plan: Anticipated discharge home with spouse with resumed outpt wound therapy. PRECIPITATOR OPERATOR to follow for anychanges in recommendations from Surgical team and PT in case disposition needs evolve. 04/17/21 1622 Discharge Planning Chart Reviewed Yes EHR Review The patient has been identified as high risk of requiring posthospital services, Case Management will continue to follow. Source of Information Significant Other Initial DC Planning Assessment Yes Lives with Spouse/significant other Support Systems Spouse/significant other Level of [place] Independent with ADLs and functional transfers Assistance Needed Healthcare Living Arrangements Private residence Mobility Equipment Front wheeled walker;Manual wheelchair Home Care Services No Patient expects to be discharged to: HOME Has a discharge transport plan been identified? (Pt spouse) Barriers to Discharge No barriers Insurance Coverage Prescription Drug Coverage Patient has prescription drug coverage Are you currenty receiving any VA benefits? 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 No Anticipated Discharge Needs Anticipated Discharge Needs Undetermined Anticipated Discharge Destination Home with family Equipment (DME) Recommendations None needed Who can help/be your primary caregiver at discharge? None needed ERIN Winslow Significant Event - Williams Baldwin RN - 04/17/2021 2:34 PM PDT 04/17/21 1420 Vital Signs Temp 36.8 ??C (98.3 ??F) Temp Source Axillary Heart Rate 96 Heart Rate Source Monitor Respirations 16 BP (!) 173/73 MAP 106.33 mmHg BP Location Right arm BP Method Automatic Patient Position Lying Oxygen Therapy SpO2 100 % O2 Delivery Method Nasal cannula O2 Flow Rate (L/min) 4 L/min Post-Hemodialysis Assessment Total Volume Given (mL) 230 mL (this si the blood back) Total Liters Processed (L/min) 54.1 L/min Dialyzer Clearance Lightly streaked Duration of Treatment (Minutes) 180 minutes Total Volume (UF) Removed (ML) 302 mL Patient Response to Treatment Treatment completed, blood returned, pt stable, access functioning well. Post-Hemodialysis Comments Hd cath functioning well, limbs locked with Heparin dwell Treatment Status Completed Net UF 72 ml Pt tolerated HD tx rather well except she went in and out of SVT x 2 but immediately she flipped back to SR. No chest pain reported. SVT rate 140's- 150's. Blood pressure stable with no pressors lan of Guerda - Angie Curtis RN - 04/17/2021 12:28 PM PDT Problem: Safety Adult - Fall Goal: Free from fall injury 04/17/2021 1228 by Angie Curtis RN Outcome: Not Progressing Problem: Neurosensory - Adult Goal: Achieves maximal functionality and self care 04/17/2021 1228 by Angie Curtis RN Outcome: Not Progressing Problem: Cardiovascular - Adult Goal: Maintains optimal cardiac output and hemodynamic stability 04/17/2021 1228 by Angie Curtis RN Outcome: Progressing Problem: Respiratory - Adult Goal: Achieves optimal ventilation and oxygenation 04/17/2021 1228 by Angie Curtis RN Outcome: Not Progressing Problem: Metabolic/Fluid and Electrolytes - Adult Goal: Hemodynamic stability and optimal renal function maintained 04/17/2021 1228 by Angie Curtis RN Outcome: Not Progressing Problem: Metabolic/Fluid and Electrolytes - Adult Goal: Electrolytes maintained within normal limits 04/17/2021 1228 by Angie Curtis RN Outcome: Not Progressing Identify possible barriers to meeting goals/advancing plan of care: dialysis needs End of Shift/ Care Plan Summary: 0700 report and safety checks done, no drips, NC @4L, more alert and less confusion today however still some in conversation or forgetfulness at times. BG in the 60's and patient remains NPO- 1200 Dialysis in process, no issues at this time. 1700 2 events of SVT during dialysis in which the patient went back into SR without intervention. lan of Care - Chip Ash RN - 04/17/2021 5:02 AM PDT Problem: Pain - Adult Goal: Verbalizes/displays adequate comfort level or baseline comfort level Outcome: Progressing Problem: Infection - Adult Goal: Absence of infection during hospitalization Outcome: Progressing Problem: Safety Adult - Fall Goal: Free from fall injury Outcome: Progressing Problem: Discharge Planning Goal: Discharge to home or other facility with appropriate resources Outcome: Progressing Problem: Altered Nutrient Intake - Adult Goal: Nutrient intake appropriate for improving, restoring or maintaining nutritional needs Outcome: Progressing Problem: Neurosensory - Adult Goal: Achieves maximal functionality and self care Outcome: Progressing Problem: Cardiovascular - Adult Goal: Maintains optimal cardiac output and hemodynamic stability Outcome: Progressing Goal: Absence of cardiac dysrhythmias or at baseline Outcome: Progressing Problem: Respiratory - Adult Goal: Achieves optimal ventilation and oxygenation Outcome: Progressing Problem: Genitourinary - Adult Goal: Urinary catheter remains patent Outcome: Progressing Problem: Metabolic/Fluid and Electrolytes - Adult Goal: Electrolytes maintained within normal limits Outcome: Progressing Goal: Hemodynamic stability and optimal renal function maintained Outcome: Progressing Problem: Skin/Tissue Integrity - Adult Goal: Skin integrity remains intact Outcome: Progressing Goal: Incisions, wounds, or drain sites healing without S/S of infection Outcome: Progressing Problem: Hematologic - Adult Goal: Maintains hematologic stability Outcome: Progressing Problem: Musculoskeletal - Adult Goal: Return mobility to safest level of function Outcome: Progressing Goal: Return ADL status to a safe level of function Outcome: Progressing Mild tachycardia, on 4L NC. Blood pressure labile/hard to get accurate reading. Tele SR/ST. A+Ox4 but forgetful and confused at times. Howard patent with minimal output, no BM. ignificant Event - Williams Baldwin RN - 04/16/2021 3:49 PM PDT 04/16/21 1534 Vital Signs Temp 36.9 ??C (98.4 ??F) Temp Source Axillary Heart Rate 95 Respirations 15 BP 151/80 MAP 103.67 mmHg Oxygen Therapy SpO2 100 % Post-Hemodialysis Assessment Total Volume Given (mL) 270 mL Total Liters Processed (L/min) 37.6 L/min Dialyzer Clearance Lightly streaked Duration of Treatment (Minutes) 150 minutes Total Volume (UF) Removed (ML) 302 mL Patient Response to Treatment Treatment completed, blood returned, pt tenious as evidenced by the need for pressors and SVT and AFIB, access functioning well. Post-Hemodialysis Comments Hd cath functioning well, limbs locked with Heparin dwell Treatment Status Completed Patient Status Other (Comment) (stayed in the room as she is ccu status) UF NET 32 (removed 300 ml returned 270 ml). Pt remain somnolent thru the HD tx. She did open her eyes to voice commands and was able to answer simple question requiring yes/no answers. She is rather tremulous. Her cardiac rhythm showed SR, ST, SVT and Afib in and out of all of them max rate 150's, see HD flow sheet for exact times. Doctor Ananupdated regarding pt's condition. Pt was on levo at the beginning of tx and still is on levo. ADD: arterial limb and venous limb were locked with 1.8 ml of 1000 units/ml concentration heparin. Again the [employer] system did not allow us to document it. Pharmacist aware of situation. lan of Care - Angie Curtis RN - 04/16/2021 10:42 AM PDT Problem: Pain - Adult Goal: Verbalizes/displays adequate comfort level or baseline comfort level Outcome: Progressing Problem: Cardiovascular - Adult Goal: Maintains optimal cardiac output and hemodynamic stability Outcome: Progressing Problem: Respiratory - Adult Goal: Achieves optimal ventilation and oxygenation Outcome: Progressing Problem: Genitourinary - Adult Goal: Urinary catheter remains patent Outcome: Progressing Problem: Metabolic/Fluid and Electrolytes - Adult Goal: Electrolytes maintained within normal limits Outcome: Progressing Problem: Hematologic - Adult Goal: Maintains hematologic stability Outcome: Progressing Identify possible barriers to meeting goals/advancing plan of care: cardiac support, dialysis End of Shift/ Care Plan Summary: 0700 report and safety checks, Levo infusing @10, bicarb infusing at 125/hr. Vitals stable, titrating levo down. 1000 Levo was titrated down, however patient dropped to 60's/20's so restarted at 6 and titrated. Bolus started per MD Lux, Bicarb stopped. Dialysis on standby while puts tricath in. Wound therapy consulted for various wounds patient states she sees outpt wound therapy. 1500 Pt having runs of SVT, unable to get accurate bp, MD Wild at bedside, ok to put arterial line. Palpating sbp while waiting for the ICU team to place line. BLAINE Stewart dialysis also at bedside. EKG ordered due to arrythmias and It showed intermittant afib RVR-relayed this to MD Wild lan of Care - Chip Ash RN - 04/16/2021 6:14 AM PDT Problem: Pain - Adult Goal: Verbalizes/displays adequate comfort level or baseline comfort level 04/16/2021 06 by Chip Ash RN Outcome: Progressing 04/16/2021 0613 by Chip Ash RN Outcome: Progressing 04/16/2021 0546 by Chip Ash RN Outcome: Progressing Problem: Infection - Adult Goal: Absence of infection during hospitalization 04/16/2021 0614 by Chip Ash RN Outcome: Progressing 04/16/2021 0613 by Chip Ash RN Outcome: Progressing 04/16/2021 0546 by Chip Ash RN Outcome: Progressing Problem: Safety Adult - Fall Goal: Free from fall injury 04/16/2021 0614 by Chip Ash RN Outcome: Progressing 04/16/2021 0613 by Chip Ash RN Outcome: Progressing 04/16/2021 0546 by Chip Ash RN Outcome: Progressing Problem: Discharge Planning Goal: Discharge to home or other facility with appropriate resources 04/16/2021 0614 by Chip Ash RN Outcome: Progressing 04/16/2021 0613 by Chip Ash RN Outcome: Progressing 04/16/2021 0546 by Chip Ash RN Outcome: Progressing Problem: Altered Nutrient Intake - Adult Goal: Nutrient intake appropriate for improving, restoring or maintaining nutritional needs 04/16/2021 0614 by Chip Ash RN Outcome: Progressing 04/16/2021 0613 by Chip Ash RN Outcome: Progressing 04/16/2021 0546 by Chip Ash RN Outcome: Progressing Problem: Neurosensory - Adult Goal: Achieves maximal functionality and self care Outcome: Progressing Problem: Cardiovascular - Adult Goal: Maintains optimal cardiac output and hemodynamic stability Outcome: Progressing Goal: Absence of cardiac dysrhythmias or at baseline Outcome: Progressing Problem: Respiratory - Adult Goal: Achieves optimal ventilation and oxygenation Outcome: Progressing Problem: Genitourinary - Adult Goal: Urinary catheter remains patent Outcome: Progressing Problem: Metabolic/Fluid and Electrolytes - Adult Goal: Electrolytes maintained within normal limits Outcome: Progressing Goal: Hemodynamic stability and optimal renal function maintained Outcome: Progressing Problem: Skin/Tissue Integrity - Adult Goal: Skin integrity remains intact Outcome: Progressing Goal: Incisions, wounds, or drain sites healing without S/S of infection Outcome: Progressing Problem: Hematologic - Adult Goal: Maintains hematologic stability Outcome: Progressing Problem: Musculoskeletal - Adult Goal: Return mobility to safest level of function Outcome: Progressing Goal: Return ADL status to a safe level of function Outcome: Progressing Took over care of pt from Farhad Cruz RN. Hypotensive, Levo titrated to 12mcg/min. On 4L via NC. A+Ox3-4, easily woken up. Howard patent. Brief placed and changed. CP (Advance Care Planning) - Ana Maria Narvaez MD - 04/16/2021 1:41 AM PDT [facility] Advanced Care Planning Note Inpatient Primary Care [facility] Patient Name: Shirin Aguillon Date of : 1945 Age: 75 y.o. Code Status: Prior Primary Care Physician: Rogelio Braga MD Attending Provider: Ana Maria Narvaez MD Date of Service: 04/16/2021 Purpose of Encounter Goals of Care discussion Parties in Attendance Patient and Decisional Capacity The patient has decisional capacity. Subjective/Patient Story 75-year-old lady history of DVT type 2 diabetes obesity who presents with acute kidney injury and hyperkalemia. She also has sepsis with lactic acidosis most likely secondary to UTI. Objective/Medical Story/Diagnosis(es) Patient Active Problem List Diagnosis Date Noted ??? Psoriatic arthritis ([facility]) 05/31/2019 ??? Grief 07/18/2018 ??? Seronegative rheumatoid arthritis of multiple sites ([facility]) 08/22/2017 ??? Osteoarthropathy 08/22/2017 ??? Type II diabetes mellitus with complication ([facility]) 08/22/2017 ??? Renal insufficiency 08/22/2017 ??? Abdominal pain 07/28/2020 ??? Functional diarrhea 07/28/2020 ??? Nausea and vomiting 07/28/2020 ??? Excessive body weight loss 07/28/2020 Goals of Care Determinations Full code Plan The patient is aware of the current diagnosis and would like to continue to be full code. The patient understands that this means for chest compressions, intubation, pressors, and all measures involved with CPR. Code Status FULL CODE Time Spent on Advanced Planning Discussion and Documents Greater than 16 minutes Advanced Care Planning Documents Discussed Yes Electronically signed by: Ana Maria Narvaez MD 04/16/2021 1:41 AM documented in this encounter Plan of Treatment Upcoming Encounters Date Type Specialty Care Team Description 06/04/2021 Telemedicine Cardiology Nikko Tan MD [address] [place] [address] [phone] 07/07/2021 Office Visit Rheumatology Chet Shepherd MD [address] [place], [place] [id number] Scheduled Orders Name Type Priority Associated Diagnoses Order S chedule POCT glucose PRN Point of Care Routine As needed until Testing discontinued st arting 04/29/2021, 47 completed POCT glucose Point of Care Routine As needed unti l Testing discontinued st arting 04/29/2021, 41 completed ECG 12 lead- prn ECG STAT As needed u ntil chest pain discontinued st arting 05/17/2021 Scheduled Referrals Name Type Priority Associated Order Schedule Diagnoses Ambulatory Referral to Outpatient Routine Acute renal 1 Occ urrences Cardiac Rehabilitation Referral failure, start ing unspecified acute 05/17/2021 until renal failure type 2 ([facility]) documented as of this encounter Implants Implanted Type Area Abrasive Grader Helper Device Shelf Model / Identifier Expiration Serial / Date Lot Stent Dari Carmona 3.50*15 - [id number] Stent N/A: Coronary LUJAN [id number] / Implanted: Qty: 1 on 05/17/2021 at [facility] / [id number] documented as of this encounter Procedures Procedure Name Priority Date/Time Associated Comments Diagnosis DISCHARGE PATIENT Routine 05/27/2021 1:54 PM PDT POCT GLUCOSE Routine 05/27/2021 12:21 Results for this PM PDT procedure are i n the results section. COMPLETE BLOOD COUNT Routine 05/27/2021 8:07 Res ults for this AM PDT procedure are i n the results section. BASIC METABOLIC PANEL Routine 05/27/2021 8:07 Re sults for this AM PDT procedure are i n the results section. POCT GLUCOSE Routine 05/27/2021 7:47 Results for this AM PDT procedure are i n the results section. POCT GLUCOSE Routine 05/26/2021 8:53 Results for this PM PDT procedure are i n the results section. POCT GLUCOSE Routine 05/26/2021 8:52 Results for this PM PDT procedure are i n the results section. POCT GLUCOSE Routine 05/26/2021 4:45 Results for this PM PDT procedure are i n the results section. POCT GLUCOSE Routine 05/26/2021 12:00 Results for this PM PDT procedure are i n the results section. POCT GLUCOSE Routine 05/26/2021 8:30 Results for this AM PDT procedure are i n the results section. COMPLETE BLOOD COUNT Routine 05/26/2021 5:23 Res ults for this AM PDT procedure are i n the results section. MAGNESIUM Routine 05/26/2021 5:23 Results for this AM PDT procedure are i n the results section. COMPREHENSIVE METABOLIC Routine 05/26/2021 5:23 Results for this PANEL AM PDT procedure are i n the results section. POCT GLUCOSE Routine 05/25/2021 5:42 Results for this PM PDT procedure are i n the results section. POCT GLUCOSE Routine 05/25/2021 11:42 Results for this AM PDT procedure are i n the results section. POCT GLUCOSE Routine 05/25/2021 9:13 Results for this AM PDT procedure are i n the results section. COMPLETE BLOOD COUNT Routine 05/25/2021 4:20 Res ults for this AM PDT procedure are i n the results section. BASIC METABOLIC PANEL Routine 05/25/2021 4:20 Re sults for this AM PDT procedure are i n the results section. POCT GLUCOSE Routine 05/24/2021 8:41 Results for this PM PDT procedure are i n the results section. POCT GLUCOSE Routine 05/24/2021 5:01 Results for this PM PDT procedure are i n the results section. TROPONIN Routine 05/24/2021 2:45 Results for this PM PDT procedure are i n the results section. CK AND CK-MB Routine 05/24/2021 2:45 Results for this PM PDT procedure are i n the results section. POCT GLUCOSE Routine 05/24/2021 12:35 Results for this PM PDT procedure are i n the results section. POCT GLUCOSE Routine 05/24/2021 8:23 Results for this AM PDT procedure are i n the results section. COMPLETE BLOOD COUNT Routine 05/24/2021 7:01 Res ults for this WITH DIFF RESULT AM PDT procedure a re in the results section. COMPLETE BLOOD COUNT Routine 05/24/2021 7:01 Res ults for this WITH DIFF AM PDT procedure are i n the results section. TROPONIN Routine 05/24/2021 7:01 Results for this AM PDT procedure are i n the results section. MAGNESIUM Routine 05/24/2021 7:01 Results for this AM PDT procedure are i n the results section. CK AND CK-MB Add-On 05/24/2021 7:01 Results for this AM PDT procedure are i n the results section. BASIC METABOLIC PANEL Routine 05/24/2021 7:01 Re sults for this AM PDT procedure are i n the results section. ECG 12-LEAD STAT 05/24/2021 12:26 Results for this AM PDT procedure are i n the results section. POCT GLUCOSE Routine 05/23/2021 10:13 Results for this PM PDT procedure are i n the results section. POCT GLUCOSE Routine 05/23/2021 5:07 Results for this PM PDT procedure are i n the results section. POCT GLUCOSE Routine 05/23/2021 11:31 Results for this AM PDT procedure are i n the results section. ECHOCARDIOGRAM LIMITED Routine 05/23/2021 8:10 R esults for this AM PDT procedure are i n the results section. POCT GLUCOSE Routine 05/23/2021 8:08 Results for this AM PDT procedure are i n the results section. COMPLETE BLOOD COUNT Routine 05/23/2021 4:54 Res ults for this WITH DIFF RESULT AM PDT procedure a re in the results section. COMPLETE BLOOD COUNT Routine 05/23/2021 4:54 Res ults for this WITH DIFF AM PDT procedure are i n the results section. MAGNESIUM Routine 05/23/2021 4:54 Results for this AM PDT procedure are i n the results section. COMPREHENSIVE METABOLIC Routine 05/23/2021 4:54 Results for this PANEL AM PDT procedure are i n the results section. POCT GLUCOSE Routine 05/22/2021 7:57 Results for this PM PDT procedure are i n the results section. POCT GLUCOSE Routine 05/22/2021 4:48 Results for this PM PDT procedure are i n the results section. ECG 12-LEAD STAT 05/22/2021 2:28 Results for this PM PDT procedure are i n the results section. POCT GLUCOSE Routine 05/22/2021 11:59 Results for this AM PDT procedure are i n the results section. COMPLETE BLOOD COUNT Routine 05/22/2021 6:59 Res ults for this WITH DIFF RESULT AM PDT procedure a re in the results section. COMPLETE BLOOD COUNT Routine 05/22/2021 6:59 Res ults for this WITH DIFF AM PDT procedure are i n the results section. THYROID STIMULATING Routine 05/22/2021 6:59 Resu lts for this HORMONE AM PDT procedure are i n the results section. MAGNESIUM Timed 05/22/2021 6:59 Results for this AM PDT procedure are i n the results section. HEPATIC FUNCTION PANEL Routine 05/22/2021 6:59 R esults for this AM PDT procedure are i n the results section. BASIC METABOLIC PANEL Routine 05/22/2021 6:59 Re sults for this AM PDT procedure are i n the results section. ECG 12-LEAD Routine 05/21/2021 1:29 Results for this AM PDT procedure are i n the results section. COMPLETE BLOOD COUNT Routine 05/21/2021 1:16 Res ults for this WITH DIFF RESULT AM PDT procedure a re in the results section. COMPLETE BLOOD COUNT Routine 05/21/2021 1:16 Res ults for this WITH DIFF AM PDT procedure are i n the results section. TROPONIN STAT 05/21/2021 1:16 Results for this AM PDT procedure are i n the results section. MAGNESIUM STAT 05/21/2021 1:16 Results for this AM PDT procedure are i n the results section. CREATINE KINASE MB Routine 05/21/2021 1:16 Resul ts for this AM PDT procedure are i n the results section. BASIC METABOLIC PANEL STAT 05/21/2021 1:16 Re sults for this AM PDT procedure are i n the results section. ECG 12-LEAD Routine 05/21/2021 12:45 Results for this AM PDT procedure are i n the results section. POCT GLUCOSE Routine 05/20/2021 7:12 Results for this PM PDT procedure are i n the results section. SURGICAL PATHOLOGY Routine 05/20/2021 5:54 Dysphagia, Resul ts for this PM PDT unspecified type procedure a re in the results section. UPPER GASTROINTESTINAL 05/20/2021 5:47 Dysphagia, ENDOSCOPY WITH BALLOON PM PDT unspecified type DILATION OF ESOPHAGUS UPPER GASTROINTESTINAL 05/20/2021 5:47 Dysphagia, ENDOSCOPY WITH BIOPSY PM PDT unspecified type POCT GLUCOSE Routine 05/20/2021 10:07 Results for this AM PDT procedure are i n the results section. PREPARE/CROSSMATCH RBC STAT 05/20/2021 6:30 R esults for this AM PDT procedure are i n the results section. COMPLETE BLOOD COUNT Routine 05/20/2021 5:44 Res ults for this WITH DIFF RESULT AM PDT procedure a re in the results section. PROTHROMBIN TIME Routine 05/20/2021 5:44 Results for this AM PDT procedure are i n the results section. COMPLETE BLOOD COUNT Routine 05/20/2021 5:44 Res ults for this WITH DIFF AM PDT procedure are i n the results section. MAGNESIUM Timed 05/20/2021 5:44 Results for this AM PDT procedure are i n the results section. BASIC METABOLIC PANEL Routine 05/20/2021 5:44 Re sults for this AM PDT procedure are i n the results section. POCT GLUCOSE Routine 05/19/2021 8:58 Results for this PM PDT procedure are i n the results section. HEMOGLOBIN AND STAT 05/19/2021 8:19 Results f or this HEMATOCRIT PM PDT procedure are i n the results section. POCT GLUCOSE Routine 05/19/2021 4:59 Results for this PM PDT procedure are i n the results section. TRANSFUSE RED BLOOD STAT 05/19/2021 3:09 CELLS PM PDT POCT GLUCOSE Routine 05/19/2021 11:35 Results for this AM PDT procedure are i n the results section. POCT GLUCOSE Routine 05/19/2021 8:04 Results for this AM PDT procedure are i n the results section. EXTRA TUBES Routine 05/19/2021 4:31 Results for this AM PDT procedure are i n the results section. RED TOP Routine 05/19/2021 4:31 Results for this AM PDT procedure are i n the results section. COMPLETE BLOOD COUNT Routine 05/19/2021 4:20 Res ults for this WITH DIFF RESULT AM PDT procedure a re in the results section. PROTHROMBIN TIME Routine 05/19/2021 4:20 Results for this AM PDT procedure are i n the results section. COMPLETE BLOOD COUNT Routine 05/19/2021 4:20 Res ults for this WITH DIFF AM PDT procedure are i n the results section. TYPE AND SCREEN Routine 05/19/2021 4:20 Results for this AM PDT procedure are i n the results section. MAGNESIUM STAT 05/19/2021 4:20 Results for this AM PDT procedure are i n the results section. BASIC METABOLIC PANEL Routine 05/19/2021 4:20 Re sults for this AM PDT procedure are i n the results section. POCT GLUCOSE Routine 05/18/2021 9:16 Results for this PM PDT procedure are i n the results section. POCT GLUCOSE Routine 05/18/2021 5:33 Results for this PM PDT procedure are i n the results section. POCT GLUCOSE Routine 05/18/2021 1:17 Results for this PM PDT procedure are i n the results section. POCT GLUCOSE Routine 05/18/2021 7:39 Results for this AM PDT procedure are i n the results section. COMPLETE BLOOD COUNT Routine 05/18/2021 6:20 Res ults for this WITH DIFF RESULT AM PDT procedure a re in the results section. COMPLETE BLOOD COUNT Routine 05/18/2021 6:20 Res ults for this WITH DIFF AM PDT procedure are i n the results section. MAGNESIUM Timed 05/18/2021 6:20 Results for this AM PDT procedure are i n the results section. BASIC METABOLIC PANEL Routine 05/18/2021 6:20 Re sults for this AM PDT procedure are i n the results section. POCT GLUCOSE Routine 05/17/2021 8:01 Results for this PM PDT procedure are i n the results section. ECG 12-LEAD STAT 05/17/2021 4:13 Results for this PM PDT procedure are i n the results section. POCT GLUCOSE Routine 05/17/2021 4:00 Results for this PM PDT procedure are i n the results section. SI LEFT HEART CATH Routine 05/17/2021 3:31 Resul ts for this PM PDT procedure are i n the results section. SI STENT ANDREA - CORONARY Routine 05/17/2021 3:31 Results for this PM PDT procedure are i n the results section. POCT GLUCOSE Routine 05/17/2021 12:44 Results for this PM PDT procedure are i n the results section. EXTRA TUBES Routine 05/17/2021 8:48 Results for this AM PDT procedure are i n the results section. PST - LIHEPARIN Routine 05/17/2021 8:48 Results for this AM PDT procedure are i n the results section. PARTIAL THROMBOPLASTIN STAT 05/17/2021 8:40 R esults for this TIME, ACTIVATED AM PDT procedure ar e in the results section. COMPLETE BLOOD COUNT Routine 05/17/2021 5:39 Res ults for this WITH DIFF RESULT AM PDT procedure a re in the results section. COMPLETE BLOOD COUNT Routine 05/17/2021 5:39 Res ults for this WITH DIFF AM PDT procedure are i n the results section. BASIC METABOLIC PANEL Routine 05/17/2021 5:38 Re sults for this AM PDT procedure are i n the results section. PARTIAL THROMBOPLASTIN Timed 05/17/2021 1:11 R esults for this TIME, ACTIVATED AM PDT procedure ar e in the results section. POCT GLUCOSE Routine 05/16/2021 8:23 Results for this PM PDT procedure are i n the results section. PARTIAL THROMBOPLASTIN Timed 05/16/2021 6:07 R esults for this TIME, ACTIVATED PM PDT procedure ar e in the results section. POCT GLUCOSE Routine 05/16/2021 5:11 Results for this PM PDT procedure are i n the results section. POCT GLUCOSE Routine 05/16/2021 12:12 Results for this PM PDT procedure are i n the results section. EXTRA TUBES Routine 05/16/2021 11:19 Results for this AM PDT procedure are i n the results section. PST - LIHEPARIN Routine 05/16/2021 11:19 Results for this AM PDT procedure are i n the results section. TROPONIN Add-On 05/16/2021 11:19 Results for this AM PDT procedure are i n the results section. CK AND CK-MB Add-On 05/16/2021 11:19 Results for this AM PDT procedure are i n the results section. BASIC METABOLIC PANEL Add-On 05/16/2021 11:19 Re sults for this AM PDT procedure are i n the results section. EXTRA TUBES Routine 05/16/2021 11:18 Results for this AM PDT procedure are i n the results section. LAVENDER TOP Routine 05/16/2021 11:18 Results for this AM PDT procedure are i n the results section. PARTIAL THROMBOPLASTIN Routine 05/16/2021 10:36 R esults for this TIME, ACTIVATED AM PDT procedure ar e in the results section. ECHOCARDIOGRAM LIMITED Routine 05/16/2021 9:36 R esults for this AM PDT procedure are i n the results section. POCT GLUCOSE Routine 05/16/2021 9:25 Results for this AM PDT procedure are i n the results section. POCT GLUCOSE Routine 05/16/2021 7:48 Results for this AM PDT procedure are i n the results section. COMPLETE BLOOD COUNT Routine 05/16/2021 2:22 Res ults for this WITH DIFF RESULT AM PDT procedure a re in the results section. PARTIAL THROMBOPLASTIN STAT 05/16/2021 2:22 R esults for this TIME, ACTIVATED AM PDT procedure ar e in the results section. COMPLETE BLOOD COUNT Routine 05/16/2021 2:22 Res ults for this WITH DIFF AM PDT procedure are i n the results section. PARTIAL THROMBOPLASTIN Timed 05/16/2021 12:08 R esults for this TIME, ACTIVATED AM PDT procedure ar e in the results section. POCT GLUCOSE Routine 05/15/2021 9:34 Results for this PM PDT procedure are i n the results section. COMPLETE BLOOD COUNT Routine 05/15/2021 5:23 Res ults for this WITH DIFF RESULT PM PDT procedure a re in the results section. COMPLETE BLOOD COUNT Routine 05/15/2021 5:23 Res ults for this WITH DIFF PM PDT procedure are i n the results section. POCT GLUCOSE Routine 05/15/2021 4:48 Results for this PM PDT procedure are i n the results section. TROPONIN Routine 05/15/2021 4:32 Results for this PM PDT procedure are i n the results section. ECG 12-LEAD Routine 05/15/2021 12:33 Results for this PM PDT procedure are i n the results section. TROPONIN STAT 05/15/2021 12:29 Results for this PM PDT procedure are i n the results section. CK AND CK-MB Add-On 05/15/2021 12:29 Results for this PM PDT procedure are i n the results section. POCT GLUCOSE Routine 05/15/2021 12:27 Results for this PM PDT procedure are i n the results section. COMPLETE BLOOD COUNT Timed 05/15/2021 8:56 Res ults for this WITH DIFF RESULT AM PDT procedure a re in the results section. COMPLETE BLOOD COUNT Timed 05/15/2021 8:56 Res ults for this WITH DIFF AM PDT procedure are i n the results section. MAGNESIUM Timed 05/15/2021 8:56 Results for this AM PDT procedure are i n the results section. BASIC METABOLIC PANEL Timed 05/15/2021 8:56 Re sults for this AM PDT procedure are i n the results section. POCT GLUCOSE Routine 05/15/2021 8:48 Results for this AM PDT procedure are i n the results section. POCT GLUCOSE Routine 05/14/2021 9:31 Results for this PM PDT procedure are i n the results section. POCT GLUCOSE Routine 05/14/2021 4:56 Results for this PM PDT procedure are i n the results section. POCT GLUCOSE Routine 05/14/2021 12:20 Results for this PM PDT procedure are i n the results section. POCT GLUCOSE Routine 05/14/2021 8:33 Results for this AM PDT procedure are i n the results section. POCT GLUCOSE Routine 05/14/2021 6:06 Results for this AM PDT procedure are i n the results section. POCT GLUCOSE Routine 05/13/2021 8:01 Results for this PM PDT procedure are i n the results section. POCT GLUCOSE Routine 05/13/2021 4:59 Results for this PM PDT procedure are i n the results section. EXTRA TUBES Routine 05/13/2021 8:19 Results for this AM PDT procedure are i n the results section. PST - LIHEPARIN Routine 05/13/2021 8:19 Results for this AM PDT procedure are i n the results section. POCT GLUCOSE Routine 05/13/2021 8:10 Results for this AM PDT procedure are i n the results section. COMPLETE BLOOD COUNT Timed 05/13/2021 8:09 Res ults for this WITH DIFF RESULT AM PDT procedure a re in the results section. COMPLETE BLOOD COUNT Timed 05/13/2021 8:09 Res ults for this WITH DIFF AM PDT procedure are i n the results section. MAGNESIUM Timed 05/13/2021 8:09 Results for this AM PDT procedure are i n the results section. BASIC METABOLIC PANEL Timed 05/13/2021 8:09 Re sults for this AM PDT procedure are i n the results section. POCT GLUCOSE Routine 05/12/2021 9:05 Results for this PM PDT procedure are i n the results section. POCT GLUCOSE Routine 05/12/2021 4:57 Results for this PM PDT procedure are i n the results section. POCT GLUCOSE Routine 05/12/2021 12:12 Results for this PM PDT procedure are i n the results section. POCT GLUCOSE Routine 05/12/2021 8:08 Results for this AM PDT procedure are i n the results section. EXTRA TUBES Routine 05/12/2021 5:22 Results for this AM PDT procedure are i n the results section. LAVENDER TOP Routine 05/12/2021 5:22 Results for this AM PDT procedure are i n the results section. MAGNESIUM Routine 05/12/2021 5:22 Results for this AM PDT procedure are i n the results section. BASIC METABOLIC PANEL Add-On 05/12/2021 5:22 Re sults for this AM PDT procedure are i n the results section. POCT GLUCOSE Routine 05/11/2021 9:22 Results for this PM PDT procedure are i n the results section. POCT GLUCOSE Routine 05/11/2021 5:50 Results for this PM PDT procedure are i n the results section. POCT GLUCOSE Routine 05/11/2021 12:43 Results for this PM PDT procedure are i n the results section. POCT GLUCOSE Routine 05/11/2021 8:36 Results for this AM PDT procedure are i n the results section. COMPLETE BLOOD COUNT Routine 05/11/2021 5:50 Res ults for this WITH DIFF RESULT AM PDT procedure a re in the results section. COMPLETE BLOOD COUNT Routine 05/11/2021 5:50 Res ults for this WITH DIFF AM PDT procedure are i n the results section. MAGNESIUM Routine 05/11/2021 5:50 Results for this AM PDT procedure are i n the results section. ALBUMIN Routine 05/11/2021 5:50 Results for this AM PDT procedure are i n the results section. BASIC METABOLIC PANEL Routine 05/11/2021 5:50 Re sults for this AM PDT procedure are i n the results section. POCT GLUCOSE Routine 05/10/2021 8:34 Results for this PM PDT procedure are i n the results section. POCT GLUCOSE Routine 05/10/2021 5:45 Results for this PM PDT procedure are i n the results section. POCT GLUCOSE Routine 05/10/2021 11:44 Results for this AM PDT procedure are i n the results section. POCT GLUCOSE Routine 05/10/2021 8:25 Results for this AM PDT procedure are i n the results section. COMPLETE BLOOD COUNT Routine 05/10/2021 6:40 Res ults for this WITH DIFF RESULT AM PDT procedure a re in the results section. COMPLETE BLOOD COUNT Routine 05/10/2021 6:40 Res ults for this WITH DIFF AM PDT procedure are i n the results section. MAGNESIUM Routine 05/10/2021 6:40 Results for this AM PDT procedure are i n the results section. ALBUMIN Add-On 05/10/2021 6:40 Results for this AM PDT procedure are i n the results section. BASIC METABOLIC PANEL Routine 05/10/2021 6:40 Re sults for this AM PDT procedure are i n the results section. POCT GLUCOSE Routine 05/09/2021 8:40 Results for this PM PDT procedure are i n the results section. POCT GLUCOSE Routine 05/09/2021 6:06 Results for this PM PDT procedure are i n the results section. POCT GLUCOSE Routine 05/09/2021 12:24 Results for this PM PDT procedure are i n the results section. POCT GLUCOSE Routine 05/09/2021 8:24 Results for this AM PDT procedure are i n the results section. COMPLETE BLOOD COUNT Routine 05/09/2021 6:57 Res ults for this WITH DIFF RESULT AM PDT procedure a re in the results section. COMPLETE BLOOD COUNT Routine 05/09/2021 6:57 Res ults for this WITH DIFF AM PDT procedure are i n the results section. MAGNESIUM Routine 05/09/2021 6:57 Results for this AM PDT procedure are i n the results section. BASIC METABOLIC PANEL Routine 05/09/2021 6:57 Re sults for this AM PDT procedure are i n the results section. POCT GLUCOSE Routine 05/08/2021 8:01 Results for this PM PDT procedure are i n the results section. POCT GLUCOSE Routine 05/08/2021 5:29 Results for this PM PDT procedure are i n the results section. POCT GLUCOSE Routine 05/08/2021 12:00 Results for this PM PDT procedure are i n the results section. POCT GLUCOSE Routine 05/08/2021 7:30 Results for this AM PDT procedure are i n the results section. COMPLETE BLOOD COUNT Routine 05/08/2021 6:56 Res ults for this WITH DIFF RESULT AM PDT procedure a re in the results section. COMPLETE BLOOD COUNT Routine 05/08/2021 6:56 Res ults for this WITH DIFF AM PDT procedure are i n the results section. MAGNESIUM Routine 05/08/2021 6:56 Results for this AM PDT procedure are i n the results section. BASIC METABOLIC PANEL Routine 05/08/2021 6:56 Re sults for this AM PDT procedure are i n the results section. POCT GLUCOSE Routine 05/07/2021 5:09 Results for this PM PDT procedure are i n the results section. POCT GLUCOSE Routine 05/07/2021 12:00 Results for this PM PDT procedure are i n the results section. EXTRA TUBES Routine 05/07/2021 10:11 Results for this AM PDT procedure are i n the results section. PST - LIHEPARIN Routine 05/07/2021 10:11 Results for this AM PDT procedure are i n the results section. COMPLETE BLOOD COUNT Routine 05/07/2021 9:52 Res ults for this WITH DIFF RESULT AM PDT procedure a re in the results section. COMPLETE BLOOD COUNT Routine 05/07/2021 9:52 Res ults for this WITH DIFF AM PDT procedure are i n the results section. POCT GLUCOSE Routine 05/07/2021 9:13 Results for this AM PDT procedure are i n the results section. POCT GLUCOSE Routine 05/07/2021 8:00 Results for this AM PDT procedure are i n the results section. HEMOGLOBIN AND Routine 05/07/2021 6:07 Results f or this HEMATOCRIT AM PDT procedure are i n the results section. MAGNESIUM Routine 05/07/2021 6:07 Results for this AM PDT procedure are i n the results section. BASIC METABOLIC PANEL Routine 05/07/2021 6:07 Re sults for this AM PDT procedure are i n the results section. URINALYSIS (DIP ONLY) Routine 05/07/2021 3:52 Re sults for this AM PDT procedure are i n the results section. URINE MICROSCOPIC Routine 05/07/2021 3:52 Result s for this AM PDT procedure are i n the results section. URINALYSIS (DIP ONLY) Routine 05/07/2021 3:52 Re sults for this AM PDT procedure are i n the results section. CULTURE, URINE Routine 05/07/2021 3:52 Results f or this AM PDT procedure are i n the results section. POCT GLUCOSE Routine 05/06/2021 9:08 Results for this PM PDT procedure are i n the results section. POCT GLUCOSE Routine 05/06/2021 12:57 Results for this PM PDT procedure are i n the results section. POCT GLUCOSE Routine 05/06/2021 8:32 Results for this AM PDT procedure are i n the results section. HEMOGLOBIN AND Routine 05/06/2021 6:15 Results f or this HEMATOCRIT AM PDT procedure are i n the results section. MAGNESIUM Routine 05/06/2021 6:15 Results for this AM PDT procedure are i n the results section. BASIC METABOLIC PANEL Routine 05/06/2021 6:15 Re sults for this AM PDT procedure are i n the results section. POCT GLUCOSE Routine 05/05/2021 8:07 Results for this PM PDT procedure are i n the results section. URINALYSIS (DIP ONLY) Routine 05/05/2021 5:44 Re sults for this PM PDT procedure are i n the results section. URINE MICROSCOPIC Routine 05/05/2021 5:44 Result s for this PM PDT procedure are i n the results section. PROTEIN CREATININE Routine 05/05/2021 5:44 Resul ts for this RATIO, URINE PM PDT procedure are i n the results section. URINALYSIS (DIP ONLY) Routine 05/05/2021 5:44 Re sults for this PM PDT procedure are i n the results section. CULTURE, URINE Routine 05/05/2021 5:44 Results f or this PM PDT procedure are i n the results section. POCT GLUCOSE Routine 05/05/2021 5:40 Results for this PM PDT procedure are i n the results section. POCT GLUCOSE Routine 05/05/2021 8:20 Results for this AM PDT procedure are i n the results section. HEMOGLOBIN AND Routine 05/05/2021 6:36 Results f or this HEMATOCRIT AM PDT procedure are i n the results section. MAGNESIUM Routine 05/05/2021 6:36 Results for this AM PDT procedure are i n the results section. BASIC METABOLIC PANEL Routine 05/05/2021 6:36 Re sults for this AM PDT procedure are i n the results section. POCT GLUCOSE Routine 05/04/2021 7:43 Results for this PM PDT procedure are i n the results section. POCT GLUCOSE Routine 05/04/2021 11:44 Results for this AM PDT procedure are i n the results section. POCT GLUCOSE Routine 05/04/2021 9:08 Results for this AM PDT procedure are i n the results section. HEMOGLOBIN AND Routine 05/04/2021 6:43 Results f or this HEMATOCRIT AM PDT procedure are i n the results section. BASIC METABOLIC PANEL Routine 05/04/2021 6:43 Re sults for this AM PDT procedure are i n the results section. POCT GLUCOSE Routine 05/03/2021 9:02 Results for this PM PDT procedure are i n the results section. POCT GLUCOSE Routine 05/03/2021 5:27 Results for this PM PDT procedure are i n the results section. POCT GLUCOSE Routine 05/03/2021 12:28 Results for this PM PDT procedure are i n the results section. POCT GLUCOSE Routine 05/03/2021 8:22 Results for this AM PDT procedure are i n the results section. COMPLETE BLOOD COUNT Routine 05/03/2021 7:11 Res ults for this WITH DIFF RESULT AM PDT procedure a re in the results section. COMPLETE BLOOD COUNT Routine 05/03/2021 7:11 Res ults for this WITH DIFF AM PDT procedure are i n the results section. BASIC METABOLIC PANEL Routine 05/03/2021 7:11 Re sults for this AM PDT procedure are i n the results section. POCT GLUCOSE Routine 05/02/2021 8:35 Results for this PM PDT procedure are i n the results section. POCT GLUCOSE Routine 05/02/2021 4:55 Results for this PM PDT procedure are i n the results section. POCT GLUCOSE Routine 05/02/2021 11:41 Results for this AM PDT procedure are i n the results section. POCT GLUCOSE Routine 05/02/2021 8:13 Results for this AM PDT procedure are i n the results section. COMPLETE BLOOD COUNT Routine 05/02/2021 7:09 Res ults for this WITH DIFF RESULT AM PDT procedure a re in the results section. COMPLETE BLOOD COUNT Routine 05/02/2021 7:09 Res ults for this WITH DIFF AM PDT procedure are i n the results section. MAGNESIUM Add-On 05/02/2021 7:09 Results for this AM PDT procedure are i n the results section. BASIC METABOLIC PANEL Routine 05/02/2021 7:09 Re sults for this AM PDT procedure are i n the results section. POCT GLUCOSE Routine 05/01/2021 9:27 Results for this PM PDT procedure are i n the results section. POCT GLUCOSE Routine 05/01/2021 5:36 Results for this PM PDT procedure are i n the results section. POCT GLUCOSE Routine 05/01/2021 12:23 Results for this PM PDT procedure are i n the results section. POCT GLUCOSE Routine 05/01/2021 9:34 Results for this AM PDT procedure are i n the results section. COMPLETE BLOOD COUNT Routine 05/01/2021 9:21 Res ults for this WITH DIFF RESULT AM PDT procedure a re in the results section. COMPLETE BLOOD COUNT Routine 05/01/2021 9:21 Res ults for this WITH DIFF AM PDT procedure are i n the results section. MAGNESIUM Routine 05/01/2021 9:21 Results for this AM PDT procedure are i n the results section. BASIC METABOLIC PANEL Routine 05/01/2021 9:21 Re sults for this AM PDT procedure are i n the results section. POCT GLUCOSE Routine 04/30/2021 8:56 Results for this PM PDT procedure are i n the results section. POCT GLUCOSE Routine 04/30/2021 4:58 Results for this PM PDT procedure are i n the results section. COMPLETE BLOOD COUNT Routine 04/30/2021 6:24 Res ults for this WITH DIFF RESULT AM PDT procedure a re in the results section. COMPLETE BLOOD COUNT Routine 04/30/2021 6:24 Res ults for this WITH DIFF AM PDT procedure are i n the results section. BASIC METABOLIC PANEL Routine 04/30/2021 6:24 Re sults for this AM PDT procedure are i n the results section. POCT GLUCOSE Routine 04/29/2021 9:15 Results for this PM PDT procedure are i n the results section. POCT GLUCOSE Routine 04/29/2021 12:05 Results for this PM PDT procedure are i n the results section. POCT GLUCOSE Routine 04/29/2021 8:45 Results for this AM PDT procedure are i n the results section. EXTRA TUBES Routine 04/29/2021 6:39 Results for this AM PDT procedure are i n the results section. PST - LIHEPARIN Routine 04/29/2021 6:39 Results for this AM PDT procedure are i n the results section. COMPLETE BLOOD COUNT Routine 04/29/2021 5:27 Res ults for this WITH DIFF RESULT AM PDT procedure a re in the results section. COMPLETE BLOOD COUNT Routine 04/29/2021 5:27 Res ults for this WITH DIFF AM PDT procedure are i n the results section. POCT GLUCOSE Routine 04/29/2021 3:00 Results for this AM PDT procedure are i n the results section. POCT GLUCOSE Routine 04/28/2021 9:40 Results for this PM PDT procedure are i n the results section. POCT GLUCOSE Routine 04/28/2021 4:05 Results for this PM PDT procedure are i n the results section. POCT GLUCOSE Routine 04/28/2021 11:34 Results for this AM PDT procedure are i n the results section. OXYGEN THERAPY STAT 04/28/2021 8:00 AM PDT COMPLETE BLOOD COUNT Routine 04/28/2021 7:36 Res ults for this WITH DIFF RESULT AM PDT procedure a re in the results section. COMPLETE BLOOD COUNT Routine 04/28/2021 7:36 Res ults for this WITH DIFF AM PDT procedure are i n the results section. COMPREHENSIVE METABOLIC Routine 04/28/2021 7:35 Results for this PANEL AM PDT procedure are i n the results section. POCT GLUCOSE Routine 04/28/2021 7:34 Results for this AM PDT procedure are i n the results section. POCT GLUCOSE Routine 04/28/2021 4:08 Results for this AM PDT procedure are i n the results section. POCT GLUCOSE Routine 04/28/2021 1:32 Results for this AM PDT procedure are i n the results section. POCT GLUCOSE Routine 04/27/2021 11:15 Results for this PM PDT procedure are i n the results section. POCT GLUCOSE Routine 04/27/2021 10:02 Results for this PM PDT procedure are i n the results section. POCT GLUCOSE Routine 04/27/2021 9:35 Results for this PM PDT procedure are i n the results section. OXYGEN THERAPY STAT 04/27/2021 8:00 PM PDT POCT GLUCOSE Routine 04/27/2021 7:27 Results for this PM PDT procedure are i n the results section. POCT GLUCOSE Routine 04/27/2021 4:57 Results for this PM PDT procedure are i n the results section. POCT GLUCOSE Routine 04/27/2021 9:55 Results for this AM PDT procedure are i n the results section. OXYGEN THERAPY STAT 04/27/2021 8:00 AM PDT COMPLETE BLOOD COUNT Routine 04/27/2021 5:48 Res ults for this WITH DIFF RESULT AM PDT procedure a re in the results section. COMPLETE BLOOD COUNT Routine 04/27/2021 5:48 Res ults for this WITH DIFF AM PDT procedure are i n the results section. COMPREHENSIVE METABOLIC Routine 04/27/2021 5:48 Results for this PANEL AM PDT procedure are i n the results section. POCT GLUCOSE Routine 04/27/2021 3:45 Results for this AM PDT procedure are i n the results section. POCT GLUCOSE Routine 04/27/2021 12:30 Results for this AM PDT procedure are i n the results section. POCT GLUCOSE Routine 04/26/2021 8:55 Results for this PM PDT procedure are i n the results section. OXYGEN THERAPY STAT 04/26/2021 8:00 PM PDT POCT GLUCOSE Routine 04/26/2021 4:52 Results for this PM PDT procedure are i n the results section. POCT GLUCOSE Routine 04/26/2021 3:49 Results for this PM PDT procedure are i n the results section. POCT GLUCOSE Routine 04/26/2021 12:36 Results for this PM PDT procedure are i n the results section. POCT GLUCOSE Routine 04/26/2021 9:22 Results for this AM PDT procedure are i n the results section. OXYGEN THERAPY STAT 04/26/2021 8:00 AM PDT COMPLETE BLOOD COUNT Routine 04/26/2021 3:29 Res ults for this WITH DIFF RESULT AM PDT procedure a re in the results section. COMPLETE BLOOD COUNT Routine 04/26/2021 3:29 Res ults for this WITH DIFF AM PDT procedure are i n the results section. MAGNESIUM Routine 04/26/2021 3:29 Results for this AM PDT procedure are i n the results section. COMPREHENSIVE METABOLIC Routine 04/26/2021 3:29 Results for this PANEL AM PDT procedure are i n the results section. POCT GLUCOSE Routine 04/26/2021 3:19 Results for this AM PDT procedure are i n the results section. POCT GLUCOSE Routine 04/25/2021 8:40 Results for this PM PDT procedure are i n the results section. OXYGEN THERAPY STAT 04/25/2021 8:00 PM PDT POCT GLUCOSE Routine 04/25/2021 4:50 Results for this PM PDT procedure are i n the results section. POCT GLUCOSE Routine 04/25/2021 10:01 Results for this AM PDT procedure are i n the results section. OXYGEN THERAPY STAT 04/25/2021 8:00 AM PDT POCT GLUCOSE Routine 04/25/2021 6:52 Results for this AM PDT procedure are i n the results section. COMPLETE BLOOD COUNT Routine 04/25/2021 5:08 Res ults for this WITH DIFF RESULT AM PDT procedure a re in the results section. COMPLETE BLOOD COUNT Routine 04/25/2021 5:08 Res ults for this WITH DIFF AM PDT procedure are i n the results section. COMPREHENSIVE METABOLIC Routine 04/25/2021 5:08 Results for this PANEL AM PDT procedure are i n the results section. POCT GLUCOSE Routine 04/25/2021 3:57 Results for this AM PDT procedure are i n the results section. POCT GLUCOSE Routine 04/24/2021 9:36 Results for this PM PDT procedure are i n the results section. OXYGEN THERAPY STAT 04/24/2021 8:00 PM PDT MAGNESIUM Routine 04/24/2021 11:57 Results for this AM PDT procedure are i n the results section. BASIC METABOLIC PANEL Routine 04/24/2021 11:57 Re sults for this AM PDT procedure are i n the results section. OXYGEN THERAPY STAT 04/24/2021 8:00 AM PDT COMPREHENSIVE METABOLIC Routine 04/24/2021 7:17 Results for this PANEL AM PDT procedure are i n the results section. COMPLETE BLOOD COUNT Routine 04/24/2021 4:30 Res ults for this WITH DIFF RESULT AM PDT procedure a re in the results section. COMPLETE BLOOD COUNT Routine 04/24/2021 4:30 Res ults for this WITH DIFF AM PDT procedure are i n the results section. POCT GLUCOSE Routine 04/24/2021 2:11 Results for this AM PDT procedure are i n the results section. POCT GLUCOSE Routine 04/23/2021 8:15 Results for this PM PDT procedure are i n the results section. OXYGEN THERAPY STAT 04/23/2021 8:00 PM PDT XR CHEST 1 VIEW STAT 04/23/2021 4:52 Results for this PM PDT procedure are i n the results section. POCT GLUCOSE Routine 04/23/2021 2:05 Results for this PM PDT procedure are i n the results section. POCT GLUCOSE Routine 04/23/2021 10:09 Results for this AM PDT procedure are i n the results section. BLOOD GAS ARTERIAL Routine 04/23/2021 9:44 Resul ts for this AM PDT procedure are i n the results section. ECHOCARDIOGRAM COMPLETE Routine 04/23/2021 8:20 Results for this AM PDT procedure are i n the results section. OXYGEN THERAPY STAT 04/23/2021 8:00 AM PDT AMMONIA Routine 04/23/2021 7:06 Results for this AM PDT procedure are i n the results section. COMPLETE BLOOD COUNT Routine 04/23/2021 5:27 Res ults for this WITH DIFF RESULT AM PDT procedure a re in the results section. COMPLETE BLOOD COUNT Routine 04/23/2021 5:27 Res ults for this WITH DIFF AM PDT procedure are i n the results section. BASIC METABOLIC PANEL Routine 04/23/2021 5:27 Re sults for this AM PDT procedure are i n the results section. OXYGEN THERAPY STAT 04/22/2021 8:00 PM PDT POCT GLUCOSE Routine 04/22/2021 4:19 Results for this PM PDT procedure are i n the results section. BETA-HYDROXYBUTYRATE Routine 04/22/2021 4:16 Res ults for this PM PDT procedure are i n the results section. C. DIFFICILE TOXIN Routine 04/22/2021 4:16 Resul ts for this STOOL PCR W/REFLEX TO PM PDT proced ure are in AG-BASED EIA the results section. BASIC METABOLIC PANEL STAT 04/22/2021 4:16 Re sults for this PM PDT procedure are i n the results section. XR CHEST 1 VIEW Routine 04/22/2021 4:10 Results for this PM PDT procedure are i n the results section. CT HEAD WITHOUT Routine 04/22/2021 1:36 Results for this CONTRAST PM PDT procedure are i n the results section. CT ABDOMEN PELVIS Routine 04/22/2021 1:35 Result s for this WITHOUT CONTRAST PM PDT procedure a re in the results section. BLOOD GAS ARTERIAL Routine 04/22/2021 1:10 Resul ts for this PM PDT procedure are i n the results section. XR CHEST 1 VIEW Routine 04/22/2021 10:50 Results for this AM PDT procedure are i n the results section. POCT GLUCOSE Routine 04/22/2021 10:02 Results for this AM PDT procedure are i n the results section. BLOOD GAS ARTERIAL STAT 04/22/2021 9:45 Resul ts for this AM PDT procedure are i n the results section. LACTIC ACID Routine 04/22/2021 9:32 Results for this AM PDT procedure are i n the results section. COMPLETE BLOOD COUNT Routine 04/22/2021 8:50 Res ults for this WITH DIFF RESULT AM PDT procedure a re in the results section. MANUAL DIFFERENTIAL Routine 04/22/2021 8:50 Resu lts for this AM PDT procedure are i n the results section. COMPLETE BLOOD COUNT Routine 04/22/2021 8:50 Res ults for this WITH DIFF AM PDT procedure are i n the results section. B-TYPE NATRIURETIC Routine 04/22/2021 8:50 Resul ts for this PEPTIDE AM PDT procedure are i n the results section. OXYGEN THERAPY STAT 04/22/2021 8:00 AM PDT EXTRA TUBES Routine 04/22/2021 7:41 Results for this AM PDT procedure are i n the results section. LAVENDER TOP Routine 04/22/2021 7:41 Results for this AM PDT procedure are i n the results section. ACETONE (KETONES), Add-On 04/22/2021 7:22 Resul ts for this SERUM QUALITATIVE AM PDT procedure are in the results section. OSMOLALITY, SERUM Add-On 04/22/2021 7:22 Result s for this AM PDT procedure are i n the results section. COMPREHENSIVE METABOLIC Routine 04/22/2021 7:22 Results for this PANEL AM PDT procedure are i n the results section. POCT GLUCOSE Routine 04/22/2021 2:56 Results for this AM PDT procedure are i n the results section. XR CHEST 1 VIEW STAT 04/21/2021 11:38 Results for this PM PDT procedure are i n the results section. POCT GLUCOSE Routine 04/21/2021 8:40 Results for this PM PDT procedure are i n the results section. OXYGEN THERAPY STAT 04/21/2021 8:00 PM PDT POCT GLUCOSE Routine 04/21/2021 5:23 Results for this PM PDT procedure are i n the results section. POCT GLUCOSE Routine 04/21/2021 3:35 Results for this PM PDT procedure are i n the results section. POCT GLUCOSE Routine 04/21/2021 10:44 Results for this AM PDT procedure are i n the results section. COMPREHENSIVE METABOLIC Routine 04/21/2021 10:43 Results for this PANEL AM PDT procedure are i n the results section. OXYGEN THERAPY STAT 04/21/2021 8:00 AM PDT COMPLETE BLOOD COUNT Routine 04/21/2021 5:02 Res ults for this WITH DIFF RESULT AM PDT procedure a re in the results section. MANUAL DIFFERENTIAL Routine 04/21/2021 5:02 Resu lts for this AM PDT procedure are i n the results section. COMPLETE BLOOD COUNT Routine 04/21/2021 5:02 Res ults for this WITH DIFF AM PDT procedure are i n the results section. POCT GLUCOSE Routine 04/21/2021 3:39 Results for this AM PDT procedure are i n the results section. POCT GLUCOSE Routine 04/20/2021 10:09 Results for this PM PDT procedure are i n the results section. OXYGEN THERAPY STAT 04/20/2021 8:00 PM PDT XR CHEST 1 VIEW Routine 04/20/2021 6:57 Results for this PM PDT procedure are i n the results section. POCT GLUCOSE Routine 04/20/2021 4:00 Results for this PM PDT procedure are i n the results section. POCT GLUCOSE Routine 04/20/2021 8:12 Results for this AM PDT procedure are i n the results section. OXYGEN THERAPY STAT 04/20/2021 8:00 AM PDT COMPLETE BLOOD COUNT Routine 04/20/2021 5:22 Res ults for this WITH DIFF RESULT AM PDT procedure a re in the results section. COMPLETE BLOOD COUNT Routine 04/20/2021 5:22 Res ults for this WITH DIFF AM PDT procedure are i n the results section. COMPREHENSIVE METABOLIC Routine 04/20/2021 5:22 Results for this PANEL AM PDT procedure are i n the results section. POCT GLUCOSE Routine 04/20/2021 4:12 Results for this AM PDT procedure are i n the results section. POCT GLUCOSE Routine 04/19/2021 10:20 Results for this PM PDT procedure are i n the results section. OXYGEN THERAPY STAT 04/19/2021 8:00 PM PDT POCT GLUCOSE Routine 04/19/2021 3:37 Results for this PM PDT procedure are i n the results section. POCT GLUCOSE Routine 04/19/2021 11:58 Results for this AM PDT procedure are i n the results section. OXYGEN THERAPY STAT 04/19/2021 8:00 AM PDT POCT GLUCOSE Routine 04/19/2021 7:42 Results for this AM PDT procedure are i n the results section. POCT GLUCOSE Routine 04/19/2021 6:25 Results for this AM PDT procedure are i n the results section. COMPLETE BLOOD COUNT Routine 04/19/2021 5:11 Res ults for this AM PDT procedure are i n the results section. TROPONIN Timed 04/19/2021 5:11 Results for this AM PDT procedure are i n the results section. LACTIC ACID Timed 04/19/2021 5:11 Results for this AM PDT procedure are i n the results section. FERRITIN Routine 04/19/2021 5:11 Results for this AM PDT procedure are i n the results section. RENAL FUNCTION PANEL Routine 04/19/2021 5:11 Res ults for this AM PDT procedure are i n the results section. POCT GLUCOSE Routine 04/19/2021 3:14 Results for this AM PDT procedure are i n the results section. POCT GLUCOSE Routine 04/18/2021 8:44 Results for this PM PDT procedure are i n the results section. OXYGEN THERAPY STAT 04/18/2021 8:00 PM PDT POCT GLUCOSE Routine 04/18/2021 12:49 Results for this PM PDT procedure are i n the results section. MISCELLANEOUS LAB TEST Routine 04/18/2021 11:32 Pressure injur y of Results for this AM PDT skin of right procedure are in calf, unspecified the result s injury stage section. CULTURE, DEEP ABSCESS Routine 04/18/2021 11:31 Pressure injury of Results for this AEROBIC & ANAEROBIC AM PDT skin of right procedu re are in W/GRAM STAIN calf, unspecified the result s injury stage section. DEBRIDEMENT OF 04/18/2021 10:28 Pressure injury of SUBCUTANEOUS TISSUE, AM PDT skin of right INCLUDING EPIDERMIS AND calf, unspecified DERMIS, FIRST 20 SQUARE injury stage CMS OR LESS OXYGEN THERAPY STAT 04/18/2021 8:00 AM PDT POCT GLUCOSE Routine 04/18/2021 8:00 Results for this AM PDT procedure are i n the results section. POCT GLUCOSE Routine 04/18/2021 2:49 Results for this AM PDT procedure are i n the results section. POCT GLUCOSE Routine 04/17/2021 8:30 Results for this PM PDT procedure are i n the results section. OXYGEN THERAPY STAT 04/17/2021 8:00 PM PDT POCT GLUCOSE Routine 04/17/2021 6:07 Results for this PM PDT procedure are i n the results section. URINALYSIS (DIP ONLY) Routine 04/17/2021 12:51 Re sults for this PM PDT procedure are i n the results section. URINE MICROSCOPIC Routine 04/17/2021 12:51 Result s for this PM PDT procedure are i n the results section. URINALYSIS (DIP ONLY) Routine 04/17/2021 12:51 Re sults for this PM PDT procedure are i n the results section. CULTURE, URINE Routine 04/17/2021 12:51 Results f or this PM PDT procedure are i n the results section. POCT GLUCOSE Routine 04/17/2021 12:20 Results for this PM PDT procedure are i n the results section. CT KUB Routine 04/17/2021 8:14 Results for this AM PDT procedure are i n the results section. OXYGEN THERAPY STAT 04/17/2021 8:00 AM PDT OXYGEN THERAPY STAT 04/17/2021 8:00 AM PDT POCT GLUCOSE Routine 04/17/2021 7:26 Results for this AM PDT procedure are i n the results section. PREPARE/CROSSMATCH RBC STAT 04/17/2021 6:30 R esults for this AM PDT procedure are i n the results section. PROCALCITONIN Routine 04/17/2021 4:43 Results fo r this AM PDT procedure are i n the results section. COMPLETE BLOOD COUNT Routine 04/17/2021 4:43 Res ults for this WITH DIFF RESULT AM PDT procedure a re in the results section. COMPLETE BLOOD COUNT Routine 04/17/2021 4:43 Res ults for this WITH DIFF AM PDT procedure are i n the results section. COMPREHENSIVE METABOLIC Routine 04/17/2021 4:43 Results for this PANEL AM PDT procedure are i n the results section. HEMODIALYSIS INPATIENT Routine 04/17/2021 12:30 AM PDT POCT GLUCOSE Routine 04/16/2021 9:42 Results for this PM PDT procedure are i n the results section. OXYGEN THERAPY STAT 04/16/2021 8:00 PM PDT OXYGEN THERAPY STAT 04/16/2021 8:00 PM PDT SODIUM, URINE RANDOM Routine 04/16/2021 3:42 Res ults for this PM PDT procedure are i n the results section. CREATININE, URINE Routine 04/16/2021 3:42 Result s for this RANDOM PM PDT procedure are i n the results section. ECG 12-LEAD Routine 04/16/2021 3:32 Results for this PM PDT procedure are i n the results section. HEPATITIS B VIRUS Routine 04/16/2021 2:29 Result s for this SURFACE AB QUANT PM PDT procedure a re in the results section. HEMOGLOBIN AND Timed 04/16/2021 2:29 Results f or this HEMATOCRIT PM PDT procedure are i n the results section. HEPATITIS B VIRUS CORE Routine 04/16/2021 2:29 R esults for this AB PM PDT procedure are i n the results section. HEPATITIS B SURFACE Routine 04/16/2021 2:29 Resu lts for this ANTIGEN PM PDT procedure are i n the results section. TROPONIN Timed 04/16/2021 2:29 Results for this PM PDT procedure are i n the results section. POTASSIUM Timed 04/16/2021 2:29 Results for this PM PDT procedure are i n the results section. POCT GLUCOSE Routine 04/16/2021 1:29 Results for this PM PDT procedure are i n the results section. VITAMIN D 25-HYDROXY, Routine 04/16/2021 1:25 Re sults for this D2+D3 PM PDT procedure are i n the results section. PTH, INTACT Routine 04/16/2021 1:25 Results for this PM PDT procedure are i n the results section. XR CHEST 1 VIEW STAT 04/16/2021 12:20 Results for this PM PDT procedure are i n the results section. HEMODIALYSIS INPATIENT Routine 04/16/2021 9:58 AM PDT EXTRA TUBES Routine 04/16/2021 8:50 Results for this AM PDT procedure are i n the results section. COMPLETE BLOOD COUNT Add-On 04/16/2021 8:50 Res ults for this WITH DIFF RESULT AM PDT procedure a re in the results section. LAVENDER TOP Routine 04/16/2021 8:50 Results for this AM PDT procedure are i n the results section. COMPLETE BLOOD COUNT Add-On 04/16/2021 8:50 Res ults for this WITH DIFF AM PDT procedure are i n the results section. POCT GLUCOSE Routine 04/16/2021 8:47 Results for this AM PDT procedure are i n the results section. POTASSIUM Timed 04/16/2021 8:42 Results for this AM PDT procedure are i n the results section. BLOOD GAS VENOUS STAT 04/16/2021 7:00 Results for this AM PDT procedure are i n the results section. TRANSFUSE RED BLOOD STAT 04/16/2021 6:46 CELLS AM PDT PROCALCITONIN Routine 04/16/2021 6:35 Results fo r this AM PDT procedure are i n the results section. HEMOGLOBIN Routine 04/16/2021 6:35 Results for this AM PDT procedure are i n the results section. TROPONIN Timed 04/16/2021 6:35 Results for this AM PDT procedure are i n the results section. POTASSIUM Timed 04/16/2021 6:35 Results for this AM PDT procedure are i n the results section. PHOSPHORUS Add-On 04/16/2021 6:35 Results for this AM PDT procedure are i n the results section. LACTIC ACID Timed 04/16/2021 6:35 Results for this AM PDT procedure are i n the results section. IRON PROFILE STAT Add-on 04/16/2021 3:30 Results for this AM PDT procedure are i n the results section. PROCALCITONIN Routine 04/16/2021 3:30 Results fo r this AM PDT procedure are i n the results section. PARTIAL THROMBOPLASTIN Timed 04/16/2021 3:30 R esults for this TIME, ACTIVATED AM PDT procedure ar e in the results section. PROTHROMBIN TIME Routine 04/16/2021 3:30 Results for this AM PDT procedure are i n the results section. HEMOGLOBIN Routine 04/16/2021 3:30 Results for this AM PDT procedure are i n the results section. POTASSIUM Timed 04/16/2021 3:30 Results for this AM PDT procedure are i n the results section. LACTIC ACID STAT 04/16/2021 3:30 Results for this AM PDT procedure are i n the results section. OXYGEN THERAPY STAT 04/16/2021 2:50 AM PDT OXYGEN THERAPY STAT 04/16/2021 2:50 AM PDT POCT GLUCOSE Routine 04/16/2021 2:00 Results for this AM PDT procedure are i n the results section. OCCULT BLOOD, FECAL STAT 04/16/2021 1:40 Resu lts for this AM PDT procedure are i n the results section. TYPE AND SCREEN STAT 04/16/2021 1:29 Results for this AM PDT procedure are i n the results section. POCT GLUCOSE Routine 04/16/2021 1:22 Results for this AM PDT procedure are i n the results section. URINALYSIS (DIP ONLY) STAT 04/16/2021 12:38 Re sults for this AM PDT procedure are i n the results section. URINE MICROSCOPIC STAT 04/16/2021 12:38 Result s for this AM PDT procedure are i n the results section. URINALYSIS (DIP ONLY) STAT 04/16/2021 12:38 Re sults for this AM PDT procedure are i n the results section. CULTURE, URINE Routine 04/16/2021 12:38 Results f or this AM PDT procedure are i n the results section. OXYGEN THERAPY STAT 04/16/2021 12:26 AM PDT OXYGEN THERAPY STAT 04/16/2021 12:26 AM PDT OXYGEN THERAPY STAT 04/16/2021 12:26 AM PDT RESPIRATORY PCR PANEL STAT 04/15/2021 11:36 Re sults for this (INCLUDES SARS-COV-2 PM PDT procedu re are in (COVID-19)) the results section. THYROID STIMULATING STAT 04/15/2021 11:24 Resu lts for this HORMONE, REFLEX TO FREE PM PDT proc edure are in T4 the results section. IRON PROFILE Add-On 04/15/2021 11:24 Results for this PM PDT procedure are i n the results section. PROCALCITONIN STAT 04/15/2021 11:24 Results fo r this PM PDT procedure are i n the results section. COMPLETE BLOOD COUNT STAT 04/15/2021 11:24 Res ults for this WITH DIFF RESULT PM PDT procedure a re in the results section. COMPLETE BLOOD COUNT STAT 04/15/2021 11:24 Res ults for this WITH DIFF PM PDT procedure are i n the results section. MAGNESIUM STAT 04/15/2021 11:24 Results for this PM PDT procedure are i n the results section. LACTIC ACID STAT 04/15/2021 11:24 Results for this PM PDT procedure are i n the results section. HEMOGLOBIN A1C Add-On 04/15/2021 11:24 Results f or this PM PDT procedure are i n the results section. COMPREHENSIVE METABOLIC STAT 04/15/2021 11:24 Results for this PANEL PM PDT procedure are i n the results section. ABO/RH TYPE CHECK (LAB STAT 04/15/2021 11:23 R esults for this ONLY) PM PDT procedure are i n the results section. XR CHEST 1 VIEW STAT 04/15/2021 10:50 Results for this PM PDT procedure are i n the results section. CULTURE, BLOOD STAT 04/15/2021 10:45 Results f or this PM PDT procedure are i n the results section. CULTURE, BLOOD STAT 04/15/2021 10:45 Results f or this PM PDT procedure are i n the results section. ECG 12-LEAD STAT 04/15/2021 10:24 Results for this PM PDT procedure are i n the results section. ED CRITICAL CARE Routine 04/15/2021 10:04 Results for this PM PDT procedure are i n the results section. documented in this encounter Results POCT glucose (05/27/2021 12:21 PM PDT) POCT Glucose, 129 (A) 65 - 99 mg/dL [facility] POCT (CLIA [id number]) POCT Glucose Test Note: Reference [facility] Comment Ranges revised HOSPITAL POCT September 24, (CLIA [id number]) 2018. Specimen Blood - Capillary blood (substance) Performing Organization Address [facility] Phon e Number [facility] [address] [facility] A [id number] POCT (CLIA [id number]) Basic metabolic panel (05/27/2021 8:07 AM PDT) Pathologist Sig nature Sodium 134 134 - 144 [facility] mmol/L HOSPITAL LAB Potassium 4.5 3.5 - 5.2 [facility] mmol/L [facility] LAB Chloride 104 97 - 108 mmol/L [facility] CO2 18 18 - 29 mmol/L [facility] Anion Gap 12 (H) 3 - 11 mmol/L [facility] BUN 14.0 8.0 - 27.0 [facility] mg/dL [facility] LAB Creatinine 1.26 (H) 0.57 - 1.00 [facility] mg/dL [facility] LAB Glucose, Serum 71 65 - 99 mg/dL [facility] Calcium 8.1 (L) 8.5 - 10.1 [facility] mg/dL [facility] LAB eGFR (CKD-EPI) 42 (L) >60 (CKD-EPI) [facility] mL/min/1.73 m2 [facility] BUN/Creatinine Ratio 11.1 7.0 - 24.0 [facility] Specimen Blood - Venous blood (substance) Performing Organization Address [facility]/ZIP Code Phon e Number [facility] [address] A [phone] Complete blood count (05/27/2021 8:07 AM PDT) Pathologist Sig nature WBC Auto 8.5 3.8 - 10.1 x10e3/uL [facility] LAB RBC 4.05 3.90 - 5.20 x10e6/uL [facility] Hemoglobin 10.7 (L) 12.0 - 15.6 g/dL [facility] Hematocrit 34.6 (L) 35.0 - 46.0 % [facility] MCV 85 81 - 100 fL [facility] MCH 26.4 (L) 27.0 - 35.0 pg [facility] MCHC 30.9 (L) 32.0 - 37.0 g/dL [facility] RDW 19.7 (H) 12.3 - 15.4 % [facility] Platelets 223 150 - 400 x10e3/uL [facility] MPV 10.1 7.4 - 10.4 fL [facility] NRBC % 0 0 /100 WBCs [facility] Abs. NRBC 0.0 x10e3/uL [facility] Specimen Blood - Venous blood (substance) Performing Organization Address City/[facility] Phon e Number [facility] [address] A [phone] POCT glucose PRN (05/27/2021 7:47 AM PDT) POCT Glucose, 63 (A) 65 - 99 mg/dL [facility] POCT (CLIA [id number]) POCT Glucose Test Note: Reference [facility] Comment Ranges revised HOSPITAL POCT September 24 (CLIA [id number]) 2018. Specimen Blood - Capillary blood (substance) Performing Organization Address City/[facility] Phon e Number [facility] [address] A [phone] POCT (CLIA [id number]) POCT glucose PRN (05/26/2021 8:53 PM PDT) POCT Glucose, 97 65 - 99 mg/dL [facility] POCT (CLIA [id number]) POCT Glucose Test Note: Reference [facility] Comment Ranges revised HOSPITAL POCT September 24 (CLIA [id number]) 2018. Specimen Blood - Capillary blood (substance) Performing Organization Address City/[facility] Phon e Number [facility] [address] A [phone] POCT (CLIA [id number]) POCT glucose PRN (05/26/2021 8:52 PM PDT) POCT Glucose, 97 65 - 99 mg/dL [facility] POCT (CLIA [id number]) POCT Glucose Test Note: Reference [facility] Comment Ranges revised HOSPITAL POCT September 24 (CLIA [id number]) 2018. Specimen Blood - Capillary blood (substance) Performing Organization Address City/[facility] Phon e Number [facility] [address] A [address] POCT (CLIA [id number]) POCT glucose PRN (05/26/2021 4:45 PM PDT) POCT Glucose, 89 65 - 99 mg/dL [facility] POCT (CLIA [id number]) POCT Glucose Test Note: Reference [facility] Comment Ranges revised [facility] POCT September 24 (CLIA [id number]) 2018. Specimen Blood - Capillary blood (substance) Performing Organization Address [facility] Code Phon e Number [facility] [address] A [address] POCT (CLIA [id number]) POCT glucose PRN (05/26/2021 12:00 PM PDT) POCT Glucose, 89 65 - 99 mg/dL [facility] POCT (CLIA [id number]) POCT Glucose Test Note: Reference [facility] Comment Ranges revised HOSPITAL POCT September 24 (CLIA [id number]) 2018. Specimen Blood - Capillary blood (substance) Performing Organization Address City/[facility] Phon e Number [facility] [address] A [address] POCT (CLIA [id number]) POCT glucose PRN (05/26/2021 8:30 AM PDT) POCT Glucose, 89 65 - 99 mg/dL [facility] POCT (CLIA [id number]) POCT Glucose Test Note: Reference [facility] Comment Ranges revised HOSPITAL POCT September 24, (CLIA [id number]) 2018. Specimen Blood - Capillary blood (substance) Performing Organization Address City/[facility]/ZIP Code Phon e Number [facility] [address] [facility] [id number] POCT (CLIA [id number]) Magnesium (05/26/2021 5:23 AM PDT) Pathologist Sig nature Magnesium 1.5 (L) 1.6 - 2.6 mg/dL [facility] B Specimen Blood - Venous blood (substance) Performing Organization Address [facility] Code Phon e Number [facility] [address] [facility] [phone] Comprehensive Metabolic Panel (05/26/2021 5:23 AM PDT) Pathologist Sig nature Sodium 135 134 - 144 [facility] mmol/L [facility] Potassium 4.4 3.5 - 5.2 [facility] mmol/L [facility] Chloride 104 97 - 108 mmol/L [facility] CO2 22 18 - 29 mmol/L [facility] Anion Gap 9 3 - 11 mmol/L [facility] BUN 15.0 8.0 - 27.0 [facility] mg/dL [facility] Creatinine 1.33 (H) 0.57 - 1.00 [facility] mg/dL [facility] Glucose, Serum 95 65 - 99 mg/dL [facility] Calcium 8.3 (L) 8.5 - 10.1 [facility] mg/dL [facility] AST 14 0 - 50 U/L [facility] ALT 7 0 - 32 U/L [facility] Alkaline Phosphatase 78 25 - 165 U/L [facility] Total Protein 4.6 (L) 6.4 - 8.4 g/dL [facility] eGFR (CKD-EPI) 40 (L) >60 (CKD-EPI) [facility] mL/min/1.73 m2 [facility] Albumin 2.6 (L) 3.4 - 5.0 g/dL [facility] Bilirubin, Total 0.2 <=1.2 mg/dL [facility] BUN/Creatinine Ratio 11.3 7.0 - 24.0 [facility] Specimen Blood - Venous blood (substance) Performing Organization Address [facility] Phon e [facility] [address] [facility] A [phone] Complete blood count (05/26/2021 5:23 AM PDT) Pathologist Sig nature WBC Auto 7.3 3.8 - 10.1 x10e3/uL [facility]OS[facility] L LAB RBC 3.52 (L) 3.90 - 5.20 x10e6/uL [facility] Hemoglobin 9.1 (L) 12.0 - 15.6 g/dL [facility] Hematocrit 29.7 (L) 35.0 - 46.0 % [facility] MCV 84 81 - 100 fL [facility] MCH 25.9 (L) 27.0 - 35.0 pg [facility] MCHC 30.6 (L) 32.0 - 37.0 g/dL [facility] RDW 19.4 (H) 12.3 - 15.4 % [facility] Platelets 247 150 - 400 x10e3/uL [facility] MPV 10.4 7.4 - 10.4 fL [facility] NRBC % 0 0 /100 WBCs [facility] Abs. NRBC 0.0 x10e3/uL [facility] Specimen Blood - Venous blood (substance) Performing Organization Address [facility] Phon e [facility] [address] A [phone] POCT glucose PRN (05/25/2021 5:42 PM PDT) POCT Glucose, 229 (A) 65 - 99 mg/dL [facility] POCT (CLIA [id number]) POCT Glucose Test Note: Reference [facility] Comment Ranges revised HOSPITAL POCT September 24, (CLIA [id number]) 2018. Specimen Blood - Capillary blood (substance) Performing Organization Address [facility]/State/ZIP Code Phon e Number [facility] [address] A [address] POCT (CLIA [id number]) POCT glucose PRN (05/25/2021 11:42 AM PDT) POCT Glucose, 246 (A) 65 - 99 mg/dL [facility] POCT (CLIA [id number]) POCT Glucose Test Note: Reference [facility] Comment Ranges revised HOSPITAL POCT September 24, (CLIA [id number]) 2018. Specimen Blood - Capillary blood (substance) Performing Organization Address City/[facility]/ZIP Code Phon e Number [facility] [address] [facility] A [address] POCT (CLIA [id number]) POCT glucose PRN (05/25/2021 9:13 AM PDT) [facility] Signature POCT Glucose, 156 (A) 65 - 99 mg/dL [facility] POCT (CLIA [id number]) POCT Glucose Test Note: Reference [facility] Comment Ranges revised HOSPITAL POCT September 24 (CLIA [id number]) 2018. Specimen Blood - Capillary blood (substance) Performing Organization Address City/[facility]/ZIP Code Phon e Number [facility] [address] [facility] A [address] POCT (CLIA [id number]) Basic metabolic panel (05/25/2021 4:20 AM PDT) Pathologist Sig nature Sodium 133 (L) 134 - 144 [facility] mmol/L HOSPITAL LAB Potassium 4.7 3.5 - 5.2 [facility] mmol/L [facility]ITAL LAB Chloride 102 97 - 108 mmol/L [facility] CO2 24 18 - 29 mmol/L [facility] Anion Gap 7 3 - 11 mmol/L [facility] BUN 15.0 8.0 - 27.0 [facility] mg/dL [facility]ITAL LAB Creatinine 1.41 (H) 0.57 - 1.00 [facility] mg/dL [facility]ITAL LAB Glucose, Serum 186 (H) 65 - 99 mg/dL [facility] Calcium 8.3 (L) 8.5 - 10.1 [facility] mg/dL [facility]ITAL LAB eGFR (CKD-EPI) 37 (L) >60 (CKD-EPI) [facility] mL/min/1.73 m2 [facility]OS[facility]ITAL LAB BUN/Creatinine Ratio 10.6 7.0 - 24.0 [facility] Specimen Blood - Venous blood (substance) Performing Organization Address [facility] Phon [facility] [address] [facility] A [phone] Complete blood count (05/25/2021 4:20 AM PDT) Pathologist Sig nature WBC Auto 7.8 3.8 - 10.1 x10e3/uL [facility] L LAB RBC 3.60 (L) 3.90 - 5.20 x10e6/uL [facility] Hemoglobin 9.3 (L) 12.0 - 15.6 g/dL [facility] Hematocrit 30.7 (L) 35.0 - 46.0 % [facility] MCV 85 81 - 100 fL [facility] MCH 25.8 (L) 27.0 - 35.0 pg [facility] MCHC 30.3 (L) 32.0 - 37.0 g/dL [facility] RDW 19.3 (H) 12.3 - 15.4 % [facility] Platelets 255 150 - 400 x10e3/uL [facility] MPV 10.1 7.4 - 10.4 fL [facility] NRBC % 0 0 /100 WBCs [facility] Abs. NRBC 0.0 x10e3/uL [facility] Specimen Blood - Venous blood (substance) Performing Organization Address [facility] Phon [facility] [address] [place] [address] A [phone] POCT glucose PRN (05/24/2021 8:41 PM PDT) Pathologist [facility] POCT Glucose, 184 (A) 65 - 99 mg/dL [facility] POCT (CLIA [id number]) POCT Glucose Test Note: Reference [facility] Comment Ranges revised HOSPITAL POCT September 24 (CLIA [id number]) 2018. Specimen Blood - Capillary blood (substance) Performing Organization Address [facility] e [place] [id number] [facility] A [address] POCT (CLIA [id number]) POCT glucose (05/24/2021 5:01 PM PDT) POCT Glucose, 201 (A) 65 - 99 mg/dL [facility] POCT (CLIA [id number]) POCT Glucose Test Note: Reference [facility] Comment Ranges revised HOSPITAL POCT September 24 (CLIA [id number]) 2018. Specimen Blood - Capillary blood (substance) Performing Organization Address [facility]/[place] [address] A [address] POCT (CLIA [id number]) CK and CK-MB (05/24/2021 2:45 PM PDT) Pathologist Sig nature Total CK 26 21 - 215 U/L [facility] CK-MB Index 8.5 (H) 0.0 - 5.0 % [facility] CK-MB 2.2 <=5.3 ng/mL [facility] Specimen Blood - Venous blood (substance) Performing Organization Address [facility] [address] [facility] A [phone] Troponin (05/24/2021 2:45 PM PDT) Pathologist Sig nature Troponin T 0.071 (HC) <0.020 ug/L [facility] Comment: HOSPITAL LAB Note: Reference Ranges revised October 15, 2020 Note: Critical Value parameters revised October 15, 2020. Specimen Blood - Venous blood (substance) Performing Organization Address [facility] [address] [facility] A [address] POCT glucose (05/24/2021 12:35 PM PDT) POCT Glucose, 221 (A) 65 - 99 mg/dL [facility] POCT (CLIA [id number]) POCT Glucose Test Note: Reference [facility] Ranges revised HOSPITAL POCT September 24 (CLIA [id number]) 2018. Specimen Blood - Capillary blood (substance) Performing Organization Address [facility] Phon e [address] A [address] POCT (CLIA [id number]) POCT glucose (05/24/2021 8:23 AM PDT) Pathologist [facility] POCT Glucose, 160 (A) 65 - 99 mg/dL [facility] POCT (CLIA [id number]) POCT Glucose Test Note: Reference [facility] revised HOSPITAL POCT September 24 (CLIA [id number]) 2018. Specimen Blood - Capillary blood (substance) Performing Organization Address [facility] e [address] A [address] POCT (CLIA [id number]) CK and CK-MB (05/24/2021 7:01 AM PDT) Pathologist Sig nature Total CK 19 (L) 21 - 215 U/L [facility] CK-MB Index 11.6 (H) 0.0 - 5.0 % [facility] CK-MB 2.2 <=5.3 ng/mL [facility] Specimen Blood - Venous blood (substance) Performing Organization Address [facility] e [facility] LAB [address] [place] [address] A [address] Troponin (05/24/2021 7:01 AM PDT) Pathologist Sig nature Troponin T 0.078 (HC) <0.020 ug/L [facility] Comment: HOSPITAL LAB Note: Reference Ranges revised October 15, 2020 Note: Critical Value parameters revised October 15, 2020. Specimen Blood - Venous blood (substance) Performing Organization Address City/State/ZIP Code Phon e Number [facility] [address] [facility] [place] [address] Complete blood count with diff (05/24/2021 7:01 AM PDT) Pathologist Sig nature WBC Auto 7.0 3.8 - 10.1 [facility] x10e3/uL HOSPITAL LAB RBC 3.81 (L) 3.90 - 5.20 [facility] x10e6/uL [facility]OSPITAL LAB Hemoglobin 9.9 (L) 12.0 - 15.6 [facility] g/dL [facility] Hematocrit 32.3 (L) 35.0 - 46.0 % [facility] MCV 85 81 - 100 fL [facility] MCH 26.0 (L) 27.0 - 35.0 pg [facility] MCHC 30.7 (L) 32.0 - 37.0 [facility] g/dL [facility] RDW 19.1 (H) 12.3 - 15.4 % [facility] Platelets 260 150 - 400 [place] [id number]/[facility] LAB MPV 9.9 7.4 - 10.4 fL [facility] NRBC % 0 0 /100 WBCs [facility] Abs. NRBC 0.0 x10e3/uL [facility] % Neutrophils 56 % [facility] % Lymphocytes 30 % [facility] % Monocytes 9 % [facility] % Eosinophils 4 % [facility] % Basophils 0 % [facility] Abs. Neutrophils 3.9 1.6 - 6.9 [facility] x10e3/uL [facility] LAB Abs. Lymphocytes 2.1 1.1 - 4.8 [facility] x10e3/uL [facility] Abs. Monocytes 0.6 0.0 - 1.0 [facility] x10e3/uL HOSPITAL LAB Abs. Eosinophils 0.3 0.0 - 0.5 [facility] x10e3/uL [facility]OSPITAL LAB Abs. Basophils 0.0 0.0 - 0.4 [facility] x10e3/uL HOSPITAL LAB Abs. Neutrophils 3,900.0 1,600.0-6,900.0 [facility] (Auto) / HOSPITAL LAB Specimen Blood - Venous blood (substance) Performing Organization Address [facility] [address] [facility] A [phone] Basic metabolic panel (05/24/2021 7:01 AM PDT) Pathologist Sig nature Sodium 133 (L) 134 - 144 [facility] mmol/L [facility] LAB Potassium 4.1 3.5 - 5.2 [facility] mmol/L [facility] Chloride 100 97 - 108 mmol/L [facility] CO2 25 18 - 29 mmol/L [facility] Anion Gap 8 3 - 11 mmol/L [facility] BUN 12.0 8.0 - 27.0 [facility] mg/dL [facility] Creatinine 1.43 (H) 0.57 - 1.00 [facility] mg/dL [facility] Glucose, Serum 175 (H) 65 - 99 mg/dL [facility] Calcium 8.4 (L) 8.5 - 10.1 [facility] mg/dL [facility] eGFR (CKD-EPI) 36 (L) >60 (CKD-EPI) [facility] mL/min/1.73 m2 [facility] BUN/Creatinine Ratio 8.4 7.0 - 24.0 [facility] Specimen Blood - Venous blood (substance) Performing Organization Address [facility] [address] [facility] A [address] Magnesium (05/24/2021 7:01 AM PDT) Pathologist Sig nature Magnesium 2.0 1.6 - 2.6 mg/dL [facility] B Specimen Blood - Venous blood (substance) Performing Organization Address [facility] [address] [facility] A [phone] ECG 12 lead (05/24/2021 12:26 AM PDT) Pathologist Sig nature HR 61 bpm [facility] RR 984 ms [facility] DC 200 ms [facility] QRSD 98 ms [facility] QT 485 ms [facility] QTc 489 ms [facility] QRS -29 deg [facility] T 108 deg [facility] Impression - ABNORMAL ECG - [facility] Impression Sinus rhythm [facility] Impression Left anterior [facility] fascicular block Impression Abnrm T in lateral [facility] leads Specimen Narrative Performed At This result has an attachment that is no t available. Performing Organization Address City/State/ZIP Code Phon e Number [facility] [address] [place] [address] POCT glucose (05/23/2021 10:13 PM PDT) POCT Glucose, 273 (A) 65 - 99 mg/dL [facility] POCT (CLIA [id number]) POCT Glucose Test Note: Reference [facility] POCT September 24 (CLIA [id number]) 2018. Specimen Blood - Capillary blood (substance) Performing Organization Address City/[facility]/ZIP Code Phon e Number [facility] [address] [facility] A [address] POCT (CLIA [id number]) POCT glucose (05/23/2021 5:07 PM PDT) [facility] POCT Glucose, 211 (A) 65 - 99 mg/dL [facility] POCT (CLIA [id number]) POCT Glucose Test Note: Reference [facility] POCT September 24 (CLIA [id number]) 2018. Specimen Blood - Capillary blood (substance) Performing Organization Address City/[facility] Phon e Number [facility] [address] [facility] A [address] POCT (CLIA [id number]) POCT glucose (05/23/2021 11:31 AM PDT) POCT Glucose, 153 (A) 65 - 99 mg/dL [facility] POCT (CLIA [id number]) POCT Glucose Test Note: Reference [facility] Comment Ranges revised HOSPITAL POCT September 24, (CLIA [id number]) 2018. Specimen Blood - Capillary blood (substance) Performing Organization Address City/State/ZIP Code Phon e Number [facility] [address] [facility] [place] [address] POCT (CLIA [id number]) ECHOCARDIOGRAM LIMITED (05/23/2021 8:10 AM PDT) Specimen Narrative Performed At ? [facility] RADIOLOGY SYSTEM [place] + + ? Hospital ?+---------+ : ?: ?[address] ?: ? : : ?: ?[address] ?: ? : : ?: ?[place], ? : ? : : ?: ? [place] [id number] ?: ? : : ?: ?Phon e: 360- ?+-- -------+ + + ? [id number] ? Echocardiog epifanio Report + --- + :Name: SHIRIN AGUILLONN ?Study Date: 05/23/20 21 ?Height: 60 in ??: [id number] ? ReadingLocation: ?Weight: 164 lb : : ?Gender: Female ?BSA: 1. 7 m2 ?: :: 1945 ? Age: 75 yrs ? BP: 127/81 mmHg: :Reason For Study: Atrial fibrillation RVR, hypotensio n ? : :Ordering Physician: KILCREASE, ? : :DENISE ? Performed By : Carli Vasquez ? : :Referring: Red Hospitalist ? : + --- + Interpretation Summary The left ventricle is normal in size and wall thickness. The ejection fraction is estimated to be 50-55%. In some of the apical views, there is subtle mid anter ior wall hypokinesis without any significant change from the previous study. The IVC is of normal diameter and collapses greater th an 50% with a sniff. This suggests a low right atrial pressur e of 3 mm Hg. Procedure: ?? A two-dimensional transthoracic echocardiogram with color flow and Doppler was performed in limited views only to ass ess left ventricular wall motion and ejection fraction. The study quality w as technically adequate. Comparison is made with the echocardiogram of 1 (limited). The patient was in normal sinus rhythm during the ex am. Left Ventricle: ?? The left ventricle is normal in siz e and wall thickness. There is no thrombus. The ejection fraction is estimat ed to be 50-55%. In some of the apical views, there is subtle mid anterior wall hypokinesis without any significant change from the previous olena dy. MV E/A: 0.55 Med Peak E' Ron: 3.9 cm/sec E/E' med: 15.2. Atria: ?? The left atrium is mildly dila kenyon. Tricuspid Valve: ?? Pulmonary artery pressures cannot be estimated because of the lack of a measurable TR jet velocity but the IVC suggests a CVP of around 3 mmHg. Great Vessels: ?? The IVC is of normal diameter and collapses greater than 50% with a sniff. This suggests a low right atrial pressur e of 3 mm Hg. Pericardium/ Pleura ?? There is an anterior echo-free space consistent with a fat pad. MMode/2D Measurements & Calculations LVIDd: 4.0 cm ?LA A2 area: 24.3 cm2 LVIDs: 2.9 cm ?LA A4 area: 17.3 cm2 IVSd: 0.87 cm ?LA length (vol): 5.2 cm LVPWd: 0.85 cm ? LA vol: 68.0 ml LV bai. diameter/BSA (cm/m^2): 2.3 ?L A vol index: 39.6 ml/m2 LV sys. diameter/BSA (cm/m^2): 1.7 FS: 28.3 % ? ___ IVC diam: 1.6 cm Doppler Measurements & Calculations MV E max ron: 58.7 cm/sec ? M V dec time: 0.32 sec MV A max ron: 106.0 cm/sec MV E/A: 0.55 Med Peak E' Ron: 3.9 cm/sec E/E' med: 15.2 Lat Peak E' Ron: 4.9 cm/sec E/E' lat: 12.0 E/e' average: 13.6 ___ ? Reading Physician:09:41 AM Procedure Note Interface, Radiology Results In - 2020 9:41 AM PDT [place] + + Hospi jossue +---------+ : : [address] : : : : [address]. : : : : [place], : : : : [place] [address] : : : : Phone: [phone] Echocardiog epifanio Report + + :Name: SHIRIN AGUILLON Study Margarito e: 05/23/2021 Height: 60 in : :[facility] ReadingLo cation: Weight: 164 lb : : Gender: F emale BSA: 1.7 m2 : :: 1945 Age: 75 y rs BP: 127/81 mmHg: :Reason For Study: Atrial fibrillation R VR, hypotension : :Ordering Physician: ALEJO, : :DENISE Performed By: Carli Vasquez : :Referring: Red Hospitalist : + + Interpretation Summary The left ventricle is normal in size and wall thickness. The ejection fraction is estimated to be 50-55%. In some of the apical views, there is hinojosa btle mid anterior wall hypokinesis without any significant change from the previous study. The IVC is of normal diameter and collap ses greater than 50% with a sniff. This suggests a low right atrial pressur e of 3 mm Hg. Procedure: A two-dimensional transthor acic echocardiogram with color flow and Doppler was performed in [facility] to assess left ventricular wall motion and ejection fraction. The [facility] quality was technically adequate. Comparison is made with the echocardiogr am of 05/16/2021 ([facility]). The patient was in normal sinus rhythm during the ex am. Left Ventricle: The left ventricle is normal in size and wall thickness. There is no thrombus. The ejection fract ion is estimated to be 50-55%. In some of the apical views, there is subtle mid anterior wall hypokinesis without any significant change from the previous olena dy. MV E/A: 0.55 Med Peak E' Ron: 3.9 cm/sec E/E' med: 15.2. Atria: The left atrium is mildly dilat ed. Tricuspid Valve: Pulmonary artery pres sures cannot be estimated because of the lack of a measurable TR jet velocity but the IVC suggests a CVP of around 3 mmHg. Great Vessels: The IVC is of normal di ameter and collapses greater than 50% with a sniff. This suggests a low right atrial pressure of 3 mm Hg. Pericardium/ Pleura There is an anteri or echo-free space consistent with a fat pad. MMode/2D Measurements & Calculations LVIDd: 4.0 cm LA A2 area: 24.3 cm2 LVIDs: 2.9 cm LA A4 area: 17.3 cm2 IVSd: 0.87 cm LA length (vol): 5.2 cm LVPWd: 0.85 cm LA vol: 68.0 ml LV bai. diameter/BSA (cm/m^2): 2.3 LA vol index: 39.6 ml/m2 LV sys. diameter/BSA (cm/m^2): 1.7 FS: 28.3 % IVC diam: 1.6 cm Doppler Measurements & Calculations MV E max ron: 58.7 cm/sec MV dec time: 0.32 sec MV A max ron: 106.0 cm/sec MV E/A: 0.55 Med Peak E' Ron: 3.9 cm/sec E/E' med: 15.2 Lat Peak E' Ron: 4.9 cm/sec E/E' lat: 12.0 E/e' average: 13.6 Reading Physician:09:41 AM Performing Organization Address City/State/ZIP Code Phon e Number [facility] [address] [place] [address] POCT glucose (05/23/2021 8:08 AM PDT) POCT Glucose, 162 (A) 65 - 99 mg/dL [facility] POCT (CLIA [id number]) POCT Glucose Test Note: Reference [facility] Comment Ranges revised HOSPITAL POCT September 24, (CLIA [id number]) 2018. Specimen Blood - Capillary blood (substance) Performing Organization Address City/State/ZIP Code Phon e Number [facility] [address] [facility] [place] [address] POCT (CLIA [id number]) Complete blood count with diff (05/23/2021 4:54 AM PDT) [facility] nature WBC Auto 7.1 3.8 - 10.1 [facility] x10e3/uL HOSPITAL LAB RBC 3.78 (L) 3.90 - 5.20 [facility] x10e6/uL [facility]OSPITAL LAB Hemoglobin 9.7 (L) 12.0 - 15.6 [facility] g/dL HOSPITAL LAB Hematocrit 31.9 (L) 35.0 - 46.0 % [facility] MCV 84 81 - 100 fL [facility] MCH 25.7 (L) 27.0 - 35.0 pg [facility] MCHC 30.4 (L) 32.0 - 37.0 [facility] g/dL [facility] RDW 19.0 (H) 12.3 - 15.4 % [facility] Platelets 276 150 - 400 [facility] x10e3/uL [facility] MPV 10.1 7.4 - 10.4 fL [facility] NRBC % 0 0 /100 WBCs [facility] Abs. NRBC 0.0 x10e3/uL [facility] % Neutrophils 58 % [facility] % Lymphocytes 29 % [facility] % Monocytes 8 % [facility] % Eosinophils 4 % [facility] % Basophils 0 % [facility] Abs. Neutrophils 4.1 1.6 - 6.9 [facility] x10e3/uL HOSPITAL LAB Abs. Lymphocytes 2.1 1.1 - 4.8 [facility] x10e3/uL HOSPITAL LAB Abs. Monocytes 0.6 0.0 - 1.0 [facility] x10e3/uL HOSPITAL LAB Abs. Eosinophils 0.3 0.0 - 0.5 [facility] x10e3/uL [facility] Abs. Basophils 0.0 0.0 - 0.4 [facility] x10e3/uL HOSPITAL LAB Abs. Neutrophils 4,100.0 1,600.0-6,900.0 [facility] (Auto) /uL HOSPITAL LAB Specimen Blood - Venous blood (substance) Performing Organization Address [facility]/ZIP Code Phon e Number [facility] [address] [facility] [address] [address] Magnesium (05/23/2021 4:54 AM PDT) Pathologist Sig nature Magnesium 1.9 1.6 - 2.6 mg/dL [facility] LA B Specimen Blood - Venous blood (substance) Performing Organization Address [facility]/ZIP [facility] Phon e Number [facility] [address] [facility] [address] [address] Comprehensive Metabolic Panel (05/23/2021 4:54 AM PDT) Pathologist Sig nature Sodium 132 (L) 134 - 144 [facility] mmol/L [facility] Potassium 4.2 3.5 - 5.2 [facility] mmol/L [facility] Chloride 100 97 - 108 mmol/L [facility] CO2 25 18 - 29 mmol/L [facility] Anion Gap 7 3 - 11 mmol/L [facility] BUN 13.0 8.0 - 27.0 [facility] mg/dL [facility] Creatinine 1.43 (H) 0.57 - 1.00 [facility] mg/dL [facility] Glucose, Serum 182 (H) 65 - 99 mg/dL [facility] Calcium 8.3 (L) 8.5 - 10.1 [facility] mg/dL [facility] AST 11 0 - 50 U/L [facility] ALT 6 0 - 32 U/L [facility] Alkaline Phosphatase 86 25 - 165 U/L [facility] Total Protein 4.9 (L) 6.4 - 8.4 g/dL [facility] eGFR (CKD-EPI) 36 (L) >60 (CKD-EPI) [facility] mL/min/1.73 m2 [facility] Albumin 2.5 (L) 3.4 - 5.0 g/dL [facility] Bilirubin, Total 0.2 <=1.2 mg/dL [facility] BUN/Creatinine Ratio 9.1 7.0 - 24.0 [facility] Specimen Blood - Venous blood (substance) Performing Organization Address [facility] Phon e Number [facility] [address] [facility] A [id number] POCT glucose (05/22/2021 7:57 PM PDT) POCT Glucose, 191 (A) 65 - 99 mg/dL [facility] POCT (CLIA [id number]) POCT Glucose Test Note: Reference [facility] Comment Ranges revised HOSPITAL POCT September 24, (CLIA [id number]) 2018. Specimen Blood - Capillary blood (substance) Performing Organization Address [facility] e Number [facility] [address] [facility] A [address] POCT (CLIA [id number]) POCT glucose (05/22/2021 4:48 PM PDT) Pathologist [facility] POCT Glucose, 175 (A) 65 - 99 mg/dL [facility] POCT (CLIA [id number]) POCT Glucose Test Note: Reference [facility] Comment Ranges revised HOSPITAL POCT September 24 (CLIA [id number]) 2018. Specimen Blood - Capillary blood (substance) Performing Organization Address [facility] Phon e Number [facility] [address] [facility] A [address] POCT (CLIA [id number]) ECG 12 lead (05/22/2021 2:28 PM PDT) Pathologist Sig nature HR 105 bpm [facility] RR 572 ms [facility] DC 204 ms [facility] QRSD 83 ms [facility] QT 362 ms [facility] QTc 479 ms [facility] QRS -34 deg [facility] T 100 deg [facility] Impression - ABNORMAL ECG - [facility] Impression Sinus rhythm with runs [facility] of atrial tachycardia SYSTEM Impression T wave inversions in [facility] the anteroseptal leads SYSTEM Specimen Narrative Performed At This result has an attachment that is no t available. Performing Organization Address City/[facility]/ZIP Code Phon e Number [facility] [address] [place] [address] POCT glucose PRN (05/22/2021 11:59 AM PDT) POCT Glucose, 175 (A) 65 - 99 mg/dL [facility] POCT (CLIA [id number]) POCT Glucose Test Note: Reference [facility] Comment Ranges revised HOSPITAL POCT September 24, (CLIA [id number]) 2018. Specimen Blood - Capillary blood (substance) Performing Organization Address [facility] Phon e Number [facility] [address] [facility] [address] POCT (CLIA [id number]) Hepatic function panel (05/22/2021 6:59 AM PDT) Pathologist Sig nature Albumin 2.8 (L) 3.4 - 5.0 g/dL [facility] Bilirubin, Total <0.2 <=1.2 mg/dL [facility] Bilirubin, Direct <0.2 <=0.3 mg/dL [facility] Alkaline Phosphatase 82 25 - 165 U/L [facility] AST 17 0 - 50 U/L [facility] ALT 9 0 - 32 U/L [facility] Total Protein 5.1 (L) 6.4 - 8.4 g/dL [facility] Specimen Blood - Venous blood (substance) Performing Organization Address [facility] Phon e Number [facility] [address] [facility] A [phone] Thyroid stimulating hormone (05/22/2021 6:59 AM PDT) Pathologist Sig nature TSH 10.030 (H) 0.450 - 4.500 [facility] Comment: uIU/mL HOSPITAL LAB Thyroid function test result s of women differ from those of non- women. Reference Ranges for : First trimester ?0.100-2.500 uIU/mL Second trimester ? 0.200-3.000 uIU/mL Third trimester ?0.300-3.000 uIU/mL Non- adult ?? 0.450-4.500 uIU/mL Specimen Blood - Venous blood (substance) Performing Organization Address City/State/ZIP Code Phon e Number [facility] [address] [facility] [address] [address] Magnesium (05/22/2021 6:59 AM PDT) Pathologist Sig nature Magnesium 1.9 1.6 - 2.6 mg/dL [facility] LA B Specimen Blood - Venous blood (substance) Performing Organization Address City/[facility]/ZIP Code Phon e Number [facility] [address] [facility] A [address] Complete blood count with diff (05/22/2021 6:59 AM PDT) Pathologist Sig nature WBC Auto 8.5 3.8 - 10.1 [facility] x10e3/uL [facility] RBC 4.08 3.90 - 5.20 [facility] x10e6/uL [facility] Hemoglobin 10.4 (L) 12.0 - 15.6 [facility] g/dL [facility] Hematocrit 34.2 (L) 35.0 - 46.0 % [facility] MCV 84 81 - 100 fL [facility] MCH 25.5 (L) 27.0 - 35.0 pg [facility] MCHC 30.4 (L) 32.0 - 37.0 [facility] g/dL [facility] RDW 18.7 (H) 12.3 - 15.4 % [facility] Platelets 297 150 - 400 [facility] x10e3/uL [facility] MPV 10.3 7.4 - 10.4 [facility] LAB NRBC % 0 0 /100 WBCs [facility] Abs. NRBC 0.0 x10e3/uL [facility] % Neutrophils 59 % [facility] % Lymphocytes 29 % [facility] % Monocytes 7 % [facility] % Eosinophils 4 % [facility] % Basophils 0 % [facility] Abs. Neutrophils 5.0 1.6 - 6.9 [facility] x10e3/uL [facility] Abs. Lymphocytes 2.5 1.1 - 4.8 [facility] x10e3/uL [facility]OSPITAL LAB Abs. Monocytes 0.6 0.0 - 1.0 [facility] x10e3/uL [facility]OSPITAL LAB Abs. Eosinophils 0.3 0.0 - 0.5 [facility] x10e3/uL HOSPITAL LAB Abs. Basophils 0.0 0.0 - 0.4 [facility] x10e3/uL [facility]OSPITAL LAB Abs. Neutrophils 5,000.0 1,600.0-6,900.0 [facility] (Auto) / HOSPITAL LAB Specimen Blood - Venous blood (substance) Performing Organization Address [facility] Phon e [facility] [address] [facility] A [address] Basic metabolic panel (05/22/2021 6:59 AM PDT) Pathologist Sig nature Sodium 134 134 - 144 [facility] mmol/L [facility] Potassium 4.6 3.5 - 5.2 [facility] mmol/L [facility] Chloride 101 97 - 108 mmol/L [facility] CO2 25 18 - 29 mmol/L [facility] Anion Gap 8 3 - 11 mmol/L [facility] BUN 15.0 8.0 - 27.0 [facility] mg/dL [facility] Creatinine 1.49 (H) 0.57 - 1.00 [facility] mg/dL [facility] Glucose, Serum 110 (H) 65 - 99 mg/dL [facility] Calcium 8.4 (L) 8.5 - 10.1 [facility] mg/dL [facility] eGFR (CKD-EPI) 35 (L) >60 (CKD-EPI) [facility] mL/min/1.73 m2 [facility] BUN/Creatinine Ratio 10.1 7.0 - 24.0 [facility] Specimen Blood - Venous blood (substance) Performing Organization Address [facility] Phon e [facility] [address] [facility] A [address] ECG 12 lead (05/21/2021 1:29 AM PDT) HR 114 bpm [facility] RR 528 ms [facility] DC [facility] QRSD 97 ms [facility] QT 394 ms [facility] QTc 542 ms [facility] QRS -36 deg [facility] T 130 deg [facility] Impression - ABNORMAL ECG - [facility] Impression Poor quality data, [facility] interpretation may be SYSTEM affected Impression Probable sinus rhythm [facility] with nonconducted PACs. SYSTEM Suggest repeat EKG with better baseline. Impression Left axis deviation [facility] Impression Left anterior fascicular [facility] block SYSTEM Impression Abnrm T, probable [facility] ischemia, anterolateral SYSTEM lds Impression Prolonged QT interval [facility] Impression When compared with ECG [facility] of 21-May-2021 00:45:14, SYSTEM Specimen Narrative Performed At This result has an attachment that is no t available. Performing Organization Address City/State/ZIP Code Phon e Number [facility] [address] [place] [address] Creatine Kinase MB (05/21/2021 1:16 AM PDT) Pathologist Sig [facility] CK-MB 1.9 <=5.3 ng/mL [facility] Specimen Blood - Venous blood (substance) Performing Organization Address [facility] [address] [facility] [phone] Magnesium (05/21/2021 1:16 AM PDT) Pathologist Sig [facility] Magnesium 2.1 1.6 - 2.6 mg/dL [facility] LA B Specimen Blood - Venous blood (substance) Performing Organization Address [facility] [address] [facility] A [phone] Basic metabolic panel (05/21/2021 1:16 AM PDT) Pathologist Sig [facility] Sodium 131 (L) 134 - 144 [facility] mmol/L [facility] Potassium 4.7 3.5 - 5.2 [facility] mmol/L [facility] Chloride 101 97 - 108 mmol/L [facility] CO2 24 18 - 29 mmol/L [facility] Anion Gap 6 3 - 11 mmol/L [facility] BUN 16.0 8.0 - 27.0 [facility] mg/dL [facility]ITAL LAB Creatinine 1.41 (H) 0.57 - 1.00 [facility] mg/dL [facility] LAB Glucose, Serum 159 (H) 65 - 99 mg/dL [facility] Calcium 8.2 (L) 8.5 - 10.1 [facility] mg/dL [facility]ITAL LAB eGFR (CKD-EPI) 37 (L) >60 (CKD-EPI) [facility] mL/min/1.73 m2 [facility]OS[facility]ITAL LAB BUN/Creatinine Ratio 11.3 7.0 - 24.0 [facility] Specimen Blood - Venous blood (substance) Performing Organization Address [facility] [address] Troponin (05/21/2021 1:16 AM PDT) Pathologist Sig nature Troponin T 0.069 (HC) <0.020 ug/L [facility] Comment: HOSPITAL LAB Note: Reference Ranges revised October 15, 2020 Note: Critical Value parameters revised October 15, 2020. Specimen Blood - Venous blood (substance) Performing Organization Address [facility] A [address] Complete blood count with diff (05/21/2021 1:16 AM PDT) Pathologist Sig nature WBC Auto 9.4 3.8 - 10.1 [facility] x10e3/uL [facility] RBC 4.10 3.90 - 5.20 [facility] x10e6/uL [facility] Hemoglobin 10.6 (L) 12.0 - 15.6 [facility] g/dL [facility] Hematocrit 34.0 (L) 35.0 - 46.0 % [facility] MCV 83 81 - 100 fL [facility] MCH 25.9 (L) 27.0 - 35.0 pg [facility] MCHC 31.2 (L) 32.0 - 37.0 [facility] g/dL [facility] RDW 18.6 (H) 12.3 - 15.4 % [facility] Platelets 297 150 - 400 [facility] x10e3/uL [facility] MPV 10.1 7.4 - 10.4 fL [facility] NRBC % 0 0 /100 WBCs [facility] Abs. NRBC 0.0 x10e3/uL [facility] % Neutrophils 63 % [facility] % Lymphocytes 27 % [facility] % Monocytes 7 % [facility] % Eosinophils 2 % [facility] % Basophils 0 % [facility] Abs. Neutrophils 5.9 1.6 - 6.9 [facility] x10e3/uL HOSPITAL LAB Abs. Lymphocytes 2.5 1.1 - 4.8 [facility] x10e3/uL [facility]OSPITAL LAB Abs. Monocytes 0.7 0.0 - 1.0 [facility] x10e3/uL [facility]OSPITAL LAB Abs. Eosinophils 0.2 0.0 - 0.5 [facility] x10e3/uL [facility]OSPITAL LAB Abs. Basophils 0.0 0.0 - 0.4 [facility] x10e3/uL [facility] Abs. Neutrophils 5,900.0 1,600.0-6,900.0 [facility] (Auto) /[facility] LAB Specimen Blood - Venous blood (substance) Performing Organization Address City/State/ZIP Code Phon e Number [facility] [address] [place] [address] ECG 12 lead (05/21/2021 12:45 AM PDT) Pathologist Sig nature HR 143 bpm [facility] RR 420 ms [facility] DC [facility] QRSD 76 ms [facility] QT 314 ms [facility] QTc 485 ms [facility] QRS -45 deg [facility] T 95 deg [facility] Impression - ABNORMAL ECG - [facility] Impression Junctional tachycardia [facility] SYS TEM vs long RP SVT Impression Left axis deviation [facility] Impression Abnormal T, consider [facility] SYSTE M ischemia, anterior leads Impression When compared with ECG [facility] SYS TEM of 17-May-2021 16:13:47, Impression Significant change in [facility] SYST EM rhythm: previously sinus Specimen Narrative Performed At This result has an attachment that is no t available. Performing Organization Address City/State/ZIP Code Phon e Number [facility] [address] [place] [address] POCT glucose PRN (05/20/2021 7:12 PM PDT) POCT Glucose, 148 (A) 65 - 99 mg/dL [facility] POCT (CLIA [id number]) POCT Glucose Test Note: Reference [facility] Comment Ranges revised HOSPITAL POCT September 24, (CLIA [id number]) 2018. Specimen Blood - Capillary blood (substance) Performing Organization Address City/State/ZIP Code Phon e Number [facility] [address] [facility] [place] [address] POCT (CLIA [id number]) Surgical Pathology (05/20/2021 5:54 PM PDT) Pathology Final SEE DETAILS [facility] Diagnosis Comment: PATHOLOGY Patient: SHIRIN AGUILLON Case: [id number] Result ID: [id number] Ordering Provider: MOHSEN FAIR MD Collected Date: 05/20/21 Clinical History: ? Dysphagia. ? FINAL DIAGNOSIS ? 1. ?ANTRUM, BIOPSIES: ? A. Mild patchy chr onic gastritis. ? B. No neutrophilic inflammation and no Helicobacter (routine stain). ? C. No metaplasia, dysplasia, or carcinoma identified. ? 2. ?GASTRIC, BIOPSIES: ? A. Minimal chronic gastritis with erosion. ? B. No neutrophilic inflammation and no Helicobacter (routine stain). ? C. No metaplasia, dysplasia, or carcinoma identified. ? 3. ?DISTAL ESOPHAGUS, B IOPSIES: ? A. Squamous mucosa with mild inflammation and reactive changes suggestive of reflux. ? B. Negative for eo sinophilic esophagitis and goblet cell metaplasia. ? 4. ?MID ESOPHAGUS, BIOP SIES: ? A. Squamous mucosa with no diagnostic alterations. ? B. Negative for eo sinophilic inflammation and goblet cell metaplasia. ?Razia Hurtado MD ?Pathologist ?07/23/21 12:06 ? GROSS DESCRIPTION: ? 1. ?Received in formali n are four containers all labeled Shirin Aguillon . ? Designated antrum are two tissue fragments ranging from 0.1-0.4 cm. ? 2. ?Designated gastric biopsy are three tissue fragments ranging from 0.1-0.3 cm. ? 3. ?Designated esophag us, distal are two tissue fragments ranging from 0.1-0.5 cm. ? 4. ?Designated esophag us, mid are two tissue fragments ranging from 0.1- 0.3 cm. (WJR/hv) ? MICROSCOPIC DESCRIPTION ? 1.-4. In compliance with S regulations, the pathologist s signature on this report indicates that the case has been ? personally reviewe d by the pathologist. Microscopic examination was used to arrive at the diagnosis unless ? indicated otherwis e. (JOSE MANUEL/kk) ? [facility] PS ??[phone] [address] - ??CLIA: [id number] ? End of Report ? Specimen Tissue - Specimen from stomach (specimen ) Tissue specimen (specimen) - Stomach str ucture (body structure) Tissue specimen (specimen) - Specimen fr om esophagus (specimen) Tissue specimen (specimen) - Structure o f middle third of esophagus (body structure) Performing Organization Address City/State/ZIP Code Phon e Number [facility] [address] [place], [place] [address] 100 POCT glucose PRN (05/20/2021 10:07 AM PDT) POCT Glucose, 106 (A) 65 - 99 mg/dL [facility] POCT (CLIA [id number]) POCT Glucose Test Note: Reference [facility] Comment Ranges revised HOSPITAL POCT September 24, (CLIA [id number]) 2018. Specimen Blood - Capillary blood (substance) Performing Organization Address [facility] Phon e Number [facility] [address] [facility] A [phone] POCT (CLIA [id number]) Prepare/Crossmatch RBC: 1 Units (05/20/2021 6:30 AM PDT) Product Blood Type [address] [facility] BLOOD BANK Unit Number [id number] [facility] Dispense Status Transfused [facility] Product Identification Red Blood Cells [facility] Product Code [id number] [facility]OD [facility] Product Blood Type O Neg [facility] (Readable) [facility] BLOOD BANK Issue Date/Time [id number] [facility] BLOOD [facility]ANK Specimen Blood - Venous blood (substance) Performing Organization Address [facility]/[place] [address] [place], [place] [address] BLOOD BANK Magnesium (05/20/2021 5:44 AM PDT) Pathologist Sig nature Magnesium 1.6 1.6 - 2.6 mg/dL [facility] LA B Specimen Blood - Venous blood (substance) Performing Organization Address [facility] [address] [facility] A [id number] Complete blood count with diff (05/20/2021 5:44 AM PDT) Pathologist Sig nature WBC Auto 7.4 3.8 - 10.1 [facility] x10e3/uL HOSPITAL LAB RBC 3.62 (L) 3.90 - 5.20 [facility] x10e6/uL HOSPITAL LAB Hemoglobin 9.2 (L) 12.0 - 15.6 [facility] g/dL HOSPITAL LAB Hematocrit 29.8 (L) 35.0 - 46.0 % [facility] LAB MCV 82 81 - 100 fL [facility] LAB MCH 25.4 (L) 27.0 - 35.0 pg [facility] LAB MCHC 30.9 (L) 32.0 - 37.0 [facility] g/dL [facility] LAB RDW 18.4 (H) 12.3 - 15.4 % [facility] LAB Platelets 225 150 - 400 [facility] x10e3/uL [facility] LAB MPV 10.0 7.4 - 10.4 fL [facility] LAB NRBC % 0 0 /100 WBCs [facility] LAB Abs. NRBC 0.0 x10e3/uL [facility] LAB % Neutrophils 55 % [facility] LAB % Lymphocytes 33 % [facility] LAB % Monocytes 8 % [facility] LAB % Eosinophils 3 % [facility] LAB % Basophils 0 % [facility] LAB Abs. Neutrophils 4.1 1.6 - 6.9 [facility] x10e3/uL [facility] LAB Abs. Lymphocytes 2.4 1.1 - 4.8 [facility] x10e3/uL [facility] LAB Abs. Monocytes 0.6 0.0 - 1.0 [facility] x10e3/uL [facility] LAB Abs. Eosinophils 0.2 0.0 - 0.5 [place] [id number]/uL [facility] LAB Abs. Basophils 0.0 0.0 - 0.4 [place] [id number]/uL [facility] LAB Abs. Neutrophils 4,100.0 1,600.0-6,900.0 [facility] (Auto) /uL [facility] LAB Specimen Blood - Venous blood (substance) Performing Organization Address City/State/ZIP Code Phon e Number [facility] LAB [facility] [phone] Basic metabolic panel (05/20/2021 5:44 AM PDT) Pathologist Sig nature Sodium 135 134 - 144 [facility] mmol/L [facility] LAB Potassium 4.6 3.5 - 5.2 [facility] mmol/L [facility] LAB Chloride 102 97 - 108 mmol/L [facility] LAB CO2 26 18 - 29 mmol/L [facility] LAB Anion Gap 7 3 - 11 mmol/L [facility] LAB BUN 18.0 8.0 - 27.0 [facility] mg/dL [facility]OSPITAL LAB Creatinine 1.40 (H) 0.57 - 1.00 [facility] mg/dL [facility]OS[facility]ITAL LAB Glucose, Serum 118 (H) 65 - 99 mg/dL [facility] LAB Calcium 8.4 (L) 8.5 - 10.1 [facility] mg/dL [facility]OSPITAL LAB eGFR (CKD-EPI) 37 (L) >60 (CKD-EPI) [facility] mL/min/1.73 m2 [facility]OSPITAL LAB BUN/Creatinine Ratio 12.9 7.0 - 24.0 [facility] LAB Specimen Blood - Venous blood (substance) Performing Organization Address [facility] [address] [facility] A [address] Prothrombin time/INR (05/20/2021 5:44 AM PDT) Prothrombin Time 14.0 11.9 - 15.0 [facility] LAB INR 1.1 0.8 - 1.2 [facility] Comment: HOSPITAL LAB Therapeutic Ranges: Low intensity therapy ? INR 1.5- 2.0 ?? Mod. intensity therapy ? INR 2.0 - 3.0 High intensity therapy (1) INR 2.5 - 3.5 High intensity therapy (2) INR 3.0 - 4.0 Critical value INR ? INR >5.9 ?? Specimen Blood - Venous blood (substance) Performing Organization Address [facility] [address] [facility] A [address] POCT glucose (05/19/2021 8:58 PM PDT) POCT Glucose, 214 (A) 65 - 99 mg/dL [facility] POCT (CLIA [id number]) POCT Glucose Test Note: Reference [facility] Comment Ranges revised HOSPITAL POCT September 24, (CLIA [id number]) 2018. Specimen Blood - Capillary blood (substance) Performing Organization Address [facility] e [place] [address] [facility] A [address] POCT (CLIA [id number]) Hemoglobin and hematocrit (05/19/2021 8:19 PM PDT) Pathologist Sig nature Hemoglobin 9.3 (L) 12.0 - 15.6 g/dL [facility] L AB Hematocrit 29.6 (L) 35.0 - 46.0 % [facility] LAB Specimen Blood - Venous blood (substance) Performing Organization Address [facility] Phon e [facility] LAB [address] [facility] A [address] POCT glucose PRN (05/19/2021 4:59 PM PDT) POCT Glucose, 219 (A) 65 - 99 mg/dL [facility] POCT (CLIA [id number]) POCT Glucose Test Note: Reference [facility] HOSPITAL POCT September 24 (CLIA [id number]) 2018. Specimen Blood - Capillary blood (substance) Performing Organization Address [facility] Phon e Number [place] [address] [facility] A [address] POCT (CLIA [id number]) POCT glucose (05/19/2021 11:35 AM PDT) POCT Glucose, 222 (A) 65 - 99 mg/dL [facility] POCT (CLIA [id number]) POCT Glucose Test Note: Reference [facility] revised HOSPITAL POCT September 24 (CLIA [id number]) 2018. Specimen Blood - Capillary blood (substance) Performing Organization Address City/[facility] Phon e Number [facility] [address] [facility] A [address] POCT (CLIA [id number]) POCT glucose PRN (05/19/2021 8:04 AM PDT) POCT Glucose, 131 (A) 65 - 99 mg/dL [facility] POCT (CLIA [id number]) POCT Glucose Test Note: Reference [facility] Comment Ranges revised HOSPITAL POCT September 24, (CLIA [id number]) 2018. Specimen Blood - Capillary blood (substance) Performing Organization Address [facility] Phon e Number [place] [address] [facility] A [phone] POCT (CLIA [id number]) Hold Red Top (05/19/2021 4:31 AM PDT) Pathologist Sig nature Extra Tube Hold for [facility] add-ons.Comment: LAB Auto resulted. Specimen Blood - Venous blood (substance) Performing Organization Address [facility] A [address] Type and screen (05/19/2021 4:20 AM PDT) ABORh O NEGATIVE [facility] BLOOD BANK Antibody Screen NEGATIVE [facility]LOOD [facility] Patient History Check RECORDS VERIFIED [facility] BLOOD [facility] Reflex to ABO/Rh Type NO [facility] BLOOD BANK Specimen Blood - Venous blood (substance) Performing Organization Address [facility]/[place] [address] [place], [place] [address] BLOOD BANK Magnesium (05/19/2021 4:20 AM PDT) Pathologist Sig nature Magnesium 2.0 1.6 - 2.6 mg/dL [facility] LA B Specimen Blood - Venous blood (substance) Performing Organization Address [facility] [address] [facility] A [address] Complete blood count with diff (05/19/2021 4:20 AM PDT) Pathologist Sig nature WBC Auto 6.7 3.8 - 10.1 [facility] x10e3/uL [facility] LAB RBC 3.09 (L) 3.90 - 5.20 [facility] x10e6/uL HOSPITAL LAB Hemoglobin 7.7 (L) 12.0 - 15.6 [facility] g/dL HOSPITAL LAB Hematocrit 25.6 (L) 35.0 - 46.0 % [facility] LAB MCV 83 81 - 100 fL [facility] LAB MCH 24.9 (L) 27.0 - 35.0 pg [facility] LAB MCHC 30.1 (L) 32.0 - 37.0 [facility] g/dL [facility] LAB RDW 19.9 (H) 12.3 - 15.4 % [facility] LAB Platelets 252 150 - 400 [facility] x10e3/uL [facility] LAB MPV 10.0 7.4 - 10.4 fL [facility] LAB NRBC % 0 0 /100 WBCs [facility] LAB Abs. NRBC 0.0 x10e3/uL [facility] LAB % Neutrophils 59 % [facility] LAB % Lymphocytes 33 % [facility] LAB % Monocytes 7 % [facility] LAB % Eosinophils 1 % [facility] LAB % Basophils 0 % [facility] LAB Abs. Neutrophils 4.0 1.6 - 6.9 [place] [id number] LAB Abs. Lymphocytes 2.2 1.1 - 4.8 [place] [id number] LAB Abs. Monocytes 0.5 0.0 - 1.[address] LAB Abs. Eosinophils 0.0 0.0 - 0.[address] LAB Abs. Basophils 0.0 0.0 - 0.[address] LAB Abs. Neutrophils 4,000.0 1,600.0-6,900.0 [facility] (Auto) [facility] LAB Specimen Blood - Venous blood (substance) Performing Organization Address City/State/ZIP Code Phon e Number [facility] [address] [facility] [address] Basic metabolic panel (05/19/2021 4:20 AM PDT) Pathologist Sig nature Sodium 133 (L) 134 - 144 [facility] mmol/L [facility] LAB Potassium 4.5 3.5 - 5.2 [facility] mmol/L [facility] LAB Chloride 101 97 - 108 mmol/L [facility] LAB CO2 25 18 - 29 mmol/L [facility] LAB Anion Gap 7 3 - 11 mmol/L [facility] LAB BUN 19.0 8.0 - 27.0 [facility] mg/dL HOSPITAL LAB Creatinine 1.57 (H) 0.57 - 1.00 [facility] mg/dL [facility] LAB Glucose, Serum 147 (H) 65 - 99 mg/dL [facility] LAB Calcium 8.5 8.5 - 10.1 [facility] mg/dL HOSPITAL LAB eGFR (CKD-EPI) 32 (L) >60 (CKD-EPI) [facility] mL/min/1.73 m2 HOSPITAL LAB BUN/Creatinine Ratio 12.1 7.0 - 24.0 [facility] LAB Specimen Blood - Venous blood (substance) Performing Organization Address [facility] [address] [place] [address] A [phone] Prothrombin time/INR (05/19/2021 4:20 AM PDT) Prothrombin Time 14.9 11.9 - 15.0 [facility] LAB INR 1.1 0.8 - 1.2 [facility] Comment: HOSPITAL LAB Therapeutic Ranges: Low intensity therapy ? INR 1.5- 2.0 ?? Mod. intensity therapy ? INR 2.0 - 3.0 High intensity therapy (1) INR 2.5 - 3.5 High intensity therapy (2) INR 3.0 - 4.0 Critical value INR ? INR >5.9 ?? Specimen Blood - Venous blood (substance) Performing Organization Address [facility] e [facility] LAB [address] [facility] A [phone] POCT glucose PRN (05/18/2021 9:16 PM PDT) POCT Glucose, 225 (A) 65 - 99 mg/dL [facility] POCT (CLIA [id number]) POCT Glucose Test Note: Reference [facility] Comment Ranges revised HOSPITAL POCT September 24, (CLIA [id number]) 2018. Specimen Blood - Capillary blood (substance) Performing Organization Address [facility]/ZIP Code Phon e Number [facility] [address] [facility] A [address] POCT (CLIA [id number]) POCT glucose PRN (05/18/2021 5:33 PM PDT) POCT Glucose, 321 (A) 65 - 99 mg/dL [facility] POCT (CLIA [id number]) POCT Glucose Test Note: Reference [facility] Comment Ranges revised HOSPITAL POCT September 24 (CLIA [id number]) 2018. Specimen Blood - Capillary blood (substance) Performing Organization Address [facility] Phon e Number [facility] [address] [facility] A [address] POCT (CLIA [id number]) POCT glucose (05/18/2021 1:17 PM PDT) POCT Glucose, 328 (A) 65 - 99 mg/dL [facility] POCT (CLIA [id number]) POCT Glucose Test Note: Reference [facility] revised HOSPITAL POCT September 24 (CLIA [id number]) 2018. Specimen Blood - Capillary blood (substance) Performing Organization Address City/[facility]/ZIP Code Phon e Number [facility] [address] [facility] [address] A [address] POCT (CLIA [id number]) POCT glucose (05/18/2021 7:39 AM PDT) POCT Glucose, 262 (A) 65 - 99 mg/dL [facility] POCT (CLIA [id number]) POCT Glucose Test Note: Reference [facility] Ranges revised HOSPITAL POCT September 24 (CLIA [id number]) 2018. Specimen Blood - Capillary blood (substance) Performing Organization Address City/[facility]/ZIP Code Phon e Number [facility] [address] [facility] [address] A [address] POCT (CLIA [id number]) Magnesium (05/18/2021 6:20 AM PDT) Pathologist Sig nature Magnesium 1.6 1.6 - 2.6 mg/dL [facility] LA B Specimen Blood - Venous blood (substance) Performing Organization Address City/State/ZIP Code Phon e Number [facility] [address] [facility] [place] [phone] Complete blood count with diff (05/18/2021 6:20 AM PDT) Pathologist Sig nature WBC Auto 7.9 3.8 - 10.1 [facility] x10e3/uL [facility] LAB RBC 3.36 (L) 3.90 - 5.20 [facility] x10e6/uL [facility] LAB Hemoglobin 8.4 (L) 12.0 - 15.6 [facility] g/dL [facility] LAB Hematocrit 28.4 (L) 35.0 - 46.0 % [facility] LAB MCV 85 81 - 100 fL [facility] LAB MCH 25.0 (L) 27.0 - 35.0 pg [facility] LAB MCHC 29.6 (L) 32.0 - 37.0 [facility] g/dL [facility] LAB RDW 20.1 (H) 12.3 - 15.4 % [facility] LAB Platelets 287 150 - 400 [facility] x10e3/uL [facility] LAB MPV 10.2 7.4 - 10.4 fL [facility] LAB NRBC % 0 0 /100 WBCs [facility] LAB Abs. NRBC 0.0 x10e3/uL [facility] LAB % Neutrophils 80 % [facility] LAB % Lymphocytes 13 % [facility] % Monocytes 6 % [facility] LAB % Eosinophils 0 % [facility] LAB % Basophils 0 % [facility] LAB Abs. Neutrophils 6.3 1.6 - 6.9 [facility] x10e3/uL [facility] LAB Abs. Lymphocytes 1.0 (L) 1.1 - 4.8 [facility] x10e3/uL [facility] LAB Abs. Monocytes 0.5 0.0 - 1.0 [facility] x10e3/uL [facility] LAB Abs. Eosinophils 0.0 0.0 - 0.5 [facility] x10e3/uL HOSPITAL LAB Abs. Basophils 0.0 0.0 - 0.4 [facility] x10e3/uL HOSPITAL LAB Abs. Neutrophils 6,300.0 1,600.0-6,900.0 [facility] (Auto) /uL HOSPITAL LAB Specimen Blood - Venous blood (substance) Performing Organization Address [facility] Phon e Number [facility] LAB [address] [facility] A [phone] Basic metabolic panel (05/18/2021 6:20 AM PDT) Pathologist Sig nature Sodium 131 (L) 134 - 144 [facility] mmol/L [facility] LAB Potassium 4.7 3.5 - 5.2 [facility] mmol/L [facility] LAB Chloride 100 97 - 108 mmol/L [facility] LAB CO2 24 18 - 29 mmol/L [facility] LAB Anion Gap 7 3 - 11 mmol/L [facility] LAB BUN 17.0 8.0 - 27.0 [facility] mg/dL [facility] LAB Creatinine 1.57 (H) 0.57 - 1.00 [facility] mg/dL [facility] LAB Glucose, Serum 308 (H) 65 - 99 mg/dL [facility] LAB Calcium 8.6 8.5 - 10.1 [facility] mg/dL [facility] LAB eGFR (CKD-EPI) 32 (L) >60 (CKD-EPI) [facility] mL/min/1.73 m2 [facility] LAB BUN/Creatinine Ratio 10.8 7.0 - 24.0 [facility] LAB Specimen Blood - Venous blood (substance) Narrative Performed At Result approved by Trent Batista MD on 05/18/21 [facility] LAB Performing Organization Address City/[facility] Phon e Number [facility] [address] [facility] A [address] POCT glucose (05/17/2021 8:01 PM PDT) POCT Glucose, 283 (A) 65 - 99 mg/dL [facility] POCT (CLIA [id number]) POCT Glucose Test Note: Reference [facility] Comment Ranges revised HOSPITAL POCT September 24 (CLIA [id number]) 2018. Specimen Blood - Capillary blood (substance) Performing Organization Address City/[facility]/ZIP [facility] Phon e Number [facility] [address] [facility] A [address] POCT (CLIA [id number]) ECG 12 lead- now if intervention performed (05/17/2021 4:13 PM PDT) Pathologist Sig nature HR 84 bpm [facility] RR 716 ms [facility] DC 187 ms [facility] QRSD 85 ms [facility] QT 403 ms [facility] QTc 476 ms [facility] QRS -33 deg [facility] T 112 deg [facility] Impression - ABNORMAL ECG - [facility] Impression Sinus rhythm [facility] Impression Left axis deviation [facility] Impression Anteroseptal infarct, [facility] age indeterminate SYSTEM Impression Abnormal T, suspect [facility] prox. LAD occlu. or CVA SYSTEM Specimen Narrative Performed At This result has an attachment that is no t available. Result approved by Trent Batista MD on 05/18/21 [facility] Performing Organization Address City/[facility]/ZIP Code Phon e Number [facility] [address] [place] [address] POCT glucose (05/17/2021 4:00 PM PDT) POCT Glucose, 89 (A) 65 - 99 mg/dL [facility] POCT (CLIA [id number]) POCT Glucose Test Note: Reference [facility] Comment Ranges revised HOSPITAL POCT September 24 (CLIA [id number]) 2018. Specimen Blood - Capillary blood (substance) Performing Organization Address City/[facility]/ZIP Code Phon e Number [facility] [address] [facility] A [address] POCT (CLIA [id number]) SI STENT ANDREA - CORONARY (05/17/2021 3:31 PM PDT) Specimen Narrative Performed At This result has an attachment that is no t available. PROCEDURE PERFORMED: [facility] 1. ??Percutaneous intervention on the left anterior ?descending. 2. ??Supervision for moderate sedation. PROCEDURAL DETAILS: Please refer to the procedure log for complete details. ??Briefly, Dr. Tan did the diagno stic angiogram. ??I was asked to do an intervention. ??The patient was given moderate sedation with IV versed and fentany l by a dedicated nurse under my [id number] supervision us ing physiological monitoring for the duration of the proce dure. INTERVENTIONAL DETAILS: Using a Voda 3.0 guide and a Runthrough wire, we were able to balloon dilate this proximal LAD lesion which was around 80-90%. ??It was then stented with a 3.5 x 15 mm Xience drug coated stent delivered at 14 atmospheres with excellent angiographi c results. Dual antiplatelet therapy per guidelines. ??Total cont rast used 15 cc. Performing Organization Address City/State/ZIP Code [facility] e [facility] RADIOLOGY SYSTEM [address] [place] [id number] SI LEFT HEART CATH (05/17/2021 3:31 PM PDT) Specimen Narrative Performed At This result has an attachment that is no t available. Cardiac Cath Report Date of Service 05/17/21 Procedure: SI LEFT HEART CATHSI STENT ANDREA - CORONARY Indications: chest pain and TN Vascular Access Right Femoral Artery using 5 Fr sheath, closure with C losure Device by interventional cardiology. Right Radial Artery using 5 Fr slender sheath, closure with TR band. Diagnostic Catheters Left main: JL, 4.0, 5 Fr RCA: JR, 4.0, 5 Fr Procedure Details Left heart cath details: The patient was brought to the cardiac catheterization lab in a fasting state. Patient was laid supine on the cardiac catheter ization table and the vascular access site was prepped and draped in the usual sterile fashion. One percent Lidocaine was infiltrated over th e Right Radial Artery and vascular access was achieved but here was r esistance while advancing the sheath and the case was switched to righ t groin after closure of the radial access with TR band. ??One perce nt Lidocaine was infiltrated over the Right femoral Artery and vascular access was achieved. Guide wire was used to advance the catheter through the sheath and up into the aortic sinuses. After coronary angiogr aphy was completed, guide wire was advanced through the catheter ahead of the tip of the catheter and the guide wire along with the catheter we re pulled together out of the sheath. Medications/Fluoro Time Medications Administered: see cath tech report for com plete details Fluorscopy Time: see cath tech report for complete det ails Contrast (Isovue): see cath tech report for complete d etails Blood loss: see cath tech report for complete details Findings 1) Coronary angiography: right dominance A. Left main: normal caliber vessel with minimal yolanda nal irregularities. B. Left Anterior Descending (LAD) Artery: normal olga rinku vessel with 80-90% stenosis in the proximal LAD that involves the take off the first medium caliber diagonal branch. C. Left Circumflex (LCx): ??Normal caliber vessel wit h mild luminal irregularities. D. Right Coronary Artery: Normal caliber vessel with mild luminal irregularities. 2) Left Heart catheterization A. No gradient across the aortic valve on catheter pu ll back 3) Femoral Artery Angiogram: right common femoral amber riotomy, below the inferior hypogastric take off. Complications There were no periprocedural complications identified Summary: Obstructive stenosis involving the proximal L AD Recommendations: Refer to interventional cardiology fo r PCI. Nikko Tan MD POCT glucose PRN (05/17/2021 12:44 PM PDT) POCT Glucose, 214 (A) 65 - 99 mg/dL [facility] POCT (CLIA [id number]) POCT Glucose Test Note: Reference [facility] Comment Ranges revised HOSPITAL POCT September 24, (CLIA [id number]) 2018. Specimen Blood - Capillary blood (substance) Performing Organization Address [facility] e [facility] [address] [address] POCT (CLIA [id number]) Hold Green Top - PST LiHeparin (05/17/2021 8:48 AM PDT) Pathologist Sig formerly [facility] Extra Tube Hold for [facility] add-ons.Comment: LAB Auto resulted. Specimen Blood - Venous blood (substance) Performing Organization Address [facility] e [facility] LAB [address] A [id number] Partial thromboplastin time, activated (05/17/2021 8:40 AM PDT) Pathologist Sig nature aPTT 62.8 (H)Comment: 23.5 - 33.7 sec [facility] Consult with the HOSPITAL LAB Pharmacy for updated Heparin protocols. Specimen Blood - Venous blood (substance) Performing Organization Address City/State/ZIP Code Phon e Number [facility] LAB [address] [facility] [place] [address] Complete blood count with diff (05/17/2021 5:39 AM PDT) Pathologist Sig nature WBC Auto 6.4 3.8 - 10.1 [facility] x10e3/uL [facility] LAB RBC 4.03 3.90 - 5.20 [facility] x10e6/uL [facility] LAB Hemoglobin 9.8 (L) 12.0 - 15.6 [facility] g/dL [facility] LAB Hematocrit 33.9 (L) 35.0 - 46.0 % [facility] LAB MCV 84 81 - 100 fL [facility] LAB MCH 24.3 (L) 27.0 - 35.0 pg [facility] LAB MCHC 28.9 (L) 32.0 - 37.0 [facility] g/dL [facility] LAB RDW 20.1 (H) 12.3 - 15.4 % [facility] LAB Platelets 252 150 - 400 [place] [id number]/[facility] LAB MPV 10.1 7.4 - 10.4 fL [facility] LAB NRBC % 0 0 /100 WBCs [facility] LAB Abs. NRBC 0.0 x10e3/uL [facility] LAB % Neutrophils 82 % [facility] LAB % Lymphocytes 14 % [facility] LAB % Monocytes 2 % [facility] LAB % Eosinophils 1 % [facility] LAB % Basophils 0 % [facility] LAB Abs. Neutrophils 5.3 1.6 - 6.9 [facility] x10e3/uL [facility] LAB Abs. Lymphocytes 0.9 (L) 1.1 - 4.8 [facility] x10e3/uL [facility] LAB Abs. Monocytes 0.1 0.0 - 1.0 [facility] x10e3/uL [facility] LAB Abs. Eosinophils 0.0 0.0 - 0.5 [facility] x10e3/uL [facility] LAB Abs. Basophils 0.0 0.0 - 0.4 [facility] x10e3/uL HOSPITAL LAB Abs. Neutrophils 5,300.0 1,600.0-6,900.0 [facility] (Auto) /uL HOSPITAL LAB Specimen Blood - Venous blood (substance) Performing Organization Address [facility] Code Phon e [facility] LAB [address] A [address] Basic metabolic panel (05/17/2021 5:38 AM PDT) Pathologist Sig nature Sodium 135 134 - 144 [facility] mmol/L HOSPITAL LAB Potassium 4.5 3.5 - 5.2 [facility] mmol/L [facility] LAB Chloride 101 97 - 108 mmol/L [facility] LAB CO2 27 18 - 29 mmol/L [facility] LAB Anion Gap 7 3 - 11 mmol/L [facility] BUN 12.0 8.0 - 27.0 [facility] mg/dL HOSPITAL LAB Creatinine 1.58 (H) 0.57 - 1.00 [facility] mg/dL [facility] LAB Glucose, Serum 168 (H) 65 - 99 mg/dL [facility] LAB Calcium 8.8 8.5 - 10.1 [facility] mg/dL [facility] LAB eGFR (CKD-EPI) 32 (L) >60 (CKD-EPI) [facility] mL/min/1.73 m2 HOSPITAL LAB BUN/Creatinine Ratio 7.6 7.0 - 24.0 [facility] LAB Specimen Blood - Venous blood (substance) Performing Organization Address [facility] Phon e [facility] [address] [facility] A [address] Partial thromboplastin time, activated (05/17/2021 1:11 AM PDT) Pathologist Sig nature aPTT 83.6 (H)Comment: 23.5 - 33.7 sec [facility] Consult with the HOSPITAL LAB Pharmacy for updated Heparin protocols. Specimen Blood - Venous blood (substance) Performing Organization Address [facility]/ZIP [facility] Phon e Number [facility] [address] [facility] A [id number] POCT glucose PRN (05/16/2021 8:23 PM PDT) POCT Glucose, 236 (A) 65 - 99 mg/dL [facility] POCT (CLIA [id number]) POCT Glucose Test Note: Reference [facility] Comment Ranges revised HOSPITAL POCT September 24, (CLIA [id number]) 2018. Specimen Blood - Capillary blood (substance) Performing Organization Address [facility] Phon e Number [address] A [address] POCT (CLIA [id number]) Partial thromboplastin time, activated (05/16/2021 6:07 PM PDT) [facility] aPTT 117.6 (H)Comment: 23.5 - 33.7 sec [facility] Consult with the HOSPITAL LAB Pharmacy for updated Heparin protocols. Specimen Blood - Venous blood (substance) Performing Organization Address [facility] LAB [address] [place] [address] A [address] POCT glucose (05/16/2021 5:11 PM PDT) [facility] POCT Glucose, Blood 219 (A) 65 - 99 mg/dL POCT Glucose Test Note: Reference Comment Ranges revised September 24, 2019. Specimen Blood - Capillary blood (substance) POCT glucose (05/16/2021 12:12 PM PDT) Pathologist [facility] POCT Glucose, Blood 165 (A) 65 - 99 mg/dL POCT Glucose Test Note: Reference Comment Ranges revised September 24, 2019. Specimen Blood - Capillary blood (substance) CK and CK-MB (05/16/2021 11:19 AM PDT) [facility] Total CK 21 21 - 215 U/L [facility] LAB CK-MB Index 8.1 (H) 0.0 - 5.0 % [facility] LAB CK-MB 1.7 <=5.3 ng/mL [facility] LAB Specimen Blood - Venous blood (substance) Performing Organization Address [facility] Phon [facility] A [id number] Basic metabolic panel (05/16/2021 11:19 AM PDT) Pathologist Sig nature Sodium 130 (L) 134 - 144 [facility] mmol/L [facility] LAB Potassium 4.6 3.5 - 5.2 [facility] mmol/L [facility] LAB Chloride 97 97 - 108 mmol/L [facility] CO2 22 18 - 29 mmol/L [facility] Anion Gap 11 3 - 11 mmol/L [facility] BUN 13.0 8.0 - 27.0 [facility] mg/dL [facility] LAB Creatinine 1.46 (H) 0.57 - 1.00 [facility] mg/dL [facility] LAB Glucose, Serum 147 (H) 65 - 99 mg/dL [facility] LAB Calcium 8.4 (L) 8.5 - 10.1 [facility] mg/dL [facility] LAB eGFR (CKD-EPI) 35 (L) >60 (CKD-EPI) [facility] mL/min/1.73 m2 HOSPITAL LAB BUN/Creatinine Ratio 8.9 7.0 - 24.0 [facility] LAB Specimen Blood - Venous blood (substance) Performing Organization Address [facility]/ZIP Code Phon [facility] [address] A [address] Troponin (05/16/2021 11:19 AM PDT) Pathologist Sig [facility] Troponin T 0.077 (HC) <0.020 ug/L [facility] Comment: HOSPITAL LAB Note: Reference Ranges revised October 15, 2020 Note: Critical Value parameters revised October 15, 2020. Specimen Blood - Venous blood (substance) Performing Organization Address City/[facility]/ZIP Code Phon e [facility] LAB [address] A [address] Hold Green Top - PST LiHeparin (05/16/2021 11:19 AM PDT) Pathologist Sig nature Extra Tube Hold for [facility] add-ons.Comment: LAB Auto resulted. Specimen Blood - Venous blood (substance) Performing Organization Address [facility]/ZIP Code Phon [facility] [address] [facility] [place] [address] Hold Lav Top - EDTA (05/16/2021 11:18 AM PDT) Pathologist Sig nature Extra Tube Hold for [facility] add-ons.Comment: LAB Auto resulted. Specimen Blood - Venous blood (substance) Performing Organization Address [facility] Phon e [facility] LAB [address] [facility] [place] A [address] Partial thromboplastin time, activated (05/16/2021 10:36 AM PDT) Pathologist [facility] nature aPTT 112.5 (H)Comment: 23.5 - 33.7 sec [facility] Consult with the HOSPITAL LAB Pharmacy for updated Heparin protocols. Specimen Blood - Venous blood (substance) Performing Organization Address [facility] Phon [facility] [address] [facility] [place] A [address] ECHOCARDIOGRAM LIMITED (05/16/2021 9:36 AM PDT) Specimen Narrative Performed At ? [facility] RADIOLOGY SYSTEM [place] + + ? Hospital ?+---------+ : ?: ?[address] ?: ? : : ?: ?[address] ?: ? : : ?: ?[place], ? : ? : : ?: ? [place] [address] ?: ? : : ?: ?Phon e: 360- ?+-- -------+ + + ? [phone] ? Echocardiog epifanio Report + --- + :Name: SHIRIN AGUILLON ?Study Date: 05/16/2021 ?Height: 60 in ??: :Hospital ? ReadingLocation: ?Weight: 168 lb : : ?Gender: Fem amanda ?BSA: 1.7 m2 ?: :: 1945 ? Age: 75 yrs ? BP: 135/83 mmHg: :Reason For Study: Assess LV wall motion and EF ? : :Ordering Physician: MARY, ?: :NIKKO ?Performed By: Veronica Raphael ? : :Referring: RED TEAM ?: + --- + Interpretation Summary Limited Echo: 1) Normal left ventricular size and systolic f unction (EF 55-60%). 2) Subtle mid anterior and mid anterolateral wall hypokinesis present. Septal bounce present. 3) Compared to the Echo done 04/23/2021, no significant change when compared visually. Procedure: ?? A two-dimensional transthoracic echocardiogram with color flow and Doppler was performed in limited views only to ass ess Assess LV wall motion, EF. The study quality was technically adequate . Comparison is made with the echocardiogram of 04/23/2021. The patient was in normal sinus rhythm during the exam. Left Ventricle: ?? The left ventricle is normal in siz e and wall thickness. A false chord is noted (normal variant). The ejection fraction is estimated to be 55-60%. Subtle mid anterior and mid anterolateral w all hypokinesis present. Septal bounce present. Tricuspid Valve: ?? The tricuspid valve is normal in structure and function. There is a trace or physiologic amount of tricuspid regurgitation. Pulmonary artery pressures cannot be estimated because of the la ck of a measurable TR jet velocity but the IVC suggests a CVP of around 3 mmHg. Great Vessels: ?? The IVC is of normal diameter and collapses greater than 50% with a sniff. This suggests a low right atrial pressur e of 3 mm Hg. Pericardium/ Pleura ?? There is no pericardial effusio n. There is an anterior echo-free space consistent with a fat pa d. MMode/2D Measurements & Calculations LVIDd: 4.1 cm ? IVC diam: 1.6 cm LVIDs: 2.6 cm IVSd: 0.77 cm LVPWd: 0.51 cm LV bai. diameter/BSA (cm/m^2): 2.4 LV sys. diameter/BSA (cm/m^2): 1.5 FS: 35.7 % ___ ? Reading Physician:10:39 AM Procedure Note Interface, Radiology Results In - 2020 10:39 AM PDT Ari Leonard + + Jenniferi jossue +---------+ : : [address] : : : : [facility] : : : : [place], : : : : [place] [address] : : : : Phone: [phone] +[phone]+ + [phone] Echocardiog epifanio Report + + :Name: SHIRIN AGUILLON Study Date: 05/16/2021 Height: 60 in : :[facility] ReadingLoca tion: Weight: 168 lb : : Gender: Fem amanda BSA: 1.7 m2 : :: 1945 Age: 75 yrs BP: 135/83 mmHg: :Reason For Study: Assess LV wall motion and EF : :Ordering Physician: MARY, : :NIKKO Headley y: Veronica Raphael : :Referring: RED TEAM : + + Interpretation Summary Limited Echo: 1) Normal left ventricular size and syst olic f unction (EF 55-60%). 2) Subtle mid anterior and mid anterolat eral wall hypokinesis present. Septal bounce present. 3) Compared to the Echo done 04/23/2021, no significant change when compared visually. Procedure: A two-dimensional transthor acic echocardiogram with color flow and Doppler was performed in [facility] only to assess Assess LV wall motion, EF. The study quality was techni pradip adequate. Comparison is made with the echocardiogram of 04/23/2021. Th e patient was in normal sinus rhythm during the exam. Left Ventricle: The left ventricle is normal in size and wall thickness. A false chord is noted (normal variant). T he ejection fraction is estimated to be 55-60%. Subtle mid anterior and mid a nterolateral wall hypokinesis present. Septal bounce present. Tricuspid Valve: The tricuspid valve i s normal in structure and function. There is a trace or physiologic amount o f tricuspid regurgitation. Pulmonary artery pressures cannot be estimated bec ause of the lack of a measurable TR jet velocity but the IVC suggests a CVP of around 3 mmHg. Great Vessels: The IVC is of normal di ameter and collapses greater than 50% with a sniff. This suggests a low right atrial pressure of 3 mm Hg. Pericardium/ Pleura There is no perica rdial effusion. There is an anterior echo-free space consistent with a fat pa d. MMode/2D Measurements & Calculations LVIDd: 4.1 cm IVC diam: 1.6 cm LVIDs: 2.6 cm IVSd: 0.77 cm LVPWd: 0.51 cm LV bai. diameter/BSA (cm/m^2): 2.4 LV sys. diameter/BSA (cm/m^2): 1.5 FS: 35.7 % Reading Physician:10:39 AM Performing Organization Address City/[facility]/ZIP Code Phon e Number [facility] [address] [place] [address] POCT glucose (05/16/2021 9:25 AM PDT) POCT Glucose, 98 65 - 99 mg/dL [facility] POCT (CLIA [id number]) POCT Glucose Test Note: Reference [facility] Comment Ranges revised HOSPITAL POCT September 24, (CLIA [id number]) 2018. Specimen Blood - Capillary blood (substance) Performing Organization Address City/[facility]/ZIP Code Phon e Number [facility] [address] A [id number] POCT (CLIA [id number]) POCT glucose (05/16/2021 7:48 AM PDT) POCT Glucose, 98 65 - 99 mg/dL [facility] POCT (CLIA [id number]) POCT Glucose Test Note: Reference [facility] Comment Ranges revised HOSPITAL POCT September 24, (CLIA [id number]) 2018. Specimen Blood - Capillary blood (substance) Performing Organization Address [facility] Phon e Number [facility] [address] A [address] POCT (CLIA [id number]) Partial thromboplastin time, activated (05/16/2021 2:22 AM PDT) Pathologist Sig nature aPTT 91.9 (H)Comment: 23.5 - 33.7 sec [facility] Consult with the HOSPITAL LAB Pharmacy for updated Heparin protocols. Specimen Blood - Venous blood (substance) Performing Organization Address City/[facility] Phon e Number [facility] [address] A [id number] Complete blood count with diff (05/16/2021 2:22 AM PDT) Pathologist Sig nature WBC Auto 6.9 3.8 - 10.1 [facility] x10e3/uL HOSPITAL LAB RBC 3.65 (L) 3.90 - 5.20 [facility] x10e6/uL [facility]OS[facility]ITAL LAB Hemoglobin 9.2 (L) 12.0 - 15.6 [facility] g/dL HOSPITAL LAB Hematocrit 30.5 (L) 35.0 - 46.0 % [facility] MCV 84 81 - 100 fL [facility] MCH 25.2 (L) 27.0 - 35.0 pg [facility] MCHC 30.2 (L) 32.0 - 37.0 [facility] g/dL [facility] LAB RDW 20.4 (H) 12.3 - 15.4 % [facility] LAB Platelets 236 150 - 400 [place] [id number]/[facility] LAB MPV 10.9 (H) 7.4 - 10.4 fL [facility] LAB NRBC % 0 0 /100 WBCs [facility] LAB Abs. NRBC 0.0 x10e3/uL [facility] LAB % Neutrophils 54 % [facility] LAB % Lymphocytes 34 % [facility] LAB % Monocytes 10 % [facility] LAB % Eosinophils 2 % [facility] LAB % Basophils 0 % [facility] LAB Abs. Neutrophils 3.7 1.6 - 6.9 [facility] x10e3/uL [facility] LAB Abs. Lymphocytes 2.4 1.1 - 4.8 [place] [id number] LAB Abs. Monocytes 0.7 0.0 - 1.[address] LAB Abs. Eosinophils 0.1 0.0 - 0.[address] LAB Abs. Basophils 0.0 0.0 - 0.4 [place] [id number] LAB Abs. Neutrophils 3,700.0 1,600.0-6,900.0 [facility] (Auto) /[facility] LAB Specimen Blood - Venous blood (substance) Performing Organization Address City/[facility] Phon [facility] [address] [facility] A [address] Partial thromboplastin time, activated (05/16/2021 12:08 AM PDT) Pathologist Sig nature aPTT >150.0 (HC)Comment: 23.5 - 33.7 sec [facility] Consult with the HOSPITAL LAB Pharmacy for updated Heparin protocols. Specimen Blood - Venous blood (substance) Performing Organization Address [facility] Phon [facility] [address] [facility] A [address] POCT glucose (05/15/2021 9:34 PM PDT) POCT Glucose, 260 (A) 65 - 99 mg/dL [facility] POCT (CLIA [id number]) POCT Glucose Test Note: Reference [facility] Comment Ranges revised HOSPITAL POCT September 24, (CLIA [id number]) 2018. Specimen Blood - Capillary blood (substance) Performing Organization Address City/State/ZIP Code Phon e Number [facility] [address] [facility] [place] [address] POCT (CLIA [id number]) Complete blood count with diff (05/15/2021 5:23 PM PDT) Pathologist Sig nature WBC Auto 8.3 3.8 - 10.1 [facility] x10e3/uL [facility] LAB RBC 3.62 (L) 3.90 - 5.20 [facility] x10e6/uL [facility] LAB Hemoglobin 9.2 (L) 12.0 - 15.6 [facility] g/dL [facility] LAB Hematocrit 30.2 (L) 35.0 - 46.0 % [facility] MCV 83 81 - 100 fL [facility] MCH 25.4 (L) 27.0 - 35.0 pg [facility] MCHC 30.5 (L) 32.0 - 37.0 [facility] g/[facility] LAB RDW 20.4 (H) 12.3 - 15.4 % [facility] LAB Platelets 240 150 - 400 [place] [id number]/[facility] LAB MPV 11.2 (H) 7.4 - 10.4 fL [facility] NRBC % 0 0 /100 WBCs [facility] Abs. NRBC 0.0 x10e3/uL [facility] % Neutrophils 71 % [facility] % Lymphocytes 21 % [facility] % Monocytes 5 % [facility] % Eosinophils 0 % [facility] % Basophils 1 % [facility] Abs. Neutrophils 5.9 1.6 - 6.9 [facility] x10e3/uL [facility] LAB Abs. Lymphocytes 1.8 1.1 - 4.8 [facility] x10e3/uL [facility] LAB Abs. Monocytes 0.5 0.0 - 1.0 [facility] x10e3/uL [facility] LAB Abs. Eosinophils 0.0 0.0 - 0.5 [place] [id number]/uL HOSPITAL LAB Abs. Basophils 0.0 0.0 - 0.4 [facility] x10e3/uL HOSPITAL LAB Abs. Neutrophils 5,900.0 1,600.0-6,900.0 [facility] (Auto) /uL HOSPITAL LAB Specimen Blood - Venous blood (substance) Performing Organization Address [facility]/ZIP Code [facility] [address] A [address] POCT glucose (05/15/2021 4:48 PM PDT) POCT Glucose, Blood 277 (A) 65 - 99 mg/dL POCT Glucose Test Note: Reference Comment Ranges revised September 24, 2019. Specimen Blood - Capillary blood (substance) Troponin (05/15/2021 4:32 PM PDT) Pathologist [facility] nature Troponin T 0.077 (HC) <0.020 ug/L [facility] Comment: HOSPITAL LAB Note: Reference Ranges revised October 15, 2020 Note: Critical Value parameters revised October 15, 2020. Specimen Blood - Venous blood (substance) Performing Organization Address [facility] [address] [facility] A [id number] ECG 12 lead (05/15/2021 12:33 PM PDT) Pathologist [facility] nature HR 77 bpm [facility] RR 776 ms [facility] DC 179 ms [facility] QRSD 87 ms [facility] QT 439 ms [facility] QTc 498 ms [facility] QRS -34 deg [facility] T 122 deg [facility] Impression - ABNORMAL ECG - [facility] Impression Sinus rhythm [facility] Impression Left anterior [facility] fascicular block SYSTEM Impression Low voltage, precordial [facility] leads SYSTEM Impression Abnrm T in the anterior [facility] leads SYSTEM Impression When compared with ECG [facility] 16-Apr-2021 SYSTEM 15:32:34, Impression Significant change in [facility] rhythm: previously SYSTEM atrial fibrillation Impression New or worsened [facility] ischemia SYSTEM Specimen Narrative Performed At This result has an attachment that is no t available. Performing Organization Address City/[facility]/ZIP Code Phon e Number [facility] [address] [place] [address] CK and CK-MB (05/15/2021 12:29 PM PDT) Pathologist Sig nature Total CK 18 (L) 21 - 215 U/L [facility] CK-MB Index 10.0 (H) 0.0 - 5.0 % [facility] CK-MB 1.8 <=5.3 ng/mL [facility] LAB Specimen Blood - Venous blood (substance) Performing Organization Address [facility] [address] [facility] A [address] Troponin (05/15/2021 12:29 PM PDT) Pathologist [facility] Troponin T 0.077 (HC) <0.020 ug/L [facility] Comment: HOSPITAL LAB Note: Reference Ranges revised October 15, 2020 Note: Critical Value parameters revised October 15, 2020. Specimen Blood - Venous blood (substance) Performing Organization Address [facility] A [address] POCT glucose (05/15/2021 12:27 PM PDT) Pathologist [facility] POCT Glucose, Blood 146 (A) 65 - 99 mg/dL POCT Glucose Test Note: Reference Comment Ranges revised September 24, 2019. Specimen Blood - Capillary blood (substance) Complete blood count with diff (05/15/2021 8:56 AM PDT) Pathologist [facility] WBC Auto 6.5 3.8 - 10.1 [facility] x10e3/uL HOSPITAL LAB RBC 3.95 3.90 - 5.20 [facility] x10e6/uL [facility]OSPITAL LAB Hemoglobin 9.9 (L) 12.0 - 15.6 [facility] g/dL HOSPITAL LAB Hematocrit 32.9 (L) 35.0 - 46.0 % [facility] MCV 83 81 - 100 fL [facility] MCH 25.1 (L) 27.0 - 35.0 pg [facility] LAB MCHC 30.1 (L) 32.0 - 37.0 [facility] g/dL HOSPITAL LAB RDW 20.6 (H) 12.3 - 15.4 % [facility] LAB Platelets 246 150 - 400 [facility] x10e3/uL [facility] LAB MPV 10.6 (H) 7.4 - 10.4 fL [facility] LAB NRBC % 0 0 /100 WBCs [facility] LAB Abs. NRBC 0.0 x10e3/uL [facility] LAB % Neutrophils 59 % [facility] LAB % Lymphocytes 30 % [facility] LAB % Monocytes 9 % [facility] LAB % Eosinophils 2 % [facility] LAB % Basophils 0 % [facility] LAB Abs. Neutrophils 3.9 1.6 - 6.9 [facility] x10e3/uL [facility] LAB Abs. Lymphocytes 1.9 1.1 - 4.8 [place] [id number] LAB Abs. Monocytes 0.6 0.0 - 1.0 [place] [id number] LAB Abs. Eosinophils 0.1 0.0 - 0.[address] LAB Abs. Basophils 0.0 0.0 - 0.4 [place] [id number]/[facility] LAB Abs. Neutrophils 3,900.0 1,600.0-6,900.0 [facility] (Auto) /[facility] LAB Specimen Blood - Venous blood (substance) Performing Organization Address [facility] [address] [facility] [address] Magnesium (05/15/2021 8:56 AM PDT) Pathologist Sig [facility] Magnesium 2.0 1.6 - 2.6 mg/dL [facility] LA B Specimen Blood - Venous blood (substance) Performing Organization Address [facility] [address] [facility] A [id number] Basic metabolic panel (05/15/2021 8:56 AM PDT) Pathologist Sig [facility] Sodium 135 134 - 144 [facility] mmol/L [facility] LAB Potassium 4.1 3.5 - 5.2 [facility] mmol/L [facility] LAB Chloride 100 97 - 108 mmol/L [facility] LAB CO2 26 18 - 29 mmol/L [facility] LAB Anion Gap 9 3 - 11 mmol/L [facility] LAB BUN 13.0 8.0 - 27.0 [facility] mg/dL [facility] LAB Creatinine 1.46 (H) 0.57 - 1.00 [facility] mg/dL [facility] LAB Glucose, Serum 121 (H) 65 - 99 mg/dL [facility] LAB Calcium 8.9 8.5 - 10.1 [facility] mg/dL HOSPITAL LAB eGFR (CKD-EPI) 35 (L) >60 (CKD-EPI) [facility] mL/min/1.73 m2 HOSPITAL LAB BUN/Creatinine Ratio 8.9 7.0 - 24.0 [facility] LAB Specimen Blood - Venous blood (substance) Performing Organization Address [facility] e [facility] LAB [address] [facility] A [address] POCT glucose (05/15/2021 8:48 AM PDT) POCT Glucose, Blood 118 (A) 65 - 99 mg/dL POCT Glucose Test Note: Reference Comment Ranges revised September 24, 2019. Specimen Blood - Capillary blood (substance) POCT glucose (05/14/2021 9:31 PM PDT) POCT Glucose, 201 (A) 65 - 99 mg/dL [facility] POCT (CLIA [id number]) POCT Glucose Test Note: Reference [facility] Comment Ranges revised HOSPITAL POCT September 24 (CLIA [id number]) 2018. Specimen Blood - Capillary blood (substance) Performing Organization Address City/[facility] Phon e Number [facility] [address] [facility] A [id number] POCT (CLIA [id number]) POCT glucose PRN (05/14/2021 4:56 PM PDT) POCT Glucose, 202 (A) 65 - 99 mg/dL [facility] POCT (CLIA [id number]) POCT Glucose Test Note: Reference [facility] Comment Ranges revised HOSPITAL POCT September 24 (CLIA [id number]) 2018. Specimen Blood - Capillary blood (substance) Performing Organization Address City/[facility]/ZIP Code Phon e Number [place] [address] [facility] A [address] POCT (CLIA [id number]) POCT glucose PRN (05/14/2021 12:20 PM PDT) POCT Glucose, 118 (A) 65 - 99 mg/dL [facility] POCT (CLIA [id number]) POCT Glucose Test Note: Reference [facility] POCT September 24 (CLIA [id number]) 2018. Specimen Blood - Capillary blood (substance) Performing Organization Address [facility] Phon e Number [place] [address] [facility] A [address] POCT (CLIA [id number]) POCT glucose PRN (05/14/2021 8:33 AM PDT) POCT Glucose, 103 (A) 65 - 99 mg/dL [facility] POCT (CLIA [id number]) POCT Glucose Test Note: Reference [facility] revised HOSPITAL POCT September 24 (CLIA [id number]) 2018. Specimen Blood - Capillary blood (substance) Performing Organization Address [facility]/ZIP Code Phon e Number [place] [address] [facility] A [address] POCT (CLIA [id number]) POCT glucose PRN (05/14/2021 6:06 AM PDT) POCT Glucose, 89 65 - 99 mg/dL [facility] POCT (CLIA [id number]) POCT Glucose Test Note: Reference [facility] Comment Ranges revised HOSPITAL POCT September 24 (CLIA [id number]) 2018. Specimen Blood - Capillary blood (substance) Performing Organization Address City/[facility]/ZIP Code Phon e Number [facility] [address] [facility] A [address] POCT (CLIA [id number]) POCT glucose PRN (05/13/2021 8:01 PM PDT) POCT Glucose, 160 (A) 65 - 99 mg/dL [facility] POCT (CLIA [id number]) POCT Glucose Test Note: Reference [facility] Comment Ranges revised HOSPITAL POCT September 24, (CLIA [id number]) 2018. Specimen Blood - Capillary blood (substance) Performing Organization Address [facility] e Number [facility] [address] [facility] A [address] POCT (CLIA [id number]) POCT glucose PRN (05/13/2021 4:59 PM PDT) POCT Glucose, 94 65 - 99 mg/dL [facility] POCT (CLIA [id number]) POCT Glucose Test Note: Reference [facility] Comment Ranges revised HOSPITAL POCT September 24 (CLIA [id number]) 2018. Specimen Blood - Capillary blood (substance) Performing Organization Address City/[facility] Code Phon e [facility] [address] [facility] A [address] POCT (CLIA [id number]) Hold Green Top - PST LiHeparin (05/13/2021 8:19 AM PDT) Pathologist Sig nature Extra Tube Hold for [facility] add-ons.Comment: LAB Auto resulted. Specimen Blood - Venous blood (substance) Performing Organization Address [facility] e [facility] LAB [address] [facility] A [address] POCT glucose (05/13/2021 8:10 AM PDT) Pathologist Sig nature POCT Glucose, Blood 116 (A) 65 - 99 mg/dL [facility] POCT (CLIA [id number]) Specimen Blood - Capillary blood (substance) Performing Organization Address City/State/ZIP Code Phon e Number [facility] [address] [facility] [place] [address] POCT (CLIA [id number]) Complete blood count with diff (05/13/2021 8:09 AM PDT) Pathologist Sig nature WBC Auto 6.4 3.8 - 10.1 [facility] x10e3/uL HOSPITAL LAB RBC 3.70 (L) 3.90 - 5.20 [facility] x10e6/uL [facility]ITAL LAB Hemoglobin 9.3 (L) 12.0 - 15.6 [facility] g/dL HOSPITAL LAB Hematocrit 30.9 (L) 35.0 - 46.0 % [facility] LAB MCV 84 81 - 100 fL [facility] LAB MCH 25.1 (L) 27.0 - 35.0 pg [facility] LAB MCHC 30.1 (L) 32.0 - 37.0 [facility] g/dL [facility] LAB RDW 20.8 (H) 12.3 - 15.4 % [facility] LAB Platelets 222 150 - 400 [place] [id number]/uL [facility] LAB MPV 11.0 (H) 7.4 - 10.4 fL [facility] LAB NRBC % 0 0 /100 WBCs [facility] LAB Abs. NRBC 0.0 x10e3/uL [facility] LAB % Neutrophils 52 % [facility] LAB % Lymphocytes 35 % [facility] % Monocytes 9 % [facility] LAB % Eosinophils 2 % [facility] LAB % Basophils 1 % [facility] LAB Abs. Neutrophils 3.4 1.6 - 6.9 [facility] x10e3/uL HOSPITAL LAB Abs. Lymphocytes 2.3 1.1 - 4.8 [facility] x10e3/uL [facility] LAB Abs. Monocytes 0.6 0.0 - 1.0 [facility] x10e3/uL [facility]OSPITAL LAB Abs. Eosinophils 0.2 0.0 - 0.5 [facility] x10e3/uL [facility]OSPITAL LAB Abs. Basophils 0.0 0.0 - 0.4 [facility] x10e3/uL [facility]OSPITAL LAB Abs. Neutrophils 3,400.0 1,600.0-6,900.0 [facility] (Auto) /uL HOSPITAL LAB Specimen Blood - Venous blood (substance) Performing Organization Address [facility] Phon e [facility] LAB [address] [facility] A [id number] Magnesium (05/13/2021 8:09 AM PDT) Pathologist Sig nature Magnesium 1.8 1.6 - 2.6 mg/dL [facility] LA B Specimen Blood - Venous blood (substance) Performing Organization Address [facility] [address] [facility] A [address] Basic metabolic panel (05/13/2021 8:09 AM PDT) Pathologist Sig nature Sodium 134 134 - 144 [facility] mmol/L [facility] LAB Potassium 4.3 3.5 - 5.2 [facility] mmol/L [facility] LAB Chloride 99 97 - 108 mmol/L [facility] LAB CO2 26 18 - 29 mmol/L [facility] LAB Anion Gap 9 3 - 11 mmol/L [facility] LAB BUN 12.0 8.0 - 27.0 [facility] mg/dL [facility] LAB Creatinine 1.34 (H) 0.57 - 1.00 [facility] mg/dL [facility] LAB Glucose, Serum 117 (H) 65 - 99 mg/dL [facility] LAB Calcium 8.5 8.5 - 10.1 [facility] mg/dL [facility] LAB eGFR (CKD-EPI) 39 (L) >60 (CKD-EPI) [facility] mL/min/1.73 m2 HOSPITAL LAB BUN/Creatinine Ratio 9.0 7.0 - 24.0 [facility] LAB Specimen Blood - Venous blood (substance) Performing Organization Address [facility] [address] [facility] A [id number] POCT glucose PRN (05/12/2021 9:05 PM PDT) POCT Glucose, 250 (A) 65 - 99 mg/dL [facility] POCT (CLIA [id number]) POCT Glucose Test Note: Reference [facility] POCT September 24 (CLIA [id number]) 2018. Specimen Blood - Capillary blood (substance) Performing Organization Address City/[facility] Phon e Number [facility] [address] [facility] A [address] POCT (CLIA [id number]) POCT glucose PRN (05/12/2021 4:57 PM PDT) POCT Glucose, 173 (A) 65 - 99 mg/dL [facility] POCT (CLIA [id number]) POCT Glucose Test Note: Reference [facility] POCT September 24 (CLIA [id number]) 2018. Specimen Blood - Capillary blood (substance) Performing Organization Address [facility] Phon e Number [facility] [address] [facility] A [address] POCT (CLIA [id number]) POCT glucose PRN (05/12/2021 12:12 PM PDT) POCT Glucose, 201 (A) 65 - 99 mg/dL [facility] POCT (CLIA [id number]) POCT Glucose Test Note: Reference [facility] POCT September 24 (CLIA [id number]) 2018. Specimen Blood - Capillary blood (substance) Performing Organization Address City/[facility] Phon e Number [facility] [address] [facility] A [address] POCT (CLIA [id number]) POCT glucose PRN (05/12/2021 8:08 AM PDT) POCT Glucose, 138 (A) 65 - 99 mg/dL [facility] POCT (CLIA [id number]) POCT Glucose Test Note: Reference [facility] Comment Ranges revised HOSPITAL POCT September 24, (CLIA [id number]) 2018. Specimen Blood - Capillary blood (substance) Performing Organization Address [facility]/ZIP Code Phon e Richard [place] [address] [address] [facility] A [address] POCT (CLIA [id number]) Basic metabolic panel (05/12/2021 5:22 AM PDT) Pathologist Sig nature Sodium 136 134 - 144 [facility] mmol/L [facility] LAB Potassium 4.3 3.5 - 5.2 [facility] mmol/L [facility] LAB Chloride 103 97 - 108 mmol/L [facility] LAB CO2 26 18 - 29 mmol/L [facility] LAB Anion Gap 7 3 - 11 mmol/L [facility] LAB BUN 11.0 8.0 - 27.0 [facility] mg/dL [facility] LAB Creatinine 1.40 (H) 0.57 - 1.00 [facility] mg/dL [facility] LAB Glucose, Serum 129 (H) 65 - 99 mg/dL [facility] LAB Calcium 8.4 (L) 8.5 - 10.1 [facility] mg/dL [facility] LAB eGFR (CKD-EPI) 37 (L) >60 (CKD-EPI) [facility] mL/min/1.73 m2 [facility] LAB BUN/Creatinine Ratio 7.9 7.0 - 24.0 [facility] LAB Specimen Blood - Venous blood (substance) Performing Organization Address [facility] Phon e [facility] LAB [address] [facility] A [address] Hold Lav Top - EDTA (05/12/2021 5:22 AM PDT) Pathologist Sig nature Extra Tube Hold for [facility] add-ons.Comment: LAB Auto resulted. Specimen Blood - Venous blood (substance) Performing Organization Address [facility] Code Phon e Richard [facility] [address] [facility] A [address] Magnesium (05/12/2021 5:22 AM PDT) Pathologist Sig nature Magnesium 1.5 (L) 1.6 - 2.6 mg/dL [facility] LA B Specimen Blood - Venous blood (substance) Performing Organization Address [facility] Phon e [facility] LAB [address] [facility] A [address] POCT glucose PRN (05/11/2021 9:22 PM PDT) POCT Glucose, 218 (A) 65 - 99 mg/dL [facility] POCT (CLIA [id number]) POCT Glucose Test Note: Reference [facility] Comment Ranges revised HOSPITAL POCT September 24 (CLIA [id number]) 2018. Specimen Blood - Capillary blood (substance) Performing Organization Address [facility] e [facility] [address] [facility] A [address] POCT (CLIA [id number]) POCT glucose PRN (05/11/2021 5:50 PM PDT) POCT Glucose, 240 (A) 65 - 99 mg/dL [facility] POCT (CLIA [id number]) POCT Glucose Test Note: Reference [facility] Ranges revised HOSPITAL POCT September 24 (CLIA [id number]) 2018. Specimen Blood - Capillary blood (substance) Performing Organization Address [facility] Phon e Number [facility] [address] [facility] [address] A [address] POCT (CLIA [id number]) POCT glucose PRN (05/11/2021 12:43 PM PDT) POCT Glucose, 194 (A) 65 - 99 mg/dL [facility] POCT (CLIA [id number]) POCT Glucose Test Note: Reference [facility] Ranges revised HOSPITAL POCT September 24 (CLIA [id number]) 2018. Specimen Blood - Capillary blood (substance) Performing Organization Address [facility] Phon e Number [facility] [address] [facility] A [id number] POCT (CLIA [id number]) POCT glucose PRN (05/11/2021 8:36 AM PDT) POCT Glucose, 176 (A) 65 - 99 mg/dL [facility] POCT (CLIA [id number]) POCT Glucose Test Note: Reference [facility] Comment Ranges revised HOSPITAL POCT September 24, (CLIA [id number]) 2018. Specimen Blood - Capillary blood (substance) Performing Organization Address City/State/ZIP Code Phon e Number [facility] [address] [facility] A [id number] POCT (CLIA [id number]) Complete blood count with diff (05/11/2021 5:50 AM PDT) Pathologist Sig nature WBC Auto 6.3 3.8 - 10.1 [facility] x10e3/uL [facility] LAB RBC 3.37 (L) 3.90 - 5.20 [facility] x10e6/uL [facility] LAB Hemoglobin 8.5 (L) 12.0 - 15.6 [facility] g/dL [facility] LAB Hematocrit 29.5 (L) 35.0 - 46.0 % [facility] LAB MCV 88 81 - 100 fL [facility] LAB MCH 25.2 (L) 27.0 - 35.0 pg [facility] LAB MCHC 28.8 (L) 32.0 - 37.0 [facility] g/dL [facility] LAB RDW 21.6 (H) 12.3 - 15.4 % [facility] LAB Platelets 217 150 - 400 [facility] x10e3/uL [facility] LAB MPV 10.8 (H) 7.4 - 10.4 [facility] LAB NRBC % 0 0 /100 WBCs [facility] LAB Abs. NRBC 0.0 x10e3/uL [facility] LAB % Neutrophils 59 % [facility] LAB % Lymphocytes 29 % [facility] LAB % Monocytes 10 % [facility] LAB % Eosinophils 2 % [facility] LAB % Basophils 0 % [facility] LAB Abs. Neutrophils 3.7 1.6 - 6.9 [facility] x10e3/uL [facility] LAB Abs. Lymphocytes 1.8 1.1 - 4.8 [facility] x10e3/uL [facility]OSPITAL LAB Abs. Monocytes 0.6 0.0 - 1.0 [facility] x10e3/uL [facility] LAB Abs. Eosinophils 0.1 0.0 - 0.5 [facility] x10e3/uL [facility]OSPITAL LAB Abs. Basophils 0.0 0.0 - 0.4 [facility] x10e3/uL [facility] LAB Abs. Neutrophils 3,700.0 1,600.0-6,900.0 [facility] (Auto) /[facility] LAB Specimen Blood - Venous blood (substance) Performing Organization Address [facility] [address] [facility] [address] Magnesium (05/11/2021 5:50 AM PDT) Pathologist Sig nature Magnesium 1.7 1.6 - 2.6 mg/dL [facility] LA B Specimen Blood - Venous blood (substance) Performing Organization Address [facility] [address] [facility] [address] Basic metabolic panel (05/11/2021 5:50 AM PDT) Pathologist Sig nature Sodium 138 134 - 144 [facility] mmol/L [facility] LAB Potassium 4.0 3.5 - 5.2 [facility] mmol/L [facility] LAB Chloride 103 97 - 108 mmol/L [facility] LAB CO2 28 18 - 29 mmol/L [facility] LAB Anion Gap 7 3 - 11 mmol/L [facility] LAB BUN 11.0 8.0 - 27.0 [facility] mg/dL [facility] LAB Creatinine 1.56 (H) 0.57 - 1.00 [facility] mg/dL [facility] LAB Glucose, Serum 203 (H) 65 - 99 mg/dL [facility] LAB Calcium 8.2 (L) 8.5 - 10.1 [facility] mg/dL [facility] LAB eGFR (CKD-EPI) 33 (L) >60 (CKD-EPI) [facility] mL/min/1.73 m2 HOSPITAL LAB BUN/Creatinine Ratio 7.1 7.0 - 24.0 [facility] LAB Specimen Blood - Venous blood (substance) Performing Organization Address [facility]on [facility] [address] [facility] A [id number] Albumin (05/11/2021 5:50 AM PDT) Pathologist Sig nature Albumin 2.6 (L) 3.4 - 5.0 g/dL [facility] LAB Specimen Blood - Venous blood (substance) Performing Organization Address [facility]on [facility] [address] [facility] A [address] POCT glucose (05/10/2021 8:34 PM PDT) POCT Glucose, 205 (A) 65 - 99 mg/dL [facility] POCT (CLIA [id number]) POCT Glucose Test Note: Reference [facility] Comment Ranges revised HOSPITAL POCT September 24 (CLIA [id number]) 2018. Specimen Blood - Capillary blood (substance) Performing Organization Address [facility] Phon e Number [address] A [address] POCT (CLIA [id number]) POCT glucose PRN (05/10/2021 5:45 PM PDT) POCT Glucose, 256 (A) 65 - 99 mg/dL [facility] POCT (CLIA [id number]) POCT Glucose Test Note: Reference [facility] CENTER Comment Ranges revised HOSPITAL POCT September 24 (CLIA [id number]) 2018. Specimen Blood - Capillary blood (substance) Performing Organization Address [facility] Phon e [address] A [address] POCT (CLIA [id number]) POCT glucose (05/10/2021 11:44 AM PDT) POCT Glucose, Blood 151 (A) 65 - 99 mg/dL POCT Glucose Test Note: Reference Comment Ranges revised September 24, 2019. Specimen Blood - Capillary blood (substance) POCT glucose (05/10/2021 8:25 AM PDT) [facility] POCT Glucose, Blood 90 65 - 99 mg/dL POCT Glucose Test Note: Reference Comment Ranges revised September 24, 2019. Specimen Blood - Capillary blood (substance) Albumin (05/10/2021 6:40 AM PDT) [facility] Albumin 3.0 (L) 3.4 - 5.0 g/dL [facility] Specimen Blood - Venous blood (substance) Performing Organization Address City/State/ZIP Code Phon e Number [facility] [address] [facility] [address] [place] [address] Complete blood count with diff (05/10/2021 6:40 AM PDT) [facility] WBC Auto 7.7 3.8 - 10.1 [facility] x10e3/uL [facility] RBC 3.54 (L) 3.90 - 5.20 [facility] x10e6/uL HOSPITAL LAB Hemoglobin 8.9 (L) 12.0 - 15.6 [facility] g/dL [facility] Hematocrit 30.8 (L) 35.0 - 46.0 % [facility] MCV 87 81 - 100 fL [facility] MCH 25.1 (L) 27.0 - 35.0 pg [facility] MCHC 28.9 (L) 32.0 - 37.0 [facility] g/dL [facility] RDW 21.7 (H) 12.3 - 15.4 % [facility] Platelets 221 150 - 400 [facility] x10e3/uL HOSPITAL LAB MPV 11.4 (H) 7.4 - 10.4 fL [facility] NRBC % 0 0 /100 WBCs [facility] Abs. NRBC 0.0 x10e3/uL [facility] % Neutrophils 63 % [facility] % Lymphocytes 25 % [facility] % Monocytes 10 % [facility] % Eosinophils 2 % [facility] % Basophils 0 % [facility] Abs. Neutrophils 4.8 1.6 - 6.9 [facility] x10e3/uL [facility] Abs. Lymphocytes 1.9 1.1 - 4.8 [facility] x10e3/uL [facility] Abs. Monocytes 0.7 0.0 - 1.0 [facility] x10e3/uL [facility] Abs. Eosinophils 0.2 0.0 - 0.5 [facility] x10e3/uL [facility] Abs. Basophils 0.0 0.0 - 0.4 [place] [id number]/[facility] LAB Abs. Neutrophils 4,800.0 1,600.0-6,900.0 [facility] (Auto) /[facility] Specimen Blood - Venous blood (substance) Performing Organization Address [facility] [address] [facility] [phone] Magnesium (05/10/2021 6:40 AM PDT) Pathologist Sig nature Magnesium 1.9 1.6 - 2.6 mg/dL [facility] B Specimen Blood - Venous blood (substance) Performing Organization Address [facility] [address] [place] [address] [phone] Basic metabolic panel (05/10/2021 6:40 AM PDT) Pathologist Sig nature Sodium 141 134 - 144 [facility] mmol/L [facility] Potassium 3.9 3.5 - 5.2 [facility] mmol/L [facility] Chloride 103 97 - 108 mmol/L [facility] CO2 26 18 - 29 mmol/L [facility] Anion Gap 12 (H) 3 - 11 mmol/L [facility] BUN 11.0 8.0 - 27.0 [facility] mg/dL [facility] Creatinine 1.45 (H) 0.57 - 1.00 [facility] mg/dL [facility] Glucose, Serum 96 65 - 99 mg/dL [facility] Calcium 8.3 (L) 8.5 - 10.1 [facility] mg/dL [facility] eGFR (CKD-EPI) 36 (L) >60 (CKD-EPI) [facility] mL/min/1.73 m2 HOSPITAL LAB BUN/Creatinine Ratio 7.6 7.0 - 24.0 [facility] Specimen Blood - Venous blood (substance) Performing Organization Address [facility] [address] [facility] A [address] POCT glucose PRN (05/09/2021 8:40 PM PDT) [facility] POCT Glucose, 185 (A) 65 - 99 mg/dL [facility] POCT (CLIA [id number]) POCT Glucose Test Note: Reference [facility] Comment Ranges revised HOSPITAL POCT September 24 (CLIA [id number]) 2018. Specimen Blood - Capillary blood (substance) Performing Organization Address [facility] [address] [facility] A [address] POCT (CLIA [id number]) POCT glucose (05/09/2021 6:06 PM PDT) [facility] POCT Glucose, Blood 156 (A) 65 - 99 mg/dL POCT Glucose Test Note: Reference Comment Ranges revised September 24, 2019. Specimen Blood - Capillary blood (substance) POCT glucose (05/09/2021 12:24 PM PDT) [facility] POCT Glucose, Blood 175 (A) 65 - 99 mg/dL POCT Glucose Test Note: Reference Comment Ranges revised September 24, 2019. Specimen Blood - Capillary blood (substance) POCT glucose (05/09/2021 8:24 AM PDT) [facility] POCT Glucose, Blood 95 65 - 99 mg/dL POCT Glucose Test Note: Reference Comment Ranges revised September 24, 2019. Specimen Blood - Capillary blood (substance) Complete blood count with diff (05/09/2021 6:57 AM PDT) [facility] WBC Auto 6.1 3.8 - 10.1 [facility] x10e3/uL HOSPITAL LAB RBC 3.35 (L) 3.90 - 5.20 [facility] x10e6/uL HOSPITAL LAB Hemoglobin 8.3 (L) 12.0 - 15.6 [facility] g/dL HOSPITAL LAB Hematocrit 28.6 (L) 35.0 - 46.0 % [facility] MCV 85 81 - 100 fL [facility] MCH 24.8 (L) 27.0 - 35.0 pg [facility] MCHC 29.0 (L) 32.0 - 37.0 [facility] g/dL [facility] RDW 21.8 (H) 12.3 - 15.4 % [facility] Platelets 214 150 - 400 [facility] x10e3/[facility] MPV 10.3 7.4 - 10.4 fL [facility] NRBC % 0 0 /100 WBCs [facility] Abs. NRBC 0.0 x10e3/uL [facility] % Neutrophils 64 % [facility] % Lymphocytes 23 % [facility] % Monocytes 10 % [facility] % Eosinophils 3 % [facility] % Basophils 1 % [facility] Abs. Neutrophils 3.9 1.6 - 6.9 [facility] x10e3/[facility] Abs. Lymphocytes 1.4 1.1 - 4.8 [place] [id number] LAB Abs. Monocytes 0.6 0.0 - 1.0 [place] [id number] Abs. Eosinophils 0.2 0.0 - 0.5 [place] [id number] Abs. Basophils 0.0 0.0 - 0.4 [place] [id number]/[facility] Abs. Neutrophils 3,900.0 1,600.0-6,900.0 [facility] (Auto) [facility] Specimen Blood - Venous blood (substance) Performing Organization Address City/State/ZIP Code Phon e Number [facility] [address] [facility] [place] [address] Magnesium (05/09/2021 6:57 AM PDT) Pathologist Sig nature Magnesium 1.7 1.6 - 2.6 mg/dL [facility] [place] B Specimen Blood - Venous blood (substance) Performing Organization Address [facility] Phon e [facility] [address] [facility] A [address] Basic metabolic panel (05/09/2021 6:57 AM PDT) Pathologist Sig nature Sodium 143 134 - 144 [facility] mmol/L [facility] Potassium 4.1 3.5 - 5.2 [facility] mmol/L [facility] Chloride 105 97 - 108 mmol/L [facility] CO2 30 (H) 18 - 29 mmol/L [facility] Anion Gap 8 3 - 11 mmol/L [facility] BUN 12.0 8.0 - 27.0 [facility] mg/dL [facility] Creatinine 1.51 (H) 0.57 - 1.00 [facility] mg/dL [facility] Glucose, Serum 96 65 - 99 mg/dL [facility] Calcium 8.4 (L) 8.5 - 10.1 [facility] mg/dL [facility] eGFR (CKD-EPI) 34 (L) >60 (CKD-EPI) [facility] mL/min/1.73 m2 HOSPITAL LAB BUN/Creatinine Ratio 7.9 7.0 - 24.0 [facility] Specimen Blood - Venous blood (substance) Performing Organization Address [facility] Phon [facility] [address] [facility] A [address] POCT glucose PRN (05/08/2021 8:01 PM PDT) POCT Glucose, 192 (A) 65 - 99 mg/dL [facility] POCT (CLIA [id number]) POCT Glucose Test Note: Reference [facility] Comment [facility] revised HOSPITAL POCT September 24, (CLIA [id number]) 2018. Specimen Blood - Capillary blood (substance) Performing Organization Address [facility] Phon e Number [place] [address] [facility] A [address] POCT (CLIA [id number]) POCT glucose (05/08/2021 5:29 PM PDT) POCT Glucose, 130 (A) 65 - 99 mg/dL [facility] POCT (CLIA [id number]) POCT Glucose Test Note: Reference [facility] revised [facility] POCT September 24, (CLIA [id number]) 2018. Specimen Blood - Capillary blood (substance) Performing Organization Address City/[facility] Code Phon e Number [place] [id number] [address] [facility] A [address] POCT (CLIA [id number]) POCT glucose (05/08/2021 12:00 PM PDT) [facility] POCT Glucose, 130 (A) 65 - 99 mg/dL [facility] POCT (CLIA [id number]) POCT Glucose Test Note: Reference [facility] POCT September 24 (CLIA [id number]) 2018. Specimen Blood - Capillary blood (substance) Performing Organization Address [facility] Phon e Number [place] [address] [address] [facility] A [address] POCT (CLIA [id number]) POCT glucose (05/08/2021 7:30 AM PDT) [facility] POCT Glucose, 156 (A) 65 - 99 mg/dL [facility] POCT (CLIA [id number]) POCT Glucose Test Note: Reference [facility] POCT September 24 (CLIA [id number]) 2018. Specimen Blood - Capillary blood (substance) Performing Organization Address City/[facility] Phon e Number [place] [address] [facility] A [address] POCT (CLIA [id number]) Complete blood count with diff (05/08/2021 6:56 AM PDT) Pathologist [facility] nature WBC Auto 7.9 3.8 - 10.1 [facility] x10e3/uL HOSPITAL LAB RBC 3.19 (L) 3.90 - 5.20 [facility] x10e6/[facility] Hemoglobin 8.0 (L) 12.0 - 15.6 [facility] g/dL [facility] Hematocrit 27.3 (L) 35.0 - 46.0 % [facility] MCV 86 81 - 100 fL [facility] MCH 25.1 (L) 27.0 - 35.0 pg [facility] MCHC 29.3 (L) 32.0 - 37.0 [facility] g/dL [facility] RDW 22.0 (H) 12.3 - 15.4 % [facility] Platelets 224 150 - 400 [place] [id number] MPV 10.7 (H) 7.4 - 10.4 fL [facility] NRBC % 0 0 /100 WBCs [facility] Abs. NRBC 0.0 x10e3/uL [facility] % Neutrophils 67 % [facility] % Lymphocytes 23 % [facility] % Monocytes 7 % [facility] % Eosinophils 2 % [facility] % Basophils 0 % [facility] Abs. Neutrophils 5.3 1.6 - 6.9 [place] [id number] Abs. Lymphocytes 1.8 1.1 - 4.8 [place] [id number] Abs. Monocytes 0.6 0.0 - 1.0 [place] [id number] Abs. Eosinophils 0.2 0.0 - 0.5 [place] [id number] Abs. Basophils 0.0 0.0 - 0.4 [place] [id number] Abs. Neutrophils 5,300.0 1,600.0-6,900.0 [facility] (Auto) [facility] Specimen Blood - Venous blood (substance) Performing Organization Address City/State/ZIP Code Phon e Number [facility] [address] [facility] [place] [address] Magnesium (05/08/2021 6:56 AM PDT) Pathologist Sig nature Magnesium 1.7 1.6 - 2.6 mg/dL [facility] [place] B Specimen Blood - Venous blood (substance) Performing Organization Address [facility] Phon e [facility] [address] [facility] A [phone] Basic metabolic panel (05/08/2021 6:56 AM PDT) Pathologist Sig nature Sodium 142 134 - 144 [facility] mmol/L [facility] Potassium 4.0 3.5 - 5.2 [facility] mmol/L [facility] Chloride 106 97 - 108 mmol/L [facility] CO2 28 18 - 29 mmol/L [facility] Anion Gap 8 3 - 11 mmol/L [facility] BUN 12.0 8.0 - 27.0 [facility] mg/dL [facility] Creatinine 1.45 (H) 0.57 - 1.00 [facility] mg/dL [facility] Glucose, Serum 141 (H) 65 - 99 mg/dL [facility] Calcium 8.3 (L) 8.5 - 10.1 [facility] mg/dL [facility] eGFR (CKD-EPI) 36 (L) >60 (CKD-EPI) [facility] mL/min/1.73 m2 [facility] BUN/Creatinine Ratio 8.3 7.0 - 24.0 [facility] Specimen Blood - Venous blood (substance) Performing Organization Address [facility]/ZIP Code Phon [facility] [address] [facility] A [id number] POCT glucose (05/07/2021 5:09 PM PDT) POCT Glucose, 206 (A) 65 - 99 mg/dL [facility] POCT (CLIA [id number]) POCT Glucose Test Note: Reference [facility] revised HOSPITAL POCT September 24, (CLIA [id number]) 2018. Specimen Blood - Capillary blood (substance) Performing Organization Address [facility] Phon e Number [facility] [address] [facility] A [id number] POCT (CLIA [id number]) POCT glucose (05/07/2021 12:00 PM PDT) POCT Glucose, 269 (A) 65 - 99 mg/dL [facility] POCT (CLIA [id number]) POCT Glucose Test Note: Reference [facility] Comment Ranges revised HOSPITAL POCT September 24, (CLIA [id number]) 2019. Specimen Blood - Capillary blood (substance) Performing Organization Address [facility] Phon e Number [place] [phone] [address] [facility] A [address] POCT (CLIA [id number]) Hold Green Top - PST LiHeparin (05/07/2021 10:11 AM PDT) Pathologist Sig nature Extra Tube Hold for [facility] add-ons.Comment: LAB Auto resulted. Specimen Blood - Venous blood (substance) Performing Organization Address [facility] A [address] Complete blood count with diff (05/07/2021 9:52 AM PDT) [facility] WBC Auto 7.4 3.8 - 10.1 [facility] x10e3/uL HOSPITAL LAB RBC 3.33 (L) 3.90 - 5.20 [facility] x10e6/uL HOSPITAL LAB Hemoglobin 8.5 (L) 12.0 - 15.6 [facility] g/dL [facility] Hematocrit 29.2 (L) 35.0 - 46.0 % [facility] MCV 88 81 - 100 fL [facility] MCH 25.5 (L) 27.0 - 35.0 pg [facility] MCHC 29.1 (L) 32.0 - 37.0 [facility] g/dL [facility] RDW 22.5 (H) 12.3 - 15.4 % [facility] Platelets 252 150 - 400 [facility] x10e3/uL HOSPITAL LAB MPV 11.3 (H) 7.4 - 10.4 fL [facility] NRBC % 0 0 /100 WBCs [facility] Abs. NRBC 0.0 x10e3/uL [facility] % Neutrophils 70 % [facility] % Lymphocytes 19 % [facility] % Monocytes 8 % [facility] % Eosinophils 2 % [facility] % Basophils 0 % [facility] Abs. Neutrophils 5.2 1.6 - 6.9 [facility] x10e3/uL HOSPITAL LAB Abs. Lymphocytes 1.4 1.1 - 4.8 [facility] x10e3/uL HOSPITAL LAB Abs. Monocytes 0.6 0.0 - 1.0 [facility] x10e3/uL HOSPITAL LAB Abs. Eosinophils 0.1 0.0 - 0.5 [facility] x10e3/uL HOSPITAL LAB Abs. Basophils 0.0 0.0 - 0.4 [facility] x10e3/uL HOSPITAL LAB Abs. Neutrophils 5,200.0 1,600.0-6,900.0 [facility] (Auto) /[facility] LAB Specimen Blood - Venous blood (substance) Performing Organization Address [facility] e [facility] LAB [address] [facility] A [address] POCT glucose PRN (05/07/2021 9:13 AM PDT) POCT Glucose, 196 (A) 65 - 99 mg/dL [facility] POCT (CLIA [id number]) POCT Glucose Test Note: Reference [facility] POCT September 24 (CLIA [id number]) 2018. Specimen Blood - Capillary blood (substance) Performing Organization Address City/[facility] Phon e Number [facility] [address] [facility] A [phone] POCT (CLIA [id number]) POCT glucose PRN (05/07/2021 8:00 AM PDT) POCT Glucose, 137 (A) 65 - 99 mg/dL [facility] POCT (CLIA [id number]) POCT Glucose Test Note: Reference [facility] Comment Ranges [facility] HOSPITAL POCT September 24, (CLIA [id number]) 2018. Specimen Blood - Capillary blood (substance) Performing Organization Address [facility]/ZIP [facility] Phon e Number [facility] [address] [facility] A [address] POCT (CLIA [id number]) Magnesium (05/07/2021 6:07 AM PDT) Pathologist Sig nature Magnesium 2.2 1.6 - 2.6 mg/dL [facility] [place] B Specimen Blood - Venous blood (substance) Performing Organization Address [facility]/ZIP [facility] Phon e Number [facility] [address] [facility] A [id number] Hemoglobin and hematocrit (05/07/2021 6:07 AM PDT) Pathologist Sig nature Hemoglobin 7.9 (L) 12.0 - 15.6 g/dL [facility] L AB Hematocrit 26.8 (L) 35.0 - 46.0 % [facility] Specimen Blood - Venous blood (substance) Performing Organization Address [facility] Phon e Number [facility] [address] [facility] A [id number] Basic metabolic panel (05/07/2021 6:07 AM PDT) Pathologist Sig nature Sodium 142 134 - 144 [facility] mmol/L [facility] Potassium 4.4 3.5 - 5.2 [facility] mmol/L [facility] Chloride 105 97 - 108 mmol/L [facility] CO2 29 18 - 29 mmol/L [facility] Anion Gap 8 3 - 11 mmol/L [facility] BUN 13.0 8.0 - 27.0 [facility] mg/dL [facility] Creatinine 1.51 (H) 0.57 - 1.00 [facility] mg/dL [facility] Glucose, Serum 134 (H) 65 - 99 mg/dL [facility] Calcium 8.4 (L) 8.5 - 10.1 [facility] mg/dL HOSPITAL LAB eGFR (CKD-EPI) 34 (L) >60 (CKD-EPI) [facility] mL/min/1.73 m2 HOSPITAL LAB BUN/Creatinine Ratio 8.6 7.0 - 24.0 [facility] Specimen Blood - Venous blood (substance) Performing Organization Address [facility] Phon [facility] [address] [facility] A [address] Culture, urine (05/07/2021 3:52 AM PDT) Pathologist Sig nature Urine Culture >100,000 CFU/ml [facility] LAB Urine Culture 25,000-50,000 CFU/ml [facility] urogenital [facility] LAB ubd Specimen Urine - Urine specimen obtained by clean catch procedure (specimen) Organism Antibiotic Method Susceptibility [place] alvei Amikacin FERNANDO <=2 ug/ml: Susce ptible [place] [facility] Ampicillin FERNANDO >=32 ug/ml: Resi stant [place] [facility] Ampicillin + Sulbactam FERNANDO >=32 ug/m l: Resistant [place] Cefoxitin FERNANDO >=64 ug/ml: Resi stant [place] Ceftazidime FERNANDO 4 ug/ml: Suscept ible [place] Ceftriaxone FERNANDO Intermediate [place] Ciprofloxacin FERNANDO <=0.25 ug/ml: Hinojosa sceptible [place] [facility] Gentamicin FERNANDO <=1 ug/ml: Susce ptible [place] Meropenem FERNANDO <=0.25 ug/ml: Hinojosa sceptible [facility] [facility] Nitrofurantoin FERNANDO <=16 ug/ml: Susc eptible [place] [facility] Tobramycin FERNANDO <=1 ug/ml: Susce ptible [place] [facility] Trimethoprim + Sulfamethoxazole FERNANDO <=20 ug/ml: Susceptible Performing Organization Address [facility] Phon [facility] [address] [facility] A [address] Urine microscopic (05/07/2021 3:52 AM PDT) WBC, UA 11-50 (A) 0 - 5 /HPF [facility] RBC, UA 3-10 (A) 0 - 2 /HPF [facility] Bacteria, UA Moderate (A) None Seen /HPF [facility] Squamous Epithelial Occasional None seen - [facility] Cells, Urine Few /HPF HOSPITAL LAB Reflex to Urine Yes [facility] LAB Specimen Urine - Urine specimen obtained by clean catch procedure (specimen) Performing Organization Address [facility] Phon e Number [facility] [address] [facility] A [address] Urinalysis (dip only) (05/07/2021 3:52 AM PDT) Color, UA Yellow Yellow [facility] Clarity, UA Turbid (A) Clear [facility] Specific [place], UA 1.025 1.010 - 1.030 [facility] pH, UA 6.0 5.0 - 8.0 pH [facility] Leukocytes, UA Large (A) Negative [facility] Nitrite, UA Negative Negative [facility] Protein, UA 100 (A) Negative mg/dL [facility] Glucose, UA Negative Negative mg/dL [facility] Ketones, UA Negative Negative mg/dL [facility] Urobilinogen, UA 0.2 (Normal) 0.2 ? [facility] 1.0 EU/dL [facility] Bilirubin, UA Negative Negative [facility] Blood/Hemoglobin, UA Moderate (A) Negative [facility] Reflex to Urine Yes [facility] Microscopic [facility] Reflex to Urine Yes [facility] LAB Reflex to Ictotest, No [facility] Urine [facility] Specimen Urine - Urine specimen obtained by clean catch procedure (specimen) Performing Organization Address [facility] Phon e Number [facility] [address] A [address] POCT glucose PRN (05/06/2021 9:08 PM PDT) POCT Glucose, 262 (A) 65 - 99 mg/dL [facility] POCT (CLIA [id number]) POCT Glucose Test Note: Reference [facility] Comment Ranges revised HOSPITAL POCT September 24, (CLIA [id number]) 2018. Specimen Blood - Capillary blood (substance) Performing Organization Address [facility]/ZIP Code Phon e Number [facility] [address] A [address] POCT (CLIA [id number]) POCT glucose PRN (05/06/2021 12:57 PM PDT) POCT Glucose, 100 (A) 65 - 99 mg/dL [facility] POCT (CLIA [id number]) POCT Glucose Test Note: Reference [facility] Ranges revised HOSPITAL POCT September 24, (CLIA [id number]) 2018. Specimen Blood - Capillary blood (substance) Performing Organization Address [facility] Phon e Number [facility] [address] A [address] POCT (CLIA [id number]) POCT glucose PRN (05/06/2021 8:32 AM PDT) Pathologist [facility] POCT Glucose, 77 65 - 99 mg/dL [facility] POCT (CLIA [id number]) POCT Glucose Test Note: Reference [facility] revised HOSPITAL POCT September 24 (CLIA [id number]) 2018. Specimen Blood - Capillary blood (substance) Performing Organization Address City/[facility] Code Phon e [facility] [address] A [address] POCT (CLIA [id number]) Magnesium (05/06/2021 6:15 AM PDT) Pathologist [facility] nature Magnesium 1.8 1.6 - 2.6 mg/dL [facility] B Specimen Blood - Venous blood (substance) Performing Organization Address [facility] [address] A [id number] Hemoglobin and hematocrit (05/06/2021 6:15 AM PDT) Pathologist Sig nature Hemoglobin 9.4 (L) 12.0 - 15.6 g/dL [facility] AB Hematocrit 31.3 (L) 35.0 - 46.0 % [facility] Specimen Blood - Venous blood (substance) Performing Organization Address [facility] Phon e [facility] [address] A [id number] Basic metabolic panel (05/06/2021 6:15 AM PDT) Pathologist Sig nature Sodium 143 134 - 144 [facility] mmol/L [facility] Potassium 3.1 (L) 3.5 - 5.2 [facility] mmol/L [facility] Chloride 104 97 - 108 mmol/L [facility] CO2 30 (H) 18 - 29 mmol/L [facility] Anion Gap 9 3 - 11 mmol/L [facility] BUN 12.0 8.0 - 27.0 [facility] mg/dL [facility] Creatinine 1.43 (H) 0.57 - 1.00 [facility] mg/dL [facility] Glucose, Serum 70 65 - 99 mg/dL [facility] Calcium 8.7 8.5 - 10.1 [facility] mg/dL [facility] eGFR (CKD-EPI) 36 (L) >60 (CKD-EPI) [facility] mL/min/1.73 m2 [facility] BUN/Creatinine Ratio 8.4 7.0 - 24.0 [facility] Specimen Blood - Venous blood (substance) Performing Organization Address [facility] Phon e [facility] [address] A [id number] POCT glucose PRN (05/05/2021 8:07 PM PDT) POCT Glucose, 118 (A) 65 - 99 mg/dL [facility] POCT (CLIA [id number]) POCT Glucose Test Note: Reference [facility] Comment Ranges revised HOSPITAL POCT September 24 (CLIA [id number]) 2018. Specimen Blood - Capillary blood (substance) Performing Organization Address [facility] Phon e Number [facility] [address] A [phone] POCT (CLIA [id number]) Culture, urine (05/05/2021 5:44 PM PDT) Pathologist Sig nature Urine Culture >100,000 CFU/ml [facility] LAB Specimen Urine - Urine specimen obtained by clean catch procedure (specimen) Organism Antibiotic Method Susceptibility Habrien alvei Amikacin FERNANDO <=2 ug/ml: Susce ptible Hafnia alvei Ampicillin FERNANDO >=32 ug/ml: Resi stant Habrien alvei Ampicillin + Sulbactam FERNANDO >=32 ug/m l: Resistant Hafnia alvei Cefoxitin FERNANDO >=64 ug/ml: Resi stant Habrien alvei Ceftazidime EFRNANDO 4 ug/ml: Suscept ible Apollo alvei Ceftriaxone FERNANDO Intermediate Hania alvei Ciprofloxacin FERNANDO <=0.25 ug/ml: Hinojosa sceptible Ulisesnia alvei Gentamicin FERNANDO <=1 ug/ml: Susce ptible Brienia alvei Meropenem FERNANDO <=0.25 ug/ml: Hinojosa sceptible Brienia alvei Nitrofurantoin FERNANDO 32 ug/ml: Suscep tible Apollo alvei Tobramycin FERNANDO <=1 ug/ml: Susce ptible Brienia alvei Trimethoprim + Sulfamethoxazole FERNANDO <=20 ug/ml: Susceptible Performing Organization Address City/[facility] Code [facility] [address] [place] [address] A [address] Urine microscopic (05/05/2021 5:44 PM PDT) WBC, UA 11-50 (A) 0 - 5 /HPF [facility] RBC, UA None Seen 0 - 2 /HPF [facility] Bacteria, UA Many (A) None Seen /HPF [facility] Squamous Epithelial Occasional None seen - Few [facility] Cells, Urine /HPF HOSPITAL LAB Reflex to Urine Yes [facility] LAB Specimen Urine - Urine specimen obtained by clean catch procedure (specimen) Performing Organization Address City/[facility] [address] A [address] Urinalysis (dip only) (05/05/2021 5:44 PM PDT) Color, UA Yellow Yellow [facility] Clarity, UA Cloudy (A) Clear [facility] Specific [place], UA 1.015 1.010 - 1.030 [facility] pH, UA 6.0 5.0 - 8.0 pH [facility] Leukocytes, UA Moderate (A) Negative [facility] Nitrite, UA POSITIVE (A) Negative [facility] Protein, UA 100 (A) Negative mg/dL [facility] Glucose, UA Negative Negative mg/dL [facility] Ketones, UA Negative Negative mg/dL [facility] Urobilinogen, UA 0.2 (Normal) 0.2 ? [facility] 1.0 EU/dL [facility] Bilirubin, UA Negative Negative [facility] Blood/Hemoglobin, UA Small (A) Negative [facility] Reflex to Urine Yes [facility] Microscopic [facility] Reflex to Urine Yes [facility] Culture [facility] Reflex to Ictotest, No [facility] Specimen Urine - Urine specimen obtained by clean catch procedure (specimen) Performing Organization Address [facility] A [phone] Protein creatinine ratio, urine (05/05/2021 5:44 PM PDT) Urine Random Total 65.00 (H) 0.00 - 15.00 [facility] Protein mg/dL [facility] Urine Creatinine 54.0 15.0 - 278.0 [facility] mg/dL [facility] Protein/Creatinine 1,203.70 (H) <200.00 mg/g [facility] U[facility] Specimen Urine - Urine specimen obtained by clean catch procedure (specimen) Performing Organization Address [facility] [address] [facility] A [phone] POCT glucose (05/05/2021 5:40 PM PDT) POCT Glucose, 164 (A) 65 - 99 mg/dL [facility] POCT (CLIA [id number]) POCT Glucose Test Note: Reference [facility] Comment Ranges revised HOSPITAL POCT September 24 (CLIA [id number]) 2018. Specimen Blood - Capillary blood (substance) Performing Organization Address [facility] Phon e [place] [address] A [address] POCT (CLIA [id number]) POCT glucose (05/05/2021 8:20 AM PDT) POCT Glucose, 174 (A) 65 - 99 mg/dL [facility] POCT (CLIA [id number]) POCT Glucose Test Note: Reference [facility] Comment Ranges revised HOSPITAL POCT September 24 (CLIA [id number]) 2018. Specimen Blood - Capillary blood (substance) Performing Organization Address [facility] e [place] [address] [facility] A [address] POCT (CLIA [id number]) Magnesium (05/05/2021 6:36 AM PDT) Pathologist Sig nature Magnesium 1.5 (L) 1.6 - 2.6 mg/dL [facility] B Specimen Blood - Venous blood (substance) Performing Organization Address [facility] [address] A [phone] Hemoglobin and hematocrit (05/05/2021 6:36 AM PDT) Pathologist Sig nature Hemoglobin 8.2 (L) 12.0 - 15.6 g/dL [facility] AB Hematocrit 27.1 (L) 35.0 - 46.0 % [facility] Specimen Blood - Venous blood (substance) Performing Organization Address [facility] [address] [facility] A [id number] Basic metabolic panel (05/05/2021 6:36 AM PDT) Pathologist Sig nature Sodium 140 134 - 144 [facility] mmol/L HOSPITAL LAB Potassium 3.5 3.5 - 5.2 [facility] mmol/L [facility] Chloride 102 97 - 108 mmol/L [facility] CO2 27 18 - 29 mmol/L [facility] Anion Gap 11 3 - 11 mmol/L [facility] BUN 14.0 8.0 - 27.0 [facility] mg/dL HOSPITAL LAB Creatinine 1.46 (H) 0.57 - 1.00 [facility] mg/dL [facility]OSPITAL LAB Glucose, Serum 173 (H) 65 - 99 mg/dL [facility] Calcium 8.0 (L) 8.5 - 10.1 [facility] mg/dL [facility]OSPITAL LAB eGFR (CKD-EPI) 35 (L) >60 (CKD-EPI) [facility] mL/min/1.73 m2 [facility]OSPITAL LAB BUN/Creatinine Ratio 9.6 7.0 - 24.0 [facility] Specimen Blood - Venous blood (substance) Performing Organization Address [facility] A [address] POCT glucose PRN (05/04/2021 7:43 PM PDT) POCT Glucose, 247 (A) 65 - 99 mg/dL [facility] POCT (CLIA [id number]) POCT Glucose Test Note: Reference [facility] Comment Ranges revised [facility] POCT September 24 (CLIA [id number]) 2018. Specimen Blood - Capillary blood (substance) Performing Organization Address [facility]/[address] A [address] POCT (CLIA [id number]) POCT glucose (05/04/2021 11:44 AM PDT) POCT Glucose, 198 (A) 65 - 99 mg/dL [facility] POCT (CLIA [id number]) POCT Glucose Test Note: Reference [facility] Comment Ranges revised HOSPITAL POCT September 24 (CLIA [id number]) 2018. Specimen Blood - Capillary blood (substance) Performing Organization Address [facility] Phon e Number [facility] [address] A [address] POCT (CLIA [id number]) POCT glucose PRN (05/04/2021 9:08 AM PDT) POCT Glucose, 135 (A) 65 - 99 mg/dL [facility] POCT (CLIA [id number]) POCT Glucose Test Note: Reference [facility] Comment Ranges revised HOSPITAL POCT September 24, (CLIA [id number]) 2018. Specimen Blood - Capillary blood (substance) Performing Organization Address [facility] Phon e Number [facility] [address] A [address] POCT (CLIA [id number]) Hemoglobin and hematocrit (05/04/2021 6:43 AM PDT) Pathologist Sig nature Hemoglobin 8.2 (L) 12.0 - 15.6 g/dL [facility] AB Hematocrit 28.1 (L) 35.0 - 46.0 % [facility] Specimen Blood - Venous blood (substance) Performing Organization Address [facility] Phon e [facility] [address] [facility] A [phone] Basic metabolic panel (05/04/2021 6:43 AM PDT) Pathologist Sig nature Sodium 142 134 - 144 [facility] mmol/L HOSPITAL LAB Potassium 3.2 (L) 3.5 - 5.2 [facility] mmol/L HOSPITAL LAB Chloride 106 97 - 108 mmol/L [facility] CO2 29 18 - 29 mmol/L [facility] Anion Gap 7 3 - 11 mmol/L [facility] BUN 14.0 8.0 - 27.0 [facility] mg/dL HOSPITAL LAB Creatinine 1.40 (H) 0.57 - 1.00 [facility] mg/dL [facility]OSPITAL LAB Glucose, Serum 126 (H) 65 - 99 mg/dL [facility] Calcium 8.2 (L) 8.5 - 10.1 [facility] mg/dL [facility]OSPITAL LAB eGFR (CKD-EPI) 37 (L) >60 (CKD-EPI) [facility] mL/min/1.73 m2 HOSPITAL LAB BUN/Creatinine Ratio 10.0 7.0 - 24.0 [facility] Specimen Blood - Venous blood (substance) Performing Organization Address [facility] Phon e [facility] [address] A [address] POCT glucose PRN (05/03/2021 9:02 PM PDT) POCT Glucose, 179 (A) 65 - 99 mg/dL [facility] POCT (CLIA [id number]) POCT Glucose Test Note: Reference [facility] Comment [facility] POCT September 24 (CLIA [id number]) 2018. Specimen Blood - Capillary blood (substance) Performing Organization Address [facility] Phon e Number [facility] [address] A [address] POCT (CLIA [id number]) POCT glucose (05/03/2021 5:27 PM PDT) POCT Glucose, 216 (A) 65 - 99 mg/dL [facility] POCT (CLIA [id number]) POCT Glucose Test Note: Reference [facility] Comment Ranges revised HOSPITAL POCT September 24 (CLIA [id number]) 2018. Specimen Blood - Capillary blood (substance) Performing Organization Address City/[facility] Phon e Number [facility] [address] A [address] POCT (CLIA [id number]) POCT glucose (05/03/2021 12:28 PM PDT) POCT Glucose, 160 (A) 65 - 99 mg/dL [facility] POCT (CLIA [id number]) POCT Glucose Test Note: Reference [facility] Comment Ranges revised HOSPITAL POCT September 24, (CLIA [id number]) 2018. Specimen Blood - Capillary blood (substance) Performing Organization Address City/[facility]/ZIP Code Phon e Number [facility] [address] A [phone] POCT (CLIA [id number]) POCT glucose (05/03/2021 8:22 AM PDT) POCT Glucose, 110 (A) 65 - 99 mg/dL [facility] POCT (CLIA [id number]) POCT Glucose Test Note: Reference [facility] Comment Ranges revised [facility] POCT September 24 (CLIA [id number]) 2018. Specimen Blood - Capillary blood (substance) Performing Organization Address City/[facility]/ZIP Code Phon e Number [facility] [address] A [address] POCT (CLIA [id number]) Complete blood count with diff (05/03/2021 7:11 AM PDT) Pathologist Sig nature WBC Auto 7.4 3.8 - 10.1 [facility] x10e3/uL [facility] RBC 3.15 (L) 3.90 - 5.20 [facility] x10e6/uL HOSPITAL LAB Hemoglobin 7.9 (L) 12.0 - 15.6 [facility] g/dL [facility] Hematocrit 27.2 (L) 35.0 - 46.0 % [facility] MCV 86 81 - 100 fL [facility] MCH 25.1 (L) 27.0 - 35.0 pg [facility] MCHC 29.0 (L) 32.0 - 37.0 [facility] g/dL [facility] RDW 22.6 (H) 12.3 - 15.4 % [facility] Platelets 308 150 - 400 [facility] x10e3/uL HOSPITAL LAB MPV 11.5 (H) 7.4 - 10.4 fL [facility] NRBC % 0 0 /100 WBCs [facility] Abs. NRBC 0.0 x10e3/uL [facility] % Neutrophils 67 % [facility] % Lymphocytes 21 % [facility] % Monocytes 8 % [facility] % Eosinophils 2 % [facility] % Basophils 0 % [facility] Abs. Neutrophils 5.0 1.6 - 6.9 [facility] x10e3/uL HOSPITAL LAB Abs. Lymphocytes 1.6 1.1 - 4.8 [facility] x10e3/uL HOSPITAL LAB Abs. Monocytes 0.6 0.0 - 1.0 [facility] x10e3/uL HOSPITAL LAB Abs. Eosinophils 0.2 0.0 - 0.5 [facility] x10e3/uL HOSPITAL LAB Abs. Basophils 0.0 0.0 - 0.4 [facility] x10e3/uL [facility] Abs. Neutrophils 5,000.0 1,600.0-6,900.0 [facility] (Auto) [facility] LAB Specimen Blood - Venous blood (substance) Performing Organization Address City/State/ZIP Code Phon e Number [facility] [address] [facility] [address] Basic metabolic panel (05/03/2021 7:11 AM PDT) Pathologist Sig nature Sodium 143 134 - 144 [facility] mmol/L [facility] Potassium 3.6 3.5 - 5.2 [facility] mmol/L [facility] Chloride 107 97 - 108 mmol/L [facility] CO2 29 18 - 29 mmol/L [facility] Anion Gap 7 3 - 11 mmol/L [facility] BUN 14.0 8.0 - 27.0 [facility] mg/dL [facility] Creatinine 1.37 (H) 0.57 - 1.00 [facility] mg/dL [facility] Glucose, Serum 102 (H) 65 - 99 mg/dL [facility] Calcium 8.3 (L) 8.5 - 10.1 [facility] mg/dL [facility] eGFR (CKD-EPI) 38 (L) >60 (CKD-EPI) [facility] mL/min/1.73 m2 [facility] BUN/Creatinine Ratio 10.2 7.0 - 24.0 [facility] Specimen Blood - Venous blood (substance) Performing Organization Address [facility] Phon e [facility] [address] A [address] POCT glucose (05/02/2021 8:35 PM PDT) POCT Glucose, 236 (A) 65 - 99 mg/dL [facility] POCT (CLIA [id number]) POCT Glucose Test Note: Reference [facility] Comment Ranges revised HOSPITAL POCT September 24 (CLIA [id number]) 2018. Specimen Blood - Capillary blood (substance) Performing Organization Address [facility] e [place] [address] A [address] POCT (CLIA [id number]) POCT glucose (05/02/2021 4:55 PM PDT) POCT Glucose, 274 (A) 65 - 99 mg/dL [facility] POCT (CLIA [id number]) POCT Glucose Test Note: Reference [facility] Comment Ranges revised HOSPITAL POCT September 24 (CLIA [id number]) 2018. Specimen Blood - Capillary blood (substance) Performing Organization Address [facility] e Number [place] [address] [facility] A [address] POCT (CLIA [id number]) POCT glucose (05/02/2021 11:41 AM PDT) POCT Glucose, 235 (A) 65 - 99 mg/dL [facility] POCT (CLIA [id number]) POCT Glucose Test Note: Reference [facility] Comment Ranges revised HOSPITAL POCT September 24 (CLIA [id number]) 2018. Specimen Blood - Capillary blood (substance) Performing Organization Address [facility] Phon e Number [facility] [address] A [address] POCT (CLIA [id number]) POCT glucose (05/02/2021 8:13 AM PDT) POCT Glucose, 211 (A) 65 - 99 mg/dL [facility] POCT (CLIA [id number]) POCT Glucose Test Note: Reference [facility] Comment Ranges revised HOSPITAL POCT September 24, (CLIA [id number]) 2018. Specimen Blood - Capillary blood (substance) Performing Organization Address [facility] e Number [facility] [address] A [address] POCT (CLIA [id number]) Magnesium (05/02/2021 7:09 AM PDT) Pathologist Sig nature Magnesium 1.6 1.6 - 2.6 mg/dL [facility] B Specimen Blood - Venous blood (substance) Performing Organization Address [facility] [address] [facility] [phone] Complete blood count with diff (05/02/2021 7:09 AM PDT) Pathologist [facility] nature WBC Auto 6.9 3.8 - 10.1 [facility] x10e3/uL HOSPITAL LAB RBC 3.25 (L) 3.90 - 5.20 [facility] x10e6/uL [facility]OSPITAL LAB Hemoglobin 8.2 (L) 12.0 - 15.6 [facility] g/dL [facility] Hematocrit 27.7 (L) 35.0 - 46.0 % [facility] MCV 85 81 - 100 fL [facility] MCH 25.2 (L) 27.0 - 35.0 pg [facility] MCHC 29.6 (L) 32.0 - 37.0 [facility] g/dL [facility] RDW 22.6 (H) 12.3 - 15.4 % [facility] Platelets 309 150 - 400 [facility] x10e3/uL [facility] MPV 11.0 (H) 7.4 - 10.4 fL [facility] NRBC % 0 0 /100 WBCs [facility] Abs. NRBC 0.0 x10e3/uL [facility] % Neutrophils 68 % [facility] % Lymphocytes 19 % [facility] % Monocytes 10 % [facility] % Eosinophils 3 % [facility] % Basophils 0 % [facility] Abs. Neutrophils 4.6 1.6 - 6.9 [facility] x10e3/uL HOSPITAL LAB Abs. Lymphocytes 1.3 1.1 - 4.8 [facility] x10e3/uL [facility]OSPITAL LAB Abs. Monocytes 0.7 0.0 - 1.0 [facility] x10e3/uL [facility]OSPITAL LAB Abs. Eosinophils 0.2 0.0 - 0.5 [facility] x10e3/uL [facility]OSPITAL LAB Abs. Basophils 0.0 0.0 - 0.4 [facility] x10e3/uL HOSPITAL LAB Abs. Neutrophils 4,600.0 1,600.0-6,900.0 [facility] (Auto) /[facility] LAB Specimen Blood - Venous blood (substance) Performing Organization Address City/State/ZIP Code Phon e Number [facility] [address] [facility] [facility] [address] Basic metabolic panel (05/02/2021 7:09 AM PDT) [facility] Sodium 139 134 - 144 [facility] mmol/L [facility] Potassium 3.2 (L) 3.5 - 5.2 [facility] mmol/L [facility] Chloride 102 97 - 108 mmol/L [facility] CO2 27 18 - 29 mmol/L [facility] Anion Gap 10 3 - 11 mmol/L [facility] BUN 14.0 8.0 - 27.0 [facility] mg/dL [facility] Creatinine 1.28 (H) 0.57 - 1.00 [facility] mg/dL [facility] Glucose, Serum 221 (H) 65 - 99 mg/dL [facility] Calcium 8.2 (L) 8.5 - 10.1 [facility] mg/dL [facility] eGFR (CKD-EPI) 42 (L) >60 (CKD-EPI) [facility] mL/min/1.73 m2 [facility]OSPITAL LAB BUN/Creatinine Ratio 10.9 7.0 - 24.0 [facility] Specimen Blood - Venous blood (substance) Performing Organization Address [facility]/ZIP [facility] Phon e Number [facility] [address] [facility] A [address] POCT glucose PRN (05/01/2021 9:27 PM PDT) POCT Glucose, 229 (A) 65 - 99 mg/dL [facility] POCT (CLIA [id number]) POCT Glucose Test Note: Reference [facility] Comment Ranges revised HOSPITAL POCT September 24 (CLIA [id number]) 2018. Specimen Blood - Capillary blood (substance) Performing Organization Address [facility] Phon e Number [facility] [address] [facility] A [address] POCT (CLIA [id number]) POCT glucose (05/01/2021 5:36 PM PDT) POCT Glucose, 216 (A) 65 - 99 mg/dL [facility] POCT (CLIA [id number]) POCT Glucose Test Note: Reference [facility] Comment Ranges revised HOSPITAL POCT September 24 (CLIA [id number]) 2018. Specimen Blood - Capillary blood (substance) Performing Organization Address [facility]/ZIP Code Phon e Number [facility] [address] [facility] [place] A [address] POCT (CLIA [id number]) POCT glucose (05/01/2021 12:23 PM PDT) POCT Glucose, 197 (A) 65 - 99 mg/dL [facility] POCT (CLIA [id number]) POCT Glucose Test Note: Reference [facility] Comment Ranges revised HOSPITAL POCT September 24 (CLIA [id number]) 2018. Specimen Blood - Capillary blood (substance) Performing Organization Address [facility]/ZIP Code Phon e Number [facility] [address] [facility] A [id number] POCT (CLIA [id number]) POCT glucose (05/01/2021 9:34 AM PDT) POCT Glucose, 188 (A) 65 - 99 mg/dL [facility] POCT (CLIA [id number]) POCT Glucose Test Note: Reference [facility] Comment Ranges revised HOSPITAL POCT September 24, (CLIA [id number]) 2018. Specimen Blood - Capillary blood (substance) Performing Organization Address City/State/ZIP Code Phon e Number [facility] [address] [place] [address] POCT (CLIA [id number]) Complete blood count with diff (05/01/2021 9:21 AM PDT) Pathologist Sig nature WBC Auto 7.9 3.8 - 10.1 [facility] x10e3/uL [facility] RBC 3.54 (L) 3.90 - 5.20 [facility] x10e6/uL [facility] Hemoglobin 8.8 (L) 12.0 - 15.6 [facility] g/dL [facility] Hematocrit 29.8 (L) 35.0 - 46.0 % [facility] MCV 84 81 - 100 fL [facility] MCH 24.9 (L) 27.0 - 35.0 pg [facility] MCHC 29.5 (L) 32.0 - 37.0 [facility] g/dL [facility] RDW 23.1 (H) 12.3 - 15.4 % [facility] Platelets 363 150 - 400 [facility] x10e3/uL [facility] MPV 10.9 (H) 7.4 - 10.4 fL [facility] NRBC % 0 0 /100 WBCs [facility] Abs. NRBC 0.0 x10e3/uL [facility] % Neutrophils 69 % [facility] % Lymphocytes 18 % [facility] % Monocytes 9 % [facility] % Eosinophils 3 % [facility] % Basophils 0 % [facility] Abs. Neutrophils 5.4 1.6 - 6.9 [facility] x10e3/uL HOSPITAL LAB Abs. Lymphocytes 1.4 1.1 - 4.8 [facility] x10e3/uL HOSPITAL LAB Abs. Monocytes 0.7 0.0 - 1.0 [facility] x10e3/uL HOSPITAL LAB Abs. Eosinophils 0.3 0.0 - 0.5 [facility] x10e3/uL HOSPITAL LAB Abs. Basophils 0.0 0.0 - 0.4 [facility] x10e3/uL HOSPITAL LAB Abs. Neutrophils 5,400.0 1,600.0-6,900.0 [facility] (Auto) /[facility] Specimen Blood - Venous blood (substance) Performing Organization Address [facility] Phon [facility] [address] [facility] A [address] Basic metabolic panel (05/01/2021 9:21 AM PDT) Pathologist Sig nature Sodium 143 134 - 144 [facility] mmol/L [facility] Potassium 3.4 (L) 3.5 - 5.2 [facility] mmol/L [facility] Chloride 103 97 - 108 mmol/L [facility] CO2 26 18 - 29 mmol/L [facility] Anion Gap 14 (H) 3 - 11 mmol/L [facility] BUN 14.0 8.0 - 27.0 [facility] mg/dL [facility] Creatinine 1.23 (H) 0.57 - 1.00 [facility] mg/dL [facility] Glucose, Serum 194 (H) 65 - 99 mg/dL [facility] Calcium 8.5 8.5 - 10.1 [facility] mg/dL [facility] eGFR (CKD-EPI) 44 (L) >60 (CKD-EPI) [facility] mL/min/1.73 m2 HOSPITAL LAB BUN/Creatinine Ratio 11.4 7.0 - 24.0 [facility] Specimen Blood - Venous blood (substance) Performing Organization Address [facility] Phon e Richard [facility] [address] [facility] A [address] Magnesium (05/01/2021 9:21 AM PDT) Pathologist Sig nature Magnesium 1.3 (L) 1.6 - 2.6 mg/dL [facility] B Specimen Blood - Venous blood (substance) Performing Organization Address [facility] Phon e [facility] [address] [facility] A [id number] POCT glucose (04/30/2021 8:56 PM PDT) POCT Glucose, 156 (A) 65 - 99 mg/dL [facility] POCT (CLIA [id number]) POCT Glucose Test Note: Reference [facility] Comment Ranges revised HOSPITAL POCT September 24 (CLIA [id number]) 2018. Specimen Blood - Capillary blood (substance) Performing Organization Address [facility] e [place] [address] [facility] A [id number] POCT (CLIA [id number]) POCT glucose (04/30/2021 4:58 PM PDT) [facility] POCT Glucose, 262 (A) 65 - 99 mg/dL [facility] POCT (CLIA [id number]) POCT Glucose Test Note: Reference [facility] Comment Ranges revised HOSPITAL POCT September 24 (CLIA [id number]) 2018. Specimen Blood - Capillary blood (substance) Performing Organization Address [facility] Phon e Number [place] [address] [facility] A [address] POCT (CLIA [id number]) Complete blood count with diff (04/30/2021 6:24 AM PDT) [facility] WBC Auto 9.7 3.8 - 10.1 [facility] x10e3/uL HOSPITAL LAB RBC 3.24 (L) 3.90 - 5.20 [facility] x10e6/uL HOSPITAL LAB Hemoglobin 8.2 (L) 12.0 - 15.6 [facility] g/dL HOSPITAL LAB Hematocrit 27.6 (L) 35.0 - 46.0 % [facility] MCV 85 81 - 100 fL [facility] MCH 25.3 (L) 27.0 - 35.0 pg [facility] MCHC 29.7 (L) 32.0 - 37.0 [facility] g/dL [facility] RDW 23.1 (H) 12.3 - 15.4 % [facility] Platelets 298 150 - 400 [facility] x10e3/uL [facility] MPV 11.4 (H) 7.4 - 10.4 fL [facility] NRBC % 0 0 /100 WBCs [facility] Abs. NRBC 0.0 x10e3/uL [facility] % Neutrophils 77 % [facility] % Lymphocytes 11 % [facility] % Monocytes 9 % [facility] % Eosinophils 2 % [facility] % Basophils 0 % [facility] Abs. Neutrophils 7.4 (H) 1.6 - 6.9 [facility] x10e3/uL [facility] Abs. Lymphocytes 1.1 1.1 - 4.8 [facility] x10e3/uL [facility] Abs. Monocytes 0.9 0.0 - 1.0 [facility] x10e3/uL [facility] Abs. Eosinophils 0.2 0.0 - 0.5 [facility] x10e3/uL [facility] Abs. Basophils 0.0 0.0 - 0.4 [facility] x10e3/uL [facility] Abs. Neutrophils 7,400.0 (H) 1,600.0-6,900. [facility] (Auto) 0 /uL [facility] Specimen Blood - Venous blood (substance) Performing Organization Address City/State/ZIP Code Phon e Number [facility] [address] [facility] [phone] Basic metabolic panel (04/30/2021 6:24 AM PDT) Pathologist Sig nature Sodium 140 134 - 144 [facility] mmol/L [facility] Potassium 3.4 (L) 3.5 - 5.2 [facility] mmol/L [facility] Chloride 102 97 - 108 mmol/L [facility] CO2 26 18 - 29 mmol/L [facility] Anion Gap 12 (H) 3 - 11 mmol/L [facility] BUN 18.0 8.0 - 27.0 [facility] mg/dL [facility] Creatinine 1.16 (H) 0.57 - 1.00 [facility] mg/dL [facility] Glucose, Serum 222 (H) 65 - 99 mg/dL [facility] Calcium 8.5 8.5 - 10.1 [facility] mg/dL HOSPITAL LAB eGFR (CKD-EPI) 47 (L) >60 (CKD-EPI) [facility] mL/min/1.73 m2 HOSPITAL LAB BUN/Creatinine Ratio 15.5 7.0 - 24.0 [facility] Specimen Blood - Venous blood (substance) Performing Organization Address [facility] Phon e [facility] [address] [facility] A [id number] POCT glucose PRN (04/29/2021 9:15 PM PDT) POCT Glucose, 215 (A) 65 - 99 mg/dL [facility] POCT (CLIA [id number]) POCT Glucose Test Note: Reference [facility] Comment Ranges revised [facility] POCT September 24 (CLIA [id number]) 2018. Specimen Blood - Capillary blood (substance) Performing Organization Address [facility] Phon e Number [place] [address] [facility] A [id number] POCT (CLIA [id number]) POCT glucose for patients who are NPO, TPN infusion or continuous tube feedings (04/29/2021 12:05 PMPDT) POCT Glucose, 182 (A) 65 - 99 mg/dL [facility] POCT (CLIA [id number]) POCT Glucose Test Note: Reference [facility] Comment Ranges revised [facility] POCT September 24 (CLIA [id number]) 2018. Specimen Blood - Capillary blood (substance) Performing Organization Address [facility] Phon e Number [place] [address] [facility] A [id number] POCT (CLIA [id number]) POCT glucose for patients who are NPO, TPN infusion or continuous tube feedings (04/29/2021 8:45 AMPDT) [facility] POCT Glucose, 138 (A) 65 - 99 mg/dL [facility] POCT (CLIA [id number]) POCT Glucose Test Note: Reference [facility] Comment Ranges revised HOSPITAL POCT September 24, (CLIA [id number]) 2018. Specimen Blood - Capillary blood (substance) Performing Organization Address [facility] Phon e Number [facility] [address] [facility] A [address] POCT (CLIA [id number]) Hold Green Top - PST LiHeparin (04/29/2021 6:39 AM PDT) [facility] nature Extra Tube Hold for [facility] add-ons.Comment: LAB Auto resulted. Specimen Blood - Venous blood (substance) Performing Organization Address [facility] [address] [facility] A [phone] Complete blood count with diff (04/29/2021 5:27 AM PDT) [facility] WBC Auto 13.6 (H) 3.8 - 10.1 [facility] x10e3/uL [facility] RBC 3.27 (L) 3.90 - 5.20 [facility] x10e6/uL [facility] Hemoglobin 8.2 (L) 12.0 - 15.6 [facility] g/dL [facility] Hematocrit 28.0 (L) 35.0 - 46.0 % [facility] MCV 86 81 - 100 fL [facility] MCH 25.1 (L) 27.0 - 35.0 pg [facility] MCHC 29.3 (L) 32.0 - 37.0 [facility] g/dL [facility] RDW 23.4 (H) 12.3 - 15.4 % [facility] Platelets 255 150 - 400 [facility] x10e3/uL HOSPITAL LAB MPV 11.6 (H) 7.4 - 10.4 fL [facility] NRBC % 0 0 /100 WBCs [facility] Abs. NRBC 0.0 x10e3/uL [facility] % Neutrophils 83 % [facility] % Lymphocytes 7 % [facility] % Monocytes 7 % [facility] % Eosinophils 1 % [facility] % Basophils 0 % [facility] Abs. Neutrophils 11.3 (H) 1.6 - 6.9 [facility] x10e3/uL [facility] Abs. Lymphocytes 1.0 (L) 1.1 - 4.8 [facility] x10e3/uL [facility] Abs. Monocytes 1.0 0.0 - 1.0 [place] 840820e3/uL [facility] Abs. Eosinophils 0.2 0.0 - 0.5 [facility] x10e3/uL [facility] Abs. Basophils 0.0 0.0 - 0.4 [place] 840820e3/uL [facility] Abs. Neutrophils 11,300.0 (H) 1,600.0-6,900. [facility] (Auto) 0 /uL HOSPITAL LAB Specimen Blood - Venous blood (substance) Performing Organization Address [facility] Phon e Number [facility] [address] [facility] A [phone] POCT glucose for patients who are NPO, TPN infusion or continuous tube feedings (04/29/2021 3:00 AMPDT) POCT Glucose, 153 (A) 65 - 99 mg/dL [facility] POCT (CLIA [id number]) POCT Glucose Test Note: Reference [facility] Comment [facility] HOSPITAL POCT September 24 (CLIA [id number]) 2018. Specimen Blood - Capillary blood (substance) Performing Organization Address [facility] Phon e Number [facility] [address] [facility] A [address] POCT (CLIA [id number]) POCT glucose for patients who are NPO, TPN infusion or continuous tube feedings (04/28/2021 9:40 PMPDT) [facility] POCT Glucose, 281 (A) 65 - 99 mg/dL [facility] POCT (CLIA [id number]) POCT Glucose Test Note: Reference [facility] revised HOSPITAL POCT September 24, (CLIA [id number]) 2018. Specimen Blood - Capillary blood (substance) Performing Organization Address City/[facility]/ZIP Code Phon e Number [place] [address] [facility] A [address] POCT (CLIA [id number]) POCT glucose for patients who are NPO, TPN infusion or continuous tube feedings (04/28/2021 4:05 PMPDT) [facility] POCT Glucose, 250 (A) 65 - 99 mg/dL [facility] POCT (CLIA [id number]) POCT Glucose Test Note: Reference [facility] POCT September 24, (CLIA [id number]) 2018. Specimen Blood - Capillary blood (substance) Performing Organization Address [facility] Phon e Number [address] [place] [address] POCT (CLIA [id number]) POCT glucose PRN (04/28/2021 11:34 AM PDT) [facility] POCT Glucose, 182 (A) 65 - 99 mg/dL [facility] POCT (CLIA [id number]) POCT Glucose Test Note: Reference [facility] revised HOSPITAL POCT September 24 (CLIA [id number]) 2018. Specimen Blood - Capillary blood (substance) Performing Organization Address [facility] Phon e Number [place] [address] [facility] A [address] POCT (CLIA [id number]) Complete blood count with diff (04/28/2021 7:36 AM PDT) WBC Auto 15.6 (H) 3.8 - 10.1 [facility] x10e3/uL HOSPITAL LAB RBC 3.40 (L) 3.90 - 5.20 [facility] x10e6/uL [facility]OSPITAL LAB Hemoglobin 8.4 (L) 12.0 - 15.6 [facility] g/dL HOSPITAL LAB Hematocrit 28.7 (L) 35.0 - 46.0 % [facility] MCV 84 81 - 100 fL [facility] MCH 24.7 (L) 27.0 - 35.0 pg [facility] MCHC 29.3 (L) 32.0 - 37.0 [facility] g/dL [facility] RDW 23.4 (H) 12.3 - 15.4 % [facility] Platelets 234 150 - 400 [place] 840820e3/uL [facility] MPV 11.9 (H) 7.4 - 10.4 fL [facility] NRBC % 0 0 /100 WBCs [facility] Abs. NRBC 0.0 x10e3/uL [facility] % Neutrophils 82 % [facility] % Lymphocytes 9 % [facility] % Monocytes 7 % [facility] % Eosinophils 1 % [facility] % Basophils 0 % [facility] Abs. Neutrophils 12.9 (H) 1.6 - 6.9 [facility] x10e3/uL [facility] Abs. Lymphocytes 1.3 1.1 - 4.8 [facility] x10e3/uL [facility] Abs. Monocytes 1.1 (H) 0.0 - 1.0 [place] 840820e3/uL [facility] Abs. Eosinophils 0.2 0.0 - 0.5 [facility] x10e3/uL [facility] Abs. Basophils 0.0 0.0 - 0.4 [facility] x10e3/uL [facility] Abs. Neutrophils 12,900.0 (H) 1,600.0-6,900. [facility] (Auto) 0 /uL HOSPITAL LAB Specimen Blood - Venous blood (substance) Performing Organization Address City/State/ZIP Code Phon e Number [facility] [address] [facility] [address] Comprehensive Metabolic Panel (04/28/2021 7:35 AM PDT) Pathologist Sig nature Sodium 141 134 - 144 [facility] mmol/L [facility] Potassium 3.5 3.5 - 5.2 [facility] mmol/L [facility] Chloride 104 97 - 108 mmol/L [facility] CO2 29 18 - 29 mmol/L [facility] Anion Gap 8 3 - 11 mmol/L [facility] BUN 24.0 8.0 - 27.0 [facility] mg/dL [facility] Creatinine 1.36 (H) 0.57 - 1.00 [facility] mg/dL [facility] Glucose, Serum 110 (H) 65 - 99 mg/dL [facility] Calcium 8.4 (L) 8.5 - 10.1 [facility] mg/dL [facility] AST 24 0 - 50 U/L [facility] ALT 13 0 - 32 U/L [facility] Alkaline Phosphatase 81 25 - 165 U/L [facility] Total Protein 4.8 (L) 6.4 - 8.4 g/dL [facility] eGFR (CKD-EPI) 39 (L) >60 (CKD-EPI) [facility] mL/min/1.73 m2 [facility] Albumin 2.4 (L) 3.4 - 5.0 g/dL [facility] Bilirubin, Total 0.4 <=1.2 mg/dL [facility] BUN/Creatinine Ratio 17.6 7.0 - 24.0 [facility] Specimen Blood - Venous blood (substance) Performing Organization Address City/State/ZIP Code Phon e Number [facility] [address] [facility] [place] [address] POCT glucose PRN (04/28/2021 7:34 AM PDT) POCT Glucose, 112 (A)Comment: 65 - 99 mg/dL [facility] Blood Prior to starting HOSPITAL POCT D5 NS continuous (CLIA [id number]) fluids POCT Glucose Test Note: Reference [facility] Comment Ranges revised HOSPITAL POCT September 24 (CLIA [id number]) 2018. Specimen Blood - Capillary blood (substance) Performing Organization Address City/[facility] Phon e Number [facility] [address] [facility] A [address] POCT (CLIA [id number]) POCT glucose for patients who are NPO, TPN infusion or continuous tube feedings (04/28/2021 4:08 AMPDT) POCT Glucose, 110 (A) 65 - 99 mg/dL [facility] POCT (CLIA [id number]) POCT Glucose Test Note: Reference [facility] Comment Ranges revised HOSPITAL POCT September 24 (CLIA [id number]) 2018. Specimen Blood - Capillary blood (substance) Performing Organization Address [facility] Phon e Number [facility] [address] [facility] A [address] POCT (CLIA [id number]) POCT glucose for patients who are NPO, TPN infusion or continuous tube feedings (04/28/2021 1:32 AMPDT) POCT Glucose, 93 65 - 99 mg/dL [facility] POCT (CLIA [id number]) POCT Glucose Test Note: Reference [facility] Comment Ranges revised [facility] POCT September 24 (CLIA [id number]) 2018. Specimen Blood - Capillary blood (substance) Performing Organization Address City/[facility] Phon e Number [facility] [address] [facility] A [address] POCT (CLIA [id number]) POCT glucose for patients who are NPO, TPN infusion or continuous tube feedings (04/27/2021 11:15 PMPDT) POCT Glucose, 102 (A) 65 - 99 mg/dL [facility] POCT (CLIA [id number]) POCT Glucose Test Note: Reference [facility] Comment Ranges revised HOSPITAL POCT September 24 (CLIA [id number]) 2018. Specimen Blood - Capillary blood (substance) Performing Organization Address [facility] Phon e Number [place] [address] [facility] A [address] POCT (CLIA [id number]) POCT glucose for patients who are NPO, TPN infusion or continuous tube feedings (04/27/2021 10:02 PMPDT) POCT Glucose, 113 (A) 65 - 99 mg/dL [facility] POCT (CLIA [id number]) POCT Glucose Test Note: Reference [facility] POCT September 24 (CLIA [id number]) 2018. Specimen Blood - Capillary blood (substance) Performing Organization Address [facility] Phon e Number [place] [id number] [facility] A [address] POCT (CLIA [id number]) POCT glucose for patients who are NPO, TPN infusion or continuous tube feedings (04/27/2021 9:35 PMPDT) POCT Glucose, 59 (A) 65 - 99 mg/dL [facility] POCT (CLIA [id number]) POCT Glucose Test Note: Reference [facility] POCT September 24 (CLIA [id number]) 2018. Specimen Blood - Capillary blood (substance) Performing Organization Address [facility] Phon e Number [place] [id number] [facility] A [address] POCT (CLIA [id number]) POCT glucose PRN (04/27/2021 7:27 PM PDT) POCT Glucose, 71 65 - 99 mg/dL [facility] POCT (CLIA [id number]) POCT Glucose Test Note: Reference [facility] Ranges revised HOSPITAL POCT September 24 (CLIA [id number]) 2018. Specimen Blood - Capillary blood (substance) Performing Organization Address City/[facility] Phon e Number [facility] [address] [facility] A [address] POCT (CLIA [id number]) POCT glucose for patients who are NPO, TPN infusion or continuous tube feedings (04/27/2021 4:57 PMPDT) POCT Glucose, 79 65 - 99 mg/dL [facility] POCT (CLIA [id number]) POCT Glucose Test Note: Reference [facility] Comment Ranges revised HOSPITAL POCT September 24 (CLIA [id number]) 2018. Specimen Blood - Capillary blood (substance) Performing Organization Address [facility] Phon e Number [facility] [address] [facility] A [address] POCT (CLIA [id number]) POCT glucose for patients who are NPO, TPN infusion or continuous tube feedings (04/27/2021 9:55 AMPDT) POCT Glucose, 141 (A) 65 - 99 mg/dL [facility] POCT (CLIA [id number]) POCT Glucose Test Note: Reference [facility] Comment Ranges revised HOSPITAL POCT September 24 (CLIA [id number]) 2018. Specimen Blood - Capillary blood (substance) Performing Organization Address City/[facility]/ZIP [facility] Phon e Number [facility] [address] [facility] A [address] POCT (CLIA [id number]) Complete blood count with diff (04/27/2021 5:48 AM PDT) WBC Auto 17.2 (H) 3.8 - 10.1 [facility] x10e3/uL HOSPITAL LAB RBC 3.53 (L) 3.90 - 5.20 [facility] x10e6/uL [facility]OSPITAL LAB Hemoglobin 8.8 (L) 12.0 - 15.6 [facility] g/dL HOSPITAL LAB Hematocrit 30.0 (L) 35.0 - 46.0 % [facility] MCV 85 81 - 100 fL [facility] MCH 24.9 (L) 27.0 - 35.0 pg [facility] MCHC 29.3 (L) 32.0 - 37.0 [facility] g/dL HOSPITAL LAB RDW 23.2 (H) 12.3 - 15.4 % [facility] Platelets 227 150 - 400 [facility] x10e3/uL [facility] MPV 12.3 (H) 7.4 - 10.4 fL [facility] NRBC % 1 0 /100 WBCs [facility] Abs. NRBC 0.1 x10e3/uL [facility] % Neutrophils 75 % [facility] % Lymphocytes 13 % [facility] % Monocytes 8 % [facility] % Eosinophils 1 % [facility] % Basophils 0 % [facility] Abs. Neutrophils 13.0 (H) 1.6 - 6.9 [facility] x10e3/uL [facility] Abs. Lymphocytes 2.2 1.1 - 4.8 [facility] x10e3/uL [facility] Abs. Monocytes 1.3 (H) 0.0 - 1.0 [facility] x10e3/uL [facility] Abs. Eosinophils 0.2 0.0 - 0.5 [facility] x10e3/uL [facility] Abs. Basophils 0.0 0.0 - 0.4 [facility] x10e3/uL [facility] Abs. Neutrophils 13,000.0 (H) 1,600.0-6,900. [facility] (Auto) 0 /uL [facility] Specimen Blood - Venous blood (substance) Performing Organization Address City/State/ZIP Code Phon e Number [facility] [address] [facility] S[place]re [phone] Comprehensive Metabolic Panel (04/27/2021 5:48 AM PDT) Pathologist Sig nature Sodium 141 134 - 144 [facility] mmol/L HOSPITAL LAB Potassium 4.1 3.5 - 5.2 [facility] mmol/L [facility] Chloride 103 97 - 108 mmol/L [facility] CO2 32 (H) 18 - 29 mmol/L [facility] Anion Gap 6 3 - 11 mmol/L [facility] BUN 28.0 (H) 8.0 - 27.0 [facility] mg/dL [facility] Creatinine 1.30 (H) 0.57 - 1.00 [facility] mg/dL HOSPITAL LAB Glucose, Serum 113 (H) 65 - 99 mg/dL [facility] Calcium 8.4 (L) 8.5 - 10.1 [facility] mg/dL [facility] AST 23 0 - 50 U/L [facility] ALT 14 0 - 32 U/L [facility] Alkaline Phosphatase 81 25 - 165 U/L [facility] Total Protein 4.8 (L) 6.4 - 8.4 g/dL [facility] eGFR (CKD-EPI) 41 (L) >60 (CKD-EPI) [facility] mL/min/1.73 m2 [facility] Albumin 2.5 (L) 3.4 - 5.0 g/dL [facility] Bilirubin, Total 0.4 <=1.2 mg/dL [facility] BUN/Creatinine Ratio 21.5 7.0 - 24.0 [facility] Specimen Blood - Venous blood (substance) Performing Organization Address [facility] [address] POCT glucose PRN (04/27/2021 3:45 AM PDT) Pathologist [facility] POCT Glucose, 107 (A) 65 - 99 mg/dL [facility] POCT (CLIA [id number]) POCT Glucose Test Note: Reference [facility] Comment Ranges revised HOSPITAL POCT September 24, (CLIA [id number]) 2018. Specimen Blood - Capillary blood (substance) Performing Organization Address [facility] e [address] A [address] POCT (CLIA [id number]) POCT glucose PRN (04/27/2021 12:30 AM PDT) POCT Glucose, 88 65 - 99 mg/dL [facility] POCT (CLIA [id number]) POCT Glucose Test Note: Reference [facility] Comment Ranges revised HOSPITAL POCT September 24 (CLIA [id number]) 2018. Specimen Blood - Capillary blood (substance) Performing Organization Address [facility] Phon e Number [facility] [address] [facility] A [address] POCT (CLIA [id number]) POCT glucose (04/26/2021 8:55 PM PDT) [facility] POCT Glucose, 74 65 - 99 mg/dL [facility] POCT (CLIA [id number]) POCT Glucose Test Note: Reference [facility] revised [facility] POCT September 24 (CLIA [id number]) 2018. Specimen Blood - Capillary blood (substance) Performing Organization Address [facility] Phon e Number [place] [phone] [facility] A [address] POCT (CLIA [id number]) POCT glucose for patients who are NPO, TPN infusion or continuous tube feedings (04/26/2021 4:52 PMPDT) POCT Glucose, 66 65 - 99 mg/dL [facility] POCT (CLIA [id number]) POCT Glucose Test Note: Reference [facility] revised HOSPITAL POCT September 24 (CLIA [id number]) 2018. Specimen Blood - Capillary blood (substance) Performing Organization Address [facility] Phon e Number [place] [phone] [facility] A [address] POCT (CLIA [id number]) POCT glucose for patients who are NPO, TPN infusion or continuous tube feedings (04/26/2021 3:49 PMPDT) POCT Glucose, 65 65 - 99 mg/dL [facility] POCT (CLIA [id number]) POCT Glucose Test Note: Reference [facility] Comment Ranges revised HOSPITAL POCT September 24 (CLIA [id number]) 2018. Specimen Blood - Capillary blood (substance) Performing Organization Address City/[facility]/ZIP Code Phon e Number [facility] [address] [facility] A [phone] POCT (CLIA [id number]) POCT glucose for patients who are NPO, TPN infusion or continuous tube feedings (04/26/2021 12:36 PMPDT) POCT Glucose, 191 (A) 65 - 99 mg/dL [facility] POCT (CLIA [id number]) POCT Glucose Test Note: Reference [facility] Comment Ranges revised HOSPITAL POCT September 24 (CLIA [id number]) 2018. Specimen Blood - Capillary blood (substance) Performing Organization Address [facility] Code Phon e Number [place] [phone] [facility] A [address] POCT (CLIA [id number]) POCT glucose for patients who are NPO, TPN infusion or continuous tube feedings (04/26/2021 9:22 AMPDT) POCT Glucose, 228 (A) 65 - 99 mg/dL [facility] POCT (CLIA [id number]) POCT Glucose Test Note: Reference [facility] Ranges revised HOSPITAL POCT September 24 (CLIA [id number]) 2018. Specimen Blood - Capillary blood (substance) Performing Organization Address City/[facility]/ZIP [facility] Phon e Number [facility] [address] [facility] A [address] POCT (CLIA [id number]) Complete blood count with diff (04/26/2021 3:29 AM PDT) WBC Auto 12.9 (H) 3.8 - 10.1 [facility] x10e3/uL HOSPITAL LAB RBC 3.21 (L) 3.90 - 5.20 [facility] x10e6/uL [facility]ITAL LAB Hemoglobin 7.9 (L) 12.0 - 15.6 [facility] g/dL HOSPITAL LAB Hematocrit 26.7 (L) 35.0 - 46.0 % [facility] MCV 83 81 - 100 fL [facility] MCH 24.6 (L) 27.0 - 35.0 pg [facility] MCHC 29.6 (L) 32.0 - 37.0 [facility] g/dL [facility] RDW 22.6 (H) 12.3 - 15.4 % [facility] Platelets 180 150 - 400 [facility] x10e3/uL [facility] MPV 11.2 (H) 7.4 - 10.4 fL [facility] NRBC % 1 0 /100 WBCs [facility] Abs. NRBC 0.1 x10e3/uL [facility] % Neutrophils 77 % [facility] % Lymphocytes 13 % [facility] % Monocytes 6 % [facility] % Eosinophils 3 % [facility] % Basophils 0 % [facility] Abs. Neutrophils 9.9 (H) 1.6 - 6.9 [facility] x10e3/uL [facility] Abs. Lymphocytes 1.6 1.1 - 4.8 [facility] x10e3/uL [facility] Abs. Monocytes 0.8 0.0 - 1.0 [facility] x10e3/uL [facility] Abs. Eosinophils 0.4 0.0 - 0.5 [facility] x10e3/uL [facility] Abs. Basophils 0.0 0.0 - 0.4 [facility] x10e3/uL [facility] Abs. Neutrophils 9,900.0 (H) 1,600.0-6,900. [facility] (Auto) 0 /uL HOSPITAL LAB Specimen Blood - Blood (substance) Performing Organization Address City/State/ZIP Code Phon e Number [facility] [address] [facility] A [address] Comprehensive Metabolic Panel (04/26/2021 3:29 AM PDT) Pathologist Sig nature Sodium 141 134 - 144 [facility] mmol/L [facility] Potassium 3.8 3.5 - 5.2 [facility] mmol/L [facility] Chloride 101 97 - 108 mmol/L [facility] CO2 36 (H) 18 - 29 mmol/L [facility] Anion Gap 4 3 - 11 mmol/L [facility] BUN 37.0 (H) 8.0 - 27.0 [facility] mg/dL HOSPITAL LAB Creatinine 1.33 (H) 0.57 - 1.00 [facility] mg/dL [facility] Glucose, Serum 184 (H) 65 - 99 mg/dL [facility] Calcium 8.2 (L) 8.5 - 10.1 [facility] mg/dL [facility] AST 20 0 - 50 U/L [facility] ALT 13 0 - 32 U/L [facility] Alkaline Phosphatase 86 25 - 165 U/L [facility] Total Protein 4.7 (L) 6.4 - 8.4 g/dL [facility] eGFR (CKD-EPI) 40 (L) >60 (CKD-EPI) [facility] mL/min/1.73 m2 [facility] Albumin 2.4 (L) 3.4 - 5.0 g/dL [facility] Bilirubin, Total 0.4 <=1.2 mg/dL [facility] BUN/Creatinine Ratio 27.8 (H) 7.0 - 24.0 [facility] Specimen Blood - Blood (substance) Performing Organization Address [facility]/ZIP Code [facility] [address] [facility] A [address] Magnesium (04/26/2021 3:29 AM PDT) Pathologist Sig nature Magnesium 1.9 1.6 - 2.6 mg/dL [facility] B Specimen Blood - Blood (substance) Performing Organization Address [facility] [address] [facility] A [phone] POCT glucose (04/26/2021 3:19 AM PDT) POCT Glucose, 170 (A) 65 - 99 mg/dL [facility] POCT (CLIA [id number]) POCT Glucose Test Note: Reference [facility] Comment Ranges revised HOSPITAL POCT September 24 (CLIA [id number]) 2018. Specimen Blood - Capillary blood (substance) Performing Organization Address City/[facility]/ZIP Code Phon e Number [facility] [address] [facility] [address] A [address] POCT (CLIA [id number]) POCT glucose for patients who are NPO, TPN infusion or continuous tube feedings (04/25/2021 8:40 PMPDT) POCT Glucose, 162 (A) 65 - 99 mg/dL [facility] POCT (CLIA [id number]) POCT Glucose Test Note: Reference [facility] Comment Ranges revised [facility] POCT September 24 (CLIA [id number]) 2018. Specimen Blood - Capillary blood (substance) Performing Organization Address [facility] Phon e Number [place] [phone] [facility] A [address] POCT (CLIA [id number]) POCT glucose for patients who are NPO, TPN infusion or continuous tube feedings (04/25/2021 4:50 PMPDT) POCT Glucose, 232 (A) 65 - 99 mg/dL [facility] POCT (CLIA [id number]) POCT Glucose Test Note: Reference [facility] revised HOSPITAL POCT September 24 (CLIA [id number]) 2018. Specimen Blood - Capillary blood (substance) Performing Organization Address City/[facility] Phon e Number [facility] [address] [facility] A [address] POCT (CLIA [id number]) POCT glucose for patients who are NPO, TPN infusion or continuous tube feedings (04/25/2021 10:01 AMPDT) POCT Glucose, 338 (A) 65 - 99 mg/dL [facility] POCT (CLIA [id number]) POCT Glucose Test Note: Reference [facility] Comment Ranges revised HOSPITAL POCT September 24 (CLIA [id number]) 2018. Specimen Blood - Capillary blood (substance) Performing Organization Address City/[facility] Phon e Number [facility] [address] [facility] A [address] POCT (CLIA [id number]) POCT glucose for patients who are NPO, TPN infusion or continuous tube feedings (04/25/2021 6:52 AMPDT) [facility] POCT Glucose, 339 (A) 65 - 99 mg/dL [facility] POCT (CLIA [id number]) POCT Glucose Test Note: Reference [facility] Comment Ranges revised [facility] POCT September 24 (CLIA [id number]) 2018. Specimen Blood - Capillary blood (substance) Performing Organization Address City/[facility] Phon e Number [facility] [address] [facility] A [address] POCT (CLIA [id number]) Complete blood count with diff (04/25/2021 5:08 AM PDT) [facility] WBC Auto 13.6 (H) 3.8 - 10.1 [facility] x10e3/uL [facility] RBC 3.04 (L) 3.90 - 5.20 [facility] x10e6/uL [facility]OSPITAL LAB Hemoglobin 7.6 (L) 12.0 - 15.6 [facility] g/dL HOSPITAL LAB Hematocrit 24.8 (L) 35.0 - 46.0 % [facility] MCV 82 81 - 100 fL [facility] MCH 25.0 (L) 27.0 - 35.0 pg [facility] MCHC 30.6 (L) 32.0 - 37.0 [facility] g/dL [facility] RDW 22.6 (H) 12.3 - 15.4 % [facility] Platelets 198 150 - 400 [facility] x10e3/uL [facility] MPV 11.5 (H) 7.4 - 10.4 fL [facility] NRBC % 0 0 /100 WBCs [facility] Abs. NRBC 0.0 x10e3/uL [facility] % Neutrophils 90 % [facility] % Lymphocytes 4 % [facility] % Monocytes 4 % [facility] % Eosinophils 0 % [facility] % Basophils 0 % [facility] Abs. Neutrophils 12.2 (H) 1.6 - 6.9 [facility] x10e3/uL [facility] Abs. Lymphocytes 0.6 (L) 1.1 - 4.8 [facility] x10e3/uL [facility] Abs. Monocytes 0.5 0.0 - 1.0 [place] [id number]/uL [facility] Abs. Eosinophils 0.0 0.0 - 0.5 [place] 840820e3/uL [facility] Abs. Basophils 0.0 0.0 - 0.4 [place] 840820e3/uL [facility] Abs. Neutrophils 12,200.0 (H) 1,600.0-6,900. [facility] (Auto) 0 /uL [facility] Specimen Blood - Blood (substance) Performing Organization Address City/State/ZIP Code Phon e Number [facility] [address] [facility] [address] Comprehensive Metabolic Panel (04/25/2021 5:08 AM PDT) Pathologist Sig nature Sodium 138 134 - 144 [facility] mmol/L [facility] Potassium 3.4 (L) 3.5 - 5.2 [facility] mmol/L [facility] Chloride 97 97 - 108 mmol/L [facility] CO2 33 (H) 18 - 29 mmol/L [facility] Anion Gap 8 3 - 11 mmol/L [facility] BUN 39.0 (H) 8.0 - 27.0 [facility] mg/dL [facility] Creatinine 1.46 (H) 0.57 - 1.00 [facility] mg/dL [facility] Glucose, Serum 373 (H) 65 - 99 mg/dL [facility] Calcium 7.9 (L) 8.5 - 10.1 [facility] mg/dL [facility]OSPITAL LAB AST 18 0 - 50 U/L [facility] ALT 14 0 - 32 U/L [facility] Alkaline Phosphatase 118 25 - 165 U/L [facility] Total Protein 4.5 (L) 6.4 - 8.4 g/dL [facility] eGFR (CKD-EPI) 35 (L) >60 (CKD-EPI) [facility] mL/min/1.73 m2 HOSPITAL LAB Albumin 2.6 (L) 3.4 - 5.0 g/dL [facility] Bilirubin, Total 0.3 <=1.2 mg/dL [facility] BUN/Creatinine Ratio 26.7 (H) 7.0 - 24.0 [facility] Specimen Blood - Blood (substance) Performing Organization Address [facility] Phon e Number [facility] [address] [facility] A [address] POCT glucose for patients who are NPO, TPN infusion or continuous tube feedings (04/25/2021 3:57 AMPDT) POCT Glucose, 348 (A) 65 - 99 mg/dL [facility] POCT (CLIA [id number]) POCT Glucose Test Note: Reference [facility] Comment Ranges revised HOSPITAL POCT September 24 (CLIA [id number]) 2018. Specimen Blood - Capillary blood (substance) Performing Organization Address [facility] Phon e Number [facility] [address] [facility] A [address] POCT (CLIA [id number]) POCT glucose for patients who are NPO, TPN infusion or continuous tube feedings (04/24/2021 9:36 PMPDT) POCT Glucose, 345 (A) 65 - 99 mg/dL [facility] POCT (CLIA [id number]) POCT Glucose Test Note: Reference [facility] Comment Ranges revised HOSPITAL POCT September 24 (CLIA [id number]) 2019. Specimen Blood - Capillary blood (substance) Performing Organization Address [facility] Phon e Number [facility] [address] [facility] A [phone] POCT (CLIA [id number]) Magnesium (04/24/2021 11:57 AM PDT) Pathologist Sig nature Magnesium 1.4 (L) 1.6 - 2.6 mg/dL [facility] B Specimen Blood - Blood (substance) Performing Organization Address [facility] [address] [facility] A [id number] Basic metabolic panel (04/24/2021 11:57 AM PDT) Pathologist Sig nature Sodium 143 134 - 144 [facility] mmol/L [facility] Potassium 3.3 (L) 3.5 - 5.2 [facility] mmol/L [facility] Chloride 100 97 - 108 mmol/L [facility] CO2 32 (H) 18 - 29 mmol/L [facility] Anion Gap 11 3 - 11 mmol/L [facility] BUN 42.0 (H) 8.0 - 27.0 [facility] mg/dL [facility] Creatinine 1.58 (H) 0.57 - 1.00 [facility] mg/dL [facility] Glucose, Serum 353 (H) 65 - 99 mg/dL [facility] Calcium 8.1 (L) 8.5 - 10.1 [facility] mg/dL [facility] eGFR (CKD-EPI) 32 (L) >60 (CKD-EPI) [facility] mL/min/1.73 m2 [facility] BUN/Creatinine Ratio 26.6 (H) 7.0 - 24.0 [facility] Specimen Blood - Blood (substance) Performing Organization Address [facility] Phon e [facility] LAB [address] [facility] A [phone] Comprehensive Metabolic Panel (04/24/2021 7:17 AM PDT) Pathologist Sig nature Sodium 142 134 - 144 [facility] mmol/L HOSPITAL LAB Potassium 2.7 (L) 3.5 - 5.2 [facility] mmol/L [facility]ITAL LAB Chloride 100 97 - 108 mmol/L [facility] CO2 33 (H) 18 - 29 mmol/L [facility] Anion Gap 9 3 - 11 mmol/L [facility] BUN 41.0 (H) 8.0 - 27.0 [facility] mg/dL HOSPITAL LAB Creatinine 1.77 (H) 0.57 - 1.00 [facility] mg/dL [facility] Glucose, Serum 281 (H) 65 - 99 mg/dL [facility] Calcium 8.2 (L) 8.5 - 10.1 [facility] mg/dL [facility] AST 22 0 - 50 U/L [facility] ALT 16 0 - 32 U/L [facility] Alkaline Phosphatase 91 25 - 165 U/L [facility] Total Protein 4.9 (L) 6.4 - 8.4 g/dL [facility] eGFR (CKD-EPI) 28 (L) >60 (CKD-EPI) [facility] mL/min/1.73 m2 [facility] Albumin 2.7 (L) 3.4 - 5.0 g/dL [facility] Bilirubin, Total 0.4 <=1.2 mg/dL [facility] BUN/Creatinine Ratio 23.2 7.0 - 24.0 [facility] Specimen Blood - Venous blood (substance) Performing Organization Address City/State/ZIP Code Phon e Number [facility] [address] [place] [address] [phone] Complete blood count with diff (04/24/2021 4:30 AM PDT) WBC Auto 18.1 (H) 3.8 - 10.1 [facility] x10e3/uL [facility] RBC 3.19 (L) 3.90 - 5.20 [facility] x10e6/uL [facility] Hemoglobin 7.9 (L) 12.0 - 15.6 [facility] g/dL [facility] Hematocrit 25.4 (L) 35.0 - 46.0 % [facility] MCV 80 (L) 81 - 100 fL [facility] MCH 24.8 (L) 27.0 - 35.0 pg [facility] MCHC 31.1 (L) 32.0 - 37.0 [facility] g/dL HOSPITAL LAB RDW 22.3 (H) 12.3 - 15.4 % [facility] Platelets 218 150 - 400 [facility] x10e3/uL [facility] MPV 10.4 7.4 - 10.4 fL [facility] NRBC % 0 0 /100 WBCs [facility] Abs. NRBC 0.0 x10e3/uL [facility] % Neutrophils 89 % [facility] % Lymphocytes 6 % [facility] % Monocytes 4 % [facility] % Eosinophils 0 % [facility] % Basophils 0 % [facility] Abs. Neutrophils 16.1 (H) 1.6 - 6.9 [facility] x10e3/uL [facility] Abs. Lymphocytes 1.0 (L) 1.1 - 4.8 [place] [id number]/uL [facility] Abs. Monocytes 0.7 0.0 - 1.0 [place] [id number]/uL [facility] Abs. Eosinophils 0.0 0.0 - 0.5 [place] [id number]/uL [facility] Abs. Basophils 0.0 0.0 - 0.4 [place] [id number]/uL [facility] Abs. Neutrophils 16,100.0 (H) 1,600.0-6,900. [facility] (Auto) 0 /uL [facility] Specimen Blood - Venous blood (substance) Performing Organization Address City/State/ZIP Code Phon e Number [facility] [address] [place] [address] POCT glucose for patients who are NPO, TPN infusion or continuous tube feedings (04/24/2021 2:11 AMPDT) POCT Glucose, 366 (A) 65 - 99 mg/dL [facility] POCT (CLIA [id number]) POCT Glucose Test Note: Reference [facility] Comment [facility] HOSPITAL POCT September 24 (CLIA [id number]) 2018. Specimen Blood - Capillary blood (substance) Performing Organization Address City/[facility]/ZIP Code Phon e Number [facility] [address] [facility] A [address] POCT (CLIA [id number]) POCT glucose for patients who are NPO, TPN infusion or continuous tube feedings (04/23/2021 8:15 PMPDT) POCT Glucose, 243 (A) 65 - 99 mg/dL [facility] POCT (CLIA [id number]) POCT Glucose Test Note: Reference [facility] Comment Ranges revised HOSPITAL POCT September 24, (CLIA [id number]) 2018. Specimen Blood - Capillary blood (substance) Performing Organization Address City/[facility]/ZIP Code Phon e Number [facility] [address] [facility] A [address] POCT (CLIA [id number]) XR CHEST 1 VIEW (04/23/2021 4:52 PM PDT) Specimen Narrative Performed At [facility] [place]. [address] PATIENT NAME: SHIRIN AGUILLON : 1945 GENDER: F EXAM DATE: 04/23/2021 ?? 16:33 ORDERED FROM: [facility] ORDERING PHYSICIAN: JORDAN RAMSEY CC: ??-- ??- ??- ??- CONTRAST: ? READING STATION ID: [id number] mGy: PROCEDURE: ??XR CHEST 1 VIEW INDICATIONS: ??Dobhoff placement - in pl emily TECHNIQUE: ??One view of the chest was a cquired. ?? COMPARISON: ??[facility], , XR CHEST 1 VIEW, 04/22/2021, 15:54. FINDINGS: ?? Surgical changes and devices: ??Dobbhoff tube tip is i n distal stomach lumen below the right hemidiaphragm. ??Fusion hardware in lumbar spine is see n. Lungs and pleura: ??Pulmonary vascular congestion is seen. ??No significant pleural effusion or gross pneumothorax. ??Mild pulmonary edema is seen. Mediastinum: ??Mediastinal contours appear normal. ??Heart size is enlarged. ?? Bones and chest wall: ??No suspicious bony lesions. ??Overlying soft tissues appear unremark able. ?? IMPRESSION: ??Dobbhoff tube tip is in the region of distal stomach lumen below the right hemidiaphragm. ?? No free air under the diaphragm. ??Mild pulmonary vascula r congestion. ??No gross pneumothorax. Reviewed by: Jacinto Rodriguez M.D. on 04/23/2021 at 16:54 ? Approved by: Jacinto Rodriguez M.D. on 04/23/2021 at 16:57 ? Procedure Note Interface, Radiology Results In - 2020 4:59 [place]. [address] PATIENT NAME: SHIRIN AGUILLON : 1945 GENDER: F EXAM DATE: 04/23/2021 16:33 ORDERED FROM: [facility] ORDERING PHYSICIAN: JORDAN RAMSEY CC: -- - - - CONTRAST: READING STATION ID: [id number] mGy: PROCEDURE: XR CHEST 1 VIEW INDICATIONS: Dobhoff placement - in corina ce TECHNIQUE: One view of the chest was ac quired. COMPARISON: [facility], , XR CHEST 1 VIEW, 04/22/2021, 15:54. FINDINGS: Surgical changes and devices: Dobbhoff tube tip is in distal stomach lumen below the right hemidiaphragm. Fusion hardware in lumbar spine is seen. Lungs and pleura: Pulmonary vascular co ngestion is seen. No significant pleural effusion or gross pneumothorax. Mild pulmonary edema is seen. Mediastinum: Mediastinal contours appea r normal. Heart size is enlarged. Bones and chest wall: No suspicious bon y lesions. Overlying soft tissues appear unremarkable. IMPRESSION: Dobbhoff tube tip is in the region of distal stomach lumen below the right hemidiaphragm. No free air under the diaphragm. Mild pulmonary vascular congestion. No gross pneumothorax. Reviewed by: Jacinto Rodriguez M.D. on 04/23/2021 at 16:54 Approved by: Jacinto Rodriguez M.D. on 04/23/2021 at 16:57 Performing Organization Address [facility] Phon e Number [facility] [address] [place] [address] POCT glucose for patients who are NPO, TPN infusion or continuous tube feedings (04/23/2021 2:05 PMPDT) POCT Glucose, 301 (A) 65 - 99 mg/dL [facility] POCT (CLIA [id number]) POCT Glucose Test Note: Reference [facility] Comment Ranges revised HOSPITAL POCT September 24 (CLIA [id number]) 2018. Specimen Blood - Capillary blood (substance) Performing Organization Address [facility] e Number [facility] [address] [facility] A [address] POCT (CLIA [id number]) POCT glucose for patients who are NPO, TPN infusion or continuous tube feedings (04/23/2021 10:09 AMPDT) POCT Glucose, 404 (A) 65 - 99 mg/dL [facility] POCT (CLIA [id number]) POCT Glucose Test Note: Reference [facility] POCT September 24 (CLIA [id number]) 2018. Specimen Blood - Capillary blood (substance) Performing Organization Address [facility] e Number [place] [address] [facility] A [address] POCT (CLIA [id number]) Arterial blood gas (04/23/2021 9:44 AM PDT) pH, Arterial 7.494 (H) 7.350 - 7.450 [facility] pCO2, Arterial 27 (L) 35 - 45 mmHg [facility] pO2, Arterial 132 (H) 80 - 100 mmHg [facility] HCO3, Arterial 21.0 (L) 22.0 - 26.0 [facility] mmol/L DEPT Base Excess, -1.7 -2.0 - 2.0 [facility] Arterial mmol/L DEPT sO2, Arterial 99 (H) <95 % [facility] tHb, arterial 8.0 (L) 12.0 - 18.0 g/dL [facility] Oxyhemoglobin, 97.2 >=85.0 % [facility] arterial fraction DEPT Carboxyhemoglobin, 1.1 <1.5 % fraction [facility] arterial DEPT Methemoglobin, 0.7 0.4 - 1.5 % [facility] arterial fraction DEPT FIO2% 50 % [facility] Liters per Minute 6.00 L/min [facility] Mode of Delivery OXY Mask [facility] Tidal Volume 0 mL [facility] Total Respiratory 22 (H) 12 - 20 /min [facility] Rate DEPT PEEP / EPAP 0 cmH2O [facility] Patient Temperature 37.0 ??C [facility] ABG Draw Site Left Radial Site [facility] Modified Jordan's Positive [facility] Test DEPT Specimen Blood - Arterial blood (substance) Performing Organization Address City/State/ZIP Code Phon e Number [facility] [address] [place], [place] [address] ECHOCARDIOGRAM COMPLETE (04/23/2021 8:20 AM PDT) Specimen Narrative Performed At ? [facility] ? Version: 1 ? Study ID: [id number] ?[facility] ?[address] ?[place]. [address] ?Phone: ?ADULT ECHOCARDIOGRAM Name: SHIRIN AGUILLON ?Study Date: 04/23/2021, 7: 55 AM : 1945 ? BP: 147 / 80 mmHg Gender: Female ? Height: 60 in Age: 75 Years ?Weight: 187.393 lb Pt. Location: [facility]^2008^2008-10 ? BSA: 1.82 m? ? ? Ordering: JORDAN RAMSEY Referring: Yellow Hospitalist Clinician: Carli Vasquez Reason For Study: Dyspnea History: Summary Statements This is a technically difficult study characterized by limited endocardial visualization. Next time recommend Definity echocontras t if possible. Normal sinus rhythm with occasional PAC' s. Normal LV size and wall thickness. There is subtle mid-anterior hypokinesis, but normal wall motion otherwise. EF is 50-55%. Stage II diastolic dysfunction. Normal chamber sizes. Aortic sclerosis without stenosis. Otherwise no valvul ar abnormalities. Compared to prior study 09/2019, focal wall motion abnormality involving mid-anterior segment is newly described Procedure: A two-dimensional transthoracic echocardiog epifanio with color flow and Doppler was performed. The patient was supine and unab le to follow breathing commands. Comparison is made with the echocardiogram o f 10/21/2019. The patient was in normal sinus rhythm durin g the exam. Left Ventricle: The left ventricle is normal in size. Left ventricular wall thickness is at the upper limits of normal. There is n o ventricular septal defect visualized. The ejection fraction is estimated to be 50-55%. There is subtle mid-anterior hypokinesis. Data is somewhat conflicting, in that patient has E/A reversal and PV systolic flow predominance. Ye t e/e' ratio is >15. Right Ventricle: The right ventricle is normal in size and function. Atria: Both atria are normal in size. There is no Dopp ler evidence for an interatrial shunt. Mitral Valve: The mitral valve leaflets are slightly calcified. The mitral valve chordae are thickened and/or calcified. There is mild mitral regurgitation. Aortic Valve: The aortic valve is not well visualized. The aortic valve is slightly calcified. The aortic valve opens well. No aortic regurgitation is present. Tricuspid Valve: The tricuspid valve is not well visualized, but is grossly normal. There is a trace or physiologic amount of tricuspid regurgitation. The right ventricular systolic pressure is estimated to be at least 37 mmHg based on an estimated right atrial pressure of 8 mm Hg. Pulmonic Valve: The pulmonic valve is not well visualized. Great Vessels: The aortic root is normal size. The ascending aorta is normal in size. The IVC is of normal diameter and collapses l ess than 50% with a sniff. This suggests a right atrial pres sure of 8 mm Hg. Pericardium/ Pleura: There is no pericardial effusion. There is an anterior echo-free space consistent with a fat pad. There is a small right-sided pleural effusion. ? 2D and M-Mode Measureme nts and Calculations LVIDd: 4.1 cm ? AoV Openin.78 cm LVIDs: 2.5 cm ? LVOT diam: 1.73 cm IVSd: 1.00 cm ? Ao root diam: 3.4 cm LVPWd: 1.03 cm ? asc Aorta Diam: 3.2 cm LV bai. diameter/BSA (cm/m^2): 2.27 LV sys. diameter/BSA (cm/m^2): 1.38 FS: 39.3 % EPSS: 0.92 cm RVD1 (basal): 2.9 cm ? IVC diam: 2.02 cm TAPSE: 2.21 cm LA A4 area: 18.1 cm? RA area: 12.3 cm? ? ? LA A2 area: 17.3 cm? RA long axis: 4.6 cm LA length (vol): 5.6 cm ? RA vol: 28.4 ml LA vol: 47.2 ml ? RA : 15.6 ml/m? ? ? LA vol index: 26.0 ml/m? Doppler Measurements an d Calculations Ao V2 max: 142.6 cm/sec ? LVOT Max Ron: 93.9 cm/sec Ao V2 mean: 93.7 cm/sec ? LV V1 max P.5 mmHg Ao V2 VTI: 26.7 cm ? LV V1 VTI: 18.5 cm Ao max P.1 mmHg Ao mean P.9 mmHg DILAN(I,D): 1.64 cm? ? ? DILAN(V,D): 1.55 cm? ? ? DILAN indexed to BSA (cm^2/m^2): 0.90 sev ratio: 0.69 MV E max ron: 98.1 cm/sec ? MV dec time: 0.28 sec MV A max ron: 121.0 cm/sec MV E/A: 0.81 Med Peak E' Ron: 5.3 cm/sec E/E' med: 18.4 Lat Peak E' Ron: 7.2 cm/sec E/E' lat: 13.6 E/e' average: 16.0 TR max ron: 267.7 cm/sec ? PA V2 max: 81.1 cm/sec TR max P.7 mmHg ? PA mean P.59 mmHg MR PISA: 0.62 cm? ? ? ___ Electronically signed by: Lucinda odonnell M.D. ? Lucinda Bahena M.D. ?04/23/2021, 3: 19 PM Procedure Note Interface, Radiology Results In - 2020 3:20 PM PDT Version: 1 Study ID: [id number] [place] [id number] [facility]. [address] Phone: ADULT ECHOCARDIOGRAM Name: SHIRIN AGUILLON Study Date: 04/23/2021, 7: 55 AM : 1945 BP: 147 / 80 mmHg Gender: Female Height: 60 in Age: 75 Years Weight: 187.393 lb Pt. Location: [facility]^2008^2008-10 BSA: 1.82 m? ?? Ordering: JORDAN RAMSEY Referring: [place] Hospitalist Clinician: Carli Vasquez Reason For Study: Dyspnea History: Summary Statements This is a technically difficult study ch aracterized by limited endocardial visualization. Next time recommend Definity echocontras t if possible. Normal sinus rhythm with occasional PAC' s. Normal LV size and wall thickness. There is subtle mid-anterior hypokinesis, but normal wall motion otherwise. EF is 50-55%. Stage II diastolic dysfunction. Normal chamber sizes. Aortic sclerosis without stenosis. Other lewis no valvular abnormalities. Compared to prior study 09/2019, focal w all motion abnormality involving mid-anterior segment is newly described Procedure: A two-dimensional transthorac ic echocardiogram with color flow and Doppler was performed. The patient was s upine and unable to follow breathing commands. Comparison is made with the hocardiogram of 10/21/2019. The patient was in normal sinus rhythm aidain g the exam. Left Ventricle: The left ventricle is no rmal in size. Left ventricular wall thickness is at the upper limits of norm al. There is no ventricular septal defect visualized. The ejection fraction is estimated to be 50-55%. There is subtle mid-anterior hypokinesis. Data is somewhat conflicting, in that patient has E/A reversal and PV systolic flow pr edominance. Yet e/e' ratio is >15. Right Ventricle: The right ventricle is normal in size and function. Atria: Both atria are normal in size. Th ere is no Doppler evidence for an interatrial shunt. Mitral Valve: The mitral valve leaflets are slightly calcified. The mitral valve chordae are thickened and/or calci fied. There is mild mitral regurgitation. Aortic Valve: The aortic valve is not we ll visualized. The aortic valve is slightly calcified. The aortic valve ope ns well. No aortic regurgitation is present. Tricuspid Valve: The tricuspid valve is not well visualized, but is grossly normal. There is a trace or physiologic amount of tricuspid regurgitation. The right ventricular systolic pressure is e stimated to be at least 37 mmHg based on an estimated right atrial pressure of 8 mm Hg. Pulmonic Valve: The pulmonic valve is no t well visualized. Great Vessels: The aortic root is normal size. The ascending aorta is normal in size. The IVC is of normal diameter a nd collapses less than 50% with a sniff. This suggests a right atrial pres sure of 8 mm Hg. Pericardium/ Pleura: There is no pericar dial effusion. There is an anterior echo-free space consistent with a fat pa d. There is a small right-sided pleural effusion. 2D and M-Mode Measu rements and Calculations LVIDd: 4.1 cm AoV Openin.78 cm LVIDs: 2.5 cm LVOT diam: 1.73 cm IVSd: 1.00 cm Ao root diam: 3.4 cm LVPWd: 1.03 cm asc Aorta Diam: 3.2 cm LV bai. diameter/BSA (cm/m^2): 2.27 LV sys. diameter/BSA (cm/m^2): 1.38 FS: 39.3 % EPSS: 0.92 cm RVD1 (basal): 2.9 cm IVC diam: 2.02 cm TAPSE: 2.21 cm LA A4 area: 18.1 cm? ?? RA area: 12.3 cm? ?? LA A2 area: 17.3 cm? ?? RA long axis: 4.6 cm LA length (vol): 5.6 cm RA vol: 28.4 ml LA vol: 47.2 ml RA : 15.6 ml/m? ?? LA vol index: 26.0 ml/m? ?? Doppler Measurement s and Calculations Ao V2 max: 142.6 cm/sec LVOT Max Ron: 93.9 cm/sec Ao V2 mean: 93.7 cm/sec LV V1 max P.5 mmHg Ao V2 VTI: 26.7 cm LV V1 VTI: 18.5 cm Ao max P.1 mmHg Ao mean P.9 mmHg DILAN(I,D): 1.64 cm? ?? DILAN(V,D): 1.55 cm? ?? DILAN indexed to BSA (cm^2/m^2): 0.90 sev ratio: 0.69 MV E max ron: 98.1 cm/sec MV dec time: 0.28 sec MV A max ron: 121.0 cm/sec MV E/A: 0.81 Med Peak E' Ron: 5.3 cm/sec E/E' med: 18.4 Lat Peak E' Ron: 7.2 cm/sec E/E' lat: 13.6 E/e' average: 16.0 TR max ron: 267.7 cm/sec PA V2 max: 81.1 cm/sec TR max P.7 mmHg PA mean P.59 mmHg MR PISA: 0.62 cm? ?? Electronically signed by: Lucinda Bahena M.D. 04/23/2021, 3: 19 PM Performing Organization Address City/State/ZIP Code [facility] e [facility] RADIOLOGY SYSTEM [address] [place] [address] Ammonia (04/23/2021 7:06 AM PDT) Ammonia 15 11 - 51 umol/L [facility] Comment: HOSPITAL LAB Note: Reference Ranges revised June 10, 2020 Note: Units of measurement change June 10, 2020 Specimen Blood - Venous blood (substance) Performing Organization Address City/State/ZIP Code Phon e Number [facility] [address] [facility] [place] [address] Complete blood count with diff (04/23/2021 5:27 AM PDT) WBC Auto 20.8 (H) 3.8 - 10.1 [facility] x10e3/uL [facility] RBC 3.18 (L) 3.90 - 5.20 [facility] x10e6/uL [facility] Hemoglobin 8.0 (L) 12.0 - 15.6 [facility] g/dL [facility] Hematocrit 25.7 (L) 35.0 - 46.0 % [facility] MCV 81 81 - 100 fL [facility] MCH 25.2 (L) 27.0 - 35.0 pg [facility] MCHC 31.1 (L) 32.0 - 37.0 [facility] g/dL [facility] RDW 21.9 (H) 12.3 - 15.4 % [facility] Platelets 241 150 - 400 [place] 840820e3/[facility] LAB MPV 10.5 (H) 7.4 - 10.4 fL [facility] NRBC % 0 0 /100 WBCs [facility] Abs. NRBC 0.0 x10e3/uL [facility] % Neutrophils 90 % [facility] % Lymphocytes 5 % [facility] % Monocytes 4 % [facility] % Eosinophils 0 % [facility] % Basophils 0 % [facility] Abs. Neutrophils 18.7 (H) 1.6 - 6.9 [facility] x10e3/uL [facility] Abs. Lymphocytes 1.0 (L) 1.1 - 4.8 [facility] x10e3/uL [facility] Abs. Monocytes 0.8 0.0 - 1.0 [facility] x10e3/uL [facility] Abs. Eosinophils 0.0 0.0 - 0.5 [facility] x10e3/uL HOSPITAL LAB Abs. Basophils 0.0 0.0 - 0.4 [facility] x10e3/uL [facility] Abs. Neutrophils 18,700.0 (H) 1,600.0-6,900. [facility] (Auto) 0 /uL HOSPITAL LAB Specimen Blood - Venous blood (substance) Performing Organization Address [facility] Phon e Number [facility] [address] [facility] A [phone] Basic metabolic panel (04/23/2021 5:27 AM PDT) Pathologist Sig nature Sodium 144 134 - 144 [facility] mmol/L [facility] Potassium 3.5 3.5 - 5.2 [facility] mmol/L [facility] Chloride 101 97 - 108 mmol/L [facility] CO2 18 18 - 29 mmol/L [facility] Anion Gap 25 (H) 3 - 11 mmol/L [facility] BUN 44.0 (H) 8.0 - 27.0 [facility] mg/dL [facility] Creatinine 1.98 (H) 0.57 - 1.00 [facility] mg/dL [facility] Glucose, Serum 414 (H) 65 - 99 mg/dL [facility] Calcium 8.1 (L) 8.5 - 10.1 [facility] mg/dL [facility] eGFR (CKD-EPI) 25 (L) >60 (CKD-EPI) [facility] mL/min/1.73 m2 [facility] BUN/Creatinine Ratio 22.2 7.0 - 24.0 [facility] Specimen Blood - Venous blood (substance) Performing Organization Address City/[facility] Phon e Number [facility] [address] [facility] A [id number] POCT glucose PRN (04/22/2021 4:19 PM PDT) POCT Glucose, 279 (A) 65 - 99 mg/dL [facility] POCT (CLIA [id number]) POCT Glucose Test Note: Reference [facility] Comment Ranges revised HOSPITAL POCT September 24 (CLIA [id number]) 2019. Specimen Blood - Capillary blood (substance) Performing Organization Address [facility]/ZIP Code Phon e Number [facility] [address] [facility] A [phone] POCT (CLIA [id number]) Basic metabolic panel (04/22/2021 4:16 PM PDT) Pathologist Sig nature Sodium 146 (H) 134 - 144 [facility] mmol/L [facility]OSPITAL LAB Potassium 4.0 3.5 - 5.2 [facility] mmol/L [facility] LAB Chloride 104 97 - 108 mmol/L [facility] CO2 11 (L) 18 - 29 mmol/L [facility] Anion Gap 31 (H) 3 - 11 mmol/L [facility] BUN 45.0 (H) 8.0 - 27.0 [facility] mg/dL [facility]OSPITAL LAB Creatinine 2.09 (H) 0.57 - 1.00 [facility] mg/dL [facility]ITAL LAB Glucose, Serum 303 (H) 65 - 99 mg/dL [facility] Calcium 8.6 8.5 - 10.1 [facility] mg/dL [facility]OSPITAL LAB eGFR (CKD-EPI) 23 (L) >60 (CKD-EPI) [facility] mL/min/1.73 m2 [facility]OS[facility]ITAL LAB BUN/Creatinine Ratio 21.5 7.0 - 24.0 [facility] Specimen Blood - Blood (substance) Performing Organization Address City/[facility]/ZIP Code Phon e Number [facility] [address] [facility] A [phone] C. difficile toxin PCR w/reflex to Ag-based EIA (04/22/2021 4:16 PM PDT) C. diff PCR NegativeComment: Negative [facility] Toxigenic Negative results for HOSPITAL LAB C. difficile PCR indicates no presence of C. difficile.?? Patient does NOT need to be in Enteric Precautions and NO treatment is necessary. C. diff PCR Reflex No [facility] to EIA [facility]OS[facility] LAB Specimen Stool - Rectal contents (substance) Narrative Performed At Results for PCR testing for Stool pathogens must be ta buddy [facility] in clinical context when making treatment decisions. ??Si nce PCR testing is more sensitive than tradition al techniques, it allows for detection of low levels of pa thogens and may be detecting carrier states rather than infections. Performing Organization Address City/State/ZIP Code Phon e Number [facility] [address] [facility] [address] Beta-Hydroxybutyrate (04/22/2021 4:16 PM PDT) Pathologist Sig nature Beta-Hydroxybutyrat 137 (H) mg/dL [facility] Comment: Confirmed by dilution. Reference Range: All Ages (fasting): 0.2 - 2.8 Specimen Blood - Blood (substance) Narrative Performed At Performed at: ?? - [employer] [facility] [address] A ??[id number] Search Manager: Dawit Erazo MD, Phone: ??[phone] Performing Organization Address City/State/ZIP Code Jenn e Number [facility] [address] [address] [phone] XR CHEST 1 VIEW (04/22/2021 4:10 PM PDT) Specimen Narrative Performed At [facility] [place]. [address] PATIENT NAME: SHIRIN AGUILLON : 1945 GENDER: F EXAM DATE: 04/22/2021 ?? 15:54 ORDERED FROM: [facility] ORDERING PHYSICIAN: JORDAN RAMSEY CC: ??-- ??- ??- ??- CONTRAST: ? READING STATION ID: [id number] mGy: PROCEDURE: ??XR CHEST 1 VIEW INDICATIONS: ??central line placement TECHNIQUE: ??One view of the chest was a cquired. ?? COMPARISON: ??[facility], , XR CHEST 1 VIEW, 04/22/2021, 10:34. FINDINGS: ?? Surgical changes and devices: ??Central venous cathete r projects over the distal SVC via a left IJ approach. ??Feeding tube projects across the GE junction with nonvisualization of the distal tip. ??Cholecystectomy clips. Lungs and pleura: ??Bilateral perihilar opacities are stable compared to April 22, 2021 at 10:34 a.m. ??No pleural effusions or pneumothorax. ?? Mediastinum: ??Mediastinal contours appear normal. ??Heart size is normal. ?? Bones and chest wall: ??No suspicious bony lesions. ??Overlying soft tissues appear unremark able. ?? IMPRESSION: ??Tip of central venous catheter projects over the SVC. ?? Reviewed by: Sindi Rahman MD, PhD on 04/22/2021 at 16:30 ? Approved by: Sindi Rahman MD, PhD on 04/22/2021 at 16:32 ? Procedure Note Interface, Radiology Results In - 2020 4:29 [place]. [address] PATIENT NAME: SHIRIN AGUILLON : 1945 GENDER: F EXAM DATE: 04/22/2021 15:54 ORDERED FROM: [facility] ORDERING PHYSICIAN: JORDAN RAMSEY CC: -- - - - CONTRAST: READING STATION ID: [id number] mGy: PROCEDURE: XR CHEST 1 VIEW INDICATIONS: central line placement TECHNIQUE: One view of the chest was ac quired. COMPARISON: [facility], , XR CHEST 1 VIEW, 04/22/2021, 10:34. FINDINGS: Surgical changes and devices: Central v enous catheter projects over the distal SVC via a left IJ approach. Feeding tube projects across the GE junction with nonvisualization of the distal tip. Cholecystectomy clips. Lungs and pleura: Bilateral perihilar o pacities are stable compared to April 22, 2021 at 10:34 a.m. No pleural effusions or pneumothorax. Mediastinum: Mediastinal contours appea r normal. Heart size is normal. Bones and chest wall: No suspicious bon y lesions. Overlying soft tissues appear unremarkable. IMPRESSION: Tip of central venous isaak ter projects over the SVC. Reviewed by: Sindi Rahman MD, Ph D on 04/22/2021 at 16:30 Approved by: Sindi Rahman MD, Ph D on 04/22/2021 at 16:32 Performing Organization Address City/State/ZIP Code [facility] RADIOLOGY SYSTEM [address] [place] [id number] HEAD WITHOUT CONTRAST (04/22/2021 1:36 PM PDT) Specimen Narrative Performed At [facility] [place]. [address] PATIENT NAME: SHIRIN AGUILLON : 1945 GENDER: F EXAM DATE: 04/22/2021 ?? 13:19 ORDERED FROM: [facility] ORDERING PHYSICIAN: JORDAN RAMSEY CC: ??-- ??- ??- ??- CONTRAST: ? READING STATION ID: [id number] mGy: PROCEDURE: ??CT HEAD WITHOUT CONTRAST INDICATIONS: ??Mental status change, unk nown cause TECHNIQUE: ?? Noncontrast 4.5 mm thick angled axial sections acquire d from the foramen magnum to the vertex, with coronal an d sagittal reformats. ??For radiation dose reduction, th e following was used: ??automated exposure control, adjustment of mA and/or kV according to patient size. ?? COMPARISON: ??None. FINDINGS: ?? Image quality: ??Fair, motion artifact. ?? CSF spaces: ??Basal cisterns are patent. ??No extra-ax ial fluid collections. ??Ventricles are normal in size and shape. ?? Brain: ??No midline shift. ??No intracranial masses or hemorrhage. ??No area of hypodensity in a large vascul ar distribution to suggest acute infarction. Periventricu lar hypodensity consistent with chronic microvascular ischemic change. Age-related parenchymal loss. Skull and face: ??Calvarium and visualized facial bone s are intact, without suspicious lesions. ?? Sinuses: ??Visualized sinuses and mastoi ds are clear. ?? IMPRESSION: ?? No acute intracranial abnormality. Reviewed by: Daniel Rubio M.D. on 04/22/2021 at 14:26 ? Approved by: Daniel Rubio M.D. on 04/22/20 at 14:28 ? Procedure Note Interface, Radiology Results In - 2020 2:29 [place]. [address] PATIENT NAME: SHIRIN AGUILLON : 1945 GENDER: F EXAM DATE: 04/22/2021 13:19 ORDERED FROM: [facility] ORDERING PHYSICIAN: JORDAN RAMSEY CC: -- - - - CONTRAST: READING STATION ID: [id number] mGy: PROCEDURE: CT HEAD WITHOUT CONTRAST INDICATIONS: Mental status change, unkn own cause TECHNIQUE: Noncontrast 4.5 mm thick angled axial se ctions acquired from the foramen magnum to the vertex, with coronal and sagittal reformats. For radiation dose reduction, the following was used: automated exposure control, adjustment of mA and/or kV according to patient size. COMPARISON: None. FINDINGS: Image quality: Fair, motion artifact. CSF spaces: Basal cisterns are patent. No extra-axial fluid collections. Ventricles are normal in size and shape. Brain: No midline shift. No intracrani al masses or hemorrhage. No area of hypodensity in a large vascular distribution to suggest acute infarction. Periventricular hypodensity consistent with chronic microvascular ischemic change. Age-relat ed parenchymal loss. Skull and face: Calvarium and visualize d facial bones are intact, without suspicious lesions. Sinuses: Visualized sinuses and mastoid s are clear. IMPRESSION: No acute intracranial abnormality. Reviewed by: Daniel Rubio M.D. on 04/22/20 21 at 14:26 Approved by: Daniel Rubio M.D. on 04/22/20 21 at 14:28 Performing Organization Address City/State/ZIP Code [facility] SYSTEM [address] [place] [address] ABDOMEN PELVIS WITHOUT CONTRAST (04/22/2021 1:35 PM PDT) Specimen Narrative Performed At [facility] [place]. [address] PATIENT NAME: SHIRIN AGUILLON : 1945 GENDER: F EXAM DATE: 04/22/2021 ?? 13:19 ORDERED FROM: [facility] ORDERING PHYSICIAN: JORDAN RAMSEY CC: REDD TREJO -- ??- ??- ??- CONTRAST: ? READING STATION ID: [id number] mGy: PROCEDURE: ??CT ABDOMEN PELVIS WITHOUT C ONTRAST INDICATIONS: ??Abdominal abscess/infecti on suspected TECHNIQUE: ?? After the administration of oral contrast, 5 mm thick sections acquired from the diaphragms to the symphysis . ??5 mm coronal and sagittal reformats were performed. ??For radiation dose reduction, the following was used : ??automated exposure control, adjustment of mA and/or kV according to patient size. ?? COMPARISON: ??[facility], CT, CT ABDOMEN PELVIS WITHOUT CONTRAST, 02/15/2018, 12:1 8. FINDINGS: ?? Image quality: ??Reduced by persistent patient motion during image acquisition.. ?? ABDOMEN: ?? Lung bases: ??Lung bases are abnormal with basilar atelectasis and moderate bilateral pleural effusions.. ??Heart size is normal. ??An esophagogastric tube cros ses into the gastric lumen. ??Oral contrast was administered. Solid organs: ??Liver is normal in size. ??Gallbladder appears to have been resected. ??Pancreas is normal in size. ??Spleen is normal in size. ??No adrenal nodules . ??Both kidneys are normal in size, without hydronephro sis or nephrolithiasis. ?? Peritoneum and bowel: ??Bowel loops demonstrate normal wall thickness and caliber. ??There is a small amount of perihepatic free fluid and no free air. ?? Nodes and vessels: ??No retroperitoneal or mesenteric adenopathy by size criteria. ??Aorta and inferior vena cava are normal in size. ?? Miscellaneous: ??No ventral hernias. ??Mild body wall anasarca. PELVIS: ?? Genitourinary: ??Bladder wall thickness is normal but quality of visualization is quite limited by Howard catheter draining the bladder lumen. ?? Miscellaneous: ??No inguinal hernias or adenopathy. ??Mild body wall anasarca. Bones: ??No suspicious bony lesions. ??No vertebral sidney dy compression fractures. ??Prior lumbosacral spine fusio n surgery. ??This produces metal artifact reducing quali ty of visualization in that region of the l umbosacral spine. IMPRESSION: ??Bilateral moderate pleural effusions wit h associated atelectasis at each lung base posteriorly. ??No definite pneumonia found. ??Within the abdomen an d pelvis quality of visualization is somewhat limited by patient motion during image acquisition but no definit e infection or evidence of neoplasm is found. ??Oral contrast was utilized and transits at a normal pace through the small bowel and into the colon lumen. ??Postsurgical changes of spine fusion produces metal artifact mildly degrading quality of visualization in that localized area, but no inflammation is suspected. ??Mild body wall anasarca. Reviewed by: Raymond Calderón M.D. on 04/22/2021 at 15:1 5 ? Approved by: Raymond Calderón M.D. on 04/22/2021 at 15:1 8 ? Procedure Note Interface, Radiology Results In - 2020 3:20 [place]. [address] PATIENT NAME: SHIRIN AGUILLON : 1945 GENDER: F EXAM DATE: 04/22/2021 13:19 ORDERED FROM: [facility] ORDERING PHYSICIAN: JORDAN RAMSEY CC: REDD TREJO -- - - - CONTRAST: READING STATION ID: [id number] mGy: PROCEDURE: CT ABDOMEN PELVIS WITHOUT CO NTRAST INDICATIONS: Abdominal abscess/infectio n suspected TECHNIQUE: After the administration of oral contras t, 5 mm thick sections acquired from the diaphragms to the symphysis. 5 mm coronal and sagittal reformats were performed. For radiation dose reduction, the following was used: automated exposure control, adjustment o f mA and/or kV according to patient size. COMPARISON: [facility], CT, CT ABDOMEN PELVIS WITHOUT CONTRAST, 02/15/2018, 12:18. FINDINGS: Image quality: Reduced by persistent pa tient motion during image acquisition.. ABDOMEN: Lung bases: Lung bases are abnormal wit h basilar atelectasis and moderate bilateral pleural effusions.. Heart size is normal. An esophagogastric tube crosses into the gastric lumen. Oral contrast was administered. Solid organs: Liver is normal in size. Gallbladder appears to have been resected. Pancreas is normal in size. Spleen is normal in size. No adrenal nodules. Both kidneys are normal in size, without hydronephrosis or nephrolithiasis. Peritoneum and bowel: Bowel loops demon strate normal wall thickness and caliber. There is a small amount of perihepatic free fluid and no free air. Nodes and vessels: No retroperitoneal o r mesenteric adenopathy by size criteria. Aorta and inferior vena cava are normal in size. Miscellaneous: No ventral hernias. Mil d body wall anasarca. PELVIS: Genitourinary: Bladder wall thickness i s normal but quality of visualization is quite limited by Howard catheter draining the bladder lumen. Miscellaneous: No inguinal hernias or a denopathy. Mild body wall anasarca. Bones: No suspicious bony lesions. No vertebral body compression fractures. Prior lumbosacral spine fusion surgery. This produces metal artifact reducing quality of visualization in that region of the lumbosacral spine. IMPRESSION: Bilateral moderate pleural effusions with associated atelectasis at each lung base posteriorly. No definite pneumonia found. Within the abdomen and pelvis quality of visualization is somewhat limited by patient motion during image acquisiti on but no definite infection or evidence of neoplasm is found. Oral contrast was utilized and transits at a normal pace through the small bowel and into the colon lumen. Postsurgical changes of spine fusion pro duces metal artifact mildly degrading quality of visualization in that localized area, but no inflammation is suspected. Mild body wall anasarca. Reviewed by: Raymond Calderón M.D. on 03/31 at 15:15 Approved by: Raymond Calderón M.D. on 03/31 at 15:18 Performing Organization Address City/State/ZIP Code [facility] e Number [facility] RADIOLOGY SYSTEM [address] [place] [id number] Arterial blood gas (04/22/2021 1:10 PM PDT) pH, Arterial 7.250 (LC) 7.350 - 7.450 [facility] pCO2, Arterial 19 (LC) 35 - 45 mmHg [facility] pO2, Arterial 124 (H) 80 - 100 mmHg [facility] HCO3, Arterial 8.3 (L) 22.0 - 26.0 [facility] mmol/L DEPT Base Excess, -17.1 (L) -2.0 - 2.0 [facility] Arterial mmol/L DEPT sO2, Arterial 98 (H) <95 % [facility] tHb, arterial 9.1 (L) 12.0 - 18.0 g/dL [facility] Oxyhemoglobin, 95.6 >=85.0 % [facility] arterial fraction DEPT Carboxyhemoglobin, 0.9 <1.5 % fraction [facility] arterial DEPT Methemoglobin, 1.3 0.4 - 1.5 % [facility] arterial fraction DEPT FIO2% 45 % [facility] Liters per Minute 6.00 L/min [facility] Mode of Delivery OXY Mask [facility] ABG Draw Site Right Radial Site [facility] Modified Jordan's Positive [facility] Test DEPT Specimen Blood - Right Radial Performing Organization Address City/State/ZIP Code Phon e Number [facility] DE[facility] [address] [place] [address] XR CHEST 1 VIEW (04/22/2021 10:50 AM PDT) Specimen Narrative Performed At [facility] [place]. [address] PATIENT NAME: SHIRIN AGUILLON : 1945 GENDER: F EXAM DATE: 04/22/2021 ?? 10:34 ORDERED FROM: [facility] ORDERING PHYSICIAN: JORDAN ARMSEY CC: ??-- ??- ??- ??- CONTRAST: ? READING STATION ID: [id number] mGy: PROCEDURE: ??XR CHEST 1 VIEW INDICATIONS: ??dubhoff placement TECHNIQUE: ??One view of the chest was a cquired. ?? COMPARISON: ??[facility], , XR CHEST 1 VIEW, 04/21/2021, 23:26. FINDINGS: ?? Surgical changes and devices: ??Dobbhoff feeding tube is seen with the tip projecting in the body of the stomac h. ??Partially visualized spinal fixation h ardware. Lungs and pleura: ??Low lung volumes. ??Cannot exclude small bilateral pleural effusions with adjacent atelectasis. ??There are bilateral perihilar opacities which are unchanged. Mediastinum: ??Cardiac silhouette and mediastinal contours are stable. ?? Bones and chest wall: ??No suspicious bony lesions. ??Overlying soft tissues appear unremark able. ?? IMPRESSION: ??Dobbhoff tube with the tip projecting in the body of the stomach. Reviewed by: Jorge Wren M.D. on 04/22/2021 at 11:06 ? Approved by: Jorge Wren M.D. on 2020 at 11:21 ? Procedure Note Interface, Radiology Results In - 2020 11:19 [place]. [address] PATIENT NAME: SHIRNI AGUILLON : 1945 GENDER: F EXAM DATE: 04/22/2021 10:34 ORDERED FROM: [facility] ORDERING PHYSICIAN: JORDAN RAMSEY CC: -- - - - CONTRAST: READING STATION ID: [id number] mGy: PROCEDURE: XR CHEST 1 VIEW INDICATIONS: dubhoff placement TECHNIQUE: One view of the chest was ac quired. COMPARISON: [facility], , XR CHEST 1 VIEW, 04/21/2021, 23:26. FINDINGS: Surgical changes and devices: Dobbhoff feeding tube is seen with the tip projecting in the body of the stomach. Partially visualized spinal fixation hardware. Lungs and pleura: Low lung volumes. Ca nnot exclude small bilateral pleural effusions with adjacent atelectasis. There are bilateral perihilar opacities which are unchanged. Mediastinum: Cardiac silhouette and med iastinal contours are stable. Bones and chest wall: No suspicious bon y lesions. Overlying soft tissues appear unremarkable. IMPRESSION: Dobbhoff tube with the tip projecting in the body of the stomach. Reviewed by: Jorge Wren M.D. on 2020 at 11:06 Approved by: Jorge Wren M.D. on 2020 at 11:21 Performing Organization Address City/[facility]/ZIP Code Phon e Number [facility] [address] [place] [address] POCT glucose PRN (04/22/2021 10:02 AM PDT) POCT Glucose, 191 (A) 65 - 99 mg/dL [facility] POCT (CLIA [id number]) POCT Glucose Test Note: Reference [facility] Comment [facility] revised HOSPITAL POCT September 24, (CLIA [id number]) 2018. Specimen Blood - Capillary blood (substance) Performing Organization Address [facility]/ZIP Code Phon e Number [facility] [address] [facility] [address] POCT (CLIA [id number]) Arterial blood gas (04/22/2021 9:45 AM PDT) pH, Arterial 7.224 (LC) 7.350 - 7.450 [facility] pCO2, Arterial 19 (LC) 35 - 45 mmHg [facility] pO2, Arterial 126 (H) 80 - 100 mmHg [facility] HCO3, Arterial 7.9 (L) 22.0 - 26.0 [facility] mmol/L DEPT Base Excess, -17.7 (L) -2.0 - 2.0 [facility] Arterial mmol/L DEPT sO2, Arterial 98 (H) <95 % [facility] tHb, arterial 11.8 (L) 12.0 - 18.0 g/dL [facility] Oxyhemoglobin, 95.6 >=85.0 % [facility] arterial fraction DEPT Carboxyhemoglobin 0.6 <1.5 % fraction [facility] , arterial DEPT Methemoglobin, 1.5 0.4 - 1.5 % [facility] arterial fraction DEPT FIO2% 45 % [facility] Liters per Minute 6.00 L/min [facility] Mode of Delivery OXY Mask [facility] ABG Draw Site Right Brachial Site [facility] Modified Jordan's Positive [facility] Test DEPT Specimen Blood - Right Brachial Performing Organization Address City/State/ZIP Code Phon e Number [facility]PIR[facility] DEPT [address] [place], [place] [address] Lactic acid (04/22/2021 9:32 AM PDT) Pathologist Sig nature Lactic Acid 1.5 0.4 - 2.0 mmol/L [facility] L AB Specimen Blood - Venous blood (substance) Performing Organization Address [facility] Phon e Number [facility] LAB [address] [facility] A [phone] Manual differential (04/22/2021 8:50 AM PDT) % Neutrophils 87 % [facility] Segmented, Manual HOSPITAL LAB % Lymphocytes, 5 % [facility] HOSPITAL LAB % Monocytes, Manual 5 % [facility] % Bands, Manual 2 % [facility] % Metamyelocytes, 1 % [facility] HOSPITAL LAB Abs. Segs, Manual 22.4 (H) 1.6 - 6.9 [facility] x10e3/uL HOSPITAL LAB Abs. Lymphocytes, 1.3 1.1 - 4.8 [facility] Manual x10e3/uL HOSPITAL LAB Abs. Monocytes, 1.3 (H) 0.0 - 1.0 [facility] Manual x10e3/uL HOSPITAL LAB Abs. Bands, Manual 0.5 0.0 - 0.5 [facility] x10e3/uL HOSPITAL LAB Abs. Metamyelocytes, 0.3 (H) <=0.0 x10e3/uL [facility] HOSPITAL LAB Total Counted 100 [facility] Abs. Neutrophils 22,873.0 (H) 1,600.0-6,900.0 [facility] (Manual) /uL HOSPITAL LAB nRBC 1 % [facility] WBC Morphology Normal [facility] Anisocytosis 1+ [facility] Hypochromia 1+ [facility] Microcytes 1+ [facility] Platelet Estimate Adequate Adequate [facility] LAB Specimen Blood - Venous blood (substance) Performing Organization Address City/[facility] Phon e Number [facility] [address] [facility] A [address] Complete blood count with diff (04/22/2021 8:50 AM PDT) Pathologist [facility] WBC Auto 25.7 (H) 3.8 - 10.1 x10e3/uL [facility] RBC 3.66 (L) 3.90 - 5.20 x10e6/uL [facility] Hemoglobin 9.1 (L) 12.0 - 15.6 g/dL [facility] Hematocrit 31.0 (L) 35.0 - 46.0 % [facility] MCV 85 81 - 100 fL [facility] MCH 24.9 (L) 27.0 - 35.0 pg [facility] MCHC 29.4 (L) 32.0 - 37.0 g/dL [facility] RDW 21.9 (H) 12.3 - 15.4 % [facility] Platelets 311 150 - 400 x10e3/uL [facility] MPV 10.7 (H) 7.4 - 10.4 fL [facility] NRBC % 0 0 /100 WBCs [facility] Abs. NRBC 0.1 x10e3/uL [facility] Specimen Blood - Venous blood (substance) Performing Organization Address City/[facility]/ZIP Code [facility] [address] [facility] A [phone] B-type natriuretic peptide (04/22/2021 8:50 AM PDT) [facility] NT-proBNP 43,003 (H) 0 - 301 pg/mL [facility] Specimen Blood - Venous blood (substance) Performing Organization Address City/[facility]/ZIP [facility] Phon e [facility] LAB [address] [facility] A [phone] Hold Lav Top - EDTA (04/22/2021 7:41 AM PDT) [facility] Extra Tube Hold for [facility] add-ons.Comment: LAB Auto resulted. Specimen Blood - Venous blood (substance) Performing Organization Address City/[facility]/ZIP Code [facility] [address] [facility] [address] [address] Acetone (KETONES), Qualitative (04/22/2021 7:22 AM PDT) Pathologist Sig nature Acetone Qualitative Positive (A) Negative [facility] Specimen Blood - Venous blood (substance) Performing Organization Address City/[facility]/ZIP Code Phon e Number [facility] [address] [facility] A [address] Osmolality, serum (04/22/2021 7:22 AM PDT) Pathologist Sig [facility] Osmolality Measured 334 (H) 275 - 300 n/a [facility] Specimen Blood - Venous blood (substance) Performing Organization Address [facility]/ZIP Code Phon e Number [facility] [address] [facility] A [address] Comprehensive Metabolic Panel (04/22/2021 7:22 AM PDT) Pathologist Sig [facility] Sodium 148 (H) 134 - 144 [facility] mmol/L [facility] LAB Potassium 4.2 3.5 - 5.2 [facility] mmol/L [facility] Chloride 107 97 - 108 mmol/L [facility] CO2 9 (L) 18 - 29 mmol/L [facility] Anion Gap 32 (H) 3 - 11 mmol/L [facility] BUN 42.0 (H) 8.0 - 27.0 [facility] mg/dL [facility] LAB Creatinine 1.85 (H) 0.57 - 1.00 [facility] mg/dL [facility] LAB Glucose, Serum 211 (H) 65 - 99 mg/dL [facility] Calcium 9.1 8.5 - 10.1 [facility] mg/dL [facility] AST 29 0 - 50 U/L [facility] ALT 22 0 - 32 U/L [facility] Alkaline Phosphatase 80 25 - 165 U/L [facility] Total Protein 5.8 (L) 6.4 - 8.4 g/dL [facility] eGFR (CKD-EPI) 27 (L) >60 (CKD-EPI) [facility] mL/min/1.73 m2 HOSPITAL LAB Albumin 3.2 (L) 3.4 - 5.0 g/dL [facility] Bilirubin, Total 0.3 <=1.2 mg/dL [facility] BUN/Creatinine Ratio 22.7 7.0 - 24.0 [facility] Specimen Blood - Venous blood (substance) Performing Organization Address City/[facility]/ZIP Code Phon e [facility] LAB [address] [facility] A [address] POCT glucose for patients who are NPO, TPN infusion or continuous tube feedings (04/22/2021 2:56 AMPDT) POCT Glucose, 164 (A) 65 - 99 mg/dL [facility] POCT (CLIA [id number]) POCT Glucose Test Note: Reference [facility] HOSPITAL POCT September 24, (CLIA [id number]) 2018. Specimen Blood - Capillary blood (substance) Performing Organization Address City/[facility] Code Phon e Number [facility] [address] [facility] A [address] POCT (CLIA [id number]) XR CHEST 1 VIEW (04/21/2021 11:38 PM PDT) Specimen Narrative Performed At [facility] [place], [place]. [id number] PATIENT NAME: SHIRIN AGUILLON : 1945 GENDER: F EXAM DATE: 04/21/2021 ?? 23:26 ORDERED FROM: [facility] ORDERING PHYSICIAN: ANA MARIA NARVAEZ CC: JORDAN RAMSEY -- ??- ??- ??- CONTRAST: ? READING STATION ID: [id number] mGy: PROCEDURE: ??XR CHEST 1 VIEW INDICATIONS: ??chest pain TECHNIQUE: ??One view of the chest was a cquired. ?? COMPARISON: ??[facility], CR, XR CHEST 1 VIEW, 04/20/2021, 18:31. FINDINGS: ?? Surgical changes and devices: ??None. ?? Lungs and pleura: ??There is cephalization of pulmonar y vasculature and bilateral perihilar opacification concerning for pulmonary edema/CHF. Mediastinum: ??Mediastinal contours appear normal. ??Heart size is normal. ?? Bones and chest wall: ??No suspicious bony lesions. ??Overlying soft tissues appear unremark able. ?? IMPRESSION: ??Radiographic findings concerning for pulmonary edema/CHF. Reviewed by: Sindi Rahman MD, PhD on 04/22/2021 at 9:13 ? Approved by: Sindi Rahman MD, PhD on 04/22/2021 at 9:14 ? Procedure Note Interface, Radiology Results In - 2020 9:12 [place] [address] PATIENT NAME: SHIRIN AGUILLON : 1945 GENDER: F EXAM DATE: 04/21/2021 23:26 ORDERED FROM: [facility] ORDERING PHYSICIAN: ANA MARIA NARVAEZ CC: JORDAN RAMSEY -- - - - CONTRAST: READING STATION ID: [id number] mGy: PROCEDURE: XR CHEST 1 VIEW INDICATIONS: chest pain TECHNIQUE: One view of the chest was ac quired. COMPARISON: [facility], , XR CHEST 1 VIEW, 04/20/2021, 18:31. FINDINGS: Surgical changes and devices: None. Lungs and pleura: There is cephalizatio n of pulmonary vasculature and bilateral perihilar opacification concerning for pulmonary edema/CHF. Mediastinum: Mediastinal contours appea r normal. Heart size is normal. Bones and chest wall: No suspicious bon y lesions. Overlying soft tissues appear unremarkable. IMPRESSION: Radiographic findings abigail rning for pulmonary edema/CHF. Reviewed by: Sindi Rahman MD, Ph D on 04/22/2021 at 9:13 Approved by: Sindi Rahman MD, Ph D on 04/22/2021 at 9:14 Performing Organization Address City/State/ZIP Code [facility] e Number [facility] [address] [place] [address] POCT glucose PRN (04/21/2021 8:40 PM PDT) POCT Glucose, 176 (A) 65 - 99 mg/dL [facility] POCT (CLIA [id number]) POCT Glucose Test Note: Reference [facility] revised HOSPITAL POCT September 24 (CLIA [id number]) 2018. Specimen Blood - Capillary blood (substance) Performing Organization Address City/[facility]/ZIP Code Phon e Number [place] [id number] [facility] A [address] POCT (CLIA [id number]) POCT glucose for patients who are NPO, TPN infusion or continuous tube feedings (04/21/2021 5:23 PMPDT) POCT Glucose, 169 (A) 65 - 99 mg/dL [facility] POCT (CLIA [id number]) POCT Glucose Test Note: Reference [facility] POCT September 24 (CLIA [id number]) 2018. Specimen Blood - Capillary blood (substance) Performing Organization Address [facility] Code Phon e Number [address] A [address] POCT (CLIA [id number]) POCT glucose for patients who are NPO, TPN infusion or continuous tube feedings (04/21/2021 3:35 PMPDT) POCT Glucose, 184 (A) 65 - 99 mg/dL [facility] POCT (CLIA [id number]) POCT Glucose Test Note: Reference [facility] POCT September 24 (CLIA [id number]) 2018. Specimen Blood - Capillary blood (substance) Performing Organization Address City/[facility]/ZIP Code Phon e Number [place] [id number] [facility] A [address] POCT (CLIA [id number]) POCT glucose PRN (04/21/2021 10:44 AM PDT) POCT Glucose, 147 (A) 65 - 99 mg/dL [facility] POCT (CLIA [id number]) POCT Glucose Test Note: Reference [facility] Comment [place] revised HOSPITAL POCT September 24, (CLIA [id number]) 2018. Specimen Blood - Capillary blood (substance) Performing Organization Address City/State/ZIP Code Phon e Number [facility] [address] [facility] [address] [facility] [address] POCT (CLIA [id number]) Comprehensive Metabolic Panel (04/21/2021 10:43 AM PDT) Pathologist Sig nature Sodium 147 (H) 134 - 144 [facility] mmol/L [facility] Potassium 3.7 3.5 - 5.2 [facility] mmol/L [facility] Chloride 111 (H) 97 - 108 mmol/L [facility] CO2 17 (L) 18 - 29 mmol/L [facility] Anion Gap 19 (H) 3 - 11 mmol/L [facility] BUN 33.0 (H) 8.0 - 27.0 [facility] mg/dL [facility] Creatinine 1.54 (H) 0.57 - 1.00 [facility] mg/dL [facility] Glucose, Serum 172 (H) 65 - 99 mg/dL [facility] Calcium 8.3 (L) 8.5 - 10.1 [facility] mg/dL [facility] AST 21 0 - 50 U/L [facility] ALT 17 0 - 32 U/L [facility] Alkaline Phosphatase 62 25 - 165 U/L [facility] Total Protein 5.0 (L) 6.4 - 8.4 g/dL [facility] eGFR (CKD-EPI) 33 (L) >60 (CKD-EPI) [facility] mL/min/1.73 m2 HOSPITAL LAB Albumin 2.6 (L) 3.4 - 5.0 g/dL [facility] Bilirubin, Total 0.3 <=1.2 mg/dL [facility] BUN/Creatinine Ratio 21.4 7.0 - 24.0 [facility] Specimen Blood - Blood (substance) Performing Organization Address [facility] Phon e Number [facility] [address] [facility] A [address] Manual differential (04/21/2021 5:02 AM PDT) % Neutrophils 94 % [facility] Segmented, [facility] HOSPITAL LAB % Lymphocytes, Manual 4 % [facility] % Monocytes, Manual 1 % [facility] % Metamyelocytes, 1 % [facility] LAB Abs. Segs, Manual 14.9 (H) 1.6 - 6.9 [facility] x10e3/uL HOSPITAL LAB Abs. Lymphocytes, 0.6 (L) 1.1 - 4.8 [facility] x10e3/uL HOSPITAL LAB Abs. Monocytes, 0.2 0.0 - 1.0 [facility] x10e3/uL [facility] Abs. Metamyelocytes, 0.2 (H) <=0.0 x10e3/uL [facility] LAB Total Counted 100 [facility] Abs. Neutrophils 14,946.0 (H) 1,600.0-6,900.0 [facility] (Manual) /uL HOSPITAL LAB nRBC 1 % [facility] WBC Morphology Normal [facility] Anisocytosis 1+ [facility] Polychromasia 1+ [facility] Platelet Estimate Adequate Adequate [facility] Specimen Blood - Venous blood (substance) Performing Organization Address City/[facility] Phon e Number [facility] [address] [facility] A [address] Complete blood count with diff (04/21/2021 5:02 AM PDT) Pathologist Sig nature WBC Auto 15.9 (H) 3.8 - 10.1 x10e3/uL [facility] HOSPITA L LAB RBC 3.26 (L) 3.90 - 5.20 x10e6/uL [facility] Hemoglobin 8.2 (L) 12.0 - 15.6 g/dL [facility] Hematocrit 27.0 (L) 35.0 - 46.0 % [facility] MCV 83 81 - 100 fL [facility] MCH 25.2 (L) 27.0 - 35.0 pg [facility] MCHC 30.4 (L) 32.0 - 37.0 g/dL [facility] RDW 21.1 (H) 12.3 - 15.4 % [facility] Platelets 240 150 - 400 x10e3/uL [facility] MPV 9.7 7.4 - 10.4 [facility] LAB NRBC % 0 0 /100 WBCs [facility] Abs. NRBC 0.0 x10e3/uL [facility] Specimen Blood - Venous blood (substance) Performing Organization Address [facility] Phon e [facility] [address] [facility] A [address] POCT glucose for patients who are NPO, TPN infusion or continuous tube feedings (04/21/2021 3:39 AMPDT) POCT Glucose, 148 (A) 65 - 99 mg/dL [facility] POCT (CLIA [id number]) POCT Glucose Test Note: Reference [facility] Comment [facility] POCT September 24 (CLIA [id number]) 2018. Specimen Blood - Capillary blood (substance) Performing Organization Address [facility] Phon e Number [facility] [address] [facility] A [address] POCT (CLIA [id number]) POCT glucose for patients who are NPO, TPN infusion or continuous tube feedings (04/20/2021 10:09 PMPDT) POCT Glucose, 198 (A) 65 - 99 mg/dL [facility] POCT (CLIA [id number]) POCT Glucose Test Note: Reference [facility] Comment [place] revised HOSPITAL POCT September 24 (CLIA [id number]) 2018. Specimen Blood - Capillary blood (substance) Performing Organization Address [facility] Phon e Number [facility] [address] [facility] [place] [address] POCT (CLIA [id number]) XR CHEST 1 VIEW (04/20/2021 6:57 PM PDT) Specimen Narrative Performed At [facility] [place]. [address] PATIENT NAME: SHIRIN AGUILLON : 1945 GENDER: F EXAM DATE: 04/20/2021 ?? 18:31 ORDERED FROM: [facility] ORDERING PHYSICIAN: JORDAN RAMSEY CC: ??-- ??- ??- ??- CONTRAST: ? READING STATION ID: [id number] mGy: PROCEDURE: ??XR CHEST 1 VIEW INDICATIONS: ??doboff placement TECHNIQUE: ??One view of the chest was a cquired. ?? COMPARISON: ??[facility], CT, CT KUB, 04/17/2021, 8:09. ??[facility], CR, XR CHES T 1 VIEW, 04/16/2021, 12:17. FINDINGS: ?? Surgical changes and devices: ??Feeding tube is coiled overlying the mid esophagus with the distal tip projecting cephalad, overlying the proximal-most esophagus. ??Unchanged left sided ?? Lungs and pleura: ??Patchy appearance of bilateral basilar opacities are noted. Mediastinum: ??Mediastinal contours appear normal. ??Heart size is normal. ?? Bones and chest wall: ??No suspicious bony lesions. ??Overlying soft tissues appear unremark able. ?? IMPRESSION: ?? 1. Dobbhoff catheter is noted to be coiled overlying t he mid esophagus with distal tip extending cephalad overlying the proximal most portion of the esophagus. ??It is noted that after this image was taken, tube rudolph d been removed. 2. Bibasilar opacities which could represent edema, atelectasis or developing pneumonia. ?? Reviewed by: Mily Chavez M.D. on 04/20/2021 at 18:58 ? Approved by: Mily Chavez M.D. on 2020 at 19:02 ? Procedure Note Interface, Radiology Results In - 2020 7:03 [place]. [address] PATIENT NAME: SHIRIN AGUILLON : 1945 GENDER: F EXAM DATE: 04/20/2021 18:31 ORDERED FROM: [facility] ORDERING PHYSICIAN: JORDAN RAMSEY CC: -- - - - CONTRAST: READING STATION ID: [id number] mGy: PROCEDURE: XR CHEST 1 VIEW INDICATIONS: doboff placement TECHNIQUE: One view of the chest was ac quired. COMPARISON: [facility], CT, CT KUB, 04/17/2021, 8:09. [facility], CR, XR CHEST 1 VIEW, 04/16/2021, 12:17. FINDINGS: Surgical changes and devices: Feeding t ube is coiled overlying the mid esophagus with the distal tip projecting cephalad, overlying the proximal-most esophagus. Unchanged left sided Lungs and pleura: Patchy appearance of bilateral basilar opacities are noted. Mediastinum: Mediastinal contours appea r normal. Heart size is normal. Bones and chest wall: No suspicious bon y lesions. Overlying soft tissues appear unremarkable. IMPRESSION: 1. Dobbhoff catheter is noted to be coil ed overlying the mid esophagus with distal tip extending cephalad overlying the proximal most portion of the esophagus. It is noted that after this image was taken, tube had been removed. 2. Bibasilar opacities which could repre sent edema, atelectasis or developing pneumonia. Reviewed by: Mily Chavez M.D. on 2020 at 18:58 Approved by: Mily Chavez M.D. on 2020 at 19:02 Performing Organization Address City/State/ZIP Code [facility] e Number [facility] [address] [place] [address] POCT glucose for patients who are NPO, TPN infusion or continuous tube feedings (04/20/2021 4:00 PMPDT) POCT Glucose, 183 (A) 65 - 99 mg/dL [facility] POCT (CLIA [id number]) POCT Glucose Test Note: Reference [facility] Comment [place] revised HOSPITAL POCT September 24 (CLIA [id number]) 2018. Specimen Blood - Capillary blood (substance) Performing Organization Address City/[facility]/ZIP [facility] Phon e Number [facility] [address] [facility] A [address] POCT (CLIA [id number]) POCT glucose for patients who are NPO, TPN infusion or continuous tube feedings (04/20/2021 8:12 AMPDT) Pathologist [facility] POCT Glucose, 155 (A) 65 - 99 mg/dL [facility] POCT (CLIA [id number]) POCT Glucose Test Note: Reference [facility] Comment [facility] POCT September 24 (CLIA [id number]) 2018. Specimen Blood - Capillary blood (substance) Performing Organization Address City/[facility] Phon e Number [facility] [address] [facility] A [address] POCT (CLIA [id number]) Complete blood count with diff (04/20/2021 5:22 AM PDT) [facility] WBC Auto 18.4 (H) 3.8 - 10.1 [facility] x10e3/uL HOSPITAL LAB RBC 3.25 (L) 3.90 - 5.20 [facility] x10e6/uL HOSPITAL LAB Hemoglobin 7.9 (L) 12.0 - 15.6 [facility] g/dL [facility] Hematocrit 26.5 (L) 35.0 - 46.0 % [facility] MCV 82 81 - 100 fL [facility] MCH 24.3 (L) 27.0 - 35.0 pg [facility] MCHC 29.8 (L) 32.0 - 37.0 [facility] g/dL [facility] RDW 20.4 (H) 12.3 - 15.4 % [facility] Platelets 248 150 - 400 [facility] x10e3/uL HOSPITAL LAB MPV 9.7 7.4 - 10.4 fL [facility] NRBC % 0 0 /100 WBCs [facility] Abs. NRBC 0.0 x10e3/uL [facility] % Neutrophils 83 % [facility] % Lymphocytes 8 % [facility] % Monocytes 5 % [facility] % Eosinophils 0 % [facility] % Basophils 0 % [facility] Abs. Neutrophils 15.2 (H) 1.6 - 6.9 [facility] x10e3/uL [facility] Abs. Lymphocytes 1.4 1.1 - 4.8 [facility] x10e3/uL [facility] Abs. Monocytes 1.0 0.0 - 1.0 [facility] x10e3/uL [facility] Abs. Eosinophils 0.1 0.0 - 0.5 [facility] x10e3/uL [facility] Abs. Basophils 0.0 0.0 - 0.4 [facility] x10e3/uL [facility] Abs. Neutrophils 15,200.0 (H) 1,600.0-6,900. [facility] (Auto) 0 /uL [facility] Specimen Blood - Venous blood (substance) Performing Organization Address City/State/ZIP Code Phon e Number [facility] [address] [facility] [id number] Comprehensive Metabolic Panel (04/20/2021 5:22 AM PDT) [facility] nature Sodium 141 134 - 144 [facility] mmol/L [facility] Potassium 4.0 3.5 - 5.2 [facility] mmol/L [facility] Chloride 104 97 - 108 mmol/L [facility] CO2 23 18 - 29 mmol/L [facility] Anion Gap 14 (H) 3 - 11 mmol/L [facility] BUN 30.0 (H) 8.0 - 27.0 [facility] mg/dL [facility] Creatinine 1.73 (H) 0.57 - 1.00 [facility] mg/dL [facility] Glucose, Serum 171 (H) 65 - 99 mg/dL [facility] Calcium 8.7 8.5 - 10.1 [facility] mg/dL HOSPITAL LAB AST 22 0 - 50 U/L [facility] ALT 18 0 - 32 U/L [facility] Alkaline Phosphatase 74 25 - 165 U/L [facility] Total Protein 5.1 (L) 6.4 - 8.4 g/dL [facility] eGFR (CKD-EPI) 29 (L) >60 (CKD-EPI) [facility] mL/min/1.73 m2 HOSPITAL LAB Albumin 2.7 (L) 3.4 - 5.0 g/dL [facility] Bilirubin, Total 0.3 <=1.2 mg/dL [facility] BUN/Creatinine Ratio 17.3 7.0 - 24.0 [facility] Specimen Blood - Venous blood (substance) Performing Organization Address [facility] LAB [address] [facility] A [address] POCT glucose for patients who are NPO, TPN infusion or continuous tube feedings (04/20/2021 4:12 AMPDT) POCT Glucose, 149 (A) 65 - 99 mg/dL [facility] POCT (CLIA [id number]) POCT Glucose Test Note: Reference [facility] Comment [place] revised HOSPITAL POCT September 24 (CLIA [id number]) 2018. Specimen Blood - Capillary blood (substance) Performing Organization Address [facility] Phon e Number [place] [address] [facility] A [address] POCT (CLIA [id number]) POCT glucose (04/19/2021 10:20 PM PDT) POCT Glucose, 202 (A) 65 - 99 mg/dL [facility] POCT (CLIA [id number]) POCT Glucose Test Note: Reference [facility] Comment [place] revised HOSPITAL POCT September 24 (CLIA [id number]) 2018. Specimen Blood - Capillary blood (substance) Performing Organization Address [facility] Phon e Number [place] [address] [facility] A [address] POCT (CLIA [id number]) POCT glucose for patients who are NPO, TPN infusion or continuous tube feedings (04/19/2021 3:37 PMPDT) POCT Glucose, 205 (A) 65 - 99 mg/dL [facility] POCT (CLIA [id number]) POCT Glucose Test Note: Reference [facility] revised HOSPITAL POCT September 24 (CLIA [id number]) 2018. Specimen Blood - Capillary blood (substance) Performing Organization Address City/[facility]/ZIP Code Phon e Number [place] [address] [facility] A [address] POCT (CLIA [id number]) POCT glucose for patients who are NPO, TPN infusion or continuous tube feedings (04/19/2021 11:58 AMPDT) POCT Glucose, 213 (A) 65 - 99 mg/dL [facility] POCT (CLIA [id number]) POCT Glucose Test Note: Reference [facility] POCT September 24 (CLIA [id number]) 2018. Specimen Blood - Capillary blood (substance) Performing Organization Address City/[facility]/ZIP Code Phon e Number [facility] [address] [facility] A [address] POCT (CLIA [id number]) POCT glucose for patients who are NPO, TPN infusion or continuous tube feedings (04/19/2021 7:42 AMPDT) POCT Glucose, 172 (A) 65 - 99 mg/dL [facility] POCT (CLIA [id number]) POCT Glucose Test Note: Reference [facility] revised HOSPITAL POCT September 24 (CLIA [id number]) 2018. Specimen Blood - Capillary blood (substance) Performing Organization Address City/[facility] Code Phon e Number [facility] [address] [facility] A [id number] POCT (CLIA [id number]) POCT glucose for patients who are NPO, TPN infusion or continuous tube feedings (04/19/2021 6:25 AMPDT) POCT Glucose, 189 (A) 65 - 99 mg/dL [facility] POCT (CLIA [id number]) POCT Glucose Test Note: Reference [facility] revised HOSPITAL POCT September 24, (CLIA [id number]) 2018. Specimen Blood - Capillary blood (substance) Performing Organization Address City/[facility] Code Phon e Number [place] [address] [facility] A [address] POCT (CLIA [id number]) Complete blood count (04/19/2021 5:11 AM PDT) Pathologist Sig nature WBC Auto 15.2 (H) 3.8 - 10.1 x10e3/uL [facility] L LAB RBC 2.89 (L) 3.90 - 5.20 x10e6/uL [facility] Hemoglobin 7.1 (L) 12.0 - 15.6 g/dL [facility] Hematocrit 23.2 (L) 35.0 - 46.0 % [facility] MCV 80 (L) 81 - 100 fL [facility] MCH 24.6 (L) 27.0 - 35.0 pg [facility] MCHC 30.6 (L) 32.0 - 37.0 g/dL [facility] RDW 19.8 (H) 12.3 - 15.4 % [facility] Platelets 227 150 - 400 x10e3/uL [facility] MPV 10.2 7.4 - 10.4 [facility] LAB NRBC % 0 0 /100 WBCs [facility] Abs. NRBC 0.0 x10e3/uL [facility] Specimen Blood - Venous blood (substance) Performing Organization Address City/[facility]/ZIP Code Phon e [facility] LAB [address] [facility] A [address] Ferritin (04/19/2021 5:11 AM PDT) Pathologist Sig nature Ferritin 99 13 - 150 ng/mL [facility] Specimen Blood - Venous blood (substance) Performing Organization Address [facility] Phon [facility] [address] [facility] A [address] Renal function panel (04/19/2021 5:11 AM PDT) Pathologist Sig nature Sodium 140 134 - 144 [facility] mmol/L HOSPITAL LAB Potassium 4.1 3.5 - 5.2 [facility] mmol/L HOSPITAL LAB Chloride 103 97 - 108 mmol/L [facility] CO2 23 18 - 29 mmol/L [facility] BUN 28.0 (H) 8.0 - 27.0 [facility] mg/dL [facility] Creatinine 1.62 (H) 0.57 - 1.00 [facility] mg/dL [facility] eGFR (CKD-EPI) 31 (L) >60 (CKD-EPI) [facility] mL/min/1.73 m2 [facility] Glucose, Serum 204 (H) 65 - 99 mg/dL [facility] Calcium 8.1 (L) 8.5 - 10.1 [facility] mg/dL [facility] Phosphorus 3.9 2.5 - 4.9 mg/dL [facility] Albumin 2.6 (L) 3.4 - 5.0 g/dL [facility] BUN/Creatinine Ratio 17.3 7.0 - 24.0 [facility] Specimen Blood - Venous blood (substance) Performing Organization Address City/[facility]/ZIP Code Phon [facility] [address] [facility] A [address] Lactic acid (04/19/2021 5:11 AM PDT) Pathologist Sig nature Lactic Acid 0.9 0.4 - 2.0 mmol/L [facility] L AB Specimen Blood - Venous blood (substance) Performing Organization Address City/[facility]/ZIP Code Phon [facility] [address] [facility] A [address] Troponin (04/19/2021 5:11 AM PDT) Pathologist Sig nature Troponin T 0.071 (HC) <0.020 ug/L [facility] Comment: HOSPITAL LAB Note: Reference [place] revised October 15, 2020 Note: Critical Value parameters revised October 15, 2020. Specimen Blood - Venous blood (substance) Performing Organization Address [facility] e [facility] LAB [address] [facility] A [address] POCT glucose PRN (04/19/2021 3:14 AM PDT) POCT Glucose, 191 (A) 65 - 99 mg/dL [facility] POCT (CLIA [id number]) POCT Glucose Test Note: Reference [facility] Comment [place] revised HOSPITAL POCT September 24 (CLIA [id number]) 2018. Specimen Blood - Capillary blood (substance) Performing Organization Address [facility] e [address] A [address] POCT (CLIA [id number]) POCT glucose for patients who are NPO, TPN infusion or continuous tube feedings (04/18/2021 8:44 PMPDT) POCT Glucose, 212 (A) 65 - 99 mg/dL [facility] POCT (CLIA [id number]) POCT Glucose Test Note: Reference [facility] Comment Ranges revised HOSPITAL POCT September 24 (CLIA [id number]) 2018. Specimen Blood - Capillary blood (substance) Performing Organization Address [facility] e Number [address] A [address] POCT (CLIA [id number]) POCT glucose (04/18/2021 12:49 PM PDT) POCT Glucose, 175 (A) 65 - 99 mg/dL [facility] POCT (CLIA [id number]) POCT Glucose Test Note: Reference [facility] Comment Ranges revised HOSPITAL POCT September 24, (CLIA [id number]) 2018. Specimen Blood - Capillary blood (substance) Performing Organization Address City/State/ZIP Code Phon e Number [facility] [address] [place] [address] POCT (CLIA [id number]) MISCELLANEOUS LAB TEST (04/18/2021 11:32 AM PDT) Pathology Final SEE DETAILS [facility] Diagnosis Comment: PATHOLOGY Patient: SHIRIN AGUILLON Case: [id number] Result ID: [id number] Ordering Provider: PATRIA CRUZ MD Collected Date: 04/18/21 Clinical History: ? L89.899 - Pressure ulcer of other site, unspecified stage. ? FINAL DIAGNOSIS ? RIGHT LEG: ? A. Partially necrotic fibroa dipose tissue with organizing abscess and dystrophic calcification, negative for malignancy (see Comment). ? B. No specific bacteria or f ungal organisms identified with special stains (Gram stain, GMS). ? COMMENT: ? The inflammatory changes pre sent in this specimen are relatively nonspecific and correlation with clinical findings, ? including culture, is sugges kenyon to determine etiology and rule out pyoderma gangrenosum. ?Raymond Anderson, ?Pathologist ?06/25/21 10:00 ? GROSS DESCRIPTION: ? Received in a cloudy fluid ( presumed saline) in a container designated Shirin Aguillon and per the requisition ? bilateral calf tissue is a 4.0 x 1.5 x 1.0 cm piece of discolored sharp-yellow soft tissue tissue with an overlying 4.0 x 1.5 cm discolored possibly necrotic skin. Serial sectioning reveals discolored sharp-yellow to light woodson cut surfaces. Concrete Puddler sections are submitted in 1 cassette. The remaining specimen is held fresh in the [facility] refrigerator for possible future studies. (AAS/chayito) ? MICROSCOPIC DESCRIPTION ? In compliance with [facility] regul ations, the pathologist s signature on this report indicates that the case has been ? personally reviewed by the p athologist. Microscopic examination was used to arrive at the diagnosis unless indicated ? otherwise. ([facility]/) ? [facility] - [facility] ??[address], [place] [address] - ??CLIA: [id number] ? End of Report ? Specimen Tissue - Structure of right lower limb ( body structure) Performing Organization Address City/State/ZIP Code Phon e Number [facility] [address] [facility], [place], [place] [address] Culture, Deep Abscess Aerobic&Anaerobic w/gram stain (04/18/2021 11:31 AM PDT) Culture Light Growth Pseudomonas [facility] aeruginosa [facility] LAB Culture Heavy Growth Normal [facility] Culture Light Growth Zenaida albicans [facility] Comment: HOSPITAL LAB Susceptibility testing is not routinely performed on t his organism from this source. Gram Stain Result Few Polymorphonuclear Located within [facility] HOSPITAL LAB Gram Stain Result Moderate Mixed bud [facility] Specimen Tissue - Structure of right lower limb ( body structure) Narrative Performed At No anaerobic growth [facility] Organism Antibiotic Method Susceptibility Pseudomonas aeruginosa Amikacin FERNANDO <=2 ug/ml : Susceptible Pseudomonas aeruginosa Ceftazidime FERNANDO 2 ug/ml: Susceptible Pseudomonas aeruginosa Ciprofloxacin FERNANDO <=0.25 ug /ml: Susceptible Pseudomonas aeruginosa Gentamicin FERNANDO <=1 ug/ml : Susceptible Pseudomonas aeruginosa Meropenem FERNANDO 0.5 ug/ml : Susceptible Pseudomonas aeruginosa Piperacillin + Tazobactam FERNANDO 8 ug/ml: Susceptible Pseudomonas aeruginosa Tobramycin FERNANDO <=1 ug/ml : Susceptible Performing Organization Address [facility] [address] [facility] A [address] POCT glucose for patients who are NPO, TPN infusion or continuous tube feedings (04/18/2021 8:00 AMPDT) POCT Glucose, 160 (A) 65 - 99 mg/dL [facility] POCT (CLIA [id number]) POCT Glucose Test Note: Reference [facility] POCT September 24 (CLIA [id number]) 2018. Specimen Blood - Capillary blood (substance) Performing Organization Address [facility]/[place] [address] [facility] A [address] POCT (CLIA [id number]) POCT glucose for patients who are NPO, TPN infusion or continuous tube feedings (04/18/2021 2:49 AMPDT) POCT Glucose, 108 (A) 65 - 99 mg/dL [facility] POCT (CLIA [id number]) POCT Glucose Test Note: Reference [facility] Comment Ranges revised HOSPITAL POCT September 24 (CLIA [id number]) 2018. Specimen Blood - Capillary blood (substance) Performing Organization Address [facility] e Number [facility] [address] [facility] A [address] POCT (CLIA [id number]) POCT glucose for patients who are NPO, TPN infusion or continuous tube feedings (04/17/2021 8:30 PMPDT) POCT Glucose, 120 (A) 65 - 99 mg/dL [facility] POCT (CLIA [id number]) POCT Glucose Test Note: Reference [facility] Comment Ranges revised HOSPITAL POCT September 24 (CLIA [id number]) 2018. Specimen Blood - Capillary blood (substance) Performing Organization Address [facility] e [place] [address] [facility] A [address] POCT (CLIA [id number]) POCT glucose for patients who are NPO, TPN infusion or continuous tube feedings (04/17/2021 6:07 PMPDT) POCT Glucose, 116 (A) 65 - 99 mg/dL [facility] POCT (CLIA [id number]) POCT Glucose Test Note: Reference [facility] Comment Ranges revised HOSPITAL POCT September 24 (CLIA [id number]) 2018. Specimen Blood - Capillary blood (substance) Performing Organization Address [facility] e Number [place] [address] [address] [facility] A [address] POCT (CLIA [id number]) Culture, urine (04/17/2021 12:51 PM PDT) Pathologist Sig nature Urine Culture No growth (<1,[address] [facility] organisms/mL) HOSPITAL LAB Specimen Urine - Urine specimen from urinary cond uit (specimen) Performing Organization Address [facility] e [facility] LAB [address] [place] [address] A [id number] Urine microscopic (04/17/2021 12:51 PM PDT) WBC, UA >50 Packed (TNTC) 0 - 5 /HPF [facility] RBC, UA 0-2 0 - 2 /HPF [facility] Bacteria, UA Moderate (A) None Seen [facility] /[facility] LAB Squamous Occasional None seen - [facility] Epithelial Cells, Few /HPF HOSPITAL LAB Urine Reflex to Urine Yes [facility] LAB Mucus, Urine Present (A) None Seen [facility] /[facility] LAB Granular Casts, UA 3-5 (Occasional) None Seen [facility] (A) /[facility] LAB Hyaline Casts, UA 3-5 (Occasional) None Seen [facility] (A) /[facility] LAB Amorphous Present (A) None Seen [facility] Crystals, UA /[facility] LAB Specimen Urine - Urine specimen from urinary cond uit (specimen) Performing Organization Address City/State/ZIP Code Phon e Number [facility] [address] [place] [phone] Urinalysis (dip only) (04/17/2021 12:51 PM PDT) Color, UA Yellow Yellow [facility] Clarity, UA Slightly Cloudy Clear [facility] LAB Specific [place], 1.015 1.010 - 1.030 [facility] pH, UA 6.0 5.0 - 8.0 pH [facility] Leukocytes, UA Moderate (A) Negative [facility] Nitrite, UA Negative Negative [facility] Protein, UA 100 (A) Negative mg/dL [facility] Glucose, UA Negative Negative mg/dL [facility] Ketones, UA Negative Negative mg/dL [facility] Urobilinogen, UA 0.2 (Normal) 0.2 ? [facility] 1.0 EU/dL [facility] Bilirubin, UA Negative Negative [facility] Blood/Hemoglobin, Moderate (A) Negative [facility] Reflex to Urine Yes [facility] Microscopic [facility] Reflex to Urine Yes [facility] Culture [facility] Reflex to Ictotest, No [facility] Urine [facility] Specimen Urine - Urine specimen from urinary cond uit (specimen) Performing Organization Address City/[facility]/ZIP Code Phon e [facility] [address] [facility] [address] POCT glucose for patients who are NPO, TPN infusion or continuous tube feedings (04/17/2021 12:20 PMPDT) POCT Glucose, 93 65 - 99 mg/dL [facility] POCT (CLIA [id number]) POCT Glucose Test Note: Reference [facility] Comment Ranges revised HOSPITAL POCT September 24, (CLIA [id number]) 2018. Specimen Blood - Capillary blood (substance) Performing Organization Address [facility] e Number [facility] [address] [facility] A [address] POCT (CLIA [id number]) CT KUB (04/17/2021 8:14 AM PDT) Specimen Narrative Performed At [facility] [place]. [address] PATIENT NAME: SHIRIN AGUILLON : 1945 GENDER: F EXAM DATE: 04/17/2021 ?? 8:09 ORDERED FROM: [facility] ORDERING PHYSICIAN: ANA MARIA NARVAEZ CC: JORDAN RAMSEY -- ??- ??- ??- CONTRAST: ? READING STATION ID: [id number] mGy: PROCEDURE: ??CT KUB INDICATIONS: ??camille TECHNIQUE: ?? Axial sections were acquired from the lung bases to th e pubic symphysis. ??Coronal and sagittal reformats were performed. ??For radiation dose reduction, the followi ng was used: ??automated exposure control, adjustment of mA and/or kV according to patient size. ?? COMPARISON:[facility], CR, XR CHEST 1 VIEW , 04/16/2021, 12:17. ??[facility], CT, CT ABDOMEN PELVIS W CON, 06/12/2020, 17:23. FINDINGS: ?? Image quality: ??Excellent. ?? Lung bases: ??Patchy opacities are noted scattered in posterior aspect of bilateral lung bases and anterolateral aspect of right lung base. ??No pleural effusion or pneumothorax. Heart: ??Heart size is mildly enlarged, no pericardial effusion. ??Moderate atherosclerotic dis ease is seen. URINARY: Right Kidney: ??Subcentimeter nonobstructing right petra al calculi versus vascular calcifications are seen measur es 3-4 mm in size. ??No hydronephrosis or perinephric fat stranding. Right Ureter: ??No hydroureter. Left Kidney: ??Left kidney is smaller in size compared to the right side. ??Tiny 1-2 mm nonobstructing left lucina l calculi are seen. ??No hydronephrosis or perinephric f at stranding. Left Ureter: ??No hydroureter. Bladder: ??Howard catheter is seen in a decompressed urinary bladder. ??No obvious bladder wall abnormality is seen. ABDOMEN: Liver: ??Liver is normal in size. ??Calcified granulom a in right hepatic dome is seen. Gallbladder: ??Gallbladder is surgically absent. Biliary ducts: ??Unremarkable. ? Pancreas: ??Pancreas is atrophic. ??No peripancreatic inflammatory changes or discrete pancrea tic mass. Spleen: ??Unremarkable. ? Adrenal Glands: ??Unremarkable. ? Stomach and Bowel: ??Again noted is prior partial colectomy. ??No abnormal bowel wall thickening or mesenteric fat stranding. ??No abscess c ollection. Peritoneum: ??No abnormal intraperitoneal fluid. ??No free air. ?? Ventral Wall: ?? No hernia. ?? Abdominal Nodes: ??No enlarged retroperitoneal or mesenteric lymph nodes. ?? Vessels: ??Aorta and inferior vena cava are normal in size. ??Extensive atherosclerotic calcifications throughout abdominal aorta and bilateral iliac vessels are seen. PELVIS: Pelvic Organs: ??Uterus and bilateral ovaries show no gross abnormality. 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 Pelvic Nodes: Unremarkable. Miscellaneous: No inguinal hernias are seen. ?? Mild generalized anasarca is seen. ?? Bones: ??Postfusion changes at L2 through L5 levels ar e again seen. ??No gross hardware loosening or failure. ??No acute compression fracture or spondylolisthesis. ??No suspicious bony lesion is seen. 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 IMPRESSION: ?? 1. Tiny nonobstructing bilateral renal calculi versus vascular calcifications. ??No hydronephrosis or hydroureter. ??Howard catheter in a decompressed urinar y bladder. 2. Scattered small infiltrate/atelectasis in bilateral lung bases more prominent on the right s nakul as above. 3. No bowel obstruction or abnormal bowel wall thickening. ??No free fluid or free air. 4. ??Other findings as above, not significantly change d from prior study. ?? Reviewed by: Jacinto Rodriguez M.D. on 04/17/2021 at 8:33 ? Approved by: Jacinto Rodriguez M.D. on 04/17/2021 at 8:41 ? Procedure Note Interface, Radiology Results In - 2020 8:43 [place]. [address] PATIENT NAME: SHIRIN AGUILLON : 1945 GENDER: F EXAM DATE: 04/17/2021 8:09 ORDERED FROM: [facility] ORDERING PHYSICIAN: ANA MARIA NARVAEZ CC: JORDAN RAMSEY -- - - - CONTRAST: READING STATION ID: [id number] mGy: PROCEDURE: CT KUB INDICATIONS: camille TECHNIQUE: Axial sections were acquired from the neri ng bases to the pubic symphysis. Coronal and sagittal reformats were performed. For radiation dose reduction, the following was used: automated exposure control, adjustment of mA and/or kV according to patient siz e. COMPARISON:[facility], CR, X R CHEST 1 VIEW, 04/16/2021, 12:17. [facility], CT, CT ABDOMEN PELVIS W CON, 06/12/2020, 17:23. FINDINGS: Image quality: Excellent. Lung bases: Patchy opacities are noted scattered in posterior aspect of bilateral lung bases and anterolateral aspect of right lung base. No pleural effusion or pneumothorax. Heart: Heart size is mildly enlarged, n o pericardial effusion. Moderate atherosclerotic disease is seen. URINARY: Right Kidney: Subcentimeter nonobstruct ing right renal calculi versus vascular calcifications are seen measures 3-4 mm in size. No hydronephrosis or perinephric fat stranding. Right Ureter: No hydroureter. Left Kidney: Left kidney is smaller in size compared to the right side. Tiny 1-2 mm nonobstructing left renal calculi are seen. No hydronephrosis or perinephric fat stranding. Left Ureter: No hydroureter. Bladder: Howard catheter is seen in a de compressed urinary bladder. No obvious bladder wall abnormality is seen. ABDOMEN: Liver: Liver is normal in size. Calcif ied granuloma in right hepatic dome is seen. Gallbladder: Gallbladder is surgically absent. Biliary ducts: Unremarkable. Pancreas: Pancreas is atrophic. No per ipancreatic inflammatory changes or discrete pancreatic mass. Spleen: Unremarkable. Adrenal Glands: Unremarkable. Stomach and Bowel: Again noted is prior partial colectomy. No abnormal bowel wall thickening or mesenteric fat stranding. No abscess collection. Peritoneum: No abnormal intraperitoneal fluid. No free air. Ventral Wall: No hernia. Abdominal Nodes: No enlarged retroperit anderson or mesenteric lymph nodes. Vessels: Aorta and inferior vena cava a re normal in size. Extensive atherosclerotic calcifications throughout abdominal aorta and bilateral iliac vessels are seen. PELVIS: Pelvic Organs: Uterus and bilateral ova cora show no gross abnormality. 2 cm hypodense oval lesion in left peroneal region is again seen likely represent Bartholin gland cyst unchanged from prior study. Pelvic Nodes: Unremarkable. Miscellaneous: No inguinal hernias are s een. Mild generalized anasarca is seen. Bones: Postfusion changes at L2 through L5 levels are again seen. No gross hardware loosening or failure. No acute compression fracture or spondylolisthesis. No suspicious bony lesion is seen. 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 IMPRESSION: 1. Tiny nonobstructing bilateral renal c alculi versus vascular calcifications. No hydronephrosis or hydroureter. Howard catheter in a decompressed urinary bladder. 2. Scattered small infiltrate/atelectasi s in bilateral lung bases more prominent on the right side as above. 3. No bowel obstruction or abnormal nora l wall thickening. No free fluid or free air. 4. Other findings as above, not signifi cantly changed from prior study. Reviewed by: Jacinto Rodriguez M.D. on 04/17/2021 at 8:33 Approved by: Jacinto Rodriguez M.D. on 04/17/2021 at 8:41 Performing Organization Address [facility] e Number [facility] [address] [place] [address] POCT glucose for patients who are NPO, TPN infusion or continuous tube feedings (04/17/2021 7:26 AMPDT) Pathologist [facility] POCT Glucose, 63 (A) 65 - 99 mg/dL [facility] POCT (CLIA [id number]) POCT Glucose Test Note: Reference [facility] HOSPITAL POCT September 24, (CLIA [id number]) 2018. Specimen Blood - Capillary blood (substance) Performing Organization Address [facility] e Number [place] [address] [facility] [address] POCT (CLIA [id number]) Prepare/Crossmatch RBC: 1 Units (04/17/2021 6:30 AM PDT) [facility] Product Blood Type 9500 [facility] Unit Number [id number] [facility] Dispense Status Transfused [facility] Product Identification Red Blood Cells [facility] Product Code [id number] [facility] Product Blood Type O Neg [facility] (Readable) [facility] BLOOD BANK Issue Date/Time [id number] [facility] Specimen Blood - Venous blood (substance) Performing Organization Address [facility] Phon e Number [place] [address] [place], [place] [address] BLOOD BANK Complete blood count with diff (04/17/2021 4:43 AM PDT) [facility] WBC Auto 13.1 (H) 3.8 - 10.1 [facility] x10e3/uL HOSPITAL LAB RBC 3.29 (L) 3.90 - 5.20 [facility] x10e6/uL HOSPITAL LAB Hemoglobin 8.0 (L) 12.0 - 15.6 [facility] g/dL HOSPITAL LAB Hematocrit 25.3 (L) 35.0 - 46.0 % [facility] MCV 77 (L) 81 - 100 fL [facility] MCH 24.3 (L) 27.0 - 35.0 pg [facility] MCHC 31.6 (L) 32.0 - 37.0 [facility] g/dL [facility] RDW 19.0 (H) 12.3 - 15.4 % [facility] Platelets 277 150 - 400 [facility] x10e3/uL [facility] MPV 10.2 7.4 - 10.4 fL [facility] NRBC % 1 0 /100 WBCs [facility] Abs. NRBC 0.1 x10e3/uL [facility] % Neutrophils 79 % [facility] % Lymphocytes 12 % [facility] % Monocytes 5 % [facility] % Eosinophils 3 % [facility] % Basophils 0 % [facility] Abs. Neutrophils 10.3 (H) 1.6 - 6.9 [facility] x10e3/uL [facility] Abs. Lymphocytes 1.6 1.1 - 4.8 [facility] x10e3/uL [facility] Abs. Monocytes 0.6 0.0 - 1.0 [facility] x10e3/uL [facility] Abs. Eosinophils 0.4 0.0 - 0.5 [facility] x10e3/uL [facility] Abs. Basophils 0.0 0.0 - 0.4 [facility] x10e3/uL [facility] Abs. Neutrophils 10,300.0 (H) 1,600.0-6,900. [facility] (Auto) 0 /uL HOSPITAL LAB Specimen Blood - Blood (substance) Performing Organization Address City/State/ZIP Code Phon e Number [facility] [address] [facility] [place] [phone] Comprehensive Metabolic Panel (04/17/2021 4:43 AM PDT) Pathologist Sig nature Sodium 139 134 - 144 [facility] mmol/L [facility] Potassium 4.6 3.5 - 5.2 [facility] mmol/L HOSPITAL LAB Chloride 103 97 - 108 mmol/L [facility] CO2 26 18 - 29 mmol/L [facility] Anion Gap 10 3 - 11 mmol/L [facility] BUN 62.0 (H) 8.0 - 27.0 [facility] mg/dL HOSPITAL LAB Creatinine 2.58 (H) 0.57 - 1.00 [facility] mg/dL HOSPITAL LAB Glucose, Serum 63 (L) 65 - 99 mg/dL [facility] Calcium 7.2 (L) 8.5 - 10.1 [facility] mg/dL [facility] AST 24 0 - 50 U/L [facility] ALT 19 0 - 32 U/L [facility] Alkaline Phosphatase 72 25 - 165 U/L [facility] Total Protein 4.2 (L) 6.4 - 8.4 g/dL [facility] eGFR (CKD-EPI) 18 (L) >60 (CKD-EPI) [facility] mL/min/1.73 m2 [facility] Albumin 2.8 (L) 3.4 - 5.0 g/dL [facility] Bilirubin, Total 0.2 <=1.2 mg/dL [facility] BUN/Creatinine Ratio 24.0 7.0 - 24.0 [facility] Specimen Blood - Blood (substance) Performing Organization Address City/State/ZIP Code Phon e Number [facility] [address] [facility] [phone] Procalcitonin (04/17/2021 4:43 AM PDT) Procalcitonin 1.03 (H) 0.00 - 0.08 [facility] Comment: ng/mL HOSPITAL LAB The change of PCT concentrat ion over time provides prognostic information about the risk of mortality within 28 days for patients diagnosed with severe sepsis or septic shock coming from the emergency d epartment, ICU, other medica l wards, or directly from outside the hospital. Data supports the use of PCT determinations from the day severe sepsis or septic shock is first diagnosed (Day 0) or the day t hereafter (Day 1) and the fo ur day after diagnosis (Day 4) for the classification of patients into higher and lower risk for mortality within 28 days according to the workflow below: ? PCT Day 0(or Day 1) - PCT Day 4 delta PCT = X 100% ? PCT Day 0 (or Day 1) Patient diagnosed with severe sepsis or septic shoc k ?delta PCT (%) ?Change of PCT levels ?over the first 4 days delta PCT >80% ? delta PCT <= 80% Test NEGATIVE: ? Test POSITIV E: Lower mortality risk ? Higher mortalit y risk delta PCT <=80 % A decrease of PCT levels bel ow or equal to 80% defines a positive delta PCT test result representing a higher risk for 28-day all-cause mortality of patients diagnosed with severe sepsis of septic shock. delta PCT >80% A decreased of PCT levels of more than 80% defines a negative delta PCT result representing a lower risk for 28-day all-cause mortality of patients diagnosed with severe sepsis or septic shock. FOR CONVENIENCE, ONE CAN USE THE CHANGE IN PROCALCITON IN CALCULATOR. To determine delta PCT resul ts from the absolute PCT concentrations of a patient obtained on the day severe sepsis or septic shock was first diagnosed (or 24 hours later) and on Day 4. Go to [email or web address]. Please note reference interval change Specimen Blood - Blood (substance) Performing Organization Address City/State/ZIP Code Phon e Number [facility] [place] [address] POCT glucose (04/16/2021 9:42 PM PDT) [facility] POCT Glucose, 144 (A) 65 - 99 mg/dL [facility] POCT (CLIA [id number]) POCT Glucose Test Note: Reference [facility] Comment Ranges revised HOSPITAL POCT September 24, (CLIA [id number]) 2018. Specimen Blood - Capillary blood (substance) Performing Organization Address [facility] e [place] [address] [facility] A [address] POCT (CLIA [id number]) Creatinine, urine random (04/16/2021 3:42 PM PDT) Pathologist [facility] Urine Creatinine 104.0 15.0 - 278.0 mg/dL [facility] Specimen Urine - Urine specimen from urinary cond uit (specimen) Performing Organization Address [facility] [address] [facility] A [id number] Sodium, urine random (04/16/2021 3:42 PM PDT) Pathologist [facility] Sodium, Urine 36 No Reference Range [facility] mmol/L Established mmol/L HOSPITAL LAB Specimen Urine - Urine specimen from urinary cond uit (specimen) Performing Organization Address [facility] [address] [facility] A [id number] ECG 12 lead (04/16/2021 3:32 PM PDT) Pathologist [facility] HR 148 bpm [facility] RR 405 ms [facility] DC [facility] QRSD 76 ms [facility] QT 316 ms [facility] QTc 497 ms [facility] QRS -43 deg [facility] T 63 deg [facility] Impression - ABNORMAL ECG - [facility] Impression Atrial fibrillation [facility] with rapid V-rate SYSTEM Impression Left anterior [facility] fascicular block SYSTEM Impression Low voltage, precordial [facility] leads SYSTEM Specimen Narrative Performed At This result has an attachment that is no t available. Performing Organization Address [facility] Phon e Number [facility] [address] [place] [address] Hepatitis B Virus Core Ab (04/16/2021 2:29 PM PDT) Pathologist Sig nature Hepatitis B Ab Core Total Negative Negative [facility] [place] Specimen Blood - Arterial blood (substance) Narrative Performed At Performed at: ??01 - [facility] [address] ??[address] ? ?[phone] Search Manager: Osvaldo Finn MD, Phone: ??[phone] Performing Organization Address [facility] Phon e Number [facility] [place] [address] [address] 2 Hepatitis B virus Surface Ab Quant (04/16/2021 2:29 PM PDT) Heaptitis B <3.1 (L) Immunity>9.9 [facility] Surface Ab Quant Comment: mIU/mL ??Status of Immunity ? An ti-HBs Level ? -- Inconsistent with Immunity ? 0.0 - 9.9 Consistent with Immunity ?>9.9 Specimen Blood - Arterial blood (substance) Narrative Performed At Performed at: ??01 - [facility] [place] [address] ??[address] ? ?[phone] Search Manager: Osvaldo Finn MD, Phone: ??[phone] Performing Organization Address [facility] Phon e Number [facility] [place] [address] [address] 2 700 Hepatitis B surface antigen (04/16/2021 2:29 PM PDT) Pathologist Sig nature Hepatitis B Surface Ag Qual Negative Negative [facility] [place] Specimen Blood - Arterial blood (substance) Narrative Performed At Performed at: ??01 - [facility] [place] [address] ??[address] ? ?[phone] Search Manager: Osvaldo Finn MD, Phone: ??[phone] Performing Organization Address [facility] e Number [facility] [address] [address] [phone] Potassium (04/16/2021 2:29 PM PDT) Pathologist Sig nature Potassium 3.8 3.5 - 5.2 mmol/L [facility] L AB Specimen Blood - Arterial blood (substance) Performing Organization Address [facility] [address] [facility] A [id number] Hemoglobin and hematocrit (04/16/2021 2:29 PM PDT) Pathologist Sig nature Hemoglobin 8.8 (L) 12.0 - 15.6 g/dL [facility] L AB Hematocrit 27.3 (L) 35.0 - 46.0 % [facility] Specimen Blood - Arterial blood (substance) Performing Organization Address [facility] A [id number] Troponin (04/16/2021 2:29 PM PDT) Pathologist Sig nature Troponin T 0.094 (HC) <0.020 ug/L [facility] Comment: HOSPITAL LAB Note: Reference Ranges revised October 15, 2020 Note: Critical Value parameters revised October 15, 2020. Specimen Blood - Venous blood (substance) Performing Organization Address [facility] [address] [facility] A [address] POCT glucose (04/16/2021 1:29 PM PDT) POCT Glucose, 117 (A) 65 - 99 mg/dL [facility] POCT (CLIA [id number]) POCT Glucose Test Note: Reference [facility] Comment Ranges revised HOSPITAL POCT September 24, (CLIA [id number]) 2019. Specimen Blood - Capillary blood (substance) Performing Organization Address [facility]/[place] [address] [facility] A [address] POCT (CLIA [id number]) Vitamin D 25-Hydroxy, D2+D3 (04/16/2021 1:25 PM PDT) Vitamin D, 31 ng/mL [facility] 25-Hydroxy Comment: Reference Range: All Ages: Target levels 30 - 100 Vitamin D2, <1.0 ng/mL [facility] [place] 25-Hydroxy Comment: This test was developed and its performance characteri stics determined by [employer]. It has not been cleared or appr hamlet by the Food and Drug Administration. Vitamin D3, 31 ng/mL [facility] 25-Hydroxy Comment: This test was developed and its performance characteri stics determined by [facility]. It has not been cleared or appr hamlet by the Food and Drug Administration. Specimen Blood - Arterial blood (substance) Narrative Performed At Performed at: ??01 - [facility] [address], A ??[phone] Search Manager: Dawit Erazo MD, Phone: ??[phone] Performing Organization Address City/State/ZIP Code Phon e Number [facility] [address] PTH, intact (04/16/2021 1:25 PM PDT) Pathologist Sig nature PTH 95 (H) 15 - 65 pg/mL [facility] Specimen Blood - Venous blood (substance) Performing Organization Address City/[facility]/ZIP Code Phon e Number [facility] [address] [facility] A [address] XR CHEST 1 VIEW (04/16/2021 12:20 PM PDT) Specimen Narrative Performed At [facility] [place]. [address] PATIENT NAME: SHIRIN AGUILLON : 1945 GENDER: F EXAM DATE: 04/16/2021 ?? 12:17 ORDERED FROM: [facility] ORDERING PHYSICIAN: RADHA ARANA: XAVIER JOHNSON -- ??- ??- ??- CONTRAST: ? READING STATION ID: [id number] mGy: PROCEDURE: ??XR CHEST 1 VIEW INDICATIONS: ??Dialysis cath placement TECHNIQUE: ??One view of the chest was a cquired. ?? COMPARISON: ??[facility], CR, XR CHEST 1 VIEW, 04/15/2021, 22:39. FINDINGS: ?? Surgical changes and devices: ??A dialysis catheter extends from left internal jugular approach crossing t he midline and then extending vertically into the right atrium area.. ?? Lungs and pleura: ??Lungs are clear. ??No pleural effusions or pneumothorax. ?? Mediastinum: ??Mediastinal contours appear normal. ??Heart size is normal. ?? Bones and chest wall: ??No suspicious bony lesions. ??Overlying soft tissues appear unremark able. ?? IMPRESSION: ??Reduced inspiratory volume and when this is taken into account there is no definite acute airspace disease. ??There is crowding of the bronchovascular markings bilaterally slightly greater at the right neetu g base than at the left lung base. Dialysis catheter as discussed with tip in the right atrium area. Reviewed by: Raymond Calderón M.D. on 04/16/2021 at 12:4 8 ? Approved by: Raymond Calderón M.D. on 04/16/2021 at 12:5 0 ? Procedure Note Interface, Radiology Results In - 2020 12:48 [place]. [address] PATIENT NAME: SHIRIN AGUILLON : 1945 GENDER: F EXAM DATE: 04/16/2021 12:17 ORDERED FROM: [facility] ORDERING PHYSICIAN: RADHA WILSON CC: XAVIER JOHNSON -- - - - CONTRAST: READING STATION ID: [id number] mGy: PROCEDURE: XR CHEST 1 VIEW INDICATIONS: Dialysis cath placement TECHNIQUE: One view of the chest was ac quired. COMPARISON: [facility], CR, XR CHEST 1 VIEW, 04/15/2021, 22:39. FINDINGS: Surgical changes and devices: A dialysi s catheter extends from left internal jugular approach crossing the midline and then extending vertically into the right atrium area.. Lungs and pleura: Lungs are clear. No pleural effusions or pneumothorax. Mediastinum: Mediastinal contours appea r normal. Heart size is normal. Bones and chest wall: No suspicious bon y lesions. Overlying soft tissues appear unremarkable. IMPRESSION: Reduced inspiratory volume and when this is taken into account there is no definite acute airspace disease. There is crowding of the bronchovascular markings bilaterally slightly greater at the right lung base than at the left lung base. Dialysis catheter as discussed with tip in the right atrium area. Reviewed by: Raymond Calderón M.D. on 03/30 at 12:48 Approved by: Raymond Calderón M.D. on 03/30 at 12:50 Performing Organization Address City/State/ZIP Code [facility] e [facility] RADIOLOGY SYSTEM [address] [place] [id number] Complete blood count with diff (04/16/2021 8:50 AM PDT) WBC Auto 14.7 (H) 3.8 - 10.1 [facility] x10e3/uL [facility] RBC 3.56 (L) 3.90 - 5.20 [facility] x10e6/uL HOSPITAL LAB Hemoglobin 8.8 (L) 12.0 - 15.6 [facility] g/dL [facility] Hematocrit 28.7 (L) 35.0 - 46.0 % [facility] MCV 81 81 - 100 fL [facility] MCH 24.7 (L) 27.0 - 35.0 pg [facility] MCHC 30.7 (L) 32.0 - 37.0 [facility] g/dL [facility] RDW 19.2 (H) 12.3 - 15.4 % [facility] Platelets 316 150 - 400 [facility] x10e3/uL [facility] MPV 11.5 (H) 7.4 - 10.4 fL [facility] NRBC % 1 0 /100 WBCs [facility] Abs. NRBC 0.1 x10e3/uL [facility] % Neutrophils 87 % [facility] % Lymphocytes 4 % [facility] % Monocytes 3 % [facility] % Eosinophils 3 % [facility] % Basophils 0 % [facility] Abs. Neutrophils 12.9 (H) 1.6 - 6.9 [facility] x10e3/uL HOSPITAL LAB Abs. Lymphocytes 0.6 (L) 1.1 - 4.8 [facility] x10e3/uL HOSPITAL LAB Abs. Monocytes 0.5 0.0 - 1.0 [facility] x10e3/uL HOSPITAL LAB Abs. Eosinophils 0.5 0.0 - 0.5 [facility] x10e3/uL HOSPITAL LAB Abs. Basophils 0.0 0.0 - 0.4 [place] 840820e3/uL HOSPITAL LAB Abs. Neutrophils 12,900.0 (H) 1,600.0-6,900. [facility] (Auto) 0 /uL HOSPITAL LAB Specimen Blood - Venous blood (substance) Performing Organization Address [facility] [address] [facility] A [phone] Hold Lav Top - EDTA (04/16/2021 8:50 AM PDT) Pathologist Sig nature Extra Tube Hold for [facility] add-ons.Comment: LAB Auto resulted. Specimen Blood - Venous blood (substance) Performing Organization Address [facility] [address] [facility] A [id number] POCT glucose (04/16/2021 8:47 AM PDT) POCT Glucose, 130 65 - 99 mg/dL [facility] POCT (CLIA [id number]) POCT Glucose Test Note: Reference [facility] Comment Ranges revised HOSPITAL POCT September 24 (CLIA [id number]) 2018. Specimen Blood - Capillary blood (substance) Performing Organization Address [facility] e [facility] [address] [facility] A [address] POCT (CLIA [id number]) Potassium (04/16/2021 8:42 AM PDT) Pathologist Sig nature Potassium 5.5 (H) 3.5 - 5.2 mmol/L [facility] L AB Specimen Blood - Venous blood (substance) Performing Organization Address City/[facility]/ZIP Code Phon e [facility] [address] [facility] [phone] Venous blood gas (04/16/2021 7:00 AM PDT) pH, Venous 7.212 (L) 7.320 - 7.420 [facility] pCO2, Davi 39 (L) 41 - 51 mmHg [facility] pO2, Venous 34 24 - 49 mmHg [facility] HCO3, Venous 15.8 (L) 22.0 - 26.0 [facility] mmol/L DEPT Base Excess, Venous -11.3 (L) -2.0 - 2.0 mmol/L [facility] O2 Sat, Venous 61 40 - 70 % [facility] tHb, venous 9.2 (L) 12.0 - 18.0 g/dL [facility] Oxyhemoglobin, 60.2 % fraction [facility] venous DEPT Carboxyhemoglobin, 0.9 <=1.5 % % [facility] venous fraction DEPT Methemoglobin, 1.1 0.4 - 1.5 % [facility] venous fraction DEPT FIO2% 32 % [facility] Mode of Delivery Room Air [facility] Tidal Volume 0 mL [facility] Total Respiratory 0 (L) 12 - 20 /min [facility] Rate DEPT PEEP / EPAP 0 cmH2O [facility] Patient Temperature 37.0 ??C [facility] Specimen Blood - Venous blood (substance) Performing Organization Address City/[facility]/ZIP Code Phon e Number [facility] [address] [place] [address] Phosphorus (04/16/2021 6:35 AM PDT) Pathologist Sig nature Phosphorus 9.9 (H) 2.5 - 4.9 mg/dL [facility] LA B Specimen Blood - Venous blood (substance) Performing Organization Address City/[facility]/ZIP Code [facility]on [facility] [address] [facility] A [id number] Lactic acid (04/16/2021 6:35 AM PDT) Pathologist Sig nature Lactic Acid 1.0 0.4 - 2.0 mmol/L [facility] L AB Specimen Blood - Venous blood (substance) Performing Organization Address [facility] Phon [facility] [address] [facility] A [id number] Hemoglobin - Every 4 Hours (04/16/2021 6:35 AM PDT) Pathologist Sig nature Hemoglobin 8.7 (L) 12.0 - 15.6 g/dL [facility] L AB Specimen Blood - Venous blood (substance) Performing Organization Address [facility] Phon [facility] [address] [facility] A [id number] Potassium (04/16/2021 6:35 AM PDT) Pathologist Sig nature Potassium 6.0 (H) 3.5 - 5.2 mmol/L [facility] L AB Specimen Blood - Venous blood (substance) Performing Organization Address [facility] Phon [facility] [address] [facility] A [id number] Troponin (04/16/2021 6:35 AM PDT) Pathologist Sig nature Troponin T 0.100 (HC) <0.020 ug/L [facility] Comment: HOSPITAL LAB Note: Reference Ranges revised October 15, 2020 Note: Critical Value parameters revised October 15, 2020. Specimen Blood - Venous blood (substance) Performing Organization Address [facility] Phon [facility] [address] [facility] A [id number] Procalcitonin (04/16/2021 6:35 AM PDT) Procalcitonin 1.18 (H) 0.00 - 0.08 [facility] Comment: ng/mL HOSPITAL LAB The change of PCT concentrat ion over time provides prognostic information about the risk of mortality within 28 days for patients diagnosed with severe sepsis or septic shock coming from the emergency d epartment, ICU, other medica l wards, or directly from outside the hospital. Data supports the use of PCT determinations from the day severe sepsis or septic shock is first diagnosed (Day 0) or the day t hereafter (Day 1) and the fo urth day after diagnosis (Day 4) for the classification of patients into higher and lower risk for mortality within 28 days according to the workflow below: ? PCT Day 0(or Day 1) - PCT Day 4 delta PCT = X 100% ? PCT Day 0 (or Day 1) Patient diagnosed with severe sepsis or septic shoc k ?delta PCT (%) ?Change of PCT levels ?over the first 4 days delta PCT >80% ? delta PCT <= 80% Test NEGATIVE: ? Test POSITIV E: Lower mortality risk ? Higher mortalit y risk delta PCT <=80 % A decrease of PCT levels bel ow or equal to 80% defines a positive delta PCT test result representing a higher risk for 28-day all-cause mortality of patients diagnosed with severe sepsis of septic shock. delta PCT >80% A decreased of PCT levels of more than 80% defines a negative delta PCT result representing a lower risk for 28-day all-cause mortality of patients diagnosed with severe sepsis or septic shock. FOR CONVENIENCE, ONE CAN USE THE CHANGE IN PROCALCITON IN CALCULATOR. To determine delta PCT resul ts from the absolute PCT concentrations of a patient obtained on the day severe sepsis or septic shock was first diagnosed (or 24 hours later) and on Day 4. Go to [email or web address]. Please note reference interval change Specimen Blood - Venous blood (substance) Performing Organization Address [facility] Phon e [facility] [address] [facility] A [address] APTT (04/16/2021 3:30 AM PDT) Pathologist Sig nature aPTT 31.6Comment: 23.5 - 33.7 sec [facility] Consult with the HOSPITAL LAB Pharmacy for updated Heparin protocols. Specimen Blood - Venous blood (substance) Performing Organization Address [facility] Phon e [facility] [address] [facility] A [id number] Protime-INR (04/16/2021 3:30 AM PDT) Prothrombin Time 17.2 (H) 11.9 - 15.0 [facility] sec HOSPITAL LAB INR 1.4 (H) 0.8 - 1.2 [facility] Comment: HOSPITAL LAB Therapeutic Ranges: Low intensity therapy ? INR 1.5- 2.0 ?? Mod. intensity therapy ? INR 2.0 - 3.0 High intensity therapy (1) INR 2.5 - 3.5 High intensity therapy (2) INR 3.0 - 4.0 Critical value INR ? INR >5.9 ?? Specimen Blood - Venous blood (substance) Performing Organization Address [facility] Phon e [facility] [address] [facility] A [id number] Hemoglobin - Every 4 Hours (04/16/2021 3:30 AM PDT) Pathologist Sig nature Hemoglobin 6.6 (LC) 12.0 - 15.6 g/dL [facility] L AB Specimen Blood - Venous blood (substance) Performing Organization Address [facility] Phon e [facility] [address] [facility] A [id number] Iron profile (04/16/2021 3:30 AM PDT) Iron Binding 209 No Reference Range [facility] Unsaturated Established ug/dL HOSPITAL LAB % Iron Saturation 11 (L) 15 - 50 % [facility] Total Iron Binding 234 (L) 250 - 450 ug/dL [facility] Iron 25 (L) 35 - 150 ug/dL [facility] Specimen Blood - Venous blood (substance) Performing Organization Address [facility] Code Phon e [facility] [address] [facility] A [id number] Potassium (04/16/2021 3:30 AM PDT) Pathologist Sig nature Potassium 5.7 (H) 3.5 - 5.2 mmol/L [facility] L AB Specimen Blood - Venous blood (substance) Performing Organization Address [facility] [address] [facility] A [address] Procalcitonin (04/16/2021 3:30 AM PDT) Procalcitonin 1.17 (H) 0.00 - 0.08 [facility] Comment: ng/mL HOSPITAL LAB The change of PCT concentrat ion over time provides prognostic information about the risk of mortality within 28 days for patients diagnosed with severe sepsis or septic shock coming from the emergency d epartment, ICU, other medica l wards, or directly from outside the hospital. Data supports the use of PCT determinations from the day severe sepsis or septic shock is first diagnosed (Day 0) or the day t hereafter (Day 1) and the fo urth day after diagnosis (Day 4) for the classification of patients into higher and lower risk for mortality within 28 days according to the workflow below: ? PCT Day 0(or Day 1) - PCT Day 4 delta PCT = X 100% ? PCT Day 0 (or Day 1) Patient diagnosed with severe sepsis or septic shoc k ?delta PCT (%) ?Change of PCT levels ?over the first 4 days delta PCT >80% ? delta PCT <= 80% Test NEGATIVE: ? Test POSITIV E: Lower mortality risk ? Higher mortalit y risk delta PCT <=80 % A decrease of PCT levels bel ow or equal to 80% defines a positive delta PCT test result representing a higher risk for 28-day all-cause mortality of patients diagnosed with severe sepsis of septic shock. delta PCT >80% A decreased of PCT levels of more than 80% defines a negative delta PCT result representing a lower risk for 28-day all-cause mortality of patients diagnosed with severe sepsis or septic shock. FOR CONVENIENCE, ONE CAN USE THE CHANGE IN PROCALCITON IN CALCULATOR. To determine delta PCT resul ts from the absolute PCT concentrations of a patient obtained on the day severe sepsis or septic shock was first diagnosed (or 24 hours later) and on Day 4. Go to [email or web address]. Please note reference interval change Specimen Blood - Venous blood (substance) Performing Organization Address [facility] [address] [place] [address] A [id number] Lactic acid (04/16/2021 3:30 AM PDT) Pathologist [facility] Lactic Acid 1.7 0.4 - 2.0 mmol/L [facility] L AB Specimen Blood - Venous blood (substance) Performing Organization Address [facility] [address] [place] [address] A [id number] POCT glucose (04/16/2021 2:00 AM PDT) Pathologist [facility] POCT Glucose, Blood 146 (A) 65 - 99 mg/dL [facility] POCT (CLIA [id number]) Specimen Blood - Capillary blood (substance) Performing Organization Address [facility]/[address] [place] [id number] POCT (CLIA [id number]) Occult Blood, Fecal (04/16/2021 1:40 AM PDT) Fecal occult blood, Positive (A) Negative [facility] LAB Specimen Stool - Rectal contents (substance) Performing Organization Address [facility] Phon e [facility] [address] [place] [address] A [phone] Type and screen (04/16/2021 1:29 AM PDT) ABORh O NEGATIVE [facility] BLOOD BANK Antibody Screen NEGATIVE [facility] BLOOD BANK Patient History Check NO RECORDS ON [facility] BLOOD BANK Reflex to ABO/Rh Type YES [facility] BLOOD BANK Specimen Blood - Venous blood (substance) Performing Organization Address [facility] Phon [address] [address] BLOOD BANK POCT glucose (04/16/2021 1:22 AM PDT) Pathologist Sig nature POCT Glucose, Blood 163 (A) 65 - 99 mg/dL [facility] POCT (CLIA [id number]) Specimen Blood - Capillary blood (substance) Performing Organization Address [facility] Phon e [address] A [id number] POCT (CLIA [id number]) Culture, urine (04/16/2021 12:38 AM PDT) Pathologist Sig nature Urine Culture No growth (<1,000 [facility] organisms/mL) HOSPITAL LAB Specimen Urine - Urine specimen obtained by clean catch procedure (specimen) Performing Organization Address [facility] Phon [facility] [address] [place] [address] A [address] Urine microscopic (04/16/2021 12:38 AM PDT) WBC, UA >50 Packed (TNTC) 0 - 5 /HPF [facility] RBC, UA 0-2 0 - 2 /HPF [facility] Bacteria, UA Moderate (A) None [facility]en [facility] /HPF [facility] Squamous Occasional None seen - [facility] Epithelial Cells, Few /HPF HOSPITAL LAB Urine Reflex to Urine Yes [facility] LAB Specimen Urine - Urine specimen obtained by clean catch procedure (specimen) Performing Organization Address [facility] Phon e Number [facility] [address] [facility] A [address] Urinalysis (dip only) (04/16/2021 12:38 AM PDT) Color, UA Yellow Yellow [facility] Clarity, UA Clear Clear [facility] Specific [place], 1.025 1.010 - 1.030 [facility] pH, UA 5.0 5.0 - 8.0 pH [facility] Leukocytes, UA Moderate (A) Negative [facility] Nitrite, UA Negative Negative [facility] Protein, UA 100 (A) Negative mg/dL [facility] Glucose, UA Negative Negative mg/dL [facility] Ketones, UA Negative Negative mg/dL [facility] Urobilinogen, UA 0.2 (Normal) 0.2 ? [facility] 1.0 EU/dL [facility] Bilirubin, UA Negative Negative [facility] Blood/Hemoglobin, Trace-Intact (A) Negative [facility] Reflex to Urine Yes [facility] Microscopic [facility] Reflex to Urine Yes [facility] Culture [facility] Reflex to Ictotest, No [facility] Urine [facility] Specimen Urine - Urine specimen obtained by clean catch procedure (specimen) Performing Organization Address [facility] Phon e Number [facility] [address] [facility] A [address] Respiratory PCR panel (includes SARS-COV-2 (COVID-19)) (04/15/2021 11:36 PM PDT) Adenovirus Detection Not Detected Not Detected [facility] by PCR [facility] Coronavirus 229E Not Detected Not Detected [facility] Detection by PCR [facility] Coronavirus HKU1 Not Detected Not Detected [facility] Detection by PCR HOSPITAL LAB Coronavirus NL63 Not Detected Not Detected [facility] Detection by PCR [facility] LAB Coronavirus OC43 Not Detected Not Detected [facility] Detection by PCR HOSPITAL LAB SARS-CoV-2 (COVID-19) Not Detected Not Detected [facility] Qual PCR Comment: HOSPITAL LAB PLEASE NOTE: The SARS-CoV-2 PCR included in the RVP2.1 has been released under EUA federal guidelines. ??FDA approval is pending agency evaluation. Metapneumovirus PCR Not Detected Not Detected [facility] Rhinovirus/Enteroviru Not Detected Not Detected [facility] s PCR HOSPITAL LAB Influenza A PCR Not Detected Not Detected [facility] Influenza B PCR Not Detected Not Detected [facility] Parainfluenza 1 PCR Not Detected Not Detected [facility] Parainfluenza 2 PCR Not Detected Not Detected [facility] Parainfluenza 3 PCR Not Detected Not Detected [facility] Parainfluenza 4 PCR Not Detected Not Detected [facility] Respiratory Syncytial Not Detected Not Detected [facility] Virus PCR [facility]ITAL LAB Bordetella Not Detected Not Detected [facility] parapertussis [facility] ([id number]) PCR Bordetella pertussis Not Detected Not Detected [facility] PCR Comment: HOSPITAL LAB BioFire RVP2.1 should not be used if B. pertussis infection is specifically suspected; a B. pertussis molecular test that is FDA-cleared for use on patients suspected of having a respiratory tract infec tion attributable to B. pertussis should be used inste ad. This PCR result is considere d a presumptive test. ??Please order [id number] B.PERTUSSIS/B.PARAPERTUSSIS PCR (SENDOUT)([facility] test code [id number]) if clinical manifestations warrant further confirmatory testing for Bordetella pertussis (whooping cough). The BioFire RP2.1 detects a single-copy Pertussis toxin promoter target. Other PCR tests for B. pertussis target the multi-copy IS481 insertion sequence and are therefore capable of detecting lower levels. There is a risk of false pos itive results for Bordetella species and Human Rhinovirus/Enterovirus due to non-specific amplification and cross-reactivity with organisms that can be found in the respiratory tract. Chlamydia pneumoniae Not Detected Not Detected [facility] Mycoplasma pneumoniae Not Detected Not Detected [facility] Specimen Aspirate - Nasopharyngeal structure (bod y structure) Narrative Performed At [facility]ISTER[facility] NURSE swab is the only specimen type cleared by the FDA. [facility] Nasal wash, tracheal aspirate, and bronchial lavage specimen types have not been cleared by the FDA. Theref ore results on any specimen type other than nasopharyngeal are considered investigational testing only. Performing Organization Address [facility] Phon e Number [facility] [address] [facility] A [id number] Hemoglobin A1c (04/15/2021 11:24 PM PDT) Hemoglobin A1c 9.0 (H) 4.8 - 5.6 % [facility] Estimated 212 No Reference [facility] Average Glucose Range Established HOSPITAL LAB (eAG) mg/dL Hemoglobin A1C See Below [facility] Comment Comment: HOSPITAL LAB Reference Ranges: Normal: 4.8% to 5.6% Prediabetes: 5.7% to 6.4% Diabetes: 6.5% or higher Glycemic control for adults with diabetes: greater janice n 7.0% (DCCT/NGSP) 2010 [place] [employer]'s Summary of Glycemic Recommendations for Adults with Diabetes: Hemoglobin A1c <7.0%. ?? For selected individual patients, providers might reasonably suggest even l ower A1c goals than the gene ral goal of <7%, if this can be achieved without significant hypoglycemia or other adverse effects of treatment. Such patients might include those with short duration of d iabetes, long life expectanc y, and no significant CVD. Conversely, less- stringent A1c goals than the general goal of <7% may be appropriate for patients with a history of severe hypoglycemia, limited life expectancy, advanced m icrovascular or macrovascular complications, and extensive comorbid conditions and those with longstanding diabetes in whom the general goal is difficult to attain. Source: [place] [employer] Summary of revisions for the 2010 Clinical Practice Recommendations. Diabetes Care. 2009; 33(suppl 1): S3 PubMed [id number] Specimen Blood - Venous blood (substance) Performing Organization Address [facility] Phon e Number [facility] [address] [facility] A [phone] Iron profile (04/15/2021 11:24 PM PDT) Iron Binding 278 No Reference Range [facility] Unsaturated Established ug/dL HOSPITAL LAB % Iron Saturation 10 (L) 15 - 50 % [facility] Total Iron Binding 309 250 - 450 ug/dL [facility] Iron 31 (L) 35 - 150 ug/dL [facility] Specimen Blood - Venous blood (substance) Performing Organization Address City/State/ZIP Code Phon e Number [facility] [address] [facility] [place] [address] Complete blood count with diff (04/15/2021 11:24 PM PDT) Pathologist [facility] WBC Auto 14.4 (H) 3.8 - 10.1 [facility] x10e3/uL [facility] RBC 3.40 (L) 3.90 - 5.20 [place] [id number] [facility] Hemoglobin 8.0 (L) 12.0 - 15.6 [facility] g/dL [facility] Hematocrit 26.6 (L) 35.0 - 46.0 % [facility] MCV 78 (L) 81 - 100 fL [facility] MCH 23.5 (L) 27.0 - 35.0 pg [facility] MCHC 30.1 (L) 32.0 - 37.0 [facility] LAB RDW 18.9 (H) 12.3 - 15.4 % [facility] Platelets 383 150 - 400 [facility] x10e3/uL [facility] MPV 10.8 (H) 7.4 - 10.4 fL [facility] NRBC % 1 0 /100 WBCs [facility] Abs. NRBC 0.2 x10e3/uL [facility] % Neutrophils 74 % [facility] % Lymphocytes 11 % [facility] % Monocytes 7 % [facility] % Eosinophils 5 % [facility] % Basophils 0 % [facility] Abs. Neutrophils 10.6 (H) 1.6 - 6.9 [facility] x10e3/uL [facility] Abs. Lymphocytes 1.6 1.1 - 4.8 [facility] x10e3/uL HOSPITAL LAB Abs. Monocytes 1.0 0.0 - 1.0 [facility] x10e3/uL HOSPITAL LAB Abs. Eosinophils 0.7 (H) 0.0 - 0.5 [facility] x10e3/uL HOSPITAL LAB Abs. Basophils 0.0 0.0 - 0.4 [facility] x10e3/uL [facility] Abs. Neutrophils 10,600.0 (H) 1,600.0-6,900. [facility] (Auto) 0 /uL HOSPITAL LAB Specimen Blood - Venous blood (substance) Performing Organization Address [facility] [address] [facility] A [address] TSH with reflex T4 (04/15/2021 11:24 PM PDT) Pathologist Sig nature TSH 3.650 0.450 - 4.500 [facility] Comment: uIU/mL HOSPITAL LAB Thyroid function test result s of women differ from those of non- women. Reference Ranges for : First trimester ?0.100-2.500 uIU/mL Second trimester ? 0.200-3.000 uIU/mL Third trimester ?0.300-3.000 uIU/mL Non- adult ?? 0.450-4.500 uIU/mL Specimen Blood - Venous blood (substance) Performing Organization Address [facility] [address] [facility] A [phone] Magnesium (04/15/2021 11:24 PM PDT) Pathologist Sig nature Magnesium 2.2 1.6 - 2.6 mg/dL [facility] LA B Specimen Blood - Venous blood (substance) Performing Organization Address [facility] [address] [facility] A [address] Procalcitonin (04/15/2021 11:24 PM PDT) Procalcitonin 1.35 (H) 0.00 - 0.08 [facility] Comment: ng/mL HOSPITAL LAB The change of PCT concentrat ion over time provides prognostic information about the risk of mortality within 28 days for patients diagnosed with severe sepsis or septic shock coming from the emergency d epartment, ICU, other medica l wards, or directly from outside the hospital. Data supports the use of PCT determinations from the day severe sepsis or septic shock is first diagnosed (Day 0) or the day t hereafter (Day 1) and the fo ur day after diagnosis (Day 4) for the classification of patients into higher and lower risk for mortality within 28 days according to the workflow below: ? PCT Day 0(or Day 1) - PCT Day 4 delta PCT = X 100% ? PCT Day 0 (or Day 1) Patient diagnosed with severe sepsis or septic shoc k ?delta PCT (%) ?Change of PCT levels ?over the first 4 days delta PCT >80% ? delta PCT <= 80% Test NEGATIVE: ? Test POSITIV E: Lower mortality risk ? Higher mortalit y risk delta PCT <=80 % A decrease of PCT levels bel ow or equal to 80% defines a positive delta PCT test result representing a higher risk for 28-day all-cause mortality of patients diagnosed with severe sepsis of septic shock. delta PCT >80% A decreased of PCT levels of more than 80% defines a negative delta PCT result representing a lower risk for 28-day all-cause mortality of patients diagnosed with severe sepsis or septic shock. FOR CONVENIENCE, ONE CAN USE THE CHANGE IN PROCALCITON IN CALCULATOR. To determine delta PCT resul ts from the absolute PCT concentrations of a patient obtained on the day severe sepsis or septic shock was first diagnosed (or 24 hours later) and on Day 4. Go to [email or web address]. Please note reference interval change Specimen Blood - Venous blood (substance) Performing Organization Address [facility] Code [facility] e [facility] LAB [address] [facility] A [phone] Lactic acid (04/15/2021 11:24 PM PDT) Pathologist Sig nature Lactic Acid 2.9 (H) 0.4 - 2.0 mmol/L [facility] L AB Specimen Blood - Venous blood (substance) Performing Organization Address [facility] [address] [facility] A [address] CMP (04/15/2021 11:24 PM PDT) Sodium 130 (L) 134 - 144 [facility] mmol/L [facility] Potassium 6.8 (HC) 3.5 - 5.2 [facility] mmol/L [facility] Chloride 98 97 - 108 mmol/L [facility] CO2 14 (L) 18 - 29 mmol/L [facility] Anion Gap 18 (H) 3 - 11 mmol/L [facility] BUN 131.0 (HC) 8.0 - 27.0 [facility] mg/dL [facility] Creatinine 4.84 (H) 0.57 - 1.00 [facility] mg/dL [facility]ITAL LAB Glucose, Serum 107 (H) 65 - 99 mg/dL [facility] Calcium 8.2 (L) 8.5 - 10.1 [facility] mg/dL [facility] AST 22 0 - 50 U/L [facility] ALT 26 0 - 32 U/L [facility] Alkaline Phosphatase 116 25 - 165 U/L [facility] Total Protein 5.6 (L) 6.4 - 8.4 g/dL [facility] LAB eGFR (CKD-EPI) 8 (L) >60 (CKD-EPI) [facility] mL/min/1.73 m2 HOSPITAL LAB Albumin 3.2 (L) 3.4 - 5.0 g/dL [facility] LAB Bilirubin, Total 0.3 <=1.2 mg/dL [facility] BUN/Creatinine Ratio 27.1 (H) 7.0 - 24.0 [facility] LAB Specimen Blood - Venous blood (substance) Performing Organization Address City/[facility]/ZIP Code Phon e Number [facility] [address] [facility] A [phone] ABO/Rh Type Confirmation (04/15/2021 11:23 PM PDT) Pathologist Sig nature ABORh O Negative [facility] BLOOD BANK Specimen Blood - Venous blood (substance) Performing Organization Address [facility] Phon e Number [facility] [address] [place] [address] BLOOD BANK XR CHEST 1 VIEW (04/15/2021 10:50 PM PDT) Specimen Narrative Performed At This result has an attachment that is no t available. [facility] [place], [place]. [id number] PATIENT NAME: SHIRIN AGUILLON : 1945 GENDER: F EXAM DATE: 04/15/2021 ?? 22:39 ORDERED FROM: [facility] ORDERING PHYSICIAN: DOE ROWE CC: ??-- ??- ??- ??- CONTRAST: ? READING STATION ID: [id number] mGy: PROCEDURE: ??XR CHEST 1 VIEW INDICATIONS: ??SHORTNESS OF BREATH TECHNIQUE: ??One view of the chest was acquired. ?? COMPARISON: ??[facility], , XR CHEST 2V, 021, 11:54. FINDINGS: ?? Surgical changes and devices: ??None. ?? Lungs and pleura: ??There is slight low lung volumes with a few linear opacities in the lung bases likely representing atelectasis. ??No definite consolidation. ??No pleural effusions or pneumothorax. ?? Mediastinum: ??Mediastinal contours appe ar unchanged. ??Heart size is normal. ?? Bones and chest wall: ??No suspicious [place] lesions. ??Overlying soft tissues appear unremarkable. ?? IMPRESSION: ?? 1. No acute consolidation. ?? Reviewed by: Osvaldo Bradshaw M.D. on 04/16/2021 at 9:29 ? Approved by: Osvaldo Bradshaw M.D. on 04/16/2021 at 9:30 ? Procedure Note Interface, Radiology Results In - 2020 9:31 [place]. [address] PATIENT NAME: SHIRIN AGUILLON : 1945 GENDER: F EXAM DATE: 04/15/2021 22:39 ORDERED FROM: [facility] ORDERING PHYSICIAN: DOE ROWE CC: -- - - - CONTRAST: READING STATION ID: [id number] mGy: PROCEDURE: XR CHEST 1 VIEW INDICATIONS: SHORTNESS OF BREATH TECHNIQUE: One view of the chest was ac quired. COMPARISON: [facility], , XR [facility] 2, 01/14/2021, 11:54. FINDINGS: Surgical changes and devices: None. Lungs and pleura: There is slight low l bobby volumes with a few linear opacities in the lung bases likely representing atelectasis. No definite consolidation. No pleural effusions or pneumothorax. Mediastinum: Mediastinal contours appea r unchanged. Heart size is normal. Bones and chest wall: No suspicious bon y lesions. Overlying soft tissues appear unremarkable. IMPRESSION: 1. No acute consolidation. Reviewed by: Osvaldo Bradshaw M.D. on 03/30 at 9:29 Approved by: Osvaldo Bradshaw M.D. on 03/30 at 9:30 Performing Organization Address City/State/ZIP Code Phon e Number [facility] [address] [place] [address] Culture, Blood, Blood, Peripheral draw (04/15/2021 10:45 PM PDT) Pathologist Sig nature Blood Culture No growth after 5 [facility] LAB Specimen Blood - Peripheral blood (substance) Performing Organization Address City/State/ZIP Code Phon e Number [facility] [address] [facility] [address] Culture, Blood, Blood, Peripheral draw (04/15/2021 10:45 PM PDT) Pathologist Sig nature Blood Culture No growth after 5 [facility] Specimen Blood - Peripheral blood (substance) Performing Organization Address [facility]/ZIP Code Phon e Number [facility] [address] [facility] [place] [place] [address] ECG 12 lead (04/15/2021 10:24 PM PDT) Pathologist Sig nature HR 88 bpm [facility] RR 680 ms [facility] DC [facility] QRSD 95 ms [facility] QT 354 ms [facility] QTc 429 ms [facility] QRS -32 deg [facility] T 42 deg [facility] Impression - ABNORMAL ECG - [facility] Impression Atrial fibrillation [facility] Impression LAD, consider left [facility] anterior fascicular SYSTEM block Impression Possible Nonspecific T [facility] abnormalities, lateral SYSTEM leads Impression No previous ECG [facility] available for SYSTEM comparison Specimen Narrative Performed At This result has an attachment that is no t available. Performing Organization Address City/[facility]/ZIP Code Phon e Number [facility] [address] [place] [address] ED CRITICAL CARE (04/15/2021 10:04 PM PDT) Narrative Performed At Doe Rowe, DO ? 04/16/2021 ??4:2 8 AM [facility] POCT (CLIA Critical Care [id number]) Performed by: Doe Rowe DO Authorized by: Doe Rowe DO Critical care provider statement: ??Critical Care Time (min): ??30 ??Critical care time was exclusive of: ??Separately billable procedures and treating other patients ??Critical care was necessary to treat or prevent imminent or life-threatening deterioration of the following conditions: ??Sepsis and renal failure ??Critical care was time spent personally by me on the following activities: ??Blood draw for specimens, development of treatment plan with patient or surrogate, discussions with consultants, evaluation of patient's response to treatment, examination of patient, obtaining history from patient or surrogate, ordering and performing treatments and interventions, ordering and review of radiographic studies, ordering and review of laboratory studies, pulse oximetry, re-evaluation of patient's condition and review of old charts ??I assumed direction of critical care for this patient from another provider in my specialty: no ?? Performing Organization Address City/State/ZIP Code Phon e Number [facility] [address] [facility] [place] [address] POCT (CLIA [id number]) documented in this encounter Visit Diagnoses Diagnosis Hyperkalemia Hyperpotassemia Sepsis due to skin infection (CMS/HCC) Acute anemia Occult blood in stools Nonspecific abnormal finding in stool co ntents Acute cystitis without hematuria Acute renal failure, unspecified acute r enal failure type (CMS/HCC) Pressure injury of skin of right calf, u nspecified injury stage Dysphagia, unspecified type Unstable angina (CMS/HCC) Intermediate coronary syndrome documented in this encounter Administered Medications Active Administered Medications - up to 3 most recent administrations Medication Order MAR Action Action Date Dose Rate Site acetaminophen (TYLENOL) Given 04/21/2021 11:00 PM PDT 120 mg suppository 120 mg 120 mg, rectal, Every 4 hours PRN, fever, Starting on Mon04/21/21 at 1521, Administer if patient UNABLE to take oral product. Remove from package prior to use. amiodarone (PACERONE) tablet 200 mg 200 mg, oral, Daily, First dose (after l ast modification) on Mon05/28/21 at 0900 apixaban (ELIQUIS) tablet 5 mg Given 05/27/2021 9:39 AM PDT 5 mg 5 mg, oral, 2 times daily, First dose on Mon05/21/21 at 1000 Given 05/26/2021 9:04 PM PDT 5 mg Given 05/25/2021 8:38 PM PDT 5 mg atorvastatin (LIPITOR) tablet 40 mg Given 05/26/2021 9:04 PM PDT 40 mg 40 mg, oral, Nightly, First dose on Mon04/30/21 at 2100 Given 05/25/2021 8:38 PM PDT 40 mg Given 05/24/2021 8:38 PM PDT 40 mg calcium carbonate (TUMS) chewable tablet 500 Given 12:07 AM PDT 500 mg mg 500 mg, oral, 3 times daily PRN, indigestion, heartburn, Starting on Mon05/15/21 at 1242, 500 mg tablet contains 200mg of elemental calcium Given 05/17/2021 9:12 PM PDT 500 mg Given 05/17/2021 4:55 PM PDT 500 mg clopidogreL (PLAVIX) tablet 75 mg Given 05/27/2021 9:40 AM PDT 75 mg 75 mg, oral, Daily, First dose on Mon05/21/21 at 1145 Given 05/25/2021 9:31 AM PDT 75 mg Given 05/24/2021 8:30 AM PDT 75 mg dextrose 50 % in water (D50W) g injectio n 12.5-50 g 12.5-50 g, intravenous, As needed, low b lood sugar, Starting on Vanesa 04/29/21 at 1538, For blood glucose less than 50 if the pa tient is NPO and/or non-responsive and an IV is in place. Check BG every 15 minutes and repeat rescue therapy until BG greater than 100 ml/dL. If BG less than 50 mg/dL OR hy poglycemia persists at 40 min, notify provider STAT to evaluate. Once BG greater than 100 ml/dL, re-check BG in 1 hr to detect recurrent hypoglycemia . Notify Provider of hypoglycemic incident and document hypoglycemia management., B G 50-70 OR symptomatic BG 71-89: 12.5 g (25 mL) of Dextrose 50%, BG less than 50: 25 g (50 mL) of Dextrose 50% diazePAM (VALIUM) tablet 2 mg Given 05/26/2021 9:53 AM PDT 2 mg 2 mg, oral, Every 12 hours PRN, anxiety, Starting on Mon05/10/21 at 0938 Given 05/25/2021 10:06 PM PDT 2 mg Given 05/23/2021 3:40 AM PDT 2 mg diphenhydrAMINE (BENADRYL) capsule 50 mg Given 05/24/2021 6:44 AM PDT 50 mg 50 mg, oral, Every 6 hours PRN, itching, allergies, swelling, allergic reaction, Starting on Mon05/07/21 at 1834 Given 05/16/2021 8:25 PM PDT 50 mg Given 05/11/2021 9:24 PM PDT 50 mg diphenhydrAMINE (BENADRYL) injection 25 mg Given 05/26/2021 5:24 PM PDT 25 mg 25 mg, intravenous, Every 6 hours PRN, nausea, Starting on Mon05/26/21 at 1513 hydroCHLOROthiazide (HYDRODIURIL) tablet Given 05/27/2021 9:39 AM PDT 12.5 mg 12.5 mg 12.5 mg, oral, Daily, First dose on Mon05/26/21 at 0915 HYDROcodone-acetaminophen (NORCO) 5-325 Given 05/27/2021 10: 22 AM PDT 2 tablets mg 1-2 tablet 1-2 tablet, oral, Every 4 hours PRN, pain, Starting on Mon05/20/21 at 1047 Given 05/27/2021 6:27 AM PDT 2 tablets Given 05/26/2021 9:03 PM PDT 2 tablets HYDROmorphone (DILAUDID) injection 0.2-0.5 Given 05/24/2021 1:38 PM PDT 0.5 mg mg 0.2-0.5 mg, intravenous, Every 1 hour PRN, severe pain >7/10, Starting on Mon05/21/21 at 1545, May give with wound dressing changes Given 05/24/2021 3:58 AM PDT 0.5 mg Given 05/24/2021 2:41 AM PDT 0.5 mg insulin glargine (LANTUS) Given 05/26/2021 9:16 PM PDT 6 Units Left Lower Abdomen injection 6 Units 6 Units, subcutaneous, Nightly, First dose (after last modification) on Mon05/05/21 at 2100, If patient is NPO, contact provider for adjustment. If type 2 diabetic and continuing home insulin regimen, consider decreasing basal insulin dosage on admission Observe Hazardous Substance Precautions; Dispose of Product and Packaging in Black Waste Container Given 05/25/2021 8:38 PM PDT 6 Units Righ t Upper Abdomen Given 05/24/2021 8:38 PM PDT 6 Units Righ t Upper Arm (Back) insulin lispro injection Given 05/23/2021 10:25 PM PDT 2 Units Right Upper Arm 0-5 Units (Back) 0-5 Units, subcutaneous, Nightly, First dose on Mon04/29/21 at 2100, Observe Hazardous Substance Precautions; Dispose of Product and Packaging in Black Waste Container, BG 141-180 mg/dL: 0 units, BG 181-225 mg/dL: 0 units, BG 226-250 mg/dL: 0 units, BG 251-300 mg/dL: 2 units, BG 301-350 mg/dL: 4 units, BG 351-400 mg/dL: 5 units, BG greater than 400 mg/dL: recheck BG now, then give 5 units and recheck BG in 1 hour. Notify Provider., BG greater than 500 mg/dL: send STAT Lab Glucose AND notify Provider. Given 05/17/2021 9:05 PM PDT 2 Units Righ t Lower Abdomen Given 05/15/2021 9:00 PM PDT 2 Units Left Upper Abdomen insulin lispro injection Given 05/25/2021 5:42 PM PDT 3 Units Right Lower Abdomen 0-6 Units 0-6 Units, subcutaneous, 3 times daily with meals, First dose on Mon04/29/21 at 1700, Low Dose Correctional Insulin Observe Hazardous Substance Precautions; Dispose of Product and Packaging in Black Waste Container, BG 141-180 mg/dL: 1 unit, BG 181-225 mg/dL: 2 units, BG 226-250 mg/dL: 3 units, BG 251-300 mg/dL: 4 units, BG 301-350 mg/dL: 5 units, BG 351-400 mg/dL: 6 units, BG greater than 400 mg/dL: recheck BG now, then give 6 units and recheck BG in 1 hour. Notify Provider., BG greater than 500 mg/dL: send STAT Lab Glucose AND notify Provider Given 05/25/2021 12:46 PM PDT 3 Units Left Lower Abdomen Given 05/25/2021 9:32 AM PDT 1 Units Left Upper Arm (Back) lactobacillus rhamnosus GG (CULTURELLE) Given 05/27/2021 9: 40 AM PDT 1 capsule 10 billion cell 1 capsule 1 capsule, oral, Daily, First dose on Mon05/09/21 at 1800 Given 05/25/2021 9:32 AM PDT 1 capsule Given 05/24/2021 8:30 AM PDT 1 capsule levOCARNitine (L-CARNITINE) tablet 500 m g Given 05/25/2021 5:42 PM PDT 500 mg 500 mg, oral, Daily with dinner, First dose on Mon05/14/21 at 1700, To be taken with food. Don't give by itself (without food) Given 05/24/2021 6:00 PM PDT 500 mg Given 05/23/2021 5:53 PM PDT 500 mg levothyroxine (SYNTHROID) tablet 75 mcg Given 05/27/2021 6:27 AM PDT 75 mcg 75 mcg, oral, Every morning before breakfast, First dose on Mon05/14/21 at 0600 Given 05/26/2021 6:34 AM PDT 75 mcg Given 05/25/2021 5:38 AM PDT 75 mcg lidocaine (for HOWARD) jelly 1 applicatio n 1 application, Topical, As needed, mild pain, Starting on Mon05/10/21 at 1039 lidocaine (XYLOCAINE) 10 mg/mL (1 %) inj ection 1 mL 1 mL, infiltration, Once as needed, for use as anesthetic for IV start, Starting on Mon04/16/21 at 0024, For 1 dose lidocaine (XYLOCAINE) 10 mg/mL (1 %) inj ection 1 mL 1 mL, infiltration, Once as needed, for use as anesthetic for IV start, Starting on Mon04/16/21 at 0249, For 1 dose lidocaine (XYLOCAINE) 10 mg/mL (1 %) inj ection 1 mL 1 mL, infiltration, Once as needed, for use as anesthetic for IV start, Starting on Mon04/16/21 at 0249, For 1 dose magnesium chloride (SLOW-MAG) tablet 71.5 Given 05/27/2021 9:40 AM PDT 71.5 mg mg 71.5 mg (1 tablet), oral, Daily with breakfast, First dose on Mon05/10/21 at 0900 Given 05/25/2021 9:32 AM PDT 71.5 mg Given 05/24/2021 8:30 AM PDT 71.5 mg metoclopramide (REGLAN) injection 10 mg Given 05/26/2021 4:19 PM PDT 10 mg 10 mg, intravenous, Every 6 hours PRN, nausea, vomiting, Starting on Mon05/26/21 at 1513 metoprolol (LOPRESSOR) injection 5 mg Given 05/21/2021 5:54 AM PDT 5 mg 5 mg, intravenous, Every 5 min PRN, HR greater than 110 BPM, Starting on Mon05/19/21 at 0251, For HR >120. Hold if SBP <100mmHg Given 05/21/2021 12:59 AM PDT 5 mg metoprolol succinate XL (TOPROL-XL) 24 hr Given 05/27/2021 9:40 AM PDT 25 mg tablet 25 mg 25 mg, oral, Daily, First dose on Mon05/21/21 at 0915 Given 05/25/2021 9:33 AM PDT 25 mg Given 05/24/2021 8:29 AM PDT 25 mg miconazole (MICOTIN) 2 % powder Given 05/27/2021 9:41 AM PDT Topical, 2 times daily, First dose on 04/17/21 at 2100, Apply to groin Given 05/26/2021 9:16 PM PDT Given 05/26/2021 9:01 AM PDT nitroglycerin (NITROSTAT) SL tablet 0.4 mg Given 05/15/2021 1:40 PM PDT 0.4 mg 0.4 mg, sublingual, Every 5 min PRN, chest pain, Starting on 05/15/21 at 1335, May administer up to 3 doses per episode. Fall Risk Category 4 ondansetron (ZOFRAN) 4 mg/5 mL solution 4 mg 4 mg, oral, Every 8 hours PRN, nausea, v omiting, Starting on Mon05/10/21 at 0950 ondansetron (ZOFRAN) injection 4 mg Given 05/26/2021 7:04 PM PDT 4 mg 4 mg, intravenous, Every 8 hours PRN, nausea, vomiting, Starting on Mon05/10/21 at 0949 Given 05/26/2021 8:53 AM PDT 4 mg Given 05/25/2021 6:33 PM PDT 4 mg ondansetron ODT (ZOFRAN-ODT) disintegrating Given 05/18/2021 12: 30 PM PDT 4 mg tablet 4 mg 4 mg, oral, Every 8 hours PRN, nausea, vomiting, Starting on Mon05/10/21 at 0950 Given 05/16/2021 9:36 AM PDT 4 mg Given 05/15/2021 12:31 PM PDT 4 mg pantoprazole (PROTONIX) EC tablet 40 mg Given 05/27/2021 6:27 AM PDT 40 mg 40 mg, oral, Every morning before breakfast, First dose on Mon04/26/21 at 0600, Do not crush or chew. Given 05/26/2021 6:34 AM PDT 40 mg Given 05/25/2021 5:38 AM PDT 40 mg predniSONE (DELTASONE) tablet 5 mg Given 05/27/2021 9:40 AM PDT 5 mg 5 mg, oral, Daily, First dose on Mon04/27/21 at 0900 Given 05/25/2021 9:32 AM PDT 5 mg Given 05/24/2021 8:30 AM PDT 5 mg promethazine (PHENERGAN) 6.25 mg New 05/26/2021 10:28 AM P DT 6.25 mg 100 mL/hr in sodium chloride (NS) 0.9 % 50 mL (0.125 mg/mL) IVPB 6.25 mg, intravenous, at 100 mL/hr, Administer over 30 Minutes, Every 6 hours PRN, nausea, vomiting, Starting on Vanesa 05/13/21 at 1116 05/14/2021 7:40 PM PDT 6.25 mg 100 mL/hr 05/14/2021 1:12 PM PDT 6.25 mg 100 mL/hr senna (SENOKOT) tablet 8.6 mg Given 05/27/2021 9:40 AM PDT 8.6 mg 8.6 mg (1 tablet), oral, 2 times daily, First dose on Mon05/09/21 at 1000, Hold if >1 bm daily Given 05/24/2021 8:38 PM PDT 8.6 mg Given 05/24/2021 8:30 AM PDT 8.6 mg sertraline (ZOLOFT) tablet 50 mg Given 05/26/2021 9:04 PM PDT 50 mg 50 mg, oral, Nightly, First dose on 05/23/21 at 2100 Given 05/25/2021 8:37 PM PDT 50 mg Given 05/24/2021 8:38 PM PDT 50 mg sodium chloride (NS) 0.9 % infusion 250 mL 250 mL, intravenous, As needed, For use during blood transfusion, Starting on Mon04/16/21 at 0357 sodium chloride (NS) 0.9 % infusion 250 mL 250 mL, intravenous, As needed, For use during blood transfusion, Starting on Mon05/19/21 at 0904 sodium chloride 0.9 % flush 10 mL 10 mL, intravenous, As needed, line care, Starting on Mon04/16/21 at 0024 sodium chloride 0.9 % flush 10 mL 10 mL, intravenous, As needed, line care, Starting on Mon04/16/21 at 0249 sodium chloride 0.9 % flush 10 mL 10 mL, intravenous, As needed, line care, Starting on Mon04/16/21 at 0249 sodium chloride 0.9 % flush 20 mL 20 mL, intravenous, As needed, line care , flush lumen with NS flush if lumen locked after blood draws., Starting on Mon04/16/21 at 1248 sulfaSALAzine (AZULFIDINE) tablet 1,000 mg Given 05/27/2021 9:40 AM PDT 1,000 mg 1,000 mg, oral, 2 times daily, First dose (after last modification) on 05/08/21 at 0900 Given 05/26/2021 9:03 PM PDT 1,000 mg Given 05/25/2021 8:37 PM PDT 1,000 mg Inactive Administered Medications - up to 3 most recent administrations Medication Order MAR Action Action Date Dose Rate Site acetaminophen (TYLENOL) tablet Given 05/08/2021 9:37 PM PDT 650 mg 650 mg 650 mg, oral, Once, On 05/08/21 at 2145, For 1 dose, May give concurrently with ibuprofen. acetaminophen (TYLENOL) tablet 650 mg Given 05/20/2021 9:15 PM PDT 650 mg 650 mg, oral, Once, On Vanesa 05/20/21 at 2115, For 1 dose, May give concurrently with ibuprofen. acetaminophen (TYLENOL) tablet 975 mg Given 05/02/2021 7:17 AM PDT 975 mg 975 mg, oral, Every 8 hours PRN, mild pain, Starting on 04/25/21 at 2155, For 3 doses, May give concurrently with ibuprofen. Given 04/26/2021 5:34 AM PDT 975 mg Given 04/25/2021 10:04 PM PDT 975 mg amiodarone (PACERONE) tablet 400 mg Given 05/27/2021 9:39 AM PDT 400 mg 400 mg, oral, 2 times daily, First dose on 05/24/21 at 1000, For 7 days Given 05/26/2021 9:04 PM PDT 400 mg Given 05/25/2021 8:37 PM PDT 400 mg amiodarone 450 mg in dextrose New Bag 05/24/2021 3:50 AM PDT 0.5 mg/min 16.67 mL/hr ([id number]) 250 mL (1.8 mg/mL) IV infusion 0.5-1 mg/min (16.6667-33.3333 mL/hr, rounded to 16.67-33.33 mL/hr), intravenous, at 16.67-33.33 mL/hr, Titrated, Starting on 05/22/21 at 1500, Loading Dose: 150-450 mg (see AHA guidelines) Initial infusion rate: 1 mg/min (33.3mL/hr) x6 hr Maintenance infusion rate: 0.5 mg/min (16.7mL/hr) Use non-DEHP tubing and a 0.2 mcg filter for infusion. Bolus by IV push with undiluted drug in unstable arrhythmias. New Bag 05/23/2021 8:36 AM PDT 0.5 mg/min 16.67 mL/hr New Bag 05/22/2021 6:38 PM PDT 1 mg/min 33.3 mL/hr apixaban (ELIQUIS) tablet 5 mg Given 05/15/2021 10:14 AM PDT 5 mg 5 mg, oral, 2 times daily (R.T. only), First dose on Mon04/19/21 at 1100 Given 05/14/2021 9:50 PM PDT 5 mg Given 05/14/2021 8:58 AM PDT 5 mg apixaban (ELIQUIS) tablet 5 mg Given 05/17/2021 8:59 PM PDT 5 mg 5 mg, oral, 2 times daily (R.T. only), First dose on Mon05/17/21 at 2100 aspirin chewable tablet 81 mg Given 05/20/2021 10:20 AM PDT 81 mg 81 mg, oral, Daily, First dose on Mon05/18/21 at 0900, Postprocedure (SI) Given 05/19/2021 9:11 AM PDT 81 mg Given 05/18/2021 8:53 AM PDT 81 mg aspirin EC tablet 162 mg Given 05/15/2021 11:59 PM PDT 162 mg 162 mg, oral, Once, On Mon05/16/21 at 0000, For 1 dose aspirin EC tablet 81 mg Given 05/17/2021 9:16 AM PDT 81 mg 81 mg, oral, Daily, First dose on Mon05/16/21 at 0900 Given 05/16/2021 9:37 AM PDT 81 mg calcium gluconate 100 mg/mL (10%) inject ion 1 g Given 04/16/2021 1:35 AM PDT 1 g 1 g, intravenous, Administer over 10 Minutes, Once, On Mon04/16/21 at 0027, For 1 dose, Administer first, if ordered for ECG changes. *May be given peripherally in large vein., Indications: hyperkalemia carvediloL (COREG) tablet 6.25 mg Given 05/20/2021 10:20 AM PDT 6.25 mg 6.25 mg, oral, 2 times daily with meals, First dose on Mon04/30/21 at 1700 Given 05/19/2021 5:00 PM PDT 6.25 mg Given 05/19/2021 9:15 AM PDT 6.25 mg cefepime (MAXIPIME) 1 g in sodium New Bag 04/19/2021 1:44 AM PDT 1 g 12.5 mL/hr chloride 0.9 % mini-bag plus (NS) 50 mL IVPB 1 g, intravenous, at 12.5 mL/hr, Administer over 4 Hours, Every 24 hours, First dose on Mon04/17/21 at 0130, Mini-Bag Plus bag, Indication: Sepsis New Bag 04/18/2021 1:16 AM PDT 1 g 12.5 mL/hr New Bag 04/17/2021 1:50 AM PDT 1 g 12.5 mL/hr cefepime (MAXIPIME) 1 g in sodium New Bag 04/22/2021 1:58 AM PDT 1 g 12.5 mL/hr chloride 0.9 % mini-bag plus (NS) 50 mL IVPB 1 g, intravenous, at 12.5 mL/hr, Administer over 4 Hours, Every 12 hours, First dose (after last modification) on Mon04/19/21 at 1400, Mini-Bag Plus bag, Indication: Sepsis Restarted 04/21/2021 3:55 PM PDT 12.5 mL/hr New Bag 04/21/2021 3:10 PM PDT 1 g 12.5 mL/hr cefepime (MAXIPIME) 1 g in sodium New Bag 04/24/2021 1:47 AM PDT 1 g 12.5 mL/hr chloride 0.9 % mini-bag plus (NS) 50 mL IVPB 1 g, intravenous, at 12.5 mL/hr, Administer over 4 Hours, Every 24 hours, First dose on Mon04/23/21 at 0200, Mini-Bag Plus bag, Indication: Skin/Skin Structure New Bag 04/23/2021 2:45 AM PDT 1 g 12.5 mL/hr cefepime (MAXIPIME) 2 g in sodium New Bag 04/16/2021 1:38 AM PDT 2 g 100 mL/hr chloride 0.9 % mini-bag plus (NS) 50 mL IVPB 2 g, intravenous, at 100 mL/hr, Administer over 0.5 Hours, Once, On Mon04/16/21 at 0037, For 1 dose, Mini-Bag Plus bag, Indication: Skin/Skin Structure cefepime (MAXIPIME) 2 g in sodium New Bag 05/07/2021 9:13 PM PDT 2 g 12.5 mL/hr chloride 0.9 % mini-bag plus (NS) 50 mL IVPB 2 g, intravenous, at 12.5 mL/hr, Administer over 4 Hours, Every 12 hours scheduled, First dose on Mon05/07/21 at 0900, Mini-Bag Plus bag, Indication: Genitourinary New Bag 05/07/2021 9:09 AM PDT 2 g 12.5 mL/hr ciprofloxacin (CIPRO) tablet 500 mg Given 05/09/2021 8:38 PM PDT 500 mg 500 mg, oral, 2 times daily, First dose on Mon05/08/21 at 0900 Given 05/09/2021 9:11 AM PDT 500 mg Given 05/08/2021 8:44 PM PDT 500 mg cloNIDine (CATAPRES-TTS) Medication Applied 04/21/2021 11:33 AM 1 pat ch Right Arm 0.1 mg/24 hr 1 patch PDT 1 patch, transdermal, Weekly, First dose on Mon04/21/21 at 1015, Remove previous patch. clopidogreL (PLAVIX) 300 mg tablet - ADS Given 05/17/2021 3:15 PM PDT 600 mg Override Pull Starting on Mon05/17/21 at 1454, For 1 dose, Rey Kirby Rn: cabinet override clopidogreL (PLAVIX) tablet 75 mg Given 05/20/2021 10:19 AM PDT 75 mg 75 mg, oral, Daily, First dose on Mon05/18/21 at 0900, Postprocedure (SI) Given 05/19/2021 9:11 AM PDT 75 mg Given 05/18/2021 8:53 AM PDT 75 mg D5 % and 0.9 % sodium Rate/Dose Verify 04/18/2021 5:56 AM PDT 75 m L/hr 75 mL/hr chloride infusion 75 mL/hr, intravenous, at 75 mL/hr, Continuous, Starting on 04/17/21 at 0730 New Bag 04/18/2021 1:22 AM PDT 75 mL/hr 75 mL/hr New Bag 04/17/2021 8:23 AM PDT 75 mL/hr 75 mL/hr D5 % and 0.9 % sodium chloride New Bag 04/28/2021 7:34 AM PDT 100 mL/hr 100 mL/hr infusion 100 mL/hr, intravenous, at 100 mL/hr, Continuous, Starting on Mon04/28/21 at 0715 dextrose 5 %-0.45 % sodium New Bag 05/10/2021 8:50 PM PDT 75 mL/h r 75 mL/hr chloride infusion 75 mL/hr, intravenous, at 75 mL/hr, Continuous, Starting on Mon05/10/21 at 2045, For 12 hours dextrose 5 %-0.45 % sodium New Bag 05/20/2021 12:52 PM PDT 100 mL/ hr 100 mL/hr chloride infusion 100 mL/hr, intravenous, at 100 mL/hr, Continuous, Starting on Mon05/20/21 at 1000, For 8 hours dextrose 50 % in water (D50W) g injectio n 25 g Given 04/16/2021 1:30 AM PDT 25 g 25 g, intravenous, Once, On Mon04/16/21 at 0027, For 1 dose, *Administer after Calcium Gluconate/ Calcium Chloride* For BG 250 or less administer D50 then insulin, Indications: hyperkalemia dextrose 50 % in water (D50W) g injection 25 Given 5:00 PM PDT 12.5 g g 25 g, intravenous, Once, On Mon04/16/21 at 0815, For 1 dose, *Administer after Calcium Gluconate/ Calcium Chloride* For BG 250 or less administer D50 then insulin, Indications: hyperkalemia diazePAM (VALIUM) tablet 5 mg Given 05/08/2021 9:38 PM PDT 5 mg 5 mg, oral, Once, On Mon05/08/21 at 2130, For 1 dose dilTIAZem (CARDIZEM) injection 15 mg Given 04/20/2021 1:05 PM PDT 15 mg 15 mg, intravenous, Once, On Mon04/20/21 at 1215, For 1 dose diltiazem (CARDIZEM) tablet 60 mg Given 04/29/2021 9:20 PM PDT 60 mg 60 mg, oral, Every 6 hours scheduled, First dose on Mon04/25/21 at 0730, For 19 doses Given 04/29/2021 3:20 PM PDT 60 mg Given 04/29/2021 9:10 AM PDT 60 mg diltiazem CD (CARDIZEM CD) 24 hr capsule 120 Given 8:30 AM PDT 120 mg mg 120 mg, oral, Daily, First dose (after last modification) on Mon05/24/21 at 0900 diltiazem CD (CARDIZEM CD) 24 hr capsule 240 Given 8:40 AM PDT 240 mg mg 240 mg, oral, Daily, First dose on Mon04/30/21 at 0900 Given 05/22/2021 9:48 AM PDT 240 mg Given 05/21/2021 9:59 AM PDT 240 mg dilTIAZem in NS Rate/Dose Verify 04/20/2021 3:28 PM PDT 10 mg/hr 1 0 mL/hr (CARDIZEM) 125 mg/125 mL (1 mg/mL) infusion 10 mg/hr (10 mL/hr), intravenous, at 10 mL/hr, Titrated, Starting on Mon04/20/21 at 1215, Initial Infusion rate: 10 mg/hr while NPO Initiate at 10mg/hr New Bag 04/20/2021 1:06 PM PDT 10 mg/hr 10 mL/hr dilTIAZem in NS (CARDIZEM) Rate/Dose Verify 04/25/2021 6:40 AM PDT 5 mg/hr 5 mL/hr 125 mg/125 mL (1 mg/mL) infusion 5 mg/hr (5 mL/hr), intravenous, at 5 mL/hr, Titrated, Starting on Mon04/23/21 at 0630, Initial Infusion rate: 5 mg/hr if HR goal less than 100 bpm Maintenance rate: 5-15 mg/hr Titrate every 5-10 minutes to keep HR goal less than 100 bpm Titrate by 5 mg increments to max of 15 mg/hr. Some patients may be controlled with 5 mg/hr. New Bag 04/25/2021 4:24 AM PDT 5 mg/hr 5 mL/hr Rate/Dose Verify 04/25/2021 4:01 AM PDT 5 mg/hr 5 mL/hr diphenhydrAMINE (BENADRYL) capsule 50 mg Given 05/17/2021 12:36 PM PDT 50 mg 50 mg, oral, Once, On Mon05/17/21 at 1230, For 1 dose, Preprocedure (SI), Administer dose 1 hour prior to exam. diphenhydrAMINE (BENADRYL) injection 25 mg Given 04/21/2021 4:32 AM PDT 25 mg 25 mg, intravenous, Once, On Mon04/21/21 at 0430, For 1 dose docusate sodium (COLACE) capsule 100 mg Given 05/11/2021 8:49 AM PDT 100 mg 100 mg, oral, Daily, First dose on Mon05/09/21 at 1000, Hold if >1bm daily Given 05/10/2021 10:10 AM PDT 100 mg Given 05/09/2021 12:47 PM PDT 100 mg fentaNYL (SUBLIMAZE) injection 25-50 mcg Given 04/18/2021 12:24 PM PDT 25 mcg 25-50 mcg, intravenous, Every 5 min PRN, severe pain: Priority 2, for moderate pain to a maximum of 200 mcg. Call Anesthesia if pain not relieved after maximum doses given., Starting on Mon04/18/21 at 1157, PACU (only), Administer IV push. If more than one narcotic ordered, provider MUST establish priority. PRIORITY #1 Given 04/18/2021 12:15 PM PDT 25 mcg fentaNYL (SUBLIMAZE) injection Given 05/17/2021 3:11 PM PDT 25 mcg intravenous, Code/trauma/sedation medication, Starting on Mon05/17/21 at 1401 Given 05/17/2021 2:57 PM PDT 25 mcg Given 05/17/2021 2:36 PM PDT 25 mcg furosemide (LASIX) injection 40 mg Given 04/23/2021 8:46 PM PDT 40 mg 40 mg, intravenous, Once, On Mon04/23/21 at 2015, For 1 dose furosemide (LASIX) injection 60 mg Given 04/21/2021 11:37 PM PDT 60 mg 60 mg, intravenous, Once, On Mon04/21/21 at 2345, For 1 dose GI cocktail Given 05/14/2021 7:40 PM PDT 10 mL 10 mL, oral, Once, On Mon05/14/21 at 1915, For 1 dose GI cocktail Given 05/21/2021 1:06 AM PDT 10 mL 10 mL, oral, Once, On Mon05/21/21 at 0100, For 1 dose haloperidol lactate (HALDOL) injection 0.5 Given 04/23/2021 10:37 PM PDT 0.5 mg mg 0.5 mg, intravenous, Nightly PRN, agitation, Starting on Mon04/21/21 at 1049, Contact Provider if QTc interval is greater than 500, PRIOR to administration. Off-label Usage: Okay to give IV administration. Given 04/23/2021 2:46 AM PDT 0.5 mg Given 04/21/2021 8:44 PM PDT 0.5 mg haloperidol lactate (HALDOL) injection 2 mg Given 04/19/2021 2:43 AM PDT 2 mg 2 mg, intravenous, Once, On Mon04/19/21 at 0000, For 1 dose, Contact Provider if QTc interval is greater than 500, PRIOR to administration. Off-label Usage: Okay to give IV administration. heparin (porcine) injection 1,000-4,000 Given 04/17/2021 2:05 P M PDT 1.8 mL Units 1,000-4,000 Units (1-4 mL), intra-catheter, Once, On 04/17/21 at 1315, For 1 dose, Dialysis, LOCKING HEPARIN to be Administered AFTER Dialysis by a STAFF EDITOR Dose to be determined by the dialysis catheter volume for the ARTERIAL limb. heparin (porcine) injection 1,000-4,000 Given 04/17/2021 2:05 P M PDT 1.8 mL Units 1,000-4,000 Units (1-4 mL), intra-catheter, Once, On 04/17/21 at 1315, For 1 dose, Dialysis, LOCKING HEPARIN to be Administered AFTER Dialysis by a STAFF EDITOR Dose to be determined by the dialysis catheter volume for the VENOUS limb. heparin (porcine) injection 2,000 Units Given 05/17/2021 10:11 AM PDT 2,000 Units 2,000 Units, intravenous, Once, On Mon05/17/21 at 1015, For 1 dose heparin (porcine) injection Given 05/17/2021 2:53 PM PDT 6,000 Units intravenous, Code/trauma/sedation medication, Starting on Mon05/17/21 at 1453 heparin 25,000 units in New Bag 05/17/2021 12:31 PM 8.5 Units/kg/h r 12.75 mL/hr 500 mL 0.45% NS (premix) PDT 8.5 Units/kg/hr ? 75 kg Order-Specific weight (12.75 mL/hr), intravenous, at 12.75 mL/hr, Titrated, Starting on Mon05/15/21 at 1700, For 48 hours, If patient weight greater than 83 kg, use a dosing weight of 83 kg for entire infusion., Indications: acute coronary syndrome Rate/Dose Change 05/17/2021 10:01 AM PDT 8.5 Units/kg/hr 12.75 mL/h r Rate/Dose Change 05/16/2021 6:55 PM PDT 6.5 Units/kg/hr 9.75 mL/hr hydrALAZINE (APRESOLINE) injection 10 mg Given 04/22/2021 3:32 AM PDT 10 mg 10 mg, intravenous, Every 8 hours PRN, high blood pressure, Starting on Mon04/20/21 at 1751, Administer if SBP >180. Notify physician. Given 04/21/2021 4:24 AM PDT 10 mg Given 04/20/2021 8:15 PM PDT 10 mg HYDROcodone-acetaminophen (NORCO) 5-325 mg Given 05/12 5:35 AM PDT 1 tablet 1 tablet 1 tablet, oral, Every 6 hours PRN, pain, Starting on Mon05/10/21 at 1712 Given 05/11/2021 6:26 PM PDT 1 tablet Given 05/11/2021 5:31 AM PDT 1 tablet HYDROcodone-acetaminophen (NORCO) 5-325 mg Given 05/20 9:52 AM PDT 1 tablet 1 tablet 1 tablet, oral, Every 4 hours PRN, moderate pain, Starting on Mon05/12/21 at 1038 Given 05/20/2021 5:21 AM PDT 1 tablet Given 05/19/2021 8:41 PM PDT 1 tablet hydrocortisone (CORTEF) split tablet 25 mg Given 04/25/2021 6:33 AM PDT 25 mg 25 mg, oral, Every 8 hours, First dose on Mon04/23/21 at 0630 Given 04/24/2021 10:44 PM PDT 25 mg Given 04/24/2021 4:11 PM PDT 25 mg hydrocortisone (CORTEF) split tablet 25 mg Given 04/26/2021 9:35 AM PDT 25 mg 25 mg, oral, Daily, First dose (after last modification) on Mon04/26/21 at 0900 hydrocortisone sodium succinate (SOLU-CORTEF) Given 5:27 AM PDT 25 mg injection 25 mg 25 mg, intravenous, Every 8 hours scheduled, First dose (after last modification) on Mon04/19/21 at 1400 Given 04/22/2021 10:34 PM PDT 25 mg Given 04/22/2021 4:23 PM PDT 25 mg hydrocortisone sodium succinate (SOLU-CORTEF) Given 6:05 AM PDT 50 mg injection 50 mg 50 mg, intravenous, Every 8 hours scheduled, First dose on Mon04/16/21 at 0600 Given 04/18/2021 9:04 PM PDT 50 mg Given 04/18/2021 2:32 PM PDT 50 mg HYDROmorphone (DILAUDID) 1 mg/mL injecti on - ADS Override Pull Starting on Mon04/16/21 at 1345, For 1 dose, Ever Royal (f loat), Dusta: cabinet override HYDROmorphone (DILAUDID) injection 0.2 m g Given 05/19/2021 10:40 PM PDT 0.2 mg 0.2 mg, intravenous, Every 2 hour PRN, severe pain, Starting on Mon05/16/21 at 1757 Given 05/18/2021 5:20 PM PDT 0.2 mg Given 05/18/2021 12:31 AM PDT 0.2 mg HYDROmorphone (DILAUDID) injection 0.2 m g Given 05/21/2021 2:51 PM PDT 0.2 mg 0.2 mg, intravenous, Every 1 hour PRN, Pain wounds, Starting on Vanesa 05/20/21 at 1222, For 2 doses Given 05/20/2021 12:50 PM PDT 0.2 mg HYDROmorphone (DILAUDID) injection 1 mg Given 04/16/2021 1:56 PM PDT 1 mg 1 mg, intravenous, Once, On Mon04/16/21 at 1400, For 1 dose HYDROmorphone (DILAUDID) injection 1 mg Given 04/20/2021 10:18 PM PDT 1 mg 1 mg, intravenous, Once, On Mon04/20/21 at 2215, For 1 dose insulin glargine (LANTUS) Given 04/27/2021 9:00 AM PDT 17 Units Left Lower Abdomen injection 17 Units 17 Units, subcutaneous, Every morning, First dose (after last modification) on Mon04/27/21 at 0900, If patient is NPO, contact provider for adjustment. If type 2 diabetic and continuing home insulin regimen, consider decreasing basal insulin dosage on admission Observe Hazardous Substance Precautions; Dispose of Product and Packaging in Black Waste Container insulin glargine (LANTUS) Given 04/26/2021 9:24 AM PDT 20 Units Left Lower Abdomen injection 20 Units 20 Units, subcutaneous, Every morning, First dose (after last modification) on Mon04/25/21 at 0900, If patient is NPO, contact provider for adjustment. If type 2 diabetic and continuing home insulin regimen, consider decreasing basal insulin dosage on admission Observe Hazardous Substance Precautions; Dispose of Product and Packaging in Black Waste Container Given 04/25/2021 9:47 AM PDT 20 Units Left Upper Arm (Back) insulin glargine (LANTUS) Given 04/24/2021 9:50 PM PDT 5 Units Left Lower Abdomen injection 5 Units 5 Units, subcutaneous, 2 times daily, First dose on Mon04/23/21 at 1015, If patient is NPO, contact provider for adjustment. If type 2 diabetic and continuing home insulin regimen, consider decreasing basal insulin dosage on admission Observe Hazardous Substance Precautions; Dispose of Product and Packaging in Black Waste Container Given 04/24/2021 9:12 AM PDT 5 Units Left Upper Abdomen Given 04/23/2021 8:47 PM PDT 5 Units Righ t Lower Abdomen insulin glargine (LANTUS) Given 05/04/2021 8:05 PM PDT 5 Units Left Upper Arm injection 5 Units (Back) 5 Units, subcutaneous, Nightly, First dose on Mon05/02/21 at 2100, If patient is NPO, contact provider for adjustment. If type 2 diabetic and continuing home insulin regimen, consider decreasing basal insulin dosage on admission Observe Hazardous Substance Precautions; Dispose of Product and Packaging in Black Waste Container Given 05/03/2021 9:09 PM PDT 5 Units Left Lower Abdomen Given 05/02/2021 8:41 PM PDT 5 Units Left Lower Abdomen iopamidoL (ISOVUE-370) 76 % injection Given 05/17/2021 3:12 PM PDT 45 mL Code/trauma/sedation medication, Starting on Mon05/17/21 at 1512 labetaloL (NORMODYNE) injection 10 mg Given 04/19/2021 11:28 AM PDT 10 mg 10 mg, intravenous, Once, On Mon04/19/21 at 0900, For 1 dose labetaloL (NORMODYNE) injection 10 mg Given 04/20/2021 9:11 AM PDT 10 mg 10 mg, intravenous, Once as needed, high blood pressure, Starting on Mon04/20/21 at 0607, For 1 dose, May repeat 1 time to keep Uncontrolled SBP goal less than 180 mmHg labetaloL (NORMODYNE) injection 10 mg Given 04/20/2021 1:05 PM PDT 10 mg 10 mg, intravenous, Once, On Mon04/20/21 at 1200, For 1 dose, May repeat 1 time to keep Uncontrolled SBP goal less than 180 mmHg labetaloL (NORMODYNE) injection 10 mg Given 04/22/2021 9:45 AM PDT 10 mg 10 mg, intravenous, Once, On Mon04/22/21 at 0945, For 1 dose, May repeat 1 time to keep Uncontrolled SBP goal less than 180 mmHg labetaloL (NORMODYNE) injection 10 mg Given 04/26/2021 9:13 PM PDT 10 mg 10 mg, intravenous, Every 6 hours PRN (R.T. only), high blood pressure, Starting on Mon04/22/21 at 1400, May repeat 1 time to keep Uncontrolled SBP goal less than 180 mmHg Given 04/22/2021 11:03 PM PDT 10 mg labetaloL (NORMODYNE) injection 5 mg Given 04/18/2021 12:31 PM PDT 5 mg 5 mg, intravenous, Every 10 min PRN, high blood pressure, for systolic blood pressure greater than 180 or diastolic blood pressure greater than 90 AND if heart rate greater than 60; to maximum of 20 mg, Starting on Mon04/18/21 at 1157, PACU (only) lactated Ringer's bolus 500 mL New Bag 05/20/2021 7:51 PM PDT 500 mL 500 mL/hr 500 mL, intravenous, at 500 mL/hr, Administer over 1 Hours, Once, On Vanesa 05/20/21 at 1945, For 1 dose lactated Ringer's Continued from OR 04/18/2021 12:00 PM 120 mL/hr 12 0 mL/hr infusion PDT 120 mL/hr, intravenous, at 120 mL/hr, Continuous, Starting on Mon04/18/21 at 1200, For 8 hours, PACU (only) levOCARNitine (L-CARNITINE) tablet 500 m g Given 05/12/2021 8:23 AM PDT 500 mg 500 mg, oral, Daily, First dose on Mon05/11/21 at 1715 Given 05/11/2021 6:26 PM PDT 500 mg lisinopriL (PRINIVIL) tablet 2.5 mg Given 05/07/2021 9:10 AM PDT 2.5 mg 2.5 mg, oral, Daily, First dose on Mon05/05/21 at 1915 Given 05/06/2021 10:37 AM PDT 2.5 mg Given 05/05/2021 8:22 PM PDT 2.5 mg LORazepam (ATIVAN) injection 1 mg Given 04/20/2021 8:03 AM PDT 1 mg 1 mg, intravenous, Every 6 hours PRN, for moderate/severe anxiety, Starting on Mon04/16/21 at 0249 Given 04/19/2021 11:19 PM PDT 1 mg Given 04/19/2021 5:05 PM PDT 1 mg LORazepam (ATIVAN) injection 1 mg Given 04/20/2021 6:00 PM PDT 1 mg 1 mg, intravenous, Once, On Mon04/20/21 at 1700, For 1 dose LORazepam (ATIVAN) injection 1 mg Given 04/22/2021 3:19 PM PDT 1 mg 1 mg, intravenous, Once, On Vanesa 04/22/21 at 1500, For 1 dose magnesium chloride (SLOW-MAG) tablet 71.5 Given 05/07/2021 9:10 AM PDT 71.5 mg mg 71.5 mg (1 tablet), oral, Daily with breakfast, First dose on Mon05/03/21 at 0900, For 14 days Given 05/06/2021 10:37 AM PDT 71.5 mg Given 05/05/2021 8:27 AM PDT 71.5 mg magnesium sulfate 4 gram/100 mL (4 %) IVPB 4 New Bag 9:54 AM PDT 4 g g 4 g, intravenous, Administer over 4 Hours, Once, On Mon05/26/21 at 0845, For 1 dose magnesium sulfate in 50 mL water 2 gram/ 50 mL (4 %) IVPB - ADS Override Pull Starting on Mon04/16/21 at 1132, For 1 dose, Ever Royal (f loat), Dusta: cabinet override CVH:For non-arrhythmia indications, infuse ov er 2 hours magnesium sulfate in 50 mL water 2 gram/50 mL New Bag 11:48 AM PDT 2 g (4 %) IVPB 2 g 2 g, intravenous, Administer over 2 Hours, Once, On Mon04/16/21 at 1200, For 1 dose, CVH:For non-arrhythmia indications, infuse over 2 hours magnesium sulfate in 50 mL water 2 gram/50 mL New Bag 4:36 PM PDT 2 g (4 %) IVPB 2 g 2 g, intravenous, Administer over 3 Hours, Every 4 hours, First dose on 04/24/21 at 1245, For 2 doses, Give over 3-4 hours CVH:For non-arrhythmia indications, infuse over 2 hours New Bag 04/24/2021 1:14 PM PDT 2 g magnesium sulfate in 50 mL water 2 gram/50 mL New Bag 2:32 PM PDT 2 g (4 %) IVPB 2 g 2 g, intravenous, Administer over 2 Hours, Once, On 05/01/21 at 1430, For 1 dose, CVH:For non-arrhythmia indications, infuse over 2 hours magnesium sulfate in 50 mL water 2 gram/50 mL New Bag 3:20 PM PDT 2 g (4 %) IVPB 2 g 2 g, intravenous, Administer over 2 Hours, Once, On 05/02/21 at 1430, For 1 dose, CVH:For non-arrhythmia indications, infuse over 2 hours magnesium sulfate in 50 mL water 2 New Bag 05/05/2021 9:49 AM PDT 2 g 16.67 mL/hr gram/50 mL (4 %) IVPB 2 g 2 g, intravenous, at 16.67 mL/hr, Administer over 3 Hours, Once, On Mon05/05/21 at 0930, For 1 dose, CVH:For non-arrhythmia indications, infuse over 2 hours magnesium sulfate in 50 mL water 2 New Bag 05/06/2021 2:07 PM PDT 2 g 0 mL/hr gram/50 mL (4 %) IVPB 2 g 2 g, intravenous, Administer over 2 Hours, Once, On Mon05/06/21 at 1230, For 1 dose, CVH:For non-arrhythmia indications, infuse over 2 hours magnesium sulfate in 50 mL water 2 gram/50 mL New Bag 9:12 AM PDT 2 g (4 %) IVPB 2 g 2 g, intravenous, Administer over 2 Hours, Once, On Mon05/09/21 at 0815, For 1 dose, CVH:For non-arrhythmia indications, infuse over 2 hours magnesium sulfate in 50 mL water 2 New Bag 05/14/2021 8:57 AM PDT 2 g 25 mL/hr gram/50 mL (4 %) IVPB 2 g 2 g, intravenous, at 25 mL/hr, Administer over 2 Hours, Once, On Mon05/14/21 at 0830, For 1 dose, CVH:For non-arrhythmia indications, infuse over 2 hours magnesium sulfate in 50 mL water 2 gram/50 mL New Bag 6:25 PM PDT 2 g (4 %) IVPB 2 g 2 g, intravenous, Administer over 2 Hours, Once, On Mon05/18/21 at 1800, For 1 dose, CVH:For non-arrhythmia indications, infuse over 2 hours magnesium sulfate in 50 mL water 2 New Bag 05/20/2021 9:56 AM PDT 2 g 25 mL/hr gram/50 mL (4 %) IVPB 2 g 2 g, intravenous, Administer over 2 Hours, Once, On Mon05/20/21 at 0745, For 1 dose, CVH:For non-arrhythmia indications, infuse over 2 hours magnesium sulfate in 50 mL water 2 gram/50 mL New Bag 3:40 PM PDT 2 g (4 %) IVPB 2 g 2 g, intravenous, Administer over 2 Hours, Once, On 05/22/21 at 1415, For 1 dose, CVH:For non-arrhythmia indications, infuse over 2 hours magnesium sulfate in 50 mL water 2 gram/50 mL New Bag 12:32 PM PDT 2 g (4 %) IVPB 2 g 2 g, intravenous, Administer over 2 Hours, Once, On 05/23/21 at 0800, For 1 dose, CVH:For non-arrhythmia indications, infuse over 2 hours metoprolol (LOPRESSOR) injection 5 mg Given 04/27/2021 5:52 AM PDT 5 mg 5 mg, intravenous, Every 5 min PRN, HR greater than 110 BPM, Starting on Mon04/21/21 at 2350 Given 04/22/2021 3:21 AM PDT 5 mg Given 04/22/2021 12:03 AM PDT 5 mg midazolam (VERSED) injection Given 05/17/2021 3:12 PM PDT 0.5 mg intravenous, Code/trauma/sedation medication, Starting on Mon05/17/21 at 1402 Given 05/17/2021 2:57 PM PDT 0.5 mg Given 05/17/2021 2:37 PM PDT 0.5 mg morphine 2 mg/mL injection - ADS Overri de Pull Starting on Mon04/16/21 at 1136, For 1 dose, Ever john) Rn, Dusta: cabinet override morphine injection 1 mg Given 04/20/2021 8:27 PM PDT 1 mg 1 mg, intravenous, Once, On Mon04/20/21 at 2030, For 1 dose morphine injection 2 mg Given 04/20/2021 8:03 AM PDT 2 mg 2 mg, intravenous, Every 4 hours PRN, severe pain, Starting on Mon04/16/21 at 1134 Given 04/20/2021 4:20 AM PDT 2 mg Given 04/20/2021 12:17 AM PDT 2 mg morphine injection 4 mg Given 04/15/2021 11:55 PM PDT 4 mg 4 mg, intravenous, Once, On Vanesa 04/15/21 at 2330, For 1 dose norepinephrine in NS Rate/Dose Change 04/16/2021 5:19 2.5 mcg/min 4. 69 mL/hr (LEVOPHED) 8 mg/250 mL PM PDT (32 mcg/mL) infusion 0.5-20 mcg/min (0.9375-37.5 mL/hr, rounded to 0.94-37.5 mL/hr), intravenous, at 0.94-37.5 mL/hr, Titrated, Starting on Mon04/16/21 at 0430, Initiate norepinephrine infusion at 0.5 mcg/min if MAP greater than or equal to 65 mmHg. Titrate to keep MAP greater than or equal to 65 mmHg. Titrate by 0.5 mcg/min every 2-10 minutes to effect. Rate/Dose Change 04/16/2021 4:21 PM PDT 5 mcg/min 9.38 mL/hr Rate/Dose Change 04/16/2021 4:14 PM PDT 7 mcg/min 13.13 mL/hr ondansetron (ZOFRAN) injection 4-8 mg Given 05/21/2021 1:06 PM PDT 4 mg 4-8 mg, intravenous, Every 4 hours PRN, nausea, vomiting, Starting on Vanesa 05/20/21 at 1841, For 2 doses, Administer IV push. If more than one antiemetic ordered, provider MUST establish priority (1-2). PRIORITY # 1 Given 05/20/2021 6:50 PM PDT 4 mg ondansetron ODT (ZOFRAN-ODT) disintegrating Given 05/19/2021 2: 03 PM PDT 4 mg tablet 4 mg 4 mg, oral, Once, On Mon05/18/21 at 1345, For 1 dose oxyCODONE (ROXICODONE) immediate release Given 04/27/2021 6:17 AM PDT 5 mg tablet 5 mg 5 mg, oral, Every 6 hours PRN, moderate pain, Starting on Mon04/26/21 at 0956 Given 04/26/2021 1:18 PM PDT 5 mg oxyCODONE (ROXICODONE) immediate release Given 05/10/2021 12:47 PM PDT 5 mg tablet 5 mg 5 mg, oral, Every 8 hours PRN, moderate pain, Starting on Mon04/27/21 at 1215 Given 05/10/2021 4:31 AM PDT 5 mg Given 05/09/2021 7:55 PM PDT 5 mg pantoprazole (PROTONIX) injection 40 mg Given 04/25/2021 1:20 AM PDT 40 mg 40 mg, intravenous, Every 12 hours, First dose on Mon04/16/21 at 1330, Dilute with 10 mL of 0.9% NaCl. Slow IV push over 2 min. Given 04/24/2021 1:05 PM PDT 40 mg Given 04/24/2021 1:46 AM PDT 40 mg pantoprazole (PROTONIX) injection 80 mg Given 04/16/2021 1:31 AM PDT 80 mg 80 mg, intravenous, Once, On Mon04/16/21 at 0044, For 1 dose, Dilute with 10 mL of 0.9% NaCl. Slow IV push over 2 min. polyethylene glycol (GLYCOLAX) packet 17 g Given 05/09/2021 12:49 PM PDT 17 g 17 g, oral, Daily, First dose on Mon05/09/21 at 1000, Hold if greater than 1 BM/day potassium chloride (KLOR-CON M20) CR tablet Given 01/2021 11:36 AM PDT 40 mEq 40 mEq 40 mEq, oral, Once, On Mon05/02/21 at 1045, For 1 dose potassium chloride (KLOR-CON M20) CR tablet Given 03/2021 9:40 AM PDT 40 mEq 40 mEq 40 mEq, oral, Once, On Mon05/04/21 at 0945, For 1 dose potassium chloride (KLOR-CON M20) CR tablet Given 05/2021 9:15 PM PDT 40 mEq 40 mEq 40 mEq, oral, 2 times daily, First dose on Mon05/06/21 at 0900, For 2 doses Given 05/06/2021 10:37 AM PDT 40 mEq potassium chloride 20 mEq/15 mL solution 20 Given 03/31 9:44 PM PDT 20 mEq mEq 20 mEq, oral, 2 times daily, First dose on Mon04/25/21 at 0900 Given 04/26/2021 9:23 AM PDT 20 mEq Given 04/25/2021 9:38 PM PDT 20 mEq potassium chloride 20 mEq/15 mL solution 40 Given 03/31 9:17 AM PDT 40 mEq mEq 40 mEq, oral, Every 6 hours, First dose on 04/24/21 at 0915, For 2 doses potassium chloride 40 mEq in 100 mL New Bag 04/24/2021 1:03 P M PDT 40 mEq 25 mL/hr IVPB (for central line only) 40 mEq, intravenous, at 25 mL/hr, Administer over 4 Hours, Once, On 04/24/21 at 1130, For 1 dose, Infuse via central line only. predniSONE (DELTASONE) tablet 50 mg Given 05/17/2021 1:12 AM PDT 50 mg 50 mg, oral, Once, On Mon05/17/21 at 0030, For 1 dose, Preprocedure (SI), Administer 1st dose 13 hours prior to exam. predniSONE (DELTASONE) tablet 50 mg Given 05/17/2021 5:53 AM PDT 50 mg 50 mg, oral, Once, On Mon05/17/21 at 0630, For 1 dose, Preprocedure (SI), Administer 2nd dose 7 hours prior to exam. predniSONE (DELTASONE) tablet 50 mg Given 05/17/2021 12:36 PM PDT 50 mg 50 mg, oral, Once, On Mon05/17/21 at 1230, For 1 dose, Preprocedure (SI), Administer 3rd dose 1 hour prior to exam. psyllium (METAMUCIL) 3.4 gram packet 1 Given 05/09/2021 9:13 AM PDT 1 packet packet 1 packet, oral, Daily, First dose on Vanesa 04/29/21 at 1600 Given 05/08/2021 10:26 AM PDT 1 packet Given 05/07/2021 9:10 AM PDT 1 packet QUEtiapine (SEROquel) tablet 25 mg Given 04/24/2021 9:50 PM PDT 25 mg 25 mg, oral, Nightly, First dose on Mon04/20/21 at 2100 Given 04/23/2021 8:46 PM PDT 25 mg Given 04/22/2021 10:35 PM PDT 25 mg QUEtiapine (SEROquel) tablet 25 mg Given 04/25/2021 11:00 PM PDT 25 mg 25 mg, oral, Once, On Mon04/25/21 at 2300, For 1 dose REGULAR INSULIN (HumuLIN R) Given 04/29/2021 3:23 PM PDT 4 Unit s Right Upper Arm injection 0-6 Units (Back) 0-6 Units, subcutaneous, Every 6 hours, First dose on Mon04/16/21 at 0300, Low Dose Correctional Insulin Observe Hazardous Substance Precautions; Dispose of Product and Packaging in Black Waste Container, BG 141-180 mg/dL: 1 unit, BG 181-225 mg/dL: 2 units, BG 226-250 mg/dL: 3 units, BG 251-300 mg/dL: 4 units, BG 301-350 mg/dL: 5 units, BG 351-400 mg/dL: 6 units, BG greater than 400 mg/dL: recheck BG now, then give 6 units and recheck BG in 1 hr. Notify provider., BG greater than 500 mg/dL: send STAT Lab Glucose and notify provider., Indications: hyperglycemia Given 04/29/2021 3:04 AM PDT 1 Units Left Lower Abdomen Given 04/28/2021 11:12 PM PDT 4 Units Left Lower Abdomen REGULAR INSULIN (HumuLIN R) injection 3 Given 04/23/2021 10:35 A M PDT 3 Units Units 3 Units, intravenous, Once, On Mon04/23/21 at 1015, For 1 dose, Give with Dextrose for hyperkalemia Observe Hazardous Substance Precautions; Dispose of Product and Packaging in Black Waste Container REGULAR INSULIN (HumuLIN R) injection 5 Given 04/16/2021 1:31 A M PDT 5 Units Units 5 Units, intravenous, Once, On Mon04/16/21 at 0027, For 1 dose, *Administer after Calcium Gluconate/ Calcium Chloride* For BG >250, administer insulin only; for BG 250 or less administer D50 then insulin Observe Hazardous Substance Precautions; Dispose of Product and Packaging in Black Waste Container, Indications: hyperkalemia sertraline (ZOLOFT) tablet 25 mg Given 05/22/2021 8:34 PM PDT 25 mg 25 mg, oral, Nightly, First dose on Mon05/11/21 at 2100 Given 05/21/2021 8:02 PM PDT 25 mg Given 05/20/2021 9:15 PM PDT 25 mg sodium bicarbonate 1 Rate/Dose Change 04/23/2021 2:49 AM 100 mL/hr 100 mL/hr mEq/mL (8.4 %) 100 mEq in PDT dextrose (D5W) 5 % 1,000 mL infusion 100 mL/hr, intravenous, at 100 mL/hr, Continuous, Starting on Mon04/22/21 at 1015 New Bag 04/22/2021 6:24 PM PDT 150 mL/hr 150 mL/hr Rate/Dose Change 04/22/2021 11:32 AM PDT 150 mL/hr 150 mL/hr sodium bicarbonate 1 mEq/mL New Bag 04/16/2021 3:56 AM PDT 125 mL /hr 125 mL/hr (8.4 %) 150 mEq in dextrose (D5W) 5 % 1,000 mL infusion 125 mL/hr, intravenous, at 125 mL/hr, Continuous, Starting on Mon04/16/21 at 0400 sodium bicarbonate 8.4 % (1 mEq/mL) Given 04/16/2021 1:30 AM PD T 50 mEq injection 50 mEq 50 mEq, intravenous, Once, On Mon04/16/21 at 0027, For 1 dose, *Administer after Albuterol* sodium chloride (NS) 0.9 % New Bag 05/21/2021 6:00 AM PDT 1,000 m L 25 mL/hr infusion 1,000 mL 1,000 mL, intravenous, at 25 mL/hr, Continuous, Starting on Mon05/20/21 at 1815, or rate as directed by provider sodium chloride (NS) 0.9 % New Bag 04/21/2021 9:41 PM PDT 100 mL/ hr 100 mL/hr infusion 100 mL/hr, intravenous, at 100 mL/hr, Continuous, Starting on Mon04/20/21 at 0930 New Bag 04/21/2021 9:57 AM PDT 100 mL/hr 100 mL/hr Rate/Dose Verify 04/21/2021 1:57 AM PDT 100 mL/hr 100 mL/hr sodium chloride (NS) 0.9 % New Bag 05/07/2021 1:56 PM PDT 60 mL/h r 60 mL/hr infusion 60 mL/hr, intravenous, at 60 mL/hr, Continuous, Starting on Mon05/07/21 at 1345, For 18 hours sodium chloride (NS) 0.9 % New Bag 05/17/2021 9:17 AM PDT 75 mL/h r 75 mL/hr infusion 75 mL/hr, intravenous, at 75 mL/hr, Continuous, Starting on Mon05/17/21 at 0715, For 12 hours sodium chloride (NS) 0.9 % New Bag 05/26/2021 9:32 PM PDT 100 mL/ hr 100 mL/hr infusion 100 mL/hr, intravenous, at 100 mL/hr, Continuous, Starting on Mon05/26/21 at 2115, For 5 hours sodium chloride 0.45 % infusion New Bag 05/05/2021 11:50 AM PDT 75 mL/hr 75 mL/hr 75 mL/hr, intravenous, at 75 mL/hr, Continuous, Starting on Mon05/05/21 at 0915, For 10 hours sodium chloride 0.45 % infusion New Bag 05/09/2021 6:29 PM PDT 75 mL/hr 75 mL/hr 75 mL/hr, intravenous, at 75 mL/hr, Continuous, Starting on Mon05/09/21 at 1800, For 14 hours sodium chloride 0.9 % bolus New Bag 04/16/2021 10:33 AM PDT 1,000 mL 1000 mL/hr 1,000 mL 1,000 mL, intravenous, at 1,000 mL/hr, Administer over 1 Hours, Once, On Mon04/16/21 at 1030, For 1 dose sodium chloride 0.9 % bolus New Bag 05/22/2021 2:28 PM PDT 1,000 mL 1000 mL/hr 1,000 mL 1,000 mL, intravenous, at 1,000 mL/hr, Administer over 1 Hours, Once, On Mon05/22/21 at 1430, For 1 dose sodium chloride 0.9 % bolus New Bag 04/16/2021 1:30 AM PDT 2,178 mL 2178 mL/hr 2,178 mL 2,178 mL (30 mL/kg ? 72.6 kg), intravenous, at 2,178 mL/hr, Administer over 1 Hours, Once, On Mon04/16/21 at 0059, For 1 dose sodium chloride 0.9 % bolus 500 mL New Bag 04/16/2021 3:37 AM PDT 500 mL 250 mL/hr 500 mL, intravenous, at 250 mL/hr, Administer over 2 Hours, Once, On Mon04/16/21 at 0330, For 1 dose sodium chloride 0.9 % bolus 500 mL New Bag 04/16/2021 4:59 AM PDT 500 mL 500 mL/hr 500 mL, intravenous, at 500 mL/hr, Administer over 1 Hours, Once, On Mon04/16/21 at 0445, For 1 dose sodium chloride 0.9 % bolus 500 mL New Bag 05/20/2021 9:16 PM PDT 500 mL 500 mL/hr 500 mL, intravenous, at 500 mL/hr, Administer over 1 Hours, Once, On Vanesa 05/20/21 at 2115, For 1 dose sodium chloride 0.9 % bolus 500 New Bag 05/21/2021 3:05 AM PD T 500 mL 1000 mL/hr mL 500 mL, intravenous, at 1,000 mL/hr, Administer over 0.5 Hours, Once, On Mon05/21/21 at 0300, For 1 dose sodium zirconium cyclosilicate (LOKELMA) Given 04/16/2021 6 :00 AM PDT 1 packet oral packet 1 packet 1 packet, oral, 3 times daily (LOKELMA), First dose on Mon04/16/21 at 0600, Empty entire contents of the packet(s) into a glass with =3 tablespoons (45 mL) of water. Stir well and drink immediately; if powder remains in the glass, add water, stir and drink immediately; repeat until no powder remains. Administer other oral medications =2 hours before or 2 hours after dose. If used for emergent hyperkalemia, patient must get 6 doses in 48 hours. sulfaSALAzine (AZULFIDINE) tablet 2,000 mg Given 05/07/2021 3:59 PM PDT 2,000 mg 2,000 mg, oral, Daily, First dose on Mon05/07/21 at 1400 vancomycin 1500mg IVPB in NS New Bag 04/16/2021 2:28 AM PDT 1 ,500 mg 333.3 mL/hr 500 mL premix 1,500 mg (rounded from 1,452 mg = 20 mg/kg ? 72.6 kg), intravenous, at 333.3 mL/hr, Administer over 90 Minutes, Once, On Mon04/16/21 at 0057, For 1 dose, Indication: Skin/Skin Structure documented in this encounter Active and Recently Administered Medications Times are shown in PDT. Scheduled Medication Order 05/25/2021 05/26/2021 05/27/2021 amiodarone (PACERONE) tablet 200 mg 200 mg, oral, Daily, First dose (after l ast modification) on Mon05/28/21 at 0900 amiodarone (PACERONE) tablet 400 mg (CANCELED) 0931 (G iven - Provider: Richa Carroll RN)2036 (Given - Provider: Yolanda Collado RN) 0900 (Not Given - Provider: Heather Albarran RN - Reason: Patient/family refused - Comment: nausea)2103 (Given - Provider: Razia Turner RN) 0939 (Given - Provider: Behzad Jaquez RN) 400 mg, oral, 2 times daily, First dose on Mon05/24/21 at 1000, For 7 days apixaban (ELIQUIS) tablet 5 mg 0931 (Given - Provider: Richa Carroll RN)2037 (Given - Provider: Yolanda Collado RN) 0900 (Not Given - Provider: Heather Albarran RN - Reason: Patient/family refused - Comment: nausea)2103 (Given - Provider: Razia Turner RN) 0939 (Given - Provider: Behzad Jaquez RN)2100 (Due) 5 mg, oral, 2 times daily, First dose on Mon05/21/21 at 1000 atorvastatin (LIPITOR) tablet 40 mg 2037 (Given - Provider: Yolanda Collado RN) 2103 (Given - Provider: Razia Turner RN) 2100 (Due) 40 mg, oral, Nightly, First dose on Mon04/30/21 at 2100 clopidogreL (PLAVIX) tablet 75 mg 0931 (Given - Provider: Marisela Carroll RN) 0900 (Not Given - Provider: Heather Albarran RN - Reason: Patient/family refused - Comment: nausea) 0940 (Given - Provider: Behzad Jaquez RN) 75 mg, oral, Daily, First dose on Mon05/21/21 at 1145 hydroCHLOROthiazide (HYDRODIURIL) tablet 12.5 mg 0915 (Not Given - Provider: Heather Albarran RN - Reason: Patient/family refused - Comment: nausea) 0939 (Given - Provider: Behzad Jaquez RN) 12.5 mg, oral, Daily, First dose on Mon05/26/21 at 0915 insulin glargine (LANTUS) injection 6 Units 2037 (Give n - Provider: Yolanda Collado RN) 2115 (Given - Provider: Razia Turner RN) 2099 (Due ) 6 Units, subcutaneous, Nightly, First do se (after last modification) on Mon05/05/21 at 2100, If patient is NPO, contact provider for adjustment. If type 2 diabetic and continuing home insulin regimen, co nsider decreasing basal insulin dosage o n admission Observe Hazardous Substance Precautions; Dispose of Product and Packaging in Black Waste Container insulin lispro injection 0-5 Units 2100 (Not Given - P rovider: Yolanda Collado RN - Reason: Order parameters not met) 2099 (Not Given - Provider: Razia petty RN - Reason: Order parameters not met) 2100 (Due) 0-5 Units, subcutaneous, Nightly, First dose on Mon04/29/21 at 2100, Observe Hazardous Substance Precautions; Dispose of Product and Packaging in Black Waste Container, BG 141-180 mg/dL: 0 units, BG 181- 225 mg/dL: 0 units, BG 226-250 mg/dL: 0 units, BG 251-300 mg/dL: 2 units, BG 301-350 mg/dL: 4 units, BG 351-400 mg/dL: 5 units, BG greater than 400 mg/dL: recheck BG now, then give 5 units and recheck B G in 1 hour. Notify Provider., BG greate r than 500 mg/dL: send STAT Lab Glucose AND notify Provider. insulin lispro injection 0-6 Units 0932 (Given - Provi geetha: Richa Carroll RN - Comment: BG [phone] (Given - Provider: Richa Carroll RN - Comment: BG [phone] (Given - Provider: Richa Carroll RN - Comment: BG 229) 0900 (Not Given - Provider: Heather Albarran RN - Reason: Order parameters not met)1200 (Not Given - Provider: Heather Albarran RN - Reason: Order parameters not met) 0900 (Not Given - Provider: Behzad girard RN - Reason: Patient is current)1200 (Not Given - Provider: Behzad Jaquez RN - Reason: Patient is current)1700 (Due) 0-6 Units, subcutaneous, 3 times daily w ith meals, First dose on Mon04/29/21 at 1700, Low Dose Correctional Insulin Observe Hazardous Substance Precautions; Dispose of Product and Packaging in Black Wast 1700 (N ot Given - Provider: Heather Albarran, RN - Reason: Order parameters not met - Comment: [id number]) e Container, BG 141-180 mg/dL: 1 unit, B G 181-225 mg/dL: 2 units, BG 226-250 mg/dL: 3 units, BG 251-300 mg/dL: 4 units, BG 301-350 mg/dL: 5 units, BG 351-400 mg/dL: 6 units, BG greater than 400 mg/dL: r echeck BG now, then give 6 units and rec heck BG in 1 hour. Notify Provider., BG greater than 500 mg/dL: send STAT Lab Glucose AND notify Provider lactobacillus rhamnosus GG (CULTURELLE) 10 billion pete l 1 capsule 0932 (Given - Provider: Richa Carroll RN) 0859 (Not Given - Provider: Heather Albarran, RN - Reason: Patient/family refused - Comment: nausea) 0940 (Given - Provider: Behzad Jaquez, BLAINE) 1 capsule, oral, Daily, First dose on Mon05/09/21 at 1800 levOCARNitine (L-CARNITINE) tablet 500 mg 1742 (Given - Provider: Richa Carroll RN) 1700 (Not Given - Provider: Heather Albarran RN - Reason: Patient/family refused - Comment: nausea) 1700 (Due) 500 mg, oral, Daily with dinner, First d ose on Mon05/14/21 at 1700, To be taken with food. Don't give by itself (without food) levothyroxine (SYNTHROID) tablet 75 mcg 0538 (Given - Provider: Romy Walters RN) 0634 (Given - Provider: Alvaro Delgadillo, RN) 0627 (Given - Provider: Razia Turner, BLAINE) 75 mcg, oral, Every morning before breakfast, First do se on Mon05/14/21 at 0600 magnesium chloride (SLOW-MAG) tablet 71.5 mg 0932 (Giv en - Provider: Richa Carroll RN) 0900 (Not Given - Provider: Heather Albarran, RN - Reason: Patient/family refused - Comment: nausea) 0940 (Given - Provider: Behzad Jaquez, BLAINE) 71.5 mg (1 tablet), oral, Daily with kamini akfast, First dose on Mon05/10/21 at 0900 magnesium sulfate 4 gram/100 mL (4 %) IVPB 4 g (COMPLETED) 0954 (New Bag - Provider: Heather Albarran RN - Comment: pt. care)1354 (Stopped - Provider: Heather Albarran RN) 4 g, intravenous, Administer over 4 Hour s, Once, On Mon05/26/21 at 0845, For 1 dose metoprolol succinate XL (TOPROL-XL) 24 hr tablet 25 mg 0933 (Given - Provider: Richa Carroll RN) 09 (Not Given - Provider: Heather Albarran RN - Reason: Patient/family refused - Comment: nausea) 0940 (Given - Provider: Behzad Jaquez RN) 25 mg, oral, Daily, First dose on Mon05/21/21 at 0915 miconazole (MICOTIN) 2 % powder 0933 (Given - Provider : Richa Carroll RN)2037 (Given - Provider: Yolanda Collado RN) 09 (Given - Provider: Heather Albarran RN)2115 (Given - Provider: Razia Turner RN) 0941 (Given - Provider: Behzad Jaquez RN)2100 (Due) Topical, 2 times daily, First dose on Mon04/17/21 at 2100, Apply to groin pantoprazole (PROTONIX) EC tablet 40 mg 0538 (Given - Provider: Romy Walters RN) 0634 (Given - Provider: Alvaro Delgadillo RN) 0627 (Given - Provider: Razia Turner, BLAINE) 40 mg, oral, Every morning before breakf ast, First dose on Mon04/26/21 at 0600, Do not crush or chew. predniSONE (DELTASONE) tablet 5 mg 0932 (Given - Provider: Carmita Carroll RN) 09 (Not Given - Provider: Heather Albarran RN - Reason: Patient/family refused - Comment: nausea) 0940 (Given - Provider: Behzad Jaquez RN) 5 mg, oral, Daily, First dose on Mon04/27/21 at 0900 senna (SENOKOT) tablet 8.6 mg 0932 (Not Given - Provid er: Richa Carroll RN - Reason: Patient/family refused)2037 (Not Given - Provider: Yolanda Collado RN - Reason: Patient/family refused) 0900 (Not Given - Provider: Heather Albarran RN - Reason: Patient on Leave of Absence - Comment: nausea)2099 (Not Given - Provider: Razia Turner RN - Reason: Patient/family refused) 0940 (Given - Provider: Behzad Jaquez RN)2100 (Due) 8.6 mg (1 tablet), oral, 2 times daily, First dose on 05/09/21 at 1000, Hold if >1 bm daily sertraline (ZOLOFT) tablet 50 mg 2036 (Given - Provider: Caroline Collado RN) 2103 (Given - Provider: Razia Turner RN) 2100 (Due) 50 mg, oral, Nightly, First dose on 05/23/21 at 2100 sulfaSALAzine (AZULFIDINE) tablet 1,000 mg 0932 (Given - Provider: Richa Carroll RN)2036 (Given - Provider: Yolanda Collado RN) 0900 (Not Given - Provider: Heather Albarran RN - Reason: Patient/family refused - Comment: nausea)2102 (Given - Provider: Razia Turner RN) 0940 (Given - Provider: Behzad Jaquez RN)2100 (Due) 1,000 mg, oral, 2 times daily, First dos e (after last modification) on 05/08/21 at 0900 Continuous Medication Order 05/25/2021 05/26/2021 05/27/2021 sodium chloride (NS) 0.9 % infusion 2131 (New Bag - Provider: Razia Turner RN) 0745 (Stopped - Provider: Behzad hernandez RN) 100 mL/hr, intravenous, at 100 mL/hr, Co ntinuous, Starting on Mon05/26/21 at 2115, For 5 hours PRN Medication Order 05/25/2021 05/26/2021 05/27/2021 acetaminophen (TYLENOL) suppository 120 mg 120 mg, rectal, Every 4 hours PRN, fever , Starting on Mon04/21/21 at 1521, Administer if patient UNABLE to take oral product. Remove from package prior to use. calcium carbonate (TUMS) chewable tablet 500 mg 500 mg, oral, 3 times daily PRN, indiges tion, heartburn, Starting on 05/15/21 at 1242, 500 mg tablet contains 200mg of elemental calcium dextrose 50 % in water (D50W) g injection 12.5-50 g 12.5-50 g, intravenous, As needed, low b lood sugar, Starting on Vanesa 04/29/21 at 1538, For blood glucose less than 50 if the patient is NPO and/or non-responsive and an IV is in place. Check BG every 15 m inutes and repeat rescue therapy until B G greater than 100 ml/dL. If BG less than 50 mg/dL OR hypoglycemia persists at 40 min, notify provider STAT to evaluate. Once BG greater than 100 ml/dL, re-check BG in 1 hr to detect recurrent hypoglyc emia. Notify Provider of hypoglycemic incident and document hypoglycemia management., BG 50-70 OR symptomatic BG 71- 89: 12.5 g (25 mL) of Dextrose 50%, BG less than 50: 25 g (50 mL) of Dextrose 50% diazePAM (VALIUM) tablet 2 mg 2206 (Given - Provider: Trupti Delgadillo RN) 0953 (Given - Provider: Heather Albarran, BLAINE) 2 mg, oral, Every 12 hours PRN, anxiety, Starting on 05/10/21 at 0938 diphenhydrAMINE (BENADRYL) capsule 50 mg 50 mg, oral, Every 6 hours PRN, itching, allergies, swelling, allergic reaction, Starting on 05/07/21 at 1834 diphenhydrAMINE (BENADRYL) injection 25 mg 1724 (Given - Provider: Heather Albarran, BLAINE) 25 mg, intravenous, Every 6 hours PRN, nausea, Starting on W ed 05/26/21 at 1513 HYDROcodone-acetaminophen (NORCO) 5-325 mg 1-2 tablet 0538 (Given - Provider: Romy Walters RN)0953 (Given - Provider: Richa Carroll RN)1545 (Given - Provider: Richa Carroll RN)2206 (Given - Provider: Alvaro Delgadillo, RN) 0319 (Given - Provider: Alvaro Delgadillo, RN)2103 (Given - Provider: Razia Turner RN) 0627 (Given - Provider: Razia Turner RN)1022 (Given - Provider: Behzad Jaquez, RN) 1-2 tablet, oral, Every 4 hours PRN, pain, Starting on Vanesa at 1047 HYDROmorphone (DILAUDID) injection 0.2-0.5 mg 0.2-0.5 mg, intravenous, Every 1 hour DC N, severe pain >7/10, Starting on Mon05/21/21 at 1545, May give with wound dressing changes lidocaine (for HOWARD) jelly 1 application 1 application, Topical, As needed, mild pain, Starting on 10/19 at 1039 lidocaine (XYLOCAINE) 10 mg/mL (1 %) injection 1 mL(Linked Group 1) 1 mL, infiltration, Once as needed, for use as anesthetic for IV start, Starting on Mon04/16/21 at 0024, For 1 dose lidocaine (XYLOCAINE) 10 mg/mL (1 %) injection 1 mL(Linked Group 2) 1 mL, infiltration, Once as needed, for use as anesthetic for IV start, Starting on Mon04/16/21 at 0249, For 1 dose lidocaine (XYLOCAINE) 10 mg/mL (1 %) injection 1 mL(Linked Group 3) 1 mL, infiltration, Once as needed, for use as anesthetic for IV start, Starting on Mon04/16/21 at 0249, For 1 dose metoclopramide (REGLAN) injection 10 mg 1619 (Given - Provider: Heather Albarran, BLAINE) 10 mg, intravenous, Every 6 hours PRN, n ausea, vomiting, Starting on Mon05/26/21 at 1513 metoprolol (LOPRESSOR) injection 5 mg 5 mg, intravenous, Every 5 min PRN, HR g reater than 110 BPM, Starting on Mon05/19/21 at 0251, For HR >120. Hold if SBP <100mmHg naloxone (NARCAN) injection 0.04 mg 0.04 mg, intravenous, As needed, opioid reversal, respiratory depression, respiratory rate less than 8, Starting on Mon04/16/21 at 0249, Every 1 Minute PRN For Opiate Reversal 1. Draw up 0.4 mg (1 mL) in 10 mL syringe, and dilute with 9 mL o f saline for an naloxone concentration of 0.04 mg/mL. 2. Give 0.04 mg (1 mL) IV push flushing solution into vein and repeat every min until resp rate greater janice n 10 per min and level of sedation impro gricelda. 3. Notify Provider STAT., Indications: opiate-induced respiratory depression nitroglycerin (NITROSTAT) SL tablet 0.4 mg 0.4 mg, sublingual, Every 5 min PRN, silverio st pain, Starting on 05/15/21 at 1335, May administer up to 3 doses per episode. Fall Risk Category 4 ondansetron (ZOFRAN) 4 mg/5 mL solution 4 mg 4 mg, oral, Every 8 hours PRN, nausea, v omiting, Starting on 05/10/21 at 0950 ondansetron (ZOFRAN) injection 4 mg 0953 (Given - Prov ider: Richa Carroll RN)1833 (Given - Provider: Richa Carroll RN) 0853 (Given - Provider: Heather Albarran, BLAINE)1904 (Given - Provider: Heather Albarran, RN) 4 mg, intravenous, Every 8 hours PRN, na usea, vomiting, Starting on 05/10/21 at 0949 ondansetron ODT (ZOFRAN-ODT) disintegrating tablet 4 mg 4 mg, oral, Every 8 hours PRN, nausea, v omiting, Starting on Mon05/10/21 at 0950 promethazine (PHENERGAN) 6.25 mg in sodi um chloride (NS) 0.9 % 50 mL (0.125 mg/mL) IVPB 1028 (New Bag - Provider: Rakesh Albarran, BLAINE)1058 (Stopped - Provider: Heather Albarran, RN) 6.25 mg, intravenous, at 100 mL/hr, Admi nister over 30 Minutes, Every 6 hours PRN, nausea, vomiting, Starting on Vanesa 05/13/21 at 1116 sodium chloride (NS) 0.9 % infusion 250 mL(Linked Group 4) 250 mL, intravenous, As needed, For use during blood transfusion, Starting on Mon04/16/21 at 0357 sodium chloride (NS) 0.9 % infusion 250 mL(Linked Group 5) 250 mL, intravenous, As needed, For use during blood transfusion, Starting on Mon05/19/21 at 0904 sodium chloride 0.9 % flush 10 mL(Linked Group 1) 10 mL, intravenous, As needed, line care, Starting on Mon 1 at 0024 sodium chloride 0.9 % flush 10 mL(Linked Group 2) 10 mL, intravenous, As needed, line care, Starting on Mon 1 at 0249 sodium chloride 0.9 % flush 10 mL(Linked Group 3) 10 mL, intravenous, As needed, line care, Starting on Mon 1 at 0249 sodium chloride 0.9 % flush 20 mL 20 mL, intravenous, As needed, line care , flush lumen with NS flush if lumen locked after blood draws., Starting on Mon04/16/21 at 1248 Linked Groups Order Group 1: Insert peripheral IV Once, On Mon04/16/21 at 0025, For 1 occu rrence And lidocaine (XYLOCAINE) 10 mg/mL (1 %) injection 1 mLJump to med 1 mL, infiltration, Once as needed, for use as anesthetic for IV start, Starting on Mon04/16/21 at 0024, For 1 dose And Maintain IV access Until discontinued, Starting on 04/16 at 0025, Until Specified And Saline lock IV Once, On Mon04/16/21 at 0025, For 1 occu rrence And sodium chloride 0.9 % flush 10 mLJump to med 10 mL, intravenous, As needed, line care , Starting on Mon04/16/21 at 0024 Group 2: Insert peripheral IV Once, On Mon04/16/21 at 0250, For 1 occu rrence And lidocaine (XYLOCAINE) 10 mg/mL (1 %) injection 1 mLJump to med 1 mL, infiltration, Once as needed, for use as anesthetic for IV start, Starting on Mon04/16/21 at 0249, For 1 dose And Maintain IV access Until discontinued, Starting on 04/16 at 0250, Until Specified And Saline lock IV Once, On Mon04/16/21 at 0250, For 1 occu rrence And sodium chloride 0.9 % flush 10 mLJump to med 10 mL, intravenous, As needed, line care , Starting on Mon04/16/21 at 0249 Group 3: Insert peripheral IV Once, On Mon04/16/21 at 0250, For 1 occu rrence And lidocaine (XYLOCAINE) 10 mg/mL (1 %) injection 1 mLJump to med 1 mL, infiltration, Once as needed, for use as anesthetic for IV start, Starting on Mon04/16/21 at 0249, For 1 dose And Maintain IV access Until discontinued, Starting on 04/16 at 0250, Until Specified And Saline lock IV Once, On Mon04/16/21 at 0250, For 1 occu rrence And sodium chloride 0.9 % flush 10 mLJump to med 10 mL, intravenous, As needed, line care , Starting on Mon04/16/21 at 0249 Group 4: Prepare/Crossmatch RBC: 1 Units (COMPLETED) STAT
Prepare 1 Units And Transfuse RBC: 1 Units (COMPLETED) STAT, Transfuse 1 Units And Nursing communication: Ensure provider has obtained Informed Consent for Blood Transfusion (COMPLETED) Once, On Mon04/16/21 at 0358, For 1 occu rrence And Vital Signs As needed, Starting on Mon04/16/21 at 03 57, Until Specified
Check vital signs immediately prior to starting transfusion, 15 minutes into the transfusion, hourly during the transfusion, and at the end of the transfusion. And sodium chloride (NS) 0.9 % infusion 250 mLJump to med 250 mL, intravenous, As needed, For use during blood transfusion, Starting on Mon04/16/21 at 0357 And Nursing Communication: Transfusion Reaction Management (COMPLETED) Once, On Mon04/16/21 at 0358, For 1 occu rrence
Stop transfusion. Keep line open with normal saline at a TKO rate. Notify the patient's provider and the Blood Bank. Obtain and complete transfusion reaction form from Blood Bank. Group 5: Prepare/Crossmatch RBC: 1 Units (COMPLETED) STAT
Prepare 1 Units And Transfuse RBC: 1 Units (COMPLETED) STAT, Transfuse 1 Units And Nursing communication: Ensure provider has obtained Informed Consent for Blood Transfusion (COMPLETED) Once, On Mon05/19/21 at 0905, For 1 occu rrence And Vital Signs As needed, Starting on Mon05/19/21 at 09 04, Until Specified
Check vital signs immediately prior to starting transfusion, 15 minutes into the transfusion, hourly during the transfusion, and at the end of the transfusion. And sodium chloride (NS) 0.9 % infusion 250 mLJump to med 250 mL, intravenous, As needed, For use during blood transfusion, Starting on Mon05/19/21 at 0904 And Nursing Communication: Transfusion Reaction Management (COMPLETED) Once, On Mon05/19/21 at 0905, For 1 occu rrence
Stop transfusion. Keep line open with normal saline at a TKO rate. Notify the patient's provider and the Blood Bank. Obtain and complete transfusion reaction form from Blood Bank. 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
== END ==
PROVIDERS: PCP Internal Medicine; Referring Provider Internal Medicine; Visit Provider Family Medicine
DX: E11.622 Type 2 diabetes mellitus with other skin ulcer (principal); L97.812 Non-pressure chronic ulcer of other part of right lower leg with fat layer exposed; L97.821 Non-pressure chronic ulcer of other part of left lower leg limited to breakdown of skin; L08.9 Local infection of the skin and subcutaneous tissue, unspecified; R60.0 Localized edema; E11.51 Type 2 diabetes mellitus with diabetic peripheral angiopathy without gangrene; K50.90 Crohn's disease, unspecified, without complications; M06.9 Rheumatoid arthritis, unspecified
CPT/HCPCS: 11042; 87070; 87075; 87076; 87077; 87147; 87186; 87205; 99214

== ENCOUNTER → 2021-06-04 13:24 | Outpatient (CLI) | payer OTHER, SELFPAY ==
[2020-06-25 20:46] VITALS: BMI 34.7
== END ==
PROVIDERS: Family Provider Internal Medicine; PCP Internal Medicine; Referring Provider Internal Medicine; Visit Provider Nurse Practitioner Family
DX: E11.628 Type 2 diabetes mellitus with other skin complications (principal); S81.801A Unspecified open wound, right lower leg, initial encounter; S81.802A Unspecified open wound, left lower leg, initial encounter; M79.604 Pain in right leg; M79.605 Pain in left leg; K50.90 Crohn's disease, unspecified, without complications; L08.9 Local infection of the skin and subcutaneous tissue, unspecified; M06.9 Rheumatoid arthritis, unspecified
CPT/HCPCS: 11042; 11045; 87070; 87075; 87077; 87185; 87186; 87205; 99213; 99214

== ENCOUNTER → 2021-06-14 14:23 | Outpatient (CLI) | payer OTHER, SELFPAY ==
[2020-06-25 20:46] VITALS: BMI 34.7
== END ==
PROVIDERS: Family Provider Internal Medicine; PCP Internal Medicine; Referring Provider Internal Medicine; Visit Provider Family Medicine
DX: L08.89 Other specified local infections of the skin and subcutaneous tissue (principal); L97.811 Non-pressure chronic ulcer of other part of right lower leg limited to breakdown of skin; L97.821 Non-pressure chronic ulcer of other part of left lower leg limited to breakdown of skin; E11.622 Type 2 diabetes mellitus with other skin ulcer; K50.918 Crohn's disease, unspecified, with other complication; M06.9 Rheumatoid arthritis, unspecified
CPT/HCPCS: 11042; 99213

== ENCOUNTER → 2021-06-30 13:25 | Outpatient (CLI) | payer OTHER, SELFPAY ==
[2020-06-25 20:46] VITALS: BMI 34.7
== END ==
PROVIDERS: Family Provider Internal Medicine; PCP Internal Medicine; Referring Provider Internal Medicine; Visit Provider Family Medicine
DX: L88 Pyoderma gangrenosum (principal); L97.811 Non-pressure chronic ulcer of other part of right lower leg limited to breakdown of skin; L97.821 Non-pressure chronic ulcer of other part of left lower leg limited to breakdown of skin; R60.0 Localized edema; E11.622 Type 2 diabetes mellitus with other skin ulcer
CPT/HCPCS: 11042

== ENCOUNTER → 2021-07-22 13:04 | Outpatient (CLI) | payer OTHER, SELFPAY ==
[2020-06-25 20:46] VITALS: BMI 34.7
== END ==
PROVIDERS: Family Provider Internal Medicine; PCP Internal Medicine; Referring Provider Internal Medicine; Visit Provider Family Medicine
DX: M06.9 Rheumatoid arthritis, unspecified (principal); K50.90 Crohn's disease, unspecified, without complications
CPT/HCPCS: 99212

== ENCOUNTER → 2021-10-13 14:18 | Outpatient (CLI) | payer OTHER, SELFPAY ==
[2020-06-25 20:46] VITALS: BMI 34.7
[2021-10-13 14:49] LABS: Add Manual Diff / Slide Review NO; Basophils Absolute Auto 0 /uL (0-100); Basophils Percent Auto 0.2 % (0-2); Eosinophils Absolute Auto 300 /uL (0-450); Eosinophils Percent Auto 3.5 % (2-4); Hematocrit 30.6 % (36-46); Hemoglobin 9.7 g/dL (12.0-16.0); Lymphocytes Absolute Auto 2500 /uL (1100-4500); Lymphocytes Percent Auto 26.8 % (25-40); Mean Corpuscular HGB Conc 31.9 % (30-36); Mean Corpuscular Hemoglobin 25.4 PG (26-34); Mean Corpuscular Volume 79.6 fL (80-100); Monocytes Absolute Auto 700 /uL (0-900); Monocytes Percent Auto 7.7 % (3-14); Neutrophils Absolute Auto 5900 /uL (1500-7000); Neutrophils Percent Auto 61.8 % (50-75); Platelet Count 224 X10^3/uL (150-400); Red Blood Cell Count 3.84 X10^6/uL (4.0-5.2); Red Cell Distribution Width 17.2 % (11.6-14.8); White Blood Cell Count 9.5 X10^3/uL (4.5-11.0)
[2021-10-13 15:37] LABS: Erythrocyte Sedimentation Rate 24 MM/HR (0-20)
[2021-10-13 15:52] LABS: Alanine Aminotransferase 19 IU/L (<35); Albumin 3.9 g/dL (3.5-5.0); Albumin Globulin Ratio 1.7 (1.0-2.8); Alkaline Phosphatase 81 U/L (38-126); Aspartate Aminotransferase 46 IU/L (14-36); BUN Creatinine Ratio 26.7 (6-22); Bilirubin Total 0.3 mg/dL (0.2-1.3); Blood Urea Nitrogen 36 mg/dL (7-17); C-Reactive Protein Quant < 0.5 mg/dL (<1.0); Calcium 9.6 mg/dL (8.4-10.2); Carbon Dioxide 22 mmol/L (22-32); Chloride 108 mmol/L (98-107); Estimated Glomerular Filt Rate 38.3 mL/min (>60); Globulin 2.3 g/dL (1.7-4.1); Glucose 135 mg/dL (80-110); HEMOLYSIS 19 (0-50); Potassium 4.7 mmol/L (3.4-5.1); Sodium 137 mmol/L (137-145); Total Protein 6.2 g/dL (6.3-8.2)
== END ==
PROVIDERS: Family Provider Internal Medicine; PCP Internal Medicine; Referring Provider Physician Assistant Medical; Visit Provider Physician Assistant Medical
DX: M06.09 Rheumatoid arthritis without rheumatoid factor, multiple sites (principal)
CPT/HCPCS: 36415; 80053; 85025; 85651; 86140

== ENCOUNTER → 2021-11-11 09:36 | Outpatient (CLI) | payer OTHER, SELFPAY ==
[2020-06-25 20:46] VITALS: BMI 34.7
[2021-11-11 11:32] LABS: Add Manual Diff / Slide Review NO; Basophils Absolute Auto 0 /uL (0-100); Basophils Percent Auto 0.3 % (0-2); Eosinophils Absolute Auto 400 /uL (0-450); Eosinophils Percent Auto 4.1 % (2-4); Hematocrit 30.4 % (36-46); Hemoglobin 9.3 g/dL (12.0-16.0); Lymphocytes Absolute Auto 2200 /uL (1100-4500); Lymphocytes Percent Auto 24.5 % (25-40); Mean Corpuscular HGB Conc 30.7 % (30-36); Mean Corpuscular Volume 78.1 fL (80-100); Monocytes Absolute Auto 700 /uL (0-900); Monocytes Percent Auto 7.5 % (3-14); Neutrophils Absolute Auto 5800 /uL (1500-7000); Neutrophils Percent Auto 63.6 % (50-75); Platelet Count 217 X10^3/uL (150-400); Red Blood Cell Count 3.89 X10^6/uL (4.0-5.2); Red Cell Distribution Width 18.2 % (11.6-14.8); White Blood Cell Count 9.1 X10^3/uL (4.5-11.0)
[2021-11-11 11:39] LABS: Hemoglobin A1C% w Est Avg Glu 8.3 % (4.0-6.0)
[2021-11-11 11:51] LABS: Erythrocyte Sedimentation Rate 30 MM/HR (0-20)
[2021-11-11 12:06] LABS: Alanine Aminotransferase 16 IU/L (<35); Albumin 3.9 g/dL (3.5-5.0); Albumin Globulin Ratio 1.7 (1.0-2.8); Alkaline Phosphatase 92 U/L (38-126); Aspartate Aminotransferase 27 IU/L (14-36); Bilirubin Total 0.2 mg/dL (0.2-1.3); Blood Urea Nitrogen 36 mg/dL (7-17); C-Reactive Protein Quant < 0.5 mg/dL (<1.0); Calcium 9.5 mg/dL (8.4-10.2); Carbon Dioxide 22 mmol/L (22-32); Chloride 106 mmol/L (98-107); Estimated Glomerular Filt Rate 30.6 mL/min (>60); Globulin 2.3 g/dL (1.7-4.1); Glucose 149 mg/dL (80-110); HEMOLYSIS < 15 (0-50); Potassium 4.7 mmol/L (3.4-5.1); Sodium 137 mmol/L (137-145); Total Protein 6.2 g/dL (6.3-8.2)
[2021-11-11 13:04] LABS: Free T4, Direct Thyroxine 1.35 ng/dL (0.78-2.19)
== END ==
PROVIDERS: Family Provider Internal Medicine; PCP Internal Medicine; Referring Provider Physician Assistant Medical; Visit Provider Physician Assistant Medical
DX: M06.09 Rheumatoid arthritis without rheumatoid factor, multiple sites (principal); E11.40 Type 2 diabetes mellitus with diabetic neuropathy, unspecified; Z51.81 Encounter for therapeutic drug level monitoring
CPT/HCPCS: 36415; 80053; 83036; 84439; 84443; 85025; 85651; 86140

== ENCOUNTER → 2022-07-26 13:13 | Outpatient (CLI) | payer OTHER, SELFPAY ==
[2020-06-25 20:46] VITALS: BMI 34.7
[2022-07-26 14:03] LABS: Add Manual Diff / Slide Review NO; Basophils Absolute Auto 0 /uL (0-100); Basophils Percent Auto 0.2 % (0-2); Eosinophils Absolute Auto 400 /uL (0-450); Eosinophils Percent Auto 3.3 % (2-4); Hematocrit 27.9 % (36-46); Hemoglobin 8.4 g/dL (12.0-16.0); Lymphocytes Absolute Auto 2200 /uL (1100-4500); Lymphocytes Percent Auto 20.9 % (25-40); Mean Corpuscular HGB Conc 30.1 % (30-36); Mean Corpuscular Hemoglobin 21.2 PG (26-34); Mean Corpuscular Volume 70.3 fL (80-100); Monocytes Absolute Auto 700 /uL (0-900); Monocytes Percent Auto 6.4 % (3-14); Neutrophils Absolute Auto 7400 /uL (1500-7000); Neutrophils Percent Auto 69.2 % (50-75); Platelet Count 232 X10^3/uL (150-400); Red Blood Cell Count 3.97 X10^6/uL (4.0-5.2); Red Cell Distribution Width 19.9 % (11.6-14.8); White Blood Cell Count 10.7 X10^3/uL (4.5-11.0)
[2022-07-26 14:16] LABS: Alanine Aminotransferase 15 IU/L (<35); Albumin 3.6 g/dL (3.5-5.0); Albumin Globulin Ratio 1.3 (1.0-2.8); Alkaline Phosphatase 70 U/L (38-126); Aspartate Aminotransferase 30 IU/L (14-36); BUN Creatinine Ratio 18.3 (6-22); Bilirubin Total 0.2 mg/dL (0.2-1.3); Blood Urea Nitrogen 34 mg/dL (7-17); C-Reactive Protein Quant < 0.5 mg/dL (<1.0); Calcium 8.7 mg/dL (8.4-10.2); Carbon Dioxide 16 mmol/L (22-32); Chloride 107 mmol/L (98-107); Estimated Glomerular Filt Rate 28 mL/min (>60); Globulin 2.8 g/dL (1.7-4.1); Glucose 158 mg/dL (80-110); HEMOLYSIS < 15 (0-50); Potassium 4.6 mmol/L (3.4-5.1); Sodium 137 mmol/L (137-145); Total Protein 6.4 g/dL (6.3-8.2)
[2022-07-26 14:20] LABS: Erythrocyte Sedimentation Rate 32 MM/HR (0-20)
[2022-07-26 14:27] LABS: Hemoglobin A1C% w Est Avg Glu 7.6 % (4.0-6.0)
[2022-07-26 14:42] LABS: Thyroid Stimulating Hormone 1.77 uIU/mL (0.47-4.68)
== END ==
PROVIDERS: Family Provider Internal Medicine; PCP Internal Medicine; Referring Provider Physician Assistant Medical; Visit Provider Physician Assistant Medical
DX: M06.09 Rheumatoid arthritis without rheumatoid factor, multiple sites (principal); Z51.81 Encounter for therapeutic drug level monitoring; I48.0 Paroxysmal atrial fibrillation; Z79.4 Long term (current) use of insulin; E11.40 Type 2 diabetes mellitus with diabetic neuropathy, unspecified
CPT/HCPCS: 36415; 80053; 83036; 84443; 85025; 85651; 86140